=== PATIENT | male | born 1935 | race Hispanic/Latino ===

== ENCOUNTER 2017-10-16 13:02 | Emergency (ER) | payer OTHER ==
--- OUTSIDE RECORDS SUMMARY | 2017-10-16 13:05 | XMS REPORT | Clinical Summary ---
:1935 Author Organization [facility] Address [address] [place] [address] Phone Care Team Providers Name Role Phone Unavailable Primary Care Provider Unavailable Allergies Active Allergy Reactions Severity Noted Date Comments Enalapril Hives, Itching 01/16/2015 Current Medications Prescription Sig. Disp. Refills Start Date End Date Status aspirin 81 MG EC tablet Take 81 mg by Active mouth daily. atorvastatin (LIPITOR) 40 Take 40 mg by Active MG tablet mouth daily. tamsulosin (FLOMAX) 0.4 mg Take 0.4 mg by Active Cp24 24 hr capsule mouth daily. 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/07/2016 Aortic stenosis 01/19/2015 HTN (hypertension) 01/19/2015 Cancer of prostate (HCC) 01/19/2015 Asthma 01/19/2015 TIA (transient ischemic attack) 01/19/2015 HLD (hyperlipidemia) 01/19/2015 Patient is Pentecostalism 01/19/2015 Family History Medical History Relation Name Comments Asthma Father Stroke Father Seizures Mother Diabetes Sister Relation Name Status Comments Father Mother Sister Social History Tobacco Use Types Packs/Day Years Used Date Former Smoker Quit: 03/07/1972 Alcohol Use Drinks/Week oz/Week Comments Yes rarely Sex Assigned at Date Recorded Not on file Last Filed Vital Signs Not on file Plan of Treatment Health Maintenance Due Date Last Done Comments INFLUENZA VACCINE 12/05/2017 Implants Implanted Type Area Commercial Real Estate Lender Device Expiration Model / Identifier Date Serial / Lot Guzman Jayden Xt Transcatheter Heart Valve Valves N/A: GUZMAN 2015 [id number] / Implanted: Qty: 1 on 02/12/2015 by Dank Valladares MD [employer] [id number] / Results Not on fileafter 10/15/2016
[2017-10-16 13:52] LABS: Absolute Lymphocytes (CBC) 1.4 K/uL (0.7-4.9); Absolute Monocytes 0.7 K/uL (0.1-1.3); Absolute Neutrophil 5.8 K/uL (1.8-8.0); Basophils % 1.1 % (0-1.3); Eosinophils % 1.8 % (0-4.4); Hematocrit 45.4 % (39.6-49.0); Lymphocytes % 17.5 % (15.3-44.8); MCH 31.4 pg (27.0-35.0); MCV 90.5 fL (80-100); MPV 9.5 fL (7.6-11.3); Monocytes % 8.6 % (3.3-12.3); RBC Red Blood Cell Count 5.02 M/uL (4.33-5.43)
[2017-10-16 13:58] LABS: Protime INR 1.02
[2017-10-16 14:16] LABS: ALT/SGPT 17 U/L (12-78); AST/SGOT 16 U/L (15-37); Albumin 3.6 g/dL (3.4-5.0); Alkaline Phosphatase 81 U/L (45-117); BUN Blood Urea Nitrogen 15 mg/dL (7-18); Bicarbonate 28 mmol/L (21-32); Bilirubin Direct 0.2 mg/dL (0-0.2); Bilirubin Total 1.5 mg/dL (0.2-1.0); CKMB Creatine Kinase MB < 1.0 ng/mL (0.3-3.6); Creatine Phosphokinase 41 U/L (39-308); Glucose Level 119 mg/dL (74-106); Magnesium 2.1 mg/dL (1.8-2.4); NT PRO-BNP 820 pg/mL (<450); Potassium 3.9 mmol/L (3.5-5.1); Protein, Total 6.8 g/dL (6.4-8.2); Sodium Level 139 mmol/L (136-145)
--- NOTE | 2017-10-16 14:46 | RAD REPORT ---
EXAM DESCRIPTION: RAD - Chest Single View - 10/16/2017 2:20 pm CLINICAL HISTORY: Dizziness, diaphoretic, shortness of breath COMPARISON: October 10, 2016 TECHNIQUE: AP portable chest image was obtained 1409 hours . FINDINGS: No new failure, infiltrate or mass. Patient has dense calcified plaquing changes in the izaiah ng pedersen, left greater than right. Sternotomy wires are in place. Heart and vasculature are normal. No measurable pleural effusion and no pneumothorax. No gross bony abnormality seen. No acute aortic f indings suspected. IMPRESSION: Chronic pleural and parenchymal changes are present. No acute finding or significant change from October 2016.
--- NOTE | 2017-10-16 16:32 | EDPHYS ---
Physician Documentation [facility] Name: Rusty Yarbrough Age: 82 yrs Sex: Male : 1935 Arrival Date: 10/16/2017 Time: 13:05 Bed 7 Private MD: Shawn Perry E ED Physician Joe Guerrier HPI: 10/16 14:00 This 82 yrs old Male presents to ER via Ambulatory with complaints of Sweating.pm1 14:00 Patient presents to ER with complaints of sweating that started yesterday. Patient was pm1 seen by Dr. Perry Tuesday and his medications metoprolol, metformin, gabapentin, and atorvastatin were discontinued because he was told that he does not need to take them anymore. The patient's only medication is Tramadol PRN. Patient has continued to take some of his medications out of habit since Tuesday. Patient has not taken the metoprolol but has continued to take metformin, gabapentin, and atorvastatin. The family believes that his episodes of sweating might be due to hypoglycemia and have been resolved with eating. The patient ate a snack prior to coming to the ER and does not have any complaints. Patient denies any chest pain, shortness of breath, headache, or weakness. Historical: - Allergies: 13:15 Enalapril; aj1 - Home Meds: 13:15 atorvastatin 20 mg Oral tab [Active]; clopidogrel 75 mg Oral tab [Active]; aj1 cyclobenzaprine 10 mg Oral tab 1 tab 3 times per day [Active]; methocarbamol 500 mg Oral tab [Active]; metoprolol tartrate 25 mg Oral tab 1 tab 2 times per day [Active]; - PMHx: 13:15 "heart valve replacement"; Hyperlipidemia; Hypertension; Myocardial infarction; aj1 - PSHx: 13:51 Disc surgery; sv - Immunization history:: Flu vaccine status is unknown. - Social history:: Smoking status: Patient/guardian denies using tobacco. - Ebola Screening: : Patient denies travel to an Ebola-affected area in the 21 days before illness onset. ROS: 14:00 Constitutional: Negative for fever, chills, and weight loss, Eyes: Negative for injury, pm1 pain, redness, and discharge, ENT: Negative for injury, pain, and discharge, Neck: Negative for injury, pain, and swelling, Cardiovascular: Negative for chest pain, palpitations, and edema, Respiratory: Negative for shortness of breath, cough, wheezing, and pleuritic chest pain, Abdomen/GI: Negative for abdominal pain, nausea, vomiting, diarrhea, and constipation, Back: Negative for injury and pain, : Negative for injury, bleeding, discharge, and swelling, MS/Extremity: Negative for injury and deformity, Skin: Negative for injury, rash, and discoloration, Neuro: Negative for headache, weakness, numbness, tingling, and seizure. Exam: 14:00 Constitutional: This is a well developed, well nourished patient who is awake, alert, pm1 and in no acute distress. Head/Face: Normocephalic, atraumatic. Eyes: Pupils equal round and reactive to light, extra-ocular motions intact. Lids and lashes normal. Conjunctiva and sclera are non-icteric and not injected. Cornea within normal limits. Periorbital areas with no swelling, redness, or edema. ENT: Nares patent. No nasal discharge, no septal abnormalities noted. Tympanic membranes are normal and external auditory canals are clear. Oropharynx with no redness, swelling, or masses, exudates, or evidence of obstruction, uvula midline. Mucous membranes moist. Neck: Trachea midline, no thyromegaly or masses palpated, and no cervical lymphadenopathy. Supple, full range of motion without nuchal rigidity, or vertebral point tenderness. No Meningismus. Chest/axilla: Normal chest wall appearance and motion. Nontender with no deformity. No lesions are appreciated. Cardiovascular: Regular rate and rhythm with a normal S1 and S2. No gallops, murmurs, or rubs. No pulse deficits. Respiratory: Lungs have equal breath sounds bilaterally, clear to auscultation and percussion. No rales, rhonchi or wheezes noted. No increased work of breathing, no retractions or nasal flaring. Abdomen/GI: Soft, non-tender, with normal bowel sounds. No distension or tympany. No guarding or rebound. No evidence of tenderness throughout. Back: No spinal tenderness. No costovertebral tenderness. Full range of motion. Skin: Warm, dry with normal turgor. Normal color with no rashes, no lesions, and no evidence of cellulitis. MS/ Extremity: Pulses equal, no cyanosis. Neurovascular intact. Full, normal range of motion. 14:00 Neuro: Orientation: is normal, Mentation: is normal, Cerebellar function: normal finger to nose testing, Motor: is normal, Sensation: is normal, no obvious gross deficits. Vital Signs: 13:15 BP 145 / 90; Pulse 77; Resp 18; Temp 97.6; Pulse Ox 94% on R/A; Weight 87.09 kg (R); aj1 Pain 0/10; 14:07 BP 122 / 62; Pulse 72; Resp 18; Pulse Ox 97% ; sv 14:51 BP 137 / 83; Pulse 67; Resp 18; Pulse Ox 95% on R/A; dh3 15:44 BP 125 / 77; Pulse 73; Resp 19; Pulse Ox 96% ; sv 16:49 BP 128 / 76; Pulse 70; Resp 18; Pulse Ox 99% ; sv MDM: 13:26 Patient medically screened. pm1 16:28 Data reviewed: vital signs. Data interpreted: Pulse oximetry: on room air is 96 %. pm1 Interpretation: normal. Counseling: I had a detailed discussion with the patient and/or guardian regarding: the historical points, exam findings, and any diagnostic results supporting the discharge/admit diagnosis, lab results, radiology results, the need for outpatient follow up, to return to the emergency department if symptoms worsen or persist or if there are any questions or concerns that arise at home. 16:28 ED course: Patient without any symptoms of sweating during ER visit and the patient did pm1 not have any other complaints. Patient wants to go home and does not feel a need to stay in the hospital. I believe that the patient might have some mild hypoglycemia that was appropriately treated with food. Instructed the patient and family to take his medications as directed by Dr. ePrry. 10/16 13:32 Order name: Basic Metabolic Panel; Complete Time: 14:46 pm1 10/16 13:32 Order name: CBC with Diff; Complete Time: 14:46 pm1 10/16 13:32 Order name: Ckmb; Complete Time: 14:46 pm1 10/16 13:32 Order name: CPK; Complete Time: 14:46 pm1 10/16 13:32 Order name: LFT's; Complete Time: 14:46 pm1 10/16 13:32 Order name: Magnesium; Complete Time: 14:46 pm1 10/16 13:32 Order name: NT PRO-BNP; Complete Time: 14:46 pm1 10/16 13:32 Order name: PT-INR; Complete Time: 14:46 pm1 10/16 13:32 Order name: Ptt, Activated; Complete Time: 14:46 pm1 10/16 13:32 Order name: Troponin (emerg Dept Use Only); Complete Time: 14:46 pm1 10/16 13:32 Order name: XRAY Chest (1 view); Complete Time: 14:46 pm1 10/16 13:32 Order name: EKG; Complete Time: 13:33 pm1 10/16 13:46 Order name: Glucose, Ancillary Testing; Complete Time: 14:46 EDMS 10/16 15:52 Order name: Glucose, Ancillary Testing; Complete Time: 15:58 EDMS 10/16 13:31 Order name: Fingerstick Glucose; Complete Time: 13:49 pm1 10/16 13:32 Order name: Cardiac monitoring; Complete Time: 13:49 pm1 10/16 13:32 Order name: EKG - Nurse/Tech; Complete Time: 14:19 pm1 10/16 13:32 Order name: IV Saline Lock; Complete Time: 13:49 pm1 10/16 13:32 Order name: Labs collected and sent; Complete Time: 13:49 pm1 10/16 13:32 Order name: O2 Per Protocol; Complete Time: 13:49 pm1 10/16 13:32 Order name: O2 Sat Monitoring; Complete Time: 13:49 pm1 Administered Medications: No medications were administered Point of Care Testing: Blood Glucose: 13:46 Blood Glucose: 119 mg/dL; sv 15:52 Blood Glucose: 118 mg/dL; sv Ranges: Critical Glucose Levels:Adult <50 mg/dl or >400 mg/dl <40 mg/dl or >180 mg/dl Disposition: 17:53 Co-signature as Attending Physician, Joe Guerrier MD. rn Disposition: 10/16/17 16:32 Discharged to Home. Impression: Person with feared health complaint in whom no diagnosis is made - Sweating. - Condition is Stable. - Medication Reconciliation Form, Thank You Letter form. - Follow up: Emergency Department; When: As needed; Reason: Worsening of condition. Follow up: Shawn Perry MD; When: 2 - 3 days; Reason: Recheck today's complaints, Continuance of care, Re-evaluation by your physician. - Problem is new. - Symptoms have improved. Signatures: Dispatcher [employer] EDNova Curtis RN RN aj1 Caryl Chairez RN RN Joe Paulino MD MD rn Marinas, Patrick, FINANCE SPECIALIST FINANCE SPECIALIST pm1 Corrections: (The following items were deleted from the chart) 16:50 16:32 10/16/2017 16:32 Discharged to Home. Impression: Person with feared health sv complaint in whom no diagnosis is made - Sweating. Condition is Stable. Forms are Medication Reconciliation Form, Thank You Letter, Antibiotic Education, Prescription Opioid Use. Follow up: Emergency Department; When: As needed; Reason: Worsening of condition. Follow up: Shawn Perry; When: 2 - 3 days; Reason: Recheck today's complaints, Continuance of care, Re-evaluation by your physician. Problem is new. Symptoms have improved. pm1
--- NOTE | 2017-10-16 16:32 | ER ---
Nurse's Notes [facility] Name: Rusty Yarbrough Age: 82 yrs Sex: Male : 1935 Arrival Date: 10/16/2017 Time: 13:05 Bed 7 Private MD: Shawn Perry E Diagnosis: Person with feared health complaint in whom no diagnosis is made-Sweating Presentation: 10/16 13:12 Presenting complaint: Child states: He has been having episode where he is suddenly aj1 very sweaty since yesterday. Denies chest pain, denies shortness of breath, denies palpitations. States that each episode lasts 1-2 minutes and then resolves. Patient denies having any pain or shortness of breath during these episodes. Reports dizziness. Transition of care: patient was not received from another setting of care. Onset of symptoms was October 15, 2017. Risk Assessment: Do you want to hurt yourself or someone else? Patient reports no desire to harm self or others. Initial Sepsis Screen: Does the patient meet any 2 criteria? No. Patient's initial sepsis screen is negative. Does the patient have a suspected source of infection? No. Patient's initial sepsis screen is negative. Care prior to arrival: None. 13:12 Method Of Arrival: Ambulatory aj 13:12 Acuity: GAYLE 3 aj1 Triage Assessment: 13:15 General: Appears in no apparent distress. uncomfortable, Behavior is calm, cooperative, aj1 appropriate for age. Pain: Denies pain. Neuro: Level of Consciousness is awake, alert, obeys commands, Speech is normal, Facial symmetry appears normal, Reports dizziness. Cardiovascular: Reports diaphoresis, Denies chest pain, nausea, palpitations, shortness of breath, syncope, vomiting, Patient's skin is warm and dry. Respiratory: Airway is patent Respiratory effort is even, unlabored, Respiratory pattern is regular, symmetrical. Derm: Skin is pink, warm \\T\\ dry. normal. Historical: - Allergies: 13:15 Enalapril; aj1 - Home Meds: 13:15 atorvastatin 20 mg Oral tab [Active]; clopidogrel 75 mg Oral tab [Active]; aj1 cyclobenzaprine 10 mg Oral tab 1 tab 3 times per day [Active]; methocarbamol 500 mg Oral tab [Active]; metoprolol tartrate 25 mg Oral tab 1 tab 2 times per day [Active]; - PMHx: 13:15 "heart valve replacement"; Hyperlipidemia; Hypertension; Myocardial infarction; aj1 - PSHx: 13:51 Disc surgery; sv - Immunization history:: Flu vaccine status is unknown. - Social history:: Smoking status: Patient/guardian denies using tobacco. - Ebola Screening: : Patient denies travel to an Ebola-affected area in the 21 days before illness onset. Screenin:40 Abuse screen: Denies threats or abuse. Denies injuries from another. Abuse screen: sv Denies threats or abuse. Nutritional screening: No deficits noted. Tuberculosis screening: No symptoms or risk factors identified. Fall Risk None identified. Assessment: 13:40 General: Appears in no apparent distress. comfortable, well developed, Behavior is sv calm, cooperative, appropriate for age. General: Granddaughter reports she thinks that the pt's spouse gave him Metformin instead of Metoprolol yesterday and since yesterday has been having intermittent "sweating" episodes.. Pain: Denies pain. Neuro: Level of Consciousness is awake, alert, obeys commands, Oriented to person, place, time, situation, Moves all extremities. Full function Speech is normal. Cardiovascular: Patient's skin is warm and dry. Pulses are 3+ in right radial artery and left radial artery Rhythm is sinus rhythm with unifocal PVCs. Respiratory: Respiratory effort is even, unlabored, Respiratory pattern is regular, symmetrical. Derm: Skin is normal. Musculoskeletal: Range of motion: intact in all extremities. 14:08 Reassessment: Granddaughter stated that the pt's spouse gave him atorvastatin, sv gabapentin and tramadol. She states that he is not supposed to be taking atorvastatin or gabapentin. 15:52 Reassessment: Patient appears in no apparent distress at this time. No changes from sv previously documented assessment. Patient and/or family updated on plan of care and expected duration. Pain level reassessed. Patient is alert, oriented x 3, equal unlabored respirations, skin warm/dry/pink. 16:49 Reassessment: Patient appears in no apparent distress at this time. Patient and/or sv family updated on plan of care and expected duration. Pain level reassessed. Patient is alert, oriented x 3, equal unlabored respirations, skin warm/dry/pink. Vital Signs: 13:15 BP 145 / 90; Pulse 77; Resp 18; Temp 97.6; Pulse Ox 94% on R/A; Weight 87.09 kg (R); aj1 Pain 0/10; 14:07 BP 122 / 62; Pulse 72; Resp 18; Pulse Ox 97% ; sv 14:51 BP 137 / 83; Pulse 67; Resp 18; Pulse Ox 95% on R/A; dh3 15:44 BP 125 / 77; Pulse 73; Resp 19; Pulse Ox 96% ; sv 16:49 BP 128 / 76; Pulse 70; Resp 18; Pulse Ox 99% ; sv ED Course: 13:05 Patient arrived in ED. sb2 13:05 Shawn Perry MD is Private Physician. sb2 13:14 Triage completed. aj1 13:15 Arm band placed on Patient placed in an exam room. aj1 13:25 Gadiel Kellogg NP is PHCP. pm1 13:25 Joe Guerrier MD is Attending Physician. pm1 13:37 Caryl Chairez, HENRRY is Primary Nurse. sv 13:40 Patient has correct armband on for positive identification. Placed in gown. Bed in low sv position. Call light in reach. Side rails up X2. Adult w/ patient. telemetry monitor on. Pulse ox on. NIBP on. Door closed. Head of bed elevated. 13:45 Initial lab(s) drawn, by me, sent to lab. Inserted saline lock: 20 gauge in right sv antecubital area, using aseptic technique. Blood collected. Flushed right antecubital with 5 ml normal saline. 13:48 Awaiting lab results. sv 14:19 EKG done, by ED staff, reviewed by Joe Guerrier MD. hb 14:20 XRAY Chest (1 view) In Process Unspecified. EDMS 16:29 Shawn Perry MD is Referral Physician. pm1 16:50 No provider procedures requiring assistance completed. IV discontinued, intact, sv bleeding controlled, No redness/swelling at site. Pressure dressing applied. Administered Medications: No medications were administered Point of Care Testing: Blood Glucose: 13:46 Blood Glucose: 119 mg/dL; sv 15:52 Blood Glucose: 118 mg/dL; sv Ranges: Outcome: 16:32 Discharge ordered by . pm1 16:50 Discharged to home via wheelchair, with family. sv 16:50 Condition: stable 16:50 Discharge instructions given to patient, family, Instructed on discharge instructions, follow up and referral plans. Demonstrated understanding of instructions, follow-up care. 16:50 Patient left the ED. sv Signatures: Dispatcher [employer] EDNova Curtis RN RN aj1 Caryl Chairez RN RN sv Gadiel Kellogg, BLUEBERRY GROWER BLUEBERRY GROWER pm1 Yuki Aguilar RN RN Laya Lucas 3 Teresa Rosa 2 Corrections: (The following items were deleted from the chart) 14:10 14:07 Pulse 72bpm; Resp 18bpm; Pulse Ox 97%; sv sv
[2017-10-16 17:15] VITALS: TEMP 97.6
[2017-10-16 17:19] VITALS: BP 128/76; O2SAT 99
--- NOTE | 2017-10-17 05:43 | EKG ---
Test Date: 2017-10-16 Test Time: 14:13:10 Clinical Informatics Specialist: SWG MEASUREMENT RESULTS: Intervals: Rate: 68 NE: 200 QRSD: 94 QT: 362 QTc: 384 [place]: P: NE: 200 QRS: 7 T: 109 INTERPRETIVE STATEMENTS: Normal sinus rhythm with sinus arrhythmia Nonspecific T wave abnormality Abnormal ECG Compared to ECG 10/10/2016 09:44:27 Atrial premature complex(es) no longer present First degree AV block no longer present T-wave abnormality still present Electronically Signed On 10-17-17 05:42:31 CDT by Cedric Leonardo
== END 2017-10-16 16:50 | disposition home or self-care (01) ==
LOC: ER 13:02
DX: Z71.1 Person with feared health complaint in whom no diagnosis is made (principal); I10 Essential (primary) hypertension; I25.2 Old myocardial infarction; E78.5 Hyperlipidemia, unspecified; Z95.2 Presence of prosthetic heart valve; Z88.8 Allergy status to other drugs, medicaments and biological substances
CPT/HCPCS: 36415; 71045; 80048; 80076; 82550; 82553; 82962; 83735; 83880; 84484; 85025; 85610; 85730; 93005; 99284

== ENCOUNTER 2017-12-07 06:47 | Day surgery (SDC) | payer OTHER ==
--- NOTE | 2017-12-01 16:27 | RAD REPORT ---
EXAM DESCRIPTION: Gallo Arana And Vanessa (2 Views)12/01/2017 4:21 pm CLINICAL HISTORY: Preop for heart valve replacement COMPARISON: October 2017 FINDINGS: The lungs appear clear of acute infiltrate. The heart is mildly enlarged. Postsurgical changes involve the chest. Bilateral pleural calcifications are present IMPRESSION: No acute abnormalities displayed
[2017-12-01 16:55] LABS: Absolute Lymphocytes (CBC) 2.1 K/uL (0.7-4.9); Absolute Monocytes 0.5 K/uL (0.1-1.3); Absolute Neutrophil 4.2 K/uL (1.8-8.0); Basophils % 0.8 % (0-1.3); Eosinophils % 5.5 % (0-4.4); Hematocrit 46.4 % (39.6-49.0); Lymphocytes % 29.3 % (15.3-44.8); MCH 30.8 pg (27.0-35.0); MCV 92.4 fL (80-100); MPV 10.3 fL (7.6-11.3); Monocytes % 6.5 % (3.3-12.3); RBC Red Blood Cell Count 5.02 M/uL (4.33-5.43)
[2017-12-01 16:58] LABS: Protime INR 1.04
--- NOTE | 2017-12-01 22:27 | EKG ---
Test Date: 2017-12-01 Test Time: 16:08:08 Drill Grinder: GUERLINE MEASUREMENT RESULTS: Intervals: Rate: 55 IA: 256 QRSD: 100 QT: 416 QTc: 397 [place]: P: IA: 256 QRS: -10 T: 55 INTERPRETIVE STATEMENTS: Sinus bradycardia with sinus arrhythmia with 1st degree AV block Otherwise normal ECG Compared to ECG 10/16/2017 14:13:10 First degree AV block now present Sinus rhythm no longer present T-wave abnormality no longer present Electronically Signed On 12-01-17 22:26:33 CDT by Cedric Leonardo
--- OUTSIDE RECORDS SUMMARY | 2017-12-07 06:50 | XMS REPORT | Clinical Summary ---
:1935 Author Organization [facility] Address [address] [place] [address] Phone Care Team Providers Name Role Phone [...] attack) 01/19/2015 HLD (hyperlipidemia) 01/19/2015 Patient is Latter-day 01/19/2015 Family History Medical History Relation Name [...] INFLUENZA VACCINE 12/05/2017 Implants Implanted Type Area Certified Nurses Aide Device Expiration Model / Identifier Date Serial / Lot Guzman Jayden Xt Transcatheter Heart Valve Valves N/A: GUZMAN 2015 [id number] / Implanted: Qty: 1 on 02/12/2015 by Dank Valladares MD [employer] [id number] / Results Not on fileafter 12/06/2016
[2017-12-07] MEDS ORDERED: LIDOCAINE 1% MPF 30 ML VIAL ONE (07:15)
[2017-12-07] MEDS ORDERED: NA CHLORIDE 0.9% 500 ML ONE (07:15)
[2017-12-07] MEDS ORDERED: HEPA 1000U/500MLS 2,000 UNIT/1,000 ML BAG IV ONE (07:21)
[2017-12-07] MEDS ORDERED: NA CHLORIDE 0.9% 0 ML ONE (07:23)
[2017-12-07] MEDS ORDERED: ATROPINE SULF 1 MG/10 ML SYR IV ONE (07:23)
[2017-12-07] MEDS ORDERED: NA CHLORIDE 0.9% 100 ML IV ONE (07:23)
[2017-12-07] MEDS ORDERED: FENTANYL CITR 100 MCG/2 ML ONE (07:30)
[2017-12-07] MEDS ORDERED: MIDAZOLAM HCL 2 MG/2 ML INJ ONE (07:30)
[2017-12-07 10:41] VITALS: TEMP 97.7
[2017-12-07 12:45] VITALS: BP 104/65; O2SAT 92
--- NOTE | 2017-12-07 14:12 | OP ---
Surgeon: Cedric Leonardo MD Procedures: Left heart catheterization, right heart catheterization, coronary angiography. Indication: Severe aortic stenosis of a bioprosthetic aortic valve. Procedure Findings: The patient has normal coronary arteries. Left ventricular ejection fraction wa s not determined on echocardiography, it is more than 50%. His cardiac output was 3.5. The mean gra dient across the valve was 51 mmHg. The estimated aortic valve area 0.6 square cm. The right heart pressures were within normal limits to mildly elevated. PA pressure 35/16, wedge pressure 10. Right atrial pressure 10. The aortic pressure was 118/51, LV pressure 181/24. Left ventricular end-diast olic pressure mildly elevated. Procedure In Detail: The patient was brought to the cardiac lab manager in a fasting state, sedated wit h Versed and fentanyl. Prepared and draped in usual sterile fashion. Right femoral approach was use d for both artery and vein. We used lidocaine to anesthetize the skin. An 18-gauge needle to enter the right femoral artery, right femoral vein separately, each time modified Seldinger technique was u sed to place a 4-Arabic sheath in the right femoral artery and a 7-Arabic sheath in the right femoral vein. We used a [place]-Farnaz catheter. Thermodilution cardiac outputs, manometry pressure for right h eart measurements. We used a JL4 to angiogram the left ventricle. A JL4 to angiogram left coronary. JR4 to angiogram right coronary. We used a JR4 and femoral straight wire to cross the valve and me asure LV pressures. There was no LV-gram done. At the end of the procedure an angiogram was done of the right femoral artery. Adequate anatomy was seen. We did a closure using Angio-Seal. There were no complications from the procedure. KAYDEN/MACARIO Voice ID: [id number] Report ID: [id number]
== END 2017-12-07 12:30 | disposition home or self-care (01) ==
LOC: CCL 06:47
PROVIDERS: ATTEND Internal Medicine
DX: I35.0 Nonrheumatic aortic (valve) stenosis (principal); I10 Essential (primary) hypertension; E78.2 Mixed hyperlipidemia; Z95.2 Presence of prosthetic heart valve; Z87.891 Personal history of nicotine dependence
CPT/HCPCS: 36415; 71046; 80048; 85025; 85610; 85730; 93005; 93460; C1760; C1893; J2250; J3010; J0583

== ENCOUNTER 2017-12-13 13:28 | Emergency (ER) | payer OTHER ==
--- OUTSIDE RECORDS SUMMARY | 2017-12-13 13:30 | XMS REPORT | Clinical Summary ---
:1935 Author Organization [facility] Address [address] [place] [address] Phone Care Team Providers Name Role Phone [...] attack) 01/19/2015 HLD (hyperlipidemia) 01/19/2015 Patient is Alevism 01/19/2015 Family History Medical History Relation Name [...] INFLUENZA VACCINE 12/05/2017 Implants Implanted Type Area Umbrella Tipper Machine Device Expiration Model / Identifier Date Serial / Lot Guzman Jayden Xt Transcatheter Heart Valve Valves N/A: GUZMAN 2015 [id number] / Implanted: Qty: 1 on 02/12/2015 by Dank Valladares MD [employer] [id number] / Results Not on fileafter 12/12/2016
--- NOTE | 2017-12-13 14:59 | RAD REPORT ---
EXAM DESCRIPTION: Gallo Single View12/13/2017 2:38 pm CLINICAL HISTORY: Chest pain COMPARISON: November 2017 FINDINGS: The lungs appear clear of acute infiltrate. The heart is normal size. Postsurgical changes involve the chest. Calcified pleural plaques are noted. IMPRESSION: No acute abnormalities displayed
--- NOTE | 2017-12-13 15:04 | EKG ---
Test Date: 2017-12-13 Test Time: 13:39:09 Leather Goods Ii Assembler: NINA-Tien MEASUREMENT RESULTS: Intervals: Rate: 60 AR: 264 QRSD: 98 QT: 414 QTc: 414 [place]: P: 48 AR: 264 QRS: 0 T: 65 INTERPRETIVE STATEMENTS: Sinus rhythm with 1st degree AV block Otherwise normal ECG Compared to ECG 12/01/2017 16:08:08 Sinus bradycardia no longer present Sinus arrhythmia no longer present Electronically Signed On 12-13-17 15:04:13 CDT by Cedric Leonardo
[2017-12-13 15:51] LABS: ALT/SGPT 27 U/L (12-78); AST/SGOT 20 U/L (15-37); Albumin 3.3 g/dL (3.4-5.0); Alkaline Phosphatase 88 U/L (45-117); BUN Blood Urea Nitrogen 33 mg/dL (7-18); Bicarbonate 27 mmol/L (21-32); Bilirubin Direct 0.2 mg/dL (0-0.2); Bilirubin Total 0.6 mg/dL (0.2-1.0); Glucose Level 122 mg/dL (74-106); Magnesium 2.3 mg/dL (1.8-2.4); NT PRO-BNP 556 pg/mL (<450); Potassium 4.2 mmol/L (3.5-5.1); Protein, Total 6.6 g/dL (6.4-8.2); Sodium Level 143 mmol/L (136-145); Troponin (Emerg Dept Use Only) < 0.02 ng/mL (0.0-0.045)
[2017-12-13 15:52] LABS: Absolute Lymphocytes (CBC) 2.4 K/uL (0.7-4.9); Absolute Monocytes 0.6 K/uL (0.1-1.3); Absolute Neutrophil 5.1 K/uL (1.8-8.0); Basophils % 0.6 % (0-1.3); Eosinophils % 4.6 % (0-4.4); Lymphocytes % 28.2 % (15.3-44.8); MCH 31.2 pg (27.0-35.0); MCV 92.7 fL (80-100); MPV 9.8 fL (7.6-11.3); Monocytes % 7.2 % (3.3-12.3); RBC Red Blood Cell Count 4.85 M/uL (4.33-5.43)
[2017-12-13 16:38] LABS: Protime INR 1.05
--- NOTE | 2017-12-13 17:06 | ER ---
Nurse's Notes [facility] Name: Rusty Yarbrough Age: 82 yrs Sex: Male : 1935 Arrival Date: 12/13/2017 Time: 13:29 Bed 17 Private MD: Diagnosis: Chest pain, unspecified Presentation: 12/13 13:31 Presenting complaint: Patient states: episode of left-sided chest pain that lasted aa5 approximately 4 minutes yesterday. Pt denies any chest pain at this time. 13:31 Transition of care: patient was not received from another setting of care. Onset of aa5 symptoms was December 2017. Risk Assessment: Do you want to hurt yourself or someone else? Patient reports no desire to harm self or others. Initial Sepsis Screen: Does the patient meet any 2 criteria? No. Patient's initial sepsis screen is negative. Does the patient have a suspected source of infection? No. Patient's initial sepsis screen is negative. Care prior to arrival: None. 13:31 Method Of Arrival: Ambulatory aa5 13:31 Acuity: GAYLE 3 aa5 Historical: - Allergies: 13:32 Enalapril; aa5 - PMHx: 13:32 Hyperlipidemia; Hypertension; Myocardial infarction; aa5 - PSHx: 13:32 Disc surgery; Heart Valve replacement; Heart stents; aa5 - Immunization history:: Adult Immunizations unknown. - Social history:: Smoking status: Patient/guardian denies using tobacco. - Ebola Screening: : No symptoms or risks identified at this time. Screenin:07 Abuse screen: Denies threats or abuse. Denies injuries from another. Nutritional ch screening: No deficits noted. Tuberculosis screening: No symptoms or risk factors identified. Fall Risk None identified. Assessment: 15:07 General: Appears in no apparent distress. comfortable, Behavior is calm, cooperative, ch appropriate for age. Pain: Denies pain. Neuro: No deficits noted. Cardiovascular: Heart tones S1 S2 present Capillary refill < 3 seconds in bilateral fingers Clubbing of nail beds is present JVD is present bilaterally Patient's skin is warm and dry. Pulses are all present. Edema is absent. Rhythm is sinus bradycardia. Respiratory: Airway is patent Respiratory effort is even, unlabored, Breath sounds are clear bilaterally. GI: No signs and/or symptoms were reported involving the gastrointestinal system. 16:33 Reassessment: Patient appears in no apparent distress at this time. Patient and/or ch family updated on plan of care and expected duration. Pain level reassessed. Patient is alert, oriented x 3, equal unlabored respirations, skin warm/dry/pink. Patient denies pain at this time. Patient states feeling better. Patient states symptoms have improved. Vital Signs: 13:33 BP 122 / 68; Pulse 62; Resp 18 S; Temp 98.0(TE); Pulse Ox 98% on R/A; Weight 79.38 kg aa5 (R); Height 5 ft. 10 in. (177.80 cm) (R); Pain 0/10; 16:12 BP 135 / 90; Pulse 58; Resp 16; Pulse Ox 96% on R/A; mh5 16:33 BP 133 / 58; Pulse 64; Resp 18; Temp 98.3; Pulse Ox 99% on R/A; Pain 0/10; ch 13:33 Body Mass Index 25.11 (79.38 kg, 177.80 cm) aa5 ED Course: 13:29 Patient arrived in ED. as 13:31 Arm band placed on Patient placed in an exam room, on a stretcher. aa5 13:38 Wale Land MD is Attending Physician. gs 13:40 EKG completed in triage. Results shown to MD. aa5 13:41 Triage completed. aa5 13:55 EKG done, by maintenance mechanic technician. reviewed by Wale Land MD. dt2 14:35 X-ray completed. Portable x-ray completed in exam room. Patient tolerated procedure ml well. 14:35 No provider procedures requiring assistance completed. Missed attempt(s): 22 gauge in ch left in right wrist. Bleeding controlled, band aid applied, catheter tip intact. 14:35 Patient maintains SpO2 saturation greater than 95% on room air. ch 14:37 XRAY Chest (1 view) In Process Unspecified. EDMS 15:06 Erin Nieves, RN is Primary Nurse. ch 15:07 Patient has correct armband on for positive identification. Placed in gown. Bed in low ch position. Call light in reach. Side rails up X 1. phototypesetting equipment monitor on. Pulse ox on. NIBP on. Warm blanket given. 15:08 No apparent distress. Resting quietly. ch 15:10 Initial lab(s) drawn, by me, sent to lab. Inserted saline lock: 22 gauge in right aa5 forearm, using aseptic technique. Blood collected. 17:05 Cedric Leonardo MD is Referral Physician. 17:30 IV discontinued, intact, bleeding controlled, No redness/swelling at site. Pressure ch dressing applied. Administered Medications: No medications were administered Outcome: 17:06 Discharge ordered by MD. 17:30 Discharged to home ambulatory, with family. 17:30 Condition: stable 17:30 Discharge instructions given to patient, family, Instructed on discharge instructions, follow up and referral plans. medication usage, Demonstrated understanding of instructions, follow-up care, medications. 17:34 Patient left the ED. Signatures: Dispatcher [employer] EDMS Erin Nieves RN RN Mariaa Collier Melissa ml Calderon, Audri, RN RN [facility] Anshu, Yamila [facility] Wale Land MD MD gs Teague, Danielle dt2
--- NOTE | 2017-12-13 17:07 | EDPHYS ---
Physician Documentation [facility] Name: Rusty Yarbrough Age: 82 yrs Sex: Male : 1935 Arrival Date: 12/13/2017 Time: 13:29 Bed 17 Private MD: ED Physician Wale Land HPI: 12/13 16:56 This 82 yrs old Male presents to ER via Ambulatory with complaints of Chest gs Pain, Urinary Problem. 16:56 The patient or guardian reports chest pain that is located primarily in the substernal gs area. Onset: yesterday. The pain does not radiate. Associated signs and symptoms: Pertinent negatives: shortness of breath. The chest pain is described as a heaviness. Duration: The patient or guardian reports a single episode, that lasted 3 minute(s). Modifying factors: The symptoms are alleviated by nothing. the symptoms are aggravated by nothing. Severity of pain: At its worst the pain was moderate in the emergency department the pain has resolved yesterday. The patient has experienced similar episodes in the past, a few times. The patient has been recently seen by a physician: Dr. LEONARDO HAD STENT PLACED 2 WEEKS AGO. Historical: - Allergies: 13:32 Enalapril; aa5 - PMHx: 13:32 Hyperlipidemia; Hypertension; Myocardial infarction; aa5 - PSHx: 13:32 Disc surgery; Heart Valve replacement; Heart stents; aa5 - Immunization history:: Adult Immunizations unknown. - Social history:: Smoking status: Patient/guardian denies using tobacco. - Ebola Screening: : No symptoms or risks identified at this time. ROS: 16:56 : Positive for hematuria, FEWS DAYS AGO SINGULAR INCIDENT. gs 16:56 All other systems are negative. Exam: 16:56 Head/Face: Normocephalic, atraumatic. Eyes: Pupils equal round and reactive to light, gs extra-ocular motions intact. Lids and lashes normal. Conjunctiva and sclera are non-icteric and not injected. Cornea within normal limits. Periorbital areas with no swelling, redness, or edema. ENT: Nares patent. No nasal discharge, no septal abnormalities noted. Tympanic membranes are normal and external auditory canals are clear. Oropharynx with no redness, swelling, or masses, exudates, or evidence of obstruction, uvula midline. Mucous membranes moist. Neck: Trachea midline, no thyromegaly or masses palpated, and no cervical lymphadenopathy. Supple, full range of motion without nuchal rigidity, or vertebral point tenderness. No Meningismus. Chest/axilla: Normal chest wall appearance and motion. Nontender with no deformity. No lesions are appreciated. Respiratory: Lungs have equal breath sounds bilaterally, clear to auscultation and percussion. No rales, rhonchi or wheezes noted. No increased work of breathing, no retractions or nasal flaring. Abdomen/GI: Soft, non-tender, with normal bowel sounds. No distension or tympany. No guarding or rebound. No evidence of tenderness throughout. Back: No spinal tenderness. No costovertebral tenderness. Full range of motion. Skin: Warm, dry with normal turgor. Normal color with no rashes, no lesions, and no evidence of cellulitis. MS/ Extremity: Pulses equal, no cyanosis. Neurovascular intact. Full, normal range of motion. Neuro: Awake and alert, GCS 15, oriented to person, place, time, and situation. Cranial nerves II-XII grossly intact. Motor strength 5/5 in all extremities. Sensory grossly intact. Cerebellar exam normal. Normal gait. 16:56 Constitutional: The patient appears in no acute distress, alert, awake. 16:56 Cardiovascular: Rate: normal, Rhythm: regular, Pulses: no pulse deficits are appreciated, Heart sounds: murmur, systolic. 16:56 ECG was reviewed by the Attending Physician. Vital Signs: 13:33 BP 122 / 68; Pulse 62; Resp 18 S; Temp 98.0(TE); Pulse Ox 98% on R/A; Weight 79.38 kg aa5 (R); Height 5 ft. 10 in. (177.80 cm) (R); Pain 0/10; 16:12 BP 135 / 90; Pulse 58; Resp 16; Pulse Ox 96% on R/A; mh5 16:33 BP 133 / 58; Pulse 64; Resp 18; Temp 98.3; Pulse Ox 99% on R/A; Pain 0/10; ch 13:33 Body Mass Index 25.11 (79.38 kg, 177.80 cm) aa5 MDM: 14:32 Patient medically screened. 16:56 Differential diagnosis: acute myocardial infarction, coronary artery disease chest wall gs pain. Data reviewed: vital signs, nurses notes. Counseling: I had a detailed discussion with the patient and/or guardian regarding: the historical points, exam findings, and any diagnostic results supporting the discharge/admit diagnosis, lab results, radiology results, the need for outpatient follow up. Physician consultation: Cedric Leonardo MD regarding patient's condition, and will see patient in office. 12/13 13:59 Order name: Basic Metabolic Panel 12/13 13:59 Order name: CBC with Diff; Complete Time: 16:16 12/13 13:59 Order name: LFT's 12/13 13:59 Order name: Magnesium 12/13 13:59 Order name: NT PRO-BNP 12/13 13:59 Order name: PT-INR; Complete Time: 16:50 12/13 13:59 Order name: Troponin (emerg Dept Use Only); Complete Time: 16:16 12/13 13:59 Order name: XRAY Chest (1 view); Complete Time: 15:00 12/13 13:59 Order name: EKG; Complete Time: 14:00 12/13 14:00 Order name: Basic Metabolic Panel; Complete Time: 16:16 EDMS 12/13 14:00 Order name: Liver (Hepatic) Function; Complete Time: 16:16 EDMS 12/13 14:00 Order name: Magnesium; Complete Time: 16:16 EDMS 12/13 14:00 Order name: NT PRO-BNP; Complete Time: 16:16 EDMS 12/13 13:59 Order name: Cardiac monitoring; Complete Time: 15:17 12/13 13:59 Order name: EKG - Nurse/Tech; Complete Time: 15:17 12/13 13:59 Order name: IV Saline Lock; Complete Time: 15:17 12/13 13:59 Order name: Labs collected and sent; Complete Time: 15:17 12/13 13:59 Order name: O2 Per Protocol; Complete Time: 15:17 12/13 13:59 Order name: O2 Sat Monitoring; Complete Time: 15:17 gs EC:56 Rate is 60 beats/min. Rhythm is regular. ID interval is prolonged. QRS interval is gs normal. QT interval is normal. T waves are Normal. Clinical impression: Abnormal EKG without significant change. Interpreted by me. Administered Medications: No medications were administered Disposition: 12/13/17 17:06 Discharged to Home. Impression: Chest pain, unspecified. - Condition is Stable. - Discharge Instructions: Nonspecific Chest Pain. - Medication Reconciliation Form, Thank You Letter, Antibiotic Education, Prescription Opioid Use form. - Follow up: Cedric Leonardo MD; When: 2 - 3 days; Reason: Re-evaluation by your physician. Signatures: Dispatcher [employer] EDMS Erin Nieves RN RN Karyn Foley RN RN aa5 Wale Land MD MD gs Corrections: (The following items were deleted from the chart) 17:34 17:06 12/13/2017 17:06 Discharged to Home. Impression: Chest pain, unspecified. ch Condition is Stable. Forms are Medication Reconciliation Form, Thank You Letter, Antibiotic Education, Prescription Opioid Use. Follow up: Cedric Leonardo; When: 2 - 3 days; Reason: Re-evaluation by your physician. gs
[2017-12-13 18:01] VITALS: BP 133/58; TEMP 98.3; O2SAT 99
== END 2017-12-13 17:34 | disposition home or self-care (01) ==
LOC: ER 13:28
DX: R07.9 Chest pain, unspecified (principal); I10 Essential (primary) hypertension; I25.2 Old myocardial infarction; Z88.8 Allergy status to other drugs, medicaments and biological substances; Z95.2 Presence of prosthetic heart valve; Z95.818 Presence of other cardiac implants and grafts
CPT/HCPCS: 36415; 71045; 80048; 80076; 83735; 83880; 84484; 85025; 85610; 93005; 99285

== ENCOUNTER 2018-02-20 12:31 | Inpatient (IN) | payer OTHER ==
--- OUTSIDE RECORDS SUMMARY | 2018-02-20 12:32 | XMS REPORT | Clinical Summary ---
:1935 Author Organization [facility] Address [address] [place] [address] Care Team Providers Name Role Phone Provider, Unknown Primary Care Provider Unavailable Allergies No Known Allergies Medications Medication Sig Dispensed Refills Start Date End Date Status metoprolol tartrate Take 25 mg by 0 11/14/2017 Active (LOPRESSOR) 25 mg mouth 2 (two) tablet times a day. traMADol (ULTRAM) 50 Take 50 mg by 0 12/14/2017 Active mg tablet mouth every 6 (six) hours as needed. apixaban (ELIQUIS) 5 Take 1 tablet (5 180 tablet 1 12/28/2017 Active mg tablet mg total) by mouth 2 (two) times a day. Active Problems Problem Noted Date S/P aortic valve replacement with bioprosthetic valve 12/21/2017 Overview: Chronically elevated AV gradients ~ 3.3 m/s since at least 2014. Essential hypertension 12/21/2017 Encounters Date Type Specialty Care Team Description 01/04/2018 Orders Only Cardiology Therese, Nonrheumatic aortic valve stenosis (Primary Dx); KAYE Child S/P AVR 12/28/2017 Telephone Cardiology Jacey pharm phone number Luis Stephen MD 12/28/2017 Refill Cardiology Jacey Med Refill Luis Stephen MD 12/22/2017 Telephone Cardiology Jacey Pt to start eliquis Luis Stephen, 5mg bid and have MD cta in 3 months. 12/21/2017 Telephone Cardiology lissy Garcia on CTA [place] 12/20/2017 Multidisciplinary Visit Cardiology Camilo Mariheumatic aortic valve stenosis (Primary Dx); Luis H., S/P aortic valve replacement with bioprosthetic valve; Essential hypertension 12/20/2017 Office Visit Cardiovascular Elia Cortes MD 12/20/2017 Hospital Encounter Procedural Carlos, Nonrheumatic aortic Cardiology Elia valve stenosis MD Donta 12/20/2017 Hospital Encounter Procedural Carlos, Cardiology Elia Longo MD 12/08/2017 Orders Only Cardiovascular Rachael Bentley, Nonrheumatic aortic valve stenosis (Primary Dx); RN Preoperative respiratory examination after 02/19/2017 Family History Medical History Relation Name Comments Heart attack Father Relation Name Status Comments Father Mother Social History Tobacco Use Types Packs/Day Years Used Date Never Smoker Smokeless Tobacco: Never Used Alcohol Use Drinks/Week oz/Week Comments No Sex Assigned at Date Recorded Not on file Job Start Date Occupation Industry Not on file Not on file Not on file Travel History Travel Start Travel End No recent travel history available. Last Filed Vital Signs Vital Sign Reading Time Taken Blood Pressure 162/69 12/20/2017 2:05 PM CDT Pulse 40 12/20/2017 2:05 PM CDT Temperature 36.3 C (97.4 F) 12/20/2017 2:05 PM CDT Respiratory Rate 14 12/20/2017 2:05 PM CDT Oxygen Saturation - - Inhaled Oxygen Concentration - - Weight 79.4 kg (175 lb) 12/20/2017 2:05 PM CDT Height 175.3 cm (5' 9") 12/20/2017 2:05 PM CDT Body Mass Index 25.84 12/20/2017 2:05 PM CDT Plan of Treatment Date Type Specialty Care Team Description 03/21/2018 Multidisciplinary Visit Cardiology Luis Mari MD [address] [facility] [address] [place] [address] [phone] 06/20/2018 Multidisciplinary Visit Cardiology Luis Mari MD [address] [facility] [address] [place] [address] Health Maintenance Due Date Last Done Comments SHINGLES VACCINES (1 of 2) 1983 PNEUMOCOCCAL POLYSACCHARIDE VACCINE AGE 65 AND OVER 1998 PNEUMOCOCCAL-13 1998 INFLUENZA VACCINE 10/05/2017 Procedures Procedure Name Priority Date/Time Associated Diagnosis Comments ECG 12-LEAD Routine 12/20/2017 2:04 Nonrheumatic aortic Results for this PM CDT valve stenosis procedure are in the results section. CV CTA TAVR WORKUP Routine 12/20/2017 1:34 Nonrheumatic aortic Results for this (CTA CORONARY,CTA PM CDT valve stenosis procedure are in THORACIC AORTA,CTA the results ABDOMEN PELVIS) W section. CONTRAST POC CREATININE Routine 12/20/2017 12:39 Results for this PM CDT procedure are in the results section. ESTIMATED GFR Routine 12/20/2017 12:39 Results for this PM CDT procedure are in the results section. ECHOCARDIOGRAM 2D Routine 12/20/2017 11:52 Results for this COMPLETE W MMODE AM CDT procedure are in SPECTRAL COLOR DOPPLER the results (03964) section. after 02/19/2017 Results ECG 12 lead (12/20/2017 2:04 PM CDT) Ventricular rate 70 [facility] Atrial rate 70 [facility] IL interval 178 [facility] QRSD interval 100 [facility] QT interval 414 [facility] QTC interval 447 [facility] P axis 1 42 [facility] QRS axis 1 -7 [facility] T wave axis 14 [facility] EKG impression Normal sinus rhythm-Normal ECG-No previous [facility] M[facility] ECGs available- Performing Organization Address City/State/[facility] Phone Number [facility] [address] [place] [address] tavr workup (cta coronary,cta thoracic aorta,cta abdomen pelvis) w contrast (12/20/2017 1:34 PM CDT) Narrative Performed At [facility] Nuclear Cardiology and Cardiac CT [address] [place] [address] CTA TAVR Protocol Pat.Name:Pretty STONE.ID:[id number] .Date: 12/20/2017Refer.MD:ELIA CORTES MD Exam Time: 12:37:00 PM Study Type:CTA TAVR Protocol Height:69inWeight: 180lb BSA: 1.98 m2 DOBAge:1935,82Y Sex: MALEBP:152/70 HR:65 bpm Nuclear Tech:RT María(R)(CT) Pat. Stat.:Outpatient CPT - 4: TAVR w Coronaries [id number] Nuclear Event ID:[id number] Order ID:[id number] Reason for Study:TAVR workup Procedures:CT Prospective (phases), CT Flash mode Race:C SUMMARY: Technique: IV contrast was administered and sequential 0.[address] cuts were obtained through the chest using the Siemens Somatom Force CT scanner. Post-processing and 3D reconstruction were done using the [employer] workstation. Interactive image viewing and volumetric display and analysis were also performed. 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 Left anterior descending (LAD): A normal sized 3.8mm artery which wraps around the apex and gives off three diagonal branches. No significantatherosclerotic plaque present. The first diagonal is a 1.8 mm artery which has no significant atherosclerotic plaque present. The second diagonal is a 1.5 mm artery which has no significant atherosclerotic plaque present. The third diagonal is a 1.0 mm artery which has no significant atherosclerotic plaque present. 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 Left circumflex: A normal sized 3.5 mm nondominant artery which arises normally from the left main and gives off two major obtuse marginal arteries before terminating in the AV groove. No significant atherosclerotic plaque present. The first obtuse marginal is a 2.2 mm artery which has no significant atherosclerotic plaque present. The second obtuse marginal is a 2.2 mm bifurcating artery which has no significant atherosclerotic plaque present. Right coronary artery: A normal sized 3.7 mm dominant artery which arises normally from the right sinus of Valsalva and gives off several right ventricular branches, a posterolateral branch and the posterior descending artery. No significantatherosclerotic plaque present. The posterior descending is a 3.0 mm artery which has no significant atherosclerotic plaque present. The posterolateral is a 1.7 mm artery which has no significant atherosclerotic plaque present. Stents: None. Bypass Grafts: None. Pulmonary Arteries: Normal pulmonary artery sizes with no proximal thrombus identified. Left Atrial and Pulmonary Vein Dimensions: Left atrial size (A-P diameter) 4.5 cm. Normal PV anatomy. Left superior PV14 mm. Left inferior PV18 mm. Right superior PV15 mm. Right inferior PV14 mm. There is no evidence of the left atrial appendage clot. Left Ventricular Valve Morphology/Function: LV septal wall thickness 15 mm. Moderate LVH. LV end-diastolic volume 75 ml. LV end-systolic volume 46 ml. LVEF39 %. There is a bio-prosthetic aortic valve without evidence of dehiscence or central aortic regurgitation. The noncoronary cusp is restricted and does not open fully in systole. 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 There is a low attenuation mass along the noncoronary and left cusp (HU 70-90) suggestive of thrombus. Mitral valve is normal without evidence of stenosis or regurgitation. Right Ventricular Morphology/Function: RV end-diastolic volume 137 ml. RV end-systolic volume 74 ml. RVEF 46 % Pericardium: No pericardium effusion or pericardial thickening. Thoracic Aortic Dimensions: No aortic aneurysm or dissection is seen. Aortic root3.8 cm. Sinotubular junction 3.0 cm. Mid ascending thoracic aorta 3.7 cm. Distal ascending thoracic aorta 3.3 cm. Aortic arch 2.7 cm.There is normal takeoff of the great vessels and no significant stenosis in the proximal visualized segments. Aortic Isthmus 2.7 cm. Descending thoracic aorta 2.9 cm. Upper abdominal Aorta: 2.5 cm with mild calcified and non-calcified atherosclerotic plaque. Celiac trunk: 6 mm with no significant stenosis. Superior mesenteric artery: 8 mm with no significant stenosis. Right renal artery: 6 mm with no significant stenosis. Left renal artery: 6 mm with no significant stenosis. Inferior mesenteric artery: 4 mm with no significant stenosis. Infrarenal aorta: 1.7 cm with mild calcified and non-calcified atherosclerotic plaque. TAVR Report Calcified Aorta: Mild Characterization of Aortic Root: Major aortic annulus diameter (systole): 32 mm Perpendicular minor aortic annulus diameter (systole): 26 mm Aortic annulus perimeter (systole): 93 mm Sinus of Valsalva height left coronary (diastole): 11 mm Sinus of Valsalva height right coronary (diastole): 16 mm Sinus of Valsalva diameter left coronary (diastole): 38 mm Sinus of Valsalva diameter non-coronary (diastole): 36 mm Sinus of Valsalva diameter right (diastole): 37 mm Maximum ascending aorta diameter at 40mm above annulus (diastole): 37 mm Aortic Root Angulation (diastole): 43 degrees Abdominal Aortic Aneurysm: No Thoracic Aortic Aneurysm: No Characterization of access vessels: Right Common Iliac: Minimum lumen diameter: 11 mm Percent stenosis: None Tortuosity: No Calcification: Mild Right External Iliac: Minimum lumen diameter: 8 mm Percent stenosis: None Tortuosity: No Calcification: No Right Femoral: Minimum lumen diameter: 6.5 mm Percent stenosis: None Tortuosity: Mild Calcification: Mild Left Common Iliac:Minimum lumen diameter: 10 mm Percent stenosis: None Tortuosity: No Calcification: Mild Left External Iliac: Minimum lumen diameter: 8 mm Percent stenosis: None Tortuosity: No Calcification: No Left Femoral: Minimum lumen diameter: 8 mm Percent stenosis: None Tortuosity: No Calcification: Mild Aortic Bifurcation Left Lower Extremity Left internal iliac is a 7 mm artery which has mild calcified atherosclerotic plaque present but with no significant stenosis. Left superficial femoral is a 6 mm artery which has mild calcified and non-calcified atherosclerotic plaque present but with no significant stenosis. Right Lower Extremity Right internal iliac is a 8 mm artery which has mild calcified atherosclerotic plaque present but with no significant stenosis. Right superficial femoral is a 5 mm artery which has no significant atherosclerotic plaque present. Non-Cardiac Findings: Sternotomy wires noted. Diffuse pleural calcifications bilaterally consistent with previous asbestos exposure. Left lower lobe calcified granuloma. Mild bilateral renal atrophy. Left simple renal cyst (14 HU) Bosniak class 1. L1 compression fracture. Small hiatal hernia. CONCLUSION CT coronary angiography shows no significant coronary atherosclerosis or coronary artery stenosis. There is a bio-prosthetic aortic valve without evidence of dehiscence or central aortic regurgitation.The noncoronary cusp is restricted and does not open fully in systole. 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 There is a low attenuation mass along the noncoronary and left cusp (HU 70-90) suggestive of thrombus. 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 Vascular measurements as noted above. STUDY QUALITY The study quality is good. COMMENTS None. The above report was based on a dedicated Cardiovascular CTA Protocol and interpreted by a Sports Information Director.Should a more comprehensive assessment of non-cardiovascular findings be desired, please consult a radiologist.These images are available in the [facility] [employer] PACS system. Signed 12/21/2017 04:43 PM Reid Lees MD Procedure Note Interface, Radiology Results In - 12/21/2017 6:15 PM CDT Nuclear Cardiology and Cardiac CT [address] [place] [address] CTA TAVR Protocol Pat.Name: TREV STONE Pat.ID: [id number] .Date: 12/20/2017 Refer.MD: ELIA CORTES MD Exam Time: 12:37:00 PM Study Type:CTA TAVR Protocol Height: 69in Weight: 180lb BSA: 1.98 m2 Age: 10 1935,82Y Sex: MALE BP: 152/70 HR: 65 bpm Nuclear Tech:RT María(R)(CT) Pat. Stat.:Outpatient CPT - 4: TAVR w Coronaries [id number] Nuclear Event ID:[id number] Order ID: [id number] Reason for Study:TAVR workup Procedures:CT Prospective (phases), CT Flash mode Race: C SUMMARY: Technique: IV contrast was administered and sequential 0.[address] cuts were obtained through the chest using the Siemens Somatom Force CT scanner. Post-processing and 3D reconstruction were done using the [employer] workstation. Interactive image viewing and volumetric display and analysis were also performed. 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 Left anterior descending (LAD): A normal sized 3.8mm artery which wraps around the apex and gives off three diagonal branches. No significant atherosclerotic plaque present. The first diagonal is a 1.8 mm artery which has no significant atherosclerotic plaque present. The second diagonal is a 1.5 mm artery which has no significant atherosclerotic plaque present. The third diagonal is a 1.0 mm artery which has no significant atherosclerotic plaque present. 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 Left circumflex: A normal sized 3.5 mm nondominant artery which arises normally from the left main and gives off two major obtuse marginal arteries before terminating in the AV groove. No significant atherosclerotic plaque present. The first obtuse marginal is a 2.2 mm artery which has no significant atherosclerotic plaque present. The second obtuse marginal is a 2.2 mm bifurcating artery which has no significant atherosclerotic plaque present. Right coronary artery: A normal sized 3.7 mm dominant artery which arises normally from the right sinus of Valsalva and gives off several right ventricular branches, a posterolateral branch and the posterior descending artery. No significant atherosclerotic plaque present. The posterior descending is a 3.0 mm artery which has no significant atherosclerotic plaque present. The posterolateral is a 1.7 mm artery which has no significant atherosclerotic plaque present. Stents: None. Bypass Grafts: None. Pulmonary Arteries: Normal pulmonary artery sizes with no proximal thrombus identified. Left Atrial and Pulmonary Vein Dimensions: Left atrial size (A-P diameter) 4.5 cm. Normal PV anatomy. Left superior PV14 mm. Left inferior PV18 mm. Right superior PV15 mm. Right inferior PV14 mm. There is no evidence of the left atrial appendage clot. Left Ventricular Valve Morphology/Function: LV septal wall thickness 15 mm. Moderate LVH. LV end-diastolic volume 75 ml. LV end-systolic volume 46 ml. LVEF39 %. There is a bio-prosthetic aortic valve without evidence of dehiscence or central aortic regurgitation. The noncoronary cusp is restricted and does not open fully in systole. 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 There is a low attenuation mass along the noncoronary and left cusp (HU 70-90) suggestive of thrombus. Mitral valve is normal without evidence of stenosis or regurgitation. Right Ventricular Morphology/Function: RV end-diastolic volume 137 ml. RV end-systolic volume 74 ml. RVEF 46 % Pericardium: No pericardium effusion or pericardial thickening. Thoracic Aortic Dimensions: No aortic aneurysm or dissection is seen. Aortic root 3.8 cm. Sinotubular junction 3.0 cm. Mid ascending thoracic aorta 3.7 cm. Distal ascending thoracic aorta 3.3 cm. Aortic arch 2.7 cm. There is normal takeoff of the great vessels and no significant stenosis in the proximal visualized segments. Aortic Isthmus 2.7 cm. Descending thoracic aorta 2.9 cm. Upper abdominal Aorta: 2.5 cm with mild calcified and non-calcified atherosclerotic plaque. Celiac trunk: 6 mm with no significant stenosis. Superior mesenteric artery: 8 mm with no significant stenosis. Right renal artery: 6 mm with no significant stenosis. Left renal artery: 6 mm with no significant stenosis. Inferior mesenteric artery: 4 mm with no significant stenosis. Infrarenal aorta: 1.7 cm with mild calcified and non-calcified atherosclerotic plaque. TAVR Report Calcified Aorta: Mild Characterization of Aortic Root: Major aortic annulus diameter (systole): 32 mm Perpendicular minor aortic annulus diameter (systole): 26 mm Aortic annulus perimeter (systole): 93 mm Sinus of Valsalva height left coronary (diastole): 11 mm Sinus of Valsalva height right coronary (diastole): 16 mm Sinus of Valsalva diameter left coronary (diastole): 38 mm Sinus of Valsalva diameter non-coronary (diastole): 36 mm Sinus of Valsalva diameter right (diastole): 37 mm Maximum ascending aorta diameter at 40mm above annulus (diastole): 37 mm Aortic Root Angulation (diastole): 43 degrees Abdominal Aortic Aneurysm: No Thoracic Aortic Aneurysm: No Characterization of access vessels: Right Common Iliac: Minimum lumen diameter: 11 mm Percent stenosis: None Tortuosity: No Calcification: Mild Right External Iliac: Minimum lumen diameter: 8 mm Percent stenosis: None Tortuosity: No Calcification: No Right Femoral: Minimum lumen diameter: 6.5 mm Percent stenosis: None Tortuosity: Mild Calcification: Mild Left Common Iliac: Minimum lumen diameter: 10 mm Percent stenosis: None Tortuosity: No Calcification: Mild Left External Iliac: Minimum lumen diameter: 8 mm Percent stenosis: None Tortuosity: No Calcification: No Left Femoral: Minimum lumen diameter: 8 mm Percent stenosis: None Tortuosity: No Calcification: Mild Aortic Bifurcation Left Lower Extremity Left internal iliac is a 7 mm artery which has mild calcified atherosclerotic plaque present but with no significant stenosis. Left superficial femoral is a 6 mm artery which has mild calcified and non-calcified atherosclerotic plaque present but with no significant stenosis. Right Lower Extremity Right internal iliac is a 8 mm artery which has mild calcified atherosclerotic plaque present but with no significant stenosis. Right superficial femoral is a 5 mm artery which has no significant atherosclerotic plaque present. Non-Cardiac Findings: Sternotomy wires noted. Diffuse pleural calcifications bilaterally consistent with previous asbestos exposure. Left lower lobe calcified granuloma. Mild bilateral renal atrophy. Left simple renal cyst (14 HU) Bosniak class 1. L1 compression fracture. Small hiatal hernia. CONCLUSION CT coronary angiography shows no significant coronary atherosclerosis or coronary artery stenosis. There is a bio-prosthetic aortic valve without evidence of dehiscence or central aortic regurgitation.The noncoronary cusp is restricted and does not open fully in systole. 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 There is a low attenuation mass along the noncoronary and left cusp (HU 70-90) suggestive of thrombus. 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 Vascular measurements as noted above. STUDY QUALITY The study quality is good. COMMENTS None. The above report was based on a dedicated Cardiovascular CTA Protocol and interpreted by a Sports Information Director. Should a more comprehensive assessment of non-cardiovascular findings be desired, please consult a radiologist. These images are available in the [facility] [employer] PACS system. Signed 12/21/2017 04:43 PM Reid Lees MD Performing Organization Address [facility]/Zipcode Phone Number [facility] [address] [place] [address] Estimated GFR (12/20/2017 12:39 PM CDT) Estimated GFR 82 mL/min/1.73 m2 [facility] DEPARTMENT OF Comment: PATHOLOGY AND GENOMIC CatergoryUnitsInterpretation MEDICINE G1 >=90 Normal or high G2 60-89Mildly decreased N4d64-39Iatwwz to moderately decreased G3h02-89Efybbhaldw to severely decreased G4 15-29Severely decreased G5 <15Kidney failure The eGFR was calculated using the Chronic Kidney Disease Epidemiology Collaboration (CKD-EPI) equation. Interpretation is based on recommendations of the National Kidney Foundation-Kidney Disease Outcomes Quality Initiative (NKF-KDOQI) published in 2014. Specimen Blood Performing Organization Address [facility]/Zipcode Phone Number [facility] DEPARTMENT OF PATHOLOGY AND [address] [place] [address] GENOMIC MEDICINE POC creatinine (12/20/2017 12:39 PM CDT) POC creatinine 0.8 0.7 - 1.2 mg/dl [facility] DEPARTMENT OF PATHOLOGY Comment: AND GENOMIC MEDICINE Meter ID: [id number] Police Stenographer: Guille Flores Specimen Blood Performing Organization Address City/State/Zipcode Phone Number [facility] DEPARTMENT OF PATHOLOGY AND [address] [place] [id number] [facility] Echocardiogram complete w contrast and 3D if needed (12/20/2017 11:52 AM CDT) Narrative Performed At [facility]ocardiography Report [id number] [facility] [address], [place] [address] Pat.Name:Pretty STONE.ID:[id number] .Date: 12/20/2017Refer.MD:ELIA CORTES MD Exam Time: 10:34:00 AM Study Type:Routine Echo Height:68inWeight: 175lb BSA: 1.93 m2 DOBAge:1934,82Y Sex: MALEBP: 138/64 HR:55 bpmSonogrphr: Kmi Feldman RDCS Pat. Stat.:OutpatientStudy Status:Final Echo Event ID:[id number] Order ID:[id number] Reason for Study:AORTIC VALVE STENOSIS Procedures:2D Echo, Colorflow Doppler, Intravenous Optison Contrast Race: SUMMARY: LV EF is hyperdynamic. Diastolic dysfunction Grade I (Mild): Impaired relaxation with normal LV filling pressures. Stable appearing Bioprosthetic aortic valve. Surgical Prosthetic AV Doppler velocity index is 0.35 (normal>0.25). No significant change in Aortic valve peak velocities from 2015. Suspect PPM given indexed TAYO of < 0.65 FINDINGS: LV: LV size is normal. Concentric left ventricular remodeling. LVEF is normal. Overall wall motion is normal. Estimated EFis 65-69% RV: RV size is normal. Unable to assess RV systolic function. LA: LA volume is mildly enlarged. RA: RA volume is difficult to assess. AO: Aortic root diameter is normal. LUIS ENRIQUE: No pericardial effusion. AV: Bioprosthetic aortic valve. Surgical Prosthetic AV Doppler velocityindex is 0.35 (normal>0.25). MV: No structural MV abnormalities noted. PV: Pulmonic valve not well seen. TV: No structural TV abnormalities noted. Carcamo: Hepatic vein pressure is normal, RA pressure < 5mmHg. Diastolicdysfunction Grade I (Mild): Impaired relaxation withnormal LV filling pressures. Other:Insufficient TR jet to estimate PA systolic pressure. MEASUREMENTS: 2D Parasternal [place] LA Ds4.2 cmLV%fs 30.9 % Ao An2.2 cmIVSd 0.9 cm Ao Rtd 2.9 cmIndex 1.5 cm/m LVPWd0.9 cm LVOT 2.1 cm LV Acbz217.6 g(122-174) LVIDd5.1 cmIndex 2.7 cm/m LVM Index 82.2 g/m2 LVIDs3.5 cmRWT 0.4 LA Sng Plane LA Area 21.6 cm2(8.8-23.4) LA Vol68.3 ml Index35.4 ml/m LA LngAx 5.6 cm DOPPLER AV For Flow/TAYO AV pkVel 332.3 cm/s (100-170) AV AC/ET 0.3 AV mnVel 211.6 cm/Erica TVI 65.8 cm AV pkPG 44.2 mmHgAVpkAcRt 4936.1 cm/s2 AV Mean G 22 mmHgAV DeRt 1068.7 cm/s2 AV AC 97 msec (83-118) AV Area1.2 cm2(3-5) AV ET311 msec LVOT For Flow LVOT Area3.5 cm2 LVOT SV 81.5 ml LVOTpkVel 81.8 cm/sHR 52.8 bpm LVOTpkPG 2.7 mmHgLVOT CO 4.3 l/min LVOTmnPG 1.2 mmHgLVOT CI 2.2 l/m/m2 LVOT TVI23.5 cm Signed 12/21/2017 02:43 PM Cheyenne Sandoval MD Procedure Note Interface, Radiology Results In - 12/21/2017 2:47 PM CDT Echocardiography Report [address] [place] [address] Pat.Name: TREV STONE Pat.ID: [id number] St.Date: 12/20/2017 Refer.MD: ELIA CORTES MD Exam Time: 10:34:00 AM Study Type:Routine Echo Height: 68in Weight: 175lb BSA: 1.93 m2 Age: 10 1935,82Y Sex: MALE BP: 138/64 HR: 55 bpm Sonogrphr: Kim Feldman RDCS Pat. Stat.:Outpatient Study Status:Final Echo Event ID:[id number] Order ID: [id number] Reason for Study:AORTIC VALVE STENOSIS Procedures:2D Echo, Colorflow Doppler, Intravenous Optison Contrast Race: SUMMARY: LV EF is hyperdynamic. Diastolic dysfunction Grade I (Mild): Impaired relaxation with normal LV filling pressures. Stable appearing Bioprosthetic aortic valve. Surgical Prosthetic AV Doppler velocity index is 0.35 (normal>0.25). No significant change in Aortic valve peak velocities from 2015. Suspect PPM given indexed TAYO of < 0.65 FINDINGS: LV: LV size is normal. Concentric left ventricular remodeling. LV EF is normal. Overall wall motion is normal. Estimated EF is 65-69% RV: RV size is normal. Unable to assess RV systolic function. LA: LA volume is mildly enlarged. RA: RA volume is difficult to assess. AO: Aortic root diameter is normal. LUIS ENRIQUE: No pericardial effusion. AV: Bioprosthetic aortic valve. Surgical Prosthetic AV Doppler velocity index is 0.35 (normal>0.25). MV: No structural MV abnormalities noted. PV: Pulmonic valve not well seen. TV: No structural TV abnormalities noted. Carcamo: Hepatic vein pressure is normal, RA pressure < 5mmHg. Diastolic dysfunction Grade I (Mild): Impaired relaxation with normal LV filling pressures. Other: Insufficient TR jet to estimate PA systolic pressure. MEASUREMENTS: 2D Parasternal Long [place] LA Ds 4.2 cm LV%fs 30.9 % Ao An 2.2 cm IVSd 0.9 cm Ao Rtd 2.9 cm Index 1.5 cm/m LVPWd 0.9 cm LVOT 2.1 cm LV Mass 158.6 g (122-174) LVIDd 5.1 cm Index 2.7 cm/m LVM Index 82.2 g/m2 LVIDs 3.5 cm RWT 0.4 LA Sng Plane LA Area 21.6 cm2 (8.8-23.4) LA Vol 68.3 ml Index 35.4 ml/m LA LngAx 5.6 cm DOPPLER AV For Flow/TAYO AV pkVel 332.3 cm/s (100-170) AV AC/ET 0.3 AV mnVel 211.6 cm/s AV TVI 65.8 cm AV pkPG 44.2 mmHg AVpkAcRt 4936.1 cm/s2 AV Mean G 22 mmHg AV DeRt 1068.7 cm/s2 AV AC 97 msec (83-118) AV Area 1.2 cm2 (3-5) AV ET 311 msec LVOT For Flow LVOT Area 3.5 cm2 LVOT SV 81.5 ml LVOTpkVel 81.8 cm/s HR 52.8 bpm LVOTpkPG 2.7 mmHg LVOT CO 4.3 l/min LVOTmnPG 1.2 mmHg LVOT CI 2.2 l/m/m2 LVOT TVI 23.5 cm Signed 12/21/2017 02:43 PM Cheyenne Sandoval MD Performing Organization Address City/State/Zipcode Phone Number [facility] [address] [place] [address] after 02/19/2017 Insurance Payer Benefit Plan / Group Subscriber ID Type Phone Address [facility] xxxxxxxxx O Advance Directives Patient has advance care planning documents on file. For more information, please contact:Chet Marquez[address] [place] [address]
--- OUTSIDE RECORDS SUMMARY | 2018-02-20 12:33 | XMS REPORT | Clinical Summary ---
:1935 Author Organization [facility] Address [address] [place] [id number] Care Team Providers Name Role Phone Ike Hilario MD Primary Care Provider Unavailable Allergies Active Allergy Reactions Severity Noted Date Comments Enalapril Hives, Itching 01/16/2015 Medications Medication Sig Dispensed Refills Start Date End Date Status aspirin 81 MG EC tablet Take 81 mg by 0 Active mouth daily. atorvastatin (LIPITOR) Take 40 mg by 0 Active 40 MG tablet mouth daily. tamsulosin (FLOMAX) 0.4 Take 0.4 mg by 0 Active mg Cp24 24 hr capsule mouth daily. 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 Last Filed Vital Signs Not on file Plan of Treatment Health Maintenance Due Date Last Done Comments INFLUENZA VACCINE 12/05/2017 Implants Implanted Type Area [employer] Shift Lead Device Shelf Model / Identifier Expiration Serial / Date Lot [place] Jayden Xt Transcatheter Heart Valve Valves N/A: ESP[place]ÑA 2015 [id number] / Implanted: Qty: 1 on 02/12/2015 by Dank Valladares MD [facility] [employer] [id number] / Results Not on fileafter 02/19/2017 Insurance Payer Benefit Plan / Group Subscriber ID Type Phone Address [employer] - MEDICARE AARP/MEDICARE COMPLETE xxxxxxxxx MGD CARE Advance Directives Patient has advance care planning documents, and code status on file. For more information, please contact:[address] [phone] Code Status Date Activated Date Inactivated Comments Full Code 02/12/2015 5:34 AM 02/13/2015 6:46 PM This code status was determined by: Patient Full Code 02/07/2015 1:48 PM 02/07/2015 2:21 PM This code status was determined by: Patient
[2018-02-20 13:00] LABS: Absolute Monocytes 0.7 K/uL (0.1-1.3); Absolute Neutrophil 10.1 K/uL (1.8-8.0); Basophils % 0.6 % (0-1.3); Eosinophils % 0.3 % (0-4.4); Hematocrit 32.8 % (39.6-49.0); Lymphocytes % 15.4 % (15.3-44.8); MPV 10.6 fL (7.6-11.3); Monocytes % 5.4 % (3.3-12.3); RBC Red Blood Cell Count 3.58 M/uL (4.33-5.43)
[2018-02-20] MEDS ORDERED: NA CHLORIDE 0.9% 1,000 ML ONE ×2 (13:07→14:43)
[2018-02-20 13:18] LABS: Albumin 3.2 g/dL (3.4-5.0); Bilirubin Direct 0.1 mg/dL (0-0.2); Bilirubin Total 0.6 mg/dL (0.2-1.0); Potassium 4.3 mmol/L (3.5-5.1); Protein, Total 5.6 g/dL (6.4-8.2)
--- NOTE | 2018-02-20 13:55 | EDPHYS ---
Physician Documentation [facility] Name: Rusty Yarbrough Age: 83 yrs Sex: Male : 1935 Arrival Date: 02/20/2018 Time: 12:32 Bed 3 Private MD: ED Physician Wale Land HPI: 02/20 14:07 This 83 yrs old Male presents to ER via EMS with complaints of Diarrhea. gs 14:07 The patient presents to the emergency department with nausea, diarrhea. Onset: The gs symptoms/episode began/occurred 3 day(s) ago. Possible causes: unknown. The symptoms are aggravated by nothing. The symptoms are alleviated by nothing. Associated signs and symptoms: Pertinent positives: abdominal pain. Severity of symptoms: At their worst the symptoms were moderate in the emergency department the symptoms are unchanged. The patient has not experienced similar symptoms in the past. The patient has not recently seen a physician. Historical: - Allergies: 13:10 Enalapril; jl7 - Home Meds: 13:10 metoprolol tartrate 25 mg Oral tab 1 tab 2 times per day [Active]; jl7 - PMHx: 13:10 "heart valve replacement"; Hyperlipidemia; Hypertension; Myocardial infarction; jl7 - Immunization history:: Adult Immunizations unknown. - Social history:: The patient lives at home, Smoking status: unknown. - Ebola Screening: : No symptoms or risks identified at this time. ROS: 14:07 All other systems are negative. gs Exam: 14:07 Head/Face: Normocephalic, atraumatic. Eyes: Pupils equal round and reactive to light, gs extra-ocular motions intact. Lids and lashes normal. Conjunctiva and sclera are non-icteric and not injected. Cornea within normal limits. Periorbital areas with no swelling, redness, or edema. ENT: Nares patent. No nasal discharge, no septal abnormalities noted. Tympanic membranes are normal and external auditory canals are clear. Oropharynx with no redness, swelling, or masses, exudates, or evidence of obstruction, uvula midline. Mucous membranes moist. Neck: Trachea midline, no thyromegaly or masses palpated, and no cervical lymphadenopathy. Supple, full range of motion without nuchal rigidity, or vertebral point tenderness. No Meningismus. Chest/axilla: Normal chest wall appearance and motion. Nontender with no deformity. No lesions are appreciated. Respiratory: Lungs have equal breath sounds bilaterally, clear to auscultation and percussion. No rales, rhonchi or wheezes noted. No increased work of breathing, no retractions or nasal flaring. Back: No spinal tenderness. No costovertebral tenderness. Full range of motion. Skin: Warm, dry with normal turgor. Normal color with no rashes, no lesions, and no evidence of cellulitis. MS/ Extremity: Pulses equal, no cyanosis. Neurovascular intact. Full, normal range of motion. Neuro: Awake and alert, GCS 15, oriented to person, place, time, and situation. Cranial nerves II-XII grossly intact. Motor strength 5/5 in all extremities. Sensory grossly intact. Cerebellar exam normal. Normal gait. 14:07 Constitutional: The patient appears alert, awake. 14:07 Cardiovascular: Rate: tachycardic, Rhythm: regular, Pulses: no pulse deficits are appreciated. 14:07 ECG was reviewed by the Attending Physician. 14:07 Abdomen/GI: Palpation: mild abdominal tenderness, in all quadrants, rebound tenderness, is not appreciated, Rectal exam: Stool: guaiac positive, black, the exam is chaperoned by an associate technician. Vital Signs: 12:33 BP 135 / 64; Pulse 108; Resp 18 S; Temp 98.5(O); Pulse Ox 97% on R/A; Weight 78.47 kg jl7 (R); Height 5 ft. 11 in. (180.34 cm) (R); 13:30 BP 129 / 69; Pulse 52 MON; Resp 18; Pulse Ox 98% on R/A; sg 14:15 BP 92 / 55 Standing; Pulse 55 MON; Resp 17 S; Temp 98.5; Pulse Ox 98% on R/A; sg 15:15 BP 127 / 70 Supine; Pulse 102 MON; Resp 20; Pulse Ox 100% on R/A; sg 16:00 BP 138 / 78; Pulse 105; Resp 18; Pulse Ox 100% on R/A; sg 17:07 BP 134 / 64; Pulse 100 MON; Resp 19 S; Pulse Ox 100% on R/A; sg 19:00 BP 104 / 62; Pulse 100; Resp 18 S; Pulse Ox 98% on R/A; sg 19:55 Temp 99.3; bb 19:55 BP 101 / 69; Pulse 102; Resp 16 S; Pulse Ox 99% on R/A; bb 12:33 Body Mass Index 24.13 (78.47 kg, 180.34 cm) jl7 MDM: 12:39 Patient medically screened. gs 14:07 Differential diagnosis: gastritis, pancreatitis, viral gastroenteritis, gs gastroenteritis. Data reviewed: vital signs, nurses notes. Response to treatment: the patient's symptoms have markedly improved after treatment, and as a result, I will admit patient. Physician consultation: Yousif Narvaez MD and will see patient in inpatient room. 02/20 12:41 Order name: Basic Metabolic Panel; Complete Time: 13:25 gs 02/20 12:41 Order name: CBC with Diff; Complete Time: 13:25 02/20 12:41 Order name: Hepatic Function; Complete Time: 13:25 02/20 12:41 Order name: Lipase; Complete Time: 13:25 02/20 12:41 Order name: Urine Microscopic Only 02/20 13:25 Order name: PT-INR; Complete Time: 14:14 02/20 12:41 Order name: CT Abd/Pelvis - W/Contrast; Complete Time: 15:31 02/20 13:39 Order name: Type And Screen; Complete Time: 15:31 02/20 14:29 Order name: Chest Angio; Complete Time: 15:31 EDNC 02/20 16:38 Order name: CBC with Diff; Complete Time: 17:35 02/20 18:54 Order name: Glucose, Ancillary Testing EDNC 02/20 12:41 Order name: IV Saline Lock; Complete Time: 12:53 02/20 12:41 Order name: Labs collected and sent; Complete Time: 12:53 02/20 12:41 Order name: EKG; Complete Time: 12:41 02/20 12:41 Order name: EKG - Nurse/Tech; Complete Time: 12:53 02/20 14:20 Order name: EKG - Nurse/Tech; Complete Time: 14:23 02/20 15:37 Order name: EKG Electrocardiogram EDMS EC:07 Rate is 113 beats/min. Rhythm is regular, bigeminy. IN interval is normal. QRS interval gs is normal. T waves are Normal. No ST changes noted. Clinical impression: Abnormal EKG without significant change. Interpreted by me. Administered Medications: 13:02 Drug: NS 0.9% 1000 ml Route: IV; Rate: 1 bolus; Site: right antecubital; sg 14:10 Drug: Pepcid 20 mg Route: IVP; Site: left hand; ss 14:23 Follow up: Response: No adverse reaction sg 14:30 Drug: ProTONIX 8 mg/hr Route: IV; Rate: 25 ml/hr; Site: left hand; sg 20:01 Follow up: IV Status: Infusion continued upon admission bb 16:02 Drug: NS 0.9% 1000 ml Route: IV; Rate: 1 bolus; Site: left hand; sg 16:39 Drug: NS 0.9% 1000 ml Route: IV; Rate: 125 ml/hr; Site: right antecubital; sg 20:01 Follow up: IV Status: Infusion continued upon admission bb Point of Care Testing: Blood Glucose: 12:39 Blood Glucose: 159 mg/dL; lt1 Ranges: Critical Glucose Levels:Adult <50 mg/dl or >400 mg/dl <40 mg/dl or >180 mg/dl Disposition: 18 17:51 Hospitalization ordered by Mark Aldana for Inpatient Admission. Preliminary diagnosis is Gastrointestinal hemorrhage, unspecified. - Bed requested for Intensive Care Unit. - Status is Inpatient Admission. bb - Condition is Stable. - Problem is new. - Symptoms have improved. UTI on Admission? No Critical care time excluding procedures: 14:07 Critical care time: Bedside Care: 10 minutes, Consultation: 10 minutes, Family gs Intervention: 10 minutes. Total time: 30 minutes Signatures: Dispatcher [employer] [facility] Salazar Frazier RN RN sg Anderson, Corey, MD MD cha Ballard, Brenda RN RN Chasity Oropeza RN RN ss Leal, Jahala, RN RN jl7 Jackelyn Calle RN RN df Starr, Gregory, MD MD Corrections: (The following items were deleted from the chart) 14:29 14:15 Thorax W/ Con+CT.RAD.BRZ ordered. [facility] 16:33 13:54 Hospitalization Ordered by Mark Aldana DO for Inpatient Admission. Preliminary diagnosis is Gastrointestinal hemorrhage, unspecified. Bed requested for Intensive Care Unit. Status is Inpatient Admission. Condition is Stable. Problem is new. Symptoms have improved. UTI on Admission? No. gs 17:50 16:34 02/20/2018 16:34 Transfer ordered to [facility]. Diagnosis is gs Gastrointestinal hemorrhage, unspecified. Reason for transfer: Higher level of care. Accepting physician is kamran. Condition is Stable. Problem is new. Symptoms have improved. 18:18 17:51 Hospitalization Ordered by Mark Aldana DO for Inpatient Admission. Preliminary df diagnosis is Gastrointestinal hemorrhage, unspecified. Bed requested for Intensive Care Unit. Status is Inpatient Admission. Condition is Stable. Problem is new. Symptoms have improved. UTI on Admission? No. gs 20:30 18:18 02/20/2018 17:51 Hospitalization Ordered by Mark Aldana DO for Inpatient bb Admission. Preliminary diagnosis is Gastrointestinal hemorrhage, unspecified. Bed requested for Intensive Care Unit. Status is Inpatient Admission. Condition is Stable. Problem is new. Symptoms have improved. UTI on Admission? No. df
--- NOTE | 2018-02-20 13:55 | ER ---
Nurse's Notes [facility] Name: Rusty Yarbrough Age: 83 yrs Sex: Male : 1935 Arrival Date: 02/20/2018 Time: 12:32 Bed 3 Private MD: Diagnosis: Gastrointestinal hemorrhage, unspecified Presentation: 02/20 12:33 Presenting complaint: EMS states: Pt c/o just not feeling well and diarrhea x 3 days. jl7 Transition of care: patient was not received from another setting of care. Onset of symptoms was February 17, 2018. Risk Assessment: Do you want to hurt yourself or someone else? Patient reports no desire to harm self or others. Initial Sepsis Screen: Does the patient meet any 2 criteria? HR > 90 bpm. No. Patient's initial sepsis screen is negative. Does the patient have a suspected source of infection? No. Patient's initial sepsis screen is negative. Care prior to arrival: Medication(s) given: Normal saline infusion, 300 mL IV initiated. 22 GA, in the left hand. 12:33 Method Of Arrival: EMS: [facility] jl7 12:33 Acuity: GAYLE 3 jl7 Triage Assessment: 12:33 General: Appears in no apparent distress. uncomfortable, Behavior is calm, cooperative, jl7 appropriate for age. Pain: Complains of pain in right lower quadrant and left lower quadrant Pain does not radiate. Quality of pain is described as crampy, Pain began 2-3 days ago. Is continuous. EENT: No signs and/or symptoms were reported regarding the EENT system. Neuro: Level of Consciousness is awake, alert, obeys commands, Oriented to person, place, time, situation. Cardiovascular: Patient's skin is warm and dry. Respiratory: Airway is patent Respiratory effort is even, unlabored, Respiratory pattern is regular, symmetrical. GI: Abdomen is round non-distended, Abd is soft X 4 quads Abdomen is tender to palpation in right upper quadrant, right lower quadrant and left lower quadrant. : No signs and/or symptoms were reported regarding the genitourinary system. Derm: Skin is dry, Skin is jaundiced, Skin temperature is warm. Musculoskeletal: No signs and/or symptoms reported regarding the musculoskeletal system. Historical: - Allergies: 13:10 Enalapril; jl7 - Home Meds: 13:10 metoprolol tartrate 25 mg Oral tab 1 tab 2 times per day [Active]; jl7 - PMHx: 13:10 "heart valve replacement"; Hyperlipidemia; Hypertension; Myocardial infarction; jl7 - Immunization history:: Adult Immunizations unknown. - Social history:: The patient lives at home, Smoking status: unknown. - Ebola Screening: : No symptoms or risks identified at this time. Screenin:45 Abuse screen: Denies threats or abuse. Denies injuries from another. Nutritional sg screening: No deficits noted. Tuberculosis screening: No symptoms or risk factors identified. Never had TB. Fall Risk None identified. Assessment: 12:40 General: Appears in no apparent distress. comfortable, well groomed, well developed, sg well nourished, Behavior is calm, cooperative, appropriate for age. Pain: Complains of pain in right lower quadrant Quality of pain is described as crampy, sharp, stabbing. Neuro: No deficits noted. Cardiovascular: Heart tones S1 S2 present Capillary refill is sluggish in bilateral fingers Chest pain is denied. Respiratory: Airway is patent Respiratory effort is even, unlabored, Respiratory pattern is regular, symmetrical. GI: Abdomen is flat, non-distended, Bowel sounds present X 4 quads. Abd is soft X 4 quads Abdomen is tender to palpation in right lower quadrant Reports lower abdominal pain, diarrhea. : No signs and/or symptoms were reported regarding the genitourinary system. EENT: No signs and/or symptoms were reported regarding the EENT system. Derm: Skin is intact, is fragile, is thin, Skin is clammy, Skin is pale, Skin temperature is cool. Musculoskeletal: No signs and/or symptoms reported regarding the musculoskeletal system. 13:30 Reassessment: Patient appears in no apparent distress at this time. Patient and/or sg family updated on plan of care and expected duration. Pain level reassessed. 14:10 Reassessment: Patient appears in no apparent distress at this time. at sg bedside at this time evaluating pt. 15:10 Reassessment: Patient appears in no apparent distress at this time. Patient and/or sg family updated on plan of care and expected duration. Pain level reassessed. at bedside updating pt on POC and speaking with pt family and friends states that pt is [employer] so treatment options are limited here, attempting to get pt transferred at this time. 16:00 Reassessment: Patient appears in no apparent distress at this time. Patient and/or sg family updated on plan of care and expected duration. Pain level reassessed. Patient is alert, oriented x 3, equal unlabored respirations, skin warm/dry/pink. awaiting acceptance from receiving facility at this time Patient states feeling better. 16:55 Reassessment: Patient appears in no apparent distress at this time. Patient and/or sg family updated on plan of care and expected duration. Pain level reassessed. Patient is alert, oriented x 3, equal unlabored respirations, skin warm/dry/pink. awaiting a number for report at this time, pt family remains at bedside at this time, will continue to monitor. 17:37 Reassessment: Patient appears in no apparent distress at this time. Patient and/or sg family updated on plan of care and expected duration. Pain level reassessed. pt family requesting to speak with , notified at this time. 18:00 Reassessment: Patient appears in no apparent distress at this time. Patient and/or sg family updated on plan of care and expected duration. Pain level reassessed. Patient is alert, oriented x 3, equal unlabored respirations, skin warm/dry/pink. at bedside updating pt and pt family on POC and new lab results, pt to be admitted to the ICU here at this facility Patient states feeling better. 19:35 Reassessment: Patient appears in no apparent distress at this time. Patient is alert, ak1 oriented x 3, equal unlabored respirations, skin warm/dry/pink. Patient denies pain at this time. pt and family informed of wait for transport to ICU room. pt and family informed of admission process and ICU visit hours. . Vital Signs: 12:33 BP 135 / 64; Pulse 108; Resp 18 S; Temp 98.5(O); Pulse Ox 97% on R/A; Weight 78.47 kg jl7 (R); Height 5 ft. 11 in. (180.34 cm) (R); 13:30 BP 129 / 69; Pulse 52 MON; Resp 18; Pulse Ox 98% on R/A; sg 14:15 BP 92 / 55 Standing; Pulse 55 MON; Resp 17 S; Temp 98.5; Pulse Ox 98% on R/A; sg 15:15 BP 127 / 70 Supine; Pulse 102 MON; Resp 20; Pulse Ox 100% on R/A; sg 16:00 BP 138 / 78; Pulse 105; Resp 18; Pulse Ox 100% on R/A; sg 17:07 BP 134 / 64; Pulse 100 MON; Resp 19 S; Pulse Ox 100% on R/A; sg 19:00 BP 104 / 62; Pulse 100; Resp 18 S; Pulse Ox 98% on R/A; sg 19:55 Temp 99.3; bb 19:55 BP 101 / 69; Pulse 102; Resp 16 S; Pulse Ox 99% on R/A; bb 12:33 Body Mass Index 24.13 (78.47 kg, 180.34 cm) jl7 Vitals: 13:30 Cardiac Rhythm Assessment Other Bigeminy. sg 19:00 Cardiac Rhythm Assessment Other Vent Bigeminy. ED Course: 12:32 Patient arrived in ED. jl7 12:33 Arm band placed on right wrist. jl7 12:34 Wale Land MD is Attending Physician. gs 12:36 Triage completed. jl7 12:40 Patient has correct armband on for positive identification. Bed in low position. Call sg light in reach. Side rails up X2. monitoring and evaluation advisor on. Pulse ox on. NIBP on. Door closed. Warm blanket given. Verbal reassurance given. Head of bed elevated. 12:48 Radiology exam delayed due to lab results not completed at this time. (BUN/Creatinine). mw3 12:53 Salazar Frazier, RN is Primary Nurse. sg 13:01 EKG done, by railroad signal technician. reviewed by Wale Land MD. at1 13:05 Maintain EMS IV. Dressing intact. Site clean \\T\\ dry. Gauge \\T\\ site: 22 G L Hand. IV is sg patent, is intact, without good blood return, Flushed left hand saline lock with 5 ml normal saline. 13:15 Initial lab(s) drawn, by me, sent to lab. Inserted saline lock: 22 gauge in right sg antecubital area, using aseptic technique. Blood collected. 13:54 Mark Aldana DO is Hospitalizing Provider. gs 14:05 Assisted to bedside commode. BM x1 noted, small dark tarry BM noted, pt cleaned sg assisted back into bed. 14:28 REPEAT EKG WAS DONE. sm3 14:42 CT Abd/Pelvis - W/Contrast In Process Unspecified. EDMS 14:42 Chest Angio In Process Unspecified. EDMS 16:42 attempted transfer to [facility], pt was denied for lack of capacity, per mannie irizrary. 17:51 Mark Aldana DO is Hospitalizing Provider. gs 18:20 No provider procedures requiring assistance completed. sg 19:35 Shaina Mckinney, RN is Primary Nurse. ak1 20:00 Patient admitted, IV remains in place. bb Administered Medications: 13:02 Drug: NS 0.9% 1000 ml Route: IV; Rate: 1 bolus; Site: right antecubital; sg 14:10 Drug: Pepcid 20 mg Route: IVP; Site: left hand; ss 14:23 Follow up: Response: No adverse reaction sg 14:30 Drug: ProTONIX 8 mg/hr Route: IV; Rate: 25 ml/hr; Site: left hand; sg 20:01 Follow up: IV Status: Infusion continued upon admission bb 16:02 Drug: NS 0.9% 1000 ml Route: IV; Rate: 1 bolus; Site: left hand; sg 16:39 Drug: NS 0.9% 1000 ml Route: IV; Rate: 125 ml/hr; Site: right antecubital; sg 20:01 Follow up: IV Status: Infusion continued upon admission bb Point of Care Testing: Blood Glucose: 12:39 Blood Glucose: 159 mg/dL; lt1 Ranges: Output: 15:49 Urine: 150ml (Voided); Total: 150ml. lt1 18:44 Urine: 120ml (Voided); Total: 270ml. lt1 Outcome: 13:54 Decision to Hospitalize by Provider. gs 16:34 ER care complete, transfer ordered by MD. gs 17:51 Decision to Hospitalize by Provider. gs 19:59 Admitted to ICU accompanied by nurse, family with patient, via stretcher, room 7, on bb monitor, with chart, Report called to Elsie SALES 19:59 Condition: stable 19:59 Instructed on the need for admit. 20:30 Patient left the ED. bb Signatures: Dispatcher [employer] EDMS Regi Nix bd Salazar Frazier, HENRRY RN sg Lola Hayes RN RN bb Chasity Cazares RN RN ss Netta Santos, hospital security officer EKG Tat1 Shaina Mckinney RN RN ak1 Zunilda Molina RN RN jl7 Wale Land MD MD gs Montes, Sarah 3 Marli Gaytan 3 Jennifer Herrera lt1 Corrections: (The following items were deleted from the chart) 14:31 12:40 Reassessment: Patient appears in no apparent distress at this time. at sg bedside at this time evaluating pt sg
[2018-02-20 13:57] LABS: Protime INR 1.44
[2018-02-20] MEDS ORDERED: FAMOTIDINE 20 MG/2 ML VIAL IV ONE (14:17)
[2018-02-20] MEDS ORDERED: PANTOPRAZOLE INJ 80 MG in NA CHLORIDE 0.9% 250 ML IV ONE (14:30)
--- NOTE | 2018-02-20 15:03 | RAD REPORT ---
EXAM DESCRIPTION: CT - Chest Angio - 02/20/2018 2:42 pm CLINICAL HISTORY: Chest pain, diminished upper extremity pulses, poor capillary response, cold upper extremities, history of aortic valve surgery COMPARISON: CT chest June 2014, portable chest December 2017 TECHNIQUE: Dynamically enhanced axial 3 mm thick images of the chest were obtained during administra tion of 150 mL Isovue 370 IV contrast. Coronal and oblique reconstruction images were generated and r eviewed. Exam utilizes a protocol for optimal evaluation of pulmonary arterial tree. All CT scans are performed using dose optimization technique as appropriate and may include automated exposure control or mA/KV adjustment according to patient size. FINDINGS: Aortic valve surgical changes are noted. No dissection or acute aortic finding identifiabl e. Very minimal mural thrombus is present. Patient has aortoiliac atherosclerotic calcifications with out displacement. Ascending aorta is 3.7 cm AP x 3.6 cm TR. Aortic arch is 3.1 cm in diameter. Mid de scending thoracic aorta is 3.0 cm AP x 3.2 cm TR. At the diaphragm the aorta is 3.0 cm AP x 2.7 cm TR . At the level of the renal vasculature the aorta has taper to 2.0 cm AP x 2.0 cm TR. At the bifurcat ion the aorta is 1.8 cm AP x 1.8 cm TR. No iliac artery aneurysm. No stenosis of the aorto iliac or f emoral vasculature. Aortic arch is 3 vessel configuration. No origin stenosis. No vertebral artery or igins stenosis seen. The subclavian, axillary and proximal brachial arteries are normal diameter. No mesenteric or renal artery stenosis or acute finding. No pulmonary artery abnormality. No mass or infiltrate in the lung parenchyma. Prominent calcified pleural plaquing changes are presen t with no pleural based mass. No pleural effusion or pneumothorax. No abnormal mediastinal or hilar masses or lymphadenopathy seen. No chest wall mass or abnormal axill michelle lymphadenopathy. IMPRESSION: No aortic aneurysm, dissection or acute aortoiliac finding. Bilateral subclavian, axilla ry and proximal brachial arteries are unremarkable. Prominent calcified pleural plaquing with no pleural based mass. No acute lung parenchymal finding. N o mass or lymphadenopathy. Additional nonacute findings detailed in the body of the report.
--- NOTE | 2018-02-20 15:07 | RAD REPORT ---
EXAM DESCRIPTION: CT - Abdomen Pelvis W Contrast - 02/20/2018 2:42 pm CLINICAL HISTORY: Abdominal pain, melena, decreased pulses of the lower extremities, cold lower extr emities with poor capillary response COMPARISON: None. TECHNIQUE: Biphasic, helical CT imaging of the abdomen and pelvis was performed following 100 ml non -ionic IV contrast. No oral contrast administered. All CT scans are performed using dose optimization technique as appropriate and may include automated exposure control or mA/KV adjustment according to patient size. FINDINGS: Lung base findings are detailed as part of the separate CT chest angio report. No focal finding in the liver. Liver attenuation is borderline to mild fatty infiltrated. No capsular nodularity. Spleen and pancreas show no suspicious findings. Gallbladder and biliary tree are also w ithout suspicious finding. Symmetric renal function is seen with no hydronephrosis or suspicious renal mass. No pyelonephritis o r acute parenchymal process. Renal cysts are present. Contracted urinary bladder shows no suspicious finding. No adrenal abnormalities. No gastric dilatation or wall thickening. A minimal hiatal hernia is present. Patient has mild sigmoi d diverticulosis without diverticulitis, mass or any other finding to explain melena. No acute GI pro cess is seen. No free air, free fluid or inflammatory stranding. No mass or bulky lymphadenopathy. Patient has b ilateral fat filled inguinal hernias larger on the right. Disc and bony degenerative changes are present. No pathologic bone process. No evidence for bowel ischemia. Vascular findings are detailed as part of the CT chest report. IMPRESSION: Mild sigmoid diverticulosis without diverticulitis, mass or other acute GI finding. No a bnormality to explain melena history. No free air or surgically emergent finding. No acute findings are identifiable. Nonacute findings are detailed in the body of the report.
--- NOTE | 2018-02-20 15:17 | P.HP ---
Certification for Inpatient Patient admitted to: Inpatient With expected LOS: >2 Midnights Patient will require the following post-hospital care: None Practitioner: I am a practitioner with admitting privileges, knowledge of patient current condition, hospital course, and medical plan of care. Services: Services provided to patient in accordance with Admission requirements found in Title 42 Section 412.3 of the Code of Federal Regulations Patient History Date of Service: 02/20/18 Primary Care Provider: Dr. Perry; Cardiology-Dr. Leonardo; CV surgery-Dr. Mari Reason for admission: ER consultation for Melena, GI bleed History of Present Illness: 83-year-old male with history of severe aortic stenosis with prior bioprosthetic valve, history CVA, CAD with prior CABG, hypertension, and Jehovah 's Witness. For the last 2 days patient has noted abdominal bloating with mild pain to the lower quadrant. He also reports some melena. Increasing fatigue has been noted. He denies any significant chest pain or shortness of breath. Patient came to the ER for further evaluation. In the ER patient slightly tachycardic. Extremities were cold to touch. Poor capillary refill noted. Patient reports that he is only taking metoprolol and pain medication at this time. Previous medications included aspirin and Plavix. Patient last saw all cardiology in December. At that time he had a heart catheterization showing severe aortic stenosis. He was sent to CV surgery for possible replaced. CV surgery recommended to monitor closely likely related to his Sikhism. Patient given IV fluids, IV Protonix. Patient currently stable at this time. Family at bedside. Allergies enalapril [Enalapril] Allergy (Mild, Verified 12/01/17 15:54) Itching/Hives/Rash diphenhydramine HCl [From Benadryl] Allergy (Verified 12/01/17 15:54) Unknown Home medications list reviewed: Yes Home Medications: Atorvastatin Calcium [Lipitor*] 20 mg PO BEDTIME #30 tab 10/15/15 Clopidogrel Bisulfate [Plavix*] 75 mg PO DAILY #30 tablet 10/15/15 Metoprolol Tartrate [Lopressor*] 25 mg PO BID #60 tab 10/15/15 Acetaminophen with Codeine [Acetaminophen-Cod #3 Tablet] 1 each PO BIDP PRN Aspirin [Ecotrin 81 MG] 81 mg PO DAILY 07/31/16 - Past Medical/Surgical History Diabetic: No -: Hyperlipidemia -: CAD with prior CABG -: COPD -: PROSTATE CA -: History CVA, TIA -: Severe aortic stenosis with history of bioprosthetic valve -: Sikhism -: CABG -: C-Spine disc surgery -: Asthma -: Bioprosthetic valve replacement, aorta Psychosocial/ Personal History: Patient has children. - Family History Father -: Lung disease, Stroke Notes: passed in 89 from stroke - Social History Smoking Status: Former smoker Alcohol use: No CD- Drugs: No Caffeine use: No Place of Residence: Home Review of Systems General: Weakness, Malaise, As per HPI Eyes: Unremarkable ENT: Unremarkable Respiratory: Unremarkable Cardiovascular: Light Headedness, As per HPI Gastrointestinal: Abdominal Pain, Melena, As per HPI Genitourinary: Unremarkable Musculoskeletal: Unremarkable Integumentary: Unremarkable Neurological: Weakness, As per HPI Lymphatics: Unremarkable Physical Examination - Physical Exam General: Alert, In no apparent distress, Oriented x3, Cooperative, Other (Cool extremities noted throughout) HEENT: Atraumatic, Normocephalic Neck: Supple Respiratory: Clear to auscultation bilaterally, Normal air movement Cardiovascular: Other (Aortic murmur ), Abnormal pulses (Sinus tachycardia) Gastrointestinal: Hypoactive, Soft and benign, Non-distended, No masses, No rebound, No guarding, Other (Melena noted from feces), Tenderness (Mild tenderness to the lower quadrant) Musculoskeletal: No erythema, No tenderness, No warmth Integumentary: Other (Cool extremities to all 4s.) Neurological: Normal speech, Normal strength at 5/5 x4 extr, Normal tone, Normal affect - Studies Laboratory Data (last 24 hrs) 02/20/18 : PT 17.0 H, INR 1.44 02/20/18 12:40: WBC 12.9 H, Hgb 11.2 L, Hct 32.8 L, Plt Count 157 02/20/18 12:40: Sodium 146 H, Potassium 4.3, BUN 67 H, Creatinine 1.00, Glucose 149 H, Total Bilirubin 0.6, AST 8 L, ALT 12, Alkaline Phosphatase 42 L, Lipase 81 Assessment and Plan - Plan Impression: Melena, fatigue, anemia suspect upper GI bleed complicated with patient being Sikhism Tachycardia with cold extremities likely related to upper GI bleed and hypovolemia Severe aortic stenosis with prior bioprosthetic valve Hypertension CAD with prior CABG Hyperlipidemia COPD Plan: Melena, fatigue, anemia suspect upper GI bleed complicated with patient being Sikhism: Patient examined, CT scan reviewed. Patient given IV fluid and started on IV Protonix in the emergency room. Patient will require ICU management. Case discussed at length with patient, family and ER physician. Patient is Sikhism and desires no blood products. Options were provided. Patient would prefer transferred to [facility] where he has his specialty care physicians. They would be able to provide other options for Sikhism like blood expanders. This was addressed in detail with the patient. ER will transfer patient for high-level of care. Case also discussed with GI and cardiology who agree. Tachycardia with cold extremities likely related to upper GI bleed and hypovolemia: Patient be transferred for higher level of care including GI, possible CV surgery. Severe aortic stenosis with prior bioprosthetic valve: Patient will be sent to [facility] for his CV surgeon is present. Hypertension: Will hold blood pressure medication at this time. CAD with prior CABG: Continue as above Hyperlipidemia: Continue as above COPD: Continue as above Case discussed with ER physician. Transfer initiation started. Transfer to [facility] is preferred by patient. Discharge Plan: Transfer Plan to discharge in: Greater than 2 days - Advance Directives Does patient have a Living Will: No Does patient have a Durable POA for Healthcare: No - Code Status/Comfort Care Code Status Assessed: Yes (full code) Time Spent Managing Pts Care (In Minutes): 55
--- NOTE | 2018-02-20 15:31 | EKG ---
Test Date: 2018-02-20 Test Time: 12:53:44 Packaging Sales Consultant: ABI MEASUREMENT RESULTS: Intervals: Rate: 113 IL: 168 QRSD: 94 QT: 354 QTc: 485 [place]: P: 35 IL: 168 QRS: -5 T: 95 INTERPRETIVE STATEMENTS: Sinus tachycardia with frequent premature ventricular complexes in a pattern of bigeminy Nonspecific ST and T wave abnormality Abnormal ECG Compared to ECG 12/13/2017 13:39:09 Ventricular premature complex(es) now present ST (T wave) deviation now present Sinus rhythm no longer present First degree AV block no longer present Electronically Signed On 02-20-18 15:30:25 FOOD PRODUCTION MACHINE OPERATOR by Cedric Leonardo
[2018-02-20 17:27] LABS: Absolute Monocytes 0.5 K/uL (0.1-1.3); Absolute Neutrophil 8.1 K/uL (1.8-8.0); Basophils % 1.2 % (0-1.3); Eosinophils % 0.1 % (0-4.4); Hematocrit 30.7 % (39.6-49.0); Lymphocytes % 18.7 % (15.3-44.8); MPV 10.3 fL (7.6-11.3); Monocytes % 4.3 % (3.3-12.3); RBC Red Blood Cell Count 3.33 M/uL (4.33-5.43)
[2018-02-20] MEDS ORDERED: ONDANSETRON 4 MG/2 ML VIAL IV PRN (20:16)
[2018-02-20] MEDS: D5 0.45 NS 1,000 ML IV SCH (20:16)
[2018-02-20] MEDS: PANTOPRAZOLE INJ 80 MG in NA CHLORIDE 0.9% 250 ML IV SCH (20:16)
[2018-02-20] MEDS ORDERED: MORPHINE 2 MG/ML SYR IV PRN (20:16)
[2018-02-20] MEDS ORDERED: ACETAMINOPHEN 500 MG TAB PO PRN (20:16)
[2018-02-20] MEDS ORDERED: HYDRALAZINE HCL 20 MG/ML VIAL IV PRN (20:16)
[2018-02-20] MEDS ORDERED: D5 0.45 NS 1,000 ML IV ONE (21:09)
[2018-02-20 21:30] LABS: Hematocrit 28.3 % (39.6-49.0)
[2018-02-20] MEDS ORDERED: CEFTRIAXONE 1 GM/NS 50 ML 1 GM/50 ML BAG IV SCH (22:00)
[2018-02-20 22:08] LABS: CKMB Creatine Kinase MB < 1.0 ng/mL (0.3-3.6); Creatine Phosphokinase 15 U/L (39-308); Ferritin 77.9 ng/mL (26-388); Transferrin 201 mg/dL (200-360); Troponin I < 0.02 ng/mL (0.0-0.045)
[2018-02-20 22:09] VITALS: BMI 24.3
[2018-02-20] MEDS ORDERED: CEFTRIAXONE/SWI 1gm 1 GM/10 ML SYR ONE (23:08)
[2018-02-21] MEDS ORDERED: PANTOPRAZOLE 40 MG INJ ONE (00:48)
[2018-02-21] MEDS ORDERED: NA CHLORIDE 0.9% 250 ML ONE (00:48)
[2018-02-21 05:26] LABS: Absolute Lymphocytes (CBC) 1.9 K/uL (0.7-4.9); Absolute Monocytes 0.6 K/uL (0.1-1.3); Absolute Neutrophil 3.7 K/uL (1.8-8.0); Basophils % 1.2 % (0-1.3); Eosinophils % 2.2 % (0-4.4); Hematocrit 24.9 % (39.6-49.0); Lymphocytes % 29.7 % (15.3-44.8); MPV 10.5 fL (7.6-11.3); Monocytes % 8.7 % (3.3-12.3); RBC Red Blood Cell Count 2.73 M/uL (4.33-5.43)
[2018-02-21 05:44] LABS: BUN Blood Urea Nitrogen 38 mg/dL (7-18); Bicarbonate 25 mmol/L (21-32); Glucose Level 112 mg/dL (74-106); Magnesium 2.1 mg/dL (1.8-2.4); Potassium 3.6 mmol/L (3.5-5.1); Sodium Level 146 mmol/L (136-145)
[2018-02-21 05:45] LABS: CKMB Creatine Kinase MB < 1.0 ng/mL (0.3-3.6); Creatine Phosphokinase 24 U/L (39-308); Troponin I 0.02 ng/mL (0.0-0.045)
--- NOTE | 2018-02-21 06:02 | EKG ---
Test Date: 2018-02-20 Test Time: 14:22:23 Pottery Machine Operator: ALLEGRA MEASUREMENT RESULTS: Intervals: Rate: 103 MI: 170 QRSD: 92 QT: 358 QTc: 468 [place]: P: 40 MI: 170 QRS: 11 T: 99 INTERPRETIVE STATEMENTS: Sinus tachycardia with frequent premature ventricular complexes in a pattern of bigeminy ST & T wave abnormality, consider lateral ischemia Abnormal ECG Compared to ECG 02/20/2018 12:53:44 ST (T wave) deviation still present Electronically Signed On 02-21-18 06:01:44 DIRECTOR OF SUSTAINABILITY by Cedric Leonardo
[2018-02-21] MEDS: PANTOPRAZOLE INJ 80 MG in NA CHLORIDE 0.9% 250 ML IV SCH (06:16)
[2018-02-21] MEDS: D5 0.45 NS 1,000 ML IV SCH ×2 (08:17→09:03)
[2018-02-21] MEDS ORDERED: NA CHLORIDE 0.9% 1,000 ML ONE (08:51)
[2018-02-21] MEDS ORDERED: PROPOFOL 200 MG/20 ML VIAL IV ONE (08:55)
[2018-02-21] MEDS ORDERED: LIDOCAINE 1% MPF 5 ML VIAL ONE (08:55)
[2018-02-21] MEDS ORDERED: CEFTRIAXONE/SWI 1gm 1 GM/10 ML SYR IV SCH (09:00)
[2018-02-21] MEDS ORDERED: EPHEDRINE SULF 50 MG/ML VIAL ONE (09:10)
[2018-02-21] MEDS ORDERED: Phenylephrine HCl 10 MG/ML 1 ML VIAL ONE (09:11)
[2018-02-21] MEDS ORDERED: NS 0.9% VIAL 0 ML ONE (09:11)
[2018-02-21] MEDS ORDERED: PANTOPRAZOLE INJ 80 MG in NA CHLORIDE 0.9% 250 ML IV SCH (11:00)
[2018-02-21] MEDS: D5W 1,000 ML IV SCH (12:03)
--- NOTE | 2018-02-21 12:12 | ECHO ---
HEIGHT: 5 ft 10 in WEIGHT: 169 lb 8 oz DATE OF STUDY: 02/21/[address]: Mark Aldana DO 2-DIMENSIONAL: YES M.MODE: YES DOPPLER: YES COLOR FLOW: YES TDS: NO PORTABLE: NO DEFINITY: NO BUBBLE STUDY: NO DIAGNOSIS: AORTIC STENOSIS CARDIAC HISTORY: CATHERIZATION: YES SURGERY: STATUS POST AORTIC VALVE REPLACEMENT PROSTHETIC VALVE: YES PACEMAKER: NO MEASUREMENTS (cm) DIASTOLIC (NORMALS) SYSTOLIC (NORMALS) IVSd 1.2(0.6-1.2) LA Diam 4.0 (1.9-4.0) LVEF 72% LVIDd 4.9 (3.5-5.7) LVIDs 2.9 (2.0-3.5) %FS 41% LVPWd 1.1 (0.6-1.2) Ao Diam 3.0 (2.0-3.7) 2 DIMENSIONAL ASSESSMENT: RIGHT ATRIUM: NORMAL LEFT ATRIUM: NORMAL RIGHT VENTRICLE: NORMAL LEFT VENTRICLE: NORMAL TRICUSPID VALVE: NORMAL MITRAL VALVE: MITRAL ANNULAR CALCIFICATION PULMONIC VALVE: NORMAL AORTIC VALVE: STENOTIC PERICARDIAL EFFUSION: NONE AORTIC ROOT: NORMAL LEFT VENTRICULAR WALL MOTION: NORMAL. DOPPLER/COLOR FLOW: AORTIC STENOSIS- MODERATE. COMMENTS: MODERATE AORTIC STENOSIS 1.1 CM SQUARED- BIOPROSTHETIC. NORMAL LEFT VENTRICULAR SIZE AND FUNCTION. MITRAL ANNULAR CALCIFICATION. NO EFFUSION. TECHNOLOGIST: PAULA LIRA
[2018-02-21 12:22] LABS: Hematocrit 25.3 % (39.6-49.0)
[2018-02-21 12:24] LABS: CKMB Creatine Kinase MB < 1.0 ng/mL (0.3-3.6); Creatine Phosphokinase 33 U/L (39-308); Troponin I < 0.02 ng/mL (0.0-0.045)
--- NOTE | 2018-02-21 17:42 | P.PN ---
Subjective Date of Service: 02/21/18 Primary Care Provider: Dr. Perry; Cardiology-Dr. Leonardo; CV surgery-Dr. Mari Chief Complaint: ER consultation for Melena, GI bleed Patient seen and examined at bedside with RN. Chart reviewed. Case discussed with GI at this time. Patient is currently status post EGD. Case also discussed with cardiology at this time. Recommend holding Eliquis. Review of Systems 10-point ROS is otherwise unremarkable Physical Examination - Vital Signs Temperature: 98.2 F Blood Pressure: 101/48 Pulse: 86 Respirations: 18 Pulse Ox (%): 100 - Physical Exam General: Alert, In no apparent distress HEENT: Atraumatic, PERRLA, EOMI Neck: Supple, JVD not distended Respiratory: Clear to auscultation bilaterally, Normal air movement Cardiovascular: Regular rate/rhythm, Normal S1 S2 Gastrointestinal: Normal bowel sounds, No tenderness Musculoskeletal: No tenderness Integumentary: No rashes Neurological: Normal speech, Normal tone, Normal affect Lymphatics: No axilla or inguinal lymphadenopathy - Studies Medications List Reviewed: Yes Assessment And Plan - Current Problems (Diagnosis) (1) Upper GI bleeding Current Visit: Yes Status: Acute Plan: Upper GI bleeding most likely secondary to Eliquis -H&H is stable at this time. -GI has been consulted appreciated recommendations at this time -patient is currently status post EGD which revealed multiple large ulcers no cauterization required -per GI recommendation will switch over to IV PPI b.i.d. -clear liquid diet and will advance to oral tomorrow -will start patient on aspirin from tomorrow -patient will need to repeat EGD in couple of months after following up with Cardiology in getting clearance for the EGD. (2) Aortic stenosis Onset Date: 02/21/18 Current Visit: Yes Status: Chronic Plan: Chronic aortic stenosis status post aortic valve replacement x2. -echocardiogram consistent with right valve stenosis at 0.6. -cardiology consulted appreciated recommendations at this time -cardiology recommends the patient may need further surgical intervention for the re stenosis will follow up with patient outpatient -. Eliquis at this time and resume baby aspirin from tomorrow Qualifiers: Cardiac valve disease etiology: etiology unspecified Qualified Code(s): I35.0 - Nonrheumatic aortic (valve) stenosis (3) COPD (chronic obstructive pulmonary disease) Onset Date: 02/21/18 Current Visit: Yes Status: Chronic Qualifiers: COPD type: chronic bronchitis Chronic bronchitis type: mixed simple and mucopurulent Qualified Code(s): 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 Currently patient is status post EGD. Will switch to IV PPI b.i.d. and advanced to clear liquid diet. Will transfer out of ICU. Observe patient for next 24-48 hr for any further complication. H&H is stable at this time will continue to monitor closely here. Discharge Plan: Home Plan to discharge in: Greater than 2 days - Code Status/Comfort Care Code Status Assessed: Yes Critical Care: No
[2018-02-21 17:47] LABS: Hematocrit 26.3 % (39.6-49.0)
--- NOTE | 2018-02-21 20:13 | OP ---
Surgeon: Yousif Narvaez MD Procedure Performed: Esophagogastroduodenoscopy. Performing Physician: Yousif Narvaez M.D. Indication For Procedure: Upper GI bleed in a patient with significant cardiac comorbidities. Plan For Anesthesia: Monitored anesthesia care. Complexity: High. Due to the patient's severe aortic stenosis, this procedure is being done on an e mergent basis as he was not able to be transferred and also he is a Jehovah's witness. Technique: After obtaining informed consent from the patient and explaining risks and complications, which include, but are not limited to bleeding, infection, perforation, anesthesia complications, an d even cardiorespiratory arrest. The patient was placed in a left lateral position and sedation was given. From then on, the scope was advanced to the mouth and carefully guided up till the second por tion of the duodenum. There was no active bleeding seen, however, stigmata of recent acute upper GI bleeding was visualized. After diagnostic maneuver, the scope and equipment were withdrawn and proce dure terminated in a safe manner. Findings: Esophagus: No gross lesion seen in the upper and mid esophagus. In the distal esophagus, there was evidence of LA grade B esophagitis. The Z-line appeared irregular, and a small hiatal her tanisha was seen. In the stomach, multiple superficial ulcers were seen in the antrum and body. Antral and body biopsies were taken. In the antral region proximal to the pylorus, a large cratered around 1.5 to 2 cm ulcer was seen. This had a clean base. No high-risk stigmata. Biopsies were taken from the ulcer margin. This appeared as the likely source of the bleed. The duodenum, the bulb, and sec ond portion appeared normal. Complications: None. Tolerance To Anesthesia: Excellent. Postoperative Diagnoses: Hiatal hernia, esophagitis, multiple superficial gastric ulcers, and a larg e created gastric ulcer. Plan: 1.Await pathology results. 2.Continue IV PPI for now until tomorrow, then switch to oral twice a day. Clear liquid diet can be initiated today. Avoid NSAIDs. Cardiology followup. In regard to follow up of this gastric ulcer, he would require repeat endoscopy in 4 to 6 weeks, however, given his significant aortic stenosis, i t can be done at a tertiary care center or after his stenosis is addressed. US/MODL Voice ID: [id number] Report ID: [id number]
[2018-02-21] MEDS ORDERED: SODIUM CHLORIDE 0.9% 10ML INJ IV SCH (21:00)
[2018-02-21] MEDS ORDERED: PANTOPRAZOLE 40 MG INJ IVP SCH (21:00)
--- NOTE | 2018-02-21 22:31 | CON ---
Date of Consultation: 02/21/2018 Reason For Consultation: Aortic stenosis and upper GI bleed with Eliquis on board. History Of Present Illness: Mr. Yarbrough is 83. He has had 2 aortic valve replacement. The first 1 w as metallic [employer]. The second 1 by bioprosthetic catheterization in December 2017, showed severe aortic stenosis. Normal coronaries. No plans for aortic valve replacement as per patient request an d family as far as I know. He came in with an upper GI bleed. Hemoglobin is 8.7. Dr. Narvaez plan s to do an endoscopy. Another echocardiogram is pending. Mr. Yarbrough is a Gnosticism and ther e is no plan for blood transfusions. He does not have any cardiac symptoms. 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 Allergies: HE IS ALLERGIC TO BENADRYL AND ENALAPRIL. Review of Systems: Negative. Social History: Negative for tobacco, alcohol or drugs. Family History: Positive for heart disease and dyslipidemia. Medications: His medications at home include Eliquis, metoprolol and Ultram. Physical Examination: Vital Signs: Stable. He was afebrile and he was in a sinus rhythm. HEENT: Negative. Neck: Supple without any bruit, lymphadenopathy or JVD. He has transmitted sounds of his aortic yoav ve in the carotid. Chest: Clear to auscultation and percussion. Cardiac: Exam revealed a regular rhythm and rate with S4 gallops and aortic stenosis murmur. Abdomen: Benign. Extremities: Revealed no clubbing, cyanosis or edema. Skin: Intact and dry. Vascular: He had good pulses distally on vascular exam. Diagnostic Data: Hemoglobin is 8.7. EKG shows sinus tachycardia with PVCs. Chest x-ray was negativ e. CT of the abdomen showed diverticulosis. CT angiogram of the chest was negative. Impression And Plan: The patient with aortic stenosis. No cardiac symptoms. Normal coronary artery . Echocardiogram is pending. I think he is cleared to undergo endoscopy by Dr. Narvaez if the need arises. He probably will have to be on proton pump inhibitors. He refuses blood transfusion and hi s hemoglobin is actually stable and I certainly would not transfuse him any way. He has had a histor y of CVA and a TIA before. His blood pressure is stable. His dyslipidemia is stable. His COPD is s table. His aortic valve replacement will be checked with another echocardiogram today, but if he is asymptomatic and there is no plan for surgery again on him that would be a third surgery. I would de finitely stop his Eliquis from now on and continue him on a baby aspirin once it is okay with Dr. Tremaine reeves. NILS/MACARIO Voice ID: [id number] Report ID: [id number]
[2018-02-22 01:18] VITALS: O2SAT 96
[2018-02-22] MEDS: D5W 1,000 ML IV SCH ×2 (05:16→20:37)
[2018-02-22 06:26] LABS: Absolute Lymphocytes (CBC) 1.5 K/uL (0.7-4.9); Absolute Monocytes 0.4 K/uL (0.1-1.3); Absolute Neutrophil 2.9 K/uL (1.8-8.0); Basophils % 1.3 % (0-1.3); Eosinophils % 5.4 % (0-4.4); Hematocrit 23.3 % (39.6-49.0); Lymphocytes % 28.8 % (15.3-44.8); MPV 10.2 fL (7.6-11.3); Monocytes % 8.6 % (3.3-12.3); RBC Red Blood Cell Count 2.54 M/uL (4.33-5.43)
[2018-02-22 06:41] LABS: BUN Blood Urea Nitrogen 18 mg/dL (7-18); Bicarbonate 26 mmol/L (21-32); Glucose Level 87 mg/dL (74-106); Magnesium 1.9 mg/dL (1.8-2.4); Potassium 3.6 mmol/L (3.5-5.1); Sodium Level 146 mmol/L (136-145)
[2018-02-22] MEDS ORDERED: SODIUM CHLORIDE 0.9% 10ML INJ IV SCH (09:00)
[2018-02-22] MEDS: METOPROLOL TAR 25 MG TAB PO SCH ×2 (09:21→20:43)
[2018-02-22] MEDS: ASPIRIN EC 81 MG TAB PO SCH (09:22)
--- NOTE | 2018-02-22 10:57 | P.PN ---
Subjective Date of Service: 02/22/18 Primary Care Provider: Dr. Perry; Cardiology-Dr. Leonardo; CV surgery-Dr. Mari Chief Complaint: ER consultation for Melena, GI bleed Patient seen and examined at bedside with RN. Chart reviewed. Case discussed with GI at this time. Patient is currently status post EGD POD # 1. Case also discussed with cardiology at this time. No events Overnight. Denies having any Dizziness or syncope. Review of Systems 10-point ROS is otherwise unremarkable Physical Examination - Vital Signs Temperature: 97.5 F Blood Pressure: 113/59 Pulse: 84 Respirations: 20 Pulse Ox (%): 95 - Physical Exam General: Alert, In no apparent distress HEENT: Atraumatic, PERRLA, EOMI Neck: Supple, JVD not distended Respiratory: Clear to auscultation bilaterally, Normal air movement Cardiovascular: Regular rate/rhythm, Normal S1 S2 Gastrointestinal: Normal bowel sounds, No tenderness Musculoskeletal: No tenderness Integumentary: No rashes Neurological: Normal speech, Normal tone, Normal affect Lymphatics: No axilla or inguinal lymphadenopathy - Studies Medications List Reviewed: Yes Assessment And Plan - Current Problems (Diagnosis) (1) Upper GI bleeding Current Visit: Yes Status: Acute Plan: Upper GI bleeding most likely secondary to Eliquis -H&H is stable at this time. Will repeat today. -GI has been consulted appreciated recommendations at this time -patient is currently status post EGD which revealed multiple large ulcers no cauterization required -Switched to PO PPI now -GI soft today. -Started on ASA today -patient will need to repeat EGD in couple of months after following up with Cardiology in getting clearance for the EGD. (2) Aortic stenosis Onset Date: 02/21/18 Current Visit: Yes Status: Chronic Plan: Chronic aortic stenosis status post aortic valve replacement x2. -echocardiogram consistent with right valve stenosis at 0.6. -cardiology consulted appreciated recommendations at this time -cardiology recommends the patient may need further surgical intervention for the re stenosis will follow up with patient outpatient -Stop Eliquis at this time and resume baby aspirin from tomorrow Qualifiers: Cardiac valve disease etiology: etiology unspecified Qualified Code(s): I35.0 - Nonrheumatic aortic (valve) stenosis (3) COPD (chronic obstructive pulmonary disease) Onset Date: 02/21/18 Current Visit: Yes Status: Chronic Qualifiers: COPD type: chronic bronchitis Chronic bronchitis type: mixed simple and mucopurulent Qualified Code(s): 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 Currently patient is status post EGD. Will switch to PO PPI b.i.d. and advanced to GI soft diet. Restarted on ASA. Monitor H&H for next 24hrs. Anticipate Discharge in 24 to 48 hrs. PT consulted as well. Discharge Plan: Home Plan to discharge in: 48 Hours - Code Status/Comfort Care Code Status Assessed: Yes Critical Care: No
[2018-02-22 11:09] LABS: Hematocrit 24.4 % (39.6-49.0)
[2018-02-22 15:24] LABS: Hematocrit 25.4 % (39.6-49.0)
[2018-02-22] MEDS: PANTOPRAZOLE 40MG TABLET PO SCH (17:16)
[2018-02-22 19:56] LABS: Hematocrit 24.9 % (39.6-49.0)
[2018-02-22 23:08] LABS: Hematocrit 23.9 % (39.6-49.0)
[2018-02-23 06:19] LABS: Absolute Lymphocytes (CBC) 1.5 K/uL (0.7-4.9); Absolute Monocytes 0.4 K/uL (0.1-1.3); Absolute Neutrophil 2.2 K/uL (1.8-8.0); Basophils % 0.7 % (0-1.3); Eosinophils % 7.4 % (0-4.4); Hematocrit 24.8 % (39.6-49.0); Lymphocytes % 33.3 % (15.3-44.8); MPV 10.2 fL (7.6-11.3); Monocytes % 9.4 % (3.3-12.3); RBC Red Blood Cell Count 2.69 M/uL (4.33-5.43)
[2018-02-23 06:30] LABS: BUN Blood Urea Nitrogen 12 mg/dL (7-18); Bicarbonate 27 mmol/L (21-32); Glucose Level 89 mg/dL (74-106); Magnesium 2.2 mg/dL (1.8-2.4); Potassium 3.4 mmol/L (3.5-5.1); Sodium Level 144 mmol/L (136-145)
[2018-02-23] MEDS: PANTOPRAZOLE 40MG TABLET PO SCH (07:30)
[2018-02-23] MEDS: METOPROLOL TAR 25 MG TAB PO SCH (09:00)
[2018-02-23] MEDS: ASPIRIN EC 81 MG TAB PO SCH (09:00)
[2018-02-23 09:37] VITALS: BP 108/49; TEMP 97.8
--- NOTE | 2018-02-23 16:59 | P.DS ---
Admission Date: 02/20/18 Discharge Date: 02/23/18 Primary Care Provider: Dr. Perry; Cardiology-Dr. Leonardo; CV surgery-Dr. 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 For the last 2 days patient has noted abdominal bloating with mild pain to the lower quadrant. He also reports some melena. Increasing fatigue has been noted. He denies any significant chest pain or shortness of breath. Patient came to the ER for further evaluation. In the ER patient slightly tachycardic. Extremities were cold to touch. Poor capillary refill noted. Patient reports that he is only taking metoprolol and pain medication at this time. Previous medications included aspirin and Plavix. Patient last saw all cardiology in December. At that time he had a heart catheterization showing severe aortic stenosis. He was sent to CV surgery for possible replaced. CV surgery recommended to monitor closely likely related to his Anabaptism. Patient given IV fluids, IV Protonix. Patient currently stable at this time. Family at bedside. Hospital Course: Overall during the hospital stay patient remained stable Patient was initially admitted to the hospital for melanotic stool with possibility of upper GI bleed. Given the patient's oriental orthodox preference initially patient was advised to be transferred to higher level of care however patient then agreed to getting blood transfusion if needed and we were able to get GI on board and thus patient was admitted to the hospital for further workup. Patient was kept on Protonix and IV fluids and was initially admitted to the ICU. Eliquis was on hold. Cardiology and GI were consulted. Patient had EGD done with GI. EGD was consistent with multiple large nonbleeding ulcers. Patient tolerated the procedure well and was transferred back to the ICU. At that time patient was switched over to IV Protonix and his diet was advanced to a clear liquid diet. Patient's H&H remained stable while here in the hospital and patient did not require any blood transfusion. Post EGD patient's H&H also remained stable. Patient tolerated the diet well and thus was transferred to the regular floor. Cardiology was consulted given the history of aortic stenosis and AVR replacement x2. Cardiology recommended the patient be completely stopped from Eliquis given his history of AVR and just resume on baby aspirin. Patient was started on baby aspirin 1 daily post EGD. Patient had no further complications from resuming the aspirin and no further bleeding was noted. Patient then had a physical therapy consulted here in the hospital and did well overall. Patient then was discharged home under stable condition. Patient was asked to continue taking Protonix and aspirin when discharged home. Patient was also asked to follow up with GI for a followup a EGD and colonoscopy. However before doing the procedure patient was asked to follow up with cardiology for revisit of his AVR. Patient had an echocardiogram done here in the hospital which was consistent with the stenosis of the replacement about. Patient at this time declined any surgical intervention and said that they will follow up with cardiology outpatient. Patient then was discharged home under stable condition after he was able to tolerate a diet and was ambulating well. Vital Signs/Physical Exam: Temp Pulse Resp BP Pulse Ox 97.8 F 70 18 108/49 L 96 02/23/18 08:00 02/23/18 08:00 02/23/18 08:00 02/23/18 08:00 02/23/18 08:00 General: Alert, In no apparent distress HEENT: Atraumatic, PERRLA, EOMI Neck: Supple, JVD not distended Respiratory: Clear to auscultation bilaterally, Normal air movement Cardiovascular: Regular rate/rhythm, Normal S1 S2 Gastrointestinal: Normal bowel sounds, No tenderness Musculoskeletal: No tenderness Integumentary: No rashes Neurological: Normal speech, Normal tone, Normal affect Lymphatics: No axilla or inguinal lymphadenopathy Laboratory Data at Discharge: WBC 4.4 K/uL (4.3-10.9) D 02/23/18 05:47 Hgb 8.7 g/dL (13.6-17.9) L 02/23/18 05:47 Hct 24.8 % (39.6-49.0) L 02/23/18 05:47 Plt Count 127 K/uL (152-406) L D 02/23/18 05:47 PT 17.0 SECONDS (9.5-12.5) H 02/20/18 Unknown INR 1.44 02/20/18 Unknown Sodium 144 mmol/L (136-145) 02/23/18 05:47 Potassium 3.4 mmol/L (3.5-5.1) L 02/23/18 05:47 BUN 12 mg/dL (7-18) 02/23/18 05:47 Creatinine 0.80 mg/dL (0.55-1.3) 02/23/18 05:47 Glucose 89 mg/dL (74-106) 02/23/18 05:47 Magnesium 2.2 mg/dL (1.8-2.4) 02/23/18 05:47 Total Bilirubin 0.6 mg/dL (0.2-1.0) 02/20/18 12:40 AST 8 U/L (15-37) L 02/20/18 12:40 ALT 12 U/L (12-78) 02/20/18 12:40 Alkaline Phosphatase 42 U/L (45-117) L 02/20/18 12:40 Troponin I < 0.02 ng/mL (0.0-0.045) 02/21/18 11:45 Lipase 81 U/L (73-393) 02/20/18 12:40 Home Medications: Metoprolol Tartrate [Lopressor*] 25 mg PO BID #60 tab 10/15/15 Aspirin [Aspir-Low] 81 mg PO DAILY #30 tab 02/23/18 Pantoprazole [Protonix Tab*] 40 mg PO BIDAC #60 tab 02/23/18 Tramadol HCl [Ultram] 50 mg PO Q6H PRN #30 tablet 02/23/18 New Medications: Aspirin [Aspir-Low] 81 mg PO DAILY #30 tab Pantoprazole [Protonix Tab*] 40 mg PO BIDAC #60 tab Tramadol HCl [Ultram] 50 mg PO Q6H PRN #30 tablet PRN Reason: Pain Patient Discharge Instructions: New medication. ASA 81mg Daily. Protonix 40mg BID. Stop Taking. Eliquis Diet: Regular Activity: Ad gio Followup: Filiberto Sparks MD [ACTIVE - CAN ADMIT] - 1 Week Shawn Perry MD [ACTIVE - CAN ADMIT] - 1 Week Cedric Leonardo MD [ACTIVE - CAN ADMIT] - 1 Week Yousif Narvaez MD [ACTIVE - CAN ADMIT] - 1 Week
--- NOTE | 2018-02-24 04:00 | PN ---
Date of Progress Note: 02/22/2018 Subjective: Mr. Yarbrough was seen on 02/21/2018 because of severe aortic stenosis and GI bleed and Marilyn raya. The recommendation was for him to be off Eliquis. His aortic stenosis is severe, but he is no t having any cardiac symptoms, and there is certainly no plan for any surgical intervention. An endo scopy by Dr. Narvaez showed multiple gastric ulcers. He is now on proton pump inhibitors. He is kn own to have normal coronaries. His COPD is stable. I would continue present regimen off Eliquis on proton pump inhibitors and maybe start a baby aspirin when Dr. Narvaez is okay with that. [facility] can go home whenever it is okay with the admitting physician. NILS/MACARIO Voice ID: [id number] Report ID: [id number]
== END 2018-02-23 09:42 | disposition home health service (06) | DRG 378 ==
LOC: ER 12:31 → ERHOLD 17:53 → 3RD-ICU 20:01 → 2ND 02-21 15:58
PROVIDERS: ADMIT Family Medicine; ATTEND Family Medicine
PROC: 0DB78ZX Excision of Stomach, Pylorus, Via Natural or Artificial Opening Endoscopic, Diagnostic (ICD-10-PCS; 2018-02-21)
PROC: 0DB68ZX Excision of Stomach, Via Natural or Artificial Opening Endoscopic, Diagnostic (ICD-10-PCS; principal; 2018-02-21 10:00)
DX: K92.2 Gastrointestinal hemorrhage, unspecified (principal); D62 Acute posthemorrhagic anemia; I35.0 Nonrheumatic aortic (valve) stenosis; J44.9 Chronic obstructive pulmonary disease, unspecified; E78.00 Pure hypercholesterolemia, unspecified; I10 Essential (primary) hypertension; Z95.2 Presence of prosthetic heart valve; Z86.73 Personal history of transient ischemic attack (TIA), and cerebral infarction without residual deficits; I25.10 Atherosclerotic heart disease of native coronary artery without angina pectoris; Z95.1 Presence of aortocoronary bypass graft; K25.9 Gastric ulcer, unspecified as acute or chronic, without hemorrhage or perforation; Z85.46 Personal history of malignant neoplasm of prostate; Z87.891 Personal history of nicotine dependence; K92.1 Melena; E86.1 Hypovolemia; R00.0 Tachycardia, unspecified; K44.9 Diaphragmatic hernia without obstruction or gangrene; Z79.01 Long term (current) use of anticoagulants; Z79.02 Long term (current) use of antithrombotics/antiplatelets; Z88.8 Allergy status to other drugs, medicaments and biological substances
CPT/HCPCS: 36415; 71275; 74177; 80048; 80076; 82550; 82553; 82607; 82728; 82962; 83540; 83690; 83735; 84466; 84484; 85014; 85018; 85025; 85610; 86850; 86900; 86901; 88305; 88312; 93005; 93306; 96365; 96366; 96375; 97162; 97166; 99285; C9113; J0696; J2370; J2704; J7030; Q9967

== ENCOUNTER 2018-03-09 08:39 | Inpatient (IN) | payer OTHER ==
--- OUTSIDE RECORDS SUMMARY | 2018-03-09 08:41 | XMS REPORT | Clinical Summary ---
:1935 Author Organization [facility] Address [address] [place] [address] Care Team Providers Name Role Phone Provider, [...] Encounters Date Type Specialty Care Team Description 02/22/2018 Orders Only Cardiology Any Galindo, S/P AVR (Primary MA Dx) 02/20/2018 Intake Access N/A 01/04/2018 Orders Only Cardiology Therese, Nonrheumatic aortic [...] CTA HEN[place]Y [place] 12/20/2017 Multidisciplinary Visit Cardiology Jacey, Nonrheumatic aortic valve stenosis (Primary Dx); Luis Stephen, S/P aortic valve replacement with bioprosthetic valve; Essential hypertension 12/20/2017 Office Visit Cardiovascular Carlos, Severe aortic Elia stenosis (Primary MD Donta Dx) 12/20/2017 Hospital Encounter Procedural Carlos, Nonrheumatic aortic Cardiology Elia valve stenosis MD Donta 12/20/2017 Hospital Encounter Procedural Carlos, Cardiology Elia Longo MD 12/08/2017 Orders Only Cardiovascular Rachael Bentley, Nonrheumatic aortic valve stenosis (Primary Dx); RN Preoperative respiratory examination after 03/08/2017 Family History Medical History Relation Name Comments [...] Date Type Specialty Care Team Description 03/21/2018 Appointment Procedural Cardiology Luis Mari MD [address] [facility] [address] [place] [address] [phone] 03/21/2018 Multidisciplinary Visit Cardiology Luis Mari MD [address] [facility] [address] [place] [address] [phone] 06/20/2018 Appointment Procedural Cardiology Luis Mari MD [address] [facility] [address] [place], [place] [id number] 06/20/2018 Multidisciplinary Visit Cardiology Luis Mari MD [address] [facility] [address] [place], [place] [id number] Health Maintenance Due Date Last Done Comments [...] are in [employer] the results (72416) section. after 03/08/2017 Results ECG 12 lead (12/20/2017 2:04 PM CDT) Ventricular rate 70 [facility] Atrial rate 70 [facility] OK interval 178 [facility] QRSD interval 100 [facility] QT interval 414 [facility] QTC interval 447 [facility] P axis 1 42 [facility] QRS axis 1 -7 [facility] T wave axis 14 [facility] EKG impression Normal sinus rhythm-Normal ECG-No previous [facility] MUSE ECGs available- Performing Organization Address City/State/Zipcode Phone Number [facility] MUSE [address] [place] [address] tavr workup (cta coronary,cta thoracic aorta,cta abdomen pelvis) w contrast (12/20/2017 1:34 PM CDT) Narrative Performed At [facility] Nuclear Cardiology and Cardiac CT [address] [place] [address] CTA TAVR Protocol Pat.Name:Pretty STONE.ID:[id number] .Date: 12/20/2017Refer.MD:ELIA CORTES MD Exam Time: 12:37:00 PM Study Type:CTA TAVR Protocol Height:69inWeight: 180lb BSA: 1.98 m2 DOBAge:1935,82Y Sex: MALEBP:152/70 HR:65 bpm Nuclear Tech:RT María(R)(CT) Pat. Stat.:Outpatient CPT - 4: TAVR w Coronaries [id number] Nuclear Event ID:[id number] Order ID:[id number] Reason for Study:TAVR workup Procedures:CT Prospective (phases), CT Flash mode Race:C SUMMARY: Technique: IV contrast was administered and sequential 0.[address] cuts were obtained through the chest using the Siemens Somatom Force CT scanner. Post-processing and 3D reconstruction were done using the [employer] workstation. Interactive image viewing and volumetric display [...] Cardiovascular CTA Protocol and interpreted by a Police Radio Dispatcher.Should a more comprehensive assessment of non-cardiovascular findings be desired, please consult a radiologist.These images are available in the [facility] [employer] PACS system. Signed 12/21/2017 04:43 PM Reid Lees MD Procedure Note Interface, Radiology Results In - 12/21/2017 6:15 PM CDT Nuclear Cardiology and Cardiac CT [address] [place] [address] CTA TAVR Protocol Pat.Name: TREV STONE Pat.ID: [id number] .Date: 12/20/2017 Refer.MD: ELIA CORTES MD Exam Time: 12:37:00 PM Study Type:CTA TAVR Protocol Height: 69in Weight: 180lb BSA: 1.98 m2 Age: 10 1935,82Y Sex: MALE BP: 152/70 HR: 65 bpm Nuclear Tech:RT María(R)(CT) Pat. Stat.:Outpatient CPT - 4: TAVR w Coronaries [id number] Nuclear Event ID:[id number] Order ID: [id number] Reason for Study:TAVR workup Procedures:CT Prospective (phases), CT Flash mode Race: C SUMMARY: Technique: IV contrast was administered and sequential 0.[address] cuts were obtained through the chest using the Siemens Somatom Force CT scanner. Post-processing and 3D reconstruction were done using the [employer] workstation. Interactive image viewing and volumetric display [...] Cardiovascular CTA Protocol and interpreted by a Police Radio Dispatcher. Should a more comprehensive assessment of non-cardiovascular findings be desired, please consult a radiologist. These images are available in the [facility] [employer] PACS system. Signed 12/21/2017 04:43 PM Reid Lees MD Performing Organization Address City/State/Zipcode Phone Number [facility] [address] [place] [address] Estimated GFR (12/20/2017 12:39 PM CDT) Estimated GFR 82 mL/min/1.73 m2 [facility] DEPARTMENT OF Comment: PATHOLOGY AND GENOMIC CatergoryUnitsInterpretation MEDICINE G1 >=90 Normal or high G2 60-89Mildly decreased V9f23-42Hpwdzi to moderately decreased U5d48-19Kjbvfjtqws to severely decreased G4 15-29Severely decreased G5 <15Kidney failure The eGFR was calculated using the Chronic Kidney Disease Epidemiology Collaboration (CKD-EPI) equation. Interpretation is based on recommendations of the National Kidney Foundation-Kidney Disease Outcomes Quality Initiative (NKF-KDOQI) published in 2014. Specimen Blood Performing Organization Address City/[facility] Phone Number [facility] DEPARTMENT OF PATHOLOGY AND [address] [place] [address] [employer] MEDICINE POC creatinine (12/20/2017 12:39 PM CDT) POC creatinine 0.8 0.7 - 1.2 mg/dl [facility] DEPARTMENT OF PATHOLOGY Comment: AND [employer] MEDICINE Meter ID: [id number] Wildlife Refuge Specialist: Guille Sandra Specimen Blood Performing Organization Address [facility] Centercoms Phone Number [facility] DEPARTMENT OF PATHOLOGY AND [address] [place] [address] [employer] [facility] Echocardiogram complete w contrast and 3D if needed (12/20/2017 11:52 AM CDT) Narrative Performed At [facility] Echocardiography Report [address] [place] [address] Pat.Name:Pretty STONE.ID:[id number] .Date: 12/20/2017Refer.MD:ELIA CORTES MD Exam Time: 10:34:00 AM Study Type:Routine Echo Height:68inWeight: 175lb BSA: 1.93 m2 DOBAge:[age]Y Sex: MALEBP: 138/64 HR:55 bpmSonogrphr: Kim Feldman RDCS Pat. Stat.:OutpatientStudy Status:Final Echo Event ID:[id number] Order ID:[id number] Reason for Study:AORTIC VALVE STENOSIS Procedures:2D Echo, [...] PA systolic pressure. MEASUREMENTS: 2D Parasternal Long [place] Ds4.2 cmLV%fs 30.9 % Ao An2.2 cmIVSd 0.9 cm Ao Rtd 2.9 cmIndex 1.5 cm/m LVPWd0.9 cm LVOT 2.1 cm LV Ejqn951.6 g(122-174) LVIDd5.1 cmIndex 2.7 cm/m LVM Index [...] 12/21/2017 2:47 PM CDT Echocardiography Report [address] [place] [address] Pat.Name: TREV STONE Pat.ID: [id number] .Date: 12/20/2017 Refer.MD: ELIA CORTES MD Exam Time: 10:34:00 AM Study Type:Routine Echo Height: 68in Weight: 175lb BSA: 1.93 m2 Age: 10 1935,82Y Sex: MALE BP: 138/64 HR: 55 bpm Sonogrphr: Kim Feldman RDCS Pat. Stat.:Outpatient Study Status:Final Echo Event ID:[id number] Order ID: [id number] Reason for Study:AORTIC VALVE STENOSIS Procedures:2D Echo, [...] PA systolic pressure. MEASUREMENTS: 2D Parasternal Long [place] Ds 4.2 cm LV%fs 30.9 % [...] Performing Organization Address City/State/Zipcode Phone Number [facility] [address] [place] [address] after 03/08/2017 Insurance Payer Benefit Plan / Group Subscriber ID Type Phone Address OLAYINKA BHAGAT [facility] xxxxxxxxx O Advance Directives Patient has advance care planning documents on file. For more information, please contact:Chet Marquez[address] [place] [address]
--- OUTSIDE RECORDS SUMMARY | 2018-03-09 08:41 | XMS REPORT | Clinical Summary ---
:1935 Author Organization [facility] Address [address] [place] [address] Care Team Providers Name Role Phone Ike [...] attack) 01/19/2015 HLD (hyperlipidemia) 01/19/2015 Patient is Evangelical 01/19/2015 Family History Medical History Relation Name [...] INFLUENZA VACCINE 12/05/2017 Implants Implanted Type Area [employer] Support Worker Device Shelf Model / Identifier Expiration Serial / Date Lot [place] Jayden Xt Transcatheter Heart Valve Valves N/A: ESPAÑA 2015 [id number] / Implanted: Qty: 1 on 02/12/2015 by Dank Valladares MD [facility] [employer] [id number] / Results Not on fileafter 03/08/2017 Insurance Payer Benefit Plan / Group Subscriber ID Type Phone Address [employer] - MEDICARE AARP/MEDICARE COMPLETE xxxxxxxxx MGD CARE Advance Directives Patient has advance care planning documents, and code status on file. For more information, please contact:[address] [phone] Code Status Date Activated Date Inactivated Comments Full Code 02/12/2015 5:34 AM 02/13/2015 6:46 PM This code status was determined by: Patient Full Code 02/07/2015 1:48 PM 02/07/2015 2:21 PM This code status was determined by: Patient
[2018-03-09] MEDS ORDERED: ACETAMINOPHEN 160 MG/5 ML UCUP ONE (09:05)
[2018-03-09 09:12] LABS: Absolute Lymphocytes (CBC) 0.6 K/uL (0.7-4.9); Absolute Monocytes 0.2 K/uL (0.1-1.3); Absolute Neutrophil 5.7 K/uL (1.8-8.0); Basophils % 1.2 % (0-1.3); Eosinophils % 1.7 % (0-4.4); Hematocrit 30.6 % (39.6-49.0); Lymphocytes % 9.6 % (15.3-44.8); Monocytes % 2.5 % (3.3-12.3); RBC Red Blood Cell Count 3.33 M/uL (4.33-5.43)
[2018-03-09] MEDS ORDERED: NA CHLORIDE 0.9% 2,000 ML ONE (09:25)
[2018-03-09 09:35] LABS: Albumin 3.1 g/dL (3.4-5.0); Bilirubin Direct 0.2 mg/dL (0-0.2); Bilirubin Total 0.6 mg/dL (0.2-1.0); Potassium 3.5 mmol/L (3.5-5.1)
--- NOTE | 2018-03-09 09:39 | RAD REPORT ---
EXAM DESCRIPTION: RAD - Chest Single View - 03/09/2018 9:29 am CLINICAL HISTORY: Fever, chills, asbestosis history COMPARISON: December 13, 2017, December 01, 2017 TECHNIQUE: AP portable chest image was obtained 0915 hours . FINDINGS: Normal lung volumes noted. Right-sided calcified pleural plaquing changes are present with out an acute infiltrate or mass on the right side. Patient has extensive calcified pleural plaquing c hanges on the left. There is an increase in alveolar opacification in the lower left lung field suspi cious for a superimposed pneumonia. Sternotomy wires are again noted. Heart and vasculature are normal. No measurable pleural effusion an d no pneumothorax. No acute bony abnormality seen. No acute aortic findings suspected. IMPRESSION: Small or early left lower lung field pneumonia. Extensive bilateral calcified pleural plaquing.
--- NOTE | 2018-03-09 09:54 | ER ---
Nurse's Notes [facility] Name: Rusty Yarbrough Age: 83 yrs Sex: Male : 1935 Arrival Date: 03/09/2018 Time: 08:43 Bed 5 Private MD: Diagnosis: Pneumonia, unspecified organism Presentation: 03/09 08:54 Presenting complaint: Child states: Son states pt lives with him, had no symptoms last ch night and today woke up with a fever, shivering. denies cough cold congestion. states he was released 02/27/18 from here, and told he needs a valve replacement. was dx with bleeding ulcers. Transition of care: patient was not received from another setting of care. Onset of symptoms was March 09, 2018 at 07:00. Risk Assessment: Do you want to hurt yourself or someone else? Patient reports no desire to harm self or others. Initial Sepsis Screen: Does the patient meet any 2 criteria? RR > 20 per min. Temp <36.0*C (96.8*F)) or > 38.3*C (100.9*F). HR > 90 bpm. Yes Does the patient have a suspected source of infection? No. Patient's initial sepsis screen is negative. If YES to both, name of provider notified: Leah FERNANDEZ. Care prior to arrival: None. 08:54 Method Of Arrival: EMS: [facility] 08:54 Acuity: GAYLE 3 09:20 Note pt does meet sepsis qualifications. protocol initiated. Triage Assessment: 08:58 General: Appears in no apparent distress. comfortable, Behavior is cooperative, ch appropriate for age. Pain: Denies pain. Neuro: Level of Consciousness is awake, obeys commands, confused, Oriented to person, place, Weakness Speech is normal, Facial symmetry appears normal. Cardiovascular: Heart tones present Murmur present Capillary refill < 3 seconds in bilateral fingers toes Clubbing of nail beds is absent Pulses are all present. Edema is absent. Rhythm is sinus tachycardia Chest pain is denied. Respiratory: Airway is patent Respiratory effort is even, Breath sounds are coarse bilaterally. GI: No signs and/or symptoms were reported involving the gastrointestinal system. : No signs and/or symptoms were reported regarding the genitourinary system. Derm: Skin is intact, Skin is dry, Skin is normal, Skin temperature is hot. Musculoskeletal: Parent/caregiver report the patient having son reports generalized weakness, states he cannot even walk or sit up on his own now. Historical: - Allergies: 08:58 Enalapril; ch 09:20 Benadryl; ch - Home Meds: 09:20 tramadol 50 mg Oral tab 1 tab every 6 hours for Pain [Active]; pantoprazole 40 mg oral ch TbEC 1 tab 2 times per day [Active]; metoprolol tartrate 25 mg Oral tab 1 tab 2 times per day [Active]; aspirin 81 mg Oral chew 1 tab once daily [Active]; - PMHx: 08:58 "heart valve replacement"; Hyperlipidemia; Hypertension; Myocardial infarction; ch bleeding ulcers; 09:20 CAD; COPD; aortic stenosis; tachycardia; fatigue; melena; vertigo; ataxia; acute, ch resolved now; TIA; dyspnea; hypokalemia; syncope; - Immunization history:: Adult Immunizations up to date. - Social history:: Smoking status: Patient/guardian denies using tobacco. - Ebola Screening: : Patient negative for fever greater than or equal to 101.5 degrees Fahrenheit, and additional compatible Ebola Virus Disease symptoms Patient denies exposure to infectious person Patient denies travel to an Ebola-affected area in the 21 days before illness onset No symptoms or risks identified at this time. Screenin:02 Abuse screen: Denies threats or abuse. Denies injuries from another. Nutritional screening: No deficits noted. Tuberculosis screening: No symptoms or risk factors identified. Fall Risk None identified. Assessment: 09:02 Reassessment: Patient appears in no apparent distress at this time. No changes from previously documented assessment. Patient and/or family updated on plan of care and expected duration. Pain level reassessed. 09:53 Reassessment: recollect lactate sent to lab. pt is sitting upright in bed, states he ch feels a little better. no s/s of distress, family at bedside updated on plan of care. Vital Signs: 08:58 BP 120 / 67; Pulse 129; Resp 28; Temp 103.2; Pulse Ox 86% on R/A; Pain 0/10; ch 09:08 Weight 88.45 kg (R); sg 09:54 BP 92 / 52; Pulse 106; Resp 26; Temp 101.3; Pulse Ox 94% on NC; Pain 0/10; ch 10:30 BP 92 / 49; Pulse 83; Resp 17; Pulse Ox 97% on 3 lpm NC; sg 11:48 BP 96 / 58; Pulse 85; Resp 23 S; Temp 98.9(O); Pulse Ox 98% on 3 lpm NC; jl7 08:58 pt placed on NC at 2 L O2 increases to 93% ch 09:08 per pt son sg ED Course: 08:43 Patient arrived in ED. snw 08:43 Leah Griffin FNP-C [facility]. snw 08:43 Calixto Muleler MD is Attending Physician. snw 08:54 Erin Nieves, HENRRY is Primary Nurse. ch 08:56 Triage completed. ch 08:58 Arm band placed on left wrist. Patient placed in an exam room, on a stretcher, on ch oxygen, on laundry aide, on pulse oximetry. EKG completed in triage. Results shown to MD. 09:02 No apparent distress. Resting quietly. ch 09:02 Patient has correct armband on for positive identification. Placed in gown. Bed in low ch position. Call light in reach. Side rails up X2. Adult w/ patient. scrap preparer on. Pulse ox on. NIBP on. PO fluids given. 09:02 Maintain EMS IV. Dressing intact. Good blood return noted. Site clean \\T\\ dry. Gauge \\T\\ ch site: 20 R AC. 09:10 Assisted with urinal. Cleaned of incontinence. Linen changed. sg 09:17 First set of blood cultures drawn by me. Missed attempt(s): 22 gauge in left wrist. dh3 Bleeding controlled, band aid applied, catheter tip intact. 09:17 lactate drawn by me and sent to lab. dh3 09:27 X-ray completed. Portable x-ray completed in exam room. Patient tolerated procedure jb2 well. 09:30 Chest Single View XRAY In Process Unspecified. EDMS 09:35 Second set of blood cultures drawn by me. dh3 09:50 EKG done, by legal technician. reviewed by Leah FERNANDEZ. at1 09:54 Mónica Butler MD is Hospitalizing Provider. snw 10:09 Primary Nurse role handed off by Erin NievesHENRRY sg 10:09 Salazar Frazier, RN is Primary Nurse. 10:54 Hospitalizing Provider role handed off by Mónica Butler MD sn 10:54 Torey Huynh MD is Hospitalizing Provider. snw 11:02 Notified Nurse Practitioner and/or Physician Network Cabler of a critical lab result(s), sg Lactate 4.4. 13:26 No provider procedures requiring assistance completed. Patient admitted, IV remains in tw2 place. Administered Medications: 09:10 Drug: Tylenol Liquid 15 mg/kg Route: PO; sg 09:20 Drug: NS 0.9% (30 ml/kg) 30 ml/kg Route: IV; Rate: bolus; Site: right antecubital; sg 10:00 Drug: Cefepime 1 grams Route: IVPB; Rate: 200 ml/hr; Infused Over: 30 mins; Site: right sg antecubital; 10:30 Follow up: Response: No adverse reaction; IV Status: Completed infusion sg Point of Care Testing: Blood Glucose: 09:20 Blood Glucose: 149 mg/dL; sg Ranges: Outcome: :54 Decision to Hospitalize by Provider. snw 13:04 Admitted to ICU accompanied by nurse, accompanied by tech, family with patient, via sg stretcher, room 3, with oxygen, on monitor, with chart, Report called to HENRRY Desir 13:04 Condition: stable 13:04 Instructed on the need for admit, safety practices, Demonstrated understanding of instructions, follow-up care. 13:26 Patient left the ED. tw2 14:18 Patient left the ED. ag Signatures: Dispatcher [employer] EDMS Erin Nieves RN RN Salazar Frazier, HENRRY SALES Leah Griffin, FISHING FLOATS ASSEMBLER-C FISHING FLOATS ASSEMBLER-Csnw Brian Bañuelos jb2 Netta Santos, fretted instrument maker hand EKG Tat1 Rachael Ramos Tara RN RN tw2 Zunilda Molina RN RN 7 Laya Lucas [facility] Corrections: (The following items were deleted from the chart) 09:21 08:54 Initial Sepsis Screen: Does the patient meet any 2 criteria? No. Patient's initial sepsis screen is negative. Does the patient have a suspected source of infection? No. Patient's initial sepsis screen is negative. 09:54 09:02 Reassessment: Patient appears in no apparent distress at this time. Patient ch and/or family updated on plan of care and expected duration. Pain level reassessed. Patient is alert, oriented x 3, equal unlabored respirations, skin warm/dry/pink.
--- NOTE | 2018-03-09 09:54 | EDPHYS ---
Physician Documentation [facility] Name: Rusty Yarbrough Age: 83 yrs Sex: Male : 1935 Arrival Date: 03/09/2018 Time: 08:43 Bed 5 Private MD: ED Physician Calixto Mueller HPI: 03/09 08:50 This 83 yrs old Male presents to ER via Unassigned with complaints of fever. snw 08:50 The patient reports fever, that was measured at 102.5 degrees Fahrenheit. Onset: The snw symptoms/episode began/occurred acutely. Modifying factors: hospitalized recently for sepsis. Associated signs and symptoms: Pertinent positives: altered mental status,\\E\\ vomiting. Severity of symptoms: At their worst the symptoms were moderate. The patient has experienced a previous episode. It is unknown whether or not the patient has recently seen a physician. 08:51 Temp on arrival to ED 103.4. snw Historical: - Allergies: 08:58 Enalapril; ch 09:20 Benadryl; ch - Home Meds: 09:20 tramadol 50 mg Oral tab 1 tab every 6 hours for Pain [Active]; pantoprazole 40 mg oral ch TbEC 1 tab 2 times per day [Active]; metoprolol tartrate 25 mg Oral tab 1 tab 2 times per day [Active]; aspirin 81 mg Oral chew 1 tab once daily [Active]; - PMHx: 08:58 "heart valve replacement"; Hyperlipidemia; Hypertension; Myocardial infarction; ch bleeding ulcers; 09:20 CAD; COPD; aortic stenosis; tachycardia; fatigue; melena; vertigo; ataxia; acute, ch resolved now; TIA; dyspnea; hypokalemia; syncope; - Immunization history:: Adult Immunizations up to date. - Social history:: Smoking status: Patient/guardian denies using tobacco. - Ebola Screening: : Patient negative for fever greater than or equal to 101.5 degrees Fahrenheit, and additional compatible Ebola Virus Disease symptoms Patient denies exposure to infectious person Patient denies travel to an Ebola-affected area in the 21 days before illness onset No symptoms or risks identified at this time. ROS: 08:50 Eyes: Negative for injury, pain, redness, and discharge, ENT: Negative for injury, snw pain, and discharge, Neck: Negative for injury, pain, and swelling, Cardiovascular: Negative for chest pain, palpitations, and edema, Respiratory: Negative for shortness of breath, cough, wheezing, and pleuritic chest pain, Abdomen/GI: Negative for abdominal pain, nausea, vomiting, diarrhea, and constipation, Back: Negative for injury and pain, : Negative for injury, bleeding, discharge, and swelling, MS/Extremity: Negative for injury and deformity, Skin: Negative for injury, rash, and discoloration, Neuro: Negative for headache, weakness, numbness, tingling, and seizure, Psych: Negative for depression, anxiety, suicide ideation, homicidal ideation, and hallucinations. 08:50 Constitutional: Positive for fever. Exam: 08:47 Head/Face: Normocephalic, atraumatic. Eyes: Pupils equal round and reactive to light, snw extra-ocular motions intact. Lids and lashes normal. Conjunctiva and sclera are non-icteric and not injected. Cornea within normal limits. Periorbital areas with no swelling, redness, or edema. ENT: Nares patent. No nasal discharge, no septal abnormalities noted. Tympanic membranes are normal and external auditory canals are clear. Oropharynx with no redness, swelling, or masses, exudates, or evidence of obstruction, uvula midline. Mucous membranes moist. Neck: Trachea midline, no thyromegaly or masses palpated, and no cervical lymphadenopathy. Supple, full range of motion without nuchal rigidity, or vertebral point tenderness. No Meningismus. Chest/axilla: Normal chest wall appearance and motion. Nontender with no deformity. No lesions are appreciated. 08:47 Respiratory: Lungs have equal breath sounds bilaterally, clear to auscultation and percussion. No rales, rhonchi or wheezes noted. No increased work of breathing, no retractions or nasal flaring. Abdomen/GI: Soft, non-tender, with normal bowel sounds. No distension or tympany. No guarding or rebound. No evidence of tenderness throughout. Back: No spinal tenderness. No costovertebral tenderness. Full range of motion. Skin: Warm, dry with normal turgor. Normal color with no rashes, no lesions, and no evidence of cellulitis. MS/ Extremity: Pulses equal, no cyanosis. Neurovascular intact. Full, normal range of motion. 08:47 Constitutional: The patient appears awake, frail, uncomfortable, incontinent, febrile. Oriented to person and place 08:47 Cardiovascular: Rate: tachycardic, Rhythm: irregular, Pulses: no pulse deficits are appreciated, Heart sounds: murmur, Edema: is not appreciated. 08:47 Neuro: Orientation: to person, place, Mentation: able to follow commands, Babinski testing is normal, seizure activity, is not displayed by the patient. Vital Signs: 08:58 BP 120 / 67; Pulse 129; Resp 28; Temp 103.2; Pulse Ox 86% on R/A; Pain 0/10; ch 09:08 Weight 88.45 kg (R); sg 09:54 BP 92 / 52; Pulse 106; Resp 26; Temp 101.3; Pulse Ox 94% on NC; Pain 0/10; ch 10:30 BP 92 / 49; Pulse 83; Resp 17; Pulse Ox 97% on 3 lpm NC; sg 11:48 BP 96 / 58; Pulse 85; Resp 23 S; Temp 98.9(O); Pulse Ox 98% on 3 lpm NC; jl7 08:58 pt placed on NC at 2 L O2 increases to 93% ch 09:08 per pt son sg MDM: 08:43 Patient medically screened. snw 09:54 Data reviewed: vital signs, nurses notes. Data interpreted: Pulse oximetry: on room air snw is 86 %. Interpretation: hypoxia. Plan: O2 by NC applied. Counseling: I had a detailed discussion with the patient and/or guardian regarding: the historical points, exam findings, and any diagnostic results supporting the discharge/admit diagnosis, lab results, radiology results, the need for further work-up and treatment in the hospital. Physician consultation: regarding admission, to the telemetry unit. 10:54 Physician consultation: Torey Huynh MD was called at 10:54, was contacted at 10:54, snw regarding admission, to the telemetry unit. 03/09 08:57 Order name: Basic Metabolic Panel; Complete Time: 09:41 snw 03/09 08:57 Order name: Blood Culture Adult (2) snw 03/09 08:57 Order name: CBC with Diff; Complete Time: 09:19 snw 03/09 08:57 Order name: CPK; Complete Time: 09:41 snw 03/09 08:57 Order name: Lactate; Complete Time: 11:43 snw 03/09 08:57 Order name: LFT's; Complete Time: 09:41 snw 03/09 08:57 Order name: Procalcitonin; Complete Time: 10:04 snw 03/09 08:57 Order name: Urine Microscopic Only snw 03/09 08:57 Order name: Chest Single View XRAY; Complete Time: 09:41 snw 03/09 08:57 Order name: Flu; Complete Time: 10:03 snw 03/09 14:17 Order name: Urine Dipstick--Ancillary (enter results) ag 03/09 08:57 Order name: Accucheck; Complete Time: 11:21 snw 03/09 08:57 Order name: Cardiac monitoring; Complete Time: 09:05 snw 03/09 08:57 Order name: EKG - Nurse/Tech; Complete Time: 11:21 snw 03/09 08:57 Order name: IV Saline Lock - Large Bore; Complete Time: 09:05 snw 03/09 08:57 Order name: Labs collected and sent; Complete Time: 09:05 snw 03/09 08:57 Order name: O2 Per Protocol; Complete Time: 09:05 snw 03/09 08:57 Order name: O2 Sat Monitoring; Complete Time: 09:05 snw 03/09 08:57 Order name: Urine Dipstick-Ancillary (obtain specimen); Complete Time: 09:05 snw 03/09 09:06 Order name: Urine Dipstick-Ancillary (obtain specimen); Complete Time: 14:15 hb 03/09 09:49 Order name: EKG; Complete Time: 09:49 ag Administered Medications: 09:10 Drug: Tylenol Liquid 15 mg/kg Route: PO; sg 09:20 Drug: NS 0.9% (30 ml/kg) 30 ml/kg Route: IV; Rate: bolus; Site: right antecubital; sg 10:00 Drug: Cefepime 1 grams Route: IVPB; Rate: 200 ml/hr; Infused Over: 30 mins; Site: right sg antecubital; 10:30 Follow up: Response: No adverse reaction; IV Status: Completed infusion sg Point of Care Testing: Blood Glucose: 09:20 Blood Glucose: 149 mg/dL; sg Ranges: Critical Glucose Levels:Adult <50 mg/dl or >400 mg/dl <40 mg/dl or >180 mg/dl Disposition: 03/10 07:20 Co-signature as Attending Physician, Calixto Mueller MD I agree with the assessment and kdr plan of care. Disposition: 03/09/18 09:54 Hospitalization ordered by Torey Huynh for Inpatient Admission. Preliminary diagnosis is Pneumonia, unspecified organism. - Bed requested for Intensive Care Unit. - Status is Inpatient Admission. ag - Condition is Stable. - Problem is new. - Symptoms are unchanged. UTI on Admission? No Critical care time excluding procedures: 03/09 11:43 Critical care time: Bedside Care: 5 minutes, Consultation: 20 minutes, Family snw Intervention: 5 minutes. Total time: 30 minutes Signatures: Dispatcher [employer] Erin Gillis, RN RN Cortney Leonard RN Salazar Tobias RN Calixto Quintana MD MD [facility] Leah Griffin, SEISMIC OBSERVER-C SEISMIC OBSERVER-Csnw Rachael Ramos Heather, RN RN Suzanne Moreno RN RN tw2 Corrections: (The following items were deleted from the chart) 10:54 09:54 Hospitalization Ordered by Mónica Butler MD for Inpatient Admission. Preliminary snw diagnosis is Pneumonia, unspecified organism. Bed requested for Telemetry/MedSurg (Inpatient). Status is Inpatient Admission. Condition is Stable. Problem is new. Symptoms are unchanged. UTI on Admission? No. snw 11:43 10:54 03/09/2018 09:54 Hospitalization Ordered by Torey Huynh MD for Inpatient snw Admission. Preliminary diagnosis is Pneumonia, unspecified organism. Bed requested for Telemetry/MedSurg (Inpatient). Status is Inpatient Admission. Condition is Stable. Problem is new. Symptoms are unchanged. UTI on Admission? No. snw 12:32 11:43 03/09/2018 09:54 Hospitalization Ordered by Torey Huynh MD for Inpatient dw Admission. Preliminary diagnosis is Pneumonia, unspecified organism. Bed requested for Intensive Care Unit. Status is Inpatient Admission. Condition is Stable. Problem is new. Symptoms are unchanged. UTI on Admission? No. snw 13:26 12:32 03/09/2018 09:54 Hospitalization Ordered by Torey Huynh MD for Inpatient tw2 Admission. Preliminary diagnosis is Pneumonia, unspecified organism. Bed requested for Intensive Care Unit. Status is Inpatient Admission. Condition is Stable. Problem is new. Symptoms are unchanged. UTI on Admission? No. dw 14:18 13:26 03/09/2018 09:54 Hospitalization Ordered by Torey Huynh MD for Inpatient ag Admission. Preliminary diagnosis is Pneumonia, unspecified organism. Bed requested for Intensive Care Unit. Status is Inpatient Admission. Condition is Stable. Problem is new. Symptoms are unchanged. UTI on Admission? No. tw2
[2018-03-09] MEDS ORDERED: CEFEPIME 1 GM/100 ML BAG IV ONE (10:00)
[2018-03-09] MEDS ORDERED: ACETAMINOPHEN 500 MG TAB PO PRN (13:03)
[2018-03-09] MEDS ORDERED: ONDANSETRON 4 MG/2 ML VIAL IV PRN (13:03)
[2018-03-09] MEDS ORDERED: VANCOMYCIN/NS 1 gm 1 GM/250 ML BAG IVPB SCH (13:03)
[2018-03-09] MEDS: LEVALBUTEROL 0.63 MG/3 ML NEB NEB SCH ×2 (13:30→19:41)
[2018-03-09] MEDS: IPRATROPIUM BROM 0.5MG/2.5ML NEB SCH ×2 (13:30→19:41)
[2018-03-09] MEDS: NA CHLORIDE 0.9% 1,000 ML IV SCH (13:35)
[2018-03-09 13:54] VITALS: BMI 27.2
[2018-03-09] MEDS ORDERED: VANCOMYCIN 1.5 GM in NA CHLORIDE 0.9% 500 ML IVPB SCH (14:00)
[2018-03-09 14:25] LABS: Urine Bacteria <20 /HPF (NONE SEEN); Urine Culture Reflex Order NOT NEEDED; Urine RBC <5 /HPF (NONE SEEN)
[2018-03-09 14:37] LABS: Urine Blood NEGATIVE (NEG); Urine Glucose NEGATIVE (NEG); Urine Protein NEGATIVE (NEG)
[2018-03-09] MEDS: PIPER/TAZO/NS 3.375gm 3.375 GM/100 ML BAG IVPB SCH (16:54)
--- NOTE | 2018-03-09 17:58 | P.HP ---
Certification for Inpatient Patient admitted to: Inpatient With expected LOS: >2 Midnights Patient will require the following post-hospital care: None Practitioner: I am a practitioner with admitting privileges, knowledge of patient current condition, hospital course, and medical plan of care. Services: Services provided to patient in accordance with Admission requirements found in Title 42 Section 412.3 of the Code of Federal Regulations Patient History Date of Service: 03/09/18 Primary Care Provider: Dr Perry Reason for admission: PNA History of Present Illness: This is a 83-year-old male with significant past medical history of COPD, CAD, CVA, aortic stenosis with AVR, and recent GI bleeding who was recently admitted to the hospital about 2 weeks ago and was discharged home who comes in today complaining of having some generalized weakness for past couple of days which got progressively worse last night and thus he decided to come to the ER today. Patient's family at bedside states that last night he started having some fever and chills and thus he decided to come to the ER. Fever was as high as 103 at home. Patient states that he has not had any sick contacts with anybody. However since new year's he has been feeling weak and lethargic. Denies having any shortness of breath chest pain nausea vomiting or any other associated symptoms. In the ER patient was found to have severe sepsis and patient was thus admitted to the hospital for sepsis secondary to pneumonia. Allergies enalapril [Enalapril] Allergy (Mild, Verified 12/01/17 15:54) Itching/Hives/Rash diphenhydramine HCl [From Benadryl] Allergy (Verified 12/01/17 15:54) Unknown Home Medications: Aspirin [Aspir-Low] 81 mg PO DAILY #30 tab 02/23/18 Pantoprazole [Protonix Tab*] 40 mg PO BIDAC #60 tab 02/23/18 Tramadol HCl [Ultram] 50 mg PO Q6H PRN #30 tablet 02/23/18 - Past Medical/Surgical History Has patient received pneumonia vaccine in the past: Yes Diabetic: No -: Hyperlipidemia -: CAD with prior CABG -: COPD -: PROSTATE CA -: History CVA, TIA -: Severe aortic stenosis with history of bioprosthetic valve -: [employer] -: HTN -: [place] -: GI Ulcer with bleeding -: CABG -: C-Spine disc surgery -: Asthma -: Bioprosthetic valve replacement, aorta Psychosocial/ Personal History: Patient has children. - Family History Father -: Lung disease, Stroke Notes: passed in 89 from stroke - Social History Smoking Status: Never smoker Alcohol use: No CD- Drugs: No Caffeine use: Yes Place of Residence: Home Review of Systems 10-point ROS is otherwise unremarkable Physical Examination - Vital Signs Temperature: 98.9 F Blood Pressure: 109/56 Pulse: 90 Respirations: 24 Pulse Ox (%): 100 - Physical Exam General: Alert, Oriented x3, Mild distress HEENT: Atraumatic, PERRLA, Mucous membr. moist/pink, EOMI, Sclerae nonicteric Neck: Supple, 2+ carotid pulse no bruit, No LAD, Without JVD or thyroid abnormality Respiratory: Normal air movement, Expiratory wheezes, Inspiratory wheezes, Rhonchi/gurgles Cardiovascular: Regular rate/rhythm, Normal S1 S2, Systolic murmur Gastrointestinal: Normal bowel sounds, No tenderness Musculoskeletal: No tenderness Integumentary: No rashes Neurological: Normal gait, Normal speech, Normal strength at 5/5 x4 extr, Normal tone, Normal affect Lymphatics: No axilla or inguinal lymphadenopathy - Studies Laboratory Data (last 24 hrs) 03/09/18 09:00: WBC 6.7, Hgb 10.3 L, Hct 30.6 L, Plt Count 257 03/09/18 09:00: Sodium 143, Potassium 3.5, BUN 16, Creatinine 1.39 H, Glucose 150 H, Total Bilirubin 0.6, AST 31, ALT 20, Alkaline Phosphatase 78 Microbiology Data (last 24 hrs): 03/09/18 09:20 Nasopharnyx Influenza Type A Antigen Screen - Final 03/09/18 09:20 Nasopharnyx Influenza Type B Antigen Screen - Final Assessment and Plan - Problems (Diagnosis) (1) Sepsis Current Visit: Yes Status: Acute Plan: Severe Sepsis most likely 2.2 to PNA -Currently Hypotensive. IV fluids with Caution given the History of AVR and restenosis -Started on IV vanc and zosyn given recent Hospitalization and risk for HCAP -Will repeat lab work in AM -Blood, Sputum and urine culture pending. Qualifiers: Sepsis type: sepsis due to unspecified organism Qualified Code(s): A41.9 - Sepsis, unspecified organism (2) PNA (pneumonia) Current Visit: Yes Status: Acute Plan: PNA on the Xray, procal Elevated. Recent hospitalization Most likely HCAP -Sputum Culture pending along with Blood culture -IV vanc and zosyn for now -Pulmonology Consulted. Reccs Awaiting (3) Aortic stenosis, severe Current Visit: No Status: Chronic Plan: Aortic stenosis with AVR and now restenosis. -Requires Surgical Intervention however Pt refused and wants Medical Mgmt. -Will continue to monitor closely -No Anticoagulation 2.2 to GI bleed (4) CAD (coronary artery disease) Onset Date: 02/21/18 Current Visit: No Status: Chronic Plan: Currently Stable. Will restart Home medication Qualifiers: Coronary Disease-Associated Artery/Lesion type: [place] artery [place] vs. transplanted heart: [place] heart Associated angina: without angina Qualified Code(s): I25.10 - Atherosclerotic heart disease of [place] coronary artery without angina pectoris (5) COPD (chronic obstructive pulmonary disease) Onset Date: 02/21/18 Current Visit: No Status: Chronic Plan: Duonebs PRN for now Qualifiers: COPD type: chronic bronchitis (6) Hyperlipidemia Onset Date: 02/21/18 Current Visit: No Status: Chronic Plan: Restart Home medication Qualifiers: (7) Hypertension Onset Date: 02/21/18 Current Visit: No Status: Chronic Plan: Currently Hypotensive 2.2 to Sepsis -Will hold BP meds Qualifiers: Hypertension type: essential hypertension Qualified Code(s): I10 - Essential (primary) hypertension Discharge Plan: Other Plan to discharge in: Greater than 2 days - Advance Directives Does patient have a Living Will: No Does patient have a Durable POA for Healthcare: No - Code Status/Comfort Care Code Status Assessed: Yes Critical Care: Yes
[2018-03-10] MEDS: PIPER/TAZO/NS 3.375gm 3.375 GM/100 ML BAG IVPB SCH ×3 (01:14→17:35)
[2018-03-10] MEDS: IPRATROPIUM BROM 0.5MG/2.5ML NEB SCH ×2 (02:05→08:57)
[2018-03-10] MEDS: LEVALBUTEROL 0.63 MG/3 ML NEB NEB SCH ×2 (02:05→08:57)
[2018-03-10] MEDS: NA CHLORIDE 0.9% 1,000 ML IV SCH (02:25)
[2018-03-10 06:40] LABS: Absolute Lymphocytes (CBC) 1.3 K/uL (0.7-4.9); Absolute Monocytes 0.7 K/uL (0.1-1.3); Absolute Neutrophil 9.3 K/uL (1.8-8.0); Basophils % 0.3 % (0-1.3); Eosinophils % 0.8 % (0-4.4); Hematocrit 23.5 % (39.6-49.0); Lymphocytes % 11.5 % (15.3-44.8); MPV 9.5 fL (7.6-11.3); Monocytes % 5.7 % (3.3-12.3); RBC Red Blood Cell Count 2.53 M/uL (4.33-5.43)
[2018-03-10 06:42] LABS: Albumin 2.4 g/dL (3.4-5.0); Bilirubin Total 1.2 mg/dL (0.2-1.0); Phosphorus 2.6 mg/dL (2.5-4.9); Potassium 3.9 mmol/L (3.5-5.1); Protein, Total 4.9 g/dL (6.4-8.2)
--- NOTE | 2018-03-10 07:50 | EKG ---
Test Date: 2018-03-09 Test Time: 09:42:25 Customer Experience Analyst: [employer] MEASUREMENT RESULTS: Intervals: Rate: 114 RI: 188 QRSD: 92 QT: 336 QTc: 463 [place]: P: 20 RI: 188 QRS: -23 T: 72 INTERPRETIVE STATEMENTS: Sinus tachycardia Nonspecific ST and T wave abnormality Abnormal ECG Compared to ECG 02/20/2018 14:22:23 Ventricular premature complex(es) no longer present Possible ischemia no longer present ST (T wave) deviation still present Electronically Signed On 03-10-18 07:46:27 INFECTION PREVENTION SPECIALIST by Ramon Chaparro
[2018-03-10] MEDS ORDERED: SODIUM CHLORIDE 0.9% 10ML INJ IV PRN ×2 (08:05→08:09)
[2018-03-10] MEDS ORDERED: PANTOPRAZOLE 40 MG INJ IVP SCH (09:00)
[2018-03-10] MEDS: PANTOPRAZOLE 40 MG INJ IVP SCH ×2 (09:03→21:41)
[2018-03-10] MEDS: VANCOMYCIN 1.5 GM in NA CHLORIDE 0.9% 500 ML IVPB SCH (09:04)
--- NOTE | 2018-03-10 09:07 | RAD REPORT ---
EXAM DESCRIPTION: [place] Single View03/10/2018 6:32 am CLINICAL HISTORY: Chest pain COMPARISON: March 09, 2018 FINDINGS: Bilateral calcified pleural plaques are seen. The lungs appear clear of acute infiltrate. The heart is mildly enlarged. Postsurgical changes involve chest
[2018-03-10] MEDS ORDERED: IPRATROPIUM BROM 0.5MG/2.5ML NEB PRN (09:11)
[2018-03-10] MEDS ORDERED: LEVALBUTEROL 0.63 MG/3 ML NEB NEB PRN (09:11)
--- NOTE | 2018-03-10 09:12 | P.CNS ---
Date of Consult: 03/10/18 Primary Care Provider: Dr Perry Chief Complaint: PNA History of Present Illness: Patient is 83 years of age with Cameroonian speaking only admitted with fever is slightly low blood pressure transferred here to the ICU and was found to have a pneumonia currently feeling better also anemic denies any chest pain cough sputum hemoptysis denies any lower extremity edema a significant cardiac history recent history of GI bleeding Allergies enalapril [Enalapril] Allergy (Mild, Verified 12/01/17 15:54) Itching/Hives/Rash diphenhydramine HCl [From Benadryl] Allergy (Verified 12/01/17 15:54) Unknown Home Medications: Aspirin [Aspir-Low] 81 mg PO DAILY #30 tab 02/23/18 Pantoprazole [Protonix Tab*] 40 mg PO BIDAC #60 tab 02/23/18 Tramadol HCl [Ultram] 50 mg PO Q6H PRN #30 tablet 02/23/18 - Past Medical/Surgical History Diabetic: No -: Hyperlipidemia -: CAD with prior CABG -: COPD -: PROSTATE CA -: History CVA, TIA -: Severe aortic stenosis with history of bioprosthetic valve -: [employer] -: HTN -: [place] -: GI Ulcer with bleeding -: CABG -: C-Spine disc surgery -: Asthma -: Bioprosthetic valve replacement, aorta Psychosocial/ Personal History: Patient has children. - Family History Father Medical History: Lung disease, Stroke Notes: passed in 89 from stroke - Social History Smoking Status: Unknown if ever smoked Alcohol use: No CD- Drugs: No Caffeine use: Yes Place of Residence: Home Review of Systems 10-point ROS is otherwise unremarkable General: Weakness Respiratory: Cough, Shortness of Breath Physical Examination Temp Pulse Resp BP Pulse Ox 98 F 69 22 H 113/55 L 97 03/10/18 04:00 03/10/18 07:00 03/10/18 07:00 03/10/18 07:00 03/10/18 07:00 General: Alert, In no apparent distress, Oriented x3 HEENT: Atraumatic Neck: Supple Respiratory: Crackles/rales (Crackles at the left side) Cardiovascular: No edema, Normal S1 S2 Gastrointestinal: Normal bowel sounds, Soft and benign Laboratory Data (last 24 hrs) 03/09/18 09:00: WBC 6.7, Hgb 10.3 L, Hct 30.6 L, Plt Count 257 03/09/18 09:00: Sodium 143, Potassium 3.5, BUN 16, Creatinine 1.39 H, Glucose 150 H, Total Bilirubin 0.6, AST 31, ALT 20, Alkaline Phosphatase 78 - Problems (1) PNA (pneumonia) Current Visit: Yes Status: Acute Plan: Patient is 83 years of age with significant cardiac history admitted with sudden onset of high fever blood pressure was a little low is currently doing better he has a left lung pneumonia lactic acid elevated renal function is now normal cultures are pending continue with Zosyn vancomycin Qualifiers: Pneumonia type: due to unspecified organism
--- NOTE | 2018-03-10 10:43 | P.PN ---
Subjective Date of Service: 03/10/18 Primary Care Provider: Dr Perry Chief Complaint: PNA Patient seen and examined at bedside with RN. Chart reviewed. Case discussed with pulmonology at this time. Patient has no complaints to offer overnight. This morning he has been doing well, feeling well. Denies having any shortness of breath nausea vomiting or any other complaints at this time. Review of Systems 10-point ROS is otherwise unremarkable Physical Examination - Vital Signs Temperature: 98 F Blood Pressure: 98/53 Pulse: 83 Respirations: 22 Pulse Ox (%): 99 - Physical Exam General: Alert, In no apparent distress HEENT: Atraumatic, PERRLA, EOMI Neck: Supple, JVD not distended Respiratory: Normal air movement, Crackles/rales Cardiovascular: Regular rate/rhythm, Normal S1 S2 Gastrointestinal: Normal bowel sounds, No tenderness Musculoskeletal: No tenderness Integumentary: No rashes Neurological: Normal speech, Normal tone, Normal affect Lymphatics: No axilla or inguinal lymphadenopathy - Studies Microbiology Data (last 24 hrs): 03/09/18 09:20 Nasopharnyx Influenza Type A Antigen Screen - Final 03/09/18 09:20 Nasopharnyx Influenza Type B Antigen Screen - Final Medications List Reviewed: Yes Assessment And Plan - Current Problems (Diagnosis) (1) Sepsis Current Visit: Yes Status: Acute Plan: Severe Sepsis most likely 2.2 to PNA. Improved now -white count elevated this morning to 11.4. No left shift noted however. No fever noted overnight. -on IV vanc and zosyn given recent Hospitalization and risk for HCAP -Blood, Sputum and urine culture pending. -full continue antibiotics at this time. Qualifiers: Sepsis type: sepsis due to unspecified organism Qualified Code(s): A41.9 - Sepsis, unspecified organism (2) PNA (pneumonia) Current Visit: Yes Status: Acute Plan: PNA on the Xray, procal Elevated. Recent hospitalization Most likely HCAP -Sputum Culture pending along with Blood culture -IV vanc and zosyn for now -Pulmonology Consulted. Reccs appreciated at this time Qualifiers: Pneumonia type: due to unspecified organism (3) Aortic stenosis, severe Current Visit: No Status: Chronic Plan: Aortic stenosis with AVR and now restenosis. Stable right now -was recently seen by a concentrator operator in [place] who recommends no surgical intervention given the high mortality risk. -Patient to follow up with him in about 1-2 weeks post discharge -Will continue to monitor closely -No Anticoagulation 2.2 to GI bleed (4) CAD (coronary artery disease) Onset Date: 02/21/18 Current Visit: No Status: Chronic Plan: Currently Stable. Will restart Home medication Qualifiers: Coronary Disease-Associated Artery/Lesion type: [place] artery [place] vs. transplanted heart: [place] heart Associated angina: without angina Qualified Code(s): I25.10 - Atherosclerotic heart disease of [place] coronary artery without angina pectoris (5) COPD (chronic obstructive pulmonary disease) Onset Date: 02/21/18 Current Visit: No Status: Chronic Plan: Duonebs PRN for now Qualifiers: COPD type: chronic bronchitis (6) Hyperlipidemia Onset Date: 02/21/18 Current Visit: No Status: Chronic Plan: Restart Home medication Qualifiers: (7) Hypertension Onset Date: 02/21/18 Current Visit: No Status: Chronic Plan: Currently Hypotensive 2.2 to Sepsis -Will hold BP meds Qualifiers: Hypertension type: essential hypertension Qualified Code(s): I10 - Essential (primary) hypertension - Plan Patient is currently pending improvement at this time. Elevated white blood count today. Most likely secondary to reactive leukocytosis. Will continue IV antibiotics at this time. Patient also has elevated T bilirubin. Will get abdominal ultrasound at this time as well. No other complaints to offer overnight. Will monitor closely here in the ICU. Discharge Plan: Home Plan to discharge in: Greater than 2 days - Code Status/Comfort Care Code Status Assessed: Yes Critical Care: No
[2018-03-10 12:16] LABS: Hematocrit 24.8 % (39.6-49.0)
--- NOTE | 2018-03-10 17:04 | RAD REPORT ---
EXAM DESCRIPTION: US - Abdomen Exam Complete - 03/10/2018 4:54 pm CLINICAL HISTORY: Abdominal pain. Elevatedf Tbili and RUQ pain COMPARISON: Abdomen Pelvis W Contrast dated 02/20/2018 FINDINGS: The liver is mildly prominent in size measuring 18 cm in anterior-posterior dimension. No focal liver lesions or intrahepatic biliary dilatation is seen. The gallbladder demonstrates no gallstones, pericholecystic fluid or gallbladder wall thickening. Co mmon bile duct is normal in caliber measuring 3 mm. Both kidneys are normal in size, shape and echotexture. No hydronephrosis, focal lesion of concern or perinephric fluid. 2.9 x 2.9 cm left renal cyst is noted containing a mildly thickened septum. The spleen is normal in size measuring 10 cm. The pancreas and aorta are obscured by bowel gas. The visualized aspects of the IVC are grossly normal. IMPRESSION: Mild hepatomegaly. Mildly complex left renal cyst.
[2018-03-11] MEDS: PIPER/TAZO/NS 3.375gm 3.375 GM/100 ML BAG IVPB SCH ×3 (00:32→19:45)
[2018-03-11 06:04] LABS: Albumin 2.5 g/dL (3.4-5.0); Bilirubin Total 0.8 mg/dL (0.2-1.0); Magnesium 2.1 mg/dL (1.8-2.4); Phosphorus 2.4 mg/dL (2.5-4.9); Potassium 3.8 mmol/L (3.5-5.1); Protein, Total 5.2 g/dL (6.4-8.2)
[2018-03-11 06:05] LABS: Absolute Monocytes 0.5 K/uL (0.1-1.3); Absolute Neutrophil 8.4 K/uL (1.8-8.0); Basophils % 0.2 % (0-1.3); Eosinophils % 4.1 % (0-4.4); Hematocrit 24.8 % (39.6-49.0); MPV 9.5 fL (7.6-11.3); Monocytes % 4.9 % (3.3-12.3)
[2018-03-11] MEDS ORDERED: POTASSIUM PHOS IN 0.9 % NACL 15 MMOL/250 ML BAG IV ONE (08:00)
--- NOTE | 2018-03-11 09:50 | P.PN ---
Subjective Date of Service: 03/11/18 Primary Care Provider: Dr Perry Chief Complaint: PNA Subjective: Improving (Patient is doing much better no new complaints hemoglobin is steadily increasing) Review of Systems Unremarkable General: Weakness Physical Examination - Vital Signs Temperature: 97.9 F Blood Pressure: 126/64 Pulse: 79 Respirations: 26 Pulse Ox (%): 97 - Physical Exam General: Alert, Oriented x3, Cooperative Respiratory: Clear to auscultation bilaterally Cardiovascular: No edema, Regular rate/rhythm - Studies Medications List Reviewed: Yes Assessment & Plan - Problems (Diagnosis) (1) PNA (pneumonia) Current Visit: Yes Status: Acute Plan: Patient is 83 years of age admitted with presumed pneumonia white count is normal cultures are all negative last echocardiogram shows moderate aortic stenosis normal left ventricular function is hypernatremic sputum cultures are pending pro calcitonin mildly elevated patient had a fever on admission continue with present antibiotic until final culture results are available chest x-ray PA and lateral transfer to the floor Qualifiers: Pneumonia type: due to unspecified organism
[2018-03-11] MEDS: PANTOPRAZOLE 40 MG INJ IVP SCH ×2 (10:01→22:56)
[2018-03-11] MEDS: VANCOMYCIN 1.5 GM in NA CHLORIDE 0.9% 500 ML IVPB SCH (10:01)
--- NOTE | 2018-03-11 11:06 | RAD REPORT ---
EXAM DESCRIPTION: Jacquelint Pa And Lat (2 Views)03/11/2018 10:47 am CLINICAL HISTORY: Cough COMPARISON: November 2017 and March 10, 2018 FINDINGS: Bilateral calcified pleural plaques are seen. Left lung opacities have mildly progressed since November 2017 Heart is normal size. Postsurgical changes involve the chest IMPRESSION: Left lung opacities have mildly progressed since November 2017. A mild left pneumonia i s suspected superimposed over pleural plaques
[2018-03-11] MEDS ORDERED: POTASSIUM CL SA 10 MEQ TAB PO ONE (12:00)
[2018-03-11] MEDS: POTASS/SODIUM PHOSPHATE 1 PKT POWD.PACK PO SCH ×3 (12:35→14:56)
--- NOTE | 2018-03-11 19:19 | P.PN ---
Subjective Date of Service: 03/11/18 Primary Care Provider: Dr Perry Chief Complaint: PNA Patient seen and examined at bedside with RN. Chart reviewed. Case discussed with pulmonology at this time. Patient has no complaints to offer overnight. This morning he has been doing well, feeling well. Denies having any shortness of breath nausea vomiting or any other complaints at this time. Review of Systems 10-point ROS is otherwise unremarkable Physical Examination - Vital Signs Temperature: 97.7 F Blood Pressure: 99/59 Pulse: 80 Respirations: 29 Pulse Ox (%): 98 - Physical Exam General: Alert, In no apparent distress HEENT: Atraumatic, PERRLA, EOMI Neck: Supple, JVD not distended Respiratory: Clear to auscultation bilaterally, Normal air movement Cardiovascular: Regular rate/rhythm, Normal S1 S2 Gastrointestinal: Normal bowel sounds, No tenderness Musculoskeletal: No tenderness Integumentary: No rashes Neurological: Normal speech, Normal tone, Normal affect Lymphatics: No axilla or inguinal lymphadenopathy - Studies Medications List Reviewed: Yes Assessment And Plan - Current Problems (Diagnosis) (1) Sepsis Current Visit: Yes Status: Acute Plan: Severe Sepsis most likely 2.2 to PNA. Improved now -No fever noted overnight. -on IV vanc and zosyn given recent Hospitalization and risk for HCAP -Blood, Sputum and urine culture pending. -If culture negative will Deescalate the ABX. Qualifiers: Sepsis type: sepsis due to unspecified organism Qualified Code(s): A41.9 - Sepsis, unspecified organism (2) PNA (pneumonia) Current Visit: Yes Status: Acute Plan: PNA on the Xray, procal Elevated. Recent hospitalization Most likely HCAP -Sputum Culture pending along with Blood culture -IV vanc and zosyn for now -Pulmonology Consulted. Reccs appreciated at this time Qualifiers: Pneumonia type: due to unspecified organism Laterality: unspecified laterality Lung location: unspecified part of lung Qualified Code(s): J18.9 - Pneumonia, unspecified organism (3) Aortic stenosis, severe Current Visit: No Status: Chronic Plan: Aortic stenosis with AVR and now restenosis. Stable right now -was recently seen by a fire alarm dispatcher in [place] who recommends no surgical intervention given the high mortality risk. -Patient to follow up with him in about 1-2 weeks post discharge -Will continue to monitor closely -No Anticoagulation 2.2 to GI bleed (4) CAD (coronary artery disease) Onset Date: 02/21/18 Current Visit: No Status: Chronic Plan: Currently Stable. Will restart Home medication Qualifiers: Coronary Disease-Associated Artery/Lesion type: [place] artery [place] vs. transplanted heart: [place] heart Associated angina: without angina Qualified Code(s): I25.10 - Atherosclerotic heart disease of [place] coronary artery without angina pectoris (5) COPD (chronic obstructive pulmonary disease) Onset Date: 02/21/18 Current Visit: No Status: Chronic Plan: Duonebs PRN for now Qualifiers: COPD type: chronic bronchitis (6) Hyperlipidemia Onset Date: 02/21/18 Current Visit: No Status: Chronic Plan: Restart Home medication Qualifiers: (7) Hypertension Onset Date: 02/21/18 Current Visit: No Status: Chronic Plan: Currently Hypotensive 2.2 to Sepsis -Will hold BP meds Qualifiers: Hypertension type: essential hypertension Qualified Code(s): I10 - Essential (primary) hypertension - Plan Patient is currently pending improvement at this time. Elevated white blood count today. Most likely secondary to reactive leukocytosis. Will continue IV antibiotics at this time. Patient also has elevated T bilirubin. Will get abdominal ultrasound at this time as well. No other complaints to offer overnight. Will monitor closely here in the ICU.
[2018-03-12] MEDS: PIPER/TAZO/NS 3.375gm 3.375 GM/100 ML BAG IVPB SCH ×2 (01:49→09:49)
[2018-03-12 06:20] LABS: Absolute Lymphocytes (CBC) 1.1 K/uL (0.7-4.9); Absolute Monocytes 0.3 K/uL (0.1-1.3); Absolute Neutrophil 3.4 K/uL (1.8-8.0); Basophils % 0.4 % (0-1.3); Eosinophils % 10.6 % (0-4.4); Hematocrit 25.6 % (39.6-49.0); Lymphocytes % 20.1 % (15.3-44.8); MPV 9.7 fL (7.6-11.3); RBC Red Blood Cell Count 2.78 M/uL (4.33-5.43)
[2018-03-12 06:42] LABS: ALT/SGPT 12 U/L (12-78); AST/SGOT 10 U/L (15-37); Albumin 2.4 g/dL (3.4-5.0); Alkaline Phosphatase 47 U/L (45-117); BUN Blood Urea Nitrogen 10 mg/dL (7-18); Bicarbonate 29 mmol/L (21-32); Bilirubin Total 0.7 mg/dL (0.2-1.0); Glucose Level 81 mg/dL (74-106); Magnesium 2.2 mg/dL (1.8-2.4); Phosphorus 3.3 mg/dL (2.5-4.9); Potassium 3.8 mmol/L (3.5-5.1); Protein, Total 5.3 g/dL (6.4-8.2); Sodium Level 146 mmol/L (136-145)
[2018-03-12 07:51] VITALS: O2SAT 98
[2018-03-12] MEDS: VANCOMYCIN 1.5 GM in NA CHLORIDE 0.9% 500 ML IVPB SCH (08:00)
[2018-03-12] MEDS ORDERED: POTASSIUM 25 MEQ EFFERV TAB PO ONE (09:00)
[2018-03-12] MEDS: PANTOPRAZOLE 40 MG INJ IVP SCH (09:49)
[2018-03-12] MEDS ORDERED: VANCOMYCIN 1.5 GM in NA CHLORIDE 0.9% 500 ML IVPB SCH (10:00)
[2018-03-12 13:31] VITALS: BP 138/65; TEMP 98.2
--- NOTE | 2018-03-12 14:26 | P.DS ---
Admission Date: 03/09/18 Discharge Date: 03/12/18 Primary Care Provider: Dr Perry Disposition: ROUTINE DISCHARGE Discharge Condition: GOOD Reason for Admission: PNA - Problems (1) Sepsis Current Visit: Yes Status: Acute Qualifiers: Sepsis type: sepsis due to unspecified organism Qualified Code(s): A41.9 - Sepsis, unspecified organism (2) PNA (pneumonia) Current Visit: Yes Status: Acute Qualifiers: Pneumonia type: due to unspecified organism Laterality: unspecified laterality Lung location: unspecified part of lung Qualified Code(s): J18.9 - Pneumonia, unspecified organism (3) Aortic stenosis, severe Current Visit: No Status: Chronic (4) CAD (coronary artery disease) Onset Date: 02/21/18 Current Visit: No Status: Chronic Qualifiers: Coronary Disease-Associated Artery/Lesion type: [place] artery [place] vs. transplanted heart: [place] heart Associated angina: without angina Qualified Code(s): I25.10 - Atherosclerotic heart disease of [place] coronary artery without angina pectoris (5) COPD (chronic obstructive pulmonary disease) Onset Date: 02/21/18 Current Visit: No Status: Chronic Qualifiers: COPD type: chronic bronchitis (6) Hyperlipidemia Onset Date: 02/21/18 Current Visit: No Status: Chronic Qualifiers: (7) Hypertension Onset Date: 02/21/18 Current Visit: No Status: Chronic Qualifiers: Hypertension type: essential hypertension Qualified Code(s): I10 - Essential (primary) hypertension Brief History of Present Illness: This is a 83-year-old male with significant past medical history of COPD, CAD, CVA, aortic stenosis with AVR, and recent GI bleeding who was recently admitted to the hospital about 2 weeks ago and was discharged home who comes in today complaining of having some generalized weakness for past couple of days which got progressively worse last night and thus he decided to come to the ER today. Patient's family at bedside states that last night he started having some fever and chills and thus he decided to come to the ER. Fever was as high as 103 at home. Patient states that he has not had any sick contacts with anybody. However since new year's he has been feeling weak and lethargic. Denies having any shortness of breath chest pain nausea vomiting or any other associated symptoms. In the ER patient was found to have severe sepsis and patient was thus admitted to the hospital for sepsis secondary to pneumonia. Hospital Course: Overall during the hospital stay patient remained stable Patient was initially admitted to the hospital for hospital-acquired pneumonia. Was kept on IV vancomycin and Zosyn while here in the hospital and was placed on BiPAP initially and was weaned off to oxygen. Patient had marked improvement after starting at the antibiotics. Pulmonology was consulted who agreed with the plan. Patient was successfully weaned off of BiPAP to nasal cannula and was thus transferred to the regular floor. On the regular floor patient did well overall was ambulating fine. Patient then was discharged home under stable condition was given prescription for Ceftin and azithromycin to be taken for total of 14 days. Patient was asked to follow up with primary care provider about 1-2 days post discharge. All other chronic conditions remained stable while here in the hospital no other complications were noted. Vital Signs/Physical Exam: Temp Pulse Resp BP Pulse Ox 98.2 F 82 18 138/65 96 03/12/18 12:00 03/12/18 12:00 03/12/18 12:00 03/12/18 12:00 03/12/18 12:00 General: Alert, In no apparent distress HEENT: Atraumatic, PERRLA, EOMI Neck: Supple, JVD not distended Respiratory: Clear to auscultation bilaterally, Normal air movement Cardiovascular: Regular rate/rhythm, Normal S1 S2 Gastrointestinal: Normal bowel sounds, No tenderness Musculoskeletal: No tenderness Integumentary: No rashes Neurological: Normal speech, Normal tone, Normal affect Lymphatics: No axilla or inguinal lymphadenopathy Laboratory Data at Discharge: WBC 5.4 K/uL (4.3-10.9) D 03/12/18 05:24 Hgb 8.4 g/dL (13.6-17.9) L 03/12/18 05:24 Hct 25.6 % (39.6-49.0) L 03/12/18 05:24 Plt Count 164 K/uL (152-406) 03/12/18 05:24 Sodium 146 mmol/L (136-145) H 03/12/18 05:24 Potassium 3.8 mmol/L (3.5-5.1) 03/12/18 05:24 BUN 10 mg/dL (7-18) 03/12/18 05:24 Creatinine 0.80 mg/dL (0.55-1.3) 03/12/18 05:24 Glucose 81 mg/dL (74-106) 03/12/18 05:24 Phosphorus 3.3 mg/dL (2.5-4.9) 03/12/18 05:24 Magnesium 2.2 mg/dL (1.8-2.4) 03/12/18 05:24 Total Bilirubin 0.7 mg/dL (0.2-1.0) 03/12/18 05:24 AST 10 U/L (15-37) L 03/12/18 05:24 ALT 12 U/L (12-78) 03/12/18 05:24 Alkaline Phosphatase 47 U/L (45-117) 03/12/18 05:24 Home Medications: Aspirin [Aspir-Low] 81 mg PO DAILY #30 tab 02/23/18 Pantoprazole [Protonix Tab*] 40 mg PO BIDAC #60 tab 02/23/18 Tramadol HCl [Ultram] 50 mg PO Q6H PRN #30 tablet 02/23/18 Azithromycin 500 mg PO BID #28 tablet 03/12/18 Cefuroxime [Ceftin] 250 mg PO BID #28 tab 03/12/18 New Medications: Azithromycin 500 mg PO BID #28 tablet Cefuroxime [Ceftin] 250 mg PO BID #28 tab Diet: Regular Activity: Ad gio Followup: Gregorio Luna MD [ACTIVE - CAN ADMIT] - 1 Week
--- NOTE | 2018-03-12 15:02 | RAD REPORT ---
EXAM DESCRIPTION: RAD - Chest Single View - 03/12/2018 2:46 pm CLINICAL HISTORY: PNA Chest pain. COMPARISON: Chest Pa And Lat (2 Views) dated 03/11/2018; Chest Single View dated 03/10/2018; Chest Singl e View dated 03/09/2018; Chest Single View dated 12/13/2017 FINDINGS: Portable technique limits examination quality. Prominent calcified pleural plaquing is again noted bilaterally. Increased left midlung pulmonary mar kings appear mildly progressive since the comparative study, suggesting pneumonia. The heart is mikie l in size. No displaced fractures.Sternotomy wires present. IMPRESSION: Mild progression in left mid lung pulmonary opacities since comparative study.
[2018-03-13] MEDS ORDERED: VANCOMYCIN 1.5 GM in NA CHLORIDE 0.9% 500 ML IVPB SCH (02:00)
== END 2018-03-12 16:38 | disposition home health service (06) | DRG 871 ==
LOC: ER 08:39 → ERHOLD 11:05 → 3RD-ICU 13:04 → 4TH 03-11 20:30
PROVIDERS: ADMIT Family Medicine; ATTEND Family Medicine
DX: A41.9 Sepsis, unspecified organism (principal); J18.9 Pneumonia, unspecified organism; J44.9 Chronic obstructive pulmonary disease, unspecified; I25.10 Atherosclerotic heart disease of native coronary artery without angina pectoris; E78.5 Hyperlipidemia, unspecified; I35.0 Nonrheumatic aortic (valve) stenosis; Z86.73 Personal history of transient ischemic attack (TIA), and cerebral infarction without residual deficits
CPT/HCPCS: 36415; 71045; 71046; 76700; 80048; 80053; 80076; 80202; 81003; 81015; 82274; 82550; 82962; 83605; 83735; 84100; 84145; 85014; 85018; 85025; 87040; 87804; 93005; 94640; 94760; 96365; 96375; 99285; C9113; J0692; J2543; J7030

== ENCOUNTER 2018-08-08 10:39 | Emergency (ER) | payer OTHER ==
--- OUTSIDE RECORDS SUMMARY | 2018-08-08 10:57 | XMS REPORT | Clinical Summary ---
:1935 Author Organization [facility] Address [address] [place] [address] Care Team Providers Name Role Phone Provider, Unknown Primary Care Provider Unavailable Allergies No Known Allergies Medications Medication Sig Dispensed Refills Start Date End Date Status metoprolol tartrate Take 25 mg by 0 11/14/2017 Active (LOPRESSOR) 25 mg mouth 2 (two) tablet times a day. traMADol (ULTRAM) 50 mg Take 50 mg by 0 12/14/2017 Active tablet mouth every 6 (six) hours as needed. apixaban (ELIQUIS) 5 mg Take 1 tablet (5 180 tablet 1 12/28/2017 Active tablet mg total) by mouth 2 (two) times a day. azithromycin 0 03/12/2018 Active (ZITHROMAX) 500 MG tablet cefuroxime (CEFTIN) 250 0 03/12/2018 Active MG tablet acetaminophen-codeine 0 03/14/2018 Active (TYLENOL WITH CODEINE #3) 300-30 mg per tablet pantoprazole (PROTONIX) Take 40 mg by 0 Active 40 MG EC tablet mouth daily. Active Problems Problem Noted Date Anemia 03/21/2018 S/P aortic valve replacement with bioprosthetic valve 12/21/2017 Overview: Chronically elevated AV gradients ~ 3.3 m/s since at least 2014. Essential hypertension 12/21/2017 Encounters Date Type Specialty Care Team Description 03/21/2018 Multidisciplinary Visit Cardiology Little, Nonrheumatic aortic valve stenosis (Primary Dx); Luis Stephen, S/P aortic valve replacement with bioprosthetic valve; Essential hypertension; Anemia, unspecified type 03/21/2018 Hospital Encounter Procedural Jacey, Nonrheumatic aortic valve stenosis; Cardiology Luis Stephen S/P AVR 02/22/2018 Orders Only Cardiology Any Galindo, S/P AVR (Primary MA Dx) 02/20/2018 Intake Access N/A 01/04/2018 Orders Only Cardiology Therese, Nonrheumatic aortic valve stenosis (Primary Dx); KAYE Child S/P AVR 12/28/2017 Telephone Cardiology Jacey pharm phone number Luis Stephen MD 12/28/2017 Refill Cardiology Jacey, Med Refill Luis Stephen MD 12/22/2017 Telephone Cardiology Jacey Pt to start eliquis Luis H., 5mg bid and have MD cta in 3 months. 12/21/2017 Telephone Cardiology lissy Garcia on CTA [place] 12/20/2017 Multidisciplinary Visit Cardiology Jacey, Nonrheumatic aortic valve stenosis (Primary Dx); Luis Stephen S/P aortic valve replacement with bioprosthetic valve; Essential hypertension 12/20/2017 Office Visit Cardiovascular Carlos, Severe aortic Elia stenosis (Primary MD Donta Dx) 12/20/2017 Hospital Encounter Procedural Carlos, Nonrheumatic aortic Cardiology Elia valve stenosis MD Donta 12/20/2017 Hospital Encounter Procedural Carlos, Cardiology Elia Longo MD 12/08/2017 Orders Only Cardiovascular Rachael Bentley, Nonrheumatic aortic valve stenosis (Primary Dx); RN Preoperative respiratory examination after 08/07/2017 Family History Medical History Relation Name Comments [...] Vital Sign Reading Time Taken Blood Pressure 140/65 03/21/2018 1:05 PM [facility] Pulse 72 03/21/2018 1:05 PM [facility] Temperature 36.3 C (97.4 F) 03/21/2018 1:05 PM [facility] Respiratory Rate 14 03/21/2018 1:05 PM [facility] Oxygen Saturation - - Inhaled Oxygen Concentration - - Weight 81.6 kg (180 lb) 03/21/2018 1:05 PM [facility] Height 175.3 cm (5' 9") 03/21/2018 1:05 PM [facility] Body Mass Index 26.58 03/21/2018 1:05 PM [facility] Plan of Treatment Date Type Specialty Care Team Description 03/20/2019 Multidisciplinary Visit Cardiology Luis Miller MD [address] [facility] [address] [place] [id number] Health Maintenance Due Date Last Done Comments SHINGLES VACCINES (#1) 1983 65+ PNEUMOCOCCAL VACCINE (1 of 2 - PCV13) 1998 PNEUMOCOCCAL POLYSACCHARIDE VACCINE AGE 65 AND OVER 1998 INFLUENZA VACCINE 10/05/2018 Procedures Procedure Name Priority Date/Time Associated Diagnosis Comments ECG 12-LEAD Routine 03/21/2018 12:58 Nonrheumatic aortic Results for this PM [facility] valve stenosis procedure are in the results section. CV CTA TAVR WORKUP Routine 03/21/2018 11:55 Nonrheumatic aortic Results for this (CTA CORONARY,CTA AM [facility] valve stenosis procedure are in THORACIC AORTA,CTA S/P AVR the results ABDOMEN PELVIS) W section. CONTRAST ESTIMATED GFR Routine 03/21/2018 10:38 Results for this AM [facility] procedure are in the results section. POC CREATININE Routine 03/21/2018 10:38 Results for this AM [facility] procedure are in the results section. ECG 12-LEAD Routine 12/20/2017 2:04 Nonrheumatic aortic [...] are in SPECTRAL COLOR DOPPLER the results (72124) section. after 08/07/2017 Results ECG 12 lead (03/21/2018 12:58 PM [facility])Only the most recent of2 resultswithin the time period is included. Ventricular rate 78 [facility] Atrial rate 78 [facility] DC interval 188 [facility] QRSD interval 96 [facility] QT interval 390 [facility] QTC interval 444 [facility] P axis 1 50 [facility] QRS axis 1 7 [facility] T wave axis -6 [facility] EKG impression Sinus rhythm with frequent premature ventricular complexes- Poor R Wave Progression-T wave abnormality, consider inferior ischemia-Abnormal ECG-In automated comparison with ECG of 20-DEC-2017 14:04,-premature ventricular complexes are now [facility] MUSE present- :04 PM Specimen Narrative Performed At Performing Organization Address City/State/Zipcode Phone Number [facility] MUSE [phone] tavr workup (cta coronary,cta thoracic aorta,cta abdomen pelvis) w contrast (03/21/2018 11:55 AM SEAM[facility])Only the most recent of2 resultswithin the time period is included. Specimen Narrative Performed At [facility] and Cardiac CT [address] [place] [address] CT Chest with Contrast Report Pat.Name:Pretty MATHUR.ID:[id number] .Date: 03/21/2018 Refer.MD:LUIS MILLER MD Exam Time: 10:42:00 AM Study Type:CT Chest W Contrast Height:69inWeight: 175lb BSA: 1.95 m2 DOBAge:[age]Y Sex: MALEBP: 141/63 HR:68 bpm Nuclear Tech:Farhad Garcia, RT(NM)(CT), [facility] Pat. Stat.:Outpatient CPT - 4: CCTA w Thoracic Aorta (NonCongenital) [id number], TAVR w Coronaries [id number] Nuclear Event ID:[id number] Order ID:[id number] Reason for Study:S/P AVR revaeluation for AVR thrombus and valve function, TAVR workup Procedures:CT Retrospective, CT Prospective (phases), CT Flash mode Race:C SUMMARY: Technique: IV contrast was administered and sequential 0.[address] cuts were obtained through the chest using the Siemens Somatom Force CT scanner. Post-processing and 3D reconstruction were done using the VCNC workstation. Interactive image viewing and volumetric display and analysis were also performed. 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 Left anterior descending (LAD): A normal sized 3.8mm artery which wraps around the apex and gives off one diagonal branch. No significantatherosclerotic plaque present. The first diagonal [...] 4.5 cm. Normal PV anatomy. Left superior PV13 mm. Left inferior PV17 mm. Right superior PV16 mm. Right inferior PV16 mm. There is no evidence of the left atrial appendage clot. Left Ventricular Valve Morphology/Function: LV septal wall thickness 15 mm. Moderate LVH. There is a bio-prosthetic aortic valve without evidence of dehiscence or central aortic regurgitation. No evidence of thrombus on the valve. Pericardium: No pericardium effusion or pericardial thickening. Thoracic Aortic Dimensions: No aortic aneurysm or dissection is seen. Aortic root3.8 cm. Sinotubular junction 3.0 cm. Mid ascending thoracic aorta 3.7 cm. Descending thoracic aorta 2.9 cm. Non-Cardiac Findings: Sternotomy wires noted. Diffuse pleural calcifications bilaterally consistent with previous asbestos exposure. Left lower lobe calcified granuloma. Small hiatal hernia. CONCLUSION CT coronary angiography shows no significant coronary artery atherosclerosis or coronary artery stenosis. There is a bio-prosthetic aortic valve without evidence of dehiscence or central aortic regurgitation. No evidence of thrombus on the valve. The previously observed valve thrombus is no longer present. 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 Vascular measurements as noted above. STUDY QUALITY The study quality is good. COMMENTS None. The above report was based on a dedicated Cardiovascular CTA Protocol and interpreted by a Senior Service Technician.Should a more comprehensive assessment of non-cardiovascular findings be desired, please consult a radiologist.These images are available in the [facility] DXY PACS system. Signed 03/21/2018 04:09 PM Reid Lees MD Procedure Note Interface, Radiology Results In - 03/21/2018 5:19 PM [facility] Nuclear Cardiology and Cardiac CT [address] [place] [address] CT Chest with Contrast Report Pat.Name: TREV MATHUR Pat.ID: [id number] .Date: 03/21/2018 Refer.MD: LUIS MILLER MD Exam Time: 10:42:00 AM Study Type:CT Chest W Contrast Height: 69in Weight: 175lb BSA: 1.95 m2 Age: 10 1935,83Y Sex: MALE BP: 141/63 HR: 68 bpm Nuclear Tech:RT Nabeel([place])(CT), [facility] Pat. Stat.:Outpatient CPT - 4: CCTA w Thoracic Aorta (NonCongenital) [id number];[id number], TAVR w Coronaries [id number] Nuclear Event ID:[id number] Order ID: [id number] Reason for Study:S/P AVR revaeluation for AVR thrombus and valve function, TAVR workup Procedures:CT Retrospective, CT Prospective (phases), CT Flash mode Race: C SUMMARY: Technique: IV contrast was administered and sequential 0.[address] cuts were obtained through the chest using the Siemens Quat-Eom DerbyJackpot CT scanner. Post-processing and 3D reconstruction were done using the VCNC workstation. Interactive image viewing and volumetric display and analysis were also performed. 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 Left anterior descending (LAD): A normal sized 3.8mm artery which wraps around the apex and gives off one diagonal branch. No significant atherosclerotic plaque present. The first [...] 4.5 cm. Normal PV anatomy. Left superior PV13 mm. Left inferior PV17 mm. Right superior PV16 mm. Right inferior PV16 mm. There is no evidence of the left atrial appendage clot. Left Ventricular Valve Morphology/Function: LV septal wall thickness 15 mm. Moderate LVH. There is a bio-prosthetic aortic valve without evidence of dehiscence or central aortic regurgitation. No evidence of thrombus on the valve. Pericardium: No pericardium effusion or pericardial thickening. Thoracic Aortic Dimensions: No aortic aneurysm or dissection is seen. Aortic root 3.8 cm. Sinotubular junction 3.0 cm. Mid ascending thoracic aorta 3.7 cm. Descending thoracic aorta 2.9 cm. Non-Cardiac Findings: Sternotomy wires noted. Diffuse pleural calcifications bilaterally consistent with previous asbestos exposure. Left lower lobe calcified granuloma. Small hiatal hernia. CONCLUSION CT coronary angiography shows no significant coronary artery atherosclerosis or coronary artery stenosis. There is a bio-prosthetic aortic valve without evidence of dehiscence or central aortic regurgitation. No evidence of thrombus on the valve. The previously observed valve thrombus is no longer present. 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 Vascular measurements as noted above. STUDY QUALITY The study quality is good. COMMENTS None. The above report was based on a dedicated Cardiovascular CTA Protocol and interpreted by a Senior Service Technician. Should a more comprehensive assessment of non-cardiovascular findings be desired, please consult a radiologist. These images are available in the [facility] DXY PACS system. Signed 03/21/2018 04:09 PM Reid Lees MD Performing Organization Address City/[facility] Cent[facility]ode Phone Number [facility] [address] [place] [address] Estimated GFR (03/21/2018 10:38 AM [facility])Only the most recent of2 resultswithin the time period is included. Estimated GFR 78 mL/min/1.73 [facility] Comment: HOSPITAL CatergoryUnitsInterpretation G1 >=90 Normal or high G2 60-89Mildly decreased [id number] to moderately decreased G2p07-13Epxxofzkxd to severely decreased G4 15-29Severely decreased G5 <15Kidney failure The eGFR was calculated using the Chronic Kidney Disease Epidemiology Collaboration (CKD-EPI) equation. Interpretation is based on recommendations of the National Kidney Foundation-Kidney Disease Outcomes Quality Initiative (NKF-KDOQI) published in 2014. Specimen Blood Performing Organization Address City/[facility]/Zipcode Phone Number [facility] DEPARTMENT OF PATHOLOGY AND [address] [place] [address] POC creatinine (03/21/2018 10:38 AM [facility])Only the most recent of2 resultswithin the time period is included. POC creatinine 0.9 0.7 - 1.2 mg/dl [facility] Comment: HOSPITAL Meter ID: [id number] Information Operator: Jose Llamas Specimen Blood Performing Organization Address City/State/Zipcode Phone Number [facility] DEPARTMENT OF PATHOLOGY AND [address] [place] [address] Echocardiogram complete w contrast and 3D if needed (12/20/2017 11:52 AM CDT) Specimen Narrative Performed At [facility] Echocardiography Report [address] [place] [address] Pat.Name:Pretty MATHUR.ID:[id number] .Date: 12/20/2017Refer.MD:ELIA CORTES MD Exam Time: 10:34:00 AM Study Type:Routine Echo Height:68inWeight: 175lb BSA: 1.93 m2 DOBAge:3,82Y Sex: MALEBP: 138/64 HR:55 bpmSonogrphr: Kim Feldman RDCS Pat. Stat.:OutpatientStudy Status:Final Echo Event ID:[id number] Order ID:[id number] Reason for Study:AORTIC VALVE STENOSIS Procedures:2D Echo, Colorflow Doppler, Intravenous Optison Contrast Race: SUMMARY: LV EF is hyperdynamic. Diastolic dysfunction Grade I (Mild): Impaired relaxation with normal LV filling pressures. Stable appearing Bioprosthetic aortic valve. Surgical Prosthetic AV Doppler velocity index is 0.35 (normal>0.25). No significant change in Aortic valve peak velocities from 2014. Suspect PPM given indexed TAYO of < [...] PA systolic pressure. MEASUREMENTS: 2D Parasternal [place] Ds4.2 cmLV%fs 30.9 % Ao An2.2 cmIVSd 0.9 cm Ao Rtd 2.9 cmIndex 1.5 cm/m LVPWd0.9 cm LVOT 2.1 cm LV Oltx881.6 g(122-174) LVIDd5.1 cmIndex 2.7 cm/m LVM Index [...] 12/21/2017 2:47 PM CDT Echocardiography Report [address] [place] [address] Pat.Name: TREV MATHUR Pat.ID: [id number] .Date: 12/20/2017 Refer.MD: ELIA CORTES MD Exam Time: 10:34:00 AM Study Type:Routine Echo Height: 68in Weight: 175lb BSA: 1.93 m2 Age: 12 1935,82Y Sex: MALE BP: 138/64 HR: 55 bpm Sonogrphr: Kim Feldman RDCS Pat. Stat.:Outpatient Study Status:Final Echo Event ID:[id number] Order ID: [id number] Reason for Study:AORTIC VALVE STENOSIS Procedures:2D Echo, Colorflow Doppler, Intravenous Optison Contrast Race: SUMMARY: LV EF is hyperdynamic. Diastolic dysfunction Grade I (Mild): Impaired relaxation with normal LV filling pressures. Stable appearing Bioprosthetic aortic valve. Surgical Prosthetic AV Doppler velocity index is 0.35 (normal>0.25). No significant change in Aortic valve peak velocities from 2014. Suspect PPM given indexed TAYO of < [...] PA systolic pressure. MEASUREMENTS: 2D Parasternal [place] Ds 4.2 cm LV%fs 30.9 % [...] PM Cheyenne Sandoval MD Performing Organization Address City/State/[facility] Centercode Phone Number [facility] [address] [place] [address] after 08/07/2017 Advance Directives Patient has advance care planning documents on file. For more information, please contact:Chet Marquez[address] [place] [address]
--- OUTSIDE RECORDS SUMMARY | 2018-08-08 10:57 | XMS REPORT | Clinical Summary ---
:[address] 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 For more information, please contact:[address] [phone] Code Status Date Activated Date Inactivated Comments Full Code 02/12/2015 5:34 AM 02/13/2015 6:46 PM This code status was determined by: Patient Full Code 02/07/2015 1:48 PM 02/07/2015 2:21 PM This code status was determined by: Patient
[2018-08-08] MEDS ORDERED: NA CHLORIDE 0.9% 1,000 ML ONE (11:19)
--- NOTE | 2018-08-08 11:32 | RAD REPORT ---
EXAM DESCRIPTION: RAD - Chest Single View - 08/08/2018 11:21 am CLINICAL HISTORY: COUGH Chest pain. COMPARISON: Chest Single View dated 03/12/2018; Chest Pa And Lat (2 Views) dated 03/11/2018; Chest Singl e View dated 03/10/2018; Chest Single View dated 03/09/2018 FINDINGS: Portable technique limits examination quality. The lungs are grossly clear. The heart is normal in size. Calcified pleural plaquing is present wali tible with prior asbestos exposure.Sternotomy wires noted. IMPRESSION: No acute intrathoracic process suspected.
[2018-08-08 12:13] LABS: ALT/SGPT 19 U/L (12-78); AST/SGOT 30 U/L (15-37); Albumin 3.7 g/dL (3.4-5.0); Alkaline Phosphatase 72 U/L (45-117); BUN Blood Urea Nitrogen 34 mg/dL (7-18); Bicarbonate 29 mmol/L (21-32); Bilirubin Direct 0.1 mg/dL (0-0.2); Bilirubin Total 0.7 mg/dL (0.2-1.0); Glucose Level 104 mg/dL (74-106); Magnesium 2.5 mg/dL (1.8-2.4); NT PRO-BNP 429 pg/mL (<450); Potassium 5.3 mmol/L (3.5-5.1); Protein, Total 6.8 g/dL (6.4-8.2); Sodium Level 140 mmol/L (136-145); Troponin (Emerg Dept Use Only) < 0.02 ng/mL (0.0-0.045)
[2018-08-08 12:18] LABS: Urine Blood NEGATIVE (NEG); Urine Glucose NEGATIVE (NEG); Urine Protein 1+ (NEG); Urine Specific Gravity 1.015 (1.005-1.030)
--- NOTE | 2018-08-08 13:12 | RAD REPORT ---
EXAM DESCRIPTION: CT - Head Brain Wo Cont - 08/08/2018 1:02 pm CLINICAL HISTORY: Dizziness COMPARISON: 2017 TECHNIQUE: Computed axial tomography of the head was obtained. IV contrast was not requested. All CT scans are performed using dose optimization technique as appropriate and may include automated exposure control or mA/KV adjustment according to patient size. FINDINGS: An intracranial bleed is not seen . The ventricles are normal in caliber. No extra-axial fluid collection is noted. Mild low-density areas within periventricular, and subcorti ezekiel white matter likely ischemic changes secondary to small vessel disease Chronic opacification right mastoid IMPRESSION: No acute intracranial abnormality is seen. If patient's symptoms persist MRI of the bra in would be recommended.
--- NOTE | 2018-08-08 13:26 | RAD REPORT ---
EXAM DESCRIPTION: MRI - Brain Wo Cont - 08/08/2018 1:04 pm CLINICAL HISTORY: Dizziness COMPARISON: 2016 TECHNIQUE: Axial, sagittal, and coronal magnetic images of the brain were obtained. Contrast was not requested FINDINGS: Mild to moderate signal within periventricular, deep and subcortical white matter probably ischemic changes secondary to small vessel disease. Mild patchy signal within the brain stem also un changed. Diffusion-weighted/ADC mapping does not reveal evidence of acute infarction. The ventricles are normal caliber. An extra-axial fluid collection is not present Chronic signal right mastoids. IMPRESSION: Mild to moderate signal within periventricular, deep and subcortical white matter probab ly ischemic changes secondary to small vessel disease
[2018-08-08 13:42] LABS: Protime INR 0.97
--- NOTE | 2018-08-08 13:45 | RAD REPORT ---
EXAM DESCRIPTION: USCarotid Artery Bilateral08/08/2018 1:35 pm CLINICAL HISTORY: Syncope COMPARISON: None FINDINGS: The velocity of the right internal carotid artery equals 80 cm/sec. The right ICA/CCA rati o 1.2 The velocity of the left internal carotid artery equals 56 cm/sec. The left ICA/CCA ratio 1.1 Mild plaque is present within the carotid arteries. The vertebral arteries demonstrate antegrade flow IMPRESSION: Mild plaque within the carotid arteries without evidence of a hemodynamically significan t stenosis NASCET criteria used. Mild 0-49% stenosis Moderate 50-69% stenosis Severe 70-99% stenosis
[2018-08-08 13:48] LABS: Absolute Lymphocytes (CBC) 1.7 K/uL (0.7-4.9); Absolute Monocytes 0.4 K/uL (0.1-1.3); Absolute Neutrophil 3.2 K/uL (1.8-8.0); Basophils % 0.9 % (0-1.3); Eosinophils % 4.1 % (0-4.4); Hematocrit 37.5 % (39.6-49.0); Lymphocytes % 30.1 % (15.3-44.8); MPV 9.4 fL (7.6-11.3); Monocytes % 7.8 % (3.3-12.3); RBC Red Blood Cell Count 4.65 M/uL (4.33-5.43)
[2018-08-08] MEDS ORDERED: FAMOTIDINE 20 MG/2 ML VIAL IV ONE (13:52)
--- NOTE | 2018-08-08 14:56 | EDPHYS ---
Physician Documentation [facility] Name: Rusty Yarbrough Age: 83 yrs Sex: Male : 1935 Arrival Date: 08/08/2018 Time: 10:42 Bed 13 Private MD: Shawn Perry E ED Physician Sathish Mckeon HPI: 08/08 12:05 This 83 yrs old Male presents to ER via Ambulatory with complaints of mukesh Dizziness. 12:05 The patient presents with dizziness, feeling faint, generalized weakness. Onset: The mukesh symptoms/episode began/occurred 2 day(s) ago. Context: occurred at home, occurred while the patient was walking. Modifying factors: The symptoms are alleviated by nothing, the symptoms are aggravated by movement of head, standing up. Associated signs and symptoms: The patient has no apparent associated signs or symptoms. Severity of symptoms: At their worst the symptoms were mild in the emergency department the symptoms are unchanged. Patient's baseline: Neuro: alert and fully oriented. The patient has not experienced similar symptoms in the past. Historical: - Allergies: 10:51 Benadryl; tw2 10:51 Enalapril; tw2 - Home Meds: 10:51 tramadol 50 mg Oral tab 1 tab every 6 hours for Pain [Active]; pantoprazole 40 mg Oral tw2 TbEC 1 tab 2 times per day [Active]; metoprolol tartrate 25 mg Oral tab 1 tab 2 times per day [Active]; aspirin 81 mg Oral chew 1 tab once daily [Active]; - PMHx: 10:51 "heart valve replacement"; Aortic Stenosis; Ataxia; acute, resolved now; bleeding tw2 ulcers; CAD; COPD; dyspnea; fatigue; Hyperlipidemia; Hypertension; Hypokalemia; melena; Myocardial infarction; syncope; Tachycardia; TIA; Vertigo; - Immunization history:: Adult Immunizations. - Social history:: Smoking status: . - Ebola Screening: : Patient denies travel to an Ebola-affected area in the 21 days before illness onset. - Family history:: not pertinent. ROS: 12:05 Constitutional: Negative for fever, chills, and weight loss, Eyes: Negative for injury, mukesh pain, redness, and discharge, ENT: Negative for injury, pain, and discharge, Neck: Negative for injury, pain, and swelling, Cardiovascular: Negative for chest pain, palpitations, and edema, Respiratory: Negative for shortness of breath, cough, wheezing, and pleuritic chest pain, Abdomen/GI: Negative for abdominal pain, nausea, vomiting, diarrhea, and constipation, Back: Negative for injury and pain, : Negative for injury, bleeding, discharge, and swelling, MS/Extremity: Negative for injury and deformity, Skin: Negative for injury, rash, and discoloration, Psych: Negative for depression, anxiety, suicide ideation, homicidal ideation, and hallucinations, Allergy/Immunology: Negative for hives, rash, and allergies, Endocrine: Negative for neck swelling, polydipsia, polyuria, polyphagia, and marked weight changes, Hematologic/Lymphatic: Negative for swollen nodes, abnormal bleeding, and unusual bruising. 12:05 Neuro: Positive for dizziness, weakness. Exam: 12:05 Constitutional: This is a well developed, well nourished patient who is awake, alert, mukesh and in no acute distress. Head/Face: Normocephalic, atraumatic. Eyes: Pupils equal round and reactive to light, extra-ocular motions intact. Lids and lashes normal. Conjunctiva and sclera are non-icteric and not injected. Cornea within normal limits. Periorbital areas with no swelling, redness, or edema. ENT: Nares patent. No nasal discharge, no septal abnormalities noted. Tympanic membranes are normal and external auditory canals are clear. Oropharynx with no redness, swelling, or masses, exudates, or evidence of obstruction, uvula midline. Mucous membranes moist. Neck: Trachea midline, no thyromegaly or masses palpated, and no cervical lymphadenopathy. Supple, full range of motion without nuchal rigidity, or vertebral point tenderness. No Meningismus. Chest/axilla: Normal chest wall appearance and motion. Nontender with no deformity. No lesions are appreciated. Cardiovascular: Regular rate and rhythm with a normal S1 and S2. No gallops, murmurs, or rubs. Normal PMI, no JVD. No pulse deficits. Respiratory: Lungs have equal breath sounds bilaterally, clear to auscultation and percussion. No rales, rhonchi or wheezes noted. No increased work of breathing, no retractions or nasal flaring. Abdomen/GI: Soft, non-tender, with normal bowel sounds. No distension or tympany. No guarding or rebound. No evidence of tenderness throughout. Back: No spinal tenderness. No costovertebral tenderness. Full range of motion. Male : Normal genitalia with no discharge or lesions. Skin: Warm, dry with normal turgor. Normal color with no rashes, no lesions, and no evidence of cellulitis. MS/ Extremity: Pulses equal, no cyanosis. Neurovascular intact. Full, normal range of motion. Neuro: Awake and alert, GCS 15, oriented to person, place, time, and situation. Cranial nerves II-XII grossly intact. Motor strength 5/5 in all extremities. Sensory grossly intact. Cerebellar exam normal. Normal gait. Psych: Awake, alert, with orientation to person, place and time. Behavior, mood, and affect are within normal limits. 14:34 Abdomen/GI: Rectal exam: Prostate: normal, rectal tone normal, Stool: brown, guaiac mukesh positive, hemorrhoid(s), are not appreciated, mass, is not appreciated, swelling, is not appreciated, tenderness, is not appreciated. Vital Signs: 10:50 BP 147 / 71; Pulse 59; Resp 18; Temp 98.1(O); Pulse Ox 97% on R/A; Weight 80.29 kg (R); tw2 Height 5 ft. 10 in. (177.80 cm); Pain 0/10; 11:40 BP 136 / 73; Pulse 60; Resp 17; Pulse Ox 97% on R/A; ae4 13:49 BP 160 / 76; Pulse 53; Resp 15; Pulse Ox 97% on R/A; ae4 15:36 BP 154 / 79; Pulse 75; Resp 19; Pulse Ox 98% on R/A; ae4 10:50 Body Mass Index 25.40 (80.29 kg, 177.80 cm) tw2 NIH Stroke Scale Scores: 12:05 NIHSS Score: 0 mukesh MDM: 10:52 Patient medically screened. [facility] 12:07 Data reviewed: vital signs, nurses notes, lab test result(s), EKG, radiologic studies, [facility] CT scan, MRI, plain films, ultrasound. 15:47 Physician consultation: Shawn Olmos MD discharges patient from the emergency rp3 department. ED course: Pt was referred to the hospitalist team for admission. Pts was seen and examined at bedside by me. Lab work and Imaging was reviewed. S/S was Discussed. PE was WNL. Dr Olmos and Dr Perry were contacted by me from the ER. Pt with Chronic anemia and S/S consistent with dizziness related to vertigo 2/2 Dehydration. GI and PCP both in agreement of DC pt home for outpt f.u and workup for chronic anemia. and vertigo. Will DC pt on Meclizine. and F.u appt. from ER. Case DW with ER physician as well. . 08/08 10:56 Order name: Basic Metabolic Panel; Complete Time: 14:20 [facility] 08/08 10:56 Order name: CBC with Diff; Complete Time: 14:20 [facility] 08/08 10:56 Order name: LFT's; Complete Time: 14:20 [facility] 08/08 10:56 Order name: Magnesium; Complete Time: 14:20 [facility] 08/08 10:56 Order name: NT PRO-BNP; Complete Time: 14:20 [facility] 08/08 10:56 Order name: PT-INR; Complete Time: 14:20 [facility] 08/08 10:56 Order name: Troponin (emerg Dept Use Only); Complete Time: 14:20 [facility] 08/08 10:56 Order name: XRAY Chest (1 view); Complete Time: 12:07 mukesh 08/08 10:56 Order name: Urine Culture [facility] 08/08 10:56 Order name: Lipase; Complete Time: 12:07 [facility] 08/08 11:47 Order name: Urine Dipstick--Ancillary (enter results); Complete Time: 14:20 08/08 12:05 Order name: CT Head Brain wo Cont; Complete Time: 14:20 [facility] 08/08 12:05 Order name: Echo w/ Doppler [facility] 08/08 14:37 Order name: Occult Blood--Ancillary 08/08 10:56 Order name: EKG; Complete Time: 10:59 mukesh 08/08 10:56 Order name: Cardiac monitoring; Complete Time: 11:34 mukesh 08/08 10:56 Order name: EKG - Nurse/Tech; Complete Time: 12:29 mukesh 08/08 10:56 Order name: IV Saline Lock; Complete Time: 11:35 08/08 10:56 Order name: Labs collected and sent; Complete Time: 11:35 08/08 10:56 Order name: O2 Per Protocol; Complete Time: 11:35 mukesh 08/08 10:56 Order name: O2 Sat Monitoring; Complete Time: 11:35 mukesh 08/08 10:56 Order name: Urine Dipstick-Ancillary (obtain specimen); Complete Time: 12:30 mukesh 08/08 11:41 Order name: Labs - recollect needed; Complete Time: 12:27 bd 08/08 12:05 Order name: US Carotid Artery Bilateral; Complete Time: 14:20 mukesh 08/08 12:43 Order name: Brain Wo Cont; Complete Time: 14:20 EDMS 08/08 11:56 Order name: Labs - recollect needed; Complete Time: 12:05 bd 08/08 12:26 Order name: Labs - recollect needed: PT, CBC; Complete Time: 12:27 iw 08/08 14:21 Order name: PO challenge; Complete Time: 14:54 [facility] Administered Medications: 11:34 Drug: NS 0.9% 1000 ml Route: IV; Rate: 125 ml/hr; Site: left antecubital; ae4 13:35 Drug: Pepcid 20 mg Route: IVP; Site: left antecubital; ae4 15:54 Follow up: Response: No adverse reaction ae4 14:45 Drug: Kayexalate 15 grams Route: PO; hj 14:45 Drug: ProTONIX 40 mg Route: IVP; Site: left antecubital; hj Disposition: 08/08/18 15:46 Discharged to Home. Impression: Vertigo of central origin, unspecified ear, Anemia in chronic diseases classified elsewhere. - Condition is Stable. - Discharge Instructions: Dizziness, Vertigo, Dwau-vf-Pimm. - Prescriptions for Meclizine 25 mg Oral Tablet - take 1 tablet by ORAL route every 8 hours As needed; 30 tablet. - Medication Reconciliation Form, Thank You Letter, Antibiotic Education, Prescription Opioid Use form. - Follow up: Shawn Perry; When: 2 - 3 days; Reason: Recheck today's complaints, Continuance of care, Re-evaluation by your physician. Follow up: Shawn Olmos; When: 2 - 3 days; Reason: Recheck today's complaints, Continuance of care, Re-evaluation by your physician. - Problem is new. - Symptoms have improved. NIH Stroke Scale - NIH Stroke Score Date: 08/08/2018 Time: 12:05 Total Score = 0 1a. Level of Consciousness (LOC) - 0(Alert) 1b. Level of Consciousness (LOC) (Year \\T\\ Age) - 0(Both) 1c. LOC Commands (Open \\T\\ Closes Eyes/Manager Orange) - 0(Both) 2. Best Gaze (Lateral Gaze Paresis) - 0(Normal) 3. Visual Field Loss - 0(No visual loss) 4. Facial Palsy - 0(Normal) 5a. Left Arm: Motor (10-second hold) - 0(No drift) 5b. Right Arm: Motor (10-second hold) - 0(No drift) 6a. Left Leg: Motor (5-second hold - always test supine) - 0(No drift) 6b. Right Leg: Motor (5-second hold - always test supine) - 0(No drift) 7. Limb Ataxia (finger/nose \\T\\ heel/benoit - test with eyes open) - 0(Absent) 8. Sensory Loss (pinprick arms/legs/face) - 0(Normal) 9. Best Language: Aphasia (description/naming/reading) - 0(No aphasia) 10. Dysarthria (speech clarity - read or repeat words) - 0(Normal) 11. Extinction and Inattention (visual/tactile/auditory/spatial/personal) - 0(No abnormality) Initials: mukesh Signatures: Dispatcher [employer] EDMS Regi Nix Deana, RN RN dm5 Sathish Mckeon MD MD cha Williams, Irene, RN HENRRY iw Wesley Edouard RN RN hj Suzanne Moreno RN RN tw2 Mónica Butler MD MD rp3 Peter Cedeño RN RN ae4 Corrections: (The following items were deleted from the chart) 12:43 12:09 MR STROKE PROTOCOL+MRI.RAD.BRZ ordered. EDAR EDMS 14:34 14:33 Abdomen/GI: Rectal exam: is unremarkable, Prostate: normal, rectal tone mukesh normal, Stool: normal, guaiac negative, hemorrhoid(s), are not appreciated, mass, is not appreciated, swelling, is not appreciated, tenderness, is not appreciated, fecal impaction, is not appreciated, mukesh 15:45 14:55 Hospitalization Ordered by Mónica Butler MD for Inpatient Admission. rp3 Preliminary diagnosis is Gastrointestinal hemorrhage, unspecified; Anemia, unspecified; Dizziness and giddiness; Nausea; Weakness. Bed requested for Telemetry/MedSurg (Inpatient). Status is Inpatient Admission. Condition is Fair. Problem is new. Symptoms have improved. UTI on Admission? No. mukesh 16:18 15:46 08/08/2018 15:46 Discharged to Home. Impression: Vertigo of central dm5 origin, unspecified ear; Anemia in chronic diseases classified elsewhere. Condition is Stable. Prescriptions for Meclizine 25 mg Oral Tablet - take 1 tablet by ORAL route every 8 hours As needed; 30 tablet, Protonix 40 mg Oral Tablet - take 1 tablet by ORAL route once daily; 30 tablet. and Forms are Medication Reconciliation Form, Thank You Letter, Antibiotic Education, Prescription Opioid Use. Follow up: Shawn Perry; When: 2 - 3 days; Reason: Recheck today's complaints, Continuance of care, Re-evaluation by your physician. Follow up: Shawn Olmos; When: 2 - 3 days; Reason: Recheck today's complaints, Continuance of care, Re-evaluation by your physician. Problem is new. Symptoms have improved. rp3
--- NOTE | 2018-08-08 14:56 | ER ---
Nurse's Notes [facility] Name: Rusty Yarbrough Age: 83 yrs Sex: Male : 1935 Arrival Date: 08/08/2018 Time: 10:42 Bed 13 Private MD: Shawn Perry E Diagnosis: Vertigo of central origin, unspecified ear;Anemia in chronic diseases classified elsewhere Presentation: 08/08 10:48 Presenting complaint: Child states: since yesterday evening he started having some tw2 dizziness and nauseous, this morning just dizziness, the room is spinning. Transition of care: patient was not received from another setting of care. Onset of symptoms was August 08, 2018. Risk Assessment: Do you want to hurt yourself or someone else? Patient reports no desire to harm self or others. Initial Sepsis Screen: Does the patient meet any 2 criteria? No. Patient's initial sepsis screen is negative. Does the patient have a suspected source of infection? No. Patient's initial sepsis screen is negative. Care prior to arrival: None. 10:48 Method Of Arrival: Ambulatory tw2 10:51 Acuity: GAYLE 2 tw2 Triage Assessment: 10:50 General: Appears in no apparent distress. well groomed, Behavior is calm, cooperative, tw2 appropriate for age. Pain: Denies pain. 10:50 Neuro: Reports dizziness. tw2 Historical: - Allergies: 10:51 Benadryl; tw2 10:51 Enalapril; tw2 - Home Meds: 10:51 tramadol 50 mg Oral tab 1 tab every 6 hours for Pain [Active]; pantoprazole 40 mg Oral tw2 TbEC 1 tab 2 times per day [Active]; metoprolol tartrate 25 mg Oral tab 1 tab 2 times per day [Active]; aspirin 81 mg Oral chew 1 tab once daily [Active]; - PMHx: 10:51 "heart valve replacement"; Aortic Stenosis; Ataxia; acute, resolved now; bleeding tw2 ulcers; CAD; COPD; dyspnea; fatigue; Hyperlipidemia; Hypertension; Hypokalemia; melena; Myocardial infarction; syncope; Tachycardia; TIA; Vertigo; - Immunization history:: Adult Immunizations. - Social history:: Smoking status: . - Ebola Screening: : Patient denies travel to an Ebola-affected area in the 21 days before illness onset. - Family history:: not pertinent. Screenin:50 Abuse screen: Denies threats or abuse. Nutritional screening: No deficits noted. ae4 Tuberculosis screening: No symptoms or risk factors identified. Fall Risk None identified. Assessment: 11:35 Reassessment: Urinal provided,patient encouraged to provide sample,patient is ae4 attempting to provide sample. 13:35 Reassessment: 3rd sample of blood sent to lab. ae4 Vital Signs: 10:50 BP 147 / 71; Pulse 59; Resp 18; Temp 98.1(O); Pulse Ox 97% on R/A; Weight 80.29 kg (R); tw2 Height 5 ft. 10 in. (177.80 cm); Pain 0/10; 11:40 BP 136 / 73; Pulse 60; Resp 17; Pulse Ox 97% on R/A; ae4 13:49 BP 160 / 76; Pulse 53; Resp 15; Pulse Ox 97% on R/A; ae4 15:36 BP 154 / 79; Pulse 75; Resp 19; Pulse Ox 98% on R/A; ae4 10:50 Body Mass Index 25.40 (80.29 kg, 177.80 cm) tw2 NIH Stroke Scale Scores: 12:05 NIHSS Score: 0 mukesh ED Course: 10:42 Patient arrived in ED. mr 10:43 Shawn Perry MD is Private Physician. mr 10:50 Triage completed. tw2 10:50 Arm band placed on. tw2 10:52 Sathish Mckeon MD is Attending Physician. mukesh 10:53 Peter Cedeño, HENRRY is Primary Nurse. ae4 11:20 X-ray completed. Portable x-ray completed in exam room. Patient tolerated procedure jb2 well. 11:23 XRAY Chest (1 view) In Process Unspecified. EDMS 11:30 Placed in gown. Bed in low position. Call light in reach. Side rails up X2. Adult w/ ae4 patient. paper folder on. Pulse ox on. NIBP on. Warm blanket given. 12:40 Patient moved to MRI via stretcher. em2 12:47 Brain Wo Cont In Process Unspecified. EDMS 13:03 CT Head Brain wo Cont In Process Unspecified. EDMS 13:32 Ultrasound completed. Patient tolerated well. hr 13:37 US Carotid Artery Bilateral In Process Unspecified. EDMS 14:30 Inserted saline lock: 20 gauge in left antecubital area, using aseptic technique. Blood ae4 collected. 14:53 Mónica Butler MD is Hospitalizing Provider. mukesh 15:00 Echocardiogram with doppler done by electrical test technician. tc 15:45 Shawn ePrry MD is Referral Physician. rp3 15:45 Shawn Olmos MD is Referral Physician. rp3 15:47 Mónica Butler MD porcelain buildup assistant. rp3 16:20 No provider procedures requiring assistance completed. ae4 Administered Medications: 11:34 Drug: NS 0.9% 1000 ml Route: IV; Rate: 125 ml/hr; Site: left antecubital; ae4 13:35 Drug: Pepcid 20 mg Route: IVP; Site: left antecubital; ae4 15:54 Follow up: Response: No adverse reaction ae4 14:45 Drug: Kayexalate 15 grams Route: PO; hj 14:45 Drug: ProTONIX 40 mg Route: IVP; Site: left antecubital; hj Outcome: 14:55 Decision to Hospitalize by Provider. mukesh 15:46 Discharge ordered by . rp3 16:18 Patient left the ED. dm5 NIH Stroke Scale - NIH Stroke Score Date: 08/08/2018 Time: 12:05 Total Score = 0 1a. Level of Consciousness (LOC) - 0(Alert) 1b. Level of Consciousness (LOC) (Year \\T\\ Age) - 0(Both) 1c. LOC Commands (Open \\T\\ Closes Eyes/Caustic Preparer) - 0(Both) 2. Best Gaze (Lateral Gaze Paresis) - 0(Normal) 3. Visual Field Loss - 0(No visual loss) 4. Facial Palsy - 0(Normal) 5a. Left Arm: Motor (10-second hold) - 0(No drift) 5b. Right Arm: Motor (10-second hold) - 0(No drift) 6a. Left Leg: Motor (5-second hold - always test supine) - 0(No drift) 6b. Right Leg: Motor (5-second hold - always test supine) - 0(No drift) 7. Limb Ataxia (finger/nose \\T\\ heel/benoit - test with eyes open) - 0(Absent) 8. Sensory Loss (pinprick arms/legs/face) - 0(Normal) 9. Best Language: Aphasia (description/naming/reading) - 0(No aphasia) 10. Dysarthria (speech clarity - read or repeat words) - 0(Normal) 11. Extinction and Inattention (visual/tactile/auditory/spatial/personal) - 0(No abnormality) Initials: mukesh Signatures: Dispatcher [employer] Darlene Dooley, RN RN dm5 Sathish Mckeon MD MD cha Kanu, Yakelin Bañuelos, Brian jb2 Judah, Deisy Antunez, Hood em2 Shaina Mayfield, supply manager EKG Ttc Wesley Edouard RN RN hj Suzanne Moreno RN RN tw2 Mónica Butler MD MD rp3 Peter Cedeño RN RN ae4 Corrections: (The following items were deleted from the chart) 10:51 10:48 Acuity: GAYLE 3 tw2 tw2 15:38 15:36 Pulse 75bpm; Resp 19bpm; Pulse Ox 98% RA; ae4 ae4 15:57 15:36 Pulse 75bpm; Resp 19bpm; Pulse Ox 98% RA; ae4 ae4
[2018-08-08] MEDS ORDERED: SOD POLYSTYREN SUL 15 GM/60 ML UCUP ONE (15:05)
[2018-08-08] MEDS ORDERED: PANTOPRAZOLE 40 MG INJ ONE (15:05)
--- NOTE | 2018-08-08 15:15 | EKG ---
Test Date: 2018-08-08 Test Time: 11:44:47 Cell Tender: NINA MEASUREMENT RESULTS: Intervals: Rate: 56 HI: 188 QRSD: 92 QT: 430 QTc: 414 [place]: P: 17 HI: 188 QRS: -2 T: 65 INTERPRETIVE STATEMENTS: Sinus bradycardia Otherwise normal ECG Compared to ECG 03/09/2018 09:42:25 Sinus tachycardia no longer present ST (T wave) deviation no longer present Electronically Signed On 08-08-18 15:14:46 CDT by Ramon Chaparro
--- NOTE | 2018-08-08 15:33 | ECHO ---
HEIGHT: 5 ft 10 in WEIGHT: 177 lb oz DATE OF STUDY: 08/08/[address]: Sathish Mckeon MD 2-DIMENSIONAL: YES M.MODE: YES DOPPLER: YES COLOR FLOW: YES TDS: NO PORTABLE: YES DEFINITY: NO BUBBLE STUDY: NO DIAGNOSIS: DIZZINESS CARDIAC HISTORY: CATHERIZATION: YES SURGERY: YES PROSTHETIC VALVE: YES PACEMAKER: NO MEASUREMENTS (cm) DIASTOLIC (NORMALS) SYSTOLIC (NORMALS) IVSd 1.0 (0.6-1.2) LA Diam 4.1 (1.9-4.0) LVEF 67% LVIDd 4.3 (3.5-5.7) LVIDs 2.7 (2.0-3.5) %FS 37% LVPWd 1.2 (0.6-1.2) Ao Diam 2.9 (2.0-3.7) 2 DIMENSIONAL ASSESSMENT: RIGHT ATRIUM: NORMAL LEFT ATRIUM: DILATED RIGHT VENTRICLE: NORMAL LEFT VENTRICLE: NORMAL TRICUSPID VALVE: NORMAL MITRAL VALVE: MITRAL ANNULAR CALCIFICATION PULMONIC VALVE: NORMAL AORTIC VALVE: STATUS POST AORTIC VALVE REPLACEMEMT PERICARDIAL EFFUSION: NONE AORTIC ROOT: NORMAL LEFT VENTRICULAR WALL MOTION: NORMAL DOPPLER/COLOR FLOW: MILD AORTIC STENOSIS COMMENTS: STATUS POST BIOPROSTHETIC AORTIC VALVE REPLACEMEMT. MILD AORTIC STENOSIS. NORMAL LEFT VENTRICULAR SIZE AND FUNCTION. NO WALL MOTION ABNORMALITY. NO EFFUSION. TECHNOLOGIST: Phillip LOPEZ
[2018-08-08 16:33] VITALS: TEMP 98.1
[2018-08-08 16:37] VITALS: BP 154/79; O2SAT 98
== END 2018-08-08 16:18 | disposition home or self-care (01) ==
LOC: ER 10:39
DX: H81.49 Vertigo of central origin, unspecified ear (principal); D64.9 Anemia, unspecified; I10 Essential (primary) hypertension; E78.5 Hyperlipidemia, unspecified; E87.6 Hypokalemia; J44.9 Chronic obstructive pulmonary disease, unspecified; I25.10 Atherosclerotic heart disease of native coronary artery without angina pectoris; I25.2 Old myocardial infarction; Z79.82 Long term (current) use of aspirin; Z88.8 Allergy status to other drugs, medicaments and biological substances; Z95.4 Presence of other heart-valve replacement
CPT/HCPCS: 93005; 93306; 87088; 85025; 87086; 80048; 36415; 83735; 85610; 80076; 82272; 81003; 84484; 83690; 83880; 70450; 71045; 93880; 70551; C9113; J7030; 96374; 96375; 99285

== ENCOUNTER 2019-05-04 19:18 | Emergency (ER) | payer OTHER ==
[2019-05-04 22:06] LABS: Urine Bacteria 20-50 /HPF (NONE SEEN); Urine Mucus 1+ /HPF (NONE SEEN); Urine RBC >50 /HPF (NONE SEEN)
--- NOTE | 2019-05-04 22:13 | ER ---
Nurse's Notes [facility] Name: Rusty Yarbrough Age: 84 yrs Sex: Male : 1935 Arrival Date: 05/04/2019 Time: 19:20 Bed 27 Private MD: Diagnosis: Urinary tract infection, site not specified Presentation: 05/04 19:41 Chief complaint: adult child: "earlier today he went to the urinologist today and he jd3 was told he has a blockage. so they put a catheter in. this evening he is reporting pain and I have noticed some leaking of urine.". Coronavirus screen: The patient has NOT traveled to [place] in the past 14 days. The patient has NOT had contact with known and/or suspected case of Coronavirus. Proceed with normal triage procedures. Ebola Screen: Patient negative for fever greater than or equal to 101.5 degrees Fahrenheit, and additional compatible Ebola Virus Disease symptoms. Initial Sepsis Screen: Does the patient meet any 2 criteria? No. Patient's initial sepsis screen is negative. Does the patient have a suspected source of infection? No. Patient's initial sepsis screen is negative. Risk Assessment: Do you want to hurt yourself or someone else? Patient reports no desire to harm self or others. 19:41 Method Of Arrival: Ambulatory j 19:41 Acuity: GAYLE 3 jd3 20:00 Onset of symptoms was May 04, 2019. vc Triage Assessment: 20:00 Pain: Complains of pain in pain with urination. vc 20:00 General: Appears in no apparent distress. uncomfortable, Behavior is calm, cooperative, vc appropriate for age. Historical: - Allergies: 19:45 Benadryl; jd3 19:45 Enalapril; jd3 - Home Meds: 19:45 aspirin 81 mg Oral chew 1 tab once daily [Active]; metoprolol tartrate 25 mg Oral tab 1 jd3 tab 2 times per day [Active]; pantoprazole 40 mg Oral TbEC 1 tab 2 times per day [Active]; tramadol 50 mg Oral tab 1 tab every 6 hours for Pain [Active]; - PMHx: 19:45 Ataxia; acute, resolved now; "heart valve replacement"; bleeding ulcers; CAD; Aortic jd3 Stenosis; COPD; dyspnea; fatigue; Hyperlipidemia; Hypertension; Hypokalemia; melena; Myocardial infarction; syncope; Tachycardia; TIA; Vertigo; - Immunization history:: Adult Immunizations up to date. - Social history:: Smoking status: Patient denies any tobacco usage or history of. Screenin:00 Abuse screen: Denies threats or abuse. Nutritional screening: No deficits noted. vc Tuberculosis screening: No symptoms or risk factors identified. Fall Risk None identified. Assessment: 20:00 General: Appears in no apparent distress. uncomfortable, Behavior is calm, cooperative, vc appropriate for age. Pain: Complains of pain in pain with urination. Neuro: Level of Consciousness is awake, alert, obeys commands, Oriented to person, place, time, situation. Cardiovascular: Capillary refill < 3 seconds Patient's skin is warm and dry. Respiratory: Airway is patent Respiratory effort is even, unlabored, Respiratory pattern is regular, symmetrical. GI: No signs and/or symptoms were reported involving the gastrointestinal system. : Reports pain with urination. EENT: No signs and/or symptoms were reported regarding the EENT system. Derm: No signs and/or symptoms reported regarding the dermatologic system. Musculoskeletal: Circulation, motion, and sensation intact. Range of motion: intact in all extremities. 21:00 Reassessment: Patient and/or family updated on plan of care and expected duration. Pain vc level reassessed. Patient is alert, oriented x 3, equal unlabored respirations, skin warm/dry/pink. 22:00 Reassessment: Patient and/or family updated on plan of care and expected duration. Pain vc level reassessed. Patient is alert, oriented x 3, equal unlabored respirations, skin warm/dry/pink. Patient states symptoms have improved. 22:25 Reassessment: Patient to wait 10 minutes after rocephin vaccination before discharge!!. vc Vital Signs: 19:45 BP 152 / 84; Pulse 50; Resp 17 S; Temp 97.4(TE); Pulse Ox 95% on R/A; Weight 79.38 kg jd3 (R); Height 5 ft. 9 in. (175.26 cm) (R); Pain 10/10; 22:20 BP 152 / 76; Pulse 61; Resp 16; Temp 98.1; Pulse Ox 97% ; lt1 19:45 Body Mass Index 25.84 (79.38 kg, 175.26 cm) jd3 ED Course: 19:20 Patient arrived in ED. cl3 19:43 Triage completed. jd3 19:46 Arm band placed on. jd3 19:47 Sathish Zhang PA is PHCP. cp 19:47 Rahul Hyatt MD is Attending Physician. cp 20:00 Patient has correct armband on for positive identification. Call light in reach. vc 21:11 Sara Tobias, RN is Primary Nurse. vc 21:42 Urine Microscopic Only Sent. vc 22:29 No provider procedures requiring assistance completed. Patient did not have IV access vc during this emergency room visit. Administered Medications: 20:25 Drug: Ditropan 5 mg Route: PO; vc 22:34 Follow up: Response: No adverse reaction vc 20:25 Drug: Rocephin (cefTRIAXone) 1 grams Route: IM; Site: right ventrogluteal; vc 22:34 Follow up: Response: No adverse reaction vc Outcome: 22:12 Discharge ordered by MD. cp 22:29 Discharged to home ambulatory, with family. vc 22:29 Condition: good 22:29 Discharge instructions given to patient, family, Instructed on discharge instructions, follow up and referral plans. medication usage, Demonstrated understanding of instructions, follow-up care, medications, Prescriptions given X 2. 22:36 Patient left the ED. vc Signatures: Sathish Zhang PA PA cp Davies, Jonathon, RN RN Jennifer Anguiano lt1 Da Perez cl3 Sara Tobias, HENRRY RN vc
--- NOTE | 2019-05-04 22:13 | EDPHYS ---
Physician Documentation [facility] Name: Rusty Yarbrough Age: 84 yrs Sex: Male : 1935 Arrival Date: 05/04/2019 Time: 19:20 Bed 27 Private MD: ED Physician Rahul Hyatt HPI: 05/04 20:05 This 84 yrs old Male presents to ER via Ambulatory with complaints of Problem cp With Urinary Catheter. 20:05 The patient presents with a Ulrich catheter problem, is leaking urine, pain. cp 20:05 Onset: The symptoms/episode began/occurred today. Associated signs and symptoms: cp Pertinent negatives: abdominal pain, constipation, diarrhea, fever, nausea, vomiting. Severity of symptoms: in the emergency department the symptoms are unchanged, despite home interventions. Daughter reports patient had ulrich catheter placed today by urologist in [place] for urinary retention. Noticed leakage around catheter and increased pain tonight. Historical: - Allergies: 19:45 Benadryl; jd3 19:45 Enalapril; jd3 - Home Meds: 19:45 aspirin 81 mg Oral chew 1 tab once daily [Active]; metoprolol tartrate 25 mg Oral tab 1 jd3 tab 2 times per day [Active]; pantoprazole 40 mg Oral TbEC 1 tab 2 times per day [Active]; tramadol 50 mg Oral tab 1 tab every 6 hours for Pain [Active]; - PMHx: 19:45 Ataxia; acute, resolved now; "heart valve replacement"; bleeding ulcers; CAD; Aortic jd3 Stenosis; COPD; dyspnea; fatigue; Hyperlipidemia; Hypertension; Hypokalemia; melena; Myocardial infarction; syncope; Tachycardia; TIA; Vertigo; - Immunization history:: Adult Immunizations up to date. - Social history:: Smoking status: Patient denies any tobacco usage or history of. ROS: 20:10 Constitutional: Negative for body aches, chills, fever, poor PO intake. cp 20:10 Eyes: Negative for injury, pain, redness, and discharge. cp 20:10 ENT: Negative for drainage from ear(s), ear pain, sore throat, difficulty swallowing, difficulty handling secretions. 20:10 Cardiovascular: Negative for chest pain. 20:10 Respiratory: Negative for cough, shortness of breath. 20:10 Abdomen/GI: Negative for abdominal pain, nausea, vomiting, and diarrhea, constipation. 20:10 Back: Negative for pain at rest, pain with movement. 20:10 : Positive for difficulty urinating, dysuria, leakage around ulrich catheter. 20:10 Skin: Negative for rash. 20:10 Neuro: Negative for altered mental status, headache, weakness. 20:10 All other systems are negative. Exam: 20:20 Constitutional: The patient appears in no acute distress, alert, awake, non-toxic, well cp developed, well nourished. 20:20 Head/Face: Normocephalic, atraumatic. cp 20:20 Eyes: Periorbital structures: appear normal, Conjunctiva: normal, no exudate, no injection, Sclera: no appreciated abnormality, Lids and lashes: appear normal, bilaterally. 20:20 ENT: External ear(s): are unremarkable, Nose: is normal, Mouth: Lips: moist, Oral mucosa: moist, Posterior pharynx: is normal, airway is patent. 20:20 Chest/axilla: Inspection: normal. 20:20 Cardiovascular: Rate: bradycardic. 20:20 Respiratory: the patient does not display signs of respiratory distress, Respirations: normal, no use of accessory muscles, labored breathing, is not present. 20:20 Abdomen/GI: Inspection: abdomen appears normal, Bowel sounds: active, all quadrants, Palpation: abdomen is soft and non-tender, in all quadrants, voluntary guarding, is not appreciated, involuntary guarding, is not appreciated. 20:20 Back: pain, is absent, ROM is normal. Vital Signs: 19:45 BP 152 / 84; Pulse 50; Resp 17 S; Temp 97.4(TE); Pulse Ox 95% on R/A; Weight 79.38 kg jd3 (R); Height 5 ft. 9 in. (175.26 cm) (R); Pain 10/10; 22:20 BP 152 / 76; Pulse 61; Resp 16; Temp 98.1; Pulse Ox 97% ; lt1 19:45 Body Mass Index 25.84 (79.38 kg, 175.26 cm) jd3 MDM: 19:59 Patient medically screened. cp 22:00 Differential diagnosis: UTI, urinary retention, Ulrich catheter problem, prostatitis, cp urethritis. 22:12 Data reviewed: vital signs, nurses notes, lab test result(s), and as a result, I will cp discharge patient. 05/04 21:03 Order name: Urine Microscopic Only; Complete Time: 22:10 cp 05/04 22:11 Interpretation: Normal except: URBC >50; UBACT 20-50; SQEPI 5-10. cp 05/04 22:09 Order name: Urine Culture EDKS 05/04 19:59 Order name: Bladder Scanner; Complete Time: 21:11 05/04 22:16 Order name: Urine Dipstick--Ancillary (enter results) ar5 05/04 21:03 Order name: Urine Dipstick-Ancillary (obtain specimen); Complete Time: 21:42 cp Administered Medications: 20:25 Drug: Ditropan 5 mg Route: PO; vc 22:34 Follow up: Response: No adverse reaction vc 20:25 Drug: Rocephin (cefTRIAXone) 1 grams Route: IM; Site: right ventrogluteal; vc 22:34 Follow up: Response: No adverse reaction vc Disposition: 05/04/19 22:12 Discharged to Home. Impression: Urinary tract infection, site not specified. - Condition is Stable. - Discharge Instructions: Urinary Tract Infection, Adult. - Prescriptions for Ditropan XL 5 mg Oral tablet extended release 24hr - take 1 tablet by ORAL route once daily; 20 tablet. Keflex 500 mg Oral Capsule - take 1 capsule by ORAL route every 8 hours for 10 days; 30 capsule. - Medication Reconciliation Form, Thank You Letter, Antibiotic Education, Prescription Opioid Use form. - Follow up: Private Physician; When: 2 - 3 days; Reason: Recheck today's complaints. - Problem is new. - Symptoms have improved. Addendum: 05/06/2019 02:16 Co-signature as Attending Physician, Rahul Hyatt MD I agree with the assessment and t w4 plan of care. Signatures: Dispatcher [employer] EDKS Sathish Zhang PA PA cp Davies, Jonathon, RN RN Rahul Mccullough MD MD tw4 Sara Tobias RN RN vc Corrections: (The following items were deleted from the chart) 05/04 22:36 22:12 05/04/2019 22:12 Discharged to Home. Impression: Urinary tract infection, site vc not specified. Condition is Stable. Prescriptions for Ditropan XL 5 mg Oral tablet extended release 24hr - take 1 tablet by ORAL route once daily; 20 tablet. and Forms are Medication Reconciliation Form, Thank You Letter, Antibiotic Education, Prescription Opioid Use. Follow up: Private Physician; When: 2 - 3 days; Reason: Recheck today's complaints. Problem is new. Symptoms have improved. cp
[2019-05-04] MEDS ORDERED: OXYBUTYNIN CHLORIDE 5 MG TAB ONE (22:14)
[2019-05-04] MEDS ORDERED: LIDOCAINE 1% MPF 5 ML VIAL ONE (22:22)
[2019-05-04] MEDS ORDERED: CEFTRIAXONE 1000 MG/VIAL ONE (22:23)
[2019-05-04 22:26] LABS: Urine Blood 3+ (NEG); Urine Glucose NEGATIVE (NEG); Urine Protein 3+ (NEG); Urine Specific Gravity >1.030 (1.005-1.030); Urine pH 6.5 (5.0-7.0)
[2019-05-04 22:51] VITALS: BP 152/76; TEMP 98.1; O2SAT 97
== END 2019-05-04 22:36 | disposition home or self-care (01) ==
LOC: ER 19:18
DX: N39.0 Urinary tract infection, site not specified (principal); I10 Essential (primary) hypertension; E78.5 Hyperlipidemia, unspecified; J44.9 Chronic obstructive pulmonary disease, unspecified; I25.2 Old myocardial infarction; Z95.4 Presence of other heart-valve replacement
CPT/HCPCS: 81003; 81015; 87086; 87088; 96372; 99283

== ENCOUNTER 2019-12-28 16:58 | Emergency (ER) | payer OTHER ==
--- OUTSIDE RECORDS SUMMARY | 2019-12-28 17:00 | XMS REPORT | Clinical Summary ---
:1935 Author Organization [facility] Address [address] [place] [address] Care Team Providers Name Role Phone Provider, Unknown Primary Care Provider Unavailable Allergies No Known Active Allergies Medications Medication Sig Dispensed Refills Start Date End Date Status traMADol (ULTRAM) Take 50 mg by 0 12/14/2017 Active 50 mg tablet mouth every 6 (six) hours as needed. tamsulosin (FLOMAX) Take 0.4 mg 0 Active 0.4 mg capsule by mouth daily. metoprolol tartrate Take 25 mg by 0 11/14/201704/24 Discontinued (LOPRESSOR) 25 mg mouth 2 (two) tablet times a day. apixaban (ELIQUIS) Take 1 tablet 180 tablet 1 12/28/201704/24 Discontinued 5 mg tablet (5 mg total) by mouth 2 (two) times a day. azithromycin 0 03/12/2018 04/24/2019 Disco ntinued (ZITHROMAX) 500 MG tablet cefuroxime (CEFTIN) 0 03/12/2018 0 Discontinued 250 MG tablet acetaminophen-codei 0 03/14/2018 0 Discontinued ne (TYLENOL WITH CODEINE #3) 300-30 mg per tablet pantoprazole Take 40 mg by 0 04/24/2019 Di scontinued (PROTONIX) 40 MG EC mouth daily. tablet Active Problems Problem Noted Date Anemia 03/21/2018 S/P aortic valve replacement with bioprosthetic valve 12/21/2017 Overview: Chronically elevated AV gradients ~ 3.3 m/s since at least 2014. Essential hypertension 12/21/2017 Encounters Date Type Specialty Care Team Description 04/24/2019 Multidisciplinary Visit Cardiology Jacey, S/P aortic valve Luis Stephen MD replacement w ith bioprosthetic v alve (Primary Dx) 04/24/2019 Hospital Encounter Procedural Camilo Mariheuma tic aortic valve stenosis; Cardiology Luis Stephen MD S/P AVR 04/02/2019 Orders Only Cardiology Camilo Salehheumatic ao rtic valve stenosis (Primary Dx); KAYE Child S/P AVR after 12/27/2018 Surgical History Surgery Date Site/Laterality Comments ORTHOPEDIC SURGERY disc on the n sarath CHEST SURGERY open chest Medical History Medical History Date Comments Hypertension Family History Medical History Relation Name Comments Heart attack Father Relation Name Status Comments Father Mother Social History Tobacco Use Types Packs/Day Years Used Date Never Smoker Smokeless Tobacco: Never Used Alcohol Use Drinks/Week oz/Week Comments No Sex Assigned at Date Recorded Not on file Last Filed Vital Signs Vital Sign Reading Time Taken Comments Blood Pressure 154/47 04/24/2019 3:18 PM [facility] Pulse 67 04/24/2019 3:18 PM [facility] Temperature - - Respiratory Rate 16 04/24/2019 3:18 PM [facility] Oxygen Saturation - - Inhaled Oxygen Concentration - - Weight 79.4 kg (175 lb) 04/24/2019 3:18 PM [facility] Height 177.8 cm (5' 10") 04/24/2019 3:18 PM [facility] Body Mass Index 25.11 04/24/2019 3:18 PM [facility] Plan of Treatment Health Maintenance Due Date Last Done Comments SHINGLES VACCINES (#1) 1983 65+ PNEUMOCOCCAL VACCINE (1 of 1 - PPSV23) 1998 INFLUENZA VACCINE 10/06/2019 Procedures Procedure Name Priority Date/Time Associated Diagnosis Comme nts ECG 12-LEAD Routine 04/24/2019 3:11 S/P aortic valve Results for this PM [facility] replacement with procedure a re in bioprosthetic valve the resu lts section. TTE COMPLETE, WO Routine 04/24/2019 2:02 Nonrheumatic aortic Results for this CONTRAST, W PM [facility] valve stenosis procedure are in DOPPLER (74802) S/P AVR the results section. after 12/27/2018 Results ECG 12 lead (04/24/2019 3:11 PM [facility]) Pathologist Sig nature Ventricular rate 55 [facility] Atrial rate 55 [facility] SD interval 208 [facility] QRSD interval 100 [facility] QT interval 454 [facility] QTC interval 434 [facility] QRS axis 1 4 [facility] T wave axis 3 [facility] EKG impression Sinus [facility] bradycardia-Cannot rule out Anterior infarct (cited on or before 24-APR-2019)-Abnormal ECG- Specimen Narrative Performed At This result has an attachment that is no t available. Performing Organization Address City/State/ZIP Code Phon e Number [facility] MUSE [address] [place] [address] Echocardiogram complete w contrast and 3D if needed (04/24/2019 2:02 PM [facility]) Specimen Narrative Performed At This result has an attachment that is no t available. [facility] [address] [place] [address] Pat.Name: TREV STONE Pat.ID: [id number] .Date: 04/24/2019 Refer.MD: LUIS MARI MD Exam Time: 1:12:00 PM Study Type:Routine Echo Height: 68in Weight: 172lb BSA: 1.92 m2 Age: 10 1935,84Y Sex: MALE BP: 144/65 HR: 57 bpm Sonogrphr: Lou Barcenas, BS, RDCS Pat. Stat.:Outpatient Room: [address] Study Status:Final Echo Event ID:[id number] Order ID: [id number] Reason for Study:, s/p AVR History / Clinical:Valvular Heart Disease; Aortic Sten osis Procedures: 2D Echo, Colorflow Doppler, Intravenous Op tison Contrast Race: C SUMMARY: LV EF is normal. Estimated EF is 60-64%. RV systolic function is normal. Normal prosthetic valve velocity and gradient. Diastolic dysfunction Grade I (Mild): Impaired relaxat ion with normal LV filling pressures. FINDINGS: LV: LV size is normal. LV EF is normal. Overa ll wall motion is normal. Estimated EF is 60-64%. RV: RV size is normal. RV systolic function i s normal. LA: LA size is normal. RA: RA size is normal. AO: Aortic root diameter is normal. LUIS ENRIQUE: No pericardial effusion. AV: Bioprosthetic aortic valve. Normal prosth etic valve velocity and gradient. Surgical Prosthetic AV Doppler velocity index is 0.49 (normal>0.25). MV: No structural MV abnormalities noted. PV: No structural PV abnormalities noted. TV: No structural TV abnormalities noted. Mil d tricuspid regurgitation Carcamo: Diastolic dysfunction Grade I (Mild): Impa ired relaxation with normal LV filling pressures. Other: Estimated PA systolic pressure is 21 mmHg, assuming a mean RAP of 5 mmHg. MEASUREMENTS: 2D Parasternal Long Tower Ao An 2 cm LVPWd 1.2 cm Ao Rtd 3.2 cm Index 1.7 cm/m2 LA Ds 4.9 cm IVSd 1.1 cm RWT 0.45 LVIDd 5.3 cm Index 2.7 cm/m2 LV Mass 233 g (122-174) LVIDs 3.7 cm LVM In dex 121 g/m LV%fs 30 % LVOT 2 cm LA Sng Plane LA Area 20 cm (8.8-23.4) LA Vol 57 ml Index 30 ml/m2 LA LngAx 5.9 cm RA Sng Plane RA Vol 62 ml Index 32 ml/m2 RA LngAx 5.5 cm RA Area 20 cm (8.3-19.5) LVOT LVOT Area 3.1 cm DOPPLE R AV For Flow/TAYO AV pkVel 280 cm/s (100-170) AV AC/ET 0.33 AV mnVel 190 cm/s AV TVI 70 cm AV pkPG 31 mmHg AVpkAcRt 5845 cm/s AV Mean G 18 mmHg AV DeRt 756 cm/s AV ET 370 msec AV AC 122 msec (83-118) Aortic Valve AV DI 0.49 AV Area 1.5 cm (3-5) LVOT For Flow LVOT TVI 35 cm LVOTmnP G 3.2 mmHg LVOTpkVel 130 cm/s HR 51 bpm LVOTpkPG 6.7 mmHg LVOT LVOT SV 106 ml LVOT CO 5.4 l/min SVi 55 ml/m LVOT CI 2.8 l/m/m Signed 04/26/2019 11:41 AM Shawn Garrett M.D. Procedure Note Interface, Radiology Results In - 2019 11:41 AM [facility] Echocardiography Report [address] [place] [address] Pat.Name: TREV STONE Pat.I D: [id number] .Date: 04/24/2019 Refer .MD: LUIS MARI MD Exam Time: 1:12:00 PM Study Type:Routine Echo Height: 68in Weigh t: 172lb BSA: 1.92 m2 Age: 10 1935,84Y Sex: MALE BP: 144/65 HR: 57 bpm Sonog rphr: Lou Barcenas BS, RDCS Pat. Stat.:Outpatient Room: [address] Study Status:Final Echo Event ID:[id number] Order ID: [id number] Reason for Study:, s/p AVR History / Clinical:Valvular Heart Diseas e; Aortic Stenosis Procedures: 2D Echo, Colorflow Doppler, Intravenous Optison Contrast Race: C SUMMARY: LV EF is normal. Estimated EF is 60-64%. RV systolic function is normal. Normal prosthetic valve velocity and gra dient. Diastolic dysfunction Grade I (Mild): Im paired relaxation with normal LV filling pressures. FINDINGS: LV: LV size is normal. LV EF is no rmal. Overall wall motion is normal. Estimated EF is 60-64 %. RV: RV size is normal. RV systolic function is normal. LA: LA size is normal. RA: RA size is normal. AO: Aortic root diameter is normal . LUIS ENRIQUE: No pericardial effusion. AV: Bioprosthetic aortic valve. No rmal prosthetic valve velocity and gradient. Surgical [facility] AV Doppler velocity index is 0.49 (normal>0.25). MV: No structural MV abnormalities noted. PV: No structural PV abnormalities noted. TV: No structural TV abnormalities noted. Mild tricuspid regurgitation Carcamo: Diastolic dysfunction Grade I (Mild): Impaired relaxation with normal LV filling pressu res. Other: Estimated PA systolic pressure is 21 mmHg, assuming a mean RAP of 5 mmHg. MEASUREMENTS: 2D Parasternal Long Tower Ao An 2 cm LVPW d 1.2 cm Ao Rtd 3.2 cm Inde x 1.7 cm/m2 LA Ds 4.9 cm IVSd 1.1 cm RWT 0.45 LVIDd 5.3 cm Inde x 2.7 cm/m2 LV Mass 233 g (122-174) LVIDs 3.7 cm LVM Index 121 g/m LV%fs 30 % LVOT 2 cm LA Sng Plane LA Area 20 cm (8.8-23.4) L A Vol 57 ml Index 30 ml/m2 LA LngAx 5.9 cm RA Sng Plane RA Vol 62 ml Inde x 32 ml/m2 RA LngAx 5.5 cm RA Area 20 cm (8.3-19.5) LVOT LVOT Area 3.1 cm DOPPLER AV For Flow/TAYO AV pkVel 280 cm/s (100-170) AV AC/ET 0.33 AV mnVel 190 cm/s AV T 70 cm AV pkPG 31 mmHg AVpk AcRt 5845 cm/s AV Mean G 18 mmHg AV D eRt 756 cm/s AV ET 370 msec AV A C 122 msec (83-118) Aortic Valve AV DI 0.49 AV A rob 1.5 cm (3-5) LVOT For Flow LVOT TVI 35 cm LVOT mnPG 3.2 mmHg LVOTpkVel 130 cm/s HR 51 bpm LVOTpkPG 6.7 mmHg LVOT LVOT SV 106 ml LVOT CO 5.4 l/min SVi 55 ml/m LVO T CI 2.8 l/m/m Signed 04/26/2019 11:41 AM Shawn Garrett M.D. 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
--- OUTSIDE RECORDS SUMMARY | 2019-12-28 17:01 | XMS REPORT | Clinical Summary ---
:1935 Author Organization [facility] Address [address] [place] [id number] Care Team Providers Name Role Phone Elly Hilario MD Primary Care Provider Unavailable Allergies [...] Date S/p TAVR (transcatheter aortic valve replacement), bio prosthetic 01/07/2016 Aortic stenosis 01/19/2015 HTN (hypertension) 01/19/2015 Cancer of prostate 01/19/2015 Asthma 01/19/2015 TIA (transient ischemic attack) 01/19/2015 HLD (hyperlipidemia) 01/19/2015 Patient is Roman Catholic 01/19/2015 Family History Medical History Relation Name Comments Asthma Father Stroke Father Seizures Mother Diabetes Sister Relation Name Status Comments Father Mother Sister Social History Tobacco Use Types Packs/Day Years Used Date Former Smoker Quit: 03/07/18 71 Alcohol Use Drinks/Week oz/Week Comments Yes rarely Sex Assigned at Date Recorded Not on file Last Filed Vital Signs Not on file Plan of Treatment Not on file Implants Implanted Type Area Greenhouse Staff Device Shelf Model / Identifier Expiration Serial / Date Lot [place] Jayden Xt Transcatheter Heart Valve Valves N/A: NICKY Cee 09/17/2015 [id number] / Implanted: Qty: 1 on 02/12/2015 by Dank Cherry MD at [facility] Aorta LIF[employer]CIENCES 4 [id number] / Description:[place] Aortic Valve Stent Results Not on fileafter 12/27/2018 Insurance Payer Benefit Plan / Subscriber ID Effective Dates Phone Addre ss Type Group [facility]/MEDICARE [id number] 2015-Present MEDICARE MGD CARE COMPLETE Advance Directives For more information, please contact: [phone] Type Date Recorded 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
--- OUTSIDE RECORDS SUMMARY | 2019-12-28 17:02 | XMS REPORT | Summary of Care ---
:1935 Author Organization [facility] - [facility] Address [address] [place] [address] Care Team Providers Name Role Phone Igor Perry Insurance Hmo Igor Perry Primary Care Provider Reason for Visit Reason Comments NURSE VISIT ureteral stricture Encounter Details Date Type Department Care Team Description 11/20/2019 Nurse Visit [facility] Urology- Kristen Car MD [address] [place] [address]. [place] [address] Stricture of male [place] Nurse, [facility] Surgery Gu urethra, unspecified [address] [facility] [address] stricture type [address] (Primary Dx) [place] [address] Allergies No Known Allergiesdocumented as of this encounter (statuses as of 11/20/2019) Medications Medication Sig Dispensed Refills Start Date End Date Status HYDROcodone-acetaminoph TAKE 1 TABLET BY 0 9 Active en 5-325 mg tablet MOUTH TWICE DAILY FOR 28 DAYS predniSONE 10 mg tablet TAKE 1 TABLET BY 0 9 Active MOUTH TWICE DAILY FOR 5 DAYS tamsulosin 0.4 mg 24 hr Take by mouth 0 Active capsule daily. om Take by mouth. 0 Acti ve 3/E/linol/ala/oleic/gla /lip (OMEGA 3-6-9 ORAL) atorvastatin 20 mg Take 20 mg by 0 04/26/2019 Active tablet mouth daily. metoprolol tartrate 25 Take 25 mg by 0 04/26/2019 Active mg tablet mouth 2 (two) times daily. diclofenac 75 mg EC Take 1 tablet by 60 tablet 1 06/18/2019 Active tablet mouth 2 (two) times daily with meals. diclofenac 75 mg EC Take 1 tablet by 60 tablet 1 08/31/2019 Active tablet mouth 2 (two) times daily with meals. amoxicillin 500 mg Take 1 capsule 30 capsule 0 09/02/2019 Active capsuleIndications: by mouth 3 Urinary retention, (three) times Complicated UTI daily. (urinary tract infection) diclofenac 75 mg EC Take 1 tablet by 60 tablet 1 09/18/2019 Active tabletIndications: mouth 2 (two) Primary osteoarthritis times daily with of left knee meals. 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 documented as of this encounter Last Filed Vital Signs Not on filedocumented in this encounter Progress Notes Amy Norman RN - 11/20/2019 1:00 PM CDTAdan Tomy Yarbrough is a 84 year old male comes to clinic independent in ambulation for follow up. Pt comes alone . Pt in NAD w/ pain reported 0/10. Pt preferred language is Maltese. Pt. denies fall in last 12 months. Allergies and medications reviewed and updated. Patient was placed 16fr coude position [id number] balloon was deflated catheter was d/c. Patient tolerated procedure well. Patient was placed supin, prepped using betadine and draped using sterile technique. 16fr coude catheter was inserted into urethra and 10cc balloon was inflated. Urine bag was connected to catheter andpatient tolerated procedure well. Nurse time spent:30min documented in this encounter Plan of Treatment Date Type Specialty Care Team Description 12/20/2019 Office Visit Urology Robbie Car MD [address] [place], [place] [address]. [place], [place] [address] Health Maintenance Due Date Last Done Comments DTaP,Tdap,and Td Vaccines (1 - Tdap) 02/10/1952 Zoster Recombinant Vaccine (SHINGRIX) (1 of 2) 1983 Medicare Wellness Visit 1998 PNEUMOCOCCAL VACCINES 65+ (1 of 1 - PPSV23) 1998 INFLUENZA VACCINE (#1) 2019 Depression Screening 07/08/2020 07/09/2019 documented as of this encounter Results Not on filedocumented in this encounter Visit Diagnoses Diagnosis Stricture of male urethra, unspecified s tricture type - Primary documented in this encounter Insurance Payer Benefit Plan Subscriber ID Effective Dates Phone Address Type / Group HUMANA - HUMANA [place]O [id number] 2019-Presen dicare Adv MANAGED PLS O t [facility] [place] MEDICARE documented as of this encounter
--- OUTSIDE RECORDS SUMMARY | 2019-12-28 17:02 | XMS REPORT | Summary of Care ---
:1935 Author Organization [facility] - [facility] Address [address] [place] [address] Care Team Providers Name Role Phone Igor Perry Insurance Hmo Igor Perry Primary Care Provider Reason for Visit Reason Comments NURSE VISIT Catheter Care change Encounter Details Date Type Department Care Team Description 11/07/2019 Nurse Visit [facility] Urology- Kristen Car MD [address] [place] [address]. [place] [address] Stricture of male urethra, unspecified s tricture type (Primary Dx); [place] Nurse, [facility] Surgery Gu Retention of urine, unspecified [address] 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 documented as of this encounter Last Filed Vital Signs Vital Sign Reading Time Taken Comments Blood Pressure 150/74 11/07/2019 2:40 PM CDT Pulse 76 11/07/2019 2:40 PM CDT Temperature 36.4 C (97.6 F) 11/07/2019 2:40 PM CDT Respiratory Rate 18 11/07/2019 2:40 PM CDT Oxygen Saturation - - Inhaled Oxygen Concentration - - Weight 81.6 kg (180 lb) 11/07/2019 2:40 PM CDT Height - - Body Mass Index 25.83 09/02/2019 6:05 AM CDT documented in this encounter Progress Notes Shaina Hi - 11/07/2019 2:15 PM CDTPatient was placed supine position [id number] balloon was deflated catheter was d/c. Patient tolerated procedure well. Shaina Hi 11/07/2019 3:21 PM Shaina Starks - 11/07/2019 2:15 PM Anayeli Huitron Linnea is a 84 year old male comes to clinic independent in ambulation for cathter change. Ptcomes accompanied by granddaughter . Pt in NAD w/ pain reported 0/10. Pt preferred language is Turkmen. Pt. denies fall in last 12 months. Allergies and medications reviewed and updated. Shaina Hi 11/07/2019 2:41 PM documented in this encounter Plan of Treatment Health Maintenance Due Date [...] urethra, unspecified s tricture type - Primary Retention of urine, unspecified documented in this encounter
--- OUTSIDE RECORDS SUMMARY | 2019-12-28 17:02 | XMS REPORT | Continuity of Care Document ---
:1935 Author Organization [facility] t Address [address] [place] [address] Care Team Providers Name Role Phone Provider Primary Care Physician Unavailable Josep GAGE Attending Clinician Nurse, Surgery Gu Attending Clinician Unavailable Juanita GAGE, L Attending Clinician Paul GAGE, H. Attending Clinician Therese RESTREPO Attending Clinician Unavailable Payers Payer Name Policy Type Policy Effective Expiration Source Number Date Date TEXANPLUSTEXANPLUS [id number] 2016 Unrulyoriana solorzano [id number] 2016-Pr 00:00:00 M ethodist esentHMO Problems Condition Condition Condition Status Onset Resolution Last Treating Co mments Source Name Details Category Date Date Treatment Clinician Date Anemia Anemia Disease Active [facility] 1-15 [facility] st 00 S/P aortic S/P aortic Disease Active 2017-03 Overview : [facility] valve valve 0-17 Chronical [facility] replacemen replacemen 00:00: ly st t with t with 00 elevated bioprosthe bioprosthe AV tic valve tic valve gradients ~ 3.3 m/s since at least 2014. Essential Essential Disease Active 2017-03 Suyapa tobias hypertensi hypertensi 0-17 Me thodi on on 00:00: st 00 S/p TAVR S/p TAVR Disease [facility] 2015[facility]03 [facility]trans[facility]ath 1-02 Lisandra kes - eter eter 00:00: Medical aortic aortic 00 Center valve valve replacemen replacemen t), t), bioprosthe bioprosthe tic tic Aortic Aortic Disease Active 2014-[address] stenosis stenosis 1-15 [facility] HTN HTN Disease Active 2014-[address] (hypertens (hypertens 1-15 Lisandra kes - ion) ion) 00:00: Medical 00 [facility] Cancer of Cancer of Disease Active 2014-[address] [facility] prostate prostate 1-15 [facility] - 00:[facility]: [facility] 00 [facility] Asthma Asthma Disease Active 2014-[address] [facility] 1-15 [facility] - 00:[facility]: [facility] TIA TIA Disease Active 2014-[address] [facility] (transient (transient 1-15 Lisandra kes - ischemic ischemic 00:00: Medica l attack) attack) 00 [facility] HLD HLD Disease Active 2014-[address] (hyperlipi (hyperlipi 1-15 Lisandra kes - demia) demia) 00:00: Medical 00 [facility] Patient is Patient is Disease Active 2014-[address] Jehovah's Jehovah's 1-15 [facility] - Witness Witness 00:00: Medical 00 [facility] Allergies, Adverse Reactions, Alerts Allergy Allergy Status Severity Reaction(s) Onset Inactive Treating Comm ents Source Name Type Date Date Clinician Enalapri Drug Active Hives, 2014-[address] [facility] Allergy Itching 1-12 [facility] - 00:[facility]: [facility] 00 [facility] Family History Family Member Diagnosis Comments Start Date Stop Date Source Natural father Heart attack [facility] Natural father Asthma [facility] Natural father Stroke [facility] Natural mother Seizures [facility] Natural sister Diabetes [facility] Social History Social Habit Start Date Stop Date Quantity Comments Source Sex Assigned At [facility] Tobacco use and 2019-04-24 2019-04-24 Never used Chet Hameed ethodist exposure 00:00:00 00:00:00 Alcohol intake 2015-02-13 2015-02-13 Current drinker JESUS Macdonald - 00:00:00 00:00:00 of alcohol [facility] (finding) Alcohol Comment 2015-01-19 2015-01-19 rarely JESUS Dugan - 00:00:00 00:00:00 Medical Center History of 1972-03-07 Current smoker [facility] es - tobacco use 00:00:00 [facility] r Smoking Status Start Date Stop Date Source Never smoker Chet Boswellis esperanza Former smoker 2015-02-13 00:00:00 2015-02-13 00:00:00 [facility] Medications Ordered Filled Start Stop Current Ordering Indication Dosage Frequency Signature Comments Components Source Medication Medication Date Date Medication? Clinician (SIG) Name Name pantoprazol 2020- No 40mg QD Take 40 mg [facility] e 04-24 by mouth [facility] (PROTONIX) 15:16: 00:[address] 40 MG EC 42 :00 tablet tamsulosin Yes .4mg QD Take 0.4 Suyapa ston (FLOMAX) 2-18 mg by [facility] 0.4 mg 15:14: mouth st capsule 49 daily. acetaminoph 2019- No [place] on en-codeine 03-14 [facility] (TYLENOL 00:00: 00:00 st WITH 00 :00 CODEINE #3) 300-30 mg per tablet azithromyci 2019- No [place] n 03-12 [facility] (ZITHROMAX) 00:00: 00:00 st 500 MG 00 :00 tablet cefuroxime 2019- No [place] (CEFTIN) 03-12 [facility] 250 MG 00:00: 00:00 st tablet 00 :00 apixaban 2017-03- No 5mg Q.5D Take 1 [place] (ELIQUIS) 5 04-24 tablet (5 Me thodi mg tablet 00:00: 00:00 mg total) st 00 :00 by mouth 2 (two) times a day. traMADol 2017-03 Yes 50mg Q6H Take 50 mg Suyapa ston (ULTRAM) 50 0-10 by mouth Meth zoran mg tablet 00:00: every 6 st 00 (six) hours as needed. metoprolol No 25mg Q.5D Take 25 mg [facility] tartrate 11-14 by mouth 2 Meth zoran (LOPRESSOR) 00:00: 00:00 (two) st 25 mg 00 :00 times a tablet day. aspirin 81 2015-03 Yes 81mg QD Take [address] MG EC 03-08 by mouth [facility] - tablet 21:36: daily. Medical 37 Center atorvastati 2015-03 Yes 40mg QD Take [address] n (LIPITOR) 03-08 by mouth [facility] s - 40 MG 21:36: daily. Medical tablet 37 Center tamsulosin 2015-03 Yes .4mg QD Take 0.[address] [facility] (FLOMAX) 1-02 mg by [facility] - 0.4 mg Cp24 21:36: mouth Medic al 24 hr 37 daily. Center capsule Vital Signs Vital Name Observation Time Observation Value Comments Source Systolic blood 2019-04-24 15:18:00 154 mm[Hg] Bj n Moravian pressure Diastolic blood 2019-04-24 15:18:00 47 mm[Hg] Davin on Moravian pressure Heart rate 2019-04-24 15:18:00 67 /min Chet Marquez Respiratory rate 2019-04-24 15:18:00 16 /min Unruly Marquez Body height 2019-04-24 15:18:00 177.8 cm Chet Marquez Body weight 2019-04-24 15:18:00 79.379 kg Chet Marquez BMI 2019-04-24 15:18:00 25.11 kg/m2 Chet Marquez Procedures Procedure Date / Time Performed Performing Clinician [facility] e ECG 12-LEAD 2019-04-24 15:11:57 Luis Miller ethodist TTE COMPLETE, WO 2019-04-24 14:02:57 Luis Miller W DOPPLER ([id number]) Plan of Care Planned Activity Planned Date Details Comments Source Future Scheduled 2019-10-06 INFLUENZA VACCINE Bj Marquez Test 00:00:00 [code = INFLUENZA VACCINE] Future Scheduled 1998 65+ PNEUMOCOCCAL Chet Marquez Test 00:00:00 VACCINE (1 of 1 - PPSV23) [code = 65+ PNEUMOCOCCAL VACCINE (1 of 1 - PPSV23)] Future Scheduled 1983 SHINGLES VACCINES (#1) H oumicheline Moravian Test 00:00:00 [code = SHINGLES VACCINES (#1)] Encounters Start End Encounter Admission Attending Care Care Encounter Source Date/Time Date/Time Type Type Clinicians Facility Department ID 2019-12-21 2019-12-21 Telephone Josep [facility] [id number] 00:00:00 00:00:00 Robbie Kendrick [id number] [place] [id number] Professio [phone] [address] 2019-12-07 2019-12-07 Nurse Nurse, [facility] [id number] 10:38:50 11:10:03 Visit Surgery Roberto Kendrick [id number] [place] [id number] Professio [phone] [address] 2019-11-20 2019-11-20 Nurse Nurse, [facility] [id number] 13:06:00 13:52:14 Visit Surgery Roberto Kendrick [id number] [place] [id number] Professio [phone] [address] 2019-11-07 2019-11-07 Nurse Nurse, [facility] [id number] 14:34:31 14:49:31 Visit Surgery Roberto Kendrick [id number] [place] [id number] Professio [phone] [address] 2019-09-24 2019-09-24 [facility] [id number] 15:17:44 17:03:35 Visit Robbie Kendrick [id number] [place] [id number] Professio [phone] [address] 2019-09-17 2019-09-17 Refill Juanita [facility] [id number] 00:00:00 00:00:00 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 Stat.:Outpatient Room: [address] Study Status:Final Echo Event ID:[id number] Order ID: [id number] Reason for Study:, s/p AVR History / Clinical:Valvular Heart Disease; Aortic StenosisProcedures: 2D Echo, Colorflow Doppler, Intravenous Optison ContrastRace: C SUM DONNELL: -LV EF is normal.Estimated EF is 60-64%.RV systolic function is normal.Normal prosthetic valve velocity and gradient.Diastolic dysfunction Grade I (Mild): Impaired relaxation with normalLV filling pressures. ------FINDINGS:----- LV: LV size is normal. LV EF is normal. Overall wall motion is normal. Estimated EF is 60-64%.RV: RV size is normal. RV systolic function is normal.LA: LA size is normal.RA: RA size is normal.AO: Aortic root diameter is normal.LUIS ENRIQUE: No pericardial effusion.AV: Bioprosthetic aortic valve. Normal prosthetic valve velocity and gradient. Surgical Prosthetic AV Doppler velocity index is 0.49 (normal>0.25).MV: No structural MV abnormalities noted.PV: No structural PV abnormalities noted.TV: No structural TV abnormalities noted. Mild tricuspid regurgitation Carcamo: Diastolic dysfunction Grade I (Mild): Impaired relaxation with normal LV filling pressures.Other: Estimated PA systolic pressure is 21 mmHg, assuming a mean RAP of 5 mmHg. -MEASUREMENTS:------ 2DParasternal Long [place] Ao An 2 cm LVPWd 1.2 cm Ao Rtd 3.2 cm Index 1.7 cm/m2 LA Ds 4.9 cm IVSd 1.1 cm RWT 0.45 LVIDd 5.3 cm Index 2.7 cm/m2 LV Mass 233 g (122-174) LVIDs 3.7 cm LVM Index 121 g/m2 LV%fs 30 % LVOT 2 cm LA Sng Plane LA Area 20 cm2 (8.8-23.4) LA Vol 57 ml Index 30 ml/m2 LA LngAx 5.9 cm RA Sng Plane RA Vol 62 ml Index 32 ml/m2 RA LngAx 5.5 cm RA Area 20 cm2 (8.3-19.5)LVOT LVOT Area 3.1 cm2 DOPPLERAV For Flow/TAYO AV pkVel 280 cm/s (100-170) AV AC/ET 0.33 AV mnVel 190 cm/s AV TVI 70 cm AV pkPG 31 mmHg AVpkAcRt 5845 cm/s2 AV Mean G 18 mmHg AV DeRt 756 cm/s2 AV ET 370 msec AV AC 122 msec (83-118)Aortic Valve AV DI 0.49 AV Area 1.5 cm2 (3-5)LVOT For Flow LVOT TVI 35 cm LVOTmnPG 3.2 mmHg LVOTpkVel 130 cm/s HR 51 bpm LVOTpkPG 6.7 mmHg LVOT LVOT SV 106 ml LVOT CO 5.4 l/min SVi 55 ml/m2 LVOT CI 2.8 l/m/m2 Signed 04/26/2019 11:41 Lary Garrett M.D. ECG 12 lead 2019-04-25 17:40:32 Test Item Value Reference Range Interpretation Comme nts Ventricular rate (test code = 253) 55 Atrial rate (test code = 255) 55 NJ interval (test code = 266) 208 QRSD interval (test code = 260) 100 QT interval (test code = 264) 454 QTC interval (test code = 265) 434 QRS axis 1 (test code = 268) 4 T wave axis (test code = 270) 3 EKG impression (test code = 273) Sinus bradycardia-Cannot rule out Anterior infarct (cited on or before 24-APR-2019)-Abnormal ECG- Chet Marquez
--- OUTSIDE RECORDS SUMMARY | 2019-12-28 17:02 | XMS REPORT | Summary of Care ---
:1935 Author Organization [facility] - Health Address [address] [place] [address] Care Team Providers Name Role Phone Perry, Igor Insurance Hmo Perry E Primary Care Provider Reason for Visit Reason Comments Notification Encounter Details Date Type Department Care Team Description 09/17/2019 Refill [facility] Orthopaedic Eduardo Grant MD Notification Surgery- [place] [address] [facility], [address] [place] [address] [place] [address] [place] [address] [phone] Allergies No Known Allergiesdocumented as of this encounter (statuses as of 10/08/2019) Medications Medication Sig Dispensed Refills Start Date End Date Status HYDROcodone-acetami TAKE 1 0 09/11/2018 Active nophen 5-325 mg TABLET BY tablet MOUTH TWICE DAILY FOR 28 DAYS predniSONE 10 mg TAKE 1 0 09/22/2018 Ac tive tablet TABLET BY MOUTH TWICE DAILY FOR 5 DAYS tamsulosin 0.4 mg Take by 0 Ac tive 24 hr capsule mouth daily. om Take by 0 Active 3/E/linol/ala/oleic mouth. /gla/lip (OMEGA 3-6-9 ORAL) atorvastatin 20 mg Take 20 mg 0 04/26/2019 Active tablet by mouth daily. metoprolol tartrate Take 25 mg 0 04/26/2019 Active 25 mg tablet by mouth 2 (two) times daily. diclofenac 75 mg EC Take 1 60 tablet 1 06/18/2019 Active tablet tablet by mouth 2 (two) times daily with meals. diclofenac 75 mg EC Take 1 60 tablet 1 08/31/2019 Active tablet tablet by mouth 2 (two) times daily with meals. amoxicillin 500 mg Take 1 30 capsule 0 09/02/2019 Active capsuleIndications: capsule by Urinary retention, mouth 3 Complicated UTI (three) (urinary tract times daily. infection) diclofenac 75 mg EC Take 1 60 tablet 1 09/18/2019 Active tabletIndications: tablet by Primary mouth 2 osteoarthritis of (two) times left knee daily with meals. diclofenac 75 mg EC Take 1 60 tablet 1 05/22/2019 Discontinued tablet tablet by 0 (Reorder) mouth 2 (two) times daily with meals. 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 documented as of this encounter Last Filed Vital Signs Not on filedocumented in this encounter Plan of Treatment Health [...] filedocumented in this encounter Visit Diagnoses Diagnosis Primary osteoarthritis of left knee - Pr imary Primary localized osteoarthrosis, lower leg documented in this encounter Insurance Payer Benefit Plan / Subscriber ID Effective Dates Phone Addre ss Type Group JANET HOOD [id number] 2018-Rochelle Medicare Adv PLUS PLUS t HMO CLASSIC/VALUE documented as of this encounter
--- OUTSIDE RECORDS SUMMARY | 2019-12-28 17:03 | XMS REPORT | Summary of Care ---
:1935 Author Organization [facility] - [facility] Address [address] [place] [id number] Care Team Providers Name Role Phone Alta Perry Insurance Hmo Alta Perry Primary Care Provider Reason for Visit Reason Comments Assessment Encounter Details Date Type Department Care Team Description 12/21/2019 Telephone [facility] Urology- Kristen Car MD Assessment 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 HLD (hyperlipidemia) 04/09/2005 Overview: ICD10 Diagnosis 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 Utility documented as of this encounter (statuses as of 12/21/2019) Social History Tobacco Use Types Packs/Day Years Used Date Never Assessed Sex Assigned at Date Recorded Not on file documented as of this encounter Last Filed Vital Signs Not on filedocumented in this encounter Miscellaneous Notes Telephone Encounter - Amy Norman RN - 12/21/2019 2:41 PM CDTLm informing family that they may come to clinic to curing pickling packer statlock elephone Encounter - Demi Jean - 12/21/2019 1:31 PM CDTPatients Granddaughter called and stated that patient messed up his catheter and she would like to see if she can come curing pickling packer an extra tape clip, that straps catheter to leg. She stated the nurse gave her an extra one at the last visit. documented in this encounter Plan of Treatment Health Maintenance Due Date Last Done Comments DTaP,Tdap,and Td Vaccines (1 - Tdap) 02/10/1952 Zoster Recombinant Vaccine (SHINGRIX) (1 of 2) 1983 Medicare Wellness Visit 1998 PNEUMOCOCCAL VACCINES 65+ (1 of 1 - PPSV23) 1998 INFLUENZA VACCINE (#1) 2019 Depression Screening 07/08/2020 07/09/2019 documented as of this encounter Results Not on filedocumented in this encounter Insurance Payer Benefit Plan Subscriber ID Effective Dates Phone Address Type / Group HUMANA - HUMANA [place] [id number] 2019-Rochelle zendejas Adv MANA[place] [facility] [place] documented as of this encounter
--- OUTSIDE RECORDS SUMMARY | 2019-12-28 17:03 | XMS REPORT | Summary of Care ---
:1935 Author Organization [facility] - [facility] Address [address] [place] [id number] Care Team Providers Name Role Phone Igor Perry Insurance Hmo Igor Perry Primary Care Provider Reason for Visit Reason Comments Follow-up cath change Encounter Details Date Type Department Care Team Description 12/07/2019 Nurse Visit [facility] Urology- Kristen Car MD [address] [place] [address]. 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 Patient tolerated p rocedure well. Patient was placed supine, prepped using Chloroprep and draped using sterile technique. 16fr coude catheter was inserted into urethra and 10cc balloon was inflated. Urine bag was connected to catheter and patient tolerated procedure well. Nurse time spent:30min documented in this encounter Plan of Treatment Date Type Specialty Care Team Description 12/20/2019 Office Visit Urology Robbie Car MD [address] [place] [address] [phone] Health Maintenance Due Date Last Done Comments [...]
--- NOTE | 2019-12-28 17:42 | EDPHYS ---
Physician Documentation [facility] Name: Rusty Yarbrough Age: 84 yrs Sex: Male : 1935 Arrival Date: 12/28/2019 Time: 17:01 Bed 2 Private MD: ED Physician Calixto Mueller HPI: 12/27 17:30 This 84 yrs old Male presents to ER via Ambulatory with complaints of Foreign kdr Body In Throat. 17:30 The patient or guardian reports the patient has a suspected foreign body, of the kdr throat. The reported likely foreign body is piece of meat. Onset: The symptoms/episode began/occurred suddenly, just prior to arrival, .5 hour(s) ago. Current symptoms: coughing, Spitting up siliva. Historical: - Allergies: 17:14 Benadryl; ss 17:14 Enalapril; ss - PMHx: 17:14 "heart valve replacement"; Aortic Stenosis; Ataxia; acute, resolved now; bleeding ss ulcers; CAD; COPD; dyspnea; fatigue; Hyperlipidemia; Hypertension; Hypokalemia; melena; Myocardial infarction; syncope; Tachycardia; TIA; Vertigo; - Immunization history:: Adult Immunizations up to date. - Social history:: Smoking status: Patient denies any tobacco usage or history of. Patient/guardian denies using alcohol. ROS: 17:37 Constitutional: Negative for fever, chills, and weight loss, Eyes: Negative for injury, kdr pain, redness, and discharge, ENT: Negative for injury, pain, and discharge, Neck: Negative for injury, pain, and swelling, Cardiovascular: Negative for chest pain, palpitations, and edema, Respiratory: Negative for shortness of breath, cough, wheezing, and pleuritic chest pain, Back: Negative for injury and pain, : Negative for injury, bleeding, discharge, and swelling, MS/Extremity: Negative for injury and deformity, Skin: Negative for injury, rash, and discoloration, Neuro: Negative for headache, weakness, numbness, tingling, and seizure activity. Psych: Negative for depression, anxiety, suicide ideation, homicidal ideation, and hallucinations, Allergy/Immunology: Negative for hives, rash, and allergies, Endocrine: Negative for neck swelling, polydipsia, polyuria, polyphagia, and marked weight changes, Hematologic/Lymphatic: Negative for swollen nodes, abnormal bleeding, and unusual bruising. 17:37 Abdomen/GI: Positive for Spitting saliva. Exam: 17:37 Constitutional: This is a well developed, well nourished patient who is awake, alert, kdr and in no acute distress. Head/Face: Normocephalic, atraumatic. Eyes: Pupils equal round and reactive to light, extra-ocular motions intact. Lids and lashes normal. Conjunctiva and sclera are non-icteric and not injected. Cornea within normal limits. Periorbital areas with no swelling, redness, or edema. Neck: Trachea midline, no thyromegaly or masses palpated, and no cervical lymphadenopathy. Supple, full range of motion without nuchal rigidity, or vertebral point tenderness. No Meningismus. Chest/axilla: Normal chest wall appearance and motion. Nontender with no deformity. No lesions are appreciated. Cardiovascular: Regular rate and rhythm with a normal S1 and S2. No gallops, murmurs, or rubs. Normal PMI, no JVD. No pulse deficits. Respiratory: Lungs have equal breath sounds bilaterally, clear to auscultation and percussion. No rales, rhonchi or wheezes noted. No increased work of breathing, no retractions or nasal flaring. 17:37 ENT: Spitting saliva. Vital Signs: 17:11 BP 179 / 90; Pulse 79; Resp 18; Temp 98.2(TE); Pulse Ox 97% on R/A; Weight 77.11 kg; ss Pain 0/10; MDM: 17:41 Patient medically screened. kdr 17:42 Data reviewed: vital signs, nurses notes. Counseling: I had a detailed discussion with kdr the patient and/or guardian regarding: the historical points, exam findings, and any diagnostic results supporting the discharge/admit diagnosis, the need to transfer to another facility. Administered Medications: 18:06 Drug: Glucagon 1 mg Route: IVP; Site: left antecubital; sv 18:34 Follow up: Response: No adverse reaction; No change in condition em Disposition: 12/28/19 17:41 Transfer ordered to [facility]. Diagnosis is Esophageal obstruction. - Reason for transfer: Higher level of care. - Accepting physician is Capnargis - GI/ED MD. - Condition is Fair. - Problem is new. - Symptoms are unchanged. Signatures: Caryl Chairez RN RN sv Calixto Mueller MD MD kdr Chasity Cazares RN RN Maranda Francois RN RN lp1 Ramiro Carbajal RN em Corrections: (The following items were deleted from the chart) 19:15 17:41 12/28/2019 17:41 Transfer ordered to [facility]. lp1 Diagnosis is Esophageal obstruction. Reason for transfer: Higher level of care. Accepting physician is Capisch - GI/ED MD. Condition is Fair. Problem is new. Symptoms are unchanged. kdr
--- NOTE | 2019-12-28 17:42 | ER ---
Nurse's Notes [facility] Name: Rusty Yarbrough Age: 84 yrs Sex: Male : 1935 Arrival Date: 12/28/2019 Time: 17:01 Bed 2 Private MD: Diagnosis: Esophageal obstruction Presentation: 12/27 17:11 Chief complaint: Patient's son or daughter states: "He was eating ribs about 40 minutes ss ago and the meat is stuck in his throat. I got a few pieces out by grabbing it, and we tried coke, but it's not helping this time.". Coronavirus screen: Client denies travel out of the [place] in the last 14 days. Ebola Screen: Patient denies exposure to infectious person. Patient denies travel to an Ebola-affected area in the 21 days before illness onset. Initial Sepsis Screen: Does the patient meet any 2 criteria? No. Patient's initial sepsis screen is negative. Does the patient have a suspected source of infection? No. Patient's initial sepsis screen is negative. Risk Assessment: Do you want to hurt yourself or someone else? Patient reports no desire to harm self or others. Onset of symptoms was December 28, 2019. 17:11 Method Of Arrival: Ambulatory ss 17:11 Acuity: GAYLE 3 ss Historical: - Allergies: 17:14 Benadryl; ss 17:14 Enalapril; ss - PMHx: 17:14 "heart valve replacement"; Aortic Stenosis; Ataxia; acute, resolved now; bleeding ss ulcers; CAD; COPD; dyspnea; fatigue; Hyperlipidemia; Hypertension; Hypokalemia; melena; Myocardial infarction; syncope; Tachycardia; TIA; Vertigo; - Immunization history:: Adult Immunizations up to date. - Social history:: Smoking status: Patient denies any tobacco usage or history of. Patient/guardian denies using alcohol. Screenin:14 Abuse screen: Denies threats or abuse. Nutritional screening: No deficits noted. em Tuberculosis screening: No symptoms or risk factors identified. Fall Risk None identified. Assessment: 17:15 General: Appears in no apparent distress. uncomfortable, Behavior is calm, cooperative, em appropriate for age. Pain: Denies pain. Neuro: Level of Consciousness is awake, alert, obeys commands, Oriented to person, place, time, situation, Appropriate for age. Cardiovascular: Capillary refill < 3 seconds Patient's skin is warm and dry. Respiratory: Airway obstructed, food bolus stuck in throat Respiratory effort is even, unlabored, Respiratory pattern is regular, symmetrical. GI: Reports nausea, vomiting. Derm: Skin is intact, is fragile, is thin, Skin is pink, warm \\T\\ dry. Musculoskeletal: Capillary refill < 3 seconds, Range of motion: intact in all extremities. 18:02 Reassessment: report called to HENRRY Mcclendon at [facility], pending EMS transportation. em Vital Signs: 17:11 BP 179 / 90; Pulse 79; Resp 18; Temp 98.2(TE); Pulse Ox 97% on R/A; Weight 77.11 kg; ss Pain 0/10; ED Course: 17:01 Patient arrived in ED. ds1 17:05 Calixto Mueller MD is Attending Physician. kdr 17:07 Ramiro Carbajal RN is Primary Nurse. em 17:13 Triage completed. ss 17:14 Arm band placed on right wrist. ss 17:14 Patient has correct armband on for positive identification. Placed in gown. Bed in low em position. Adult w/ patient. Pulse ox on. NIBP on. 17:21 initiated a transfer with Misa Tom from the [facility] transfer center. eb 17:31 connected the GI production designer for [facility] with Dr. Mueller for patient transfer eb consultation. 17:[address] Roach the emergency room doctor production designer for [facility] with Dr. luis carlos Mueller for patient transfer consultation. 17:37 administrative approval given by MARCUS Tom/ patient has been accepted to [facility] eb ER/ Dr. Isabella Roach has accepted the patient in transfer/ report to be called to [phone]. 18:06 Inserted saline lock: 20 gauge in left antecubital area, using aseptic technique. sv Flushed left antecubital with 5 ml normal saline. 19:14 Primary Nurse role handed off by Ramiro Carbajal, HENRRY sg Administered Medications: 18:06 Drug: Glucagon 1 mg Route: IVP; Site: left antecubital; sv 18:34 Follow up: Response: No adverse reaction; No change in condition em Outcome: 17:41 ER care complete, transfer ordered by . kdr 19:15 Patient left the ED. lp1 Signatures: aCryl Chairez, RN Salazar Lyon RN Calixto Quintana MD MD kdr Munoz, Edgar, RN RN em San[place], Demi dsChasity Sarkar RN RN ss Maranda Francois RN RN [facility] Francy Suero
[2019-12-28] MEDS ORDERED: GLUCAGON 1 MG/VIAL ONE (17:49)
[2019-12-28] MEDS ORDERED: WATER FOR INJ,STERILE 10 ML ONE (17:49)
[2019-12-28 19:38] VITALS: BP 179/90; TEMP 98.2; O2SAT 97
== END 2019-12-28 19:15 | disposition short-term general hospital (02) ==
LOC: ER 16:58
DX: K22.2 Esophageal obstruction (principal); I10 Essential (primary) hypertension; I25.2 Old myocardial infarction; Z88.8 Allergy status to other drugs, medicaments and biological substances; Z95.4 Presence of other heart-valve replacement
CPT/HCPCS: 96374; 99283; J1610

== ENCOUNTER 2020-07-20 09:33 | Inpatient (IN) | payer OTHER ==
--- OUTSIDE RECORDS SUMMARY | 2020-07-20 09:38 | XMS REPORT | Continuity of Care Document ---
:1935 Author Organization [facility] t Address [address] [place] [address] Care Team Providers Name Role Phone Provider Primary Care Physician Unavailable Juanita GAGE, Phoebe Attending Clinician Jaye Crabtree Attending Clinician Doctor Unassigned, Name Attending Clinician Unavailable Adriana Roach MD Attending Clinician Miguelina GAGE Attending Clinician José Miguel Samuel MD Attending Clinician Marie Elkins MD Attending Clinician Lauren GAGE Attending Clinician Shashank Freitas MD Attending Clinician Mary GAGE, [facility] Attending Clinician ADRIANA ROACH Attending Clinician Unavailable Junie GAGE Attending Clinician Josep GAGE Attending Clinician Nurse, Surgery Gu Attending Clinician Unavailable PAUL Attending Clinician Unavailable LAUREN Admitting Clinician Unavailable Payers Payer Name Policy Type Policy Effective Date Expiration Date Sour ce Number [facility] [id number] [facility] - MEDICARE MGD 00:00:00 - Medical CAREAARP/MEDICARE Center [id number] 2015-Present [employer] - MEDICARE [id number] [address] [facility] MGD CAREHUMANA 00:00:00 - Medical MEDICARE Center [id number] 020-PresentMaps Contracted Problems Condition Condition Condition Status Onset Resolution Last Treating Co mments Source Name Details Category Date Date Treatment Clinician Date Neuropathy Neuropathy Problem Active [facility] due to Due to -12 Family diabetes Diabetes 00:00: Practi c mellitus Mellitus 00 e Overactive Overactive Problem Active [facility] bladder Bladder -12 Family 00:00: Practic 00 e Hyperlipid Hyperlipid Problem Active [facility] emia emia -04 Family 00:00: Practic 00 e Hypertensi Hypertensi Problem Active [facility] ve ve 1-04 Family disorder Disorder 00:00: Practi c 00 e 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 00:00: Practic block Block 00 e Cardiac Cardiac Problem Active [facility] arrhythmia Arrhythmia 1-04 [facility] 00:00: Practic 00 e Cerebrovas Cerebrovas Problem Active [facility] cular cular 1-04 Family accident Accident 00:00: Practi c 00 e Asthma Asthma Problem Active [facility] 1-04 Family 00:00: Practic 00 e Chronic Chronic Problem Active [facility]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 1-04 [facility] e lung e Lung 00:00: Practic disease Disease 00 e Benign Benign Problem Active [facility] prostatic Prostatic 1-04 Fami ly hyperplasi Hyperplasi 00:00: Pr actic a a 00 e History of History of Problem Active [facility] cerebrovas Cerebrovas 1-04 Timmy kelly 00:00: Practic accident Accident 00 e Long-term Long-term Problem Active Hnanah zoe current Current 1-04 Family use of Use of 00:00: Practic anticoagul Anticoagul 00 e ant ant Long-term Long-term Problem Active Hannah zoe current Current 1-04 Family use of Use of 00:00: Practic opiate Opiate 00 e analgesic Analgesic drug Drug Obstructio Obstructio Disease Active 2019-[address] [facility] of n of 0-24 [facility] - esophagus esophagus 00:00: Medi ezekiel due to due to 00 Center food food impaction impaction Food Food Disease Active 2019-[address] [facility] impaction impaction 0-24 [facility] - of of 00:00: Medical esophagus esophagus 00 Cent er S/P S/P Disease Active 2019-[address] [facility] [address] endoscopy endoscopy 0-23 [facility] - 00:00: Medical 00 [facility] Anemia Anemia Disease Active [facility] 1-15 [facility]i 00:00: st 00 S/P aortic S/P aortic Disease Active 2017-03 Overview : [facility] valve valve 0-17 Formatt[facility] Methodi replacemen replacemen 00:00: g of this st t with t with 00 note bioprosthe bioprosthe might be tic valve tic valve different from the original. Chronical ly elevated AV gradients ~ 3.3 m/s since at least 2014. 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 [facility] (transcath (transcath 1-02 Jasen kes - eter eter 00:00: Medical aortic aortic 00 Center valve valve replacemen replacemen t), t), bioprosthe bioprosthe tic tic Aortic Aortic Disease Active 2014-[address] [facility] [address] stenosis stenosis 1-15 [facility] - 00:00: Medical 00 [facility] HTN HTN Disease Active 2014-[address] [facility] (hypertens (hypertens 1-15 Jasen kes - ion) ion) 00:00: Medical 00 Center Cancer of Cancer of Disease Active 2014-[address] [facility] prostate prostate 1-15 [facility] - 00:00: Medical 00 Center Asthma Asthma Disease Active 2014-[address] [facility] 1-15 [facility] - 00:00: Medical 00 Center TIA TIA Disease Active 2014-[address] [facility] (transient (transient 1-15 Jasen kes - ischemic ischemic 00:00: Medica l attack) attack) 00 Center HLD HLD Disease Active 2014-[address] [facility] (hyperlipi (hyperlipi 1-15 Jasen kes - demia) demia) 00:00: Medical 00 Center Patient is Patient is Disease Active 2014-[address] Jehovah's Jehovah's 1-15 [facility] - Witness Witness 00:00: Medical 00 Center Allergies, Adverse Reactions, Alerts Allergy Allergy Status Severity Reaction(s) Onset Inactive Treating Comm ents Source Name Type Date Date Clinician Diphenhy Propensi Active 2019-[address] [facility] [address] dramine ty to 0-23 [facility] - Hcl adverse 00:00: Medical reaction 00 [facility] s Enalapri Drug Active Hives, 2014-[address] [facility] l Allergy Itching 1-12 [facility] - 00:00: Medical 00 [facility] Family History Family Member Diagnosis Comments Start Date Stop Date Source Natural father Heart attack Chet Marquez Natural father Asthma [facility] Natural father Stroke [facility] Natural mother Seizures [facility] Natural sister Diabetes [facility] Social History Social Habit Start Date Stop Date Quantity Comments Source Sex Assigned At [facility] Tobacco use and 2020-01-01 2020-01-01 Never [address] [facility] - exposure 00:00:00 00:00:00 [facility] Alcohol intake 2020-01-01 2020-01-01 Current drinker [facility] - 00:00:00 00:00:00 of alcohol [facility] (finding) Alcohol Comment 2015-01-19 2015-01-[address] [facility] - 00:00:00 00:00:00 [facility] History of 1972-03-07 Current smoker [facility] Status Start Date Stop Date Source Former smoker 2020-01-01 00:00:00 2020-01-01 00:00:00 [facility] Never smoker [place] [facility] Medications Ordered Filled Start Stop Current Ordering Indication Dosage Frequency Signature Comments Components Source Medication Medication Date Date Medication? Clinician (SIG) Name Name clindamycin 2019-03- No 300mg [id number] Take [address] [facility] [address] (CLEOCIN) 0-30 11- [id number] capsule [facility] - 300 MG 00:00: 23:59 3D (300 mg Medical capsule 00 :00 total) by Center mouth 3 (three) times daily for 2 days. clindamycin 2019-03- No 300mg [id number] Take [address] [facility] (CLEOCIN) 0-30 10- [id number] capsule [facility] - 300 MG 00:00: 00:00 3D (300 mg Medical capsule 00 :00 total) by Center mouth 3 (three) times daily for 2 days. aspirin 81 2019-03 Yes 81mg QD Take [address] MG EC 0-29 by mouth [facility] - tablet 16:01: daily. Medical 12 Center atorvastati 2019-03 Yes 40mg QD Take [address] [facility] n (LIPITOR) 0-29 by mouth Luke s - 40 MG 16:01: daily. Medical tablet 12 Center tamsulosin 2019-03 Yes .4mg QD Take 0.[address] [facility] [facility] (FLOMAX) 0-29 mg by [facility] - 0.4 mg Cp24 16:01: mouth Medic al 24 hr 12 daily. Center capsule HYDROcodone 2019-03 Yes 1{tbl} Take [address] -acetaminop 0-29 tablet by Gilberto messer (NORCO 16:01: mouth Medica l 5-325) 12 every 8 Center 5-325 mg (eight) per tablet hours as needed for Pain. HYDROcodone 2019-03 2020- No 1{tbl} Take [address] -acetaminop 0-29 10-29 tablet by Jasen messer (NORCO 11:03: 00:00 mouth Medic al 5-325) 42 :00 every 8 Center 5-325 mg (eight) per tablet hours as needed for Pain. pantoprazol 2019-03 2020- No 40mg Q.5D Take [address] e 0-29 11-28 tablet (40 [facility] - (PROTONIX) 00:00: 23:59 mg total) M edical 40 MG 00 :00 by mouth 2 Center tablet (two) times daily for 30 days. warfarin 2019-03 2020- No 2.5mg QD Take 1 [facility] (COUMADIN, 0-29 11-08 tablet [facility] - JANTOVEN) 00:00: 23:59 (2.5 mg Medi ezekiel 2.5 MG 00 :00 total) by Center tablet mouth every evening for 10 days. pantoprazol 2019-03 2020- No 40mg QD Take [address] [facility] e 0-28 10-29 tablet (40 [facility] - (PROTONIX) 00:00: 00:00 mg total) M edical 40 MG 00 :00 by mouth Center tablet daily for 30 days. tamsulosin Yes .4mg QD Take 0.4 [facility] [address] (FLOMAX) 2-18 mg by Methodi 0.4 mg 15:14: mouth st capsule 49 daily. traMADol 2017-03 Yes 50mg Q6H Take 50 mg [facility] ston (ULTRAM) 50 0-10 by mouth Meth zoran mg tablet 00:00: every 6 st 00 (six) hours as needed. atorvastati atorvastati No atorvastat [place] n 20 mg n 20 mg in 20 mg Famil y tablet TAKE tablet TAKE tablet Practic 1 TABLET BY 1 TABLET BY TAKE 1 e MOUTH ONCE MOUTH ONCE TABLET BY DAILY DAILY MOUTH ONCE DAILY diclofenac diclofenac No diclofenac [facility] sodium 75 sodium 75 sodium 75 Family mg mg mg Practic tablet,aisha tablet,aisha tablet,del e yed release yed release ayed TAKE 1 TAKE 1 release TABLET BY TABLET BY TAKE 1 MOUTH TWICE MOUTH TWICE TABLET BY DAILY WITH DAILY WITH MOUTH MEALS MEALS TWICE DAILY WITH MEALS gabapentin gabapentin No 1capsul BID gabapentin [facility] 400 mg 400 mg e(s) 400 mg Family capsule capsule capsule Practi c Take 1 Take 1 Take 1 e capsule capsule capsule twice a day twice a day twice a by oral by oral day by route. route. oral route. hydrocodone [facility] 10 Family mg-acetamin mg-acetamin mg-acetami Practic ophen 325 ophen 325 nophen 325 e mg tablet mg tablet mg tablet Take 1 Take 1 Take 1 tablet tablet tablet every 4 every 4 every 4 hours by hours by hours by oral route. oral route. oral route. hydrocodone hydrocodone No [facility] 5 5 e 5 Family mg-acetamin mg-acetamin mg-acetami Practic ophen 325 ophen 325 nophen 325 e mg tablet mg tablet mg tablet TAKE 1 TAKE 1 TAKE 1 TABLET BY TABLET BY TABLET BY MOUTH THREE MOUTH THREE MOUTH TIMES DAILY TIMES DAILY THREE TIMES DAILY metoprolol metoprolol No metoprolol [facility] tartrate 25 tartrate 25 tartrate Family mg tablet mg tablet 25 mg Prac tic TAKE 1 TAKE 1 tablet e TABLET BY TABLET BY TAKE 1 MOUTH TWICE MOUTH TWICE TABLET BY DAILY DAILY MOUTH TWICE DAILY Myrbetriq Myrbetriq No Myrbetriq [facility] 25 mg 25 mg 25 mg Family tablet,exte tablet,exte tablet,ext Practic nded nded ended e release release release TAKE 1 TAKE 1 TAKE 1 TABLET BY TABLET BY TABLET BY MOUTH ONCE MOUTH ONCE MOUTH ONCE DAILY FOR DAILY FOR DAILY FOR 30 DAYS 30 DAYS 30 DAYS Narcan 4 Narcan 4 No Narcan 4 Hannah zoe mg/actuatio mg/actuatio mg/actuati Family n nasal n nasal on nasal Pract ic spray spray spray e ADMINISTER ADMINISTER ADMINISTER A SINGLE A SINGLE A SINGLE SPRAY SPRAY SPRAY INTRANASALL INTRANASALL INTRANASAL Y INTO ONE Y INTO ONE LY INTO NOSTRIL. NOSTRIL. ONE CALL 911. CALL 911. NOSTRIL. JULY REPEAT JULY REPEAT CALL 911. X 1. X 1. JULY REPEAT X 1. pantoprazol pantoprazol No 1 Q1D pantoprazo [place] e 40 mg e 40 mg le 40 mg Famil y tablet,aisha tablet,aisha tablet,del Practic yed release yed release ayed e Take 1 Take 1 release tablet tablet Take 1 every day every day tablet by oral by oral every day route. route. by oral route. Pneumovax-2 Pneumovax-2 No Pneumovax- Village 3 25 3 25 23 25 Family mcg/0.5 mL mcg/0.5 mL mcg/0.5 mL Practic injection injection injection e syringe syringe syringe PHARMACIST PHARMACIST PHARMACIST ADMINISTERE ADMINISTERE ADMINISTER D D ED IMMUNIZATIO IMMUNIZATIO IMMUNIZATI N N ON ADMINISTERE ADMINISTERE ADMINISTER D AT TIME D AT TIME ED AT TIME OF OF OF DISPENSING DISPENSING DISPENSING prednisone prednisone No prednisone [facility] 5 mg tablet 5 mg tablet 5 mg F amily TAKE 1 TAKE 1 tablet Practic TABLET BY TABLET BY TAKE 1 e MOUTH TWICE MOUTH TWICE TABLET BY DAILY FOR 5 DAILY FOR 5 MOUTH DAYS DAYS TWICE DAILY FOR 5 DAYS Shingrix Shingrix No Shingrix Hannah zoe (PF) 50 (PF) 50 (PF) 50 Family mcg/0.5 mL mcg/0.5 mL mcg/0.5 mL Practic intramuscul intramuscul intramuscu e ar ar lar suspension, suspension, suspension kit kit , kit PHARMACIST PHARMACIST PHARMACIST ADMINISTERE ADMINISTERE ADMINISTER D D ED IMMUNIZATIO IMMUNIZATIO IMMUNIZATI N N ON ADMINISTERE ADMINISTERE ADMINISTER D AT TIME D AT TIME ED AT TIME OF OF OF DISPENSING DISPENSING DISPENSING tamsulosin tamsulosin No tamsulosin [facility] 0.4 mg 0.4 mg 0.4 mg Family capsule capsule capsule Practi c TAKE 1 TAKE 1 TAKE 1 e CAPSULE BY CAPSULE BY CAPSULE BY MOUTH ONCE MOUTH ONCE MOUTH ONCE DAILY FOR DAILY FOR DAILY FOR 30 DAYS 30 DAYS 30 DAYS warfarin 1 warfarin 1 No warfarin 1 Village mg tablet mg tablet mg tablet Family TAKE 1 2 TAKE 1 2 TAKE 1 2 Pra ctic (ONE HALF) (ONE HALF) (ONE HALF) e TABLET BY TABLET BY TABLET BY MOUTH ONCE MOUTH ONCE MOUTH ONCE DAILY DAILY DAILY warfarin warfarin No warfarin Hannah zoe 2.5 mg 2.5 mg 2.5 mg Family tablet TAKE tablet TAKE tablet Practic 1 TABLET BY 1 TABLET BY TAKE 1 e MOUTH ONCE MOUTH ONCE TABLET BY DAILY IN DAILY IN MOUTH ONCE THE EVENING THE EVENING DAILY IN FOR 10 DAYS FOR 10 DAYS THE EVENING FOR 10 DAYS warfarin 4 warfarin 4 No warfarin 4 Village mg tablet mg tablet mg tablet Family TAKE 1 TAKE 1 TAKE 1 Practic TABLET BY TABLET BY TABLET BY e MOUTH ONCE MOUTH ONCE MOUTH ONCE DAILY DAILY DAILY Immunizations Ordered Immunization Filled Immunization Date Status Commen ts Source Name Name pneumococcal pneumococcal 2019-03-31 [facility] polysaccharide PPV23 polysaccharide PPV23 00:00:00 Practice Tdap Tdap 2019-03-07 [facility] 00:00:00 Practice Vital Signs Vital Name Observation Time Observation Value Comments Source BP Diastolic 2020-03-10 00:00:00 68 mm[Hg] [facility] Height 2020-03-10 00:00:00 68 [in_i] [facility] BMI (Body Mass Index) 2020-03-10 00:00:00 27.4 kg/m2 [facility] BP Systolic 2020-03-10 00:00:00 126 mm[Hg] [facility] Body Weight 2020-03-10 00:00:00 180 [lb_av] [facility] Heart rate 2020-01-03 15:36:00 75 /min [facility] Respiratory rate 2020-01-03 15:36:00 19 /min [facility] Oxygen saturation in 2020-01-03 15:36:00 94 /min [facility] Arterial blood by Medical Ce nter Pulse oximetry Systolic blood 2020-01-03 15:00:00 136 mm[Hg] [facility] Diastolic blood 2020-01-03 15:00:00 67 mm[Hg] [facility] Body temperature 2020-01-03 15:00:00 36.61 Natalie [facility] Body weight 2020-01-03 04:20:00 81.194 kg [facility] BMI 2020-01-03 04:20:00 27.22 kg/m2 [facility] Body height 2019-12-28 20:15:00 172.7 cm [facility] Procedures Procedure Date / Time Performing Clinician Source Performed CBC W/PLT COUNT & AUTO 2020-01-03 06:20:00 Nirmal [facility] COMPREHENSIVE METABOLIC 2020-01-03 06:20:00 Nirmal, [facility] MAGNESIUM 2020-01-03 06:20:00 Nirmal, [facility] PHOSPHORUS 2020-01-03 06:20:00 Nirmal, [facility] PROTHROMBIN TIME/INR 2020-01-03 06:20:00 Harika Elkins [facility] PROTHROMBIN TIME/INR 2020-01-02 17:46:00 Harika Elkins [facility] CTA CHEST 2020-01-02 13:56:00 Dank Valladares [facility] CBC W/PLT COUNT & AUTO 2020-01-02 05:24:00 Nirmal, [facility] COMPREHENSIVE METABOLIC 2020-01-02 05:24:00 Nirmal, [facility] MAGNESIUM 2020-01-02 05:24:00 Nirmal, [facility] PHOSPHORUS 2020-01-02 05:24:[address] [facility] XR ESOPH SWALLOW FUNCTION 2020-01-01 10:18:00 NirmalIngrid hartley [facility] W/CINE VIDEO [facility] CBC W/PLT COUNT & AUTO 2020-01-01 05:15:00 Nirmal, [facility] COMPREHENSIVE METABOLIC 2020-01-01 05:15:00 Nirmal, [facility] MAGNESIUM 2020-01-01 05:15:00 Nirmal, [facility] PHOSPHORUS 2020-01-01 05:15:00 Nirmal, [facility] POCT-GLUCOSE METER 2019-12-31 18:35:00 Jimmie [facility] POCT-GLUCOSE METER 2019-12-31 14:37:00 [facility] CBC W/PLT COUNT & AUTO 2019-12-31 05:02:00 Nirmal, [facility] COMPREHENSIVE METABOLIC 2019-12-31 05:02:00 Nirmal, [facility] MAGNESIUM 2019-12-31 05:02:00 Nirmal, [facility] PHOSPHORUS 2019-12-31 05:02:00 Nirmal, [facility] US RENAL COMPLETE 2019-12-31 04:51:00 Nirmal, [facility] XR CHEST 1 VIEW 2019-12-31 01:13:00 Eren Younger [facility] PORTABLE/BEDSIDE Medical Center CBC W/PLT COUNT & AUTO 2019-12-30 18:30:00 José Miguel Selby [facility] 2D ECHO W/ DOPPLER 2019-12-30 13:56:[address] [facility] - (CW/PW/COLOR) [facility] MRSA SCREEN 2019-12-30 08:59:00 José Miguel Selby [facility] - [facility] VANCOMYCIN LEVEL, TROUGH 2019-12-30 08:58:00 Misael Puga [facility] CBC W/PLT COUNT & AUTO 2019-12-30 04:01:00 Nirmal, [facility] COMPREHENSIVE METABOLIC 2019-12-30 04:01:00 Nirmal, [facility] MAGNESIUM 2019-12-30 04:01:00 Nirmal, [facility] PHOSPHORUS 2019-12-30 04:01:00 Nirmal, [facility] BLOOD GAS, ARTERIAL 2019-12-30 04:00:00 Eren Younger [facility] XR CHEST 1 VIEW 2019-12-30 02:24:00 Eren Younger [facility]/BEDSIDE [facility] CORTISOL,60 MIN 2019-12-30 01:40:00 Jimmie [facility] CORTISOL,30 MIN 2019-12-30 01:06:00 Jimmie [facility] ACTH STIMULATION 2019-12-30 00:33:00 Jimmie [facility] CORTISOL,BASELINE 2019-12-30 00:33:00 Jimmei [facility] SODIUM, RANDOM URINE 2019-12-29 19:10:00 Nirmal, [facility] CREATININE, RANDOM URINE 2019-12-29 19:10:00 Nirmal, [facility] POCT-GLUCOSE METER 2019-12-29 17:55:00 Jimmie [facility] BLOOD GAS, ARTERIAL 2019-12-29 15:54:00 Nirmal, [facility] BASIC METABOLIC PANEL (7) 2019-12-29 15:54:00 Nirmal, [facility] MAGNESIUM 2019-12-29 15:54:00 Nirmal, [facility] XR ABDOMEN / KUB 1 VIEW 2019-12-29 12:03:00 Nirmal, [facility] MRSA SCREEN 2019-12-29 10:40:00 Misael Puga [facility] LACTIC ACID, ARTERIAL 2019-12-29 10:40:00 José Miguel Selby [facility] B-TYPE NATRIURETIC FACTOR 2019-12-29 10:40:00 Cassandra Selby [facility] (BNP) [facility] BLOOD CULTURE 2019-12-29 07:05:00 Kristen Quinones [facility] BLOOD CULTURE 2019-12-29 07:03:00 Kristen Quinones [facility] SPUTUM CULTURE + GRAM 2019-12-29 06:53:00 Nathaniel Earl [facility] LACTIC ACID, VENOUS 2019-12-29 06:26:00 Kristen Quinones [facility] PROTHROMBIN TIME/INR 2019-12-29 06:26:00 Kristen Quinones [facility] APTT 2019-12-29 06:26:00 Kristen Quinones [facility] TROPONIN I 2019-12-29 05:45:00 Kristen Quinones [facility] URINE CULTURE 2019-12-29 05:44:00 Kristen Quinones [facility] TROPONIN I 2019-12-29 05:44:00 Kristen Quinones [facility] TSH/FREE T4 IF INDICATED 2019-12-29 05:44:00 Nathaniel Earl [facility] URINALYSIS W/ REFLEX 2019-12-29 05:44:00 Nathaniel Earl [facility] URINE CULTURE [facility] XR CHEST 1 VIEW 2019-12-29 05:40:00 Nathaniel Earl [facility]/BEDSIDE [facility] ECG 12-LEAD 2019-12-29 04:01:18 Kristen Quinones [facility] POCT-BLOOD GASES, 2019-12-29 04:01:00 [facility] POCT-SODIUM 2019-12-29 04:01:00 [facility]-POT[facility]SIUM 2019-12-29 04:01:00 Doc [facility] POCT-HEMOGLOBIN 2019-12-29 04:01:00 [facility] PO[facility]-HEMATOCRIT 2019-12-29 04:01:00 Doc [facility] POCT-CALCIUM IONIZED 2019-12-29 04:01:00 Doc [facility] POCT-GLUCOSE 2019-12-29 04:01:00 Doc [facility] XR CHEST 1 VIEW 2019-12-29 03:58:00 [facility] CBC W/PLT COUNT & AUTO 2019-12-29 03:58:00 Nirmal [facility] COMPREHENSIVE METABOLIC 2019-12-29 03:58:00 Nirmal [facility] MAGNESIUM 2019-12-29 03:58:[address] [facility] PHOSPHORUS 2019-12-29 03:58:[address] [facility] TROPONIN I 2019-12-29 03:58:00 [facility]AD 2019-12-29 03:51:33 Unknown, Hl7 [facility] ECG 12-LEAD 2019-12-29 03:39:19 Unknown, 7 [facility] ECG 12-LEAD 2019-12-29 03:36:12 Unknown, 7 [facility] REPORT OF PROCEDURE - 2019-12-29 02:18:50 Malachi Zaman [facility] ENDOSCOPY [facility] SARS-COV2/RT-PCR ([facility] & 2019-12-28 23:04:00 Nirmal, [facility] REF LABS) [facility] CBC W/PLT COUNT & AUTO 2019-12-28 22:38:00 [facility] BASIC METABOLIC PANEL (7) 2019-12-28 22:38:00 Isabella Roach [facility] ECG 12-LEAD 2019-12-28 22:15:04 Roach, Isabella [facility] XR CHEST 1 VIEW 2019-12-28 21:56:00 Isabella Roach [facility] - PORTABLE/BEDSIDE [facility] UPPER ENDOSCOPY 2019-12-28 18:00:00 Malachi Zaman [facility] REPORT OF PROCEDURE - 2019-12-28 00:00:00 Provider, Default [facility] - ENDOSCOPY SCAN Scanning [facility] Plan of Care Planned Activity Planned Date Details Comments Source Future Scheduled Test 2020-11-[address] [facility] - 00:00:00 (Season Ended) [code Medical Center = INFLUENZA VACCINE (Season Ended)] Future Scheduled Test 2020-10-05 INFLUENZA VACCINE [facility] 00:00:00 [code = INFLUENZA VACCINE] Future Scheduled Test 2020-03-07 DEPRESSION SCREENING [facility] - 00:00:00 (12+) [code = Medical Center DEPRESSION SCREENING (12+)] Future Scheduled Test 2016-11-06 MEDICARE ANNUAL [facility] - 00:00:00 WELLNESS (YEAR 2 or Medical Center FIRST YEAR if no IPPE) [code = MEDICARE ANNUAL WELLNESS (YEAR 2 or FIRST YEAR if no IPPE)] Future Scheduled Test 1998 65+ PNEUMOCOCCAL [facility] 00:00:00 VACCINE (1 of 1 - PPSV23) [code = 65+ PNEUMOCOCCAL VACCINE (1 of 1 - PPSV23)] Future Scheduled Test 1998 PNEUMOCOCCAL 65+ YRS [facility] - 00:00:00 (1 of 1 - Medical Center [id number]) [code = PNEUMOCOCCAL 65+ YRS (1 of 1 - [id number])] Future Scheduled Test 1983 SHINGLES VACCINES [facility] 00:00:00 (#1) [code = SHINGLES VACCINES (#1)] Future Scheduled Test 1983 SHINGLES VACCINES (1 [facility] - [facility] 2) [code = [facility] [facility] SHINGLES VACCINES (1 of 2)] Future Scheduled Test 1954-02-10 DTAP/TDAP/TD VACCINES [facility] - 00:00:00 (1 - Tdap) [code = Medical C enter DTAP/TDAP/TD VACCINES (1 - Tdap)] Future Scheduled Test 1951 COVID-19 VACCINE (1) [facility] 00:00:00 [code = COVID-19 VACCINE (1)] Instructions [facility] Encounters Start End Encounter Admission Attending Care Care Encounter Source Date/Time Date/Time Type Type Clinicians Facility Department ID 2020-07-07 2020-07-07 Telephone SUJEY Grant [id number] 00:00:00 00:00:00 Local Funeral [id number] Surgical 4.2.7.2.686 Specialti [phone] es [address] [place] 2020-05-26 2020-05-26 Telephone SUJEY Grant 1.2.840.114 [id number] 00:00:00 00:00:00 Local Funeral [id number] Surgical 4.2.7.2.686 Specialti [id number] es [address] [place] 2020-03-20 2020-03-20 Telephone SUJEY Horn [id number] 00:00:00 00:00:00 Social & Loyal 350.1.13.10 Surgical 4.2.7.2.686 Specialti [phone] es [address] [place] 2020-03-10 2020-03-10 [facility] [id number] V illage 00:00:00 00:00:00 Leo Sanchez y STEAM DRIER TENDER: [id number] Medical - Pract ic Nithya Arteaga, [email or web address] [address] [id number] , Ph. 2020-02-18 2020-02-18 Orders Doctor NIRAV [id number] 00:00:00 00:00:00 Only Unassigned, KENNETH 350.1.13.10 Eleva [facility] 4.2.7.2.686 [id number] 009 2020-01-28 2020-01-28 Telephone SUJEY Horn [id number] 00:00:00 00:00:00 Social & Loyal 350.1.13.10 Surgical 4.2.7.2.686 Specialti [id number] es [address] [place] 2019-12-21 2019-12-21 Telephone Josep [facility] 1.2.840.114 [id number] 00:00:00 00:00:00 Robbieval Kendrick 350.1.13.10 [place] 4.2.7.2.686 Professio [phone] [address] 2019-12-07 2019-12-07 Nurse Nurse, [facility] 1.2.840.114 [id number] 10:38:50 11:10:03 Visit Surgery Gu Mireille 350.1.13.10 [place] 4.2.7.2.686 Professio [phone] [address] 2019-11-20 2019-11-20 Nurse Nurse, [facility] 1.2.840.114 [id number] 13:06:00 13:52:14 Visit Surgery Roberto Kendrick 350.1.13.10 [place] 4.2.7.2.686 Professio [phone] [address] 2019-11-07 2019-11-07 Nurse Nurse, [facility] 1.2.840.114 [id number] 14:34:31 14:49:31 Visit Surgery Roberto Kendrick 350.1.13.10 [place] 4.2.7.2.686 Professio [phone] [address] 2019-09-24 2019-09-24 Office Josep [facility] 1.2.840.114 [id number] 15:17:44 17:03:35 Visit Robbie Kendrick 350.1.13.10 [place] 4.2.7.2.686 Professio [phone] [address] 2019-09-17 2019-09-17 Refill Juanita [facility] [id number] 00:00:00 00:00:00 [facility] 350.1.13.10 Surgical 4.2.7.2.686 Specialti [id number] es 198 [place] 2019-04-24 2019-04-24 [facility] [id number] [address] [place] 00:00:00 00:00:00 JULIET Martinez Method i st Results Test Description Test Time Test Results Result Source Comments Comments ECG 12 lead 2019-12-08 Interface, External Ris [facility] 0 In - 01/04/2020 7:12 AM [facility] - 07:12:02 CDTVentricular Rate 113 M edical BPMAtrial Rate 113 BPMQRS Center Duration 118 msQ-T Interval 380 msQTC Calculation(Lety) 521 msP [place] 98 degreesR [place] 5 degreesT [place] 165 degreesSinus tachycardiaIncomplete left bundle branch blockST & T wave abnormality, consider inferolateral ischemiaProlonged QTAbnormal ECGWhen compared with ECG of 28-DEC-2019 22:15,TN interval has decreasedIncomplete left bundle branch block is now PresentCriteria for Anterior infarct are no longer PresentConfirmed by MD SAIMA, DONTA Hyde ([id number]) on 01/04/2020 7:11:58 AM Blood Culture - Routine (Left Venipuncture) 2020-01-03 10:00 :00 Test Item Value Reference Range Interpretation Comme nts Result (test code = 6463-4) No growth in 5 days [facility] [id number] 10:00:00 Test Item Value Reference Range Interpretation Comments CULTURE (BEAKER) (test No growth in 5 days code = 1095) BLOOD [id number] 10:00:00 Test Item Value Reference Range Interpretation Comments CULTURE (BEAKER) (test No growth in 5 days code = 1095) CT, CTA, [id number] 09:40:00Unlisted Reason for Exam - Click Yes and Enter Reason Below->YesUnlisted Reason for Exam->s/p TAVR and SAVR with gradientE[facility] : 1935 Sex: MAddendum BeginsREPORT STATUS:A I agree with the nonvascular findi ngs detailed by Dr. East. Additional nonvascular findings include: Diffuse bronchial wall thickening with trace mucus in the trachea, suggestive of bronchitis. Patchy groundglass opacities in both lungs, suggestive of pneumonia. Signed: Gualberto Levy MDReport Verified Date/Time: 01/03/2020 09:40:[address] angiography the TAVR, 02-Jan-20 INDICATION: This is a 84 year old male with diagnosis of increasing gradient, post TAVR and SAVR. TECHNIQUE: Spiral acquisition before and during intravenous contrast administration using a Tejas multidetector CT scanner. CT scanner. Images were obtained before and during the dynamic passage of intravenous contrast material. Multi-planar 3-D volume-rendering reconstruction was performed using an independent workstation interactively by the interpreting physician as well as the 3-D specialist for optimal visualisation of the thoracic aorta and its proximal branches. Please refer to the contrast sheet scanned in the [employer] system for the amount and route of contrast given. This exam was performed according to our departmental dose-optimisation programme, which includes automated exposure control, adjustment of the mA and/or kV according to patient size and/or use of iterative reconstruction technique. Dose modulation, iterative reconstruction, and/or weight based adjustment of the mA/kV was utilized to reducethe radiation dose to as low as reasonably achievable. Multiphasic reconstruction was performed. FINDINGS: VASCULAR: No pericardial effusion is identified. The central pulmonary artery is normal in calibre. There is no evidence of central pulmonary artery embolism identified. The cardiac chambers demonstrate normal atrioventricular and ventriculoarterial concordance, and systemic and pulmonary venous return. The left ventricle is normal in size. Left atrial enlargement is identified. No mitral annular calcification is seen. Coronary artery origins are normal. Conclusion is identified in the left main coronary artery. Remainder of the LAD, LCx, and the RCA appears to be patent though some motion artefact is identified. Patient is post TAVR, [place] variant. It appears to be well positioned. It isrelatively well seen and 60% reconstruction. In the cine imaging, the TAVR appears has reasonable opening, however, hypodensity is seen, in the right coronary cusps and noncoronary cusp level, suggesting the presence of nonocclusive thrombus. Please see snapshot for details. The thoracic aorta is normal in course, contour, and calibre. Scattered calcific and noncalcific atherosclerosis is seen predominantly in the descending thoracic aorta, overall mild in nature. There is no evidence of acute aortic pathology, specifically, there is no dissection, intramural hematoma, or contained rupture. The arch vessel branching pattern is normal and the visualised portion of the arch vessels are widely patent. Quantitaive dimensions of the aorta are as follows: 3.5 cm at the sinuses of Valsalva (the sino-tubular junction is preserved); 2.9 cm at the proximal ascending thoracic aorta; 3.5 cm at the mid ascending aorta; 3.3 cm at the distal ascending aorta; 2.8 cm at the mid transverse arch; 2.9 cm at the proximal descending aorta; 3.1 cm at the mid descending aorta; 2..6 cm at the diaphragmatic hiatus. NON-VASCULAR:- The thyroid gland is unremarkable. The chest wall mediastinum has no acute abnormalities identified. A number of small lymph nodes are seen, consider nonspecific in nature. Pleural calcification is identified, for example in the anterior aspect of the left upper lobe, adjacent to the base of the left and right lower, also along the left and right diaphragmatic surfaces. Mild bibasal pleural effusions identified, left greater than right. Associated atelectatic changes/consolidation is present. Mild nonspecific patchy groundglass opacities are seen especially in the left upper lobe, for example image 58 of uncertain significance. Scattered groundglass opacities also identified in the lower lung pedersen. An addendum will be dictated regarding the pulmonary findings, if needed. Limited images of the upper abdomen reveals no gross abnormality. No acute bony pathology is seen. Some degenerative changes is noted. Surgical hardware is identified in the anterior aspect of the upper vertebral bodies. CONCLUSIONS: 1. Unremarkable thoracic aorta only mild atherosclerosis is seen. 2. Focal coronary artery indication is seen in the left main coronary artery, otherwise, the LAD, LCx and the RCA are seen to be widely patent. 3. Patient is post TAVR, [place] variant, appears to be well positioned. Most importantly, at the level of the right coronary cusp and noncoronary cusps, hypodensity is identified likely represent thrombus. This is quite well seen by multiplanar reformation, snapshot,at series A 25 at PACS. 4. Pulmonary findings as described above. Mild bibasal pleural effusions i dentified, left greater than right. Pleural calcification identified suggesting prior asbestos exposure. An addendum dictated thereafter, regarding the pulmonary findings, if needed. 5. Other findings as described above. 6. An addendum will be dictated regarding the non-vascular findings by the Tube Former Operator Radiologist. Major vascular findings were discussed with Dr. Valladares at the time of dictation. Signed: Edwardo East Verified Date/Time: 01/02/2020 16:43:17 Reading Location: [facility] [id number] CT Reading Room Comprehensive metabolic [id number] 07:24:00 Test Item Value Reference Range Interpretation Comments Protein, Total (test 5.7 See_Comment L [Autom ated code = 2885-2) message] The system which generated this result transmit dena reference range : 6.0 - 8.3 gm/dL . The reference range was not u sed to interpret th is result as normal/abnormal . Albumin (test code = 3.3 g/dL 3.5-5 L 64626-9) Alkaline Phosphatase 49 U/L 40-150 (test code = 6768-6) Total Bilirubin (test 1.1 mg/dL 0.2-1.2 code = 1975-2) Sodium (test code = 139 meq/L 652-749 8120-2) Potassium (test code 3.5 meq/L 3.5-5.1 = 2823-3) Chloride (test code = 107 meq/L 98-107 2075-0) CO2 (test code = 26 meq/L -29 2027-9) BUN (test code = 15 mg/dL 7-21 3094-0) Creatinine (test code 0.79 mg/dL 0.57-1.25 = 2160-0) Glucose (test code = 89 mg/dL 70-105 2345-7) Calcium (test code = 8.4 mg/dL 8.4-10.2 38605-7) AST (test code = 17 U/L 5-34 1920-8) ALT (test code = 9 U/L 6-55 1742-6) EGFR (test code = 93 mL/min/1.73 [place] [address]-5) NOT ACCURATE CREATININE CLEARANCE IN PREDICTING GLOMERULAR FILTRATION RATE . ESTIMATED GFR I S NOT APPLICABLE FOR DIALYSIS PATIEN ISAMAR. JETT (test code = JETT) Assistant Attorney General ID - QUINCY [place] [facility] Interpretation Abnormal (test code = 56919-8) [facility] 07:24:00 Test Item Value Reference Range Interpretation Comments Magnesium (test code = 1.8 mg/dL 1.6-2.6 76072-9) JETT (test code = JETT) Assistant Attorney General ID - QUINCY [place] [facility] Interpretation (test Normal code = 25088-7) [facility] 07:24:00 Test Item Value Reference Range Interpretation Comments Phosphorus (test code = 2.7 mg/dL 2.3-4.7 2777-1) JETT (test code = JETT) Assistant Attorney General ID - QUINCY [place] [facility] Interpretation (test Normal code = 84208-2) [facility]COMPRE[facility] METABOLIC [id number] 07:24:00 Test Item Value Reference Range Interpretation Comments TOTAL PROTEIN 5.7 gm/dL 6.0-8.3 L (BEAKER) (test code = 770) ALBUMIN (BEAKER) 3.3 g/dL 3.5-5.0 L (test code = 1145) ALKALINE PHOSPHATASE 49 U/L 40-150 (BEAKER) (test code = 346) BILIRUBIN TOTAL 1.1 mg/dL 0.2-1.2 (BEAKER) (test code = 377) SODIUM (BEAKER) (test 139 meq/L 136-145 code = 381) POTASSIUM (BEAKER) 3.5 meq/L 3.5-5.1 (test code = 379) CHLORIDE (BEAKER) 107 meq/L 98-107 (test code = 382) CO2 (BEAKER) (test 26 meq/L 22-29 code = 355) BLOOD UREA NITROGEN 15 mg/dL 7-21 (BEAKER) (test code = 354) CREATININE (BEAKER) 0.79 mg/dL 0.57-1.25 (test code = 358) GLUCOSE RANDOM 89 mg/dL 70-105 (BEAKER) (test code = 652) CALCIUM (BEAKER) 8.4 mg/dL 8.4-10.2 (test code = 697) AST (SGOT) (BEAKER) 17 U/L 5-34 (test code = 353) ALT (SGPT) (BEAKER) 9 U/L 6-55 (test code = 347) EGFR (BEAKER) (test 93 mL/min/1.73 ESTIMA DENA GFR IS code = 1092) sq m NOT ACCURATE CREATININE CLEARANCE IN PREDICTING GLOMERULAR FILTRATION RATE . ESTIMATED GFR I S NOT APPLICABLE FOR DIALYSIS PATIEN TS. Assistant Attorney General ID - QUINCY [id number] 07:24:00 Test Item Value Reference Range Interpretation Comments MAGNESIUM (BEAKER) (test code = 1.8 mg/dL 1.6-2.6 627) Assistant Attorney General ID - QUINCY [id number] 07:24:00 Test Item Value Reference Range Interpretation Comments PHOSPHORUS (BEAKER) (test code = 2.7 mg/dL 2.3-4.7 604) Assistant Attorney General ID - QUINCY FDaily Prothrombin time/INR while on [id number] 07:00:00 Test Item Value Reference Interpretation Comments Range Protime (test code = 14.0 See_Comment [Autom ated 1962-2) message] The system which generated this result transmitted reference range : 11.9 - 14.2 seconds. The reference range was not used to interpret this result as normal/abnormal . INR (test code = 1.11 See_Comment [Automated 3591-6) message] The system which generated this result transmitted reference range : <=5.90. The reference range was not used to interpret this result as normal/abnormal . JETT (test code = Effective 08/02/2018: JETT) PT Reference Range ChangeNew: 11.9-14.2 Previous: 11.7-14.7 RECOMMENDED COUMADIN/WARFARIN INR THERAPY RANGESSTANDARD DOSE: 2.0-3.0 Includes: PROPHYLAXIS for venous thrombosis, systemic embolization; TREATMENT for venous thrombosis and/or pulmonary embolus.HIGH RISK: Target INR is 2.5-3.5 for patients wiht mechanical heart valves. While on warfarin. Lab Interpretation Normal (test code = 89007-3) [facility]OM[id number] 07:00:00 Test Item Value Reference Range Interpretation Comments PROTIME (BEAKER) (test code = 14.0 seconds 11.9-14.2 759) INR (DAVE) (test code = 370) 1.11 <=5.90 Effective 08/02/2018: PT Reference Range ChangeNew: 11.9-14.2 Previous: 11.7- 14.7RECOMMENDED COUMADIN/WARFARIN INR THERAPY RANGESSTANDARD DOSE: 2.0-3.0 Includes: PROPHYLAXIS for venous thrombosis, systemic embolization; TREATMENT for venous thrombosis and/or pulmonary embolus.HIGH RISK: Target INR is2.5-3.5 for patients wiht mechanical heart valves.While on warfarin.CBC with platelet count + automated [id number] 06:56:00 Test Item Value Reference Range Interpretation Comments WBC (test code = 6690-2) 7.5 See_Comment [A utomated message] The system HCDC generated this result transmitted ref erence range: 3.5 - 10 .5 K/L. The refe rence range was not u sed to interpret this result as normal/abnor mal. RBC (test code = 789-8) 4.08 See_Comment L [Au tomated message] The system HCDC generated this result transmitted ref erence range: 4.63 - 6 .08 M/L. The refe rence range was not u sed to interpret this result as normal/abnor mal. MCHC (test code = 786-4) 32.7 See_Comment L [A utomated message] The system HCDC generated this result transmitted ref erence range: 32.3 - 3 6.5 GM/DL. The refe rence range was not u sed to interpret this result as normal/abnor mal. Hematocrit (test code = 37.9 % 40.1-51 L 4544-3) MCV (test code = 787-2) 92.9 fL 79-92.2 H MCH (test code = 785-6) 30.4 pg 25.7-32.2 RDW (test code = 788-0) 12.2 % 11.6-14.4 Platelets (test code = 146 See_Comment L [Aut omated message] 7-3) The system HCDC generated this result transmitted ref erence range: 150 - 45 0 K/CU MM. The referen ce range was not u sed to interpret this result as normal/abnor mal. MPV (test code = 11.5 fL 9.4-12.4 71749-5) nRBC (test code = 413) 0 See_Comment [Aut omated message] The system HCDC generated this result transmitted ref erence range: 0 - 0 /1 00 WBC. The refere nce range was not u sed to interpret this result as normal/abnor mal. % Neutros (test code = 54 % 429) % Lymphs (test code = 28 % 430) % Monos (test code = 10 % 431) % Eos (test code = 432) 7 % % Baso (test code = 437) 1 % # Neutros (test code = 4.02 See_Comment [Aut omated message] 670) The system HCDC generated this result transmitted ref erence range: 1.78 - 5 .38 K/L. The refe rence range was not u sed to interpret this result as normal/abnor mal. # Lymphs (test code = 2.07 See_Comment [Auto mated message] 414) The system HCDC generated this result transmitted ref erence range: 1.32 - 3 .57 K/L. The refe rence range was not u sed to interpret this result as normal/abnor mal. # Monos (test code = 0.78 See_Comment [Autom ated message] 415) The system HCDC generated this result transmitted ref erence range: 0.30 - 0 .82 K/L. The refe rence range was not u sed to interpret this result as normal/abnor mal. # Eos (test code = 416) 0.55 See_Comment H [Au tomated message] The system HCDC generated this result transmitted ref erence range: 0.04 - 0 .54 K/L. The refe rence range was not u sed to interpret this result as normal/abnor mal. # Baso (test code = 417) 0.05 See_Comment [A utomated message] The system HCDC generated this result transmitted ref erence range: 0.01 - 0 .08 K/L. The refe rence range was not u sed to interpret this result as normal/abnor mal. Immature 1 % 0-1 Granulocytes-Relative (test code = 2801) Lab Interpretation (test Abnormal code = 74016-5) [facility] W/PLT COUNT & AUTO [id number] 06:56:00 Test Item Value Reference Range Interpretation Comments WHITE BLOOD CELL COUNT (BEAKER) 7.5 K/ L 3.5-10.5 (test code = 775) RED BLOOD CELL COUNT (BEAKER) 4.08 M/ L 4.63-6.08 L (test code = 761) HEMOGLOBIN (BEAKER) (test code = 12.4 GM/DL 13.7-17.5 L 410) HEMATOCRIT (BEAKER) (test code = 37.9 % 40.1-51.0 L 411) MEAN CORPUSCULAR VOLUME (BEAKER) 92.9 fL 79.0-92.2 H (test code = 753) MEAN CORPUSCULAR HEMOGLOBIN 30.4 pg 25.7-32.2 (BEAKER) (test code = 751) MEAN CORPUSCULAR HEMOGLOBIN CONC 32.7 GM/DL 32.3-36.5 (BEAKER) (test code = 752) RED CELL DISTRIBUTION WIDTH 12.2 % 11.6-14.4 (BEAKER) (test code = 412) PLATELET COUNT (BEAKER) (test 146 K/CU MM 150-450 L code = 756) MEAN PLATELET VOLUME (BEAKER) 11.5 fL 9.4-12.4 (test code = 754) NUCLEATED RED BLOOD CELLS 0 /100 WBC 0-0 (BEAKER) (test code = 413) NEUTROPHILS RELATIVE PERCENT 54 % (BEAKER) (test code = 429) LYMPHOCYTES RELATIVE PERCENT 28 % (BEAKER) (test code = 430) MONOCYTES RELATIVE PERCENT 10 % (BEAKER) (test code = 431) EOSINOPHILS RELATIVE PERCENT 7 % (BEAKER) (test code = 432) BASOPHILS RELATIVE PERCENT 1 % (BEAKER) (test code = 437) NEUTROPHILS ABSOLUTE COUNT 4.02 K/ L 1.78-5.38 (BEAKER) (test code = 670) LYMPHOCYTES ABSOLUTE COUNT 2.07 K/ L 1.32-3.57 (BEAKER) (test code = 414) MONOCYTES ABSOLUTE COUNT (BEAKER) 0.78 K/ L 0.30-0.82 (test code = 415) EOSINOPHILS ABSOLUTE COUNT 0.55 K/ L 0.04-0.54 H (BEAKER) (test code = 416) BASOPHILS ABSOLUTE COUNT (BEAKER) 0.05 K/ L 0.01-0.08 (test code = 417) IMMATURE GRANULOCYTES-RELATIVE 1 % 0-1 PERCENT (BEAKER) (test code = 2801) PROTHROMBIN [id number] 18:01:00 Test Item Value Reference Range Interpretation Comments PROTIME (BEAKER) (test code = 14.3 seconds 11.9-14.2 H 759) INR (BEAKER) (test code = 370) 1.14 <=5.90 Effective 08/02/2018: PT Reference Range ChangeNew: 11.9-14.2 Previous: 11.7- 14.7RECOMMENDED COUMADIN/WARFARIN INR THERAPY RANGESSTANDARD DOSE: 2.0-3.0 Includes: PROPHYLAXIS for venous thrombosis, systemic embolization; TREATMENT for venous thrombosis and/or pulmonary embolus.HIGH RISK: Target INR is2.5-3.5 for patients wiht mechanical heart valves.CTA [id number] 16:43:00Interface, External Ris In - 01/03/2020 9:42 AM CDTAddendum BeginsREPORT STATUS:A I agree with the nonvascular findings detailed by Dr. East. Additional nonvascular findings include: Diffuse bronchial wall thickening with trace mucus in the trachea, suggestive of bronchitis. Patchy groundglass opacities in both lungs, suggestive of pneumonia. Signed: Gualberto Levy MDReportVerified Date/Time: 01/03/2020 09:40:[address] angiography the TAVR, 02-Jan-20 INDICATION: This is a 84 year old male with diagnosis of increasing gradient, post TAVR and SAVR. TECHNIQUE: Spiral acquisition before and during intravenous contrast administra tion using a Tejas multidetector CT scanner. CT scanner. Images were obtained before and during the dynamic passage of intravenous contrast material. Multi- planar 3-D volume-rendering reconstructionwas performed using an independent workstation interactively by the interpreting physician as well as the 3-D specialist for optimal visualisation of the thoracic aorta and its proximal branches. Please refer to the contrast sheet scanned in the [employer] system for the amount and route of contrast given. This exam was performed according to our departmental dose-optimisation programme, which includes automated exposure control, adjustment of the mA and/or kV according to patient size and/or use of iterative reconstruction technique. Dose modulation, iterative reconstruction, and/or weight based adjustment of the mA/kV was utilized to reduce the radiation dose to as low as reasonably achievable. Multiphasic reconstruction was performed. FINDINGS: VASCULAR: No pericardial effusion is identified. The ce ntral pulmonary artery is normal in calibre. There is no evidence of central pulmonary artery embolism identified. The cardiac chambers demonstrate normal atrioventricular and ventriculoarterial concordance, and systemic and pulmonary venous return. The left ventricle is normal in size. Left atrial enlargement is identified. No mitral annular calcification is seen. Coronary artery origins are normal.Conclusion is identified in the left main coronary artery. Remainder of the LAD, LCx, and the RCA appears to be patent though some motion artefact is identified. Patient is post TAVR, [place] variant. It appears to be well positioned. It is relatively well seen and 60% reconstruction. In the cine imagi ng, the TAVR appears has reasonable opening, however, hypodensity is seen, in the right coronary cusps and noncoronary cusp level, suggesting the presence of nonocclusive thrombus. Please see snapshot for details. The thoracic aorta is normal in course, contour, and calibre. Scattered calcific and noncalcific atherosclerosis is seen predominantly in the descending thoracic aorta, overall mild in nature. There is no evidence of acute aortic pathology, specifically, there is no dissection, intramural hematoma, or contained rupture. The arch vessel branching pattern is normal and the visualised portion of the arch vessels are widely patent. Quantitaive dimensions of the aorta are as follows: 3.5 cmat the sinuses of Valsalva (the sino-tubular junction is preserved); 2.9 cm at the proximal ascending thoracic aorta; 3.5 cm at the mid ascending aorta; 3.3 cm at the distal ascending aorta; 2.8 cm at the mid transverse arch; 2.9 cm at the proximal descending aorta; 3.1 cm at the mid descending aorta; 2..6 cm at the diaphragmatic hiatus. NON-VASCULAR:- The thyroid gland is unremarkable. The chest wall mediastinum has no acute abnormalities identified. A number of small lymph nodes are seen, consider nonspecific in nature. Pleural calcification is identified, for example in the anterior aspect of the left upper lobe, adjacent to the base of the left and right lower, also along the left and right d iaphragmatic surfaces. Mild bibasal pleural effusions identified, left greater than right. Associated atelectatic changes/consolidation is present. Mild nonspecific patchy groundglass opacities are seen especially in the left upper lobe, for example image 58 of uncertain significance. Scattered groundglass opacities also identified in the lower lung pedersen. An addendum will be dictated regarding the pulmonary findings, if needed. Limited images of the upper abdomen reveals no gross abnormality. No acute bony pathology is seen. Some degenerative changes is noted. Surgical hardware is identified in the anterior aspect of the upper vertebral bodies. CONCLUSIONS: 1. Unremarkable thoracic aorta only mild atherosclerosis is seen. 2. Focal coronary artery indication is seen in the left main coronary artery, otherwise, the LAD, LCx and the RCA are seen to be widely patent. 3. Patient is post TAVR, [place] variant, appears to be well positioned. Most importantly, at the level of the right coronary cusp and noncoronary cusps, hypodensity is identified likely represent thrombus. This is quite well seen by multiplanar reformation, snapshot, at series A 25 at PACS. 4. Pulmonary findings as describedabove. Mild bibasal pleural effusions identified, left greater than right. Pleural calcification identified suggesting prior asbestos exposure. An addendum dictated thereafter, regarding the pulmonary findings, if needed. 5. Other findings as described above. 6. An addendum will be dictated regardingthe non-vascular findings by the Tube Former Operator Radiologist. Major vascular findings were discussed withDr. Valladares at the time of dictation. Signed: Edwardo [place] MDReport Verified Date/Time: 2019 16:43:17 Reading Location: [place] [address] [address] [facility] 06:38:00 Test Item Value Reference Range Interpretation Comments MAGNESIUM (BEAKER) (test code = 1.8 mg/dL 1.6-2.6 627) Assistant Attorney General ID - EDASICOMPREHENSIVE METABOLIC [id number] 06:38:00 Test Item Value Reference Range Interpretation Comments TOTAL PROTEIN 5.7 gm/dL 6.0-8.3 L (BEAKER) (test code = 770) ALBUMIN (BEAKER) 3.2 g/dL 3.5-5.0 L (test code = 1145) ALKALINE PHOSPHATASE 55 U/L 40-150 (BEAKER) (test code = 346) BILIRUBIN TOTAL 1.2 mg/dL 0.2-1.2 (BEAKER) (test code = 377) SODIUM (BEAKER) (test 142 meq/L 136-145 code = 381) POTASSIUM (BEAKER) 3.7 meq/L 3.5-5.1 (test code = 379) CHLORIDE (BEAKER) 109 meq/L 98-107 H (test code = 382) CO2 (BEAKER) (test 25 meq/L 22-29 code = 355) BLOOD UREA NITROGEN 16 mg/dL 7-21 (BEAKER) (test code = 354) CREATININE (BEAKER) 0.79 mg/dL 0.57-1.25 (test code = 358) GLUCOSE RANDOM 87 mg/dL 70-105 (BEAKER) (test code = 652) CALCIUM (BEAKER) 8.5 mg/dL 8.4-10.2 (test code = 697) AST (SGOT) (BEAKER) 18 U/L 5-34 (test code = 353) ALT (SGPT) (BEAKER) 12 U/L 6-55 (test code = 347) EGFR (BEAKER) (test 93 mL/min/1.73 ESTIMA DNEA GFR IS code = 1092) sq m NOT ACCURATE CREATININE CLEARANCE IN PREDICTING GLOMERULAR FILTRATION RATE . ESTIMATED GFR I S NOT APPLICABLE FOR DIALYSIS PATIEN TS. Assistant Attorney General ID - [id number] 06:38:00 Test Item Value Reference Range Interpretation Comments PHOSPHORUS (BEAKER) (test code = 2.7 mg/dL 2.3-4.7 604) Assistant Attorney General ID - EDASICBC W/PLT COUNT & AUTO [id number] 06:03:00 Test Item Value Reference Range Interpretation Comments WHITE BLOOD CELL COUNT (BEAKER) 7.9 K/ L 3.5-10.5 (test code = 775) RED BLOOD CELL COUNT (BEAKER) 4.23 M/ L 4.63-6.08 L (test code = 761) HEMOGLOBIN (BEAKER) (test code = 12.5 GM/DL 13.7-17.5 L 410) HEMATOCRIT (BEAKER) (test code = 39.6 % 40.1-51.0 L 411) MEAN CORPUSCULAR VOLUME (BEAKER) 93.6 fL 79.0-92.2 H (test code = 753) MEAN CORPUSCULAR HEMOGLOBIN 29.6 pg 25.7-32.2 (BEAKER) (test code = 751) MEAN CORPUSCULAR HEMOGLOBIN CONC 31.6 GM/DL 32.3-36.5 L (BEAKER) (test code = 752) RED CELL DISTRIBUTION WIDTH 12.3 % 11.6-14.4 (BEAKER) (test code = 412) PLATELET COUNT (BEAKER) (test 154 K/CU MM 150-450 code = 756) MEAN PLATELET VOLUME (BEAKER) 11.1 fL 9.4-12.4 (test code = 754) NUCLEATED RED BLOOD CELLS 0 /100 WBC 0-0 (BEAKER) (test code = 413) NEUTROPHILS RELATIVE PERCENT 54 % (BEAKER) (test code = 429) LYMPHOCYTES RELATIVE PERCENT 28 % (BEAKER) (test code = 430) MONOCYTES RELATIVE PERCENT 9 % (BEAKER) (test code = 431) EOSINOPHILS RELATIVE PERCENT 8 % (BEAKER) (test code = 432) BASOPHILS RELATIVE PERCENT 1 % (BEAKER) (test code = 437) NEUTROPHILS ABSOLUTE COUNT 4.31 K/ L 1.78-5.38 (BEAKER) (test code = 670) LYMPHOCYTES ABSOLUTE COUNT 2.19 K/ L 1.32-3.57 (BEAKER) (test code = 414) MONOCYTES ABSOLUTE COUNT (BEAKER) 0.72 K/ L 0.30-0.82 (test code = 415) EOSINOPHILS ABSOLUTE COUNT 0.62 K/ L 0.04-0.54 H (BEAKER) (test code = 416) BASOPHILS ABSOLUTE COUNT (BEAKER) 0.04 K/ L 0.01-0.08 (test code = 417) IMMATURE GRANULOCYTES-RELATIVE 1 % 0-1 PERCENT (BEAKER) (test code = 2801) MRSA [id number] 15:50:00 Test Item Value Reference Range Interpretation Comments Result (test code = 6463-4) No MRSA isolated [facility] [id number] 15:50:00 Test Item Value Reference Range Interpretation Comments CULTURE (BEAKER) (test code No MRSA isolated = 1095) FL, ESOPH, SWALLOW FUNCTION, WITH CINE OR [id number] 15:38:00D/c NGT prior to the study and then attemptReason for exam:->dysphagea [facility] 1935 Sex: MFINAL REPORT Modified barium swallow exam with speech pathology service CLINICAL HISTORY: dysphagia IMPRESSION: Please see the speech pathology service report for details. Barium contrast of multiple consistencies is given to the patient to swallow. Fluoroscopic observation is performed during swallowing. Fluoro time: 120 minutes Number of images: 1 Signed: Scott Wilkinson Verified Date/Time: 01/01/2020 15:38:45 Reading Location: [address] Consult Reading Room [place] esoph swallow funct with cine [id number] 15:38:00 Interface, External Ris In - 01/01/2020 3:40 PM CDTFINAL REPORT Modified barium swallow exam with speech pathology service CLINICAL HISTORY: dysphagia IMPRESSION: Please see the speech pathology service report for details. Barium contrast of multiple consistencies is given to the patient to swallow. Fluoroscopic observation is performed during swallowing. Fluoro time: 120 minutes Number of images: 1 Signed: Scott Wilkinson Verified Date/Time: 01/01/2020 15:38:45 Reading Location: [address] Ortho Consult Reading Room Electronically signed by: SCOTT WILKINSON M.D. 01/01/2020 03:38 [facility]00 Test Item Value Reference Range Interpretation Comments MAGNESIUM (BEAKER) (test code = 1.9 mg/dL 1.6-2.6 627) Assistant Attorney General ID - edasiCOMPREHENSIVE METABOLIC [id number] 06:21:00 Test Item Value Reference Range Interpretation Comments TOTAL PROTEIN 5.7 gm/dL 6.0-8.3 L (BEAKER) (test code = 770) ALBUMIN (BEAKER) 3.1 g/dL 3.5-5.0 L (test code = 1145) ALKALINE PHOSPHATASE 86 U/L 40-150 (BEAKER) (test code = 346) BILIRUBIN TOTAL 1.2 mg/dL 0.2-1.2 (BEAKER) (test code = 377) SODIUM (BEAKER) (test 142 meq/L 136-145 code = 381) POTASSIUM (BEAKER) 3.4 meq/L 3.5-5.1 L (test code = 379) CHLORIDE (BEAKER) 109 meq/L 98-107 H (test code = 382) CO2 (BEAKER) (test 27 meq/L 22-29 code = 355) BLOOD UREA NITROGEN 21 mg/dL 7-21 (BEAKER) (test code = 354) CREATININE (BEAKER) 0.81 mg/dL 0.57-1.25 (test code = 358) GLUCOSE RANDOM 100 mg/dL 70-105 (BEAKER) (test code = 652) CALCIUM (BEAKER) 8.5 mg/dL 8.4-10.2 (test code = 697) AST (SGOT) (BEAKER) 15 U/L 5-34 (test code = 353) ALT (SGPT) (BEAKER) 11 U/L 6-55 (test code = 347) EGFR (BEAKER) (test 90 mL/min/1.73 ESTIMA DENA GFR IS code = 1092) sq m NOT ACCURATE CREATININE CLEARANCE IN PREDICTING GLOMERULAR FILTRATION RATE . ESTIMATED GFR I S NOT APPLICABLE FOR DIALYSIS PATIEN TS. Assistant Attorney General ID - [id number] 06:21:00 Test Item Value Reference Range Interpretation Comments PHOSPHORUS (BEAKER) (test code = 1.8 mg/dL 2.3-4.7 L 604) Assistant Attorney General ID - edasiCBC W/PLT COUNT & AUTO [id number] 05:52:00 Test Item Value Reference Range Interpretation Comments WHITE BLOOD CELL COUNT (BEAKER) 10.7 K/ L 3.5-10.5 H (test code = 775) RED BLOOD CELL COUNT (BEAKER) 3.94 M/ L 4.63-6.08 L (test code = 761) HEMOGLOBIN (BEAKER) (test code = 11.7 GM/DL 13.7-17.5 L 410) HEMATOCRIT (BEAKER) (test code = 36.9 % 40.1-51.0 L 411) MEAN CORPUSCULAR VOLUME (BEAKER) 93.7 fL 79.0-92.2 H (test code = 753) MEAN CORPUSCULAR HEMOGLOBIN 29.7 pg 25.7-32.2 (BEAKER) (test code = 751) MEAN CORPUSCULAR HEMOGLOBIN CONC 31.7 GM/DL 32.3-36.5 L (BEAKER) (test code = 752) RED CELL DISTRIBUTION WIDTH 12.4 % 11.6-14.4 (BEAKER) (test code = 412) PLATELET COUNT (BEAKER) (test 132 K/CU MM 150-450 L code = 756) MEAN PLATELET VOLUME (BEAKER) 10.9 fL 9.4-12.4 (test code = 754) NUCLEATED RED BLOOD CELLS 0 /100 WBC 0-0 (BEAKER) (test code = 413) NEUTROPHILS RELATIVE PERCENT 69 % (BEAKER) (test code = 429) LYMPHOCYTES RELATIVE PERCENT 17 % (BEAKER) (test code = 430) MONOCYTES RELATIVE PERCENT 7 % (BEAKER) (test code = 431) EOSINOPHILS RELATIVE PERCENT 6 % (BEAKER) (test code = 432) BASOPHILS RELATIVE PERCENT 0 % (BEAKER) (test code = 437) NEUTROPHILS ABSOLUTE COUNT 7.42 K/ L 1.78-5.38 H (BEAKER) (test code = 670) LYMPHOCYTES ABSOLUTE COUNT 1.80 K/ L 1.32-3.57 (BEAKER) (test code = 414) MONOCYTES ABSOLUTE COUNT (BEAKER) 0.77 K/ L 0.30-0.82 (test code = 415) EOSINOPHILS ABSOLUTE COUNT 0.61 K/ L 0.04-0.54 H (BEAKER) (test code = 416) BASOPHILS ABSOLUTE COUNT ([facility]) 0.03 K/ L 0.01-0.08 (test code = 417) IMMATURE GRANULOCYTES-RELATIVE 1 % 0-1 PERCENT (AKER) (test code = 2801) POC-Glucose [id number] 19:08:00 Test Item Value Reference Range Interpretation Comments POC-Glucose Meter (test 73 mg/dL 70-110 : TE STED AT [facility] code = 1538) [address] [facility], 770 30: Assistant Attorney General/Techni cory ID = [id number] for JEFF MCCORMICK HOFF Lab Interpretation (test Normal code = 66139-9) [facility] [id number] 19:08:00 Test Item Value Reference Range Interpretation Comments POC-GLUCOSE METER 73 mg/dL 70-110 : [facility]) (test code = [facility] Skye [facility], 1538) [address]: Assistant Attorney General/Techni cory ID = [id number] for ALEXANDRO EPSTEIN POCT-GLUCOSE [id number] 14:49:00 Test Item Value Reference Range Interpretation Comments POC-GLUCOSE METER 74 mg/dL 70-110 : [facility] ([facility]) (test code = [facility], 1538) [address]: Assistant Attorney General/Techni cory ID = [id number] for BRETT-STAFFOR D GENGISSELLE Urine [id number] 12:59:00 Test Item Value Reference Range Interpretation Comments Result (test code = See comment 6463-4) JETT (test code = 40-49,000 col/mL skin JETT) regina>100,000 col/mL enteric organisms of >2 types. No further workup performed. Multiple organisms suggestive of colonization or contamination. Repeat collection recommended. [facility] + Gram [id number] 12:26:00 Test Item Value Reference Range Interpretation Comments Result (test code = 1+ Normal respiratory 6463-4) regina present Gram Stain Result <1+ gram positive cocci (test code = 1123) in pairs and clusters [facility]MR[facility] [id number] 12:26:00 Test Item Value Reference Range Interpretation Comments CULTURE (BEAKER) (test code No MRSA isolated = 1095) SPUTUM CULTURE + GRAM [id number] 12:26:00 Test Item Value Reference Range Interpretation Comments CULTURE (BEAKER) 1+ Normal respiratory (test code = 1095) regina present GRAM STAIN RESULT 4+ WBCs (BEAKER) (test code = 1123) GRAM STAIN RESULT 0-5 epithelial cells (BEAKER) (test code = 04203) GRAM STAIN RESULT <1+ gram positive cocci (BEAKER) (test code = in pairs and clusters 15489) 2D Echo W/Doppler(CW/PW/Color)2019-12-31 10:25:23Ejection FractionSLEH ECHO HEARTLAB MKCKESSON CPACSInterface, External Ris In - 12/31/2019 10:25 AM C DTTransthoracic Echocardiography Report (TTE) Demographics Patient Name TREV STONE Date of Study 12/30/2019 PRITI Gender Male Visit Number [id number] Race Other Room Number 7211 Number Date of 1935 Referring Physician Kurt Samuel Age 84 year(s) Environmental Field Services Technician Nathaniel Coleman RDCS Qualitative Executive Researcher Carmel Noguera RDCS Interpreting Donta Schneider Physician Procedure Type of Study TTE procedure:2DECHO W DOPPLER(CW/PW/COLOR) (Routine) Indications:Hypotension or hemodynamic instability.Clinical HistoryCancerMurmurHyperlipidemiaHypertensionShortness of BreathTIAValvular heart vmjaryz89/9/15 TAVIHGB 11.7HCT 36.4 %Contrast Medium: Definity. Amount - 2 mlHeight: 68 inches Weight: 83.46 kg (184 lbs) BSA: 1.97 m^2 BMI: 27.98 kg/m^2HR: 81bpm BP: 116/44 mmHg Summary The left ventricle is chamber size (by vol index) is normal (male - LVEDvol - 34-74ml/m2). Septal motion is abnormal, likely related to prior cardiac surgery . The other segments contract normally. LVEF by Hill's method of disk assessment is normal (>60%) . Grade 1 d iastolic dysfunction (impaired relaxation and low-normal LA pressure). A percutaneous (TAVR) biologic AoV prosthesis is visualized (valve in valve). AoV dimensionless obstructive index (DOI)) is 0.19 .Peak Grad; 60 mmHg ,Mean Grad; 34 mmHg . Unable to estimate peak systolic PA pressure; inadequate TR velocity signal. Previous Study In comparison with the prior exam 01/07/2016 the following changes are noted: TAVR velocities have increased . Signature Findings Technical Quality: Technically adequate exam. Left Ventricle LV endocardium is adequately visualized withIV ultrasound enhancing agent. The left ventricle is chamber size (by vol index) is normal (male - LVED vol - 34-74ml/m2). No evidence of LV hypertrophy. Septal motion is abnormal, likely related to prior cardiac surgery . The other segments contract normally. Global LV systolic function normal . LVEF by Hill's method of disk assessment is normal (>60%) . Grade 1 diastolic dysfunction (impaired relaxation and low-normal LA pressure). Left Atrium LA size is mildly enlarged (35-41 ml/m2) . Right Ventricle RV chamber size is mildly enlarged . Global RV systolic function is normal . Right Atrium RA size is normal. Aortic ValveA percutaneous (TAVR) biologic AoV prosthesis is visualized (valve in valve). AoV dimensionless obstructive index (DOI)) is 0.19 .Peak Grad; 60 mmHg ,Mean Grad; 34 mmHg . Mitral Valve Mild MV leaflet thickening. No evidence of mitral regurgitation. Tricuspid Valve TV structure is normal. Unable to estimate peak systolic PA pressure; inadequate TR velocity signal. Pulmonic Valve Normal PV structure and function by limited views and Doppler. Aorta Aortic root size (SInus of Valsalva diameter) is normal . Pericardium No pericardial effusion is visualized. IVC/SVC/PA/PV/Pleural The estimated RA pressure by IVC dynamics 5-10mmHg . Chambers /Structures Left Atrium LA Volume: 79.42 ml LA Area: 24.91 cm^2 LA Vol. Index: 40 ml/m^2 Left Ventricle LVIDd: 5.17 cm LV Septum Diastolic: 1.12 cm LV PW Diastolic: 0.65 cm LVEDVSimpson's:114.14 ml LVESV Hill's:42.2 ml LVEF Hill's: 63 % LVEDVI: 58 ml/m^2 LVESVI: 21 ml/m^2 LVOT Diameter: 1.9 cm Aorta Ao Root S of Abby.: 3.85 cm Doppler/Quantitative Measurements Mitral Valve MV Peak E-Wave: 0.7 m/s MV Peak A-Wave: 0.86 m/s E/A Ratio: 0.81 Peak Gradient: 1.94 mmHg Deceleration Time: 228.7 msec MV Raman. Peak: Tissue Doppler E' Lateral Velocity: 0.08 m/s E/E': 8.71 Aortic Valve Peak Velocity: 3.88 m/s Mean Velocity: 2.73 m/s Peak Gradient: 60.15 mmHg Mean Gradient: 34.24 mmHg AV Area (continuity): 0.55 cm^2 AV VTI: 81.24 cm AV DVI: 0.19 LVOT Peak Velocity: 0.76 m/s Peak Gradient: 2.34 mmHg Mean Velocity: 0.52 m/s Mean Gradient: 1.28 mmHg LVOT Diameter: 1.9 cm LVOT VTI: 15.76 cm LVOT Area: 2.84 cm^2 LVOT SV:44.66 ml LVOT CO: 3.62 l/min LVOT CI: 1.84 l/min/m^2 RVOT RVOT VTI (PW): 15.55 [facility] [id number] 06:48:00 Test Item Value Reference Range Interpretation Comments TOTAL PROTEIN 5.4 gm/dL 6.0-8.3 L (BEAKER) (test code = 770) ALBUMIN (BEAKER) 2.9 g/dL 3.5-5.0 L (test code = 1145) ALKALINE PHOSPHATASE 54 U/L 40-150 (BEAKER) (test code = 346) BILIRUBIN TOTAL 1.2 mg/dL 0.2-1.2 (BEAKER) (test code = 377) SODIUM (BEAKER) (test 141 meq/L 136-145 code = 381) POTASSIUM (BEAKER) 3.8 meq/L 3.5-5.1 (test code = 379) CHLORIDE (BEAKER) 112 meq/L 98-107 H (test code = 382) CO2 (BEAKER) (test 20 meq/L 22-29 L code = 355) BLOOD UREA NITROGEN 19 mg/dL 7-21 (BEAKER) (test code = 354) CREATININE (BEAKER) 0.83 mg/dL 0.57-1.25 (test code = 358) GLUCOSE RANDOM 70 mg/dL 70-105 (BEAKER) (test code = 652) CALCIUM (BEAKER) 8.1 mg/dL 8.4-10.2 L (test code = 697) AST (SGOT) (BEAKER) 19 U/L 5-34 (test code = 353) ALT (SGPT) (BEAKER) 13 U/L 6-55 (test code = 347) EGFR (BEAKER) (test 88 mL/min/1.73 ESTIMA DEAN GFR IS code = 1092) sq m NOT ACCURATE CREATININE CLEARANCE IN PREDICTING GLOMERULAR FILTRATION RATE . ESTIMATED GFR I S NOT APPLICABLE FOR DIALYSIS PATIEN TS. Assistant Attorney General ID - MERON [id number] 06:48:00 Test Item Value Reference Range Interpretation Comments MAGNESIUM (BEAKER) (test code = 2.0 mg/dL 1.6-2.6 627) Assistant Attorney General ID - MERON [id number] 06:48:00 Test Item Value Reference Range Interpretation Comments PHOSPHORUS (BEAKER) (test code = 2.0 mg/dL 2.3-4.7 L 604) Assistant Attorney General ID - MERON JASEN/S, RENAL, [id number] 06:39:00Reason for exam:- >worsening kidney function/ metabolic acidosis [facility] 1935 Sex: MFINAL REPORT Renal ultrasound dated 12/31/2019 CLINICAL HISTORY: Worsening renal function COMPARISON: None Comment: Real-time transabdominal renal ultrasound was performed. Right kidney measures 11.8 x 5.0 x 6.8 cm. Left kidney measures 11.7 x 5.1 x 4.3 cm. Right renal cortex measures 1.1 cm. Left renal cortex measures 1.3 cm. Renal parenchymal echogenicity:Normal No hydronephrosis, nephrolithiasis or solid mass is seen. 3.2 x 2.7 x 2.6 cm exophytic cyst arising from the midpole the left kidney with a thin internal septation. Doppler ultrasound demonstrates a patent main renal artery and vein bilaterally. The bladder is decompressed. Impression: Left renal cysts. Otherwise unremarkable ultrasound appearance of the kidneys. Signed: Gerry Sinha MDReport Verified Date/Time: 12/31/2019 06:39:51 US renal complete 2019-12-31 06:39:00Interface, External Ris In - 12/31/2019 6:42 AM CDTFINAL REPORT Renal ultrasound dated 12/31/2019 CLINICAL HISTORY: Worsening renal function COMPARISON: None Comment: Real-time transabdominal renal ultrasound was performed. Right kidney measures 11.8 x 5.0 x 6.8 cm. Left kidney measures 11.7 x 5.1 x 4.3 cm. Right renal cortex measures 1.1 cm. Left renal cortex measures 1.3 cm. Renal parenchymal echogenicity: Normal No hydronephrosis, nephrolithiasis or solid mass is seen. 3.2 x 2.7 x 2.6 cm exophytic cyst arising from the midpole the left kidney with a thin internal septation. Doppler ultrasound demonstrates a patent main renal artery and vein bilaterally. The bladder is decompressed. Impression: Left renal cysts. Otherwise unremarkable ultrasound appearance of the kidneys. Signed: Gerry Sinha MDReport Verified Date/Time: 12/31/2019 06:39:51 [facility] W/PLT COUNT & AUTO [id number] 06:11:00 Test Item Value Reference Range Interpretation Comments WHITE BLOOD CELL COUNT (BEAKER) 14.7 K/ L 3.5-10.5 H (test code = 775) RED BLOOD CELL COUNT (BEAKER) 3.75 M/ L 4.63-6.08 L (test code = 761) HEMOGLOBIN (BEAKER) (test code = 11.1 GM/DL 13.7-17.5 L 410) HEMATOCRIT (BEAKER) (test code = 35.6 % 40.1-51.0 L 411) MEAN CORPUSCULAR VOLUME (BEAKER) 94.9 fL 79.0-92.2 H (test code = 753) MEAN CORPUSCULAR HEMOGLOBIN 29.6 pg 25.7-32.2 (BEAKER) (test code = 751) MEAN CORPUSCULAR HEMOGLOBIN CONC 31.2 GM/DL 32.3-36.5 L (BEAKER) (test code = 752) RED CELL DISTRIBUTION WIDTH 12.9 % 11.6-14.4 (BEAKER) (test code = 412) PLATELET COUNT (BEAKER) (test 111 K/CU MM 150-450 L code = 756) MEAN PLATELET VOLUME (BEAKER) 11.3 fL 9.4-12.4 (test code = 754) NUCLEATED RED BLOOD CELLS 0 /100 WBC 0-0 (BEAKER) (test code = 413) NEUTROPHILS RELATIVE PERCENT 79 % (BEAKER) (test code = 429) LYMPHOCYTES RELATIVE PERCENT 13 % (BEAKER) (test code = 430) MONOCYTES RELATIVE PERCENT 5 % (BEAKER) (test code = 431) EOSINOPHILS RELATIVE PERCENT 2 % (BEAKER) (test code = 432) BASOPHILS RELATIVE PERCENT 0 % (BEAKER) (test code = 437) NEUTROPHILS ABSOLUTE COUNT 11.58 K/ L 1.78-5.38 H (BEAKER) (test code = 670) LYMPHOCYTES ABSOLUTE COUNT 1.86 K/ L 1.32-3.57 (BEAKER) (test code = 414) MONOCYTES ABSOLUTE COUNT (BEAKER) 0.76 K/ L 0.30-0.82 (test code = 415) EOSINOPHILS ABSOLUTE COUNT 0.34 K/ L 0.04-0.54 (BEAKER) (test code = 416) BASOPHILS ABSOLUTE COUNT (BEAKER) 0.04 K/ L 0.01-0.08 (test code = 417) IMMATURE GRANULOCYTES-RELATIVE 1 % 0-1 PERCENT (BEAKER) (test code = 2801) RAD, CHEST, 1 VIEW, NON [id number] 01:43:00Reason for exam:->respiratory failureShould this be performed at the bedside?->Yes [facility] 1935 Sex: MFINAL REPORT CLINICAL INDICATION: Support lines. Comparison: The patient is rotated to the right. The cardiomediastinal contours are stable. The lung volumes are stable after extubation. Central pulmonary vascular prominence of and bilateral parenchymal and pleural opacities are unchanged. There is no pneumothorax. An enteric tube remains in place. Signed: Gerry Sinha MDReport Verified Date/Time: 12/31/2019 01:43:07 XR chest 1 view portable / [id number] 01:43:00Interface, External Ris In - 12/31/2019 1:45 AM CDTFINAL REPORT CLINICAL INDICATION: Support lines. Comparison: 12/30/2019 The patient is rotated to the right. The cardiomediast inal contours are stable. The lung volumes are stable after extubation. Central pulmonary vascular prominence of and bilateral parenchymal and pleural opacities are unchanged. There is no pneumothorax.An enteric tube remains in place. Signed: Gerry Sinha MDReport Verified Date/Time: 12/31/2019 01:43:07 [facility] W/PLT COUNT & AUTO [id number] 18:42:00 Test Item Value Reference Range Interpretation Comments WHITE BLOOD CELL COUNT (BEAKER) 16.6 K/ L 3.5-10.5 H (test code = 775) RED BLOOD CELL COUNT (BEAKER) 3.82 M/ L 4.63-6.08 L (test code = 761) HEMOGLOBIN (BEAKER) (test code = 11.8 GM/DL 13.7-17.5 L 410) HEMATOCRIT (BEAKER) (test code = 36.4 % 40.1-51.0 L 411) MEAN CORPUSCULAR VOLUME (BEAKER) 95.3 fL 79.0-92.2 H (test code = 753) MEAN CORPUSCULAR HEMOGLOBIN 30.9 pg 25.7-32.2 (BEAKER) (test code = 751) MEAN CORPUSCULAR HEMOGLOBIN CONC 32.4 GM/DL 32.3-36.5 (BEAKER) (test code = 752) RED CELL DISTRIBUTION WIDTH 13.0 % 11.6-14.4 (BEAKER) (test code = 412) PLATELET COUNT (BEAKER) (test 116 K/CU MM 150-450 L code = 756) MEAN PLATELET VOLUME (BEAKER) 10.7 fL 9.4-12.4 (test code = 754) NUCLEATED RED BLOOD CELLS 0 /100 WBC 0-0 (BEAKER) (test code = 413) NEUTROPHILS RELATIVE PERCENT 80 % (BEAKER) (test code = 429) LYMPHOCYTES RELATIVE PERCENT 13 % (BEAKER) (test code = 430) MONOCYTES RELATIVE PERCENT 5 % (BEAKER) (test code = 431) EOSINOPHILS RELATIVE PERCENT 2 % (BEAKER) (test code = 432) BASOPHILS RELATIVE PERCENT 0 % (BEAKER) (test code = 437) NEUTROPHILS ABSOLUTE COUNT 13.24 K/ L 1.78-5.38 H (BEAKER) (test code = 670) LYMPHOCYTES ABSOLUTE COUNT 2.09 K/ L 1.32-3.57 (BEAKER) (test code = 414) MONOCYTES ABSOLUTE COUNT (BEAKER) 0.89 K/ L 0.30-0.82 H (test code = 415) EOSINOPHILS ABSOLUTE COUNT 0.25 K/ L 0.04-0.54 (BEAKER) (test code = 416) BASOPHILS ABSOLUTE COUNT (BEAKER) 0.06 K/ L 0.01-0.08 (test code = 417) IMMATURE GRANULOCYTES-RELATIVE 1 % 0-1 PERCENT (BEAKER) (test code = 2801) Vancomycin level, [id number] 09:49:00 Test Item Value Reference Range Interpretation Comments Vancomycin Tr (test code = 9.6 ug/mL 10-20 L 4092-3) JETT (test code = JETT) Assistant Attorney General ID - [id number] C Lab Interpretation (test Abnormal code = 45219-1) [facility] [id number] 09:49:00 Test Item Value Reference Range Interpretation Comments VANCOMYCIN TROUGH (BEAKER) (test 9.6 ug/mL 10.0-20.0 L code = 522) Assistant Attorney General ID - SUHA CCOMPREHENSIVE METABOLIC [id number] 05:31:00 Test Item Value Reference Range Interpretation Comments TOTAL PROTEIN 5.0 gm/dL 6.0-8.3 L (BEAKER) (test code = 770) ALBUMIN (BEAKER) 2.8 g/dL 3.5-5.0 L (test code = 1145) ALKALINE PHOSPHATASE 53 U/L 40-150 (BEAKER) (test code = 346) BILIRUBIN TOTAL 2.0 mg/dL 0.2-1.2 H (BEAKER) (test code = 377) SODIUM (BEAKER) (test 139 meq/L 136-145 code = 381) POTASSIUM (BEAKER) 4.2 meq/L 3.5-5.1 (test code = 379) CHLORIDE (BEAKER) 110 meq/L 98-107 H (test code = 382) CO2 (BEAKER) (test 23 meq/L 22-29 code = 355) BLOOD UREA NITROGEN 24 mg/dL 7-21 H (BEAKER) (test code = 354) CREATININE (BEAKER) 1.12 mg/dL 0.57-1.25 (test code = 358) GLUCOSE RANDOM 125 mg/dL 70-105 H (BEAKER) (test code = 652) CALCIUM (BEAKER) 7.9 mg/dL 8.4-10.2 L (test code = 697) AST (SGOT) (BEAKER) 19 U/L 5-34 (test code = 353) ALT (SGPT) (BEAKER) 15 U/L 6-55 (test code = 347) EGFR (BEAKER) (test 62 mL/min/1.73 ESTIMA DENA GFR IS code = 1092) sq m NOT ACCURATE CREATININE CLEARANCE IN PREDICTING GLOMERULAR FILTRATION RATE . ESTIMATED GFR I S NOT APPLICABLE FOR DIALYSIS PATIEN TS. Assistant Attorney General ID - MERON [id number] 05:13:00 Test Item Value Reference Range Interpretation Comments MAGNESIUM (BEAKER) (test code = 1.6 mg/dL 1.6-2.6 627) Assistant Attorney General ID - BRANDONENRIKE [id number] 05:13:00 Test Item Value Reference Range Interpretation Comments PHOSPHORUS (BEAKER) (test code = 2.6 mg/dL 2.3-4.7 604) Assistant Attorney General ID - MERON LCBC W/PLT COUNT & AUTO [id number] 04:43:00 Test Item Value Reference Range Interpretation Comments WHITE BLOOD CELL COUNT 19.3 K/ L 3.5-10.5 H (BEAKER) (test code = 775) RED BLOOD CELL COUNT 3.87 M/ L 4.63-6.08 L (BEAKER) (test code = 761) HEMOGLOBIN (BEAKER) 11.7 GM/DL 13.7-17.5 L Discorda nt HGB (test code = 410) results co mpared to previous result s; clinical correl ation required.[id number] HEMATOCRIT (BEAKER) 36.4 % 40.1-51.0 L (test code = 411) MEAN CORPUSCULAR 94.1 fL 79.0-92.2 H VOLUME (BEAKER) (test code = 753) MEAN CORPUSCULAR 30.2 pg 25.7-32.2 HEMOGLOBIN (BEAKER) (test code = 751) MEAN CORPUSCULAR 32.1 GM/DL 32.3-36.5 L HEMOGLOBIN CONC (BEAKER) (test code = 752) RED CELL DISTRIBUTION 13.0 % 11.6-14.4 WIDTH (BEAKER) (test code = 412) PLATELET COUNT 120 K/CU MM 150-450 L (BEAKER) (test code = 756) MEAN PLATELET VOLUME 10.9 fL 9.4-12.4 (BEAKER) (test code = 754) NUCLEATED RED BLOOD 0 /100 WBC 0-0 CELLS (BEAKER) (test code = 413) NEUTROPHILS RELATIVE 83 % PERCENT (BEAKER) (test code = 429) LYMPHOCYTES RELATIVE 10 % PERCENT (BEAKER) (test code = 430) MONOCYTES RELATIVE 6 % PERCENT (BEAKER) (test code = 431) EOSINOPHILS RELATIVE 1 % PERCENT (BEAKER) (test code = 432) BASOPHILS RELATIVE 0 % PERCENT (BEAKER) (test code = 437) NEUTROPHILS ABSOLUTE 15.98 K/ L 1.78-5.38 H COUNT (BEAKER) (test code = 670) LYMPHOCYTES ABSOLUTE 1.88 K/ L 1.32-3.57 COUNT (BEAKER) (test code = 414) MONOCYTES ABSOLUTE 1.08 K/ L 0.30-0.82 H COUNT (BEAKER) (test code = 415) EOSINOPHILS ABSOLUTE 0.09 K/ L 0.04-0.54 COUNT (BEAKER) (test code = 416) BASOPHILS ABSOLUTE 0.05 K/ L 0.01-0.08 COUNT (BEAKER) (test code = 417) IMMATURE 1 % 0-1 GRANULOCYTES-RELATIVE PERCENT (BEAKER) (test code = 2801) Blood gas, [id number] 04:36:00 Test Item Value Reference Range Interpretation Comments pH, Arterial (test code 7.40 7.35-7.45 = 2744-1) pCO2, Arterial (test 38 See_Comment [Autom ated code = 2019-8) message] The system which generated this result transmitted reference range : 35 - 45 mm Hg. The reference range was not used to interpret this result as normal/abnormal . pO2, Arterial (test 173 See_Comment H [Automa dena code = 2703-7) message] The system which generated this result transmitted reference range : 80 - 90 mm Hg. The reference range was not used to interpret this result as normal/abnormal . O2 Sat, Arterial (test 99.2 % 96-97 H code = 2708-6) HCO3, Arterial (test 23 mmol/L 21-29 code = 1960-4) Base Excess, Arterial -1.1 mmol/L -2-3 (test code = 1925-7) Patient Temperature 38.0 (test code = 8310-5) FIO2 (test code = 1819) 50 Lab Interpretation Abnormal (test code = 94053-4) [facility] [id number] 04:36:00 Test Item Value Reference Range Interpretation Comments PH ARTERIAL (BEAKER) (test code = 7.40 7.35-7.45 383) PCO2 ARTERIAL (BEAKER) (test code 38 mm Hg 35-45 = 384) PO2 ARTERIAL (BEAKER) (test code 173 mm Hg 80-90 H = 385) O2 SATURATION ARTERIAL (BEAKER) 99.2 % 96.0-97.0 H (test code = 386) HCO3 ARTERIAL (BEAKER) (test code 23 mmol/L 21-29 = 388) BASE EXCESS ARTERIAL (BEAKER) -1.1 mmol/L -2.0-3.0 (test code = 387) PATIENT TEMPERATURE (BEAKER) 38.0 (test code = 1818) FIO2 (BEAKER) (test code = 1819) 50.0 CORTISOL,60 [id number] 03:53:00 Test Item Value Reference Range Interpretation Comments Cortisol, Baseline 14.1 mcg/dL (test code = 09699-9) Cortisol 30 minute 16.0 mcg/dL (test code = 06712-5) Cortisol, 60 16.5 ug/dL Minute (test code = 57901-9) JETT (test code = ACTH STIMULATION TEST JETT) INTERPRETATION GUIDELINES(Synonyms: Cortrosyn Test, Cosyntropin or Corticotropin Stimulation Test) Adenocorticotropic hormone (ACTH)is a tropic hormone, made in the pituitary gland, which travels trhough the bloodstream and stimulates the cortex of the adrenal glands to release cortisol. Cortisol is a primary hormone, which aids the body's metabolism of fats, carbohydrates, and protein as well as sodium and potassium regulation. ACTH Stimulation Test: Exogenous administration of biologically active ACTH stimulates the secretion of cortisol from the adrenal gland. This test is used to evaluate adrenal function by measuring cortisol levels at baseline and at 30 and 60 minutes after the administration of 250 micrograms of cosyntropin (Cortrosyn). Patients who have received exogenous corticosteroids immediately prior to performing the ACTH Stimulation Test will often have elevated baseline cortisol levels, which may lead to erroneous interpretation of test results. The notable exception is with dexamethasone. Normal Response: An increase in cortisol after stimulation by ACTH is normal. Post-stimulation cortisol concentration should be greater than 20 mcg/dL or the rate of rise from baseline cortisol should be greater than or equal to 9 mcg/dL. Patients with sepsis or septic shock: According to a study by Julia et al (ATUL 2000,283(8):1038-45), the ACTH Stimulation Test provides important prognostic information. This study defined 3 groups of patients with sepsis or septic shock: 1. Good Survival: Low basal cortisol (<or=34 mcg/dL) and high ACTH response (>9mcg/dL) 2. Intermediate Survival: Low basal cortisol (<34 mcg/dL) and low response to ACTH (<or=9 mcg/dL) OR High basal cortisol (>34 mcg/dL) or high ACTH response (>9 mcg/dL) 3. Poor Survival: High basal cortisol (>34 mcg/dL) and low ACTH response (<or=9 mcg/dL). Treatment of patients with relative adrenal dysfunction may be indicated based on test results and the clinical condition of the patient. Additional information, including treatment recommendations, is available in critically ill patients, approved by the Pharmacy, Nutrition, and Therapeutics Committee on 02/14/2004 and available through the Pharmacy Policy and Procedure Section on The Source. Assistant Attorney General ID - PIAYA L [facility]60 [id number] 03:53:00 Test Item Value Reference Range Interpretation Comments CORTISOL BASELINE NETWORKED 14.1 mcg/dL (BEAKER) (test code = 2307) CORTISOL 30 MINUTE NETWORKED 16.0 mcg/dL (BEAKER) (test code = 2308) CORTISOL, 60 MINUTE (BEAKER) 16.5 ug/dL (test code = 1805) ACTH STIMULATION TEST INTERPRETATION GUIDELINES(Synonyms: Cortrosyn Test, Cosyntropin or Corticotropin Stimulation Test)Adenocorticotropic hormone (ACTH)is a tropic hormone, made in the pituitary gland, which travels trhough the bloodstream and stimulates the cortex of the adrenal glands to release cortisol. Cortisol is a primary hormone, which aids the body's metabolism of fats, carbohydrates, and protein as well as sodium and potassium regulation.ACTH Stimulation Test: Exogenous administrationof biologically active ACTH stimulates the secretion of cortisol from the adrenal gland. This test is used to evaluate adrenal function by measuring cortisol levels at baseline and at 30 and 60 minutesafter the administration of 250 micrograms of cosyntropin (Cortrosyn). Patients who have received exogenous corticosteroids immediately prior to performing the ACTH Stimulation Test will often have elevated baseline cortisol levels, which may lead to erroneous interpretation of test results. The notable exception is with dexamethasone.Normal Response: An increase in cortisol after stimulation by ACTHis normal. Post-stimulation cortisol concentration should be greater than 20 mcg/dL or the rate of rise from baseline cortisol should be greater than or equal to 9 mcg/dL.Patients with sepsis or septicshock: According to a study by Julia et al (ATUL 2000,283(8):1038-45), the ACTH Stimulation Test provides important prognostic information. This study defined 3 groups of patients with sepsis or septic shock: 1. Good Survival: Low basal cortisol (<or=34 mcg/dL) and high ACTH response (>9mcg/dL) 2. Intermediate Survival: Low basal cortisol (<34 mcg/dL) and low response to ACTH (&l t;or=9 mcg/dL) OR High basal cortisol (>34 mcg/dL) or high ACTH response (>9 mcg/dL) 3.Poor Survival: High basal cortisol (>34 mcg/dL) and low ACTH response (<or=9 mcg/dL).Treatment of patients with relative adrenal dysfunction may be indicated based on test results and the clinical condition of the patient. Additional information, including treatment recommendations, is available in critically ill patients, approved by the Pharmacy, Nutrition, and Therapeutics Committee on 02/14/2004 and available through the Pharmacy Policy and Procedure Section on The Source.Assistant Attorney General ID - PIAYA LCORTISOL,30 MIN 2019-12-30 03:52:00 Test Item Value Reference Range Interpretation Comments Cortisol, Baseline 14.1 mcg/dL (test code = 72106-1) Cortisol, 30 16.0 ug/dL Minute (test code = 73024-5) JETT (test code = ACTH STIMULATION TEST JETT) INTERPRETATION GUIDELINES(Synonyms: Cortrosyn Test, Cosyntropin or Corticotropin Stimulation Test) Adenocorticotropic hormone (ACTH)is a tropic hormone, made in the pituitary gland, which travels trhough the bloodstream and stimulates the cortex of the adrenal glands to release cortisol. Cortisol is a primary hormone, which aids the body's metabolism of fats, carbohydrates, and protein as well as sodium and potassium regulation. ACTH Stimulation Test: Exogenous administration of biologically active ACTH stimulates the secretion of cortisol from the adrenal gland. This test is used to evaluate adrenal function by measuring cortisol levels at baseline and at 30 and 60 minutes after the administration of 250 micrograms of cosyntropin (Cortrosyn). Patients who have received exogenous corticosteroids immediately prior to performing the ACTH Stimulation Test will often have elevated baseline cortisol levels, which may lead to erroneous interpretation of test results. The notable exception is with dexamethasone. Normal Response: An increase in cortisol after stimulation by ACTH is normal. Post-stimulation cortisol concentration should be greater than 20 mcg/dL or the rate of rise from baseline cortisol should be greater than or equal to 9 mcg/dL. Patients with sepsis or septic shock: According to a study by Julia et al (ATUL 2000,283(8):1038-45), the ACTH Stimulation Test provides important prognostic information. This study defined 3 groups of patients with sepsis or septic shock: 1. Good Survival: Low basal cortisol (<or=34 mcg/dL) and high ACTH response (>9mcg/dL) 2. Intermediate Survival: Low basal cortisol (<34 mcg/dL) and low response to ACTH (<or=9 mcg/dL) OR High basal cortisol (>34 mcg/dL) or high ACTH response (>9 mcg/dL) 3. Poor Survival: High basal cortisol (>34 mcg/dL) and low ACTH response (<or=9 mcg/dL). Treatment of patients with relative adrenal dysfunction may be indicated based on test results and the clinical condition of the patient. Additional information, including treatment recommendations, is available in critically ill patients, approved by the Pharmacy, Nutrition, and Therapeutics Committee on 02/14/2004 and available through the Pharmacy Policy and Procedure Section on The Source. Assistant Attorney General ID - PIAYA L [facility] [id number] 03:52:00 Test Item Value Reference Range Interpretation Comments CORTISOL BASELINE NETWORKED 14.1 mcg/dL (BEAKER) (test code = 2307) CORTISOL, 30 MINUTE (BEAKER) 16.0 ug/dL (test code = 1804) ACTH STIMULATION TEST INTERPRETATION GUIDELINES(Synonyms: Cortrosyn Test, Cosyntropin or Corticotropin Stimulation Test)Adenocorticotropic hormone (ACTH)is a tropic hormone, made in the pituitary gland, which travels trhough the bloodstream and stimulates the cortex of the adrenal glands to release cortisol. Cortisol is a primary hormone, which aids the body's metabolism of fats, carbohydrates, and protein as well as sodium and potassium regulation.ACTH Stimulation Test: Exogenous administrationof biologically active ACTH stimulates the secretion of cortisol from the adrenal gland. This test is used to evaluate adrenal function by measuring cortisol levels at baseline and at 30 and 60 minutesafter the administration of 250 micrograms of cosyntropin (Cortrosyn). Patients who have received exogenous corticosteroids immediately prior to performing the ACTH Stimulation Test will often have elevated baseline cortisol levels, which may lead to erroneous interpretation of test results. The notable exception is with dexamethasone.Normal Response: An increase in cortisol after stimulation by ACTHis normal. Post-stimulation cortisol concentration should be greater than 20 mcg/dL or the rate of rise from baseline cortisol should be greater than or equal to 9 mcg/dL.Patients with sepsis or septicshock: According to a study by Julia et al (ATUL 2000,283(8):1038-45), the ACTH Stimulation Test provides important prognostic information. This study defined 3 groups of patients with sepsis or septic shock: 1. Good Survival: Low basal cortisol (<or=34 mcg/dL) and high ACTH response (>9mcg/dL) 2. Intermediate Survival: Low basal cortisol (<34 mcg/dL) and low response to ACTH (&l t;or=9 mcg/dL) OR High basal cortisol (>34 mcg/dL) or high ACTH response (>9 mcg/dL) 3.Poor Survival: High basal cortisol (>34 mcg/dL) and low ACTH response (<or=9 mcg/dL).Treatment of patients with relative adrenal dysfunction may be indicated based on test results and the clinical condition of the patient. Additional information, including treatment recommendations, is available in critically ill patients, approved by the Pharmacy, Nutrition, and Therapeutics Committee on 02/14/2004 and available through the Pharmacy Policy and Procedure Section on The Source.Assistant Attorney General ID - PIAYA LRAD, CHEST, 1 VIEW, NON [id number] 03:30:00Reason for exam:->respiratory failureShould this be performed at the bedside?->Yes [facility] 1935 Sex: MFINAL REPORT RAD, CHEST, 1 VIEW, NON DEPT INDICATION: respiratory failure COMPARISON: Prior day's exam FINDINGS: Portable frontal view of the chest. IMPRESSION: Support Lines: Interval placement of an enteric tube which seen coursing below the diaphragm, tip overlying the gastric body, proximal sidehole at the GE junction, recommend advancing. Lungs and pleura: Improved aeration of the bilateral lungs with persistent patchy heterogeneous airspace opacities and calcified pleural plaques. Possible small left pleural effusion. No pneumothorax.Heart and mediastinum: Stable contours. Stable surgical changes.Additional findings: None. Signed: Anastasiia Aponte MDRepmary kay Verified Date/Time: 12/30/2019 03:30:42 CORTISOL,[id number] 01:31:00 Test Item Value Reference Range Interpretation Comments Cortisol, Baseline 14.1 ug/dL (test code = 1803) JETT (test code = ACTH STIMULATION TEST JETT) INTERPRETATION GUIDELINES(Synonyms: Cortrosyn Test, Cosyntropin or Corticotropin Stimulation Test) Adenocorticotropic hormone (ACTH)is a tropic hormone, made in the pituitary gland, which travels trhough the bloodstream and stimulates the cortex of the adrenal glands to release cortisol. Cortisol is a primary hormone, which aids the body's metabolism of fats, carbohydrates, and protein as well as sodium and potassium regulation. ACTH Stimulation Test: Exogenous administration of biologically active ACTH stimulates the secretion of cortisol from the adrenal gland. This test is used to evaluate adrenal function by measuring cortisol levels at baseline and at 30 and 60 minutes after the administration of 250 micrograms of cosyntropin (Cortrosyn). Patients who have received exogenous corticosteroids immediately prior to performing the ACTH Stimulation Test will often have elevated baseline cortisol levels, which may lead to erroneous interpretation of test results. The notable exception is with dexamethasone. Normal Response: An increase in cortisol after stimulation by ACTH is normal. Post-stimulation cortisol concentration should be greater than 20 mcg/dL or the rate of rise from baseline cortisol should be greater than or equal to 9 mcg/dL. Patients with sepsis or septic shock: According to a study by Julia et al (ATUL 2000,283(8):6024-45), the ACTH Stimulation Test provides important prognostic information. This study defined 3 groups of patients with sepsis or septic shock: 1. Good Survival: Low basal cortisol (<or=34 mcg/dL) and high ACTH response (>9mcg/dL) 2. Intermediate Survival: Low basal cortisol (<34 mcg/dL) and low response to ACTH (<or=9 mcg/dL) OR High basal cortisol (>34 mcg/dL) or high ACTH response (>9 mcg/dL) 3. Poor Survival: High basal cortisol (>34 mcg/dL) and low ACTH response (<or=9 mcg/dL). Treatment of patients with relative adrenal dysfunction may be indicated based on test results and the clinical condition of the patient. Additional information, including treatment recommendations, is available in critically ill patients, approved by the Pharmacy, Nutrition, and Therapeutics Committee on 02/14/2004 and available through the Pharmacy Policy and Procedure Section on The Source. Assistant Attorney General ID - PIAYA L [facility]CORT[facility],[id number] 01:31:00 Test Item Value Reference Range Interpretation Comments CORTISOL, BASELINE (BEAKER) (test 14.1 ug/dL code = 1803) ACTH STIMULATION TEST INTERPRETATION GUIDELINES(Synonyms: Cortrosyn Test, Cosyntropin or Corticotropin Stimulation Test)Adenocorticotropic hormone (ACTH)is a tropic hormone, made in the pituitary gland, which travels trhough the bloodstream and stimulates the cortex of the adrenal glands to release cortisol. Cortisol is a primary hormone, which aids the body's metabolism of fats, carbohydrates, and protein as well as sodium and potassium regulation.ACTH Stimulation Test: Exogenous administrationof biologically active ACTH stimulates the secretion of cortisol from the adrenal gland. This test is used to evaluate adrenal function by measuring cortisol levels at baseline and at 30 and 60 minutesafter the administration of 250 micrograms of cosyntropin (Cortrosyn). Patients who have received exogenous corticosteroids immediately prior to performing the ACTH Stimulation Test will often have elevated baseline cortisol levels, which may lead to erroneous interpretation of test results. The notable exception is with dexamethasone.Normal Response: An increase in cortisol after stimulation by ACTHis normal. Post-stimulation cortisol concentration should be greater than 20 mcg/dL or the rate of rise from baseline cortisol should be greater than or equal to 9 mcg/dL.Patients with sepsis or septicshock: According to a study by Julia et al (ATUL 2000,283(8):1038-45), the ACTH Stimulation Test provides important prognostic information. This study defined 3 groups of patients with sepsis or septic shock: 1. Good Survival: Low basal cortisol (<or=34 mcg/dL) and high ACTH response (>9mcg/dL) 2. Intermediate Survival: Low basal cortisol (<34 mcg/dL) and low response to ACTH (&l t;or=9 mcg/dL) OR High basal cortisol (>34 mcg/dL) or high ACTH response (>9 mcg/dL) 3.Poor Survival: High basal cortisol (>34 mcg/dL) and low ACTH response (<or=9 mcg/dL).Treatment of patients with relative adrenal dysfunction may be indicated based on test results and the clinical condition of the patient. Additional information, including treatment recommendations, is available in critically ill patients, approved by the Pharmacy, Nutrition, and Therapeutics Committee on 02/14/2004 and available through the Pharmacy Policy and Procedure Section on The Source.Assistant Attorney General ID - PIAYA LCreatinine, random [id number] 19:52:00 Test Item Value Reference Range Interpretation Comments Creatinine, Ur 310.8 mg/dL (test code = 2161-8) JETT (test code = Reference Range: No JETT) NormalsOperator ID - DB [facility] random [id number] 19:52:00 Test Item Value Reference Range Interpretation Comments Sodium Urine (test <20 meq/L code = 2955-3) JETT (test code = Reference Range: No JETT) NormalsOperator ID - DB [facility]CREAT[facility], RANDOM [id number] 19:52:00 Test Item Value Reference Range Interpretation Comments CREATININE URINE (BEAKER) (test 310.8 mg/dL code = 375) Reference Range: No NormalsOperator ID - DBSODIUM, RANDOM [id number] 19:52:00 Test Item Value Reference Range Interpretation Comments SODIUM URINE (BEAKER) (test code = < meq/L 243) Reference Range: No NormalsOperator ID - DBPOCT-GLUCOSE [id number] 18:14:00 Test Item Value Reference Range Interpretation Comments POC-GLUCOSE METER 105 mg/dL 70-110 : TESTED A T BSC 6720 (BEAKER) (test code = [place], 1538) [address]: Assistant Attorney General/Techni cory ID = [id number] for Laura Bauman Basic Metabolic [id number] 16:24:00 Test Item Value Reference Range Interpretation Comments Sodium (test code = 139 meq/L 236-719 9855-2) Potassium (test code = 4.9 meq/L 3.5-5.1 2823-3) Chloride (test code = 110 meq/L 98-107 H 2075-0) CO2 (test code = 22 meq/L 22-29 2028-9) BUN (test code = 23 mg/dL 7-21 H 3094-0) Creatinine (test code 1.15 mg/dL 0.57-1.25 = 2160-0) Glucose (test code = 105 mg/dL 70-105 2345-7) Calcium (test code = 7.9 mg/dL 8.4-10.2 L 04157-7) EGFR (test code = 60 mL/min/1.73 [place] [address]-5) NOT ACCURATE CREATININE CLEARANCE IN PREDICTING GLOMERULAR FILTRATION RATE . ESTIMATED GFR I S NOT APPLICABLE FOR DIALYSIS PATIENTS. JETT (test code = JETT) Assistant Attorney General ID - DB Lab Interpretation Abnormal (test code = 78930-2) [facility] [id number] 16:24:00 Test Item Value Reference Range Interpretation Comments SODIUM (BEAKER) 139 meq/L 136-145 (test code = 381) POTASSIUM (BEAKER) 4.9 meq/L 3.5-5.1 (test code = 379) CHLORIDE (BEAKER) 110 meq/L 98-107 H (test code = 382) CO2 (BEAKER) (test 22 meq/L 22-29 code = 355) BLOOD UREA NITROGEN 23 mg/dL 7-21 H (BEAKER) (test code = 354) CREATININE (BEAKER) 1.15 mg/dL 0.57-1.25 (test code = 358) GLUCOSE RANDOM 105 mg/dL 70-105 (BEAKER) (test code = 652) CALCIUM (BEAKER) 7.9 mg/dL 8.4-10.2 L (test code = 697) EGFR (BEAKER) (test 60 mL/min/1.73 ESTIMA DENA GFR IS code = 1092) sq m NOT ACCURATE CREATININE CLEARANCE IN PREDICTING GLOMERULAR FILTRATION RATE . ESTIMATED GFR I S NOT APPLICABLE FOR DIALYSIS PATIEN TS. Assistant Attorney General ID - [id number] 16:23:00 Test Item Value Reference Range Interpretation Comments MAGNESIUM (BEAKER) (test code = 1.6 mg/dL 1.6-2.6 627) Assistant Attorney General ID - DBBLOOD GAS, [id number] 16:09:00 Test Item Value Reference Range Interpretation Comments PH ARTERIAL (BEAKER) (test code = 7.37 7.35-7.45 383) PCO2 ARTERIAL (BEAKER) (test code 27 mm Hg 35-45 L = 384) PO2 ARTERIAL (BEAKER) (test code 107 mm Hg 80-90 H = 385) O2 SATURATION ARTERIAL (BEAKER) 97.5 % 96.0-97.0 H (test code = 386) HCO3 ARTERIAL (BEAKER) (test code 15 mmol/L 21-29 L = 388) BASE EXCESS ARTERIAL (BEAKER) -8.7 mmol/L -2.0-3.0 L (test code = 387) PATIENT TEMPERATURE (BEAKER) 38.5 (test code = 1818) FIO2 (BEAKER) (test code = 1819) 50.0 RAD, ABDOMEN/KUB, 1 VIEW [id number] 12:40:00Reason for exam:->[facility] 1935 Sex: MFINAL REPORT TECHNIQUE: Frontal view of the abdomen. INDICATION: 84-year-old man after nasogastric tube placement. COMPARISON: None. IMPRESSION:Nasogastric tube terminates over the expected region of the proximal gastric body. Mildly distended small bowel loops scattered in the abdomen. Ileus or small bowel obstruction cannot be excluded in the correct clinical setting. Degenerative changes of the visualized spine. Calcifications along the diaphragm. Signed: Gualberto Levy MDReport Verified Date/Time: 12/29/2019 12:40:58 Reading Location: [facility] C0[facility] CT Body Reading Room XR abdomen / KUB 1 [id number] 12:40:00Interface, External Ris In - 12/29/2019 12:43 PM CDTFINAL REPORT TECHNIQUE: Frontal view of the abdomen. INDICATION: 84-year-old man after nasogastric tube placement. COMPARISON:None. IMPRESSION:Nasogastric tube terminates over the expected region of the proximal gastric body. Mildly distended small bowel loops scattered in the abdomen. Ileus or small bowel obstruction cannot be excluded in the correct clinical setting. Degenerative changes of the visualized spine. Calcifications along the diaphragm. Signed: Gualberto Levy MDReport Verified Date/Time: 12/29/2019 12:40:58 Reading Location: [facility] C013 CT Body [facility]2019-12-29 11:35:00 Test Item Value Reference Range Interpretation Comments BNP (test code = 27307-8) 193 pg/mL 0-100 H JETT (test code = JETT) Assistant Attorney General ID - SUHA C Lab Interpretation (test Abnormal code = 55631-8) [facility] (BNP)2019-12-29 11:35:00 Test Item Value Reference Range Interpretation Comments B-TYPE NATRIURETIC PEPTIDE (BEAKER) 193 pg/mL 0-100 H (test code = 700) Assistant Attorney General ID - SUHA CLactic Acid, [id number] 11:25:00 Test Item Value Reference Range Interpretation Comments Lactate, Art (test code = 3.3 mmol/L 0.5-2.2 H 2874) JETT (test code = JETT) Assistant Attorney General ID - SUHA C Lab Interpretation (test Abnormal code = 38203-8) [facility], [id number] 11:25:00 Test Item Value Reference Range Interpretation Comments LACTATE BLOOD ARTERIAL (2) 3.3 mmol/L 0.5-2.2 H (BEAKER) (test code = 2874) Assistant Attorney General ID - SUHA CLactic acid, venous [id number] 07:06:00 Test Item Value Reference Range Interpretation Comments Lactate, Venous (test 3.49 mmol/L 0.5-2.2 H Specim en code = 2872) slightly hemolyzed JETT (test code = JETT) Assistant Attorney General ID - EDASI Lab Interpretation Abnormal (test code = 03400-3) [facility], [id number] 07:06:00 Test Item Value Reference Range Interpretation Comments LACTATE BLOOD VENOUS 3.49 mmol/L 0.50-2.20 H Specime n slightly (2) (BEAKER) (test hemolyzed code = 2872) Assistant Attorney General ID - EDASIUrinalysis w/Microscopic + Reflex to [id number] 06:56:00 Test Item Value Reference Range Interpretation Comments Color, UA (test code Light Yellow = 5778-6) Clarity, UA (test Cloudy code = 5767-9) Specific [place], UA 1.012 1.001-1.035 (test code = 5811-5) pH, UA (test code = 7.5 5.0-8.0 5803-2) Protein, UA (test 20 mg/dL Negative A code = 72399-8) Glucose, UA (test Negative Negative code = 365) Ketones, UA (test Negative Negative code = 2514-8) Bilirubin, UA (test Negative Negative code = 49113-9) Blood, UA (test code Moderate Negative A = 73094-0) Nitrite, UA (test Negative Negative code = 5802-4) Leukocytes, UA (test Large Negative A code = 5799-2) Urobilinogen, UA 0.2 mg/dL 0.2-1 (test code = 35827-2) RBC, UA (test code = 11 See_Comment [Autom ated 70180-6) message] The system which generated this result transmit dena reference range : /HPF. The reference range was not used to interpret this result as normal/abnormal . WBC, UA (test code = 293 See_Comment [Autom ated 5821-4) message] The system which generated this result transmit dena reference range : /HPF. The reference range was not used to interpret this result as normal/abnormal . Amorphous Crystals Moderate (test code = 58016-3) Yeast (test code = Many 56293-9) Specimen Source (test code = 2795) JETT (test code = JETT) Assistant Attorney General ID - [auto]Assistant Attorney General ID - tech Lab Interpretation Abnormal (test code = 92357-3) [facility]/ REFLEX URINE [id number] 06:56:00 Test Item Value Reference Range Interpretation Comments COLOR (BEAKER) (test code = 470) Light Yellow CLARITY (BEAKER) (test code = Cloudy 469) SPECIFIC GRAVITY UA (BEAKER) 1.012 1.001-1.035 (test code = 468) PH UA (BEAKER) (test code = 467) 7.5 5.0-8.0 PROTEIN UA (BEAKER) (test code = 20 mg/dL Negative A 464) GLUCOSE UA (BEAKER) (test code = Negative Negative 365) KETONES UA (BEAKER) (test code = Negative Negative 371) BILIRUBIN UA (BEAKER) (test code Negative Negative = 462) BLOOD UA (BEAKER) (test code = Moderate Negative A 461) NITRITE UA (BEAKER) (test code = Negative Negative 465) LEUKOCYTE ESTERASE UA (BEAKER) Large Negative A (test code = 466) UROBILINOGEN UA (BEAKER) (test 0.2 mg/dL 0.2-1.0 code = 463) RBC UA (BEAKER) (test code = 11 /HPF 519) WBC UA (BEAKER) (test code = 293 /HPF 520) AMORPHOUS CRYSTALS (BEAKER) Moderate (test code = 1584) YEAST (BEAKER) (test code = Many 1585) SOURCE(BEAKER) (test code = 2795) Assistant Attorney General ID - [auto]Assistant Attorney General ID - [id number] 06:54:00 Test Item Value Reference Range Interpretation Comments PTT (test code = 78342-5) 30.3 See_Comment [ Automated message] The system HCDC generated this result transmitted ref erence range: 22.5 - 3 6.0 seconds. The re ference range was not u sed to interpret this result as normal/abnor mal. Lab Interpretation (test Normal code = 47492-4) [facility] HospitalPROTHROMBIN TIME/[id number] 06:54:00 Test Item Value Reference Range Interpretation Comments PROTIME (BEAKER) (test code = 13.8 seconds 11.9-14.2 759) INR (BEAKER) (test code = 370) 1.09 <=5.90 Effective 08/02/2018: PT Reference Range ChangeNew: 11.9-14.2 Previous: 11.7- 14.7RECOMMENDED COUMADIN/WARFARIN INR THERAPY RANGESSTANDARD DOSE: 2.0-3.0 Includes: PROPHYLAXIS for venous thrombosis, systemic embolization; TREATMENT for venous thrombosis and/or pulmonary embolus.HIGH RISK: Target INR is2.5-3.5 for patients wiht mechanical heart valves.[id number] 06:54:00 Test Item Value Reference Range Interpretation Comments PARTIAL THROMBOPLASTIN TIME 30.3 seconds 22.5-36.0 (BEAKER) (test code = 760) RAD, CHEST, 1 VIEW, NON [id number] 06:51:00Reason for exam:->ETT placementShould this be performed at the bedside?->Yes [facility] 1935 Sex: MFINAL REPORT CLINICAL INDICATION: Endotracheal tube positioning Comparison: 12/29/2019 The tip of an endotracheal tube is above the kira at the level of the inferior clavicular heads. The cardiomediastinal contours are stable. Central pulmonary vascular congestion and bilateral parenchymal and pleural opacities are unchanged. There is no pneumothorax. Signed: Gerry Sinah Verified Date/Time: 12/29/2019 06:51:17 TSH/Free T4 If Indicated 2019-12-29 06:47:00 Test Item Value Reference Range Interpretation Comments TSH (test code = 1.830 See_Comment [Automated 06101-0) message] The system which generated this result transmit dena reference range : 0.350 - 4.940 uIU/mL. The reference range was not used to interpret this result as normal/abnormal . JETT (test code = JETT) Assistant Attorney General ID - EDASI Lab Interpretation Normal (test code = 57886-2) [facility]TSH[facility]FREE T4 IF [id number] 06:47:00 Test Item Value Reference Range Interpretation Comments THYROID STIMULATING HORMONE 1.830 uIU/mL 0.350-4.940 (BEAKER) (test code = 772) Assistant Attorney General ID - EDASITroponin [id number] 06:40:00 Test Item Value Reference Range Interpretation Comments Troponin I (test code = 0.13 ng/mL 0-0.03 H 89609-0) JETT (test code = JETT) Troponin I (TnI) levels must be interpreted in the context of the presenting symptoms and the clinical findings. Elevated TnI levels indicate myocardial damage, but are not specific for ischemic heart disease. Elevated TnI levels are seen in patients with other cardiac conditions (including myocarditis and congestive heart failure), and slight TnI elevations occur in patients with other conditions, including sepsis, renal failure, acidosis, acute neurological disease, and persistent tachyarrhythmia.Opera tor ID - EDASI Lab Interpretation (test Abnormal code = 67643-8) [facility] HospitalTROPONIN [id number] 06:40:00 Test Item Value Reference Range Interpretation Comments TROPONIN I (BEAKER) (test code = 0.13 ng/mL 0.00-0.03 H 397) Troponin I (TnI) levels must be interpreted in the context of the presenting symptoms and the clinical findings. Elevated TnI levels indicate myocardial damage, but are not specific for ischemic heart disease. Elevated TnI levels are seen in patients with other cardiac conditions (including myocarditis and congestive heart failure), and slight TnI elevations occur in patients with other conditions, including sepsis, renal failure, acidosis, acute neurological disease, and persistent tachyarrhythmia.Assistant Attorney General ID - EDASITROPOJORGE LN [id number] 06:36:00 Test Item Value Reference Range Interpretation Comments TROPONIN I (BEAKER) (test code = 0.12 ng/mL 0.00-0.03 H 397) Troponin I (TnI) levels must be interpreted in the context of the presenting symptoms and the clinical findings. Elevated TnI levels indicate myocardial damage, but are not specific for ischemic heart disease. Elevated TnI levels are seen in patients with other cardiac conditions (including myocarditis and congestive heart failure), and slight TnI elevations occur in patients with other conditions, including sepsis, renal failure, acidosis, acute neurological disease, and persistent tachyarrhythmia.Assistant Attorney General ID - EDASICBC W/PLT COUNT & AUTO [id number] 04:56:00 Test Item Value Reference Range Interpretation Comments WHITE BLOOD CELL COUNT (BEAKER) 15.3 K/ L 3.5-10.5 H (test code = 775) RED BLOOD CELL COUNT (BEAKER) 5.14 M/ L 4.63-6.08 (test code = 761) HEMOGLOBIN (BEAKER) (test code = 15.3 GM/DL 13.7-17.5 410) HEMATOCRIT (BEAKER) (test code = 48.5 % 40.1-51.0 411) MEAN CORPUSCULAR VOLUME (BEAKER) 94.4 fL 79.0-92.2 H (test code = 753) MEAN CORPUSCULAR HEMOGLOBIN 29.8 pg 25.7-32.2 (BEAKER) (test code = 751) MEAN CORPUSCULAR HEMOGLOBIN CONC 31.5 GM/DL 32.3-36.5 L (BEAKER) (test code = 752) RED CELL DISTRIBUTION WIDTH 12.4 % 11.6-14.4 (BEAKER) (test code = 412) PLATELET COUNT (BEAKER) (test 155 K/CU MM 150-450 code = 756) MEAN PLATELET VOLUME (BEAKER) 10.9 fL 9.4-12.4 (test code = 754) NUCLEATED RED BLOOD CELLS 0 /100 WBC 0-0 (BEAKER) (test code = 413) NEUTROPHILS RELATIVE PERCENT 79 % (BEAKER) (test code = 429) LYMPHOCYTES RELATIVE PERCENT 18 % (BEAKER) (test code = 430) MONOCYTES RELATIVE PERCENT 1 % (BEAKER) (test code = 431) EOSINOPHILS RELATIVE PERCENT 1 % (BEAKER) (test code = 432) BASOPHILS RELATIVE PERCENT 0 % (BEAKER) (test code = 437) NEUTROPHILS ABSOLUTE COUNT 12.11 K/ L 1.78-5.38 H (BEAKER) (test code = 670) LYMPHOCYTES ABSOLUTE COUNT 2.76 K/ L 1.32-3.57 (BEAKER) (test code = 414) MONOCYTES ABSOLUTE COUNT (BEAKER) 0.18 K/ L 0.30-0.82 L (test code = 415) EOSINOPHILS ABSOLUTE COUNT 0.17 K/ L 0.04-0.54 (BEAKER) (test code = 416) BASOPHILS ABSOLUTE COUNT (BEAKER) 0.04 K/ L 0.01-0.08 (test code = 417) IMMATURE GRANULOCYTES-RELATIVE 0 % 0-1 PERCENT (BEAKER) (test code = 2801) TROPONIN [id number] 04:43:00 Test Item Value Reference Range Interpretation Comments TROPONIN I (BEAKER) (test code = 0.01 ng/mL 0.00-0.03 397) Troponin I (TnI) levels must be interpreted in the context of the presenting symptoms and the clinical findings. Elevated TnI levels indicate myocardial damage, but are not specific for ischemic heart disease. Elevated TnI levels are seen in patients with other cardiac conditions (including myocarditis and congestive heart failure), and slight TnI elevations occur in patients with other conditions, including sepsis, renal failure, acidosis, acute neurological disease, and persistent tachyarrhythmia.Assistant Attorney General ID - EDASICOMPREHENSIVE METABOLIC [id number] 04:37:00 Test Item Value Reference Range Interpretation Comments TOTAL PROTEIN 6.7 gm/dL 6.0-8.3 (BEAKER) (test code = 770) ALBUMIN (BEAKER) 3.9 g/dL 3.5-5.0 (test code = 1145) ALKALINE PHOSPHATASE 76 U/L 40-150 (BEAKER) (test code = 346) BILIRUBIN TOTAL 1.3 mg/dL 0.2-1.2 H (BEAKER) (test code = 377) SODIUM (BEAKER) (test 140 meq/L 136-145 code = 381) POTASSIUM (BEAKER) 3.7 meq/L 3.5-5.1 (test code = 379) CHLORIDE (BEAKER) 108 meq/L 98-107 H (test code = 382) CO2 (BEAKER) (test 22 meq/L 22-29 code = 355) BLOOD UREA NITROGEN 17 mg/dL 7-21 (BEAKER) (test code = 354) CREATININE (BEAKER) 0.81 mg/dL 0.57-1.25 (test code = 358) GLUCOSE RANDOM 146 mg/dL 70-105 H (BEAKER) (test code = 652) CALCIUM (BEAKER) 8.3 mg/dL 8.4-10.2 L (test code = 697) AST (SGOT) (BEAKER) 30 U/L 5-34 (test code = 353) ALT (SGPT) (BEAKER) 27 U/L 6-55 (test code = 347) EGFR (BEAKER) (test 90 mL/min/1.73 ESTIMA DENA GFR IS code = 1092) sq m NOT ACCURATE CREATININE CLEARANCE IN PREDICTING GLOMERULAR FILTRATION RATE . ESTIMATED GFR I S NOT APPLICABLE FOR DIALYSIS PATIEN TS. Assistant Attorney General ID - [id number] 04:37:00 Test Item Value Reference Range Interpretation Comments MAGNESIUM (BEAKER) (test code = 1.7 mg/dL 1.6-2.6 627) Assistant Attorney General ID - [id number] 04:37:00 Test Item Value Reference Range Interpretation Comments PHOSPHORUS (BEAKER) (test code = 3.7 mg/dL 2.3-4.7 604) Assistant Attorney General ID - EDASIRAD, CHEST, 1 VIEW, NON [id number] 04:27:00Reason for exam:->ETT positionShould this be performed at the bedside?->Yes [facility] 1935 Sex: MFINAL REPORT CLINICAL INDICATION: Support lines. Comparison: The tip of an endotracheal tube is in good position above the kira at the level of the midclavicular heads. The cardiomediastinal contours are stable. Bilateral parenchymal and pleural opacities are unchanged. There is no pneumothorax. Signed: Gerry Sinha MDReport Verified Date/Time: 12/29/2019 04:27:00 SARS-CoV2/RT-PCR (Asymptomatic ONLY)2019-12-29 04:15:00 Test Item Value Reference Range Interpretation Comments SARS-COV2/RT-PCR Negative Not Detected, (test code = Negative, See 71988-0) external report for linked test SARS-COV-2 [facility] PERFORMING LAB (test code = 72290-2) JETT (test code = Negative result for this JETT) test determines that SARS-CoV-2 RNA was not present in the specimen above the Limit of Detection (LOD). However, Negative results do not preclude SARS-CoV-2 infection and should not be used as the sole basis for treatment or patient management decisions. Negative results must be combined with clinical observations, patient history, and epidemiological information. A false negative result may occur if a specimen is improperly collected, transported or handled. A false negative result should be considered if patient's recent exposures or clinical presentation indicate that COVID-19 (SARS-CoV-2) is likely and diagnostic tests for other causes of illness are negative. Re-testing should be considered in cases of suspected false negatives. The limit of detection for this assay is 800 copies/mL. This SARS CoV-2 test is a real-time RT-PCR test intended for the qualitative detection of nucleic acid from SARS-CoV-2 in a nasopharyngeal swab specimen collected from individuals suspected of COVID-19 by their healthcare provider. This test has not been Food and Drug Administration (FDA) cleared or approved. This is a modified version of an approved Emergency Use Authorization (EUA) and is in the process of review by the FDA. Once authorized by the FDA, the issued EUA will be effective until the declaration that circumstances exist justifying the authorization of the emergency use of in vitro diagnostic tests for detection and/or diagnosis of COVID-19 is terminated under Section 564(b)(2) of the Act or the EUA is revoked under Section 564(g) of the Act. Fact Sheet for Healthcare Providers:https://www.[employer]/sites/default/f jessica/product/documents/F act_Sheet_HC_Providers_L onl_DILM-IrA-1.pdf Fact Sheet for Healthcare Patients:https://www.[employer]/sites/default/fi les/product/documents/Fa ct_Sheet_Patients_Lyra_S ARS-CoV-2.pdf Performing Laboratory:[facility] [place] [address] [facility])2019-12-29 04:15:00 Test Item Value Reference Range Interpretation Comments SARS-COV2/RT-PCR (test Negative Not Detected, Negative, code = 3759593) See external report for linked test SARS-COV-2 PERFORMING LAB [facility] (test code = 7759217) Negative result for this test determines that SARS-CoV-2 RNA was not present in the specimen above the Limit of Detection (LOD). However, Negative results do not preclude SARS-CoV-2 infection and should not be used as the sole basis for treatment or patient management decisions. Negative results mustbe combined with clinical observations, patient history, and epidemiological information. A false negative result may occur if a specimen is improperly collected, transported or handled. A false negative result should be considered if patient's recent exposures or clinical presentation indicate that COVID-19 (SARS-CoV-2) is likely and diagnostic tests for other causes of illness are negative. Re-testing should be considered in cases of suspected false negatives.The limit of detection for this assay is 800 copies/mL.This SARS CoV-2 test is a real-time RT-PCR test intended for the qualitative detection of nucleic acid from SARS-CoV-2 in a nasopharyngeal swab specimen collected from individuals susp ected of COVID-19 by their healthcare provider.This test has not been Food and Drug Administration (FDA) cleared or approved. This is a modified version of an approved Emergency Use Authorization (EUA) and is in the process of review by the FDA. Once authorized by the FDA, the issued EUA will be effective until the declaration that circumstances exist justifying the authorization of the emergency use of in vitro diagnostic tests for detection and/or diagnosis of COVID-19 is terminated under Section 564(b)(2) of the Act or the EUA is revoked under Section 564(g) of the Act.Fact Sheet for Healthcare Providers:https://www.[employer]/sites/default/files/product/documents/Fact_Shee t_HR_Xldnaxvlv_Odjm_YWPI-VjQ-5.pdfFact Sheet for Healthcare Patients:https://www.W-loc[employer]idel.com/sites/default/files/product/ documents/Qtrq_Swidb_Mxonfyhp_Jrlp_IBWB-WbS-4.pdfPerforming Laboratory:[facility], [place] [address]SGW-Btvlt gases, [id number] 04:14:00 Test Item Value Reference Range Interpretation Comments Temp. Celsius-POC (test 98.5 code = 1834) FIO2-POC (test code = 60 1835) pH, Arterial-POC (test 7.285 7.350-7.450 L code = 1836) PCO2, Arterial-POC 53.5 See_Comment H [Automat ed message] (test code = 1837) The syste m which generated this result transmit dena reference range : 35.0 - 45.0 mm Hg. The reference r nela was not used to interpret this result as normal/abnormal . PO2, Arterial-POC (test 66.0 See_Comment L [Au tomated message] code = 1838) The system whic h generated this result transmit dena reference range : 80.0 - 90.0 mm Hg. The reference r nela was not used to interpret this result as normal/abnormal . SO2, Arterial-POC (test 90.0 % 96-97 L code = 1839) HCO3, Arterilal-POC 25.5 meq/L 21-29 (test code = 1840) BE, Arterial-POC (test -1.0 meq/L -2-3 : DORA DENA AT [facility] code = 1841) [address] [place] [address], [address]: Assistant Attorney General/Techni cory ID = [id number] for DONNELL GERMAIN Lab Interpretation Abnormal (test code = 43596-9) [facility]-Calcium [id number] 04:14:00 Test Item Value Reference Range Interpretation Comments POC-Calcium Ionized 1.18 mmol/L 1.12-1.27 : TESTED AT [facility] (test code = 1536) [address] [place] [address], [address]: Assistant Attorney General/Techni prosper n ID = [id number] or DONNELL GERMAIN Lab Interpretation (test Normal code = 30599-8) [facility]-[id number] 04:14:00 Test Item Value Reference Range Interpretation Comments POC-Potassium (test code 3.6 meq/L 3.6-5.5 : T VAIBHAVD AT [facility] = 1540) [address] [place] [address], [address]: Assistant Attorney General/Techni cory ID = [id number] for DONNELL GERMAIN Lab Interpretation (test Normal code = 38033-0) [facility]-[id number] 04:14:00 Test Item Value Reference Range Interpretation Comments POC-Sodium (test code = 141 meq/L 135-148 : TE STED AT [facility] 1542) [address] [facility], [address] 30: Assistant Attorney General/Techni cory ID = [id number] for DONNELL GERMAIN Lab Interpretation (test Normal code = 93778-8) [facility]-[id number] 04:14:00 Test Item Value Reference Range Interpretation Comments POC-Glucose (test code = 145 mg/dL 70-110 H : T ESTED AT [facility] 1855) [address] [place] [address], [address]: Assistant Attorney General/Techni cory ID = [id number] for DONNELL GERMAIN Lab Interpretation (test Abnormal code = 21244-5) [facility]-[id number] 04:14:00 Test Item Value Reference Range Interpretation Comments POC-Hemoglobin (test code 16.3 g/dL 13-16.8 : TESTED AT [facility] = 1856) [address] [place] [address], [address]: Assistant Attorney General/Techni cory ID = [id number] for DONNELL GERMAIN Lab Interpretation (test Normal code = 44972-8) [facility]-[id number] 04:14:00 Test Item Value Reference Range Interpretation Comments POC-Hematocrit (test code = 48 % 40-50 : 1857) Assistant Attorney General/Techni cory ID = [id number] for DONNELL GERMAIN Lab Interpretation (test Normal code = 99097-6) [facility]-BLOOD GASES, [id number] 04:14:00 Test Item Value Reference Range Interpretation Comments TEMP, CELSIUS-POC 98.5 (BEAKER) (test code = 1834) FIO2-POC (BEAKER) 60 (test code = 1835) PH, ARTERIAL-POC 7.285 7.350-7.450 L (BEAKER) (test code = 1836) PCO2, ARTERIAL-POC 53.5 mm Hg 35.0-45.0 H (BEAKER) (test code = 1837) PO2, ARTERIAL-POC 66.0 mm Hg 80.0-90.0 L (BEAKER) (test code = 1838) SO2, ARTERIAL-POC 90.0 % 96.0-97.0 L (AKER) (test code = 1839) HCO3, ARTERIAL-POC 25.5 meq/L 21.0-29.0 ([facility]) (test code = 1840) BASE EXCESS, -1.0 meq/L -2.0-3.0 : TESTED AT [facility] [address] ARTERIAL-POC [facility], ([facility]) (test code 22462: = 1841) Assistant Attorney General/Techni cory ID = [id number] for CR DONNELL HERRERA WSOT-[id number] 04:14:00 Test Item Value Reference Range Interpretation Comments POC-SODIUM ([facility]) 141 meq/L 135-148 : TESTED AT [facility] 6720 (test code = 1542) [place], [address]: Assistant Attorney General/Techni cory ID = [id number] for DONNELL GERMAIN [id number] 04:14:00 Test Item Value Reference Range Interpretation Comments POC-POTASSIUM 3.6 meq/L 3.6-5.5 : TESTED AT [facility] 67 ([facility]) (test code [facility], = 1540) [address]: Assistant Attorney General/Techni cory ID = [id number] for DONNELL GERMAIN [id number] 04:14:00 Test Item Value Reference Range Interpretation Comments POC-HEMOGLOBIN 16.3 g/dL 13.0-16.8 : TESTED AT [facility] 67 ([facility]) (test code [facility], = 1856) [address]: Assistant Attorney General/Techni cory ID = [id number] for DONNELL GERMAIN [id number] 04:14:00 Test Item Value Reference Range Interpretation Comments POC-HEMATOCRIT 48 % 40-50 : Assistant Attorney General/Te chnician ID = ([facility]) (test code = 822495 for DONNELL GERMAIN 1857) POCT-CALCIUM [id number] 04:14:00 Test Item Value Reference Range Interpretation Comments POC-CALCIUM IONIZED 1.18 mmol/L 1.12-1.27 : TESTED AT [facility] ([facility]) (test code = [address] [facility] [address] [place], [address]: Assistant Attorney General/Techni cory ID = [id number] for DONNELL GERMAIN [id number] 04:14:00 Test Item Value Reference Range Interpretation Comments POC-GLUCOSE (BEAKER) 145 mg/dL 70-110 H : TESTE D AT [facility] 6720 (test code = 1855) [place], [address]: Assistant Attorney General/Techni cory ID = [id number] for DONNELL GERMAIN CBC W/PLT COUNT & AUTO [id number] 23:29:00 Test Item Value Reference Range Interpretation Comments WHITE BLOOD CELL COUNT (BEAKER) 13.1 K/ L 3.5-10.5 H (test code = 775) RED BLOOD CELL COUNT (BEAKER) 4.75 M/ L 4.63-6.08 (test code = 761) HEMOGLOBIN (BEAKER) (test code = 14.2 GM/DL 13.7-17.5 410) HEMATOCRIT (BEAKER) (test code = 44.2 % 40.1-51.0 411) MEAN CORPUSCULAR VOLUME (BEAKER) 93.1 fL 79.0-92.2 H (test code = 753) MEAN CORPUSCULAR HEMOGLOBIN 29.9 pg 25.7-32.2 (BEAKER) (test code = 751) MEAN CORPUSCULAR HEMOGLOBIN CONC 32.1 GM/DL 32.3-36.5 L (BEAKER) (test code = 752) RED CELL DISTRIBUTION WIDTH 12.2 % 11.6-14.4 (BEAKER) (test code = 412) PLATELET COUNT (BEAKER) (test 164 K/CU MM 150-450 code = 756) MEAN PLATELET VOLUME (BEAKER) 10.6 fL 9.4-12.4 (test code = 754) NUCLEATED RED BLOOD CELLS 0 /100 WBC 0-0 (BEAKER) (test code = 413) NEUTROPHILS RELATIVE PERCENT 73 % (BEAKER) (test code = 429) LYMPHOCYTES RELATIVE PERCENT 19 % (BEAKER) (test code = 430) MONOCYTES RELATIVE PERCENT 6 % (BEAKER) (test code = 431) EOSINOPHILS RELATIVE PERCENT 2 % (BEAKER) (test code = 432) BASOPHILS RELATIVE PERCENT 0 % (BEAKER) (test code = 437) NEUTROPHILS ABSOLUTE COUNT 9.54 K/ L 1.78-5.38 H (BEAKER) (test code = 670) LYMPHOCYTES ABSOLUTE COUNT 2.46 K/ L 1.32-3.57 (BEAKER) (test code = 414) MONOCYTES ABSOLUTE COUNT (BEAKER) 0.74 K/ L 0.30-0.82 (test code = 415) EOSINOPHILS ABSOLUTE COUNT 0.25 K/ L 0.04-0.54 (BEAKER) (test code = 416) BASOPHILS ABSOLUTE COUNT (BEAKER) 0.05 K/ L 0.01-0.08 (test code = 417) IMMATURE GRANULOCYTES-RELATIVE 1 % 0-1 PERCENT (BEAKER) (test code = 2801) BASIC METABOLIC [id number] 23:07:00 Test Item Value Reference Range Interpretation Comments SODIUM (BEAKER) 141 meq/L 136-145 (test code = 381) POTASSIUM (BEAKER) 4.1 meq/L 3.5-5.1 (test code = 379) CHLORIDE (BEAKER) 108 meq/L 98-107 H (test code = 382) CO2 (BEAKER) (test 23 meq/L 22-29 code = 355) BLOOD UREA NITROGEN 20 mg/dL 7-21 (BEAKER) (test code = 354) CREATININE (BEAKER) 0.91 mg/dL 0.57-1.25 (test code = 358) GLUCOSE RANDOM 116 mg/dL 70-105 H (BEAKER) (test code = 652) CALCIUM (BEAKER) 8.8 mg/dL 8.4-10.2 (test code = 697) EGFR (BEAKER) (test 79 mL/min/1.73 ESTIMA DENA GFR IS code = 1092) sq m NOT ACCURATE CREATININE CLEARANCE IN PREDICTING GLOMERULAR FILTRATION RATE . ESTIMATED GFR I S NOT APPLICABLE FOR DIALYSIS PATIEN TS. Assistant Attorney General ID - DBRAD, CHEST, 1 VIEW, NON [id number] 22:49:00Reason for exam:->pre-anesthesiaShould this be performed at the bedside?->Yes [facility] 1935 Sex: MFINAL REPORT TECHNIQUE: Frontal and lateral views of the chest. I NDICATION: pre-anesthesia. COMPARISON: CTA from 02/03/2015. FINDINGS: LINES/TUBES: None. LUNGS: Thepatchy opacity of the left chest are indeterminate but most likely pleural plaque. PLEURA: Bilateralpleural plaques HEART AND MEDIASTINUM: The cardiac silhouette is normal in size. Prior transarterialaortic valve replacement. SOFT TISSUES AND BONES: Prior anterior cervical disc fusion. Prior median sternotomy. IMPRESSION: The bilateral patchy opacities over both hemithoraces are indeterminate but could be pleural plaque en face. Infection is considered less likely. The bilateral calcified pleuralplaque could be due to prior asbestos exposure. Signed: Theresa Cotter MDReport Verified Date/Time: 12/06 22:49:33 Reading Location: [address] Transitional Reading Room EKG-SCANNED 2019-12-28 00:00:00Ordered by an unspecified provider.[facility]
[2020-07-20 11:00] LABS: Absolute Lymphocytes (CBC) 2.2 K/uL (0.7-4.9); Basophils % 1.3 % (0-1.3); Hematocrit 40.6 % (39.6-49.0); Lymphocytes % 27.9 % (15.3-44.8); MPV 8.9 fL (7.6-11.3); RBC Red Blood Cell Count 4.63 M/uL (4.33-5.43)
--- NOTE | 2020-07-20 11:03 | RAD REPORT ---
EXAM DESCRIPTION: RAD - Chest Single View - 07/20/2020 10:52 am CLINICAL HISTORY: CHEST PAIN COMPARISON: Portable chest August 2018, lung base images from CT abdomen May 2018 TECHNIQUE: AP portable chest image was obtained 07/20/2020 10:52 am . FINDINGS: Patient has prominent left greater than right calcified pleural plaquing. Lung volumes are slightly reduced from the comparison. Overall interstitial pattern is fractionally increased. Focall y more prominent left midlung field opacification may be the affects of the low lung volume and dense pleural plaquing. Mid left lung field pneumonia is not entirely excluded. Heart size is prominent bearing increased even when adjusting for slightly shallow inspiratory effor t. Central vasculature is increased in prominence. No measurable pleural effusion and no pneumothorax . No acute bony abnormality seen. No acute aortic findings suspected. IMPRESSION: Heart, vasculature and lung markings suggest a mild failure or volume overload. Correlat ion is needed with clinical presentation. Increased opacification in the mid left lung field may be the affects of more shallow inspiratory eff ort and dense overlying calcified pleural plaques. Mid left lung field pneumonia cannot be entirely e xcluded.
[2020-07-20 11:14] LABS: Albumin 3.4 g/dL (3.4-5.0); Bilirubin Total 0.4 mg/dL (0.2-1.0); Protein, Total 6.7 g/dL (6.4-8.2)
[2020-07-20 11:16] LABS: Bilirubin Direct < 0.1 mg/dL (0-0.2); Magnesium 2.3 mg/dL (1.8-2.4); NT PRO-BNP 556 pg/mL (<450); Troponin (Emerg Dept Use Only) < 0.02 ng/mL (0.0-0.045)
[2020-07-20 11:48] LABS: Protime INR 18.2
--- NOTE | 2020-07-20 12:20 | EDPHYS ---
Physician Documentation [facility] Name: Rusty Yarbrough Age: 85 yrs Sex: Male : 1935 Arrival Date: 07/20/2020 Time: 09:35 Bed 5 Private MD: Shawn Perry E ED Physician Ike Emery HPI: 07/20 12:11 This 85 yrs old Male presents to ER via Ambulatory with complaints of Nose ma2 Bleed. 12:11 The patient presents with a nose bleed. Onset: The symptoms/episode began/occurred ma2 gradually, 1 day(s) ago. Associated signs and symptoms: Pertinent negatives: blurred vision, cough, fever, nausea. Severity of symptoms: At their worst the symptoms were very mild in the emergency department the symptoms have resolved. The patient has not experienced similar symptoms in the past. 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 bleeding stopped at this time. . Historical: - Allergies: 10:07 Benadryl; ca1 10:07 Enalapril; ca1 - Home Meds: 19:57 diclofenac sodium 75 mg oral TbEC 1 tab 2 times per day [Active]; [place] 5-325 mg Oral lp1 tab every 8 hours [Active]; warfarin 6 mg Oral tab 1 tab once daily [Active]; - PMHx: 10:07 "heart valve replacement"; Aortic Stenosis; Ataxia; acute, resolved now; bleeding ca1 ulcers; CAD; COPD; dyspnea; fatigue; Hyperlipidemia; Hypertension; Hypokalemia; melena; Myocardial infarction; syncope; Tachycardia; TIA; Vertigo; - Immunization history:: Client reports receiving the 2nd dose of the Covid vaccine, Client reports receiving the 1st dose of the Covid vaccine, Pneumococcal vaccine is up to date. - Social history:: Smoking status: Patient denies any tobacco usage or history of. Patient/guardian denies using alcohol, street drugs, The patient lives with family. - Family history:: not pertinent. ROS: 12:11 Constitutional: Negative for fever, chills, and weight loss. ma2 12:11 All other systems are negative. Exam: 12:11 Constitutional: This is a well developed, well nourished patient who is awake, alert, ma2 and in no acute distress. Head/Face: Normocephalic, atraumatic. Eyes: Pupils equal round and reactive to light, extra-ocular motions intact. Lids and lashes normal. Conjunctiva and sclera are non-icteric and not injected. Cornea within normal limits. Periorbital areas with no swelling, redness, or edema. ENT: Nares patent. No nasal discharge, no septal abnormalities noted. Tympanic membranes are normal and external auditory canals are clear. Oropharynx with no redness, swelling, or masses, exudates, or evidence of obstruction, uvula midline. Mucous membranes moist. Neck: Trachea midline, no thyromegaly or masses palpated, and no cervical lymphadenopathy. Supple, full range of motion without nuchal rigidity, or vertebral point tenderness. No Meningismus. Chest/axilla: Normal chest wall appearance and motion. Nontender with no deformity. No lesions are appreciated. Cardiovascular: Regular rate and rhythm with a normal S1 and S2. No gallops, murmurs, or rubs. Normal PMI, no JVD. No pulse deficits. Respiratory: Lungs have equal breath sounds bilaterally, clear to auscultation and percussion. No rales, rhonchi or wheezes noted. No increased work of breathing, no retractions or nasal flaring. Abdomen/GI: Soft, non-tender, with normal bowel sounds. No distension or tympany. No guarding or rebound. No evidence of tenderness throughout. Vital Signs: 10:04 BP 141 / 72; Pulse 68; Resp 16 S; Temp 97.1(TE); Pulse Ox 96% on R/A; Weight 79.38 kg ca1 (R); Height 5 ft. 9 in. (175.26 cm) (R); Pain 0/10; 11:16 BP 149 / 78; Pulse 55; Resp 17; Pulse Ox 95% ; bp 12:00 BP 173 / 86; Pulse 56; Resp 16; Pulse Ox 95% ; bp 13:00 BP 167 / 73; Pulse 53; Resp 16; Pulse Ox 96% ; bp 14:00 BP 163 / 81; Pulse 54; Resp 19; Pulse Ox 95% ; bp 15:00 BP 171 / 79; Pulse 54; Resp 18; Pulse Ox 096% ; bp 16:00 BP 170 / 74; Pulse 56; Resp 18; Pulse Ox 98% ; bp 17:00 Pulse 56; Resp 17; Pulse Ox 96% ; bp 19:45 BP 164 / 81; Pulse 67; Resp 18; Temp 98(O); Pulse Ox 97% on R/A; lp1 10:04 Body Mass Index 25.84 (79.38 kg, 175.26 cm) ca1 MDM: 10:20 Patient medically screened. nd2 12:11 Differential diagnosis: sinusitis, spontaneous epistaxis. Data reviewed: vital signs, ma2 nurses notes. Counseling: I had a detailed discussion with the patient and/or guardian regarding: the historical points, exam findings, and any diagnostic results supporting the discharge/admit diagnosis, the presence of at least one elevated blood pressure reading (>120/80) during this emergency department visit, the need for further work-up and treatment in the hospital. ED course: INR is 18, no active bleeding at this time. discussed with rag production worker dr. Gavin. He advise to hold off warfarin and admit patient to obs for INR trending. Dr. gavin advised against vit k or any other reversal as risk of cva or dangerous thrombus exceeds benefits. discussed with hospitalist Prosper . 14:52 ED course: after evaluating patient, dr. gavin recommends 1 mg IV vit K. nd07/20 10:21 Order name: PT-INR [facility] 07/20 10:21 Order name: Ptt, Activated [facility] 07/20 10:21 Order name: CMP; Complete Time: 11:24 [facility] 07/20 10:21 Order name: CBC with Diff; Complete Time: 11:24 [facility] 07/20 10:22 Order name: Protime (+INR); Complete Time: 11:50 EDMS 07/20 10:22 Order name: PTT, Activated Partial Thromb; Complete Time: 11:50 EDMS 07/20 10:36 Order name: Magnesium; Complete Time: 11:24 [facility] 07/20 10:36 Order name: NT PRO-BNP; Complete Time: 11:24 [facility] 07/20 10:36 Order name: Troponin (emerg Dept Use Only); Complete Time: 11:24 [facility] 07/20 10:55 Order name: Bilirubin Direct; Complete Time: 11:24 EDMS 07/20 13:10 Order name: COVID-19 : Document "Date of Symptom Onset" if Symptomatic. aa5 07/20 15:15 Order name: SARS-COV-2 RT PCR [facility] 07/20 10:36 Order name: XRAY Chest (1 view); Complete Time: 11:08 [facility] 07/20 10:36 Order name: EKG; Complete Time: 10:37 [facility] 07/20 10:36 Order name: Cardiac monitoring; Complete Time: 10:44 [facility] 07/20 10:36 Order name: EKG - Nurse/Tech; Complete Time: 20:15 [facility] 07/20 10:36 Order name: IV Saline Lock; Complete Time: 10:44 [facility] 07/20 10:36 Order name: Labs collected and sent; Complete Time: 10:42 [facility] 07/20 10:36 Order name: O2 Per Protocol; Complete Time: 10:42 [facility] 07/20 10:36 Order name: O2 Sat Monitoring; Complete Time: 10:41 [facility] 07/20 17:58 Order name: Creatine Phosphokinase [facility] 07/20 17:58 Order name: Troponin I [facility] 07/20 17:58 Order name: Lipid Profile [facility] 07/20 18:43 Order name: Hemoglobin A1c EDMD Administered Medications: 11:58 Not Given (n/a): Vitamin K1 (phytonadione) 10 mg IM once [facility] 15:00 Drug: Vitamin K1 (phytonadione) 1 mg Route: IM; Site: affected area; bp 16:45 Follow up: Response: No adverse reaction bp Disposition: 07/20/20 12:19 Hospitalization ordered by Mark Aldana for Observation. Preliminary diagnosis is Other specified abnormal findings of blood chemistry - ELEVATED INR . - Bed requested for Telemetry/MedSurg (observation). - Status is Observation. lp1 - Condition is Stable. - Problem is new. - Symptoms are unchanged. Signatures: Dispatcher [employer] EDMS Karyn Foley RN RN aa5 Maranda Francois RN RN lp1 Jonelle Damico RN RN cg Nathaniel Patricio RN RN bp Ike Emery MD MD ma2 Carmen Garay RN RN ca1 Corrections: (The following items were deleted from the chart) 10:55 10:36 BASIC METABOLIC PANEL+C.LAB.BRZ ordered. EDMS EDMS 10:55 10:36 HEPATIC FUNCTION+C.LAB.BRZ ordered. EDMS EDMS 15:17 12:19 Hospitalization Ordered by Mark Aldana DO for Observation. Preliminary aa5 diagnosis is Other specified abnormal findings of blood chemistry - ELEVATED INR . Bed requested for Telemetry/MedSurg (observation). Status is Observation. Condition is Stable. Problem is new. Symptoms are unchanged. ma2 19:36 15:17 07/20/2020 12:19 Hospitalization Ordered by Mark Katya DO for Observation. cg Preliminary diagnosis is Other specified abnormal findings of blood chemistry - ELEVATED INR . Bed requested for [facility] ER HOLD. Status is Observation. Condition is Stable. Problem is new. Symptoms are unchanged. aa5 20:15 19:36 07/20/2020 12:19 Hospitalization Ordered by Mark Katya OLVERA for Observation. lp1 Preliminary diagnosis is Other specified abnormal findings of blood chemistry - ELEVATED INR . Bed requested for Telemetry/MedSurg (observation). Status is Observation. Condition is Stable. Problem is new. Symptoms are unchanged. cg
--- NOTE | 2020-07-20 12:20 | ER ---
Nurse's Notes [facility] Name: Rusty Yarbrough Age: 85 yrs Sex: Male : 1935 Arrival Date: 07/20/2020 Time: 09:35 Bed 5 Private MD: Shawn Perry E Diagnosis: Other specified abnormal findings of blood chemistry-ELEVATED INR Presentation: 07/20 10:04 Chief complaint: Patient's son or daughter states: Daughter: he has been having ca1 nosebleed since midnight. He is on Warfarin since December 2019. Coronavirus screen: Client denies travel out of the [place] in the last 14 days. At this time, the client does not indicate any symptoms associated with coronavirus-19. Ebola Screen: Patient negative for fever greater than or equal to 101.5 degrees Fahrenheit, and additional compatible Ebola Virus Disease symptoms Patient denies exposure to infectious person. Patient denies travel to an Ebola-affected area in the 21 days before illness onset. No symptoms or risks identified at this time. Initial Sepsis Screen: Does the patient meet any 2 criteria? No. Patient's initial sepsis screen is negative. Does the patient have a suspected source of infection? No. Patient's initial sepsis screen is negative. Risk Assessment: Do you want to hurt yourself or someone else? Patient reports no desire to harm self or others. Onset of symptoms was July 20, 2020. 10:04 Method Of Arrival: Ambulatory ca1 10:04 Acuity: GAYLE 3 ca1 Triage Assessment: 10:10 General: Appears in no apparent distress. uncomfortable, Behavior is cooperative, bp appropriate for age, anxious. Pain: Denies pain. EENT: Nares with bleeding noted. Neuro: No deficits noted. Cardiovascular: No deficits noted. Respiratory: No deficits noted. GI: No signs and/or symptoms were reported involving the gastrointestinal system. : No signs and/or symptoms were reported regarding the genitourinary system. Derm: No deficits noted. Musculoskeletal: No deficits noted. Historical: - Allergies: 10:07 Benadryl; ca1 10:07 Enalapril; ca1 - Home Meds: 19:57 diclofenac sodium 75 mg oral TbEC 1 tab 2 times per day [Active]; [employer] 5-325 mg Oral lp1 tab every 8 hours [Active]; warfarin 6 mg Oral tab 1 tab once daily [Active]; - PMHx: 10:07 "heart valve replacement"; Aortic Stenosis; Ataxia; acute, resolved now; bleeding ca1 ulcers; CAD; COPD; dyspnea; fatigue; Hyperlipidemia; Hypertension; Hypokalemia; melena; Myocardial infarction; syncope; Tachycardia; TIA; Vertigo; - Immunization history:: Client reports receiving the 2nd dose of the Covid vaccine, Client reports receiving the 1st dose of the Covid vaccine, Pneumococcal vaccine is up to date. - Social history:: Smoking status: Patient denies any tobacco usage or history of. Patient/guardian denies using alcohol, street drugs, The patient lives with family. - Family history:: not pertinent. Screenin:10 Abuse screen: Denies threats or abuse. Denies injuries from another. Nutritional bp screening: No deficits noted. Tuberculosis screening: No symptoms or risk factors identified. Fall Risk None identified. Assessment: 10:10 General: SEE TRIAGE NOTE. bp 11:19 Reassessment: Patient appears in no apparent distress at this time. Patient and/or bp family updated on plan of care and expected duration. Pain level reassessed. Patient is alert, oriented x 3, equal unlabored respirations, skin warm/dry/pink. NO EPISTAXIS NOTED CURRENTLY. 13:00 Reassessment: Patient appears in no apparent distress at this time. Patient and/or bp family updated on plan of care and expected duration. Pain level reassessed. Patient is alert, oriented x 3, equal unlabored respirations, skin warm/dry/pink. ADMIT INITIATED. 15:00 Reassessment: Patient appears in no apparent distress at this time. No changes from bp previously documented assessment. Patient and/or family updated on plan of care and expected duration. Pain level reassessed. 17:00 Reassessment: Patient appears in no apparent distress at this time. No changes from bp previously documented assessment. Patient and/or family updated on plan of care and expected duration. Pain level reassessed. Patient is alert, oriented x 3, equal unlabored respirations, skin warm/dry/pink. ADMIT IN PROCESS. 19:46 Reassessment: Patient appears in no apparent distress at this time. Patient lying in lp1 bed, no active nose bleeding; family at bedside, aware of pending admission. Vital Signs: 10:04 BP 141 / 72; Pulse 68; Resp 16 S; Temp 97.1(TE); Pulse Ox 96% on R/A; Weight 79.38 kg ca1 (R); Height 5 ft. 9 in. (175.26 cm) (R); Pain 0/10; 11:16 BP 149 / 78; Pulse 55; Resp 17; Pulse Ox 95% ; bp 12:00 BP 173 / 86; Pulse 56; Resp 16; Pulse Ox 95% ; bp 13:00 BP 167 / 73; Pulse 53; Resp 16; Pulse Ox 96% ; bp 14:00 BP 163 / 81; Pulse 54; Resp 19; Pulse Ox 95% ; bp 15:00 BP 171 / 79; Pulse 54; Resp 18; Pulse Ox 096% ; bp 16:00 BP 170 / 74; Pulse 56; Resp 18; Pulse Ox 98% ; bp 17:00 Pulse 56; Resp 17; Pulse Ox 96% ; bp 19:45 BP 164 / 81; Pulse 67; Resp 18; Temp 98(O); Pulse Ox 97% on R/A; lp1 10:04 Body Mass Index 25.84 (79.38 kg, 175.26 cm) ca1 ED Course: 09:35 Patient arrived in ED. am2 09:35 Shawn Perry MD is Private Physician. am2 10:06 Triage completed. ca1 10:07 Arm band placed on right wrist. ca1 10:10 Patient has correct armband on for positive identification. Bed in low position. Call bp light in reach. Side rails up X2. Adult w/ patient. 10:20 Ike Emery MD is Attending Physician. ma2 10:22 Nathaniel Patricio, RN is Primary Nurse. bp 10:44 Inserted saline lock: 22 gauge in right forearm, using aseptic technique. Blood bp collected. 10:51 XRAY Chest (1 view) In Process Unspecified. EDMS 12:19 Mark Aldana DO is Hospitalizing Provider. ma2 16:41 No provider procedures requiring assistance completed. Patient admitted, IV remains in bp place. 19:18 Primary Nurse role handed off by Nathaniel Patricio, RN mw2 20:15 Maranda Francois, HENRRY is Primary Nurse. lp1 Administered Medications: 11:58 Not Given (n/a): Vitamin K1 (phytonadione) 10 mg IM once ma2 15:00 Drug: Vitamin K1 (phytonadione) 1 mg Route: IM; Site: affected area; bp 16:45 Follow up: Response: No adverse reaction bp Outcome: 12:19 Decision to Hospitalize by Provider. ma2 19:46 Condition: stable lp1 19:46 Instructed on the need for admit. 19:57 Admitted to Med/surg via wheelchair, room 215, with chart, Report called to HENRRY Hernandez lp1 20:15 Patient left the ED. lp1 Signatures: Dispatcher [employer] EDMS Maranda Francois, RN RN lp1 Netta Mcclelland Brian RN RN Ike Robledo MD MD ma2 Reese Gamboa 2 Carmen Garay RN RN ca1
[2020-07-20] MEDS ORDERED: HYDRALAZINE HCL 20 MG/ML VIAL IV PRN (14:07)
--- NOTE | 2020-07-20 14:19 | P.HP ---
Certification for Inpatient Patient admitted to: Observation With expected LOS: <2 Midnights Patient will require the following post-hospital care: None Practitioner: I am a practitioner with admitting privileges, knowledge of patient current condition, hospital course, and medical plan of care. Services: Services provided to patient in accordance with Admission requirements found in Title 42 Section 412.3 of the Code of Federal Regulations Patient History Date of Service: 07/20/20 Reason for admission: Epistasis History of Present Illness: Patient is an 85-year-old male with a past medical history significant for Aortic Stenosis; CAD; COPD; Hyperlipidemia; Hypertension; OK, TIA and Vertigo who presents with complaint of right nare bleeding which started yesterday night. Family reported that patient had his Coumadin dose increased from 5 mg to 7.5 mg 2 days ago by his technical programs manager. Patient takes his medications based on coloring of the medication and appeared to have been taking two 5 mg tablets of warfarin for the past 2 days. Patient denies any other signs and symptoms. Symptoms are aggravated or relieved by nothing. Family decided to bring patient to the hospital due to worsening symptom. Off note, family reported that patient is non-compliant with his medications. Allergies enalapril [Enalapril] Allergy (Mild, Verified 12/01/17 15:54) Itching/Hives/Rash diphenhydramine HCl [From Benadryl] Allergy (Verified 12/01/17 15:54) Unknown Home Medications: Aspirin [Aspir-Low] 81 mg PO DAILY #30 tab 02/23/18 Pantoprazole [Protonix Tab*] 40 mg PO BIDAC #60 tab 02/23/18 Tramadol HCl [Ultram] 50 mg PO Q6H PRN #30 tablet 02/23/18 Azithromycin 500 mg PO BID #28 tablet 03/12/18 Cefuroxime [Ceftin] 250 mg PO BID #28 tab 03/12/18 - Past Medical/Surgical History Diabetic: No -: Hyperlipidemia -: CAD with prior CABG -: COPD -: PROSTATE CA -: History CVA, TIA -: Severe aortic stenosis with history of bioprosthetic valve -: Hinduism -: HTN -: OK -: GI Ulcer with bleeding -: CABG -: C-Spine disc surgery -: Asthma -: Bioprosthetic valve replacement, aorta Psychosocial/ Personal History: Patient has children. - Family History Father -: Lung disease, Stroke Notes: passed in 89 from stroke - Social History Smoking Status: Never smoker Alcohol use: No CD- Drugs: No Caffeine use: Yes Review of Systems General: Unremarkable Eyes: Unremarkable ENT: Other (Nasal bleeding ) Respiratory: Unremarkable Cardiovascular: Unremarkable Gastrointestinal: Unremarkable Genitourinary: Unremarkable Musculoskeletal: Unremarkable Integumentary: Unremarkable Neurological: Unremarkable Lymphatics: Unremarkable Physical Examination - Physical Exam General: Alert, In no apparent distress, Oriented x3 HEENT: Atraumatic, PERRLA, Mucous membr. moist/pink, EOMI, Sclerae nonicteric Neck: Supple, 2+ carotid pulse no bruit, No LAD, Without JVD or thyroid abnormality Respiratory: Clear to auscultation bilaterally, Normal air movement Cardiovascular: Regular rate/rhythm, Normal S1 S2 Capillary refill: <2 Seconds Gastrointestinal: Normal bowel sounds, No tenderness Musculoskeletal: No clubbing, No tenderness Integumentary: No rashes Neurological: Normal gait, Normal speech, Normal strength at 5/5 x4 extr, Normal tone, Normal affect Lymphatics: No axilla or inguinal lymphadenopathy External genitalia: Deferred Rectal: Deferred - Studies Laboratory Data (last 24 hrs) 07/20/20 10:45: WBC 7.90, Hgb 13.3 L, Hct 40.6, Plt Count 184 07/20/20 10:45: Sodium 143, Potassium 4.0, BUN 24 H, Creatinine 0.86, Glucose 115 H, Total Bilirubin 0.4, AST 19, ALT 27, Alkaline Phosphatase 66 07/20/20 10:45: PT 215.5 H, INR 18.20 H*, APTT 91.1 H 07/20/20 10:36: Sodium Cancelled, Potassium Cancelled, BUN Cancelled, Creatinine Cancelled, Glucose Cancelled, Magnesium 2.3, Total Bilirubin Cancelled, AST Cancelled, ALT Cancelled, Alkaline Phosphatase Cancelled Assessment and Plan - Plan --Supratherapeutic INR. Press Feeder Broomcorn consulted. Recommends holding warfarin and no Vitamin K. Will reassess INR in the a.m.. Further management per Press Feeder Broomcorn. . --Epistasis. Controlled. Will hold warfarin. Continue supportive care -- History of Ventricular thrombus. INR currently elevated. Will resume anticoagulation when INR is within normal limits.Telemetry. Further management per technical programs manager. --Hypertension. Stable. Will manage BP with hydralazine p.r.n. --HLD. Continue statin --COPD. Stable. Continue neb TX with albuterol prn --GERD. Continue Protonix --Hx of CAD, OK and TIA. Continue statin. --DVT prophylaxis with scds. Discharge Plan: Home Plan to discharge in: 48 Hours - Advance Directives Does patient have a Living Will: No Does patient have a Durable POA for Healthcare: No - Code Status/Comfort Care Code Status Assessed: Yes Critical Care: No
[2020-07-20] MEDS ORDERED: VITAMIN K (ADULT) 10 MG/ML ONE (15:20)
[2020-07-20] MEDS ORDERED: ONDANSETRON 4 MG/2 ML VIAL IV PRN (17:12)
[2020-07-20] MEDS ORDERED: ACETAMINOPHEN 500 MG TAB PO PRN (17:12)
[2020-07-20] MEDS ORDERED: TRAMADOL HCL 50 MG TAB PO PRN (17:12)
[2020-07-20 17:58] LABS: Creatine Phosphokinase 33 U/L (39-308); HDL Cholesterol 29 mg/dL (40-60); LDL Cholesterol, Calculated 119 (<130); Troponin I < 0.02 ng/mL (0.0-0.045)
[2020-07-20] MEDS ORDERED: ALBUTEROL 2.5 MG/3 ML NEB SOL NEB PRN (19:06)
--- NOTE | 2020-07-20 19:12 | CON ---
Date of Consultation: 07/20/2020 Reason For Consultation: Elevated INR in the setting of being on Coumadin. History Of Present Illness: This is an 85-year-old male with history of aortic valve replacement, CO PD, coronary artery disease, dyslipidemia, hypertension, history of LA, and TIA. He was placed on Co umadin for possible thrombosis of the aortic valve; however, it is not clear. The patient comes [facility] with nosebleed, and his hemoglobin was 13.3 and INR was 18.2. He had a nasal packing, apparently controlled his bleed and doing well. He has no complaints. Past Medical History: As outlined above in the HPI. Medications: Refer to reconciliation sheet for detailed list. Allergies: ENALAPRIL, DIPHENHYDRAMINE. Family History: No premature coronary artery disease or cancer. Social History: Does not smoke or drink. Does not use any drugs. Review of Systems: All systems reviewed and they were negative except for what is mentioned in HPI. Physical Examination: Vital Signs: Reviewed and are stable. Head and Neck: Pupils are equal, reactive to light. Intact eye movements. No JVD. No cervical lym phadenopathy. Neck: Supple. Thyroid is not enlarged. Lungs: Clear to auscultation bilaterally. No rhonchi, rales, or crackles. No accessory muscle use. Heart: Regular rate and rhythm with aortic systolic murmur. Abdomen: Soft, nontender. Bowel sounds positive. No organomegaly. No masses or hernia. No rigidi ty or rebound. Extremities: No edema, clubbing, or cyanosis. Intact pulses. Skin: No rash noted. Neurologic: Alert, awake, oriented x3. No acute focal deficits appreciated. Investigations: Hemoglobin 13.3. INR is 18.2. Creatinine is 0.86. Assessment And Recommendation: Supratherapeutic INR with nosebleed. No other signs of bleeding. Bl eeding has been controlled with nasal packing at this point. It is not clear the exact reason of samm ng on Coumadin. As per family, there was a thrombus on the aortic valve. However, at this point, IN R is very high. I recommend to give a very low dose of vitamin K 1 or 2 mg IV and re-evaluate INR to roger and carefully monitor for any bleeding. Recommend to observe the patient overnight and reasse ss labs in the morning after vitamin K dose is given. We will obtain records from the office to furt her know more about the history. If the patient did not have an echo, recommend to obtain 1 to furth er assess the heart structure and valve. Thank you for the consult. MARCELA Voice ID: [id number] Report ID: [id number]
[2020-07-20 20:56] VITALS: BMI 24.8
[2020-07-20 23:36] LABS: Urine Appearance CLOUDY (Clear); Urine Bilirubin NEGATIVE (Negative); Urine Blood 2+ (Negative); Urine Color YELLOW (Yellow); Urine Glucose NEGATIVE (Negative); Urine Protein NEGATIVE (Negative); Urine Specific Gravity <=1.005 (1.005-1.030); Urine Urobilinogen 0.2 mg/dL (0.2-1.0); Urine pH 7.5 (5.0-7.0)
[2020-07-20 23:40] LABS: Urine Microscopic Reflex ORDER UMIC
[2020-07-21 01:36] LABS: Urine Bacteria <20 /HPF (NONE SEEN); Urine RBC 20-50 /HPF (NONE SEEN)
[2020-07-21 05:50] LABS: Absolute Lymphocytes (CBC) 2.1 K/uL (0.7-4.9); Basophils % 1.2 % (0-1.3); Hematocrit 39.2 % (39.6-49.0); Lymphocytes % 31.8 % (15.3-44.8); MPV 8.8 fL (7.6-11.3); RBC Red Blood Cell Count 4.52 M/uL (4.33-5.43)
[2020-07-21 06:13] LABS: BUN Blood Urea Nitrogen 20 mg/dL (7-18); Bicarbonate 27 mmol/L (21-32); Glucose Level 84 mg/dL (74-106); Sodium Level 142 mmol/L (136-145)
[2020-07-21 06:18] LABS: Protime INR 4.42
[2020-07-21] MEDS ORDERED: CEFTRIAXONE 1 GM/NS 50 ML 1 GM/50 ML BAG IV SCH (09:00)
[2020-07-21] MEDS: CEFTRIAXONE/SWI 1gm 1 GM/10 ML SYR IVP SCH (09:58)
--- NOTE | 2020-07-21 16:39 | P.PN ---
Subjective Date of Service: 07/21/20 Chief Complaint: Epistasis Subjective: No new changes (feeling ok, reports some slight nose bleed overnight but stopped again. no other bleeding. otherwise feeling well. Does endorse some recent burning pain of "bladder/where ulrich is", with cloudy foul smelling urine yesterday/today) Review of Systems 10-point ROS is otherwise unremarkable Physical Examination - Vital Signs Temperature: 97.4 F Blood Pressure: 148/73 Pulse: 72 Respirations: 17 Pulse Ox (%): 95 Assessment & Plan Physician Review Additional Text: Physical exam General: In the ED HEENT: Normal conjunctiva, sclerae anicteric [id number]; dried blood in bilateral nares CV: Regular rate/rhythm, no murmur Pulm: Clear auscultation bilaterally, nonlabored respirations on room air Abdomen: Soft, nontender, nondistended Skin: no rash Problem List Supratherapeutic INR Epistaxis 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 Start Rocephin for empiric treatment for UTI -the patient has chronic indwelling Ulrich catheter, states this is exchanged every 2 weeks -Urine culture pending -continue home medications VTE: Supratherapeutic INR Code: full Dispo: anticipate dc home in 24-48hrs, check INR tomorrow Time Spent Managing Pts Care (In Minutes): 35
[2020-07-22 05:57] LABS: Absolute Lymphocytes (CBC) 2.3 K/uL (0.7-4.9); Hematocrit 39.9 % (39.6-49.0); Lymphocytes % 36.1 % (15.3-44.8); RBC Red Blood Cell Count 4.59 M/uL (4.33-5.43)
[2020-07-22 06:15] LABS: C-Reactive Protein 4.97 mg/L (<3.00); Potassium 3.9 mmol/L (3.5-5.1); Protime INR 3.55
[2020-07-22] MEDS ORDERED: POTASSIUM CL SA 10 MEQ TAB PO ONE (09:00)
[2020-07-22] MEDS: CEFTRIAXONE/SWI 1gm 1 GM/10 ML SYR IVP SCH (09:00)
[2020-07-22 11:22] VITALS: O2SAT 91
[2020-07-22 12:19] VITALS: BP 122/73; TEMP 98.2
--- NOTE | 2020-07-22 13:02 | P.DS ---
Admission Date: 07/20/20 Discharge Date: 07/22/20 Disposition: ROUTINE DISCHARGE Discharge Condition: FAIR Reason for Admission: Epistasis Consultations: Cardiology - Problems (1) Epistaxis Current Visit: Yes Status: Acute (2) H/O heart valve replacement with bioprosthetic valve Current Visit: Yes Status: Acute (3) Left ventricular thrombosis Current Visit: Yes Status: Acute (4) CAD (coronary artery disease) Onset Date: 02/21/18 Current Visit: No Status: Chronic Qualifiers: Coronary Disease-Associated Artery/Lesion type: [place] artery [place] vs. transplanted heart: [place] heart Associated angina: without angina Qualified Code(s): I25.10 - Atherosclerotic heart disease of [place] coronary artery without angina pectoris (5) Supratherapeutic INR Current Visit: Yes Status: Acute Brief History of Present Illness: 85-year-old gentleman with a history of aortic stenosis status post bioprosthetic valve replacement, history of CAD, COPD, hypertension, HI, TIA and vertigo was brought to the emergency department due to epistaxis. Patient has been taking Coumadin for ventricular trembles. 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 There is a report patient had been noncompliant with his medications. Family suspected patient might have been taking double dose of his Coumadin. His INR was 18 in the emergency department. Patient was hospitalized for further management. Hospital Course: Patient admitted to the medical floor. His Coumadin was held, cardiology consulted, patient was seen by Dr. Gavin I was given low dose vitamin K. his INR improved to 3.5. The epistaxis resolved. Patient currently has no complain. No hematuria, no hemoptysis or hematemesis. Patient deemed stable for discharge. Case discussed with Dr. Gavin. Patient is discharged with Coumadin 5 mg daily. He will follow at Dr. Chaparro's office within the next 2 days for INR check. He will follow with cardiology within 1 week. Vital Signs/Physical Exam: Temp Pulse Resp BP Pulse Ox 98.2 F 70 16 122/73 94 07/22/20 12:00 07/22/20 12:00 07/22/20 12:00 07/22/20 12:00 07/22/20 12:00 General: Alert, In no apparent distress, Oriented x3 Neck: JVD not distended Respiratory: Clear to auscultation bilaterally, Normal air movement Cardiovascular: No edema, Regular rate/rhythm, Normal S1 S2 Gastrointestinal: Normal bowel sounds, Soft and benign, Non-distended Musculoskeletal: No swelling Integumentary: No rashes Neurological: Normal strength at 5/5 x4 extr Laboratory Data at Discharge: WBC 6.50 K/uL (4.3-10.9) 07/22/20 05:02 Hgb 13.5 g/dL (13.6-17.9) L 07/22/20 05:02 Hct 39.9 % (39.6-49.0) 07/22/20 05:02 Plt Count 176 K/uL (152-406) 07/22/20 05:02 PT 41.3 SECONDS (9.5-12.5) H 07/22/20 05:02 INR 3.55 07/22/20 05:02 APTT 58.6 SECONDS (24.3-36.9) H 07/21/20 05:20 Sodium 143 mmol/L (136-145) 07/22/20 05:02 Potassium 3.9 mmol/L (3.5-5.1) 07/22/20 05:02 BUN 22 mg/dL (7-18) H 07/22/20 05:02 Creatinine 0.88 mg/dL (0.55-1.3) 07/22/20 05:02 Glucose 86 mg/dL (74-106) 07/22/20 05:02 Magnesium 2.3 mg/dL (1.8-2.4) 07/20/20 10:36 Total Bilirubin 0.4 mg/dL (0.2-1.0) 07/20/20 10:45 AST 19 U/L (15-37) 07/20/20 10:45 ALT 27 U/L (12-78) 07/20/20 10:45 Alkaline Phosphatase 66 U/L (45-117) 07/20/20 10:45 Troponin I < 0.02 ng/mL (0.0-0.045) 07/20/20 17:25 Triglycerides 276 mg/dL (<150) H 07/20/20 17:25 Cholesterol 203 mg/dL (<200) H 07/20/20 17:25 HDL Cholesterol 29 mg/dL (40-60) L 07/20/20 17:25 Cholesterol/HDL Ratio 7.00 07/20/20 17:25 Home Medications: Hydrocodone/Acetaminophen [Hydrocodone-Acetamin 5-325 mg] 1 each PO TID 07/20/20 Warfarin Sodium 5 mg PO DAILY #30 tablet 07/22/20 New Medications: Warfarin Sodium 5 mg PO DAILY #30 tablet Physician Discharge Instructions: Follow up for INR check at Dr. Chaparro's office on 07/24/2020. Followup: Shawn Perry MD [Primary Care Provider] - 1-2 Weeks Ramon Chaparro MD [ACTIVE - CAN ADMIT] - (within 1 week.) Time spent managing pt's care (in minutes): 40
== END 2020-07-22 14:10 | disposition home or self-care (01) | DRG 918 ==
LOC: ER 09:33 → ERHOLD 13:59 → OBSVTOIN 14:57 → 2ND 19:57
PROVIDERS: ADMIT Hospitalist; ATTEND Internal Medicine
DX: T45.511A Poisoning by anticoagulants, accidental (unintentional), initial encounter (principal); T83.518A Infection and inflammatory reaction due to other urinary catheter, initial encounter; D68.32 Hemorrhagic disorder due to extrinsic circulating anticoagulants; N39.0 Urinary tract infection, site not specified; R04.0 Epistaxis; I10 Essential (primary) hypertension; E78.5 Hyperlipidemia, unspecified; I25.10 Atherosclerotic heart disease of native coronary artery without angina pectoris; K21.9 Gastro-esophageal reflux disease without esophagitis; J44.9 Chronic obstructive pulmonary disease, unspecified; I25.2 Old myocardial infarction; Z88.8 Allergy status to other drugs, medicaments and biological substances; Z79.01 Long term (current) use of anticoagulants; Z79.899 Other long term (current) drug therapy; Z91.14 Patient's other noncompliance with medication regimen; Z95.2 Presence of prosthetic heart valve; Z86.73 Personal history of transient ischemic attack (TIA), and cerebral infarction without residual deficits; Z79.82 Long term (current) use of aspirin; Z95.1 Presence of aortocoronary bypass graft; Z85.46 Personal history of malignant neoplasm of prostate; Z20.822 Contact with and (suspected) exposure to COVID-19
CPT/HCPCS: 36415; 71045; 80048; 80053; 80061; 81003; 81015; 82248; 82550; 83036; 83735; 83880; 84145; 84484; 85025; 85610; 85730; 86140; 87040; 87077; 87086; 87088; 87186; 93005; 96372; 99285; G0378; J0360; J0696; J3430; U0003

== ENCOUNTER 2021-03-06 13:19 | Emergency (ER) | payer OTHER ==
--- OUTSIDE RECORDS SUMMARY | 2021-03-06 13:28 | XMS REPORT | Continuity of Care Document ---
:1935 Author Organization [facility] t Address [address] [place] [address] Care Team Providers Name Role Phone Vicky E Primary Care Physician RUBEN Attending Clinician Unavailable ADRIANA MOLINA Attending Clinician Unavailable Juanita GAGE L Attending Clinician Kory MACIEL S Attending Clinician Robertibade_O_AH Attending Clinician Unavailable Doctor Unassigned, Name Attending Clinician Unavailable Joyce GAGE Attending Clinician JOYCE Attending Clinician Unavailable Nurse, Surgery Gu Attending Clinician Unavailable Singer OLVERA Attending Clinician Manny MOTION PICTURE DIRECTOR, A Attending Clinician Rm, Surg Spec Procedure Attending Clinician Unavailable Ige-[place]_J_AH Attending Clinician Unavailable LITTLE Attending Clinician Unavailable RUBEN Admitting Clinician Unavailable ADRIANA MOLINA Admitting Clinician Unavailable Ajibade_O_AH Admitting Clinician Unavailable [facility] Admitting Clinician Unavailable Ige[place]_J_AH Admitting Clinician Unavailable Payers Payer Name Policy Type Policy Number Effective Date Expiration Date S musa HOOD [id number] 2018 PLUS CLASSIC/VALUE 00:00:00 AARP/MEDICARE [id number] 2015 COMPLETE 00:00:00 [employer] MEDICARE [id number] 2019 ADV 00:00:00 [employer] [facility] [place] - [id number] 2019 SANAPLUS 00:00:00 (MEDICARE REPLACEMENT/ADVANT AGE - HMO) Problems Condition Condition Condition Status Onset Resolution Last Treating Co mments Source Name Details Category Date Date Treatment Clinician Date Neuropathy Neuropathy Problem Active [facility] due to Due to -12 Family diabetes Diabetes 00:00: Practi c mellitus Mellitus 00 e Overactive Overactive Problem Active [facility] bladder Bladder -12 Family 00:00: Practic 00 e Hyperlipid Hyperlipid Problem Active [facility] emia emia 1-04 Family 00:00: Practic 00 e Hypertensi Hypertensi Problem Active [facility] ve ve 1-04 Family disorder Disorder 00:00: Practi c 00 e 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 arrhythmia Arrhythmia 1-04 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 e lung e Lung 00:00: Practic disease Disease 00 e Benign Benign Problem Active [facility] prostatic Prostatic 1-04 Fami ly hyperplasi Hyperplasi 00:00: Pr actic a a 00 e History of History of Problem Active [facility] cerebrovas Cerebrovas 1-04 [facility] robin cular 00:00: Practic accident Accident 00 e Long-term Long-term Problem Active Hannah zoe current Current 04 Family use of Use of 00:00: Practic anticoagul Anticoagul 00 e ant ant Long-term Long-term Problem Active Hannah zoe current Current -04 Family use of Use of 00:00: Practic opiate Opiate 00 e analgesic Analgesic drug Drug Chest pain Chest pain Disease Active Overview : [facility] 2-03 [facility] ity of 00:00: g of this note Medical might be Branch different from the original. 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 Allergies, Adverse Reactions, Alerts Allergy Allergy Status Severity Reaction(s) Onset Inactive Treating Comm ents Source Name Type Date Date Clinician DIPHENHY Allergy Active 2019-03 [facility] DRAMINE 0-23 HCL 00:00: 00 ENALAPRI Allergy Active Hives 2014-03 [facility] L 03-18 00:00: 00 NO KNOWN Drug Active Univers ALLERGIE Class ity of S [facility] [place] [facility] Social History Social Habit Start Date Stop Date Quantity Comments Source Exposure to Not sure [facility] SARS-CoV-2 (event) Medica l Branch Sex Assigned At [birth year] [facility] 00:00:00 00:00:00 Medical Branch Smoking Status Start Date Stop Date Source Unknown if ever smoked [facility] Medications Ordered Filled Start Stop Current Ordering Indication Dosage Frequency Signature Comments Components Source Medication Medication Date Date Medication? Clinician (SIG) Name Name diclofenac 2020-03 Yes [id number] 75mg Take 1 [facility] 75 mg EC 03-07 9109 tablet by ity of tablet 00:00: mouth 2 (two) Medical times Branch daily with meals. diclofenac 2020-03 Yes [id number] 75mg Take 1 [facility] 75 mg EC 1-01 9109 tablet by ity of tablet 00:00: mouth (two) Medical times Branch daily with meals. diclofenac 2020-0 1- No [id number] 75mg Take 1 [facility] 75 mg EC 8-10 09-10 9109 tablet by ity o f tablet 00:00: 04:59 mouth 2 [place] 00 :00 (two) Medical times Branch daily with meals for 30 days. diclofenac 2020-0 Yes [id number] 75mg Take 1 [facility] 75 mg EC 7-08 9109 tablet by ity of tablet 00:00: mouth (two) Medical times Branch daily with meals. diclofenac 2020-0 Yes [id number] 75mg Take 1 [facility] 75 mg EC 7-08 9109 tablet by ity of tablet 00:00: mouth (two) Medical times Branch daily with meals. diclofenac 2020-0 Yes [id number] 75mg Take 1 [facility] 75 mg EC 7-08 9109 tablet by ity of tablet 00:00: mouth (two) Medical times Branch daily with meals. diclofenac 2020-0 1- No [id number] 75mg Take 1 [facility] 75 mg EC 7-08 11- 9109 tablet by ity o f tablet 00:00: 00:00 mouth [place] 00 :00 (two) Medical times Branch daily with meals. diclofenac 2020-0 Yes [id number] 75mg Take 1 [facility] 75 mg EC 6-10 9109 tablet by ity of tablet 00:00: mouth [place] (two) Medical times Branch daily with meals. diclofenac 2020-0 Yes [id number] 75mg Take 1 [facility] 75 mg EC 6-10 9109 tablet by ity of tablet 00:00: mouth (two) Medical times Branch daily with meals. diclofenac 2020-0 Yes [id number] 75mg Take 1 [facility] 75 mg EC 6-10 9109 tablet by ity of tablet 00:00: mouth [place] (two) Medical times Branch daily with meals. diclofenac 2020-0 Yes [id number] 75mg Take 1 [facility] 75 mg EC 6-10 9109 tablet by ity of tablet 00:00: mouth [place] (two) Medical times Branch daily with meals. diclofenac 2020-0 Yes [id number] 75mg Take 1 [facility] 75 mg EC 6-10 9109 tablet by ity of tablet 00:00: mouth (two) Medical times Branch daily with meals. diclofenac 2021-0 Yes [id number] 75mg Take 1 [facility] 75 mg EC 6-10 9109 tablet by ity of tablet 00:00: mouth (two) Medical times Branch daily with meals. diclofenac 2021-0 Yes 75mg Take 1 Unive rs 75 mg EC 5-05 tablet by ity of tablet 00:00: mouth (two) Medical times Branch daily with meals. diclofenac 2021-0 Yes 75mg Take 1 Unive rs 75 mg EC 5-05 tablet by ity of tablet 00:00: mouth (two) Medical times Branch daily with meals. diclofenac 2021-0 Yes 75mg Take 1 Unive rs 75 mg EC 5-05 tablet by ity of tablet 00:00: mouth (two) Medical times Branch daily with meals. diclofenac 2021-0 Yes 75mg Take 1 Unive rs 75 mg EC 5-05 tablet by ity of tablet 00:00: mouth (two) Medical times Branch daily with meals. diclofenac 2021-0 Yes 75mg Take 1 Unive rs 75 mg EC 5-05 tablet by ity of tablet 00:00: mouth (two) Medical times Branch daily with meals. diclofenac 2021-0 Yes 75mg Take 1 Unive rs 75 mg EC 5-05 tablet by ity of tablet 00:00: mouth (two) Medical times Branch daily with meals. diclofenac 2021-0 Yes 75mg Take 1 Unive rs 75 mg EC 5-05 tablet by ity of tablet 00:00: mouth (two) Medical times Branch daily with meals. diclofenac 2021-0 2021- No [id number] 75mg Take 1 Univers 75 mg EC 3-22 04-22 9109 tablet by ity o f tablet 00:00: 04:59 mouth 00 :00 (two) Medical times Branch daily with meals for 30 days. diclofenac 2021-0 Yes 75mg Take 1 Unive rs 75 mg EC 1-14 tablet by ity of tablet 00:00: mouth (two) Medical times Branch daily with meals. diclofenac 2021-0 Yes 75mg Take 1 Unive rs 75 mg EC 1-14 tablet by ity of tablet 00:00: mouth (two) Medical times Branch daily with meals. diclofenac 2021-0 Yes 75mg Take 1 Unive rs 75 mg EC 1-14 tablet by ity of tablet 00:00: mouth 2 (two) Medical times Branch daily with meals. diclofenac 2021-0 Yes 75mg Take 1 Unive rs 75 mg EC 1-14 tablet by ity of tablet 00:00: mouth (two) Medical times Branch daily with meals. diclofenac 2021-0 Yes 75mg Take 1 Unive rs 75 mg EC 1-14 tablet by ity of tablet 00:00: mouth (two) Medical times Branch daily with meals. diclofenac 2021-0 Yes 75mg Take 1 Unive rs 75 mg EC 1-14 tablet by ity of tablet 00:00: mouth (two) Medical times Branch daily with meals. diclofenac 2021-0 Yes 75mg Take 1 Unive rs 75 mg EC 1-14 tablet by ity of tablet 00:00: mouth (two) Medical times Branch daily with meals. diclofenac 1-0 Yes 75mg Take 1 Unive rs 75 mg EC 1-14 tablet by ity of tablet 00:00: mouth (two) Medical times Branch daily with meals. diclofenac 1-0 Yes 75mg Take 1 Unive rs 75 mg EC 1-14 tablet by ity of tablet 00:00: mouth (two) Medical times Branch daily with meals. diclofenac 2019-03 2020- No [id number] 75mg Take 1 [facility] 75 mg EC 1-23 12-24 9109 tablet by ity o f tablet 00:00: 05:59 mouth 2 [place] 00 :00 (two) Medical times Branch daily with meals for 30 days. diclofenac 2020-0 Yes [id number] 75mg Take 1 Univers 75 mg EC 7-14 9109 tablet by ity of tablet 00:00: mouth 2 (two) Medical times Branch daily with meals. diclofenac 2020-0 Yes [id number] 75mg Take 1 [facility] 75 mg EC 7-14 9109 tablet by ity of tablet 00:00: mouth 2 (two) Medical times Branch daily with meals. diclofenac 2020-0 Yes [id number] 75mg Take 1 [facility] 75 mg EC 7-14 9109 tablet by ity of tablet 00:00: mouth (two) Medical times Branch daily with meals. diclofenac 2020-0 Yes [id number] 75mg Take 1 [facility] 75 mg EC 7-14 9109 tablet by ity of tablet 00:00: mouth [place] (two) Medical times Branch daily with meals. diclofenac 2020-0 Yes [id number] 75mg Take 1 [facility] 75 mg EC 7-14 9109 tablet by ity of tablet 00:00: mouth [place] (two) Medical times Branch daily with meals. diclofenac 2020-0 Yes [id number] 75mg Take 1 [facility] 75 mg EC 7-14 9109 tablet by ity of tablet 00:00: mouth [place] (two) Medical times Branch daily with meals. diclofenac 2020-0 Yes [id number] 75mg Take 1 [facility] 75 mg EC 7-14 9109 tablet by ity of tablet 00:00: mouth [place] (two) Medical times Branch daily with meals. diclofenac 2020-0 Yes [id number] 75mg Take 1 [facility] 75 mg EC 7-14 9109 tablet by ity of tablet 00:00: mouth [place] (two) Medical times Branch daily with meals. diclofenac 2020-0 Yes [id number] 75mg Take 1 [facility] 75 mg EC 7-14 9109 tablet by ity of tablet 00:00: mouth [place] (two) Medical times Branch daily with meals. diclofenac 2020-0 Yes [id number] 75mg Take 1 [facility] 75 mg EC 7-14 9109 tablet by ity of tablet 00:00: mouth [place] (two) Medical times Branch daily with meals. diclofenac 2020-0 Yes [id number] 75mg Take 1 [facility] 75 mg EC 7-14 9109 tablet by ity of tablet 00:00: mouth [place] (two) Medical times Branch daily with meals. diclofenac 2020-0 Yes [id number] 75mg Take 1 [facility] 75 mg EC 7-14 9109 tablet by ity of tablet 00:00: mouth [place] (two) Medical times Branch daily with meals. diclofenac 2020-0 Yes [id number] 75mg Take 1 [facility] 75 mg EC 7-14 9109 tablet by ity of tablet 00:00: mouth [place] (two) Medical times Branch daily with meals. diclofenac 2020-0 Yes [id number] 75mg Take 1 [facility] 75 mg EC 7-14 9109 tablet by ity of tablet 00:00: mouth 2 (two) Medical times Branch daily with meals. diclofenac 2020-0 Yes [id number] 75mg Take 1 [facility] 75 mg EC 7-14 9109 tablet by ity of tablet 00:00: mouth 2 (two) Medical times Branch daily with meals. diclofenac 2020-0 Yes [id number] 75mg Take 1 [facility] 75 mg EC 7-14 9109 tablet by ity of tablet 00:00: mouth 2 (two) Medical times Branch daily with meals. diclofenac 2020-0 Yes [id number] 75mg Take 1 Univers 75 mg EC 7-14 9109 tablet by ity of tablet 00:00: mouth 2 (two) Medical times Branch daily with meals. diclofenac 2020-0 Yes [id number] 75mg Take 1 Univers 75 mg EC 7-14 9109 tablet by ity of tablet 00:00: mouth 2 (two) Medical times Branch daily with meals. diclofenac 2020-0 Yes [id number] 75mg Take 1 [facility] 75 mg EC 7-14 9109 tablet by ity of tablet 00:00: mouth (two) Medical times Branch daily with meals. diclofenac 2020-0 Yes [id number] 75mg Take 1 [facility] 75 mg EC 7-14 9109 tablet by ity of tablet 00:00: mouth 2 (two) Medical times Branch daily with meals. diclofenac 2020-0 Yes [id number] 75mg Take 1 [facility] 75 mg EC 7-14 9109 tablet by ity of tablet 00:00: mouth (two) Medical times Branch daily with meals. amoxicillin 2020-0 Yes [id number] 500mg Take 1 Univers 500 mg 6-28 capsule by ity of capsule 00:00: mouth (three) Medical times Branch daily. amoxicillin 2020-0 Yes [id number] 500mg Take 1 [facility] 500 mg 6-28 capsule by ity of capsule 00:00: mouth 3 (three) Medical times Branch daily. amoxicillin 2020-0 Yes [id number] 500mg Take 1 [facility] 500 mg 6-28 capsule by ity of capsule 00:00: mouth 3 (three) Medical times Branch daily. amoxicillin 2020-0 Yes [id number] 500mg Take 1 [facility] 500 mg 6-28 capsule by ity of capsule 00:00: mouth (three) Medical times Branch daily. amoxicillin 2020-0 Yes [id number] 500mg Take 1 Univers 500 mg 6-28 capsule by ity of capsule 00:00: mouth (three) Medical times Branch daily. amoxicillin 2020-0 Yes [id number] 500mg Take 1 [facility] 500 mg 6-28 capsule by ity of capsule 00:00: mouth (three) Medical times Branch daily. amoxicillin 2020-0 Yes [id number] 500mg Take 1 Univers 500 mg 6-28 capsule by ity of capsule 00:00: mouth (three) Medical times Branch daily. amoxicillin 2020-0 Yes [id number] 500mg Take 1 Univers 500 mg 6-28 capsule by ity of capsule 00:00: mouth (three) Medical times Branch daily. amoxicillin 2020-0 Yes [id number] 500mg Take 1 [facility] 500 mg 6-28 capsule by ity of capsule 00:00: mouth () Medical times Branch daily. amoxicillin 2020-0 Yes [id number] 500mg Take 1 Univers 500 mg 6-28 capsule by ity of capsule 00:00: mouth () Medical times Branch daily. amoxicillin 2020-0 Yes [id number] 500mg Take 1 [facility] 500 mg 6-28 capsule by ity of capsule 00:00: mouth () Medical times Branch daily. amoxicillin 2020-0 Yes [id number] 500mg Take 1 [facility] 500 mg 6-28 capsule by ity of capsule 00:00: mouth () Medical times Branch daily. amoxicillin 2020-0 Yes [id number] 500mg Take 1 Univers 500 mg 6-28 capsule by ity of capsule 00:00: mouth (three) Medical times Branch daily. amoxicillin 2020-0 Yes [id number] 500mg Take 1 Univers 500 mg 6-28 capsule by ity of capsule 00:00: mouth (three) Medical times Branch daily. amoxicillin 2020-0 Yes [id number] 500mg Take 1 [facility] 500 mg 6-28 capsule by ity of capsule 00:00: mouth 3 [place] (three) Medical times Branch daily. amoxicillin 2020-0 Yes [id number] 500mg Take 1 Univers 500 mg 6-28 capsule by ity of capsule 00:00: mouth (three) Medical times Branch daily. amoxicillin 2020-0 Yes [id number] 500mg Take 1 [facility] 500 mg 6-28 capsule by ity of capsule 00:00: mouth (three) Medical times Branch daily. amoxicillin 2020-0 Yes [id number] 500mg Take 1 [facility] 500 mg 6-28 capsule by ity of capsule 00:00: mouth (three) Medical times Branch daily. amoxicillin 2020-0 Yes [id number] 500mg Take 1 Univers 500 mg 6-28 capsule by ity of capsule 00:00: mouth (three) Medical times Branch daily. amoxicillin 2020-0 Yes [id number] 500mg Take 1 [facility] 500 mg 6-28 capsule by ity of capsule 00:00: mouth (three) Medical times Branch daily. amoxicillin 2020-0 Yes [id number] 500mg Take 1 [facility] 500 mg 6-28 capsule by ity of capsule 00:00: mouth (three) Medical times Branch daily. amoxicillin 2020-0 Yes [id number] 500mg Take 1 Univers 500 mg 6-28 capsule by ity of capsule 00:00: mouth (three) Medical times Branch daily. diclofenac 2020-0 Yes 75mg Take 1 Unive rs 75 mg EC 6-26 tablet by ity of tablet 00:00: mouth (two) Medical times Branch daily with meals. diclofenac 2020-0 Yes 75mg Take 1 Unive rs 75 mg EC 6-26 tablet by ity of tablet 00:00: mouth (two) Medical times Branch daily with meals. diclofenac 2020-0 Yes 75mg Take 1 Unive rs 75 mg EC 6-26 tablet by ity of tablet 00:00: mouth (two) Medical times Branch daily with meals. diclofenac 2020-0 Yes 75mg Take 1 Unive rs 75 mg EC 6-26 tablet by ity of tablet 00:00: mouth (two) Medical times Branch daily with meals. diclofenac 2020-0 Yes 75mg Take 1 Unive rs 75 mg EC 6-26 tablet by ity of tablet 00:00: mouth (two) Medical times Branch daily with meals. diclofenac 2020-0 Yes 75mg Take 1 Unive rs 75 mg EC 6-26 tablet by ity of tablet 00:00: mouth (two) Medical times Branch daily with meals. diclofenac 2020-0 Yes 75mg Take 1 Unive rs 75 mg EC 6-26 tablet by ity of tablet 00:00: mouth (two) Medical times Branch daily with meals. diclofenac 2020-0 Yes 75mg Take 1 Unive rs 75 mg EC 6-26 tablet by ity of tablet 00:00: mouth (two) Medical times Branch daily with meals. diclofenac 2020-0 Yes 75mg Take 1 Unive rs 75 mg EC 6-26 tablet by ity of tablet 00:00: mouth (two) Medical times Branch daily with meals. diclofenac 2020-0 Yes 75mg Take 1 Unive rs 75 mg EC 6-26 tablet by ity of tablet 00:00: mouth (two) Medical times Branch daily with meals. diclofenac 2020-0 Yes 75mg Take 1 Unive rs 75 mg EC 6-26 tablet by ity of tablet 00:00: mouth (two) Medical times Branch daily with meals. diclofenac 2020-0 Yes 75mg Take 1 Unive rs 75 mg EC 6-26 tablet by ity of tablet 00:00: mouth (two) Medical times Branch daily with meals. diclofenac 2020-0 Yes 75mg Take 1 Unive rs 75 mg EC 6-26 tablet by ity of tablet 00:00: mouth (two) Medical times Branch daily with meals. diclofenac 2020-0 Yes 75mg Take 1 Unive rs 75 mg EC 6-26 tablet by ity of tablet 00:00: mouth (two) Medical times Branch daily with meals. diclofenac 2020-0 Yes 75mg Take 1 Unive rs 75 mg EC 6-26 tablet by ity of tablet 00:00: mouth (two) Medical times Branch daily with meals. diclofenac 2020-0 Yes 75mg Take 1 Unive rs 75 mg EC 6-26 tablet by ity of tablet 00:00: mouth (two) Medical times Branch daily with meals. diclofenac 2020-0 Yes 75mg Take 1 Unive rs 75 mg EC 6-26 tablet by ity of tablet 00:00: mouth (two) Medical times Branch daily with meals. diclofenac 2020-0 Yes 75mg Take 1 Unive rs 75 mg EC 6-26 tablet by ity of tablet 00:00: mouth (two) Medical times Branch daily with meals. diclofenac 2020-0 Yes 75mg Take 1 Unive rs 75 mg EC 6-26 tablet by ity of tablet 00:00: mouth 2 (two) Medical times Branch daily with meals. diclofenac 2020-0 Yes 75mg Take 1 Unive rs 75 mg EC 6-26 tablet by ity of tablet 00:00: mouth 2 (two) Medical times Branch daily with meals. diclofenac 2020-0 Yes 75mg Take 1 Unive rs 75 mg EC 6-26 tablet by ity of tablet 00:00: mouth (two) Medical times Branch daily with meals. diclofenac 2020-0 Yes 75mg Take 1 Unive rs 75 mg EC 6-26 tablet by ity of tablet 00:00: mouth (two) Medical times Branch daily with meals. diclofenac 2020-0 Yes 75mg Take 1 Unive rs 75 mg EC 6-26 tablet by ity of tablet 00:00: mouth (two) Medical times Branch daily with meals. diclofenac 2020-0 Yes 75mg Take 1 Unive rs 75 mg EC 6-26 tablet by ity of tablet 00:00: mouth (two) Medical times Branch daily with meals. mirabegron 2020-0 2020- No [id number] 25mg Take 1 Univers 25 mg 6-05 07-06 tablet by ity of tablet 00:00: 04:59 mouth [place] 00 :00 daily for Medical 30 days. Branch mirabegron 2020-0 2020- No [id number] 25mg Take 1 Univers 25 mg 6-05 07-06 tablet by ity of tablet 00:00: 04:59 mouth [place] 00 :00 daily for Medical 30 days. Branch mirabegron 2020-0 2020- No [id number] 25mg Take 1 Univers 25 mg 6-05 07-06 tablet by ity of tablet 00:00: 04:59 mouth [place] 00 :00 daily for Medical 30 days. Branch mirabegron 2020-0 2020- No [id number] 25mg Take 1 Univers 25 mg 6-05 07-06 tablet by ity of tablet 00:00: 04:59 mouth [place] 00 :00 daily for Medical 30 days. Branch mirabegron 2020-0 2020- No [id number] 25mg Take 1 Univers 25 mg 6-05 07-06 tablet by ity of tablet 00:00: 04:59 mouth [place] 00 :00 daily for Medical 30 days. Branch mirabegron 2020-0 2020- No [id number] 25mg Take 1 Univers 25 mg 6- 07-06 tablet by ity of tablet 00:00: 04:59 mouth [place] 00 :00 daily for Medical 30 days. Branch diclofenac 2020-0 Yes 75mg Take 1 Unive rs 75 mg EC 4-13 tablet by ity of tablet 00:00: mouth (two) Medical times Branch daily with meals. diclofenac 2020-0 Yes 75mg Take 1 Unive rs 75 mg EC 4-13 tablet by ity of tablet 00:00: mouth (two) Medical times Branch daily with meals. diclofenac 2020-0 Yes 75mg Take 1 Unive rs 75 mg EC 4-13 tablet by ity of tablet 00:00: mouth (two) Medical times Branch daily with meals. diclofenac 2020-0 Yes 75mg Take 1 Unive rs 75 mg EC 4-13 tablet by ity of tablet 00:00: mouth (two) Medical times Branch daily with meals. diclofenac 2020-0 Yes 75mg Take 1 Unive rs 75 mg EC 4-13 tablet by ity of tablet 00:00: mouth (two) Medical times Branch daily with meals. diclofenac 2020-0 Yes 75mg Take 1 Unive rs 75 mg EC 4-13 tablet by ity of tablet 00:00: mouth (two) Medical times Branch daily with meals. diclofenac 2020-0 Yes 75mg Take 1 Unive rs 75 mg EC 4-13 tablet by ity of tablet 00:00: mouth (two) Medical times Branch daily with meals. diclofenac 2020-0 Yes 75mg Take 1 Unive rs 75 mg EC 4-13 tablet by ity of tablet 00:00: mouth (two) Medical times Branch daily with meals. diclofenac 2020-0 Yes 75mg Take 1 Unive rs 75 mg EC 4-13 tablet by ity of tablet 00:00: mouth (two) Medical times Branch daily with meals. diclofenac 2020-0 Yes 75mg Take 1 Unive rs 75 mg EC 4-13 tablet by ity of tablet 00:00: mouth (two) Medical times Branch daily with meals. diclofenac 2020-0 Yes 75mg Take 1 Unive rs 75 mg EC 4-13 tablet by ity of tablet 00:00: mouth (two) Medical times Branch daily with meals. diclofenac 2020-0 Yes 75mg Take 1 Unive rs 75 mg EC 4-13 tablet by ity of tablet 00:00: mouth (two) Medical times Branch daily with meals. diclofenac 2020-0 Yes 75mg Take 1 Unive rs 75 mg EC 4-13 tablet by ity of tablet 00:00: mouth (two) Medical times Branch daily with meals. diclofenac 2020-0 Yes 75mg Take 1 Unive rs 75 mg EC 4-13 tablet by ity of tablet 00:00: mouth (two) Medical times Branch daily with meals. diclofenac 2020-0 Yes 75mg Take 1 Unive rs 75 mg EC 4-13 tablet by ity of tablet 00:00: mouth (two) Medical times Branch daily with meals. diclofenac 2020-0 Yes 75mg Take 1 Unive rs 75 mg EC 4-13 tablet by ity of tablet 00:00: mouth (two) Medical times Branch daily with meals. diclofenac 2020-0 Yes 75mg Take 1 Unive rs 75 mg EC 4-13 tablet by ity of tablet 00:00: mouth (two) Medical times Branch daily with meals. diclofenac 2020-0 Yes 75mg Take 1 Unive rs 75 mg EC 4-13 tablet by ity of tablet 00:00: mouth (two) Medical times Branch daily with meals. diclofenac 2020-0 Yes 75mg Take 1 Unive rs 75 mg EC 4-13 tablet by ity of tablet 00:00: mouth (two) Medical times Branch daily with meals. diclofenac 2020-0 Yes 75mg Take 1 Unive rs 75 mg EC 4-13 tablet by ity of tablet 00:00: mouth (two) Medical times Branch daily with meals. diclofenac 2020-0 Yes 75mg Take 1 Unive rs 75 mg EC 4-13 tablet by ity of tablet 00:00: mouth (two) Medical times Branch daily with meals. diclofenac 2020-0 Yes 75mg Take 1 Unive rs 75 mg EC 4-13 tablet by ity of tablet 00:00: mouth (two) Medical times Branch daily with meals. diclofenac 2020-0 Yes 75mg Take 1 Unive rs 75 mg EC 4-13 tablet by ity of tablet 00:00: mouth (two) Medical times Branch daily with meals. diclofenac 2020-0 Yes 75mg Take 1 Unive rs 75 mg EC 4-13 tablet by ity of tablet 00:00: mouth (two) Medical times Branch daily with meals. diclofenac 2020-0 Yes 75mg Take 1 Unive rs 75 mg EC 4-13 tablet by ity of tablet 00:00: mouth (two) Medical times Branch daily with meals. diclofenac 2020-0 Yes 75mg Take 1 Unive rs 75 mg EC 4-13 tablet by ity of tablet 00:00: mouth (two) Medical times Branch daily with meals. diclofenac 2020-0 2021- No 75mg Take 1 Univ ers 75 mg EC 4-13 -08 tablet by ity o f tablet 00:00: 00:00 mouth 00 :00 (two) Medical times Branch daily with meals. diclofenac 2020-0 Yes 75mg Take 1 [facility] rs 75 mg EC 3-17 tablet by ity of tablet 00:00: mouth (two) Medical times Branch daily with meals. diclofenac 2020-0 Yes 75mg Take 1 [facility] rs 75 mg EC 3-17 tablet by ity of tablet 00:00: mouth (two) Medical times Branch daily with meals. diclofenac 2020-0 Yes 75mg Take 1 [facility] rs 75 mg EC 3-17 tablet by ity of tablet 00:00: mouth (two) Medical times Branch daily with meals. diclofenac 2020-0 Yes 75mg Take 1 [facility] rs 75 mg EC 3-17 tablet by ity of tablet 00:00: mouth (two) Medical times Branch daily with meals. diclofenac 2020-0 Yes 75mg Take 1 [facility] rs 75 mg EC 3-17 tablet by ity of tablet 00:00: mouth (two) Medical times Branch daily with meals. diclofenac 2020-0 Yes 75mg Take 1 [facility] rs 75 mg EC 3-17 tablet by ity of tablet 00:00: mouth (two) Medical times Branch daily with meals. diclofenac 2020-0 Yes 75mg Take 1 [facility] rs 75 mg EC 3-17 tablet by ity of tablet 00:00: mouth (two) Medical times Branch daily with meals. diclofenac 2020-0 Yes 75mg Take 1 [facility] rs 75 mg EC 3-17 tablet by ity of tablet 00:00: mouth (two) Medical times Branch daily with meals. diclofenac 2020-0 Yes 75mg Take 1 [facility] rs 75 mg EC 3-17 tablet by ity of tablet 00:00: mouth (two) Medical times Branch daily with meals. diclofenac 2020-0 Yes 75mg Take 1 [facility] rs 75 mg EC 3-17 tablet by ity of tablet 00:00: mouth (two) Medical times Branch daily with meals. diclofenac 2020-0 Yes 75mg Take 1 [facility] rs 75 mg EC 3-17 tablet by ity of tablet 00:00: mouth (two) Medical times Branch daily with meals. diclofenac 2020-0 Yes 75mg Take 1 [facility] rs 75 mg EC 3-17 tablet by ity of tablet 00:00: mouth (two) Medical times Branch daily with meals. diclofenac 2020-0 Yes 75mg Take 1 [facility] rs 75 mg EC 3-17 tablet by ity of tablet 00:00: mouth (two) Medical times Branch daily with meals. diclofenac 2020-0 Yes 75mg Take 1 [facility] rs 75 mg EC 3-17 tablet by ity of tablet 00:00: mouth (two) Medical times Branch daily with meals. diclofenac 2020-0 Yes 75mg Take 1 [facility] rs 75 mg EC 3-17 tablet by ity of tablet 00:00: mouth (two) Medical times Branch daily with meals. diclofenac 2020-0 Yes 75mg Take 1 [facility] rs 75 mg EC 3-17 tablet by ity of tablet 00:00: mouth (two) Medical times Branch daily with meals. diclofenac 2020-0 Yes 75mg Take 1 [facility] rs 75 mg EC 3-17 tablet by ity of tablet 00:00: mouth (two) Medical times Branch daily with meals. diclofenac 2020-0 2020- No 75mg Take 1 [facility] ers 75 mg EC 3-17 07-14 tablet by ity o f tablet 00:00: 00:00 mouth 00 :00 (two) Medical times Branch daily with meals. gentamicin 2020-0 2020- No 80mg Un[facility] s injection 05-04 ity of 80 mg 19:00: 17:48 [place] 00 :00 Medical Branch gentamicin 2019-0 2020- No 80mg 80 mg, IV U nivers injection 05-04 Piggyback, ity of 80 mg 19:00: 17:48 ONCE, 1 [place] 00 :00 dose, Tue Medical 05/04/19 at Branch 1300, WINDY
Re ason for Anti-Infec tive: Surgical Prophylaxi s
Surgi ezekiel Prophylaxi s: Genitourin michelle
Dur ation of therapy: within 24 hours of surgery gentamicin 2019-0 2020- No 80mg Univer s injection 05-04 ity of 80 mg 19:00: 17:48 [place] 00 :00 [facility] Branch gentamicin 2019-0 2020- No 80mg 80 mg, IV U nivers injection 05-04 Piggyback, ity of 80 mg 19:00: 17:48 ONCE, 1 [place] 00 :00 dose, Tue [facility] 05/04/19 at [place] 1300, WINDY
Re ason for Anti-Infec tive: Surgical Prophylaxi s
Surgi ezekiel Prophylaxi s: Genitourin michelle
Dur ation of therapy: within 24 hours of surgery cephALEXin 2020-0 2020- No [id number] 500mg Take 2 [facility] 250 mg 05-04-03 capsules ity of capsule 00:00: 05:59 by mouth [place] 00 :00 every 12 Medical (twelve) Branch hours for 3 days. cephALEXin 2020-0 2020- No [id number] 500mg Take 2 [facility] 250 mg 05-04-03 capsules ity of capsule 00:00: 05:59 by mouth [place] 00 :00 every 12 Medical (twelve) Branch hours for 3 days. atorvastati 2020-0 Yes 20mg Take 20 mg [facility] n 20 mg 2-20 by mouth ity of tablet 00:00: daily. [address] metoprolol 2020-0 Yes 25mg Take 25 mg U nivers tartrate 25 2-20 by mouth 2 it y of mg tablet 00:00: (two) [place] 00 times Medical daily. Branch atorvastati 2020-0 Yes 20mg Take 20 mg [facility] n 20 mg 2-20 by mouth ity of tablet 00:00: daily. [place] 00 Medical Branch metoprolol 2020-0 Yes 25mg Take 25 mg U nivers tartrate 25 2-20 by mouth 2 it y of mg tablet 00:00: (two) [place] 00 times Medical daily. Branch atorvastati 2020-0 Yes 20mg Take 20 mg [facility] n 20 mg 2-20 by mouth ity of tablet 00:00: daily. Medical Branch metoprolol 2020-0 Yes 25mg Take 25 mg U nivers tartrate 25 2-20 by mouth 2 it y of mg tablet 00:00: (two) [place] 00 times Medical daily. Branch atorvastati 2020-0 Yes 20mg Take 20 mg [facility] n 20 mg 2-20 by mouth ity of tablet 00:00: daily. [place] [facility] Branch metoprolol 2020-0 Yes 25mg Take 25 mg U nivers tartrate 25 2-20 by mouth 2 it y of mg tablet 00:00: (two) [place] times Medical daily. Branch atorvastati 2020-0 Yes 20mg Take 20 mg [facility] n 20 mg 2-20 by mouth ity of tablet 00:00: daily. [place] [facility] metoprolol 2020-0 Yes 25mg Take 25 mg U nivers tartrate 25 2-20 by mouth 2 it y of mg tablet 00:00: (two) [place] times Medical daily. Branch atorvastati 2020-0 Yes 20mg Take 20 mg [facility] n 20 mg 2-20 by mouth ity of tablet 00:00: daily. [place] [facility] metoprolol 2020-0 Yes 25mg Take 25 mg U nivers tartrate 25 2-20 by mouth 2 it y of mg tablet 00:00: (two) [place] times Medical daily. Branch atorvastati 2020-0 Yes 20mg Take 20 mg [facility] n 20 mg 2-20 by mouth ity of tablet 00:00: daily. [place] [facility] metoprolol 2020-0 Yes 25mg Take 25 mg U nivers tartrate 25 2-20 by mouth 2 it y of mg tablet 00:00: (two) [place] 00 times Medical daily. Branch atorvastati 2020-0 Yes 20mg Take 20 mg [facility] n 20 mg 2-20 by mouth ity of tablet 00:00: daily. [place] [facility] Branch metoprolol 2020-0 Yes 25mg Take 25 mg U nivers tartrate 25 2-20 by mouth 2 it y of mg tablet 00:00: (two) [place] 00 times Medical daily. Branch atorvastati 2020-0 Yes 20mg Take 20 mg [facility] n 20 mg 2-20 by mouth ity of tablet 00:00: daily. Medical Branch metoprolol 2020-0 Yes 25mg Take 25 mg U nivers tartrate 25 2-20 by mouth 2 it y of mg tablet 00:00: (two) [place] 00 times Medical daily. Branch atorvastati 2020-0 Yes 20mg Take 20 mg [facility] n 20 mg 2-20 by mouth ity of tablet 00:00: daily. Medical Branch metoprolol 2020-0 Yes 25mg Take 25 mg U nivers tartrate 25 2-20 by mouth 2 it y of mg tablet 00:00: (two) [place] times Medical daily. Branch atorvastati 2020-0 Yes 20mg Take 20 mg [facility] n 20 mg 2-20 by mouth ity of tablet 00:00: daily. Medical Branch metoprolol 2020-0 Yes 25mg Take 25 mg U nivers tartrate 25 2-20 by mouth 2 it y of mg tablet 00:00: (two) [place] times Medical daily. Branch atorvastati 2020-0 Yes 20mg Take 20 mg [facility] n 20 mg 2-20 by mouth ity of tablet 00:00: daily. Medical Branch metoprolol 2020-0 Yes 25mg Take 25 mg U nivers tartrate 25 2-20 by mouth 2 it y of mg tablet 00:00: (two) [place] 00 times Medical daily. Branch atorvastati 2020-0 Yes 20mg Take 20 mg [facility] n 20 mg 2-20 by mouth ity of tablet 00:00: daily. Medical Branch metoprolol 2020-0 Yes 25mg Take 25 mg U nivers tartrate 25 2-20 by mouth 2 it y of mg tablet 00:00: (two) [place] 00 times Medical daily. Branch atorvastati 2020-0 Yes 20mg Take 20 mg Univers n 20 mg 2-20 by mouth ity of tablet 00:00: daily. Medical Branch metoprolol 2020-0 Yes 25mg Take 25 mg U nivers tartrate 25 2-20 by mouth 2 it y of mg tablet 00:00: (two) [place] times Medical daily. Branch atorvastati 2020-0 Yes 20mg Take 20 mg [facility] n 20 mg 2-20 by mouth ity of tablet 00:00: daily. Medical Branch metoprolol 2020-0 Yes 25mg Take 25 mg U nivers tartrate 25 2-20 by mouth 2 it y of mg tablet 00:00: (two) [place] 00 times Medical daily. Branch atorvastati 2020-0 Yes 20mg Take 20 mg [facility] n 20 mg 2-20 by mouth ity of tablet 00:00: daily. Medical Branch metoprolol 2020-0 Yes 25mg Take 25 mg U nivers tartrate 25 2-20 by mouth 2 it y of mg tablet 00:00: (two) [place] 00 times Medical daily. Branch atorvastati 2020-0 Yes 20mg Take 20 mg [facility] n 20 mg 2-20 by mouth ity of tablet 00:00: daily. Medical Branch metoprolol 2020-0 Yes 25mg Take 25 mg U nivers tartrate 25 2-20 by mouth 2 it y of mg tablet 00:00: (two) [place] times Medical daily. Branch atorvastati 2020-0 Yes 20mg Take 20 mg [facility] n 20 mg 2-20 by mouth ity of tablet 00:00: daily. Medical Branch metoprolol 2020-0 Yes 25mg Take 25 mg U nivers tartrate 25 2-20 by mouth 2 it y of mg tablet 00:00: (two) [place] 00 times Medical daily. Branch atorvastati 2020-0 Yes 20mg Take 20 mg [facility] n 20 mg 2-20 by mouth ity of tablet 00:00: daily. Medical Branch metoprolol 2020-0 Yes 25mg Take 25 mg U nivers tartrate 25 2-20 by mouth 2 it y of mg tablet 00:00: (two) [place] 00 times Medical daily. Branch atorvastati 2020-0 Yes 20mg Take 20 mg [facility] n 20 mg 2-20 by mouth ity of tablet 00:00: daily. Medical Branch metoprolol 2020-0 Yes 25mg Take 25 mg U nivers tartrate 25 2-20 by mouth 2 it y of mg tablet 00:00: (two) [place] 00 times Medical daily. Branch atorvastati 2020-0 Yes 20mg Take 20 mg [facility] n 20 mg 2-20 by mouth ity of tablet 00:00: daily. Medical Branch metoprolol 2020-0 Yes 25mg Take 25 mg U nivers tartrate 25 2-20 by mouth 2 it y of mg tablet 00:00: (two) [place] 00 times Medical daily. Branch atorvastati 2020-0 Yes 20mg Take 20 mg [facility] n 20 mg 2-20 by mouth ity of tablet 00:00: daily. [place] [facility] Branch metoprolol 2020-0 Yes 25mg Take 25 mg U nivers tartrate 25 2-20 by mouth 2 it y of mg tablet 00:00: (two) [place] 00 times Medical daily. Branch atorvastati 2020-0 Yes 20mg Take 20 mg [facility] n 20 mg 2-20 by mouth ity of tablet 00:00: daily. [place] [facility] Branch metoprolol 2020-0 Yes 25mg Take 25 mg U nivers tartrate 25 2-20 by mouth 2 it y of mg tablet 00:00: (two) [place] times Medical daily. Branch atorvastati 2020-0 Yes 20mg Take 20 mg [facility] n 20 mg 2-20 by mouth ity of tablet 00:00: daily. [place] [facility] Branch metoprolol 2020-0 Yes 25mg Take 25 mg U nivers tartrate 25 2-20 by mouth 2 it y of mg tablet 00:00: (two) [place] Medical daily. Branch atorvastati 2020-0 Yes 20mg Take 20 mg [facility] n 20 mg 2-20 by mouth ity of tablet 00:00: daily. [place] [facility] Branch metoprolol 2020-0 Yes 25mg Take 25 mg U nivers tartrate 25 2-20 by mouth 2 it y of mg tablet 00:00: (two) [place] times Medical daily. Branch atorvastati 2020-0 Yes 20mg Take 20 mg [facility] n 20 mg 2-20 by mouth ity of tablet 00:00: daily. [place] [facility] Branch metoprolol 2020-0 Yes 25mg Take 25 mg U nivers tartrate 25 2-20 by mouth 2 it y of mg tablet 00:00: (two) [place] 00 times Medical daily. Branch atorvastati 2020-0 Yes 20mg Take 20 mg Univers n 20 mg 2-20 by mouth ity of tablet 00:00: daily. [place] [facility] Branch metoprolol 2020-0 Yes 25mg Take 25 mg U nivers tartrate 25 2-20 by mouth 2 it y of mg tablet 00:00: (two) [place] 00 times Medical daily. Branch atorvastati 2020-0 Yes 20mg Take 20 mg Univers n 20 mg 2-20 by mouth ity of tablet 00:00: daily. Medical Branch metoprolol 2020-0 Yes 25mg Take 25 mg U nivers tartrate 25 2-20 by mouth 2 it y of mg tablet 00:00: (two) [place] 00 times Medical daily. Branch atorvastati 2020-0 Yes 20mg Take 20 mg Univers n 20 mg 2-20 by mouth ity of tablet 00:00: daily. Medical Branch metoprolol 2020-0 Yes 25mg Take 25 mg U nivers tartrate 25 2-20 by mouth 2 it y of mg tablet 00:00: (two) [place] times Medical daily. Branch atorvastati 2020-0 Yes 20mg Take 20 mg Univers n 20 mg 2-20 by mouth ity of tablet 00:00: daily. [place] [facility] Branch metoprolol 2020-0 Yes 25mg Take 25 mg U nivers tartrate 25 2-20 by mouth 2 it y of mg tablet 00:00: (two) [place] times Medical daily. Branch atorvastati 2020-0 Yes 20mg Take 20 mg Univers n 20 mg 2-20 by mouth ity of tablet 00:00: daily. Medical Branch metoprolol 2020-0 Yes 25mg Take 25 mg U nivers tartrate 25 2-20 by mouth 2 it y of mg tablet 00:00: (two) [place] 00 times Medical daily. Branch atorvastati 2020-0 Yes 20mg Take 20 mg [facility] n 20 mg 2-20 by mouth ity of tablet 00:00: daily. Medical Branch metoprolol 2020-0 Yes 25mg Take 25 mg U nivers tartrate 25 2-20 by mouth 2 it y of mg tablet 00:00: (two) [place] 00 times Medical daily. Branch atorvastati 2020-0 Yes 20mg Take 20 mg Univers n 20 mg 2-20 by mouth ity of tablet 00:00: daily. [place] [facility] metoprolol 2020-0 Yes 25mg Take 25 mg U nivers tartrate 25 2-20 by mouth 2 it y of mg tablet 00:00: (two) [place] times Medical daily. Branch atorvastati 2020-0 Yes 20mg Take 20 mg Univers n 20 mg 2-20 by mouth ity of tablet 00:00: daily. Medical Branch metoprolol 2020-0 Yes 25mg Take 25 mg U nivers tartrate 25 2-20 by mouth 2 it y of mg tablet 00:00: (two) [place] 00 times Medical daily. Branch atorvastati 2020-0 Yes 20mg Take 20 mg Univers n 20 mg 2-20 by mouth ity of tablet 00:00: daily. Medical Branch metoprolol 2020-0 Yes 25mg Take 25 mg U nivers tartrate 25 2-20 by mouth 2 it y of mg tablet 00:00: (two) [place] 00 times Medical daily. Branch atorvastati 2020-0 Yes 20mg Take 20 mg Univers n 20 mg 2-20 by mouth ity of tablet 00:00: daily. [place] [facility] Branch metoprolol 2020-0 Yes 25mg Take 25 mg U nivers tartrate 25 2-20 by mouth 2 it y of mg tablet 00:00: (two) [place] Medical daily. Branch atorvastati 2020-0 Yes 20mg Take 20 mg Univers n 20 mg 2-20 by mouth ity of tablet 00:00: daily. [place] [facility] Branch metoprolol 2020-0 Yes 25mg Take 25 mg U nivers tartrate 25 2-20 by mouth 2 it y of mg tablet 00:00: (two) [place] times Medical daily. Branch atorvastati 2020-0 Yes 20mg Take 20 mg Univers n 20 mg 2-20 by mouth ity of tablet 00:00: daily. [place] [facility] Branch metoprolol 2020-0 Yes 25mg Take 25 mg U nivers tartrate 25 2-20 by mouth 2 it y of mg tablet 00:00: (two) [place] 00 times Medical daily. Branch atorvastati 2020-0 Yes 20mg Take 20 mg Univers n 20 mg 2-20 by mouth ity of tablet 00:00: daily. [place] [facility] metoprolol 2020-0 Yes 25mg Take 25 mg U nivers tartrate 25 2-20 by mouth 2 it y of mg tablet 00:00: (two) [place] 00 times Medical daily. Branch atorvastati 2020-0 Yes 20mg Take 20 mg Univers n 20 mg 2-20 by mouth ity of tablet 00:00: daily. [place] [facility] Branch metoprolol 2020-0 Yes 25mg Take 25 mg U nivers tartrate 25 2-20 by mouth 2 it y of mg tablet 00:00: (two) [place] times Medical daily. Branch atorvastati 2020-0 Yes 20mg Take 20 mg Univers n 20 mg 2-20 by mouth ity of tablet 00:00: daily. [place] [facility] Branch metoprolol 2020-0 Yes 25mg Take 25 mg U nivers tartrate 25 2-20 by mouth 2 it y of mg tablet 00:00: (two) [place] times Medical daily. Branch tamsulosin 2020-0 Yes Take by Uni vers 0.4 mg 24 2-14 mouth ity of hr capsule 17:20: daily. [place] [address] Medical Branch om 2020-0 Yes Take by Univers 3/E/linol/a 2-14 mouth. ity of la/oleic/gl 17:20: [place] a/lip 21 Medical (OMEGA Branch 3-6-9 ORAL) tamsulosin 2020-0 Yes Take by Uni vers 0.4 mg 24 2-14 mouth ity of hr capsule 17:20: daily. [place] [address] Medical Branch om 2020-0 Yes Take by Univers 3/E/linol/a 2-14 mouth. ity of la/oleic/gl 17:20: [place] a/lip 21 Medical (OMEGA Branch 3-6-9 ORAL) tamsulosin 2020-0 Yes Take by Uni vers 0.4 mg 24 2-14 mouth ity of hr capsule 17:20: daily. [place] [address] Medical Branch om 2020-0 Yes Take by Univers 3/E/linol/a 2-14 mouth. ity of la/oleic/gl 17:20: [place] a/lip 21 Medical (OMEGA Branch 3-6-9 ORAL) tamsulosin 2020-0 Yes Take by Uni vers 0.4 mg 24 2-14 mouth ity of hr capsule 17:20: daily. [place] [address] Medical Branch om 2020-0 Yes Take by Univers 3/E/linol/a 2-14 mouth. ity of la/oleic/gl 17:20: [place] a/lip 21 Medical (OMEGA Branch 3-6-9 ORAL) tamsulosin 2020-0 Yes Take by Uni vers 0.4 mg 24 2-14 mouth ity of hr capsule 17:20: daily. [place] [address] Medical Branch om 2020-0 Yes Take by Univers 3/E/linol/a 2-14 mouth. ity of la/oleic/gl 17:20: [place] a/lip 21 Medical (OMEGA Branch 3-6-9 ORAL) tamsulosin 2020-0 Yes Take by Uni vers 0.4 mg 24 2-14 mouth ity of hr capsule 17:20: daily. [place] [address] Medical Branch om 2020-0 Yes Take by Univers 3/E/linol/a 2-14 mouth. ity of la/oleic/gl 17:20: [place] a/lip 21 Medical (OMEGA Branch 3-6-9 ORAL) tamsulosin 2020-0 Yes Take by Uni vers 0.4 mg 24 2-14 mouth ity of hr capsule 17:20: daily. [place] [address] Medical Branch om 2020-0 Yes Take by Univers 3/E/linol/a 2-14 mouth. ity of la/oleic/gl 17:20: [place] a/lip 21 Medical (OMEGA Branch 3-6-9 ORAL) tamsulosin 2020-0 Yes Take by Uni vers 0.4 mg 24 2-14 mouth ity of hr capsule 17:20: daily. [place] [address] Medical Branch om 2020-0 Yes Take by Univers 3/E/linol/a 2-14 mouth. ity of la/oleic/gl 17:20: [place] a/lip 21 Medical (OMEGA Branch 3-6-9 ORAL) tamsulosin 2020-0 Yes Take by Uni vers 0.4 mg 24 2-14 mouth ity of hr capsule 17:20: daily. [address] om 2020-0 Yes Take by Univers 3/E/linol/a 2-14 mouth. ity of la/oleic/gl 17:20: [place] a/lip 21 Medical (OMEGA Branch 3-6-9 ORAL) tamsulosin 2020-0 Yes Take by Uni vers 0.4 mg 24 2-14 mouth ity of hr capsule 17:20: daily. [place] [address] Medical Branch om 2020-0 Yes Take by Univers 3/E/linol/a 2-14 mouth. ity of la/oleic/gl 17:20: [place] a/lip 21 Medical (OMEGA Branch 3-6-9 ORAL) tamsulosin 2020-0 Yes Take by Uni vers 0.4 mg 24 2-14 mouth ity of hr capsule 17:20: daily. [place] [address] Medical Branch om 2020-0 Yes Take by Univers 3/E/linol/a 2-14 mouth. ity of la/oleic/gl 17:20: [place] a/lip 21 Medical (OMEGA Branch 3-6-9 ORAL) tamsulosin 2020-0 Yes Take by Uni vers 0.4 mg 24 2-14 mouth ity of hr capsule 17:20: daily. [place] [address] Medical Branch om 2020-0 Yes Take by Univers 3/E/linol/a 2-14 mouth. ity of la/oleic/gl 17:20: [place] a/lip 21 Medical (OMEGA Branch 3-6-9 ORAL) tamsulosin 2020-0 Yes Take by Uni vers 0.4 mg 24 2-14 mouth ity of hr capsule 17:20: daily. [place] [address] Medical Branch om 2020-0 Yes Take by Univers 3/E/linol/a 2-14 mouth. ity of la/oleic/gl 17:20: [place] a/lip 21 Medical (OMEGA Branch 3-6-9 ORAL) tamsulosin 2020-0 Yes Take by Uni vers 0.4 mg 24 2-14 mouth ity of hr capsule 17:20: daily. [address] Branch om 2020-0 Yes Take by Univers 3/E/linol/a 2-14 mouth. ity of la/oleic/gl 17:20: [place] a/lip 21 Medical (OMEGA Branch 3-6-9 ORAL) tamsulosin 2020-0 Yes Take by Uni vers 0.4 mg 24 2-14 mouth ity of hr capsule 17:20: daily. [address] om 2020-0 Yes Take by Univers 3/E/linol/a 2-14 mouth. ity of la/oleic/gl 17:20: [place] a/lip 21 Medical (OMEGA Branch 3-6-9 ORAL) tamsulosin 2020-0 Yes Take by Uni vers 0.4 mg 24 2-14 mouth ity of hr capsule 17:20: daily. [place] [address] Medical Branch om 2020-0 Yes Take by Univers 3/E/linol/a 2-14 mouth. ity of la/oleic/gl 17:20: [place] a/lip 21 Medical (OMEGA Branch 3-6-9 ORAL) tamsulosin 2020-0 Yes Take by Uni vers 0.4 mg 24 2-14 mouth ity of hr capsule 17:20: daily. [place] 21 Medical Branch om 2020-0 Yes Take by Univers 3/E/linol/a 2-14 mouth. ity of la/oleic/gl 17:20: [place] a/lip 21 Medical (OMEGA Branch 3-6-9 ORAL) tamsulosin 2020-0 Yes Take by Uni vers 0.4 mg 24 2-14 mouth ity of hr capsule 17:20: daily. [place] [address] Medical Branch om 2020-0 Yes Take by Univers 3/E/linol/a 2-14 mouth. ity of la/oleic/gl 17:20: [place] a/lip 21 Medical (OMEGA Branch 3-6-9 ORAL) tamsulosin 2020-0 Yes Take by Uni vers 0.4 mg 24 2-14 mouth ity of hr capsule 17:20: daily. [place] [address] Medical Branch om 2020-0 Yes Take by Univers 3/E/linol/a 2-14 mouth. ity of la/oleic/gl 17:20: [place] a/lip 21 Medical (OMEGA Branch 3-6-9 ORAL) tamsulosin 2020-0 Yes Take by Uni vers 0.4 mg 24 2-14 mouth ity of hr capsule 17:20: daily. [place] [address] Medical Branch om 2020-0 Yes Take by Univers 3/E/linol/a 2-14 mouth. ity of la/oleic/gl 17:20: [place] a/lip 21 Medical (OMEGA Branch 3-6-9 ORAL) tamsulosin 2020-0 Yes Take by Uni vers 0.4 mg 24 2-14 mouth ity of hr capsule 17:20: daily. [place] [address] Medical Branch om 2020-0 Yes Take by Univers 3/E/linol/a 2-14 mouth. ity of la/oleic/gl 17:20: [place] a/lip 21 Medical (OMEGA Branch 3-6-9 ORAL) tamsulosin 2020-0 Yes Take by Uni vers 0.4 mg 24 2-14 mouth ity of hr capsule 17:20: daily. [place] [address] Medical Branch om 2020-0 Yes Take by Univers 3/E/linol/a 2-14 mouth. ity of la/oleic/gl 17:20: [place] a/lip 21 Medical (OMEGA Branch 3-6-9 ORAL) tamsulosin 2020-0 Yes Take by Uni vers 0.4 mg 24 2-14 mouth ity of hr capsule 17:20: daily. [place] [address] Medical Branch om 2020-0 Yes Take by [facility] 3/E/linol/a 2-14 mouth. ity of la/oleic/gl 17:20: [place] a/lip 21 Medical (OMEGA Branch 3-6-9 ORAL) tamsulosin 2020-0 Yes Take by Uni vers 0.4 mg 24 2-14 mouth ity of hr capsule 17:20: daily. [place] [address] Medical Branch om 2020-0 Yes Take by Univers 3/E/linol/a 2-14 mouth. ity of la/oleic/gl 17:20: [place] a/lip 21 Medical (OMEGA Branch 3-6-9 ORAL) tamsulosin 2020-0 Yes Take by Uni vers 0.4 mg 24 2-14 mouth ity of hr capsule 17:20: daily. [place] [address] Medical Branch om 2020-0 Yes Take by [facility] 3/E/linol/a 2-14 mouth. ity of la/oleic/gl 17:20: [place] a/lip 21 Medical (OMEGA Branch 3-6-9 ORAL) tamsulosin 2020-0 Yes Take by Uni vers 0.4 mg 24 2-14 mouth ity of hr capsule 17:20: daily. [place] [address] Medical Branch om 2020-0 Yes Take by [facility] 3/E/linol/a 2-14 mouth. ity of la/oleic/gl 17:20: [place] a/lip 21 Medical (OMEGA Branch 3-6-9 ORAL) tamsulosin 2020-0 Yes Take by Uni vers 0.4 mg 24 2-14 mouth ity of hr capsule 17:20: daily. [place] [address] Medical Branch om 2020-0 Yes Take by Univers 3/E/linol/a 2-14 mouth. ity of la/oleic/gl 17:20: [place] a/lip 21 Medical (OMEGA Branch 3-6-9 ORAL) tamsulosin 2020-0 Yes Take by Uni vers 0.4 mg 24 2-14 mouth ity of hr capsule 17:20: daily. [place] [address] Medical Branch om 2020-0 Yes Take by Univers 3/E/linol/a 2-14 mouth. ity of la/oleic/gl 17:20: [place] a/lip 21 Medical (OMEGA Branch 3-6-9 ORAL) tamsulosin 2020-0 Yes Take by Uni vers 0.4 mg 24 2-14 mouth ity of hr capsule 17:20: daily. [place] [address] Medical Branch om 2020-0 Yes Take by [facility] 3/E/linol/a 2-14 mouth. ity of la/oleic/gl 17:20: [place] a/lip 21 Medical (OMEGA Branch 3-6-9 ORAL) tamsulosin 2020-0 Yes Take by Uni vers 0.4 mg 24 2-14 mouth ity of hr capsule 17:20: daily. [place] [address] Medical Branch tamsulosin 2020-0 Yes Take by [facility] vers 0.4 mg 24 2-14 mouth ity of hr capsule 17:20: daily. [place] [address] Medical Branch om 2020-0 Yes Take by Univers 3/E/linol/a 2-14 mouth. ity of la/oleic/gl 17:20: [place] a/lip 21 Medical (OMEGA Branch 3-6-9 ORAL) om 2020-0 Yes Take by Univers 3/E/linol/a 2-14 mouth. ity of la/oleic/gl 17:20: [place] a/lip 21 Medical (OMEGA Branch 3-6-9 ORAL) tamsulosin 2020-0 Yes Take by Uni vers 0.4 mg 24 2-14 mouth ity of hr capsule 17:20: daily. [place] [address] Medical Branch om 2020-0 Yes Take by Univers 3/E/linol/a 2-14 mouth. ity of la/oleic/gl 17:20: [place] a/lip 21 Medical (OMEGA Branch 3-6-9 ORAL) tamsulosin 2020-0 Yes Take by [facility] vers 0.4 mg 24 2-14 mouth ity of hr capsule 17:20: daily. [place] [address] Medical Branch om 2020-0 Yes Take by [facility] 3/E/linol/a 2-14 mouth. ity of la/oleic/gl 17:20: [place] a/lip 21 Medical (OMEGA Branch 3-6-9 ORAL) tamsulosin 2020-0 Yes Take by [facility] vers 0.4 mg 24 2-14 mouth ity of hr capsule 17:20: daily. [place] [address] Medical Branch om 2020-0 Yes Take by [facility] 3/E/linol/a 2-14 mouth. ity of la/oleic/gl 17:20: [place] a/lip 21 Medical (OMEGA Branch 3-6-9 ORAL) tamsulosin 2020-0 Yes Take by [facility] vers 0.4 mg 24 2-14 mouth ity of hr capsule 17:20: daily. [place] [address] Medical Branch om 2020-0 Yes Take by [facility] 3/E/linol/a 2-14 mouth. ity of la/oleic/gl 17:20: [place] a/lip 21 Medical (OMEGA Branch 3-6-9 ORAL) tamsulosin 2020-0 Yes Take by Uni vers 0.4 mg 24 2-14 mouth ity of hr capsule 17:20: daily. [place] [address] Medical Branch om 2020-0 Yes Take by [facility] 3/E/linol/a 2-14 mouth. ity of la/oleic/gl 17:20: [place] a/lip 21 Medical (OMEGA Branch 3-6-9 ORAL) tamsulosin 2020-0 Yes Take by [facility] vers 0.4 mg 24 2-14 mouth ity of hr capsule 17:20: daily. [place] [address] Medical Branch om 2020-0 Yes Take by [facility] 3/E/linol/a 2-14 mouth. ity of la/oleic/gl 17:20: [place] a/lip 21 Medical (OMEGA Branch 3-6-9 ORAL) tamsulosin 2020-0 Yes Take by Uni vers 0.4 mg 24 2-14 mouth ity of hr capsule 17:20: daily. [place] [address] [facility] om 2020-0 Yes Take by [facility] 3/E/linol/a 2-14 mouth. ity of la/oleic/gl 17:20: [place] a/lip 21 Medical ([facility] 3-6-9 ORAL) tamsulosin 2020-0 Yes Take by Uni vers 0.4 mg 24 2-14 mouth ity of hr capsule 17:20: daily. [place] [address] [facility] om 2020-0 Yes Take by [facility] 3/E/linol/a 2-14 mouth. ity of la/oleic/gl 17:20: [place] a/lip 21 Medical ([facility] 3-6-9 ORAL) tamsulosin 2020-0 Yes Take by Uni vers 0.4 mg 24 2-14 mouth ity of hr capsule 17:20: daily. [place] [address] [facility] om 2020-0 Yes Take by [facility] 3/E/linol/a 2-14 mouth. ity of la/oleic/gl 17:20: [place] a/lip 21 Medical ([facility] 3-6-9 ORAL) tamsulosin 2020-0 Yes Take by Uni vers 0.4 mg 24 2-14 mouth ity of hr capsule 17:20: daily. [place] [address] [facility] om 2020-0 Yes Take by [facility] 3/E/linol/a 2-14 mouth. ity of la/oleic/gl 17:20: [place] a/lip 21 Medical ([facility] 3-6-9 ORAL) tamsulosin 2020-0 Yes Take by Uni vers 0.4 mg 24 2-14 mouth ity of hr capsule 17:20: daily. [place] [address] [facility] om 2020-0 Yes Take by [facility] 3/E/linol/a 2-14 mouth. ity of la/oleic/gl 17:20: [place] a/lip 21 Medical ([facility] 3-6-9 ORAL) tamsulosin 2020-0 Yes Take by Uni vers 0.4 mg 24 2-14 mouth ity of hr capsule 11:20: daily. [address] om 2020-0 Yes Take by [facility] 3/E/linol/a 2-14 mouth. ity of la/oleic/gl 11:20: [place] alip 21 Medical ([facility] 3-6-9 ORAL) tamsulosin 2020-0 Yes Take by Uni vers 0.4 mg 24 2-14 mouth ity of hr capsule 11:20: daily. [address] om 2020-0 Yes Take by [facility] 3/E/linol/a 2-14 mouth. ity of la/oleic/gl 11:20: [place] alip 21 Medical ([facility] 3-6-9 ORAL) diclofenac 2018-03 2020- No [id number] 75mg Take 1 [facility] 75 mg EC 05-03 9109 tablet by ity o f tablet 00:00: 05:59 mouth 2 [place] 00 :00 (two) Medical times [place] daily with meals for 60 days. diclofenac 2018-03 2020- No [id number] 75mg Take 1 [facility] 75 mg EC 05-03 9109 tablet by ity o f tablet 00:00: 05:59 mouth 2 [place] 00 :00 (two) Medical times Branch daily with meals for 60 days. diclofenac 2018-03 2020- No [id number] 75mg Take 1 [facility] 75 mg EC 205-02 9109 tablet by ity o f tablet 00:00: 05:59 mouth 2 [place] 00 :00 (two) Medical times Branch daily with meals for 60 days. diclofenac 2018-03 2020- No [id number] 75mg Take 1 [facility] 75 mg EC 205-02 9109 tablet by ity o f tablet 00:00: 05:59 mouth 2 [place] 00 :00 (two) Medical times Branch daily with meals for 60 days. diclofenac 2018- Yes [id number] 75mg Take 1 [facility] 75 mg EC 8- 9109 tablet by ity of tablet 00:00: mouth [address] [place] [address] 00 (two) Medical times Branch daily with meals. diclofenac 2018- Yes [id number] 75mg Take 1 [facility] 75 mg EC 8- 9109 tablet by ity of tablet 00:00: mouth 2 [place] 00 (two) Medical times Branch daily with meals. diclofenac Yes [id number] 75mg Take 1 [facility] 75 mg EC 8- 9109 tablet by ity of tablet 00:00: mouth [address] [place] [address] (two) Medical times Branch daily with meals. diclofenac 2019- No [id number] 75mg Take 1 [facility] 75 mg EC 8-11-01 9109 tablet by ity o f tablet 00:00: 00:00 mouth 2 [place] 00 :00 (two) Medical times Branch daily with meals. predniSONE 2018- Yes TAKE 1 Unive rs 10 mg 7-19 TABLET BY ity of tablet 00:00: MOUTH [place] 00 TWICE Medical DAILY FOR Branch 5 DAYS predniSONE Yes TAKE 1 Unive rs 10 mg 7-19 TABLET BY ity of tablet 00:00: MOUTH [place] 00 TWICE Medical DAILY FOR Branch 5 DAYS amoxicillin Yes TAKE 1 Univ ers -clavulanat 7-19 TABLET BY ity of e 875-125 00:00: MOUTH [place] mg per 00 EVERY 12 Medical tablet HOURS FOR Branch 7 DAYS predniSONE Yes TAKE 1 Unive rs 10 mg 7-19 TABLET BY ity of tablet 00:00: MOUTH [place] 00 TWICE Medical DAILY FOR Branch 5 DAYS predniSONE 2019- Yes TAKE 1 Unive rs 10 mg 7-19 TABLET BY ity of tablet 00:00: MOUTH [place] 00 TWICE Medical DAILY FOR Branch 5 DAYS predniSONE 2019- Yes TAKE 1 Unive rs 10 mg 7-19 TABLET BY ity of tablet 00:00: MOUTH [place] 00 TWICE Medical DAILY FOR Branch 5 DAYS predniSONE 2019- Yes TAKE 1 Unive rs 10 mg 7-19 TABLET BY ity of tablet 00:00: MOUTH [place] 00 TWICE Medical DAILY FOR Branch 5 DAYS predniSONE 2019- Yes TAKE 1 Unive rs 10 mg 7-19 TABLET BY ity of tablet 00:00: MOUTH [place] 00 TWICE Medical DAILY FOR Branch 5 DAYS predniSONE 2019 Yes TAKE 1 Unive rs 10 mg 7-19 TABLET BY ity of tablet 00:00: MOUTH [place] 00 TWICE Medical DAILY FOR Branch 5 DAYS predniSONE Yes TAKE 1 Unive rs 10 mg 7-19 TABLET BY ity of tablet 00:00: MOUTH [place] 00 TWICE Medical DAILY FOR Branch 5 DAYS predniSONE 2019 Yes TAKE 1 Unive rs 10 mg 7-19 TABLET BY ity of tablet 00:00: MOUTH [place] 00 TWICE Medical DAILY FOR Branch 5 DAYS predniSONE 2019 Yes TAKE 1 Unive rs 10 mg 7-19 TABLET BY ity of tablet 00:00: MOUTH [place] 00 TWICE Medical DAILY FOR Branch 5 DAYS predniSONE Yes TAKE 1 Unive rs 10 mg 7-19 TABLET BY ity of tablet 00:00: MOUTH 00 TWICE Medical DAILY FOR Branch 5 DAYS amoxicillin Yes TAKE 1 Univ ers -clavulanat 7-19 TABLET BY ity of e 875-125 00:00: MOUTH [place] mg per 00 EVERY 12 Medical tablet HOURS FOR Branch 7 DAYS predniSONE Yes TAKE 1 Unive rs 10 mg 7-19 TABLET BY ity of tablet 00:00: MOUTH 00 TWICE Medical DAILY FOR Branch 5 DAYS predniSONE 2019 Yes TAKE 1 Unive rs 10 mg 7-19 TABLET BY ity of tablet 00:00: MOUTH 00 TWICE Medical DAILY FOR Branch 5 DAYS predniSONE 2019 Yes TAKE 1 Unive rs 10 mg 7-19 TABLET BY ity of tablet 00:00: MOUTH [place] 00 TWICE Medical DAILY FOR Branch 5 DAYS predniSONE Yes TAKE 1 Unive rs 10 mg 7-19 TABLET BY ity of tablet 00:00: MOUTH 00 TWICE Medical DAILY FOR Branch 5 DAYS predniSONE 2019 Yes TAKE 1 Unive rs 10 mg 7-19 TABLET BY ity of tablet 00:00: MOUTH [place] 00 TWICE Medical DAILY FOR Branch 5 DAYS predniSONE 2019 Yes TAKE 1 Unive rs 10 mg 7-19 TABLET BY ity of tablet 00:00: MOUTH 00 TWICE Medical DAILY FOR Branch 5 DAYS predniSONE 2019- Yes TAKE 1 Unive rs 10 mg 7-19 TABLET BY ity of tablet 00:00: MOUTH [place] 00 TWICE Medical DAILY FOR Branch 5 DAYS predniSONE 2019- Yes TAKE 1 Unive rs 10 mg 7-19 TABLET BY ity of tablet 00:00: MOUTH [place] 00 TWICE Medical DAILY FOR Branch 5 DAYS predniSONE 2019 Yes TAKE 1 Unive rs 10 mg 7-19 TABLET BY ity of tablet 00:00: MOUTH [place] 00 TWICE Medical DAILY FOR Branch 5 DAYS amoxicillin Yes TAKE 1 Univ ers -clavulanat 7-19 TABLET BY ity of e 875-125 00:00: MOUTH [place] mg per 00 EVERY 12 Medical tablet HOURS FOR Branch 7 DAYS predniSONE Yes TAKE 1 Unive rs 10 mg 7-19 TABLET BY ity of tablet 00:00: MOUTH [place] 00 TWICE Medical DAILY FOR Branch 5 DAYS predniSONE 2019 Yes TAKE 1 Unive rs 10 mg 7-19 TABLET BY ity of tablet 00:00: MOUTH [place] 00 TWICE Medical DAILY FOR Branch 5 DAYS predniSONE Yes TAKE 1 Unive rs 10 mg 7-19 TABLET BY ity of tablet 00:00: MOUTH [place] 00 TWICE Medical DAILY FOR Branch 5 DAYS predniSONE Yes TAKE 1 Unive rs 10 mg 7-19 TABLET BY ity of tablet 00:00: MOUTH [place] 00 TWICE Medical DAILY FOR Branch 5 DAYS predniSONE Yes TAKE 1 Unive rs 10 mg 7-19 TABLET BY ity of tablet 00:00: MOUTH [place] 00 TWICE Medical DAILY FOR Branch 5 DAYS amoxicillin Yes TAKE 1 Univ ers -clavulanat 7-19 TABLET BY ity of e 875-125 00:00: MOUTH [place] mg per 00 EVERY 12 Medical tablet HOURS FOR Branch 7 DAYS predniSONE 2019 Yes TAKE 1 Unive rs 10 mg 7-19 TABLET BY ity of tablet 00:00: MOUTH [place] 00 TWICE Medical DAILY FOR Branch 5 DAYS predniSONE 2019 Yes TAKE 1 Unive rs 10 mg 7-19 TABLET BY ity of tablet 00:00: MOUTH [place] 00 TWICE Medical DAILY FOR Branch 5 DAYS predniSONE 2019- Yes TAKE 1 Unive rs 10 mg 7-19 TABLET BY ity of tablet 00:00: MOUTH [place] 00 TWICE Medical DAILY FOR Branch 5 DAYS predniSONE Yes TAKE 1 Unive rs 10 mg 7-19 TABLET BY ity of tablet 00:00: MOUTH [place] 00 TWICE Medical DAILY FOR Branch 5 DAYS predniSONE 2019- Yes TAKE 1 Unive rs 10 mg 7-19 TABLET BY ity of tablet 00:00: MOUTH [place] 00 TWICE Medical DAILY FOR Branch 5 DAYS predniSONE 2019- Yes TAKE 1 Unive rs 10 mg 7-19 TABLET BY ity of tablet 00:00: MOUTH [place] 00 TWICE Medical DAILY FOR Branch 5 DAYS amoxicillin Yes TAKE 1 Univ ers -clavulanat 7-19 TABLET BY ity of e 875-125 00:00: MOUTH [place] mg per 00 EVERY 12 Medical tablet HOURS FOR Branch 7 DAYS predniSONE 2019 Yes TAKE 1 Unive rs 10 mg 7-19 TABLET BY ity of tablet 00:00: MOUTH [place] 00 TWICE Medical DAILY FOR Branch 5 DAYS predniSONE 2019 Yes TAKE 1 Unive rs 10 mg 7-19 TABLET BY ity of tablet 00:00: MOUTH [place] 00 TWICE Medical DAILY FOR Branch 5 DAYS predniSONE 2019 Yes TAKE 1 Unive rs 10 mg 7-19 TABLET BY ity of tablet 00:00: MOUTH [place] 00 TWICE Medical DAILY FOR Branch 5 DAYS predniSONE 2019- Yes TAKE 1 Unive rs 10 mg 7-19 TABLET BY ity of tablet 00:00: MOUTH [place] 00 TWICE Medical DAILY FOR Branch 5 DAYS predniSONE 2019 Yes TAKE 1 Unive rs 10 mg 7-19 TABLET BY ity of tablet 00:00: MOUTH [place] 00 TWICE Medical DAILY FOR Branch 5 DAYS predniSONE 2019- Yes TAKE 1 Unive rs 10 mg 7-19 TABLET BY ity of tablet 00:00: MOUTH [place] 00 TWICE Medical DAILY FOR Branch 5 DAYS predniSONE 2019- Yes TAKE 1 Unive rs 10 mg 7-19 TABLET BY ity of tablet 00:00: MOUTH [place] 00 TWICE Medical DAILY FOR Branch 5 DAYS predniSONE 2019- Yes TAKE 1 Unive rs 10 mg 7-19 TABLET BY ity of tablet 00:00: MOUTH [place] 00 TWICE Medical DAILY FOR Branch 5 DAYS predniSONE 2019- Yes TAKE 1 Unive rs 10 mg 7-19 TABLET BY ity of tablet 00:00: MOUTH [place] 00 TWICE Medical DAILY FOR Branch 5 DAYS predniSONE 2019- Yes TAKE 1 Unive rs 10 mg 7-19 TABLET BY ity of tablet 00:00: MOUTH [place] 00 TWICE Medical DAILY FOR Branch 5 DAYS predniSONE 2019 Yes TAKE 1 Unive rs 10 mg 7-19 TABLET BY ity of tablet 00:00: MOUTH [place] 00 TWICE Medical DAILY FOR Branch 5 DAYS predniSONE 2019- Yes TAKE 1 Unive rs 10 mg 7-19 TABLET BY ity of tablet 00:00: MOUTH [place] 00 TWICE Medical DAILY FOR Branch 5 DAYS amoxicillin Yes TAKE 1 Univ ers -clavulanat 7-19 TABLET BY ity of e 875-125 00:00: MOUTH [place] mg per 00 EVERY 12 Medical tablet HOURS FOR Branch 7 DAYS predniSONE Yes TAKE 1 Unive rs 10 mg 7-19 TABLET BY ity of tablet 00:00: MOUTH [place] 00 TWICE Medical DAILY FOR Branch 5 DAYS predniSONE Yes TAKE 1 Unive rs 10 mg 7-19 TABLET BY ity of tablet 00:00: MOUTH [place] 00 TWICE Medical DAILY FOR Branch 5 DAYS predniSONE Yes TAKE 1 Unive rs 10 mg 7-19 TABLET BY ity of tablet 00:00: MOUTH [place] 00 TWICE Medical DAILY FOR Branch 5 DAYS amoxicillin Yes TAKE 1 Univ ers -clavulanat 7-19 TABLET BY ity of e 875-125 00:00: MOUTH [place] mg per 00 EVERY 12 Medical tablet HOURS FOR Branch 7 DAYS predniSONE Yes TAKE 1 Unive rs 10 mg 7-19 TABLET BY ity of tablet 00:00: MOUTH [place] 00 TWICE Medical DAILY FOR Branch 5 DAYS amoxicillin 2020- No TAKE 1 Uni vers -clavulanat 7-19 02-28 TABLET BY it y of e 875-125 00:00: 00:00 MOUTH [place] mg per 00 :00 EVERY 12 Medical tablet HOURS FOR Branch 7 DAYS amoxicillin 2020- No TAKE 1 Uni vers -clavulanat 7-19 02-28 TABLET BY it y of e 875-125 00:00: 00:00 MOUTH [place] mg per 00 :00 EVERY 12 Medical tablet HOURS FOR Branch 7 DAYS HYDROcodone Yes TAKE 1 Univ ers -acetaminop 7-08 TABLET BY ity of hen 5-325 00:00: MOUTH [place] mg tablet 00 TWICE Medical DAILY FOR Branch 28 DAYS HYDROcodone Yes TAKE 1 Univ ers -acetaminop 7-08 TABLET BY ity of hen 5-325 00:00: MOUTH [place] mg tablet 00 TWICE Medical DAILY FOR Branch 28 DAYS HYDROcodone Yes TAKE 1 Univ ers -acetaminop 7-08 TABLET BY ity of hen 5-325 00:00: MOUTH [place] mg tablet 00 TWICE Medical DAILY FOR Branch 28 DAYS HYDROcodone Yes TAKE 1 Univ ers -acetaminop 7-08 TABLET BY ity of hen 5-325 00:00: MOUTH [place] mg tablet 00 TWICE Medical DAILY FOR Branch 28 DAYS HYDROcodone Yes TAKE 1 Univ ers -acetaminop 7-08 TABLET BY ity of hen 5-325 00:00: MOUTH [place] mg tablet 00 TWICE Medical DAILY FOR Branch 28 DAYS HYDROcodone Yes TAKE 1 Univ ers -acetaminop 7-08 TABLET BY ity of hen 5-325 00:00: MOUTH [place] mg tablet 00 TWICE Medical DAILY FOR Branch 28 DAYS HYDROcodone Yes TAKE 1 Univ ers -acetaminop 7-08 TABLET BY ity of hen 5-325 00:00: MOUTH [place] mg tablet 00 TWICE Medical DAILY FOR Branch 28 DAYS HYDROcodone Yes TAKE 1 Univ ers -acetaminop 7-08 TABLET BY ity of hen 5-325 00:00: MOUTH [place] mg tablet 00 TWICE Medical DAILY FOR Branch 28 DAYS HYDROcodone Yes TAKE 1 Univ ers -acetaminop 7-08 TABLET BY ity of hen 5-325 00:00: MOUTH [place] mg tablet 00 TWICE Medical DAILY FOR Branch 28 DAYS HYDROcodone Yes TAKE 1 Univ ers -acetaminop 7-08 TABLET BY ity of hen 5-325 00:00: MOUTH [place] mg tablet 00 TWICE Medical DAILY FOR Branch 28 DAYS HYDROcodone Yes TAKE 1 Univ ers -acetaminop 7-08 TABLET BY ity of hen 5-325 00:00: MOUTH [place] mg tablet 00 TWICE Medical DAILY FOR Branch 28 DAYS HYDROcodone Yes TAKE 1 Univ ers -acetaminop 7-08 TABLET BY ity of hen 5-325 00:00: MOUTH [place] mg tablet 00 TWICE Medical DAILY FOR Branch 28 DAYS HYDROcodone Yes TAKE 1 Univ ers -acetaminop 7-08 TABLET BY ity of hen 5-325 00:00: MOUTH [place] mg tablet 00 TWICE Medical DAILY FOR Branch 28 DAYS HYDROcodone 2019 Yes TAKE 1 Univ ers -acetaminop 7-08 TABLET BY ity of hen 5-325 00:00: MOUTH [place] mg tablet 00 TWICE Medical DAILY FOR Branch 28 DAYS HYDROcodone 0 Yes TAKE 1 Univ ers -acetaminop 7-08 TABLET BY ity of hen 5-325 00:00: MOUTH [place] mg tablet 00 TWICE Medical DAILY FOR Branch 28 DAYS HYDROcodone Yes TAKE 1 Univ ers -acetaminop 7-08 TABLET BY ity of hen 5-325 00:00: MOUTH [place] mg tablet 00 TWICE Medical DAILY FOR Branch 28 DAYS HYDROcodone Yes TAKE 1 Univ ers -acetaminop 7-08 TABLET BY ity of hen 5-325 00:00: MOUTH [place] mg tablet 00 TWICE Medical DAILY FOR Branch 28 DAYS HYDROcodone Yes TAKE 1 Univ ers -acetaminop 7-08 TABLET BY ity of hen 5-325 00:00: MOUTH [place] mg tablet 00 TWICE Medical DAILY FOR Branch 28 DAYS HYDROcodone Yes TAKE 1 Univ ers -acetaminop 7-08 TABLET BY ity of hen 5-325 00:00: MOUTH [place] mg tablet 00 TWICE Medical DAILY FOR Branch 28 DAYS HYDROcodone Yes TAKE 1 Univ ers -acetaminop 7-08 TABLET BY ity of hen 5-325 00:00: MOUTH [place] mg tablet 00 TWICE Medical DAILY FOR Branch 28 DAYS HYDROcodone Yes TAKE 1 Univ ers -acetaminop 7-08 TABLET BY ity of hen 5-325 00:00: MOUTH [place] mg tablet 00 TWICE Medical DAILY FOR Branch 28 DAYS HYDROcodone Yes TAKE 1 Univ ers -acetaminop 7-08 TABLET BY ity of hen 5-325 00:00: MOUTH [place] mg tablet 00 TWICE Medical DAILY FOR Branch 28 DAYS HYDROcodone Yes TAKE 1 Univ ers -acetaminop 7-08 TABLET BY ity of hen 5-325 00:00: MOUTH [place] mg tablet 00 TWICE Medical DAILY FOR Branch 28 DAYS HYDROcodone Yes TAKE 1 Univ ers -acetaminop 7-08 TABLET BY ity of hen 5-325 00:00: MOUTH [place] mg tablet 00 TWICE Medical DAILY FOR Branch 28 DAYS HYDROcodone Yes TAKE 1 Univ ers -acetaminop 7-08 TABLET BY ity of hen 5-325 00:00: MOUTH [place] mg tablet 00 TWICE Medical DAILY FOR Branch 28 DAYS HYDROcodone Yes TAKE 1 Univ ers -acetaminop 7-08 TABLET BY ity of hen 5-325 00:00: MOUTH [place] mg tablet 00 TWICE Medical DAILY FOR Branch 28 DAYS HYDROcodone Yes TAKE 1 Univ ers -acetaminop 7-08 TABLET BY ity of hen 5-325 00:00: MOUTH [place] mg tablet 00 TWICE Medical DAILY FOR Branch 28 DAYS HYDROcodone Yes TAKE 1 Univ ers -acetaminop 7-08 TABLET BY ity of hen 5-325 00:00: MOUTH [place] mg tablet 00 TWICE Medical DAILY FOR Branch 28 DAYS HYDROcodone Yes TAKE 1 Univ ers -acetaminop 7-08 TABLET BY ity of hen 5-325 00:00: MOUTH [place] mg tablet 00 TWICE Medical DAILY FOR Branch 28 DAYS HYDROcodone Yes TAKE 1 Univ ers -acetaminop 7-08 TABLET BY ity of hen 5-325 00:00: MOUTH [place] mg tablet 00 TWICE Medical DAILY FOR Branch 28 DAYS HYDROcodone Yes TAKE 1 Univ ers -acetaminop 7-08 TABLET BY ity of hen 5-325 00:00: MOUTH [place] mg tablet 00 TWICE Medical DAILY FOR Branch 28 DAYS HYDROcodone Yes TAKE 1 Univ ers -acetaminop 7-08 TABLET BY ity of hen 5-325 00:00: MOUTH [place] mg tablet 00 TWICE Medical DAILY FOR Branch 28 DAYS HYDROcodone Yes TAKE 1 Univ ers -acetaminop 7-08 TABLET BY ity of hen 5-325 00:00: MOUTH [place] mg tablet 00 TWICE Medical DAILY FOR Branch 28 DAYS HYDROcodone Yes TAKE 1 Univ ers -acetaminop 7-08 TABLET BY ity of hen 5-325 00:00: MOUTH [place] mg tablet 00 TWICE Medical DAILY FOR Branch 28 DAYS HYDROcodone Yes TAKE 1 Univ ers -acetaminop 7-08 TABLET BY ity of hen 5-325 00:00: MOUTH [place] mg tablet 00 TWICE Medical DAILY FOR Branch 28 DAYS HYDROcodone Yes TAKE 1 Univ ers -acetaminop 7-08 TABLET BY ity of hen 5-325 00:00: MOUTH [place] mg tablet 00 TWICE Medical DAILY FOR Branch 28 DAYS HYDROcodone Yes TAKE 1 Univ ers -acetaminop 7-08 TABLET BY ity of hen 5-325 00:00: MOUTH [place] mg tablet 00 TWICE Medical DAILY FOR Branch 28 DAYS HYDROcodone Yes TAKE 1 Univ ers -acetaminop 7-08 TABLET BY ity of hen 5-325 00:00: MOUTH [place] mg tablet 00 TWICE Medical DAILY FOR Branch 28 DAYS HYDROcodone Yes TAKE 1 Univ ers -acetaminop 7-08 TABLET BY ity of hen 5-325 00:00: MOUTH [place] mg tablet 00 TWICE Medical DAILY FOR Branch 28 DAYS HYDROcodone Yes TAKE 1 Univ ers -acetaminop 7-08 TABLET BY ity of hen 5-325 00:00: MOUTH [place] mg tablet 00 TWICE Medical DAILY FOR Branch 28 DAYS HYDROcodone Yes TAKE 1 Univ ers -acetaminop 7-08 TABLET BY ity of hen 5-325 00:00: MOUTH [place] mg tablet 00 TWICE Medical DAILY FOR Branch 28 DAYS HYDROcodone Yes TAKE 1 Univ ers -acetaminop 7-08 TABLET BY ity of hen 5-325 00:00: MOUTH [place] mg tablet 00 TWICE Medical DAILY FOR Branch 28 DAYS HYDROcodone Yes TAKE 1 Univ ers -acetaminop 7-08 TABLET BY ity of hen 5-325 00:00: MOUTH [place] mg tablet 00 TWICE Medical DAILY FOR Branch 28 DAYS HYDROcodone Yes TAKE 1 Univ ers -acetaminop 7-08 TABLET BY ity of hen 5-325 00:00: MOUTH [place] mg tablet 00 TWICE Medical DAILY FOR Branch 28 DAYS HYDROcodone Yes TAKE 1 Univ ers -acetaminop 7-08 TABLET BY ity of hen 5-325 00:00: MOUTH [place] mg tablet 00 TWICE Medical DAILY FOR Branch 28 DAYS HYDROcodone Yes TAKE 1 Univ ers -acetaminop 7-08 TABLET BY ity of hen 5-325 00:00: MOUTH [place] mg tablet 00 TWICE Medical DAILY FOR Branch 28 DAYS HYDROcodone Yes TAKE 1 Univ ers -acetaminop 7-08 TABLET BY ity of hen 5-325 00:00: MOUTH [place] mg tablet 00 TWICE Medical DAILY FOR Branch 28 DAYS HYDROcodone Yes TAKE 1 Univ ers -acetaminop 7-08 TABLET BY ity of hen 5-325 00:00: MOUTH [place] mg tablet 00 TWICE Medical DAILY FOR Branch 28 DAYS atorvastati atorvastati No atorvastat [facility] n 20 mg n 20 mg in 20 mg Famil y tablet TAKE tablet TAKE tablet Practic 1 TABLET BY 1 TABLET BY TAKE 1 e MOUTH ONCE MOUTH ONCE TABLET BY DAILY DAILY MOUTH ONCE DAILY diclofenac diclofenac No diclofenac [place] sodium 75 sodium 75 sodium 75 Family [...] oral route. hydro[facility]one [facility] mg-acetamin mg-acetamin mg-acetami Practic ophen 325 ophen 325 nophen 325 e mg tablet mg tablet mg tablet Take 1 Take 1 Take 1 tablet tablet tablet every 4 every 4 every 4 hours by hours by hours by oral route. oral route. oral route. [facility] 5 Family mg-acetamin mg-acetamin mg-acetami Practic ophen 325 ophen 325 nophen 325 e mg tablet mg tablet mg tablet TAKE 1 TAKE 1 TAKE 1 TABLET BY TABLET BY TABLET BY MOUTH THREE MOUTH THREE MOUTH TIMES DAILY TIMES DAILY THREE TIMES DAILY metoprolol metoprolol No metoprolol [facility] tartrate 25 tartrate 25 tartrate Family mg tablet mg tablet 25 mg Prac tic TAKE 1 TAKE 1 tablet e TABLET BY TABLET BY TAKE 1 MOUTH TWICE MOUTH TWICE TABLET BY DAILY DAILY MOUTH TWICE DAILY Myrbetriq Myrbetriq No Myrbetriq [facility] 25 mg 25 mg 25 mg [...] by oral route. Pneumovax-2 Pneumovax-2 No Pneumovax- [facility] 3 25 3 25 23 25 Family mcg/0.5 mL mcg/0.5 mL mcg/0.5 mL Practic injection injection injection e syringe syringe syringe PHARMACIST PHARMACIST PHARMACIST ADMINISTERE ADMINISTERE ADMINISTER D D ED IMMUNIZATIO IMMUNIZATIO IMMUNIZATI N N ON ADMINISTERE ADMINISTERE ADMINISTER D AT TIME D AT TIME ED AT TIME OF OF OF DISPENSING DISPENSING DISPENSING prednisone prednisone No prednisone [facility] 5 mg tablet 5 mg tablet [...] DISPENSING DISPENSING DISPENSING tamsulosin tamsulosin No tamsulosin [facility] 0.4 mg 0.4 mg 0.4 mg Family [...] MOUTH ONCE MOUTH ONCE DAILY DAILY DAILY No known No [facility] medications [facility] No known No [facility] medications [facility] Immunizations Ordered Immunization Filled Immunization Date Status Commen ts Source Name Name pneumococcal pneumococcal 2019-03-[address] [facility] Timmy salazar polysaccharide PPV23 polysaccharide PPV23 00:00:00 Practice Tdap Tdap 2019-03-[address] [facility] Family 00:00:00 Practice Vital Signs Vital Name Observation Time Observation Value Comments Source BP Diastolic 2020-03-10 00:00:00 68 mm[Hg] [facility] Height 2020-03-10 00:00:00 68 [in_i] [facility] BMI (Body Mass 2020-03-10 00:00:00 27.4 kg/m2 [facility] BP Systolic 2020-03-10 00:00:00 126 mm[Hg] [facility] Body Weight 2020-03-10 00:00:00 180 [lb_av] [facility] WEIGHT 2020-01-03 04:20:00 81.194 kg WEIGHT 2020-01-01 05:00:00 80.06 kg WEIGHT 2019-12-31 05:00:00 82.6 kg WEIGHT 2019-12-30 06:00:00 83.6 kg WEIGHT 2019-12-29 05:23:00 82.5 kg HEIGHT 2019-12-28 20:15:00 172.7 cm WEIGHT 2019-12-28 20:15:00 81.647 kg WEIGHT 2020-01-03 04:20:00 81.194 kg WEIGHT 2020-01-01 05:00:00 80.06 kg WEIGHT 2019-12-31 05:00:00 82.6 kg WEIGHT 2019-12-30 06:00:00 83.6 kg WEIGHT 2019-12-29 05:23:00 82.5 kg HEIGHT 2019-12-28 20:15:00 172.7 cm WEIGHT 2019-12-28 20:15:00 81.647 kg Systolic blood 2019-11-07 19:40:00 150 mm[Hg] Univer sity of pressure [facility] [place] [facility] Diastolic blood 2019-11-07 19:40:00 74 mm[Hg] Unive rsity of pressure [facility] [place] [facility] Heart rate 2019-11-07 19:40:00 76 /min [facility] [place] Body temperature 2019-11-07 19:40:[address] Respiratory rate 2019-11-07 19:40:00 18 /min [facility] Body weight 2019-11-07 19:40:00 81.647 kg [facility] [place] [facility] BMI 2019-11-07 19:40:00 25.83 kg/m2 [facility] [place] [facility] Systolic blood 2019-11-07 19:40:00 150 mm[Hg] Univer sity of pressure [place] [facility] Diastolic blood 2019-11-07 19:40:00 74 mm[Hg] Unive rsity of pressure [place] [facility] Heart rate 2019-11-07 19:40:00 76 /min [facility] [place] [facility] Body temperature 2019-11-07 19:40:00 36.44 Natalie [facility] [place] [facility] Respiratory rate 2019-11-07 19:40:00 18 /min [facility] [place] [facility] Body weight 2019-11-07 19:40:00 81.647 kg [facility] [place] [facility] BMI 2019-11-07 19:40:00 25.83 kg/m2 [facility] [place] [facility] Respiratory rate 2019-09-24 20:24:00 18 /min [facility] [place] [facility] Body weight 2019-09-24 20:24:00 82.373 kg [facility] [place] [facility] BMI 2019-09-24 20:24:00 26.06 kg/m2 [facility] [place] [facility] Systolic blood 2019-09-24 20:24:00 155 mm[Hg] Univer sity of pressure [place] [facility] Diastolic blood 2019-09-24 20:24:00 76 mm[Hg] Unive rsity of pressure [place] [facility] Heart rate 2019-09-24 20:24:00 63 /min [facility] [place] [facility] Body temperature 2019-09-24 20:24:00 36.11 Natalie [facility] [place] [facility] Respiratory rate 2019-09-24 20:24:00 18 /min [facility] [place] [facility] Body weight 2019-09-24 20:24:00 82.373 kg [facility] [place] [facility] BMI 2019-09-24 20:24:00 26.06 kg/m2 [facility] [place] [facility] Systolic blood 2019-09-24 20:24:00 155 mm[Hg] Univer sity of pressure [place] [facility] Diastolic blood 2019-09-24 20:24:00 76 mm[Hg] Unive rsity of pressure [place] [facility] Heart rate 2019-09-24 20:24:00 63 /min Universi ty of [facility] [place] [facility] Body temperature 2019-09-24 20:24:00 36.11 Natalie Univ ersity of [facility] [place] [facility] Systolic blood 2019-09-21 20:41:00 149 mm[Hg] Univer sity of pressure [facility] Diastolic blood 2019-09-21 20:41:00 79 mm[Hg] Unive rsity of pressure [facility] Heart rate 2019-09-21 20:41:00 64 /min [facility] Body temperature 2019-09-21 20:41:00 35.78 Natalie Univ ersity of [facility] Respiratory rate 2019-09-21 20:41:00 18 /min Univ ersity of [facility] Body weight 2019-09-21 20:41:00 81.829 kg [facility] BMI 2019-09-21 20:41:00 25.88 kg/m2 [facility] Systolic blood 2019-09-02 11:05:00 188 mm[Hg] Univer sity of pressure [facility] Diastolic blood 2019-09-02 11:05:00 85 mm[Hg] Unive rsity of pressure [facility] Heart rate 2019-09-02 11:05:00 84 /min Universi ty of [facility] Body temperature 2019-09-02 11:05:00 36.89 Natalie Univ [facility] Respiratory rate 2019-09-02 11:05:00 16 /min Univ ersity of [facility] Body height 2019-09-02 11:05:00 177.8 cm [facility]i ty of [facility] Body weight 2019-09-02 11:05:00 79.379 kg [facility] BMI 2019-09-02 11:05:00 25.11 kg/m2 [facility] Oxygen saturation in 2019-09-02 11:05:00 99 /min University Arterial blood by [facility] Pulse oximetry Branch Body temperature 2019-08-10 20:51:00 36.61 Natalie Univ ersity of [facility] Respiratory rate 2019-08-10 20:51:00 22 /min Univ ersity of [facility] Body weight 2019-08-10 20:51:00 80.797 kg [facility] BMI 2019-08-10 20:51:00 27.08 kg/m2 [facility] Oxygen saturation in 2019-08-10 20:51:00 96 /min University of Arterial blood by [facility] Pulse oximetry Branch Systolic blood 2019-07-09 15:45:00 131 mm[Hg] Univer sity of [facility] Diastolic blood 2019-07-09 15:45:00 69 mm[Hg] Unive rsity of [facility] Heart rate 2019-07-09 15:45:00 49 /min [facility] Body temperature 2019-07-09 15:45:00 37 Natalie [facility] Respiratory rate 2019-07-09 15:45:00 20 /min [facility] Body height 2019-07-09 15:45:00 172.7 cm [facility] Body weight 2019-07-09 15:45:00 82.101 kg [facility] BMI 2019-07-09 15:45:00 27.52 kg/m2 [facility] Oxygen saturation in 2019-07-09 15:45:00 98 /min University of Arterial blood by [facility] Pulse oximetry Branch Systolic blood 2019-05-24 18:10:00 132 mm[Hg] Univer sity of [facility] Diastolic blood 2019-05-24 18:10:00 61 mm[Hg] Unive rsity of [facility] Heart rate 2019-05-24 18:10:00 50 /min [facility] Body temperature 2019-05-24 18:10:00 36.56 Natalie [facility] Respiratory rate 2019-05-24 18:10:00 18 /min [facility] Body weight 2019-05-24 18:10:00 82.101 kg [facility] BMI 2019-05-24 18:10:00 27.52 kg/m2 [facility] Body temperature 2019-05-04 17:26:00 36.83 Natalie [facility] Respiratory rate 2019-05-04 17:26:00 20 /min [facility] Body height 2019-05-04 17:26:00 172.7 cm [facility] Body weight 2019-05-04 17:26:00 79.379 kg [facility] BMI 2019-05-04 17:26:00 26.61 kg/m2 [facility] Oxygen saturation in 2019-05-04 17:26:00 98 /min University of Arterial blood by [facility] Pulse oximetry Branch Systolic blood 2019-05-04 17:26:00 139 mm[Hg] Univer sity of [facility] Diastolic blood 2019-05-04 17:26:00 67 mm[Hg] Unive rsity of [facility] Heart rate 2019-05-04 17:26:00 80 /min [facility] Systolic blood 2019-04-20 17:14:00 135 mm[Hg] Univer [facility]ity [facility] Diastolic blood 2019-04-20 17:14:00 80 mm[Hg] Unive rsity of [facility] Heart rate 2019-04-20 17:14:00 80 /min [facility] Body temperature 2019-04-20 17:14:00 36.67 Natalie [facility] Respiratory rate 2019-04-20 17:11:00 20 /min [facility] Body height 2019-04-20 17:11:00 172.7 cm [facility] Body weight 2019-04-20 17:11:00 77.565 kg [facility] BMI 2019-04-20 17:11:00 26.00 kg/m2 [facility] Oxygen saturation in 2019-04-20 17:11:00 98 /min University of Arterial blood by [facility] Pulse oximetry Branch Systolic blood 2018-10-06 13:34:00 127 mm[Hg] Univer [facility]ity [facility] Diastolic blood 2018-10-06 13:34:00 72 mm[Hg] Unive rsity of [facility] Body height 2018-10-06 13:34:00 175.3 cm [facility] Body weight 2018-10-06 13:34:00 81.647 kg [facility] BMI 2018-10-06 13:34:00 26.58 kg/m2 [facility] Procedures Procedure Date / Time Performing Clinician Source Performed AUTHORIZATION FOR 2020-02-18 06:01:00 Doctor Unassigned, No Univ [facility] RELEASE OF PHI [facility] COMP. METABOLIC PANEL 2019-09-02 11:21:00 [place] Mccall [facility] ([id number]) [facility] [place] CBC WITH DIFFERENTIAL 2019-09-02 11:21:[address] [facility] URINALYSIS 2019-09-02 11:21:00 Singer [facility] o f [facility] NOTICE OF PRIVACY 2019-09-02 10:54:46 Doctor Unassigned, No Univ [facility] PRACTICES Name [facility] [place] CONSENT/REFUSAL FOR 2019-09-02 10:54:27 [facility], [facility] PHYSICIAN ORDERS 2019-05-24 05:01:00 Doctor Unassigned, No [facility] URINALYSIS AUTO 2019-05-04 17:32:00 [facility]bie [facility] DISCLOSURE AND CONSENT, 2019-05-04 06:01:00 Doctor Unassigned, N o [facility] MEDICAL AND SURGICAL [facility] Medical [facility] PROCEDURES POCT URINALYSIS AUTO 2019-04-20 17:08:00 oRbbie [facility] ASSIGNMENT OF BENEFITS 2019-04-20 16:53:27 Doctor Unassigned, No [facility] REFERRAL- 2018-10-04 05:01:00 Doctor Unassigned, No [facility] REQUEST/RESPONSE [facility] REFUSAL OF NON-MEDICAL 2018-04-20 06:01:00 Doctor Unassigned, No [facility] Plan of Care Planned Activity Planned Date Details Comments Source Instructions [facility] Practice Encounters Start End Encounter Admission Attending Care Care Encounter Source Date/Time Date/Time Type Type Clinicians Facility Department ID 2021-01-02 Emergency [facility] [id number] Univers 14:31:[address] [facility] 2021-01-02 Emergency [facility] [id number] Univers 03:17:[address] [facility] 2020-12-[address] [facility] Surgery [id number] SLE 12:16:46 ZOYA 2020-12-10 Inpatient ER COLT MOLINA G[facility] [id number] [facility] 12[facility] 2021-01-07 2021-01-07 Telephone [facility] [id number] Univers 00:00:00 00:00:00 Eduardo Sandhu HEALTH 350.1.13.10 it y of [place] 4.2.7.2.686 Bran as ARISTEO?BLEA [phone] Ms delia THOMAS [address] [place] [address] OFFICE [facility] 2021-01-05 2021-01-05 Telephone [facility] 1.2.840.114 [id number] Univers 00:00:00 00:00:00 Eduardo Sandhu HEALTH 350.1.13.10 it y of [place] 4.2.7.2.686 Bran as ARISTEO?BLEA [phone] Ms delia THOMAS [address] [place] [address] 2020-10-14 2020-10-14 Telephone [facility] 1.2.840.114 [id number] Univers 00:00:00 00:00:00 dEuardo Sandhu Health 350.1.13.10 it y of Surgical 4.2.7.2.686 Bran as Specialti [phone] Ms pemaal es 198 [facility] 2020-10-09 2020-10-09 Alton [facility]ending [facility] to [facility] 1.2.840.114 [id number] Univers 00:00:00 00:00:00 Eduardo Sandhu Health 350.1.13.10 it y of Surgical 4.2.7.2.686 Bran as Specialti [id number] Ms dical es 198 [facility] 2020-09-11 2020-09-11 [facility] 1.2.840.114 [id number] Univers 00:00:00 00:00:00 [facility] 350.1.13.10 it y of Surgical 4.2.7.2.686 Bran as Specialti [id number] Ms dical es 198 [facility] 2020-08-14 2020-08-14 [facility] 1.2.840.114 [id number] Univers 00:00:00 00:00:00 [facility] 350.1.13.10 it y of Surgical 4.2.7.2.686 Bran as Specialti [phone] Me dical es [address] [place] 2020-07-07 2020-07-07 [facility] 1.2.840.114 [id number] [facility] 00:00:00 00:00:00 [facility] 350.1.13.10 it y of Surgical 4.2.7.2.686 Bran as Specialti [id number] Me dical es [address] [place] 2020-07-07 2020-07-07 [facility] 1.2.840.114 [id number] 00:00:00 00:00:00 [facility] 350.1.13.10 Surgical 4.2.7.2.686 Specialti [phone] es 198 [place] 2020-06-12 2020-06-12 Outpatient Ajibade_O_A VFP VFP [id number] [facility] 10:56:00 10:56:00 H [id number] [facility] 2020-05-26 2020-05-26 Telephone [facility] 1.2.840.114 [id number] [facility] 00:00:00 00:00:00 [facility] 350.1.13.10 it y of Surgical 4.2.7.2.686 Bran as Specialti [phone] Ms dical es [address] [place] 2020-05-26 2020-05-26 Telephone [facility] 1.2.840.114 [id number] 00:00:00 00:00:00 [facility] 350.1.13.10 Surgical 4.2.7.2.686 Specialti [id number] es 198 [place] 2020-03-20 2020-03-20 Outpatient Ajibade_O_A VFP VFP [phone] [place] 05:22:00 05:22:00 H [id number] Family Practic e 2020-03-20 2020-03-20 Outpatient Ajibade_O_A VFP VFP [id number] [place] 05:22:00 05:22:00 H [id number] Family [facility] e 2020-03-20 2020-03-20 Outpatient Ajibade_O_A VFP VFP [phone] [facility] 05:22:00 05:22:00 H [id number] Family Practic e 2020-03-20 2020-03-20 Telephone Kory [facility] 1.2.674.003 [id number] [facility] 00:00:00 00:00:00 [facility] 350.1.13.10 it y of Surgical 4.2.7.2.686 Bran as Specialti [id number] Ms dical es 198 [facility] 2020-03-20 2020-03-20 [facility] 1.2.863.702 [id number] 00:00:00 00:00:00 [facility] 350.1.13.10 Surgical 4.2.7.2.686 Specialti [id number] es 198 [place] 2020-03-10 2020-03-10 Outpatient Ajibade[place] [id number] 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 2020-02-18 2020-02-18 Orders Doctor NIRAV 1.2.840.114 [id number] [facility] 00:00:00 00:00:00 Only Unassigned, KENNETH 350.1.13.10 ity of [place] [facility] 4.2.7.2.686 Bran as [id number] [address] 2020-02-18 2020-02-18 Orders Doctor NIRAV 1.2.840.114 [id number] 00:00:00 00:00:00 Only Unassigned, KENNETH 350.1.13.10 [facility] 4.2.7.2.686 [id number] [facility] 2020-01-28 2020-01-28 [facility]phone [facility] 1.2.394.682 [id number] [facility] 00:00:00 00:00:00 [facility] 350.1.13.10 it y of Surgical 4.2.7.2.686 Bran as Specialti [phone] Me dical es 198 [facility] 2020-01-28 2020-01-28 [facility] 1.2.738.509 [id number] 00:00:00 00:00:00 [facility] 350.1.13.10 Surgical 4.2.7.2.686 Specialti [phone] es [address] [place] [address] 2019-12-28 2019-12-28 Emergency ER [facility] Emergency [id number] [facility] 20:07:00 20:07:00 2019-12-21 2019-12-21 Telephone [facility] 1.2.840.114 [id number] Univers 00:00:00 00:00:00 [facility] 350.1.13.10 [place] [phone] Me dical nal [address] [place] [address] 2019-12-21 2019-12-21 Telephone [facility] 1.2.840.114 [id number] 00:00:00 00:00:00 [facility] 350.1.13.10 [place] 4.2.7.2.686 Professio [phone] [address] 2019-12-20 2019-12-20 [facility] [id number]-20 Univers 09:30:00 09:30:00 [facility] [id number] [facility] 2019-12-20 2019-12-20 [facility] [id number] Univers 09:30:00 09:30:00 [facility] 2019-12-10 2019-12-10 [facility] [id number] Q-20 Univers 15:15:00 15:15:00 [facility] 2019-12-10 2019-12-10 [facility] [id number] Univers 15:15:00 15:15:00 [facility] 2019-12-07 2019-12-07 Outpatient R [facility] [id number] Univers 13:00:00 13:00:00 ity [facility] 2019-12-07 2019-12-07 Outpatient R JOYCE [facility] [id number] Univers 13:00:00 13:00:00 ROBBIE ity [facility] 2019-12-07 2019-12-07 Nurse Nurse, [facility] Surgery [facility] 1.2. 840.114 [id number] Univers 10:38:50 11:10:03 Visit Robbie Carton 350.1.13.10 [place] [phone] [address] 2019-12-07 2019-12-07 Nurse Nurse, [facility] 1.2.840.114 [id number] 10:38:50 11:10:03 Visit Surgery [place] 350.1.13.10 [place] 4.2.7.2.686 Professio [phone] [address] 2019-11-20 2019-11-20 Nurse Nurse, [facility] Surgery [facility] 1.2. 840.114 [id number] Univers 13:06:00 13:52:14 Visit Robbie Carton 350.1.13.10 ity [place].2.[place] [phone] [address] 2019-11-20 2019-11-20 Nurse Nurse, [facility] 1.2.840.114 [id number] 13:06:00 13:52:14 Visit Surgery Gu [place] 350.1.13.10 [place] 4.2.7.2.686 Professio [phone] [address] 2019-11-20 2019-11-20 Outpatient R [facility] [id number] Univers 13:00:00 13:00:00 [id number] ity [facility] 2019-11-20 2019-11-20 Outpatient R JOYCE [facility] [id number] Univers 13:00:00 13:00:00 ROBBIE ity [facility] 2019-11-07 2019-11-07 Nurse Nurse, [facility] Surgery [facility] 1.2. 840.114 [id number] Univers 14:34:31 14:49:31 Visit Robbie Car 350.1.13.10 ity of [place].2.[place] [phone] [address] 2019-11-07 2019-11-07 Nurse Nurse, [facility] 1.2.840.114 [id number] 14:34:31 14:49:31 Visit [facility] [place] 350.1.13.10 [place] 4.2.7.2.686 Professio [phone] [address] 2019-11-07 2019-11-07 Outpatient R [facility] [id number] Univers 14:15:00 14:15:00 ity of [facility] 2019-11-07 2019-11-07 Outpatient [facility] [id number] Univers 11:00:00 11:00:00 ity of [facility] 2019-11-07 2019-11-07 Outpatient R [facility] [id number] Univers 11:00:00 11:00:00 [facility] 2019-11-01 2019-11-01 Outpatient Ajibade_O_A VFP VFP [id number] [facility] 04:47:00 04:47:00 H [id number] Family Practic e 2019-09-24 2019-09-24 Office [facility] 1.2.840.114 [id number] Univers 15:17:44 17:03:35 Visit Robbie [place] 350.1.13.10 i ty [place].2.[place] [phone] [address] 2019-09-24 2019-09-24 Office [facility] 1.2.840.114 [id number] 15:17:44 17:03:35 Visit Robbie Kendrick 350.1.13.10 [place] 4.2.7.2.686 Professio [phone] [address] 2019-09-24 2019-09-24 Outpatient R [facility] [id number] Q-20 Univers 16:00:00 16:00:00 [facility] 2019-09-24 2019-09-24 Outpatient R JOYCE [facility] [id number] Univers 16:00:00 16:00:00 ROBBIE ity of [facility] 2019-09-21 2019-09-21 Office Joyce [facility] 1.2.840.114 [id number] Univers 15:33:57 16:14:10 Visit [facility] 350.1.13.10 i ty [place].2.[place] [phone] Ms dical nal [address] [place] [address] 2019-09-21 2019-09-21 Outpatient R JOYCE [facility] [id number] Univers 16:00:00 16:00:00 ROBBIE ity of [facility] 2019-09-21 2019-09-21 Outpatient R JOYCE [facility] [id number] Q-20 Univers 11:00:00 11:00:00 ROBBIE [id number] ity of [facility] 2019-09-19 2019-09-19 Nurse Nurse, Adc Surgery [facility] 1.2. 840.114 [id number] Univers 10:50:18 11:21:35 Visit Robbie Car [place] 350.1.13.10 [place].2.[place] [phone] Ms dical [address] 2019-09-19 2019-09-19 Outpatient R [facility] [id number] Univers 10:45:00 10:45:00 [id number] ity of [facility] 2019-09-19 2019-09-19 Outpatient R [facility] [id number] Univers 10:45:00 10:45:00 ity of [facility] 2019-09-17 2019-09-17 [facility] 1.2.775.584 [id number] Univers 00:00:00 00:00:00 [facility] 350.1.13.10 it y of Surgical 4.2.7.2.686 [place] as Specialti [phone] Ms dical es 198 [facility] 2019-09-17 2019-09-17 [facility] 1.2.346.631 [id number] 00:00:00 00:00:00 Eduardo Sandhu [place] 350.1.13.10 Surgical 4.2.7.2.686 Specialti [id number] es [address] [place] 2019-09-02 2019-09-02 Emergency [facility] 1.2.499.806 [id number] Univers 05:59:14 07:38:00 Chico Kendrick 350.1.13.10 i [place] [phone] [facility] 084 [place] 2019-09-02 2019-09-02 Orders Doctor NIRAV 1.2.840.114 [id number] Univers 00:00:00 00:00:00 Only Unassigned, KENNETH 350.1.13.10 ity of [place] [facility] 4.2.7.2.686 Bran as [phone] [facility] 009 [place] 2019-08-30 2019-08-30 Telephone [facility] 1.2.840.114 [id number] Univers 00:00:00 00:00:00 Eduardo Elliott 350.1.13.10 it y of Surgical 4.2.7.2.686 [place] as Specialti [phone] Me dical es 198 [facility] 2019-08-24 2019-08-24 [facility] [id number] Q-20 Univers 14:00:00 14:00:00 ROBBIE [id number] ity [facility] 2019-08-24 2019-08-24 [facility] [id number] Univers 14:00:00 14:00:00 ROBBIE ity [facility] 2019-08-10 2019-08-10 Office [facility] 1.2.840.114 [id number] Univers 15:15:27 16:21:06 Visit Robbie Kendrick 350.1.13.10 [place].2.[place] [facility] [phone] Me dical nal [address] [facility] 2019-08-10 2019-08-10 [facility] [id number] Q-20 Univers 16:00:00 16:00:00 ROBBIE ity [facility] 2019-08-10 2019-08-10 Outpatient R JOYCE [facility] [id number] Univers 16:00:00 16:00:00 ROBBIE ity of [facility] 2019-07-23 2019-07-23 Outpatient R JOYCE [facility] [id number] Univers 10:00:00 10:00:00 [facility] [id number] ity [facility] 2019-07-23 2019-07-23 Outpatient R JOYCE [facility] [id number] Univers 10:00:00 10:00:00 [facility] 2019-07-09 2019-07-09 [facility] 1.2.840.114 [id number] Univers 10:27:37 11:55:[address] [facility] 350.1.13.10 i ty [facility] 4.2.7.2.686 [place] Profess[place] [phone] Ms dical [address] 2019-07-09 2019-07-09 Outpatient R JOYCE [facility] [id number] Q-[id number] Univers 11:00:00 11:00:00 [facility] [id number] ity of [facility] 2019-07-09 2019-07-09 Outpatient R JOYCE [facility] [id number] Univers 11:00:00 11:00:00 [facility] 2019-07-04 2019-07-04 Outpatient R [facility] [id number] Univers 09:00:00 09:00:00 [id number] ity of [facility] 2019-07-04 2019-07-04 Outpatient R [facility] [id number] Univers 09:00:00 09:00:00 ity of [facility] 2019-07-03 2019-07-03 Outpatient R [facility] [id number] Univers 10:00:00 10:00:00 [id number] ity of [facility] 2019-07-03 2019-07-03 Outpatient R [facility] [id number] Univers 10:00:00 10:00:00 ity [facility] 2019-07-03 2019-07-03 Nurse Nurse, Adc Surgery [facility] 1.2. 840.114 [id number] Univers 09:29:30 09:53:59 Visit Robbie Car [place] 350.1.13.10 [place] [phone] Ms dical nal 204 [facility] 2019-06-18 2019-06-18 Telephone Juanita [facility] 1.2.840.114 [id number] Univers 00:00:00 00:00:00 [facility] 350.1.13.10 it y of Surgical 4.2.7.2.686 Bran as Specialti [id number] Ms dical es 198 [facility] 2019-06-06 2019-06-06 Nurse Nurse, [facility] Surgery [facility] 1.2. 840.114 [id number] Univers 09:58:45 10:28:51 Visit Robbie Car 350.1.13.10 [place] of [place].2.[place] [phone] Ms dical nal 204 [facility] 2019-06-06 2019-06-06 Outpatient R [facility] [id number] Univers 09:45:00 09:45:00 [id number] ity [facility] 2019-06-06 2019-06-06 [facility] [id number] Univers 09:45:00 09:45:00 ROBBIE ity [facility] 2019-06-06 2019-06-06 [facility] 1.2.056.385 [id number] Univers 00:00:00 00:00:00 Gloria Fernandez [place] 350.1.13.10 [place] [phone] Ms dical nal 377 [facility] 2019-05-24 2019-05-24 [facility] [id number] Q-20 Univers 16:15:00 16:15:00 ROBBIE [id number] ity [facility] 2019-05-24 2019-05-24 Outpatient [facility] [id number] Univers 16:15:00 16:15:00 ROBBIE ity [facility] 2019-05-24 2019-05-24 Office [facility] 1.2.840.114 [id number] Univers 12:43:32 14:03:24 Visit Robbie [place] 350.1.13.10 i ty [place]2.7.2.[place] [phone] Ms dical [facility] 204 [facility] 2019-05-24 2019-05-24 Outpatient R [facility] [id number] Univers 13:00:00 13:00:00 ROBBIE ity [facility] 2019-05-24 2019-05-24 Orders Doctor NIRAV 1.2.840.114 [id number] Univers 00:00:00 00:00:00 Only Unassigned, KENNETH 350.1.13.10 ity of [facility] 4.2.7.2.686 Bran as [phone] [address] 2019-05-21 2019-05-21 Telephone [facility] 1.2.840.114 [id number] Univers 00:00:00 00:00:00 [facility] 350.1.13.10 it y of Surgical 4.2.7.2.686 Bran as Specialti [phone] Ms dical 198 [facility] 2019-05-04 2019-05-04 Office Joyce [facility] 1.2.840.114 [id number] Univers 11:01:36 12:30:18 Visit Rm, Adc Surg Spec Procedure [place] 3 50.1.13.10 [place] [phone] Ms dicst. [facility] 204 [facility] 2019-05-04 2019-05-04 Outpatient R [facility] [id number] Univers 11:00:00 11:00:00 ROBBIE ity [facility] 2019-05-04 2019-05-04 Orders Doctor GASTELUM 1.2.840.114 [id number] Univers 00:00:00 00:00:00 Only Unassigned, KENNETH 350.1.13.10 ity of [facility] 4.2.7.2.686 Bran as [phone] [address] 2019-04-25 2019-04-25 [facility] [phone] [facility] 07:22:00 07:22:00 _J_ 28847 Family Practic e 2019-04-24 2019-04-24 Outpatient PAUL, [facility] [id number] [address] [place] [address] 00:00:00 00:00:00 JULIET Martinez [facility] 2019-04-23 2019-04-23 Telephone Joyce [facility] 1.2.840.114 [id number] Univers 00:00:00 00:00:00 [facility] 350.1.13.10 i [place] [phone] Ms dical nal 204 [facility] 2019-04-20 2019-04-20 Outpatient R JOYCE [facility] [id number] Univers 11:00:00 12:03:25 ROBBIE ity [facility] 2019-04-20 2019-04-20 [facility] 1.2.840.114 [id number] Univers 10:57:47 12:03:25 Visit Robbie [place] 350.1.13.10 i [place] [phone] Ms dical nal 204 [facility] 2019-04-20 2019-04-20 Orders Doctor NIRAV 1.2.840.114 [id number] Univers 00:00:00 00:00:00 Only Unassigned, KENNETH 350.1.13.10 ity of [facility] 4.2.7.2.686 Bran as [phone] [address] 2018-10-31 2018-10-31 [facility] 1.2.980.950 [id number] Univers 00:00:00 00:00:00 zuuka! 350.1.13.10 it y of Surgical 4.2.7.2.686 Bran as Specialti [phone] Ms dical es 198 [facility] 2018-10-06 2018-10-06 [facility] 1.2.807.172 [id number] Univers 08:24:12 09:20:41 Visit Eduardo Whittl 350.1.13.10 it y of Surgical 4.2.7.2.686 Bran as Specialti [phone] Ms dical es 198 [place] 2018-10-04 2018-10-04 Orders Doctor NIRAV 1.2.840.114 [id number] Univers 00:00:00 00:00:00 Only Unassigned, KENNETH 350.1.13.10 ity of [facility] 4.2.7.2.686 Bran as [phone] [facility] 009 [place] 2018-04-20 2018-04-20 Orders Doctor NIRAV 1.2.840.114 [id number] Univers 00:00:00 00:00:00 Only Unassigned, KENNETH 350.1.13.10 ity of [facility] 4.2.7.2.686 Bran as [phone] [address] Results Test Description Test Time Test Comments Results Result Comments Source BLOOD CULTURE 2020-01-03 10:00:00 Test Item Value Reference Range Interpretation Comme nts CULTURE (BEAKER) (test code = 1095) No growth in 5 days BLOOD [id number] 10:00:00 Test Item Value Reference Range Interpretation Comments CULTURE (BEAKER) (test No growth in 5 days code = 1095) CT, CTA, [id number] 09:40:00Unlisted Reason for Exam - Click Yes and Enter Reason Below->YesUnlisted Reason for Exam->s/p TAVR and SAVR with gradientL[facility]: [facility] : 1935 Sex: MAddendum BeginsREPORT STATUS:A I agree with the nonvascular findi ngs detailed by Dr. Cruzito. Additional nonvascular findings include: Diffuse bronchial wall [...] descending aorta; 2..6 cm at the diaphragmatic hiatus.NON-VASCULAR:- The thyroid gland is unremarkable. The chest [...] as described above. Mild bibasal pleural effusions identified, left greater than right. Pleural calcification identified suggesting prior asbestos exposure. An addendum dictated thereafter, regarding the pulmonary findings, if needed. 5. Other findings as described above. 6. An addendum will be dictated regarding the non-vascular findings by the Platform Builder Radiologist. Major vascular findings were discussed with Dr. Valladares at the time of dictation. Signed: Cruzito Edwardo Berg Verified Date/Time: 01/02/2020 16:43:17 Reading Location: [place] [address] [address] Reading Room COMPREHENSIVE METABOLIC [id number] 07:24:00 Test Item Value Reference Range Interpretation [...] 347) EGFR (BEAKER) (test 93 mL/min/1.73 ESTIMA CAITLIN GFR IS code = 1092) sq m NOT ACCURATE CREATININE CLEARANCE IN PREDICTING GLOMERULAR FILTRATION RATE . ESTIMATED GFR I S NOT APPLICABLE FOR DIALYSIS PATIEN TS. Mineral Technologist ID - QUINCY [id number] 07:24:00 Test Item Value Reference Range Interpretation Comments MAGNESIUM (BEAKER) (test code = 1.8 mg/dL 1.6-2.6 627) Mineral Technologist ID - QUINCY [id number] 07:24:00 Test Item Value Reference Range Interpretation Comments PHOSPHORUS (BEAKER) (test code = 2.7 mg/dL 2.3-4.7 604) Mineral Technologist ID - QUINCY FPROTHROMBIN TIME/[id number] 07:00:00 Test Item Value Reference Range Interpretation Comments PROTIME (BEAKER) (test code = 14.0 seconds 11.9-14.2 759) INR (BEAKER) (test code = 370) 1.11 <=5.90 Effective 08/02/2018: PT Reference Range ChangeNew: 11.9-14.2 Previous: 11.7- 14.7RECOMMENDED COUMADIN/WARFARIN INR THERAPY RANGESSTANDARD DOSE: 2.0-3.0 Includes: PROPHYLAXIS for venous thrombosis, systemic embolization; TREATMENT for venous thrombosis and/or pulmonary embolus.HIGH RISK: Target INR is2.5-3.5 for patients wiht mechanical heart valves.While on warfarin.CBC W/PLT COUNT & AUTO [id number] 06:56:00 Test Item Value Reference Range Interpretation [...] PERCENT (BEAKER) (test code = 2801) PROTHROMBIN [id number] 18:01:00 Test Item Value Reference Range Interpretation [...] INR is2.5-3.5 for patients wiht mechanical heart valves.[id number] 06:38:00 Test Item Value Reference Range Interpretation Comments MAGNESIUM (BEAKER) (test code = 1.8 mg/dL 1.6-2.6 627) Mineral Technologist ID - EDASICOMPREHENSIVE METABOLIC [id number] 06:38:00 Test Item Value Reference Range Interpretation [...] 347) EGFR (BEAKER) (test 93 mL/min/1.73 ESTIMA CAITLIN GFR IS code = 1092) sq m NOT ACCURATE CREATININE CLEARANCE IN PREDICTING GLOMERULAR FILTRATION RATE . ESTIMATED GFR I S NOT APPLICABLE FOR DIALYSIS PATIEN TS. Mineral Technologist ID - [id number] 06:38:00 Test Item Value Reference Range Interpretation Comments PHOSPHORUS (BEAKER) (test code = 2.7 mg/dL 2.3-4.7 604) Mineral Technologist ID - EDASICBC W/PLT COUNT & AUTO [id number] 06:03:00 Test Item Value Reference Range Interpretation [...] PERCENT (BEAKER) (test code = 2801) MRSA [id number] 15:50:00 Test Item Value Reference Range Interpretation Comments CULTURE (BEAKER) (test code No MRSA isolated = 1095) FL, ESOPH, SWALLOW FUNCTION, WITH CINE OR [id number] 15:38:00D/c NGT prior to the study and then attemptReason for exam:->dysphagea [facility] 1935 Sex: MFINAL [...] Wilkinson Verified Date/Time: 01/01/2020 15:38:45 Reading Location: [address] Reading Room [id number] 06:21:00 Test Item Value Reference Range Interpretation Comments MAGNESIUM (BEAKER) (test code = 1.9 mg/dL 1.6-2.6 627) Mineral Technologist ID - edasiCOMPREHENSIVE METABOLIC [id number] 06:21:00 Test Item Value Reference Range Interpretation [...] 347) EGFR (BEAKER) (test 90 mL/min/1.73 ESTIMA CAITLIN GFR IS code = 1092) sq m NOT ACCURATE CREATININE CLEARANCE IN PREDICTING GLOMERULAR FILTRATION RATE . ESTIMATED GFR I S NOT APPLICABLE FOR DIALYSIS PATIEN TS. Mineral Technologist ID - [id number] 06:21:00 Test Item Value Reference Range Interpretation Comments PHOSPHORUS (BEAKER) (test code = 1.8 mg/dL 2.3-4.7 L 604) Mineral Technologist ID - edasiCBC W/PLT COUNT & AUTO [id number] 05:52:00 Test Item Value Reference Range Interpretation [...] code = 416) BASOPHILS ABSOLUTE COUNT (BEAKER) 0.03 K/ L 0.01-0.08 (test code = 417) IMMATURE GRANULOCYTES-RELATIVE 1 % 0-1 PERCENT (BEAKER) (test code = 2801) POCT-GLUCOSE [id number] 19:08:00 Test Item Value Reference Range Interpretation Comments POC-GLUCOSE METER 73 mg/dL 70-110 : TESTED Rebecca T [facility] 6720 (BEAKER) (test code = [place], 1538) [address]: Mineral Technologist/Techni cory ID = [id number] for ALEXANDRO EPSTEIN POCT-GLUCOSE [id number] 14:49:00 Test Item Value Reference Range Interpretation Comments POC-GLUCOSE METER 74 mg/dL 70-110 : TESTED A T [facility] 6720 (BEAKER) (test code = [place], 1538) [address]: Mineral Technologist/Techni cory ID = [id number] for BRETT-STAFFOR TRELL Chauhan MRSA [id number] 12:26:00 Test Item Value Reference Range Interpretation Comments CULTURE (BEAKER) (test code No MRSA isolated = 1095) SPUTUM CULTURE + GRAM [id number] 12:26:00 Test Item Value Reference Range Interpretation Comments CULTURE (BEAKER) 1+ Normal respiratory (test code = 1095) regina present GRAM STAIN RESULT 4+ WBCs (BEAKER) (test code = 1123) GRAM STAIN RESULT 0-5 epithelial cells (BEAKER) (test code = 80490) GRAM STAIN RESULT <1+ gram positive cocci (BEAKER) (test code = in pairs and clusters 36663) COMPREHENSIVE METABOLIC [id number] 06:48:00 Test Item Value Reference Range Interpretation [...] 347) EGFR (BEAKER) (test 88 mL/min/1.73 ESTIMA CAITLIN GFR IS code = 1092) sq m NOT ACCURATE CREATININE CLEARANCE IN PREDICTING GLOMERULAR FILTRATION RATE . ESTIMATED GFR I S NOT APPLICABLE FOR DIALYSIS PATIEN TS. Mineral Technologist ID - MERON [id number] 06:48:00 Test Item Value Reference Range Interpretation Comments MAGNESIUM (BEAKER) (test code = 2.0 mg/dL 1.6-2.6 627) Mineral Technologist ID - PIENRIKE [id number] 06:48:00 Test Item Value Reference Range Interpretation Comments PHOSPHORUS (BEAKER) (test code = 2.0 mg/dL 2.3-4.7 L 604) Mineral Technologist ID - MERON JASEN/S, RENAL, [id number] 06:39:00Reason for exam:- >worsening kidney function/ metabolic acidosis [facility] : 1935 Sex: [...] Gerry Sinha MDReport Verified Date/Time: 12/31/2019 06:39:51 CBC W/PLT COUNT & AUTO [id number] 06:11:00 Test Item Value Reference Range Interpretation [...] = 2801) RAD, CHEST, 1 VIEW, NON [id number] 01:43:00Reason for exam:->respiratory failureShould this be performed at the bedside?->Yes [facility] : 1935 Sex: [...] Gerry Sinha MDReport Verified Date/Time: 12/31/2019 01:43:07 CBC W/PLT COUNT & AUTO [id number] 18:42:00 Test Item Value Reference Range Interpretation [...] 0-1 PERCENT (BEAKER) (test code = 2801) VANCOMYCIN LEVEL, [id number] 09:49:00 Test Item Value Reference Range Interpretation Comments VANCOMYCIN TROUGH (BEAKER) (test 9.6 ug/mL 10.0-20.0 L code = 522) Mineral Technologist ID - SUHA CCOMPREHENSIVE METABOLIC [id number] 05:31:00 Test Item Value Reference Range Interpretation [...] 347) EGFR (BEAKER) (test 62 mL/min/1.73 ESTIMA CAITLIN GFR IS code = 1092) sq m NOT ACCURATE CREATININE CLEARANCE IN PREDICTING GLOMERULAR FILTRATION RATE . ESTIMATED GFR I S NOT APPLICABLE FOR DIALYSIS PATIEN TS. Mineral Technologist ID - BRANDONENRIKE [id number] 05:13:00 Test Item Value Reference Range Interpretation Comments MAGNESIUM (BEAKER) (test code = 1.6 mg/dL 1.6-2.6 627) Mineral Technologist ID - MERON [id number] 05:13:00 Test Item Value Reference Range Interpretation Comments PHOSPHORUS (BEAKER) (test code = 2.6 mg/dL 2.3-4.7 604) Mineral Technologist ID - MERON LCBC W/PLT COUNT & AUTO [id number] 04:43:00 Test Item Value Reference Range Interpretation Comments WHITE BLOOD CELL COUNT 19.3 K/ L 3.5-10.5 H (BEAKER) (test code = 775) RED BLOOD CELL COUNT 3.87 M/ L 4.63-6.08 L (BEAKER) (test code = 761) HEMOGLOBIN (BEAKER) 11.7 GM/DL 13.7-17.5 L Discorda nt HGB (test code = 410) results co mpared to previous result s; clinical correl ation required.812170 HEMATOCRIT (BEAKER) 36.4 % 40.1-51.0 L (test [...] GRANULOCYTES-RELATIVE PERCENT (BEAKER) (test code = 2801) BLOOD GAS, [id number] 04:36:00 Test Item Value Reference Range Interpretation [...] (BEAKER) (test code = 1819) 50.0 CORTISOL,60 [id number] 03:53:00 Test Item Value Reference Range Interpretation [...] indicated based on test results and the cli nical condition of the patient. Additional information, including treatment recommendations, is available in critically ill patients, approved by the Pharmacy, Nutrition, and Therapeutics Committee on 02/14/2004 and available through the Pharmacy Policy and Procedure Section on The Source.Mineral Technologist ID - PIAYA LCORTISOL,30 [id number] 03:52:00 Test Item Value Reference Range Interpretation [...] indicated based on test results and the cli nical condition of the patient. Additional information, including treatment recommendations, is available in critically ill patients, approved by the Pharmacy, Nutrition, and Therapeutics Committee on 02/14/2004 and available through the Pharmacy Policy and Procedure Section on The Source.Mineral Technologist ID - PIAYA LRAD, CHEST, 1 VIEW, NON [id number] 03:30:00Reason for exam:- >respiratory failureShould this be performed at the bedside?->Yes [facility] : 1935 Sex: [...] surgical changes.Additional findings: None. Signed: Anastasiia Aponte MDReport Verified Date/Time: 12/30/2019 03:30:42 CORTISOL,[id number] 01:31:00 Test Item Value Reference Range Interpretation [...] indicated based on test results and the cli nical condition of the patient. Additional information, including treatment recommendations, is available in critically ill patients, approved by the Pharmacy, Nutrition, and Therapeutics Committee on 02/14/2004 and available through the Pharmacy Policy and Procedure Section on The Source.Mineral Technologist ID - PIAYA LCREATININE, RANDOM [id number] 19:52:00 Test Item Value Reference Range Interpretation Comments CREATININE URINE (BEAKER) (test 310.8 mg/dL code = 375) Reference Range: No NormalsOperator ID - DBSODIUM, RANDOM [id number] 19:52:00 Test Item Value Reference Range Interpretation Comments SODIUM URINE (BEAKER) (test code = < meq/L 243) Reference Range: No NormalsOperator ID - DBPOCT-GLUCOSE [id number] 18:14:00 Test Item Value Reference Range Interpretation Comments POC-GLUCOSE METER 105 mg/dL 70-110 : TESTED A T [facility] 6720 (BEAKER) (test code = [place], 1538) [address]: Mineral Technologist/Techni cory ID = [id number] for Laura Bauman BASIC METABOLIC [id number] 16:24:00 Test Item Value Reference Range Interpretation [...] 697) EGFR (BEAKER) (test 60 mL/min/1.73 ESTIMA CAITLIN GFR IS code = 1092) sq m NOT ACCURATE CREATININE CLEARANCE IN PREDICTING GLOMERULAR FILTRATION RATE . ESTIMATED GFR I S NOT APPLICABLE FOR DIALYSIS PATIEN TS. Mineral Technologist ID - [id number] 16:23:00 Test Item Value Reference Range Interpretation Comments MAGNESIUM (BEAKER) (test code = 1.6 mg/dL 1.6-2.6 627) Mineral Technologist ID - DBBLOOD GAS, [id number] 16:09:00 Test Item Value Reference Range Interpretation [...] = 1819) 50.0 RAD, ABDOMEN/KUB, 1 VIEW [id number] 12:40:00Reason for exam:->NGT placement [facility] : 1935 Sex: MFINAL [...] Calcifications along the diaphragm. Signed: Gualberto Levy Verified Date/Time: 12/29/2019 12:40:58 Reading Location: [address] Body Reading Room B-TYPE NATRIURETIC FACTOR (BNP)2019-12-29 11:35:00 Test Item Value Reference Range Interpretation Comments B-TYPE NATRIURETIC PEPTIDE (BEAKER) 193 pg/mL 0-100 H (test code = 700) Mineral Technologist ID - MAR CLACTIC ACID, [id number] 11:25:00 Test Item Value Reference Range Interpretation Comments LACTATE BLOOD ARTERIAL (2) 3.3 mmol/L 0.5-2.2 H (BEAKER) (test code = 2874) Mineral Technologist ID - MAR CLACTIC ACID, [id number] 07:06:00 Test Item Value Reference Range Interpretation Comments LACTATE BLOOD VENOUS 3.49 mmol/L 0.50-2.20 H Specime n slightly (2) (BEAKER) (test hemolyzed code = 2872) Mineral Technologist ID - EDASIURINALYSIS W/ REFLEX URINE [id number] 06:56:00 Test Item Value Reference Range Interpretation [...] Many 1585) SOURCE(BEAKER) (test code = 2795) Mineral Technologist ID - [auto]Mineral Technologist ID - techPROTHROMBIN TIME/[id number] 06:54:00 Test Item Value Reference Range Interpretation [...] INR is2.5-3.5 for patients wiht mechanical heart valves.[id number] 06:54:00 Test Item Value Reference Range Interpretation Comments PARTIAL THROMBOPLASTIN TIME 30.3 seconds 22.5-36.0 (DAVE) (test code = 760) RAD, CHEST, 1 VIEW, NON [id number] 06:51:00Reason for exam:->ETT placementShould this be performed at the bedside?->Yes [facility] : 1935 Sex: MFINAL REPORT CLINICAL INDICATION: Endotracheal tube positioning Comparison: 12/29/2019 The tip of an endotracheal tube is above the kira at the level of the inferior clavicular heads. The cardiomediastinal contours are stable. Central pulmonary vascular congestion and bilateral parenchymal and pleural opacities are unchanged. There is no pneumothorax. Signed: Gerry Sinha MDReport Verified Date/Time: 12/29/2019 06:51:17 TSH/FREE T4 IF INDICATED 2019-12-29 06:47:00 Test Item Value Reference Range Interpretation Comments THYROID STIMULATING HORMONE 1.830 uIU/mL 0.350-4.940 (DAVE) (test code = 772) Mineral Technologist ID - ETHANZHANG [id number] 06:40:00 Test Item Value Reference Range Interpretation Comments TROPONIN I (DAVE) (test code = 0.13 ng/mL 0.00-0.03 H [...] failure, acidosis, acute neurological disease, and persistent tachyarrhythmia.Mineral Technologist ID - LOU [id number] 06:36:00 Test Item Value Reference Range Interpretation [...] failure, acidosis, acute neurological disease, and persistent tachyarrhythmia.Mineral Technologist ID - EDASICBC W/PLT COUNT & AUTO [id number] 04:56:00 Test Item Value Reference Range Interpretation [...] PERCENT (BEAKER) (test code = 2801) TROPONIN [id number] 04:43:00 Test Item Value Reference Range Interpretation [...] failure, acidosis, acute neurological disease, and persistent tachyarrhythmia.Mineral Technologist ID - EDASICOMPREHENSIVE METABOLIC [id number] 04:37:00 Test Item Value Reference Range Interpretation [...] 347) EGFR (BEAKER) (test 90 mL/min/1.73 ESTIMA CAITLIN GFR IS code = 1092) sq m NOT ACCURATE CREATININE CLEARANCE IN PREDICTING GLOMERULAR FILTRATION RATE . ESTIMATED GFR I S NOT APPLICABLE FOR DIALYSIS PATIEN TS. Mineral Technologist ID - [id number] 04:37:00 Test Item Value Reference Range Interpretation Comments MAGNESIUM (BEAKER) (test code = 1.7 mg/dL 1.6-2.6 627) Mineral Technologist ID - [id number] 04:37:00 Test Item Value Reference Range Interpretation Comments PHOSPHORUS (BEAKER) (test code = 3.7 mg/dL 2.3-4.7 604) Mineral Technologist ID - EDASIRAD, CHEST, 1 VIEW, NON [id number] 04:27:00Reason for exam:->ETT positionShould this be performed at the bedside?->Yes [facility] : 1935 Sex: MFINAL REPORT CLINICAL INDICATION: Support lines. Comparison: The tip of an endotracheal tube is in good position above the kira at the level of the midclavicular heads. The cardiomediastinal contours are stable. Bilateral parenchymal and pleural opacities are unchanged. There is no pneumothorax. Signed: Gerry Sinha MDReport Verified Date/Time: 12/29/2019 04:27:00 SARS-COV2/RT-PCR ([facility])2019-12-29 04:15:00 Test Item Value Reference Range Interpretation Comments SARS-COV2/RT-PCR (test Negative Not Detected, Negative, code = 1093783) See external report for linked test SARS-COV-2 PERFORMING LAB [facility] ERROL (test code = 7144630) Negative result for this test determines that [...] individuals suspected of COVID-19 by their healthcare provider.This test [...] 564(g) of the Act.Fact Sheet for Healthcare Providers:https://www.[employer]or[employer]/sites/default/files/product/documents/Fact_Shee i_BL_Xhgmtwjdz_Evex_DVCP-LmA-1.pdfFact Sheet for Healthcare Patients:https://www.[employer]/sites/default/files/product/ documents/Mhhe_Anwhf_Uhtvuplg_Ynkh_NVOI-WdH-1.pdfPerforming Laboratory:[address], [place] [address]XBDY-IMKOI GASES, [id number] 04:14:00 Test Item Value Reference Range Interpretation Comments TEMP, CELSIUS-POC 98.5 (BEAKER) (test code = 1834) FIO2-POC (BEAKER) 60 (test code = 1835) PH, ARTERIAL-POC 7.285 7.350-7.450 L (BEAKER) (test code = 1836) PCO2, ARTERIAL-POC 53.5 mm Hg 35.0-45.0 H (BEAKER) (test code = 1837) PO2, ARTERIAL-POC 66.0 mm Hg 80.0-90.0 L (BEAKER) (test code = 1838) SO2, ARTERIAL-POC 90.0 % 96.0-97.0 L (BEAKER) (test code = 1839) HCO3, ARTERIAL-POC 25.5 meq/L 21.0-29.0 (BEAKER) (test code = 1840) BASE EXCESS, -1.0 meq/L -2.0-3.0 : TESTED AT [facility] [address] ARTERIAL-POC [facility], (BEAKER) (test code [address]: = 1841) Mineral Technologist/Techni cory ID = [id number] for DONNELL AVILES [id number] 04:14:00 Test Item Value Reference Range Interpretation Comments POC-SODIUM ([facility]) 141 meq/L 135-148 : TESTED AT [place] [address] (test code = 1542) [place], [address]: Mineral Technologist/Techni cory ID = [id number] for DONNELL GERMAIN [id number] 04:14:00 Test Item Value Reference Range Interpretation Comments POC-POTASSIUM 3.6 meq/L 3.6-5.5 : TESTED AT [place] [address] ([facility]) (test code [facility], = 1540) [address]: Mineral Technologist/Techni cory ID = [id number] for DONNELL GERMAIN [id number] 04:14:00 Test Item Value Reference Range Interpretation Comments POC-HEMOGLOBIN 16.3 g/dL 13.0-16.8 : TESTED AT [place] [address] ([facility]) (test code [facility], = 1856) [address]: Mineral Technologist/Techni cory ID = [id number] for DONNELL GERMAIN [id number] 04:14:00 Test Item Value Reference Range Interpretation Comments POC-HEMATOCRIT 48 % 40-50 : Mineral Technologist/Te chnician ID = ([facility]) (test code = 328676 for DONNELL GERMAIN 1857) POCT-CALCIUM [id number] 04:14:00 Test Item Value Reference Range Interpretation Comments POC-CALCIUM IONIZED 1.18 mmol/L 1.12-1.27 : TESTED AT [facility] ([facility]) (test code = [facility] [address] [facility] 1536) [place], [address]: Mineral Technologist/Techni cory ID = [id number] for DONNELL GERMAIN [id number] 04:14:00 Test Item Value Reference Range Interpretation Comments POC-GLUCOSE ([facility]) 145 mg/dL 70-110 H : TESTE D AT [place] [address] (test code = 1855) [facility] [place], [address]: Mineral Technologist/Techni cory ID = [id number] for DONNELL GERMAIN CBC W/PLT COUNT & AUTO [id number] 23:29:00 Test Item Value Reference Range Interpretation Comments WHITE BLOOD CELL COUNT ([facility]) 13.1 K/ L 3.5-10.5 H (test code [...] (BEAKER) (test code = 2801) BASIC METABOLIC [id number] 23:07:00 Test Item Value Reference Range Interpretation [...] 697) EGFR (BEAKER) (test 79 mL/min/1.73 ESTIMA CAITLIN GFR IS code = 1092) sq m NOT ACCURATE CREATININE CLEARANCE IN PREDICTING GLOMERULAR FILTRATION RATE . ESTIMATED GFR I S NOT APPLICABLE FOR DIALYSIS PATIEN TS. Mineral Technologist ID - DBRAD, CHEST, 1 VIEW, NON [id number] 22:49:00Reason for exam:->pre-anesthesiaShould this be performed at the bedside?->Yes [facility] : 1935 Sex: MFINAL [...] MDReport Verified Date/Time: 12/06 22:49:33 Reading Location: [facility] [id number] Transitional Reading Room [facility]. METABOLIC PANEL ([id number])2019-09-02 11:55:00 Test Item Value Reference Range Interpretation Comments NA (test code = 139 mmol/L 135-145 8599410890) K (test code = 4.1 mmol/L 3.5-5 3132846320) CL (test code = 104 mmol/L 98-108 2237186268) CO2 TOTAL (test code = 29 mmol/L 23-31 4691367425) AGAP (test code = 2-16 0805695584) BUN (test code = 21 mg/dL 7-23 0285685812) GLUCOSE (test code = 99 mg/dL 70-110 9731161482) CREATININE (test code 0.86 mg/dL 0.6-1.25 = 2526938497) TOTAL BILI (test code 0.7 mg/dL 0.1-1.1 = 7457449641) CALCIUM (test code = 9.3 mg/dL 8.6-10.6 1858257911) T PROTEIN (test code = 7.2 g/dL 6.3-8.2 8663277163) ALBUMIN (test code = 4.2 g/dL 3.5-5 2543105362) ALK PHOS (test code = 75 U/L 34-122 3649151029) ALTv (test code = 28 U/L 5-50 1742-6) AST(SGOT) (test code = 33 U/L 13-40 9831517878) eGFR Calculation mL/min/1.73m2 (Non-) (test code = 3819091743) eGFR Calculation mL/min/1.73m2 () (test code = 6603631370) JETT (test code = JETT) Association of Glomerular Filtration Rate (GFR) and Staging of Kidney Disease* + -+ + ---+| GFR (mL/min/1.73 m2) ?| With Kidney Damage ?| ?Without Kidney Damage+ -------+ ------+ ---------+| ?>90 ?| ?Stage one ?| ? Normal ?+ --+ -+ ----+| ?60-89 ?| ?Stage two ?| ? Decreased GFR ? + -+ + ---+| ?30-59 ?| ?Stage three ?| ? Stage three ? + -+ + ---+| ?15-29 ?| ?Stage four ? | ? Stage four ?+ --+ -+ ----+| ?<15 (or dialysis) ? ?| ?Stage five ? | ? Stage five ?+ --+ -+ ----+ *Each stage assumes the associated GFR level has been in effect for at least three months. ?Stages 1 to 5, with or without kidney disease, indicate chronic kidney disease. Notes: Determination of stages one and two (with eGFR >59mL/min/1.73 m2) requires estimation of kidney damage for at least three months as defined by structural or functional abnormalities of the kidney, manifested by either:Pathological abnormalities or Markers of kidney damage (including abnormalities in the composition of the blood or urine or abnormalities in imaging tests). [facility] Test Item Value Reference Range Interpretation Comments APPEARANCE (test code = Clear Clear 3158316345) COLOR (test code = Yellow Yellow 8801444753) PH (test code = 4.8-8.0 8487382590) SP GRAVITY (test code = 1.003-1.030 6980900195) GLU U QUAL (test code = Normal Normal 8024384417) BLOOD (test code = 1+ Negative A 4592208567) KETONES (test code = Negative Negative 7744106583) PROTEIN (test code = Negative Negative 2887-8) UROBILIN (test code = Normal Normal 9517198467) BILIRUBIN (test code = Negative Negative 0525333808) NITRITE (test code = Negative Negative 8633145302) LEUK ROLAN (test code = 75/uL Negative A 7208603742) RBC/HPF (test code = See_Comment H [Autom ated message] 1828530449) The system [employer] generated this result transmitted ref erence range: 0 - 3 HP F. The reference range was not used to int erpret this result as normal/abnormal . WBC/HPF (test code = See_Comment H [Autom ated message] 5237018358) The system [employer] generated this result transmitted ref erence range: 0 - 5 HP F. The reference range was not used to int erpret this result as normal/abnormal . BACTERIA (test code = Few Negative A 6712002250) MUCOUS (test code = Slight Negative LPF A 1472462632) SQ EPITH (test code = <1 HPF 4118535393) TRANS EPI (test code = <1 See_Comment [Aut omated message] 6133275001) The system [employer] generated this result transmitted ref erence range: <=1 HPF. The reference range was not used to int erpret this result as normal/abnormal . NOE EPITH (test code = <1 See_Comment [Aut omated message] 8723953137) The system [employer] generated this result transmitted ref erence range: <=1 HPF. The reference range was not used to int erpret this result as normal/abnormal . Lab Interpretation (test Abnormal code = 79706-7) [facility] WITH [id number] 11:52:00 Test Item Value Reference Range Interpretation Comments WBC (test code = See_Comment [Automated message] 6690-2) The system [employer] generated this result transmitted ref erence range: 4.20 - 1 0.70 10*3/?L. The re ference range was not u sed to interpret this result as normal/abnor mal. RBC (test code = See_Comment [Automated message] 789-8) The system [employer] generated this result transmitted ref erence range: 4.26 - 5 .52 10*6/?L. The re ference range was not u sed to interpret this result as normal/abnor mal. HGB (test code = 15.2 g/dL 12.2-16.4 718-7) HCT (test code = 45.4 % 38.4-49.3 4544-3) MCV (test code = 92.3 fL 81.7-95.6 787-2) MCH (test code = 30.9 pg 26.1-32.7 785-6) MCHC (test code = 33.5 g/dL 31.2-35 786-4) RDW-SD (test code 41.1 fL 38.5-51.6 = 98074-2) RDW-CV (test code 12.1 % 12.1-15.4 = 788-0) PLT (test code = See_Comment [Automated message] 777-3) The system [employer] generated this result transmitted ref erence range: 150 - 32 8 10*3/?L. The re ference range was not u sed to interpret this result as normal/abnor mal. MPV (test code = 10.8 fL 9.8-13 79192-9) NRBC/100 WBC (test See_Comment [Automat ed message] code = 3988281129) The syste m which generated this result transmitted ref erence range: 0.0 - 10 .0 /100 WBCs. The refer ence range was not u sed to interpret this result as normal/abnor mal. NRBC x10^3 (test <0.01 See_Comment [Automated message] code = 7412077170) The syste m which generated this result transmitted ref erence range: 10*3/?L. The reference range was not used to interpr et this result as normal/abnormal . GRAN MAT (NEUT) % 44.8 % (test code = 770-8) IMM GRAN % (test 0.40 % code = 5589271191) LYMPH % (test code 42.0 % = 736-9) MONO % (test code 6.9 % = 5905-5) EOS % (test code = 5.0 % 713-8) BASO % (test code 0.9 % = 706-2) GRAN MAT 3.14 10*3/uL 1.99-6.95 x10^3(ANC) (test code = 7812703313) IMM GRAN x10^3 0.03 10*3/uL 0-0.06 (test code = 1320780105) LYMPH x10^3 (test 2.94 10*3/uL 1.09-3.23 code = 731-0) MONO x10^3 (test 0.48 10*3/uL 0.36-1.02 code = 742-7) EOS x10^3 (test 0.35 10*3/uL 0.06-0.53 code = 711-2) BASO x10^3 (test 0.06 10*3/uL 0.01-0.09 code = 704-7) [facility] [id number] 17:34:00 Test Item Value Reference Range Interpretation Comments POCT U SP GRAV (test code = 1.025 mg/dl 1.005-1.025 3255) POCT PH U (test code = 3254) 5.0 mg/dl 5-8 POCT U LEUK EST (test code = Negative Negative - Negative 3263) POCT U NIT (test code = 3262) Negative Negative - Negative POCT U PROT (test code = Negative Negative - Negative 3259) POCT U GLU (test code = 3256) Negative Negative - Negative POCT U KETONE (test code = Negative Negative - Negative 3258) POCT U UROBILI (test code = 0.2 mg/dl 0.2-1 0) POCT U BILI (test code = Negative Negative - Negative 3261) POCT U BLD (test code = 3257) Negative Negative - Negative POCT U COLOR (test code = yellow 3266) POCT U APPEAR (test code = clear 3267) Lab Interpretation (test code Normal = 69723-5) [facility] [id number] 17:34:00 Test Item Value Reference Range Interpretation Comments POCT U SP GRAV (test code = 1.025 mg/dl 1.005-1.025 3255) POCT PH U (test code = 3254) 5.0 mg/dl 5-8 POCT U LEUK EST (test code = Negative Negative - Negative 3263) POCT U NIT (test code = 3262) Negative Negative - Negative POCT U PROT (test code = Negative Negative - Negative 3259) POCT U GLU (test code = 3256) Negative Negative - Negative POCT U KETONE (test code = Negative Negative - Negative 3258) POCT U UROBILI (test code = 0.2 mg/dl 0.2-1 3260) POCT U BILI (test code = Negative Negative - Negative 3261) POCT U BLD (test code = 3257) Negative Negative - Negative POCT U COLOR (test code = yellow 3266) POCT U APPEAR (test code = clear 3267) Lab Interpretation (test code Normal = 65732-7) [facility] URINALYSIS, [id number] 17:09:00 Test Item Value Reference Range Interpretation Comments POCT U SP GRAV (test code = 1.025 mg/dl 1.005-1.025 3255) POCT PH U (test code = 3254) 5.5 mg/dl 5-8 POCT U LEUK EST (test code = negative Negative - Negative 3263) POCT U NIT (test code = 3262) negative Negative - Negative POCT U PROT (test code = negative Negative - Negative 325) POCT U GLU (test code = 3256) negative Negative - Negative POCT U KETONE (test code = negative Negative - Negative 3258) POCT U UROBILI (test code = 0.2 mg/dl 0.2-1 3260) POCT U BILI (test code = negative Negative - Negative 3261) POCT U BLD (test code = 3257) negative Negative - Negative POCT U COLOR (test code = yellow 3266) POCT U APPEAR (test code = clear 3267) [facility] URINALYSIS, [id number] 17:09:00 Test Item Value Reference Range Interpretation Comments POCT U SP GRAV (test code = 1.025 mg/dl 1.005-1.025 3255) POCT PH U (test code = 3254) 5.5 mg/dl 5-8 POCT U LEUK EST (test code = negative Negative - Negative 3263) POCT U NIT (test code = 3262) negative Negative - Negative POCT U PROT (test code = negative Negative - Negative 3259) POCT U GLU (test code = 3256) negative Negative - Negative POCT U KETONE (test code = negative Negative - Negative 3258) POCT U UROBILI (test code = 0.2 mg/dl 0.2-1 0) POCT U BILI (test code = negative Negative - Negative 1) POCT U BLD (test code = 3257) negative Negative - Negative POCT U COLOR (test code = yellow 3266) POCT U APPEAR (test code = clear 3267) [facility]"
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
[2021-03-07 00:30] VITALS: BP 145/68; TEMP 98.1; O2SAT 98
== END 2021-03-06 23:06 | disposition left against medical advice (07) ==
LOC: ER 13:19
DX: T83.9XXA Unspecified complication of genitourinary prosthetic device, implant and graft, initial encounter (principal); Z53.21 Procedure and treatment not carried out due to patient leaving prior to being seen by health care provider
CPT/HCPCS: 99281

== ENCOUNTER 2021-03-08 12:18 | Emergency (ER) | payer OTHER ==
[2011-09-05 09:32] VITALS: BP 116/69
--- OUTSIDE RECORDS SUMMARY | 2021-03-08 12:30 | XMS REPORT | Continuity of Care Document ---
:1935 Author Organization [facility] t Address [address] [place] [place] [address] Care Team Providers Name Role Phone Perry, E Primary Care Physician RUBEN Attending Clinician Unavailable ADRIANA MOLINA Attending Clinician Unavailable Juanita GAGE L Attending Clinician Kory MACIEL S Attending Clinician Ajibade_O_AH Attending Clinician Unavailable Doctor Unassigned, Name Attending Clinician Unavailable Joyce GAGE Attending Clinician JOYCE Attending Clinician Unavailable Nurse, Surgery Gu Attending Clinician Unavailable Singer OLVERA Attending Clinician Manny FLANGE TURNER, A Attending Clinician Rm, Surg Spec Procedure Attending Clinician Unavailable Ige-Od[place]_J_AH Attending Clinician Unavailable LITTLE Attending Clinician Unavailable RUBEN Admitting Clinician Unavailable ADRIANA MOLINA Admitting Clinician Unavailable Ajibade_O_AH Admitting Clinician Unavailable 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 arrhythmia Arrhythmia 1-04 [facility] 00:00: Practic 00 e Cerebrovas Cerebrovas Problem Active [facility] cular 1-04 Family accident Accident 00:00: Practi c 00 e Asthma Asthma Problem Active [place] 1-04 Family 00:00: Practic 00 e Chronic Chronic Problem Active [facility]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 1-04 [facility] e lung e Lung 00:00: Practic disease Disease 00 e Benign Benign Problem Active [facility] prostatic Prostatic 1-04 Fami ly hyperplasi Hyperplasi 00:00: Pr actic a a 00 e History of History of Problem Active [facility] cerebrovas Cerebrovas 1-04 [facility] robin cular 00:00: Practic accident Accident [...] different from the original. 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 Allergies, Adverse Reactions, Alerts Allergy Allergy Status Severity Reaction(s) Onset Inactive Treating Comm ents Source Name Type Date Date Clinician DIPHENHY Allergy Active 2019-03 [facility] DRAMINE 0-23 HCL 00:00: 00 ENALAPRI Allergy Active Hives 2014-03 [facility] L 03-18 00:00: 00 NO KNOWN Drug Active Univers ALLERGIE Class ity of [facility] Social History Social Habit Start Date Stop Date Quantity Comments Source Exposure to Not sure [facility] SARS-CoV-2 (event) Medica l Branch Sex Assigned At [birth year] [facility] 00:00:00 00:00:00 Medical Branch Smoking Status Start Date Stop Date Source Unknown if ever smoked [facility] Medications Ordered Filled Start Stop Current Ordering Indication Dosage Frequency Signature Comments Components Source Medication Medication Date Date Medication? Clinician (SIG) Name Name diclofenac 2020-03 Yes [id number] 75mg Take 1 [facility] 75 mg EC 03-07 9109 tablet by ity of tablet 00:00: mouth 2 (two) Medical times Branch daily with meals. diclofenac 2020-03 Yes [id number] 75mg Take 1 [facility] 75 mg EC 1-01 9109 tablet by ity of tablet 00:00: mouth (two) Medical times Branch daily with meals. diclofenac 2020-0 2021- No [id number] 75mg Take 1 [facility] 75 mg EC 8-10 09-10 9109 tablet by ity o f tablet 00:00: 04:59 mouth 2 00 :00 (two) Medical times Branch daily with meals for 30 days. diclofenac 2020-0 Yes [id number] 75mg Take 1 [facility] 75 mg EC 7-08 9109 tablet by ity of tablet 00:00: mouth (two) Medical times Branch daily with meals. diclofenac 2020-0 Yes [id number] 75mg Take 1 [facility] 75 mg EC 7-08 9109 tablet by ity of tablet 00:00: mouth (two) Medical times Branch daily with meals. diclofenac 2020-0 Yes [id number] 75mg Take 1 [facility] 75 mg EC 7-08 9109 tablet by ity of tablet 00:00: mouth (two) Medical times Branch daily with meals. diclofenac 2020-0 2021- No [id number] 75mg Take 1 [facility] 75 mg EC 7-08 11-01 9109 tablet by ity o f tablet 00:00: 00:00 mouth 00 :00 (two) Medical times Branch daily with meals. diclofenac 2020-0 Yes [id number] 75mg Take 1 [facility] 75 mg EC 6-10 9109 tablet by ity of tablet 00:00: mouth (two) Medical times Branch daily with meals. diclofenac 2020-0 Yes [id number] 75mg Take 1 [facility] 75 mg EC 6-10 9109 tablet by ity of tablet 00:00: mouth (two) Medical times Branch daily with meals. diclofenac 2020-0 Yes [id number] 75mg Take 1 [facility] 75 mg EC 6-10 9109 tablet by ity of tablet 00:00: mouth (two) Medical times Branch daily with meals. diclofenac 2020-0 Yes [id number] 75mg Take 1 [facility] 75 mg EC 6-10 9109 tablet by ity of tablet 00:00: mouth (two) Medical times Branch daily with meals. diclofenac 2020-0 Yes [id number] 75mg Take 1 [facility] 75 mg EC 6-10 9109 tablet by ity of tablet 00:00: mouth (two) Medical times Branch daily with meals. diclofenac 2021-0 Yes [id number] 75mg Take 1 [facility] 75 mg EC [...] daily with meals. diclofenac 2021-0 2021- No [id number] 75mg Take 1 [facility] 75 mg EC [...] times Branch daily with meals. diclofenac 2019- 2020- No [id number] 75mg Take 1 [facility] 75 mg EC 1-23 12-24 9109 tablet by ity o f tablet 00:00: 05:59 mouth 2 [place] 00 :00 (two) Medical times Branch daily with meals for 30 days. diclofenac 2020-0 Yes [id number] 75mg Take 1 [facility] 75 mg EC 7-14 9109 tablet by ity of tablet 00:00: mouth 2 (two) Medical times Branch daily with meals. diclofenac 2020-0 Yes [id number] 75mg Take 1 [facility] 75 mg EC 7-14 9109 tablet by ity of tablet 00:00: mouth 2 (two) Medical times Branch daily with meals. diclofenac 2020-0 Yes [id number] 75mg Take 1 [facility] 75 mg EC 7-14 9109 tablet by ity of tablet 00:00: mouth (two) Medical times Branch daily with meals. diclofenac 2020-0 Yes [id number] 75mg Take 1 [facility] 75 mg EC 7-14 9109 tablet by ity of tablet 00:00: mouth (two) Medical times Branch daily with meals. diclofenac 2020-0 Yes [id number] 75mg Take 1 [facility] 75 mg EC 7-14 9109 tablet by ity of tablet 00:00: mouth (two) Medical times Branch daily with meals. diclofenac 2020-0 Yes [id number] 75mg Take 1 [facility] 75 mg EC 7-14 9109 tablet by ity of tablet 00:00: mouth (two) Medical times Branch daily with meals. diclofenac 2020-0 Yes [id number] 75mg Take 1 [facility] 75 mg EC 7-14 9109 tablet by ity of tablet 00:00: mouth (two) Medical times Branch daily with meals. diclofenac 2020-0 Yes [id number] 75mg Take 1 [facility] 75 mg EC 7-14 9109 tablet by ity of tablet 00:00: mouth (two) Medical times Branch daily with meals. diclofenac 2020-0 Yes [id number] 75mg Take 1 [facility] 75 mg EC 7-14 9109 tablet by ity of tablet 00:00: mouth [place] (two) Medical times Branch daily with meals. diclofenac 2020-0 Yes [id number] 75mg Take 1 [facility] 75 mg EC 7-14 9109 tablet by ity of tablet 00:00: mouth [place] (two) Medical times Branch daily with meals. diclofenac 2020-0 Yes [id number] 75mg Take 1 [facility] 75 mg EC 7-14 9109 tablet by ity of tablet 00:00: mouth (two) Medical times Branch daily with meals. diclofenac 2020-0 Yes [id number] 75mg Take 1 [facility] 75 mg EC 7-14 9109 tablet by ity of tablet 00:00: mouth [place] (two) Medical times Branch daily with meals. diclofenac 2020-0 Yes [id number] 75mg Take 1 [facility] 75 mg EC 7-14 9109 tablet by ity of tablet 00:00: mouth [place] (two) Medical times Branch daily with meals. diclofenac 2020-0 Yes [id number] 75mg Take 1 [facility] 75 mg EC 7-14 9109 tablet by ity of tablet 00:00: mouth 2 (two) Medical times Branch daily with meals. diclofenac 2020-0 Yes [id number] 75mg Take 1 [facility] 75 mg EC 7-14 9109 tablet by ity of tablet 00:00: mouth 2 (two) Medical times Branch daily with meals. diclofenac 2020-0 Yes [id number] 75mg Take 1 [facility] 75 mg EC 7-14 9109 tablet by ity of tablet 00:00: mouth 2 (two) Medical times Branch daily with meals. diclofenac 2020-0 Yes [id number] 75mg Take 1 [facility] 75 mg EC 7-14 9109 tablet by ity of tablet 00:00: mouth 2 (two) Medical times Branch daily with meals. diclofenac 2020-0 Yes [id number] 75mg Take 1 [facility] 75 mg EC 7-14 9109 tablet by ity of tablet 00:00: mouth 2 (two) Medical times Branch daily with meals. diclofenac 2020-0 Yes [id number] 75mg Take 1 [facility] 75 mg EC 7-14 9109 tablet by ity of tablet 00:00: mouth (two) Medical times Branch daily with meals. diclofenac 2020-0 Yes [id number] 75mg Take 1 [facility] 75 mg EC 7-14 9109 tablet by ity of tablet 00:00: mouth (two) Medical times Branch daily with meals. diclofenac 2020-0 Yes [id number] 75mg Take 1 [facility] 75 mg EC 7-14 9109 tablet by ity of tablet 00:00: mouth (two) Medical times Branch daily with meals. amoxicillin 2020-0 Yes [id number] 500mg Take 1 [facility] 500 mg 6-28 capsule by ity of capsule 00:00: mouth (three) Medical times Branch daily. amoxicillin 2020-0 Yes [id number] 500mg Take 1 [facility] 500 mg 6-28 capsule by ity of capsule 00:00: mouth 3 (three) Medical times Branch daily. amoxicillin 2020-0 Yes [id number] 500mg Take 1 [facility] 500 mg 6-28 capsule by ity of capsule 00:00: mouth 3 (three) Medical times Branch daily. amoxicillin 2020-0 Yes [id number] 500mg Take 1 [facility] 500 mg 6-28 capsule by ity of capsule 00:00: mouth (three) Medical times Branch daily. amoxicillin 2020-0 Yes [id number] 500mg Take 1 [facility] 500 mg 6-28 capsule by ity of capsule 00:00: mouth (three) Medical times Branch daily. amoxicillin 2020-0 Yes [id number] 500mg Take 1 [facility] 500 mg 6-28 capsule by ity of capsule 00:00: mouth (three) Medical times Branch daily. amoxicillin 2020-0 Yes [id number] 500mg Take 1 [facility] 500 mg 6-28 capsule by ity of capsule 00:00: mouth (three) Medical times Branch daily. amoxicillin 2020-0 Yes [id number] 500mg Take 1 [facility] 500 mg 6-28 capsule by ity of capsule 00:00: mouth (three) Medical times Branch daily. amoxicillin 2020-0 Yes [id number] 500mg Take 1 [facility] 500 mg 6-28 capsule by ity of capsule 00:00: mouth (three) Medical times Branch daily. amoxicillin 2020-0 Yes [id number] 500mg Take 1 [facility] 500 mg 6-28 capsule by ity of capsule 00:00: mouth () Medical times Branch daily. amoxicillin 2020-0 Yes [id number] 500mg Take 1 [facility] 500 mg 6-28 capsule by ity of capsule 00:00: mouth (three) Medical times Branch daily. amoxicillin 2020-0 Yes [id number] 500mg Take 1 [facility] 500 mg 6-28 capsule by ity of capsule 00:00: mouth (three) Medical times Branch daily. amoxicillin 2020-0 Yes [id number] 500mg Take 1 [facility] 500 mg 6-28 capsule by ity of capsule 00:00: mouth (three) Medical times Branch daily. amoxicillin 2020-0 Yes [id number] 500mg Take 1 [facility] 500 mg 6-28 capsule by ity of capsule 00:00: mouth (three) Medical times Branch daily. amoxicillin 2020-0 Yes [id number] 500mg Take 1 [facility] 500 mg 6-28 capsule by ity of capsule 00:00: mouth 3 (three) Medical times Branch daily. amoxicillin 2020-0 Yes [id number] 500mg Take 1 [facility] 500 mg 6-28 capsule by ity of capsule 00:00: mouth 3 (three) Medical times Branch daily. amoxicillin 2020-0 Yes [id number] 500mg Take 1 [facility] 500 mg 6-28 capsule by ity of capsule 00:00: mouth (three) Medical times Branch daily. amoxicillin 2020-0 Yes [id number] 500mg Take 1 [facility] 500 mg 6-28 capsule by ity of capsule 00:00: mouth (three) Medical times Branch daily. amoxicillin 2020-0 Yes [id number] 500mg Take 1 [facility] 500 mg 6-28 capsule by ity of capsule 00:00: mouth (three) Medical times Branch daily. amoxicillin 2020-0 Yes [id number] 500mg Take 1 [facility] 500 mg 6-28 capsule by ity of capsule 00:00: mouth (three) Medical times Branch daily. amoxicillin 2020-0 Yes [id number] 500mg Take 1 [facility] 500 mg 6-28 capsule by ity of capsule 00:00: mouth (three) Medical times Branch daily. amoxicillin 2020-0 Yes [id number] 500mg Take 1 [facility] 500 mg 6-28 [...] daily with meals. mirabegron 2020-0 2020- No [id number] 25mg Take 1 Univers 25 mg 6-05 07-06 tablet by ity of tablet 00:00: 04:59 mouth [place] 00 :00 daily for Medical 30 days. Branch mirabegron 2020-0 2020- No [id number] 25mg Take 1 Univers 25 mg 6-05 07-06 tablet by ity of tablet 00:00: 04:59 mouth [place] 00 :00 daily for Medical 30 days. Branch mirabegron 2020-0 2020- No [id number] 25mg Take 1 Univers 25 mg 6-05 07-06 tablet by ity of tablet 00:00: 04:59 mouth [place] 00 :00 daily for Medical 30 days. Branch mirabegron 2020-0 2020- No [id number] 25mg Take 1 Univers 25 mg 6-05 07-06 tablet by ity of tablet 00:00: 04:59 mouth [place] 00 :00 daily for Medical 30 days. Branch mirabegron 2020-0 2020- No [id number] 25mg Take 1 Univers 25 mg 6-05 07-06 tablet by ity of tablet 00:00: 04:59 mouth [place] 00 :00 daily for Medical 30 days. Branch mirabegron 2020-0 2020- No [id number] 25mg Take 1 Univers 25 mg 6-05 07-06 tablet by ity of tablet 00:00: 04:59 mouth [place] 00 :00 daily for Medical 30 days. Branch diclofenac 2020-0 Yes 75mg Take 1 Unive rs 75 mg EC 4-13 tablet by ity of tablet 00:00: mouth [place] (two) Medical times Branch daily with meals. [...] 1 Univ ers 75 mg EC 4-13 07-08 tablet by ity o f tablet 00:00: [...] 1 Univ ers 75 mg EC 3-17 -14 tablet by ity o f tablet 00:00: 00:00 mouth 00 :00 (two) Medical times Branch daily with meals. gentamicin 2020-0 2020- No 80mg Univer s injection 05-04 ity of 80 mg 19:00: 17:48 [place] 00 :00 Medical Branch gentamicin 2019-0 2020- No 80mg 80 mg, IV U nivers injection 05-04 Piggyback, ity of 80 mg 19:00: 17:48 ONCE, 1 [place] 00 :00 dose, Fri Medical 05/04/19 at Branch 1300, WINDY
Re ason for Anti-Infec tive: Surgical Prophylaxi s
Surgi ezekiel Prophylaxi s: Genitourin michelle
Dur ation of therapy: within 24 hours of surgery gentamicin 2019-0 2020- No 80mg Univer s injection 05-04 ity of 80 mg 19:00: 17:48 [place] 00 :00 [facility] Branch gentamicin 2019-0 2020- No 80mg 80 mg, IV U nivers injection 05-04 Piggyback, ity of 80 mg 19:00: 17:48 ONCE, 1 [place] 00 :00 dose, Fri [facility] 05/04/19 at [place] 1300, WINDY
Re ason for Anti-Infec tive: Surgical Prophylaxi s
Surgi ezekiel Prophylaxi s: Genitourin michelle
Dur ation of therapy: within 24 hours of surgery cephALEXin 2020-0 2020- No [id number] 500mg Take 2 Univers 250 mg 05-04- capsules ity of capsule 00:00: 05:59 by mouth [place] 00 :00 every 12 Medical (twelve) Branch hours for 3 days. cephALEXin 2020-0 2020- No [id number] 500mg Take 2 Univers 250 mg 05-04-03 capsules ity of capsule 00:00: 05:59 by mouth [place] 00 :00 every 12 Medical (twelve) Branch hours for 3 days. atorvastati 2020-0 Yes 20mg Take 20 mg Univers n 20 mg 2-20 by mouth ity of tablet 00:00: daily. [address] metoprolol 2020-0 Yes 25mg Take 25 [...] it y of mg tablet 00:00: (two) [place] 00 times Medical daily. Branch atorvastati 2020-0 Yes 20mg Take 20 mg Univers n 20 mg 2-20 by mouth ity of tablet 00:00: daily. Medical Branch metoprolol 2020-0 Yes 25mg Take 25 mg U nivers tartrate 25 2-20 by mouth 2 it y of mg tablet 00:00: (two) [place] 00 times Medical daily. Branch atorvastati 2020-0 Yes 20mg Take 20 mg Univers n 20 mg 2-20 by mouth ity of tablet 00:00: daily. Medical Branch metoprolol 2020-0 Yes 25mg Take 25 mg U nivers tartrate 25 2-20 by mouth 2 it y of mg tablet 00:00: (two) [place] 00 times Medical daily. Branch atorvastati 2020-0 Yes 20mg Take 20 mg Univers n 20 mg 2-20 by mouth ity of tablet 00:00: daily. [place] Medical Branch metoprolol 2020-0 Yes 25mg Take 25 mg U nivers tartrate 25 2-20 by mouth 2 it y of mg tablet 00:00: (two) [place] 00 times Medical daily. Branch atorvastati 2020-0 Yes 20mg Take 20 mg Univers n 20 mg 2-20 by mouth ity of tablet 00:00: daily. Medical Branch metoprolol 2020-0 Yes 25mg Take 25 mg U nivers tartrate 25 2-20 by mouth 2 it y of mg tablet 00:00: (two) [place] times Medical daily. Branch atorvastati 2020-0 Yes 20mg Take 20 mg Univers n 20 mg 2-20 by mouth ity of tablet 00:00: daily. Medical Branch metoprolol 2020-0 Yes 25mg Take 25 mg U nivers tartrate 25 2-20 by mouth 2 it y of mg tablet 00:00: (two) [place] 00 times Medical daily. Branch atorvastati 2020-0 Yes 20mg Take 20 mg Univers n 20 mg 2-20 by mouth ity of tablet 00:00: daily. [place] Medical Branch metoprolol 2020-0 Yes 25mg Take 25 mg U nivers tartrate 25 2-20 by mouth 2 it y of mg tablet 00:00: (two) [place] 00 times Medical daily. Branch atorvastati 2020-0 Yes 20mg Take 20 mg Univers n 20 mg 2-20 by mouth ity of tablet 00:00: daily. Medical Branch metoprolol 2020-0 Yes 25mg Take 25 mg U nivers tartrate 25 2-20 by mouth 2 it y of mg tablet 00:00: (two) [place] 00 times Medical daily. Branch atorvastati 2020-0 Yes 20mg Take 20 mg Univers n 20 mg 2-20 by mouth ity of tablet 00:00: daily. Medical Branch metoprolol 2020-0 Yes 25mg Take 25 mg U nivers tartrate 25 2-20 by mouth 2 it y of mg tablet 00:00: (two) [place] times Medical daily. Branch atorvastati 2020-0 Yes 20mg Take 20 mg Univers n 20 mg 2-20 by mouth ity of tablet 00:00: daily. Medical Branch metoprolol 2020-0 Yes 25mg Take 25 mg U nivers tartrate 25 2-20 by mouth 2 it y of mg tablet 00:00: (two) [place] times Medical daily. Branch atorvastati 2020-0 Yes 20mg Take 20 mg Univers n 20 mg 2-20 by mouth ity of tablet 00:00: daily. Medical Branch metoprolol 2020-0 Yes 25mg Take 25 mg U nivers tartrate 25 2-20 by mouth 2 it y of mg tablet 00:00: (two) [place] 00 times Medical daily. Branch atorvastati 2020-0 Yes 20mg Take 20 mg Univers n 20 mg 2-20 by mouth ity of tablet 00:00: daily. Medical Branch metoprolol 2020-0 Yes 25mg Take 25 mg U nivers tartrate 25 2-20 by mouth 2 it y of mg tablet 00:00: (two) [place] 00 times Medical daily. Branch atorvastati 2020-0 Yes 20mg Take 20 mg Univers n 20 mg 2-20 by mouth ity of tablet 00:00: daily. Medical Branch metoprolol 2020-0 Yes 25mg Take 25 mg U nivers tartrate 25 2-20 by mouth 2 it y of mg tablet 00:00: (two) [place] times Medical daily. Branch atorvastati 2020-0 Yes 20mg Take 20 mg Univers n 20 mg 2-20 by mouth ity of tablet 00:00: daily. Medical Branch metoprolol 2020-0 Yes 25mg Take 25 mg U nivers tartrate 25 2-20 by mouth 2 it y of mg tablet 00:00: (two) [place] 00 times Medical daily. Branch atorvastati 2020-0 Yes 20mg Take 20 mg Univers n 20 mg 2-20 by mouth ity of tablet 00:00: daily. Medical Branch metoprolol 2020-0 Yes 25mg Take 25 mg U nivers tartrate 25 2-20 by mouth 2 it y of mg tablet 00:00: (two) [place] 00 times Medical daily. Branch atorvastati 2020-0 Yes 20mg Take 20 mg Univers n 20 mg 2-20 by mouth ity of tablet 00:00: daily. Medical Branch metoprolol 2020-0 Yes 25mg Take 25 mg U nivers tartrate 25 2-20 by mouth 2 it y of mg tablet 00:00: (two) [place] times Medical daily. Branch atorvastati 2020-0 Yes 20mg Take 20 mg Univers n 20 mg 2-20 by mouth ity of tablet 00:00: daily. Medical Branch metoprolol 2020-0 Yes 25mg Take 25 mg U nivers tartrate 25 2-20 by mouth 2 it y of mg tablet 00:00: (two) [place] 00 times Medical daily. Branch atorvastati 2020-0 Yes 20mg Take 20 mg Univers n 20 mg 2-20 by mouth ity of tablet 00:00: daily. [place] Medical Branch metoprolol 2020-0 Yes 25mg Take 25 mg U nivers tartrate 25 2-20 by mouth 2 it y of mg tablet 00:00: (two) [place] 00 times Medical daily. Branch atorvastati 2020-0 Yes 20mg Take 20 mg Univers n 20 mg 2-20 by mouth ity of tablet 00:00: daily. Medical Branch metoprolol 2020-0 Yes 25mg Take 25 mg U nivers tartrate 25 2-20 by mouth 2 it y of mg tablet 00:00: (two) [place] 00 times Medical daily. Branch atorvastati 2020-0 Yes 20mg Take 20 mg Univers n 20 mg 2-20 by mouth ity of tablet 00:00: daily. Medical Branch metoprolol 2020-0 Yes 25mg Take 25 mg U nivers tartrate 25 2-20 by mouth 2 it y of mg tablet 00:00: (two) [place] 00 times Medical daily. Branch atorvastati 2020-0 Yes 20mg Take 20 mg Univers n 20 mg 2-20 by mouth ity of tablet 00:00: daily. Medical Branch metoprolol 2020-0 Yes 25mg Take 25 mg U nivers tartrate 25 2-20 by mouth 2 it y of mg tablet 00:00: (two) [place] 00 times Medical daily. Branch atorvastati 2020-0 Yes 20mg Take 20 mg Univers n 20 mg 2-20 by mouth ity of tablet 00:00: daily. Medical Branch metoprolol 2020-0 Yes 25mg Take 25 mg U nivers tartrate 25 2-20 by mouth 2 it y of mg tablet 00:00: (two) [place] 00 times Medical daily. Branch atorvastati 2020-0 Yes 20mg Take 20 mg Univers n 20 mg 2-20 by mouth ity of tablet 00:00: daily. [place] Medical Branch metoprolol 2020-0 Yes 25mg Take 25 mg U nivers tartrate 25 2-20 by mouth 2 it y of mg tablet 00:00: (two) [place] 00 times Medical daily. Branch atorvastati 2020-0 Yes 20mg Take 20 mg Univers n 20 mg 2-20 by mouth ity of tablet 00:00: daily. [place] Medical Branch metoprolol 2020-0 Yes 25mg Take 25 mg U nivers tartrate 25 2-20 by mouth 2 it y of mg tablet 00:00: (two) [place] times Medical daily. Branch atorvastati 2020-0 Yes 20mg Take 20 mg Univers n 20 mg 2-20 by mouth ity of tablet 00:00: daily. Medical Branch metoprolol 2020-0 Yes 25mg Take 25 mg U nivers tartrate 25 2-20 by mouth 2 it y of mg tablet 00:00: (two) [place] 00 times Medical daily. Branch atorvastati 2020-0 Yes 20mg Take 20 mg Univers n 20 mg 2-20 by mouth ity of tablet 00:00: daily. [place] Medical Branch metoprolol 2020-0 Yes 25mg Take 25 mg U nivers tartrate 25 2-20 by mouth 2 it y of mg tablet 00:00: (two) [place] 00 times Medical daily. Branch atorvastati 2020-0 Yes 20mg Take 20 mg Univers n 20 mg 2-20 by mouth ity of tablet 00:00: daily. Medical Branch metoprolol 2020-0 Yes 25mg Take 25 mg U nivers tartrate 25 2-20 by mouth 2 it y of mg tablet 00:00: (two) [place] 00 times Medical daily. Branch atorvastati 2020-0 Yes 20mg Take 20 mg Univers n 20 mg 2-20 by mouth ity of tablet 00:00: daily. Medical Branch metoprolol 2020-0 Yes 25mg Take 25 mg U nivers tartrate 25 2-20 by mouth 2 it y of mg tablet 00:00: (two) [place] 00 times Medical daily. Branch atorvastati 2020-0 Yes 20mg Take 20 mg Univers n 20 mg 2-20 by mouth ity of tablet 00:00: daily. Medical Branch metoprolol 2020-0 Yes 25mg Take 25 mg U nivers tartrate 25 2-20 by mouth 2 it y of mg tablet 00:00: (two) [place] times Medical daily. Branch atorvastati 2020-0 Yes 20mg Take 20 mg Univers n 20 mg 2-20 by mouth ity of tablet 00:00: daily. Medical Branch metoprolol 2020-0 Yes 25mg Take 25 mg U nivers tartrate 25 2-20 by mouth 2 it y of mg tablet 00:00: (two) [place] 00 times Medical daily. Branch atorvastati 2020-0 Yes 20mg Take 20 mg Univers n 20 mg 2-20 by mouth ity of tablet 00:00: daily. Medical Branch metoprolol 2020-0 Yes 25mg Take 25 mg U nivers tartrate 25 2-20 by mouth 2 it y of mg tablet 00:00: (two) [place] 00 times Medical daily. Branch atorvastati 2020-0 Yes 20mg Take 20 mg Univers n 20 mg 2-20 by mouth ity of tablet 00:00: daily. Medical Branch metoprolol 2020-0 Yes 25mg Take 25 mg U nivers tartrate 25 2-20 by mouth 2 it y of mg tablet 00:00: (two) [place] 00 times Medical daily. Branch atorvastati 2020-0 Yes 20mg Take 20 mg Univers n 20 mg 2-20 by mouth ity of tablet 00:00: daily. Medical Branch metoprolol 2020-0 Yes 25mg Take 25 mg U nivers tartrate 25 2-20 by mouth 2 it y of mg tablet 00:00: (two) [place] 00 times Medical daily. Branch atorvastati 2020-0 Yes 20mg Take 20 mg Univers n 20 mg 2-20 by mouth ity of tablet 00:00: daily. Medical Branch metoprolol 2020-0 Yes 25mg Take 25 mg U nivers tartrate 25 2-20 by mouth 2 it y of mg tablet 00:00: (two) [place] 00 times Medical daily. Branch atorvastati 2020-0 Yes 20mg Take 20 mg Univers n 20 mg 2-20 by mouth ity of tablet 00:00: daily. Medical Branch metoprolol 2020-0 Yes 25mg Take 25 mg U nivers tartrate 25 2-20 by mouth 2 it y of mg tablet 00:00: (two) [place] times Medical daily. Branch atorvastati 2020-0 Yes 20mg Take 20 mg Univers n 20 mg 2-20 by mouth ity of tablet 00:00: daily. Medical Branch metoprolol 2020-0 Yes 25mg Take 25 mg U nivers tartrate 25 2-20 by mouth 2 it y of mg tablet 00:00: (two) [place] 00 times Medical daily. Branch atorvastati 2020-0 Yes 20mg Take 20 mg Univers n 20 mg 2-20 by mouth ity of tablet 00:00: daily. Medical Branch metoprolol 2020-0 Yes 25mg Take 25 mg U nivers tartrate 25 2-20 by mouth 2 it y of mg tablet 00:00: (two) [place] 00 times Medical daily. Branch atorvastati 2020-0 Yes 20mg Take 20 mg Univers n 20 mg 2-20 by mouth ity of tablet 00:00: daily. Medical Branch metoprolol 2020-0 Yes 25mg Take 25 mg U nivers tartrate 25 2-20 by mouth 2 it y of mg tablet 00:00: (two) [place] 00 times Medical daily. Branch atorvastati 2020-0 Yes 20mg Take 20 mg Univers n 20 mg 2-20 by mouth ity of tablet 00:00: daily. Medical Branch metoprolol 2020-0 Yes 25mg Take 25 mg U nivers tartrate 25 2-20 by mouth 2 it y of mg tablet 00:00: (two) [place] times Medical daily. Branch atorvastati 2020-0 Yes 20mg Take 20 mg Univers n 20 mg 2-20 by mouth ity of tablet 00:00: daily. [place] [facility] metoprolol 2020-0 Yes 25mg Take 25 mg U nivers tartrate 25 2-20 by mouth 2 it y of mg tablet 00:00: (two) [place] times Medical daily. Branch tamsulosin 2020-0 Yes Take by Uni vers 0.4 mg 24 2-14 mouth ity of hr capsule 17:20: daily. [place] [address] Medical Branch om 2020-0 Yes Take by Univers 3/E/linol/a 2-14 mouth. ity of la/oleic/gl 17:20: [place] a/lip 21 Medical (OMEGA Branch 3-6-9 ORAL) tamsulosin 2020-0 Yes Take by Uni vers 0.4 mg 24 2-14 mouth ity of hr capsule 17:20: daily. [place] [address] Medical Branch om 2020-0 Yes Take by Univers 3/E/linol/a 2-14 mouth. ity of la/oleic/gl 17:20: [place] a/lip 21 Medical (OMEGA Branch 3-6-9 ORAL) tamsulosin 2020-0 Yes Take by Uni vers 0.4 mg 24 2-14 mouth ity of hr capsule 17:20: daily. [place] [address] Medical Branch om 2020-0 Yes Take by Univers 3/E/linol/a 2-14 mouth. ity of la/oleic/gl 17:20: [place] a/lip 21 Medical (OMEGA Branch 3-6-9 ORAL) tamsulosin 2020-0 Yes Take by Uni vers 0.4 mg 24 2-14 mouth ity of hr capsule 17:20: daily. [place] [address] Medical Branch om 2020-0 Yes Take by Univers 3/E/linol/a 2-14 mouth. ity of la/oleic/gl 17:20: [place] a/lip 21 Medical (OMEGA Branch 3-6-9 ORAL) tamsulosin 2020-0 Yes Take by Uni vers 0.4 mg 24 2-14 mouth ity of hr capsule 17:20: daily. [place] [address] Medical Branch om 2020-0 Yes Take by Univers 3/E/linol/a 2-14 mouth. ity of la/oleic/gl 17:20: [place] a/lip 21 Medical (OMEGA Branch 3-6-9 ORAL) tamsulosin 2020-0 Yes Take by Uni vers 0.4 mg 24 2-14 mouth ity of hr capsule 17:20: daily. [place] [address] Medical Branch om 2020-0 Yes Take by Univers 3/E/linol/a 2-14 mouth. ity of la/oleic/gl 17:20: [place] a/lip 21 Medical (OMEGA Branch 3-6-9 ORAL) tamsulosin 2020-0 Yes Take by Uni vers 0.4 mg 24 2-14 mouth ity of hr capsule 17:20: daily. [place] [address] Medical Branch om 2020-0 Yes Take by Univers 3/E/linol/a 2-14 mouth. ity of la/oleic/gl 17:20: [place] a/lip 21 Medical (OMEGA Branch 3-6-9 ORAL) tamsulosin 2020-0 Yes Take by Uni vers 0.4 mg 24 2-14 mouth ity of hr capsule 17:20: daily. [place] [address] Medical Branch om 2020-0 Yes Take by Univers 3/E/linol/a 2-14 mouth. ity of la/oleic/gl 17:20: [place] a/lip 21 Medical (OMEGA Branch 3-6-9 ORAL) tamsulosin 2020-0 Yes Take by Uni vers 0.4 mg 24 2-14 mouth ity of hr capsule 17:20: daily. [place] [address] Medical Branch om 2020-0 Yes Take by Univers 3/E/linol/a 2-14 mouth. ity of la/oleic/gl 17:20: [place] a/lip 21 Medical (OMEGA Branch 3-6-9 ORAL) tamsulosin 2020-0 Yes Take by Uni vers 0.4 mg 24 2-14 mouth ity of hr capsule 17:20: daily. [place] [address] Medical Branch om 2020-0 Yes Take by Univers 3/E/linol/a 2-14 mouth. ity of la/oleic/gl 17:20: [place] a/lip 21 Medical (OMEGA Branch 3-6-9 ORAL) tamsulosin 2020-0 Yes Take by Uni vers 0.4 mg 24 2-14 mouth ity of hr capsule 17:20: daily. [place] [address] Medical Branch om 2020-0 Yes Take by Univers 3/E/linol/a 2-14 mouth. ity of la/oleic/gl 17:20: [place] a/lip 21 Medical (OMEGA Branch 3-6-9 ORAL) tamsulosin 2020-0 Yes Take by Uni vers 0.4 mg 24 2-14 mouth ity of hr capsule 17:20: daily. [address] om 2020-0 Yes Take by Univers 3/E/linol/a 2-14 mouth. ity of la/oleic/gl 17:20: [place] a/lip 21 Medical (OMEGA Branch 3-6-9 ORAL) tamsulosin 2020-0 Yes Take by Uni vers 0.4 mg 24 2-14 mouth ity of hr capsule 17:20: daily. [address] om 2020-0 Yes Take by Univers 3/E/linol/a 2-14 mouth. ity of la/oleic/gl 17:20: [place] a/lip 21 Medical (OMEGA Branch 3-6-9 ORAL) tamsulosin 2020-0 Yes Take by Uni vers 0.4 mg 24 2-14 mouth ity of hr capsule 17:20: daily. [address] om 2020-0 Yes Take by Univers 3/E/linol/a 2-14 mouth. ity of la/oleic/gl 17:20: [place] a/lip 21 Medical (OMEGA Branch 3-6-9 ORAL) tamsulosin 2020-0 Yes Take by Uni vers 0.4 mg 24 2-14 mouth ity of hr capsule 17:20: daily. [address] om 2020-0 Yes Take by Univers 3/E/linol/a 2-14 mouth. ity of la/oleic/gl 17:20: [place] a/lip 21 Medical (OMEGA Branch 3-6-9 ORAL) tamsulosin 2020-0 Yes Take by Uni vers 0.4 mg 24 2-14 mouth ity of hr capsule 17:20: daily. [address] om 2020-0 Yes Take by Univers 3/E/linol/a 2-14 mouth. ity of la/oleic/gl 17:20: [place] a/lip 21 Medical (OMEGA Branch 3-6-9 ORAL) [...] mouth ity of hr capsule 17:20: daily. [place] [address] Medical Branch om 2020-0 Yes Take by Univers 3/E/linol/a 2-14 mouth. ity of la/oleic/gl 17:20: [place] a/lip 21 Medical (OMEGA Branch 3-6-9 ORAL) tamsulosin 2020-0 Yes Take by Uni vers 0.4 mg 24 2-14 mouth ity of hr capsule 17:20: daily. [place] [address] Medical Branch om 2020-0 Yes Take by Univers 3/E/linol/a 2-14 mouth. ity of la/oleic/gl 17:20: [place] a/lip 21 Medical (OMEGA Branch 3-6-9 ORAL) tamsulosin 2020-0 Yes Take by Uni vers 0.4 mg 24 2-14 mouth ity of hr capsule 17:20: daily. [place] [address] Medical Branch om 2020-0 Yes Take by Univers 3/E/linol/a 2-14 mouth. ity of la/oleic/gl 17:20: [place] a/lip 21 Medical (OMEGA Branch 3-6-9 ORAL) tamsulosin 2020-0 Yes Take by Uni vers 0.4 mg 24 2-14 mouth ity of hr capsule 17:20: daily. [place] [address] Medical Branch om 2020-0 Yes Take by Univers 3/E/linol/a 2-14 mouth. ity of la/oleic/gl 17:20: [place] a/lip 21 Medical (OMEGA Branch 3-6-9 ORAL) tamsulosin 2020-0 Yes Take by Uni vers 0.4 mg 24 2-14 mouth ity of hr capsule 17:20: daily. [place] [address] Medical Branch om 2020-0 Yes Take by Univers 3/E/linol/a 2-14 mouth. ity of la/oleic/gl 17:20: [place] a/lip 21 Medical (OMEGA Branch 3-6-9 ORAL) tamsulosin 2020-0 Yes Take by Uni vers 0.4 mg 24 2-14 mouth ity of hr capsule 17:20: daily. [place] [address] Medical Branch om 2020-0 Yes Take by Univers 3/E/linol/a 2-14 mouth. ity of la/oleic/gl 17:20: [place] a/lip 21 Medical (OMEGA Branch 3-6-9 ORAL) tamsulosin 2020-0 Yes Take by Uni vers 0.4 mg 24 2-14 mouth ity of hr capsule 17:20: daily. [place] [address] Medical Branch om 2020-0 Yes Take by Univers 3/E/linol/a 2-14 mouth. ity of la/oleic/gl 17:20: [place] a/lip 21 Medical (OMEGA Branch 3-6-9 ORAL) tamsulosin 2020-0 Yes Take by Uni vers 0.4 mg 24 2-14 mouth ity of hr capsule 17:20: daily. [place] [address] Medical Branch om 2020-0 Yes Take by Univers 3/E/linol/a 2-14 mouth. ity of la/oleic/gl 17:20: [place] a/lip 21 Medical (OMEGA Branch 3-6-9 ORAL) tamsulosin 2020-0 Yes Take by Uni vers 0.4 mg 24 2-14 mouth ity of hr capsule 17:20: daily. [place] [address] Medical Branch om 2020-0 Yes Take by Univers 3/E/linol/a 2-14 mouth. ity of la/oleic/gl 17:20: [place] a/lip 21 Medical (OMEGA Branch 3-6-9 ORAL) tamsulosin 2020-0 Yes Take by Uni vers 0.4 mg 24 2-14 mouth ity of hr capsule 17:20: daily. [place] [address] Medical Branch om 2020-0 Yes Take by Univers 3/E/linol/a 2-14 mouth. ity of la/oleic/gl 17:20: [place] a/lip 21 Medical (OMEGA Branch 3-6-9 ORAL) tamsulosin 2020-0 Yes Take by Uni vers 0.4 mg 24 2-14 mouth ity of hr capsule 17:20: daily. [place] [address] Medical Branch om 2020-0 Yes Take by Univers 3/E/linol/a 2-14 mouth. ity of la/oleic/gl 17:20: [place] a/lip 21 Medical (OMEGA Branch 3-6-9 ORAL) tamsulosin 2020-0 Yes Take by Uni vers 0.4 mg 24 2-14 mouth ity of hr capsule 17:20: daily. [place] [address] Medical Branch om 2020-0 Yes Take by Univers 3/E/linol/a 2-14 mouth. ity of la/oleic/gl 17:20: [place] a/lip 21 Medical (OMEGA Branch 3-6-9 ORAL) tamsulosin 2020-0 Yes Take by Uni vers 0.4 mg 24 2-14 mouth ity of hr capsule 17:20: daily. [place] [address] Medical Branch tamsulosin 2020-0 Yes Take by Uni vers 0.4 mg 24 2-14 mouth ity of hr capsule 17:20: daily. [place] [address] Medical Branch om 2020-0 Yes Take by Univers 3/E/linol/a 2-14 mouth. ity of la/oleic/gl 17:20: [place] a/lip 21 Medical (OMEGA Branch 3-6-9 ORAL) om 2020-0 Yes Take by Univers 3/E/linol/a 2-14 mouth. ity of la/oleic/gl 17:20: [place] a/lip 21 Medical (OMEGA Branch 3-6-9 ORAL) tamsulosin 2020-0 Yes Take by Uni vers 0.4 mg 24 2-14 mouth ity of hr capsule 17:20: daily. [place] [address] Medical Branch om 2020-0 Yes Take by Univers 3/E/linol/a 2-14 mouth. ity of la/oleic/gl 17:20: [place] a/lip 21 Medical (OMEGA Branch 3-6-9 ORAL) tamsulosin 2020-0 Yes Take by Uni vers 0.4 mg 24 2-14 mouth ity of hr capsule 17:20: daily. [place] [address] Medical Branch om 2020-0 Yes Take by Univers 3/E/linol/a 2-14 mouth. ity of la/oleic/gl 17:20: [place] a/lip 21 Medical (OMEGA Branch 3-6-9 ORAL) tamsulosin 2020-0 Yes Take by Uni vers 0.4 mg 24 2-14 mouth ity of hr capsule 17:20: daily. [place] [address] Medical Branch om 2020-0 Yes Take by Univers 3/E/linol/a 2-14 mouth. ity of la/oleic/gl 17:20: [place] a/lip 21 Medical (OMEGA Branch 3-6-9 ORAL) tamsulosin 2020-0 Yes Take by Uni vers 0.4 mg 24 2-14 mouth ity of hr capsule 17:20: daily. [place] [address] Medical Branch om 2020-0 Yes Take by Univers 3/E/linol/a 2-14 mouth. ity of la/oleic/gl 17:20: [place] a/lip 21 Medical (OMEGA Branch 3-6-9 ORAL) tamsulosin 2020-0 Yes Take by Uni vers 0.4 mg 24 2-14 mouth ity of hr capsule 17:20: daily. [place] [address] Medical Branch om 2020-0 Yes Take by Univers 3/E/linol/a 2-14 mouth. ity of la/oleic/gl 17:20: [place] a/lip 21 Medical (OMEGA Branch 3-6-9 ORAL) tamsulosin 2020-0 Yes Take by Uni vers 0.4 mg 24 2-14 mouth ity of hr capsule 17:20: daily. [place] [address] Medical Branch om 2020-0 Yes Take by Univers 3/E/linol/a 2-14 mouth. ity of la/oleic/gl 17:20: [place] a/lip 21 Medical (OMEGA Branch 3-6-9 ORAL) tamsulosin 2020-0 Yes Take by Uni vers 0.4 mg 24 2-14 mouth ity of hr capsule 17:20: daily. [place] [address] Medical Branch om 2020-0 Yes Take by Univers 3/E/linol/a 2-14 mouth. ity of la/oleic/gl 17:20: [place] a/lip 21 Medical (OMEGA Branch 3-6-9 ORAL) tamsulosin 2020-0 Yes Take by Uni vers 0.4 mg 24 2-14 mouth ity of hr capsule 17:20: daily. [place] [address] Medical Branch om 2020-0 Yes Take by Univers 3/E/linol/a 2-14 mouth. ity of la/oleic/gl 17:20: [place] a/lip 21 Medical (OMEGA Branch 3-6-9 ORAL) tamsulosin 2020-0 Yes Take by Uni vers 0.4 mg 24 2-14 mouth ity of hr capsule 17:20: daily. [place] [address] Medical Branch om 2020-0 Yes Take by Univers 3/E/linol/a 2-14 mouth. ity of la/oleic/gl 17:20: [place] a/lip 21 Medical (OMEGA Branch 3-6-9 ORAL) tamsulosin 2020-0 Yes Take by Uni vers 0.4 mg 24 2-14 mouth ity of hr capsule 17:20: daily. [place] [address] Medical Branch om 2020-0 Yes Take by Univers 3/E/linol/a 2-14 mouth. ity of la/oleic/gl 17:20: [place] a/lip 21 Medical (OMEGA Branch 3-6-9 ORAL) tamsulosin 2020-0 Yes Take by Uni vers 0.4 mg 24 2-14 mouth ity of hr capsule 17:20: daily. [place] [address] Medical Branch om 2020-0 Yes Take by Univers 3/E/linol/a 2-14 mouth. ity of la/oleic/gl 17:20: [place] a/lip 21 Medical (OMEGA Branch 3-6-9 ORAL) tamsulosin 2020-0 Yes Take by Uni vers 0.4 mg 24 2-14 mouth ity of hr capsule 11:20: daily. [place] [address] Medical Branch om 2020-0 Yes Take by Univers 3/E/linol/a 2-14 mouth. ity of la/oleic/gl 11:20: [place] alip 21 Medical (OMEGA Branch 3-6-9 ORAL) tamsulosin 2020-0 Yes Take by Uni vers 0.4 mg 24 2-14 mouth ity of hr capsule 11:20: daily. [address] Branch om 2020-0 Yes Take by Univers 3/E/linol/a 2-14 mouth. ity of la/oleic/gl 11:20: [place] a/lip 21 Medical (OMEGA Branch 3-6-9 ORAL) diclofenac 2018-03 2020- No [id number] 75mg Take 1 Univers 75 mg EC 05-03 9109 tablet by ity o f tablet 00:00: 05:59 mouth 2 [place] 00 :00 (two) Medical times [place] daily with meals for 60 days. diclofenac 2018-03 2020- No [id number] 75mg Take 1 Univers 75 mg EC 05-03- 9109 tablet by ity o f tablet 00:00: 05:59 mouth 2 [place] 00 :00 (two) Medical times Branch daily with meals for 60 days. diclofenac 2018-03 2020- No [id number] 75mg Take 1 Univers 75 mg EC 05-03 9109 tablet by ity o f tablet 00:00: 05:59 mouth 2 [place] 00 :00 (two) Medical times Branch daily with meals for 60 days. diclofenac 2018-03 2020- No [id number] 75mg Take 1 Univers 75 mg EC 205-02 9109 tablet by ity o f tablet 00:00: 05:59 mouth 2 [place] 00 :00 (two) Medical times Branch daily with meals for 60 days. diclofenac Yes [id number] 75mg Take 1 Univers 75 mg EC 8-28 9109 tablet by ity of tablet 00:00: mouth 2 [place] 00 (two) Medical times Branch daily with meals. diclofenac Yes [id number] 75mg Take 1 Univers 75 mg EC 8- 9109 tablet by ity of tablet 00:00: mouth 2 [place] 00 (two) Medical times Branch daily with meals. diclofenac Yes [id number] 75mg Take 1 Univers 75 mg EC 8- 9109 tablet by ity of tablet 00:00: mouth 2 [place] 00 (two) Medical times Branch daily with meals. diclofenac 2019- No [id number] 75mg Take 1 Univers 75 mg EC 8-11-01 9109 tablet by ity o f tablet 00:00: 00:00 mouth 2 [place] 00 :00 (two) Medical times Branch daily with meals. predniSONE Yes TAKE 1 Unive rs 10 mg 7-19 TABLET BY ity of tablet 00:00: MOUTH [place] 00 TWICE Medical DAILY FOR Branch 5 DAYS predniSONE Yes TAKE 1 Unive rs 10 mg 7-19 TABLET BY ity of tablet 00:00: MOUTH [place] 00 TWICE Medical DAILY FOR Branch 5 DAYS amoxicillin Yes TAKE 1 Univ ers -clavulanat 7-19 TABLET BY ity of e 875-125 00:00: MOUTH [place] mg per 00 EVERY 12 Medical tablet HOURS FOR Branch 7 DAYS predniSONE Yes TAKE 1 Unive rs 10 mg 7-19 TABLET BY ity of tablet 00:00: MOUTH [place] 00 TWICE Medical DAILY FOR Branch 5 DAYS predniSONE 2019- Yes TAKE 1 Unive rs 10 mg 7-19 TABLET BY ity of tablet 00:00: MOUTH [place] 00 TWICE Medical DAILY FOR Branch 5 DAYS predniSONE 2019- Yes TAKE 1 Unive rs 10 mg 7-19 TABLET BY ity of tablet 00:00: MOUTH [place] 00 TWICE Medical DAILY FOR Branch 5 [...] Medical DAILY FOR Branch 5 DAYS amoxicillin 2018- Yes TAKE 1 Univ ers -clavulanat 7-19 [...] Medical DAILY FOR Branch 5 DAYS amoxicillin 2018- Yes TAKE 1 Univ ers -clavulanat 7-19 TABLET BY ity of e 875-125 00:00: MOUTH [place] mg per 00 EVERY 12 Medical tablet HOURS FOR Branch 7 DAYS predniSONE 2019- Yes TAKE 1 Unive [...] 28 DAYS atorvastati atorvastati No atorvastat [facility] n 20 mg n 20 mg [...] oral route. hydrocodone hydrocodone No [address] [facility] 10 10 e 10 Family mg-acetamin mg-acetamin mg-acetami Practic ophen 325 ophen 325 nophen 325 e mg tablet mg tablet mg tablet Take 1 Take 1 Take 1 tablet tablet tablet every 4 every 4 every 4 hours by hours by hours by oral route. oral route. oral route. [facility] mg-acetamin mg-acetamin mg-acetami Practic ophen 325 ophen 325 nophen 325 e mg tablet mg tablet mg tablet TAKE 1 TAKE 1 TAKE 1 TABLET BY TABLET BY TABLET BY MOUTH THREE MOUTH THREE MOUTH TIMES DAILY TIMES DAILY THREE TIMES DAILY metoprolol metoprolol No metoprolol [facility] tartrate 25 tartrate 25 tartrate Family mg tablet mg tablet 25 mg Prac tic TAKE 1 TAKE 1 tablet e TABLET BY TABLET BY TAKE 1 MOUTH TWICE MOUTH TWICE TABLET BY DAILY DAILY MOUTH TWICE DAILY Myrbetriq Myrbetriq No Myrbetriq [facility] 25 mg 25 mg 25 mg [...] oral route. Pneumovax-2 Pneumovax-2 No Pneumovax- [facility] 3 25 3 25 23 25 Family mcg/0.5 mL mcg/0.5 mL mcg/0.5 mL Practic injection injection injection e syringe syringe syringe PHARMACIST PHARMACIST PHARMACIST ADMINISTERE ADMINISTERE ADMINISTER D D ED IMMUNIZATIO IMMUNIZATIO IMMUNIZATI N N ON ADMINISTERE ADMINISTERE ADMINISTER D AT TIME D AT TIME ED AT TIME OF OF OF DISPENSING DISPENSING DISPENSING prednisone prednisone No prednisone [facility] 5 mg tablet 5 mg tablet [...] DISPENSING DISPENSING tamsulosin tamsulosin No tamsulosin [facility] 0.4 mg 0.4 mg 0.4 mg [...] DAILY DAILY DAILY warfarin warfarin No warfarin Hnanah zoe 2.5 mg 2.5 mg 2.5 mg [...] DAILY DAILY No known No Univers medications [facility] No known No Univers medications [facility] Immunizations Ordered Immunization Filled Immunization Date Status Commen ts Source Name Name pneumococcal pneumococcal 2019-03-31 [facility] PPV[facility] polysaccharide PPV23 00:00:00 Practice Tdap Tdap 2019-03-[address] [facility] Family 00:00:00 Practice Vital Signs Vital Name Observation Time Observation Value Comments Source BP Diastolic 2020-03-10 00:00:00 68 mm[Hg] [facility] Height 2020-03-10 00:00:00 68 [in_i] [facility] BMI (Body Mass 2020-03-10 00:00:00 27.4 kg/m2 [facility]) Practice BP Systolic 2020-03-10 00:00:00 126 mm[Hg] [facility] Body Weight 2020-03-10 00:00:00 180 [lb_av] [facility] WEIGHT 2020-01-03 04:20:00 81.194 kg WEIGHT [...] 19:40:00 150 mm[Hg] Univer sity of pressure [facility] Diastolic blood 2019-11-07 19:40:00 74 mm[Hg] Unive rsity of pressure [facility] Heart rate 2019-11-07 19:40:00 76 /min Universi [facility] Body temperature 2019-11-07 19:40:00 [facility].44 [facility] 2019-11-07 19:40:00 18 /[facility] weight 2019-11-07 19:40:00 81.647 kg [facility] [place] [facility] BMI 2019-11-07 19:40:00 25.83 kg/m2 [facility] [place] [facility] Systolic blood 2019-11-07 19:40:00 150 mm[Hg] Univer sity of pressure [place] [facility] Diastolic blood 2019-11-07 19:40:00 74 mm[Hg] Unive rsity of pressure [place] [facility] Heart rate 2019-11-07 19:40:00 76 /min [facility]i [facility] [place] [facility] Body temperature 2019-11-07 19:40:00 36.44 Natalie Univ ersity of [place] [facility] Respiratory rate 2019-11-07 19:40:00 18 /min Univ ersity [facility] [place] [facility] Body weight 2019-11-07 19:40:00 81.647 kg [facility] [place] [facility] BMI 2019-11-07 19:40:00 25.83 kg/m2 [facility] [place] [facility] Respiratory rate 2019-09-24 20:24:00 18 /min Univ ersity of [place] [facility] Body weight 2019-09-24 20:24:00 82.373 kg [facility]i [facility] [place] [facility] BMI 2019-09-24 20:24:00 26.06 kg/m2 [facility] [place] [facility] Systolic blood 2019-09-24 20:24:00 155 mm[Hg] Univer sity of pressure [place] [facility] Diastolic blood 2019-09-24 20:24:00 76 mm[Hg] Unive rsity of pressure [place] [facility] Heart rate 2019-09-24 20:24:00 63 /min [facility]i [facility] [place] [facility] Body temperature 2019-09-24 20:24:00 36.11 Natalie Univ ersity of [place] [facility] Respiratory rate 2019-09-24 20:24:00 18 /min Univ ersity of [place] [facility] Body weight 2019-09-24 20:24:00 82.373 kg [facility] [place] [facility] BMI 2019-09-24 20:24:00 26.06 kg/m2 [facility] [place] [facility] Systolic blood 2019-09-24 20:24:00 155 mm[Hg] Univer sity of pressure [place] [facility] Diastolic blood 2019-09-24 20:24:00 76 mm[Hg] Unive rsity of pressure [place] [facility] Heart rate 2019-09-24 20:24:00 63 /min Universi ty of [facility] Body temperature 2019-09-24 20:24:00 36.11 Natalie Univ ersity of [facility] Systolic blood 2019-09-21 20:41:00 149 mm[Hg] Univer sity of pressure [facility] Diastolic blood 2019-09-21 20:41:00 79 mm[Hg] Unive rsity of pressure [facility] Heart rate 2019-09-21 20:41:00 64 /min Universi ty of [facility] Body temperature 2019-09-21 20:41:00 35.78 Natalie Univ ersity of [facility] Branch Respiratory rate 2019-09-21 20:41:00 18 /min Univ ersity of [facility] Body weight 2019-09-21 20:41:00 81.829 kg Universi ty of [facility] BMI 2019-09-21 20:41:00 25.88 kg/m2 Universi ty of [facility] Systolic blood 2019-09-02 11:05:00 188 mm[Hg] Univer sity of pressure [facility] Diastolic blood 2019-09-02 11:05:00 85 mm[Hg] Unive rsity of pressure [facility] Heart rate 2019-09-02 11:05:00 84 /min Universi ty of [facility] Body temperature 2019-09-02 11:05:00 36.89 Natalie Univ ersity of [facility] Respiratory rate 2019-09-02 11:05:00 16 /min Univ ersity of [facility] Body height 2019-09-02 11:05:00 177.8 cm Universi ty of [facility] Body weight 2019-09-02 11:05:00 79.379 kg Universi ty of [facility] BMI 2019-09-02 11:05:00 25.11 kg/m2 Universi ty of [facility] Oxygen saturation in 2019-09-02 11:05:00 99 /min University of Arterial blood by [facility] Pulse oximetry Branch Body temperature 2019-08-10 20:51:00 36.61 Natalie Univ ersity of [facility] Respiratory rate 2019-08-10 20:51:00 22 /min Univ ersity of [facility] Body weight 2019-08-10 20:51:00 80.797 kg Universi ty of [facility] BMI 2019-08-10 20:51:00 27.08 kg/m2 [facility] [place] [facility] Oxygen saturation in 2019-08-10 20:51:00 96 /min University of Arterial blood by [facility] Pulse oximetry Branch Systolic blood 2019-07-09 15:45:00 131 mm[Hg] Univer sity of pressure [place] [facility] Diastolic blood 2019-07-09 15:45:00 69 mm[Hg] Unive rsity of pressure [place] [facility] Heart rate 2019-07-09 15:45:00 49 /min [facility] [place] [facility] Body temperature 2019-07-09 15:45:00 37 Natalie [facility] ers[facility] [place] [facility] Respiratory rate 2019-07-09 15:45:00 20 /min Univ ers[facility] [place] [facility] Body height 2019-07-09 15:45:00 172.7 cm [facility] [place] [facility] Body weight 2019-07-09 15:45:00 82.101 kg [facility] [place] [facility] BMI 2019-07-09 15:45:00 27.52 kg/m2 [facility] [place] [facility] Oxygen saturation in 2019-07-09 15:45:00 98 /min University of Arterial blood by [facility] Pulse oximetry Branch Systolic blood 2019-05-24 18:10:00 132 mm[Hg] Univer sity of pressure [place] [facility] Diastolic blood 2019-05-24 18:10:00 61 mm[Hg] Unive rsity of pressure [place] [facility] Heart rate 2019-05-24 18:10:00 50 /min [facility] [place] [facility] Body temperature 2019-05-24 18:10:00 36.56 Natalie [facility] ers[facility] [place] [facility] Respiratory rate 2019-05-24 18:10:00 18 /min Univ ersity [facility] [place] [facility] Body weight 2019-05-24 18:10:00 82.101 kg [facility] [place] [facility] BMI 2019-05-24 18:10:00 27.52 kg/m2 [facility] [place] [facility] Body temperature 2019-05-04 17:26:00 36.83 Natalie [facility] ers[facility] [place] [facility] Respiratory rate 2019-05-04 17:26:00 20 /min [facility] ersity of [place] [facility] Branch Body height 2019-05-04 17:26:00 172.7 cm [facility] Body weight 2019-05-04 17:26:00 79.379 kg [facility] BMI 2019-05-04 17:26:00 26.61 kg/m2 [facility] Oxygen saturation in 2019-05-04 17:26:00 98 /min [facility] of Arterial blood by [facility] Pulse oximetry Branch Systolic blood 2019-05-04 17:26:00 139 mm[Hg] [facility] Diastolic blood 2019-05-04 17:26:00 67 mm[Hg] [facility] Heart rate 2019-05-04 17:26:00 80 /min [facility] Systolic blood 2019-04-20 17:14:00 135 mm[Hg] [facility] Diastolic blood 2019-04-20 17:14:00 80 mm[Hg] [facility] Heart rate 2019-04-20 17:14:00 80 /min [facility] Body temperature 2019-04-20 17:14:00 36.67 Natalie [facility] Branch Respiratory rate 2019-04-20 17:11:00 20 /min [facility] Body height 2019-04-20 17:11:00 172.7 cm [facility] Body weight 2019-04-20 17:11:00 77.565 kg [facility] BMI 2019-04-20 17:11:00 26.00 kg/m2 [facility] Oxygen saturation in 2019-04-20 17:11:00 98 /min [facility] of Arterial blood by [facility] Pulse oximetry Branch Systolic blood 2018-10-06 13:34:00 127 mm[Hg] [facility] Diastolic blood 2018-10-06 13:34:00 72 mm[Hg] [facility] Body height 2018-10-06 13:34:00 175.3 cm [facility] Body weight 2018-10-06 13:34:00 81.647 kg [facility] BMI 2018-10-06 13:34:00 26.58 kg/m2 [facility] Procedures Procedure Date / Time Performing Clinician Source Performed AUTHORIZATION FOR 2020-02-18 06:01:00 Doctor Unassigned, No [facility] [place] RELEASE OF PHI [facility] COMP. METABOLIC PANEL 2019-09-02 11:21:00 [place] Mccall [facility] ([id number]) [facility] CBC WITH DIFFERENTIAL 2019-09-02 11:21:00 [place] Mccall [facility] URINALYSIS 2019-09-02 11:21:00 Singer [place] o f [facility] NOTICE OF PRIVACY 2019-09-02 10:54:46 Doctor Unassigned, No [facility] PRACTICES Name [facility] CONSENT/REFUSAL FOR 2019-09-02 10:54:27 [facility], [facility] PHYSICIAN ORDERS 2019-05-24 05:01:00 Doctor Unassigned, No [facility] POCT URINALYSIS AUTO 2019-05-04 17:32:00 Robbie Car [facility] DISCLOSURE AND CONSENT, 2019-05-04 06:01:00 Doctor Unassigned, N o [facility] MEDICAL AND SURGICAL [facility] PROCEDURES POCT URINALYSIS AUTO 2019-04-20 17:08:00 Robbie Car [facility] ASSIGNMENT OF BENEFITS 2019-04-20 16:53:27 Doctor Unassigned, No [facility] REFERRAL- 2018-10-04 05:01:00 Doctor Unassigned, No [facility] REQUEST/RESPONSE [facility] REFUSAL OF NON-MEDICAL 2018-04-20 06:01:00 Doctor Unassigned, No [facility] SERVICES [facility] Plan of Care Planned Activity Planned Date Details Comments Source Instructions [facility] Practice Encounters Start End Encounter Admission Attending Care Care Encounter Source Date/Time Date/Time Type Type Clinicians Facility Department ID 2021-01-02 Emergency [facility] [id number] Univers 14:31:41 [facility] 2021-01-02 Emergency [facility] [id number] Univers 03:17:11 [facility] 2020-12-10 Inpatient ER NIA MIRANDA Surgery [id number] SLE 12:16:46 ZOYA 2020-12-10 Inpatient ER COLT MOLINA Gastro [id number] [facility] 12[facility]16:10 [facility] 2021-01-07 2021-01-07 [facility]phone [facility] 1.2.840.114 [id number] Univers 00:00:00 00:00:00 Eduardo Sandhu HEALTH 350.1.13.10 it y of [place] 4.2.7.2.686 Bran as ARISTEO?BLEA [phone] Id delia THOMAS [address] [place] [address] 2021-01-05 2021-01-05 [facility] 1.2.840.114 [id number] Univers 00:00:00 00:00:00 Eduardo Sandhu HEALTH 350.1.13.10 it y of [place] 4.2.7.2.686 Bran as ARISTEO?BLEA [phone] Id delia THOMAS [address] [place] [address] 2020-10-14 2020-10-14 [place] [facility] 1.2.840.114 [id number] Univers 00:00:00 00:00:00 Eduardo Sandhu Health 350.1.13.10 it y of Surgical 4.2.7.2.686 Bran as Specialti [id number] Id delia bowen 198 [facility] 2020-10-09 2020-10-09 [place] [facility] 1.2.840.114 [id number] Univers 00:00:00 00:00:00 Eduardo Sandhu Health 350.1.13.10 it y of Surgical 4.2.7.2.686 Bran as Specialti [id number] Id pemaal es 198 [facility] 2020-09-11 2020-09-11 [facility] 1.2.840.114 [id number] Univers 00:00:00 00:00:00 Marquis [facility] 350.1.13.10 it y of Surgical 4.2.7.2.686 Bran as Specialti [id number] Id dical es 198 [facility] 2020-08-14 2020-08-14 Michael [facility] 1.2.840.114 [id number] Univers 00:00:00 00:00:00 [facility] 350.1.13.10 it y of Surgical 4.2.7.2.686 Bran as Specialti [phone] Me dical es 198 [place] 2020-07-07 2020-07-07 Telephone [facility] 1.2.840.114 [id number] [facility] 00:00:00 00:00:00 Eduardo Sandhu [facility] 350.1.13.10 it y of Surgical 4.2.7.2.686 Bran as Specialti [id number] Id dical es 198 [place] 2020-07-07 2020-07-07 Telephone [facility] 1.2.840.114 [id number] 00:00:00 00:00:00 Eduardo [facility] 350.1.13.10 Surgical 4.2.7.2.686 Specialti [id number] es 198 [place] 2020-06-12 2020-06-12 Outpatient Ajibade_O_A VFP VFP 796 [id number] [facility] 10:56:00 10:56:00 H [id number] [facility] 2020-05-26 2020-05-26 Telephone [facility] 1.2.840.114 [id number] Univers 00:00:00 00:00:00 Eduardo [facility] 350.1.13.10 it y of Surgical 4.2.7.2.686 Bran as Specialti [id number] Id dical es 198 [place] 2020-05-26 2020-05-26 Telephone [facility] 1.2.840.114 [id number] 00:00:00 00:00:00 Eduardo [facility] 350.1.13.10 Surgical 4.2.7.2.686 Specialti [id number] es 198 [place] 2020-03-20 2020-03-20 Outpatient Ajibade_O_A VFP VFP [id number] Village 05:22:00 05:22:00 H [id number] Family Practic e 2020-03-20 2020-03-20 Outpatient Ajibade_O_A VFP VFP 796 [id number] Village 05:22:00 05:22:00 H [id number] Family Practic e 2020-03-20 2020-03-20 Outpatient Ajibade_O_A VFP VFP [id number] [facility] 05:22:00 05:22:00 H 57378 Family Practic e 2020-03-20 2020-03-20 Telephone Kory LAPAMELLA 1.2.436.470 [id number] [facility] 00:00:00 00:00:00 [facility] 350.1.13.10 it y of Surgical 4.2.7.2.686 Bran as Specialti [id number] Id dical es 198 [facility] 2020-03-20 2020-03-20 Telephone [facility] 1.2.772.749 [id number] 00:00:00 00:00:00 [facility] 350.1.13.10 Surgical 4.2.7.2.686 Specialti [phone] es 198 [place] 2020-03-10 2020-03-10 Outpatient Ajibade_O_A VFP [facility] 7[address] [facility] 11:19:00 11:19:00 H [id number] Family Practic e 2020-03-10 2020-03-10 [facility] [place] - [id number] V illage 00:00:00 00:00:00 Leo Sanchez Famil y INTELLIGENCE CONSULTANT: [id number] Medical - Pract ic Nithya Arteaga, [email or web address] [facility], [facility] [address] , Ph. 2020-02-18 2020-02-18 Orders Doctor NIRAV 1.2.840.114 [id number] [facility] 00:00:00 00:00:00 Only Unassigned, KENNETH 350.1.13.10 ity of [place] [facility] 4.2.7.2.686 Bran as [phone] [address] 2020-02-18 2020-02-18 Orders Doctor NIRAV 1.2.840.114 [id number] 00:00:00 00:00:00 Only Unassigned, KENNETH 350.1.13.10 [place] [facility] 4.2.7.2.686 [id number] [facility] 2020-01-28 2020-01-28 Telephone Kory [facility] 1.2.353.503 [id number] [facility] 00:00:00 00:00:00 Marqusi S Health 350.1.13.10 it y of Surgical 4.2.7.2.686 Bran as Specialti [phone] Me dical es 198 [facility] 2020-01-28 2020-01-28 Telephone [facility] 1.2.449.092 [id number] 00:00:00 00:00:00 [facility] 350.1.13.10 Surgical 4.2.7.2.686 Specialti [phone] es 198 [place] 2019-12-28 2019-12-28 Emergency ER [facility] Emergency [id number] [facility] 20:07:00 20:07:00 2019-12-21 2019-12-21 [facility] 1.2.840.114 [id number] Univers 00:00:00 00:00:00 [facility] 350.1.13.10 [place] [phone] Me dical nal [address] [place] [address] 2019-12-21 2019-12-21 Telephone [facility] 1.2.840.114 [id number] 00:00:00 00:00:00 [facility] 350.1.13.10 [place] 4.2.7.2.686 Professio [phone] [address] 2019-12-20 2019-12-20 [facility] [id number]-20 Univers 09:30:00 09:30:00 [facility] [id number] [facility] 2019-12-20 2019-12-20 [facility] [id number] Univers 09:30:00 09:30:00 ROBBIE [facility] 2019-12-10 2019-12-10 [facility] [id number] Q-20 Univers 15:15:00 15:15:00 [facility] 2019-12-10 2019-12-10 [facility] [id number] Univers 15:15:00 15:15:00 [facility]ly [facility] 2019-12-07 2019-12-07 Outpatient R [facility] [id number] -[id number] Univers 13:00:00 13:00:00 ity [facility] 2019-12-07 2019-12-07 Outpatient R JOYCE [facility] [id number] Univers 13:00:00 13:00:00 ROBBIE ity [facility] 2019-12-07 2019-12-07 Nurse Nurse, [facility] Surgery [facility] 1.2. 840.114 [id number] [facility] 10:38:50 11:10:03 Visit Robbie Car 350.1.13.10 [place] [phone] [address] 2019-12-07 2019-12-07 Nurse Nurse, [facility] 1.2.840.114 [id number] 10:38:50 11:10:03 Visit Surgery Gu [place] 350.1.13.10 [place] 4.2.7.2.686 Professio [phone] [address] 2019-11-20 2019-11-20 Nurse Nurse, [facility] Surgery [facility] 1.2. 840.114 [id number] [facility] 13:06:00 13:52:14 Visit Robbie Car 350.1.13.10 [place]2.[place] [phone] [address] 2019-11-20 2019-11-20 Nurse Nurse, [facility] 1.2.840.114 [id number] 13:06:00 13:52:14 Visit Surgery Gu [place] 350.1.13.10 [place] 4.2.7.2.686 Professio [id number] [address] 2019-11-20 2019-11-20 Outpatient R [facility] [id number] -[id number] Univers 13:00:00 13:00:00 [id number] ity [facility] 2019-11-20 2019-11-20 Outpatient R JOYCE [facility] [id number] Univers 13:00:00 13:00:00 [facility] ity [facility] 2019-11-07 2019-11-07 Nurse Nurse, [facility] Surgery [facility] 1.2. 840.114 [id number] Univers 14:34:31 14:49:31 Visit Robbie Car 350.1.13.10 [place] [phone] [address] 2019-11-07 2019-11-07 Nurse Nurse, [facility] 1.2.840.114 [id number] 14:34:31 14:49:31 Visit Shree Kendrick 350.1.13.10 [place] 4.2.7.2.686 Professio [phone] [address] 2019-11-07 2019-11-07 Outpatient R [facility] [id number] Univers 14:15:00 14:15:00 ity [facility] 2019-11-07 2019-11-07 Outpatient [facility] [id number] Univers 11:00:00 11:00:00 ity [facility] 2019-11-07 2019-11-07 Outpatient R [facility] [id number] Univers 11:00:00 11:00:00 [facility]ly [facility] 2019-11-01 2019-11-01 Outpatient Ajibade_O_A VFP VFP [id number] [facility] 04:47:00 04:47:00 H [id number] Family Practic e 2019-09-24 2019-09-24 Office [facility] 1.2.840.114 [id number] Univers 15:17:44 17:03:35 Visit Robbie [place] 350.1.13.10 [place]2.[place] [phone] [address] 2019-09-24 2019-09-24 Office [facility] 1.2.840.114 [id number] 15:17:44 17:03:35 Visit Robbie Kendrick 350.1.13.10 [place] 4.2.7.2.[address] Professio [phone] [address] 2019-09-24 2019-09-24 [facility] [id number] Q-20 Univers 16:00:00 16:00:00 [facility] ity [facility] 2019-09-24 2019-09-24 Outpatient R JOYCE [facility] [id number] Univers 16:00:00 16:00:00 ROBBIE ity [facility] 2019-09-21 2019-09-21 Office Joyce [facility] 1.2.840.114 [id number] Univers 15:33:57 16:14:10 Visit Robbie [place] 350.1.13.10 [place] [phone] Id dical nal [address] [place] [address] 2019-09-21 2019-09-21 Outpatient R JOYCE [facility] [id number] Univers 16:00:00 16:00:00 ROBBIE ity of [facility] 2019-09-21 2019-09-21 Outpatient R JOYCE [facility] [id number] Q-20 Univers 11:00:00 11:00:00 [facility] [id number] ity of [facility] 2019-09-19 2019-09-19 Nurse Nurse, Adc Surgery [facility] 1.2. 840.114 [id number] Univers 10:50:18 11:21:35 Visit Robbie Car [place] 350.1.13.10 [place]2.[place] [id number] Id dical nal [address] [place] [address] 2019-09-19 2019-09-19 Outpatient R [facility] [id number] -[id number] Univers 10:45:00 10:45:00 [id number] ity of [facility] 2019-09-19 2019-09-19 Outpatient R [facility] [id number] Univers 10:45:00 10:45:00 ity of [facility] 2019-09-17 2019-09-17 [facility] 1.2.996.346 [id number] Univers 00:00:00 00:00:00 Eduardo Sandhu [facility] 350.1.13.10 it y of Surgical 4.2.7.2.686 Bran as Specialti [phone] Id dical es 198 [facility] 2019-09-17 2019-09-17 Refradha [facility] 1.2.465.901 [id number] 00:00:00 00:00:00 Eduardo Sandhu [employer] 350.1.13.10 Surgical 4.2.7.2.686 Specialti [phone] es [address] [place] 2019-09-02 2019-09-02 Emergency Singer [facility] 1.2.474.976 [id number] Univers 05:59:14 07:38:00 [place] Kendrick 350.1.13.10 [place]2.[place] [phone] [facility] [address] [place] 2019-09-02 2019-09-02 Orders Doctor NIRAV 1.2.840.114 [id number] Univers 00:00:00 00:00:00 Only Unassigned, KENNETH 350.1.13.10 ity of [place] [facility] 4.2.7.2.686 Bran as [id number] [facility] [address] [place] 2019-08-30 2019-08-30 Telephone [facility] 1.2.840.114 [id number] Univers 00:00:00 00:00:00 Eduardo Elliott 350.1.13.10 it y of Surgical 4.2.7.2.686 Bran as Specialti [id number] Id dical es 198 [facility] 2019-08-24 2019-08-24 [facility] [id number]-20 Univers 14:00:00 14:00:00 ROBBIE [id number] ity [facility] 2019-08-24 2019-08-24 [facility] [id number] Univers 14:00:00 14:00:00 ROBBIE [facility]ly [facility] 2019-08-10 2019-08-10 Office [facility] 1.2.840.114 [id number] Univers 15:15:27 16:21:06 Visit Robbie Kendrick 350.1.13.10 [place]2.686 [place] [facility] [phone] Me dical nal 204 [facility] 2019-08-10 2019-08-10 [facility] [id number] Q-20 Univers 16:00:00 16:00:00 ROBBIE ity [facility] 2019-08-10 2019-08-10 Outpatient R JOYCE [facility] [id number] Univers 16:00:00 16:00:00 ROBBIE ity of [facility] 2019-07-23 2019-07-23 Outpatient R JOYCE [facility] [id number] Q-20 Univers 10:00:00 10:00:00 ROBBIE [id number] ity [facility] 2019-07-23 2019-07-23 Outpatient R JOYCE [facility] [id number] Univers 10:00:00 10:00:00 ROBBIE [facility] 2019-07-09 2019-07-09 Office [facility] 1.2.840.114 [id number] Univers 10:27:37 11:55:27 Visit [facility] 350.1.13.10 i ty [facility] 4.2.7.2.686 [place] Professio [phone] Id dical [address] 2019-07-09 2019-07-09 Outpatient R JOYCE [facility] [id number] Q-20 Univers 11:00:00 11:00:00 [facility] [id number] ity [facility] 2019-07-09 2019-07-09 Outpatient R JOYCE [facility] [id number] Univers 11:00:00 11:00:00 [facility] 2019-07-04 2019-07-04 Outpatient R [facility] [id number] Univers 09:00:00 09:00:00 [id number] ity [facility] 2019-07-04 2019-07-04 Outpatient R [facility] [id number] Univers 09:00:00 09:00:00 ity of [facility] 2019-07-03 2019-07-03 Outpatient R [facility] [id number] Univers 10:00:00 10:00:00 [id number] ity of [facility] 2019-07-03 2019-07-03 Outpatient R [facility] [id number] Univers 10:00:00 10:00:00 ity [facility] 2019-07-03 2019-07-03 Nurse Nurse, [facility] Surgery [facility] 1.2. 840.114 [id number] Univers 09:29:30 09:53:59 Visit Robbie Car 350.1.13.10 [place] [phone] Id dical nal 204 [facility] 2019-06-18 2019-06-18 Telephone Juanita [facility] 1.2.840.114 [id number] Univers 00:00:00 00:00:00 [facility] 350.1.13.10 it y of Surgical 4.2.7.2.686 Bran as Specialti [phone] Id dical es 198 [facility] 2019-06-06 2019-06-06 Nurse Nurse, [facility] Surgery [facility] 1.2. 840.114 [id number] Univers 09:58:45 10:28:51 Visit Robbie Car 350.1.13.10 [place]2.[place] [id number] Id dical nal 204 [facility] 2019-06-06 2019-06-06 Outpatient R [facility] [id number] Univers 09:45:00 09:45:00 [id number] ity of [facility] 2019-06-06 2019-06-06 [facility] [id number] Univers 09:45:00 09:45:00 ROBBIE ity [facility] 2019-06-06 2019-06-06 Telephone [facility] 1.2.539.695 [id number] Univers 00:00:00 00:00:00 Gloria Fernandez Mireille 350.1.13.10 [place] [phone] Id dical nal 377 [facility] 2019-05-24 2019-05-24 [facility] [id number] Q-20 Univers 16:15:00 16:15:00 ROBBIE [id number] ity [facility] 2019-05-24 2019-05-24 [facility] [id number] Univers 16:15:00 16:15:00 ROBBIE ity [facility] 2019-05-24 2019-05-24 Office [facility] 1.2.840.114 [id number] Univers 12:43:32 14:03:24 Visit Robbie [place] 350.1.13.10 [place].2.[place] [phone] Id dical [facility] 204 [facility] 2019-05-24 2019-05-24 Outpatient R [facility] [id number] Univers 13:00:00 13:00:00 ROBBIE ity [facility] 2019-05-24 2019-05-24 Orders Doctor NIRAV 1.2.840.114 [id number] Univers 00:00:00 00:00:00 Only Unassigned, KENNETH 350.1.13.10 ity of [place] [facility] 4.2.7.2.686 Bran as [id number] [address] 2019-05-21 2019-05-21 Telephone [facility] 1.2.840.114 [id number] Univers 00:00:00 00:00:00 [facility] 350.1.13.10 it y of Surgical 4.2.7.2.686 Bran as Specialti [phone] Id dical es 198 [facility] 2019-05-04 2019-05-04 Office Joyce [facility] 1.2.840.114 [id number] Univers 11:01:36 12:30:18 Visit Rm, Adc Surg Spec Procedure [place] 3 50.1.13.10 [place] [phone] Id dic[address] 2019-05-04 2019-05-04 Outpatient R [facility] [id number] Univers 11:00:00 11:00:00 ROBBIE ity [facility] 2019-05-04 2019-05-04 Orders Doctor GASTELUM 1.2.840.114 [id number] Univers 00:00:00 00:00:00 Only Unassigned, KENNETH 350.1.13.10 ity of [place] [facility] 4.2.7.2.686 Bran as [id number] [address] 2019-04-25 2019-04-25 Outpatient [facility] [id number] [id number] [facility] 07:22:00 07:22:00 _J_ [id number] Family Practic e 2019-04-24 2019-04-24 Outpatient PAUL, [facility] [id number] 286 [place] 00:00:00 00:00:00 JULIET Martinez [facility] 2019-04-23 2019-04-23 Telephone Joyce [facility] 1.2.840.114 [id number] Univers 00:00:00 00:00:00 [facility] 350.1.13.10 [place]2.[place] [id number] Id dical nal 204 [facility] 2019-04-20 2019-04-20 Outpatient R JOYCE [facility] [id number] Univers 11:00:00 12:03:25 ROBBIE ity [facility] 2019-04-20 2019-04-20 Office [facility] 1.2.840.114 [id number] Univers 10:57:47 12:03:25 Visit [facility] 350.1.13.10 [place]2.[place] [id number] Id dical nal 204 [facility] 2019-04-20 2019-04-20 Orders Doctor NIRAV 1.2.840.114 [id number] Univers 00:00:00 00:00:00 Only Unassigned, KENNETH 350.1.13.10 ity of [place] [facility] 4.2.7.2.686 Bran as [phone] [address] 2018-10-31 2018-10-31 Refill [facility] 1.2.275.047 [id number] Univers 00:00:00 00:00:00 EduardoFormotus 350.1.13.10 it y of Surgical 4.2.7.2.686 Bran as Specialti [id number] Id dical es 198 [facility] 2018-10-06 2018-10-06 Office Juanita [facility] 1.2.570.161 [id number] Univers 08:24:12 09:20:41 Visit Eduardo L [employer] 350.1.13.10 it y of Surgical 4.2.7.2.686 Bran as Specialti [id number] Id dical es [address] [place] 2018-10-04 2018-10-04 Orders Doctor NIRAV Costa.[id number] [employer] 00:00:00 00:00:00 Only Unassigned, KENNETH 350.1.13.10 ity of [facility] 4.2.7.2.686 Bran as [phone] [facility] [address] [place] 2018-04-20 2018-04-20 Orders Doctor NIRAV [id number] [employer] 00:00:00 00:00:00 Only Unassigned, KENNETH 350.1.13.10 ity of [facility] 4.2.7.2.686 Bran as [phone] [address] Results Test Description Test Time Test Comments Results Result Comments Source BLOOD CULTURE 2020-01-03 10:00:00 Test Item Value Reference Range Interpretation Comme nts CULTURE (BEAKER) (test code = 1095) No growth in 5 days BLOOD [id number] 10:00:00 Test Item Value Reference Range Interpretation Comments CULTURE (BEAKER) (test No growth in 5 days code = 1095) CT, CTA, [id number] 09:40:00Unlisted Reason for Exam - Click Yes and Enter Reason Below->YesUnlisted Reason for Exam->s/p TAVR and SAVR with [facility] : 1935 Sex: MAddendum [...] dictated regarding the non-vascular findings by the Grocery Clerk Radiologist. Major vascular findings were discussed with Dr. Valladares at the time of dictation. Signed: Edwardo East Verified Date/Time: 01/02/2020 16:43:17 Reading Location: [place] [address] [address] Reading [facility] [id number] 07:24:00 Test Item Value Reference Range Interpretation [...] S NOT APPLICABLE FOR DIALYSIS PATIEN TS. Credit Administration Officer ID - QUINCY [id number] 07:24:00 Test Item Value Reference Range Interpretation Comments MAGNESIUM (BEAKER) (test code = 1.8 mg/dL 1.6-2.6 627) Credit Administration Officer ID - QUINCY [id number] 07:24:00 Test Item Value Reference Range Interpretation Comments PHOSPHORUS (BEAKER) (test code = 2.7 mg/dL 2.3-4.7 604) Credit Administration Officer ID - QUINCY FPROTHROMBIN TIME/[id number] 07:00:00 Test Item Value Reference Range Interpretation [...] valves.While on warfarin.CBC W/PLT COUNT & AUTO [id number] 06:56:00 Test Item Value Reference Range Interpretation [...] PERCENT (BEAKER) (test code = 2801) PROTHROMBIN TIME/[id number] 18:01:00 Test Item Value Reference Range Interpretation [...] INR is2.5-3.5 for patients wiht mechanical heart valves.[id number] 06:38:00 Test Item Value Reference Range Interpretation Comments MAGNESIUM (BEAKER) (test code = 1.8 mg/dL 1.6-2.6 627) Credit Administration Officer ID - EDASICOMPREHENSIVE METABOLIC [id number] 06:38:00 Test Item Value Reference Range Interpretation [...] S NOT APPLICABLE FOR DIALYSIS PATIEN TS. Credit Administration Officer ID - [id number] 06:38:00 Test Item Value Reference Range Interpretation Comments PHOSPHORUS (BEAKER) (test code = 2.7 mg/dL 2.3-4.7 604) Credit Administration Officer ID - EDASICBC W/PLT COUNT & AUTO [id number] 06:03:00 Test Item Value Reference Range Interpretation [...] PERCENT (BEAKER) (test code = 2801) MRSA [id number] 15:50:00 Test Item Value Reference Range Interpretation Comments CULTURE (BEAKER) (test code No MRSA isolated = 1095) FL, ESOPH, SWALLOW FUNCTION, WITH CINE OR [id number] 15:38:00D/c NGT prior to the study and then attemptReason for exam:->dysphagea [facility] : 1935 Sex: MFINAL REPORT Modified barium swallow exam with speech pathology service CLINICAL HISTORY: dysphagia IMPRESSION: Please see the speech pathology service report for details. Barium contrast of multiple consistencies is given to the patient to swallow. Fluoroscopic observation is performed during swallowing. Fluoro time: 120 minutes Number of images: 1 Signed: Scott Wilkinson Verified Date/Time: 01/01/2020 15:38:45 Reading Location: [address] Reading Room [id number] 06:21:00 Test Item Value Reference Range Interpretation Comments MAGNESIUM (BEAKER) (test code = 1.9 mg/dL 1.6-2.6 627) Credit Administration Officer ID - edasiCOMPREHENSIVE METABOLIC [id number] 06:21:00 Test Item Value Reference Range Interpretation [...] S NOT APPLICABLE FOR DIALYSIS PATIEN TS. Credit Administration Officer ID - [id number] 06:21:00 Test Item Value Reference Range Interpretation Comments PHOSPHORUS (BEAKER) (test code = 1.8 mg/dL 2.3-4.7 L 604) Credit Administration Officer ID - edasiCBC W/PLT COUNT & AUTO [id number] 05:52:00 Test Item Value Reference Range Interpretation [...] PERCENT (BEAKER) (test code = 2801) POCT-GLUCOSE [id number] 19:08:00 Test Item Value Reference Range Interpretation Comments POC-GLUCOSE METER 73 mg/dL 70-110 : TESTED Rebecca Jason [facility] 6720 (BEAKER) (test code = [place], 1538) [address]: Credit Administration Officer/Techni cory ID = [id number] for ALEXANDRO EPSTEIN POCT-GLUCOSE [id number] 14:49:00 Test Item Value Reference Range Interpretation Comments POC-GLUCOSE METER 74 mg/dL 70-110 : TESTED A T [facility] 67[address] (BEAKER) (test code = CHAKA Cheung [facility], 1538) [address]: Credit Administration Officer/Techni cory ID = [id number] for BRETT-STAFFOR TienGENGISSELLE MRSA [id number] 12:26:00 Test Item Value Reference Range Interpretation Comments CULTURE (BEAKER) (test code No MRSA isolated = 1095) SPUTUM CULTURE + GRAM [id number] 12:26:00 Test Item Value Reference Range Interpretation Comments CULTURE (BEAKER) 1+ Normal respiratory (test code = 1095) regina present GRAM STAIN RESULT 4+ WBCs (BEAKER) (test code = 1123) GRAM STAIN RESULT 0-5 epithelial cells (BEAKER) (test code = 91274) GRAM STAIN RESULT <1+ gram positive cocci (BEAKER) (test code = in pairs and clusters 23225) COMPREHENSIVE METABOLIC [id number] 06:48:00 Test Item Value Reference Range Interpretation [...] S NOT APPLICABLE FOR DIALYSIS PATIEN TS. Credit Administration Officer ID - MERON [id number] 06:48:00 Test Item Value Reference Range Interpretation Comments MAGNESIUM (BEAKER) (test code = 2.0 mg/dL 1.6-2.6 627) Credit Administration Officer ID - PIENRIKE [id number] 06:48:00 Test Item Value Reference Range Interpretation Comments PHOSPHORUS (BEAKER) (test code = 2.0 mg/dL 2.3-4.7 L 604) Credit Administration Officer ID - MERON JASEN/S, RENAL, [id number] 06:39:00Reason for exam:- >worsening kidney function/ metabolic acidosis [facility] 1935 Sex: MFINAL [...] 12/31/2019 06:39:51 CBC W/PLT COUNT & AUTO [id number] 06:11:00 Test Item Value Reference Range Interpretation [...] = 2801) RAD, CHEST, 1 VIEW, NON [id number] 01:43:00Reason for exam:->respiratory failureShould this be performed at the bedside?->Yes [facility] : 1935 Sex: MFINAL [...] 12/31/2019 01:43:07 CBC W/PLT COUNT & AUTO [id number] 18:42:00 Test Item Value Reference Range Interpretation [...] (BEAKER) (test code = 2801) VANCOMYCIN LEVEL, [id number] 09:49:00 Test Item Value Reference Range Interpretation Comments VANCOMYCIN TROUGH (BEAKER) (test 9.6 ug/mL 10.0-20.0 L code = 522) Credit Administration Officer ID Justine BORDEN CCOMPREHENSIVE METABOLIC [id number] 05:31:00 Test Item Value Reference Range Interpretation [...] S NOT APPLICABLE FOR DIALYSIS PATIEN TS. Credit Administration Officer ID - BRANDONENRIKE [id number] 05:13:00 Test Item Value Reference Range Interpretation Comments MAGNESIUM (BEAKER) (test code = 1.6 mg/dL 1.6-2.6 627) Credit Administration Officer ID - MERON [id number] 05:13:00 Test Item Value Reference Range Interpretation Comments PHOSPHORUS (BEAKER) (test code = 2.6 mg/dL 2.3-4.7 604) Credit Administration Officer ID - MERON LCBC W/PLT COUNT & AUTO [id number] 04:43:00 Test Item Value Reference Range Interpretation Comments WHITE BLOOD CELL COUNT 19.3 K/ L 3.5-10.5 H (BEAKER) (test code = 775) RED BLOOD CELL COUNT 3.87 M/ L 4.63-6.08 L (BEAKER) (test code = 761) HEMOGLOBIN (BEAKER) 11.7 GM/DL 13.7-17.5 L Discorda nt HGB (test code = 410) results co mpared to previous result s; clinical correl ation required.[id number] HEMATOCRIT (BEAKER) 36.4 % 40.1-51.0 L (test [...] (BEAKER) (test code = 2801) BLOOD GAS, [id number] 04:36:00 Test Item Value Reference Range Interpretation [...] (BEAKER) (test code = 1819) 50.0 CORTISOL,60 [id number] 03:53:00 Test Item Value Reference Range Interpretation [...] to a study by Julia et al (AUTL 2000,283(8):1038-45), the ACTH Stimulation Test provides important [...] Pharmacy Policy and Procedure Section on The Source.Credit Administration Officer ID - PIAYA LCORTISOL,30 [id number] 03:52:00 Test Item Value Reference Range Interpretation [...] Pharmacy Policy and Procedure Section on The Source.Credit Administration Officer ID - PIAYA LRAD, CHEST, 1 VIEW, NON [id number] 03:30:00Reason for exam:- >respiratory failureShould this be performed at the bedside?->Yes [facility] : 1935 Sex: MFINAL [...] Anastasiia Aponte MDReport Verified Date/Time: 12/30/2019 03:30:42 CORTISOL,[id number] 01:31:00 Test Item Value Reference Range Interpretation [...] Pharmacy Policy and Procedure Section on The Source.Credit Administration Officer ID - PIAYA LCREATININE, RANDOM [id number] 19:52:00 Test Item Value Reference Range Interpretation Comments CREATININE URINE (Leonar3DoAKER) (test 310.8 mg/dL code = 375) Reference Range: No NormalsOperator ID - DBSODIUM, RANDOM [id number] 19:52:00 Test Item Value Reference Range Interpretation Comments SODIUM URINE (BEAKER) (test code = < meq/L 243) Reference Range: No NormalsOperator ID - DBPOCT-GLUCOSE [id number] 18:14:00 Test Item Value Reference Range Interpretation Comments POC-GLUCOSE METER 105 mg/dL 70-110 : TESTED A T [facility] 67[address] ([employer]) (test code = [place], 1538) [address]: Credit Administration Officer/Techni cory ID = [id number] for Laura Bauman BASIC METABOLIC [id number] 16:24:00 Test Item Value Reference Range Interpretation [...] S NOT APPLICABLE FOR DIALYSIS PATIEN TS. Credit Administration Officer ID - [id number] 16:23:00 Test Item Value Reference Range Interpretation Comments MAGNESIUM (BEAKER) (test code = 1.6 mg/dL 1.6-2.6 627) Credit Administration Officer ID - DBBLOOD GAS, [id number] 16:09:00 Test Item Value Reference Range Interpretation [...] = 1819) 50.0 RAD, ABDOMEN/KUB, 1 VIEW [id number] 12:40:00Reason for exam:->NGT placement [facility] : 1935 Sex: [...] MDReport Verified Date/Time: 12/29/2019 12:40:58 Reading Location: [address] Body Reading Room B-TYPE NATRIURETIC FACTOR (BNP)2019-12-29 11:35:00 Test Item Value Reference Range Interpretation Comments B-TYPE NATRIURETIC PEPTIDE (BEAKER) 193 pg/mL 0-100 H (test code = 700) Credit Administration Officer ID - MAR CLACTIC ACID, [id number] 11:25:00 Test Item Value Reference Range Interpretation Comments LACTATE BLOOD ARTERIAL (2) 3.3 mmol/L 0.5-2.2 H (BEAKER) (test code = 2874) Credit Administration Officer ID - MAR CLACTIC ACID, [id number] 07:06:00 Test Item Value Reference Range Interpretation Comments LACTATE BLOOD VENOUS 3.49 mmol/L 0.50-2.20 H Specime n slightly (2) (BEAKER) (test hemolyzed code = 2872) Credit Administration Officer ID - EDASIURINALYSIS W/ REFLEX URINE [id number] 06:56:00 Test Item Value Reference Range Interpretation [...] Many 1585) SOURCE(BEAKER) (test code = 2795) Credit Administration Officer ID - [auto]Credit Administration Officer ID - techPROTHROMBIN TIME/[id number] 06:54:00 Test Item Value Reference Range Interpretation [...] INR is2.5-3.5 for patients wiht mechanical heart valves.[id number] 06:54:00 Test Item Value Reference Range Interpretation Comments PARTIAL THROMBOPLASTIN TIME 30.3 seconds 22.5-36.0 (DAVE) (test code = 760) RAD, CHEST, 1 VIEW, NON [id number] 06:51:00Reason for exam:->ETT placementShould this be performed at the bedside?->Yes [facility] : 1935 Sex: [...] uIU/mL 0.350-4.940 (DAVE) (test code = 772) Credit Administration Officer ID - WENDIERANI [id number] 06:40:00 Test Item Value Reference Range Interpretation [...] failure, acidosis, acute neurological disease, and persistent tachyarrhythmia.Credit Administration Officer ID - EDARMEN [id number] 06:36:00 Test Item Value Reference Range Interpretation [...] failure, acidosis, acute neurological disease, and persistent tachyarrhythmia.Credit Administration Officer ID - EDASICBC W/PLT COUNT & AUTO [id number] 04:56:00 Test Item Value Reference Range Interpretation [...] PERCENT (BEAKER) (test code = 2801) TROPONIN [id number] 04:43:00 Test Item Value Reference Range Interpretation [...] failure, acidosis, acute neurological disease, and persistent tachyarrhythmia.Credit Administration Officer ID - EDASICOMPREHENSIVE METABOLIC [id number] 04:37:00 Test Item Value Reference Range Interpretation [...] S NOT APPLICABLE FOR DIALYSIS PATIEN TS. Credit Administration Officer ID - [id number] 04:37:00 Test Item Value Reference Range Interpretation Comments MAGNESIUM (BEAKER) (test code = 1.7 mg/dL 1.6-2.6 627) Credit Administration Officer ID - [id number] 04:37:00 Test Item Value Reference Range Interpretation Comments PHOSPHORUS (BEAKER) (test code = 3.7 mg/dL 2.3-4.7 604) Credit Administration Officer ID - EDASIRAD, CHEST, 1 VIEW, NON [id number] 04:27:00Reason for exam:->ETT positionShould this be performed at the bedside?->Yes [facility] 1935 Sex: MFINAL REPORT CLINICAL INDICATION: Support lines. Comparison: The tip of an endotracheal tube is in good position above the kira at the level of the midclavicular heads. The cardiomediastinal contours are stable. Bilateral parenchymal and pleural opacities are unchanged. There is no pneumothorax. Signed: Gerry Sinha MDReport Verified Date/Time: 12/29/2019 04:27:00 SARS-COV2/RT-PCR ([facility])2019-12-29 04:15:00 Test Item Value Reference Range Interpretation Comments SARS-COV2/RT-PCR (test Negative Not Detected, Negative, code = 6251454) See external report for linked test SARS-COV-2 PERFORMING LAB [facility] (test code = 8109165) Negative result for this test determines that [...] 564(g) of the Act.Fact Sheet for Healthcare Providers:https://www.iXpert/sites/default/files/product/documents/Fact_Shee t_CQ_Anejbjbrz_Novj_XFJJ-KxO-7.pdfFact Sheet for Healthcare Patients:https://www.iXpert/sites/default/files/product/ documents/Vqor_Zunba_Vttcinij_Gcqp_MROT-UiD-6.pdfPerforming Laboratory:[address], [place] [address]DWSA-EZBUB GASES, [id number] 04:14:00 Test Item Value Reference Range Interpretation [...] EXCESS, -1.0 meq/L -2.0-3.0 : TESTED AT [place] [address] ARTERIAL-POC [facility], (BEAKER) (test code [address]: = 1841) Credit Administration Officer/Techni cory ID = [id number] for SHAHZAD HERRERA MALAIKA [id number] 04:14:00 Test Item Value Reference Range Interpretation Comments POC-SODIUM ([facility]) 141 meq/L 135-148 : TESTED AT [place] [address] (test code = 1542) [place], [address]: Credit Administration Officer/Techni cory ID = [id number] for DONNELL GERMAIN [id number] 04:14:00 Test Item Value Reference Range Interpretation Comments POC-POTASSIUM 3.6 meq/L 3.6-5.5 : TESTED AT [place] [address] ([facility]) (test code [facility], = 1540) [address]: Credit Administration Officer/Techni cory ID = [id number] for DONNELL GERMAIN [id number] 04:14:00 Test Item Value Reference Range Interpretation Comments POC-HEMOGLOBIN 16.3 g/dL 13.0-16.8 : TESTED AT [place] [address] ([facility]) (test code [facility], = 1856) [address]: Credit Administration Officer/Techni cory ID = [id number] for DONNELL GERMAIN [id number]-[id number] 04:14:00 Test Item Value Reference Range Interpretation Comments POC-HEMATOCRIT 48 % 40-50 : Credit Administration Officer/Te chnician ID = ([facility]) (test code = 794277 for DONNELL GERMAIN 1857) POCT-CALCIUM [id number] 04:14:00 Test Item Value Reference Range Interpretation Comments POC-CALCIUM IONIZED 1.18 mmol/L 1.12-1.27 : TESTED AT [facility] ([facility]) (test code = [facility] 1536) [place], [address]: Credit Administration Officer/Techni cory ID = [id number] for DONNELL GERMAIN CLAR-[id number] 04:14:00 Test Item Value Reference Range Interpretation Comments POC-GLUCOSE ([facility]) 145 mg/dL 70-110 H : TESTE D AT [place] [address] (test code = 1855) [place], [address]: Credit Administration Officer/Techni cory ID = [id number] for DONNELL GERMAIN CBC W/PLT COUNT & AUTO [id number] 23:29:00 Test Item Value Reference Range Interpretation Comments WHITE BLOOD CELL COUNT ([facility]) 13.1 K/ L 3.5-10.5 H (test code [...] (BEAKER) (test code = 2801) BASIC METABOLIC [id number] 23:07:00 Test Item Value Reference Range Interpretation [...] S NOT APPLICABLE FOR DIALYSIS PATIEN TS. Credit Administration Officer ID - DBRAD, CHEST, 1 VIEW, NON [id number] 22:49:00Reason for exam:->pre-anesthesiaShould this be performed at the bedside?->Yes [facility] : 1935 Sex: [...] MDReport Verified Date/Time: 12/06 22:49:33 Reading Location: [facility] C013T Transitional Reading Room [facility]OMP. METABOLIC PANEL ([address])2019-09-02 11:55:00 Test Item Value Reference Range Interpretation Comments NA (test code = 139 mmol/L 135-145 9896265755) K (test code = 4.1 mmol/L 3.5-5 6535308210) CL (test code = 104 mmol/L 98-108 0477301483) CO2 TOTAL (test code = 29 mmol/L 23-31 2921186469) AGAP (test code = 2-16 4426494445) BUN (test code = 21 mg/dL 7-23 8178697008) GLUCOSE (test code = 99 mg/dL 70-110 3187519453) CREATININE (test code 0.86 mg/dL 0.6-1.25 = 3955892991) TOTAL BILI (test code 0.7 mg/dL 0.1-1.1 = 1011337069) CALCIUM (test code = 9.3 mg/dL 8.6-10.6 9146299252) T PROTEIN (test code = 7.2 g/dL 6.3-8.2 3773343965) ALBUMIN (test code = 4.2 g/dL 3.5-5 8782545996) ALK PHOS (test code = 75 U/L 34-122 9967435381) ALTv (test code = 28 U/L 5-50 1742-6) AST(SGOT) (test code = 33 U/L 13-40 0596928702) eGFR Calculation mL/min/1.73m2 (Non-) (test code = 3990450971) eGFR Calculation mL/min/1.73m2 () (test code = 8934746055) JETT (test code = JETT) Association of [...] or urine or abnormalities in imaging tests). [facility] [id number] 11:53:00 Test Item Value Reference Range Interpretation Comments APPEARANCE (test code = Clear Clear 6108915845) COLOR (test code = Yellow Yellow 3408679734) PH (test code = 4.8-8.0 4310374876) SP GRAVITY (test code = 1.003-1.030 6151445457) GLU U QUAL (test code = Normal Normal 7918996753) BLOOD (test code = 1+ Negative A 0888044307) KETONES (test code = Negative Negative 0805746154) PROTEIN (test code = Negative Negative 2887-8) UROBILIN (test code = Normal Normal 2084250867) BILIRUBIN (test code = Negative Negative 0980585016) NITRITE (test code = Negative Negative 8292439834) LEUK ROLAN (test code = 75/uL Negative A 2896559860) RBC/HPF (test code = See_Comment H [Autom ated message] 5874996127) The system DGIT generated this result transmitted ref erence range: 0 - 3 HP F. The reference range was not used to int erpret this result as normal/abnormal . WBC/HPF (test code = See_Comment H [Autom ated message] 2616860662) The system DGIT generated this result transmitted ref erence range: 0 - 5 HP F. The reference range was not used to int erpret this result as normal/abnormal . BACTERIA (test code = Few Negative A 6090158137) MUCOUS (test code = Slight Negative LPF A 9436322230) SQ EPITH (test code = <1 HPF 0208580160) TRANS EPI (test code = <1 See_Comment [Aut omated message] 2151222833) The system DGIT generated this result transmitted ref erence range: <=1 HPF. The reference range was not used to int erpret this result as normal/abnormal . NOE EPITH (test code = <1 See_Comment [Aut omated message] 4628824074) The system DGIT generated this result transmitted ref erence range: <=1 HPF. The reference range was not used to int erpret this result as normal/abnormal . Lab Interpretation (test Abnormal code = 75720-6) [facility] WITH [id number] 11:52:00 Test Item Value Reference Range Interpretation Comments WBC (test code = See_Comment [Automated message] 6690-2) The system DGIT generated this result transmitted ref erence range: 4.20 - 1 0.70 10*3/?L. The re ference range was not u sed to interpret this result as normal/abnor mal. RBC (test code = See_Comment [Automated message] 789-8) The system DGIT generated this result transmitted ref erence range: [...] RDW-SD (test code 41.1 fL 38.5-51.6 = 89884-8) RDW-CV (test code 12.1 % 12.1-15.4 = 788-0) PLT (test code = See_Comment [Automated message] 777-3) The system whic h generated this result transmitted ref erence range: 150 - 32 8 10*3/?L. The re ference range was not u sed to interpret this result as normal/abnor mal. MPV (test code = 10.8 fL 9.8-13 85944-2) NRBC/100 WBC (test See_Comment [Automat ed message] code = 8063561617) The syste m which generated this result transmitted ref erence range: 0.0 - 10 .0 /100 WBCs. The refer ence range was not u sed to interpret this result as normal/abnor mal. NRBC x10^3 (test <0.01 See_Comment [Automated message] code = 3235143637) The syste m which generated this result transmitted ref erence range: 10*3/?L. The reference range was not used to interpr et this result as normal/abnormal . GRAN MAT (NEUT) % 44.8 % (test code = 770-8) IMM GRAN % (test 0.40 % code = 2109182543) LYMPH % (test code 42.0 % = 736-9) MONO % (test code 6.9 % = 5905-5) EOS % (test code = 5.0 % 713-8) BASO % (test code 0.9 % = 706-2) GRAN MAT 3.14 10*3/uL 1.99-6.95 x10^3(ANC) (test code = 6853675062) IMM GRAN x10^3 0.03 10*3/uL 0-0.06 (test code = 7773013505) LYMPH x10^3 (test 2.94 10*3/uL 1.09-3.23 code = 731-0) MONO x10^3 (test 0.48 10*3/uL 0.36-1.02 code = 742-7) EOS x10^3 (test 0.35 10*3/uL 0.06-0.53 code = 711-2) BASO x10^3 (test 0.06 10*3/uL 0.01-0.09 code = 704-7) [facility] [id number] 17:34:00 Test Item Value Reference Range Interpretation [...] 3267) Lab Interpretation (test code Normal = 10807-8) [facility] [id number] 17:34:00 Test Item Value Reference Range Interpretation [...] 3267) Lab Interpretation (test code Normal = 57227-6) [facility] URINALYSIS, [id number] 17:09:00 Test Item Value Reference Range Interpretation [...] negative Negative - Negative 3258) POCT U GLU (test code = 3256) [...] U APPEAR (test code = clear 3267) [facility] URINALYSIS, [id number] 17:09:00 Test Item Value Reference Range Interpretation [...] U APPEAR (test code = clear 3267) [facility]"
[2021-03-08] MEDS ORDERED: LIDOCAINE VISCOUS 2% SOLN 15 ML UDC ONE (14:17)
--- NOTE | 2021-03-08 14:43 | EDPHYS ---
Physician Documentation [facility] Name: Rusty Yarbrough Age: 86 yrs Sex: Male : 1935 Arrival Date: 03/08/2021 Time: 12:22 Bed 10 Private MD: ED Physician Calixto Mueller HPI: 03/08 14:45 This 86 yrs old Male presents to ER via Ambulatory with complaints of Problem kdr With Urinary Catheter. 14:45 The patient presents with a Ulrich catheter problem, was pulled out accidentally. Onset: kdr The symptoms/episode began/occurred last night. Modifying factors: The symptoms are alleviated by nothing, the symptoms are aggravated by nothing. Associated signs and symptoms: The patient has no apparent associated signs or symptoms. Severity of symptoms: At their worst the symptoms were mild, in the emergency department the symptoms are unchanged. The patient has not experienced similar symptoms in the past. The patient has not recently seen a physician. Home health came by to change out the Ulrich catheter and unexpectedly, it somehow came out. Patient is unable to relate exactly how the Ulrich was no longer in place. He denies any specific trauma or any bleeding from his urethra. To the best we can tell, this had not happened before. Patient had no other complaints or concerns. Historical: - Allergies: 13:02 Benadryl; iw 13:02 Enalapril; iw - PMHx: 13:02 "heart valve replacement"; Aortic Stenosis; Ataxia; acute, resolved now; bleeding iw ulcers; CAD; COPD; dyspnea; fatigue; Hyperlipidemia; Hypertension; Hypokalemia; melena; Myocardial infarction; syncope; Tachycardia; TIA; Vertigo; ROS: 14:46 Constitutional: Negative for fever, chills, and weight loss, Eyes: Negative for injury, kdr pain, redness, and discharge, Neck: Negative for injury, pain, and swelling, Cardiovascular: Negative for chest pain, palpitations, and edema. 14:46 : Positive for Ulrich catheter dislodged. Exam: 14:46 Constitutional: This is a well developed, well nourished patient who is awake, alert, kdr and in no acute distress. Head/Face: Normocephalic, atraumatic. Eyes: Pupils equal round and reactive to light, extra-ocular motions intact. Lids and lashes normal. Conjunctiva and sclera are non-icteric and not injected. Cornea within normal limits. Periorbital areas with no swelling, redness, or edema. Neck: Trachea midline, no thyromegaly or masses palpated, and no cervical lymphadenopathy. Supple, full range of motion without nuchal rigidity, or vertebral point tenderness. No Meningismus. Chest/axilla: Normal chest wall appearance and motion. Nontender with no deformity. No lesions are appreciated. Cardiovascular: Regular rate and rhythm with a normal S1 and S2. No gallops, murmurs, or rubs. Normal PMI, no JVD. No pulse deficits. Respiratory: Lungs have equal breath sounds bilaterally, clear to auscultation and percussion. No rales, rhonchi or wheezes noted. No increased work of breathing, no retractions or nasal flaring. Abdomen/GI: Soft, non-tender, with normal bowel sounds. No distension or tympany. No guarding or rebound. No evidence of tenderness throughout. 14:46 : CVA tenderness, is absent, Male external genitalia: normal, Bladder: is normal, a ulrich is noted, There was a Ulrich catheter and leg bag attached but the Ulrich was no longer inserted into the bladder. It appears that the patient had a 16 Jordanian Ulrich indwelling prior to its being dislodged. When he presented here we attempted to pass a 16 Jordanian and 16 Jordanian coud without success. We then attempted with a 12 Jordanian coud which was successfully passed. Patient had clear urine return and otherwise tolerated the procedure well and had no complaints. Patient was dressed and ready to exit the department immediately after this procedure was completed.. MDM: 14:43 Patient medically screened. kdr 14:46 Differential diagnosis: nonspecific abdominal pain, Ulrich catheter problem. Data kdr reviewed: vital signs, nurses notes. Counseling: I had a detailed discussion with the patient and/or guardian regarding: the historical points, exam findings, and any diagnostic results supporting the discharge/admit diagnosis, the need for outpatient follow up. Administered Medications: No medications were administered Disposition Summary: 03/08/21 14:43 Discharge Ordered Location: Home kdr Problem: new kdr Symptoms: have improved kdr Condition: Stable kdr Diagnosis - Mechanical complication of urinary (indwelling) catheter kdr Followup: kdr - With: Private Physician - When: 2 - 3 days - Reason: If symptoms return, Further diagnostic work-up, Recheck today's complaints, Continuance of care, Re-evaluation by your physician Discharge Instructions: - Discharge Summary Sheet kdr - Indwelling Urinary Catheter Care, Adult, [id number] kdr Forms: - Medication Reconciliation Form kdr - Thank You Letter kdr Prescriptions: - Bactrim DS 800-160 mg Oral Tablet - take 1 tablet by ORAL route every 12 hours for 3 days; 6 tablet; Refills: 0, kdr Product Selection Permitted Signatures: Calixto Mueller MD MD kdr Paula Govea RN RN iw
--- NOTE | 2021-03-08 14:43 | ER ---
Nurse's Notes [facility] Name: Rusty Yarbrough Age: 86 yrs Sex: Male : 1935 Arrival Date: 03/08/2021 Time: 12:22 Bed 10 Private MD: Diagnosis: Mechanical complication of urinary (indwelling) catheter Presentation: 03/08 13:01 Chief complaint: Patient states: catheter came out last night , needs to be replaced. iw Risk Assessment: Do you want to hurt yourself or someone else? Patient reports no desire to harm self or others. Onset of symptoms was March 08, 2021. 13:01 Method Of Arrival: Ambulatory iw 13:01 Acuity: GAYLE 4 iw Historical: - Allergies: 13:02 Benadryl; iw 13:02 Enalapril; iw - PMHx: 13:02 "heart valve replacement"; Aortic Stenosis; Ataxia; acute, resolved now; bleeding iw ulcers; CAD; COPD; dyspnea; fatigue; Hyperlipidemia; Hypertension; Hypokalemia; melena; Myocardial infarction; syncope; Tachycardia; TIA; Vertigo; ED Course: 12:22 Patient arrived in ED. mr 12:43 Calixto Mueller MD is Attending Physician. kdr 12:59 Paula Govea, RN is Primary Nurse. iw 13:02 Triage completed. iw 14:20 Coud inserted, using sterile technique, 12 Fr. Returned clear yellow urine. To gravity dh3 drainage. Administered Medications: No medications were administered Outcome: 14:43 Discharge ordered by . kdr 14:53 Patient left the ED. iw Signatures: Calixto Mueller MD MD [facility] Paula Govea, RN RN [facility]
== END 2021-03-08 14:53 | disposition home or self-care (01) ==
LOC: ER 12:18
DX: T83.028A Displacement of other urinary catheter, initial encounter (principal)
CPT/HCPCS: 99283

== ENCOUNTER → 2021-03-29 | Emergency (ER) | payer OTHER ==
[2011-09-05 09:32] VITALS: BP 116/69
--- OUTSIDE RECORDS SUMMARY | 2021-03-29 04:53 | XMS REPORT | Continuity of Care Document ---
:1935 Author Organization [facility] t Address [address] [place] [place] [address] Care Team Providers Name Role Phone Perry, E Primary Care Physician RUBEN Attending Clinician Unavailable ADRIANA MOLINA Attending Clinician Unavailable Juanita GAGE L Attending Clinician Kory MACIEL, S Attending Clinician Ajibade_O_AH Attending Clinician Unavailable Doctor Unassigned, Name Attending Clinician Unavailable Joyce GAGE Attending Clinician JOYCE Attending Clinician Unavailable Nurse, Surgery Gu Attending Clinician Unavailable Singer OLVERA Attending Clinician Manny ASSISTANT SERVICE MANAGER, A Attending Clinician Rm, Surg Spec Procedure Attending Clinician Unavailable Ige-[place]_J_AH Attending Clinician Unavailable LITTLE Attending Clinician Unavailable RUBEN Admitting Clinician Unavailable ADRIANA MOLINA Admitting Clinician Unavailable Ajibade_O_AH Admitting Clinician Unavailable [facility] Admitting Clinician Unavailable Ige[place]_J_AH Admitting Clinician Unavailable Payers Payer Name Policy Type Policy Number Effective Date Expiration Date S musa HOOD [id number] 2018 PLUS CLASSIC/VALUE 00:00:00 AARP/MEDICARE [id number] 2015 COMPLETE 00:00:00 [employer] MEDICARE [id number] 2019 ADV 00:00:00 [place] [place] - [id number] 2019 SANAPLUS 00:00:00 (MEDICARE REPLACEMENT/ADVANT AGE - [...] c 00 e 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 arrhythmia Arrhythmia 1-04 [facility] 00:00: Practic 00 e Cerebrovas Cerebrovas Problem Active [facility] c[facility] cular 1-04 Family accident Accident 00:00: Practi c 00 e Asthma Asthma Problem Active [place] 1-04 Family 00:00: Practic 00 e Chronic Chronic Problem Active [facility]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 1-04 [facility] e lung e Lung 00:00: Practic disease Disease 00 e Benign Benign Problem Active [facility] prostatic Prostatic 1-04 Fami ly hyperplasi Hyperplasi 00:00: Pr actic a a 00 e History of History of Problem Active [facility] cerebrovas Cerebrovas 1-04 [facility] robin cular 00:00: Practic accident Accident 00 [...] different from the original. 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 ICD10 Diagnosis Term Referral Agent Utility HLD HLD Disease Active Overview: Univer s (hyperlipi (hyperlipi 04-09 [place]att[place] ity of demia) demia) 00:00: g of this note Medical might be Branch different from the original. ICD10 Diagnosis Term Referral Agent Utility Allergies, Adverse Reactions, Alerts Allergy Allergy Status Severity Reaction(s) Onset Inactive Treating Comm ents Source Name Type Date Date Clinician DIPHENHY Allergy Active 2019-03 [facility] DRAMINE 0-23 HCL 00:00: 00 ENALAPRI Allergy Active Hives 2014-03 [facility] L 03-18 00:00: 00 NO KNOWN Drug Active Univers ALLERGIE Class ity of S [facility] Social History Social Habit Start Date Stop Date Quantity Comments Source Exposure to Not sure [facility] SARS-CoV-2 (event) Medica l Branch Sex Assigned At [birth year] [facility] 00:00:00 00:00:00 Medical Branch Smoking Status Start Date Stop Date Source Unknown if ever smoked [facility] Medications Ordered Filled Start Stop Current Ordering Indication Dosage Frequency Signature Comments Components Source Medication Medication Date Date Medication? Clinician (SIG) Name Name diclofenac 2020-03 Yes [id number] 75mg Take 1 [facility] 75 mg EC 03-07 9109 tablet by ity of tablet 00:00: mouth 2 (two) Medical times Branch daily with meals. diclofenac 2020-03 Yes [id number] 75mg Take 1 [facility] 75 mg EC 1-01 9109 tablet by ity of tablet 00:00: mouth (two) Medical times Branch daily with meals. diclofenac 2020-0 2021- No [id number] 75mg Take 1 [facility] 75 mg EC 8-10 09-10 9109 tablet by ity o f tablet 00:00: 04:59 mouth 2 00 :00 (two) Medical times Branch daily with meals for 30 days. diclofenac 2020-0 Yes [id number] 75mg Take 1 [facility] 75 mg EC 7-08 9109 tablet by ity of tablet 00:00: mouth (two) Medical times Branch daily with meals. diclofenac 2020-0 Yes [id number] 75mg Take 1 [facility] 75 mg EC 7-08 9109 tablet by ity of tablet 00:00: mouth (two) Medical times Branch daily with meals. diclofenac 2020-0 Yes [id number] 75mg Take 1 [facility] 75 mg EC 7-08 9109 tablet by ity of tablet 00:00: mouth (two) Medical times Branch daily with meals. diclofenac 2020-0 2021- No [id number] 75mg Take 1 [facility] 75 mg EC 7-08 11-01 9109 tablet by ity o f tablet 00:00: 00:00 mouth 00 :00 (two) Medical times Branch daily with meals. diclofenac 2020-0 Yes [id number] 75mg Take 1 [facility] 75 mg EC 6-10 9109 tablet by ity of tablet 00:00: mouth (two) Medical times Branch daily with meals. diclofenac 2020-0 Yes [id number] 75mg Take 1 [facility] 75 mg EC 6-10 9109 tablet by ity of tablet 00:00: mouth (two) Medical times Branch daily with meals. diclofenac 2020-0 Yes [id number] 75mg Take 1 [facility] 75 mg EC 6-10 9109 tablet by ity of tablet 00:00: mouth (two) Medical times Branch daily with meals. diclofenac 2020-0 Yes [id number] 75mg Take 1 [facility] 75 mg EC 6-10 9109 tablet by ity of tablet 00:00: mouth (two) Medical times Branch daily with meals. diclofenac 2020-0 Yes [id number] 75mg Take 1 [facility] 75 mg EC 6-10 9109 tablet by ity of tablet 00:00: mouth (two) Medical times Branch daily with meals. diclofenac 2021-0 Yes [id number] 75mg Take 1 [facility] 75 mg EC [...] daily with meals. diclofenac 2021-0 2021- No [id number] 75mg Take 1 [facility] 75 mg EC [...] daily with meals. diclofenac 2019- 2020- No [id number] 75mg Take 1 [facility] 75 mg EC 1-23 12-24 9109 tablet by ity o f tablet 00:00: 05:59 mouth 2 [place] 00 :00 (two) Medical times Branch daily with meals for 30 days. diclofenac 2020-0 Yes [id number] 75mg Take 1 [facility] 75 mg EC 7-14 9109 tablet by ity of tablet 00:00: mouth 2 (two) Medical times Branch daily with meals. diclofenac 2020-0 Yes [id number] 75mg Take 1 [facility] 75 mg EC 7-14 9109 tablet by ity of tablet 00:00: mouth 2 (two) Medical times Branch daily with meals. diclofenac 2020-0 Yes [id number] 75mg Take 1 [facility] 75 mg EC 7-14 9109 tablet by ity of tablet 00:00: mouth (two) Medical times Branch daily with meals. diclofenac 2020-0 Yes [id number] 75mg Take 1 [facility] 75 mg EC 7-14 9109 tablet by ity of tablet 00:00: mouth (two) Medical times Branch daily with meals. diclofenac 2020-0 Yes [id number] 75mg Take 1 [facility] 75 mg EC 7-14 9109 tablet by ity of tablet 00:00: mouth (two) Medical times Branch daily with meals. diclofenac 2020-0 Yes [id number] 75mg Take 1 [facility] 75 mg EC 7-14 9109 tablet by ity of tablet 00:00: mouth (two) Medical times Branch daily with meals. diclofenac 2020-0 Yes [id number] 75mg Take 1 [facility] 75 mg EC 7-14 9109 tablet by ity of tablet 00:00: mouth (two) Medical times Branch daily with meals. diclofenac 2020-0 Yes [id number] 75mg Take 1 [facility] 75 mg EC 7-14 9109 tablet by ity of tablet 00:00: mouth (two) Medical times Branch daily with meals. diclofenac 2020-0 Yes [id number] 75mg Take 1 [facility] 75 mg EC 7-14 9109 tablet by ity of tablet 00:00: mouth [place] (two) Medical times Branch daily with meals. diclofenac 2020-0 Yes [id number] 75mg Take 1 [facility] 75 mg EC 7-14 9109 tablet by ity of tablet 00:00: mouth [place] (two) Medical times Branch daily with meals. diclofenac 2020-0 Yes [id number] 75mg Take 1 [facility] 75 mg EC 7-14 9109 tablet by ity of tablet 00:00: mouth (two) Medical times Branch daily with meals. diclofenac 2020-0 Yes [id number] 75mg Take 1 [facility] 75 mg EC 7-14 9109 tablet by ity of tablet 00:00: mouth [place] (two) Medical times Branch daily with meals. diclofenac 2020-0 Yes [id number] 75mg Take 1 [facility] 75 mg EC 7-14 9109 tablet by ity of tablet 00:00: mouth [place] (two) Medical times Branch daily with meals. diclofenac 2020-0 Yes [id number] 75mg Take 1 [facility] 75 mg EC 7-14 9109 tablet by ity of tablet 00:00: mouth 2 (two) Medical times Branch daily with meals. diclofenac 2020-0 Yes [id number] 75mg Take 1 [facility] 75 mg EC 7-14 9109 tablet by ity of tablet 00:00: mouth 2 (two) Medical times Branch daily with meals. diclofenac 2020-0 Yes [id number] 75mg Take 1 [facility] 75 mg EC 7-14 9109 tablet by ity of tablet 00:00: mouth 2 (two) Medical times Branch daily with meals. diclofenac 2020-0 Yes [id number] 75mg Take 1 [facility] 75 mg EC 7-14 9109 tablet by ity of tablet 00:00: mouth 2 (two) Medical times Branch daily with meals. diclofenac 2020-0 Yes [id number] 75mg Take 1 [facility] 75 mg EC 7-14 9109 tablet by ity of tablet 00:00: mouth 2 (two) Medical times Branch daily with meals. diclofenac 2020-0 Yes [id number] 75mg Take 1 [facility] 75 mg EC 7-14 9109 tablet by ity of tablet 00:00: mouth (two) Medical times Branch daily with meals. diclofenac 2020-0 Yes [id number] 75mg Take 1 [facility] 75 mg EC 7-14 9109 tablet by ity of tablet 00:00: mouth (two) Medical times Branch daily with meals. diclofenac 2020-0 Yes [id number] 75mg Take 1 [facility] 75 mg EC 7-14 9109 tablet by ity of tablet 00:00: mouth (two) Medical times Branch daily with meals. amoxicillin 2020-0 Yes [id number] 500mg Take 1 [facility] 500 mg 6-28 capsule by ity of capsule 00:00: mouth (three) Medical times Branch daily. amoxicillin 2020-0 Yes [id number] 500mg Take 1 [facility] 500 mg 6-28 capsule by ity of capsule 00:00: mouth 3 (three) Medical times Branch daily. amoxicillin 2020-0 Yes [id number] 500mg Take 1 [facility] 500 mg 6-28 capsule by ity of capsule 00:00: mouth 3 (three) Medical times Branch daily. amoxicillin 2020-0 Yes [id number] 500mg Take 1 [facility] 500 mg 6-28 capsule by ity of capsule 00:00: mouth (three) Medical times Branch daily. amoxicillin 2020-0 Yes [id number] 500mg Take 1 [facility] 500 mg 6-28 capsule by ity of capsule 00:00: mouth (three) Medical times Branch daily. amoxicillin 2020-0 Yes [id number] 500mg Take 1 [facility] 500 mg 6-28 capsule by ity of capsule 00:00: mouth (three) Medical times Branch daily. amoxicillin 2020-0 Yes [id number] 500mg Take 1 [facility] 500 mg 6-28 capsule by ity of capsule 00:00: mouth (three) Medical times Branch daily. amoxicillin 2020-0 Yes [id number] 500mg Take 1 [facility] 500 mg 6-28 capsule by ity of capsule 00:00: mouth (three) Medical times Branch daily. amoxicillin 2020-0 Yes [id number] 500mg Take 1 [facility] 500 mg 6-28 capsule by ity of capsule 00:00: mouth (three) Medical times Branch daily. amoxicillin 2020-0 Yes [id number] 500mg Take 1 [facility] 500 mg 6-28 capsule by ity of capsule 00:00: mouth () Medical times Branch daily. amoxicillin 2020-0 Yes [id number] 500mg Take 1 [facility] 500 mg 6-28 capsule by ity of capsule 00:00: mouth (three) Medical times Branch daily. amoxicillin 2020-0 Yes [id number] 500mg Take 1 [facility] 500 mg 6-28 capsule by ity of capsule 00:00: mouth (three) Medical times Branch daily. amoxicillin 2020-0 Yes [id number] 500mg Take 1 [facility] 500 mg 6-28 capsule by ity of capsule 00:00: mouth (three) Medical times Branch daily. amoxicillin 2020-0 Yes [id number] 500mg Take 1 [facility] 500 mg 6-28 capsule by ity of capsule 00:00: mouth (three) Medical times Branch daily. amoxicillin 2020-0 Yes [id number] 500mg Take 1 [facility] 500 mg 6-28 capsule by ity of capsule 00:00: mouth 3 (three) Medical times Branch daily. amoxicillin 2020-0 Yes [id number] 500mg Take 1 [facility] 500 mg 6-28 capsule by ity of capsule 00:00: mouth 3 (three) Medical times Branch daily. amoxicillin 2020-0 Yes [id number] 500mg Take 1 [facility] 500 mg 6-28 capsule by ity of capsule 00:00: mouth (three) Medical times Branch daily. amoxicillin 2020-0 Yes [id number] 500mg Take 1 [facility] 500 mg 6-28 capsule by ity of capsule 00:00: mouth (three) Medical times Branch daily. amoxicillin 2020-0 Yes [id number] 500mg Take 1 [facility] 500 mg 6-28 capsule by ity of capsule 00:00: mouth (three) Medical times Branch daily. amoxicillin 2020-0 Yes [id number] 500mg Take 1 [facility] 500 mg 6-28 capsule by ity of capsule 00:00: mouth (three) Medical times Branch daily. amoxicillin 2020-0 Yes [id number] 500mg Take 1 [facility] 500 mg 6-28 capsule by ity of capsule 00:00: mouth (three) Medical times Branch daily. amoxicillin 2020-0 Yes [id number] 500mg Take 1 [facility] 500 mg 6-28 [...] daily with meals. mirabegron 2020-0 2020- No [id number] 25mg Take 1 Univers 25 mg 6-05 07-06 tablet by ity of tablet 00:00: 04:59 mouth [place] 00 :00 daily for Medical 30 days. Branch mirabegron 2020-0 2020- No [id number] 25mg Take 1 Univers 25 mg 6-05 07-06 tablet by ity of tablet 00:00: 04:59 mouth [place] 00 :00 daily for Medical 30 days. Branch mirabegron 2020-0 2020- No [id number] 25mg Take 1 Univers 25 mg 6-05 07-06 tablet by ity of tablet 00:00: 04:59 mouth [place] 00 :00 daily for Medical 30 days. Branch mirabegron 2020-0 2020- No [id number] 25mg Take 1 Univers 25 mg 6-05 07-06 tablet by ity of tablet 00:00: 04:59 mouth [place] 00 :00 daily for Medical 30 days. Branch mirabegron 2020-0 2020- No [id number] 25mg Take 1 Univers 25 mg 6-05 07-06 tablet by ity of tablet 00:00: 04:59 mouth [place] 00 :00 daily for Medical 30 days. Branch mirabegron 2020-0 2020- No [id number] 25mg Take 1 Univers 25 mg 6-05 07-06 tablet by ity of tablet 00:00: 04:59 mouth [place] 00 :00 daily for Medical 30 days. Branch diclofenac 2020-0 Yes 75mg Take 1 Unive rs 75 mg EC 4-13 tablet by ity of tablet 00:00: mouth [place] (two) Medical times Branch daily with meals. [...] 80 mg 19:00: 17:48 [place] 00 :00 [facility] Branch gentamicin 2019-0 2020- No 80mg 80 mg, IV U nivers injection 05-04 Piggyback, ity of 80 mg 19:00: 17:48 ONCE, 1 [place] 00 :00 dose, Fri [facility] 05/04/19 at [place] 1300, WINDY
Re ason for Anti-Infec tive: Surgical Prophylaxi s
Surgi ezekiel Prophylaxi s: Genitourin michelle
Dur ation of therapy: within 24 hours of surgery cephALEXin 2020-0 2020- No [id number] 500mg Take 2 Univers 250 mg 05-04- capsules ity of capsule 00:00: 05:59 by mouth [place] 00 :00 every 12 Medical (twelve) Branch hours for 3 days. cephALEXin 2020-0 2020- No [id number] 500mg Take 2 Univers 250 mg 05-04-03 capsules ity of capsule 00:00: 05:59 by mouth [place] 00 :00 every 12 Medical (twelve) Branch hours for 3 days. atorvastati 2020-0 Yes 20mg Take 20 mg Univers n 20 mg 2-20 by mouth ity of tablet 00:00: daily. [address] metoprolol 2020-0 Yes 25mg Take 25 [...] it y of mg tablet 00:00: (two) [place] 00 times Medical daily. Branch atorvastati 2020-0 Yes 20mg Take 20 mg Univers n 20 mg 2-20 by mouth ity of tablet 00:00: daily. Medical Branch metoprolol 2020-0 Yes 25mg Take 25 mg U nivers tartrate 25 2-20 by mouth 2 it y of mg tablet 00:00: (two) [place] 00 times Medical daily. Branch atorvastati 2020-0 Yes 20mg Take 20 mg Univers n 20 mg 2-20 by mouth ity of tablet 00:00: daily. Medical Branch metoprolol 2020-0 Yes 25mg Take 25 mg U nivers tartrate 25 2-20 by mouth 2 it y of mg tablet 00:00: (two) [place] 00 times Medical daily. Branch atorvastati 2020-0 Yes 20mg Take 20 mg Univers n 20 mg 2-20 by mouth ity of tablet 00:00: daily. [place] Medical Branch metoprolol 2020-0 Yes 25mg Take 25 mg U nivers tartrate 25 2-20 by mouth 2 it y of mg tablet 00:00: (two) [place] 00 times Medical daily. Branch atorvastati 2020-0 Yes 20mg Take 20 mg Univers n 20 mg 2-20 by mouth ity of tablet 00:00: daily. Medical Branch metoprolol 2020-0 Yes 25mg Take 25 mg U nivers tartrate 25 2-20 by mouth 2 it y of mg tablet 00:00: (two) [place] times Medical daily. Branch atorvastati 2020-0 Yes 20mg Take 20 mg Univers n 20 mg 2-20 by mouth ity of tablet 00:00: daily. Medical Branch metoprolol 2020-0 Yes 25mg Take 25 mg U nivers tartrate 25 2-20 by mouth 2 it y of mg tablet 00:00: (two) [place] 00 times Medical daily. Branch atorvastati 2020-0 Yes 20mg Take 20 mg Univers n 20 mg 2-20 by mouth ity of tablet 00:00: daily. [place] Medical Branch metoprolol 2020-0 Yes 25mg Take 25 mg U nivers tartrate 25 2-20 by mouth 2 it y of mg tablet 00:00: (two) [place] 00 times Medical daily. Branch atorvastati 2020-0 Yes 20mg Take 20 mg Univers n 20 mg 2-20 by mouth ity of tablet 00:00: daily. Medical Branch metoprolol 2020-0 Yes 25mg Take 25 mg U nivers tartrate 25 2-20 by mouth 2 it y of mg tablet 00:00: (two) [place] 00 times Medical daily. Branch atorvastati 2020-0 Yes 20mg Take 20 mg Univers n 20 mg 2-20 by mouth ity of tablet 00:00: daily. Medical Branch metoprolol 2020-0 Yes 25mg Take 25 mg U nivers tartrate 25 2-20 by mouth 2 it y of mg tablet 00:00: (two) [place] times Medical daily. Branch atorvastati 2020-0 Yes 20mg Take 20 mg Univers n 20 mg 2-20 by mouth ity of tablet 00:00: daily. Medical Branch metoprolol 2020-0 Yes 25mg Take 25 mg U nivers tartrate 25 2-20 by mouth 2 it y of mg tablet 00:00: (two) [place] times Medical daily. Branch atorvastati 2020-0 Yes 20mg Take 20 mg Univers n 20 mg 2-20 by mouth ity of tablet 00:00: daily. Medical Branch metoprolol 2020-0 Yes 25mg Take 25 mg U nivers tartrate 25 2-20 by mouth 2 it y of mg tablet 00:00: (two) [place] 00 times Medical daily. Branch atorvastati 2020-0 Yes 20mg Take 20 mg Univers n 20 mg 2-20 by mouth ity of tablet 00:00: daily. Medical Branch metoprolol 2020-0 Yes 25mg Take 25 mg U nivers tartrate 25 2-20 by mouth 2 it y of mg tablet 00:00: (two) [place] 00 times Medical daily. Branch atorvastati 2020-0 Yes 20mg Take 20 mg Univers n 20 mg 2-20 by mouth ity of tablet 00:00: daily. Medical Branch metoprolol 2020-0 Yes 25mg Take 25 mg U nivers tartrate 25 2-20 by mouth 2 it y of mg tablet 00:00: (two) [place] times Medical daily. Branch atorvastati 2020-0 Yes 20mg Take 20 mg Univers n 20 mg 2-20 by mouth ity of tablet 00:00: daily. Medical Branch metoprolol 2020-0 Yes 25mg Take 25 mg U nivers tartrate 25 2-20 by mouth 2 it y of mg tablet 00:00: (two) [place] 00 times Medical daily. Branch atorvastati 2020-0 Yes 20mg Take 20 mg Univers n 20 mg 2-20 by mouth ity of tablet 00:00: daily. Medical Branch metoprolol 2020-0 Yes 25mg Take 25 mg U nivers tartrate 25 2-20 by mouth 2 it y of mg tablet 00:00: (two) [place] 00 times Medical daily. Branch atorvastati 2020-0 Yes 20mg Take 20 mg Univers n 20 mg 2-20 by mouth ity of tablet 00:00: daily. Medical Branch metoprolol 2020-0 Yes 25mg Take 25 mg U nivers tartrate 25 2-20 by mouth 2 it y of mg tablet 00:00: (two) [place] times Medical daily. Branch atorvastati 2020-0 Yes 20mg Take 20 mg Univers n 20 mg 2-20 by mouth ity of tablet 00:00: daily. Medical Branch metoprolol 2020-0 Yes 25mg Take 25 mg U nivers tartrate 25 2-20 by mouth 2 it y of mg tablet 00:00: (two) [place] 00 times Medical daily. Branch atorvastati 2020-0 Yes 20mg Take 20 mg Univers n 20 mg 2-20 by mouth ity of tablet 00:00: daily. [place] Medical Branch metoprolol 2020-0 Yes 25mg Take 25 mg U nivers tartrate 25 2-20 by mouth 2 it y of mg tablet 00:00: (two) [place] 00 times Medical daily. Branch atorvastati 2020-0 Yes 20mg Take 20 mg Univers n 20 mg 2-20 by mouth ity of tablet 00:00: daily. Medical Branch metoprolol 2020-0 Yes 25mg Take 25 mg U nivers tartrate 25 2-20 by mouth 2 it y of mg tablet 00:00: (two) [place] 00 times Medical daily. Branch atorvastati 2020-0 Yes 20mg Take 20 mg Univers n 20 mg 2-20 by mouth ity of tablet 00:00: daily. Medical Branch metoprolol 2020-0 Yes 25mg Take 25 mg U nivers tartrate 25 2-20 by mouth 2 it y of mg tablet 00:00: (two) [place] 00 times Medical daily. Branch atorvastati 2020-0 Yes 20mg Take 20 mg Univers n 20 mg 2-20 by mouth ity of tablet 00:00: daily. Medical Branch metoprolol 2020-0 Yes 25mg Take 25 mg U nivers tartrate 25 2-20 by mouth 2 it y of mg tablet 00:00: (two) [place] 00 times Medical daily. Branch atorvastati 2020-0 Yes 20mg Take 20 mg Univers n 20 mg 2-20 by mouth ity of tablet 00:00: daily. Medical Branch metoprolol 2020-0 Yes 25mg Take 25 mg U nivers tartrate 25 2-20 by mouth 2 it y of mg tablet 00:00: (two) [place] 00 times Medical daily. Branch atorvastati 2020-0 Yes 20mg Take 20 mg Univers n 20 mg 2-20 by mouth ity of tablet 00:00: daily. [place] Medical Branch metoprolol 2020-0 Yes 25mg Take 25 mg U nivers tartrate 25 2-20 by mouth 2 it y of mg tablet 00:00: (two) [place] 00 times Medical daily. Branch atorvastati 2020-0 Yes 20mg Take 20 mg Univers n 20 mg 2-20 by mouth ity of tablet 00:00: daily. [place] Medical Branch metoprolol 2020-0 Yes 25mg Take 25 mg U nivers tartrate 25 2-20 by mouth 2 it y of mg tablet 00:00: (two) [place] times Medical daily. Branch atorvastati 2020-0 Yes 20mg Take 20 mg Univers n 20 mg 2-20 by mouth ity of tablet 00:00: daily. Medical Branch metoprolol 2020-0 Yes 25mg Take 25 mg U nivers tartrate 25 2-20 by mouth 2 it y of mg tablet 00:00: (two) [place] 00 times Medical daily. Branch atorvastati 2020-0 Yes 20mg Take 20 mg Univers n 20 mg 2-20 by mouth ity of tablet 00:00: daily. [place] Medical Branch metoprolol 2020-0 Yes 25mg Take 25 mg U nivers tartrate 25 2-20 by mouth 2 it y of mg tablet 00:00: (two) [place] 00 times Medical daily. Branch atorvastati 2020-0 Yes 20mg Take 20 mg Univers n 20 mg 2-20 by mouth ity of tablet 00:00: daily. Medical Branch metoprolol 2020-0 Yes 25mg Take 25 mg U nivers tartrate 25 2-20 by mouth 2 it y of mg tablet 00:00: (two) [place] 00 times Medical daily. Branch atorvastati 2020-0 Yes 20mg Take 20 mg Univers n 20 mg 2-20 by mouth ity of tablet 00:00: daily. Medical Branch metoprolol 2020-0 Yes 25mg Take 25 mg U nivers tartrate 25 2-20 by mouth 2 it y of mg tablet 00:00: (two) [place] 00 times Medical daily. Branch atorvastati 2020-0 Yes 20mg Take 20 mg Univers n 20 mg 2-20 by mouth ity of tablet 00:00: daily. Medical Branch metoprolol 2020-0 Yes 25mg Take 25 mg U nivers tartrate 25 2-20 by mouth 2 it y of mg tablet 00:00: (two) [place] times Medical daily. Branch atorvastati 2020-0 Yes 20mg Take 20 mg Univers n 20 mg 2-20 by mouth ity of tablet 00:00: daily. Medical Branch metoprolol 2020-0 Yes 25mg Take 25 mg U nivers tartrate 25 2-20 by mouth 2 it y of mg tablet 00:00: (two) [place] 00 times Medical daily. Branch atorvastati 2020-0 Yes 20mg Take 20 mg Univers n 20 mg 2-20 by mouth ity of tablet 00:00: daily. Medical Branch metoprolol 2020-0 Yes 25mg Take 25 mg U nivers tartrate 25 2-20 by mouth 2 it y of mg tablet 00:00: (two) [place] 00 times Medical daily. Branch atorvastati 2020-0 Yes 20mg Take 20 mg Univers n 20 mg 2-20 by mouth ity of tablet 00:00: daily. Medical Branch metoprolol 2020-0 Yes 25mg Take 25 mg U nivers tartrate 25 2-20 by mouth 2 it y of mg tablet 00:00: (two) [place] 00 times Medical daily. Branch atorvastati 2020-0 Yes 20mg Take 20 mg Univers n 20 mg 2-20 by mouth ity of tablet 00:00: daily. Medical Branch metoprolol 2020-0 Yes 25mg Take 25 mg U nivers tartrate 25 2-20 by mouth 2 it y of mg tablet 00:00: (two) [place] 00 times Medical daily. Branch atorvastati 2020-0 Yes 20mg Take 20 mg Univers n 20 mg 2-20 by mouth ity of tablet 00:00: daily. Medical Branch metoprolol 2020-0 Yes 25mg Take 25 mg U nivers tartrate 25 2-20 by mouth 2 it y of mg tablet 00:00: (two) [place] 00 times Medical daily. Branch atorvastati 2020-0 Yes 20mg Take 20 mg Univers n 20 mg 2-20 by mouth ity of tablet 00:00: daily. Medical Branch metoprolol 2020-0 Yes 25mg Take 25 mg U nivers tartrate 25 2-20 by mouth 2 it y of mg tablet 00:00: (two) [place] times Medical daily. Branch atorvastati 2020-0 Yes 20mg Take 20 mg Univers n 20 mg 2-20 by mouth ity of tablet 00:00: daily. Medical Branch metoprolol 2020-0 Yes 25mg Take 25 mg U nivers tartrate 25 2-20 by mouth 2 it y of mg tablet 00:00: (two) [place] 00 times Medical daily. Branch atorvastati 2020-0 Yes 20mg Take 20 mg Univers n 20 mg 2-20 by mouth ity of tablet 00:00: daily. Medical Branch metoprolol 2020-0 Yes 25mg Take 25 mg U nivers tartrate 25 2-20 by mouth 2 it y of mg tablet 00:00: (two) [place] 00 times Medical daily. Branch atorvastati 2020-0 Yes 20mg Take 20 mg Univers n 20 mg 2-20 by mouth ity of tablet 00:00: daily. Medical Branch metoprolol 2020-0 Yes 25mg Take 25 mg U nivers tartrate 25 2-20 by mouth 2 it y of mg tablet 00:00: (two) [place] 00 times Medical daily. Branch atorvastati 2020-0 Yes 20mg Take 20 mg Univers n 20 mg 2-20 by mouth ity of tablet 00:00: daily. Medical Branch metoprolol 2020-0 Yes 25mg Take 25 mg U nivers tartrate 25 2-20 by mouth 2 it y of mg tablet 00:00: (two) [place] times Medical daily. Branch atorvastati 2020-0 Yes 20mg Take 20 mg Univers n 20 mg 2-20 by mouth ity of tablet 00:00: daily. [place] [facility] metoprolol 2020-0 Yes 25mg Take 25 mg U nivers tartrate 25 2-20 by mouth 2 it y of mg tablet 00:00: (two) [place] times Medical daily. Branch tamsulosin 2020-0 Yes Take by Uni vers 0.4 mg 24 2-14 mouth ity of hr capsule 17:20: daily. [place] [address] Medical Branch om 2020-0 Yes Take by Univers 3/E/linol/a 2-14 mouth. ity of la/oleic/gl 17:20: [place] a/lip 21 Medical (OMEGA Branch 3-6-9 ORAL) tamsulosin 2020-0 Yes Take by Uni vers 0.4 mg 24 2-14 mouth ity of hr capsule 17:20: daily. [place] [address] Medical Branch om 2020-0 Yes Take by Univers 3/E/linol/a 2-14 mouth. ity of la/oleic/gl 17:20: [place] a/lip 21 Medical (OMEGA Branch 3-6-9 ORAL) tamsulosin 2020-0 Yes Take by Uni vers 0.4 mg 24 2-14 mouth ity of hr capsule 17:20: daily. [place] [address] Medical Branch om 2020-0 Yes Take by Univers 3/E/linol/a 2-14 mouth. ity of la/oleic/gl 17:20: [place] a/lip 21 Medical (OMEGA Branch 3-6-9 ORAL) tamsulosin 2020-0 Yes Take by Uni vers 0.4 mg 24 2-14 mouth ity of hr capsule 17:20: daily. [place] [address] Medical Branch om 2020-0 Yes Take by Univers 3/E/linol/a 2-14 mouth. ity of la/oleic/gl 17:20: [place] a/lip 21 Medical (OMEGA Branch 3-6-9 ORAL) tamsulosin 2020-0 Yes Take by Uni vers 0.4 mg 24 2-14 mouth ity of hr capsule 17:20: daily. [place] [address] Medical Branch om 2020-0 Yes Take by Univers 3/E/linol/a 2-14 mouth. ity of la/oleic/gl 17:20: [place] a/lip 21 Medical (OMEGA Branch 3-6-9 ORAL) tamsulosin 2020-0 Yes Take by Uni vers 0.4 mg 24 2-14 mouth ity of hr capsule 17:20: daily. [place] [address] Medical Branch om 2020-0 Yes Take by Univers 3/E/linol/a 2-14 mouth. ity of la/oleic/gl 17:20: [place] a/lip 21 Medical (OMEGA Branch 3-6-9 ORAL) tamsulosin 2020-0 Yes Take by Uni vers 0.4 mg 24 2-14 mouth ity of hr capsule 17:20: daily. [place] [address] Medical Branch om 2020-0 Yes Take by Univers 3/E/linol/a 2-14 mouth. ity of la/oleic/gl 17:20: [place] a/lip 21 Medical (OMEGA Branch 3-6-9 ORAL) tamsulosin 2020-0 Yes Take by Uni vers 0.4 mg 24 2-14 mouth ity of hr capsule 17:20: daily. [place] [address] Medical Branch om 2020-0 Yes Take by Univers 3/E/linol/a 2-14 mouth. ity of la/oleic/gl 17:20: [place] a/lip 21 Medical (OMEGA Branch 3-6-9 ORAL) tamsulosin 2020-0 Yes Take by Uni vers 0.4 mg 24 2-14 mouth ity of hr capsule 17:20: daily. [place] [address] Medical Branch om 2020-0 Yes Take by Univers 3/E/linol/a 2-14 mouth. ity of la/oleic/gl 17:20: [place] a/lip 21 Medical (OMEGA Branch 3-6-9 ORAL) tamsulosin 2020-0 Yes Take by Uni vers 0.4 mg 24 2-14 mouth ity of hr capsule 17:20: daily. [place] [address] Medical Branch om 2020-0 Yes Take by Univers 3/E/linol/a 2-14 mouth. ity of la/oleic/gl 17:20: [place] a/lip 21 Medical (OMEGA Branch 3-6-9 ORAL) tamsulosin 2020-0 Yes Take by Uni vers 0.4 mg 24 2-14 mouth ity of hr capsule 17:20: daily. [place] [address] Medical Branch om 2020-0 Yes Take by Univers 3/E/linol/a 2-14 mouth. ity of la/oleic/gl 17:20: [place] a/lip 21 Medical (OMEGA Branch 3-6-9 ORAL) tamsulosin 2020-0 Yes Take by Uni vers 0.4 mg 24 2-14 mouth ity of hr capsule 17:20: daily. [address] om 2020-0 Yes Take by Univers 3/E/linol/a 2-14 mouth. ity of la/oleic/gl 17:20: [place] a/lip 21 Medical (OMEGA Branch 3-6-9 ORAL) tamsulosin 2020-0 Yes Take by Uni vers 0.4 mg 24 2-14 mouth ity of hr capsule 17:20: daily. [address] om 2020-0 Yes Take by Univers 3/E/linol/a 2-14 mouth. ity of la/oleic/gl 17:20: [place] a/lip 21 Medical (OMEGA Branch 3-6-9 ORAL) tamsulosin 2020-0 Yes Take by Uni vers 0.4 mg 24 2-14 mouth ity of hr capsule 17:20: daily. [address] om 2020-0 Yes Take by Univers 3/E/linol/a 2-14 mouth. ity of la/oleic/gl 17:20: [place] a/lip 21 Medical (OMEGA Branch 3-6-9 ORAL) tamsulosin 2020-0 Yes Take by Uni vers 0.4 mg 24 2-14 mouth ity of hr capsule 17:20: daily. [address] om 2020-0 Yes Take by Univers 3/E/linol/a 2-14 mouth. ity of la/oleic/gl 17:20: [place] a/lip 21 Medical (OMEGA Branch 3-6-9 ORAL) tamsulosin 2020-0 Yes Take by Uni vers 0.4 mg 24 2-14 mouth ity of hr capsule 17:20: daily. [address] om 2020-0 Yes Take by Univers 3/E/linol/a 2-14 mouth. ity of la/oleic/gl 17:20: [place] a/lip 21 Medical (OMEGA Branch 3-6-9 ORAL) [...] mouth ity of hr capsule 17:20: daily. [place] [address] Medical Branch om 2020-0 Yes Take by Univers 3/E/linol/a 2-14 mouth. ity of la/oleic/gl 17:20: [place] a/lip 21 Medical (OMEGA Branch 3-6-9 ORAL) tamsulosin 2020-0 Yes Take by Uni vers 0.4 mg 24 2-14 mouth ity of hr capsule 17:20: daily. [place] [address] Medical Branch om 2020-0 Yes Take by Univers 3/E/linol/a 2-14 mouth. ity of la/oleic/gl 17:20: [place] a/lip 21 Medical (OMEGA Branch 3-6-9 ORAL) tamsulosin 2020-0 Yes Take by Uni vers 0.4 mg 24 2-14 mouth ity of hr capsule 17:20: daily. [place] [address] Medical Branch om 2020-0 Yes Take by Univers 3/E/linol/a 2-14 mouth. ity of la/oleic/gl 17:20: [place] a/lip 21 Medical (OMEGA Branch 3-6-9 ORAL) tamsulosin 2020-0 Yes Take by Uni vers 0.4 mg 24 2-14 mouth ity of hr capsule 17:20: daily. [place] [address] Medical Branch om 2020-0 Yes Take by Univers 3/E/linol/a 2-14 mouth. ity of la/oleic/gl 17:20: [place] a/lip 21 Medical (OMEGA Branch 3-6-9 ORAL) tamsulosin 2020-0 Yes Take by Uni vers 0.4 mg 24 2-14 mouth ity of hr capsule 17:20: daily. [place] [address] Medical Branch om 2020-0 Yes Take by Univers 3/E/linol/a 2-14 mouth. ity of la/oleic/gl 17:20: [place] a/lip 21 Medical (OMEGA Branch 3-6-9 ORAL) tamsulosin 2020-0 Yes Take by Uni vers 0.4 mg 24 2-14 mouth ity of hr capsule 17:20: daily. [place] [address] Medical Branch om 2020-0 Yes Take by Univers 3/E/linol/a 2-14 mouth. ity of la/oleic/gl 17:20: [place] a/lip 21 Medical (OMEGA Branch 3-6-9 ORAL) tamsulosin 2020-0 Yes Take by Uni vers 0.4 mg 24 2-14 mouth ity of hr capsule 17:20: daily. [place] [address] Medical Branch om 2020-0 Yes Take by Univers 3/E/linol/a 2-14 mouth. ity of la/oleic/gl 17:20: [place] a/lip 21 Medical (OMEGA Branch 3-6-9 ORAL) tamsulosin 2020-0 Yes Take by Uni vers 0.4 mg 24 2-14 mouth ity of hr capsule 17:20: daily. [place] [address] Medical Branch om 2020-0 Yes Take by Univers 3/E/linol/a 2-14 mouth. ity of la/oleic/gl 17:20: [place] a/lip 21 Medical (OMEGA Branch 3-6-9 ORAL) tamsulosin 2020-0 Yes Take by Uni vers 0.4 mg 24 2-14 mouth ity of hr capsule 17:20: daily. [place] [address] Medical Branch om 2020-0 Yes Take by Univers 3/E/linol/a 2-14 mouth. ity of la/oleic/gl 17:20: [place] a/lip 21 Medical (OMEGA Branch 3-6-9 ORAL) tamsulosin 2020-0 Yes Take by Uni vers 0.4 mg 24 2-14 mouth ity of hr capsule 17:20: daily. [place] [address] Medical Branch om 2020-0 Yes Take by Univers 3/E/linol/a 2-14 mouth. ity of la/oleic/gl 17:20: [place] a/lip 21 Medical (OMEGA Branch 3-6-9 ORAL) tamsulosin 2020-0 Yes Take by Uni vers 0.4 mg 24 2-14 mouth ity of hr capsule 17:20: daily. [place] [address] Medical Branch om 2020-0 Yes Take by Univers 3/E/linol/a 2-14 mouth. ity of la/oleic/gl 17:20: [place] a/lip 21 Medical (OMEGA Branch 3-6-9 ORAL) tamsulosin 2020-0 Yes Take by Uni vers 0.4 mg 24 2-14 mouth ity of hr capsule 17:20: daily. [place] [address] Medical Branch om 2020-0 Yes Take by Univers 3/E/linol/a 2-14 mouth. ity of la/oleic/gl 17:20: [place] a/lip 21 Medical (OMEGA Branch 3-6-9 ORAL) tamsulosin 2020-0 Yes Take by Uni vers 0.4 mg 24 2-14 mouth ity of hr capsule 17:20: daily. [place] [address] Medical Branch tamsulosin 2020-0 Yes Take by Uni vers 0.4 mg 24 2-14 mouth ity of hr capsule 17:20: daily. [place] [address] Medical Branch om 2020-0 Yes Take by Univers 3/E/linol/a 2-14 mouth. ity of la/oleic/gl 17:20: [place] a/lip 21 Medical (OMEGA Branch 3-6-9 ORAL) om 2020-0 Yes Take by Univers 3/E/linol/a 2-14 mouth. ity of la/oleic/gl 17:20: [place] a/lip 21 Medical (OMEGA Branch 3-6-9 ORAL) tamsulosin 2020-0 Yes Take by Uni vers 0.4 mg 24 2-14 mouth ity of hr capsule 17:20: daily. [place] [address] Medical Branch om 2020-0 Yes Take by Univers 3/E/linol/a 2-14 mouth. ity of la/oleic/gl 17:20: [place] a/lip 21 Medical (OMEGA Branch 3-6-9 ORAL) tamsulosin 2020-0 Yes Take by Uni vers 0.4 mg 24 2-14 mouth ity of hr capsule 17:20: daily. [place] [address] Medical Branch om 2020-0 Yes Take by Univers 3/E/linol/a 2-14 mouth. ity of la/oleic/gl 17:20: [place] a/lip 21 Medical (OMEGA Branch 3-6-9 ORAL) tamsulosin 2020-0 Yes Take by Uni vers 0.4 mg 24 2-14 mouth ity of hr capsule 17:20: daily. [place] [address] Medical Branch om 2020-0 Yes Take by Univers 3/E/linol/a 2-14 mouth. ity of la/oleic/gl 17:20: [place] a/lip 21 Medical (OMEGA Branch 3-6-9 ORAL) tamsulosin 2020-0 Yes Take by Uni vers 0.4 mg 24 2-14 mouth ity of hr capsule 17:20: daily. [place] [address] Medical Branch om 2020-0 Yes Take by Univers 3/E/linol/a 2-14 mouth. ity of la/oleic/gl 17:20: [place] a/lip 21 Medical (OMEGA Branch 3-6-9 ORAL) tamsulosin 2020-0 Yes Take by Uni vers 0.4 mg 24 2-14 mouth ity of hr capsule 17:20: daily. [place] [address] Medical Branch om 2020-0 Yes Take by Univers 3/E/linol/a 2-14 mouth. ity of la/oleic/gl 17:20: [place] a/lip 21 Medical (OMEGA Branch 3-6-9 ORAL) tamsulosin 2020-0 Yes Take by Uni vers 0.4 mg 24 2-14 mouth ity of hr capsule 17:20: daily. [place] [address] Medical Branch om 2020-0 Yes Take by Univers 3/E/linol/a 2-14 mouth. ity of la/oleic/gl 17:20: [place] a/lip 21 Medical (OMEGA Branch 3-6-9 ORAL) tamsulosin 2020-0 Yes Take by Uni vers 0.4 mg 24 2-14 mouth ity of hr capsule 17:20: daily. [place] [address] Medical Branch om 2020-0 Yes Take by Univers 3/E/linol/a 2-14 mouth. ity of la/oleic/gl 17:20: [place] a/lip 21 Medical (OMEGA Branch 3-6-9 ORAL) tamsulosin 2020-0 Yes Take by Uni vers 0.4 mg 24 2-14 mouth ity of hr capsule 17:20: daily. [place] [address] Medical Branch om 2020-0 Yes Take by Univers 3/E/linol/a 2-14 mouth. ity of la/oleic/gl 17:20: [place] a/lip 21 Medical (OMEGA Branch 3-6-9 ORAL) tamsulosin 2020-0 Yes Take by Uni vers 0.4 mg 24 2-14 mouth ity of hr capsule 17:20: daily. [place] [address] Medical Branch om 2020-0 Yes Take by Univers 3/E/linol/a 2-14 mouth. ity of la/oleic/gl 17:20: [place] a/lip 21 Medical (OMEGA Branch 3-6-9 ORAL) tamsulosin 2020-0 Yes Take by Uni vers 0.4 mg 24 2-14 mouth ity of hr capsule 17:20: daily. [place] [address] Medical Branch om 2020-0 Yes Take by Univers 3/E/linol/a 2-14 mouth. ity of la/oleic/gl 17:20: [place] a/lip 21 Medical (OMEGA Branch 3-6-9 ORAL) tamsulosin 2020-0 Yes Take by Uni vers 0.4 mg 24 2-14 mouth ity of hr capsule 17:20: daily. [place] [address] Medical Branch om 2020-0 Yes Take by Univers 3/E/linol/a 2-14 mouth. ity of la/oleic/gl 17:20: [place] a/lip 21 Medical (OMEGA Branch 3-6-9 ORAL) tamsulosin 2020-0 Yes Take by Uni vers 0.4 mg 24 2-14 mouth ity of hr capsule 11:20: daily. [place] [address] Medical Branch om 2020-0 Yes Take by Univers 3/E/linol/a 2-14 mouth. ity of la/oleic/gl 11:20: [place] alip 21 Medical (OMEGA Branch 3-6-9 ORAL) tamsulosin 2020-0 Yes Take by Uni vers 0.4 mg 24 2-14 mouth ity of hr capsule 11:20: daily. [address] Branch om 2020-0 Yes Take by Univers 3/E/linol/a 2-14 mouth. ity of la/oleic/gl 11:20: [place] a/lip 21 Medical (OMEGA Branch 3-6-9 ORAL) diclofenac 2018-03 2020- No [id number] 75mg Take 1 Univers 75 mg EC 05-03 9109 tablet by ity o f tablet 00:00: 05:59 mouth 2 [place] 00 :00 (two) Medical times [place] daily with meals for 60 days. diclofenac 2018-03 2020- No [id number] 75mg Take 1 Univers 75 mg EC 05-03- 9109 tablet by ity o f tablet 00:00: 05:59 mouth 2 [place] 00 :00 (two) Medical times Branch daily with meals for 60 days. diclofenac 2018-03 2020- No [id number] 75mg Take 1 Univers 75 mg EC 05-03 9109 tablet by ity o f tablet 00:00: 05:59 mouth 2 [place] 00 :00 (two) Medical times Branch daily with meals for 60 days. diclofenac 2018-03 2020- No [id number] 75mg Take 1 Univers 75 mg EC 205-02 9109 tablet by ity o f tablet 00:00: 05:59 mouth 2 [place] 00 :00 (two) Medical times Branch daily with meals for 60 days. diclofenac Yes [id number] 75mg Take 1 Univers 75 mg EC 8-28 9109 tablet by ity of tablet 00:00: mouth 2 [place] 00 (two) Medical times Branch daily with meals. diclofenac Yes [id number] 75mg Take 1 Univers 75 mg EC 8- 9109 tablet by ity of tablet 00:00: mouth 2 [place] 00 (two) Medical times Branch daily with meals. diclofenac Yes [id number] 75mg Take 1 Univers 75 mg EC 8- 9109 tablet by ity of tablet 00:00: mouth 2 [place] 00 (two) Medical times Branch daily with meals. diclofenac 2019- No [id number] 75mg Take 1 Univers 75 mg EC 8-11-01 9109 tablet by ity o f tablet 00:00: 00:00 mouth 2 [place] 00 :00 (two) Medical times Branch daily with meals. predniSONE Yes TAKE 1 Unive rs 10 mg 7-19 TABLET BY ity of tablet 00:00: MOUTH [place] 00 TWICE Medical DAILY FOR Branch 5 DAYS predniSONE Yes TAKE 1 Unive rs 10 mg 7-19 TABLET BY ity of tablet 00:00: MOUTH [place] 00 TWICE Medical DAILY FOR Branch 5 DAYS amoxicillin Yes TAKE 1 Univ ers -clavulanat 7-19 TABLET BY ity of e 875-125 00:00: MOUTH [place] mg per 00 EVERY 12 Medical tablet HOURS FOR Branch 7 DAYS predniSONE Yes TAKE 1 Unive rs 10 mg 7-19 TABLET BY ity of tablet 00:00: MOUTH [place] 00 TWICE Medical DAILY FOR Branch 5 DAYS predniSONE 2019- Yes TAKE 1 Unive rs 10 mg 7-19 TABLET BY ity of tablet 00:00: MOUTH [place] 00 TWICE Medical DAILY FOR Branch 5 DAYS predniSONE 2019- Yes TAKE 1 Unive rs 10 mg 7-19 TABLET BY ity of tablet 00:00: MOUTH [place] 00 TWICE Medical DAILY FOR Branch 5 [...] Branch 28 DAYS atorvastati atorvastati No atorvastat [facility] n 20 mg n 20 mg [...] route. hydrocodone hydrocodone No 1 Q4H hydrocmiguel [facility] 10 10 e 10 Family mg-acetamin mg-acetamin mg-acetami Practic ophen 325 ophen 325 nophen 325 e mg tablet mg tablet mg tablet Take 1 Take 1 Take 1 tablet tablet tablet every 4 every 4 every 4 hours by hours by hours by oral route. oral route. oral route. [facility] mg-acetamin mg-acetamin mg-acetami Practic ophen 325 ophen 325 nophen 325 e mg tablet mg tablet mg tablet TAKE 1 TAKE 1 TAKE 1 TABLET BY TABLET BY TABLET BY MOUTH THREE MOUTH THREE MOUTH TIMES DAILY TIMES DAILY THREE TIMES DAILY metoprolol metoprolol No metoprolol [facility] tartrate 25 tartrate 25 tartrate Family mg tablet mg tablet 25 mg Prac tic TAKE 1 TAKE 1 tablet e TABLET BY TABLET BY TAKE 1 MOUTH TWICE MOUTH TWICE TABLET BY DAILY DAILY MOUTH TWICE DAILY Myrbetriq Myrbetriq No Myrbetriq [facility] 25 mg 25 mg 25 mg [...] by oral route. Pneumovax-2 Pneumovax-2 No Pneumovax- [facility] 3 25 3 25 23 25 Family mcg/0.5 mL mcg/0.5 mL mcg/0.5 mL Practic injection injection injection e syringe syringe syringe PHARMACIST PHARMACIST PHARMACIST ADMINISTERE ADMINISTERE ADMINISTER D D ED IMMUNIZATIO IMMUNIZATIO IMMUNIZATI N N ON ADMINISTERE ADMINISTERE ADMINISTER D AT TIME D AT TIME ED AT TIME OF OF OF DISPENSING DISPENSING DISPENSING prednisone prednisone No prednisone [facility] 5 mg tablet 5 mg tablet [...] DISPENSING DISPENSING DISPENSING tamsulosin tamsulosin No tamsulosin [facility] 0.4 mg 0.4 mg 0.4 mg [...] DAILY DAILY No known No Univers medications [facility] No known No Univers medications [facility] Immunizations Ordered Immunization Filled Immunization Date Status Commen ts Source Name Name pneumococcal [facility] 2019-03-31 [facility] polys[facility] PPV23 00:00:00 Practice Tdap Tdap 2019-03-07 Completed [facility] Family 00:00:00 Practice Vital Signs Vital Name Observation Time Observation Value Comments Source BP Diastolic 2020-03-10 00:00:00 68 mm[Hg] [facility] Height 2020-03-10 00:00:00 68 [in_i] [facility] BMI (Body Mass 2020-03-10 00:00:00 27.4 kg/m2 [facility] BP Systolic 2020-03-10 00:00:00 126 mm[Hg] [facility] Body Weight 2020-03-10 00:00:00 180 [lb_av] [facility] WEIGHT 2020-01-03 04:20:00 81.194 kg [...] 19:40:00 150 mm[Hg] Univer sity of pressure [facility] Diastolic blood 2019-11-07 19:40:00 74 mm[Hg] Unive rsity of pressure [facility] Heart rate 2019-11-07 19:40:00 76 /min Universi [place] [facility] Body temperature 2019-11-07 19:40:00 36.44 [facility] 2019-11-07 19:40:00 18 /[facility] weight 2019-11-07 19:40:00 81.647 kg Universi ty of [place] [facility] BMI 2019-11-07 19:40:00 25.83 kg/m2 [facility]i ty [facility] [place] [facility] Systolic blood 2019-11-07 19:40:00 150 mm[Hg] Univer sity of pressure [place] [facility] Diastolic blood 2019-11-07 19:40:00 74 mm[Hg] Unive rsity of pressure [place] [facility] Heart rate 2019-11-07 19:40:00 76 /min Universi ty of [place] [facility] Body temperature 2019-11-07 19:40:00 36.44 Natalie Univ ersity of [place] [facility] Respiratory rate 2019-11-07 19:40:00 18 /min Univ ersity of [place] [facility] Body weight 2019-11-07 19:40:00 81.647 kg Universi ty [facility] [place] [facility] BMI 2019-11-07 19:40:00 25.83 kg/m2 [facility]i ty [facility] [place] [facility] Respiratory rate 2019-09-24 20:24:00 18 /min Univ ersity of [place] [facility] Body weight 2019-09-24 20:24:00 82.373 kg Universi ty of [place] [facility] BMI 2019-09-24 20:24:00 26.06 kg/m2 [facility]i ty [facility] [place] [facility] Systolic blood 2019-09-24 20:24:00 155 mm[Hg] Univer sity of pressure [place] [facility] Diastolic blood 2019-09-24 20:24:00 76 mm[Hg] Unive rsity of pressure [place] [facility] Heart rate 2019-09-24 20:24:00 63 /min Universi ty of [place] [facility] Body temperature 2019-09-24 20:24:00 36.11 Natalie Univ ersity of [place] [facility] Respiratory rate 2019-09-24 20:24:00 18 /min Univ ersity of [place] [facility] Body weight 2019-09-24 20:24:00 82.373 kg Universi ty [facility] [place] [facility] BMI 2019-09-24 20:24:00 26.06 kg/m2 [facility]i ty [facility] [place] [facility] Systolic blood 2019-09-24 20:24:00 155 mm[Hg] Univer sity of pressure [place] [facility] Diastolic blood 2019-09-24 20:24:00 76 mm[Hg] Unive rsity of pressure [place] [facility] Heart rate 2019-09-24 20:24:00 63 /min Universi ty of [facility] Body temperature 2019-09-24 20:24:00 36.11 Natalie Univ ersity of [facility] Systolic blood 2019-09-21 20:41:00 149 mm[Hg] Univer sity of pressure [facility] Diastolic blood 2019-09-21 20:41:00 79 mm[Hg] Unive rsity of pressure [facility] Heart rate 2019-09-21 20:41:00 64 /min Universi ty of [facility] Body temperature 2019-09-21 20:41:00 35.78 Natalie Univ ersity of [facility] Branch Respiratory rate 2019-09-21 20:41:00 18 /min Univ ersity of [facility] Body weight 2019-09-21 20:41:00 81.829 kg Universi ty of [facility] BMI 2019-09-21 20:41:00 25.88 kg/m2 Universi ty of [facility] Systolic blood 2019-09-02 11:05:00 188 mm[Hg] Univer sity of pressure [facility] Diastolic blood 2019-09-02 11:05:00 85 mm[Hg] Unive rsity of pressure [facility] Heart rate 2019-09-02 11:05:00 84 /min Universi ty of [facility] Body temperature 2019-09-02 11:05:00 36.89 Natalie Univ ersity of [facility] Respiratory rate 2019-09-02 11:05:00 16 /min Univ ersity of [facility] Body height 2019-09-02 11:05:00 177.8 cm Universi ty of [facility] Body weight 2019-09-02 11:05:00 79.379 kg Universi ty of [facility] BMI 2019-09-02 11:05:00 25.11 kg/m2 Universi ty of [facility] Oxygen saturation in 2019-09-02 11:05:00 99 /min University of Arterial blood by [facility] Pulse oximetry Branch Body temperature 2019-08-10 20:51:00 36.61 Natalie Univ ersity of [facility] Respiratory rate 2019-08-10 20:51:00 22 /min Univ ersity of [facility] Body weight 2019-08-10 20:51:00 80.797 kg Universi ty of [facility] BMI 2019-08-10 20:51:00 27.08 kg/m2 Universi ty of [place] [facility] Oxygen saturation in 2019-08-10 20:51:00 96 /min University of Arterial blood by [facility] Pulse oximetry Branch Systolic blood 2019-07-09 15:45:00 131 mm[Hg] Univer sity of pressure [place] [facility] Diastolic blood 2019-07-09 15:45:00 69 mm[Hg] Unive rsity of pressure [place] [facility] Heart rate 2019-07-09 15:45:00 49 /min Universi ty of [place] [facility] Body temperature 2019-07-09 15:45:00 37 Natalie Univ ersity of [place] [facility] Respiratory rate 2019-07-09 15:45:00 20 /min Univ ersity of [place] [facility] Body height 2019-07-09 15:45:00 172.7 cm Universi ty [facility] [place] [facility] Body weight 2019-07-09 15:45:00 82.101 kg Universi ty [facility] [place] [facility] BMI 2019-07-09 15:45:00 27.52 kg/m2 [facility] ty [facility] [place] [facility] Oxygen saturation in 2019-07-09 15:45:00 98 /min University of Arterial blood by [facility] Pulse oximetry Branch Systolic blood 2019-05-24 18:10:00 132 mm[Hg] Univer sity of pressure [place] [facility] Diastolic blood 2019-05-24 18:10:00 61 mm[Hg] Unive rsity of pressure [place] [facility] Heart rate 2019-05-24 18:10:00 50 /min Universi ty of [place] [facility] Body temperature 2019-05-24 18:10:00 36.56 Natalie Univ ersity of [place] [facility] Respiratory rate 2019-05-24 18:10:00 18 /min Univ ersity of [place] [facility] Body weight 2019-05-24 18:10:00 82.101 kg Universi ty [facility] [place] [facility] BMI 2019-05-24 18:10:00 27.52 kg/m2 [facility] [place] [facility] Body temperature 2019-05-04 17:26:00 36.83 Natalie Univ ersity of [place] [facility] Respiratory rate 2019-05-04 17:26:00 20 /min Univ ersity of [place] [facility] Body height 2019-05-04 17:26:00 172.7 cm [facility]i ty [facility] [place] [facility] Body weight 2019-05-04 17:26:00 79.379 kg [facility]i ty [facility] [place] [facility] BMI 2019-05-04 17:26:00 26.61 kg/m2 [facility] ty [facility] [place] [facility] Oxygen saturation in 2019-05-04 17:26:00 98 /min University of Arterial blood by [facility] Pulse oximetry Branch Systolic blood 2019-05-04 17:26:00 139 mm[Hg] Univer sity of pressure [place] [facility] Diastolic blood 2019-05-04 17:26:00 67 mm[Hg] Unive rsity of pressure [place] [facility] Heart rate 2019-05-04 17:26:00 80 /min Universi ty of [place] [facility] Systolic blood 2019-04-20 17:14:00 135 mm[Hg] Univer sity of pressure [place] [facility] Diastolic blood 2019-04-20 17:14:00 80 mm[Hg] Unive rsity of pressure [place] [facility] Heart rate 2019-04-20 17:14:00 80 /min Universi ty of [place] [facility] Body temperature 2019-04-20 17:14:00 36.67 Natalie Univ ersity of [facility] Respiratory rate 2019-04-20 17:11:00 20 /min Univ ersity of [place] [facility] Body height 2019-04-20 17:11:00 172.7 cm [facility]i ty [facility] [place] [facility] Body weight 2019-04-20 17:11:00 77.565 kg [facility]i ty of [place] [facility] BMI 2019-04-20 17:11:00 26.00 kg/m2 [facility] ty [facility] [place] [facility] Oxygen saturation in 2019-04-20 17:11:00 98 /min University of Arterial blood by [facility] Pulse oximetry Branch Systolic blood 2018-10-06 13:34:00 127 mm[Hg] Univer sity of pressure [place] [facility] Diastolic blood 2018-10-06 13:34:00 72 mm[Hg] Unive rsity of pressure [place] [facility] Body height 2018-10-06 13:34:00 175.3 cm Universi ty of [place] [facility] Body weight 2018-10-06 13:34:00 81.647 kg [facility]i ty [facility] [place] [facility] BMI 2018-10-06 13:34:00 26.58 kg/m2 [facility] [place] [facility] Procedures Procedure Date / Time Performing Clinician Source Performed AUTHORIZATION FOR 2020-02-18 06:01:00 Doctor Unassigned, No [facility] [place] RELEASE OF PHI [facility] COMP. METABOLIC PANEL 2019-09-02 11:21:00 [place] Mccall [facility] ([id number]) [facility] CBC WITH DIFFERENTIAL 2019-09-02 11:21:00 [place] Mccall [facility] URINALYSIS 2019-09-02 11:21:00 Singer [place] o f [facility] NOTICE OF PRIVACY 2019-09-02 10:54:46 Doctor Unassigned, No [facility] PRACTICES Name [facility] CONSENT/REFUSAL FOR 2019-09-02 10:54:27 [facility]igned, [facility] PHYSICIAN ORDERS 2019-05-24 05:01:00 Doctor Unassigned, No [facility] POCT URINALYSIS AUTO 2019-05-04 17:32:00 Robbie Car [facility] DISCLOSURE AND CONSENT, 2019-05-04 06:01:00 Doctor Unassigned, N o [facility] MEDICAL AND SURGICAL [facility] Medical [facility] nch PROCEDURES POCT URINALYSIS AUTO 2019-04-20 17:08:00 Robbie Car [facility] ASSIGNMENT OF BENEFITS 2019-04-20 16:53:27 Doctor Unassigned, No [facility] REFERRAL- 2018-10-04 05:01:00 Doctor Unassigned, No [facility] REQUEST/RESPONSE [facility] REFUSAL OF NON-MEDICAL 2018-04-20 06:01:00 Doctor Unassigned, No [facility] SERVICES [facility] Plan of Care Planned Activity Planned Date Details Comments Source Instructions [facility] Practice Encounters Start End Encounter Admission Attending Care Care Encounter Source Date/Time Date/Time Type Type Clinicians Facility Department ID 2021-01-02 Emergency [facility] [id number] [facility] 2021-01-02 Emergency [facility] [id number] Univers 03:17:11 [facility] 2020-12-10 Inpatient ER NIA MIRANDA Surgery [id number] SLE 12:16:46 ZOYA 2020-12-10 Inpatient ER COLT MOLINA Gastro [id number] [facility] 12:16:10 [facility] 2021-01-07 2021-01-07 [facility]phone [facility] 1.2.840.114 [id number] Univers 00:00:00 00:00:00 Eduardo Sandhu HEALTH 350.1.13.10 it y of [place] 4.2.7.2.686 Bran as ARISTEO?BLEA [phone] [place] delia THOMAS [address] [place] [address] 2021-01-05 2021-01-05 [facility] 1.2.840.114 [id number] Univers 00:00:00 00:00:00 Eduardo Sandhu HEALTH 350.1.13.10 it y of [place] 4.2.7.2.686 Bran as ARISTEO?BLEA [phone] [place] delia THMOAS [address] [place] [address] 2020-10-14 2020-10-14 [place] [facility] 1.2.840.114 [id number] Univers 00:00:00 00:00:00 Eduardo Sandhu Health 350.1.13.10 it y of Surgical 4.2.7.2.686 Bran as Specialti [phone] Ky delia bowen 198 [facility] 2020-10-09 2020-10-09 [place] [facility] 1.2.840.114 [id number] Univers 00:00:00 00:00:00 Eduardo Sandhu Health 350.1.13.10 it y of Surgical 4.2.7.2.686 Bran as Specialti [phone] Ky pemaal es 198 [facility] 2020-09-11 2020-09-11 Michael [facility] 1.2.840.114 [id number] Univers 00:00:00 00:00:00 [facility] 350.1.13.10 it y of Surgical 4.2.7.2.686 Bran as Specialti [phone] Ky dical es 198 [facility] 2020-08-14 2020-08-14 Michael [facility] 1.2.840.114 [id number] Univers 00:00:00 00:00:00 [facility] 350.1.13.10 it y of Surgical 4.2.7.2.686 Bran as Specialti [phone] Me dical es [address] [place] 2020-07-07 2020-07-07 Telephone [facility] 1.2.840.114 [id number] [facility] 00:00:00 00:00:00 Eduardo Sandhu [facility] 350.1.13.10 it y of Surgical 4.2.7.2.686 Bran as Specialti [phone] Ky dical es [address] [place] 2020-07-07 2020-07-07 Telephone [facility] 1.2.840.114 [id number] 00:00:00 00:00:00 Eduardo [facility] 350.1.13.10 Surgical 4.2.7.2.686 Specialti [id number] es 198 [place] 2020-06-12 2020-06-12 Outpatient Ajibade_O_A VFP VFP 796 [id number] [facility] 10:56:00 10:56:00 H 35375 [facility] 2020-05-26 2020-05-26 Telephone [facility] 1.2.840.114 [id number] Univers 00:00:00 00:00:00 Eduardo [facility] 350.1.13.10 it y of Surgical 4.2.7.2.686 Bran as Specialti [phone] Ky dical es [address] [place] 2020-05-26 2020-05-26 Telephone [facility] 1.2.840.114 [id number] 00:00:00 00:00:00 Eduardo [facility] 350.1.13.10 Surgical 4.2.7.2.686 Specialti [phone] es 198 [place] 2020-03-20 2020-03-20 Outpatient Ajibade_O_A VFP VFP 796 [id number] Village 05:22:00 05:22:00 H 54438 Family Practic e 2020-03-20 2020-03-20 Outpatient Ajibade_O_A VFP VFP 796 [id number] Village 05:22:00 05:22:00 H 28890 Family Practic e 2020-03-20 2020-03-20 Outpatient Ajibade_O_A VFP VFP 796 294-202 [facility] 05:22:00 05:22:00 H 45127 Family Practic e 2020-03-20 2020-03-20 Telephone Kory TXPAMELLA 1.2.837.482 [id number] [facility] 00:00:00 00:00:00 [facility] 350.1.13.10 it y of Surgical 4.2.7.2.686 Bran as Specialti [phone] Ky dical es 198 [facility] 2020-03-20 2020-03-20 Telephone [facility] 1.2.403.316 [id number] 00:00:00 00:00:00 [facility] 350.1.13.10 Surgical 4.2.7.2.686 Specialti [phone] es 198 [place] 2020-03-10 2020-03-10 Outpatient Ajibade_O_A VFP [facility] 796 [facility] 11:19:00 11:19:00 H 95996 Family Practic e 2020-03-10 2020-03-10 [facility] [place] - [id number] V illage 00:00:00 00:00:00 Leo Sanhcez Famil y DATA PROCESSING MANAGER: 9235 Medical - Pract ic Nithya Arteaga, [email or web address] [facility], [facility] [address] , Ph. 2020-02-18 2020-02-18 Orders Doctor NIRAV 1.2.840.114 [id number] [facility] 00:00:00 00:00:00 Only Unassigned, KENNETH 350.1.13.10 ity of [place] [facility] 4.2.7.2.686 Bran as [phone] [address] 2020-02-18 2020-02-18 Orders Doctor NIRAV 1.2.840.114 [id number] 00:00:00 00:00:00 Only Unassigned, KENNETH 350.1.13.10 [place] [facility] 4.2.7.2.686 [id number] [facility] 2020-01-28 2020-01-28 Telephone Kory [facility] 1.2.909.056 [id number] 4050 [facility] 00:00:00 00:00:00 [facility] 350.1.13.10 it y of Surgical 4.2.7.2.686 Bran as Specialti [phone] Me dical es 198 [facility] 2020-01-28 2020-01-28 Telephone [facility] 1.2.943.925 [id number] 00:00:00 00:00:00 [facility] 350.1.13.10 Surgical 4.2.7.2.686 Specialti [phone] es 198 [place] 2019-12-28 2019-12-28 Emergency ER [facility]H Emergency [id number] [facility] 20:07:00 20:07:00 2019-12-21 2019-12-21 [facility] 1.2.840.114 [id number] Univers 00:00:00 00:00:00 [facility] 350.1.13.10 i ty [place] [phone] Me dical nal [address] [place] [address] 2019-12-21 2019-12-21 Telephone [facility] 1.2.840.114 [id number] 00:00:00 00:00:00 Formerly [facility] 350.1.13.10 [place] 4.2.7.2.686 Professio [phone] [address] 2019-12-20 2019-12-20 [facility] [id number] Q-20 Univers 09:30:00 09:30:00 [facility] [id number] [facility] 2019-12-20 2019-12-20 [facility] [id number] Univers 09:30:00 09:30:00 [facility] 2019-12-10 2019-12-10 [facility] [id number] Q-20 Univers 15:15:00 15:15:00 [facility] 2019-12-10 2019-12-10 [facility] [id number] Univers 15:15:00 15:15:00 [facility] 2019-12-07 2019-12-07 Outpatient R [facility] [id number] -[id number] Univers 13:00:00 13:00:[address] [facility] 2019-12-07 2019-12-07 Outpatient R JOYCE [facility] [id number] Univers 13:00:00 13:00:[address] [facility] 2019-12-07 2019-12-07 Nurse Nurse, [facility] Surgery [facility] 1.2. 840.114 [id number] [facility] 10:38:50 11:10:03 Visit Robbie Car 350.1.13.10 [place] [phone] [address] 2019-12-07 2019-12-07 Nurse Nurse, [facility] 1.2.840.114 [id number] 10:38:50 11:10:03 Visit Surgery [place] 350.1.13.10 [place] 4.2.7.2.686 Professio [phone] [address] 2019-11-20 2019-11-20 Nurse Nurse, [facility] Surgery [facility] 1.2. 840.114 [id number] [facility] 13:06:00 13:52:14 Visit Robbie Car 350.1.13.10 it[place] of [place].2.[place] [phone] [address] 2019-11-20 2019-11-20 Nurse Nurse, [facility] 1.2.840.114 [id number] 13:06:00 13:52:14 Visit Surgery Gu [place] 350.1.13.10 [place] 4.2.7.2.686 Professio [phone] [address] 2019-11-20 2019-11-20 Outpatient R [facility] [id number] -[id number] Univers 13:00:00 13:00:[id number] [facility] 2019-11-20 2019-11-20 Outpatient R JOYCE [facility] [id number] Univers 13:00:00 13:00:[address] [facility] it[facility] 2019-11-07 2019-11-07 Nurse Nurse, [facility] Surgery [facility] 1.2. 840.114 [id number] Univers 14:34:31 14:49:31 Visit Robbie Car 350.1.13.10 [place]2.7.2.[place] [phone] [address] 2019-11-07 2019-11-07 Nurse Nurse, [facility] 1.2.840.114 [id number] 14:34:31 14:49:31 Visit Shree Kendrick 350.1.13.10 [place] 4.2.7.2.686 Professio [phone] [address] 2019-11-07 2019-11-07 Outpatient R [facility] [id number] Univers 14:15:00 14:15:[address] [facility] 2019-11-07 2019-11-07 Outpatient [facility] [id number] -[id number] Univers 11:00:00 11:00:[address] [facility] 2019-11-07 2019-11-07 Outpatient R [facility] [id number] Univers 11:00:00 11:00:00 [facility] 2019-11-01 2019-11-01 Outpatient Ajibade_O_A VFP VFP [id number] [facility] 04:47:00 04:47:00 H [id number] Family Practic e 2019-09-24 2019-09-24 Office [facility] 1.2.840.114 [id number] Univers 15:17:44 17:03:35 Visit Robbie [place] 350.1.13.10 i ty of [place]2.7.2.[place] [phone] [address] 2019-09-24 2019-09-24 Office [facility] 1.2.840.114 [id number] 15:17:44 17:03:35 Visit Robbie Kendrick 350.1.13.10 [place] 4.2.7.2.686 Professio [phone] [address] 2019-09-24 2019-09-24 [facility] [id number] Q-20 Univers 16:00:00 16:00:[address] [facility] it[facility] 2019-09-24 2019-09-24 Outpatient R JOYCE [facility] [id number] Univers 16:00:00 16:00:[address] [facility] 2019-09-21 2019-09-21 Office Joyce [facility] 1.2.840.114 [id number] Univers 15:33:57 16:14:10 Visit Robbie [place] 350.1.13.10 i ty [place]2.7.2.[place] [phone] [place] dical nal [address] [place] [address] 2019-09-21 2019-09-21 Outpatient R JOYCE [facility] [id number] Univers 16:00:00 16:00:00 ROBBIE ity of [facility] 2019-09-21 2019-09-21 Outpatient R JOYCE [facility] [id number] Q-20 Univers 11:00:00 11:00:00 [facility] [id number] ity of [facility] 2019-09-19 2019-09-19 Nurse Nurse, Adc Surgery [facility] 1.2. 840.114 [id number] Univers 10:50:18 11:21:35 Visit Robbie Car [place] 350.1.13.10 [place]2.7.2.[place] [phone] [place] dical nal [address] [place] [address] 2019-09-19 2019-09-19 Outpatient R [facility] [id number] Univers 10:45:00 10:45:00 [id number] ity of [facility] 2019-09-19 2019-09-19 Outpatient R [facility] [id number] Univers 10:45:00 10:45:00 ity of [facility] 2019-09-17 2019-09-17 Refradha [facility] 1.2.966.282 [id number] Univers 00:00:00 00:00:00 Eduardo Sandhu [facility] 350.1.13.10 it y of Surgical 4.2.7.2.686 Bran as Specialti [phone] Ky dical es 198 [facility] 2019-09-17 2019-09-17 Refradha [facility] 1.2.217.563 [id number] 00:00:00 00:00:00 Eduardo Sandhu [employer] 350.1.13.10 Surgical 4.2.7.2.686 Specialti [id number] es 198 [place] 2019-09-02 2019-09-02 Emergency Singer [facility] 1.2.588.476 [id number] Univers 05:59:14 07:38:00 [place] Kendrick 350.1.13.10 i ty of [place].2.7.2.686 [place] [phone] [facility] [address] [place] 2019-09-02 2019-09-02 Orders Doctor NIRAV 1.2.840.114 [id number] Univers 00:00:00 00:00:00 Only Unassigned, KENNETH 350.1.13.10 ity of [place] [facility] 4.2.7.2.686 Bran as [phone] [facility] [address] [place] 2019-08-30 2019-08-30 Telephone [facility] 1.2.840.114 [id number] Univers 00:00:00 00:00:00 Eduardo Elliott 350.1.13.10 it y of Surgical 4.2.7.2.686 Bran as Specialti [phone] Ky dical es 198 [facility] 2019-08-24 2019-08-24 [facility] [id number] Q-20 Univers 14:00:00 14:00:[id number] [facility] 2019-08-24 2019-08-24 [facility] [id number] Univers 14:00:00 14:00:00 [facility] 2019-08-10 2019-08-10 Office [facility] 1.2.840.114 [id number] Univers 15:15:27 16:21:06 Visit Robbie Kendrick 350.1.13.10 i ty of [place]2.7.2.686 [place] [facility] [phone] Me dical nal 204 [facility] 2019-08-10 2019-08-10 [facility] [id number] Q-20 Univers 16:00:00 16:00:[address] [facility] 2019-08-10 2019-08-10 Outpatient R JOYCE [facility] [id number] Univers 16:00:00 16:00:00 ROBBIE ity of [facility] 2019-07-23 2019-07-23 Outpatient R JOYCE [facility] [id number] Q-20 Univers 10:00:00 10:00:[id number] [facility] 2019-07-23 2019-07-23 Outpatient R JOYCE [facility] [id number] Univers 10:00:00 10:00:00 [facility] 2019-07-09 2019-07-09 Office [facility] 1.2.840.114 [id number] Univers 10:27:37 11:55:27 Visit [facility] 350.1.13.10 i ty [facility] 4.2.7.2.686 [place] centeno Professio [phone] Ky dical [address] 2019-07-09 2019-07-09 Outpatient R JOYCE [facility] [id number] Q-20 Univers 11:00:00 11:00:00 [facility] [id number] ity [facility] 2019-07-09 2019-07-09 Outpatient R JOYCE [facility] [id number] Univers 11:00:00 11:00:00 [facility] 2019-07-04 2019-07-04 Outpatient R [facility] [id number] Univers 09:00:00 09:00:[id number] [facility] 2019-07-04 2019-07-04 Outpatient R [facility] [id number] Univers 09:00:00 09:00:00 ity of [facility] 2019-07-03 2019-07-03 Outpatient R [facility] [id number] Univers 10:00:00 10:00:00 [id number] ity of [facility] 2019-07-03 2019-07-03 Outpatient R [facility] [id number] Univers 10:00:00 10:00:[address] [facility] 2019-07-03 2019-07-03 Nurse Nurse, [facility] Surgery [facility] 1.2. 840.114 [id number] Univers 09:29:30 09:53:59 Visit Robbie Car 350.1.13.10 it[place].2.[place] [phone] Ky dical nal 204 [facility] 2019-06-18 2019-06-18 Telephone Juanita [facility] 1.2.840.114 [id number] Univers 00:00:00 00:00:00 [facility] 350.1.13.10 it y of Surgical 4.2.7.2.686 Bran as Specialti [phone] Ky dical es 198 [facility] 2019-06-06 2019-06-06 Nurse Nurse, [facility] Surgery [facility] 1.2. 840.114 [id number] Univers 09:58:45 10:28:51 Visit Robbie Car 350.1.13.10 ity of [place] 4[place]2.7.2.[place] [phone] Ky dical nal 204 [facility] 2019-06-06 2019-06-06 Outpatient R [facility] [id number] Univers 09:45:00 09:45:00 [id number] ity of [facility] 2019-06-06 2019-06-06 [facility] [id number] Univers 09:45:00 09:45:[address] [facility] 2019-06-06 2019-06-06 Telephone [facility] 1.2.888.890 [id number] Univers 00:00:00 00:00:00 Gloria Fernandez Mireille 350.1.13.10 ity of [place] 4.2.7.2.[place] [phone] Ky dical nal 377 [facility] 2019-05-24 2019-05-24 [facility] [id number] Q-20 Univers 16:15:00 16:15:[id number] [facility] 2019-05-24 2019-05-24 [facility] [id number] Univers 16:15:00 16:15:[address] [facility] 2019-05-24 2019-05-24 Office [facility] 1.2.840.114 [id number] Univers 12:43:32 14:03:24 Visit Robbie [place] 350.1.13.10 i ty of [place] 4.2.7.2.[place] Profess[place] [phone] Ky dical [facility] 204 [facility] 2019-05-24 2019-05-24 Outpatient R [facility] [id number] Univers 13:00:00 13:00:[address] [facility] 2019-05-24 2019-05-24 Orders Doctor NIRAV 1.2.840.114 [id number] Univers 00:00:00 00:00:00 Only Unassigned, KENNETH 350.1.13.10 ity of [place] [facility] 4.2.7.2.686 Bran as [id number] [address] 2019-05-21 2019-05-21 Telephone [facility] 1.2.840.114 [id number] Univers 00:00:00 00:00:00 [facility] 350.1.13.10 it y of Surgical 4.2.7.2.686 Bran as Specialti [phone] Ky dical es 198 [facility] 2019-05-04 2019-05-04 Office Joyce [facility] 1.2.840.114 [id number] Univers 11:01:36 12:30:18 Visit Rm, Adc Surg Spec Procedure [place] 3 50.1.13.10 ity of [place] 4.2.7.2.[place] [phone] Ky dic[address] 2019-05-04 2019-05-04 Outpatient R [facility] [id number] Univers 11:00:00 11:00:[address] [facility] 2019-05-04 2019-05-04 Orders Doctor GASTELUM 1.2.840.114 [id number] Univers 00:00:00 00:00:00 Only Unassigned, KENNETH 350.1.13.10 ity of [place] [facility] 4.2.7.2.686 Bran as [phone] [address] 2019-04-25 2019-04-25 Outpatient [facility] [id number] [facility] 07:22:00 07:22:00 _J_ [id number] Family Practic e 2019-04-24 2019-04-24 Outpatient PAUL, [facility] [id number] 286 [place] 00:00:00 00:00:00 JULIET Martinez [facility] 2019-04-23 2019-04-23 Telephone Joyce [facility] 1.2.840.114 [id number] Univers 00:00:00 00:00:00 [facility]ly [facility] 350.1.13.10 i ty of [place] 4.2.7.2.[place] [phone] Ky dical nal 204 [facility] 2019-04-20 2019-04-20 Outpatient R JOYCE [facility] [id number] Univers 11:00:00 12:03:[address] [facility] 2019-04-20 2019-04-20 Office [facility] 1.2.840.114 [id number] Univers 10:57:47 12:03:25 Visit [facility] 350.1.13.10 i ty of [place] 4.2.7.2.[place] [phone] Ky dical nal 204 [facility] 2019-04-20 2019-04-20 Orders Doctor NIRAV 1.2.840.114 [id number] Univers 00:00:00 00:00:00 Only Unassigned, KENNETH 350.1.13.10 ity of [place] [facility] 4.2.7.2.686 Bran as [phone] [address] 2018-10-31 2018-10-31 Refill [facility] 1.2.502.816 [id number] Univers 00:00:00 00:00:00 EduardoBooodl 350.1.13.10 it y of Surgical 4.2.7.2.686 Bran as Specialti [phone] Ky dical es 198 [facility] 2018-10-06 2018-10-06 Office Juanita [facility] 1.2.602.178 [id number] Univers 08:24:12 09:20:41 Visit Eduardo L [employer] 350.1.13.10 it y of Surgical 4.2.7.2.686 Bran as Specialti [phone] Ky dical es [address] [place] 2018-10-04 2018-10-04 Orders Doctor NIRAV Costa.2.840.114 [id number] Univers 00:00:00 00:00:00 Only Unassigned, KENNETH 350.1.13.10 ity of [place] [facility] 4.2.7.2.686 Bran as [phone] [facility] [address] [place] 2018-04-20 2018-04-20 Orders Doctor NIRAV 1.2.840.114 [id number] Univers 00:00:00 00:00:00 Only Unassigned, KENNETH 350.1.13.10 ity of [place] [facility] 4.2.7.2.686 Bran as [id number] [address] Results Test Description Test Time Test Comments Results Result Comments Source BLOOD CULTURE 2020-01-03 10:00:00 Test Item Value Reference Range Interpretation Comme nts CULTURE (BEAKER) (test code = 1095) No growth in 5 days BLOOD [id number] 10:00:00 Test Item Value Reference Range Interpretation Comments CULTURE (BEAKER) (test No growth in 5 days code = 1095) CT, CTA, [id number] 09:40:00Unlisted Reason for Exam - Click Yes and Enter Reason Below->YesUnlisted Reason for Exam->s/p TAVR and SAVR with gradientJOHN C. FREMONT [facility]OSPITALName: TREV STONE : 1935 Sex: MAddendum [...] dictated regarding the non-vascular findings by the Fractionation Plant Supervisor Radiologist. Major vascular findings were discussed with Dr. Valladares at the time of dictation. Signed: Edwardo East Verified Date/Time: 01/02/2020 16:43:17 Reading Location: [place] [address] [place] Reading Room [facility] [id number] 07:24:00 Test Item Value Reference Range Interpretation [...] S NOT APPLICABLE FOR DIALYSIS PATIEN TS. [employer] Architect ID - QUINCY [id number] 07:24:00 Test Item Value Reference Range Interpretation Comments MAGNESIUM (BEAKER) (test code = 1.8 mg/dL 1.6-2.6 627) [employer] Architect ID - QUINCY [id number] 07:24:00 Test Item Value Reference Range Interpretation Comments PHOSPHORUS (BEAKER) (test code = 2.7 mg/dL 2.3-4.7 604) [employer] Architect ID - QUINCY FPROTHROMBIN [id number] 07:00:00 Test Item Value Reference Range Interpretation [...] valves.While on warfarin.CBC W/PLT COUNT & AUTO [id number] 06:56:00 Test Item Value Reference Range Interpretation [...] PERCENT (BEAKER) (test code = 2801) PROTHROMBIN [id number] 18:01:00 Test Item Value Reference Range Interpretation [...] INR is2.5-3.5 for patients wiht mechanical heart valves.[id number] 06:38:00 Test Item Value Reference Range Interpretation Comments MAGNESIUM (BEAKER) (test code = 1.8 mg/dL 1.6-2.6 627) Teradata Architect ID - EDASICOMPREHENSIVE METABOLIC [id number] 06:38:00 Test Item Value Reference Range Interpretation [...] S NOT APPLICABLE FOR DIALYSIS PATIEN TS. Teradata Architect ID - [id number] 06:38:00 Test Item Value Reference Range Interpretation Comments PHOSPHORUS (BEAKER) (test code = 2.7 mg/dL 2.3-4.7 604) Teradata Architect ID - EDASICBC W/PLT COUNT & AUTO [id number] 06:03:00 Test Item Value Reference Range Interpretation [...] PERCENT (BEAKER) (test code = 2801) MRSA [id number] 15:50:00 Test Item Value Reference Range Interpretation Comments CULTURE (BEAKER) (test code No MRSA isolated = 1095) FL, ESOPH, SWALLOW FUNCTION, WITH CINE OR [id number] 15:38:00D/c NGT prior to the study and then attemptReason for exam:->dysphagea [facility] 1935 Sex: MFINAL [...] Wilkinson Verified Date/Time: 01/01/2020 15:38:45 Reading Location: [address] Reading Room [id number] 06:21:00 Test Item Value Reference Range Interpretation Comments MAGNESIUM (BEAKER) (test code = 1.9 mg/dL 1.6-2.6 627) Teradata Architect ID - edasiCOMPREHENSIVE METABOLIC [id number] 06:21:00 Test Item Value Reference Range Interpretation [...] S NOT APPLICABLE FOR DIALYSIS PATIEN TS. Teradata Architect ID - [id number] 06:21:00 Test Item Value Reference Range Interpretation Comments PHOSPHORUS (BEAKER) (test code = 1.8 mg/dL 2.3-4.7 L 604) Teradata Architect ID - edasiCBC W/PLT COUNT & AUTO [id number] 05:52:00 Test Item Value Reference Range Interpretation [...] PERCENT (BEAKER) (test code = 2801) POCT-GLUCOSE [id number] 19:08:00 Test Item Value Reference Range Interpretation Comments POC-GLUCOSE METER 73 mg/dL 70-110 : TESTED Rebecca Jason [facility] 67[address] (BEAKER) (test code = [place], 1538) [address]: Teradata Architect/Techni cory ID = [id number] for ALEXANDRO EPSTEIN POCT-GLUCOSE [id number] 14:49:00 Test Item Value Reference Range Interpretation Comments POC-GLUCOSE METER 74 mg/dL 70-110 : TESTED A T [facility] 67[address] (BEAKER) (test code = CHAKA Cheung [facility], 1538) [address]: Teradata Architect/Techni cory ID = [id number] for BRETT-STAFFOR TienGENGISSELLE MRSA [id number] 12:26:00 Test Item Value Reference Range Interpretation Comments CULTURE (BEAKER) (test code No MRSA isolated = 1095) SPUTUM CULTURE + GRAM [id number] 12:26:00 Test Item Value Reference Range Interpretation Comments CULTURE (BEAKER) 1+ Normal respiratory (test code = 1095) regina present GRAM STAIN RESULT 4+ WBCs (BEAKER) (test code = 1123) GRAM STAIN RESULT 0-5 epithelial cells (BEAKER) (test code = 57893) GRAM STAIN RESULT <1+ gram positive cocci (BEAKER) (test code = in pairs and clusters 73664) COMPREHENSIVE METABOLIC [id number] 06:48:00 Test Item Value Reference Range Interpretation [...] S NOT APPLICABLE FOR DIALYSIS PATIEN TS. Teradata Architect ID - MERON [id number] 06:48:00 Test Item Value Reference Range Interpretation Comments MAGNESIUM (BEAKER) (test code = 2.0 mg/dL 1.6-2.6 627) Teradata Architect ID - PIENRIKE [id number] 06:48:00 Test Item Value Reference Range Interpretation Comments PHOSPHORUS (BEAKER) (test code = 2.0 mg/dL 2.3-4.7 L 604) Teradata Architect ID - MERON JASEN/S, RENAL, [id number] 06:39:00Reason for exam:- >worsening kidney function/ metabolic acidosis [facility] : 1935 Sex: [...] 12/31/2019 06:39:51 CBC W/PLT COUNT & AUTO [id number] 06:11:00 Test Item Value Reference Range Interpretation [...] = 2801) RAD, CHEST, 1 VIEW, NON [id number] 01:43:00Reason for exam:->respiratory failureShould this be performed at the bedside?->Yes [facility] : 1935 Sex: [...] 12/31/2019 01:43:07 CBC W/PLT COUNT & AUTO [id number] 18:42:00 Test Item Value Reference Range Interpretation [...] (BEAKER) (test code = 2801) VANCOMYCIN LEVEL, [id number] 09:49:00 Test Item Value Reference Range Interpretation Comments VANCOMYCIN TROUGH (BEAKER) (test 9.6 ug/mL 10.0-20.0 L code = 522) Teradata Architect ID Justine BORDEN CCOMPREHENSIVE METABOLIC [id number] 05:31:00 Test Item Value Reference Range Interpretation [...] S NOT APPLICABLE FOR DIALYSIS PATIEN TS. Teradata Architect ID - BRANDONENRIKE [id number] 05:13:00 Test Item Value Reference Range Interpretation Comments MAGNESIUM (BEAKER) (test code = 1.6 mg/dL 1.6-2.6 627) Teradata Architect ID - MERON [id number] 05:13:00 Test Item Value Reference Range Interpretation Comments PHOSPHORUS (BEAKER) (test code = 2.6 mg/dL 2.3-4.7 604) Teradata Architect ID - MERON LCBC W/PLT COUNT & AUTO [id number] 04:43:00 Test Item Value Reference Range Interpretation Comments WHITE BLOOD CELL COUNT 19.3 K/ L 3.5-10.5 H (BEAKER) (test code = 775) RED BLOOD CELL COUNT 3.87 M/ L 4.63-6.08 L (BEAKER) (test code = 761) HEMOGLOBIN (BEAKER) 11.7 GM/DL 13.7-17.5 L Discorda nt HGB (test code = 410) results co mpared to previous result s; clinical correl ation required.554213 HEMATOCRIT (BEAKER) 36.4 % 40.1-51.0 L (test [...] (BEAKER) (test code = 2801) BLOOD GAS, [id number] 04:36:00 Test Item Value Reference Range Interpretation [...] (BEAKER) (test code = 1819) 50.0 CORTISOL,60 [id number] 03:53:00 Test Item Value Reference Range Interpretation [...] Pharmacy Policy and Procedure Section on The Source.Teradata Architect ID - PIAYA LCORTISOL,30 [id number] 03:52:00 Test Item Value Reference Range Interpretation [...] Pharmacy Policy and Procedure Section on The Source.Teradata Architect ID - PIAYA LRAD, CHEST, 1 VIEW, NON [id number] 03:30:00Reason for exam:- >respiratory failureShould this be performed at the bedside?->Yes [facility] : 1935 Sex: [...] Anastasiia Aponte MDReport Verified Date/Time: 12/30/2019 03:30:42 CORTISOL,[id number] 01:31:00 Test Item Value Reference Range Interpretation [...] Pharmacy Policy and Procedure Section on The Source.Teradata Architect ID - PIAYA LCREATININE, RANDOM [id number] 19:52:00 Test Item Value Reference Range Interpretation Comments CREATININE URINE (Yaupon TherapeuticsAKER) (test 310.8 mg/dL code = 375) Reference Range: No NormalsOperator ID - DBSODIUM, RANDOM [id number] 19:52:00 Test Item Value Reference Range Interpretation Comments SODIUM URINE (BEAKER) (test code = < meq/L 243) Reference Range: No NormalsOperator ID - DBPOCT-GLUCOSE [id number] 18:14:00 Test Item Value Reference Range Interpretation Comments POC-GLUCOSE METER 105 mg/dL 70-110 : TESTED A T [facility] 67[address] (eTelemetry) (test code = [place], 1538) [address]: Teradata Architect/Techni cory ID = [id number] for Laura Bauman BASIC METABOLIC [id number] 16:24:00 Test Item Value Reference Range Interpretation [...] S NOT APPLICABLE FOR DIALYSIS PATIEN TS. Teradata Architect ID - [id number] 16:23:00 Test Item Value Reference Range Interpretation Comments MAGNESIUM (BEAKER) (test code = 1.6 mg/dL 1.6-2.6 627) Teradata Architect ID - DBBLOOD GAS, [id number] 16:09:00 Test Item Value Reference Range Interpretation [...] = 1819) 50.0 RAD, ABDOMEN/KUB, 1 VIEW [id number] 12:40:00Reason for exam:->NGT placement [facility] : 1935 Sex: MFINAL [...] MDReport Verified Date/Time: 12/29/2019 12:40:58 Reading Location: [address] Body Reading Room B-TYPE NATRIURETIC FACTOR (BNP)2019-12-29 11:35:00 Test Item Value Reference Range Interpretation Comments B-TYPE NATRIURETIC PEPTIDE (BEAKER) 193 pg/mL 0-100 H (test code = 700) Teradata Architect ID - MAR CLACTIC ACID, [id number] 11:25:00 Test Item Value Reference Range Interpretation Comments LACTATE BLOOD ARTERIAL (2) 3.3 mmol/L 0.5-2.2 H (BEAKER) (test code = 2874) Teradata Architect ID - MAR CLACTIC ACID, [id number] 07:06:00 Test Item Value Reference Range Interpretation Comments LACTATE BLOOD VENOUS 3.49 mmol/L 0.50-2.20 H Specime n slightly (2) (BEAKER) (test hemolyzed code = 2872) Teradata Architect ID - EDASIURINALYSIS W/ REFLEX URINE [id number] 06:56:00 Test Item Value Reference Range Interpretation [...] Many 1585) SOURCE(BEAKER) (test code = 2795) Teradata Architect ID - [auto]Teradata Architect ID - techPROTHROMBIN TIME/[id number] 06:54:00 Test Item Value Reference Range Interpretation [...] INR is2.5-3.5 for patients wiht mechanical heart valves.[id number] 06:54:00 Test Item Value Reference Range Interpretation Comments PARTIAL THROMBOPLASTIN TIME 30.3 seconds 22.5-36.0 (DAVE) (test code = 760) RAD, CHEST, 1 VIEW, NON [id number] 06:51:00Reason for exam:->ETT placementShould this be performed at the bedside?->Yes [facility] : 1935 Sex: MFINAL [...] uIU/mL 0.350-4.940 (DAVE) (test code = 772) Teradata Architect ID - WENDIERANI [id number] 06:40:00 Test Item Value Reference Range Interpretation [...] failure, acidosis, acute neurological disease, and persistent tachyarrhythmia.Teradata Architect ID - EDARMEN [id number] 06:36:00 Test Item Value Reference Range Interpretation [...] failure, acidosis, acute neurological disease, and persistent tachyarrhythmia.Teradata Architect ID - EDASICBC W/PLT COUNT & AUTO [id number] 04:56:00 Test Item Value Reference Range Interpretation [...] PERCENT (BEAKER) (test code = 2801) TROPONIN [id number] 04:43:00 Test Item Value Reference Range Interpretation [...] failure, acidosis, acute neurological disease, and persistent tachyarrhythmia.Teradata Architect ID - EDASICOMPREHENSIVE METABOLIC [id number] 04:37:00 Test Item Value Reference Range Interpretation [...] S NOT APPLICABLE FOR DIALYSIS PATIEN TS. Teradata Architect ID - [id number] 04:37:00 Test Item Value Reference Range Interpretation Comments MAGNESIUM (BEAKER) (test code = 1.7 mg/dL 1.6-2.6 627) Teradata Architect ID - [id number] 04:37:00 Test Item Value Reference Range Interpretation Comments PHOSPHORUS (BEAKER) (test code = 3.7 mg/dL 2.3-4.7 604) Teradata Architect ID - EDASIRAD, CHEST, 1 VIEW, NON [id number] 04:27:00Reason for exam:->ETT positionShould this be performed at the bedside?->Yes [facility] 1935 Sex: MFINAL REPORT CLINICAL INDICATION: Support lines. Comparison: The tip of an endotracheal tube is in good position above the kira at the level of the midclavicular heads. The cardiomediastinal contours are stable. Bilateral parenchymal and pleural opacities are unchanged. There is no pneumothorax. Signed: Gerry Sinha MDReport Verified Date/Time: 12/29/2019 04:27:00 SARS-COV2/RT-PCR ([facility])2019-12-29 04:15:00 Test Item Value Reference Range Interpretation Comments SARS-COV2/RT-PCR (test Negative Not Detected, Negative, code = 5587124) See external report for linked test SARS-COV-2 PERFORMING LAB [facility] (test code = 6950520) Negative result for this test determines that [...] 564(g) of the Act.Fact Sheet for Healthcare Providers:https://www.[employer]/sites/default/files/product/documents/Fact_Shee b_VF_Gwuasuosz_Jvdl_JFWG-CnG-5.pdfFact Sheet for Healthcare Patients:https://www.[employer]/sites/default/files/product/ documents/Neon_Tffgw_Jadbfble_Nmas_GHSV-LgN-9.pdfPerforming Laboratory:[address], [place] [address]YHSU-TJFFC GASES, [id number] 04:14:00 Test Item Value Reference Range Interpretation [...] EXCESS, -1.0 meq/L -2.0-3.0 : TESTED AT [place] [id number] ARTERIAL-POC [facility], (BEAKER) (test code 88672: = 1841) Teradata Architect/Techni cory ID = [id number] for SHAHZAD HERRERA MALAIKA [id number] 04:14:00 Test Item Value Reference Range Interpretation Comments POC-SODIUM ([facility]) 141 meq/L 135-148 : TESTED AT [place] [address] (test code = 1542) [facility] [place], [address]: Teradata Architect/Techni cory ID = [id number] for DONNELL GERMAIN [id number] 04:14:00 Test Item Value Reference Range Interpretation Comments POC-POTASSIUM 3.6 meq/L 3.6-5.5 : TESTED AT [place] [address] ([facility]) (test code [facility], = 1540) [address]: Teradata Architect/Techni cory ID = [id number] for DONNELL GERMAIN [id number] 04:14:00 Test Item Value Reference Range Interpretation Comments POC-HEMOGLOBIN 16.3 g/dL 13.0-16.8 : TESTED AT [place] [address] ([facility]) (test code [facility], = 1856) [address]: Teradata Architect/Techni cory ID = [id number] for DONNELL GERMAIN [id number] 04:14:00 Test Item Value Reference Range Interpretation Comments POC-HEMATOCRIT 48 % 40-50 : Teradata Architect/Te chnician ID = ([facility]) (test code = 229541 for DONNELL GERMAIN 1857) POCT-CALCIUM [id number] 04:14:00 Test Item Value Reference Range Interpretation Comments POC-CALCIUM IONIZED 1.18 mmol/L 1.12-1.27 : TESTED AT [facility] ([facility]) (test code = [facility] 1536) [place], [address]: Teradata Architect/Techni cory ID = [id number] for DONNELL GERMAIN [id number] 04:14:00 Test Item Value Reference Range Interpretation Comments POC-GLUCOSE ([facility]) 145 mg/dL 70-110 H : TESTE D AT [place] [address] (test code = 1855) [facility] [place], [address]: Teradata Architect/Techni cory ID = [id number] for DONNELL GERMAIN CBC W/PLT COUNT & AUTO [id number] 23:29:00 Test Item Value Reference Range Interpretation Comments WHITE BLOOD CELL COUNT ([facility]) 13.1 K/ L 3.5-10.5 H (test code [...] (BEAKER) (test code = 2801) BASIC METABOLIC [id number] 23:07:00 Test Item Value Reference Range Interpretation [...] S NOT APPLICABLE FOR DIALYSIS PATIEN TS. Teradata Architect ID - DBRAD, CHEST, 1 VIEW, NON [id number] 22:49:00Reason for exam:->pre-anesthesiaShould this be performed at the bedside?->Yes [facility] 1935 Sex: MFINAL [...] MDReport Verified Date/Time: 12/06 22:49:33 Reading Location: [facility] C013T Transitional Reading Room . [facility] ([address])2019-09-02 11:55:00 Test Item Value Reference Range Interpretation Comments NA (test code = 139 mmol/L 135-145 0971025643) K (test code = 4.1 mmol/L 3.5-5 8276881427) CL (test code = 104 mmol/L 98-108 4313557696) CO2 TOTAL (test code = 29 mmol/L 23-31 9232120130) AGAP (test code = 2-16 2976113569) BUN (test code = 21 mg/dL 7-23 2340933223) GLUCOSE (test code = 99 mg/dL 70-110 0115716186) CREATININE (test code 0.86 mg/dL 0.6-1.25 = 9163356682) TOTAL BILI (test code 0.7 mg/dL 0.1-1.1 = 8802469732) CALCIUM (test code = 9.3 mg/dL 8.6-10.6 0888265069) T PROTEIN (test code = 7.2 g/dL 6.3-8.2 8849272922) ALBUMIN (test code = 4.2 g/dL 3.5-5 6251787562) ALK PHOS (test code = 75 U/L 34-122 9362664207) ALTv (test code = 28 U/L 5-50 1742-6) AST(SGOT) (test code = 33 U/L 13-40 8663144095) eGFR Calculation mL/min/1.73m2 (Non-) (test code = 7636299150) eGFR Calculation mL/min/1.73m2 () (test code = 0502208826) JETT (test code = JETT) Association of [...] or urine or abnormalities in imaging tests). [facility] [id number] 11:53:00 Test Item Value Reference Range Interpretation Comments APPEARANCE (test code = Clear Clear 6138145766) COLOR (test code = Yellow Yellow 1262914012) PH (test code = 4.8-8.0 1032652181) SP GRAVITY (test code = 1.003-1.030 0900034689) GLU U QUAL (test code = Normal Normal 2402360373) BLOOD (test code = 1+ Negative A 4276273597) KETONES (test code = Negative Negative 3656878182) PROTEIN (test code = Negative Negative 2887-8) UROBILIN (test code = Normal Normal 8183247659) BILIRUBIN (test code = Negative Negative 1819208402) NITRITE (test code = Negative Negative 5647445057) LEUK ROLAN (test code = 75/uL Negative A 8232693307) RBC/HPF (test code = See_Comment H [Autom ated message] 0666379492) The system [employer] generated this result transmitted ref erence range: 0 - 3 HP F. The reference range was not used to int erpret this result as normal/abnormal . WBC/HPF (test code = See_Comment H [Autom ated message] 7275896693) The system [employer] generated this result transmitted ref erence range: 0 - 5 HP F. The reference range was not used to int erpret this result as normal/abnormal . BACTERIA (test code = Few Negative A 9915851900) MUCOUS (test code = Slight Negative LPF A 8905750972) SQ EPITH (test code = <1 HPF 3897427672) TRANS EPI (test code = <1 See_Comment [Aut omated message] 0060290744) The system [employer] generated this result transmitted ref erence range: <=1 HPF. The reference range was not used to int erpret this result as normal/abnormal . NOE EPITH (test code = <1 See_Comment [Aut omated message] 6657005970) The system [employer] generated this result transmitted ref erence range: <=1 HPF. The reference range was not used to int erpret this result as normal/abnormal . Lab Interpretation (test Abnormal code = 44579-2) [facility] WITH [id number] 11:52:00 Test Item Value Reference Range Interpretation Comments WBC (test code = See_Comment [Automated message] 6690-2) The system [employer] generated this result transmitted ref erence range: 4.20 - 1 0.70 10*3/?L. The re ference range was not u sed to interpret this result as normal/abnor mal. RBC (test code = See_Comment [Automated message] 789-8) The system [employer] generated this result transmitted ref erence range: [...] RDW-SD (test code 41.1 fL 38.5-51.6 = 82245-2) RDW-CV (test code 12.1 % 12.1-15.4 = 788-0) PLT (test code = See_Comment [Automated message] 777-3) The system whic h generated this result transmitted ref erence range: 150 - 32 8 10*3/?L. The re ference range was not u sed to interpret this result as normal/abnor mal. MPV (test code = 10.8 fL 9.8-13 66271-0) NRBC/100 WBC (test See_Comment [Automat ed message] code = 2119182979) The syste m which generated this result transmitted ref erence range: 0.0 - 10 .0 /100 WBCs. The refer ence range was not u sed to interpret this result as normal/abnor mal. NRBC x10^3 (test <0.01 See_Comment [Automated message] code = 5367299677) The syste m which generated this result transmitted ref erence range: 10*3/?L. The reference range was not used to interpr et this result as normal/abnormal . GRAN MAT (NEUT) % 44.8 % (test code = 770-8) IMM GRAN % (test 0.40 % code = 7860604525) LYMPH % (test code 42.0 % = 736-9) MONO % (test code 6.9 % = 5905-5) EOS % (test code = 5.0 % 713-8) BASO % (test code 0.9 % = 706-2) GRAN MAT 3.14 10*3/uL 1.99-6.95 x10^3(ANC) (test code = 9893065200) IMM GRAN x10^3 0.03 10*3/uL 0-0.06 (test code = 8603875275) LYMPH x10^3 (test 2.94 10*3/uL 1.09-3.23 code = 731-0) MONO x10^3 (test 0.48 10*3/uL 0.36-1.02 code = 742-7) EOS x10^3 (test 0.35 10*3/uL 0.06-0.53 code = 711-2) BASO x10^3 (test 0.06 10*3/uL 0.01-0.09 code = 704-7) [facility] [id number] 17:34:00 Test Item Value Reference Range Interpretation [...] 3267) Lab Interpretation (test code Normal = 01465-3) [facility] [id number] 17:34:00 Test Item Value Reference Range Interpretation [...] 3267) Lab Interpretation (test code Normal = 19490-6) [facility] URINALYSIS, [id number] 17:09:00 Test Item Value Reference Range Interpretation [...] U APPEAR (test code = clear 3267) [facility] URINALYSIS, [id number] 17:09:00 Test Item Value Reference Range Interpretation [...] U APPEAR (test code = clear 3267) [facility]"
== END ==
LOC: ER 04:43
DX: Z02.9 Encounter for administrative examinations, unspecified (principal)

== ENCOUNTER 2021-04-01 19:12 | Emergency (ER) | payer OTHER ==
--- OUTSIDE RECORDS SUMMARY | 2021-04-01 19:20 | XMS REPORT | Continuity of Care Document ---
:1935 Author Organization [facility] t Address [address] 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, A Attending Clinician Rm, Surg Spec Procedure Attending Clinician Unavailable Ige-[place]_J_AH Attending Clinician Unavailable LITTLE Attending Clinician Unavailable RUBEN Admitting Clinician Unavailable ADRIANA MOLINA Admitting Clinician Unavailable Ajibade_O_AH Admitting Clinician Unavailable [facility] Admitting Clinician Unavailable Ige-[place]_J_AH Admitting Clinician Unavailable Payers Payer Name Policy Type Policy Number Effective Date Expiration Date S musa HOOD [id number] 2018 PLUS CLASSIC/VALUE 00:00:00 AARP/MEDICARE [id number] 2015 COMPLETE 00:00:00 [employer] MEDICARE [id number] 2019 ADV 00:00:00 [employer] OF [place] - [id number] 2019 SANAPLUS 00:00:00 (MEDICARE REPLACEMENT/ADVANT AGE - [...] c 00 e 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 00:00: Practic block Block 00 e Cardiac Cardiac Problem Active [facility] arrhythmia Arrhythmia 1-04 [facility] 00:00: Practic 00 e Cerebrovas Cerebrovas Problem Active [facility] 1-[facility] Family accident Accident 00:00: Practi c 00 e Asthma Asthma Problem Active [place] 1-[facility] Family 00:00: Practic 00 e 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 Allergies, Adverse Reactions, Alerts Allergy Allergy Status Severity Reaction(s) Onset Inactive Treating Comm ents Source Name Type Date Date Clinician DIPHENHY Allergy Active 2019-03 [facility] DRAMINE 0-23 HCL 00:00: 00 ENALAPRI Allergy Active Hives 2014-03 [facility] L 03-18 00:00: 00 NO KNOWN Drug Active Univers ALLERGIE Class ity of [facility] Social History Social Habit Start Date Stop Date Quantity Comments Source Exposure to Not sure [facility] SARS-CoV-2 (event) Medica l Branch Sex Assigned At [birth year] [facility] 00:00:00 00:00:00 Medical Branch Smoking Status Start Date Stop Date Source Unknown if ever smoked [facility] Medications Ordered Filled Start Stop Current Ordering Indication Dosage Frequency Signature Comments Components Source Medication Medication Date Date Medication? Clinician (SIG) Name Name diclofenac 2020-03 Yes [id number] 75mg Take 1 [facility] 75 mg EC 03-07 9109 tablet by ity of tablet 00:00: mouth 2 (two) Medical times Branch daily with meals. diclofenac 2020-03 Yes [id number] 75mg Take 1 [facility] 75 mg EC 1-01 9109 tablet by ity of tablet 00:00: mouth (two) Medical times Branch daily with meals. diclofenac 2020-0 2021- No [id number] 75mg Take 1 [facility] 75 mg EC 8-10 09-10 9109 tablet by ity o f tablet 00:00: 04:59 mouth 2 00 :00 (two) Medical times Branch daily with meals for 30 days. diclofenac 2020-0 Yes [id number] 75mg Take 1 Univers 75 mg EC 7-08 9109 tablet by ity of tablet 00:00: mouth (two) Medical times Branch daily with meals. diclofenac 2020-0 Yes [id number] 75mg Take 1 [facility] 75 mg EC 7-08 9109 tablet by ity of tablet 00:00: mouth (two) Medical times Branch daily with meals. diclofenac 2020-0 Yes [id number] 75mg Take 1 [facility] 75 mg EC 7-08 9109 tablet by ity of tablet 00:00: mouth (two) Medical times Branch daily with meals. diclofenac 2020-0 2021- No [id number] 75mg Take 1 [facility] 75 mg EC 7-08 11-01 9109 tablet by ity o f tablet 00:00: 00:00 mouth 00 :00 (two) Medical times Branch daily with meals. diclofenac 2020-0 Yes [id number] 75mg Take 1 Univers 75 mg EC 6-10 9109 tablet by ity of tablet 00:00: mouth (two) Medical times Branch daily with meals. diclofenac 2020-0 Yes [id number] 75mg Take 1 [facility] 75 mg EC 6-10 9109 tablet by ity of tablet 00:00: mouth (two) Medical times Branch daily with meals. diclofenac 2020-0 Yes [id number] 75mg Take 1 [facility] 75 mg EC 6-10 9109 tablet by ity of tablet 00:00: mouth (two) Medical times Branch daily with meals. diclofenac 2020-0 Yes [id number] 75mg Take 1 [facility] 75 mg EC 6-10 9109 tablet by ity of tablet 00:00: mouth (two) Medical times Branch daily with meals. diclofenac 2020-0 Yes [id number] 75mg Take 1 [facility] 75 mg EC 6-10 9109 tablet by ity of tablet 00:00: mouth (two) Medical times Branch daily with meals. diclofenac 2021-0 Yes [id number] 75mg Take 1 Univers 75 mg EC [...] daily with meals. diclofenac 2021-0 2021- No [id number] 75mg Take 1 [facility] 75 mg EC [...] daily with meals. diclofenac 2019- 2020- No [id number] 75mg Take 1 [facility] 75 mg EC 1-23 12-24 9109 tablet by ity o f tablet 00:00: 05:59 mouth 2 [place] 00 :00 (two) Medical times Branch daily with meals for 30 days. diclofenac 2020-0 Yes [id number] 75mg Take 1 [facility] 75 mg EC 7-14 9109 tablet by ity of tablet 00:00: mouth 2 (two) Medical times Branch daily with meals. diclofenac 2020-0 Yes [id number] 75mg Take 1 [facility] 75 mg EC 7-14 9109 tablet by ity of tablet 00:00: mouth 2 (two) Medical times Branch daily with meals. diclofenac 2020-0 Yes [id number] 75mg Take 1 [facility] 75 mg EC 7-14 9109 tablet by ity of tablet 00:00: mouth (two) Medical times Branch daily with meals. diclofenac 2020-0 Yes [id number] 75mg Take 1 [facility] 75 mg EC 7-14 9109 tablet by ity of tablet 00:00: mouth (two) Medical times Branch daily with meals. diclofenac 2020-0 Yes [id number] 75mg Take 1 [facility] 75 mg EC 7-14 9109 tablet by ity of tablet 00:00: mouth (two) Medical times Branch daily with meals. diclofenac 2020-0 Yes [id number] 75mg Take 1 [facility] 75 mg EC 7-14 9109 tablet by ity of tablet 00:00: mouth (two) Medical times Branch daily with meals. diclofenac 2020-0 Yes [id number] 75mg Take 1 [facility] 75 mg EC 7-14 9109 tablet by ity of tablet 00:00: mouth (two) Medical times Branch daily with meals. diclofenac 2020-0 Yes [id number] 75mg Take 1 [facility] 75 mg EC 7-14 9109 tablet by ity of tablet 00:00: mouth (two) Medical times Branch daily with meals. diclofenac 2020-0 Yes [id number] 75mg Take 1 [facility] 75 mg EC 7-14 9109 tablet by ity of tablet 00:00: mouth [place] (two) Medical times Branch daily with meals. diclofenac 2020-0 Yes [id number] 75mg Take 1 [facility] 75 mg EC 7-14 9109 tablet by ity of tablet 00:00: mouth [place] (two) Medical times Branch daily with meals. diclofenac 2020-0 Yes [id number] 75mg Take 1 [facility] 75 mg EC 7-14 9109 tablet by ity of tablet 00:00: mouth (two) Medical times Branch daily with meals. diclofenac 2020-0 Yes [id number] 75mg Take 1 [facility] 75 mg EC 7-14 9109 tablet by ity of tablet 00:00: mouth [place] (two) Medical times Branch daily with meals. diclofenac 2020-0 Yes [id number] 75mg Take 1 [facility] 75 mg EC 7-14 9109 tablet by ity of tablet 00:00: mouth [place] (two) Medical times Branch daily with meals. diclofenac 2020-0 Yes [id number] 75mg Take 1 [facility] 75 mg EC 7-14 9109 tablet by ity of tablet 00:00: mouth 2 (two) Medical times Branch daily with meals. diclofenac 2020-0 Yes [id number] 75mg Take 1 [facility] 75 mg EC 7-14 9109 tablet by ity of tablet 00:00: mouth 2 (two) Medical times Branch daily with meals. diclofenac 2020-0 Yes [id number] 75mg Take 1 [facility] 75 mg EC 7-14 9109 tablet by ity of tablet 00:00: mouth 2 (two) Medical times Branch daily with meals. diclofenac 2020-0 Yes [id number] 75mg Take 1 [facility] 75 mg EC 7-14 9109 tablet by ity of tablet 00:00: mouth 2 (two) Medical times Branch daily with meals. diclofenac 2020-0 Yes [id number] 75mg Take 1 [facility] 75 mg EC 7-14 9109 tablet by ity of tablet 00:00: mouth 2 (two) Medical times Branch daily with meals. diclofenac 2020-0 Yes [id number] 75mg Take 1 [facility] 75 mg EC 7-14 9109 tablet by ity of tablet 00:00: mouth (two) Medical times Branch daily with meals. diclofenac 2020-0 Yes [id number] 75mg Take 1 [facility] 75 mg EC 7-14 9109 tablet by ity of tablet 00:00: mouth (two) Medical times Branch daily with meals. diclofenac 2020-0 Yes [id number] 75mg Take 1 [facility] 75 mg EC 7-14 9109 tablet by ity of tablet 00:00: mouth (two) Medical times Branch daily with meals. amoxicillin 2020-0 Yes [id number] 500mg Take 1 [facility] 500 mg 6-28 capsule by ity of capsule 00:00: mouth (three) Medical times Branch daily. amoxicillin 2020-0 Yes [id number] 500mg Take 1 [facility] 500 mg 6-28 capsule by ity of capsule 00:00: mouth 3 (three) Medical times Branch daily. amoxicillin 2020-0 Yes [id number] 500mg Take 1 [facility] 500 mg 6-28 capsule by ity of capsule 00:00: mouth 3 (three) Medical times Branch daily. amoxicillin 2020-0 Yes [id number] 500mg Take 1 [facility] 500 mg 6-28 capsule by ity of capsule 00:00: mouth (three) Medical times Branch daily. amoxicillin 2020-0 Yes [id number] 500mg Take 1 [facility] 500 mg 6-28 capsule by ity of capsule 00:00: mouth (three) Medical times Branch daily. amoxicillin 2020-0 Yes [id number] 500mg Take 1 [facility] 500 mg 6-28 capsule by ity of capsule 00:00: mouth (three) Medical times Branch daily. amoxicillin 2020-0 Yes [id number] 500mg Take 1 [facility] 500 mg 6-28 capsule by ity of capsule 00:00: mouth (three) Medical times Branch daily. amoxicillin 2020-0 Yes [id number] 500mg Take 1 [facility] 500 mg 6-28 capsule by ity of capsule 00:00: mouth (three) Medical times Branch daily. amoxicillin 2020-0 Yes [id number] 500mg Take 1 [facility] 500 mg 6-28 capsule by ity of capsule 00:00: mouth (three) Medical times Branch daily. amoxicillin 2020-0 Yes [id number] 500mg Take 1 [facility] 500 mg 6-28 capsule by ity of capsule 00:00: mouth () Medical times Branch daily. amoxicillin 2020-0 Yes [id number] 500mg Take 1 [facility] 500 mg 6-28 capsule by ity of capsule 00:00: mouth (three) Medical times Branch daily. amoxicillin 2020-0 Yes [id number] 500mg Take 1 [facility] 500 mg 6-28 capsule by ity of capsule 00:00: mouth (three) Medical times Branch daily. amoxicillin 2020-0 Yes [id number] 500mg Take 1 [facility] 500 mg 6-28 capsule by ity of capsule 00:00: mouth (three) Medical times Branch daily. amoxicillin 2020-0 Yes [id number] 500mg Take 1 [facility] 500 mg 6-28 capsule by ity of capsule 00:00: mouth (three) Medical times Branch daily. amoxicillin 2020-0 Yes [id number] 500mg Take 1 [facility] 500 mg 6-28 capsule by ity of capsule 00:00: mouth 3 (three) Medical times Branch daily. amoxicillin 2020-0 Yes [id number] 500mg Take 1 [facility] 500 mg 6-28 capsule by ity of capsule 00:00: mouth 3 (three) Medical times Branch daily. amoxicillin 2020-0 Yes [id number] 500mg Take 1 [facility] 500 mg 6-28 capsule by ity of capsule 00:00: mouth (three) Medical times Branch daily. amoxicillin 2020-0 Yes [id number] 500mg Take 1 [facility] 500 mg 6-28 capsule by ity of capsule 00:00: mouth (three) Medical times Branch daily. amoxicillin 2020-0 Yes [id number] 500mg Take 1 [facility] 500 mg 6-28 capsule by ity of capsule 00:00: mouth (three) Medical times Branch daily. amoxicillin 2020-0 Yes [id number] 500mg Take 1 [facility] 500 mg 6-28 capsule by ity of capsule 00:00: mouth (three) Medical times Branch daily. amoxicillin 2020-0 Yes [id number] 500mg Take 1 [facility] 500 mg 6-28 capsule by ity of capsule 00:00: mouth (three) Medical times Branch daily. amoxicillin 2020-0 Yes [id number] 500mg Take 1 Univers 500 mg 6-28 [...] daily with meals. mirabegron 2020-0 2020- No [id number] 25mg Take 1 Univers 25 mg 6-05 07-06 tablet by ity of tablet 00:00: 04:59 mouth [place] 00 :00 daily for Medical 30 days. Branch mirabegron 2020-0 2020- No [id number] 25mg Take 1 Univers 25 mg 6-05 07-06 tablet by ity of tablet 00:00: 04:59 mouth [place] 00 :00 daily for Medical 30 days. Branch mirabegron 2020-0 2020- No [id number] 25mg Take 1 Univers 25 mg 6-05 07-06 tablet by ity of tablet 00:00: 04:59 mouth [place] 00 :00 daily for Medical 30 days. Branch mirabegron 2020-0 2020- No [id number] 25mg Take 1 Univers 25 mg 6-05 07-06 tablet by ity of tablet 00:00: 04:59 mouth [place] 00 :00 daily for Medical 30 days. Branch mirabegron 2020-0 2020- No [id number] 25mg Take 1 Univers 25 mg 6-05 07-06 tablet by ity of tablet 00:00: 04:59 mouth [place] 00 :00 daily for Medical 30 days. Branch mirabegron 2020-0 2020- No [id number] 25mg Take 1 Univers 25 mg 6-05 [...] 80 mg 19:00: 17:48 [place] 00 :00 [facility] Branch gentamicin 2019-0 2020- No 80mg 80 mg, IV U nivers injection 05-04 Piggyback, ity of 80 mg 19:00: 17:48 ONCE, 1 [place] 00 :00 dose, Fri [facility] 05/04/19 at [place] [address], W[place]Y
Re ason for Anti-Infec tive: Surgical Prophylaxi s
Surgi ezekiel Prophylaxi s: Genitourin michelle
Dur ation of therapy: within 24 hours of surgery cephALEXin 2020-0 2020- No [id number] 500mg Take 2 Univers 250 mg 05-04- capsules ity of capsule 00:00: 05:59 by mouth [place] 00 :00 every 12 Medical (twelve) Branch hours for 3 days. cephALEXin 2020-0 2020- No [id number] 500mg Take 2 Univers 250 mg 05-04-03 capsules ity of capsule 00:00: 05:59 by mouth [place] 00 :00 every 12 Medical (twelve) Branch hours for 3 days. atorvastati 2020-0 Yes 20mg Take 20 mg Univers n 20 mg 2-20 by mouth ity of tablet 00:00: daily. [address] metoprolol 2020-0 Yes 25mg Take 25 [...] mouth ity of hr capsule 17:20: daily. [place] [address] Medical Branch om 2020-0 Yes Take by Univers 3/E/linol/a 2-14 mouth. ity of la/oleic/gl 17:20: [place] a/lip 21 Medical (OMEGA Branch 3-6-9 ORAL) tamsulosin 2020-0 Yes Take by Uni vers 0.4 mg 24 2-14 mouth ity of hr capsule 17:20: daily. [place] [address] Medical Branch om 2020-0 Yes Take by Univers 3/E/linol/a 2-14 mouth. ity of la/oleic/gl 17:20: [place] a/lip 21 Medical (OMEGA Branch 3-6-9 ORAL) tamsulosin 2020-0 Yes Take by Uni vers 0.4 mg 24 2-14 mouth ity of hr capsule 17:20: daily. [place] [address] Medical Branch om 2020-0 Yes Take by Univers 3/E/linol/a 2-14 mouth. ity of la/oleic/gl 17:20: [place] a/lip 21 Medical (OMEGA Branch 3-6-9 ORAL) tamsulosin 2020-0 Yes Take by Uni vers 0.4 mg 24 2-14 mouth ity of hr capsule 17:20: daily. [place] [address] Medical Branch om 2020-0 Yes Take by Univers 3/E/linol/a 2-14 mouth. ity of la/oleic/gl 17:20: [place] a/lip 21 Medical (OMEGA Branch 3-6-9 ORAL) tamsulosin 2020-0 Yes Take by Uni vers 0.4 mg 24 2-14 mouth ity of hr capsule 17:20: daily. [place] [address] Medical Branch om 2020-0 Yes Take by Univers 3/E/linol/a 2-14 mouth. ity of la/oleic/gl 17:20: [place] a/lip 21 Medical (OMEGA Branch 3-6-9 ORAL) tamsulosin 2020-0 Yes Take by Uni vers 0.4 mg 24 2-14 mouth ity of hr capsule 17:20: daily. [place] [address] Medical Branch om 2020-0 Yes Take by Univers 3/E/linol/a 2-14 mouth. ity of la/oleic/gl 17:20: [place] a/lip 21 Medical (OMEGA Branch 3-6-9 ORAL) tamsulosin 2020-0 Yes Take by Uni vers 0.4 mg 24 2-14 mouth ity of hr capsule 17:20: daily. [place] [address] Medical Branch om 2020-0 Yes Take by Univers 3/E/linol/a 2-14 mouth. ity of la/oleic/gl 17:20: [place] a/lip 21 Medical (OMEGA Branch 3-6-9 ORAL) tamsulosin 2020-0 Yes Take by Uni vers 0.4 mg 24 2-14 mouth ity of hr capsule 17:20: daily. [place] [address] Medical Branch om 2020-0 Yes Take by Univers 3/E/linol/a 2-14 mouth. ity of la/oleic/gl 17:20: [place] a/lip 21 Medical (OMEGA Branch 3-6-9 ORAL) tamsulosin 2020-0 Yes Take by Uni vers 0.4 mg 24 2-14 mouth ity of hr capsule 17:20: daily. [place] [address] Medical Branch om 2020-0 Yes Take by Univers 3/E/linol/a 2-14 mouth. ity of la/oleic/gl 17:20: [place] a/lip 21 Medical (OMEGA Branch 3-6-9 ORAL) tamsulosin 2020-0 Yes Take by Uni vers 0.4 mg 24 2-14 mouth ity of hr capsule 17:20: daily. [place] [address] Medical Branch om 2020-0 Yes Take by Univers 3/E/linol/a 2-14 mouth. ity of la/oleic/gl 17:20: [place] a/lip 21 Medical (OMEGA Branch 3-6-9 ORAL) tamsulosin 2020-0 Yes Take by Uni vers 0.4 mg 24 2-14 mouth ity of hr capsule 17:20: daily. [place] [address] Medical Branch om 2020-0 Yes Take by Univers 3/E/linol/a 2-14 mouth. ity of la/oleic/gl 17:20: [place] a/lip 21 Medical (OMEGA Branch 3-6-9 ORAL) tamsulosin 2020-0 Yes Take by Uni vers 0.4 mg 24 2-14 mouth ity of hr capsule 17:20: daily. [address] om 2020-0 Yes Take by Univers 3/E/linol/a 2-14 mouth. ity of la/oleic/gl 17:20: [place] a/lip 21 Medical (OMEGA Branch 3-6-9 ORAL) tamsulosin 2020-0 Yes Take by Uni vers 0.4 mg 24 2-14 mouth ity of hr capsule 17:20: daily. [address] om 2020-0 Yes Take by Univers 3/E/linol/a 2-14 mouth. ity of la/oleic/gl 17:20: [place] a/lip 21 Medical (OMEGA Branch 3-6-9 ORAL) tamsulosin 2020-0 Yes Take by Uni vers 0.4 mg 24 2-14 mouth ity of hr capsule 17:20: daily. [address] om 2020-0 Yes Take by Univers 3/E/linol/a 2-14 mouth. ity of la/oleic/gl 17:20: [place] a/lip 21 Medical (OMEGA Branch 3-6-9 ORAL) tamsulosin 2020-0 Yes Take by Uni vers 0.4 mg 24 2-14 mouth ity of hr capsule 17:20: daily. [address] om 2020-0 Yes Take by Univers 3/E/linol/a 2-14 mouth. ity of la/oleic/gl 17:20: [place] a/lip 21 Medical (OMEGA Branch 3-6-9 ORAL) tamsulosin 2020-0 Yes Take by Uni vers 0.4 mg 24 2-14 mouth ity of hr capsule 17:20: daily. [address] om 2020-0 Yes Take by Univers [...] mouth ity of hr capsule 17:20: daily. [place] [address] Medical Branch om 2020-0 Yes Take by Univers 3/E/linol/a 2-14 mouth. ity of la/oleic/gl 17:20: [place] a/lip 21 Medical (OMEGA Branch 3-6-9 ORAL) tamsulosin 2020-0 Yes Take by Uni vers 0.4 mg 24 2-14 mouth ity of hr capsule 17:20: daily. [place] [address] Medical Branch om 2020-0 Yes Take by Univers 3/E/linol/a 2-14 mouth. ity of la/oleic/gl 17:20: [place] a/lip 21 Medical (OMEGA Branch 3-6-9 ORAL) tamsulosin 2020-0 Yes Take by Uni vers 0.4 mg 24 2-14 mouth ity of hr capsule 17:20: daily. [place] [address] Medical Branch om 2020-0 Yes Take by Univers 3/E/linol/a 2-14 mouth. ity of la/oleic/gl 17:20: [place] a/lip 21 Medical (OMEGA Branch 3-6-9 ORAL) tamsulosin 2020-0 Yes Take by Uni vers 0.4 mg 24 2-14 mouth ity of hr capsule 17:20: daily. [place] [address] Medical Branch om 2020-0 Yes Take by Univers 3/E/linol/a 2-14 mouth. ity of la/oleic/gl 17:20: [place] a/lip 21 Medical (OMEGA Branch 3-6-9 ORAL) tamsulosin 2020-0 Yes Take by Uni vers 0.4 mg 24 2-14 mouth ity of hr capsule 17:20: daily. [place] [address] Medical Branch om 2020-0 Yes Take by Univers 3/E/linol/a 2-14 mouth. ity of la/oleic/gl 17:20: [place] a/lip 21 Medical (OMEGA Branch 3-6-9 ORAL) tamsulosin 2020-0 Yes Take by Uni vers 0.4 mg 24 2-14 mouth ity of hr capsule 17:20: daily. [place] [address] Medical Branch om 2020-0 Yes Take by Univers 3/E/linol/a 2-14 mouth. ity of la/oleic/gl 17:20: [place] a/lip 21 Medical (OMEGA Branch 3-6-9 ORAL) tamsulosin 2020-0 Yes Take by Uni vers 0.4 mg 24 2-14 mouth ity of hr capsule 17:20: daily. [place] [address] Medical Branch om 2020-0 Yes Take by Univers 3/E/linol/a 2-14 mouth. ity of la/oleic/gl 17:20: [place] a/lip 21 Medical (OMEGA Branch 3-6-9 ORAL) tamsulosin 2020-0 Yes Take by Uni vers 0.4 mg 24 2-14 mouth ity of hr capsule 17:20: daily. [place] [address] Medical Branch om 2020-0 Yes Take by Univers 3/E/linol/a 2-14 mouth. ity of la/oleic/gl 17:20: [place] a/lip 21 Medical (OMEGA Branch 3-6-9 ORAL) tamsulosin 2020-0 Yes Take by Uni vers 0.4 mg 24 2-14 mouth ity of hr capsule 17:20: daily. [place] [address] Medical Branch om 2020-0 Yes Take by Univers 3/E/linol/a 2-14 mouth. ity of la/oleic/gl 17:20: [place] a/lip 21 Medical (OMEGA Branch 3-6-9 ORAL) tamsulosin 2020-0 Yes Take by Uni vers 0.4 mg 24 2-14 mouth ity of hr capsule 17:20: daily. [place] [address] Medical Branch om 2020-0 Yes Take by Univers 3/E/linol/a 2-14 mouth. ity of la/oleic/gl 17:20: [place] a/lip 21 Medical (OMEGA Branch 3-6-9 ORAL) tamsulosin 2020-0 Yes Take by Uni vers 0.4 mg 24 2-14 mouth ity of hr capsule 17:20: daily. [place] [address] Medical Branch om 2020-0 Yes Take by Univers 3/E/linol/a 2-14 mouth. ity of la/oleic/gl 17:20: [place] a/lip 21 Medical (OMEGA Branch 3-6-9 ORAL) tamsulosin 2020-0 Yes Take by Uni vers 0.4 mg 24 2-14 mouth ity of hr capsule 17:20: daily. [place] [address] Medical Branch om 2020-0 Yes Take by Univers 3/E/linol/a 2-14 mouth. ity of la/oleic/gl 17:20: [place] a/lip 21 Medical (OMEGA Branch 3-6-9 ORAL) tamsulosin 2020-0 Yes Take by Uni vers 0.4 mg 24 2-14 mouth ity of hr capsule 17:20: daily. [place] [address] Medical Branch tamsulosin 2020-0 Yes Take by Uni vers 0.4 mg 24 2-14 mouth ity of hr capsule 17:20: daily. [place] [address] Medical Branch om 2020-0 Yes Take by Univers 3/E/linol/a 2-14 mouth. ity of la/oleic/gl 17:20: [place] a/lip 21 Medical (OMEGA Branch 3-6-9 ORAL) om 2020-0 Yes Take by Univers 3/E/linol/a 2-14 mouth. ity of la/oleic/gl 17:20: [place] a/lip 21 Medical (OMEGA Branch 3-6-9 ORAL) tamsulosin 2020-0 Yes Take by Uni vers 0.4 mg 24 2-14 mouth ity of hr capsule 17:20: daily. [place] [address] Medical Branch om 2020-0 Yes Take by Univers 3/E/linol/a 2-14 mouth. ity of la/oleic/gl 17:20: [place] a/lip 21 Medical (OMEGA Branch 3-6-9 ORAL) tamsulosin 2020-0 Yes Take by Uni vers 0.4 mg 24 2-14 mouth ity of hr capsule 17:20: daily. [place] [address] Medical Branch om 2020-0 Yes Take by Univers 3/E/linol/a 2-14 mouth. ity of la/oleic/gl 17:20: [place] a/lip 21 Medical (OMEGA Branch 3-6-9 ORAL) tamsulosin 2020-0 Yes Take by Uni vers 0.4 mg 24 2-14 mouth ity of hr capsule 17:20: daily. [place] [address] Medical Branch om 2020-0 Yes Take by Univers 3/E/linol/a 2-14 mouth. ity of la/oleic/gl 17:20: [place] a/lip 21 Medical (OMEGA Branch 3-6-9 ORAL) tamsulosin 2020-0 Yes Take by Uni vers 0.4 mg 24 2-14 mouth ity of hr capsule 17:20: daily. [place] [address] Medical Branch om 2020-0 Yes Take by Univers 3/E/linol/a 2-14 mouth. ity of la/oleic/gl 17:20: [place] a/lip 21 Medical (OMEGA Branch 3-6-9 ORAL) tamsulosin 2020-0 Yes Take by Uni vers 0.4 mg 24 2-14 mouth ity of hr capsule 17:20: daily. [place] [address] Medical Branch om 2020-0 Yes Take by Univers 3/E/linol/a 2-14 mouth. ity of la/oleic/gl 17:20: [place] a/lip 21 Medical (OMEGA Branch 3-6-9 ORAL) tamsulosin 2020-0 Yes Take by Uni vers 0.4 mg 24 2-14 mouth ity of hr capsule 17:20: daily. [place] [address] Medical Branch om 2020-0 Yes Take by Univers 3/E/linol/a 2-14 mouth. ity of la/oleic/gl 17:20: [place] a/lip 21 Medical (OMEGA Branch 3-6-9 ORAL) tamsulosin 2020-0 Yes Take by Uni vers 0.4 mg 24 2-14 mouth ity of hr capsule 17:20: daily. [place] [address] Medical Branch om 2020-0 Yes Take by Univers 3/E/linol/a 2-14 mouth. ity of la/oleic/gl 17:20: [place] a/lip 21 Medical (OMEGA Branch 3-6-9 ORAL) tamsulosin 2020-0 Yes Take by Uni vers 0.4 mg 24 2-14 mouth ity of hr capsule 17:20: daily. [place] [address] Medical Branch om 2020-0 Yes Take by Univers 3/E/linol/a 2-14 mouth. ity of la/oleic/gl 17:20: [place] a/lip 21 Medical (OMEGA Branch 3-6-9 ORAL) tamsulosin 2020-0 Yes Take by Uni vers 0.4 mg 24 2-14 mouth ity of hr capsule 17:20: daily. [place] [address] [facility] Branch om 2020-0 Yes Take by Univers 3/E/linol/a 2-14 mouth. ity of la/oleic/gl 17:20: [place] a/lip 21 Medical (OMEGA Branch 3-6-9 ORAL) tamsulosin 2020-0 Yes Take by Uni vers 0.4 mg 24 2-14 mouth ity of hr capsule 17:20: daily. [place] [address] [facility] Branch om 2020-0 Yes Take by Univers 3/E/linol/a 2-14 mouth. ity of la/oleic/gl 17:20: [place] a[place] 21 Medical (OMEGA Branch 3-6-9 ORAL) tamsulosin 2020-0 Yes Take by Uni vers 0.4 mg 24 2-14 mouth ity of hr capsule 17:20: daily. [place] [address] [facility] Branch om 2020-0 Yes Take by Univers 3/E/linol/a 2-14 mouth. ity of la/oleic/gl 17:20: [place] a[place] 21 Medical (OMEGA Branch 3-6-9 ORAL) tamsulosin 2020-0 Yes Take by Uni vers 0.4 mg 24 2-14 mouth ity of hr capsule 11:20: daily. [place] [address] [facility] Branch om 2020-0 Yes Take by Univers 3/E/linol/a 2-14 mouth. ity of la/oleic/gl 11:20: [place] alip 21 Medical (OMEGA Branch 3-6-9 ORAL) tamsulosin 2020-0 Yes Take by Uni vers 0.4 mg 24 2-14 mouth ity of hr capsule 11:20: daily. [address] Branch om 2020-0 Yes Take by Univers 3/E/linol/a 2-14 mouth. ity of la/oleic/gl 11:20: [place] a[place] 21 Medical (OMEGA Branch 3-6-9 ORAL) diclofenac 2018-03 2020- No [id number] 75mg Take 1 Univers 75 mg EC 05-03 9109 tablet by ity o f tablet 00:00: 05:59 mouth 2 [place] 00 :00 (two) Medical times [place] daily with meals for 60 days. diclofenac 2018-03 2020- No [id number] 75mg Take 1 Univers 75 mg EC 05-03- 9109 tablet by ity o f tablet 00:00: 05:59 mouth 2 [place] 00 :00 (two) Medical times Branch daily with meals for 60 days. diclofenac 2018-03 2020- No [id number] 75mg Take 1 Univers 75 mg EC 05-03 9109 tablet by ity o f tablet 00:00: 05:59 mouth 2 [place] 00 :00 (two) Medical times Branch daily with meals for 60 days. diclofenac 2018-03 2020- No [id number] 75mg Take 1 Univers 75 mg EC 205-02 9109 tablet by ity o f tablet 00:00: 05:59 mouth 2 [place] 00 :00 (two) Medical times Branch daily with meals for 60 days. diclofenac Yes [id number] 75mg Take 1 Univers 75 mg EC 8-28 9109 tablet by ity of tablet 00:00: mouth 2 [place] 00 (two) Medical times Branch daily with meals. diclofenac Yes [id number] 75mg Take 1 Univers 75 mg EC 8- 9109 tablet by ity of tablet 00:00: mouth 2 [place] 00 (two) Medical times Branch daily with meals. diclofenac Yes [id number] 75mg Take 1 Univers 75 mg EC 8- 9109 tablet by ity of tablet 00:00: mouth 2 [place] 00 (two) Medical times Branch daily with meals. diclofenac 2019- No [id number] 75mg Take 1 Univers 75 mg EC [...] Branch 28 DAYS atorvastati atorvastati No atorvastat [facility] n 20 mg n 20 mg in [...] route. hydrocodone hydrocodone No 1 Q4H hydrocmiguel [facility] 10 10 e 10 Family mg-acetamin mg-acetamin mg-acetami Practic ophen 325 ophen 325 nophen 325 e mg tablet mg tablet mg tablet Take 1 Take 1 Take 1 tablet tablet tablet every 4 every 4 every 4 hours by hours by hours by oral route. oral route. oral route. hydrocodone [facility]codone [facility] 5 5 e 5 Family mg-acetamin mg-acetamin mg-acetami Practic ophen 325 ophen 325 nophen 325 e mg tablet mg tablet mg tablet TAKE 1 TAKE 1 TAKE 1 TABLET BY TABLET BY TABLET BY MOUTH THREE MOUTH THREE MOUTH TIMES DAILY TIMES DAILY THREE TIMES DAILY metoprolol metoprolol No metoprolol [facility] tartrate 25 tartrate 25 tartrate Family mg tablet mg tablet 25 mg Prac tic TAKE 1 TAKE 1 tablet e TABLET BY TABLET BY TAKE 1 MOUTH TWICE MOUTH TWICE TABLET BY DAILY DAILY MOUTH TWICE DAILY Myrbetriq Myrbetriq No Myrbetriq [facility] 25 mg 25 mg 25 mg Family [...] by oral route. Pneumovax-2 Pneumovax-2 No Pneumovax- [facility] 3 25 3 25 23 25 Family mcg/0.5 mL mcg/0.5 mL mcg/0.5 mL Practic injection injection injection e syringe syringe syringe PHARMACIST PHARMACIST PHARMACIST ADMINISTERE ADMINISTERE ADMINISTER D D ED IMMUNIZATIO IMMUNIZATIO IMMUNIZATI N N ON ADMINISTERE ADMINISTERE ADMINISTER D AT TIME D AT TIME ED AT TIME OF OF OF DISPENSING DISPENSING DISPENSING prednisone prednisone No prednisone [facility] 5 mg tablet 5 mg tablet 5 [...] DISPENSING DISPENSING DISPENSING tamsulosin tamsulosin No tamsulosin [facility] 0.4 mg 0.4 mg 0.4 mg Family [...] DAILY DAILY No known No Univers medications [facility] No known No Univers medications [facility] Immunizations Ordered Immunization Filled Immunization Date Status Commen ts Source Name Name pneumococcal pneumococcal 2019-03-31 Completed [facility] polysaccharide PPV23 polysaccharide PPV23 00:00:00 Practice Tdap Tdap 2019-03-07 Completed [facility] Family 00:00:00 Practice Vital Signs Vital Name Observation Time Observation Value Comments Source BP Diastolic 2020-03-10 00:00:00 68 mm[Hg] [facility] Height 2020-03-10 00:00:00 68 [in_i] [facility] BMI (Body Mass 2020-03-10 00:00:00 27.4 kg/m2 Vill e Family Index) Practice BP Systolic 2020-03-10 00:00:00 126 mm[Hg] [facility] Body Weight 2020-03-10 00:00:00 180 [lb_av] [facility] WEIGHT 2020-01-03 04:20:00 81.194 kg WEIGHT [...] 19:40:00 150 mm[Hg] Univer sity of [facility] Diastolic blood 2019-11-07 19:40:00 74 mm[Hg] Unive rsity of pressure [facility] Heart rate 2019-11-07 19:40:00 76 /min Universi [facility] Body temperature 2019-11-07 19:40:00 36.44 Natalie Univ ersFormerly [facility] Respiratory rate 2019-11-07 19:40:00 18 /min Univ ersFormerly [facility] Body weight 2019-11-07 19:40:00 81.647 kg [...] 2019-09-24 20:24:00 63 /min Universi ty of [facility] Body temperature 2019-09-24 20:24:00 36.11 Natalie Univ ersity of [facility] Systolic blood 2019-09-21 20:41:00 149 mm[Hg] Univer sity of pressure [facility] Diastolic blood 2019-09-21 20:41:00 79 mm[Hg] Unive rsity of pressure [facility] Heart rate 2019-09-21 20:41:00 64 /min Universi ty of [facility] Body temperature 2019-09-21 20:41:00 35.78 Natalie Univ ersity of [facility] Respiratory rate 2019-09-21 20:41:00 18 /min Univ ersity of [facility] Body weight 2019-09-21 20:41:00 81.829 kg Universi ty of [facility] BMI 2019-09-21 20:41:00 25.88 kg/m2 Universi ty of [facility] Systolic blood 2019-09-02 11:05:00 188 mm[Hg] Univer sity of pressure [facility] Diastolic blood 2019-09-02 11:05:00 85 mm[Hg] Unive rsity of pressure [facility] Heart rate 2019-09-02 11:05:00 84 /min Universi ty of [facility] Body temperature 2019-09-02 11:05:00 36.89 Natalie Univ ersity of [facility] Respiratory rate 2019-09-02 11:05:00 16 /min Univ ersity of [facility] Body height 2019-09-02 11:05:00 177.8 cm Universi ty of [facility] Body weight 2019-09-02 11:05:00 79.379 kg Universi ty of [facility] BMI 2019-09-02 11:05:00 25.11 kg/m2 Universi ty of [facility] Oxygen saturation in 2019-09-02 11:05:00 99 /min University of Arterial blood by [facility] Pulse oximetry Branch Body temperature 2019-08-10 20:51:00 36.61 Natalie Univ ersity of [facility] Respiratory rate 2019-08-10 20:51:00 22 /min Univ ersity of [facility] Body weight 2019-08-10 20:51:00 80.797 kg Universi ty of [facility] BMI 2019-08-10 20:51:00 27.08 kg/m2 Universi ty of [place] [facility] Oxygen saturation in 2019-08-10 20:51:00 96 /min University of Arterial blood by [facility] Pulse oximetry Branch Systolic blood [...] 98 /min University of Arterial blood by [facility] Pulse oximetry Branch Systolic blood [...] 98 /min University of Arterial blood by [facility] Pulse oximetry Branch Systolic blood [...] 2019-04-20 17:14:00 36.67 Natalie Univ ersity of [facility] Branch Respiratory rate 2019-04-20 17:11:00 20 /min Univ ersity of [place] [facility] Body height 2019-04-20 17:11:00 172.7 cm Universi ty of [place] [facility] Body weight 2019-04-20 17:11:00 77.565 kg Universi ty [facility] [place] [facility] BMI 2019-04-20 17:11:00 26.00 kg/m2 Universi ty of [place] [facility] Oxygen saturation in 2019-04-20 17:11:00 98 /min University of Arterial blood by [facility] Pulse oximetry Branch Systolic blood [...] Univ ersity of [place] RELEASE OF PHI [facility] COMP. METABOLIC PANEL 2019-09-02 11:21:00 [place] Mccall [facility] ([id number]) [facility] CBC WITH DIFFERENTIAL 2019-09-02 11:21:00 [place] Mccall [facility] URINALYSIS 2019-09-02 11:21:00 Singer [place] [facility] NOTICE OF PRIVACY 2019-09-02 10:54:46 Doctor Unassigned, No [facility] PRACTICES Name [facility] CONSENT/REFUSAL FOR 2019-09-02 10:54:27 Doctor Unassigned, No [facility] PHYSICIAN ORDERS 2019-05-24 05:01:00 Doctor Unassigned, No [facility] POCT URINALYSIS AUTO 2019-05-04 17:32:00 Robbie Car [facility] DISCLOSURE AND CONSENT, 2019-05-04 06:01:00 Doctor Unassigned, N o [facility] MEDICAL AND SURGICAL [facility] Medical [facility] nch PROCEDURES POCT URINALYSIS AUTO 2019-04-20 17:08:00 Robbie Car [facility] ASSIGNMENT OF BENEFITS 2019-04-20 16:53:27 Doctor Unassigned, No [facility] REFERRAL- 2018-10-04 05:01:00 Doctor Unassigned, No [facility] REQUEST/RESPONSE [facility] REFUSAL OF NON-MEDICAL 2018-04-20 06:01:00 Doctor Unassigned, No [facility] SERVICES [facility] Plan of Care Planned Activity Planned Date Details Comments Source Instructions [facility] Encounters Start End Encounter Admission Attending Care Care Encounter Source Date/Time Date/Time Type Type Clinicians Facility Department ID 2021-01-02 Emergency [facility] [id number] Univers [facility] 2021-01-02 Emergency [facility] [id number] Univers 03:17:11 [facility] 2020-12-10 Inpatient ER NIA MIRANDA Surgery [id number] SLE 12:16:46 ZOYA 2020-12-10 Inpatient ER COLT MOLINA Gastro [id number] [facility] 12:16:10 [facility] 2021-01-07 2021-01-07 [facility] 1.2.840.114 [id number] Univers 00:00:00 00:00:00 Eduardo Sandhu HEALTH 350.1.13.10 it y of [place] 4.2.7.2.686 Bran as ARISTEO?BLEA [id number] Vt delia THOMAS [address] [place] [address] 2021-01-05 2021-01-05 Telephone GrantReplaced by [facility] 1.2.840.114 [id number] Univers 00:00:00 00:00:00 Eduardo Sandhu HEALTH 350.1.13.10 it y of [place] 4.2.7.2.686 Bran as ARISTEO?BLEA [phone] Vt delia THOMAS [address] [place] [address] 2020-10-14 2020-10-14 [place] GrantReplaced by [facility] 1.2.840.114 [id number] Univers 00:00:00 00:00:00 Eduardo Sandhu Health 350.1.13.10 it y of Surgical 4.2.7.2.686 Bran as Specialti [phone] Vt delia bowen [address] [facility] 2020-10-09 2020-10-09 [place] GrantReplaced by [facility] 1.2.840.114 [id number] Univers 00:00:00 00:00:00 Eduardo Sandhu Health 350.1.13.10 it y of Surgical 4.2.7.2.686 [place] as Specialti [id number] Vt pemaal es [address] [facility] 2020-09-11 2020-09-11 [facility] 1.2.840.114 [id number] Univers 00:00:00 00:00:00 [facility] 350.1.13.10 it y of Surgical 4.2.7.2.686 [place] as Specialti [id number] Vt dical es [address] [facility] 2020-08-14 2020-08-14 Michael [facility] 1.2.840.114 [id number] Univers 00:00:00 00:00:00 [facility] 350.1.13.10 it y of Surgical 4.2.7.2.686 [place] as Specialti [id number] Me dical es [address] [place] 2020-07-07 2020-07-07 Telephone [facility] 1.2.840.114 [id number] [facility] 00:00:00 00:00:00 Eduardo Sanhdu [facility] 350.1.13.10 it y of Surgical 4.2.7.2.686 Bran as Specialti [id number] Vt dical es [address] [place] 2020-07-07 2020-07-07 Telephone [facility] 1.2.840.114 [id number] 00:00:00 00:00:00 Eduardo [facility] 350.1.13.10 Surgical 4.2.7.2.686 Specialti [id number] es [address] [place] 2020-06-12 2020-06-12 Outpatient Ajibade_O_A VFP VFP [id number] [facility] 10:56:00 10:56:00 H [address]47 [facility] 2020-05-26 2020-05-26 Telephone [facility] 1.2.840.114 [id number] Univers 00:00:00 00:00:00 Eduardo [facility] 350.1.13.10 it y of Surgical 4.2.7.2.686 Bran as Specialti [id number] Vt dical es 198 [address] [place] 2020-05-26 2020-05-26 Telephone [facility] 1.2.840.114 [id number] 00:00:00 00:00:00 Eduardo [facility] 350.1.13.10 Surgical 4.2.7.2.686 Specialti [id number] es [address] [place] 2020-03-20 2020-03-20 Outpatient Ajibade_O_A VFP VFP [id number] Village 05:22:00 05:22:00 H 50504 Family Practic e 2020-03-20 2020-03-20 Outpatient Ajibade_O_A VFP VFP [id number] [place] 05:22:00 05:22:00 H 76479 Family Practic e 2020-03-20 2020-03-20 Outpatient Ajibade_O_A VFP VFP [phone] [facility] 05:22:00 05:22:00 H 16740 Family Practic e 2020-03-20 2020-03-20 Telephone Kory OKPAMELLA [id number] [facility] 00:00:00 00:00:00 [facility] 350.1.13.10 it y of Surgical 4.2.7.2.686 Bran as Specialti [id number] Vt dical es [address] [facility] 2020-03-20 2020-03-20 Telephone [facility] 1.2.547.595 [id number] 00:00:00 00:00:00 [facility] 350.1.13.10 Surgical 4.2.7.2.686 Specialti [id number] es [address] [place] 2020-03-10 2020-03-10 Outpatient Ajibade_O_A VFP [facility] 796 [facility]202 [facility] 11:19:00 11:19:00 H 91754 Family Practic e 2020-03-10 2020-03-10 [facility] [place] - [id number] V illage 00:00:00 00:00:00 Leo Sanchez Famil y SENIOR PHYSICAL THERAPIST: 9235 Medical - Pract ic Nithya Arteaga, [email or web address] [facility] [id number] , Ph. 2020-02-18 2020-02-18 Orders Doctor NIRAV 1.2.840.114 [id number] [facility] 00:00:00 00:00:00 Only Unassigned, KENNETH 350.1.13.10 ity of [place] [facility] 4.2.7.2.686 Bran as [id number] [address] 2020-02-18 2020-02-18 Orders Doctor NIRAV 1.2.840.114 [id number] 00:00:00 00:00:00 Only Unassigned, KENNETH 350.1.13.10 [facility] 4.2.7.2.686 [id number] [facility] 2020-01-28 2020-01-28 Telephone Kory [facility] 1.2.443.427 [id number] [facility] 00:00:00 00:00:00 [facility] 350.1.13.10 it y of Surgical 4.2.7.2.686 Bran as Specialti [id number] Me dical es [address] [facility] 2020-01-28 2020-01-28 Telephone [facility] 1.2.344.103 [id number] 00:00:00 00:00:00 [facility] 350.1.13.10 Surgical 4.2.7.2.686 Specialti [id number] es [address] [place] 2019-12-28 2019-12-28 Emergency ER [facility] Emergency [id number] [facility] 20:07:00 20:07:00 2019-12-21 2019-12-21 [facility] 1.2.840.114 [id number] Univers 00:00:00 00:00:00 [facility] 350.1.13.10 i ty [place] [phone] Me dical nal [address] [place] [address] 2019-12-21 2019-12-21 Telephone [facility] 1.2.840.114 [id number] 00:00:00 00:00:00 [facility] 350.1.13.10 [place] 4.2.7.2.[address] Professio [phone] 2019-12-20 2019-12-20 [facility] [id number] Q-20 Univers 09:30:00 09:30:00 [facility] [id number] [facility] 2019-12-20 2019-12-20 [facility] [id number] Univers 09:30:00 09:30:00 [facility] 2019-12-10 2019-12-10 [facility] [id number] Q-20 Univers 15:15:00 15:15:00 [facility] 2019-12-10 2019-12-10 [facility] [id number] Univers 15:15:00 15:15:00 [facility] 2019-12-07 2019-12-07 Outpatient R [facility] [id number] Univers 13:00:00 13:00:00 ity [facility] 2019-12-07 2019-12-07 Outpatient R JOYCE [facility] [id number] Univers 13:00:00 13:00:00 ROBBIE ity [facility] 2019-12-07 2019-12-07 Nurse Nurse, [facility] Surgery [facility] 1.2. 840.114 [id number] [facility] 10:38:50 11:10:03 Visit Robbie Car 350.1.13.10 ity [place] [id number] [address] 2019-12-07 2019-12-07 Nurse Nurse, [facility] 1.2.840.114 [id number] 10:38:50 11:10:03 Visit Surgery Gu [place] 350.1.13.10 [place] 4.2.7.2.686 Professio [id number] 2019-11-20 2019-11-20 Nurse Nurse, [facility] Surgery [facility] 1.2. 840.114 [id number] [facility] 13:06:00 13:52:14 Visit Robbie Car 350.1.13.10 ity [place] [id number] [address] 2019-11-20 2019-11-20 Nurse Nurse, [facility] 1.2.840.114 [id number] 13:06:00 13:52:14 Visit Surgery Gu [place] 350.1.13.10 [place] 4.2.7.2.686 Professio [id number] [address] 2019-11-20 2019-11-20 Outpatient R [facility] [id number] Univers 13:00:00 13:00:00 [id number] ity [facility] 2019-11-20 2019-11-20 Outpatient R JOYCE [facility] [id number] Univers 13:00:00 13:00:00 [facility] ity [facility] 2019-11-07 2019-11-07 Nurse Nurse, [facility] Surgery [facility] 1.2. 840.114 [id number] Univers 14:34:31 14:49:31 Visit Robbie Car 350.1.13.10 ity [place]2.[place] [id number] [address] 2019-11-07 2019-11-07 Nurse Nurse, [facility] 1.2.840.114 [id number] 14:34:31 14:49:31 Visit Shree Kendrick 350.1.13.10 [place] 4.2.7.2.686 Professio [phone] [address] 2019-11-07 2019-11-07 Outpatient R [facility] [id number] Univers 14:15:00 14:15:00 ity [facility] 2019-11-07 2019-11-07 Outpatient [facility] [id number] Univers 11:00:00 11:00:00 ity [facility] 2019-11-07 2019-11-07 Outpatient R [facility] [id number] Univers 11:00:00 11:00:00 [facility] 2019-11-01 2019-11-01 Outpatient Ajibade_O_A VFP VFP [id number] [facility] 04:47:00 04:47:00 H 26525 Family Practic e 2019-09-24 2019-09-24 Office [facility] 1.2.840.114 [id number] Univers 15:17:44 17:03:35 Visit Robbie [place] 350.1.13.10 i ty [place] [phone] [address] 2019-09-24 2019-09-24 Office [facility] 1.2.840.114 [id number] 15:17:44 17:03:35 Visit Robbie Kendrick 350.1.13.10 [place] 4.2.7.2.[address] Professio [phone] 2019-09-24 2019-09-24 [facility] [id number] Q-20 Univers 16:00:00 16:00:00 [facility] ity [facility] 2019-09-24 2019-09-24 Outpatient R JOYCE [facility] [id number] Univers 16:00:00 16:00:00 ROBBIE ity [facility] 2019-09-21 2019-09-21 Office Joyce [facility] 1.2.840.114 [id number] Univers 15:33:57 16:14:10 Visit Robbie [place] 350.1.13.10 i ty [place] [phone] Vt dical nal [address] [place] [address] 2019-09-21 2019-09-21 Outpatient R JOYCE [facility] [id number] Univers 16:00:00 16:00:00 ROBBIE ity of [facility] 2019-09-21 2019-09-21 Outpatient R JOYCE [facility] [id number] Q-20 Univers 11:00:00 11:00:00 [facility] [id number] ity of [facility] 2019-09-19 2019-09-19 Nurse Nurse, [facility] 1.2. 840.114 [id number] Univers 10:50:18 11:21:35 Visit Robbie Car [place] 350.1.13.10 ity [place].2.[place] [id number] Vt dical nal [address] [place] [address] 2019-09-19 2019-09-19 Outpatient R [facility] [id number] Univers 10:45:00 10:45:00 [id number] ity of [facility] 2019-09-19 2019-09-19 Outpatient R [facility] [id number] Univers 10:45:00 10:45:00 ity of [facility] 2019-09-17 2019-09-17 [facility] 1.2.586.221 [id number] Univers 00:00:00 00:00:00 Eduardo Sandhu [facility] 350.1.13.10 it y of Surgical 4.2.7.2.686 Bran as Specialti [phone] Vt dical es [address] [facility] 2019-09-17 2019-09-17 Refradha [facility] 1.2.864.115 [id number] 00:00:00 00:00:00 Eduardo Sandhu [employer] 350.1.13.10 Surgical 4.2.7.2.686 Specialti [id number] es [address] [place] 2019-09-02 2019-09-02 Emergency Singer [facility] [id number] Univers 05:59:14 07:38:00 [place] Kendrick 350.1.13.10 i ty [place] [phone] [facility] [address] [place] 2019-09-02 2019-09-02 Orders Doctor NIRAV 1.2.840.114 [id number] Univers 00:00:00 00:00:00 Only Unassigned, KENNETH 350.1.13.10 ity of [place] [facility] 4.2.7.2.686 Bran as [phone] [facility] 00[address] [place] 2019-08-30 2019-08-30 Telephone [facility] 1.2.840.114 [id number] Univers 00:00:00 00:00:00 Eduardo Elliott 350.1.13.10 it y of Surgical 4.2.7.2.686 Bran as Specialti [id number] Vt dical es [address] [facility] 2019-08-24 2019-08-24 [facility] [id number] Q-20 Univers 14:00:00 14:00:00 ROBBIE [id number] ity [facility] 2019-08-24 2019-08-24 [facility] [id number] Univers 14:00:00 14:00:00 [facility] 2019-08-10 2019-08-10 Office [facility] 1.2.840.114 [id number] Univers 15:15:27 16:21:06 Visit Robbie Kendrick 350.1.13.10 i ty [place]2.[place] [facility] [phone] Me dical nal [address] [facility] 2019-08-10 2019-08-10 [facility] [id number] Q-[id number] Univers 16:00:00 16:00:00 ROBBIE ity [facility] 2019-08-10 2019-08-10 Outpatient R JOYCE [facility] [id number] Univers 16:00:00 16:00:00 ROBBIE ity of [facility] 2019-07-23 2019-07-23 Outpatient R JOYCE [facility] [id number] Q-20 Univers 10:00:00 10:00:00 ROBBIE [id number] ity [facility] 2019-07-23 2019-07-23 Outpatient R JOYCE [facility] [id number] Univers 10:00:00 10:00:00 [facility] 2019-07-09 2019-07-09 Office [facility] 1.2.840.114 [id number] Univers 10:27:37 11:55:27 Visit [facility] 350.1.13.10 i ty [facility] 4.2.7.2.686 [place] Professio [id number] Vt dical [address] 2019-07-09 2019-07-09 Outpatient R JOYCE [facility] [id number] Q-[id number] Univers 11:00:00 11:00:00 [facility] [facility] [id number] [facility] 2019-07-09 2019-07-09 Outpatient R JOYCE [facility] [id number] Univers 11:00:00 11:00:00 [facility] 2019-07-04 Outpatient R [facility] [id number] -[id number] Univers 09:00:00 09:00:00 [id number] ity [facility] 2019-07-04 2019-07-04 Outpatient R [facility] [id number] Univers 09:00:00 09:00:00 ity of [facility] 2019-07-03 2019-07-03 Outpatient R [facility] [id number] -[id number] Univers 10:00:00 10:00:00 [id number] ity of [facility] 2019-07-03 2019-07-03 Outpatient R [facility] [id number] Univers 10:00:00 10:00:00 ity [facility] 2019-07-03 2019-07-03 Nurse Nurse, [facility] Surgery [facility] 1.2. 840.114 [id number] Univers 09:29:30 09:53:59 Visit Robbie Cra 350.1.13.10 [place] [phone] Vt dical nal [address] [facility] 2019-06-18 2019-06-18 Telephone Juanita [facility] 1.2.840.114 [id number] Univers 00:00:00 00:00:00 [facility] 350.1.13.10 it y of Surgical 4.2.7.2.686 [place] as Specialti [phone] Vt dical es 198 [facility] 2019-06-06 2019-06-06 Nurse Nurse, [facility] Surgery [facility] 1.2. 840.114 [id number] Univers 09:58:45 10:28:51 Visit Robbie Car 350.1.13.10 [place] [phone] Vt dical nal 204 [facility] 2019-06-06 2019-06-06 Outpatient R [facility] [id number] -[id number] Univers 09:45:00 09:45:00 [id number] ity of [facility] 2019-06-06 2019-06-06 [facility] [id number] Univers 09:45:00 09:45:00 ROBBIE ity [facility] 2019-06-06 2019-06-06 [facility] 1.2.974.131 [id number] Univers 00:00:00 00:00:00 Gloria Fernandez Mireille 350.1.13.10 [place] [phone] Vt dical nal [address] [facility] 2019-05-24 2019-05-24 [facility] [id number]-20 Univers 16:15:00 16:15:00 ROBBIE [id number] ity [facility] 2019-05-24 2019-05-24 [facility] [id number] Univers 16:15:00 16:15:00 ROBBIE ity [facility] 2019-05-24 2019-05-24 Office [facility] 1.2.840.114 [id number] Univers 12:43:32 14:03:24 Visit Robbie Olalla 350.1.13.10 i [place] [phone] Vt dical [facility] [address] [facility] 2019-05-24 2019-05-24 Outpatient R [facility] [id number] Univers 13:00:00 13:00:00 ROBBIE ity [facility] 2019-05-24 2019-05-24 Orders Doctor NIRAV 1.2.840.114 [id number] Univers 00:00:00 00:00:00 Only Unassigned, KENNETH 350.1.13.10 ity of [facility] 4.2.7.2.686 [place] as [phone] [address] 2019-05-21 2019-05-21 Telephone [facility] 1.2.840.114 [id number] Univers 00:00:00 00:00:00 [facility] 350.1.13.10 it y of Surgical 4.2.7.2.686 [place] Specialti [phone] Vt dical es 198 [facility] 2019-05-04 2019-05-04 Office Joyce [facility] 1.2.840.114 [id number] Univers 11:01:36 12:30:18 Visit Rm, Adc Surg Spec Procedure [place] 3 50.1.13.10 [place] [phone] Vt dic[address] 2019-05-04 2019-05-04 Outpatient R [facility] [id number] Univers 11:00:00 11:00:00 ROBBIE ity [facility] 2019-05-04 2019-05-04 Orders Doctor GASTELUM 1.2.840.114 [id number] Univers 00:00:00 00:00:00 Only Unassigned, KENNETH 350.1.13.10 ity of [facility] 4.2.7.2.686 Bran as [phone] [address] 2019-04-25 2019-04-25 Outpatient [facility] [id number] [facility] 07:22:00 07:22:00 _J_ [id number] Family Practic e 2019-04-24 2019-04-24 Outpatient PAUL, [facility] [id number] [place] 00:00:00 00:00:00 JULIET [facility] 2019-04-23 2019-04-23 Telephone Joyce [facility] 1.2.840.114 [id number] Univers 00:00:00 00:00:00 [facility] 350.1.13.10 [place] [phone] Vt dical nal [address] [facility] 2019-04-20 2019-04-20 Outpatient R JOYCE [facility] [id number] Univers 11:00:00 12:03:25 ROBBIE ity [facility] 2019-04-20 2019-04-20 [facility] 1.2.840.114 [id number] Univers 10:57:47 12:03:25 Visit [facility] 350.1.13.10 i [place] [phone] Vt dical nal 204 [facility] 2019-04-20 2019-04-20 Orders Doctor NIRAV 1.2.840.114 [id number] Univers 00:00:00 00:00:00 Only Unassigned, KENNETH 350.1.13.10 ity of [facility] 4.2.7.2.686 Bran as [phone] [address] 2018-10-31 2018-10-31 [facility] 1.2.288.192 [id number] Univers 00:00:00 00:00:00 EduardoNeoChord 350.1.13.10 it y of Surgical 4.2.7.2.686 [place] as Specialti [phone] Vt dical es 198 [facility] 2018-10-06 2018-10-06 Office Juanita [facility] 1.2.623.935 [id number] Univers 08:24:12 09:20:41 Visit Eduardo L [employer] 350.1.13.10 it y of Surgical 4.2.7.2.686 [place] as Specialti [phone] Vt dical es [address] [place] 2018-10-04 2018-10-04 Orders Doctor NIRAV Costa.2.840.114 [id number] Univers 00:00:00 00:00:00 Only Unassigned, KENNETH 350.1.13.10 ity of [facility] 4.2.7.2.686 Bran as [phone] [facility] 00[address] [place] 2018-04-20 2018-04-20 Orders Doctor NIRAV 1.2.840.114 [id number] Univers 00:00:00 00:00:00 Only Unassigned, KENNETH 350.1.13.10 ity of [facility] 4.2.7.2.686 Bran as [phone] [address] Results Test Description Test Time Test Comments Results Result Comments Source BLOOD CULTURE 2020-01-03 10:00:00 Test Item Value Reference Range Interpretation Comme nts CULTURE (BEAKER) (test code = 1095) No growth in 5 days BLOOD [id number] 10:00:00 Test Item Value Reference Range Interpretation Comments CULTURE (BEAKER) (test No growth in 5 days code = 1095) CT, CTA, [id number] 09:40:00Unlisted Reason for Exam - Click Yes and Enter Reason Below->YesUnlisted Reason for Exam->s/p TAVR and SAVR with gradientDOCTORS [facility]OSPITAL OF MANTECAName: TREV STONE : 1935 Sex: MAddendum BeginsREPORT [...] dictated regarding the non-vascular findings by the Die Maintenance Radiologist. Major vascular findings were discussed with Dr. Vallaadres at the time of dictation. Signed: Edwardo East Verified Date/Time: 01/02/2020 16:43:17 Reading Location: [place] [address] [place] Reading Room [facility] METABOLIC [id number] 07:24:00 Test Item Value Reference Range Interpretation [...] S NOT APPLICABLE FOR DIALYSIS PATIEN TS. Director Of Clinical Education ID - QUINCY [id number] 07:24:00 Test Item Value Reference Range Interpretation Comments MAGNESIUM (BEAKER) (test code = 1.8 mg/dL 1.6-2.6 627) Director Of Clinical Education ID - QUINCY [id number] 07:24:00 Test Item Value Reference Range Interpretation Comments PHOSPHORUS (BEAKER) (test code = 2.7 mg/dL 2.3-4.7 604) Director Of Clinical Education ID - QUINCY FPROTHROMBIN TIME/[id number] 07:00:00 Test Item Value Reference Range Interpretation [...] valves.While on warfarin.CBC W/PLT COUNT & AUTO [id number] 06:56:00 Test Item Value Reference Range Interpretation [...] PERCENT (BEAKER) (test code = 2801) PROTHROMBIN [id number] 18:01:00 Test Item Value Reference Range Interpretation [...] INR is2.5-3.5 for patients wiht mechanical heart valves.[id number] 06:38:00 Test Item Value Reference Range Interpretation Comments MAGNESIUM (BEAKER) (test code = 1.8 mg/dL 1.6-2.6 627) Director Of Clinical Education ID - EDASICOMPREHENSIVE METABOLIC [id number] 06:38:00 Test Item Value Reference Range Interpretation [...] S NOT APPLICABLE FOR DIALYSIS PATIEN TS. Director Of Clinical Education ID - [id number] 06:38:00 Test Item Value Reference Range Interpretation Comments PHOSPHORUS (BEAKER) (test code = 2.7 mg/dL 2.3-4.7 604) Director Of Clinical Education ID - EDASICBC W/PLT COUNT & AUTO [id number] 06:03:00 Test Item Value Reference Range Interpretation [...] PERCENT (BEAKER) (test code = 2801) MRSA [id number] 15:50:00 Test Item Value Reference Range Interpretation Comments CULTURE (BEAKER) (test code No MRSA isolated = 1095) FL, ESOPH, SWALLOW FUNCTION, WITH CINE OR [id number] 15:38:00D/c NGT prior to the study and then attemptReason for exam:->dysphagea [facility] 1935 Sex: MFINAL [...] Wilkinson Verified Date/Time: 01/01/2020 15:38:45 Reading Location: [address] Reading Room [id number] 06:21:00 Test Item Value Reference Range Interpretation Comments MAGNESIUM (BEAKER) (test code = 1.9 mg/dL 1.6-2.6 627) Director Of Clinical Education ID - edasiCOMPREHENSIVE METABOLIC [id number] 06:21:00 Test Item Value Reference Range Interpretation [...] S NOT APPLICABLE FOR DIALYSIS PATIEN TS. Director Of Clinical Education ID - [id number] 06:21:00 Test Item Value Reference Range Interpretation Comments PHOSPHORUS (BEAKER) (test code = 1.8 mg/dL 2.3-4.7 L 604) Director Of Clinical Education ID - edasiCBC W/PLT COUNT & AUTO [id number] 05:52:00 Test Item Value Reference Range Interpretation [...] PERCENT (BEAKER) (test code = 2801) POCT-GLUCOSE [id number] 19:08:00 Test Item Value Reference Range Interpretation Comments POC-GLUCOSE METER 73 mg/dL 70-110 : TESTED Rebecca Jason [facility] 6720 (BEAKER) (test code = [place], 1538) 718[address]: Director Of Clinical Education/Techni cory ID = [id number] for ALEXANDRO EPSTEIN POCT-GLUCOSE [id number] 14:49:00 Test Item Value Reference Range Interpretation Comments POC-GLUCOSE METER 74 mg/dL 70-110 : TESTED A T [facility] 6720 (BEAKER) (test code = CHAKA Cheung [facility], 1538) [address]296: Director Of Clinical Education/Techni cory ID = [id number] for BRETT-STAFFOR TienGENGISSELLE MRSA [id number] 12:26:00 Test Item Value Reference Range Interpretation Comments CULTURE (BEAKER) (test code No MRSA isolated = 1095) SPUTUM CULTURE + GRAM [id number] 12:26:00 Test Item Value Reference Range Interpretation Comments CULTURE (BEAKER) 1+ Normal respiratory (test code = 1095) regina present GRAM STAIN RESULT 4+ WBCs (BEAKER) (test code = 1123) GRAM STAIN RESULT 0-5 epithelial cells (BEAKER) (test code = 24687) GRAM STAIN RESULT <1+ gram positive cocci (BEAKER) (test code = in pairs and clusters 73084) COMPREHENSIVE METABOLIC [id number] 06:48:00 Test Item Value Reference Range Interpretation [...] S NOT APPLICABLE FOR DIALYSIS PATIEN TS. Director Of Clinical Education ID - MERON [id number] 06:48:00 Test Item Value Reference Range Interpretation Comments MAGNESIUM (BEAKER) (test code = 2.0 mg/dL 1.6-2.6 627) Director Of Clinical Education ID - PIENRIKE [id number] 06:48:00 Test Item Value Reference Range Interpretation Comments PHOSPHORUS (BEAKER) (test code = 2.0 mg/dL 2.3-4.7 L 604) Director Of Clinical Education ID - MERON JASEN/S, RENAL, [id number] 06:39:00Reason for exam:- >worsening kidney function/ metabolic acidosis [facility] CENTERName: TREV STONE : 1935 [...] 12/31/2019 06:39:51 CBC W/PLT COUNT & AUTO [id number] 06:11:00 Test Item Value Reference Range Interpretation [...] = 2801) RAD, CHEST, 1 VIEW, NON [id number] 01:43:00Reason for exam:->respiratory failureShould this be performed at the bedside?->Yes [facility]ENTERName: TREV STONE : 1935 [...] 12/31/2019 01:43:07 CBC W/PLT COUNT & AUTO [id number] 18:42:00 Test Item Value Reference Range Interpretation [...] (BEAKER) (test code = 2801) VANCOMYCIN LEVEL, [id number] 09:49:00 Test Item Value Reference Range Interpretation Comments VANCOMYCIN TROUGH (BEAKER) (test 9.6 ug/mL 10.0-20.0 L code = 522) Director Of Clinical Education ID Justine BORDEN CCOMPREHENSIVE METABOLIC [id number] 05:31:00 Test Item Value Reference Range Interpretation [...] S NOT APPLICABLE FOR DIALYSIS PATIEN TS. Director Of Clinical Education ID - BRANDONENRIKE [id number] 05:13:00 Test Item Value Reference Range Interpretation Comments MAGNESIUM (BEAKER) (test code = 1.6 mg/dL 1.6-2.6 627) Director Of Clinical Education ID - MERON [id number] 05:13:00 Test Item Value Reference Range Interpretation Comments PHOSPHORUS (BEAKER) (test code = 2.6 mg/dL 2.3-4.7 604) Director Of Clinical Education ID - MERON LCBC W/PLT COUNT & AUTO [id number] 04:43:00 Test Item Value Reference Range Interpretation Comments WHITE BLOOD CELL COUNT 19.3 K/ L 3.5-10.5 H (BEAKER) (test code = 775) RED BLOOD CELL COUNT 3.87 M/ L 4.63-6.08 L (BEAKER) (test code = 761) HEMOGLOBIN (BEAKER) 11.7 GM/DL 13.7-17.5 L Discorda nt HGB (test code = 410) results co mpared to previous result s; clinical correl ation required.[id number] HEMATOCRIT (BEAKER) 36.4 % 40.1-51.0 L (test [...] (BEAKER) (test code = 2801) BLOOD GAS, [id number] 04:36:00 Test Item Value Reference Range Interpretation [...] (BEAKER) (test code = 1819) 50.0 CORTISOL,60 [id number] 03:53:00 Test Item Value Reference Range Interpretation [...] Pharmacy Policy and Procedure Section on The Source.Director Of Clinical Education ID - PIAYA LCORTISOL,30 [id number] 03:52:00 Test Item Value Reference Range Interpretation [...] Pharmacy Policy and Procedure Section on The Source.Director Of Clinical Education ID - PIAYA LRAD, CHEST, 1 VIEW, NON [id number] 03:30:00Reason for exam:- >respiratory failureShould this be performed at the bedside?->Yes [facility] CENTERName: TREV STONE : 1935 [...] Anastasiia Aponte MDReport Verified Date/Time: 12/30/2019 03:30:42 CORTISOL,[id number] 01:31:00 Test Item Value Reference Range Interpretation [...] Pharmacy Policy and Procedure Section on The Source.Director Of Clinical Education ID - PIAYA LCREATININE, RANDOM [id number] 19:52:00 Test Item Value Reference Range Interpretation Comments CREATININE URINE (NapatechAKER) (test 310.8 mg/dL code = 375) Reference Range: No NormalsOperator ID - DBSODIUM, RANDOM [id number] 19:52:00 Test Item Value Reference Range Interpretation Comments SODIUM URINE (BEAKER) (test code = < meq/L 243) Reference Range: No NormalsOperator ID - DBPOCT-GLUCOSE [id number] 18:14:00 Test Item Value Reference Range Interpretation Comments POC-GLUCOSE METER 105 mg/dL 70-110 : TESTED A T [facility] 6720 ([employer]) (test code = [place], 1538) 35[address]: Director Of Clinical Education/Techni cory ID = [id number] for Laura Bauman BASIC METABOLIC [id number] 16:24:00 Test Item Value Reference Range Interpretation [...] S NOT APPLICABLE FOR DIALYSIS PATIEN TS. Director Of Clinical Education ID - [id number] 16:23:00 Test Item Value Reference Range Interpretation Comments MAGNESIUM (BEAKER) (test code = 1.6 mg/dL 1.6-2.6 627) Director Of Clinical Education ID - DBBLOOD GAS, [id number] 16:09:00 Test Item Value Reference Range Interpretation [...] = 1819) 50.0 RAD, ABDOMEN/KUB, 1 VIEW [id number] 12:40:00Reason for exam:->NGT placement [facility] : 1935 Sex: [...] MDReport Verified Date/Time: 12/29/2019 12:40:58 Reading Location: [address] Body Reading Room B-TYPE NATRIURETIC FACTOR (BNP)2019-12-29 11:35:00 Test Item Value Reference Range Interpretation Comments B-TYPE NATRIURETIC PEPTIDE (BEAKER) 193 pg/mL 0-100 H (test code = 700) Director Of Clinical Education ID - MAR CLACTIC ACID, [id number] 11:25:00 Test Item Value Reference Range Interpretation Comments LACTATE BLOOD ARTERIAL (2) 3.3 mmol/L 0.5-2.2 H (BEAKER) (test code = 2874) Director Of Clinical Education ID - MAR CLACTIC ACID, [id number] 07:06:00 Test Item Value Reference Range Interpretation Comments LACTATE BLOOD VENOUS 3.49 mmol/L 0.50-2.20 H Specime n slightly (2) (BEAKER) (test hemolyzed code = 2872) Director Of Clinical Education ID - EDASIURINALYSIS W/ REFLEX URINE [id number] 06:56:00 Test Item Value Reference Range Interpretation [...] Many 1585) SOURCE(BEAKER) (test code = 2795) Director Of Clinical Education ID - [auto]Director Of Clinical Education ID - techPROTHROMBIN TIME/[id number] 06:54:00 Test Item Value Reference Range Interpretation [...] INR is2.5-3.5 for patients wiht mechanical heart valves.[id number] 06:54:00 Test Item Value Reference Range Interpretation Comments PARTIAL THROMBOPLASTIN TIME 30.3 seconds 22.5-36.0 (DAVE) (test code = 760) RAD, CHEST, 1 VIEW, NON [id number] 06:51:00Reason for exam:->ETT placementShould this be performed at the bedside?->Yes [facility] : 1935 Sex: [...] uIU/mL 0.350-4.940 (DAVE) (test code = 772) Director Of Clinical Education ID - WENDIERANI [id number] 06:40:00 Test Item Value Reference Range Interpretation [...] failure, acidosis, acute neurological disease, and persistent tachyarrhythmia.Director Of Clinical Education ID - EDARMEN [id number] 06:36:00 Test Item Value Reference Range Interpretation [...] failure, acidosis, acute neurological disease, and persistent tachyarrhythmia.Director Of Clinical Education ID - EDASICBC W/PLT COUNT & AUTO [id number] 04:56:00 Test Item Value Reference Range Interpretation [...] PERCENT (BEAKER) (test code = 2801) TROPONIN [id number] 04:43:00 Test Item Value Reference Range Interpretation [...] failure, acidosis, acute neurological disease, and persistent tachyarrhythmia.Director Of Clinical Education ID - EDASICOMPREHENSIVE METABOLIC [id number] 04:37:00 Test Item Value Reference Range Interpretation [...] S NOT APPLICABLE FOR DIALYSIS PATIEN TS. Director Of Clinical Education ID - [id number] 04:37:00 Test Item Value Reference Range Interpretation Comments MAGNESIUM (BEAKER) (test code = 1.7 mg/dL 1.6-2.6 627) Director Of Clinical Education ID - [id number] 04:37:00 Test Item Value Reference Range Interpretation Comments PHOSPHORUS (BEAKER) (test code = 3.7 mg/dL 2.3-4.7 604) Director Of Clinical Education ID - EDASIRAD, CHEST, 1 VIEW, NON [id number] 04:27:00Reason for exam:->ETT positionShould this be performed at the bedside?->Yes [facility]: 1935 Sex: MFINAL REPORT CLINICAL INDICATION: Support lines. Comparison: The tip of an endotracheal tube is in good position above the kira at the level of the midclavicular heads. The cardiomediastinal contours are stable. Bilateral parenchymal and pleural opacities are unchanged. There is no pneumothorax. Signed: Gerry Sinha MDReport Verified Date/Time: 12/29/2019 04:27:00 SARS-COV2/RT-PCR ([facility])2019-12-29 04:15:00 Test Item Value Reference Range Interpretation Comments SARS-COV2/RT-PCR (test Negative Not Detected, Negative, code = 6866285) See external report for linked test SARS-COV-2 PERFORMING LAB [facility] (test code = 5787066) Negative result for this test determines that [...] 564(g) of the Act.Fact Sheet for Healthcare Providers:https://www.[employer]/sites/default/files/product/documents/Fact_Shee x_WY_Tezdlwjxq_Tavp_WKTF-MmZ-8.pdfFact Sheet for Healthcare Patients:https://www.[employer]/sites/default/files/product/ documents/Gpvo_Nrslr_Ndrvdfkx_Xjpm_YMCF-OfM-2.pdfPerforming Laboratory:[address], [place] [address]YCYH-SPSJJ GASES, [id number] 04:14:00 Test Item Value Reference Range Interpretation [...] EXCESS, -1.0 meq/L -2.0-3.0 : TESTED AT [place] [id number] ARTERIAL-POC [facility], (BEAKER) (test code 74851: = 1841) Director Of Clinical Education/Techni cory ID = [id number] for SHAHZAD HERRERA MALAIKA [id number] 04:14:00 Test Item Value Reference Range Interpretation Comments POC-SODIUM ([facility]) 141 meq/L 135-148 : TESTED AT [place] [address] (test code = 1542) [facility] [place], [address]: Director Of Clinical Education/Techni cory ID = [id number] for DONNELL GERMAIN [id number] 04:14:00 Test Item Value Reference Range Interpretation Comments POC-POTASSIUM 3.6 meq/L 3.6-5.5 : TESTED AT [place] [address] ([facility]) (test code [facility], = 1540) [address]: Director Of Clinical Education/Techni cory ID = [id number] for DONNELL GERMAIN [id number] 04:14:00 Test Item Value Reference Range Interpretation Comments POC-HEMOGLOBIN 16.3 g/dL 13.0-16.8 : TESTED AT [place] [address] ([facility]) (test code [facility], = 1856) [address]: Director Of Clinical Education/Techni cory ID = [id number] for DONNELL GERMAIN [id number] 04:14:00 Test Item Value Reference Range Interpretation Comments POC-HEMATOCRIT 48 % 40-50 : Director Of Clinical Education/Te chnician ID = ([facility]) (test code = 483964 for DONNELL GERMAIN 1857) POCT-CALCIUM [id number] 04:14:00 Test Item Value Reference Range Interpretation Comments POC-CALCIUM IONIZED 1.18 mmol/L 1.12-1.27 : TESTED AT [facility] ([facility]) (test code = [facility] B [facility] 1536) [place], [address]: Director Of Clinical Education/Techni cory ID = [id number] for DONNELL GERMAIN [id number] 04:14:00 Test Item Value Reference Range Interpretation Comments POC-GLUCOSE ([facility]) 145 mg/dL 70-110 H : TESTE D AT [place] [address] (test code = 1855) [facility], [address]: Director Of Clinical Education/Techni cory ID = [id number] for DONNELL GERMAIN CBC W/PLT COUNT & AUTO [id number] 23:29:00 Test Item Value Reference Range Interpretation Comments WHITE BLOOD CELL COUNT ([facility]) 13.1 K/ L 3.5-10.5 H (test [...] (BEAKER) (test code = 2801) BASIC METABOLIC [id number] 23:07:00 Test Item Value Reference Range Interpretation [...] S NOT APPLICABLE FOR DIALYSIS PATIEN TS. Director Of Clinical Education ID - DBRAD, CHEST, 1 VIEW, NON [id number] 22:49:00Reason for exam:->pre-anesthesiaShould this be performed at the bedside?->Yes [facility] : 1935 Sex: MFINAL REPORT [...] MDReport Verified Date/Time: 12/06 22:49:33 Reading Location: [facility] C013T Transitional Reading Room [facility] H[facility]ITALOMP. METABOLIC PANEL ([address])2019-09-02 11:55:00 Test Item Value Reference Range Interpretation Comments NA (test code = 139 mmol/L 135-145 3443258320) K (test code = 4.1 mmol/L 3.5-5 7282995544) CL (test code = 104 mmol/L 98-108 6466962811) CO2 TOTAL (test code = 29 mmol/L 23-31 0021248141) AGAP (test code = 2-16 4391514579) BUN (test code = 21 mg/dL 7-23 0795970541) GLUCOSE (test code = 99 mg/dL 70-110 4652706989) CREATININE (test code 0.86 mg/dL 0.6-1.25 = 6872624031) TOTAL BILI (test code 0.7 mg/dL 0.1-1.1 = 1751616182) CALCIUM (test code = 9.3 mg/dL 8.6-10.6 4170708288) T PROTEIN (test code = 7.2 g/dL 6.3-8.2 9821325997) ALBUMIN (test code = 4.2 g/dL 3.5-5 6939997654) ALK PHOS (test code = 75 U/L 34-122 1805843844) ALTv (test code = 28 U/L 5-50 1742-6) AST(SGOT) (test code = 33 U/L 13-40 9169506097) eGFR Calculation mL/min/1.73m2 (Non-) (test code = 4079637308) eGFR Calculation mL/min/1.73m2 () (test code = 2417160846) JETT (test code = JETT) Association of [...] or urine or abnormalities in imaging tests). [id number] 11:53:00 Test Item Value Reference Range Interpretation Comments APPEARANCE (test code = Clear Clear [id number]) COLOR (test code = Yellow Yellow [id number]) PH (test code = 4.8-8.0 [id number]) SP GRAVITY (test code = 1.003-1.030 5062577913) GLU U QUAL (test code = Normal Normal 1088501186) BLOOD (test code = 1+ Negative A 4573469758) KETONES (test code = Negative Negative 1973477686) PROTEIN (test code = Negative Negative 2887-8) UROBILIN (test code = Normal Normal 6113683520) BILIRUBIN (test code = Negative Negative 7892539618) NITRITE (test code = Negative Negative 7796620567) LEUK ROLAN (test code = 75/uL Negative A 9303249633) RBC/HPF (test code = See_Comment H [Autom ated message] 6098514974) The system [employer] generated this result transmitted ref erence range: 0 - 3 HP F. The reference range was not used to int erpret this result as normal/abnormal . WBC/HPF (test code = See_Comment H [Autom ated message] 8235545640) The system [employer] generated this result transmitted ref erence range: 0 - 5 HP F. The reference range was not used to int erpret this result as normal/abnormal . BACTERIA (test code = Few Negative A 5287164219) MUCOUS (test code = Slight Negative LPF A 4634577821) SQ EPITH (test code = <1 HPF 0604681821) TRANS EPI (test code = <1 See_Comment [Aut omated message] 6169890543) The system [employer] generated this result transmitted ref erence range: <=1 HPF. The reference range was not used to int erpret this result as normal/abnormal . NOE EPITH (test code = <1 See_Comment [Aut omated message] 0047282418) The system [employer] generated this result transmitted ref erence range: <=1 HPF. The reference range was not used to int erpret this result as normal/abnormal . Lab Interpretation (test Abnormal code = 63583-0) [facility] WITH [id number] 11:52:00 Test Item Value Reference Range Interpretation Comments WBC (test code = See_Comment [Automated message] 6690-2) The system [employer] generated this result transmitted ref erence range: 4.20 - 1 0.70 10*3/?L. The re ference range was not u sed to interpret this result as normal/abnor mal. RBC (test code = See_Comment [Automated message] 789-8) The system [employer] generated this result transmitted ref erence range: [...] RDW-SD (test code 41.1 fL 38.5-51.6 = 21224-3) RDW-CV (test code 12.1 % 12.1-15.4 = 788-0) PLT (test code = See_Comment [Automated message] 777-3) The system whic h generated this result transmitted ref erence range: 150 - 32 8 10*3/?L. The re ference range was not u sed to interpret this result as normal/abnor mal. MPV (test code = 10.8 fL 9.8-13 39817-7) NRBC/100 WBC (test See_Comment [Automat ed message] code = 4825875022) The syste m which generated this result transmitted ref erence range: 0.0 - 10 .0 /100 WBCs. The refer ence range was not u sed to interpret this result as normal/abnor mal. NRBC x10^3 (test <0.01 See_Comment [Automated message] code = 9882050089) The syste m which generated this result transmitted ref erence range: 10*3/?L. The reference range was not used to interpr et this result as normal/abnormal . GRAN MAT (NEUT) % 44.8 % (test code = 770-8) IMM GRAN % (test 0.40 % code = 6521888809) LYMPH % (test code 42.0 % = 736-9) MONO % (test code 6.9 % = 5905-5) EOS % (test code = 5.0 % 713-8) BASO % (test code 0.9 % = 706-2) GRAN MAT 3.14 10*3/uL 1.99-6.95 x10^3(ANC) (test code = 5160020670) IMM GRAN x10^3 0.03 10*3/uL 0-0.06 (test code = 2231582769) LYMPH x10^3 (test 2.94 10*3/uL 1.09-3.23 code = 731-0) MONO x10^3 (test 0.48 10*3/uL 0.36-1.02 code = 742-7) EOS x10^3 (test 0.35 10*3/uL 0.06-0.53 code = 711-2) BASO x10^3 (test 0.06 10*3/uL 0.01-0.09 code = 704-7) [facility] [id number] 17:34:00 Test Item Value Reference Range Interpretation [...] 3267) Lab Interpretation (test code Normal = 21839-0) [facility] [id number] 17:34:00 Test Item Value Reference Range Interpretation [...] 3267) Lab Interpretation (test code Normal = 44577-4) [facility] URINALYSIS, [id number] 17:09:00 Test Item Value Reference Range Interpretation [...] U APPEAR (test code = clear 3267) [facility] URINALYSIS, [id number] 17:09:00 Test Item Value Reference Range Interpretation [...] U APPEAR (test code = clear 3267) [facility]"
[2021-04-01 20:30] LABS: Absolute Lymphocytes (CBC) 2.7 K/uL (0.7-4.9); Hematocrit 41.4 % (39.6-49.0); Lymphocytes % 41.7 % (15.3-44.8); MPV 9.3 fL (7.6-11.3); RBC Red Blood Cell Count 4.53 M/uL (4.33-5.43)
[2021-04-01 20:42] LABS: Protime INR 3.7
[2021-04-01 20:44] LABS: Potassium 3.4 mmol/L (3.5-5.1)
--- NOTE | 2021-04-02 01:11 | ER ---
Nurse's Notes [facility] Name: Rusty Yarbrough Age: 86 yrs Sex: Male : 1935 Arrival Date: 04/01/2021 Time: 19:14 Bed 8 Private MD: Diagnosis: Gross hematuria;Supratherapeutic INR Presentation: 04/01 19:14 Chief complaint: EMS states: pt has hx of prostate ca and ulrich catheter, home health [facility] nurse went to change his catheter and could not get it to advance and noticed blood clots. pt bleeding through pants currently, no ulrich in. Coronavirus screen: Vaccine status: Patient reports receiving the 2nd dose of the covid vaccine. Ebola Screen: No symptoms or risks identified at this time. Initial Sepsis Screen: Does the patient meet any 2 criteria? No. Patient's initial sepsis screen is negative. Does the patient have a suspected source of infection? No. Patient's initial sepsis screen is negative. Risk Assessment: Do you want to hurt yourself or someone else? Patient reports no desire to harm self or others. Onset of symptoms was April 01, 2021. 19:14 Method Of Arrival: EMS [facility] 19:14 Acuity: GAYLE 4 5 Triage Assessment: 19:17 General: Appears in no apparent distress. Behavior is calm, cooperative. Pain: Denies [facility] pain. : blood/hematuria. Historical: - Allergies: 19:16 Benadryl; sm5 19:16 Enalapril; 5 - Home Meds: 19:16 warfarin 6 mg Oral tab 1 tab once daily [Active]; diclofenac sodium 75 mg Oral TbEC 1 sm5 tab 2 times per day [Active]; [place] 5-325 mg Oral tab every 8 hours [Active]; - PMHx: 19:16 "heart valve replacement"; Aortic Stenosis; Ataxia; acute, resolved now; bleeding sm5 ulcers; CAD; COPD; dyspnea; fatigue; Hyperlipidemia; Hypertension; Hypokalemia; melena; Myocardial infarction; syncope; Tachycardia; TIA; Vertigo; - Immunization history:: Client reports receiving the 2nd dose of the Covid vaccine. - Social history:: Smoking status: Patient denies any tobacco usage or history of. Patient/guardian denies using alcohol. - Family history:: not pertinent. - Hospitalizations: : No recent hospitalization is reported. Screenin:18 Abuse screen: Denies threats or abuse. Denies injuries from another. Nutritional sm5 screening: No deficits noted. Tuberculosis screening: No symptoms or risk factors identified. Fall Risk None identified. Assessment: 19:30 General: Appears in no apparent distress. comfortable, Behavior is calm, cooperative, vc1 appropriate for age. Pain: Denies pain. Neuro: Level of Consciousness is awake, alert, obeys commands, Oriented to person, place, time. Cardiovascular: No deficits noted. Respiratory: No deficits noted. : Blood noted coming from penis Reports incontinence, blood coming from penis. 20:25 Reassessment: attempted to insert a 3-way 20 fr. ulrich catheter, which was sm5 unsuccessful. unable to pass through blood clots to get into bladder. 20:45 Reassessment: attempted to insert an 18 fr. coude ulrich catheter which was unsuccessful.sm5 21:00 Reassessment: No changes from previously documented assessment. Patient and/or family vc1 updated on plan of care and expected duration. Pain level reassessed. 22:00 Reassessment: No changes from previously documented assessment. Patient denies pain at vc1 this time. 23:15 Reassessment: placed a 14 bel[place] ulrich, unable to irriagate, notified provider will vc1 attempt to place a larger size ulrich. 04/02 00:00 Reassessment: No changes from previously documented assessment. Patient and/or family vc1 updated on plan of care and expected duration. Pain level reassessed. 01:33 Reassessment: Patient appears in no apparent distress at this time. Patient and/or vc1 family updated on plan of care and expected duration. Pain level reassessed. 04:00 Reassessment: Patient appears in no apparent distress at this time. Patient and/or vc1 family updated on plan of care and expected duration. Pain level reassessed. Patient denies pain at this time. Vital Signs: 04/01 19:14 BP 177 / 82; Pulse 60; Resp 18; Pulse Ox 100% on R/A; Weight 79.83 kg; Height 5 ft. 11 sm5 in. (180.34 cm); Pain 0/10; 20:00 BP 180 / 102; Pulse 90; Resp 19; Pulse Ox 94% on R/A; vc1 21:00 BP 180 / 96; Pulse 97; Resp 19; Pulse Ox 100% on R/A; vc1 21:30 BP 148 / 88; Pulse 109; Resp 22; Pulse Ox 100% on R/A; vc1 22:30 BP 148 / 88; Pulse 130; Resp 23; Pulse Ox 93% on R/A; vc1 23:00 BP 127 / 71; Pulse 139; Resp 23; Pulse Ox 91% on R/A; vc1 04/02 00:00 BP 136 / 84; Pulse 104; Resp 23; Pulse Ox 91% on R/A; vc1 03:27 BP 104 / 58; Pulse 89; Resp 21; Pulse Ox 94% on R/A; [facility] 04/01 19:14 Body Mass Index 24.55 (79.83 kg, 180.34 cm) 5 ED Course: 04/01 19:14 Patient arrived in ED. 5 19:16 Joe Guerrier MD is Attending Physician. rn 19:16 Triage completed. 5 19:18 Arm band placed on right wrist. 5 19:18 Patient has correct armband on for positive identification. Placed in gown. Bed in low sm5 position. Call light in reach. Side rails up X2. awake overnight monitor on. Pulse ox on. NIBP on. 19:30 Inserted saline lock: 20 gauge in left forearm, using aseptic technique. Blood 5 collected. 20:16 Sana Castillo, RN is Primary Nurse. 5 20:17 Protime (+inr) Sent. 5 20:17 Ptt, Activated Sent. sm5 20:17 CBC with Diff Sent. 5 21:00 Ulrich cath inserted, using sterile technique, 12 Fr., by mo, balloon inflated, to [facility] gravity drainage. 04/02 00:43 initiated a transfer with Marleen from [facility]. mw2 00:[address] Guerrier with the Urologist from [facility]. mw2 00:54 SARS-COV-2 RT PCR (Document "Date of Onset" if Symptomatic) Sent. 5 02:11 CBC with Diff Sent. sm5 02:11 PT-INR Sent. 5 03:31 administrative approval given by Marleen Kumar/ patient has been accepted to [address] bed 1663/ Dr. Fox accepted the patient in transfer/ report to be called to [phone]. 04:14 No provider procedures requiring assistance completed. Patient transferred, IV remains vc1 in place. 04:17 Urine Culture Sent. vc1 Administered Medications: 04/01 20:17 Drug: Vitamin K1 (phytonadione) 10 mg Route: IM; Site: left deltoid; 5 04/02 04:17 Follow up: Response: No adverse reaction vc1 04/01 22:02 Drug: Zofran (Ondansetron) 4 mg Route: IVP; Site: left forearm; 5 04/02 04:16 Follow up: Response: No adverse reaction vc1 04/01 22:03 Drug: morphine 2 mg Route: IVP; Site: left forearm; [facility] 04/02 04:17 Follow up: Response: No adverse reaction; Pain is decreased vc1 02:05 Drug: NS 0.9% 500 ml Route: IV; Rate: bolus; Site: left forearm; 5 02:35 Follow up: Response: No adverse reaction; IV Status: Completed infusion; IV Intake: vc1 500ml 03:32 Drug: Rocephin (cefTRIAXone) 1 grams Route: IV; Rate: calculated rate; Site: left sm5 forearm; 04:15 Follow up: Response: No adverse reaction; IV Status: Completed infusion; IV Intake: [id number] Intake: 02:35 IV: 500ml; Total: 500ml. vc1 04:15 IV: 50ml; Total: 550ml. vc1 Outcome: 01:10 ER care complete, transfer ordered by rn 04:14 Transferred by [facility] to [facility], Transfer form completed. vc1 04:14 Condition: good 04:14 Instructed on the need for transfer. 04:28 Patient left the ED. 5 Signatures: Joe Guerrier MD MD rn [place], MyKena mw2 Sana Castillo RN RN 5 Sara Tobias RN RN vc1 Corrections: (The following items were deleted from the chart) 04/01 19:18 19:14 Pulse 60bpm; Resp 18bpm; Pulse Ox 100% RA; 79.83 kg; Height 5 ft. 11 in.; BMI: sm5 24.5; Pain 0/10; sm5
--- NOTE | 2021-04-02 01:11 | EDPHYS ---
Physician Documentation [facility] Name: Rusty Yarbrough Age: 86 yrs Sex: Male : 1935 Arrival Date: 04/01/2021 Time: 19:14 Bed 8 Private MD: ED Physician Joe Guerrier HPI: 04/01 19:29 This 86 yrs old Male presents to ER via EMS with complaints of Hematuria. rn 19:29 The patient presents with urinary symptoms, Hematuria. Onset: The symptoms/episode rn began/occurred yesterday. Modifying factors: The symptoms are alleviated by nothing, the symptoms are aggravated by nothing. Associated signs and symptoms: Pertinent positives: dysuria, Pertinent negatives: abdominal pain, fever. Severity of symptoms: At their worst the symptoms were moderate, in the emergency department the symptoms are unchanged. The patient has experienced similar episodes in the past. The patient has not recently seen a physician. Patient reports hematuria that began yesterday, got worse today, home health nurse pulled out his existing Tee catheter and could not insert another one, sent here for further evaluation. Patient cannot tell me if he is on blood thinners but previous visit shows that he used to take Coumadin. Denies any trauma. Denies retention. Reports Tee catheter was initially placed due to leakage and not retention.. Historical: - Allergies: 19:16 Benadryl; sm5 19:16 Enalapril; sm5 - Home Meds: 19:16 warfarin 6 mg Oral tab 1 tab once daily [Active]; diclofenac sodium 75 mg Oral TbEC 1 sm5 tab 2 times per day [Active]; [place] 5-325 mg Oral tab every 8 hours [Active]; - PMHx: 19:16 "heart valve replacement"; Aortic Stenosis; Ataxia; acute, resolved now; bleeding sm5 ulcers; CAD; COPD; dyspnea; fatigue; Hyperlipidemia; Hypertension; Hypokalemia; melena; Myocardial infarction; syncope; Tachycardia; TIA; Vertigo; - Immunization history:: Client reports receiving the 2nd dose of the Covid vaccine. - Social history:: Smoking status: Patient denies any tobacco usage or history of. Patient/guardian denies using alcohol. - Family history:: not pertinent. - Hospitalizations: : No recent hospitalization is reported. ROS: 19:29 Constitutional: Negative for fever, chills, and weight loss, Eyes: Negative for injury, rn pain, redness, and discharge, Neck: Negative for injury, pain, and swelling, Cardiovascular: Negative for chest pain, palpitations, and edema, Respiratory: Negative for shortness of breath, cough, wheezing, and pleuritic chest pain, Abdomen/GI: Negative for abdominal pain, nausea, vomiting, diarrhea, and constipation, Back: Negative for injury and pain, : Positive for hematuria MS/Extremity: Negative for injury and deformity, Skin: Negative for injury, rash, and discoloration, Neuro: Negative for headache, weakness, numbness, tingling, and seizure. Exam: 19:29 Constitutional: This is a well developed, well nourished patient who is awake, alert, rn and in no acute distress. Head/Face: Normocephalic, atraumatic. Eyes: Periorbital areas with no swelling, redness, or edema. Cardiovascular: Regular rate and rhythm. No pulse deficits. Respiratory: No increased work of breathing, no retractions or nasal flaring. Abdomen/GI: Soft, non-tender Skin: Warm, dry MS/ Extremity: Pulses equal, no cyanosis. Neuro: Awake and alert, GCS 15, oriented to person, place, time, and situation. Cranial nerves II-XII grossly intact. Motor strength 5/5 in all extremities. Sensory grossly intact. Vital Signs: 19:14 BP 177 / 82; Pulse 60; Resp 18; Pulse Ox 100% on R/A; Weight 79.83 kg; Height 5 ft. 11 sm5 in. (180.34 cm); Pain 0/10; 20:00 BP 180 / 102; Pulse 90; Resp 19; Pulse Ox 94% on R/A; vc1 21:00 BP 180 / 96; Pulse 97; Resp 19; Pulse Ox 100% on R/A; vc1 21:30 BP 148 / 88; Pulse 109; Resp 22; Pulse Ox 100% on R/A; vc1 22:30 BP 148 / 88; Pulse 130; Resp 23; Pulse Ox 93% on R/A; vc1 23:00 BP 127 / 71; Pulse 139; Resp 23; Pulse Ox 91% on R/A; vc1 04/02 00:00 BP 136 / 84; Pulse 104; Resp 23; Pulse Ox 91% on R/A; vc1 03:27 BP 104 / 58; Pulse 89; Resp 21; Pulse Ox 94% on R/A; mw2 04/01 19:14 Body Mass Index 24.55 (79.83 kg, 180.34 cm) sm5 MDM: 04/01 19:16 Patient medically screened. rn 19:47 ED course: Last visit patient with INR 18, still taking coumadin, nita blood just rn leaking from penis, will order vitamin K for now and wait on INR for further guidance.. 20:42 ED course: Nursing unable to pass three-way catheter, attempted 18F and unable to pass rn as well, tried to irrigate some with catheter half-in and some clots came out but still unable to pass. Will try smaller catheter to atleast get some irrigation. No signs of retention at this time.. 21:54 ED course: Nursing able to pass 12F catheter and using that to attempt to irrigate. . rn 23:36 ED course: 12F clotted and unable to irrigate. 14F placed and clotted as well. Will rn attempt 16F. 04/02 01:07 Differential diagnosis: UTI, urethritis, Supratherapeutic INR. Data reviewed: vital rn signs, nurses notes, lab test result(s), and as a result, I will admit patient. Counseling: I had a detailed discussion with the patient and/or guardian regarding: the historical points, exam findings, and any diagnostic results supporting the discharge/admit diagnosis, lab results, the need to transfer to another facility. Response to treatment: the patient's symptoms have mildly improved after treatment, and as a result, I will admit patient. Admission orders: after a detailed discussion of the patient's condition and case, the admit orders are written by me. ED course: Unable to adequately irrigate patient. Bleeding has slowed down and has stable vital signs. Family member states sees Dr. Smalls service so transfer initiated to [facility] and accepted for transfer.. 01:50 ED course: Shell, granddaughter, . rn 04/01 19:21 Order name: CBC with Diff; Complete Time: 20:41 rn 04/01 19:21 Order name: Basic Metabolic Panel; Complete Time: 20:47 rn 04/01 19:21 Order name: Protime (+inr); Complete Time: 20:47 rn 04/01 19:21 Order name: Ptt, Activated; Complete Time: 20:47 rn 04/02 00:46 Order name: SARS-COV-2 RT PCR (Document "Date of Onset" if Symptomatic); Complete Time: rn 02:48 04/02 01:37 Order name: CBC with Diff; Complete Time: 04:04 rn 04/02 01:38 Order name: PT-INR; Complete Time: 02:48 rn 04/02 02:37 Order name: Manual Differential; Complete Time: 04:04 EDMS 04/01 19:21 Order name: IV Start; Complete Time: 20:17 rn Administered Medications: 04/01 20:17 Drug: Vitamin K1 (phytonadione) 10 mg Route: IM; Site: left deltoid; [facility] 04/02 04:17 Follow up: Response: No adverse reaction [facility] 04/01 22:02 Drug: Zofran (Ondansetron) 4 mg Route: IVP; Site: left forearm; [facility] 04/02 04:16 Follow up: Response: No adverse reaction [facility] 04/01 22:03 Drug: morphine 2 mg Route: IVP; Site: left forearm; [facility] 04/02 04:17 Follow up: Response: No adverse reaction; Pain is decreased 1 02:05 Drug: NS 0.9% 500 ml Route: IV; Rate: bolus; Site: left forearm; [facility] 02:35 Follow up: Response: No adverse reaction; IV Status: Completed infusion; IV Intake: vc1 500ml 03:32 Drug: Rocephin (cefTRIAXone) 1 grams Route: IV; Rate: calculated rate; Site: left 5 forearm; 04:15 Follow up: Response: No adverse reaction; IV Status: Completed infusion; IV Intake: [id number] Disposition Summary: 04/02/21 01:10 Transfer Ordered Transfer Location: [facility] rn Reason: Higher level of care rn Condition: Stable rn Problem: new rn Symptoms: have improved rn Accepting Physician: (04/02/21 04:28) [facility] Diagnosis - Gross hematuria rn - Supratherapeutic INR rn Forms: - Medication Reconciliation Form rn - SBAR form rn Signatures: Dispatcher [employer] EDMS Joe Guerrier MD MD rn Mazur, Sarah, RN RN [facility] Delfin Tobiasessa RN vc1 Corrections: (The following items were deleted from the chart) 04:04/01 19:21 Bladder Irrigation anthony. lubna vc1 04/02 04:28 01:10 Dr. lubna carl5
[2021-04-02 02:30] LABS: Protime INR 3.05
[2021-04-02 02:32] LABS: Absolute Lymphocytes (CBC) 0.6 K/uL (0.7-4.9); Hematocrit 41.9 % (39.6-49.0); Lymphocytes % 3.2 % (15.3-44.8); MPV 9.3 fL (7.6-11.3); RBC Red Blood Cell Count 4.61 M/uL (4.33-5.43)
[2021-04-02 03:31] LABS: Blood Morphology Comment NOT SEEN (NOT SEEN); Platelet Estimate ADEQ
[2021-04-02 04:43] VITALS: BP 104/58; O2SAT 94
== END 2021-04-02 04:28 | disposition short-term general hospital (02) ==
LOC: ER 19:12
DX: R31.0 Gross hematuria (principal); R79.1 Abnormal coagulation profile; I10 Essential (primary) hypertension; I25.2 Old myocardial infarction; Z20.822 Contact with and (suspected) exposure to COVID-19; Z88.8 Allergy status to other drugs, medicaments and biological substances; Z79.01 Long term (current) use of anticoagulants; Z95.4 Presence of other heart-valve replacement
CPT/HCPCS: 96365; 85025 ×2; 80048; 36415; 85610 ×2; 85730; 51702; 96375; 96372; 99285; U0003

== ENCOUNTER 2021-09-18 13:17 | Emergency (ER) | payer MEDICARE ==
[2021-09-18] MEDS ORDERED: LIDOCAINE VISCOUS 2% SOLN 15 ML UDC ONE (17:15)
--- NOTE | 2021-09-18 18:06 | EDPHYS ---
Physician Documentation [facility] Name: Rusty Yarbrough Age: 86 yrs Sex: Male : 1935 Arrival Date: 09/18/2021 Time: 13:20 Bed 5 Private MD: Toya Ortega ED Physician Sathish Mckeon HPI: 09/18 17:13 This 86 yrs old Male presents to ER via Wheelchair with complaints of Urinary mukesh Problem. 17:13 The patient presents with urinary symptoms, dribbling of urine. Onset: The mukesh symptoms/episode began/occurred 2 day(s) ago. Modifying factors: The symptoms are alleviated by nothing, the symptoms are aggravated by movement, pressure. Associated signs and symptoms: The patient has no apparent associated signs or symptoms. Severity of symptoms: At their worst the symptoms were mild, in the emergency department the symptoms are unchanged. The patient has not experienced similar symptoms in the past. Historical: - Allergies: 14:03 Benadryl; iw 14:03 Enalapril; iw - Home Meds: 14:03 atorvastatin 20 mg Oral tab 1 tab once daily [Active]; diclofenac sodium 75 mg Oral iw TbEC 1 tab 2 times per day [Active]; [place] 5-325 mg Oral tab every 8 hours [Active]; prednisone 10 mg Oral tab once daily [Active]; warfarin 6 mg Oral tab 1 tab once daily [Active]; warfarin 5 mg Oral tab 1 tab once daily [Active]; - PMHx: 14:03 "heart valve replacement"; Cerebrovascular accident; bleeding ulcers; Aortic Stenosis; iw Ataxia; acute, resolved now; CAD; COPD; dyspnea; fatigue; Hyperlipidemia; Hypertension; Hypertensive disorder; Hypokalemia; melena; Myocardial infarction; syncope; Tachycardia; TIA; Vertigo; - Immunization history:: Adult Immunizations unknown. - Social history:: Smoking status: unknown. ROS: 17:14 Constitutional: Negative for fever, chills, and weight loss, Eyes: Negative for injury, mukesh pain, redness, and discharge, ENT: Negative for injury, pain, and discharge, Neck: Negative for injury, pain, and swelling, Cardiovascular: Negative for chest pain, palpitations, and edema, Respiratory: Negative for shortness of breath, cough, wheezing, and pleuritic chest pain, Abdomen/GI: Negative for abdominal pain, nausea, vomiting, diarrhea, and constipation, Back: Negative for injury and pain, MS/Extremity: Negative for injury and deformity, Skin: Negative for injury, rash, and discoloration, Neuro: Negative for headache, weakness, numbness, tingling, and seizure, Psych: Negative for depression, anxiety, suicide ideation, homicidal ideation, and hallucinations, Allergy/Immunology: Negative for hives, rash, and allergies, Endocrine: Negative for neck swelling, polydipsia, polyuria, polyphagia, and marked weight changes, Hematologic/Lymphatic: Negative for swollen nodes, abnormal bleeding, and unusual bruising. 17:14 : Positive for urinary symptoms, small amounts, bladder incontinence Exam: 17:14 Constitutional: This is a well developed, well nourished patient who is awake, alert, mukesh and in no acute distress. Head/Face: Normocephalic, atraumatic. Eyes: Pupils equal round and reactive to light, extra-ocular motions intact. Lids and lashes normal. Conjunctiva and sclera are non-icteric and not injected. Cornea within normal limits. Periorbital areas with no swelling, redness, or edema. ENT: Nares patent. No nasal discharge, no septal abnormalities noted. Tympanic membranes are normal and external auditory canals are clear. Oropharynx with no redness, swelling, or masses, exudates, or evidence of obstruction, uvula midline. Mucous membranes moist. Neck: Trachea midline, no thyromegaly or masses palpated, and no cervical lymphadenopathy. Supple, full range of motion without nuchal rigidity, or vertebral point tenderness. No Meningismus. Chest/axilla: Normal chest wall appearance and motion. Nontender with no deformity. No lesions are appreciated. Cardiovascular: Regular rate and rhythm with a normal S1 and S2. No gallops, murmurs, or rubs. Normal PMI, no JVD. No pulse deficits. Respiratory: Lungs have equal breath sounds bilaterally, clear to auscultation and percussion. No rales, rhonchi or wheezes noted. No increased work of breathing, no retractions or nasal flaring. Abdomen/GI: Soft, non-tender, with normal bowel sounds. No distension or tympany. No guarding or rebound. No evidence of tenderness throughout. Back: No spinal tenderness. No costovertebral tenderness. Full range of motion. Skin: Warm, dry with normal turgor. Normal color with no rashes, no lesions, and no evidence of cellulitis. MS/ Extremity: Pulses equal, no cyanosis. Neurovascular intact. Full, normal range of motion. Neuro: Awake and alert, GCS 15, oriented to person, place, time, and situation. Cranial nerves II-XII grossly intact. Motor strength 5/5 in all extremities. Sensory grossly intact. Cerebellar exam normal. Normal gait. Psych: Awake, alert, with orientation to person, place and time. Behavior, mood, and affect are within normal limits. Vital Signs: 14:01 BP 137 / 62; Pulse 58; Resp 16; Temp 97.2; Pulse Ox 97% on R/A; iw 17:30 BP 164 / 100; Pulse 57; Resp 17 S; Pulse Ox 98% on R/A; jg9 18:00 BP 156 / 86; Pulse 66; Resp 18 S; Pulse Ox 99% ; jg9 [place] Coma Score: 17:14 Eye Response: spontaneous(4). Verbal Response: oriented(5). Motor Response: obeys mukesh commands(6). Total: 15. Procedures: 18:01 NO SEGUNDO ABLE TO BE PASSED COUDE OR STRAIGHT. mukesh MDM: 16:49 Patient medically screened. mukesh 17:18 Differential diagnosis: UTI, urinary retention, Segundo catheter problem, prostatitis, mukesh urethritis. Data reviewed: vital signs, nurses notes. Data interpreted: Pulse oximetry: on room air is 97 %. Counseling: I had a detailed discussion with the patient and/or guardian regarding: the historical points, exam findings, and any diagnostic results supporting the discharge/admit diagnosis, lab results, radiology results, the need for outpatient follow up, for definitive care, a family practitioner, a urologist. 09/18 17:09 Order name: Segundo; Complete Time: 18:34 mukesh 09/18 18:00 Order name: Bladder Scanner: note PVR; Complete Time: 18:34 mukesh Administered Medications: 18:35 Not Given (Patient Refused): Augmentin (Amoxicillin-Clavulanate) 875 mg PO once jg9 18:35 Not Given (Patient Refused): Flomax (tamsulosin) 0.4 mg PO once jg9 Disposition Summary: 09/18/21 18:05 Discharge Ordered Location: Home mukesh Problem: new mukesh Symptoms: have improved [facility] Condition: Stable [facility] Diagnosis - Unspecified urinary incontinence [facility] Followup: mukesh - With: - When: 2 - 3 days - Reason: Recheck today's complaints, Continuance of care, Re-evaluation by your physician Followup: mukesh - With: - When: 2 - 3 days - Reason: Recheck today's complaints, Continuance of care, Re-evaluation by your physician Discharge Instructions: - Discharge Summary Sheet mukesh - Indwelling Urinary Catheter Care, Adult mukesh - Urinary Incontinence mukesh - Indwelling Urinary Catheter Care, Adult, [id number] [facility] Forms: - Medication Reconciliation Form [facility] - Thank You Letter [facility] - Antibiotic Education [facility] - Prescription Opioid Use [facility] Prescriptions: - Flomax 0.4 mg Oral capsule - take 1 capsule by ORAL route once daily 1/2 hour following the same meal each [facility] day; 2 capsule; Refills: 0, Product Selection Permitted - Augmentin 875-125 mg Oral Tablet - take 1 tablet by ORAL route every 12 hours for 10 days; 20 tablet; Refills: 0, [facility] Product Selection Permitted Signatures: Dispatcher [employer] Sathish Reyes MD MD cha Williams, Irene RN Layla Landaverde RN RN jg9 Corrections: (The following items were deleted from the chart) 18:02 17:18 Segundo cath inserted by myself - 18 Fr. Patient tolerated well. mukesh mayorga 18:35 17:09 Urine Dipstick-Ancillary ordered. mukesh diag9 18:35 17:09 Leg Bag ordered. mukesh jg9
--- NOTE | 2021-09-18 18:06 | ER ---
Nurse's Notes [facility] Name: Rusty Yarbrough Age: 86 yrs Sex: Male : 1935 Arrival Date: 09/18/2021 Time: 13:20 Bed 5 Private MD: Toya Ortega Diagnosis: Unspecified urinary incontinence Presentation: 09/18 14:00 Chief complaint: Spouse and/or significant other states: took his catheter out this iw week and was told he needed to get it put back in because they didn't have they right size catheter, he has hx of prostate cancer and had a ulrich in place for years. Coronavirus screen: At this time, the client does not indicate any symptoms associated with coronavirus-19. Ebola Screen: Patient negative for fever greater than or equal to 101.5 degrees Fahrenheit, and additional compatible Ebola Virus Disease symptoms Patient denies exposure to infectious person. Patient denies travel to an Ebola-affected area in the 21 days before illness onset. No symptoms or risks identified at this time. 14:00 Method Of Arrival: Wheelchair iw 14:00 Acuity: GAYLE 3 iw 14:01 Initial Sepsis Screen: Does the patient meet any 2 criteria? No. Patient's initial iw sepsis screen is negative. Does the patient have a suspected source of infection? No. Patient's initial sepsis screen is negative. Risk Assessment: Do you want to hurt yourself or someone else? Patient reports no desire to harm self or others. Onset of symptoms was September 18, 2021. Triage Assessment: 17:30 General: Appears in no apparent distress. Behavior is calm, cooperative. jg9 Historical: - Allergies: 14:03 Benadryl; iw 14:03 Enalapril; iw - Home Meds: 14:03 atorvastatin 20 mg Oral tab 1 tab once daily [Active]; diclofenac sodium 75 mg Oral iw TbEC 1 tab 2 times per day [Active]; [place] 5-325 mg Oral tab every 8 hours [Active]; prednisone 10 mg Oral tab once daily [Active]; warfarin 6 mg Oral tab 1 tab once daily [Active]; warfarin 5 mg Oral tab 1 tab once daily [Active]; - PMHx: 14:03 "heart valve replacement"; Cerebrovascular accident; bleeding ulcers; Aortic Stenosis; iw Ataxia; acute, resolved now; CAD; COPD; dyspnea; fatigue; Hyperlipidemia; Hypertension; Hypertensive disorder; Hypokalemia; melena; Myocardial infarction; syncope; Tachycardia; TIA; Vertigo; - Immunization history:: Adult Immunizations unknown. - Social history:: Smoking status: unknown. Screenin:45 Abuse screen: Denies threats or abuse. Denies injuries from another. Nutritional jg9 screening: No deficits noted. Tuberculosis screening: No symptoms or risk factors identified. Fall Risk None identified. Assessment: 17:00 Reassessment: No changes from previously documented assessment. Patient and/or family jg9 updated on plan of care and expected duration. Pain level reassessed. Patient is alert, oriented x 3, equal unlabored respirations, skin warm/dry/pink. Pain: Complains of pain in groin. Vital Signs: 14:01 BP 137 / 62; Pulse 58; Resp 16; Temp 97.2; Pulse Ox 97% on R/A; iw 17:30 BP 164 / 100; Pulse 57; Resp 17 S; Pulse Ox 98% on R/A; jg9 18:00 BP 156 / 86; Pulse 66; Resp 18 S; Pulse Ox 99% ; jg9 [place] Coma Score: 17:14 Eye Response: spontaneous(4). Verbal Response: oriented(5). Motor Response: obeys mukesh commands(6). Total: 15. ED Course: 13:20 Patient arrived in ED. mr 13:20 Toya Ortega is Private Physician. mr 14:01 Triage completed. iw 14:03 Arm band placed on. iw 16:49 Sathish Mckeon MD is Attending Physician. mukesh 16:54 Layla Rosado RN is Primary Nurse. jg9 17:00 Patient has correct armband on for positive identification. Bed in low position. Call jg9 light in reach. Side rails up X 1. 17:00 attempted insertion of a catheter without success-post residual void 22 mL patient jg9 urinated 300 mL in urinal. 17:45 ulrich insertion. jg9 18:05 Toya Ortega is Referral Physician. mukesh 18:05 Bon Alexander MD is Referral Physician. mukesh 18:40 Patient did not have IV access during this emergency room visit. jg9 Administered Medications: 18:35 Not Given (Patient Refused): Augmentin (Amoxicillin-Clavulanate) 875 mg PO once jg9 18:35 Not Given (Patient Refused): Flomax (tamsulosin) 0.4 mg PO once jg9 Medication: 18:40 VIS not applicable for this client. jg9 Outcome: 18:05 Discharge ordered by . mukesh 18:35 Patient left the ED. iw 18:40 Discharged to home ambulatory. jg9 18:40 Condition: stable 18:40 Discharge instructions given to patient, Instructed on discharge instructions, follow up and referral plans. Demonstrated understanding of instructions, follow-up care, Prescriptions given X 2. Signatures: Sathish Mckeon MD MD cha Rivera, Mary mr Williams, Irene, RN RN iw Layla Rosado RN RN jg9 Corrections: (The following items were deleted from the chart) 14:03 14:00 Chief complaint: Spouse and/or significant other states: home health nurse tried iw to catheterize him and was unable to iw
[2021-09-18 19:05] VITALS: BP 137/62; TEMP 97.2; O2SAT 97
== END 2021-09-18 18:35 | disposition home or self-care (01) ==
LOC: ER 13:17
DX: R32 Unspecified urinary incontinence (principal); Z85.46 Personal history of malignant neoplasm of prostate; I10 Essential (primary) hypertension; I25.2 Old myocardial infarction; Z95.4 Presence of other heart-valve replacement; Z86.73 Personal history of transient ischemic attack (TIA), and cerebral infarction without residual deficits; Z88.8 Allergy status to other drugs, medicaments and biological substances
CPT/HCPCS: 99282

== ENCOUNTER 2021-10-07 13:31 | Emergency (ER) | payer MEDICARE ==
--- OUTSIDE RECORDS SUMMARY | 2021-10-07 13:42 | XMS REPORT | Continuity of Care Document ---
:1935 Author Organization [facility] t Address [address] [place] [address] Care Team Providers Name Role Phone ARMOND LEONE Igor Primary Care Physician Unavailable ZOYA MIRANDA Attending Clinician Unavailable CECILIO MOLINA Attending Clinician Unavailable Carley GREEN Attending Clinician Unavailable Carley Correia Attending Clinician Doctor Unassigned, [place] Attending Clinician Unavailable JOCELYNN HILL Attending Clinician Unavailable MIKAELA HAMMOND Attending Clinician Unavailable Eduardo Grant MD L Attending Clinician Marquis Crabtree Attending Clinician Ajibade_O_AH Attending Clinician Unavailable Robbie Car MD Attending Clinician ROBBIE CAR Attending Clinician Unavailable Nurse, Adc Surgery Gu Attending Clinician Unavailable Mccall DO, [place] Attending Clinician Gramm COMIC BOOK ARTISTGloria A Attending Clinician , [facility] Surg Spec Procedure Attending Clinician Unavailable Ige-[place]_J_AH Attending Clinician Unavailable JULIET MILLER Attending Clinician Unavailable LASHON VALLADARES Attending Clinician Unavailable ZOYA MIRANDA Admitting Clinician Unavailable CECILIO MOLINA Admitting Clinician Unavailable Carley GREEN Admitting Clinician Unavailable XIOMARA SETHI Admitting Clinician Unavailable Ajibade_O_AH Admitting Clinician Unavailable FIDELINA FAROOQ Admitting Clinician Unavailable Ige-[place]_J_AH Admitting Clinician Unavailable Payers Payer Name Policy Type Policy Number Effective Date Expiration Date S musa HOOD PLUS [id number] 2018 CLASSIC/VALUE 00:00:00 AARP/MEDICARE [id number] 2015 COMPLETE 00:00:00 [employer] MEDICARE ADV [id number] 2019 00:00:00 DEVOTED HEALTH [id number] 2021 (MEDICARE 00:00:00 REPLACEMENT HMO) DEVOTED HEALTH [id number] 2021 MEDICARE ADVANTAGE 00:00:00 [place]AN [place] - [id number] 2019 [place]OS[place]US (MEDICARE 00:00:00 REPLACEMENT/ADVANTA GE - HMO) GOLD PLUS [id number] 2020 MEDICARE/HMO 00:00:00 AARP MCR ADVANTAGE [id number] 2015 [facility] 00:00:00 MEDICARE PART A \\T\\ [id number] 2015 B - MEDICARE 00:00:00 Problems Condition Condition Condition Status Onset Resolution Last Treating Co mments Source Name Details Category Date Date Treatment Clinician Date Neuropathy Neuropathy Problem Active [facility] due to Due to 12 Family diabetes Diabetes 00:00: Practi c mellitus Mellitus 00 e Overactive Overactive Problem Active [facility] bladder Bladder 03-18 Family 00:00: Practic 00 e Hyperlipid Hyperlipid Problem Active [facility] emia emia -04 Family 00:00: Practic 00 e Hypertensi Hypertensi Problem Active [facility] ve ve 1-04 Family disorder Disorder 00:00: Practi c 00 e 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 00:00: Practic block Block 00 e Cardiac Cardiac Problem Active [facility] arrhythmia Arrhythmia 1-04 [facility] 00:00: Practic 00 e Cerebrovas Cerebrovas Problem Active [facility] cular cular 1-04 Family accident Accident 00:00: Practi c 00 e Asthma Asthma Problem Active [place] 1-04 Family 00:00: Practic 00 e 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 ICD10 Diagnosis Term Integrity Manager Utility Other Other Disease Active [facility] secondary secondary 203 ity of hypertensi hypertensi 00:00: [place] on, benign on, benign 00 Me dical Branch Obstructiv Obstructiv Disease Active Overview : Univers e sleep e sleep 2-03 Formattin ity o f apnea apnea 00:00: g of this note Medical might be Branch different from the original. ICD10 Diagnosis Term Integrity Manager Utility HLD HLD Disease Active Overview: Univer s (hyperlipi (hyperlipi 2-03 Formattin ity of demia) demia) 00:00: g of this [place] note Medical might be Branch different from the original. ICD10 Diagnosis Term Integrity Manager Utility Allergies, Adverse Reactions, Alerts Allergy Allergy Status Severity Reaction(s) Onset Inactive Treating Comm ents Source Name Type Date Date Clinician DIPHENHY Allergy Active 2019-03 [facility] DRAMINE 0-23 HCL 00:00: 00 ENALAPRI Allergy Active Hives 2014-03 [facility] L 1- 00:00: 00 NO KNOWN Drug Active Univers ALLERGIE Class ity of S [facility] Social History Social Habit Start Date Stop Date Quantity Comments Source Exposure to 2021-08-22 2021-09-01 Not sure [facility] SARS-CoV-2 (event) 00:00:00 17:20:00 Medica Branch Sex Assigned At [birth year] [facility] 00:00:00 00:00:00 [facility] Smoking Status Start Date Stop Date Source Unknown if ever smoked [facility] Medications Ordered Filled Start Stop Current Ordering Indication Dosage Frequency Signature Comments Components Source Medication Medication Date Date Medication? Clinician (SIG) Name Name cephALEXin 2021- No 500mg 500 mg, Un henry (KEFLEX) 09-02 Oral, ity of capsule 500 03:30: 02:32 ONCE, 1 [place] mg 00 :00 dose, On Medical [facility] Branch 09/01/21 at 2230, WINDY
Re ason for Anti-Infec tive: Documented Infection< br>Documen dena Infection Site: Urine
D uration of Therapy: 10 days enoxaparin 2021- No 1mg/kg 80 mg Uni vers (LOVENOX) 09-02 (rounded ity o f injection 01:45: 01:58 [place] 81.6 [place] 80 mg 00 :00 mg = 1 Medical mg/kg Branch ?81.6 kg), Subcutaneo us, ONCE, 1 dose, On Tue09/01/21 at 2045, WINDY NaCl 0.9% 2021- No 500mL at 999 Univ ers (NS) bolus 09-02 mL/hr, 500 it y of infusion 00:45: 01:47 mL, IV [place] 500 mL 00 :00 Infusion, Medical ONCE, 1 Branch dose, On Tue09/01/21 at 1945, STAT magnesium 2021- No 2g 2 g, IV Univ ers sulfate in 09-02 Piggyback, it y of water 2 00:15: 00:53 Administer Bran as gram/50 mL 00 :00 over 60 Medica l (4 %) Minutes, Branch infusion 2 ONCE, 1 g dose, On Tue09/01/21 at 1915, Routine cephALEXin 2021- Yes [id number] 500mg Take 1 Univers (KEFLEX) 09-01 capsule by ity of 500 mg 00:00: 04:59 mouth 3 [place] capsule 00 :00 (three) Medical times Branch daily for 10 days. diclofenac 2020-03 Yes [id number] 75mg Take 1 [facility] 75 mg EC 1- 9109 tablet by ity of tablet 00:00: mouth 2 (two) Medical times Branch daily with meals. diclofenac 2020-03 Yes [id number] 75mg Take 1 [facility] 75 mg EC 1- 9109 tablet by ity of tablet 00:00: mouth (two) Medical times Branch daily with meals. diclofenac 2020-03 Yes [id number] 75mg Take 1 [facility] 75 mg EC 1- 9109 tablet by ity of tablet 00:00: mouth 2 (two) Medical times Branch daily with meals. diclofenac 2020-03 Yes [id number] 75mg Take 1 [facility] 75 mg EC 1- 9109 tablet by ity of tablet 00:00: mouth 2 00 (two) Medical times Branch daily with meals. diclofenac 2020- No [id number] 75mg Take 1 Univers 75 mg EC 8-10 - 9109 tablet by ity o f tablet 00:00: 04:59 mouth 2 [place] 00 :00 (two) Medical times Branch daily with meals for 30 days. diclofenac Yes [id number] 75mg Take 1 Univers 75 mg EC 7-08 9109 tablet by ity of tablet 00:00: mouth 2 (two) Medical times Branch daily with meals. diclofenac Yes [id number] 75mg Take 1 [facility] 75 mg EC 7-08 9109 tablet by ity of tablet 00:00: mouth 2 00 (two) Medical times Branch daily with meals. diclofenac Yes [id number] 75mg Take 1 [facility] 75 mg EC 7-08 9109 tablet by ity of tablet 00:00: mouth (two) Medical times Branch daily with meals. diclofenac 2020-0 2021- No [id number] 75mg Take 1 Univers 75 mg EC 7-08 - 9109 tablet by ity o f tablet 00:00: 00:00 mouth 00 :00 (two) Medical times Branch daily with meals. diclofenac 2020-0 Yes [id number] 75mg Take 1 Univers 75 mg EC 6-10 9109 tablet by ity of tablet 00:00: mouth (two) Medical times Branch daily with meals. diclofenac 2020-0 Yes [id number] 75mg Take 1 Univers 75 mg EC 6-10 9109 tablet by ity of tablet 00:00: mouth (two) Medical times Branch daily with meals. diclofenac 2020-0 Yes [id number] 75mg Take 1 Univers 75 mg EC 6-10 9109 tablet by ity of tablet 00:00: mouth (two) Medical times Branch daily with meals. diclofenac 2020-0 Yes [id number] 75mg Take 1 Univers 75 mg EC 6-10 9109 tablet by ity of tablet 00:00: mouth (two) Medical times Branch daily with meals. diclofenac 2020-0 Yes [id number] 75mg Take 1 Univers 75 mg EC 6-10 9109 tablet by ity of tablet 00:00: mouth (two) Medical times Branch daily with meals. diclofenac 2020-0 Yes [id number] 75mg Take 1 Univers 75 mg EC 6-10 9109 tablet by ity of tablet 00:00: mouth (two) Medical times Branch daily with meals. diclofenac 2020-0 Yes [id number] 75mg Take 1 Univers 75 mg EC 6-10 9109 tablet by ity of tablet 00:00: mouth (two) Medical times Branch daily with meals. diclofenac 1-0 Yes [id number] 75mg Take 1 Univers 75 mg EC [...] daily with meals. diclofenac 2021-0 2021- No [id number] 75mg Take 1 Univers 75 mg EC [...] tablet by ity of tablet 00:00: mouth [place] (two) Medical times Branch daily with meals. [...] tablet by ity of tablet 00:00: mouth [place] (two) Medical times Branch daily with meals. diclofenac 2021-0 Yes 75mg Take 1 Unive rs 75 mg EC 1-14 tablet by ity of tablet 00:00: mouth (two) Medical times Branch daily with meals. diclofenac 2021-0 Yes 75mg Take 1 Unive rs 75 mg EC 1-14 tablet by ity of tablet 00:00: mouth (two) Medical times Branch daily with meals. diclofenac 2019- 2020- No [id number] 75mg Take 1 Univers 75 mg EC 1-23 12-24 9109 tablet by ity o f tablet 00:00: 05:59 mouth 2 [place] 00 :00 (two) Medical times Branch daily with meals for 30 days. diclofenac 2020-0 Yes [id number] 75mg Take 1 Univers 75 mg EC 7-14 9109 tablet by ity of tablet 00:00: mouth 2 [place] 00 (two) Medical times Branch daily with meals. diclofenac 2020-0 Yes [id number] 75mg Take 1 Univers 75 mg EC 7-14 9109 tablet by ity of tablet 00:00: mouth [place] (two) Medical times Branch daily with meals. diclofenac 2020-0 Yes [id number] 75mg Take 1 Univers 75 mg EC 7-14 9109 tablet by ity of tablet 00:00: mouth (two) Medical times Branch daily with meals. diclofenac 2020-0 Yes [id number] 75mg Take 1 Univers 75 mg EC 7-14 9109 tablet by ity of tablet 00:00: mouth (two) Medical times Branch daily with meals. diclofenac 2020-0 Yes [id number] 75mg Take 1 Univers 75 mg EC 7-14 9109 tablet by ity of tablet 00:00: mouth (two) Medical times Branch daily with meals. diclofenac 2020-0 Yes [id number] 75mg Take 1 Univers 75 mg EC 7-14 9109 tablet by ity of tablet 00:00: mouth [place] (two) Medical times Branch daily with meals. diclofenac 2020-0 Yes [id number] 75mg Take 1 Univers 75 mg EC 7-14 9109 tablet by ity of tablet 00:00: mouth [place] (two) Medical times Branch daily with meals. diclofenac 2020-0 Yes [id number] 75mg Take 1 Univers 75 mg EC 7-14 9109 tablet by ity of tablet 00:00: mouth [place] (two) Medical times Branch daily with meals. diclofenac 2020-0 Yes [id number] 75mg Take 1 Univers 75 mg EC 7-14 9109 tablet by ity of tablet 00:00: mouth [place] (two) Medical times Branch daily with meals. diclofenac 2020-0 Yes [id number] 75mg Take 1 Univers 75 mg EC 7-14 9109 tablet by ity of tablet 00:00: mouth [place] (two) Medical times Branch daily with meals. diclofenac 2020-0 Yes [id number] 75mg Take 1 Univers 75 mg EC 7-14 9109 tablet by ity of tablet 00:00: mouth [place] (two) Medical times Branch daily with meals. diclofenac 2020-0 Yes [id number] 75mg Take 1 Univers 75 mg EC 7-14 9109 tablet by ity of tablet 00:00: mouth [place] (two) Medical times Branch daily with meals. diclofenac 2020-0 Yes [id number] 75mg Take 1 Univers 75 mg EC 7-14 9109 tablet by ity of tablet 00:00: mouth (two) Medical times Branch daily with meals. diclofenac 2020-0 Yes [id number] 75mg Take 1 Univers 75 mg EC 7-14 9109 tablet by ity of tablet 00:00: mouth (two) Medical times Branch daily with meals. diclofenac 2020-0 Yes [id number] 75mg Take 1 [facility] 75 mg EC 7-14 9109 tablet by ity of tablet 00:00: mouth (two) Medical times Branch daily with meals. diclofenac 2020-0 Yes [id number] 75mg Take 1 Univers 75 mg EC 7-14 9109 tablet by ity of tablet 00:00: mouth (two) Medical times Branch daily with meals. diclofenac 2020-0 Yes [id number] 75mg Take 1 Univers 75 mg EC 7-14 9109 tablet by ity of tablet 00:00: mouth (two) Medical times Branch daily with meals. diclofenac 2020-0 Yes [id number] 75mg Take 1 Univers 75 mg EC 7-14 9109 tablet by ity of tablet 00:00: mouth (two) Medical times Branch daily with meals. diclofenac 2020-0 Yes [id number] 75mg Take 1 [facility] 75 mg EC 7-14 9109 tablet by ity of tablet 00:00: mouth (two) Medical times Branch daily with meals. diclofenac 2020-0 Yes [id number] 75mg Take 1 Univers 75 mg EC 7-14 9109 tablet by ity of tablet 00:00: mouth (two) Medical times Branch daily with meals. diclofenac 2020-0 Yes [id number] 75mg Take 1 Univers 75 mg EC 7-14 9109 tablet by ity of tablet 00:00: mouth (two) Medical times Branch daily with meals. diclofenac 2020-0 Yes [id number] 75mg Take 1 Univers 75 mg EC 7-14 9109 tablet by ity of tablet 00:00: mouth (two) Medical times Branch daily with meals. diclofenac 2020-0 Yes [id number] 75mg Take 1 Univers 75 mg EC 7-14 9109 tablet by ity of tablet 00:00: mouth (two) Medical times Branch daily with meals. amoxicillin 2020-0 Yes [id number] 500mg Take 1 Univers 500 mg 6-28 capsule by ity of capsule 00:00: mouth 3 (three) Medical times Branch daily. amoxicillin 2020-0 Yes [id number] 500mg Take 1 Univers 500 mg 6-28 capsule by ity of capsule 00:00: mouth 3 (three) Medical times Branch daily. amoxicillin 2020-0 Yes [id number] 500mg Take 1 Univers 500 mg 6-28 capsule by ity of capsule 00:00: mouth 3 (three) Medical times Branch daily. amoxicillin 2020-0 Yes [id number] 500mg Take 1 Univers 500 mg 6-28 capsule by ity of capsule 00:00: mouth 3 (three) Medical times Branch daily. amoxicillin 2020-0 Yes [id number] 500mg Take 1 Univers 500 mg 6-28 capsule by ity of capsule 00:00: mouth (three) Medical times Branch daily. amoxicillin 2020-0 Yes [id number] 500mg Take 1 Univers 500 mg 6-28 capsule by ity of capsule 00:00: mouth (three) Medical times Branch daily. amoxicillin 2020-0 Yes [id number] 500mg Take 1 Univers 500 mg 6-28 capsule by ity of capsule 00:00: mouth (three) Medical times Branch daily. amoxicillin 2020-0 Yes [id number] 500mg Take 1 Univers 500 mg 6-28 capsule by ity of capsule 00:00: mouth (three) Medical times Branch daily. amoxicillin 2020-0 Yes [id number] 500mg Take 1 Univers 500 mg 6-28 capsule by ity of capsule 00:00: mouth (three) Medical times Branch daily. amoxicillin 2020-0 Yes [id number] 500mg Take 1 Univers 500 mg 6-28 capsule by ity of capsule 00:00: mouth 3 (three) Medical times Branch daily. amoxicillin 2020-0 Yes [id number] 500mg Take 1 Univers 500 mg 6-28 capsule by ity of capsule 00:00: mouth 3 (three) Medical times Branch daily. amoxicillin 2020-0 Yes [id number] 500mg Take 1 Univers 500 mg 6-28 capsule by ity of capsule 00:00: mouth 3 (three) Medical times Branch daily. amoxicillin 2020-0 Yes [id number] 500mg Take 1 Univers 500 mg 6-28 capsule by ity of capsule 00:00: mouth [place] (three) Medical times Branch daily. amoxicillin 2020-0 Yes [id number] 500mg Take 1 Univers 500 mg 6-28 capsule by ity of capsule 00:00: mouth 3 [place] (three) Medical times Branch daily. amoxicillin 2020-0 Yes [id number] 500mg Take 1 Univers 500 mg 6-28 capsule by ity of capsule 00:00: mouth [place] (three) Medical times Branch daily. amoxicillin 2020-0 Yes [id number] 500mg Take 1 Univers 500 mg 6-28 capsule by ity of capsule 00:00: mouth [place] (three) Medical times Branch daily. amoxicillin 2020-0 Yes [id number] 500mg Take 1 Univers 500 mg 6-28 capsule by ity of capsule 00:00: mouth [address] [place] [address] [facility] Medical times Branch daily. amoxicillin 2020-0 Yes [id number] 500mg Take 1 Univers 500 mg 6-28 capsule by ity of capsule 00:00: mouth [address] [place] [address] ([facility]) Medical times Branch daily. amoxicillin 2020-0 Yes [id number] 500mg Take 1 Univers 500 mg 6-28 capsule by ity of capsule 00:00: mouth [place] ([facility]) Medical times Branch daily. amoxicillin 2020-0 Yes [id number] 500mg Take 1 Univers 500 mg 6-28 capsule by ity of capsule 00:00: mouth [place] ([facility]) Medical times Branch daily. amoxicillin 2020-0 Yes [id number] 500mg Take 1 Univers 500 mg 6-28 capsule by ity of capsule 00:00: mouth [address] [place] [address] (three) Medical times Branch daily. amoxicillin 2020-0 Yes [id number] 500mg Take 1 Univers 500 mg 6-28 capsule by ity of capsule 00:00: mouth [address] [place] [address] (three) Medical times Branch daily. amoxicillin 2020-0 Yes [id number] 500mg Take 1 Univers 500 mg 6-28 capsule by ity of capsule 00:00: mouth 3 [place] (three) Medical times Branch daily. amoxicillin 2020-0 Yes [id number] 500mg Take 1 Univers 500 mg 6-28 capsule by ity of capsule 00:00: mouth [address] [place] [address] (three) Medical times Branch daily. diclofenac 2020-0 [...] by ity of tablet 00:00: mouth 2 [place] 00 (two) Medical times Branch daily with meals. diclofenac 2020-0 Yes 75mg Take 1 Unive rs 75 mg EC 6-26 tablet by ity of tablet 00:00: mouth 2 [place] 00 (two) Medical times Branch daily with meals. mirabegron 2020-0 2020- No [id number] 25mg Take 1 Univers 25 mg 6-05 07-06 tablet by ity of tablet 00:00: 04:59 mouth [place] 00 :00 daily for Medical 30 days. Branch mirabegron 2020-0 2020- No [id number] 25mg Take 1 Univers 25 mg 6-05 07-06 tablet by ity of tablet 00:00: 04:59 mouth [place] 00 :00 daily for Medical 30 days. Branch mirabegron 2020-0 2020- No [id number] 25mg Take 1 Univers 25 mg 6-05 07-06 tablet by ity of tablet 00:00: 04:59 mouth [place] 00 :00 daily for Medical 30 days. Branch mirabegron 2020-0 2020- No [id number] 25mg Take 1 Univers 25 mg 6-05 07-06 tablet by ity of tablet 00:00: 04:59 mouth [place] 00 :00 daily for Medical 30 days. Branch mirabegron 2020-0 2020- No [id number] 25mg Take 1 Univers 25 mg 6-05 07-06 tablet by ity of tablet 00:00: 04:59 mouth [place] 00 :00 daily for Medical 30 days. Branch mirabegron 2020-0 2020- No [id number] 25mg Take 1 Univers 25 mg 6-05 07-06 tablet by ity of tablet 00:00: 04:59 mouth [place] 00 :00 daily for Medical 30 days. Branch diclofenac 2020-0 Yes 75mg Take 1 Unive rs 75 mg EC 4-13 tablet by ity of tablet 00:00: mouth 2 [place] 00 (two) Medical times Branch daily with meals. diclofenac 2020-0 Yes 75mg Take 1 Unive rs 75 mg EC 4-13 tablet by ity of tablet 00:00: mouth 2 [place] 00 (two) Medical times Branch daily with [...] o f tablet 00:00: 00:00 mouth 2 00 :00 (two) Medical times [...] by ity of tablet 00:00: mouth 2 [place] (two) Medical times Branch daily with meals. diclofenac 2020-0 Yes 75mg Take 1 Unive rs 75 mg EC 3-17 tablet by ity of tablet 00:00: mouth 2 [place] 00 (two) Medical times Branch daily with meals. diclofenac 2020-0 Yes 75mg Take 1 Unive rs 75 mg EC 3-17 tablet by ity of tablet 00:00: mouth 2 [place] 00 (two) Medical times Branch daily with meals. diclofenac 2020-0 Yes 75mg Take 1 Unive rs 75 mg EC 3-17 tablet by ity of tablet 00:00: mouth 2 [place] (two) Medical times Branch daily with meals. diclofenac 2020-0 Yes 75mg Take 1 Unive rs 75 mg EC 3-17 tablet by ity of tablet 00:00: mouth 2 [place] (two) Medical times Branch daily with meals. diclofenac 2020-0 Yes 75mg Take 1 Unive rs 75 mg EC 3-17 tablet by ity of tablet 00:00: mouth 2 [place] (two) Medical times Branch daily with meals. diclofenac 2020-0 2020- No 75mg Take 1 Univ ers 75 mg EC 3-17 07-14 tablet by ity o f tablet 00:00: 00:00 mouth 2 [place] 00 :00 (two) Medical times Branch daily with meals. gentamicin 2020-0 2020- No 80mg Univer s injection 05-04 ity of 80 mg 19:00: 17:48 [place] 00 :00 Medical Branch gentamicin 2020-0 2020- No 80mg 80 mg, IV U nivers injection 05-04 Piggyback, ity of 80 mg 19:00: 17:48 ONCE, 1 [place] 00 :00 dose, Fri Medical 05/04/19 at Branch 1300, WINDY
Re ason for Anti-Infec tive: Surgical Prophylaxi s
Surgi ezekiel Prophylaxi s: Genitourin michelle
Dur ation of therapy: within 24 hours of surgery gentamicin 2020-0 2020- No 80mg Univer s injection 05-04 ity of 80 mg 19:00: 17:48 [place] 00 :00 Medical Branch gentamicin 2020-0 2020- No 80mg 80 mg, IV U nivers injection 05-04 Piggyback, ity of 80 mg 19:00: 17:48 ONCE, 1 [place] 00 :00 dose, Fri Medical 05/04/19 at Branch 1300, WINDY
Re ason for Anti-Infec tive: Surgical Prophylaxi s
Surgi ezekiel Prophylaxi s: Genitourin michelle
Dur ation of therapy: within 24 hours of surgery cephALEXin 2020-0 2020- No [id number] 500mg Take 2 Univers 250 mg 05-04- capsules ity of capsule 00:00: 05:59 by mouth [place] 00 :00 every 12 Medical (twelve) Branch hours for 3 days. cephALEXin 2020-0 2020- No [id number] 500mg Take 2 Univers 250 mg 05-04- capsules ity of capsule 00:00: 05:59 by mouth [place] 00 :00 every 12 Medical (twelve) Branch hours for 3 days. atorvastati 2020-0 Yes 20mg Take 20 mg Univers n 20 mg 2-20 by mouth ity of tablet 00:00: daily. [address] Branch metoprolol 2020-0 Yes 25mg Take 25 mg U nivers tartrate 25 2-20 by mouth 2 it y of mg tablet 00:00: (two) [place] 00 times Medical daily. Branch atorvastati 2020-0 Yes 20mg Take 20 mg Univers n 20 mg 2-20 by mouth ity of tablet 00:00: daily. [address] Branch metoprolol 2020-0 Yes 25mg Take 25 mg U nivers tartrate 25 2-20 by mouth 2 it y of mg tablet 00:00: (two) [place] 00 times Medical daily. Branch atorvastati 2020-0 Yes 20mg Take 20 mg Univers n 20 mg 2-20 by mouth ity of tablet 00:00: daily. [place] [address] Medical Branch metoprolol 2020-0 Yes 25mg Take 25 mg U nivers tartrate 25 2-20 by mouth 2 it y of mg tablet 00:00: (two) [place] 00 times Medical daily. Branch atorvastati 2020-0 Yes 20mg Take 20 mg Univers n 20 mg 2-20 by mouth ity of tablet 00:00: daily. [address] Branch metoprolol 2020-0 Yes 25mg Take 25 mg U nivers tartrate 25 2-20 by mouth 2 it y of mg tablet 00:00: (two) [place] 00 times Medical daily. Branch atorvastati 2020-0 [...] it y of mg tablet 00:00: (two) [place] 00 times Medical daily. Branch atorvastati 2020-0 Yes 20mg Take 20 mg Univers n 20 mg 2-20 by mouth ity of tablet 00:00: daily. [place] Medical Branch metoprolol 2020-0 Yes 25mg Take 25 mg U nivers tartrate 25 2-20 by mouth 2 it y of mg tablet 00:00: (two) [place] 00 times Medical daily. Branch atorvastati 2020-0 Yes 20mg Take 20 mg Univers n 20 mg 2-20 by mouth ity of tablet 00:00: daily. Medical Branch metoprolol 2020-0 Yes 25mg Take 25 mg U nivers tartrate 25 2-20 by mouth 2 it y of mg tablet 00:00: (two) [place] 00 times Medical daily. Branch atorvastati 2020-0 Yes 20mg Take 20 mg Univers n 20 mg 2-20 by mouth ity of tablet 00:00: daily. Medical Branch metoprolol 2020-0 Yes 25mg Take 25 mg U nivers tartrate 25 2-20 by mouth 2 it y of mg tablet 00:00: (two) [place] 00 times Medical daily. Branch atorvastati 2020-0 Yes 20mg Take 20 mg Univers n 20 mg 2-20 by mouth ity of tablet 00:00: daily. [place] Medical Branch metoprolol 2020-0 Yes 25mg Take 25 mg U nivers tartrate 25 2-20 by mouth 2 it y of mg tablet 00:00: (two) [place] 00 times Medical daily. Branch atorvastati 2020-0 Yes 20mg Take 20 mg Univers n 20 mg 2-20 by mouth ity of tablet 00:00: daily. Medical Branch metoprolol 2020-0 Yes 25mg Take 25 mg U nivers tartrate 25 2-20 by mouth 2 it y of mg tablet 00:00: (two) [place] 00 times Medical daily. Branch atorvastati 2020-0 Yes 20mg Take 20 mg Univers n 20 mg 2-20 by mouth ity of tablet 00:00: daily. Medical Branch metoprolol 2020-0 Yes 25mg Take 25 mg U nivers tartrate 25 2-20 by mouth 2 it y of mg tablet 00:00: (two) [place] 00 times Medical daily. Branch atorvastati 2020-0 Yes 20mg Take 20 mg Univers n 20 mg 2-20 by mouth ity of tablet 00:00: daily. Medical Branch metoprolol 2020-0 Yes 25mg Take 25 mg U nivers tartrate 25 2-20 by mouth 2 it y of mg tablet 00:00: (two) [place] times Medical daily. Branch atorvastati 2020-0 Yes 20mg Take 20 mg Univers n 20 mg 2-20 by mouth ity of tablet 00:00: daily. Medical Branch metoprolol 2020-0 Yes 25mg Take 25 mg U nivers tartrate 25 2-20 by mouth 2 it y of mg tablet 00:00: (two) [place] 00 times Medical daily. Branch atorvastati 2020-0 Yes 20mg Take 20 mg [facility] 20 mg 2-20 by mouth ity of tablet 00:00: daily. [facility] Branch metoprolol 2020-0 Yes 25mg Take 25 mg U nivers tartrate 25 2-20 by mouth 2 it y of mg tablet 00:00: (two) [place] 00 times Medical daily. Branch atorvastati 2020-0 Yes 20mg Take 20 mg [facility] n 20 mg 2-20 by mouth ity of tablet 00:00: daily. [facility] metoprolol 2020-0 Yes 25mg Take 25 mg [facility] nivers tartrate 25 2-20 by mouth 2 it y of mg tablet 00:00: (two) [place] 00 times Medical daily. Branch atorvastati 2020-0 Yes 20mg Take 20 mg [facility] n 20 mg 2-20 by mouth ity of tablet 00:00: daily. [facility] metoprolol 2020-0 Yes 25mg Take 25 mg [facility] n[facility] tartrate 25 2-20 by mouth 2 it y of mg tablet 00:00: (two) [place] 00 times Medical daily. Branch atorvastati 2020-0 Yes 20mg Take 20 mg [facility] n 20 mg 2-20 by mouth ity of tablet 00:00: daily. [facility] metoprolol 2020-0 Yes 25mg Take 25 mg [facility] nivers tartrate 25 2-20 by mouth 2 it y of mg tablet 00:00: (two) times Medical daily. Branch atorvastati 2020-0 Yes 20mg Take 20 mg [facility] n 20 mg 2-20 by mouth ity of tablet 00:00: daily. [facility] metoprolol 2020-0 Yes 25mg Take 25 mg [facility] nivers tartrate 25 2-20 by mouth 2 it y of mg tablet 00:00: (two) [place] [facility] daily. Branch atorvastati 2020-0 Yes 20mg Take 20 mg [facility] n 20 mg 2-20 by mouth ity of tablet 00:00: daily. [facility] metoprolol 2020-0 Yes 25mg Take 25 mg [facility] nivers tartrate 25 2-20 by mouth 2 it y of mg tablet 00:00: (two) [place] [facility] daily. Branch atorvastati 2020-0 Yes 20mg Take 20 mg [facility] n 20 mg 2-20 by mouth ity of tablet 00:00: daily. [facility] metoprolol 2020-0 Yes 25mg Take 25 mg [facility] nivers tartrate 25 2-20 by mouth 2 it y of mg tablet 00:00: (two) [place] [facility] daily. Branch atorvastati 2020-0 Yes 20mg Take 20 mg [facility] n 20 mg 2-20 by mouth ity of tablet 00:00: daily. [facility] metoprolol 2020-0 Yes 25mg Take 25 mg [facility] nivers tartrate 25 2-20 by mouth 2 it y of mg tablet 00:00: (two) [place] times Medical daily. Branch atorvastati 2020-0 Yes 20mg Take 20 mg [facility] n 20 mg 2-20 by mouth ity of tablet 00:00: daily. [facility] metoprolol 2020-0 Yes 25mg Take 25 mg [facility] nivers tartrate 25 2-20 by mouth 2 it y of mg tablet 00:00: (two) [place] 00 times Medical daily. Branch atorvastati 2020-0 [...] it y of mg tablet 00:00: (two) [place] 00 times Medical daily. Branch atorvastati 2020-0 Yes 20mg Take 20 mg [facility] n 20 mg 2-20 by mouth ity of tablet 00:00: daily. [facility] metoprolol 2020-0 Yes 25mg Take 25 mg [facility] nivers tartrate 25 2-20 by mouth 2 it y of mg tablet 00:00: (two) [place] 00 times Medical daily. Branch atorvastati 2020-0 Yes 20mg Take 20 mg [facility] n 20 mg 2-20 by mouth ity of tablet 00:00: daily. [facility] metoprolol 2020-0 Yes 25mg Take 25 mg [facility] nivers tartrate 25 2-20 by mouth 2 it y of mg tablet 00:00: (two) [place] 00 times Medical daily. Branch atorvastati 2020-0 Yes 20mg Take 20 mg [facility] n 20 mg 2-20 by mouth ity of tablet 00:00: daily. [facility] metoprolol 2020-0 Yes 25mg Take 25 mg [facility] nivers tartrate 25 2-20 by mouth 2 it y of mg tablet 00:00: (two) [place] 00 times Medical daily. Branch atorvastati 2020-0 Yes 20mg Take 20 mg [facility] n 20 mg 2-20 by mouth ity of tablet 00:00: daily. [facility] metoprolol 2020-0 Yes 25mg Take 25 mg [facility] nivers tartrate 25 2-20 by mouth 2 it y of mg tablet 00:00: (two) [place] 00 times Medical daily. Branch atorvastati 2020-0 Yes 20mg Take 20 mg [facility] n 20 mg 2-20 by mouth ity of tablet 00:00: daily. [place] [facility] metoprolol 2020-0 Yes 25mg Take 25 mg [facility] nivers tartrate 25 2-20 by mouth 2 it y of mg tablet 00:00: (two) [place] 00 times Medical daily. Branch atorvastati 2020-0 Yes 20mg Take 20 mg [facility] n 20 mg 2-20 by mouth ity of tablet 00:00: daily. [place] [facility] metoprolol 2020-0 Yes 25mg Take 25 mg [facility] nivers tartrate 25 2-20 by mouth 2 it y of mg tablet 00:00: (two) [place] 00 times Medical daily. Branch atorvastati 2020-0 Yes 20mg Take 20 mg [facility] n 20 mg 2-20 by mouth ity of tablet 00:00: daily. [place] [facility] metoprolol 2020-0 Yes 25mg Take 25 mg [facility] nivers tartrate 25 2-20 by mouth 2 it y of mg tablet 00:00: (two) [place] 00 times Medical daily. Branch atorvastati 2020-0 Yes 20mg Take 20 mg [facility] n 20 mg 2-20 by mouth ity of tablet 00:00: daily. [place] [facility] metoprolol 2020-0 Yes 25mg Take 25 mg [facility] nivers tartrate 25 2-20 by mouth 2 it y of mg tablet 00:00: (two) [place] 00 times Medical daily. Branch atorvastati 2020-0 Yes 20mg Take 20 mg [facility] n 20 mg 2-20 by mouth ity of tablet 00:00: daily. [place] [facility] metoprolol 2020-0 Yes 25mg Take 25 mg [facility] nivers tartrate 25 2-20 by mouth 2 it y of mg tablet 00:00: (two) [place] 00 times Medical daily. Branch atorvastati 2020-0 Yes 20mg Take 20 mg [facility] n 20 mg 2-20 by mouth ity of tablet 00:00: daily. [place] [facility] metoprolol 2020-0 Yes 25mg Take 25 mg [facility] nivers tartrate 25 2-20 by mouth 2 it y of mg tablet 00:00: (two) [place] 00 times Medical daily. Branch atorvastati 2020-0 Yes 20mg Take 20 mg [facility] n 20 mg 2-20 by mouth ity of tablet 00:00: daily. Medical [facility] metoprolol 2020-0 Yes 25mg Take 25 mg [facility] nivers tartrate 25 2-20 by mouth 2 it y of mg tablet 00:00: (two) [place] [facility] daily. Branch atorvastati 2020-0 Yes 20mg Take 20 mg [facility] n 20 mg 2-20 by mouth ity of tablet 00:00: daily. Medical Branch metoprolol 2020-0 Yes 25mg Take 25 mg [facility] nivers tartrate 25 2-20 by mouth 2 it y of mg tablet 00:00: (two) [place] times Medical daily. Branch atorvastati 2020-0 Yes 20mg Take 20 mg [facility] n 20 mg 2-20 by mouth ity of tablet 00:00: daily. Medical [facility] metoprolol 2020-0 Yes 25mg Take 25 mg [facility] nivers tartrate 25 2-20 by mouth 2 it y of mg tablet 00:00: (two) [place] [facility] daily. Branch atorvastati 2020-0 Yes 20mg Take 20 mg [facility] n 20 mg 2-20 by mouth ity of tablet 00:00: daily. [facility] metoprolol 2020-0 Yes 25mg Take 25 mg [facility] nivers tartrate 25 2-20 by mouth 2 it y of mg tablet 00:00: (two) [place] [facility] daily. Branch atorvastati 2020-0 Yes 20mg Take 20 mg [facility] n 20 mg 2-20 by mouth ity of tablet 00:00: daily. [place] [facility] metoprolol 2020-0 Yes 25mg Take 25 mg [facility] nivers tartrate 25 2-20 by mouth 2 it y of mg tablet 00:00: (two) [place] [facility] daily. Branch atorvastati 2020-0 Yes 20mg Take 20 mg [facility] n 20 mg 2-20 by mouth ity of tablet 00:00: daily. Medical Branch metoprolol 2020-0 Yes 25mg Take 25 mg [facility] nivers tartrate 25 2-20 by mouth 2 it y of mg tablet 00:00: (two) [place] times Medical daily. Branch atorvastati 2020-0 Yes 20mg Take 20 mg [facility] n 20 mg 2-20 by mouth ity of tablet 00:00: daily. Medical Branch metoprolol 2020-0 Yes 25mg Take 25 mg [facility] nivers tartrate 25 2-20 by mouth 2 it y of mg tablet 00:00: (two) [place] 00 times Medical daily. Branch atorvastati 2020-0 Yes 20mg Take 20 mg [facility] n 20 mg 2-20 by mouth ity of tablet 00:00: daily. [place] [address] Medical Branch metoprolol 2020-0 Yes 25mg Take 25 mg U nivers tartrate 25 2-20 by mouth 2 it y of mg tablet 00:00: (two) [place] times Medical daily. Branch om 2020-0 Yes Take by Univers 3/E/linol/a 2-14 mouth. ity of la/oleic/gl 17:20: [place] a/lip 21 Medical (OMEGA Branch 3-6-9 ORAL) tamsulosin 2020-0 Yes Take by Univ ers 0.4 mg 24 2-14 mouth ity of hr capsule 17:20: daily. [place] [address] Medical Branch om 2020-0 Yes Take by Univers 3/E/linol/a 2-14 mouth. ity of la/oleic/gl 17:20: [place] a/lip 21 Medical (OMEGA Branch 3-6-9 ORAL) tamsulosin 2020-0 Yes Take by Univ ers 0.4 mg 24 2-14 mouth ity of hr capsule 17:20: daily. [place] [address] Medical Branch om 2020-0 Yes Take by Univers 3/E/linol/a 2-14 mouth. ity of la/oleic/gl 17:20: [place] a/lip 21 Medical (OMEGA Branch 3-6-9 ORAL) tamsulosin 2020-0 Yes Take by [facility] ers 0.4 mg 24 2-14 mouth ity of hr capsule 17:20: daily. [place] [address] Medical Branch om 2020-0 Yes Take by [facility] 3/E/linol/a 2-14 mouth. ity of la/oleic/gl 17:20: [place] a/lip 21 Medical (OMEGA Branch 3-6-9 ORAL) tamsulosin 2020-0 Yes Take by [facility] ers 0.4 mg 24 2-14 mouth ity of hr capsule 17:20: daily. [place] [address] Medical Branch om 2020-0 Yes Take by [facility] 3/E/linol/a 2-14 mouth. ity of la/oleic/gl 17:20: [place] a/lip 21 Medical (OMEGA Branch 3-6-9 ORAL) tamsulosin 2020-0 Yes Take by [facility] ers 0.4 mg 24 2-14 mouth ity of hr capsule 17:20: daily. [place] [address] Medical Branch om 2020-0 Yes Take by [facility] 3/E/linol/a 2-14 mouth. ity of la/oleic/gl 17:20: [place] a/lip 21 Medical (OMEGA Branch 3-6-9 ORAL) tamsulosin 2020-0 Yes Take by [facility] ers 0.4 mg 24 2-14 mouth ity of hr capsule 17:20: daily. [place] [address] Medical Branch om 2020-0 Yes Take by [facility] 3/E/linol/a 2-14 mouth. ity of la/oleic/gl 17:20: [place] a/lip 21 Medical (OMEGA Branch 3-6-9 ORAL) tamsulosin 2020-0 Yes Take by [facility] ers 0.4 mg 24 2-14 mouth ity of hr capsule 17:20: daily. [place] [address] Medical Branch om 2020-0 Yes Take by [facility] 3/E/linol/a 2-14 mouth. ity of la/oleic/gl 17:20: [place] a/lip 21 Medical (OMEGA Branch 3-6-9 ORAL) tamsulosin 2020-0 Yes Take by [facility] ers 0.4 mg 24 2-14 mouth ity of hr capsule 17:20: daily. [place] [address] Medical Branch om 2020-0 Yes Take by [facility] 3/E/linol/a 2-14 mouth. ity of la/oleic/gl 17:20: [place] a/lip 21 Medical (OMEGA Branch 3-6-9 ORAL) tamsulosin 2020-0 Yes Take by [facility] ers 0.4 mg 24 2-14 mouth ity of hr capsule 17:20: daily. [place] [address] Medical Branch om 2020-0 Yes Take by [facility] 3/E/linol/a 2-14 mouth. ity of la/oleic/gl 17:20: [place] a/lip 21 Medical (OMEGA Branch 3-6-9 ORAL) tamsulosin 2020-0 Yes Take by [facility] ers 0.4 mg 24 2-14 mouth ity of hr capsule 17:20: daily. [place] [address] Medical Branch om 2020-0 Yes Take by [facility] 3/E/linol/a 2-14 mouth. ity of la/oleic/gl 17:20: [place] a/lip 21 Medical (OMEGA Branch 3-6-9 ORAL) tamsulosin 2020-0 Yes Take by [facility] ers 0.4 mg 24 2-14 mouth ity of hr capsule 17:20: daily. [place] [address] Medical Branch om 2020-0 Yes Take by [facility] 3/E/linol/a 2-14 mouth. ity of la/oleic/gl 17:20: [place] a/lip 21 Medical (OMEGA Branch 3-6-9 ORAL) tamsulosin 2020-0 Yes Take by [facility] ers 0.4 mg 24 2-14 mouth ity of hr capsule 17:20: daily. [place] [address] Medical Branch om 2020-0 Yes Take by [facility] 3/E/linol/a 2-14 mouth. ity of la/oleic/gl 17:20: [place] a/lip 21 Medical (OMEGA Branch 3-6-9 ORAL) tamsulosin 2020-0 Yes Take by [facility] ers 0.4 mg 24 2-14 mouth ity of hr capsule 17:20: daily. [place] [address] Medical Branch om 2020-0 Yes Take by [facility] 3/E/linol/a 2-14 mouth. ity of la/oleic/gl 17:20: [place] a/lip 21 Medical (OMEGA Branch 3-6-9 ORAL) tamsulosin 2020-0 Yes Take by [facility] ers 0.4 mg 24 2-14 mouth ity of hr capsule 17:20: daily. [place] [address] Medical Branch om 2020-0 Yes Take by [facility] 3/E/linol/a 2-14 mouth. ity of la/oleic/gl 17:20: [place] a/lip 21 Medical (OMEGA Branch 3-6-9 ORAL) tamsulosin 2020-0 Yes Take by [facility] ers 0.4 mg 24 2-14 mouth ity of hr capsule 17:20: daily. [place] [address] Medical Branch om 2020-0 Yes Take by [facility] 3/E/linol/a 2-14 mouth. ity of la/oleic/gl 17:20: [place] a/lip 21 Medical (OMEGA Branch 3-6-9 ORAL) tamsulosin 2020-0 Yes Take by [facility] ers 0.4 mg 24 2-14 mouth ity of hr capsule 17:20: daily. [place] [address] Medical Branch om 2020-0 Yes Take by [facility] 3/E/linol/a 2-14 mouth. ity of la/oleic/gl 17:20: [place] a/lip 21 Medical (OMEGA Branch 3-6-9 ORAL) tamsulosin 2020-0 Yes Take by [facility] ers 0.4 mg 24 2-14 mouth ity of hr capsule 17:20: daily. [place] [address] Medical Branch om 2020-0 Yes Take by [facility] 3/E/linol/a 2-14 mouth. ity of la/oleic/gl 17:20: [place] a/lip 21 Medical (OMEGA Branch 3-6-9 ORAL) tamsulosin 2020-0 Yes Take by [facility] ers 0.4 mg 24 2-14 mouth ity of hr capsule 17:20: daily. [place] [address] Medical Branch om 2020-0 Yes Take by [facility] 3/E/linol/a 2-14 mouth. ity of la/oleic/gl 17:20: [place] a/lip 21 Medical (OMEGA Branch 3-6-9 ORAL) tamsulosin 2020-0 Yes Take by [facility] ers 0.4 mg 24 2-14 mouth ity of hr capsule 17:20: daily. [place] [address] Medical Branch om 2020-0 Yes Take by [facility] 3/E/linol/a 2-14 mouth. ity of la/oleic/gl 17:20: [place] a/lip 21 Medical (OMEGA Branch 3-6-9 ORAL) tamsulosin 2020-0 Yes Take by [facility] ers 0.4 mg 24 2-14 mouth ity of hr capsule 17:20: daily. [place] [address] Medical Branch om 2020-0 Yes Take by [facility] 3/E/linol/a 2-14 mouth. ity of la/oleic/gl 17:20: [place] a/lip 21 Medical (OMEGA Branch 3-6-9 ORAL) tamsulosin 2020-0 Yes Take by [facility] ers 0.4 mg 24 2-14 mouth ity of hr capsule 17:20: daily. [place] [address] Medical Branch om 2020-0 Yes Take by [facility] 3/E/linol/a 2-14 mouth. ity of la/oleic/gl 17:20: [place] a/lip 21 Medical (OMEGA Branch 3-6-9 ORAL) tamsulosin 2020-0 Yes Take by [facility] ers 0.4 mg 24 2-14 mouth ity of hr capsule 17:20: daily. [place] [address] Medical Branch om 2020-0 Yes Take by [facility] 3/E/linol/a 2-14 mouth. ity of la/oleic/gl 17:20: [place] a/lip 21 Medical (OMEGA Branch 3-6-9 ORAL) tamsulosin 2020-0 Yes Take by [facility] ers 0.4 mg 24 2-14 mouth ity of hr capsule 17:20: daily. [place] [address] Medical Branch om 2020-0 Yes Take by [facility] 3/E/linol/a 2-14 mouth. ity of la/oleic/gl 17:20: [place] a/lip 21 Medical (OMEGA Branch 3-6-9 ORAL) tamsulosin 2020-0 Yes Take by [facility] ers 0.4 mg 24 2-14 mouth ity of hr capsule 17:20: daily. [place] [address] Medical Branch om 2020-0 Yes Take by [facility] 3/E/linol/a 2-14 mouth. ity of la/oleic/gl 17:20: [place] a/lip 21 Medical (OMEGA Branch 3-6-9 ORAL) tamsulosin 2020-0 Yes Take by [facility] ers 0.4 mg 24 2-14 mouth ity of hr capsule 17:20: daily. [place] [address] Medical Branch om 2020-0 Yes Take by [facility] 3/E/linol/a 2-14 mouth. ity of la/oleic/gl 17:20: [place] a/lip 21 Medical (OMEGA Branch 3-6-9 ORAL) tamsulosin 2020-0 Yes Take by [facility] ers 0.4 mg 24 2-14 mouth ity of hr capsule 17:20: daily. [place] [address] Medical Branch om 2020-0 Yes Take by [facility] 3/E/linol/a 2-14 mouth. ity of la/oleic/gl 17:20: [place] a/lip 21 Medical (OMEGA Branch 3-6-9 ORAL) tamsulosin 2020-0 Yes Take by [facility] ers 0.4 mg 24 2-14 mouth ity of hr capsule 17:20: daily. [place] [address] Medical Branch om 2020-0 Yes Take by [facility] 3/E/linol/a 2-14 mouth. ity of la/oleic/gl 17:20: [place] a/lip 21 Medical (OMEGA Branch 3-6-9 ORAL) tamsulosin 2020-0 Yes Take by [facility] ers 0.4 mg 24 2-14 mouth ity of hr capsule 17:20: daily. [place] [address] Medical Branch om 2020-0 Yes Take by [facility] 3/E/linol/a 2-14 mouth. ity of la/oleic/gl 17:20: [place] a/lip 21 Medical (OMEGA Branch 3-6-9 ORAL) tamsulosin 2020-0 Yes Take by [facility] ers 0.4 mg 24 2-14 mouth ity of hr capsule 17:20: daily. [place] [address] Medical Branch om 2020-0 Yes Take by [facility] 3/E/linol/a 2-14 mouth. ity of la/oleic/gl 17:20: [place] a/lip 21 Medical (OMEGA Branch 3-6-9 ORAL) tamsulosin 2020-0 Yes Take by [facility] ers 0.4 mg 24 2-14 mouth ity of hr capsule 17:20: daily. [place] [address] Medical Branch om 2020-0 Yes Take by [facility] 3/E/linol/a 2-14 mouth. ity of la/oleic/gl 17:20: [place] a/lip 21 Medical (OMEGA Branch 3-6-9 ORAL) tamsulosin 2020-0 Yes Take by [facility] ers 0.4 mg 24 2-14 mouth ity of hr capsule 17:20: daily. [place] [address] Medical Branch om 2020-0 Yes Take by [facility] 3/E/linol/a 2-14 mouth. ity of la/oleic/gl 17:20: [place] a/lip 21 Medical (OMEGA Branch 3-6-9 ORAL) tamsulosin 2020-0 Yes Take by [facility] ers 0.4 mg 24 2-14 mouth ity of hr capsule 17:20: daily. [place] [address] Medical Branch om 2020-0 Yes Take by [facility] 3/E/linol/a 2-14 mouth. ity of la/oleic/gl 17:20: [place] a/lip 21 Medical (OMEGA Branch 3-6-9 ORAL) tamsulosin 2020-0 Yes Take by [facility] ers 0.4 mg 24 2-14 mouth ity of hr capsule 17:20: daily. [place] [address] [facility] Branch om 2020-0 Yes Take by [facility] 3/E/linol/a 2-14 mouth. ity of la/oleic/gl 17:20: [place] a/lip 21 Medical (OMEGA Branch 3-6-9 ORAL) tamsulosin 2020-0 Yes Take by [facility] ers 0.4 mg 24 2-14 mouth ity of hr capsule 17:20: daily. [place] [address] [facility] Branch om 2020-0 Yes Take by [facility] 3/E/linol/a 2-14 mouth. ity of la/oleic/gl 17:20: [place] a/lip 21 Medical (OMEGA Branch 3-6-9 ORAL) tamsulosin 2020-0 Yes Take by [facility] ers 0.4 mg 24 2-14 mouth ity of hr capsule 17:20: daily. [place] [address] [facility] Branch om 2020-0 Yes Take by [facility] 3/E/linol/a 2-14 mouth. ity of la/oleic/gl 17:20: [place] a/lip 21 Medical (OMEGA Branch 3-6-9 ORAL) tamsulosin 2020-0 Yes Take by [facility] ers 0.4 mg 24 2-14 mouth ity of hr capsule 17:20: daily. [place] [address] [facility] Branch tamsulosin 2020-0 Yes Take by [facility] ers 0.4 mg 24 2-14 mouth ity of hr capsule 17:20: daily. [place] [address] [facility] Branch om 2020-0 Yes Take by [facility] 3/E/linol/a 2-14 mouth. ity of la/oleic/gl 17:20: [place] a/lip 21 Medical (OMEGA Branch 3-6-9 ORAL) om 2020-0 Yes Take by [facility] 3/E/linol/a 2-14 mouth. ity of la/oleic/gl 17:20: [place] a/lip 21 Medical (OMEGA Branch 3-6-9 ORAL) tamsulosin 2020-0 Yes Take by [facility] ers 0.4 mg 24 2-14 mouth ity of hr capsule 17:20: daily. [place] [address] [facility] Branch om 2020-0 Yes Take by [facility] 3/E/linol/a 2-14 mouth. ity of la/oleic/gl 17:20: [place] a/lip 21 Medical (OMEGA Branch 3-6-9 ORAL) tamsulosin 2020-0 Yes Take by [facility] ers 0.4 mg 24 2-14 mouth ity of hr capsule 17:20: daily. [place] [address] [facility] Branch om 2020-0 Yes Take by [facility] 3/E/linol/a 2-14 mouth. ity of la/oleic/gl 17:20: [place] a/lip 21 Medical (OMEGA Branch 3-6-9 ORAL) tamsulosin 2020-0 Yes Take by [facility] ers 0.4 mg 24 2-14 mouth ity of hr capsule 17:20: daily. [place] [address] [facility] Branch om 2020-0 Yes Take by [facility] 3/E/linol/a 2-14 mouth. ity of la/oleic/gl 17:20: [place] a/lip 21 Medical (OMEGA Branch 3-6-9 ORAL) tamsulosin 2020-0 Yes Take by [facility] ers 0.4 mg 24 2-14 mouth ity of hr capsule 17:20: daily. [place] [address] [facility] Branch om 2020-0 Yes Take by [facility] 3/E/linol/a 2-14 mouth. ity of la/oleic/gl 17:20: [place] a/lip 21 Medical (OMEGA Branch 3-6-9 ORAL) tamsulosin 2020-0 Yes Take by [facility] ers 0.4 mg 24 2-14 mouth ity of hr capsule 17:20: daily. [place] [address] [facility] Branch tamsulosin 2020-0 Yes Take by [facility] ers 0.4 mg 24 2-14 mouth ity of hr capsule 11:20: daily. [place] [address] [facility] Branch om 2020-0 Yes Take by [facility] 3/E/linol/a 2-14 mouth. ity of la/oleic/gl 11:20: [place] a/lip 21 Medical (OMEGA Branch 3-6-9 ORAL) tamsulosin 2019-0 Yes Take by [facility] ers 0.4 mg 24 2-14 mouth ity of hr capsule 11:20: daily. [place] [address] Medical Branch om 2019-0 Yes Take by [facility] 3/E/linol/a 2-14 mouth. ity of la/oleic/gl 11:20: [place] a/lip 21 Medical (OMEGA Branch 3-6-9 ORAL) tamsulosin 2019-0 Yes Take by [facility] ers 0.4 mg 24 2-14 mouth ity of hr capsule 11:20: daily. [place] [address] Medical Branch om 2020-0 Yes Take by [facility] 3/E/linol/a 2-14 mouth. ity of la/oleic/gl 11:20: [place] a/lip 21 Medical (OMEGA Branch 3-6-9 ORAL) tamsulosin 2019-0 Yes Take by [facility] ers 0.4 mg 24 2-14 mouth ity of hr capsule 11:20: daily. [place] [address] Medical Branch om 2020-0 Yes Take by [facility] 3/E/linol/a 2-14 mouth. ity of la/oleic/gl 11:20: [place] a/lip 21 Medical (OMEGA Branch 3-6-9 ORAL) diclofenac 2019- 2020- No [id number] 75mg Take 1 [facility] 75 mg EC 05-03 9109 tablet by ity o f tablet 00:00: 05:59 mouth 2 [place] 00 :00 (two) Medical times Branch daily with meals for 60 days. diclofenac 2018-03 2020- No [id number] 75mg Take 1 [facility] 75 mg EC 205-02 9109 tablet by ity o f tablet 00:00: 05:59 mouth 2 [place] 00 :00 (two) Medical times Branch daily with meals for 60 days. diclofenac 2018-03- No [id number] 75mg Take 1 [facility] 75 mg EC 05-03 9109 tablet by ity o f tablet 00:00: 05:59 mouth 2 [place] 00 :00 (two) Medical times Branch daily with meals for 60 days. diclofenac 2018-03- No [id number] 75mg Take 1 [facility] 75 mg EC 205-02 9109 tablet by ity o f tablet 00:00: 05:59 mouth 2 [place] 00 :00 (two) Medical times Branch daily with meals for 60 days. diclofenac Yes [id number] 75mg Take 1 [facility] 75 mg EC 8- 9109 tablet by ity of tablet 00:00: mouth 2 [place] 00 (two) Medical times Branch daily with meals. diclofenac Yes [id number] 75mg Take 1 [facility] 75 mg EC 8-02 9109 tablet by ity of tablet 00:00: mouth 2 [place] 00 (two) Medical times Branch daily with meals. diclofenac Yes [id number] 75mg Take 1 [facility] 75 mg EC 8-02 9109 tablet by ity of tablet 00:00: mouth 2 [place] 00 (two) Medical times Branch daily with meals. diclofenac 2019- No [id number] 75mg Take 1 [facility] 75 mg EC 8-11-01 9109 tablet by ity o f tablet 00:00: 00:00 mouth 2 [place] 00 :00 (two) Medical times Branch daily with meals. predniSONE 2019- Yes TAKE 1 [facility] 10 mg 7-19 TABLET BY ity of tablet 00:00: MOUTH [place] 00 TWICE Medical DAILY FOR Branch 5 DAYS predniSONE 2018-0 Yes TAKE 1 [facility] rs 10 mg 7-19 TABLET BY ity of tablet 00:00: MOUTH [place] 00 TWICE Medical DAILY FOR Branch 5 DAYS amoxicillin 2018- Yes TAKE 1 [facility] ers -clavulanat 7-19 TABLET BY ity of e 875-125 00:00: MOUTH [place] mg per 00 EVERY 12 Medical tablet HOURS FOR Branch 7 DAYS predniSONE 2019-0 Yes TAKE 1 Un[facility] rs 10 mg [...] Medical DAILY FOR Branch 5 DAYS predniSONE 2019-0 Yes TAKE 1 [facility] rs 10 mg 7-19 TABLET BY ity of tablet 00:00: MOUTH [place] 00 TWICE Medical DAILY FOR Branch 5 DAYS predniSONE 2019-0 Yes TAKE 1 [facility] rs 10 mg 7-19 TABLET BY ity of tablet 00:00: MOUTH [place] 00 TWICE Medical DAILY FOR Branch 5 DAYS predniSONE 2019-0 Yes TAKE 1 [facility] rs 10 mg 7-19 TABLET BY ity of tablet 00:00: MOUTH [place] 00 TWICE Medical DAILY FOR Branch 5 DAYS predniSONE 2019 Yes TAKE 1 [facility] rs 10 mg 7-19 TABLET BY ity of tablet 00:00: MOUTH [place] 00 TWICE Medical DAILY FOR Branch 5 DAYS amoxicillin 2019- Yes TAKE 1 Univ ers -clavulanat 7-19 TABLET BY ity of e 875-125 00:00: MOUTH [place] mg per 00 EVERY 12 Medical tablet HOURS FOR Branch 7 DAYS predniSONE 2019 Yes TAKE 1 [facility] rs 10 mg 7-19 TABLET BY ity of tablet 00:00: MOUTH [place] 00 TWICE Medical DAILY FOR Branch 5 DAYS predniSONE 2019-0 Yes TAKE 1 [facility] rs 10 mg 7-19 TABLET BY ity of tablet 00:00: MOUTH [place] 00 TWICE Medical DAILY FOR Branch 5 DAYS predniSONE 2019-0 Yes TAKE 1 [facility] rs 10 mg 7-19 TABLET BY ity of tablet 00:00: MOUTH [place] 00 TWICE Medical DAILY FOR Branch 5 DAYS amoxicillin 2019-0 Yes TAKE 1 Univ ers -clavulanat 7-19 [...] Medical DAILY FOR Branch 5 DAYS amoxicillin 2019-0 2020- No TAKE 1 Uni vers -clavulanat 7-19 - TABLET BY it y of e 875-125 00:00: 00:00 MOUTH [place] mg per 00 :00 EVERY 12 Medical tablet HOURS FOR Branch 7 DAYS amoxicillin 2019-0 2020- No TAKE 1 Uni vers -clavulanat 7-19 05-04 TABLET BY it y of e 875-125 00:00: 00:00 MOUTH [place] mg per 00 :00 EVERY 12 Medical tablet HOURS FOR Branch 7 DAYS HYDROcodone 2019 Yes TAKE 1 Univ [...] 00 TWICE Medical DAILY FOR Branch 28 No known No [facility] medications [facility] [place] No known No [facility] medications [facility] [place] atorvastati atorvastati No atorvastat [place] [facility] 20 mg n 20 mg in 20 mg Famil y tablet TAKE tablet TAKE tablet Practic 1 TABLET BY 1 TABLET BY TAKE 1 e MOUTH ONCE MOUTH ONCE TABLET BY DAILY DAILY MOUTH ONCE DAILY diclofenac diclofenac No diclofenac [facility] sodium 75 sodium 75 sodium 75 Family mg mg mg Practic tablet,aisha tablet,aisha tablet,del e yed release yed release ayed TAKE 1 TAKE 1 release TABLET BY TABLET BY TAKE 1 MOUTH TWICE MOUTH TWICE TABLET BY DAILY WITH DAILY WITH MOUTH MEALS MEALS TWICE DAILY WITH MEALS gabapentin gabapentin No 1capsul BID gabapentin [facility] 400 mg 400 mg e(s) 400 mg Family capsule capsule capsule Practi c Take 1 Take 1 Take 1 e capsule capsule capsule twice a day twice a day twice a by oral by oral day by route. route. oral route. hydrocodone hydrocodone No 1 Q4H [facility] 10 10 e 10 Family mg-acetamin mg-acetamin mg-acetami Practic ophen 325 ophen 325 nophen 325 e mg tablet mg tablet mg tablet Take 1 Take 1 Take 1 tablet tablet tablet every 4 every 4 every 4 hours by hours by hours by oral route. oral route. oral route. hydrocodone hydrocodone No [facility] 5 5 e 5 Family mg-acetamin mg-acetamin mg-acetami Practic ophen 325 ophen 325 nophen 325 e mg tablet mg tablet mg tablet TAKE 1 TAKE 1 TAKE 1 TABLET BY TABLET BY TABLET BY MOUTH THREE MOUTH THREE MOUTH TIMES DAILY TIMES DAILY THREE TIMES DAILY metoprolol metoprolol No metoprolol [facility] tartrate 25 tartrate 25 tartrate Family mg tablet mg tablet 25 mg Prac tic TAKE 1 TAKE 1 tablet e TABLET BY TABLET BY TAKE 1 MOUTH TWICE MOUTH TWICE TABLET BY DAILY DAILY MOUTH TWICE DAILY Myrbetriq Myrbetriq No Myrbetriq [facility] 25 mg 25 mg 25 mg Family [...] DISPENSING DISPENSING DISPENSING prednisone prednisone No prednisone [facility] 5 mg tablet 5 mg tablet 5 [...] Source Name Name pneumococcal pneumococcal 2019-03-31 Completed [facility] Timmy salazar polysaccharide PPV23 polysaccharide PPV23 00:00:00 Practice Tdap Tdap 2019-03-07 Completed [facility] 00:[facility] Vital Signs Vital Name Observation Time Observation Value Comments Source Systolic blood 2021-09-02 02:00:00 165 mm[Hg] Univer sity of [facility] Diastolic blood 2021-09-02 02:00:00 74 mm[Hg] Unive [facility] Heart rate 2021-09-02 02:00:00 61 /min [facility] Respiratory rate 2021-09-02 02:00:00 20 /min [facility] Oxygen saturation in 2021-09-02 02:00:00 98 /min [facility] blood by [facility] Pulse oximetry Branch Body temperature 2021-09-01 22:19:00 36.28 Natalie [facility] Body weight 2021-09-01 22:19:00 81.647 kg Universi ty [facility] BMI 2021-09-01 22:19:00 25.83 kg/m2 [facility] HEIGHT 2021-04-06 12:08:00 180.3 cm WEIGHT 2021-04-06 12:08:00 79.379 kg HEIGHT 2021-04-06 12:08:00 180.3 cm WEIGHT 2021-04-06 12:08:00 79.379 kg BMI (Body Mass 2020-03-10 00:00:00 27.4 kg/m2 [facility] BP Systolic 2020-03-10 00:00:00 126 mm[Hg] [facility] Body Weight 2020-03-10 00:00:00 180 [lb_av] [facility] BP Diastolic 2020-03-10 00:00:00 68 mm[Hg] [facility] Height 2020-03-10 00:00:00 68 [in_i] [facility] WEIGHT 2020-01-03 04:20:00 81.194 kg WEIGHT [...] 19:40:00 150 mm[Hg] Univer sity of pressure [facility] Diastolic blood 2019-11-07 19:40:00 74 mm[Hg] Unive rsity of pressure [facility] Heart rate 2019-11-07 19:40:00 76 /min [facility] Body temperature 2019-11-07 19:40:00 36.44 Natalie [facility] Respiratory rate 2019-11-07 19:40:00 18 /min [facility] Body weight 2019-11-07 19:40:00 81.647 kg [facility] BMI 2019-11-07 19:40:00 25.83 kg/m2 [facility] Systolic blood 2019-11-07 19:40:00 150 mm[Hg] Univer sity of [facility] Diastolic blood 2019-11-07 19:40:00 74 mm[Hg] Unive rsity of pressure [facility] Heart rate 2019-11-07 19:40:00 76 /min [facility] Body temperature 2019-11-07 19:40:00 36.44 Natalie [facility] Respiratory rate 2019-11-07 19:40:00 18 /min [facility] Body weight 2019-11-07 19:40:00 81.647 kg [facility] BMI 2019-11-07 19:40:00 25.83 kg/m2 [facility] Systolic blood 2019-09-24 20:24:00 155 mm[Hg] Univer sity of [facility] Diastolic blood 2019-09-24 20:24:00 76 mm[Hg] Unive rsity of [facility] Heart rate 2019-09-24 20:24:00 63 /min [facility] Body temperature 2019-09-24 20:24:00 36.11 Natalie [facility] Respiratory rate 2019-09-24 20:24:00 18 /min Univ [facility] Body weight 2019-09-24 20:24:00 82.373 kg [facility] BMI 2019-09-24 20:24:00 26.06 kg/m2 [facility] Systolic blood 2019-09-24 20:24:00 155 mm[Hg] Univer sity of [facility] Diastolic blood 2019-09-24 20:24:00 76 mm[Hg] Unive rsity of [facility] Heart rate 2019-09-24 20:24:00 63 /min [facility] [place] Body temperature 2019-09-24 20:24:00 36.11 Natalie Univ ersity of [facility] Respiratory rate 2019-09-24 20:24:00 18 /min Univ ersity of [facility] Body weight 2019-09-24 20:24:00 82.373 kg Universi ty of [facility] BMI 2019-09-24 20:24:00 26.06 kg/m2 Universi ty of [facility] Systolic blood 2019-09-21 20:41:00 149 mm[Hg] Univer sity of pressure [facility] Diastolic blood 2019-09-21 20:41:00 79 mm[Hg] Unive rsity of pressure [facility] Heart rate 2019-09-21 20:41:00 64 /min Universi ty of [facility] Body temperature 2019-09-21 20:41:00 35.78 Natalie Univ ersity of [facility] Respiratory rate 2019-09-21 20:41:00 18 /min Univ ersity of [facility] Body weight 2019-09-21 20:41:00 81.829 kg [facility] BMI 2019-09-21 20:41:00 25.88 kg/m2 Universi ty of [facility] Systolic blood 2019-09-02 11:05:00 188 mm[Hg] Univer sity of pressure [facility] Diastolic blood 2019-09-02 11:05:00 85 mm[Hg] Unive rsity of pressure [facility] Heart rate 2019-09-02 11:05:00 84 /min Universi ty of [facility] Body temperature 2019-09-02 11:05:00 36.89 Natalie Univ ersity of [facility] Respiratory rate 2019-09-02 11:05:00 16 /min Univ ersity of [facility] Body height 2019-09-02 11:05:00 177.8 cm Universi ty of [facility] Body weight 2019-09-02 11:05:00 79.379 kg Universi ty of [facility] BMI 2019-09-02 11:05:00 25.11 kg/m2 Universi ty of [facility] Oxygen saturation in 2019-09-02 11:05:00 99 /min University Arterial blood by [facility] Pulse oximetry Branch Body temperature 2019-08-10 20:51:00 36.61 Natalie [facility] Respiratory rate 2019-08-10 20:51:00 22 /min [facility] Body weight 2019-08-10 20:51:00 80.797 kg [facility] BMI 2019-08-10 20:51:00 27.08 kg/m2 [facility] Oxygen saturation in 2019-08-10 20:51:00 96 /min University of Arterial blood by [facility] ezekiel Pulse oximetry Branch Systolic blood 2019-07-09 15:45:00 131 mm[Hg] Univer sity of [facility] Diastolic blood 2019-07-09 15:45:00 69 mm[Hg] Unive rsity of [facility] Heart rate 2019-07-09 15:45:00 49 /min [facility] Body temperature 2019-07-09 15:45:00 37 Natalie [facility] Respiratory rate 2019-07-09 15:45:00 20 /min [facility] Body height 2019-07-09 15:45:00 172.7 cm [facility] Body weight 2019-07-09 15:45:00 82.101 kg [facility] BMI 2019-07-09 15:45:00 27.52 kg/m2 [facility] Oxygen saturation in 2019-07-09 15:45:00 98 /min University of Arterial blood by [facility] Pulse oximetry Branch Systolic blood 2019-05-24 18:10:00 132 mm[Hg] Univer sity of [facility] Diastolic blood 2019-05-24 18:10:00 61 mm[Hg] Unive rsity of [facility] Heart rate 2019-05-24 18:10:00 50 /min [facility] Body temperature 2019-05-24 18:10:00 36.56 Natalie [facility] Respiratory rate 2019-05-24 18:10:00 18 /min [facility] Body weight 2019-05-24 18:10:00 82.101 kg [facility] BMI 2019-05-24 18:10:00 27.52 kg/m2 [facility] Body temperature 2019-05-04 17:26:00 36.83 Natalie [facility] Respiratory rate 2019-05-04 17:26:00 20 /min [facility] Body height 2019-05-04 17:26:00 172.7 cm [facility] Body weight 2019-05-04 17:26:00 79.379 kg [facility] BMI 2019-05-04 17:26:00 26.61 kg/m2 [facility] Oxygen saturation in 2019-05-04 17:26:00 98 /min University of Arterial blood by [facility] Pulse oximetry Branch Systolic blood 2019-05-04 17:26:00 139 mm[Hg] Univer sity of [facility] Diastolic blood 2019-05-04 17:26:00 67 mm[Hg] Unive rsity of pressure [facility] Heart rate 2019-05-04 17:26:00 80 /min [facility] Systolic blood 2019-04-20 17:14:00 135 mm[Hg] Univer sity of [facility] Diastolic blood 2019-04-20 17:14:00 80 mm[Hg] Unive rsity of [facility] Heart rate 2019-04-20 17:14:00 80 /min [facility] Body temperature 2019-04-20 17:14:00 36.67 Natalie [facility] Respiratory rate 2019-04-20 17:11:00 20 /min Univ [facility] Body height 2019-04-20 17:11:00 172.7 cm [facility] Body weight 2019-04-20 17:11:00 77.565 kg [facility] BMI 2019-04-20 17:11:00 26.00 kg/m2 [facility] Oxygen saturation in 2019-04-20 17:11:00 98 /min University of Arterial blood by [facility] Pulse oximetry Branch Systolic blood 2018-10-06 13:34:00 127 mm[Hg] Univer sity of pressure [facility] Diastolic blood 2018-10-06 13:34:00 72 mm[Hg] Unive rsity of pressure [facility] Body height 2018-10-06 13:34:00 175.3 cm [facility] Body weight 2018-10-06 13:34:00 81.647 kg [facility] BMI 2018-10-06 13:34:00 26.58 kg/m2 [facility] Procedures Procedure Date / Time Performing Clinician Source Performed EKG-12 LEAD 2021-09-02 02:42:27 Carley Green [facility] MAGNESIUM 2021-09-01 23:35:00 Carley Green [facility] TROPONIN I 2021-09-01 23:35:00 Carley Green [facility] COMP. METABOLIC PANEL 2021-09-01 23:35:[address] [facility] ([id number]) [facility] CBC WITH DIFF 2021-09-01 23:35:00 Carley Green [facility] PROTHROMBIN TIME / INR 2021-09-01 23:35:[address] [facility] ACTIVATED PARTIAL 2021-09-01 23:35:00 Carley Green Analy [facility] THRMPLAS [facility] URINALYSIS 2021-09-01 23:35:00 Carley Green [facility] N-TERMINAL PRO-BNP 2021-09-01 23:35:00 Carley Green [facility] XR CHEST 1 VW 2021-09-01 23:27:00 Carley Green [facility] NOTICE OF PRIVACY 2021-09-01 22:21:51 Doctor Unassigned, No [facility] PRACTICES Name [facility] CONSENT/REFUSAL FOR 2021-09-01 22:14:42 [facility], [facility] AUTHORIZATION FOR 2020-02-18 06:01:00 Doctor Unassigned, No [facility] RELEASE OF PHI [facility] COMP. METABOLIC PANEL 2019-09-02 11:21:[address] [facility] ([id number]) [facility] [place] CBC WITH DIFFERENTIAL 2019-09-02 11:21:00 Chico Mccall [facility] URINALYSIS 2019-09-02 11:21:00 Chico Mccall o f [facility] NOTICE OF PRIVACY 2019-09-02 10:54:46 Doctor Unassigned, No [facility] Name [facility] CONSENT/REFUSAL FOR 2019-09-02 10:54:27 Doctor Unassigned, No [facility] DIAGNOS[facility] TREATMENT [facility] PHYSICIAN ORDERS 2019-05-24 05:01:00 Doctor Unassigned, [facility]IN[facility] AUTO 2019-05-04 17:32:00 Robbie Car [facility] DISCLOSURE AND CONSENT, 2019-05-04 06:01:00 Doctor Unassigned, N o [facility] MEDICAL AND SURGICAL Name [facility] PROCEDURES POCT URINALYSIS AUTO 2019-04-20 17:08:00 Robbie Car [facility] ASSIGNMENT OF BENEFITS 2019-04-20 16:53:27 Doctor Unassigned, No [facility] REFERRAL- 2018-10-04 05:01:00 Doctor Unassigned, No [facility] REQUEST/RESPONSE [facility] REFUSAL OF NON-MEDICAL 2018-04-20 06:01:00 Doctor Unassigned, No [facility] SERVICES [facility] Plan of Care Planned Activity Planned Date Details Comments Source Instructions [facility] Encounters Start End Encounter Admission Attending Care Care Encounter Source Date/Time Date/Time Type Type Clinicians Facility Department ID 2021-01-02 Emergency [facility] [id number] Univers 14:31:41 [facility] 2021-01-02 Emergency [facility] [id number] Univers 03:17:11 [facility] 2020-12-10 Inpatient ER RUBEN, SLE Surgery [id number] [facility] 12:16:46 ZOYA 2020-12-10 Inpatient ER [facility] [id number] [facility] 12:16:10 [facility] 2021-09-18 2021-09-18 Outpatient DMG DMG [id number] [facility] 03:02:00 03:02:00 [id number] Medica l Group 2021-09-01 2021-09-02 Emergency X Carley GREEN [facility] ERT [id number] Univers 17:21:00 01:51:00 ity of [facility] 2021-09-01 2021-09-02 Emergency Ade, Carley [facility] [id number] Univers 17:21:00 01:51:00 Analy ROBERT [id number] i ty of [facility] 4.2.7.2.[place] [id number] [facility] 084 Branch 2021-09-01 2021-09-01 Orders Doctor NIRAV [id number] [place] [address] 00:00:00 00:00:00 Only Unassigned, KENNETH [id number] ity of [facility] 4.2.7.2.686 Bran as [id number] [facility] 009 Branch 2021-06-03 2021-06-03 Outpatient DMG DM [id number]- [facility] 04:03:00 04:03:00 Medica l Group 2021-05-22 2021-05-22 Outpatient DMG DM [id number]- [facility] 12:01:00 12:01:00 [id number] Medica l Group 2021-05-13 2021-05-13 Outpatient DMG DM [id number]- [facility] 12:00:00 12:00:00 Medica l Group 2021-04-02 2021-04-08 [facility] [id number] [facility] 05:31:00 12:45:00 JOCELYNN 2021-04-06 2021-04-06 Outpatient [facility] [id number] [facility] 00:00:00 23:59:00 Shawna holm of Medicin e 2021-01-07 2021-01-07 Telephone Juanita [facility] 1.2.840.114 [id number] Univers 00:00:00 00:00:00 [employer] 350.1.13.10 it y of ROBERT 4.2.7.2.686 Bran as ARISTEO?BLEA [id number] [address] MEDICAL OFFICE BUILDING 2021-01-05 2021-01-05 Telephone Juanita MIPAMELLA 1.2.840.114 [id number] Univers 00:00:00 00:00:00 Eduardo L HEALTH [id number] it y of [place] 4.2.7.2.686 Bran as ARISTEO?BLEA [id number] De dical KNEY [address] [place] MEDICAL OFFICE BUILDING 2020-10-14 2020-10-14 [facility]phone [facility] 1.2.840.114 [id number] Univers 00:00:00 00:00:00 Eduardo Sandhu Health [id number] it y of Surgical 4.2.7.2.686 Bran as Specialti [id number] De dical es 198 [facility] 2020-10-09 2020-10-09 [place] [facility] [id number] Univers 00:00:00 00:00:00 Eduardo Sandhu Health [id number] it y of Surgical 4.2.7.2.686 Bran as Specialti [id number] De dical es 198 [facility] 2020-09-11 2020-09-11 [facility] [place] 1.2.840.114 [id number] Univers 00:00:00 00:00:00 Marquis Cee Health [id number] it y of Surgical 4.2.7.2.686 Bran as Specialti [id number] De dical es 198 [facility] 2020-08-14 2020-08-14 [facility] 1.2.840.114 [id number] Univers 00:00:00 00:00:00 Marquis S Health [id number] it y of Surgical 4.2.7.2.686 Bran as Specialti [id number] De dical es 198 [facility] 2020-07-07 2020-07-07 [facility] 1.2.840.114 [id number] 00:00:00 00:00:00 Eduardo Sandhu Health [id number] Surgical 4.2.7.2.686 Specialti [id number] es 198 [place] 2020-07-07 2020-07-[address] [facility] 1.2.840.114 [id number] Univers 00:00:00 00:00:00 Eduardo Sandhu Health 350.1.13.10 it y of Surgical 4.2.7.2.686 Bran as Specialti [phone] Me dical es 198 Branch [place] 2020-06-12 2020-06-12 Outpatient Ajibade_O_A VFP VFP [id number] [facility] 10:56:00 10:56:00 H [id number] Family Practic e 2020-05-26 2020-05-26 Telephone Juanita [facility] 1.2.840.114 [id number] 00:00:00 00:00:00 [facility] Health [id number] Surgical 4.2.7.2.686 Specialti [id number] es 198 [place] 2020-05-26 2020-05-26 Telephone Juanita [facility] 1.2.840.[id number] [facility] 00:00:00 00:00:00 Eduardo Health 350.1.13.10 it y of Surgical 4.2.7.2.686 Bran as Specialti [id number] De dical es 198 Branch [place] 2020-03-20 2020-03-20 Outpatient Ajibade_O_A VFP VFP [id number] [facility] 05:22:00 05:22:00 H [id number] Family Practic e 2020-03-20 2020-03-20 Outpatient Ajibade_O_A VFP VFP [id number] [facility] 05:22:00 05:22:00 H [id number] Family Practic e 2020-03-20 2020-03-20 Outpatient Ajibade_O_A VFP VFP [id number] [facility] 05:22:00 05:22:00 H 43398 Family Practic e 2020-03-20 2020-03-20 Telephone Kory [facility] [id number] 00:00:00 00:00:00 Marquis S Health 350.1.13.10 Surgical 4.2.7.2.686 Specialti [id number] es 198 [place] 2020-03-20 2020-03-20 Telephone Kory MIPAEMLLA 1.2.099.[id number] [facility] 00:00:00 00:00:00 [facility] Health 350.1.13.10 it y of Surgical 4.2.7.2.686 Bran as Specialti [id number] Me dical es 198 [facility] 2020-03-10 2020-03-10 Outpatient Ajibade_O_A VFP VFP [id number] [facility] 11:19:00 11:19:00 H [id number] Family Practic e 2020-03-10 2020-03-10 [facility] [place] [facility] [id number] 00:00:00 00:00:00 HollykevinLeo Famil y SUSTAINABLE AGRICULTURE FACULTY: 9235 Medical - Pract norm Arte[place], [email or web address] [address], [facility], [place] [address] , Ph. 2020-02-18 2020-02-18 Orders Doctor NIRAV 1.2.840.114 [id number] 00:00:00 00:00:00 Only Unassigned, KENNETH 350.1.13.10 [facility] 4.2.7.2.686 [id number] 2020-02-18 2020-02-18 Orders Doctor NIRAV 1.2.840.[id number] [facility] 00:00:00 00:00:00 Only Unassigned, KENNETH 350.1.13.10 ity of [facility] 4.2.7.2.686 Bran as [phone] [address] 2020-01-28 2020-01-28 [facility] [id number] 00:00:00 00:00:00 [facility] 350.1.13.10 Surgical 4.2.7.2.686 Specialti [id number] es 198 [place] 2020-01-28 2020-01-28 Telephone [facility] 1.2.857.[id number] [facility] 00:00:00 00:00:00 [facility] 350.1.13.10 it y of Surgical 4.2.7.2.686 Bran as Specialti [id number] Me dical es 198 [facility] 2019-12-28 2019-12-28 Emergency ER [facility] Emergency [id number] [facility] 20:07:00 20:07:00 2019-12-21 2019-12-21 Telephone Joyce [facility] 1.2.840.114 [id number] 00:00:00 00:00:00 Robbie [place] 350.1.13.10 [place] 4.2.7.2.686 Professio [phone] [address] 2019-12-21 2019-12-21 Telephone Joyce [facility] 1.2.840.114 [id number] Univers 00:00:00 00:00:00 Robbie [place] 350.1.13.10 i ty of [place]2.[place].2.[place] [phone] De dical [address] 2019-12-20 2019-12-20 Outpatient [facility] [id number]-20 Univers 09:30:00 09:30:00 [facility]BIE [id number] [facility] 2019-12-20 2019-12-20 Outpatient [facility] [id number] Univers 09:30:00 09:30:00 [facility] 2019-12-10 2019-12-10 Outpatient R [facility] [id number] Q-20 Univers 15:15:00 15:15:00 ROBBIE [facility] 2019-12-10 2019-12-10 Outpatient R [facility] [id number] Univers 15:15:00 15:15:00 [facility] 2019-12-07 2019-12-07 Outpatient R [facility] [id number] Univers 13:00:00 13:00:00 [facility] 2019-12-07 2019-12-07 Outpatient [facility] [id number] Univers 13:00:00 13:00:00 [facility] 2019-12-07 2019-12-07 Nurse Nurse, [facility] 1.2.840.114 [id number] 10:38:50 11:10:03 Visit Surgery [facility] 350.1.13.10 [place] 4.2.7.2.686 Professio [id number] [address] 2019-12-07 2019-12-07 Nurse Nurse, [facility] Surgery [facility] 1.2. [address]40[id number] [facility] 10:38:50 11:10:03 Visit Robbie Car 350.1.13.10 ity of [place]2.7.2.[place] [phone] [address] 2019-11-20 2019-11-20 Nurse Nurse, [facility] 1.2.840.114 [id number] 13:06:00 13:52:14 Visit Surgery Gu [place] 350.1.13.10 [place] 4.2.7.2.686 Professio [phone] [address] 2019-11-20 2019-11-20 Nurse Nurse, [facility] Surgery [facility] 1.2. [id number] [facility] 13:06:00 13:52:14 Visit Robbie Car 350.1.13.10 ity of [place] 4.2.7.2.[place] [phone] [address] 2019-11-20 2019-11-20 Outpatient R [facility] [id number] Univers 13:00:00 13:00:00 [id number] ity [facility] 2019-11-20 2019-11-20 Outpatient R [facility] [id number] Univers 13:00:00 13:00:00 [facility] ity [facility] 2019-11-07 2019-11-07 Nurse Nurse, [facility] 1.2.840.114 [id number] 14:34:31 14:49:31 Visit Surgery Gu [place] 350.1.13.10 [place] 4.2.7.2.686 Professio [phone] [address] 2019-11-07 2019-11-07 Nurse Nurse, [facility] Surgery [facility] 1.2. 840.114 [id number] Univers 14:34:31 14:49:31 Visit Robbie Car 350.1.13.10 ity of [place] 4.2.7.2.[place] [phone] [address] 2019-11-07 2019-11-07 Outpatient R [facility] [id number] Univers 14:15:00 14:15:00 ity of [facility] 2019-11-07 2019-11-07 Outpatient [facility] [id number] Univers 11:00:00 11:00:00 ity of [facility] 2019-11-07 2019-11-07 Outpatient R [facility] [id number] Univers 11:00:00 11:00:00 [facility] 2019-11-01 2019-11-01 Outpatient Ajibade_O_A VFP VFP [address] [facility]202 [facility] 04:47:00 04:47:00 H 16757 Family Practic e 2019-09-24 2019-09-24 Office [facility] 1.2.840.114 [id number] 15:17:44 17:03:35 Visit [facility] [place] 350.1.13.10 [place] 4.2.7.2.686 Professio [phone] [address] 2019-09-24 2019-09-24 [facility] 1.2.840.114 [id number] Univers 15:17:44 17:03:35 Visit [facility] [place] 350.1.13.10 i ty of [place] 4.2.7.2.[place] Profess[place] [phone] De dic[address] 2019-09-24 2019-09-24 Outpatient R [facility] [id number] Q-20 Univers 16:00:00 16:00:00 [facility] 2019-09-24 2019-09-24 Outpatient R THEODOREHermiloSELECT [facility] [id number] Univers 16:00:00 16:00:00 [facility] 2019-09-21 2019-09-[address] [facility] 1.2.840.114 [id number] Univers 15:33:57 16:14:10 Visit [facility] [place] 350.1.13.10 i ty of [place] 4.2.7.2.[place] Profess[place] [phone] De dic[address] 2019-09-21 2019-09-21 Outpatient R THEODOREHermiloSELECT [facility] INC [id number] Univers 16:00:00 16:00:00 ity of [facility] 2019-09-21 2019-09-21 Outpatient R JOYCE [facility] [id number] Q-20 Univers 11:00:00 11:00:00 ROBBIE [id number] ity of [facility] 2019-09-19 2019-09-19 Nurse Nurse, Adc Surgery [facility] 1.2. 840.114 [id number] Univers 10:50:18 11:21:35 Visit Joyce Robbie Robert 350.1.13.10 [place] [facility] [phone] Me dical nal [address] [facility] 2019-09-19 2019-09-19 Outpatient R [facility] [id number] -[id number] Univers 10:45:00 10:45:00 [id number] ity of [facility] 2019-09-19 2019-09-19 Outpatient R [facility] [id number] Univers 10:45:00 10:45:00 ity [facility] 2019-09-17 2019-09-17 [facility] 1.2.290.134 [id number] 00:00:00 00:00:00 [facility] 350.1.13.10 Surgical 4.2.7.2.686 Specialti [phone] es 198 [place] 2019-09-17 2019-09-17 [facility] 1.2.832.174 [id number] Univers 00:00:00 00:00:00 [facility] 350.1.13.10 it y of Surgical 4.2.7.2.686 [place] as Specialti [phone] Me dical es 198 [facility] 2019-09-02 2019-09-02 Emergency [facility] 1.2.331.327 [id number] Univers 05:59:14 07:38:00 [place] Kendrick 350.1.13.10 [place] [phone] [facility] 084 [place] 2019-09-02 2019-09-02 Orders Doctor NIRAV 1.2.840.114 [id number] Univers 00:00:00 00:00:00 Only Unassigned, KENNETH 350.1.13.10 ity of [place] [facility] 4.2.7.2.686 Bran as [phone] [address] 2019-08-30 2019-08-30 [facility]phone [facility] 1.2.840.114 [id number] Univers 00:00:00 00:00:00 [facility] 350.1.13.10 it y of Surgical 4.2.7.2.686 [place] Specialti [phone] De dical es 198 [facility] 2019-08-24 2019-08-24 [facility] [id number] Q-20 Univers 14:00:00 14:00:00 [facility] [id number] ity [facility] 2019-08-24 2019-08-24 [facility] [id number] Univers 14:00:00 14:00:00 [facility] 2019-08-10 2019-08-10 Office [facility] 1.2.840.114 [id number] Univers 15:15:27 16:21:06 Visit [facility] 350.1.13.10 [place] [phone] De dical nal [address] [facility] 2019-08-10 2019-08-10 [facility] [id number] Q-20 Univers 16:00:00 16:00:00 ROBBIE ity [facility] 2019-08-10 2019-08-10 [facility] [id number] Univers 16:00:00 16:00:00 [facility] 2019-07-23 2019-07-23 Out[facility] [id number] Q-20 Univers 10:00:00 10:00:00 ROBBIE [id number] ity [facility] 2019-07-23 2019-07-23 Out[facility] [id number] Univers 10:00:00 10:00:00 [facility] 2019-07-09 2019-07-09 [facility] 1.2.840.114 [id number] Univers 10:27:37 11:55:27 Visit Robbie [place] 350.1.13.10 i [place] [phone] De dical nal [address] [facility] 2019-07-09 2019-07-09 Outpatient [facility] [id number] Q-20 Univers 11:00:00 11:00:00 ROBBIE ity of [facility] 2019-07-09 2019-07-09 Outpatient [facility] [id number] Univers 11:00:00 11:00:00 ROBBIE ity of [facility] 2019-07-04 2019-07-04 Outpatient R [facility] [id number] -[id number] Univers 09:00:00 09:00:00 [id number] ity of [facility] 2019-07-04 2019-07-04 Outpatient R [facility] [id number] Univers 09:00:00 09:00:00 ity of [facility] 2019-07-03 2019-07-03 Outpatient R [facility] [id number] -[id number] Univers 10:00:00 10:00:00 [id number] ity of [facility] 2019-07-03 2019-07-03 Outpatient R [facility] [id number] Univers 10:00:00 10:00:00 ity of [facility] 2019-07-03 2019-07-03 Nurse Nurse, [facility] 1.2. 840.114 [id number] Univers 09:29:30 09:53:59 Visit Robbie Car 350.1.13.10 [place] of [place] [phone] De dical nal [address] [facility] 2019-06-18 2019-06-18 Telephone [facility] 1.2.840.114 [id number] Univers 00:00:00 00:00:00 [facility] 350.1.13.10 it y of Surgical 4.2.7.2.686 [place] as Specialti [phone] De dical es 198 [facility] 2019-06-06 2019-06-06 Nurse Nurse, Adc Surgery [facility] 1.2. 840.114 [id number] Univers 09:58:45 10:28:51 Visit Robbie Car 350.1.13.10 ity of [place] [phone] De dical [facility] [address] [facility] 2019-06-06 2019-06-06 Outpatient R [facility] [id number] -[id number] Univers 09:45:00 09:45:00 [id number] ity [facility] 2019-06-06 2019-06-06 Outpatient [facility] [id number] Univers 09:45:00 09:45:00 [facility] 2019-06-06 2019-06-06 Telephone Gramm, [facility] 1.2.987.602 [id number] Univers 00:00:00 00:00:00 Gloria Kendrick 350.1.13.10 it[place] of [place] [phone] [facility] [address] [facility] 2019-05-24 2019-05-24 Outpatient [facility] [id number] Q-20 Univers 16:15:00 16:15:00 [facility] [id number] [facility] 2019-05-24 2019-05-24 Outpatient R JOYCE [facility] [id number] Univers 16:15:00 16:15:00 [facility] 2019-05-24 2019-05-24 [facility] 1.2.840.114 [id number] Univers 12:43:32 14:03:24 Visit Robbie Kendrick 350.1.13.10 i ty [place] [phone] De dical [facility] [address] [facility] 2019-05-24 2019-05-24 Outpatient [facility] [id number] Univers 13:00:00 13:00:00 [facility] 2019-05-24 2019-05-24 Orders Doctor GASTELUM 1.2.840.114 [id number] Univers 00:00:00 00:00:00 Only Unassigned, KENNETH 350.1.13.10 ity of [place] [facility] 4.2.7.2.686 Bran as [phone] [address] 2019-05-21 2019-05-21 [facility] 1.2.840.114 [id number] Univers 00:00:00 00:00:00 [facility] 350.1.13.10 it y of Surgical 4.2.7.2.686 [place] as Specialti [phone] De dical es 198 [facility] 2019-05-04 2019-05-04 Office [facility] 1.2.840.114 [id number] Univers 11:01:36 12:30:18 Visit Rm, Adc Surg Spec Procedure [place] 3 50.1.13.10 ity of [place] [phone] De dical nal [address] [facility] 2019-05-04 2019-05-04 Outpatient [facility] [id number] Univers 11:00:00 11:00:00 ROBBIE ity of [facility] 2019-05-04 2019-05-04 Orders Doctor NIRAV 1.2.840.114 [id number] Univers 00:00:00 00:00:00 Only Unassigned, KENNETH 350.1.13.10 ity of [place] [facility] 4.2.7.2.686 Bran as [phone] [address] 2019-04-25 2019-04-25 Outpatient [facility] [id number] [facility] 07:22:00 07:22:00 _J_ [id number] Family Practic e 2019-04-24 2019-04-24 Outpatient [facility] [id number] [place] 00:00:00 00:00:00 JULIET [facility] 2019-04-23 2019-04-23 Telephone [facility] 1.2.840.114 [id number] Univers 00:00:00 00:00:00 [facility] 350.1.13.10 i [place] [phone] De dical nal [address] [facility] 2019-04-20 2019-04-20 Outpatient [facility] [id number] Univers 11:00:00 12:03:25 ROBBIE ity of [facility] 2019-04-20 2019-04-20 [facility] 1.2.840.114 [id number] Univers 10:57:47 12:03:25 Visit Robbie [place] 350.1.13.10 i ty [place].2.[place] [phone] De dical nal [address] [facility] 2019-04-20 2019-04-20 Orders Doctor NIRAV 1.2.840.114 [id number] Univers 00:00:00 00:00:00 Only Unassigned, KENNETH 350.1.13.10 ity of [place] [facility] 4.2.7.2.686 Bran as [phone] [address] 2018-10-31 2018-10-31 [facility] 1.2.630.242 [id number] Univers 00:00:00 00:00:00 [facility] 350.1.13.10 it y of Surgical 4.2.7.2.686 [place] as Specialti [phone] De dical es 198 [facility] 2018-10-06 2018-10-06 Office [facility] 1.2.216.999 [id number] Univers 08:24:12 09:20:41 Visit [facility] [place] 350.1.13.10 it y of Surgical 4.2.7.2.686 Bran as Specialti [phone] [facility] 198 [facility] 2018-10-04 2018-10-04 Orders Doctor NIRAV 1.2.840.114 [id number] Univers 00:00:00 00:00:00 Only Unassigned, KENNETH 350.1.13.10 ity of [place] [facility] 4.2.7.2.686 Bran as [phone] [address] 2018-04-20 2018-04-20 Orders Doctor NIRAV 1.2.840.114 [id number] Univers 00:00:00 00:00:00 Only Unassigned, KENNETH 350.1.13.10 ity of [place] [facility] 4.2.7.2.686 Bran as [phone] [place] [address] [place] 2015-02-10 2015-02-10 Outpatient WOLFGANG VALLADARES [facility] [id number] [facility] 16:05:13 17:30:32 LASHON holm of Medicin e Results Test Description Test Time Test Comments Results Result Comments Source CBC WITH DIFF 2021-09-02 00:35:32 Test Item Value Reference Range Interpretation Comme nts WBC (test code = 6690-2) See_Comment [A utomated message] The system which ge nerated this result transmit dena reference range: 4.20 - 1 0.70 10*3/?L. The reference r nela was not used to interpr et this result as normal/abnor mal. RBC (test code = 789-8) See_Comment [Au tomated message] The system which ge nerated this result transmit dena reference range: 4.26 - 5 .52 10*6/?L. The reference r nela was not used to interpr et this result as normal/abnor mal. HGB (test code = 718-7) 13.5 g/dL 12.2-16.4 HCT (test code = 4544-3) 41.9 % 38.4-49.3 MCV (test code = 787-2) 92.3 fL 81.7-95.6 MCH (test code = 785-6) 29.7 pg 26.1-32.7 MCHC (test code = 786-4) 32.2 g/dL 31.2-35.0 RDW-SD (test code = 77946-8) 43.8 fL 38.5-51.6 RDW-CV (test code = 788-0) 12.9 % 12.1-15.4 PLT (test code = 777-3) See_Comment [Au tomated message] The system which ge nerated this result transmit dena reference range: 150 - 32 8 10*3/?L. The reference range was not used to interpret th is result as normal/abnormal . MPV (test code = 36931-5) 11.2 fL 9.8-13.0 NRBC/100 WBC (test code = See_Comment [ Automated message] The 3881374972) system which [place] nerated this result transmit dena reference range: 0.0 - 10 .0 /100 WBCs. The reference r nela was not used to interpr et this result as normal/abnor mal. NRBC x10^3 (test code = <0.01 See_Comment [Au tomated message] The 9833418390) system which [place] nerated this result transmit dena reference range: 10*3/?L. The reference range was not u sed to interpret this result as normal/abnormal . SEG % (test code = 02991-2) 36 % 33-76 BAND % (test code = 60738-1) 2 % 0-1 H LYMPH % (test code = 50 % 14-54 63595-7) MONO % (test code = 52784-4) 7 % 0-4 H EOS % (test code = 96359-0) 5 % 0-3 H ANC (test code = 753-4) 3.25 10*3/uL 1.99-6.95 Lab Interpretation (test Abnormal code = 96908-5) [facility] [id number] 00:12:52 Test Item Value Reference Interpretation Comments Range TROPONIN I (test 0.004 ng/mL See_Comment [Automated code = 2011633174) message] The system which generated this result transmitted reference range : <=0.034. The reference range was not used to interpret this result as normal/abnormal . JETT (test code = Reference (Normal) JETT) Range (defined by the 99th percentile reference limit): <= 0.034 ng/mL Note: Cardiac troponin begins to rise 3-4 hours after the onset of ischemia. Repeat in 4-6 hours if the sample was drawn within 3-4 hours of the onset of the symptom and found normal. Diagnosis of myocardial injury is made with acute changes in cTn concentrations with at least one serial sample above the 99th percentile upper reference limit (URL), taken together with the patient's clinical presentation. Biotin has been reported to cause a negative bias, interpret results relative to patient's use of biotin. Lab Interpretation Normal (test code = 32063-6) [facility] CampusN-TERMINAL [id number] 00:09:50 Test Item Value Reference Range Interpretation Comments NT-proBNP (test code 774 pg/mL See_Comment H [Autom ated = 1254855363) message] The system which generated this result transmitted reference range : <=450. The reference range was not used to interpret this result as normal/abnormal . JETT (test code = JETT) Biotin has been reported to cause a negative bias, interpret results relative to patient's use of biotin. Lab Interpretation Abnormal (test code = 73323-3) [facility] CampusACTIVATED PARTIAL THRMPLAS [id number] 00:03:30 Test Item Value Reference Range Interpretation Comments APTT Patient (test See_Comment [Automat ed code = 3173-2) message] The system which generated this result transmitted reference range : 23 - 38 Seconds . The reference range was not used to interpr et this result as normal/abnormal . JETT (test code = JETT) The [facility] patient population mean normal value for aPTT is 30 seconds. Lab Interpretation Normal (test code = 82307-8) [facility] CampusMAGNESIUM2022-06-29 00:02:09 Test Item Value Reference Range Interpretation Comments MAGNESIUM (test code = 0120903283) 2.1 mg/dL 1.7-2.4 Lab Interpretation (test code = Normal 34029-9) [facility] CampusCOMP. METABOLIC PANEL (75366)2021-09-02 00:01:48 Test Item Value Reference Range Interpretation Comments NA (test code = 142 mmol/L 135-145 5265108877) K (test code = 4.1 mmol/L 3.5-5.0 3238208137) CL (test code = 107 mmol/L 98-108 2015890503) CO2 TOTAL (test code = 27 mmol/L 23-31 1510035015) AGAP (test code = 2-16 5414566974) BUN (test code = 21 mg/dL 7-23 6985375985) GLUCOSE (test code = 135 mg/dL 70-110 H 1004587989) CREATININE (test code = 1.08 mg/dL 0.60-1.25 7560212777) TOTAL BILI (test code = 0.5 mg/dL 0.1-1.1 9159556419) CALCIUM (test code = 8.7 mg/dL 8.6-10.6 2855348552) T PROTEIN (test code = 6.3 g/dL 6.3-8.2 6003487477) ALBUMIN (test code = 3.8 g/dL 3.5-5.0 3629832456) ALK PHOS (test code = 77 U/L 34-122 3360428427) ALTv (test code = 23 U/L 5-50 1742-6) AST(SGOT) (test code = 29 U/L 13-40 3329288885) eGFR (test code = mL/min/1.73m2 9502550250) JETT (test code = JETT) Association of Glomerular Filtration Rate (GFR) and Staging of Kidney Disease* + --+ --+ ------+| GFR (mL/min/1.73 m2) ?| With Kidney Damage ?| ?Without Kidney Damage+ --------+ --------+ +| ?>90 ?| ?Stage one ?| ? Normal ?+ ---+ ---+ -------+| ?60-89 ?| ?Stage two ?| ? Decreased GFR ? + --+ --+ ------+| ?30-59 ?| ?Stage three ?| ? Stage three ? + --+ --+ ------+| ?15-29 ?| ?Stage four ? | ? Stage four ?+ ---+ ---+ -------+| ?<15 (or dialysis) ? ?| ?Stage five ? | ? Stage five ?+ ---+ ---+ -------+ *Each stage assumes the associated GFR level [...] or urine or abnormalities in imaging tests). Lab Interpretation Abnormal (test code = 29767-5) [facility] CampusProthrombin Time / [id number] 00:01:28 Test Item Value Reference Range Interpretation Comments PROTIME PATIENT (test See_Comment H [Auto mated message] code = 5964-2) The system [employer] generated this result transmitted ref erence range: 12.0 - 1 4.7 Seconds. The reference range was not used to int erpret this result as normal/abnormal . INR (test code = 6301-6) Nor mal INR <1.1; Warfarin Therap eutic range 2.0 to 3. 0 or 2.5 to 3.5, dep ending upon the indica tions. Lab Interpretation (test Abnormal code = 38053-0) [facility] CampusAPTT2022-02-02 09:31:43 Test Item Value Reference Range Interpretation Comments PARTIAL THROMBOPLASTIN TIME 87.5 seconds 22.5-36.0 H (BEAKER) (test code = 760) [id number] 07:07:31 Test Item Value Reference Range Interpretation Comments MAGNESIUM (BEAKER) (test code = 2.0 mg/dL 1.6-2.6 627) Mold Shaker ID - PIAYA [id number] 07:07:31 Test Item Value Reference Range Interpretation Comments PHOSPHORUS (BEAKER) (test code = 3.9 mg/dL 2.3-4.7 604) Mold Shaker ID - PIAYA LCOMPREHENSIVE METABOLIC [id number] 07:07:30 Test Item Value Reference Range Interpretation Comments TOTAL PROTEIN 6.0 gm/dL 6.0-8.3 (BEAKER) (test code = 770) ALBUMIN (BEAKER) 3.4 g/dL 3.5-5.0 L (test code = 1145) ALKALINE PHOSPHATASE 53 U/L 40-150 (BEAKER) (test code = 346) BILIRUBIN TOTAL 0.7 mg/dL 0.2-1.2 (BEAKER) (test code = 377) SODIUM (BEAKER) (test 141 meq/L 136-145 code = 381) POTASSIUM (BEAKER) 3.9 meq/L 3.5-5.1 (test code = 379) CHLORIDE (BEAKER) 111 meq/L 98-107 H (test code = 382) CO2 (BEAKER) (test 25 meq/L 22-29 code = 355) BLOOD UREA NITROGEN 15 mg/dL 7-21 (BEAKER) (test code = 354) CREATININE (BEAKER) 0.83 mg/dL 0.57-1.25 (test code = 358) GLUCOSE RANDOM 97 mg/dL 70-105 (BEAKER) (test code = 652) CALCIUM (BEAKER) 8.8 mg/dL 8.4-10.2 (test code = 697) AST (SGOT) (BEAKER) 18 U/L 5-34 (test code = 353) ALT (SGPT) (BEAKER) 16 U/L 6-55 (test code = 347) EGFR (BEAKER) (test 87 mL/min/1.73 ESTIMA DENA GFR IS code = 1092) sq m NOT ACCURATE CREATININE CLEARANCE IN PREDICTING GLOMERULAR FILTRATION RATE . ESTIMATED GFR I S NOT APPLICABLE FOR DIALYSIS PATIEN TS. Mold Shaker ID - PIAYA [id number] 06:38:29 Test Item Value Reference Range Interpretation Comments PARTIAL THROMBOPLASTIN TIME 115.6 seconds 22.5-36.0 H (BEAKER) (test code = 760) CBC W/PLT COUNT & AUTO [id number] 06:16:50 Test Item Value Reference Range Interpretation Comments WHITE BLOOD CELL COUNT (BEAKER) 8.1 K/ L 3.5-10.5 (test code = 775) RED BLOOD CELL COUNT (BEAKER) 4.07 M/ L 4.63-6.08 L (test code = 761) HEMOGLOBIN (BEAKER) (test code = 12.4 GM/DL 13.7-17.5 L 410) HEMATOCRIT (BEAKER) (test code = 38.5 % 40.1-51.0 L 411) MEAN CORPUSCULAR VOLUME (BEAKER) 94.6 fL 79.0-92.2 H (test code = 753) MEAN CORPUSCULAR HEMOGLOBIN 30.5 pg 25.7-32.2 (BEAKER) (test code = 751) MEAN CORPUSCULAR HEMOGLOBIN CONC 32.2 GM/DL 32.3-36.5 L (BEAKER) (test code = 752) RED CELL DISTRIBUTION WIDTH 13.2 % 11.6-14.4 (BEAKER) (test code = 412) PLATELET COUNT (BEAKER) (test 180 K/CU MM 150-450 code = 756) MEAN PLATELET VOLUME (BEAKER) 11.2 fL 9.4-12.4 (test code = 754) NUCLEATED RED BLOOD CELLS 0 /100 WBC 0-0 (BEAKER) (test code = 413) NEUTROPHILS RELATIVE PERCENT 51 % (BEAKER) (test code = 429) LYMPHOCYTES RELATIVE PERCENT 35 % (BEAKER) (test code = 430) MONOCYTES RELATIVE PERCENT 8 % (BEAKER) (test code = 431) EOSINOPHILS RELATIVE PERCENT 5 % (BEAKER) (test code = 432) BASOPHILS RELATIVE PERCENT 1 % (BEAKER) (test code = 437) NEUTROPHILS ABSOLUTE COUNT 4.09 K/ L 1.78-5.38 (BEAKER) (test code = 670) LYMPHOCYTES ABSOLUTE COUNT 2.81 K/ L 1.32-3.57 (BEAKER) (test code = 414) MONOCYTES ABSOLUTE COUNT (BEAKER) 0.65 K/ L 0.30-0.82 (test code = 415) EOSINOPHILS ABSOLUTE COUNT 0.40 K/ L 0.04-0.54 (BEAKER) (test code = 416) BASOPHILS ABSOLUTE COUNT (BEAKER) 0.09 K/ L 0.01-0.08 H (test code = 417) IMMATURE GRANULOCYTES-RELATIVE 1 % 0-1 PERCENT (BEAKER) (test code = 2801) PROTHROMBIN TIME/[id number] 06:13:51 Test Item Value Reference Range Interpretation Comments PROTIME (BEAKER) 20.5 seconds 11.9-14.2 H (test code = 759) INR (BEAKER) (test 1.78 See_Comment [Automat ed message] code = 370) The system [employer] generated this result transmitted ref erence range: <=5.90. The reference range was not used to int erpret this result as normal/abnormal . RECOMMENDED COUMADIN/WARFARIN INR THERAPY RANGESSTANDARD DOSE: 2.0 - 3.0 Includes: PROPHYLAXIS for venous thrombosis, systemic embolization; TREATMENT for venous thrombosis and/or pulmonary embolus.HIGH RISK: Target INR is 2.5-3.5 for patients with mechanical heart valves.[id number] 01:58:38 Test Item Value Reference Range Interpretation Comments PARTIAL THROMBOPLASTIN TIME 88.8 seconds 22.5-36.0 H (BEAKER) (test code = 760) POCT-GLUCOSE [id number] 23:44:39 Test Item Value Reference Range Interpretation Comments POC-GLUCOSE METER 103 mg/dL 70-110 : TESTED A [facility] (BEAKER) (test code = [place], 1538) [address]: Mold Shaker/Techni cory ID = [id number] for Ashley Garcia [id number] 18:49:14 Test Item Value Reference Range Interpretation Comments PARTIAL THROMBOPLASTIN TIME 62.6 seconds 22.5-36.0 H (BEAKER) (test code = 760) POCT-GLUCOSE [id number] 11:52:36 Test Item Value Reference Range Interpretation Comments POC-GLUCOSE METER 88 mg/dL 70-110 : TESTED A T [facility] (BEAKER) (test code = CHAK[place], 1538) [address]: Mold Shaker/Techni cory ID = [id number] for MARISELA KELLOGG [id number] 10:29:13 Test Item Value Reference Range Interpretation Comments PARTIAL THROMBOPLASTIN TIME 95.0 seconds 22.5-36.0 H (BEAKER) (test code = 760) [id number] 09:21:32 Test Item Value Reference Range Interpretation Comments PHOSPHORUS (BEAKER) (test code = 3.9 mg/dL 2.3-4.7 604) Mold Shaker ID - PIAYA LCOMPREHENSIVE METABOLIC [id number] 09:21:31 Test Item Value Reference Range Interpretation Comments TOTAL PROTEIN 6.2 gm/dL 6.0-8.3 (BEAKER) (test code = 770) ALBUMIN (BEAKER) 3.7 g/dL 3.5-5.0 (test code = 1145) ALKALINE PHOSPHATASE 57 U/L 40-150 (BEAKER) (test code = 346) BILIRUBIN TOTAL 0.9 mg/dL 0.2-1.2 (BEAKER) (test code = 377) SODIUM (BEAKER) (test 138 meq/L 136-145 code = 381) POTASSIUM (BEAKER) 3.7 meq/L 3.5-5.1 (test code = 379) CHLORIDE (BEAKER) 108 meq/L 98-107 H (test code = 382) CO2 (BEAKER) (test 24 meq/L 22-29 code = 355) BLOOD UREA NITROGEN 15 mg/dL 7-21 (BEAKER) (test code = 354) CREATININE (BEAKER) 0.94 mg/dL 0.57-1.25 (test code = 358) GLUCOSE RANDOM 94 mg/dL 70-105 (BEAKER) (test code = 652) CALCIUM (BEAKER) 8.7 mg/dL 8.4-10.2 (test code = 697) AST (SGOT) (BEAKER) 17 U/L 5-34 (test code = 353) ALT (SGPT) (BEAKER) 14 U/L 6-55 (test code = 347) EGFR (BEAKER) (test 76 mL/min/1.73 ESTIMA DENA GFR IS code = 1092) sq m NOT ACCURATE CREATININE CLEARANCE IN PREDICTING GLOMERULAR FILTRATION RATE . ESTIMATED GFR I S NOT APPLICABLE FOR DIALYSIS PATIEN TS. Mold Shaker ID - PIENRIKE [id number] 09:21:31 Test Item Value Reference Range Interpretation Comments MAGNESIUM (BEAKER) (test code = 2.0 mg/dL 1.6-2.6 627) Mold Shaker ID - MERON LPROTHROMBIN [id number] 06:28:22 Test Item Value Reference Range Interpretation Comments PROTIME (BEAKER) 16.4 seconds 11.9-14.2 H (test code = 759) INR (BEAKER) (test 1.35 See_Comment [Automat ed message] code = 370) The system [employer] generated this result transmitted ref erence range: <=5.90. The reference range was not used to int erpret this result as normal/abnormal . RECOMMENDED COUMADIN/WARFARIN INR THERAPY RANGESSTANDARD DOSE: 2.0 - 3.0 Includes: PROPHYLAXIS for venous thrombosis, systemic embolization; TREATMENT for venous thrombosis and/or pulmonary embolus.HIGH RISK: Target INR is 2.5-3.5 for patients with mechanical heart valves.CBC W/PLT COUNT & AUTO [id number] 06:24:34 Test Item Value Reference Range Interpretation Comments WHITE BLOOD CELL COUNT (BEAKER) 7.5 K/ L 3.5-10.5 (test code = 775) RED BLOOD CELL COUNT (BEAKER) 4.13 M/ L 4.63-6.08 L (test code = 761) HEMOGLOBIN (BEAKER) (test code = 12.3 GM/DL 13.7-17.5 L 410) HEMATOCRIT (BEAKER) (test code = 38.3 % 40.1-51.0 L 411) MEAN CORPUSCULAR VOLUME (BEAKER) 92.7 fL 79.0-92.2 H (test code = 753) MEAN CORPUSCULAR HEMOGLOBIN 29.8 pg 25.7-32.2 (BEAKER) (test code = 751) MEAN CORPUSCULAR HEMOGLOBIN CONC 32.1 GM/DL 32.3-36.5 L (BEAKER) (test code = 752) RED CELL DISTRIBUTION WIDTH 12.8 % 11.6-14.4 (BEAKER) (test code = 412) PLATELET COUNT (BEAKER) (test 161 K/CU MM 150-450 code = 756) MEAN PLATELET VOLUME (BEAKER) 11.6 fL 9.4-12.4 (test code = 754) NUCLEATED RED BLOOD CELLS 0 /100 WBC 0-0 (BEAKER) (test code = 413) NEUTROPHILS RELATIVE PERCENT 45 % (BEAKER) (test code = 429) LYMPHOCYTES RELATIVE PERCENT 40 % (BEAKER) (test code = 430) MONOCYTES RELATIVE PERCENT 8 % (BEAKER) (test code = 431) EOSINOPHILS RELATIVE PERCENT 6 % (BEAKER) (test code = 432) BASOPHILS RELATIVE PERCENT 1 % (BEAKER) (test code = 437) NEUTROPHILS ABSOLUTE COUNT 3.43 K/ L 1.78-5.38 (BEAKER) (test code = 670) LYMPHOCYTES ABSOLUTE COUNT 3.00 K/ L 1.32-3.57 (BEAKER) (test code = 414) MONOCYTES ABSOLUTE COUNT (BEAKER) 0.57 K/ L 0.30-0.82 (test code = 415) EOSINOPHILS ABSOLUTE COUNT 0.46 K/ L 0.04-0.54 (BEAKER) (test code = 416) BASOPHILS ABSOLUTE COUNT (BEAKER) 0.06 K/ L 0.01-0.08 (test code = 417) IMMATURE GRANULOCYTES-RELATIVE 0 % 0-1 PERCENT (BEAKER) (test code = 2801) POCT-GLUCOSE [id number] 06:13:53 Test Item Value Reference Range Interpretation Comments POC-GLUCOSE METER 100 mg/dL 70-110 : TESTED Rebecca Jason [facility] (BEAKER) (test code = [place], 1538) [id number]: Mold Shaker/Techni cory ID = [id number] for Ashley Garcia POCT-GLUCOSE [id number] 00:08:35 Test Item Value Reference Range Interpretation Comments POC-GLUCOSE METER 100 mg/dL 70-110 : TESTED A T [facility] (DAVE) (test code = [place], 1538) [address]: Mold Shaker/Techni cory ID = [id number] for Ashley Gracia [id number] 23:35:31 Test Item Value Reference Range Interpretation Comments PARTIAL THROMBOPLASTIN TIME 109.7 seconds 22.5-36.0 H (BEAKER) (test code = 760) [id number] 09:46:56 Test Item Value Reference Range Interpretation Comments PARTIAL THROMBOPLASTIN TIME 33.2 seconds 22.5-36.0 (BEAKER) (test code = 760) CT, CHEST, WITH [id number] 08:40:00Unlisted Reason for Exam - Click Yes and Enter Reason Below->Yespost TAVRUnlisted Reason for Exam->evalauate for leaflet thrombosis [facility] : 1935 Sex: MFINAL REPORT CT Chest with contrast History:Assess for leaflet thrombosis Comparison:01/02/2020 Technique: serial axial imaging was performed following up to 100cc of non ionic iodinated intravenous contrast as per departmental protocol. Multiplanar images are reconstructed and reviewed when indicated. This CT examination is performed using one or more of the following dose reduction techniques: Automated exposure control, adjustment of the mA and /or kV according to patient size, and/or use of iterative reconstruction technique. Findings:No mediastinal or hilar lymphadenopathy.Normal size heart. No pericardial effusion. Postoperative changes of previous aortic valve replacement. No intracardiac thrombus is identified. No thoracic aortic aneurysm or dissection. No central pulmonary arterial filling defect. Patent central airways. No pleural effusion or pneumothorax. Bilateral calcified pleural plaques, suggesting previous suspected exposure. There are scattered calcified granulomata within the lungs, consistent with previous granulomatous disease. The lungs are otherwise clear. No significant findings in the partially imaged abdomen. No aggressive osseous lesion. Moderatechronic appearing L1 compression deformity, without fragment retropulsion. Impression: 1. No acute findings in the chest.2. No intracardiac thrombus is identified.3. Previous aortic valve replacement.4. 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 Signed: Hudson PolancoMDReport Verified Date/Time: 04/06/2021 08:40:10 REHENSIVE METABOLIC [id number] 06:21:48 Test Item Value Reference Range Interpretation Comments TOTAL PROTEIN 5.9 gm/dL 6.0-8.3 L (BEAKER) (test code = 770) ALBUMIN (BEAKER) 3.4 g/dL 3.5-5.0 L (test code = 1145) ALKALINE PHOSPHATASE 55 U/L 40-150 (BEAKER) (test code = 346) BILIRUBIN TOTAL 1.0 mg/dL 0.2-1.2 (BEAKER) (test code = 377) SODIUM (BEAKER) (test 141 meq/L 136-145 code = 381) POTASSIUM (BEAKER) 3.7 meq/L 3.5-5.1 (test code = 379) CHLORIDE (BEAKER) 109 meq/L 98-107 H (test code = 382) CO2 (BEAKER) (test 25 meq/L 22-29 code = 355) BLOOD UREA NITROGEN 13 mg/dL 7-21 (BEAKER) (test code = 354) CREATININE (BEAKER) 0.82 mg/dL 0.57-1.25 (test code = 358) GLUCOSE RANDOM 91 mg/dL 70-105 (BEAKER) (test code = 652) CALCIUM (BEAKER) 9.1 mg/dL 8.4-10.2 (test code = 697) AST (SGOT) (BEAKER) 14 U/L 5-34 (test code = 353) ALT (SGPT) (BEAKER) 10 U/L 6-55 (test code = 347) EGFR (BEAKER) (test 89 mL/min/1.73 ESTIMA DENA GFR IS code = 1092) sq m NOT ACCURATE CREATININE CLEARANCE IN PREDICTING GLOMERULAR FILTRATION RATE . ESTIMATED GFR I S NOT APPLICABLE FOR DIALYSIS PATIEN TS. Mold Shaker ID - MERON Manriqueztor ID - [id number] 05:55:52 Test Item Value Reference Range Interpretation Comments PHOSPHORUS (BEAKER) (test code = 4.2 mg/dL 2.3-4.7 604) Mold Shaker ID - MERON [id number] 05:55:51 Test Item Value Reference Range Interpretation Comments MAGNESIUM (BEAKER) (test code = 2.0 mg/dL 1.6-2.6 627) Mold Shaker ID - MERON LPROTHROMBIN [id number] 05:31:15 Test Item Value Reference Range Interpretation Comments PROTIME (BEAKER) 14.4 seconds 11.9-14.2 H (test code = 759) INR (BEAKER) (test 1.14 See_Comment [Automat ed message] code = 370) The system [employer] generated this result transmitted ref erence range: <=5.90. The reference range was not used to int erpret this result as normal/abnormal . RECOMMENDED COUMADIN/WARFARIN INR THERAPY RANGESSTANDARD DOSE: 2.0 - 3.0 Includes: PROPHYLAXIS for venous thrombosis, systemic embolization; TREATMENT for venous thrombosis and/or pulmonary embolus.HIGH RISK: Target INR is 2.5-3.5 for patients with mechanical heart valves.CBC W/PLT COUNT & AUTO [id number] 05:15:40 Test Item Value Reference Range Interpretation Comments WHITE BLOOD CELL COUNT (BEAKER) 7.1 K/ L 3.5-10.5 (test code = 775) RED BLOOD CELL COUNT (BEAKER) 4.06 M/ L 4.63-6.08 L (test code = 761) HEMOGLOBIN (BEAKER) (test code = 12.1 GM/DL 13.7-17.5 L 410) HEMATOCRIT (BEAKER) (test code = 38.3 % 40.1-51.0 L 411) MEAN CORPUSCULAR VOLUME (BEAKER) 94.3 fL 79.0-92.2 H (test code = 753) MEAN CORPUSCULAR HEMOGLOBIN 29.8 pg 25.7-32.2 (BEAKER) (test code = 751) MEAN CORPUSCULAR HEMOGLOBIN CONC 31.6 GM/DL 32.3-36.5 L (BEAKER) (test code = 752) RED CELL DISTRIBUTION WIDTH 12.8 % 11.6-14.4 (BEAKER) (test code = 412) PLATELET COUNT (BEAKER) (test 169 K/CU MM 150-450 code = 756) MEAN PLATELET VOLUME (BEAKER) 11.2 fL 9.4-12.4 (test code = 754) NUCLEATED RED BLOOD CELLS 0 /100 WBC 0-0 (BEAKER) (test code = 413) NEUTROPHILS RELATIVE PERCENT 43 % (BEAKER) (test code = 429) LYMPHOCYTES RELATIVE PERCENT 42 % (BEAKER) (test code = 430) MONOCYTES RELATIVE PERCENT 8 % (BEAKER) (test code = 431) EOSINOPHILS RELATIVE PERCENT 6 % (BEAKER) (test code = 432) BASOPHILS RELATIVE PERCENT 1 % (BEAKER) (test code = 437) NEUTROPHILS ABSOLUTE COUNT 3.05 K/ L 1.78-5.38 (BEAKER) (test code = 670) LYMPHOCYTES ABSOLUTE COUNT 2.99 K/ L 1.32-3.57 (BEAKER) (test code = 414) MONOCYTES ABSOLUTE COUNT (BEAKER) 0.53 K/ L 0.30-0.82 (test code = 415) EOSINOPHILS ABSOLUTE COUNT 0.45 K/ L 0.04-0.54 (BEAKER) (test code = 416) BASOPHILS ABSOLUTE COUNT (BEAKER) 0.06 K/ L 0.01-0.08 (test code = 417) IMMATURE GRANULOCYTES-RELATIVE 0 % 0-1 PERCENT (BEAKER) (test code = 2801) [id number] 02:49:42 Test Item Value Reference Range Interpretation Comments PARTIAL THROMBOPLASTIN TIME 43.7 seconds 22.5-36.0 H (BEAKER) (test code = 760) POCT-GLUCOSE [id number] 22:40:25 Test Item Value Reference Range Interpretation Comments POC-GLUCOSE METER 95 mg/dL 70-110 : TESTED A T [facility] (BEAKER) (test code = [place], 1538) [id number]: Mold Shaker/Techni cory ID = [id number] for Rojelio celso (Alba Servin [id number] 18:10:18 Test Item Value Reference Range Interpretation Comments PARTIAL THROMBOPLASTIN TIME 109.1 seconds 22.5-36.0 H (BEAKER) (test code = 760) [id number] 12:21:05 Test Item Value Reference Range Interpretation Comments PARTIAL THROMBOPLASTIN TIME 70.1 seconds 22.5-36.0 H (BEAKER) (test code = 760) POCT-GLUCOSE [id number] 06:54:14 Test Item Value Reference Range Interpretation Comments POC-GLUCOSE METER 93 mg/dL 70-110 : TESTED A T [facility] (BEAKER) (test code = [place], 1538) [id number]: Mold Shaker/Techni cory ID = [id number] for Ela Hilario [id number] 05:14:19 Test Item Value Reference Range Interpretation Comments PARTIAL THROMBOPLASTIN TIME 85.7 seconds 22.5-36.0 H (BEAKER) (test code = 760) PROTHROMBIN [id number] 05:12:27 Test Item Value Reference Range Interpretation Comments PROTIME (BEAKER) 14.5 seconds 11.9-14.2 H (test code = 759) INR (BEAKER) (test 1.15 See_Comment [Automat ed message] code = 370) The system [employer] generated this result transmitted ref erence range: <=5.90. The reference range was not used to int erpret this result as normal/abnormal . RECOMMENDED COUMADIN/WARFARIN INR THERAPY RANGESSTANDARD DOSE: 2.0 - 3.0 Includes: PROPHYLAXIS for venous thrombosis, systemic embolization; TREATMENT for venous thrombosis and/or pulmonary embolus.HIGH RISK: Target INR is 2.5-3.5 for patients with mechanical heart valves.COMPREHENSIVE METABOLIC PANEL 2021-04-05 05:05:36 Test Item Value Reference Range Interpretation Comments TOTAL PROTEIN 6.0 gm/dL 6.0-8.3 (BEAKER) (test code = 770) ALBUMIN (BEAKER) 3.5 g/dL 3.5-5.0 (test code = 1145) ALKALINE PHOSPHATASE 51 U/L 40-150 (BEAKER) (test code = 346) [...] (BEAKER) (test code = 354) CREATININE (BEAKER) 0.85 mg/dL 0.57-1.25 (test code = 358) GLUCOSE RANDOM 98 mg/dL 70-105 (BEAKER) (test code = 652) CALCIUM (BEAKER) 8.8 mg/dL 8.4-10.2 (test code = 697) AST (SGOT) (BEAKER) 15 U/L 5-34 (test code = 353) ALT (SGPT) (BEAKER) 11 U/L 6-55 (test code = 347) EGFR (BEAKER) (test 85 mL/min/1.73 ESTIMA DENA GFR IS code = 1092) sq m NOT ACCURATE CREATININE CLEARANCE IN PREDICTING GLOMERULAR FILTRATION RATE . ESTIMATED GFR I S NOT APPLICABLE FOR DIALYSIS PATIEN TS. Mold Shaker ID - [id number] 05:05:36 Test Item Value Reference Range Interpretation Comments MAGNESIUM (BEAKER) (test code = 2.0 mg/dL 1.6-2.6 627) Mold Shaker ID - [id number] 05:05:36 Test Item Value Reference Range Interpretation Comments PHOSPHORUS (BEAKER) (test code = 3.8 mg/dL 2.3-4.7 604) Mold Shaker ID - DBCBC W/PLT COUNT & AUTO [id number] 04:29:42 Test Item Value Reference Range Interpretation Comments WHITE BLOOD CELL COUNT (BEAKER) 7.0 K/ L 3.5-10.5 (test code = 775) RED BLOOD CELL COUNT (BEAKER) 3.93 M/ L 4.63-6.08 L (test code = 761) HEMOGLOBIN (BEAKER) (test code = 12.0 GM/DL 13.7-17.5 L 410) HEMATOCRIT (BEAKER) (test code = 34.9 % 40.1-51.0 L 411) MEAN CORPUSCULAR VOLUME (BEAKER) 88.8 fL 79.0-92.2 (test code = 753) MEAN CORPUSCULAR HEMOGLOBIN 30.5 pg 25.7-32.2 (BEAKER) (test code = 751) MEAN CORPUSCULAR HEMOGLOBIN CONC 34.4 GM/DL 32.3-36.5 (BEAKER) (test code = 752) RED CELL DISTRIBUTION WIDTH 12.8 % 11.6-14.4 (BEAKER) (test code = 412) PLATELET COUNT (BEAKER) (test 136 K/CU MM 150-450 L code = 756) MEAN PLATELET VOLUME (BEAKER) 10.9 fL 9.4-12.4 (test code = 754) NUCLEATED RED BLOOD CELLS 0 /100 WBC 0-0 (BEAKER) (test code = 413) NEUTROPHILS RELATIVE PERCENT 47 % (BEAKER) (test code = 429) LYMPHOCYTES RELATIVE PERCENT 38 % (BEAKER) (test code = 430) MONOCYTES RELATIVE PERCENT 8 % (BEAKER) (test code = 431) EOSINOPHILS RELATIVE PERCENT 7 % (BEAKER) (test code = 432) BASOPHILS RELATIVE PERCENT 1 % (BEAKER) (test code = 437) NEUTROPHILS ABSOLUTE COUNT 3.26 K/ L 1.78-5.38 (BEAKER) (test code = 670) LYMPHOCYTES ABSOLUTE COUNT 2.62 K/ L 1.32-3.57 (BEAKER) (test code = 414) MONOCYTES ABSOLUTE COUNT (BEAKER) 0.55 K/ L 0.30-0.82 (test code = 415) EOSINOPHILS ABSOLUTE COUNT 0.47 K/ L 0.04-0.54 (BEAKER) (test code = 416) BASOPHILS ABSOLUTE COUNT (BEAKER) 0.06 K/ L 0.01-0.08 (test code = 417) IMMATURE GRANULOCYTES-RELATIVE 0 % 0-1 PERCENT (BEAKER) (test code = 2801) POCT-GLUCOSE [id number] 00:54:16 Test Item Value Reference Range Interpretation Comments POC-GLUCOSE METER 94 mg/dL 70-110 : TESTED A T [facility] (BEAKER) (test code = [place], 1538) [address]: Mold Shaker/Techni cory ID = [id number] for Amira charles Kjumesh PROTHROMBIN [id number] 09:53:09 Test Item Value Reference Range Interpretation Comments PROTIME (BEAKER) 15.4 seconds 11.9-14.2 H (test code = 759) INR (BEAKER) (test 1.24 See_Comment [Automat ed message] code = 370) The system [employer] generated this result transmitted ref erence range: <=5.90. The reference range was not used to int erpret this result as normal/abnormal . RECOMMENDED COUMADIN/WARFARIN INR THERAPY RANGESSTANDARD DOSE: 2.0 - 3.0 Includes: PROPHYLAXIS for venous thrombosis, systemic embolization; TREATMENT for venous thrombosis and/or pulmonary embolus.HIGH RISK: Target INR is 2.5-3.5 for patients with mechanical heart valves.[id number] 07:06:20 Test Item Value Reference Range Interpretation Comments PHOSPHORUS (BEAKER) (test code = 3.0 mg/dL 2.3-4.7 604) Mold Shaker ID - TRISTIAN WCOMPREHENSIVE METABOLIC [id number] 07:06:19 Test Item Value Reference Range Interpretation Comments TOTAL PROTEIN 5.8 gm/dL 6.0-8.3 L (BEAKER) (test code = 770) ALBUMIN (BEAKER) 3.3 g/dL 3.5-5.0 L (test code = 1145) ALKALINE PHOSPHATASE 50 U/L 40-150 (BEAKER) (test code = 346) BILIRUBIN TOTAL 1.0 mg/dL 0.2-1.2 (BEAKER) (test code = 377) [...] 0.57-1.25 (test code = 358) GLUCOSE RANDOM 91 mg/dL 70-105 (BEAKER) (test code = 652) CALCIUM (BEAKER) 8.6 mg/dL 8.4-10.2 (test code = 697) AST (SGOT) (BEAKER) 17 U/L 5-34 (test code = 353) ALT (SGPT) (BEAKER) 11 U/L 6-55 (test code = 347) EGFR (BEAKER) (test 87 mL/min/1.73 ESTIMA DENA GFR IS code = 1092) sq m NOT ACCURATE CREATININE CLEARANCE IN PREDICTING GLOMERULAR FILTRATION RATE . ESTIMATED GFR I S NOT APPLICABLE FOR DIALYSIS PATIEN TS. Mold Shaker ID - TRISTIAN [id number] 07:06:19 Test Item Value Reference Range Interpretation Comments MAGNESIUM (BEAKER) (test code = 2.0 mg/dL 1.6-2.6 627) Mold Shaker ID - TRISTIAN [id number] 06:30:10 Test Item Value Reference Range Interpretation Comments PARTIAL THROMBOPLASTIN TIME 76.4 seconds 22.5-36.0 H (BEAKER) (test code = 760) CBC W/PLT COUNT & AUTO [id number] 06:21:06 Test Item Value Reference Range Interpretation Comments WHITE BLOOD CELL COUNT (BEAKER) 8.5 K/ L 3.5-10.5 (test code = 775) RED BLOOD CELL COUNT (BEAKER) 3.78 M/ L 4.63-6.08 L (test code = 761) HEMOGLOBIN (BEAKER) (test code = 11.4 GM/DL 13.7-17.5 L 410) HEMATOCRIT (BEAKER) (test code = 34.1 % 40.1-51.0 L 411) MEAN CORPUSCULAR VOLUME (BEAKER) 90.2 fL 79.0-92.2 (test code = 753) MEAN CORPUSCULAR HEMOGLOBIN 30.2 pg 25.7-32.2 (BEAKER) (test code = 751) MEAN CORPUSCULAR HEMOGLOBIN CONC 33.4 GM/DL 32.3-36.5 (BEAKER) (test code = 752) RED CELL DISTRIBUTION WIDTH 13.0 % 11.6-14.4 (BEAKER) (test code = 412) PLATELET COUNT (BEAKER) (test 115 K/CU MM 150-450 L code = 756) MEAN PLATELET VOLUME (BEAKER) 11.4 fL 9.4-12.4 (test code = 754) NUCLEATED RED BLOOD CELLS 0 /100 WBC 0-0 (BEAKER) (test code = 413) NEUTROPHILS RELATIVE PERCENT 55 % (BEAKER) (test code = 429) LYMPHOCYTES RELATIVE PERCENT 31 % (BEAKER) (test code = 430) MONOCYTES RELATIVE PERCENT 8 % (BEAKER) (test code = 431) EOSINOPHILS RELATIVE PERCENT 5 % (BEAKER) (test code = 432) BASOPHILS RELATIVE PERCENT 1 % (BEAKER) (test code = 437) NEUTROPHILS ABSOLUTE COUNT 4.63 K/ L 1.78-5.38 (BEAKER) (test code = 670) LYMPHOCYTES ABSOLUTE COUNT 2.58 K/ L 1.32-3.57 (BEAKER) (test code = 414) MONOCYTES ABSOLUTE COUNT (BEAKER) 0.70 K/ L 0.30-0.82 (test code = 415) EOSINOPHILS ABSOLUTE COUNT 0.44 K/ L 0.04-0.54 (BEAKER) (test code = 416) BASOPHILS ABSOLUTE COUNT (BEAKER) 0.07 K/ L 0.01-0.08 (test code = 417) IMMATURE GRANULOCYTES-RELATIVE 0 % 0-1 PERCENT (BEAKER) (test code = 2801) [id number] 23:26:41 Test Item Value Reference Range Interpretation Comments PARTIAL THROMBOPLASTIN TIME 81.1 seconds 22.5-36.0 H (BEAKER) (test code = 760) HEMOGLOBIN AND [id number] 23:26:00 Test Item Value Reference Range Interpretation Comments HEMOGLOBIN (BEAKER) (test code = 11.6 GM/DL 13.7-17.5 L 410) HEMATOCRIT (BEAKER) (test code = 35.4 % 40.1-51.0 L 411) Mold Shaker ID - [id number] ID - [id number] 12:04:57 Test Item Value Reference Range Interpretation Comments PARTIAL THROMBOPLASTIN TIME 32.2 seconds 22.5-36.0 (BEAKER) (test code = 760) PLATELET [id number] 12:03:08 Test Item Value Reference Range Interpretation Comments PLATELET COUNT (BEAKER) (test 110 K/CU MM 150-450 L code = 756) Mold Shaker ID - [id number] ID - [id number] 05:25:05 Test Item Value Reference Range Interpretation Comments PHOSPHORUS (BEAKER) (test code = 2.2 mg/dL 2.3-4.7 L 604) Mold Shaker ID - MERON LCOMPREHENSIVE METABOLIC [id number] 05:25:04 Test Item Value Reference Range Interpretation Comments TOTAL PROTEIN 5.6 gm/dL 6.0-8.3 L (BEAKER) (test code = 770) ALBUMIN (BEAKER) 3.2 g/dL 3.5-5.0 L (test code = 1145) ALKALINE PHOSPHATASE 46 U/L 40-150 (BEAKER) (test code = 346) BILIRUBIN TOTAL 1.4 mg/dL 0.2-1.2 H (BEAKER) (test code = 377) SODIUM (BEAKER) (test 138 meq/L 136-145 code = 381) POTASSIUM (BEAKER) 3.6 meq/L 3.5-5.1 (test code = 379) CHLORIDE (BEAKER) 107 meq/L 98-107 (test code = 382) CO2 (BEAKER) (test 26 meq/L 22-29 code = 355) BLOOD UREA NITROGEN 20 mg/dL 7-21 (BEAKER) (test code = 354) CREATININE (BEAKER) 1.00 mg/dL 0.57-1.25 (test code = 358) GLUCOSE RANDOM 108 mg/dL 70-105 H (BEAKER) (test code = 652) CALCIUM (BEAKER) 8.5 mg/dL 8.4-10.2 (test code = 697) AST (SGOT) (BEAKER) 14 U/L 5-34 (test code = 353) ALT (SGPT) (BEAKER) 8 U/L 6-55 (test code = 347) EGFR (BEAKER) (test 71 mL/min/1.73 ESTIMA DENA GFR IS code = 1092) sq m NOT ACCURATE CREATININE CLEARANCE IN PREDICTING GLOMERULAR FILTRATION RATE . ESTIMATED GFR I S NOT APPLICABLE FOR DIALYSIS PATIEN TS. Mold Shaker ID - PIAYA [id number] 05:25:04 Test Item Value Reference Range Interpretation Comments MAGNESIUM (BEAKER) (test code = 2.0 mg/dL 1.6-2.6 627) Mold Shaker ID - MERON LCBC W/PLT COUNT & AUTO [id number] 05:07:55 Test Item Value Reference Range Interpretation Comments WHITE BLOOD CELL COUNT (BEAKER) 12.1 K/ L 3.5-10.5 H (test code = 775) RED BLOOD CELL COUNT (BEAKER) 3.72 M/ L 4.63-6.08 L (test code = 761) HEMOGLOBIN (BEAKER) (test code = 11.4 GM/DL 13.7-17.5 L 410) HEMATOCRIT (BEAKER) (test code = 34.3 % 40.1-51.0 L 411) MEAN CORPUSCULAR VOLUME (BEAKER) 92.2 fL 79.0-92.2 (test code = 753) MEAN CORPUSCULAR HEMOGLOBIN 30.6 pg 25.7-32.2 (BEAKER) (test code = 751) MEAN CORPUSCULAR HEMOGLOBIN CONC 33.2 GM/DL 32.3-36.5 (BEAKER) (test code = 752) RED CELL DISTRIBUTION WIDTH 13.1 % 11.6-14.4 (BEAKER) (test code = 412) PLATELET COUNT (BEAKER) (test 108 K/CU MM 150-450 L code = 756) MEAN PLATELET VOLUME (BEAKER) 11.2 fL 9.4-12.4 (test code = 754) NUCLEATED RED BLOOD CELLS 0 /100 WBC 0-0 (BEAKER) (test code = 413) NEUTROPHILS RELATIVE PERCENT 73 % (BEAKER) (test code = 429) LYMPHOCYTES RELATIVE PERCENT 17 % (BEAKER) (test code = 430) MONOCYTES RELATIVE PERCENT 8 % (BEAKER) (test code = 431) EOSINOPHILS RELATIVE PERCENT 1 % (BEAKER) (test code = 432) BASOPHILS RELATIVE PERCENT 0 % (BEAKER) (test code = 437) NEUTROPHILS ABSOLUTE COUNT 8.83 K/ L 1.78-5.38 H (BEAKER) (test code = 670) LYMPHOCYTES ABSOLUTE COUNT 2.04 K/ L 1.32-3.57 (BEAKER) (test code = 414) MONOCYTES ABSOLUTE COUNT (BEAKER) 0.95 K/ L 0.30-0.82 H (test code = 415) EOSINOPHILS ABSOLUTE COUNT 0.11 K/ L 0.04-0.54 (BEAKER) (test code = 416) BASOPHILS ABSOLUTE COUNT (BEAKER) 0.05 K/ L 0.01-0.08 (test code = 417) IMMATURE GRANULOCYTES-RELATIVE 1 % 0-1 PERCENT (BEAKER) (test code = 2801) PROTHROMBIN [id number] 05:04:30 Test Item Value Reference Range Interpretation Comments PROTIME (BEAKER) 16.7 seconds 11.9-14.2 H (test code = 759) INR (BEAKER) (test 1.37 See_Comment [Automat ed message] code = 370) The system [employer] generated this result transmitted ref erence range: <=5.90. The reference range was not used to int erpret this result as normal/abnormal . RECOMMENDED COUMADIN/WARFARIN INR THERAPY RANGESSTANDARD DOSE: 2.0 - 3.0 Includes: PROPHYLAXIS for venous thrombosis, systemic embolization; TREATMENT for venous thrombosis and/or pulmonary embolus.HIGH RISK: Target INR is 2.5-3.5 for patients with mechanical heart valves.URINALYSIS [id number] 17:49:35 Test Item Value Reference Range Interpretation Comments RBC UA (BEAKER) (test code = 519) 149 /HPF WBC UA (BEAKER) (test code = 520) 72 /HPF BACTERIA (BEAKER) (test code = Occasional 517) MUCUS (BEAKER) (test code = 1574) Few CRYSTALS, URINE (BEAKER) (test None Seen code = 1521) Mold Shaker ID - techURINALYSIS WITH MICROSCOPIC IF [id number] 17:22:23 Test Item Value Reference Range Interpretation Comments COLOR (BEAKER) (test code = 470) Yellow CLARITY (BEAKER) (test code = 469) Hazy SPECIFIC GRAVITY UA (BEAKER) (test 1.014 1.001-1.035 code = 468) PH UA (BEAKER) (test code = 467) 6.0 5.0-8.0 PROTEIN UA (BEAKER) (test code = 200 mg/dL Negative A 464) GLUCOSE UA (BEAKER) (test code = Negative Negative 365) KETONES UA (BEAKER) (test code = Negative Negative 371) BILIRUBIN UA (BEAKER) (test code = Negative Negative 462) BLOOD UA (BEAKER) (test code = 461) Large Negative A NITRITE UA (BEAKER) (test code = Negative Negative 465) LEUKOCYTE ESTERASE UA (BEAKER) Moderate Negative A (test code = 466) UROBILINOGEN UA (BEAKER) (test code 0.2 mg/dL 0.2-1.0 = 463) SOURCE(BEAKER) (test code = 9811) Mold Shaker ID - [auto]HEPATIC FUNCTION [id number] 09:19:11 Test Item Value Reference Range Interpretation Comments TOTAL PROTEIN (BEAKER) (test code = 6.5 gm/dL 6.0-8.3 770) ALBUMIN (BEAKER) (test code = 1145) 3.8 g/dL 3.5-5.0 BILIRUBIN TOTAL (BEAKER) (test code 1.5 mg/dL 0.2-1.2 H = 377) BILIRUBIN DIRECT (BEAKER) (test 0.5 mg/dL 0.1-0.5 code = 706) ALKALINE PHOSPHATASE (BEAKER) (test 60 U/L 40-150 code = 346) AST (SGOT) (BEAKER) (test code = 17 U/L 5-34 353) ALT (SGPT) (BEAKER) (test code = 12 U/L 6-55 347) Mold Shaker ID - PIAYA LBASIC METABOLIC [id number] 09:19:10 Test Item Value Reference Range Interpretation Comments SODIUM (BEAKER) 140 meq/L 136-145 (test code = 381) POTASSIUM (BEAKER) 3.9 meq/L 3.5-5.1 (test code = 379) CHLORIDE (BEAKER) 105 meq/L 98-107 (test code = 382) CO2 (BEAKER) (test 28 meq/L 22-29 code = 355) BLOOD UREA NITROGEN 18 mg/dL 7-21 (BEAKER) (test code = 354) CREATININE (BEAKER) 1.12 mg/dL 0.57-1.25 (test code = 358) GLUCOSE RANDOM 142 mg/dL 70-105 H (BEAKER) (test code = 652) CALCIUM (BEAKER) 8.9 mg/dL 8.4-10.2 (test code = 697) EGFR (BEAKER) (test 62 mL/min/1.73 ESTIMA DENA GFR IS code = 1092) sq m NOT ACCURATE CREATININE CLEARANCE IN PREDICTING GLOMERULAR FILTRATION RATE . ESTIMATED GFR I S NOT APPLICABLE FOR DIALYSIS PATIEN TS. Mold Shaker ID - PIAYA LPROTHROMBIN [id number] 09:10:27 Test Item Value Reference Range Interpretation Comments PROTIME (BEAKER) 22.4 seconds 11.9-14.2 H (test code = 759) INR (BEAKER) (test 1.99 See_Comment [Automat ed message] code = 370) The system [employer] generated this result transmitted ref erence range: <=5.90. The reference range was not used to int erpret this result as normal/abnormal . RECOMMENDED COUMADIN/WARFARIN INR THERAPY RANGESSTANDARD DOSE: 2.0 - 3.0 Includes: PROPHYLAXIS for venous thrombosis, systemic embolization; TREATMENT for venous thrombosis and/or pulmonary embolus.HIGH RISK: Target INR is 2.5-3.5 for patients with mechanical heart valves.CBC W/PLT COUNT & AUTO [id number] 08:59:10 Test Item Value Reference Range Interpretation Comments WHITE BLOOD CELL COUNT (BEAKER) 21.8 K/ L 3.5-10.5 H (test code = 775) RED BLOOD CELL COUNT (BEAKER) 4.50 M/ L 4.63-6.08 L (test code = 761) HEMOGLOBIN (BEAKER) (test code = 13.8 GM/DL 13.7-17.5 410) HEMATOCRIT (BEAKER) (test code = 41.6 % 40.1-51.0 411) MEAN CORPUSCULAR VOLUME (BEAKER) 92.4 fL 79.0-92.2 H (test code = 753) MEAN CORPUSCULAR HEMOGLOBIN 30.7 pg 25.7-32.2 (BEAKER) (test code = 751) MEAN CORPUSCULAR HEMOGLOBIN CONC 33.2 GM/DL 32.3-36.5 (BEAKER) (test code = 752) RED CELL DISTRIBUTION WIDTH 13.0 % 11.6-14.4 (BEAKER) (test code = 412) PLATELET COUNT (BEAKER) (test 142 K/CU MM 150-450 L code = 756) MEAN PLATELET VOLUME (BEAKER) 10.6 fL 9.4-12.4 (test code = 754) NUCLEATED RED BLOOD CELLS 0 /100 WBC 0-0 (BEAKER) (test code = 413) NEUTROPHILS RELATIVE PERCENT 91 % (BEAKER) (test code = 429) LYMPHOCYTES RELATIVE PERCENT 4 % (BEAKER) (test code = 430) MONOCYTES RELATIVE PERCENT 5 % (BEAKER) (test code = 431) EOSINOPHILS RELATIVE PERCENT 0 % (BEAKER) (test code = 432) BASOPHILS RELATIVE PERCENT 0 % (BEAKER) (test code = 437) NEUTROPHILS ABSOLUTE COUNT 19.77 K/ L 1.78-5.38 H (BEAKER) (test code = 670) LYMPHOCYTES ABSOLUTE COUNT 0.86 K/ L 1.32-3.57 L (BEAKER) (test code = 414) MONOCYTES ABSOLUTE COUNT (BEAKER) 1.00 K/ L 0.30-0.82 H (test code = 415) EOSINOPHILS ABSOLUTE COUNT 0.00 K/ L 0.04-0.54 L (BEAKER) (test code = 416) BASOPHILS ABSOLUTE COUNT (BEAKER) 0.04 K/ L 0.01-0.08 (test code = 417) IMMATURE GRANULOCYTES-RELATIVE 1 % 0-1 PERCENT (BEAKER) (test code = 2801) BLOOD [id number] 10:00:00 Test Item Value Reference Range Interpretation Comments CULTURE (BEAKER) (test No growth in 5 days code = 1095) BLOOD [id number] 10:00:00 Test Item Value Reference Range Interpretation Comments CULTURE (BEAKER) (test No growth in 5 days code = 1095) CT, CTA, [id number] 09:40:00Unlisted Reason for Exam - Click Yes and Enter Reason Below->YesUnlisted 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 East. Additional nonvascular findings include: Diffuse bronchial wall thickening with trace mucus in the trachea, suggestive of bronchitis. Patchy groundglass opacities in both lungs, suggestiveof pneumonia. Signed: Gualberto Levy MDReport Verified Date/Time: [...] 3-D specialist for optimal visualisation of the thorac ic aorta and its proximal branches. Please refer to the contrast sheet scanned in the AutoAlert system for the amount and route of [...] be well positioned. It is relatively well seenand 60% reconstruction. In the cine imaging, the [...] at the mid ascending aorta; 3.3 cm atthe distal ascending aorta; 2.8 cm at the mid transverse arch; 2.9 cm at the proximal descending aorta; 3.1 cm at the mid descending aorta; 2..6 cm at the diaphragmatic hiatus. NON-VASCULAR:- The thyroi d gland is unremarkable. The chest wall mediastinum [...] right. Associated atelectatic changes/consolidation is present. Mild nonspecificpatchy groundglass opacities are seen especially in the left upper lobe, for example image 58 of uncertain significance. Scattered groundglass opacities also identified in the lower lung pedersen. An addendum will be dictated regarding the pulmonary findings, if needed. Limited images of the upper abdomen reveals no gross abnormality. No acute bony pathology is seen. Some degenerative changes is noted.Surgical hardware is identified in the anterior aspect [...] bibasal pleural effusions identified, left greater than ri ght. Pleural calcification identified suggesting prior asbestos exposure. An addendum dictated thereafter, regarding the pulmonary findings, if needed. 5. Other findings as described above. 6. An addendum will be dictated regarding the non-vascular findings by the Financial Analyst Accountant Radiologist. Major vascular findings were discussed with Dr. Valladares at the time of dictation. Signed: Edwardo East Verified Date/Time: 01/02/2020 16:43:17 Reading Location: [facility] P027 CT Reading Room COMPREHENSIVE METABOLIC [id number] 07:24:00 Test Item Value Reference Range Interpretation [...] S NOT APPLICABLE FOR DIALYSIS PATIEN TS. Mold Shaker ID - QUINCY [id number] 07:24:00 Test Item Value Reference Range Interpretation Comments MAGNESIUM (BEAKER) (test code = 1.8 mg/dL 1.6-2.6 627) Mold Shaker ID - QUINCY [id number] 07:24:00 Test Item Value Reference Range Interpretation Comments PHOSPHORUS (BEAKER) (test code = 2.7 mg/dL 2.3-4.7 604) Mold Shaker ID - QUINCY FPROTHROMBIN TIME/[id number] 07:00:00 Test Item Value Reference Range Interpretation [...] is 2.5-3.5 for patients wiht mechanical heart valves.While on warfarin.CBC W/PLT COUNT & AUTO [id number] 06:56:00 Test Item Value Reference Range Interpretation [...] PERCENT (BEAKER) (test code = 2801) PROTHROMBIN [id number] 18:01:00 Test Item Value Reference Range Interpretation [...] is 2.5-3.5 for patients wiht mechanical heart valves.[id number] 06:38:00 Test Item Value Reference Range Interpretation Comments MAGNESIUM (BEAKER) (test code = 1.8 mg/dL 1.6-2.6 627) Mold Shaker ID - EDASICOMPREHENSIVE METABOLIC [id number] 06:38:00 Test Item Value Reference Range Interpretation [...] S NOT APPLICABLE FOR DIALYSIS PATIEN TS. Mold Shaker ID - [id number] 06:38:00 Test Item Value Reference Range Interpretation Comments PHOSPHORUS (BEAKER) (test code = 2.7 mg/dL 2.3-4.7 604) Mold Shaker ID - EDASICBC W/PLT COUNT & AUTO [id number] 06:03:00 Test Item Value Reference Range Interpretation [...] PERCENT (BEAKER) (test code = 2801) MRSA [id number] 15:50:00 Test Item Value Reference Range Interpretation Comments CULTURE (BEAKER) (test code No MRSA isolated = 1095) FL, ESOPH, SWALLOW FUNCTION, WITH CINE OR [id number] 15:38:00D/c NGT prior to the study and then attemptReason for exam:->dysphagea [facility] : 1935 Sex: MFINAL REPORT Modified barium swallow exam with speech pathology service CLINICALHISTORY: dysphagia IMPRESSION: Please see the speech pathology service report for details. Barium contrast of multiple consistencies is given to the patient to swallow. Fluoroscopic observation is performed during swallowing. Fluoro time: 120 minutes Number of images: 1 Signed: Scott Wilkinson Verified Date/Time: 01/01/2020 15:38:45 Reading Location: [address] Consult Reading Room [id number] 06:21:00 Test Item Value Reference Range Interpretation Comments MAGNESIUM (BEAKER) (test code = 1.9 mg/dL 1.6-2.6 627) Mold Shaker ID - edasiCOMPREHENSIVE METABOLIC [id number] 06:21:00 Test Item Value Reference Range Interpretation [...] S NOT APPLICABLE FOR DIALYSIS PATIEN TS. Mold Shaker ID - [id number] 06:21:00 Test Item Value Reference Range Interpretation Comments PHOSPHORUS (BEAKER) (test code = 1.8 mg/dL 2.3-4.7 L 604) Mold Shaker ID - edasiCBC W/PLT COUNT & AUTO [id number] 05:52:00 Test Item Value Reference Range Interpretation [...] PERCENT (BEAKER) (test code = 2801) POCT-GLUCOSE [id number] 19:08:00 Test Item Value Reference Range Interpretation Comments POC-GLUCOSE METER 73 mg/dL 70-110 : TESTED A T [facility] 6720 (BEAKER) (test code = [facility] [place], 1538) [address]: Mold Shaker/Techni cory ID = [id number] for ALEXANDRO EPSTEIN POCT-GLUCOSE [id number] 14:49:00 Test Item Value Reference Range Interpretation Comments POC-GLUCOSE METER 74 mg/dL 70-110 : TESTED A T [facility] 6720 (BEAKER) (test code = [place], 1538) [address]: Mold Shaker/Techni cory ID = [id number] for [facility] TienGENGISSELLE MRSA [id number] 12:26:00 Test Item Value Reference Range Interpretation Comments CULTURE (BEAKER) (test code No MRSA isolated = 1095) SPUTUM CULTURE + GRAM [id number] 12:26:00 Test Item Value Reference Range Interpretation Comments CULTURE (BEAKER) 1+ Normal respiratory (test code = 1095) regina present GRAM STAIN RESULT 4+ WBCs (BEAKER) (test code = 1123) GRAM STAIN RESULT 0-5 epithelial cells (BEAKER) (test code = 73539) GRAM STAIN RESULT <1+ gram positive cocci (BEAKER) (test code = in pairs and clusters 46662) COMPREHENSIVE METABOLIC [id number] 06:48:00 Test Item Value Reference Range Interpretation [...] 347) EGFR (BEAKER) (test 88 mL/min/1.73 ESTIMA DENA GFR IS code = 1092) sq m NOT ACCURATE CREATININE CLEARANCE IN PREDICTING GLOMERULAR FILTRATION RATE . ESTIMATED GFR I S NOT APPLICABLE FOR DIALYSIS PATIEN TS. Mold Shaker ID - MERON [id number] 06:48:00 Test Item Value Reference Range Interpretation Comments MAGNESIUM (BEAKER) (test code = 2.0 mg/dL 1.6-2.6 627) Mold Shaker ID - MERON [id number] 06:48:00 Test Item Value Reference Range Interpretation Comments PHOSPHORUS (BEAKER) (test code = 2.0 mg/dL 2.3-4.7 L 604) Mold Shaker ID - MERON JASEN/S, RENAL, [id number] 06:39:00Reason for exam:- >worsening kidney function/ metabolic acidosis [facility] : 1935 Sex: MFINAL REPORT Renal ultrasound dated 12/31/2019 CLINICAL HISTORY: Worsening renalfunction COMPARISON: None Comment: Real-time transabdominal renal ultrasound was performed. Right kidney measures 11.8 x 5.0 x 6.8 cm. Left kidney measures 11.7 x 5.1 x 4.3 cm. Right renal cortex measures 1.1 cm. Left renal cortex measures 1.3 cm. Renal parenchymal echogenicity: Normal No hydronephrosi s, nephrolithiasis or solid mass is seen. 3.2 x 2.7 x 2.6 cm exophytic cyst arising from the midpolethe left kidney with a thin internal septation. Doppler ultrasound demonstrates a patent main renal artery and vein bilaterally. The bladder is decompressed. Impression: Left renal cysts. Otherwise unremarkable ultrasound appearance of the kidneys. Signed: Gerry Sinha MDReport Verified Date/Time: 12/31/2019 06:39:51 CBC W/PLT COUNT & AUTO [id number] 06:11:00 Test Item Value Reference Range Interpretation [...] = 2801) RAD, CHEST, 1 VIEW, NON [id number] 01:43:00Reason for exam:->respiratory failureShould this be performed at the bedside?->Yes [facility] : 1935 Sex: MFINAL REPORT CLINICAL INDICATION: Support lines. Comparison: 12/30/2019 The patient is rotated to the right. The cardiomediastinal contours are stable. The lung volumes are stable after extubation. Central pulmonary vascular prominence of and bilateral parenchymal and pleural opacities are unchanged. There is no pneumothorax. An enteric tube remains in place. Signed: Santiago Sinha Verified Date/Time: 12/31/2019 01:43:07 CBC W/PLT COUNT & AUTO [id number] 18:42:00 Test Item Value Reference Range Interpretation [...] % 0-1 PERCENT (BEAKER) (test code = 2809) VANCOMYCIN LEVEL, [id number] 09:49:00 Test Item Value Reference Range Interpretation Comments VANCOMYCIN TROUGH (BEAKER) (test 9.6 ug/mL 10.0-20.0 L code = 522) Mold Shaker ID - SUHA CCOMPREHENSIVE METABOLIC [id number] 05:31:00 Test Item Value Reference Range Interpretation [...] S NOT APPLICABLE FOR DIALYSIS PATIEN TS. Mold Shaker ID - BRANDONENRIKE [id number] 05:13:00 Test Item Value Reference Range Interpretation Comments MAGNESIUM (BEAKER) (test code = 1.6 mg/dL 1.6-2.6 627) Mold Shaker ID - MERON [id number] 05:13:00 Test Item Value Reference Range Interpretation Comments PHOSPHORUS (BEAKER) (test code = 2.6 mg/dL 2.3-4.7 604) Mold Shaker ID - PIAYA LCBC W/PLT COUNT & AUTO [id number] 04:43:00 Test Item Value Reference Range Interpretation Comments WHITE BLOOD CELL COUNT 19.3 K/ L 3.5-10.5 H (BEAKER) (test code = 775) RED BLOOD CELL COUNT 3.87 M/ L 4.63-6.08 L (BEAKER) (test code = 761) HEMOGLOBIN (BEAKER) 11.7 GM/DL 13.7-17.5 L Discorda nt HGB (test code = 410) results co mpared to previous result s; clinical correl ation required.[id number] HEMATOCRIT (BEAKER) 36.4 % 40.1-51.0 L (test [...] (BEAKER) (test code = 2801) BLOOD GAS, [id number] 04:36:00 Test Item Value Reference Range Interpretation [...] (BEAKER) (test code = 1819) 50.0 CORTISOL,60 [id number] 03:53:00 Test Item Value Reference Range Interpretation [...] cortex of the adrenal glands to release co rtisol. Cortisol is a primary hormone, which aids the body's metabolism of fats, carbohydrates, and protein as well as sodium and potassium regulation.ACTH Stimulation Test: Exogenous administration ofbiologically active ACTH stimulates the secretion of cortisol [...] increase in cortisol after stimulation by ACTH isnormal. Post-stimulation cortisol concentration should be greater than 20 mcg/dL or the rate of risefrom baseline cortisol should be greater than or equal to 9 mcg/dL.Patients with sepsis or septic shock: According to a study by Julia et al (ATUL 2000,283(8):1038-45), the ACTH Stimulation Test provides important prognostic information. This study defined 3 groups of patients with sepsis or septic shock: 1. Good Survival: Low basal cortisol (<or=34 mcg/dL) and high ACTH response (>9mcg/dL) 2.Intermediate Survival: Low basal cortisol (<34 mcg/dL) and low response to ACTH (<or=9 mcg/dL)OR High basal cortisol (>34 mcg/dL) or high [...] Pharmacy Policy and Procedure Section on The Source.Mold Shaker ID - PIAYA LCORTISOL,30 MIN 2019-12-30 03:52:00 [...] cortex of the adrenal glands to release co rtisol. Cortisol is a primary hormone, which aids the body's metabolism of fats, carbohydrates, and protein as well as sodium and potassium regulation.ACTH Stimulation Test: Exogenous administration ofbiologically active ACTH stimulates the secretion of cortisol [...] increase in cortisol after stimulation by ACTH isnormal. Post-stimulation cortisol concentration should be greater than 20 mcg/dL or the rate of risefrom baseline cortisol should be greater than or equal to 9 mcg/dL.Patients with sepsis or septic shock: According to a study by Julia et al (ATUL 2000,283(8):1038-45), the ACTH Stimulation Test provides important prognostic information. This study defined 3 groups of patients with sepsis or septic shock: 1. Good Survival: Low basal cortisol (<or=34 mcg/dL) and high ACTH response (>9mcg/dL) 2.Intermediate Survival: Low basal cortisol (<34 mcg/dL) and low response to ACTH (<or=9 mcg/dL)OR High basal cortisol (>34 mcg/dL) or high [...] Pharmacy Policy and Procedure Section on The Source.Mold Shaker ID - PIAYA LRAD, CHEST, 1 VIEW, NON [id number] 03:30:00Reason for exam:->respiratory failureShould this be performed at the bedside?->Yes [facility] : 1935 Sex: [...] pleural effusion. No pneumothorax.Heart and mediastinum: Stable contours.Stable surgical changes.Additional findings: None. Signed: Anastasiia Aponte MDReport Verified Date/Time: 12/30/2019 03:30:42 CORTISOL,[id number] 01:31:00 Test Item Value Reference Range Interpretation Comments CORTISOL, BASELINE (BEAKER) (test 14.1 ug/dL code = 1803) ACTH STIMULATION TEST INTERPRETATION GUIDELINES(Synonyms: Cortrosyn Test, Cosyntropin or Corticotropin Stimulation Test)Adenocorticotropic hormone (ACTH)is a tropic hormone, made in the pituitary gland, which travels trhough the bloodstream and stimulates the cortex of the adrenal glands to release co rtisol. Cortisol is a primary hormone, which aids the body's metabolism of fats, carbohydrates, and protein as well as sodium and potassium regulation.ACTH Stimulation Test: Exogenous administration ofbiologically active ACTH stimulates the secretion of cortisol [...] increase in cortisol after stimulation by ACTH isnormal. Post-stimulation cortisol concentration should be greater than 20 mcg/dL or the rate of risefrom baseline cortisol should be greater than or equal to 9 mcg/dL.Patients with sepsis or septic shock: According to a study by Julia et al (ATUL 2000,283(8):1038-45), the ACTH Stimulation Test provides important prognostic information. This study defined 3 groups of patients with sepsis or septic shock: 1. Good Survival: Low basal cortisol (<or=34 mcg/dL) and high ACTH response (>9mcg/dL) 2.Intermediate Survival: Low basal cortisol (<34 mcg/dL) and low response to ACTH (<or=9 mcg/dL)OR High basal cortisol (>34 mcg/dL) or high [...] Pharmacy Policy and Procedure Section on The Source.Mold Shaker ID - PIAYA LCREATININE, RANDOM [id number] 19:52:00 Test Item Value Reference Range Interpretation Comments CREATININE URINE (BEAKER) (test 310.8 mg/dL code = 375) Reference Range: No NormalsOperator ID - DBSODIUM, RANDOM [id number] 19:52:00 Test Item Value Reference Range Interpretation Comments SODIUM URINE (BEAKER) (test code = < meq/L 243) Reference Range: No NormalsOperator ID - DBPOCT-GLUCOSE [id number] 18:14:00 Test Item Value Reference Range Interpretation Comments POC-GLUCOSE METER 105 mg/dL 70-110 : TESTED A T [facility] (BEAKER) (test code = [place], 1538) [address]: Mold Shaker/Techni cory ID = [id number] for Laura Bauman BASIC METABOLIC [id number] 16:24:00 Test Item Value Reference Range Interpretation [...] S NOT APPLICABLE FOR DIALYSIS PATIEN TS. Mold Shaker ID - [id number] 16:23:00 Test Item Value Reference Range Interpretation Comments MAGNESIUM (BEAKER) (test code = 1.6 mg/dL 1.6-2.6 627) Mold Shaker ID - DBBLOOD GAS, [id number] 16:09:00 Test Item Value Reference Range Interpretation [...] = 1819) 50.0 RAD, ABDOMEN/KUB, 1 VIEW [id number] 12:40:00Reason for exam:->NGT placement [facility]: T[facility]V ST[facility] : 1935 Sex: MFINAL REPORT TECHNIQUE: Frontal view of the abdomen. INDICATION: 84-year-old manafter nasogastric tube placement. COMPARISON: None. IMPRESSION:Nasogastric tube terminates over the expected region of the proximal gastric body. Mildly distended small bowel loops scattered in the abdomen. Ileus or small bowel obstruction cannot be excluded in the correct clinical setting. Degenerative changes of the visualized spine. Calcifications along the diaphragm. Signed: Gualberto Levy MDReport Verified Date/Time: 12/29/2019 12:40:58 Reading Location: [address] Body Reading Room B-TYPE NATRIURETIC FACTOR (BNP)2019-12-29 11:35:00 Test Item Value Reference Range Interpretation Comments B-TYPE NATRIURETIC PEPTIDE (BEAKER) 193 pg/mL 0-100 H (test code = 700) Mold Shaker ID - SUHA CLACTIC ACID, [id number] 11:25:00 Test Item Value Reference Range Interpretation Comments LACTATE BLOOD ARTERIAL (2) 3.3 mmol/L 0.5-2.2 H (BEAKER) (test code = 2874) Mold Shaker ID - SUHA CLACTIC ACID, [id number] 07:06:00 Test Item Value Reference Range Interpretation Comments LACTATE BLOOD VENOUS 3.49 mmol/L 0.50-2.20 H Specime n slightly (2) (BEAKER) (test hemolyzed code = 2872) Mold Shaker ID - EDASIURINALYSIS W/ REFLEX URINE [id number] 06:56:00 Test Item Value Reference Range Interpretation [...] = Many 1585) SOURCE(BEAKER) (test code = 0395) Mold Shaker ID - [auto]Mold Shaker ID - techPROTHROMBIN [id number] 06:54:00 Test Item Value Reference Range Interpretation [...] is 2.5-3.5 for patients wiht mechanical heart valves.[id number] 06:54:00 Test Item Value Reference Range Interpretation Comments PARTIAL THROMBOPLASTIN TIME 30.3 seconds 22.5-36.0 (DAVE) (test code = 760) RAD, CHEST, 1 VIEW, NON [id number] 06:51:00Reason for exam:->ETT placementShould this be performed at the bedside?->Yes [facility] : 1935 Sex: MFINAL REPORT CLINICAL INDICATION: Endotracheal tube positioning Comparison: 12/29/2019 The tip of an endotracheal tube is above the kira at the level of the inferior clavicular heads. The cardiomediastinal contours are stable. Central pulmonary vascular congestion and bilateral parenchymal and pleural opacities are unchanged. There is no pneumothorax. Signed: Gerry Sinha Verified Date/Time: 12/29/2019 06:51:17 TSH/FREE T4 IF [id number] 06:47:00 Test Item Value Reference Range Interpretation Comments THYROID STIMULATING HORMONE 1.830 uIU/mL 0.350-4.940 (DAVE) (test code = 772) Mold Shaker ID - XIMENAASIZHANG [id number] 06:40:00 Test Item Value Reference Range Interpretation [...] failure, acidosis, acute neurological disease, and persistent tachyarrhythmia.Mold Shaker ID - SENGMario [id number] 06:36:00 Test Item Value Reference Range Interpretation [...] failure, acidosis, acute neurological disease, and persistent tachyarrhythmia.Mold Shaker ID - EDASICBC W/PLT COUNT & AUTO [id number] 04:56:00 Test Item Value Reference Range Interpretation [...] PERCENT (BEAKER) (test code = 2801) TROPONIN [id number] 04:43:00 Test Item Value Reference Range Interpretation [...] failure, acidosis, acute neurological disease, and persistent tachyarrhythmia.Mold Shaker ID - EDASICOMPREHENSIVE METABOLIC [id number] 04:37:00 Test Item Value Reference Range Interpretation [...] S NOT APPLICABLE FOR DIALYSIS PATIEN TS. Mold Shaker ID - [id number] 04:37:00 Test Item Value Reference Range Interpretation Comments MAGNESIUM (BEAKER) (test code = 1.7 mg/dL 1.6-2.6 627) Mold Shaker ID - [id number] 04:37:00 Test Item Value Reference Range Interpretation Comments PHOSPHORUS (BEAKER) (test code = 3.7 mg/dL 2.3-4.7 604) Mold Shaker ID - EDASIRAD, CHEST, 1 VIEW, NON [id number] 04:27:00Reason for exam:->ETT positionShould this be performed at the bedside?->Yes [facility] : 1935 Sex: MFINAL REPORT CLINICAL INDICATION: Support lines. Comparison: 12/28/2019 The tip of an endotracheal tube is in good position above the kira at the level of the midclavicular heads.The cardiomediastinal contours are stable. Bilateral parenchymal and pleural opacities are unchanged. There is no pneumothorax. Signed: Gerry Sinha MDReport Verified Date/Time: 12/29/2019 04:27:00 -COV2/RT-PCR ([facility])2019-12-29 04:15:00 Test Item Value Reference Range Interpretation Comments SARS-COV2/RT-PCR (test Negative Not Detected, Negative, code = 9198891) See external report for linked test SARS-COV-2 PERFORMING LAB [facility] (test code = 5113896) Negative result for this test determines that [...] justifying the authorization of the emergency use ofin vitro diagnostic tests for detection and/or diagnosis of COVID-19 is terminated under Section 564(b)(2) of the Act or the EUA is revoked under Section 564(g) of the Act.Fact Sheet for Healthcare Prov iders:https://www.Solairedirect/sites/default/files/product/documents/Fact_Sheet_HC _Xcbqzxvup_Imyx_MWRV-CsH-7.pdfFact Sheet for Healthcare Patients:https://www.[employer]ola[employer]irect/sites/default/files/product/docume nts/Ihre_Msrve_Vzajkndv_Drzq_PFXN-OoM-7.pdfPerforming Laboratory:[address], [place] [address]IQMN-OVRVI GASES, [id number] 04:14:00 Test Item Value Reference Range Interpretation [...] EXCESS, -1.0 meq/L -2.0-3.0 : TESTED AT [place] [id number] ARTERIAL-POC [facility], (BEAKER) (test code 88593: = 1841) Mold Shaker/Techni cory ID = [id number] for SHAHZAD HERRERADONNELL [id number] 04:14:00 Test Item Value Reference Range Interpretation Comments POC-SODIUM ([facility]) 141 meq/L 135-148 : TESTED AT [place] [address] (test code = 1542) [place] [facility] [place] [place], [address]: Mold Shaker/Techni cory ID = [id number] for DONNELL GERMAIN [id number] 04:14:00 Test Item Value Reference Range Interpretation Comments POC-POTASSIUM 3.6 meq/L 3.6-5.5 : TESTED AT [place] [address] ([facility]) (test code [facility], = 1540) [address]: Mold Shaker/Techni cory ID = [id number] for DONNELL GERMAIN [id number] 04:14:00 Test Item Value Reference Range Interpretation Comments POC-HEMOGLOBIN 16.3 g/dL 13.0-16.8 : TESTED AT [place] [address] ([facility]) (test code [facility], = 1856) [address]: Mold Shaker/Techni cory ID = [id number] for DONNELL GERMAIN [id number] 04:14:00 Test Item Value Reference Range Interpretation Comments POC-HEMATOCRIT 48 % 40-50 : Mold Shaker/Te chnician ID = ([facility]) (test code = 060958 for DONNELL GERMAIN 1857) POCT-CALCIUM [id number] 04:14:00 Test Item Value Reference Range Interpretation Comments POC-CALCIUM IONIZED 1.18 mmol/L 1.12-1.27 : TESTED AT [facility] ([facility]) (test code = [facility] 1536) [place], [address]: Mold Shaker/Techni cory ID = [id number] for DONNELL GERMAIN [id number] 04:14:00 Test Item Value Reference Range Interpretation Comments POC-GLUCOSE ([facility]) 145 mg/dL 70-110 H : TESTE D AT [place] [address] (test code = 1855) [facility], [address]: Mold Shaker/Techni cory ID = [id number] for DONNELL GERMAIN CBC W/PLT COUNT & AUTO [id number] 23:29:00 Test Item Value Reference Range Interpretation Comments WHITE BLOOD CELL COUNT ([facility]) 13.1 K/ L 3.5-10.5 H [...] (BEAKER) (test code = 2801) BASIC METABOLIC [id number] 23:07:00 Test Item Value Reference Range Interpretation [...] S NOT APPLICABLE FOR DIALYSIS PATIEN TS. Mold Shaker ID - DBRAD, CHEST, 1 VIEW, NON [id number] 22:49:00Reason for exam:->pre-anesthesiaShould this be performed at the bedside?->Yes [facility] 1935 Sex: MFINAL REPORT TECHNIQUE: Frontal and lateral views of the chest. INDICATION: pre-anesthesia. COMPARISON: CTA from 02/03/2015. FINDINGS: LINES/TUBES: None. LUNGS: The patchy opacity of the left chest are indeterminate but most likely pleural plaque. PLEURA: Bilateral pleural plaques HEART AND MEDIASTINUM: The cardiac silhouette is normal in size. Prior transarterial aortic valve replacement. SOFT TISSUES AND BONES: Prior anterior cervical disc fusion. Prior median sternotomy. IMPRESSION: The bilateral patchy opacities over both hemithoraces are indeterminate but could be pleural plaque en face. Infection is considered less likely. The bilateral calcified pleural plaque could be due to prior asbestos exposure. Signed: Theresa Cotter MDReport Verified Date/Time: 12/28/2019 22:49:33 Reading Location: [address] Transitional Reading Room COMP. METABOLIC PANEL (23933)2019-09-02 11:55:00 Test Item Value Reference Range Interpretation Comments NA (test code = 139 mmol/L 135-145 1313002731) K (test code = 4.1 mmol/L 3.5-5 4323811599) CL (test code = 104 mmol/L 98-108 2616102855) CO2 TOTAL (test code = 29 mmol/L 23-31 3680484813) AGAP (test code = 2-16 2512678580) BUN (test code = 21 mg/dL 7-23 7230191493) GLUCOSE (test code = 99 mg/dL 70-110 3150569767) CREATININE (test code 0.86 mg/dL 0.6-1.25 = 4918785380) TOTAL BILI (test code 0.7 mg/dL 0.1-1.1 = 2071938253) CALCIUM (test code = 9.3 mg/dL 8.6-10.6 1829445288) T PROTEIN (test code = 7.2 g/dL 6.3-8.2 1561754485) ALBUMIN (test code = 4.2 g/dL 3.5-5 3400994461) ALK PHOS (test code = 75 U/L 34-122 0195917574) ALTv (test code = 28 U/L 5-50 1742-6) AST(SGOT) (test code = 33 U/L 13-40 5849572997) eGFR Calculation mL/min/1.73m2 (Non-) (test code = 5205611013) eGFR Calculation mL/min/1.73m2 () (test code = 3586568369) JETT (test code = JETT) Association of [...] or urine or abnormalities in imaging tests). [facility] 11:53:00 Test Item Value Reference Range Interpretation Comments APPEARANCE (test code = Clear Clear 9449941968) COLOR (test code = Yellow Yellow 3191357903) PH (test code = 4.8-8.0 0815236310) SP GRAVITY (test code = 1.003-1.030 7760476674) GLU U QUAL (test code = Normal Normal 5256743657) BLOOD (test code = 1+ Negative A 4629748858) KETONES (test code = Negative Negative 8494562087) PROTEIN (test code = Negative Negative 2887-8) UROBILIN (test code = Normal Normal 1888915517) BILIRUBIN (test code = Negative Negative 4549983345) NITRITE (test code = Negative Negative 3050885835) LEUK ROLAN (test code = 75/uL Negative A 4769954667) RBC/HPF (test code = See_Comment H [Autom ated message] 4108721750) The system [employer] generated this result transmitted ref erence range: 0 - 3 HP F. The reference range was not used to int erpret this result as normal/abnormal . WBC/HPF (test code = See_Comment H [Autom ated message] 3323011050) The system [employer] generated this result transmitted ref erence range: 0 - 5 HP F. The reference range was not used to int erpret this result as normal/abnormal . BACTERIA (test code = Few Negative A 0302699746) MUCOUS (test code = Slight Negative LPF A 2746795249) SQ EPITH (test code = <1 HPF 0290705084) TRANS EPI (test code = <1 See_Comment [Aut omated message] 6816070553) The system [employer] generated this result transmitted ref erence range: <=1 HPF. The reference range was not used to int erpret this result as normal/abnormal . NOE EPITH (test code = <1 See_Comment [Aut omated message] 1817469060) The system [employer] generated this result transmitted ref erence range: <=1 HPF. The reference range was not used to int erpret this result as normal/abnormal . Lab Interpretation (test Abnormal code = 10403-9) [facility] WITH [id number] 11:52:00 Test Item Value Reference Range Interpretation Comments WBC (test code = See_Comment [Automated message] 6690-2) The system [employer] generated this result transmitted ref erence range: 4.20 - 1 0.70 10*3/?L. The re ference range was not u sed to interpret this result as normal/abnor mal. RBC (test code = See_Comment [Automated message] 789-8) The system [employer] generated this result transmitted ref erence range: [...] RDW-SD (test code 41.1 fL 38.5-51.6 = 84451-4) RDW-CV (test code 12.1 % 12.1-15.4 = 788-0) PLT (test code = See_Comment [Automated message] 777-3) The system [employer] h generated this result transmitted ref erence range: 150 - 32 8 10*3/?L. The re ference range was not u sed to interpret this result as normal/abnor mal. MPV (test code = 10.8 fL 9.8-13 23685-1) NRBC/100 WBC (test See_Comment [Automat ed message] code = 4843353648) The syste m which generated this result transmitted ref erence range: 0.0 - 10 .0 /100 WBCs. The refer ence range was not u sed to interpret this result as normal/abnor mal. NRBC x10^3 (test <0.01 See_Comment [Automated message] code = 6659546549) The syste m which generated this result transmitted ref erence range: 10*3/?L. The reference range was not used to interpr et this result as normal/abnormal . GRAN MAT (NEUT) % 44.8 % (test code = 770-8) IMM GRAN % (test 0.40 % code = 9898764486) LYMPH % (test code 42.0 % = 736-9) MONO % (test code 6.9 % = 5905-5) EOS % (test code = 5.0 % 713-8) BASO % (test code 0.9 % = 706-2) GRAN MAT 3.14 10*3/uL 1.99-6.95 x10^3(ANC) (test code = 1957863922) IMM GRAN x10^3 0.03 10*3/uL 0-0.06 (test code = 4546509109) LYMPH x10^3 (test 2.94 10*3/uL 1.09-3.23 code = 731-0) MONO x10^3 (test 0.48 10*3/uL 0.36-1.02 code = 742-7) EOS x10^3 (test 0.35 10*3/uL 0.06-0.53 code = 711-2) BASO x10^3 (test 0.06 10*3/uL 0.01-0.09 code = 704-7) [facility] [id number] 17:34:00 Test Item Value Reference Range Interpretation [...] 3267) Lab Interpretation (test code Normal = 10663-4) General acute hospital URINALYSIS, [id number] 17:34:00 Test Item Value Reference Range Interpretation [...] 3267) Lab Interpretation (test code Normal = 23563-3) General acute hospital URINALYSIS, [id number] 17:09:00 Test Item Value Reference Range Interpretation [...] U APPEAR (test code = clear 3267) General acute hospital URINALYSIS, [id number] 17:09:00 Test Item Value Reference Range Interpretation [...] U APPEAR (test code = clear 3267) [facility]"
--- NOTE | 2021-10-07 14:31 | RAD REPORT ---
EXAM DESCRIPTION: RAD - Hip Right 2 View - 10/07/2021 2:13 pm CLINICAL HISTORY: PAIN COMPARISON: Hip Right 2 View dated 03/17/2015 FINDINGS: AP and frog-leg views of the right hip were obtained. There is no fracture or dislocation. No AVN or focal head abnormality. Minimal acetabular degenerativ e changes are present. Degenerative change along the SI joint also seen as stable. No acute finding o f the right hemipelvis identifiable. IMPRESSION: Negative right hip examination for acute or significant findings.
--- NOTE | 2021-10-07 14:46 | EDPHYS ---
Physician Documentation [facility] Name: Rusty Yarbrough Age: 86 yrs Sex: Male : 1935 Arrival Date: 10/07/2021 Time: 13:35 Bed 9 Private MD: ED Physician Sathish Mckeon HPI: 10/07 14:26 This 86 yrs old Male presents to ER via Ambulatory with complaints of Fall kb Injury. 14:26 Details of fall: The patient fell from an upright position, while standing. Onset: The kb symptoms/episode began/occurred today. Associated injuries: The patient sustained right hip, ecchymosis. Severity of symptoms: At their worst the symptoms were mild, in the emergency department the symptoms are unchanged. The patient has not experienced similar symptoms in the past. The patient has not recently seen a physician. Patient states he fell when trying to get out of bed this morning. Reports bruising to right hip area. Denies any pain. Denies hitting head. Denies LOC. Daughter states patient had his blood drawn by home health on Tuesday revealing a high INR. They were told to stop the Coumadin and home health with repeat the INR on Tuesday. Home health recommended patient be evaluated in the ER after fall due to high INR.. Historical: - Allergies: 13:45 Benadryl; aa5 13:45 Enalapril; aa5 - PMHx: 13:45 "heart valve replacement"; Aortic Stenosis; Ataxia; acute, resolved now; bleeding aa5 ulcers; CAD; Cerebrovascular accident; COPD; dyspnea; fatigue; Hyperlipidemia; Hypertension; Hypertensive disorder; Hypokalemia; melena; Myocardial infarction; syncope; Tachycardia; TIA; Vertigo; - Immunization history:: Adult Immunizations unknown. - Social history:: Smoking status: Patient denies any tobacco usage or history of. ROS: 14:25 Constitutional: Negative for fever, chills, and weight loss. kb 14:25 Skin: Positive for ecchymosis, of the right hip. 14:25 All other systems are negative. Exam: 14:28 Constitutional: This is a well developed, well nourished patient who is awake, alert, kb and in no acute distress. Head/Face: Normocephalic, atraumatic. ENT: Moist Mucous membranes Cardiovascular: Regular rate and rhythm with a normal S1 and S2. No gallops, murmurs, or rubs. No pulse deficits. Respiratory: Respirations even and unlabored. No increased work of breathing. Talking in full sentences Abdomen/GI: Soft, non-tender. No distention MS/ Extremity: Pulses equal, no cyanosis. Neurovascular intact. Full, normal range of motion. Neuro: Awake and alert, GCS 15, oriented to person, place, time, and situation. Moves all extremities. Normal gait. Psych: Awake, alert, with orientation to person, place and time. Behavior, mood, and affect are within normal limits. 14:44 Skin: hematoma to right hip and right knee. kb Vital Signs: 13:44 BP 153 / 71; Pulse 62; Resp 18 S; Temp 97.9(TE); Pulse Ox 97% on R/A; Weight 79.38 kg aa5 (R); Height 5 ft. 11 in. (180.34 cm) (R); 13:44 Body Mass Index 24.41 (79.38 kg, 180.34 cm) aa5 MDM: 13:40 Patient medically screened. kb 14:25 Data reviewed: vital signs, nurses notes. Data interpreted: Pulse oximetry: on room air kb is 97 %. Interpretation: normal. 14:28 ED course: Pt ambulates with steady gait. . kb 14:44 Counseling: I had a detailed discussion with the patient and/or guardian regarding: the kb historical points, exam findings, and any diagnostic results supporting the discharge/admit diagnosis, radiology results, the need for outpatient follow up, a family practitioner, to return to the emergency department if symptoms worsen or persist or if there are any questions or concerns that arise at home. ED course: Return precautions given. Pt states he is ready to go home. . 10/07 13:48 Order name: Hip Right 2 View XRAY; Complete Time: 14:33 kb Administered Medications: No medications were administered Disposition Summary: 10/07/21 14:45 Discharge Ordered Location: Home kb Condition: Stable kb Diagnosis - Fall on same level from slipping, tripping and stumbling without subsequent kb striking against object - Contusion of right hip kb - Contusion of right knee kb Followup: kb - With: Emergency Department - When: As needed - Reason: Worsening of condition Followup: kb - With: Private Physician - When: 2 - 3 days - Reason: Recheck today's complaints, Continuance of care, Re-evaluation by your physician Discharge Instructions: - Discharge Summary Sheet kb - Hematoma, Wjdn-hy-[id number] kb - Contusion, [id number]-pk-[id number] kb Forms: - Medication Reconciliation Form kb - Thank You Letter kb - Antibiotic Education kb - Prescription Opioid Use kb Signatures: Dispatcher [employer] EDClementine London, Karyn Bruner, RN RN aa5
--- NOTE | 2021-10-07 14:46 | ER ---
Nurse's Notes [facility] Name: Rusty Yarbrough Age: 86 yrs Sex: Male : 1935 Arrival Date: 10/07/2021 Time: 13:35 Bed 9 Private MD: Diagnosis: Fall on same level from slipping, tripping and stumbling without subsequent striking against object;Contusion of right hip;Contusion of right knee Presentation: 10/07 13:44 Chief complaint: Pt's daughter states "he fell getting out of bed this morning and hit aa5 his right hip". Pt's daughter also reports home health reported elevated INR. Pt states he did not hit his head, negative LOC. Care prior to arrival: None. Mechanism of Injury: Fall out of bed. Trauma event details: Injury occurred in the [facility], Injury occurred: at home. 13:44 Acuity: GAYLE 3 aa5 13:44 Method Of Arrival: Ambulatory aa5 13:44 Coronavirus screen: At this time, the client does not indicate any symptoms associated aa5 with coronavirus-19. 13:44 Ebola Screen: No symptoms or risks identified at this time. Initial Sepsis Screen: Does aa5 the patient meet any 2 criteria? No. Patient's initial sepsis screen is negative. Does the patient have a suspected source of infection? No. Patient's initial sepsis screen is negative. Risk Assessment: Do you want to hurt yourself or someone else? Patient reports no desire to harm self or others. Onset of symptoms was October 07, 2021. Trauma Activation: Not Applicable Physician: ED Physician; Name: ; Notified At: ; Arrived At: Physician: General Surgeon; Name: ; Notified At: ; Arrived At: Physician: Radiology; Name: ; Notified At: ; Arrived At: Physician: Respiratory; Name: ; Notified At: ; Arrived At: Physician: Lab; Name: ; Notified At: ; Arrived At: Historical: - Allergies: 13:45 Benadryl; aa5 13:45 Enalapril; aa5 - PMHx: 13:45 "heart valve replacement"; Aortic Stenosis; Ataxia; acute, resolved now; bleeding aa5 ulcers; CAD; Cerebrovascular accident; COPD; dyspnea; fatigue; Hyperlipidemia; Hypertension; Hypertensive disorder; Hypokalemia; melena; Myocardial infarction; syncope; Tachycardia; TIA; Vertigo; - Immunization history:: Adult Immunizations unknown. - Social history:: Smoking status: Patient denies any tobacco usage or history of. Screenin:48 Abuse screen: Denies threats or abuse. Nutritional screening: No deficits noted. aa5 Tuberculosis screening: No symptoms or risk factors identified. Fall Risk Fall in past 12 months (25 points). Secondary diagnosis (15 points) CVA, No IV (0 pts). Ambulatory Aid- None/Bed Rest/Nurse Assist (0 pts). Gait- Weak (10 pts.). Mental Status- Oriented to own ability (0 pts). Total Jaramillo Fall Scale indicates High Risk Score (45 or more points). Fall prevention measures have been instituted. Side Rails Up X 2 Placed Close to Nursing Station Family Present and informed to notify staff if the need to leave the bedside. Assessment: 13:48 General: Appears comfortable, Behavior is calm, cooperative. Pain: Complains of pain in aa5 right hip only upon palpation Pain currently is 0 out of 10 on a pain scale. Neuro: Level of Consciousness is awake, alert, obeys commands, Oriented to person, place, time, situation, Moves all extremities. Gait is steady, Speech is normal, Facial symmetry appears normal, Denies headache. Cardiovascular: Heart tones S1 S2 present Rhythm is regular. Respiratory: Airway is patent Respiratory effort is even, unlabored, Respiratory pattern is regular, symmetrical. GI: Abdomen is round non-distended, Bowel sounds present X 4 quads. : No signs and/or symptoms were reported regarding the genitourinary system. EENT: No signs and/or symptoms were reported regarding the EENT system. Derm: Skin is pink, warm \\T\\ dry. Bruising that is dark purple, on right hip and right knee. Musculoskeletal: Reports pain in right hip. 15:20 Reassessment: Patient is alert, oriented x 3, equal unlabored respirations, skin aa5 warm/dry/pink. Vital Signs: 13:44 BP 153 / 71; Pulse 62; Resp 18 S; Temp 97.9(TE); Pulse Ox 97% on R/A; Weight 79.38 kg aa5 (R); Height 5 ft. 11 in. (180.34 cm) (R); 13:44 Body Mass Index 24.41 (79.38 kg, 180.34 cm) aa5 ED Course: 13:35 Patient arrived in ED. mr 13:40 Clementine Ruggiero FNP-C [facility]. kb 13:40 Sathish Mckeon MD is Attending Physician. kb 13:44 Arm band placed on. aa5 13:45 Triage completed. aa5 13:48 Patient has correct armband on for positive identification. Placed in gown. Bed in low aa5 position. Call light in reach. Side rails up X2. Adult w/ patient. 14:15 Hip Right 2 View XRAY In Process Unspecified. EDMS 14:57 Karyn Foley, RN is Primary Nurse. aa5 15:20 No provider procedures requiring assistance completed. Patient did not have IV access aa5 during this emergency room visit. Administered Medications: No medications were administered Medication: 15:20 VIS not applicable for this client. aa5 Outcome: 14:45 Discharge ordered by . kb 15:20 Discharged to home ambulatory, with family. aa5 15:20 Condition: stable 15:20 Discharge instructions given to patient, family, Instructed on discharge instructions, follow up and referral plans. Demonstrated understanding of instructions, follow-up care. 15:23 Patient left the ED. aa5 Signatures: Dispatcher [employer] EDME Clementine Ruggiero FNP-C [employer]-Fredi Bobby Yakelin mr Karyn Foley, RN RN aa5 Corrections: (The following items were deleted from the chart) 13:49 13:44 Chief complaint: Pt's daughter states "he fell getting out of bed this morning aa5 and hit his right hip". Pt's daughter also reports home health reported elevated INR. aa5
[2021-10-07 16:08] VITALS: BP 153/71; TEMP 97.9; O2SAT 97
== END 2021-10-07 15:23 | disposition home or self-care (01) ==
LOC: ER 13:31
DX: S70.01XA Contusion of right hip, initial encounter (principal); S80.01XA Contusion of right knee, initial encounter; W01.0XXA Fall on same level from slipping, tripping and stumbling without subsequent striking against object, initial encounter; I10 Essential (primary) hypertension; I25.2 Old myocardial infarction; Z86.73 Personal history of transient ischemic attack (TIA), and cerebral infarction without residual deficits; Z88.8 Allergy status to other drugs, medicaments and biological substances; Z79.01 Long term (current) use of anticoagulants; Z95.2 Presence of prosthetic heart valve

== ENCOUNTER 2021-12-02 10:25 | Day surgery (SDC) | payer MEDICARE ==
[2021-12-01 11:50] LABS: SARS-CoV-2 Antigen Rapid Res Negative (Negative)
[2021-12-02] MEDS ORDERED: Ringers Lactate 1,000 ML IV ONE (10:53)
[2021-12-02] MEDS ORDERED: propofoL 200 MG/20 ML VIAL IV ONE (11:48)
[2021-12-02] MEDS ORDERED: LIDOCAINE 2% MPF 5 ML VIAL ONE (11:49)
[2021-12-02] MEDS ORDERED: TRIAMCINOLONE ACETON 40 MG/ML VIAL ONE ×2 (12:02→12:03)
[2021-12-02] MEDS ORDERED: LIDOCAINE 1% MPF 30 ML VIAL ONE (12:04)
--- NOTE | 2021-12-02 13:07 | RAD REPORT ---
EXAM DESCRIPTION: RAD - Fluoro Guide Spinal Inj - 12/02/2021 12:59 pm CLINICAL HISTORY: Epidural steroid injection FINDINGS: Three intraoperative fluoroscopic spot images. Fluoroscopy time 0.2 minutes. Procedure performed by Dr. Ritter Needle has been placed into the right aspect of L5-S1. Contrast administered
[2021-12-02 13:27] VITALS: BP 140/76; TEMP 97.7; O2SAT 98
== END 2021-12-02 13:10 | disposition home or self-care (01) ==
LOC: OR 10:25
PROVIDERS: ATTEND Pain Medicine Interventional Pain Medicine
PROC: B01BZZZ Fluoroscopy of Spinal Cord (ICD-10-PCS; 2021-12-02)
PROC: 3E0S33Z Introduction of Anti-inflammatory into Epidural Space, Percutaneous Approach (ICD-10-PCS; principal; 2021-12-02 12:15)
DX: M54.16 Radiculopathy, lumbar region (principal); Z20.822 Contact with and (suspected) exposure to COVID-19
CPT/HCPCS: 36415; 77003; 87811; 62323; J2704; J3301; J2001; J7120

== ENCOUNTER 2022-03-01 14:25 | Emergency (ER) | payer MEDICARE ==
--- OUTSIDE RECORDS SUMMARY | 2022-03-01 14:36 | XMS REPORT | Continuity of Care Document ---
:1935 Author Organization [facility] t Address [address] [place] [place] [address] Care Team Providers Name Role Phone SHAWN PERRY Primary Care Physician Unavailable Shawn Perry Attending Clinician Unavailable ZOYA MIRANDA Attending Clinician Unavailable CECILIO MOLINA Attending Clinician Unavailable Carley BOOKER Attending Clinician Unavailable Carley Correia Attending Clinician Doctor Unassigned, [place] Attending Clinician Unavailable Ruddy GAGE, Queenie Clifton Attending Clinician [phone] Kwadwo GAGE, Yusra Attending Clinician Miguelina GAGE, Oscar Attending Clinician David Hill MD Attending Clinician DAVID HILL Attending Clinician Unavailable QUEENIE HAMMOND Attending Clinician Unavailable Juanita GAGE, Eduardo Sandhu Attending Clinician Marquis Crabtree Attending Clinician Ajibade_O_AH Attending Clinician Unavailable Robbie Cook MD Attending Clinician ROBBIE COOK Attending Clinician Unavailable Nurse, Adc Surgery Gu Attending Clinician Unavailable [place] Mccall DO Attending Clinician Gloria Bridges Attending Clinician , [facility] Surg Spec Procedure Attending Clinician Unavailable Ige-Odunuga_J_AH Attending Clinician Unavailable JULIET MILLER Attending Clinician Unavailable LASHON VALLADARES Attending Clinician Unavailable ZOYA MIRANDA Admitting Clinician Unavailable CECILIO MOLINA Admitting Clinician Unavailable Carley BOOKER Admitting Clinician Unavailable YUSRA BURKETT Admitting Clinician Unavailable Ajibakevin_O_AH Admitting Clinician Unavailable FIDELINA FAROOQ Admitting Clinician Unavailable Ige-Odunuga_J_AH Admitting Clinician Unavailable Payers Payer Name Policy Type Policy Number Effective Date Expiration Date S musa [facility] [place] [facility] [id number] 2018 CLASSIC/VALUE 00:00:00 AARP/MEDICARE [id number] 2015 COMPLETE 00:00:00 [employer] MEDICARE ADV [id number] 2019 00:00:00 [facility] [id number] 2021 (MEDICARE 00:00:00 REPLACEMENT HMO) [facility] [id number] 2021 MEDICARE ADVANTAGE 00:00:00 [facility] [id number] 2019 [place] (MEDICARE 00:00:00 REPLACEMENT/ADVANTA GE - HMO) [place] [id number] MEDICARE/HMO 00:00:00 AARP NADIA ADVANTAGE [id number] 2015 [facility] 00:00:00 MEDICARE PART A \\T\\ [id number] 2015 B - MEDICARE 00:00:00 Problems Condition Condition Condition Status Onset Resolution Last Treating Co mments Source Name Details Category Date Date Treatment Clinician Date 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[facility] hematuria hematuria 04-02 [facility] 00:[facility]: Medical 00 Center Neuropathy Neuropathy Problem Active [facility] due to Due to 03-18 Family diabetes Diabetes 00:00: Practi c mellitus Mellitus e Overactive Overactive Problem Active [facility] bladder Bladder 03-18 Family 00:00: Practic 00 e Hyperlipid Hyperlipid Problem Active [facility] emia emia -04 Family 00:00: Practic 00 e Hypertensi Hypertensi Problem Active [facility] ve ve -04 Family disorder Disorder 00:00: Practi c 00 e 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 00:00: Practic block Block 00 e Cardiac Cardiac Problem Active [facility] arrhythmia Arrhythmia 1-04 [facility] 00:00: Practic 00 e Cerebrovas Cerebrovas Problem Active [facility] cular cular 1-04 Family accident Accident 00:00: Practi c 00 e Asthma Asthma Problem Active [facility] 1-04 Family 00:00: Practic 00 e 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 1-04 [facility] e lung e Lung 00:00: Practic disease Disease 00 e Benign Benign Problem Active [facility] prostatic Prostatic 1-04 Fami ly hyperplasi Hyperplasi 00:00: Pr actic a a 00 e History of History of Problem Active [facility] cerebrovas Cerebrovas 1-04 [facility] cular cular 00:00: Practic accident Accident 00 e Long-term Long-term Problem Active Hannah zoe current Current 1-04 Family use of Use of 00:00: Practic anticoagul Anticoagul 00 e ant ant Long-term Long-term Problem Active Hannah enriquez current Current 1-04 Family use of Use of 00:00: Practic opiate Opiate 00 e analgesic Analgesic drug Drug Obstructio Obstructio Disease Active 2019-[address] [facility] of n of 0-24 [facility] esophagus esophagus 00:00: Medi ezekiel due to due to 00 Center food food impaction impaction Food Food Disease Active 2019-[address] [facility] impaction impaction 0-24 [facility] of of 00:00: Medical esophagus esophagus 00 Cent er S/P S/P Disease Active 2019-[address] [facility] endoscopy endoscopy 0-23 [facility] 00:00: Medical 00 Center Anemia Anemia Disease Active [facility] st 00[facility]00: Hospita 00 l S/P aortic S/P aortic Disease Active 2017-03 Overview : Methodi valve valve 0-[address] replacemen replacemen 00:00: g of this Hospita t with t with 00 note l bioprosthe bioprosthe might be tic valve tic valve different from the original. Chronical ly elevated AV gradients ~ 3.3 m/s since at least 2014. Essential Essential Disease Active 2017-03 Met hodi hypertensi hypertensi 0-17 st on on 00:00: Hospita 00 l S/p TAVR S/p TAVR Disease Active 2015-03 [facility] (transcath (transcath 1-02 Jasen kes eter eter 00:00: Medical aortic aortic 00 Center valve valve replacemen replacemen t), t), bioprosthe bioprosthe tic tic Aortic Aortic Disease Active 2014-[address] [facility] stenosis stenosis 1-15 [facility] 00:[facility]: Medical 00 Center HTN HTN Disease Active 2014-[address] [facility] (hypertens (hypertens 1-15 Jasen kes ion) ion) 00:00: Medical 00 Center Cancer of Cancer of Disease Active 2014-[address] [facility] prostate prostate 1-15 [facility] 00:00: Medical 00 Center Asthma Asthma Disease Active 2014-[address] [facility] 1-15 [facility] 00:[facility]: Medical 00 Center TIA TIA Disease Active 2014-[address] [facility] (transient (transient 1-15 Jasen kes ischemic ischemic 00:00: Medica l attack) attack) 00 Center HLD HLD Disease Active 2014-[address] (hyperlipi (hyperlipi 1-15 Jasen kes demia) demia) 00:00: Medical 00 Center Patient is Patient is Disease Active 2014-[address] Jearavindvaisabel's Jehovah's 1-15 Luke s Witness Witness 00:00: Medical 00 Center Chest pain Chest pain Disease Active Overview : Univers 2-03 Form[facility]in ity of 00:00: g of this note Medical might be Branch different from the original. ICD10 Diagnosis Term Signal Worker Utility Other Other Disease Active Univers secondary secondary 04-09 ity of hypertensi [place]ens[place], benign on, benign 00 Me dical Branch Obstructiv Obstructiv Disease Active Overview : Univers e sleep e sleep 04-09 Formattin ity o f apnea apnea 00:00: g of this [place] note Medical might be Branch different from the original. ICD10 Diagnosis Term Signal Worker Utility HLD HLD Disease Active Overview: Univer s (hyperlipi (hyperlipi 04-09 Formattin ity of demia) demia) 00:00: g of this [place] note Medical might be Branch different from the original. 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 in [facility] type Hematuria Hematuria Problem Com mon [facility] [id number] Urinary Problem Commo n incontinen Spirit ce, - [id number] Bladder Problem Commo n spasms [facility] [id number] Urinary Problem Commo n retention Spirit [facility] [id number] S/P Problem Common radiation [facility] therapy [facility] [id number] 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[facility] bypass Medical graft of Center [place] heart without angina pectoris Prostate Prostate Problem Commo n cancer cancer [facility] Allergies, Adverse Reactions, Alerts Allergy Allergy Status Severity Reaction(s) Onset Inactive Treating Comm ents Source Name Type Date Date Clinician Diphenhy Propensi Active 2019-[address] [facility] dramine ty to 0-23 [facility] Hcl adverse 00:00: Medical reaction 00 Center s DIPHENHY Allergy Active 2019-03 [facility] DRAMINE 0-23 HCL 00:00: 00 Enalapri Drug Active Hives, 2014-[address] [facility] l Allergy Itching 03-18 [facility] 00:00: Medical Center ENALAPRI Allergy Active Hives 2014-03 [facility] L 03-18 00:00: 00 NO KNOWN Drug Active Univers ALLERGIE Class ity of S [facility] Family History Family Member Diagnosis Comments Start Date Stop Date Source Natural [facility] father Ast[facility] Natural father Stroke [facility] Natural mother Seizures [facility] Natural sister Diabetes [facility] Social History Social Habit Start Date Stop Date Quantity Comments Source History SDOH [facility] Alcohol Frequency Medical Center History SDOH [facility] Alcohol Std Medical Cente r Drinks History SDOH [facility] Alcohol Binge Medical [address] [facility] History of [facility] - Tobacco Use [facility] Exposure to 2021-08-22 2021-09-01 Not sure University SARS-CoV-2 00:00:00 17:20:00 [facility] (event) Branch Alcohol intake 2020-01-01 2020-01-01 [facility] 00:[facility] 00:00:00 of alcohol [facility] (finding) History SDOH 2015-01-19 2015-01-[address] [facility] Alcohol Comment 00:00:00 00:00:00 Medical C enter Tobacco use and 2015-01-19 2015-01-[address] Jasen kes exposure 00:00:00 00:00:00 Medical Center Sex Assigned At [birth year] [facility] 00:00:00 00:00:00 Medical Center Smoking Status Start Date Stop Date Source Never Smoker [facility] Ce nter Unknown if ever smoked Universit y [facility] Former smoker 2015-01-19 00:00:00 2015-01-19 00:00:00 [facility] Medications Ordered Filled Start Stop Current Ordering Indication Dosage Frequency Signature Comments Components Source Medication Medication Date Date Medication? Clinician (SIG) Name Name cephALEXin No 500mg 500 mg, Un henry (KEFLEX) 09-02 06- Oral, ity of capsule 500 03:30: 02:32 [place] :[place] dose, On Medical Tue Branch 09/01/21 at 2230, WINDY
Re ason [...] On Tue09/01/21 at 1915, Routine cephALEXin 2021- No [id number] 500mg Take 1 Univers (KEFLEX) 09-01 capsule by ity of 500 mg 00:00: 04:59 mouth 3 [place] capsule 00 :00 (three) Medical times Branch daily for 10 days. aspirin 81 Yes 81mg QD Take [address] MG EC 2-02 by mouth [facility] tablet 12:45: daily. Medical 42 [place] atorvastati Yes 40mg QD Take [address] n (LIPITOR) 2-02 by mouth Luke s 40 MG 12:45: daily. Medical tablet 42 Center tamsulosin Yes .4mg QD Take 0.[address] (FLOMAX) 2-02 mg by [facility] 0.4 mg Cp24 12:45: mouth Medic al 24 hr 42 daily. Center capsule HYDROcodone Yes 1{tbl} Take [address] -acetaminop 04-08 tablet by Gilberto es hen (NORCO 12:45: mouth Medica l 5-325) 42 every 8 Center 5-325 mg (eight) per tablet hours as needed for Pain. warfarin 2021- No 6mg QD Take [address] [address] (COUMADIN, 04-08 by mouth Luke s JANTOVEN) 6 11:00: 00:00 daily. Med ical MG tablet 48 :00 Center warfarin 2021- No 5mg QD Take [address] [facility] (COUMADIN, 04-08 03-04 tablet (5 Gilberto es JANTOVEN) 5 00:00: 23:59 mg total) Medical MG tablet 00 :00 by mouth Center daily for 30 days. enoxaparin 2021- No 80mg Inject 0.[address] (LOVENOX) 04-07 mLs (80 mg Gilberto es 80 mg/0.8 00:00: 00:00 total) Medic al mL Syrg 00 :00 subcutaneo Center usly every 12 (twelve) hours for 5 days. diclofenac 2021- No 75mg Q.5D Take [address] (VOLTAREN) 04-04 by mouth 2 Jasen kes 75 MG EC 04:49: 00:00 (two) Medical tablet 47 :00 times Center daily. diclofenac 2020-03 Yes [id number] 75mg Take 1 Univers 75 mg EC 1 9109 tablet by ity of tablet 00:00: mouth (two) Medical times Branch daily with meals. diclofenac 2020-03 Yes [id number] 75mg Take 1 Univers 75 mg EC 03-07 9109 tablet by ity of tablet 00:00: mouth (two) Medical times Branch daily with meals. diclofenac 2020-03 Yes [id number] 75mg Take 1 Univers 75 mg EC 1- 9109 tablet by ity of tablet 00:00: mouth (two) Medical times Branch daily with meals. diclofenac 2020-03 Yes [id number] 75mg Take 1 Univers 75 mg EC 1 9109 tablet by ity of tablet 00:00: mouth 2 (two) Medical times Branch daily with meals. diclofenac 0 2020- No [id number] 75mg Take 1 Univers 75 mg EC 8-10 09-10 9109 tablet by ity o f tablet 00:00: 04:59 mouth 2 00 :00 (two) Medical times Branch daily with meals for 30 days. diclofenac 2020-0 Yes [id number] 75mg Take 1 Univers 75 mg EC 7-08 9109 tablet by ity of tablet 00:00: mouth [place] (two) Medical times Branch daily with meals. diclofenac 2020-0 Yes [id number] 75mg Take 1 Univers 75 mg EC 7-08 9109 tablet by ity of tablet 00:00: mouth (two) Medical times Branch daily with meals. diclofenac 2020-0 Yes [id number] 75mg Take 1 Univers 75 mg EC 7-08 9109 tablet by ity of tablet 00:00: mouth [place] (two) Medical times Branch daily with meals. diclofenac 2020-0 2020- No [id number] 75mg Take 1 Univers 75 mg EC 7-08 11- 9109 tablet by ity o f tablet 00:00: 00:00 mouth 00 : (two) Medical times Branch daily with meals. diclofenac 2020-0 Yes [id number] 75mg Take 1 Univers 75 mg EC 6-10 9109 tablet by ity of tablet 00:00: mouth [place] (two) Medical times Branch daily with meals. diclofenac 2020-0 Yes [id number] 75mg Take 1 Univers 75 mg EC 6-10 9109 tablet by ity of tablet 00:00: mouth [place] (two) Medical times Branch daily with meals. diclofenac 2020-0 Yes [id number] 75mg Take 1 Univers 75 mg EC 6-10 9109 tablet by ity of tablet 00:00: mouth [place] (two) Medical times Branch daily with meals. diclofenac 2020-0 Yes [id number] 75mg Take 1 Univers 75 mg EC 6-10 9109 tablet by ity of tablet 00:00: mouth [place] (two) Medical times Branch daily with meals. diclofenac 2020-0 Yes [id number] 75mg Take 1 Univers 75 mg EC 6-10 9109 tablet by ity of tablet 00:00: mouth [place] (two) Medical times Branch daily with meals. diclofenac 2021-0 Yes [id number] 75mg Take 1 Univers 75 mg EC 6-10 9109 tablet by ity of tablet 00:00: mouth (two) Medical times Branch daily with meals. diclofenac 2021-0 Yes [id number] 75mg Take 1 Univers 75 mg EC 6-10 9109 tablet by ity of tablet 00:00: mouth (two) Medical times Branch daily with meals. diclofenac 2021-0 Yes [id number] 75mg Take 1 Univers 75 mg EC [...] daily with meals. diclofenac 2021-0 2021- No [id number] 75mg Take 1 Univers 75 mg EC 05-26 9109 tablet by ity o f tablet [...] tablet by ity of tablet 00:00: mouth [place] (two) Medical times Branch daily with meals. diclofenac 2020-0 Yes 75mg Take 1 Unive rs 75 mg EC 1-14 tablet by ity of tablet 00:00: mouth [place] (two) Medical times Branch daily with meals. diclofenac 2019- 2020- No [id number] 75mg Take 1 Univers 75 mg EC 1-23 12-24 9109 tablet by ity o f tablet 00:00: 05:59 mouth 2 [place] 00 :00 (two) Medical times Branch daily with meals for 30 days. diclofenac 2020-0 Yes [id number] 75mg Take 1 Univers 75 mg EC 7-14 9109 tablet by ity of tablet 00:00: mouth [place] (two) Medical times Branch daily with meals. diclofenac 2020-0 Yes [id number] 75mg Take 1 Univers 75 mg EC 7-14 9109 tablet by ity of tablet 00:00: mouth [place] (two) Medical times Branch daily with meals. diclofenac 2020-0 Yes [id number] 75mg Take 1 Univers 75 mg EC 7-14 9109 tablet by ity of tablet 00:00: mouth [place] (two) Medical times Branch daily with meals. diclofenac 2020-0 Yes [id number] 75mg Take 1 Univers 75 mg EC 7-14 9109 tablet by ity of tablet 00:00: mouth [place] (two) Medical times Branch daily with meals. diclofenac 2020-0 Yes [id number] 75mg Take 1 Univers 75 mg EC 7-14 9109 tablet by ity of tablet 00:00: mouth [place] (two) Medical times Branch daily with meals. diclofenac 2020-0 Yes [id number] 75mg Take 1 Univers 75 mg EC 7-14 9109 tablet by ity of tablet 00:00: mouth [place] (two) Medical times Branch daily with meals. diclofenac 2020-0 Yes [id number] 75mg Take 1 Univers 75 mg EC 7-14 9109 tablet by ity of tablet 00:00: mouth [place] (two) Medical times Branch daily with meals. diclofenac 2020-0 Yes [id number] 75mg Take 1 Univers 75 mg EC 7-14 9109 tablet by ity of tablet 00:00: mouth [address] [place] [address] (two) Medical times Branch daily with meals. diclofenac 2020-0 Yes [id number] 75mg Take 1 Univers 75 mg EC 7-14 9109 tablet by ity of tablet 00:00: mouth (two) Medical times Branch daily with meals. diclofenac 2020-0 Yes [id number] 75mg Take 1 Univers 75 mg EC 7-14 9109 tablet by ity of tablet 00:00: mouth (two) Medical times Branch daily with meals. diclofenac 2020-0 Yes [id number] 75mg Take 1 Univers 75 mg EC 7-14 9109 tablet by ity of tablet 00:00: mouth (two) Medical times Branch daily with meals. diclofenac 2020-0 Yes [id number] 75mg Take 1 Univers 75 mg EC 7-14 9109 tablet by ity of tablet 00:00: mouth (two) Medical times Branch daily with meals. diclofenac 2020-0 Yes [id number] 75mg Take 1 Univers 75 mg EC 7-14 9109 tablet by ity of tablet 00:00: mouth (two) Medical times Branch daily with meals. diclofenac 2020-0 Yes [id number] 75mg Take 1 Univers 75 mg EC 7-14 9109 tablet by ity of tablet 00:00: mouth (two) Medical times Branch daily with meals. diclofenac 2020-0 Yes [id number] 75mg Take 1 Univers 75 mg EC 7-14 9109 tablet by ity of tablet 00:00: mouth (two) Medical times Branch daily with meals. diclofenac 2020-0 Yes [id number] 75mg Take 1 Univers 75 mg EC 7-14 9109 tablet by ity of tablet 00:00: mouth (two) Medical times Branch daily with meals. diclofenac 2020-0 Yes [id number] 75mg Take 1 Univers 75 mg EC 7-14 9109 tablet by ity of tablet 00:00: mouth (two) Medical times Branch daily with meals. diclofenac 2020-0 Yes [id number] 75mg Take 1 Univers 75 mg EC 7-14 9109 tablet by ity of tablet 00:00: mouth (two) Medical times Branch daily with meals. diclofenac 2020-0 Yes [id number] 75mg Take 1 Univers 75 mg EC 7-14 9109 tablet by ity of tablet 00:00: mouth (two) Medical times Branch daily with meals. diclofenac 2020-0 Yes [id number] 75mg Take 1 Univers 75 mg EC 7-14 9109 tablet by ity of tablet 00:00: mouth 2 (two) Medical times Branch daily with meals. diclofenac 2020-0 Yes [id number] 75mg Take 1 Univers 75 mg EC 7-14 9109 tablet by ity of tablet 00:00: mouth 2 (two) Medical times Branch daily with meals. diclofenac 2020-0 Yes [id number] 75mg Take 1 Univers 75 mg EC 7-14 9109 tablet by ity of tablet 00:00: mouth 2 (two) Medical times Branch daily with meals. diclofenac 2020-0 Yes [id number] 75mg Take 1 Univers 75 mg EC 7-14 9109 tablet by ity of tablet 00:00: mouth 2 (two) Medical times Branch daily with meals. amoxicillin 2020-0 Yes [id number] 500mg Take 1 Univers 500 mg 6-28 capsule by ity of capsule 00:00: mouth (three) Medical times Branch daily. amoxicillin 2020-0 Yes [id number] 500mg Take 1 Univers 500 mg 6-28 capsule by ity of capsule 00:00: mouth (three) Medical times Branch daily. amoxicillin 2020-0 Yes [id number] 500mg Take 1 Univers 500 mg 6-28 capsule by ity of capsule 00:00: mouth (three) Medical times Branch daily. amoxicillin 2020-0 Yes [id number] 500mg Take 1 Univers 500 mg 6-28 capsule by ity of capsule 00:00: mouth (three) Medical times Branch daily. amoxicillin 2020-0 Yes [id number] 500mg Take 1 Univers 500 mg 6-28 capsule by ity of capsule 00:00: mouth (three) Medical times Branch daily. amoxicillin 2020-0 Yes [id number] 500mg Take 1 Univers 500 mg 6-28 capsule by ity of capsule 00:00: mouth 3 (three) Medical times Branch daily. amoxicillin 2020-0 Yes [id number] 500mg Take 1 Univers 500 mg 6-28 capsule by ity of capsule 00:00: mouth 3 (three) Medical times Branch daily. amoxicillin 2020-0 Yes [id number] 500mg Take 1 Univers 500 mg 6-28 capsule by ity of capsule 00:00: mouth 3 (three) Medical times Branch daily. amoxicillin 2020-0 Yes [id number] 500mg Take 1 Univers 500 mg 6-28 capsule by ity of capsule 00:00: mouth [place] (three) Medical times Branch daily. amoxicillin 2020-0 Yes [id number] 500mg Take 1 Univers 500 mg 6-28 capsule by ity of capsule 00:00: mouth [place] (three) Medical times Branch daily. amoxicillin 2020-0 Yes [id number] 500mg Take 1 Univers 500 mg 6-28 capsule by ity of capsule 00:00: mouth [place] (three) Medical times Branch daily. amoxicillin 2020-0 Yes [id number] 500mg Take 1 Univers 500 mg 6-28 capsule by ity of capsule 00:00: mouth [place] (three) Medical times Branch daily. amoxicillin 2020-0 Yes [id number] 500mg Take 1 Univers 500 mg 6-28 capsule by ity of capsule 00:00: mouth [address] [place] [address] ([facility]) Medical times Branch daily. amoxicillin 2020-0 Yes [id number] 500mg Take 1 Univers 500 mg 6-28 capsule by ity of capsule 00:00: mouth [address] [place] [address] ([facility]) Medical times Branch daily. amoxicillin 2020-0 Yes [id number] 500mg Take 1 Univers 500 mg 6-28 capsule by ity of capsule 00:00: mouth [address] [place] [address] ([facility]) Medical times Branch daily. amoxicillin 2020-0 Yes [id number] 500mg Take 1 Univers 500 mg 6-28 capsule by ity of capsule 00:00: mouth [address] [place] [address] ([facility]) Medical times Branch daily. amoxicillin 2020-0 Yes [id number] 500mg Take 1 Univers 500 mg 6-28 capsule by ity of capsule 00:00: mouth [address] [place] [address] ([facility]) Medical times Branch daily. amoxicillin 2020-0 Yes [id number] 500mg Take 1 Univers 500 mg 6-28 capsule by ity of capsule 00:00: mouth [address] [place] [address] (three) Medical times Branch daily. amoxicillin 2020-0 Yes [id number] 500mg Take 1 Univers 500 mg 6-28 capsule by ity of capsule 00:00: mouth [address] [place] [address] (three) Medical times Branch daily. amoxicillin 2020-0 Yes [id number] 500mg Take 1 Univers 500 mg 6-28 capsule by ity of capsule 00:00: mouth [address] [place] [address] ([facility]) Medical times Branch daily. amoxicillin 2020-0 Yes [id number] 500mg Take 1 Univers 500 mg 6-28 capsule by ity of capsule 00:00: mouth (three) Medical times Branch daily. amoxicillin 2020-0 Yes [id number] 500mg Take 1 Univers 500 mg 6-28 capsule by ity of capsule 00:00: mouth 3 (three) Medical times Branch daily. amoxicillin 2020-0 Yes [id number] 500mg Take 1 Univers 500 mg 6-28 capsule by ity of capsule 00:00: mouth (three) Medical times Branch daily. amoxicillin 2020-0 Yes [id number] 500mg Take 1 Univers 500 mg 6-28 [...] tablet by ity of tablet 00:00: mouth [place] (two) Medical times Branch daily with meals. [...] by ity of tablet 00:00: mouth 2 [place] 00 (two) Medical times Branch daily with meals. diclofenac 2020-0 Yes 75mg Take 1 Unive rs 75 mg EC 6-26 tablet by ity of tablet 00:00: mouth 2 [place] 00 (two) Medical times Branch daily with meals. diclofenac 2020-0 Yes 75mg Take 1 Unive rs 75 mg EC 6-26 tablet by ity of tablet 00:00: mouth 2 [place] 00 (two) Medical times Branch daily with meals. diclofenac 2020-0 Yes 75mg Take 1 Unive rs 75 mg EC 6-26 tablet by ity of tablet 00:00: mouth 2 [place] 00 (two) Medical times Branch daily with meals. diclofenac 2020-0 Yes 75mg Take 1 Unive rs 75 mg EC 6-26 tablet by ity of tablet 00:00: mouth 2 [place] 00 (two) Medical times Branch daily with meals. diclofenac 2020-0 Yes 75mg Take 1 Unive rs 75 mg EC 6-26 tablet by ity of tablet 00:00: mouth 2 [place] 00 (two) Medical times Branch daily with meals. mirabegron 2020-0 2020- No [id number] 25mg Take 1 Univers 25 mg 6-05 07-06 tablet by ity of tablet 00:00: 04:59 mouth [place] 00 :00 daily for Medical 30 days. Branch mirabegron 2020-0 2020- No [id number] 25mg Take 1 Univers 25 mg 6-05 07-06 tablet by ity of tablet 00:00: 04:59 mouth [place] 00 :00 daily for Medical 30 days. Branch mirabegron 2020-0 2020- No [id number] 25mg Take 1 Univers 25 mg 6-05 07-06 tablet by ity of tablet 00:00: 04:59 mouth [place] 00 :00 daily for Medical 30 days. Branch mirabegron 2020-0 2020- No [id number] 25mg Take 1 Univers 25 mg 6-05 07-06 tablet by ity of tablet 00:00: 04:59 mouth [place] 00 :00 daily for Medical 30 days. Branch mirabegron 2020-0 2020- No [id number] 25mg Take 1 [facility] 25 mg 6-05 07-06 tablet by ity of tablet 00:00: 04:59 mouth [place] 00 :00 daily for Medical 30 days. Branch mirabegron 2020-0 2020- No [id number] 25mg Take 1 [facility] 25 mg 6-05 [...] by ity of tablet 00:00: mouth 2 [place] (two) Medical times Branch daily with meals. [...] times Branch daily with meals. diclofenac 2020-0 202- No 75mg Take 1 [facility] ers 75 [...] by ity of tablet 00:00: mouth 2 [place] (two) Medical times Branch daily with meals. diclofenac 2020-0 2020- No 75mg Take 1 [facility] ers 75 mg EC 3-17 07-14 tablet by ity o f tablet 00:00: 00:00 mouth 2 [place] 00 :00 (two) Medical times Branch daily with meals. gentamicin 2020-0 2020- No 80mg [facility] s injection 05-04 ity of 80 mg 19:00: 17:48 [place] 00 :00 Medical Branch gentamicin 2020-0 2020- No 80mg 80 mg, IV U nivers injection 05-04 Piggyback, ity of 80 mg 19:00: 17:48 ONCE, 1 [place] 00 :00 dose, [facility] 05/04/19 at Branch 1300, WINDY
Re ason for Anti-Infec tive: Surgical Prophylaxi s
Surgi ezekiel Prophylaxi s: Genitourin michelle
Dur ation of therapy: within 24 hours of surgery gentamicin 2020-0 2020- No 80mg [facility] s injection 05-04 ity of 80 mg 19:00: 17:48 [place] 00 :00 Medical Branch gentamicin 2020-0 2020- No 80mg 80 mg, IV U nivers injection 05-04 Piggyback, ity of 80 mg 19:00: 17:48 ONCE, 1 [place] 00 :00 dose, [facility] 05/04/19 at Branch 1300, W[place]Y
Re ason for Anti-Infec tive: Surgical Prophylaxi s
Surgi ezekiel Prophylaxi s: Genitourin michelle
Dur ation of therapy: within 24 hours of surgery cephALEXin 2020-0 2020- No [id number] 500mg Take 2 [facility] 250 mg 05-04- capsules ity of capsule 00:00: 05:59 by mouth [place] 00 :00 every 12 Medical (twelve) Branch hours for 3 days. cephALEXin 2020-0 2020- No [id number] 500mg Take 2 [facility] 250 mg 05-04-03 capsules ity of capsule 00:00: 05:59 by mouth [place] 00 :00 every 12 Medical (twelve) Branch hours for 3 days. atorvastati 2020-0 Yes 20mg Take 20 mg [facility] n 20 mg 2-20 by mouth ity of tablet 00:00: daily. [address] Branch metoprolol 2020-0 Yes 25mg Take 25 mg U nivers tartrate 25 2-20 by mouth 2 it y of mg tablet 00:00: (two) [place] 00 times Medical daily. Branch atorvastati 2020-0 Yes 20mg Take 20 mg [facility] n 20 mg 2-20 by mouth ity of tablet 00:00: daily. [address] Branch metoprolol 2020-0 Yes 25mg Take 25 mg U nivers tartrate 25 2-20 by mouth 2 it y of mg tablet 00:00: (two) 00 times Medical daily. Branch atorvastati 2020-0 Yes 20mg Take 20 mg [facility] n 20 mg 2-20 by mouth ity of tablet 00:00: daily. Medical Branch metoprolol 2020-0 Yes 25mg Take 25 mg U nivers tartrate 25 2-20 by mouth 2 it y of mg tablet 00:00: (two) [place] times Medical daily. Branch atorvastati 2020-0 Yes 20mg Take 20 mg [facility] n 20 mg 2-20 by mouth ity of tablet 00:00: daily. Medical Branch metoprolol 2020-0 Yes 25mg Take 25 mg U nivers tartrate 25 2-20 by mouth 2 it y of mg tablet 00:00: (two) [place] times Medical daily. Branch atorvastati 2020-0 Yes 20mg Take 20 mg [facility] n 20 mg 2-20 by mouth ity of tablet 00:00: daily. Medical Branch metoprolol 2020-0 Yes 25mg Take 25 mg U nivers tartrate 25 2-20 by mouth 2 it y of mg tablet 00:00: (two) [place] 00 times Medical daily. Branch atorvastati 2020-0 Yes 20mg Take 20 mg [facility] n 20 mg 2-20 by mouth ity of tablet 00:00: daily. Medical Branch metoprolol 2020-0 Yes 25mg Take 25 mg U nivers tartrate 25 2-20 by mouth 2 it y of mg tablet 00:00: (two) [place] Medical daily. Branch atorvastati 2020-0 Yes 20mg Take 20 mg [facility] n 20 mg 2-20 by mouth ity of tablet 00:00: daily. Medical Branch metoprolol 2020-0 Yes 25mg Take 25 mg U nivers tartrate 25 2-20 by mouth 2 it y of mg tablet 00:00: (two) [place] times Medical daily. Branch atorvastati 2020-0 Yes [...] it y of mg tablet 00:00: (two) [place] 00 times Medical daily. Branch atorvastati 2020-0 Yes 20mg Take 20 mg [facility] n 20 mg 2-20 by mouth ity of tablet 00:00: daily. Medical Branch metoprolol 2020-0 Yes 25mg Take 25 mg U nivers tartrate 25 2-20 by mouth 2 it y of mg tablet 00:00: (two) [place] times Medical daily. Branch atorvastati 2020-0 Yes 20mg Take 20 mg [facility] n 20 mg 2-20 by mouth ity of tablet 00:00: daily. Medical Branch metoprolol 2020-0 Yes 25mg Take 25 mg U nivers tartrate 25 2-20 by mouth 2 it y of mg tablet 00:00: (two) [place] 00 times Medical daily. Branch atorvastati 2020-0 Yes 20mg Take 20 mg [facility] n 20 mg 2-20 by mouth ity of tablet 00:00: daily. Medical Branch metoprolol 2020-0 Yes 25mg Take 25 mg U nivers tartrate 25 2-20 by mouth 2 it y of mg tablet 00:00: (two) [place] 00 times Medical daily. Branch atorvastati 2020-0 Yes 20mg Take 20 mg [facility] n 20 mg 2-20 by mouth ity of tablet 00:00: daily. Medical Branch metoprolol 2020-0 Yes 25mg Take 25 mg U nivers tartrate 25 2-20 by mouth 2 it y of mg tablet 00:00: (two) [place] 00 times Medical daily. Branch atorvastati 2020-0 Yes 20mg Take 20 mg [facility] n 20 mg 2-20 by mouth ity of tablet 00:00: daily. Medical Branch metoprolol 2020-0 Yes 25mg Take 25 mg U nivers tartrate 25 2-20 by mouth 2 it y of mg tablet 00:00: (two) [place] 00 times Medical daily. Branch atorvastati 2020-0 Yes 20mg Take 20 mg [facility] n 20 mg 2-20 by mouth ity of tablet 00:00: daily. Medical Branch metoprolol 2020-0 Yes 25mg Take 25 mg U nivers tartrate 25 2-20 by mouth 2 it y of mg tablet 00:00: (two) [place] 00 times Medical daily. Branch atorvastati 2020-0 Yes 20mg Take 20 mg [facility] n 20 mg 2-20 by mouth ity of tablet 00:00: daily. Medical Branch metoprolol 2020-0 Yes 25mg Take 25 mg U nivers tartrate 25 2-20 by mouth 2 it y of mg tablet 00:00: (two) [place] 00 times Medical daily. Branch atorvastati 2020-0 Yes 20mg Take 20 mg [facility] n 20 mg 2-20 by mouth ity of tablet 00:00: daily. Medical Branch metoprolol 2020-0 Yes 25mg Take 25 mg U nivers tartrate 25 2-20 by mouth 2 it y of mg tablet 00:00: (two) [place] 00 times Medical daily. Branch atorvastati 2020-0 Yes 20mg Take 20 mg [facility] n 20 mg 2-20 by mouth ity of tablet 00:00: daily. Medical Branch metoprolol 2020-0 Yes 25mg Take 25 mg U nivers tartrate 25 2-20 by mouth 2 it y of mg tablet 00:00: (two) [place] 00 times Medical daily. Branch atorvastati 2020-0 Yes 20mg Take 20 mg [facility] n 20 mg 2-20 by mouth ity of tablet 00:00: daily. [place] Medical Branch metoprolol 2020-0 Yes 25mg Take 25 mg U nivers tartrate 25 2-20 by mouth 2 it y of mg tablet 00:00: (two) [place] 00 times Medical daily. Branch atorvastati 2020-0 Yes 20mg Take 20 mg [facility] n 20 mg 2-20 by mouth ity of tablet 00:00: daily. Medical Branch metoprolol 2020-0 Yes 25mg Take 25 mg U nivers tartrate 25 2-20 by mouth 2 it y of mg tablet 00:00: (two) [place] 00 times Medical daily. Branch atorvastati 2020-0 Yes 20mg Take 20 mg [facility] n 20 mg 2-20 by mouth ity of tablet 00:00: daily. Medical Branch metoprolol 2020-0 Yes 25mg Take 25 mg U nivers tartrate 25 2-20 by mouth 2 it y of mg tablet 00:00: (two) [place] 00 times Medical daily. Branch atorvastati 2020-0 Yes 20mg Take 20 mg [facility] n 20 mg 2-20 by mouth ity of tablet 00:00: daily. Medical Branch metoprolol 2020-0 Yes 25mg Take 25 mg U nivers tartrate 25 2-20 by mouth 2 it y of mg tablet 00:00: (two) [place] 00 times Medical daily. Branch atorvastati 2020-0 Yes 20mg Take 20 mg [facility] n 20 mg 2-20 by mouth ity of tablet 00:00: daily. Medical Branch metoprolol 2020-0 Yes 25mg Take 25 mg U nivers tartrate 25 2-20 by mouth 2 it y of mg tablet 00:00: (two) [place] 00 times Medical daily. Branch atorvastati 2020-0 Yes 20mg Take 20 mg [facility] n 20 mg 2-20 by mouth ity of tablet 00:00: daily. Medical Branch metoprolol 2020-0 Yes 25mg Take 25 mg U nivers tartrate 25 2-20 by mouth 2 it y of mg tablet 00:00: (two) [place] 00 times Medical daily. Branch atorvastati 2020-0 Yes 20mg Take 20 mg [facility] n 20 mg 2-20 by mouth ity of tablet 00:00: daily. Medical Branch metoprolol 2020-0 Yes 25mg Take 25 mg U nivers tartrate 25 2-20 by mouth 2 it y of mg tablet 00:00: (two) [place] times Medical daily. Branch atorvastati 2020-0 Yes 20mg Take 20 mg [facility] n 20 mg 2-20 by mouth ity of tablet 00:00: daily. Medical Branch metoprolol 2020-0 Yes 25mg Take 25 mg U nivers tartrate 25 2-20 by mouth 2 it y of mg tablet 00:00: (two) [place] 00 times Medical daily. Branch atorvastati 2020-0 Yes 20mg Take 20 mg [facility] n 20 mg 2-20 by mouth ity of tablet 00:00: daily. Medical Branch metoprolol 2020-0 Yes 25mg Take 25 mg U nivers tartrate 25 2-20 by mouth 2 it y of mg tablet 00:00: (two) [place] 00 times Medical daily. Branch atorvastati 2020-0 Yes 20mg Take 20 mg [facility] n 20 mg 2-20 by mouth ity of tablet 00:00: daily. Medical Branch metoprolol 2020-0 Yes 25mg Take 25 mg U nivers tartrate 25 2-20 by mouth 2 it y of mg tablet 00:00: (two) [place] 00 times Medical daily. Branch atorvastati 2020-0 Yes 20mg Take 20 mg [facility] n 20 mg 2-20 by mouth ity of tablet 00:00: daily. Medical Branch metoprolol 2020-0 Yes 25mg Take 25 mg U nivers tartrate 25 2-20 by mouth 2 it y of mg tablet 00:00: (two) [place] times Medical daily. Branch atorvastati 2020-0 Yes 20mg Take 20 mg [facility] n 20 mg 2-20 by mouth ity of tablet 00:00: daily. Medical Branch metoprolol 2020-0 Yes 25mg Take 25 mg U nivers tartrate 25 2-20 by mouth 2 it y of mg tablet 00:00: (two) [place] times Medical daily. Branch atorvastati 2020-0 Yes 20mg Take 20 mg [facility] n 20 mg 2-20 by mouth ity of tablet 00:00: daily. Medical Branch metoprolol 2020-0 Yes 25mg Take 25 mg U nivers tartrate 25 2-20 by mouth 2 it y of mg tablet 00:00: (two) [place] 00 times Medical daily. Branch atorvastati 2020-0 Yes 20mg Take 20 mg [facility] n 20 mg 2-20 by mouth ity of tablet 00:00: daily. Medical Branch metoprolol 2020-0 Yes 25mg Take 25 mg U nivers tartrate 25 2-20 by mouth 2 it y of mg tablet 00:00: (two) [place] 00 times Medical daily. Branch atorvastati 2020-0 Yes 20mg Take 20 mg [facility] n 20 mg 2-20 by mouth ity of tablet 00:00: daily. Medical Branch metoprolol 2020-0 Yes 25mg Take 25 mg U nivers tartrate 25 2-20 by mouth 2 it y of mg tablet 00:00: (two) [place] times Medical daily. Branch atorvastati 2020-0 Yes [...] it y of mg tablet 00:00: (two) [place] 00 times Medical daily. Branch atorvastati 2020-0 Yes 20mg Take 20 mg [facility] n 20 mg 2-20 by mouth ity of tablet 00:00: daily. Medical Branch metoprolol 2020-0 Yes 25mg Take 25 mg U nivers tartrate 25 2-20 by mouth 2 it y of mg tablet 00:00: (two) [place] 00 times Medical daily. Branch atorvastati 2020-0 Yes 20mg Take 20 mg [facility] n 20 mg 2-20 by mouth ity of tablet 00:00: daily. [place] Medical Branch metoprolol 2020-0 Yes 25mg Take 25 mg U nivers tartrate 25 2-20 by mouth 2 it y of mg tablet 00:00: (two) [place] 00 times Medical daily. Branch atorvastati 2020-0 Yes 20mg Take 20 mg [facility] n 20 mg 2-20 by mouth ity of tablet 00:00: daily. [place] Medical Branch metoprolol 2020-0 Yes 25mg Take 25 mg U nivers tartrate 25 2-20 by mouth 2 it y of mg tablet 00:00: (two) [place] 00 times Medical daily. Branch atorvastati 2020-0 Yes 20mg Take 20 mg [facility] n 20 mg 2-20 by mouth ity of tablet 00:00: daily. Medical Branch metoprolol 2020-0 Yes 25mg Take 25 mg U nivers tartrate 25 2-20 by mouth 2 it y of mg tablet 00:00: (two) [place] 00 times Medical daily. Branch atorvastati 2020-0 Yes 20mg Take 20 mg [facility] n 20 mg 2-20 by mouth ity of tablet 00:00: daily. Medical Branch metoprolol 2020-0 Yes 25mg Take 25 mg U nivers tartrate 25 2-20 by mouth 2 it y of mg tablet 00:00: (two) [place] 00 times Medical daily. Branch atorvastati 2020-0 Yes 20mg Take 20 mg [facility] n 20 mg 2-20 by mouth ity of tablet 00:00: daily. Medical Branch metoprolol 2020-0 Yes 25mg Take 25 mg U nivers tartrate 25 2-20 by mouth 2 it y of mg tablet 00:00: (two) [place] 00 times Medical daily. Branch atorvastati 2020-0 Yes 20mg Take 20 mg [facility] n 20 mg 2-20 by mouth ity of tablet 00:00: daily. Medical Branch metoprolol 2020-0 Yes 25mg Take 25 mg U nivers tartrate 25 2-20 by mouth 2 it y of mg tablet 00:00: (two) [place] times Medical daily. Branch atorvastati 2020-0 Yes 20mg Take 20 mg [facility] n 20 mg 2-20 by mouth ity of tablet 00:00: daily. Medical Branch metoprolol 2020-0 Yes 25mg Take 25 mg U nivers tartrate 25 2-20 by mouth 2 it y of mg tablet 00:00: (two) [place] times Medical daily. Branch tamsulosin 2020-0 Yes .4mg QD Take 0.4 [facility] ([facility]OM[facility]) 2-[address] 0.4 mg 15:14: mouth [facility] capsule [facility] daily. l tamsulosin 2020-0 Yes Take by Univ ers 0.4 mg 24 2-14 mouth ity of hr capsule 17:20: daily. [place] Medical Branch om 2020-0 Yes Take by Univers 3/E/linol/a 2-14 mouth. ity of la/oleic/gl 17:20: [place] a/lip 21 Medical (OMEGA Branch 3-6-9 ORAL) tamsulosin 2020-0 Yes Take by Univ ers 0.4 mg 24 2-14 mouth ity of hr capsule 17:20: daily. [place] Medical Branch om 2020-0 Yes Take by Univers 3/E/linol/a 2-14 mouth. ity of la/oleic/gl 17:20: [place] a/lip 21 Medical (OMEGA Branch 3-6-9 ORAL) tamsulosin 2020-0 Yes Take by Univ ers 0.4 mg 24 2-14 mouth ity of hr capsule 17:20: daily. [place] [address] Medical Branch om 2020-0 Yes Take by Univers 3/E/linol/a 2-14 mouth. ity of la/oleic/gl 17:20: [place] a/lip 21 Medical (OMEGA Branch 3-6-9 ORAL) tamsulosin 2020-0 Yes Take by Univ ers 0.4 mg 24 2-14 mouth ity of hr capsule 17:20: daily. [place] [address] Medical Branch om 2020-0 Yes Take by Univers 3/E/linol/a 2-14 mouth. ity of la/oleic/gl 17:20: [place] a/lip 21 Medical (OMEGA Branch 3-6-9 ORAL) tamsulosin 2020-0 Yes Take by Univ ers 0.4 mg 24 2-14 mouth ity of hr capsule 17:20: daily. [place] [address] Medical Branch om 2020-0 Yes Take by Univers 3/E/linol/a 2-14 mouth. ity of la/oleic/gl 17:20: [place] a/lip 21 Medical (OMEGA Branch 3-6-9 ORAL) tamsulosin 2020-0 Yes Take by Univ ers 0.4 mg 24 2-14 mouth ity of hr capsule 17:20: daily. [place] [address] Medical Branch om 2020-0 Yes Take by Univers 3/E/linol/a 2-14 mouth. ity of la/oleic/gl 17:20: [place] a/lip 21 Medical (OMEGA Branch 3-6-9 ORAL) tamsulosin 2020-0 Yes Take by Univ ers 0.4 mg 24 2-14 mouth ity of hr capsule 17:20: daily. [place] [address] Medical Branch om 2020-0 Yes Take by Univers 3/E/linol/a 2-14 mouth. ity of la/oleic/gl 17:20: [place] a/lip 21 Medical (OMEGA Branch 3-6-9 ORAL) tamsulosin 2020-0 Yes Take by Univ ers 0.4 mg 24 2-14 mouth ity of hr capsule 17:20: daily. [place] [address] Medical Branch om 2020-0 Yes Take by Univers 3/E/linol/a 2-14 mouth. ity of la/oleic/gl 17:20: [place] a/lip 21 Medical (OMEGA Branch 3-6-9 ORAL) tamsulosin 2020-0 Yes Take by Univ ers 0.4 mg 24 2-14 mouth ity of hr capsule 17:20: daily. [place] [address] Medical Branch om 2020-0 Yes Take by Univers 3/E/linol/a 2-14 mouth. ity of la/oleic/gl 17:20: [place] a/lip 21 Medical (OMEGA Branch 3-6-9 ORAL) tamsulosin 2020-0 Yes Take by Univ ers 0.4 mg 24 2-14 mouth ity of hr capsule 17:20: daily. [place] [address] Medical Branch om 2020-0 Yes Take by Univers 3/E/linol/a 2-14 mouth. ity of la/oleic/gl 17:20: [place] a/lip 21 Medical (OMEGA Branch 3-6-9 ORAL) tamsulosin 2020-0 Yes Take by Univ ers 0.4 mg 24 2-14 mouth ity of hr capsule 17:20: daily. [place] [address] Medical Branch om 2020-0 Yes Take by Univers 3/E/linol/a 2-14 mouth. ity of la/oleic/gl 17:20: [place] a/lip 21 Medical (OMEGA Branch 3-6-9 ORAL) tamsulosin 2020-0 Yes Take by Univ ers 0.4 mg 24 2-14 mouth ity of hr capsule 17:20: daily. [place] [address] Medical Branch om 2020-0 Yes Take by Univers 3/E/linol/a 2-14 mouth. ity of la/oleic/gl 17:20: [place] a/lip 21 Medical (OMEGA Branch 3-6-9 ORAL) tamsulosin 2020-0 Yes Take by Univ ers 0.4 mg 24 2-14 mouth ity of hr capsule 17:20: daily. [place] [address] Medical Branch om 2020-0 Yes Take by Univers 3/E/linol/a 2-14 mouth. ity of la/oleic/gl 17:20: [place] a/lip 21 Medical (OMEGA Branch 3-6-9 ORAL) tamsulosin 2020-0 Yes Take by Univ ers 0.4 mg 24 2-14 mouth ity of hr capsule 17:20: daily. [place] [address] Medical Branch om 2020-0 Yes Take by Univers 3/E/linol/a 2-14 mouth. ity of la/oleic/gl 17:20: [place] a/lip 21 Medical (OMEGA Branch 3-6-9 ORAL) tamsulosin 2020-0 Yes Take by Univ ers 0.4 mg 24 2-14 mouth ity of hr capsule 17:20: daily. [place] [address] Medical Branch om 2020-0 Yes Take by Univers 3/E/linol/a 2-14 mouth. ity of la/oleic/gl 17:20: [place] a/lip 21 Medical (OMEGA Branch 3-6-9 ORAL) tamsulosin 2020-0 Yes Take by Univ ers 0.4 mg 24 2-14 mouth ity of hr capsule 17:20: daily. [place] [address] Medical Branch om 2020-0 Yes Take by Univers 3/E/linol/a 2-14 mouth. ity of la/oleic/gl 17:20: [place] a/lip 21 Medical (OMEGA Branch 3-6-9 ORAL) tamsulosin 2020-0 Yes Take by Univ ers 0.4 mg 24 2-14 mouth ity of hr capsule 17:20: daily. [place] [address] Medical Branch om 2020-0 Yes Take by Univers 3/E/linol/a 2-14 mouth. ity of la/oleic/gl 17:20: [place] a/lip 21 Medical (OMEGA Branch 3-6-9 ORAL) tamsulosin 2020-0 Yes Take by Univ ers 0.4 mg 24 2-14 mouth ity of hr capsule 17:20: daily. [place] [address] Medical Branch om 2020-0 Yes Take by Univers 3/E/linol/a 2-14 mouth. ity of la/oleic/gl 17:20: [place] a/lip 21 Medical (OMEGA Branch 3-6-9 ORAL) tamsulosin 2020-0 Yes Take by Univ ers 0.4 mg 24 2-14 mouth ity of hr capsule 17:20: daily. [place] [address] Medical Branch om 2020-0 Yes Take by Univers 3/E/linol/a 2-14 mouth. ity of la/oleic/gl 17:20: [place] a/lip 21 Medical (OMEGA Branch 3-6-9 ORAL) tamsulosin 2020-0 Yes Take by Univ ers 0.4 mg 24 2-14 mouth ity of hr capsule 17:20: daily. [place] [address] Medical Branch om 2020-0 Yes Take by Univers 3/E/linol/a 2-14 mouth. ity of la/oleic/gl 17:20: [place] a/lip 21 Medical (OMEGA Branch 3-6-9 ORAL) tamsulosin 2020-0 Yes Take by Univ ers 0.4 mg 24 2-14 mouth ity of hr capsule 17:20: daily. [place] [address] Medical Branch om 2020-0 Yes Take by Univers 3/E/linol/a 2-14 mouth. ity of la/oleic/gl 17:20: [place] a/lip 21 Medical (OMEGA Branch 3-6-9 ORAL) tamsulosin 2020-0 Yes Take by Univ ers 0.4 mg 24 2-14 mouth ity of hr capsule 17:20: daily. [place] [address] Medical Branch om 2020-0 Yes Take by Univers 3/E/linol/a 2-14 mouth. ity of la/oleic/gl 17:20: [place] a/lip 21 Medical (OMEGA Branch 3-6-9 ORAL) tamsulosin 2020-0 Yes Take by Univ ers 0.4 mg 24 2-14 mouth ity of hr capsule 17:20: daily. [place] [address] Medical Branch om 2020-0 Yes Take by Univers 3/E/linol/a 2-14 mouth. ity of la/oleic/gl 17:20: [place] a/lip 21 Medical (OMEGA Branch 3-6-9 ORAL) tamsulosin 2020-0 Yes Take by Univ ers 0.4 mg 24 2-14 mouth ity of hr capsule 17:20: daily. [place] [address] Medical Branch om 2020-0 Yes Take by Univers 3/E/linol/a 2-14 mouth. ity of la/oleic/gl 17:20: [place] a/lip 21 Medical (OMEGA Branch 3-6-9 ORAL) tamsulosin 2020-0 Yes Take by Univ ers 0.4 mg 24 2-14 mouth ity of hr capsule 17:20: daily. [place] [address] Medical Branch om 2020-0 Yes Take by Univers 3/E/linol/a 2-14 mouth. ity of la/oleic/gl 17:20: [place] a/lip 21 Medical (OMEGA Branch 3-6-9 ORAL) tamsulosin 2020-0 Yes Take by Univ ers 0.4 mg 24 2-14 mouth ity of hr capsule 17:20: daily. [place] [address] Medical Branch om 2020-0 Yes Take by Univers 3/E/linol/a 2-14 mouth. ity of la/oleic/gl 17:20: [place] a/lip 21 Medical (OMEGA Branch 3-6-9 ORAL) tamsulosin 2020-0 Yes Take by Univ ers 0.4 mg 24 2-14 mouth ity of hr capsule 17:20: daily. [place] 21 Medical Branch om 2020-0 Yes Take by Univers 3/E/linol/a 2-14 mouth. ity of la/oleic/gl 17:20: [place] a/lip 21 Medical (OMEGA Branch 3-6-9 ORAL) tamsulosin 2020-0 Yes Take by Univ ers 0.4 mg 24 2-14 mouth ity of hr capsule 17:20: daily. [place] 21 Medical Branch om 2020-0 Yes Take by [facility] 3/E/linol/a 2-14 mouth. ity of la/oleic/gl 17:20: [place] a/lip 21 Medical (OMEGA Branch 3-6-9 ORAL) tamsulosin 2020-0 Yes Take by Univ ers 0.4 mg 24 2-14 mouth ity of hr capsule 17:20: daily. [place] [address] Medical Branch om 2020-0 Yes Take by Univers 3/E/linol/a 2-14 mouth. ity of la/oleic/gl 17:20: [place] a/lip 21 Medical (OMEGA Branch 3-6-9 ORAL) tamsulosin 2020-0 Yes Take by Univ ers 0.4 mg 24 2-14 mouth ity of hr capsule 17:20: daily. [place] [address] Medical Branch tamsulosin 2020-0 Yes Take by Univ ers 0.4 mg 24 2-14 mouth ity of hr capsule 17:20: daily. [place] [address] Medical Branch om 2020-0 Yes Take by Univers 3/E/linol/a 2-14 mouth. ity of la/oleic/gl 17:20: [place] a/lip 21 Medical (OMEGA Branch 3-6-9 ORAL) om 2020-0 Yes Take by Univers 3/E/linol/a 2-14 mouth. ity of la/oleic/gl 17:20: [place] a/lip 21 Medical (OMEGA Branch 3-6-9 ORAL) tamsulosin 2020-0 Yes Take by Univ ers 0.4 mg 24 2-14 mouth ity of hr capsule 17:20: daily. [place] [address] Medical Branch om 2020-0 Yes Take by Univers 3/E/linol/a 2-14 mouth. ity of la/oleic/gl 17:20: [place] a/lip 21 Medical (OMEGA Branch 3-6-9 ORAL) tamsulosin 2020-0 Yes Take by Univ ers 0.4 mg 24 2-14 mouth ity of hr capsule 17:20: daily. [place] [address] Medical Branch om 2020-0 Yes Take by Univers 3/E/linol/a 2-14 mouth. ity of la/oleic/gl 17:20: [place] a/lip 21 Medical (OMEGA Branch 3-6-9 ORAL) tamsulosin 2020-0 Yes Take by Univ ers 0.4 mg 24 2-14 mouth ity of hr capsule 17:20: daily. [place] [address] Medical Branch om 2020-0 Yes Take by Univers 3/E/linol/a 2-14 mouth. ity of la/oleic/gl 17:20: [place] a/lip 21 Medical (OMEGA Branch 3-6-9 ORAL) tamsulosin 2020-0 Yes Take by Univ ers 0.4 mg 24 2-14 mouth ity of hr capsule 17:20: daily. [place] [address] Medical Branch om 2020-0 Yes Take by Univers 3/E/linol/a 2-14 mouth. ity of la/oleic/gl 17:20: [place] a/lip 21 Medical (OMEGA Branch 3-6-9 ORAL) tamsulosin 2020-0 Yes Take by Univ ers 0.4 mg 24 2-14 mouth ity of hr capsule 17:20: daily. [place] [address] Medical Branch om 2020-0 Yes Take by Univers 3/E/linol/a 2-14 mouth. ity of la/oleic/gl 17:20: [place] a/lip 21 Medical (OMEGA Branch 3-6-9 ORAL) tamsulosin 2020-0 Yes Take by Univ ers 0.4 mg 24 2-14 mouth ity of hr capsule 17:20: daily. [place] [address] Medical Branch om 2020-0 Yes Take by Univers 3/E/linol/a 2-14 mouth. ity of la/oleic/gl 17:20: [place] a/lip 21 Medical (OMEGA Branch 3-6-9 ORAL) tamsulosin 2020-0 Yes Take by Univ ers 0.4 mg 24 2-14 mouth ity of hr capsule 17:20: daily. [place] [address] Medical Branch om 2020-0 Yes Take by Univers 3/E/linol/a 2-14 mouth. ity of la/oleic/gl 17:20: [place] a/lip 21 Medical (OMEGA Branch 3-6-9 ORAL) tamsulosin 2020-0 Yes Take by Univ ers 0.4 mg 24 2-14 mouth ity of hr capsule 17:20: daily. [place] [address] Medical Branch om 2020-0 Yes Take by Univers 3/E/linol/a 2-14 mouth. ity of la/oleic/gl 17:20: [place] a/lip 21 Medical (OMEGA Branch 3-6-9 ORAL) tamsulosin 2020-0 Yes Take by Univ ers 0.4 mg 24 2-14 mouth ity of hr capsule 17:20: daily. [place] [address] Medical Branch om 2020-0 Yes Take by Univers 3/E/linol/a 2-14 mouth. ity of la/oleic/gl 17:20: [place] a/lip 21 Medical (OMEGA Branch 3-6-9 ORAL) tamsulosin 2020-0 Yes Take by Univ ers 0.4 mg 24 2-14 mouth ity of hr capsule 17:20: daily. [place] [address] Medical Branch om 2020-0 Yes Take by Univers 3/E/linol/a 2-14 mouth. ity of la/oleic/gl 17:20: [place] a/lip 21 Medical (OMEGA Branch 3-6-9 ORAL) tamsulosin 2020-0 Yes Take by Univ ers 0.4 mg 24 2-14 mouth ity of hr capsule 17:20: daily. [place] [address] Medical Branch om 2020-0 Yes Take by Univers 3/E/linol/a 2-14 mouth. ity of la/oleic/gl 17:20: [place] a/lip 21 Medical (OMEGA Branch 3-6-9 ORAL) tamsulosin 2020-0 Yes Take by Univ ers 0.4 mg 24 2-14 mouth ity of hr capsule 11:20: daily. [place] [address] Medical Branch om 2020-0 Yes Take by Univers 3/E/linol/a 2-14 mouth. ity of la/oleic/gl 11:20: [place] a/lip 21 Medical (OMEGA Branch 3-6-9 ORAL) tamsulosin 2020-0 Yes Take by Univ ers 0.4 mg 24 2-14 mouth ity of hr capsule 11:20: daily. [place] [address] Medical Branch om 2020-0 Yes Take by Univers 3/E/linol/a 2-14 mouth. ity of la/oleic/gl 11:20: [place] a/lip 21 Medical (OMEGA Branch 3-6-9 ORAL) tamsulosin 2019- Yes Take by Univ ers 0.4 mg 24 2-14 mouth ity of hr capsule 11:20: daily. [place] [address] Medical Branch om 2019-0 Yes Take by Univers 3/E/linol/a 2-14 mouth. ity of la/oleic/gl 11:20: [place] a/[facility] 21 Medical (OMEGA Branch 3-6-9 ORAL) tamsulosin 2019-0 Yes Take by [facility] ers 0.4 mg 24 2-14 mouth ity of hr capsule 11:20: daily. [place] [id number] Medical Branch om 2019-0 Yes Take by Univers 3/E/linol/a 2-14 mouth. ity of la/oleic/gl 11:20: [place] [facility] 3-6-9 ORAL) diclofenac 2018-03- No [id number] 75mg Take 1 Univers 75 mg EC 2-27 - 9109 tablet by ity o f tablet 00:00: 05:59 mouth 2 [place] 00 :00 ([facility]) Medical times Branch daily with meals for 60 days. diclofenac 2018-03- No [id number] 75mg Take 1 Univers 75 mg EC 2-27 - 9109 tablet by ity o f tablet 00:00: 05:59 mouth 2 [place] 00 :00 (two) Medical times Branch daily with meals for 60 days. diclofenac 2018-03- No [id number] 75mg Take 1 Univers 75 mg EC 2-27 - 9109 tablet by ity o f tablet 00:00: 05:59 mouth 2 [place] 00 :00 ([facility]) Medical times Branch daily with meals for 60 days. diclofenac 2018-03- No [id number] 75mg Take 1 Univers 75 mg EC 2-27 - 9109 tablet by ity o f tablet 00:00: 05:59 mouth 2 [place] 00 :00 (two) Medical times Branch daily with meals for 60 days. diclofenac Yes [id number] 75mg Take 1 Univers 75 mg EC 8-28 9109 tablet by ity of tablet 00:00: mouth 2 [place] 00 (two) Medical times Branch daily with meals. diclofenac Yes [id number] 75mg Take 1 Univers 75 mg EC 8- 9109 tablet by ity of tablet 00:00: mouth 2 [place] 00 (two) Medical times Branch daily with meals. diclofenac 2018- Yes [id number] 75mg Take 1 Univers 75 mg EC 10-06 9109 tablet by ity of tablet 00:00: mouth 2 [place] 00 (two) Medical times Branch daily with meals. diclofenac 2019- No [id number] 75mg Take 1 Univers 75 mg EC [...] TABLET BY ity of tablet 00:00: MOUTH [place] 00 TWICE Medical DAILY FOR Branch 5 [...] tablet HOURS FOR Branch 7 DAYS predniSONE 2018- Yes TAKE 1 Unive rs [...] No TAKE 1 Uni vers -clavulanat 7-19 -28 TABLET BY it y of e 875-125 00:00: 00:00 MOUTH [place] mg per 00 :00 EVERY 12 Medical tablet HOURS FOR Branch 7 DAYS amoxicillin 2020- No TAKE 1 Uni vers -clavulanat 7-19 -28 TABLET BY it y of e 875-125 [...] Medical DAILY FOR Branch 28 DAYS HYDROcodone 20190 Yes TAKE 1 Univ ers -acetaminop 7-08 [...] TWICE Medical DAILY FOR Branch 28 DAYS traMADol 2017-03 Yes 50mg Q6H Take 50 mg Met hodi (ULTRAM) 50 0-[address] mg tablet 00:00: every 6 Hospi ta 00 (six) l hours as needed. No known No Univers medications ity of [facility] No known No Univers medications ity [facility] atorvastati atorvastati No atorvastat [place] n 20 mg n 20 mg in 20 mg Famil y tablet TAKE tablet TAKE tablet Practic 1 TABLET BY 1 TABLET BY TAKE 1 e MOUTH ONCE MOUTH ONCE TABLET BY DAILY DAILY MOUTH ONCE DAILY diclofenac diclofenac No diclofenac [facility] sodium 75 sodium 75 sodium 75 Family mg mg mg Practic tablet,aisha tablet,aisha tablet,del e yed release yed release ayed TAKE 1 TAKE 1 release TABLET BY TABLET BY TAKE 1 MOUTH TWICE MOUTH TWICE TABLET BY DAILY WITH DAILY WITH MOUTH MEALS MEALS TWICE DAILY WITH MEALS gabapentin gabapentin No 1capsul BID gabapentin [facility] 400 mg 400 mg e(s) 400 mg Family capsule capsule capsule Practi c Take 1 Take 1 Take 1 e capsule capsule capsule twice a day twice a day twice a by oral by oral day by route. route. oral route. hydrocodone [facility] 10 Family mg-acetamin mg-acetamin mg-acetami Practic ophen 325 ophen 325 nophen 325 e mg tablet mg tablet mg tablet Take 1 Take 1 Take 1 tablet tablet tablet every 4 every 4 every 4 hours by hours by hours by oral route. oral route. oral route. hydrocodone [facility] 5 5 e 5 Family mg-acetamin mg-acetamin mg-acetami Practic ophen 325 ophen 325 nophen 325 e mg tablet mg tablet mg tablet TAKE 1 TAKE 1 TAKE 1 TABLET BY TABLET BY TABLET BY MOUTH THREE MOUTH THREE MOUTH TIMES DAILY TIMES DAILY THREE TIMES DAILY metoprolol metoprolol No metoprolol [facility] tartrate 25 tartrate 25 tartrate Family mg tablet mg tablet 25 mg Prac tic TAKE 1 TAKE 1 tablet e TABLET BY TABLET BY TAKE 1 MOUTH TWICE MOUTH TWICE TABLET BY DAILY DAILY MOUTH TWICE DAILY Myrbetriq Myrbetriq No Myrbetriq [facility] 25 mg 25 mg 25 [...] DISPENSING DISPENSING DISPENSING prednisone prednisone No prednisone [place] 5 mg tablet 5 mg tablet 5 [...] DISPENSING DISPENSING DISPENSING tamsulosin tamsulosin No tamsulosin [facility] 0.4 mg 0.4 mg 0.4 mg Family [...] MOUTH ONCE MOUTH ONCE DAILY DAILY DAILY Warfarin Warfarin No 1{table QD Warfarin Sodium 5 MG Sodium 5 MG t} Sodium 5 MG Lipitor 20 Lipitor 20 No 1{table QD Lipitor 20 MG MG t} MG amLODIPine amLODIPine No 1{table QD amLODIPine Besylate 5 Besylate 5 t} Besylate 5 MG MG MG Ditropan XL Ditropan XL Ditropan 5 MG 5 MG 06-15 XL 5 MG 00:00 :00 Immunizations Ordered Immunization Filled Immunization Date Status Commen ts Source Name Name pneumococcal pneumococcal 2019-03-31 Completed [facility] Fa marie polysaccharide PPV23 polysaccharide PPV23 00:00:00 Practice Tdap Tdap 2019-03-07 Completed [facility] Family 00:00:00 Practice Td Td 2018-02-03 Completed [facility] 10:21:00 [facility] Vital Signs Vital Name Observation Time Observation Value Comments Source height 2021-12-17 09:00:00 67.75 [in_i] [facility] weight 2021-12-17 09:00:00 167 [lb_av] [facility] temperature 2021-12-17 09:00:00 97.6 [degF] [facility] bmi 2021-12-17 09:00:00 25.58 kg/m2 [facility] oximetry 2021-12-17 09:00:00 96 % [facility] respiratory rate 2021-12-17 09:00:00 16 /min Comm on [facility] blood pressure 2021-12-17 09:00:00 185 mm[Hg] [facility] - systolic [facility] blood pressure 2021-12-17 09:00:00 75 mm[Hg] [facility] - diastolic [facility] Systolic blood 2021-09-02 02:00:00 165 mm[Hg] Univer sity of pressure [facility] Diastolic blood 2021-09-02 02:00:00 74 mm[Hg] Unive rsity of pressure [facility] Heart rate 2021-09-02 02:00:00 61 /min [facility] Respiratory rate 2021-09-02 02:00:00 20 /min [facility] Oxygen saturation in 2021-09-02 02:00:00 98 /min [facility] Arterial blood by [facility] Pulse oximetry Branch Body temperature 2021-09-01 22:19:00 36.28 Natalie [facility] Body weight 2021-09-01 22:19:00 81.647 kg Universi [facility] BMI 2021-09-01 22:19:00 25.83 kg/m2 [facility] HEIGHT 2021-04-06 12:08:00 180.3 cm WEIGHT 2021-04-06 12:08:00 79.379 kg HEIGHT 2021-04-06 12:08:00 180.3 cm WEIGHT 2021-04-06 12:08:00 79.379 kg HEIGHT 2021-04-06 12:08:00 180.3 cm WEIGHT 2021-04-06 12:08:00 79.379 kg BP Diastolic 2020-03-10 00:00:00 68 mm[Hg] [facility] Height 2020-03-10 00:00:00 68 [in_i] [facility] BMI (Body Mass 2020-03-10 00:00:00 27.4 kg/m2 [facility] e Family Index) Practice BP Systolic 2020-03-10 00:00:00 126 mm[Hg] [facility] Body Weight 2020-03-10 00:00:00 180 [lb_av] [facility] WEIGHT 2020-01-03 04:20:00 [...] 150 mm[Hg] Univer sity of pressure [place] [facility] Diastolic blood 2019-11-07 19:40:00 74 mm[Hg] Unive rsity of pressure [place] [facility] Heart rate 2019-11-07 19:40:00 76 /min Universi ty of [place] [facility] Body temperature 2019-11-07 19:40:00 36.44 Natalie Univ ersity of [place] [facility] Respiratory rate 2019-11-07 19:40:00 18 /min Univ ersity of [place] [facility] Body weight 2019-11-07 19:40:00 81.647 kg Universi ty of [place] [facility] BMI 2019-11-07 19:40:00 25.83 kg/m2 Universi ty of [place] [facility] Systolic blood 2019-11-07 19:40:00 150 mm[Hg] Univer sity of pressure [place] [facility] Diastolic blood 2019-11-07 19:40:00 74 mm[Hg] Unive rsity of pressure [place] [facility] Heart rate 2019-11-07 19:40:00 76 /min Universi ty of [place] [facility] Body temperature 2019-11-07 19:40:00 36.44 Natalie Univ ersity of [place] [facility] Respiratory rate 2019-11-07 19:40:00 18 /min Univ ersity of [place] [facility] Body weight 2019-11-07 19:40:00 81.647 kg Universi ty of [place] [facility] BMI 2019-11-07 19:40:00 25.83 kg/m2 Universi ty of [place] [facility] Systolic blood 2019-09-24 20:24:00 155 mm[Hg] Univer sity of pressure [place] [facility] Diastolic blood 2019-09-24 20:24:00 76 mm[Hg] Unive rsity of pressure [place] [facility] Heart rate 2019-09-24 20:24:00 63 /min Universi ty of [place] [facility] Body temperature 2019-09-24 20:24:00 36.11 Natalie Univ ersity of [place] [facility] Respiratory rate 2019-09-24 20:24:00 18 /min Univ ersity of [place] [facility] Body weight 2019-09-24 20:24:00 82.373 kg Universi ty of [place] [facility] BMI 2019-09-24 20:24:00 26.06 kg/m2 Universi ty of [place] [facility] Systolic blood 2019-09-24 20:24:00 155 mm[Hg] Univer sity of pressure [place] [facility] Diastolic blood 2019-09-24 20:24:00 76 mm[Hg] Unive rsity of pressure [place] [facility] Heart rate 2019-09-24 20:24:00 63 /min Universi ty of [place] [facility] Body temperature 2019-09-24 20:24:00 36.11 Natalie Univ ersity of [place] [facility] Respiratory rate 2019-09-24 20:24:00 18 /min Univ ersity of [place] [facility] Body weight 2019-09-24 20:24:00 82.373 kg Universi ty of [place] [facility] BMI 2019-09-24 20:24:00 26.06 kg/m2 Universi ty of [place] [facility] Systolic blood 2019-09-21 20:41:00 149 mm[Hg] Univer sity of pressure [place] [facility] Diastolic blood 2019-09-21 20:41:00 79 mm[Hg] Unive rsity of pressure [place] [facility] Heart rate 2019-09-21 20:41:00 64 /min Universi ty of [place] [facility] Body temperature 2019-09-21 20:41:00 35.78 Natalie Univ ersity of [place] [facility] Respiratory rate 2019-09-21 20:41:00 18 /min Univ ersity of [place] [facility] Body weight 2019-09-21 20:41:00 81.829 kg Universi ty of [place] [facility] BMI 2019-09-21 20:41:00 25.88 kg/m2 Universi ty of [place] [facility] Systolic blood 2019-09-02 11:05:00 188 mm[Hg] Univer sity of pressure [place] [facility] Diastolic blood 2019-09-02 11:05:00 85 mm[Hg] Unive rsity of pressure [place] [facility] Heart rate 2019-09-02 11:05:00 84 /min Universi ty of [place] [facility] Body temperature 2019-09-02 11:05:00 36.89 Natalie Univ ersity of [place] [facility] Respiratory rate 2019-09-02 11:05:00 16 /min Univ ersity of [place] [facility] Body height 2019-09-02 11:05:00 177.8 cm Universi ty of [place] [facility] Body weight 2019-09-02 11:05:00 79.379 kg Universi ty of [place] [facility] BMI 2019-09-02 11:05:00 25.11 kg/m2 Universi ty of [place] [facility] Oxygen saturation in 2019-09-02 11:05:00 99 /min University of Arterial blood by [facility] ezekiel Pulse oximetry Branch Body temperature 2019-08-10 20:51:00 36.61 Natalie Univ ersity of [place] [facility] Respiratory rate 2019-08-10 20:51:00 22 /min Univ ersity of [place] [facility] Body weight 2019-08-10 20:51:00 80.797 kg Universi ty of [place] [facility] BMI 2019-08-10 20:51:00 27.08 kg/m2 Universi ty of [place] [facility] Oxygen saturation in 2019-08-10 20:51:00 96 /min University of Arterial blood by [facility] ezekiel Pulse oximetry Branch Systolic blood 2019-07-09 15:45:00 131 mm[Hg] Univer sity of pressure [place] [facility] Diastolic blood 2019-07-09 15:45:00 69 mm[Hg] Unive rsity of pressure [place] [facility] Heart rate 2019-07-09 15:45:00 49 /min Universi ty of [place] [facility] Body temperature 2019-07-09 15:45:00 37 Natalie Univ ersity of [place] [facility] Respiratory rate 2019-07-09 15:45:00 20 /min Univ ersity of [place] [facility] Body height 2019-07-09 15:45:00 172.7 cm Universi ty of [place] [facility] Body weight 2019-07-09 15:45:00 82.101 kg Universi ty of [place] [facility] BMI 2019-07-09 15:45:00 27.52 kg/m2 Universi ty of [place] [facility] Oxygen saturation in 2019-07-09 15:45:00 98 /min University of Arterial blood by [facility] ezekiel Pulse oximetry Branch Systolic blood 2019-05-24 18:10:00 132 mm[Hg] Univer sity of pressure [place] [facility] Diastolic blood 2019-05-24 18:10:00 61 mm[Hg] Unive rsity of pressure [place] [facility] Heart rate 2019-05-24 18:10:00 50 /min Universi ty of [place] [facility] Body temperature 2019-05-24 18:10:00 36.56 Natalie Univ ersity of [place] [facility] Respiratory rate 2019-05-24 18:10:00 18 /min Univ ersity of [place] [facility] Body weight 2019-05-24 18:10:00 82.101 kg Universi ty of [place] [facility] BMI 2019-05-24 18:10:00 27.52 kg/m2 Universi ty of [place] [facility] Body temperature 2019-05-04 17:26:00 36.83 Natalie Univ ersity of [facility] Respiratory rate 2019-05-04 17:26:00 20 /min Univ ersity of [facility] Body height 2019-05-04 17:26:00 172.7 cm Universi ty of [place] [facility] [place] Body weight 2019-05-04 17:26:00 79.379 kg Universi ty of [facility] BMI 2019-05-04 17:26:00 26.61 kg/m2 Universi ty of [facility] Oxygen saturation in 2019-05-04 17:26:00 98 /min University of Arterial blood by [facility] Pulse oximetry Branch Systolic blood 2019-05-04 17:26:00 139 mm[Hg] Univer sity of pressure [facility] Diastolic blood 2019-05-04 17:26:00 67 mm[Hg] Unive rsity of pressure [facility] Heart rate 2019-05-04 17:26:00 80 /min Universi ty of [place] [facility] Systolic blood 2019-04-20 17:14:00 135 mm[Hg] Univer sity of pressure [place] [facility] Diastolic blood 2019-04-20 17:14:00 80 mm[Hg] Unive rsity of pressure [place] [facility] Heart rate 2019-04-20 17:14:00 80 /min Universi ty of [facility] Body temperature 2019-04-20 17:14:00 36.67 Natalie Univ ersity of [place] [facility] Respiratory rate 2019-04-20 17:11:00 20 /min Univ ersity of [facility] Body height 2019-04-20 17:11:00 172.7 cm Universi ty of [place] [facility] [place] Body weight 2019-04-20 17:11:00 77.565 [facility] BMI 2019-04-20 17:11:00 26.00 kg/m2 [facility] Oxygen saturation in 2019-04-20 17:11:00 98 /min [facility] Arterial blood by [facility] Pulse oximetry Branch Systolic blood 2018-10-06 13:34:00 127 mm[Hg] Univer sity of [facility] Diastolic blood 2018-10-06 13:34:00 72 mm[Hg] Unive rsity of [facility] Body height 2018-10-06 13:34:00 175.3 cm [facility] Body weight 2018-10-06 13:34:00 81.647 kg [facility] BMI 2018-10-06 13:34:00 26.58 kg/m2 [facility] Heart rate 2021-04-08 11:20:00 64 /min [facility] Respiratory rate 2021-04-08 11:20:00 18 /min [facility] Oxygen saturation in 2021-04-08 11:20:00 97 /min [facility] Arterial blood by Medical nter Pulse oximetry Systolic blood 2021-04-08 07:00:00 142 mm[Hg] [facility] Diastolic blood 2021-04-08 07:00:00 67 mm[Hg] [facility] Body temperature 2021-04-08 07:00:00 36.56 Natalie [facility] Body height 2021-04-06 12:08:00 180.3 cm [facility] Body weight 2021-04-06 12:08:00 79.379 kg [facility] BMI 2021-04-06 12:08:00 24.41 kg/m2 [facility] Procedures Procedure Date / Time Performing Clinician Source Performed EKG-12 LEAD 2021-09-02 02:42:27 Carley Booker [facility] MAGNESIUM 2021-09-01 23:35:00 Carley Booker [facility] TROPONIN I 2021-09-01 23:35:00 Carley Booker [facility] COMP. METABOLIC PANEL 2021-09-01 23:35:00 Carley Booker [facility] ([id number]) Medical Branch CBC WITH DIFF 2021-09-01 23:35:00 Carley Booker [place] [facility] [place] PROTHROMBIN TIME / INR 2021-09-01 23:35:00 Carley Booker [facility] ACTIVATED PARTIAL 2021-09-01 23:35:00 Carley Booker [facility] THRMPLAS [facility] URINALYSIS 2021-09-01 23:35:00 Carley Booker [place] [facility] [place] N-TERMINAL PRO-BNP 2021-09-01 23:35:00 Carley Booker [facility] XR CHEST 1 VW 2021-09-01 23:27:00 Carley Booker [place] [facility] [place] NOTICE OF PRIVACY 2021-09-01 22:21:51 Doctor Unassigned, No Univ [facility] PRACTICES Name Medical Branch CONSENT/REFUSAL FOR 2021-09-01 22:14:42 Doctor Unassigned, No [facility] Name [facility] APTT 2021-04-08 09:10:00 Oscar Mcintyre [facility] CBC W/PLT COUNT & AUTO 2021-04-08 05:18:00 Kwadwo [facility] DIFFERENTIAL [place] CBC W/PLT COUNT & AUTO 2021-04-08 05:18:00 Kwadwo [facility] DIFFERENTIAL [place] COMPREHENSIVE METABOLIC 2021-04-08 05:18:00 Kwadwo [facility] PANEL Center PHOSPHORUS 2021-04-08 05:18:00 Kwadwo [facility] MAGNESIUM 2021-04-08 05:18:00 Kwadwo [facility] PROTHROMBIN TIME/INR 2021-04-08 05:18:00 Alie Hernandez [facility] APTT 2021-04-08 05:18:00 Miguelina [facility] APTT 2021-04-08 01:09:00 [facility] POCT-GLUCOSE METER 2021-04-07 23:21:00 [facility] 2021-04-07 18:08:00 [facility] POCT-GLUCOSE METER 2021-04-07 11:30:00 [facility] 2021-04-07 10:09:00 [facility] POCT-GLUCOSE METER 2021-04-07 06:01:00 [facility] W/PLT COUNT & AUTO 2021-04-07 05:28:00 [facility] CBC W/PLT COUNT & AUTO 2021-04-07 05:28:00 [facility] COMPREHENSIVE METABOLIC 2021-04-07 05:28:00 [facility] PHOSPHORUS 2021-04-07 05:28:00 [facility] MAGNESIUM 2021-04-07 05:28:00 [facility] PROTHROMBIN TIME/INR 2021-04-07 05:28:00 [facility] PO[facility]SE METER 2021-04-06 23:57:00 [facility] 2021-04-06 22:30:00 [facility] 2D ECHO W/ DOPPLER 2021-04-06 12:01:00 Jacquelyn Lashon [facility] (CW/PW/COLOR) [facility] APTT 2021-04-06 09:22:00 Miguelina [facility] CBC W/PLT COUNT & AUTO 2021-04-06 04:38:00 [facility] W/PLT COUNT & AUTO 2021-04-06 04:38:00 [facility] COMPREHENSIVE METABOLIC 2021-04-06 04:38:00 Kwadwo [facility] PANEL Center PHOSPHORUS 2021-04-06 04:38:00 Kwadwo [facility] MAGNESIUM 2021-04-06 04:38[facility]INR 2021-04-06 04:38:00 [facility] APTT 2021-04-06 00:56:00 Miguelina [facility] CT CHEST WITH IV 2021-04-06 00:26:00 Jacquelyn [facility] POCT-GLUCOSE METER 2021-04-05 22:28:00 Miguelina [facility] APTT 2021-04-05 17:54:00 [facility] APTT 2021-04-05 12:01:00 Miguelina [facility] POCT-GLUCOSE METER 2021-04-05 06:43:00 [facility] W/PLT COUNT & AUTO 2021-04-05 04:17:00 Kwadwo, [facility] [place] [facility] CBC W/PLT COUNT & AUTO 2021-04-05 04:17:00 [facility] DIFFERENTIAL [place] COMPREHENSIVE METABOLIC 2021-04-05 04:17:00 Kwadwo [facility] PHOSPHORUS 2021-04-05 04:17:00 [facility]UM 2021-04-05 04:17:00 [facility] PROTHROMBIN TIME/INR 2021-04-05 04:17:00 [facility] APTT 2021-04-05 04:17:00 Miguelina [facility] POCT-GLUCOSE METER 2021-04-05 00:38:00 [facility] 2021-04-04 23:12:36 Unknown, Hl7 [facility] ECG 12-LEAD 2021-04-04 23:12:36 Unknown, [address] ECG 12-LEAD 2021-04-04 23:12:17 Unknown, [address] ECG 12-LEAD 2021-04-04 23:12:17 Unknown, [address] ECG 12-LEAD 2021-04-04 23:12:00 Unknown, 7 [facility] ECG 12-LEAD 2021-04-04 23:12:00 Unknown, [address] CBC W/PLT COUNT & AUTO 2021-04-04 06:03:00 [facility] W/[facility]T COUNT & AUTO 2021-04-04 06:03:00 [facility] COMPREHENSIVE METABOLIC 2021-04-04 06:03:00 Kwadwo [facility] PHOSPHORUS 2021-04-04 06:03:00 [facility] MAGNESIUM 2021-04-04 06:03:00 [facility]TT 2021-04-04 06:03:00 [facility]INR 2021-04-04 06:03:00 Alie Hernandez [facility] HEMOGLOBIN AND 2021-04-03 22:59:00 Miguelina [facility] APTT 2021-04-03 22:59:00 Miguelina [facility] ECG 12-LEAD 2021-04-03 22:17:25 Favian Joyner [facility] ECG 12-LEAD 2021-04-03 22:17:25 Unknown, [address] PLATELET COUNT 2021-04-03 11:50:00 Miguelina [facility] APTT 2021-04-03 11:50:00 Miguelina [facility] CBC W/PLT COUNT & AUTO 2021-04-03 04:26:00 [facility] CBC W/PLT COUNT & AUTO 2021-04-03 04:26:00 [facility] COMPREHENSIVE METABOLIC 2021-04-03 04:26:00 [facility] PHOSPHORUS 2021-04-03 04:26:00 [facility]INR 2021-04-03 04:26:00 [facility] 2021-04-03 04:26:00 [facility] URINALYSIS WITH 2021-04-02 16:55:00 [facility] MICROSCOPIC IF INDICATED Center URINALYSIS MICROSCOPIC 2021-04-02 16:55:00 [facility] CBC W/PLT COUNT & AUTO 2021-04-02 08:46:00 [place], [facility] [place] [facility] BASIC METABOLIC PANEL 2021-04-02 08:46:00 [facility] [place] HEPATIC FUNCTION PANEL 2021-04-02 08:46:00 [facility] [place] PROT[facility]OMBIN TIME/INR 2021-04-02 08:46:00 [facility] [place] [place] CBC W/PLT COUNT & AUTO 2021-04-02 08:46:00 [facility] [place] DIFFERENTIAL [place] EKG-SCANNED 2021-04-02 00:00:00 Betty [facility] AUTHORIZATION FOR 2020-02-18 06:01:00 Doctor Unassigned, No [facility] RELEASE OF PHI Name Medical Branch COMP. METABOLIC PANEL 2019-09-02 11:21:00 [place] Mccall [facility] ([id number]) Medical Branch CBC WITH DIFFERENTIAL 2019-09-02 11:21:00 [place] Mccall [facility] [place] URINALYSIS 2019-09-02 11:21:00 [place] Mccall o f [facility] NOTICE OF PRIVACY 2019-09-02 10:54:46 Doctor Unassigned, No [facility] Name [facility] [place] CONSENT/REFUSAL FOR 2019-09-02 10:54:27 Doctor Unassigned, No [facility] PHYSICIAN ORDERS 2019-05-24 05:01:00 Doctor Unassigned, [facility] AUTO 2019-05-04 17:32:00 Robbie Cook [facility] DISCLOSURE AND CONSENT, 2019-05-04 06:01:00 Doctor Unassigned, N o [facility] MEDICAL AND SURGICAL Name Medical [facility] nch PROCEDURES POCT URINALYSIS AUTO 2019-04-20 17:08:00 Robbie Cook [facility] ASSIGNMENT OF BENEFITS 2019-04-20 16:53:27 Doctor Unassigned, No [facility] REFERRAL- 2018-10-04 05:01:00 Doctor Unassigned, No [facility] REQUEST/RESPONSE [facility] REFUSAL OF NON-MEDICAL 2018-04-20 06:01:00 Doctor Unassigned, No [facility] SERVICES [facility] Plan of Care Planned Activity Planned Date Details Comments Source Future Scheduled Test 2029-03-07 DTAP/TDAP/TD VACCINES [facility] 00:00:00 (2 - Td or Tdap) Medical [facility] [code = DTAP/TDAP/TD VACCINES (2 - Td or Tdap)] Future Scheduled Test 2022-02-17 COVID-19 VACCINE (#1) [facility] 02:52:34 [code = COVID-19 VACCINE (#1)] Future Scheduled Test 2022-02-17 SHINGLES VACCINES (1 [facility] 02:52:34 of 2) [code = SHINGLES VACCINES (1 of 2)] Future Scheduled Test 2022-02-17 65+ PNEUMOCOCCAL Me [facility] 02:52:34 VACCINE (1 - PCV) [code = 65+ PNEUMOCOCCAL VACCINE (1 - PCV)] Future Scheduled Test 2022-02-17 INFLUENZA VACCINE [facility] 02:52:34 [code = INFLUENZA VACCINE] Future Scheduled Test 2021-11-[address] [facility] 00:00:00 (#1) [code = Medical Center INFLUENZA VACCINE (#1)] Future Scheduled Test 2021-03-[address] [facility] 00:00:00 (12+) [code = Medical Center DEPRESSION SCREENING (12+)] Future Scheduled Test 2021-03-07 FALLS RISK SCREENING [facility] 00:00:00 [code = FALLS RISK Medical C enter SCREENING] Future Scheduled Test 2020-03-31 PNEUMOCOCCAL 65+ YRS [facility] 00:00:00 (2 - PCV) [code = Medical Ce nter PNEUMOCOCCAL 65+ YRS (2 - PCV)] Future Scheduled Test 2016-11-[address] [facility] 00:00:00 WELLNESS (YEAR 2 or Medical Center FIRST YEAR if no IPPE) [code = MEDICARE ANNUAL WELLNESS (YEAR 2 or FIRST YEAR if no IPPE)] Future Scheduled Test 1983 SHINGLES VACCINES ([address] [facility] 00:00:00 of 2) [code = Medical Center SHINGLES VACCINES (1 of 2)] Future Scheduled Test [address] [facility] 00:00:00 Counseling and Medical Cente r Screening (12+) [code = Tobacco Cessation Counseling and Screening (12+)] Future Scheduled Test 1933 COVID-19 VACCINE (#1) [facility] 00:00:00 [code = COVID-[address] VACCINE (#1)] Instructions [facility] Encounters Start End Encounter Admission Attending Care Care Encounter Source Date/Time Date/Time Type Type Clinicians Facility Department ID 2021-12-17 Outpatient Perry, [facility] [id number] Common 08:32:02 Shawn [id number] [facility] 2021-01-02 Emergency [facility] [id number] Univers [facility]-02 Emergency [facility] [id number] Univers 03:[facility] 2020-12-10 Inpatient ER RUBEN, [facility] Surgery [id number] SLE 12:16:46 ZOYA 2020-12-[address] [facility] Gastro [id number] [facility] 12[facility]16[facility]10 [facility] 2021-12-17 2021-12-17 OFFICE [facility] [id number] Co mmon 00:00:00 00:00:00 VISIT Spirit ESTAB PT - CHI LEVEL 2 [facility] 2021-09-18 2021-09-18 Outpatient DMG DM [id number]- [facility]oted 03:02:00 03:02:00 [id number] Medica l Group 2021-09-01 2021-09-02 Emergency X ADE, K [facility] ERT [id number] Univers 17:21:00 01:51:00 ity of [facility] 2021-09-01 2021-09-02 Emergency Ade, Carley [facility] 1.2.840.114 [id number] Univers 17:21:00 01:51:00 Analy JONES 350.1.13.10 i ty of [place] 4.2.7.2.686 [facility] [id number] [facility] 084 Branch 2021-09-01 2021-09-01 Orders Doctor NIRAV 1.2.840.114 [id number] Univers 00:00:00 00:00:00 Only Unassigned, KENNETH 350.1.13.10 ity of [place] [facility] 4.2.7.2.686 Bran [id number] [facility] 009 Branch 2021-06-03 2021-06-03 Outpatient DMG DMG [id number]- [facility] 04:03:00 04:03:00 Medica l Group 2021-05-22 2021-05-22 Outpatient DMG DMG [id number] [facility] 12:01:00 12:01:00 [id number] Medica l Group 2021-05-13 2021-05-13 Outpatient DMG DMG [id number]- [facility] 12:00:00 12:00:00 Medica l Group 2021-04-02 2021-04-08 [facility] Queenie Hammond [facility] [id number] [facility] 05:31:00 12:45:00 [facility] 2021-04-02 2021-04-08 [facility] Urology [id number] [facility] 05:31:00 12:45:00 DAVID 2021-04-06 2021-04-06 Outpatient [facility] [id number] [facility] 00:00:00 23:59:00 Miranda Medicaurelio holm 2021-04-03 2021-04-[address] [facility] [id number] [facility] 00:00:00 00:00:00 [facility] 2021-01-07 2021-01-07 Telephone [facility] 1.2.840.114 [id number] Univers 00:00:00 00:00:00 Eduardo L HEALTH 350.1.13.10 it y of [place] 4.2.7.2.686 Bran as ARISTEO?BLEA [id number] Ar delia THOMAS [address] [place] [address] OFFICE [facility] 2021-01-05 2021-01-05 Telephone [facility] 1.2.840.114 [id number] Univers 00:00:00 00:00:00 Eduardo Sandhu HEALTH 350.1.13.10 it y of [place] 4.2.7.2.686 Bran as ARISTEO?BLEA [phone] Ar delia THOMAS 198 [facility] 2020-10-14 2020-10-14 [facility]phone [facility] 1.2.840.114 [id number] Univers 00:00:00 00:00:00 Eduardo Sandhu Health 350.1.13.10 it y of Surgical 4.2.7.2.686 Bran as Specialti [phone] Ar dical es 198 [facility] 2020-10-09 2020-10-09 Telephone [facility] 1.2.840.114 [id number] Univers 00:00:00 00:00:00 Eduardo L Health 350.1.13.10 it y of Surgical 4.2.7.2.686 Bran as Specialti [id number] Ar dical es 198 [facility] 2020-09-11 2020-09-11 Refradha Horn [facility] 1.2.840.114 [id number] Univers 00:00:00 00:00:00 Marquis S Health 350.1.13.10 it y of Surgical 4.2.7.2.686 Bran as Specialti [id number] Me dical es 198 Branch [employer] 2020-08-14 2020-08-14 Refradha Horn [facility] 1.2.840.114 [id number] Univers 00:00:00 00:00:00 [facility] 350.1.13.10 it y of Surgical 4.2.7.2.686 Bran as Specialti [id number] Me dical es 198 [address] [employer] 2020-07-07 2020-07-07 Telephone [facility] 1.2.840.114 [id number] 00:00:00 00:00:00 [facility] Health 350.1.13.10 Surgical 4.2.7.2.686 Specialti [id number] es 198 [employer] 2020-07-07 2020-07-07 Telephone [facility] 1.2.840.114 [id number] [facility] 00:00:00 00:00:00 [facility] Health 350.1.13.10 it y of Surgical 4.2.7.2.686 Bran as Specialti [id number] Ar dical es 198 [address] [employer] 2020-06-12 2020-06-12 Outpatient Ajibade_O_A VFP VFP [id number] [facility] 10:56:00 10:56:00 H 80151 [facility] 2020-05-26 2020-05-26 Telephone [facility] 1.2.840.114 [id number] 00:00:00 00:00:00 [facility] Health 350.1.13.10 Surgical 4.2.7.2.686 Specialti [id number] es 198 [employer] 2020-05-26 2020-05-26 Telephone [facility] 1.2.840.114 [id number] [facility] 00:00:00 00:00:00 [facility] Health 350.1.13.10 it y of Surgical 4.2.7.2.686 Bran as Specialti [id number] Me dical es 198 [address] [employer] 2020-03-20 2020-03-20 Outpatient Ajibade_O_A VFP VFP [id number] [facility] 05:22:00 05:22:00 H 14396 Family Practic e 2020-03-20 2020-03-20 Outpatient Ajibade_O_A VFP VFP 796 [id number] [facility] 05:22:00 05:22:00 H 49664 Family Practic e 2020-03-20 2020-03-20 Outpatient Ajibade_O_A VFP VFP 796 294-202 [facility] 05:22:00 05:22:00 H 73179 Family Practic e 2020-03-20 2020-03-20 Telephone [facility] 1.2.337.873 [id number] 00:00:00 00:00:00 [facility] 350.1.13.10 Surgical 4.2.7.2.686 Specialti [phone] es 198 [employer] 2020-03-20 2020-03-20 Telephone [facility] 1.2.737.403 [id number] [facility] 00:00:00 00:00:00 [facility] 350.1.13.10 it y of Surgical 4.2.7.2.686 Bran as Specialti [phone] Ar dical es 198 [address] [employer] 2020-03-10 2020-03-10 Outpatient Ajibade_O_A VFP VFP 796 [id number] [facility] 11:19:00 11:19:00 H 23024 Family Practic e 2020-03-10 2020-03-10 [facility] [place] [facility] [id number] V illage 00:00:00 00:00:00 Leo Sanchez Famil y FLUME TENDER: 9235 Medical - Pract norm Arteaga, [email or web address]_ e [address] [phone] , Ph. 2020-02-18 2020-02-18 Orders Doctor NIRAV 1.2.840.114 [id number] 00:00:00 00:00:00 Only UnassignedKENNETH 350.1.13.10 [place] [facility] 4.2.7.2.686 [id number] 2020-02-18 2020-02-18 Orders Doctor GASTELUM 1.2.840.114 [id number] [facility] 00:00:00 00:00:00 Only UnassignedKENNETH 350.1.13.10 [facility] 4.2.7.2.686 Bran as [phone] [address] 2020-01-28 2020-01-28 Telephone Kory [facility] 1.2.831.833 [id number] 00:00:00 00:00:00 [facility] 350.1.13.10 Surgical 4.2.7.2.686 Specialti [phone] [address] 2020-01-28 2020-01-28 [place] Kory [facility] 1.2.850.125 [id number] Univers 00:00:00 00:00:00 [facility] 350.1.13.10 it y of Surgical 4.2.7.2.686 Bran as Specialti [phone] Ar pemaal [address] 2019-12-28 2019-12-28 Emergency ER [facility] Emergency [id number] [facility] 20:07:00 20:07:00 2019-12-21 2019-12-21 [place] Joyce [facility] 1.2.840.114 [id number] 00:00:00 00:00:00 [facility] 350.1.13.10 [place] 4.2.7.2.686 Professio [phone] [address] 2019-12-21 2019-12-21 [place] Joyce [facility] 1.2.840.114 [id number] Univers 00:00:00 00:00:00 [facility] 350.1.13.10 i ty of [place] [phone] Ar dical [address] 2019-12-20 2019-12-20 Outpatient R JOYCE [facility] [id number] Univers 09:30:00 09:30:00 ROBBIE ity [facility] 2019-12-10 2019-12-10 Outpatient R JOYCE [facility] [id number] Univers 15:15:00 15:15:00 ROBBIE ity [facility] 2019-12-07 2019-12-07 Outpatient R JOYCE [facility] [id number] Univers 13:00:00 13:00:00 ROBBIE ity [facility] 2019-12-07 2019-12-07 Nurse Nurse, [facility] 1.2.840.114 [id number] 10:38:50 11:10:03 Visit Surgery Gu [employer] 350.1.13.10 [place] 4.2.7.2.686 Professio [phone] [address] 2019-12-07 2019-12-07 Nurse Nurse, [facility] Surgery [facility] 1.2. 840.114 [id number] [facility] 10:38:50 11:10:03 Visit Robbie Cook 350.1.13.10 ity of [place].2.[place] [phone] [address] 2019-11-20 2019-11-20 Nurse Nurse, [facility] 1.2.840.114 [id number] 13:06:00 13:52:14 Visit Surgery Gu [employer] 350.1.13.10 [place] 4.2.7.2.686 Professio [phone] [address] 2019-11-20 2019-11-20 Nurse Nurse, [facility] Surgery [facility] 1.2. 840.114 [id number] [facility] 13:06:00 13:52:14 Visit Robbie Cook 350.1.13.10 ity of [place].7.2.[place] [phone] [address] 2019-11-20 2019-11-20 Outpatient R JOYCE [facility] [id number] [facility] 13:00:00 13:00:00 ROBBIE ity [facility] 2019-11-07 2019-11-07 Nurse Nurse, [facility] 1.2.840.114 [id number] 14:34:31 14:49:31 Visit Surgery Gu [employer] 350.1.13.10 [place] 4.2.7.2.686 Professio [phone] [address] 2019-11-07 2019-11-07 Nurse Nurse, [facility] Surgery [facility] 1.2. 840.114 [id number] Univers 14:34:31 14:49:31 Visit Alzweri, Robbie [employer] 350.1.13.10 ity of [place] 4.2.7.2.[place] [phone] Ar dic[address] 2019-11-07 2019-11-07 Outpatient R [facility] [id number] Univers 14:15:00 14:15:00 ity [facility] 2019-11-07 2019-11-07 Outpatient R [facility] [id number] Univers 11:00:00 11:00:00 ity [facility] 2019-11-01 2019-11-01 Outpatient Ajibade_O_A VFP VFP 796 [facility]202 [facility] 04:47:00 04:47:00 H 51872 Family Practic e 2019-09-24 2019-09-24 Office [facility] 1.2.840.114 [id number] 15:17:44 17:03:35 Visit [facility] [employer] 350.1.13.10 [place] 4.2.7.2.686 Professio [phone] [address] 2019-09-24 2019-09-24 Office [facility] 1.2.840.114 [id number] Univers 15:17:44 17:03:35 Visit Robbie [employer] 350.1.13.10 i ty of [place] 4.2.7.2.[place] [phone] [address] 2019-09-24 2019-09-24 [facility]patient [facility] [id number] Univers 16:00:00 16:00:00 ROBBIE ity [facility] 2019-09-21 2019-09-21 Office [facility] 1.2.840.114 [id number] Univers 15:33:57 16:14:10 Visit Robbie [employer] 350.1.13.10 i ty of [place] 4.2.7.2.[place] [phone] [address] 2019-09-21 2019-09-21 Outpatient R [facility] [id number] Univers 16:00:00 16:00:00 ROBBIE ity [facility] 2019-09-19 2019-09-19 Nurse Nurse, Adc Surgery [facility] 1.2. 840.114 [id number] Univers 10:50:18 11:21:35 Visit TheodoreRobbie talley 350.1.13.10 ity of [place] 4.2.7.2.686 [place] [facility] [phone] Me dical nal 204 [facility] 2019-09-19 2019-09-19 Outpatient R [facility] [id number] Univers 10:45:00 10:45:00 ity of [facility] 2019-09-17 2019-09-17 Refill [facility] 1.2.455.183 [id number] 00:00:00 00:00:00 [facility] [employer] 350.1.13.10 Surgical 4.2.7.2.686 Specialti [phone] es 198 [employer] 2019-09-17 2019-09-17 [facility]ill [facility] 1.2.326.333 [id number] Univers 00:00:00 00:00:00 Eduardo [employer] 350.1.13.10 it y of Surgical 4.2.7.2.686 Bran as Specialti [phone] Ar dical es 198 [facility] 2019-09-02 2019-09-02 Emergency [facility] 1.2.808.240 [id number] Univers 05:59:14 07:38:00 Ch[place] Jones 350.1.13.10 i ty of [place] 4.2.7.2.686 [place] [phone] [facility] 084 [place] 2019-09-02 2019-09-02 Orders Doctor NIRAV 1.2.840.114 [id number] Univers 00:00:00 00:00:00 Only Unassigned, KENNETH 350.1.13.10 ity of [place] [facility] 4.2.7.2.686 Bran as [phone] [facility] 009 [place] 2019-08-30 2019-08-30 Telephone [facility] 1.2.840.114 [id number] Univers 00:00:00 00:00:00 Eduardo Sandhu [employer] 350.1.13.10 it y of Surgical 4.2.7.2.686 Bran as Specialti [phone] Ar dical es 198 [facility] 2019-08-24 2019-08-24 [facility] [id number] Univers 14:00:00 14:00:00 ROBBIE ity [facility] 2019-08-10 2019-08-10 Office [facility] 1.2.840.114 [id number] Univers 15:15:27 16:21:06 Visit [facility] 350.1.13.10 i ty of [place] 4.2.7.2.[place] [phone] Ar dical nal 204 [facility] 2019-08-10 2019-08-10 [facility] [id number] Univers 16:00:00 16:00:00 ROBBIE ity [facility] 2019-07-23 2019-07-23 [facility] [id number] Univers 10:00:00 10:00:00 ROBBIE ity [facility] 2019-07-09 2019-07-09 Office [facility] 1.2.840.114 [id number] Univers 10:27:37 11:55:27 Visit [facility] 350.1.13.10 i ty of [place] 4.2.7.2.[place] [phone] [address] 2019-07-09 2019-07-09 [facility] [id number] Univers 11:00:00 11:00:00 ROBBIE ity [facility] 2019-07-04 2019-07-04 Outpatient R [facility] [id number] Univers 09:00:00 09:00:00 ity of [facility] 2019-07-03 2019-07-03 Outpatient R [facility] [id number] Univers 10:00:00 10:00:00 ity [facility] 2019-07-03 2019-07-03 Nurse Nurse, Adc Surgery [facility] 1.2. 840.114 [id number] Univers 09:29:30 09:53:59 Visit Robbie Cook [employer] 350.1.13.10 ity of [place] 4.2.7.2.[place] [phone] Ar dical nal 204 [facility] 2019-06-18 2019-06-18 Telephone Juanita [facility] 1.2.840.114 [id number] Univers 00:00:00 00:00:00 Eduardo Sandhu [facility] 350.1.13.10 it y of Surgical 4.2.7.2.686 Bran as Specialti [phone] Ar dical es 198 [facility] 2019-06-06 2019-06-06 Nurse Nurse, Adc Surgery [facility] 1.2. 840.114 [id number] Univers 09:58:45 10:28:51 Visit Robbie Cook 350.1.13.10 ity of [place] 4.2.7.2.[place] [phone] Ar dical nal 204 [facility] 2019-06-06 2019-06-06 [facility] [id number] Univers 09:45:00 09:45:00 ROBBIE ity [facility] 2019-06-06 2019-06-06 Telephone [facility] 1.2.046.726 [id number] Univers 00:00:00 00:00:00 Gloria Fernandez Mireille 350.1.13.10 ity of [place] 4.2.7.2.[place] [phone] Ar dical nal 377 [facility] 2019-05-24 2019-05-24 Outpatient [facility] [id number] Univers 16:15:00 16:15:00 ROBBIE ity [facility] 2019-05-24 2019-05-24 Office [facility] 1.2.840.114 [id number] Univers 12:43:32 14:03:24 Visit Robbie Jones 350.1.13.10 i ty of [place] 4.2.7.2.[place] [phone] Ar dical [facility] 204 [facility] 2019-05-24 2019-05-24 Outpatient [facility] [id number] Univers 13:00:00 13:00:00 ROBBIE ity [facility] 2019-05-24 2019-05-24 Orders Doctor NIRAV 1.2.840.114 [id number] Univers 00:00:00 00:00:00 Only Unassigned, KENNETH 350.1.13.10 ity [place] HOSPITAL 4.2.7.2.686 Bran as [id number] [address] 2019-05-21 2019-05-21 Telephone [facility] 1.2.840.114 [id number] Univers 00:00:00 00:00:00 [facility] 350.1.13.10 it y of Surgical 4.2.7.2.686 [place] as Specialti [phone] Ar dical es 198 [facility] 2019-05-04 2019-05-04 Office Joyce [facility] 1.2.840.114 [id number] Univers 11:01:36 12:30:18 Visit Rm, Adc Surg Spec Procedure [employer] 3 50.1.13.10 ity of [place] 4.2.7.2.[place] [phone] Ar dical nal 204 [facility] 2019-05-04 2019-05-04 Outpatient [facility] [id number] Univers 11:00:00 11:00:00 ROBBIE ity [facility] 2019-05-04 2019-05-04 Orders Doctor NIRAV 1.2.840.114 [id number] Univers 00:00:00 00:00:00 Only Unassigned, KENNETH 350.1.13.10 it[place] HOSPITAL 4.2.7.2.686 Bran as [phone] [address] 2019-04-25 2019-04-25 Outpatient [facility] [id number] [facility] 07:22:00 07:22:00 _J_ 47772 Family Practic e 2019-04-24 2019-04-24 Outpatient PAUL, [facility] [id number] [place] 00:00:00 00:00:00 JULIET Martinez [facility] 2019-04-23 2019-04-23 Telephone [facility] 1.2.840.114 [id number] Univers 00:00:00 00:00:00 [facility] 350.1.13.10 i ty of [place] 4[place].2.[place] [phone] Ar dicmd nal [address] [place] [address] 2019-04-20 2019-04-20 Outpatient R JOYCE [facility] [id number] Univers 11:00:00 12:03:25 ROBBIE ity of [facility] 2019-04-20 2019-04-20 [facility] 1.2.840.114 [id number] Univers 10:57:47 12:03:25 Visit [facility] 350.1.13.10 i ty of [place] 4.2.7.2.[place] [phone] Ar dicmd nal [address] [place] [address] 2019-04-20 2019-04-20 Orders Doctor GASTELUM 1.2.840.114 [id number] Univers 00:00:00 00:00:00 Only Unassigned, KENNETH 350.1.13.10 it[place] HOSPITAL 4.2.7.2.686 Bran as [phone] [address] 2018-10-31 2018-10-31 [facility] 1.2.179.020 [id number] Univers 00:00:00 00:00:00 Ku 350.1.13.10 it y of Surgical 4.2.7.2.686 Bran as Specialti [phone] Ar dical es 198 [facility] 2018-10-06 2018-10-06 Office [facility] 1.2.836.467 [id number] Univers 08:24:12 09:20:41 Visit EduardoPact 350.1.13.10 it y of Surgical 4.2.7.2.686 Bran as Specialti [phone] Ar dical es 198 [facility] 2018-10-04 2018-10-04 Orders Doctor NIRAV 1.2.840.114 [id number] Univers 00:00:00 00:00:00 Only Unassigned, KENNETH 350.1.13.10 ity [place] HOSPITAL 4.2.7.2.686 Bran as [phone] [address] 2018-04-20 2018-04-20 Orders Doctor GASTELUM 1.2.840.114 [id number] Univers 00:00:00 00:00:00 Only Unassigned, KENNETH 350.1.13.10 [facility] [place] [facility] 4.2.7.2.686 Bran as [phone] [place] [id number] [address] 2015-02-10 2015-02-10 Outpatient [facility] [id number] [facility] 16:05:13 17:30:32 LASHON holm of [...] 32.2 g/dL 31.2-35.0 RDW-SD (test code = 78483-4) 43.8 fL 38.5-51.6 RDW-CV (test code = 788-0) 12.9 % 12.1-15.4 PLT (test code = 777-3) See_Comment [Au tomated message] The system which ge nerated this result transmit dena reference range: 150 - 32 8 10*3/?L. The reference range was not used to interpret th is result as normal/abnormal . MPV (test code = 47218-7) 11.2 fL 9.8-13.0 NRBC/100 WBC (test code = See_Comment [ Automated message] The [id number]) system which [employer] nerated this result transmit dena reference range: 0.0 - 10 .0 /100 WBCs. The reference r nela was not used to interpr et this result as normal/abnor mal. NRBC x10^3 (test code = <0.01 See_Comment [Au tomated message] The 8403178384) system which [employer] nerated this result transmit dena reference range: 10*3/?L. The reference range was not u sed to interpret this result as normal/abnormal . SEG % (test code = 85723-5) 36 % 33-76 BAND % (test code = 62485-8) 2 % 0-1 H LYMPH % (test code = 50 % 14-54 93642-9) MONO % (test code = 28729-4) 7 % 0-4 H EOS % (test code = 44481-0) 5 % 0-3 H ANC (test code = 753-4) 3.25 10*3/uL 1.99-6.95 Lab Interpretation (test Abnormal code = 00054-4) [facility] [id number] 00:12:52 Test Item Value Reference Interpretation Comments Range TROPONIN I (test 0.004 ng/mL See_Comment [Automated code = 8146377636) message] The system which generated this result [...] biotin. Lab Interpretation Normal (test code = 39406-8) [facility] [id number] 00:09:50 Test Item Value Reference Range Interpretation Comments NT-proBNP (test code 774 pg/mL See_Comment H [Autom ated = 7014520003) message] The system which generated this result transmitted reference range : <=450. The reference range was not used to interpret this result as normal/abnormal . JETT (test code = JETT) Biotin has been reported to cause a negative bias, interpret results relative to patient's use of biotin. Lab Interpretation Abnormal (test code = 59329-0) [facility]ACTIV[facility] PARTIAL THRMPLAS [id number] 00:03:30 Test Item Value Reference Range Interpretation Comments APTT Patient (test See_Comment [Automat ed code = 3173-2) message] The system which generated this result transmitted reference range : 23 - 38 Seconds . The reference range was not used to interpr et this result as normal/abnormal . JETT (test code = JETT) The [facility] patient population mean normal value for aPTT is 30 seconds. Lab Interpretation Normal (test code = 90002-8) [facility]2022-06-29 00:02:09 Test Item Value Reference Range Interpretation Comments MAGNESIUM (test code = 3209313268) 2.1 mg/dL 1.7-2.4 Lab Interpretation (test code = Normal 21116-3[facility]-02 00:01:48 Test Item Value Reference Range Interpretation Comments NA (test code = 142 mmol/L 135-145 4896777915) K (test code = 4.1 mmol/L 3.5-5.0 7415071609) CL (test code = 107 mmol/L 98-108 6875541273) CO2 TOTAL (test code = 27 mmol/L 23-31 9968605427) AGAP (test code = 2-16 6018142496) BUN (test code = 21 mg/dL 7-23 4043831442) GLUCOSE (test code = 135 mg/dL 70-110 H 0902098927) CREATININE (test code = 1.08 mg/dL 0.60-1.25 5236376602) TOTAL BILI (test code = 0.5 mg/dL 0.1-1.3 9902693266) CALCIUM (test code = 8.7 mg/dL 8.6-10.6 1906685810) T PROTEIN (test code = 6.3 g/dL 6.3-8.2 1959671817) ALBUMIN (test code = 3.8 g/dL 3.5-5.0 0784949039) ALK PHOS (test code = 77 U/L 34-122 1373372294) ALTv (test code = 23 U/L 5-50 1742-6) AST(SGOT) (test code = 29 U/L 13-40 6799578007) eGFR (test code = mL/min/1.73m2 8069029056) JETT (test code = JETT) Association of [...] tests). Lab Interpretation Abnormal (test code = 14725-5) [facility] CampusProthrombin Time / [id number] 00:01:28 Test Item Value Reference Range Interpretation Comments PROTIME PATIENT (test See_Comment H [Auto mated message] code = 5964-2) The system [employer] ich generated this result transmitted ref erence range: 12.0 - 1 4.7 Seconds. The reference range was not used to int erpret this result as normal/abnormal . INR (test code = 6301-6) Nor mal INR <1.1; Warfarin Therap eutic range 2.0 to 3. 0 or 2.5 to 3.5, dep ending upon the indica tions. Lab Interpretation (test Abnormal code = 63657-7) [facility]PTT20[facility] 09:31:43 Test Item Value Reference Range Interpretation Comments PTT (test code = 87.5 See_Comment H [Automated message] 01358-2) The system [employer] h generated this result transmitted ref erence range: 22.5 - 3 6.0 seconds. The reference range was not used to int erpret this result as normal/abnormal . Lab Interpretation (test Abnormal code = 61603-6) [facility] 09:31:43 Test Item Value Reference Range Interpretation Comments PARTIAL THROMBOPLASTIN TIME 87.5 seconds 22.5-36.0 H (BEAKER) (test code = 760) Njzaqdrli9586-48-67 07:07:31 Test Item Value Reference Range Interpretation Comments Magnesium (test code = 2.0 mg/dL 1.6-2.6 54243-9) JETT (test code = JETT) Admissions Rn ID - MERON Sandhu Lab Interpretation (test Normal code = 41316-2) [facility] 07:07:31 Test Item Value Reference Range Interpretation Comments Phosphorus (test code = 3.9 mg/dL 2.3-4.7 2777-1) JETT (test code = JETT) Admissions Rn ID - MERON L Lab Interpretation (test Normal code = 34287-6) [facility]20[facility] 07:07:31 Test Item Value Reference Range Interpretation Comments MAGNESIUM (BEAKER) (test code = 2.0 mg/dL 1.6-2.6 627) Admissions Rn ID - MERON HARTMANQVDOFZGODKH7901-44-44 07:07:31 Test Item Value Reference Range Interpretation Comments PHOSPHORUS (BEAKER) (test code = 3.9 mg/dL 2.3-4.7 604) Admissions Rn ID - PIENRIKE LComprehensive metabolic ohnww1250-88-00 07:07:30 Test Item Value Reference Range Interpretation Comments Protein, Total (test 6.0 See_Comment [Autom ated code = 2885-2) message] The system which generated this result transmit dena reference range : 6.0 - 8.3 gm/dL . The reference range was not u sed to interpret th is result as normal/abnormal . Albumin (test code = 3.4 g/dL 3.5-5.0 L 04135-7) Alkaline Phosphatase 53 U/L 40-150 (test code = 6768-6) Total Bilirubin (test 0.7 mg/dL 0.2-1.2 code = 1975-2) Sodium (test code = 141 meq/L 220-637 0468-2) Potassium (test code 3.9 meq/L 3.5-5.1 = 2823-3) Chloride (test code = 111 meq/L 98-107 H 2075-0) CO2 (test code = 25 meq/L 22-29 2028-9) BUN (test code = 15 mg/dL 7-21 3094-0) Creatinine (test code 0.83 mg/dL 0.57-1.25 = 2160-0) Glucose (test code = 97 mg/dL 70-105 2345-7) Calcium (test code = 8.8 mg/dL 8.4-10.2 06555-4) AST (test code = 18 U/L 5-34 1920-8) ALT (test code = 16 U/L 6-55 1742-6) EGFR (test code = 87 mL/min/1.73 [place] [address]-1) NOT ACCURATE CREATININE CLEARANCE IN PREDICTING GLOMERULAR FILTRATION RATE . ESTIMATED GFR I S NOT APPLICABLE FOR DIALYSIS PATIEN TS. JETT (test code = JETT) Admissions Rn ID - PIAYA L Lab Interpretation Abnormal (test code = 54009-8) [facility] HospitalCOMPREHENSIVE METABOL[facility] [id number] 07:07:30 Test Item Value Reference Range Interpretation [...] S NOT APPLICABLE FOR DIALYSIS PATIEN TS. Admissions Rn ID - PIAYA [id number] 06:38:29 Test Item Value Reference Range Interpretation Comments PARTIAL THROMBOPLASTIN TIME 115.6 seconds 22.5-36.0 H (BEAKER) (test code = 760) CBC with platelet count + automated [id number] 06:16:50 Test Item Value Reference Range Interpretation Comments WBC (test code = 6690-2) 8.1 See_Comment [A utomated message] The system [employer] generated this result transmitted ref erence range: 3.5 - 10 .5 K/L. The refe rence range was not u sed to interpret this result as normal/abnor mal. RBC (test code = 789-8) 4.07 See_Comment L [Au tomated message] The system [employer] generated this result transmitted ref erence range: 4.63 - 6 .08 M/L. The refe rence range was not u sed to interpret this result as normal/abnor mal. MCHC (test code = 786-4) 32.2 See_Comment L [A utomated message] The system [employer] generated this result transmitted ref erence range: 32.3 - 3 6.5 GM/DL. The refe rence range was not u sed to interpret this result as normal/abnor mal. Hematocrit (test code = 38.5 % 40.1-51.0 L 4544-3) MCV (test code = 787-2) 94.6 fL 79.0-92.2 H MCH (test code = 785-6) 30.5 pg 25.7-32.2 RDW (test code = 788-0) 13.2 % 11.6-14.4 Platelets (test code = 180 See_Comment [Aut omated message] 777-3) The system [employer] generated this result transmitted ref erence range: 150 - 45 0 K/CU MM. The referen ce range was not u sed to interpret this result as normal/abnor mal. MPV (test code = 11.2 fL 9.4-12.4 31580-6) nRBC (test code = 413) 0 See_Comment [Aut omated message] The system [employer] generated this result transmitted ref erence range: 0 - 0 /1 00 WBC. The refere nce range was not u sed to interpret this result as normal/abnor mal. % Neutros (test code = 51 % 429) % Lymphs (test code = 35 % 430) % Monos (test code = 8 % 431) % Eos (test code = 432) 5 % % Baso (test code = 437) 1 % # Neutros (test code = 4.09 See_Comment [Aut omated message] 670) The system [employer] generated this result transmitted ref erence range: 1.78 - 5 .38 K/L. The refe rence range was not u sed to interpret this result as normal/abnor mal. # Lymphs (test code = 2.81 See_Comment [Auto mated message] 414) The system [employer] generated this result transmitted ref erence range: 1.32 - 3 .57 K/L. The refe rence range was not u sed to interpret this result as normal/abnor mal. # Monos (test code = 0.65 See_Comment [Autom ated message] 415) The system [employer] generated this result transmitted ref erence range: 0.30 - 0 .82 K/L. The refe rence range was not u sed to interpret this result as normal/abnor mal. # Eos (test code = 416) 0.40 See_Comment [Au tomated message] The system [employer] generated this result transmitted ref erence range: 0.04 - 0 .54 K/L. The refe rence range was not u sed to interpret this result as normal/abnor mal. # Baso (test code = 417) 0.09 See_Comment H [A utomated message] The system [employer] generated this result transmitted ref erence range: 0.01 - 0 .08 K/L. The refe rence range was not u sed to interpret this result as normal/abnor mal. Immature 1 % 0-1 Granulocytes-Relative (test code = 2801) Lab Interpretation (test Abnormal code = 70039-3) [facility] W/PLT COUNT & AUTO [id number] 06:16:50 Test Item Value Reference Range Interpretation [...] 0-1 PERCENT (BEAKER) (test code = 2801) Daily Prothrombin time/INR while on mwllpilq7234-72-20 06:13:51 Test Item Value Reference Interpretation Comments Range Protime (test code = 20.5 See_Comment H [Autom ated 1492-2) message] The system which generated this result transmitted reference range : 11.9 - 14.2 seconds. The reference range was not used to interpret this result as normal/abnormal . INR (test code = 1.78 See_Comment [Automated 4051-6) message] The system which generated this result transmitted reference range : <=5.90. The reference range was not used to interpret this result as normal/abnormal . JETT (test code = RECOMMENDED JETT) COUMADIN/WARFARIN INR THERAPY RANGESSTANDARD DOSE: 2.0 - 3.0 Includes: PROPHYLAXIS for venous thrombosis, systemic embolization; TREATMENT for venous thrombosis and/or pulmonary embolus.HIGH RISK: Target INR is 2.5-3.5 for patients with mechanical heart valves. Lab Interpretation Abnormal (test code = 78540-6) [facility] HospitalPROTHROMBIN TIME/[id number] 06:13:51 Test Item Value Reference Range Interpretation Comments PROTIME (BEAKER) 20.5 seconds 11.9-14.2 H (test code = 759) INR (BEAKER) (test 1.78 See_Comment [Automat ed message] code = 370) The system [employer] generated this result transmitted ref erence range: <=5.90. The reference range was not used to int erpret this result as normal/abnormal . RECOMMENDED COUMADIN/WARFARIN INR THERAPY RANGESSTANDARD DOSE: 2.0 - 3.0 Includes: PROPHYLAXIS for venous thrombosis, systemic embolization; TREATMENT for venous thrombosis and/or pulmonary embolus.HIGH RISK: Target INR is 2.5-3.5 for patients with mechanical heart valves.[id number] 01:58:38 Test Item Value Reference Range Interpretation Comments PARTIAL THROMBOPLASTIN TIME 88.8 seconds 22.5-36.0 H (BEAKER) (test code = 760) POC-Glucose [id number] 23:44:39 Test Item Value Reference Range Interpretation Comments POC-Glucose Meter (test 103 mg/dL 70-110 : TE STED AT [facility] code = 1538) [address] [facility], [address]: Admissions Rn/Techni cory ID = [id number] for Ashley Waller Lab Interpretation (test Normal code = 15820-0) [facility] HospitalPOCT-GLUCOSE [id number] 23:44:39 Test Item Value Reference Range Interpretation Comments POC-GLUCOSE METER 103 mg/dL 70-110 : TESTED A T [facility] [address] (BEAKER) (test code = [facility], 1538) [address]: Admissions Rn/Techni cory ID = [id number] for Ashley Garcia [id number] 18:49:14 Test Item Value Reference Range Interpretation Comments PARTIAL THROMBOPLASTIN TIME 62.6 seconds 22.5-36.0 H (BEAKER) (test code = 760) POCT-GLUCOSE [id number] 11:52:36 Test Item Value Reference Range Interpretation Comments POC-GLUCOSE METER 88 mg/dL 70-110 : TESTED A T [facility] [address] (BEAKER) (test code = [place], 1538) [address]: Admissions Rn/Techni cory ID = [id number] for MARISELA KELLOGG [id number] 10:29:13 Test Item Value Reference Range Interpretation Comments PARTIAL THROMBOPLASTIN TIME 95.0 seconds 22.5-36.0 H (BEAKER) (test code = 760) [id number] 09:21:32 Test Item Value Reference Range Interpretation Comments PHOSPHORUS (BEAKER) (test code = 3.9 mg/dL 2.3-4.7 604) Admissions Rn ID - PIAYA LCOMPREHENSIVE METABOLIC [id number] 09:21:31 Test Item Value Reference Range Interpretation [...] S NOT APPLICABLE FOR DIALYSIS PATIEN TS. Admissions Rn ID - MERON [id number] 09:21:31 Test Item Value Reference Range Interpretation Comments MAGNESIUM (BEAKER) (test code = 2.0 mg/dL 1.6-2.6 627) Admissions Rn ID - MERON LPROTHROMBIN TIME/[id number] 06:28:22 Test Item Value Reference Range Interpretation Comments PROTIME (BEAKER) 16.4 seconds 11.9-14.2 H (test code = 759) INR (BEAKER) (test 1.35 See_Comment [Automat ed message] code = 370) The system [employer] generated this result transmitted ref erence range: <=5.90. The reference range was not used to int erpret this result as normal/abnormal . RECOMMENDED COUMADIN/WARFARIN INR THERAPY RANGESSTANDARD DOSE: 2.0 - 3.0 Includes: PROPHYLAXIS for venous thrombosis, systemic embolization; TREATMENT for venous thrombosis and/or pulmonary embolus.HIGH RISK: Target INR is 2.5-3.5 for patients with mechanical heart valves.CBC W/PLT COUNT & AUTO [id number] 06:24:34 Test Item Value Reference Range Interpretation [...] PERCENT (BEAKER) (test code = 2801) POCT-GLUCOSE [id number] 06:13:53 Test Item Value Reference Range Interpretation Comments POC-GLUCOSE METER 100 mg/dL 70-110 : TESTED A T [facility] [address] ([facility]) (test code = [facility], 1538) [address]: Admissions Rn/Techni cory ID = [id number] for Ashley Garcia POCT-GLUCOSE [id number] 00:08:35 Test Item Value Reference Range Interpretation Comments POC-GLUCOSE METER 100 mg/dL 70-110 : TESTED A T [facility] [address] ([facility]) (test code = [facility], 1538) [address]: Admissions Rn/Techni cory ID = [id number] for Ashley Garcia [id number] 23:35:31 Test Item Value Reference Range Interpretation Comments PARTIAL THROMBOPLASTIN TIME 109.7 seconds 22.5-36.0 H (BEAKER) (test code = 760) 2D Echo W/Doppler(CW/PW/Color)2021-04-06 17:15:30Ejection FractionSLEH ECHO HEARTLAB MKCKESSON CPACSCHI [facility] 09:46:56 Test Item Value Reference Range Interpretation Comments PARTIAL THROMBOPLASTIN TIME 33.2 seconds 22.5-36.0 (DAVE) (test code = 760) CT, CHEST, WITH [id number] 08:40:00Unlisted Reason for Exam - Click Yes and Enter Reason Below->Yespost TAVRUnlisted Reason for Exam->evalauate for leaflet thrombosis [facility] : 1935 Sex: MFINAL REPORT CT Chest [...] iterative reconstruction technique. Findings:No mediastinal or hilar lymphadenopathy. Normal size heart. No pericardial effusion. Postoperative changes [...] partially imaged abdomen. No aggressive osseous lesion. Moderate chronic appearing L1 compression deformity, without fragment retropulsion. Impression: 1. No acute findings in the chest.2. No intracardiac thrombus is identified.3. Previous aortic valve replacement.4. 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 Signed: Hudson Polanco MDReport Verified Date/Time: 04/06/2021 08:40:10 REHENSIVE METABOLIC [id number] 06:21:48 Test Item Value Reference Range Interpretation [...] S NOT APPLICABLE FOR DIALYSIS PATIEN TS. Admissions Rn ID - MERON Quiroz ID - [id number] 05:55:52 Test Item Value Reference Range Interpretation Comments PHOSPHORUS (BEAKER) (test code = 4.2 mg/dL 2.3-4.7 604) Admissions Rn ID - MERON [id number] 05:55:51 Test Item Value Reference Range Interpretation Comments MAGNESIUM (BEAKER) (test code = 2.0 mg/dL 1.6-2.6 627) Admissions Rn ID - MERON LPROTHROMBIN TIME/[id number] 05:31:15 Test Item Value Reference Range Interpretation Comments PROTIME (BEAKER) 14.4 seconds 11.9-14.2 H (test code = 759) INR (BEAKER) (test 1.14 See_Comment [Automat ed message] code = 370) The system [employer] generated this result transmitted ref erence range: <=5.90. The reference range was not used to int erpret this result as normal/abnormal . RECOMMENDED COUMADIN/WARFARIN INR THERAPY RANGESSTANDARD DOSE: 2.0 - 3.0 Includes: PROPHYLAXIS for venous thrombosis, systemic embolization; TREATMENT for venous thrombosis and/or pulmonary embolus.HIGH RISK: Target INR is 2.5-3.5 for patients with mechanical heart valves.CBC W/PLT COUNT & AUTO [id number] 05:15:40 Test Item Value Reference Range Interpretation [...] 0-1 PERCENT (BEAKER) (test code = 2801) [id number] 02:49:42 Test Item Value Reference Range Interpretation Comments PARTIAL THROMBOPLASTIN TIME 43.7 seconds 22.5-36.0 H (BEAKER) (test code = 760) POCT-GLUCOSE [id number] 22:40:25 Test Item Value Reference Range Interpretation Comments POC-GLUCOSE METER 95 mg/dL 70-110 : TESTED A T [facility] [address] (BEAKER) (test code = [place], 1538) [address]: Admissions Rn/Techni cory ID = [id number] for Alba Matias [id number] 18:10:18 Test Item Value Reference Range Interpretation Comments PARTIAL THROMBOPLASTIN TIME 109.1 seconds 22.5-36.0 H (BEAKER) (test code = 760) [id number] 12:21:05 Test Item Value Reference Range Interpretation Comments PARTIAL THROMBOPLASTIN TIME 70.1 seconds 22.5-36.0 H (BEAKER) (test code = 760) POCT-GLUCOSE [id number] 06:54:14 Test Item Value Reference Range Interpretation Comments POC-GLUCOSE METER 93 mg/dL 70-110 : [facility] ([facility] (test code = [place], 1538) [address]: Admissions Rn/Techni cory ID = [id number] for Ela Hilario [id number] 05:14:19 Test Item Value Reference Range Interpretation Comments PARTIAL THROMBOPLASTIN TIME 85.7 seconds 22.5-36.0 H (BEAKER) (test code = 760) PROTHROMBIN TIME/[id number] 05:12:27 Test Item Value Reference Range Interpretation Comments PROTIME (BEAKER) 14.5 seconds 11.9-14.2 H (test code = 759) INR (BEAKER) (test 1.15 See_Comment [Automat ed message] code = 370) The system [employer] generated this result transmitted ref erence range: [...] S NOT APPLICABLE FOR DIALYSIS PATIEN TS. Admissions Rn ID - ECGHGQAUGTA2144-32-56 05:05:36 Test Item Value Reference Range Interpretation Comments MAGNESIUM (BEAKER) (test code = 2.0 mg/dL 1.6-2.6 627) Admissions Rn ID - FGSEYJONCBRY7053-84-59 05:05:36 Test Item Value Reference Range Interpretation Comments PHOSPHORUS (BEAKER) (test code = 3.8 mg/dL 2.3-4.7 604) Admissions Rn ID - DBCBC W/PLT COUNT & AUTO ETFIWJVKWPDF3979-09-56 04:29:42 Test Item Value Reference Range Interpretation [...] PERCENT (BEAKER) (test code = 2801) POCT-GLUCOSE [id number] 00:54:16 Test Item Value Reference Range Interpretation Comments POC-GLUCOSE METER 94 mg/dL 70-110 : TESTED A T [facility] [address] (BEAKER) (test code = [place], 1538) [address]: Admissions Rn/Techni cory ID = [id number] for Ela Hilario PROTHROMBIN TIME/[id number] 09:53:09 Test Item Value Reference Range Interpretation Comments PROTIME (BEAKER) 15.4 seconds 11.9-14.2 H (test code = 759) INR (BEAKER) (test 1.24 See_Comment [Automat ed message] code = 370) The system [employer] generated this result transmitted ref erence range: <=5.90. The reference range was not used to int erpret this result as normal/abnormal . RECOMMENDED COUMADIN/WARFARIN INR THERAPY RANGESSTANDARD DOSE: 2.0 - 3.0 Includes: PROPHYLAXIS for venous thrombosis, systemic embolization; TREATMENT for venous thrombosis and/or pulmonary embolus.HIGH RISK: Target INR is 2.5-3.5 for patients with mechanical heart valves.[id number] 07:06:20 Test Item Value Reference Range Interpretation Comments PHOSPHORUS (BEAKER) (test code = 3.0 mg/dL 2.3-4.7 604) Admissions Rn ID - TRISTIAN WCOMPREHENSIVE METABOLIC [id number] 07:06:19 Test Item Value Reference Range Interpretation [...] S NOT APPLICABLE FOR DIALYSIS PATIEN TS. Admissions Rn ID - TRISTIAN RQEFWUBKTF5818-94-32 07:06:19 Test Item Value Reference Range Interpretation Comments MAGNESIUM (BEAKER) (test code = 2.0 mg/dL 1.6-2.6 627) Admissions Rn ID - TRISTIAN NIXEQ7230-01-22 06:30:10 Test Item Value Reference Range Interpretation Comments PARTIAL THROMBOPLASTIN TIME 76.4 seconds 22.5-36.0 H (BEAKER) (test code = 760) CBC W/PLT COUNT & AUTO [id number] 06:21:06 Test Item Value Reference Range Interpretation [...] 0-1 PERCENT (BEAKER) (test code = 2801) [id number] 23:26:41 Test Item Value Reference Range Interpretation Comments PARTIAL THROMBOPLASTIN TIME 81.1 seconds 22.5-36.0 H (BEAKER) (test code = 760) Hemoglobin and xcxyczdoat7580-40-78 23:26:00 Test Item Value Reference Range Interpretation Comments Hemoglobin (test code 11.6 See_Comment L [Auto mated = 786-4) message] The system which generated this result transmit dena reference range : 13.7 - 17.5 GM/ DL. The reference range was not u sed to interpret th is result as normal/abnormal . Hematocrit (test code 35.4 % 40.1-51.0 L = 4544-3) JETT (test code = JETT) Admissions Rn ID - 6000Operator ID - [id number] Lab Interpretation Abnormal (test code = 13873-6) [facility] HospitalHEMOGLOBIN AND [id number] 23:26:00 Test Item Value Reference Range Interpretation Comments HEMOGLOBIN (BEAKER) (test code = 11.6 GM/DL 13.7-17.5 L 410) HEMATOCRIT (BEAKER) (test code = 35.4 % 40.1-51.0 L 411) Admissions Rn ID - 6000Operator ID - [id number] 12:04:57 Test Item Value Reference Range Interpretation Comments PARTIAL THROMBOPLASTIN TIME 32.2 seconds 22.5-36.0 (BEAKER) (test code = 760) Platelet [id number] 12:03:08 Test Item Value Reference Range Interpretation Comments Platelets (test code 110 See_Comment L [Autom ated = 777-3) message] The system which generated this result transmit dena reference range : 150 - 450 K/CU MM. The reference range was not u sed to interpret th is result as normal/abnormal . JETT (test code = JETT) Admissions Rn ID - 6000Operator ID - [id number] Lab Interpretation Abnormal (test code = 77437-7) [facility] HospitalPLATELET [id number] 12:03:08 Test Item Value Reference Range Interpretation Comments PLATELET COUNT (BEAKER) (test 110 K/CU MM 150-450 L code = 756) Admissions Rn ID - 6000Operator ID - [id number] 05:25:05 Test Item Value Reference Range Interpretation Comments PHOSPHORUS (BEAKER) (test code = 2.2 mg/dL 2.3-4.7 L 604) Admissions Rn ID - PIAYA LCOMPREHENSIVE METABOLIC [id number] 05:25:04 Test Item Value Reference Range Interpretation [...] S NOT APPLICABLE FOR DIALYSIS PATIEN TS. Admissions Rn ID - MERON LJSDDJYHOP0572-80-29 05:25:04 Test Item Value Reference Range Interpretation Comments MAGNESIUM (BEAKER) (test code = 2.0 mg/dL 1.6-2.6 627) Admissions Rn ID - MERON LCBC W/PLT COUNT & AUTO [id number] 05:07:55 Test Item Value Reference Range Interpretation [...] PERCENT (BEAKER) (test code = 2801) PROTHROMBIN TIME/[id number] 05:04:30 Test Item Value Reference Range Interpretation Comments PROTIME (BEAKER) 16.7 seconds 11.9-14.2 H (test code = 759) INR (BEAKER) (test 1.37 See_Comment [Automat ed message] code = 370) The system [facility] generated this result transmitted ref erence range: <=5.90. The reference range was not used to int erpret this result as normal/abnormal . RECOMMENDED COUMADIN/WARFARIN INR THERAPY RANGESSTANDARD DOSE: 2.0 - 3.0 Includes: PROPHYLAXIS for venous thrombosis, systemic embolization; TREATMENT for venous thrombosis and/or pulmonary embolus.HIGH RISK: Target INR is 2.5-3.5 for patients with mechanical heart valves.Urinalysis Microscopic [id number] 17:49:35 Test Item Value Reference Range Interpretation Comments RBC, UA (test 149 See_Comment [Automated me ssage] code = 09848-9) The system w [facility] generated this result transmit dena reference range : /HPF. The refer ence range was not u sed to interpret th is result as normal/abnormal . WBC, UA (test 72 See_Comment [Automated me ssage] code = 5821-4) The system [facility] generated this result transmit dena reference range : /HPF. The refer ence range was not u sed to interpret th is result as normal/abnormal . Bacteria, UA Occasional (test code = 73273-3) Mucus (test Few code = 8247-9) Crystals, Urine None Seen (test code = 17053-0) JETT (test code Admissions Rn ID - tech = JETT) [facility] [id number] 17:49:35 Test Item Value Reference Range Interpretation Comments RBC UA (BEAKER) (test code = 519) 149 /HPF WBC UA (BEAKER) (test code = 520) 72 /HPF BACTERIA (BEAKER) (test code = Occasional 517) MUCUS (BEAKER) (test code = 1574) Few CRYSTALS, URINE (BEAKER) (test None Seen code = 1521) Admissions Rn ID - techUrinalysis with Microscopic If [id number] 17:22:23 Test Item Value Reference Range Interpretation Comments Color, UA (test code = Yellow 5778-6) Clarity, UA (test code = Hazy 5767-9) Specific [place], UA (test 1.014 1.001-1.035 code = 5811-5) pH, UA (test code = 6.0 5.0-8.0 5803-2) Protein, UA (test code = 200 mg/dL Negative A 08693-9) Glucose, UA (test code = Negative Negative 365) Ketones, UA (test code = Negative Negative 2514-8) Bilirubin, UA (test code = Negative Negative 26053-7) Blood, UA (test code = Large Negative A 94455-5) Nitrite, UA (test code = Negative Negative 5802-4) Leukocytes, UA (test code Moderate Negative A = 5799-2) Urobilinogen, UA (test 0.2 mg/dL 0.2-1.0 code = 01347-7) Specimen Source (test code = 2795) JTET (test code = JETT) Admissions Rn ID - [auto] Lab Interpretation (test Abnormal code = 17483-1) [facility] WITH MICROSCOPIC IF [id number] 17:22:23 Test Item Value Reference Range Interpretation [...] 0.2-1.0 = 463) SOURCE(BEAKER) (test code = 2795) Admissions Rn ID - [auto]Hepatic function [id number] 09:19:11 Test Item Value Reference Range Interpretation Comments Protein, Total (test 6.5 See_Comment [Autom ated code = 2885-2) message] The system which generated this result transmit dena reference range : 6.0 - 8.3 gm/dL . The reference range was not u sed to interpret th is result as normal/abnormal . Albumin (test code = 3.8 g/dL 3.5-5.0 34297-6) Total Bilirubin (test 1.5 mg/dL 0.2-1.2 H code = 1975-2) Bilirubin, Direct 0.5 mg/dL 0.1-0.5 (test code = 1968-7) Alkaline Phosphatase 60 U/L 40-150 (test code = 6768-6) AST (test code = 17 U/L 5-34 1920-8) ALT (test code = 12 U/L 6-55 1742-6) JETT (test code = JETT) Admissions Rn ID - PIAYA L Lab Interpretation Abnormal (test code = 49766-0) [facility]CTION [id number] 09:19:11 Test Item Value Reference Range Interpretation [...] (test code = 12 U/L 6-55 347) Admissions Rn ID - PIAYA LBasic metabolic [id number] 09:19:10 Test Item Value Reference Range Interpretation Comments Sodium (test code = 140 meq/L 093-610 5351-2) Potassium (test code = 3.9 meq/L 3.5-5.1 2823-3) Chloride (test code = 105 meq/L 98-107 2075-0) CO2 (test code = 28 meq/L 22-29 2028-9) BUN (test code = 18 mg/dL 7-21 3094-0) Creatinine (test code 1.12 mg/dL 0.57-1.25 = 2160-0) Glucose (test code = 142 mg/dL 70-105 H 2345-7) Calcium (test code = 8.9 mg/dL 8.4-10.2 36122-3) EGFR (test code = 62 mL/min/1.73 [place] [address]-0) NOT ACCURATE CREATININE CLEARANCE IN PREDICTING GLOMERULAR FILTRATION RATE . ESTIMATED GFR I S NOT APPLICABLE FOR DIALYSIS PATIENTS. JETT (test code = JETT) Admissions Rn ID - PIAYA L Lab Interpretation Abnormal (test code = 25510-9) [facility] METABOLIC [id number] 09:19:10 Test Item Value Reference Range Interpretation [...] S NOT APPLICABLE FOR DIALYSIS PATIEN TS. Admissions Rn ID - PIAYA LPROTHROMBIN TIME/[id number] 09:10:27 Test Item Value Reference Range Interpretation Comments PROTIME (BEAKER) 22.4 seconds 11.9-14.2 H (test code = 759) INR (BEAKER) (test 1.99 See_Comment [Automat ed message] code = 370) The system [employer] generated this result transmitted ref erence range: <=5.90. The reference range was not used to int erpret this result as normal/abnormal . RECOMMENDED COUMADIN/WARFARIN INR THERAPY RANGESSTANDARD DOSE: 2.0 - 3.0 Includes: PROPHYLAXIS for venous thrombosis, systemic embolization; TREATMENT for venous thrombosis and/or pulmonary embolus.HIGH RISK: Target INR is 2.5-3.5 for patients with mechanical heart valves.CBC W/PLT COUNT & AUTO [id number] 08:59:10 Test Item Value Reference Range Interpretation [...] PERCENT (BEAKER) (test code = 2801) BLOOD [id number] 10:00:00 Test Item Value Reference Range Interpretation Comments CULTURE (BEAKER) (test No growth in 5 days code = 1095) BLOOD [id number] 10:00:00 Test Item Value Reference Range Interpretation Comments CULTURE (BEAKER) (test No growth in 5 days code = 1095) CT, CTA, [id number] 09:40:00Unlisted Reason for Exam - Click Yes and Enter Reason Below->YesUnlisted Reason for Exam->s/p TAVR and SAVR with gradient [facility] : 1935 Sex: MAddendum BeginsREPORT STATUS:A I agree with the nonvascular findings detailed byDr. East. Additional nonvascular findings include: Diffuse bronchial wall thickening with trace mucus in the trachea, suggestive of bronchitis. Patchy groundglass opacities in both lungs, suggestive of pneumonia. Signed: Gualberto Levy MDReport Verified Date/Time: 01/03/2020 09:40:[address] angiography the TAVR, 02-Jan-20 INDICATION: This is a 84 year oldmale with diagnosis of increasing gradient, post TAVR and SAVR. TECHNIQUE: Spiral acquisition beforeand during intravenous contrast administration using a Tejas multidetector CT scanner. CT scanner.Images were obtained before and during the dynamic passage of intravenous contrast material. Multi-planar 3-D volume-rendering reconstruction was performed using an independent workstation interactively by the interpreting physician as well as the 3-D specialist for optimal visualisation of the thoraci c aorta and its proximal branches. Please refer to the contrast sheet scanned in the EPIC system forthe amount and route of contrast given. This [...] be patent though some motion artefact is identified.Patient is post TAVR, [place] variant. It appears to be well positioned. It is relatively well seen and 60% reconstruction. In the cine imaging, the TAVR appears has reasonable opening, however, hypodensity is seen, in the right coronary cusps and noncoronary cusp level, suggesting the presence of nonocclusive thrombus. Please see snapshot for details. The thoracic aorta is normal in course, contour,and calibre. Scattered calcific and noncalcific atherosclerosis is [...] aspect of the upper vertebral bodies. CONCLUSIONS: 1.Unremarkable thoracic aorta only mild atherosclerosis is seen. 2. Focal coronary artery indication is seen in the left main coronary artery, otherwise, the LAD, LCx and the RCA are seen to be widely patent. 3. Patient is post TAVR, [place] variant, appears to be well positioned. Most importantly, at the level of the right coronary cusp and noncoronary cusps, hypodensity is identified likely representthrombus. This is quite well seen by multiplanar [...] dictated regarding the non-vascular findings by the Before And After School Daycare Worker Radiologist. Major vascularfindings were discussed with Dr. Valladares at the time of dictation. Signed: Edwardo East Verified Date/Time: 01/02/2020 16:43:17 Reading Location: [place] [address] CT Reading Room COMPREHENSIVE METABOLIC [id number] 07:24:00 Test Item Value Reference Range Interpretation [...] S NOT APPLICABLE FOR DIALYSIS PATIEN TS. Admissions Rn ID - QUINCY [id number] 07:24:00 Test Item Value Reference Range Interpretation Comments MAGNESIUM (BEAKER) (test code = 1.8 mg/dL 1.6-2.6 627) Admissions Rn ID - QUINCY [id number] 07:24:00 Test Item Value Reference Range Interpretation Comments PHOSPHORUS (BEAKER) (test code = 2.7 mg/dL 2.3-4.7 604) Admissions Rn ID Justnie QUINCY FPROTHROMBIN TIME/[id number] 07:00:00 Test Item Value Reference Range Interpretation [...] valves.While on warfarin.CBC W/PLT COUNT & AUTO [id number] 06:56:00 Test Item Value Reference Range Interpretation [...] PERCENT (BEAKER) (test code = 2801) PROTHROMBIN TIME/[id number] 18:01:00 Test Item Value Reference Range Interpretation [...] is 2.5-3.5 for patients wiht mechanical heart valves.[id number] 06:38:00 Test Item Value Reference Range Interpretation Comments MAGNESIUM (BEAKER) (test code = 1.8 mg/dL 1.6-2.6 627) Admissions Rn ID - EDASICOMPREHENSIVE METABOLIC [id number] 06:38:00 Test Item Value Reference Range Interpretation [...] S NOT APPLICABLE FOR DIALYSIS PATIEN TS. Admissions Rn ID - [id number] 06:38:00 Test Item Value Reference Range Interpretation Comments PHOSPHORUS (BEAKER) (test code = 2.7 mg/dL 2.3-4.7 604) Admissions Rn ID - EDASICBC W/PLT COUNT & AUTO [id number] 06:03:00 Test Item Value Reference Range Interpretation [...] PERCENT (BEAKER) (test code = 2801) MRSA [id number] 15:50:00 Test Item Value Reference Range Interpretation Comments CULTURE (BEAKER) (test code No MRSA isolated = 1095) FL, ESOPH, SWALLOW FUNCTION, WITH CINE OR [id number] 15:38:00D/c NGT prior to the study and then attemptReason for exam:->dysphagea [facility] : 1935 Sex: MFINAL REPORT Modified barium swallow exam with speech pathology service CLINICALHISTORY: dysphagia IMPRESSION: Please see the speech pathology service report for details. Barium contrast of multiple consistencies is given to the patient to swallow. Fluoroscopic observation is performed during swallowing. Fluoro time: 120 minutes Number of images: 1 Signed: Scott Wilkinson Verified Date/Time: 01/01/2020 15:38:45 Reading Location: [facility] C013X [facility] Consult Reading Room [id number] 06:21:00 Test Item Value Reference Range Interpretation Comments MAGNESIUM (BEAKER) (test code = 1.9 mg/dL 1.6-2.6 627) Admissions Rn ID - edasiCOMPREHENSIVE METABOLIC [id number] 06:21:00 Test Item Value Reference Range Interpretation [...] S NOT APPLICABLE FOR DIALYSIS PATIEN TS. Admissions Rn ID - [id number] 06:21:00 Test Item Value Reference Range Interpretation Comments PHOSPHORUS (BEAKER) (test code = 1.8 mg/dL 2.3-4.7 L 604) Admissions Rn ID - edasiCBC W/PLT COUNT & AUTO [id number] 05:52:00 Test Item Value Reference Range Interpretation [...] PERCENT (BEAKER) (test code = 2801) POCT-GLUCOSE [id number] 19:08:00 Test Item Value Reference Range Interpretation Comments POC-GLUCOSE METER 73 mg/dL 70-110 : TESTED A T [facility] 6720 (BEAKER) (test code = CHAKA Cheung [facility], 1538) [address]: Admissions Rn/Techni cory ID = [id number] for ALEXANDRO EPSTEIN POCT-GLUCOSE [id number] 14:49:00 Test Item Value Reference Range Interpretation Comments POC-GLUCOSE METER 74 mg/dL 70-110 : TESTED A T [facility] 6720 (BEAKER) (test code = [facility] Skye [facility], 1538) [address]: Admissions Rn/Techni cory ID = [id number] for BRETT-STAFFOR TRELL Chauhan MRSA [id number] 12:26:00 Test Item Value Reference Range Interpretation Comments CULTURE (BEAKER) (test code No MRSA isolated = 1095) SPUTUM CULTURE + GRAM [id number] 12:26:00 Test Item Value Reference Range Interpretation Comments CULTURE (BEAKER) 1+ Normal respiratory (test code = 1095) regina present GRAM STAIN RESULT 4+ WBCs (BEAKER) (test code = 1123) GRAM STAIN RESULT 0-5 epithelial cells (BEAKER) (test code = 82547) GRAM STAIN RESULT <1+ gram positive cocci (BEAKER) (test code = in pairs and clusters 79678) COMPREHENSIVE METABOLIC [id number] 06:48:00 Test Item Value Reference Range Interpretation [...] S NOT APPLICABLE FOR DIALYSIS PATIEN TS. Admissions Rn ID - MERON [id number] 06:48:00 Test Item Value Reference Range Interpretation Comments MAGNESIUM (BEAKER) (test code = 2.0 mg/dL 1.6-2.6 627) Admissions Rn ID - MERON [id number] 06:48:00 Test Item Value Reference Range Interpretation Comments PHOSPHORUS (BEAKER) (test code = 2.0 mg/dL 2.3-4.7 L 604) Admissions Rn ID - MERON JASEN/S, RENAL, [id number] 06:39:00Reason for exam:- >worsening kidney function/ metabolic acidosis [facility] : 1935 Sex: MFINAL REPORT Renal ultrasound [...] septation. Doppler ultrasound demonstrates a patent main renalartery and vein bilaterally. The bladder is decompressed. Impression: Left renal cysts. Otherwise unremarkable ultrasound appearance of the kidneys. Signed: Gerry Sinha MDReport Verified Date/Time: 12/31/2019 06:39:51 CBC W/PLT COUNT & AUTO [id number] 06:11:00 Test Item Value Reference Range Interpretation [...] = 2801) RAD, CHEST, 1 VIEW, NON [id number] 01:43:00Reason for exam:->respiratory failureShould this be performed at the bedside?->Yes [facility] : 1935 Sex: MFINAL REPORT CLINICAL INDICATION: [...] 12/31/2019 01:43:07 CBC W/PLT COUNT & AUTO [id number] 18:42:00 Test Item Value Reference Range Interpretation [...] (BEAKER) (test code = 2801) VANCOMYCIN LEVEL, [id number] 09:49:00 Test Item Value Reference Range Interpretation Comments VANCOMYCIN TROUGH (BEAKER) (test 9.6 ug/mL 10.0-20.0 L code = 522) Admissions Rn ID - SUHA CCOMPREHENSIVE METABOLIC [id number] 05:31:00 Test Item Value Reference Range Interpretation [...] S NOT APPLICABLE FOR DIALYSIS PATIEN TS. Admissions Rn ID - MERON [id number] 05:13:00 Test Item Value Reference Range Interpretation Comments MAGNESIUM (BEAKER) (test code = 1.6 mg/dL 1.6-2.6 627) Admissions Rn ID - MERON [id number] 05:13:00 Test Item Value Reference Range Interpretation Comments PHOSPHORUS (BEAKER) (test code = 2.6 mg/dL 2.3-4.7 604) Admissions Rn ID - MERON LCBC W/PLT COUNT & AUTO [id number] 04:43:00 Test Item Value Reference Range Interpretation Comments WHITE BLOOD CELL COUNT 19.3 K/ L 3.5-10.5 H (BEAKER) (test code = 775) RED BLOOD CELL COUNT 3.87 M/ L 4.63-6.08 L (BEAKER) (test code = 761) HEMOGLOBIN (BEAKER) 11.7 GM/DL 13.7-17.5 L Discorda nt HGB (test code = 410) results co mpared to previous result s; clinical correl ation required.508938 HEMATOCRIT (BEAKER) 36.4 % 40.1-51.0 L (test [...] (BEAKER) (test code = 2801) BLOOD GAS, [id number] 04:36:00 Test Item Value Reference Range Interpretation [...] (BEAKER) (test code = 1819) 50.0 CORTISOL,60 [id number] 03:53:00 Test Item Value Reference Range Interpretation Comments CORTISOL BASELINE NETWORKED 14.1 mcg/dL (BEAKER) (test code = 858) CORTISOL 30 MINUTE NETWORKED 16.0 mcg/dL (BEAKER) (test code = 8848) CORTISOL, 60 MINUTE (BEAKER) 16.5 ug/dL (test [...] Pharmacy Policy and Procedure Section on The Source.Admissions Rn ID - PIAYA LCORTISOL,30 MIN 2019-12-30 03:52:00 [...] Pharmacy Policy and Procedure Section on The Source.Admissions Rn ID - PIAYA LRAD, CHEST, 1 VIEW, NON [id number] 03:30:00Reason for exam:->respiratory failureShould this be performed at the bedside?->Yes [facility] : 1935 Sex: MFINAL REPORT RAD, CHEST, [...] Anastasiia Aponte MDReport Verified Date/Time: 12/30/2019 03:30:42 CORTISOL,[id number] 01:31:00 Test Item Value Reference Range Interpretation [...] Pharmacy Policy and Procedure Section on The Source.Admissions Rn ID - PIAYA LCREATININE, RANDOM [id number] 19:52:00 Test Item Value Reference Range Interpretation Comments CREATININE URINE (BEAKER) (test 310.8 mg/dL code = 375) Reference Range: No NormalsOperator ID - DBSODIUM, RANDOM [id number] 19:52:00 Test Item Value Reference Range Interpretation Comments SODIUM URINE (BEAKER) (test code = < meq/L 243) Reference Range: No NormalsOperator ID - DBPOCT-GLUCOSE [id number] 18:14:00 Test Item Value Reference Range Interpretation Comments POC-GLUCOSE METER 105 mg/dL 70-110 : TESTED A T [facility] 6720 (BEAKER) (test code = [place], 1538) [address]: Admissions Rn/Techni cory ID = [id number] for Laura Bauman BASIC METABOLIC [id number] 16:24:00 Test Item Value Reference Range Interpretation [...] S NOT APPLICABLE FOR DIALYSIS PATIEN TS. Admissions Rn ID - [id number] 16:23:00 Test Item Value Reference Range Interpretation Comments MAGNESIUM (BEAKER) (test code = 1.6 mg/dL 1.6-2.6 627) Admissions Rn ID - DBBLOOD GAS, [id number] 16:09:00 Test Item Value Reference Range Interpretation [...] = 1819) 50.0 RAD, ABDOMEN/KUB, 1 VIEW [id number] 12:40:00Reason for exam:->NGT placement [facility] : 1935 Sex: MFINAL REPORT TECHNIQUE: Frontal [...] Levy Verified Date/Time: 12/29/2019 12:40:58 Reading Location: [facility] C013Y CT Body Reading Room B-TYPE NATRIURETIC FACTOR (BNP)2019-12-29 11:35:00 Test Item Value Reference Range Interpretation Comments B-TYPE NATRIURETIC PEPTIDE (BEAKER) 193 pg/mL 0-100 H (test code = 700) Admissions Rn ID - SUHA CLACTIC ACID, [id number] 11:25:00 Test Item Value Reference Range Interpretation Comments LACTATE BLOOD ARTERIAL (2) 3.3 mmol/L 0.5-2.2 H (BEAKER) (test code = 2874) Admissions Rn ID - SUHA CLACTIC ACID, [id number] 07:06:00 Test Item Value Reference Range Interpretation Comments LACTATE BLOOD VENOUS 3.49 mmol/L 0.50-2.20 H Specime n slightly (2) (BEAKER) (test hemolyzed code = 2872) Admissions Rn ID - EDASIURINALYSIS W/ REFLEX URINE [id number] 06:56:00 Test Item Value Reference Range Interpretation [...] = Many 1585) SOURCE(BEAKER) (test code = 8567) Admissions Rn ID - [auto]Admissions Rn ID - techPROTHROMBIN TIME/[id number] 06:54:00 Test Item Value Reference Range Interpretation Comments PROTIME (BEAKER) (test code = 13.8 seconds 11.9-14.2 759) INR (DAVE) (test code = 370) 1.09 <=5.90 Effective 08/02/2018: PT Reference Range ChangeNew: 11.9-14.2 Previous: 11.7- 14.7RECOMMENDED COUMADIN/WARFARIN INR THERAPY RANGESSTANDARD DOSE: 2.0-3.0 Includes: PROPHYLAXIS for venous thrombosis, systemic embolization; TREATMENT for venous thrombosis and/or pulmonary embolus.HIGH RISK: Target INR is 2.5-3.5 for patients wiht mechanical heart valves.[id number] 06:54:00 Test Item Value Reference Range Interpretation Comments PARTIAL THROMBOPLASTIN TIME 30.3 seconds 22.5-36.0 (DAVE) (test code = 760) RAD, CHEST, 1 VIEW, NON [id number] 06:51:00Reason for exam:->ETT placementShould this be performed at the bedside?->Yes [facility] : 1935 Sex: MFINAL REPORT CLINICAL INDICATION: Endotracheal tube positioning Comparison: 12/29/2019 The tip of an endotracheal tube is above the kira at the level of the inferior clavicular heads. The cardiomediastinal contours are stable. Central pulmonary vascular congestion and bilateral parenchymal and pleural opacities are unchanged. There is no pneumothorax. Signed: Gerry Sinha Verified Date/Time: 12/29/2019 06:51:17 TSH/FREE T4 IF [id number] 06:47:00 Test Item Value Reference Range Interpretation Comments THYROID STIMULATING HORMONE 1.830 uIU/mL 0.350-4.940 (BEAKER) (test code = 772) Admissions Rn ID - LOU [id number] 06:40:00 Test Item Value Reference Range Interpretation [...] failure, acidosis, acute neurological disease, and persistent tachyarrhythmia.Admissions Rn ID - LOU [id number] 06:36:00 Test Item Value Reference Range Interpretation [...] failure, acidosis, acute neurological disease, and persistent tachyarrhythmia.Admissions Rn ID - EDASICBC W/PLT COUNT & AUTO [id number] 04:56:00 Test Item Value Reference Range Interpretation [...] PERCENT (BEAKER) (test code = 2801) TROPONIN [id number] 04:43:00 Test Item Value Reference Range Interpretation [...] failure, acidosis, acute neurological disease, and persistent tachyarrhythmia.Admissions Rn ID - EDASICOMPREHENSIVE METABOLIC [id number] 04:37:00 Test Item Value Reference Range Interpretation [...] S NOT APPLICABLE FOR DIALYSIS PATIEN TS. Admissions Rn ID - [id number] 04:37:00 Test Item Value Reference Range Interpretation Comments MAGNESIUM (BEAKER) (test code = 1.7 mg/dL 1.6-2.6 627) Admissions Rn ID - [id number] 04:37:00 Test Item Value Reference Range Interpretation Comments PHOSPHORUS (BEAKER) (test code = 3.7 mg/dL 2.3-4.7 604) Admissions Rn ID - SHAYNA, CHEST, 1 VIEW, NON [id number] 04:27:00Reason for exam:->ETT positionShould this be performed at the bedside?->Yes [facility] 1935 Sex: MFINAL REPORT CLINICAL INDICATION: Support lines. Comparison: 12/28/2019 The tip of an endotracheal tube is in good position above the kira at the level of the midclavicular heads.The cardiomediastinal contours are stable. Bilateral parenchymal and pleural opacities are unchanged. There is no pneumothorax. Signed: Gerry Sinha [facility] Verified Date/Time: 12/29/2019 04:27:00 -COV2/RT-PCR ([facility])2019-12-29 04:15:00 Test Item Value Reference Range Interpretation Comments SARS-COV2/RT-PCR (test Negative Not Detected, Negative, code = 2729462) See external report for linked test SARS-COV-2 PERFORMING LAB [facility] ERROL (test code = 0022796) Negative result for this test determines that [...] of the Act.Fact Sheet for Healthcare Prov iders:https://www.[employer]/sites/default/files/product/documents/Fact_Sheet_HC _Ioaesaaim_Iwjn_IRNI-QyZ-2.pdfFact Sheet for Healthcare Patients:https://www.[employer]/sites/default/files/product/docume nts/Odju_Vnibh_Hwjzbxbg_Dbkr_STBI-IvQ-0.pdfPerforming Laboratory:[place] [address], [place] [address]JMPZ-JHAMD GASES, [id number] 04:14:00 Test Item Value Reference Range Interpretation Comments TEMP, CELSIUS-POC 98.5 (BEAKER) (test code = 1834) FIO2-POC (BEAKER) 60 (test code = 1835) PH, ARTERIAL-POC 7.285 7.350-7.450 L (BEAKER) (test code = 1836) PCO2, ARTERIAL-POC 53.5 mm Hg 35.0-45.0 H (BEAKER) (test code = 1837) PO2, ARTERIAL-POC 66.0 mm Hg 80.0-90.0 L (BEAKER) (test code = 1838) SO2, ARTERIAL-POC 90.0 % 96.0-97.0 L ([facility]) (test code = 1839) HCO3, ARTERIAL-POC 25.5 meq/L 21.0-29.0 ([facility]) (test code = 1840) BASE EXCESS, -1.0 meq/L -2.0-3.0 : TESTED AT [facility] [address] ARTERIAL-POC [facility], ([facility]) (test code [address]: = 1841) Admissions Rn/Techni cory ID = [id number] for CR DONNELL HERRERA [id number] 04:14:00 Test Item Value Reference Range Interpretation Comments POC-SODIUM ([facility]) 141 meq/L 135-148 : TESTED AT [facility] 6720 (test code = 1542) [place], [address]: Admissions Rn/Techni cory ID = [id number] for DONNELL GERMAIN ARJI-[id number] 04:14:00 Test Item Value Reference Range Interpretation Comments POC-POTASSIUM 3.6 meq/L 3.6-5.5 : TESTED AT [facility] [address] ([facility]) (test code [facility], = 1540) [address]: Admissions Rn/Techni cory ID = [id number] for DONNELL GERMAIN UNTF-[id number] 04:14:00 Test Item Value Reference Range Interpretation Comments POC-HEMOGLOBIN 16.3 g/dL 13.0-16.8 : TESTED AT [facility] [place] [address] ([facility]) (test code [facility], = 1856) [address]: Admissions Rn/Techni cory ID = [id number] for DONNELL GERMAIN [id number] 04:14:00 Test Item Value Reference Range Interpretation Comments POC-HEMATOCRIT 48 % 40-50 : Admissions Rn/Te chnician ID = ([facility]) (test code = 182641 for DONNELL GERMAIN 1857) POCT-CALCIUM [id number] 04:14:00 Test Item Value Reference Range Interpretation Comments POC-CALCIUM IONIZED 1.18 mmol/L 1.12-1.27 : TESTED AT [facility] ([facility]) (test code = [address] [facility] 1536) [place], [address]: Admissions Rn/Techni cory ID = [id number] for DONNELL GERMAIN [id number] 04:14:00 Test Item Value Reference Range Interpretation Comments POC-GLUCOSE (BEAKER) 145 mg/dL 70-110 H : TESTE D AT [facility] 67[address] (test code = 1855) [place], [address]: Admissions Rn/Techni cory ID = [id number] for DONNELL GERMAIN CBC W/PLT COUNT & AUTO [id number] 23:29:00 Test Item Value Reference Range Interpretation [...] (BEAKER) (test code = 2801) BASIC METABOLIC [id number] 23:07:00 Test Item Value Reference Range Interpretation [...] S NOT APPLICABLE FOR DIALYSIS PATIEN TS. Admissions Rn ID - DBRAD, CHEST, 1 VIEW, NON [id number] 22:49:00Reason for exam:->pre-anesthesiaShould this be performed at the bedside?->Yes [facility] 1935 Sex: MFINAL REPORT TECHNIQUE: Frontal [...] due to prior asbestos exposure. Signed: Theresa Schmitt MDReport Verified Date/Time: 12/28/2019 22:49:33 Reading Location: [address] Transitional Reading Room [facility]. METABOLIC PANEL ([id number])2019-09-02 11:55:00 Test Item Value Reference Range Interpretation Comments NA (test code = 139 mmol/L 135-145 5391511469) K (test code = 4.1 mmol/L 3.5-5 1487516811) CL (test code = 104 mmol/L 98-108 1268470051) CO2 TOTAL (test code = 29 mmol/L 23-31 8463022497) AGAP (test code = 2-16 7434409204) BUN (test code = 21 mg/dL 7-23 1622987876) GLUCOSE (test code = 99 mg/dL 70-110 9635997359) CREATININE (test code 0.86 mg/dL 0.6-1.25 = 3167948989) TOTAL BILI (test code 0.7 mg/dL 0.1-1.1 = 5705665016) CALCIUM (test code = 9.3 mg/dL 8.6-10.6 0127188920) T PROTEIN (test code = 7.2 g/dL 6.3-8.2 2635207935) ALBUMIN (test code = 4.2 g/dL 3.5-5 5851600024) ALK PHOS (test code = 75 U/L 34-122 7152766762) ALTv (test code = 28 U/L 5-50 1742-6) AST(SGOT) (test code = 33 U/L 13-40 9489979767) eGFR Calculation mL/min/1.73m2 (Non-) (test code = 0401921908) eGFR Calculation mL/min/1.73m2 () (test code = 7791135635) JETT (test code = JETT) Association of [...] or urine or abnormalities in imaging tests). [facility] [id number] 11:53:00 Test Item Value Reference Range Interpretation Comments APPEARANCE (test code = Clear Clear 2130919910) COLOR (test code = Yellow Yellow 7135989098) PH (test code = 4.8-8.0 2759006327) SP GRAVITY (test code = 1.003-1.030 8612524455) GLU U QUAL (test code = Normal Normal 1822207422) BLOOD (test code = 1+ Negative A 5017426297) KETONES (test code = Negative Negative 7834805341) PROTEIN (test code = Negative Negative 2887-8) UROBILIN (test code = Normal Normal 2163891803) BILIRUBIN (test code = Negative Negative 7309288759) NITRITE (test code = Negative Negative 3535330542) LEUK ROLAN (test code = 75/uL Negative A 5007196704) RBC/HPF (test code = See_Comment H [Autom ated message] 9677110163) The system [employer] generated this result transmitted ref erence range: 0 - 3 HP F. The reference range was not used to int erpret this result as normal/abnormal . WBC/HPF (test code = See_Comment H [Autom ated message] 4017334031) The system [employer] generated this result transmitted ref erence range: 0 - 5 HP F. The reference range was not used to int erpret this result as normal/abnormal . BACTERIA (test code = Few Negative A 1338025427) MUCOUS (test code = Slight Negative LPF A 4273573255) SQ EPITH (test code = <1 HPF 9783008820) TRANS EPI (test code = <1 See_Comment [Aut omated message] 9530655988) The system [employer] generated this result transmitted ref erence range: <=1 HPF. The reference range was not used to int erpret this result as normal/abnormal . NOE EPITH (test code = <1 See_Comment [Aut omated message] 9676538677) The system [employer] generated this result transmitted ref erence range: <=1 HPF. The reference range was not used to int erpret this result as normal/abnormal . Lab Interpretation (test Abnormal code = 40654-1) [facility] WITH [id number] 11:52:00 Test Item Value Reference Range Interpretation Comments WBC (test code = See_Comment [Automated message] 6690-2) The system [employer] generated this result transmitted ref erence range: 4.20 - 1 0.70 10*3/?L. The re ference range was not u sed to interpret this result as normal/abnor mal. RBC (test code = See_Comment [Automated message] 789-8) The system [employer] generated this result transmitted ref erence range: [...] RDW-SD (test code 41.1 fL 38.5-51.6 = 67942-4) RDW-CV (test code 12.1 % 12.1-15.4 = 788-0) PLT (test code = See_Comment [Automated message] 777-3) The system [employer] generated this result transmitted ref erence range: 150 - 32 8 10*3/?L. The re ference range was not u sed to interpret this result as normal/abnor mal. MPV (test code = 10.8 fL 9.8-13 12166-0) NRBC/100 WBC (test See_Comment [Automat ed message] code = 9092021633) The syste m which generated this result transmitted ref erence range: 0.0 - 10 .0 /100 WBCs. The refer ence range was not u sed to interpret this result as normal/abnor mal. NRBC x10^3 (test <0.01 See_Comment [Automated message] code = 6070413832) The syste m which generated this result transmitted ref erence range: 10*3/?L. The reference range was not used to interpr et this result as normal/abnormal . GRAN MAT (NEUT) % 44.8 % (test code = 770-8) IMM GRAN % (test 0.40 % code = 5748377407) LYMPH % (test code 42.0 % = 736-9) MONO % (test code 6.9 % = 5905-5) EOS % (test code = 5.0 % 713-8) BASO % (test code 0.9 % = 706-2) GRAN MAT 3.14 10*3/uL 1.99-6.95 x10^3(ANC) (test code = 8358499392) IMM GRAN x10^3 0.03 10*3/uL 0-0.06 (test code = 0156299688) LYMPH x10^3 (test 2.94 10*3/uL 1.09-3.23 code = 731-0) MONO x10^3 (test 0.48 10*3/uL 0.36-1.02 code = 742-7) EOS x10^3 (test 0.35 10*3/uL 0.06-0.53 code = 711-2) BASO x10^3 (test 0.06 10*3/uL 0.01-0.09 code = 704-7) [facility] URINALYSIS, [id number] 17:34:00 Test Item Value Reference Range Interpretation [...] 3267) Lab Interpretation (test code Normal = 56933-9) [facility] URINALYSIS, [id number] 17:34:00 Test Item Value Reference Range Interpretation [...] 3267) Lab Interpretation (test code Normal = 25771-4) [facility] URINALYSIS, [id number] 17:09:00 Test Item Value Reference Range Interpretation [...] U APPEAR (test code = clear 3267) [facility] URINALYSIS, [id number] 17:09:00 Test Item Value Reference Range Interpretation Comments POCT U SP GRAV (test code = 1.025 mg/dl 1.005-1.025 5) POCT PH U (test code = 3254) [...] (test code = negative Negative - Negative 326) POCT U BLD (test code = 3257) negative Negative - Negative POCT U COLOR (test code = yellow 3266) POCT U APPEAR (test code = clear 3267) [facility]"
[2022-03-01 15:59] LABS: Absolute Lymphocytes (CBC) 4.4 K/uL (0.7-4.9); Hematocrit 43.4 % (39.6-49.0); Lymphocytes % 44.9 % (15.3-44.8); MCV 90.9 fL (80-100); MPV 9.3 fL (7.6-11.3); RBC Red Blood Cell Count 4.77 M/uL (4.33-5.43)
[2022-03-01 16:29] LABS: Albumin 3.6 g/dL (3.4-5.0); Bilirubin Total 0.9 mg/dL (0.2-1.0); Potassium 3.7 mmol/L (3.5-5.1); Protein, Total 7.3 g/dL (6.4-8.2)
--- NOTE | 2022-03-01 17:23 | RAD REPORT ---
EXAM DESCRIPTION: CTAbdomen Pelvis W Contrast - 03/01/2022 5:09 pm CLINICAL HISTORY: hematochezia COMPARISON: Abdomen Pelvis W Contrast dated 02/20/2018; Abdomen Pelvis W Contrast dated 05/06/2016 ; CT ABD PELVIS W CONTRAST dated 03/23/2012 TECHNIQUE: CT of the abdomen and pelvis was performed with IV contrast. All CT scans are performed using dose optimization technique as appropriate and may include automated exposure control or mA/KV adjustment according to patient size. FINDINGS: Lower chest: Bilateral calcified pleural plaques. Aortic valve prosthesis. Sternotomy. Mil d circumferential thickened distal esophagus. Liver: No acute abnormality or suspicious lesions. Biliary: No biliary ductal dilatation. Stomach: No significant focal abnormality. Duodenum: No significant focal abnormality. Pancreas: No significant abnormality. Spleen: No significant abnormality. Adrenal: No suspicious lesions. Kidney/ureter: No hydronephrosis. No renal calculi. Too small to characterize and/or benign appearing renal lesions are noted. Retroperitoneum: No retroperitoneal adenopathy. Vascular: No aneurysm. Bowel: A few colonic diverticula. No evidence of acute diverticulitis.. Peritoneum: No ascites or free air. Small fat containing inguinal hernias. Bladder: Grossly unremarkable. Reproductive: No adnexal masses. TURP defect . Bones: No acute fracture. Remote L1 compression fracture. Other: n/a IMPRESSION: No acute intra-abdominal or pelvic finding. Incidental findings as noted above.
[2022-03-01 19:22] LABS: Protime INR 1.7
--- NOTE | 2022-03-01 20:00 | EDPHYS ---
Physician Documentation [facility] Name: Rusty Yarbrough Age: 87 yrs Sex: Male : 1935 Arrival Date: 03/01/2022 Time: 14:29 Bed 10 Private MD: ED Physician Sathish Mckeon HPI: 03/01 14:58 This 87 yrs old Male presents to ER via Ambulatory with complaints of Bloody jmm Stools. 14:58 Is an 87-year-old male with history of aortic stenosis, gastric ulcers that presents jmm emerged part with complaints of bright red bowel movements which he initially noticed yesterday. Patient denies any increased weakness or shortness of breath. Patient does currently take Coumadin due to an aortic valve replacement. Denies chest pain.. Historical: - Allergies: 15:05 Benadryl; ld1 15:05 Enalapril; ld1 - Home Meds: 15:12 oxybutynin chloride 5 mg Oral tab 1 tab [Active]; amlodipine 5 mg tab 1 tab once daily ld1 [Active]; tamsulosin 0.4 mg oral cap 1 cap once daily [Active]; atorvastatin 20 mg oral tab 1 tab once daily [Active]; warfarin 5 mg Oral tab 1 tab once daily [Active]; - PMHx: 15:05 "heart valve replacement"; Aortic Stenosis; Ataxia; acute, resolved now; bleeding ld1 ulcers; CAD; Cerebrovascular accident; COPD; dyspnea; fatigue; Hyperlipidemia; Hypertension; Hypertensive disorder; Hypokalemia; melena; Myocardial infarction; syncope; Tachycardia; TIA; Vertigo; - Immunization history:: Adult Immunizations up to date, Client reports receiving the 2nd dose of the Covid vaccine. - Social history:: Smoking status: Patient denies any tobacco usage or history of. Patient/guardian denies using alcohol. ROS: 14:58 Constitutional: Negative for fever, chills, and weight loss, Cardiovascular: Negative jmm for chest pain, palpitations, and edema, Respiratory: Negative for shortness of breath, cough, wheezing, and pleuritic chest pain. 14:58 Abdomen/GI: Positive for rectal bleeding. 14:58 All other systems are negative. Exam: 14:58 Constitutional: This is a well developed, well nourished patient who is awake, alert, jmm and in no acute distress. Head/Face: atraumatic. Eyes: EOMI, no conjunctival erythema appreciated ENT: Moist Mucus Membranes Neck: Trachea midline, Supple Chest/axilla: Normal chest wall appearance and motion. Cardiovascular: Regular rate and rhythm. No edema appreciated Respiratory: Normal respirations, no respiratory distress appreciated Abdomen/GI: Non distended Back: Normal ROM Skin: General appearance color normal MS/ Extremity: Moves all extremities, no obvious deformities appreciated, no edema noted to the lower extremities 14:58 Neuro: Awake and alert Psych: Behavior is normal, Mood is normal, Patient is cooperative and pleasant 14:58 Abdomen/GI: Rectal exam: Stool: normal, guaiac positive. Vital Signs: 15:03 BP 146 / 73; Pulse 63; Resp 18; Temp 98.2(O); Pulse Ox 98% on R/A; Weight 73.94 kg; ld1 Height 5 ft. 10 in. (177.80 cm); Pain 0/10; 18:58 BP 139 / 65; Pulse 71; Resp 18; Pulse Ox 98% on R/A; em6 20:00 BP 138 / 66; Pulse 76; Resp 18; Pulse Ox 98% ; em6 15:03 Body Mass Index 23.39 (73.94 kg, 177.80 cm) ld1 MDM: 14:59 Patient medically screened. [facility] 19:59 Data reviewed: vital signs, nurses notes. Counseling: I had a detailed discussion with [facility] the patient and/or guardian regarding: the historical points, exam findings, and any diagnostic results supporting the discharge/admit diagnosis, the need for outpatient follow up, to return to the emergency department if symptoms worsen or persist or if there are any questions or concerns that arise at home. 03/01 14:58 Order name: CBC with Diff; Complete Time: 16:03 [facility] 03/01 14:58 Order name: CMP; Complete Time: 16:30 [facility] 03/01 14:58 Order name: Lipase; Complete Time: 16:30 [facility] 03/01 14:58 Order name: Type And Screen; Complete Time: 18:33 [facility] 03/01 14:58 Order name: CT Abd/Pelvis - IV Contrast Only; Complete Time: 17:25 [facility] 03/01 18:40 Order name: PT-INR; Complete Time: 19:22 [facility] 03/01 14:58 Order name: IV Saline Lock; Complete Time: 15:09 [facility] 03/01 14:58 Order name: Labs collected and sent; Complete Time: 15:09 [facility] Administered Medications: No medications were administered Disposition Summary: 03/01/22 20:00 Discharge Ordered Location: Home [facility] Condition: Stable [facility] Diagnosis - GI Bleed/ Gastrointestinal hemorrhage, unspecified jmm Followup: [facility] - With: Yousif Narvaez MD - When: 2 - 3 days - Reason: Recheck today's complaints, Continuance of care, Re-evaluation by your physician Discharge Instructions: - Discharge Summary Sheet [facility] - Rectal Bleeding [facility] - Lower Gastrointestinal Bleeding [facility] Forms: - Medication Reconciliation Form [facility] - Thank You Letter [facility] - Antibiotic Education [facility] - Prescription Opioid Use [facility] Prescriptions: - Colace 100 mg Oral Tablet - take 1 tablet by ORAL route every 12 hours; 14 tablet; Refills: 0, Product [facility] Selection Permitted Signatures: Dispatcher [employer] Samy Walter PA PA Diann Lundberg, RN RN ld1
--- NOTE | 2022-03-01 20:00 | ER ---
Nurse's Notes [facility] Name: Rusty Yarbrough Age: 87 yrs Sex: Male : 1935 Arrival Date: 03/01/2022 Time: 14:29 Bed 10 Private MD: Diagnosis: GI Bleed/ Gastrointestinal hemorrhage, unspecified Presentation: 03/01 15:03 Chief complaint: Patient states: Blood in stool since yesterday evening. Bright red in ld1 color. Coronavirus screen: At this time, the client does not indicate any symptoms associated with coronavirus-19. Ebola Screen: No symptoms or risks identified at this time. Initial Sepsis Screen: Does the patient meet any 2 criteria? No. Patient's initial sepsis screen is negative. Does the patient have a suspected source of infection? No. Patient's initial sepsis screen is negative. Risk Assessment: Do you want to hurt yourself or someone else? Patient reports no desire to harm self or others. Onset of symptoms was March 01, 2022. 15:03 Method Of Arrival: Ambulatory ld1 15:03 Acuity: GAYLE 3 ld1 Triage Assessment: 15:05 General: Appears in no apparent distress. comfortable, Behavior is calm, cooperative, ld1 appropriate for age. Pain: Denies pain. EENT: No signs and/or symptoms were reported regarding the EENT system. Neuro: Level of Consciousness is awake, alert, obeys commands, Oriented to person, place, time, situation. Cardiovascular: Capillary refill < 3 seconds Patient's skin is warm and dry. Respiratory: Airway is patent Respiratory effort is even, unlabored. GI: Abdomen is flat, non-distended, Reports bloody stool. : No signs and/or symptoms were reported regarding the genitourinary system. Derm: No signs and/or symptoms reported regarding the dermatologic system. Musculoskeletal: No signs and/or symptoms reported regarding the musculoskeletal system. Historical: - Allergies: 15:05 Benadryl; ld1 15:05 Enalapril; ld1 - Home Meds: 15:12 oxybutynin chloride 5 mg Oral tab 1 tab [Active]; amlodipine 5 mg tab 1 tab once daily ld1 [Active]; tamsulosin 0.4 mg oral cap 1 cap once daily [Active]; atorvastatin 20 mg oral tab 1 tab once daily [Active]; warfarin 5 mg Oral tab 1 tab once daily [Active]; - PMHx: 15:05 "heart valve replacement"; Aortic Stenosis; Ataxia; acute, resolved now; bleeding ld1 ulcers; CAD; Cerebrovascular accident; COPD; dyspnea; fatigue; Hyperlipidemia; Hypertension; Hypertensive disorder; Hypokalemia; melena; Myocardial infarction; syncope; Tachycardia; TIA; Vertigo; - Immunization history:: Adult Immunizations up to date, Client reports receiving the 2nd dose of the Covid vaccine. - Social history:: Smoking status: Patient denies any tobacco usage or history of. Patient/guardian denies using alcohol. Screenin:55 [facility] ED Fall Risk Assessment (Adult) History of falling in the last 3 months, em6 including since admission No falls in past 3 months (0 pts) Confusion or Disorientation No (0 pts) Intoxicated or Sedated No (0 pts) Impaired Gait Yes (1 pt) Mobility Assist Device Used Yes (1 pt) Altered Elimination No (0 pt) Score/Fall Risk Level 0 - 2 = Low Risk Oriented to surroundings, Maintained a safe environment, Educated pt \\T\\ family on fall prevention, incl call for assistance when getting out of bed, Assessed \\T\\ reinforced patient's understanding of fall precautions, Provided non-skid footwear, Hourly rounding (assess needs \\T\\ fall precautionary measures) done, Used ambulatory aids as needed (educated on \\T\\ assisted with), Used gait belt as appropriate. Abuse screen: Denies threats or abuse. Nutritional screening: No deficits noted. Tuberculosis screening: No symptoms or risk factors identified. Assessment: 18:55 Reassessment: see triage assessment. em6 19:55 Reassessment: Patient appears in no apparent distress at this time. No changes from em6 previously documented assessment. Patient and/or family updated on plan of care and expected duration. Pain level reassessed. Patient is alert, oriented x 3, equal unlabored respirations, skin warm/dry/pink. Vital Signs: 15:03 BP 146 / 73; Pulse 63; Resp 18; Temp 98.2(O); Pulse Ox 98% on R/A; Weight 73.94 kg; ld1 Height 5 ft. 10 in. (177.80 cm); Pain 0/10; 18:58 BP 139 / 65; Pulse 71; Resp 18; Pulse Ox 98% on R/A; em6 20:00 BP 138 / 66; Pulse 76; Resp 18; Pulse Ox 98% ; em6 15:03 Body Mass Index 23.39 (73.94 kg, 177.80 cm) ld1 ED Course: 14:29 Patient arrived in ED. mr 14:32 Samy Bravo PA is PHCP. [facility] 14:32 Sathish Mckeon MD is Attending Physician. jmm 15:05 Triage completed. ld1 15:05 Arm band placed on right wrist. ld1 15:09 Inserted saline lock: 22 gauge in right antecubital area, using aseptic technique. ld1 Blood collected. 17:11 CT Abd/Pelvis - IV Contrast Only In Process Unspecified. EDMS 18:47 Marti Brasher, RN is Primary Nurse. em6 18:55 PT-INR Sent. em6 18:56 Bed in low position. Call light in reach. Side rails up X 1. satellite project site monitor on. Pulse em6 ox on. NIBP on. Warm blanket given. 19:59 Yousif Narvaez MD is Referral Physician. m 20:25 No provider procedures requiring assistance completed. IV discontinued, intact, em6 bleeding controlled, No redness/swelling at site. Pressure dressing applied. Administered Medications: No medications were administered Medication: 20:25 VIS not applicable for this client. em6 Outcome: 20:00 Discharge ordered by . [facility] 20:25 Discharged to home ambulatory, with family. em6 20:25 Condition: stable 20:25 Condition: stable 20:25 Discharge instructions given to patient, family, Instructed on discharge instructions, follow up and referral plans. medication usage, Demonstrated understanding of instructions, follow-up care, medications, Prescriptions given X 1. 20:25 Patient left the ED. em6 Signatures: Dispatcher [employer] EDMS Samy Bravo PA PA jmm RiveraYakelin Diann Alexander, RN RN ld1 Marti Brasher, HENRRY RN em6
[2022-03-01 20:29] VITALS: TEMP 98.2; O2SAT 98
[2022-03-01 20:32] VITALS: BP 138/66
== END 2022-03-01 20:25 | disposition home or self-care (01) ==
LOC: ER 14:25
DX: K92.2 Gastrointestinal hemorrhage, unspecified (principal); Z88.8 Allergy status to other drugs, medicaments and biological substances; I10 Essential (primary) hypertension; J44.9 Chronic obstructive pulmonary disease, unspecified; Z86.73 Personal history of transient ischemic attack (TIA), and cerebral infarction without residual deficits; Z79.01 Long term (current) use of anticoagulants; Z95.2 Presence of prosthetic heart valve
CPT/HCPCS: 85025; 36415; 86900; 86850; 85610; 86901; 83690; 80053; 74177; Q9967; 99284

== ENCOUNTER 2022-04-21 10:35 | Day surgery (SDC) | payer MEDICARE ==
[2022-04-21] MEDS: Ringers Lactate 1,000 ML IV ONE ×2 (11:08→12:17)
[2022-04-21] MEDS ORDERED: propofoL 200 MG/20 ML VIAL IV ONE (11:50)
[2022-04-21] MEDS ORDERED: LIDOCAINE 2% MPF 5 ML VIAL ONE (11:51)
[2022-04-21] MEDS ORDERED: TRIAMCINOLONE ACETON 40 MG/ML VIAL ONE (12:00)
[2022-04-21] MEDS ORDERED: LIDOCAINE 1% 20 ML MDV ONE (12:01)
[2022-04-21] MEDS ORDERED: LIDOCAINE 1% MPF 30 ML VIAL ONE (12:04)
--- NOTE | 2022-04-21 14:43 | RAD REPORT ---
EXAM DESCRIPTION: RAD - Fluoroscopy <1 Hour - 04/21/2022 1:48 pm CLINICAL HISTORY: L5-S1 steroid injection. COMPARISON: None available. FINDINGS: Three images were sent to PACS, documenting needle positions during an image guided steroi d injection pain procedure. No radiologist was available for the procedure, nor will any image interp retation he provided. Please refer to the procedural report for additional details. Fluoroscopy time: 0.2 minutes. IMPRESSION: Documentation of fluoroscopy utilization as above.
[2022-04-21 17:35] VITALS: TEMP 97.9; O2SAT 98
[2022-04-21 17:37] VITALS: BP 143/54
== END 2022-04-21 13:40 | disposition home or self-care (01) ==
LOC: OR 10:35
PROVIDERS: ATTEND Pain Medicine Interventional Pain Medicine
PROC: 3E0S33Z Introduction of Anti-inflammatory into Epidural Space, Percutaneous Approach (ICD-10-PCS; principal; 2022-04-21 12:15)
DX: M54.16 Radiculopathy, lumbar region (principal)
CPT/HCPCS: 62323; J2704; J3301; J2001 ×2; J7120; 76000; Q9967

== ENCOUNTER 2022-04-27 07:13 | Day surgery (SDC) | payer MEDICARE ==
[2022-04-13 12:32] LABS: Absolute Lymphocytes (CBC) 4.5 K/uL (0.7-4.9); Hematocrit 42.2 % (39.6-49.0); Lymphocytes % 45.8 % (15.3-44.8); MCV 91.4 fL (80-100); MPV 9.1 fL (7.6-11.3); RBC Red Blood Cell Count 4.62 M/uL (4.33-5.43)
[2022-04-13 12:38] LABS: Protime INR 1.15
--- NOTE | 2022-04-13 12:39 | RAD REPORT ---
EXAM DESCRIPTION: RAD - Chest Pa And Lat (2 Views) - 04/13/2022 12:31 pm CLINICAL HISTORY: pre op for surgery Chest pain. COMPARISON: Chest Single View dated 07/20/2020; Chest Single View dated 08/08/2018; Chest Single View d ated 03/12/2018; Chest Pa And Lat (2 Views) dated 03/11/2018 FINDINGS: The lungs are clear. The heart is moderately enlarged with sternotomy wires present. Calci fied pleural plaques bilaterally compatible with prior asbestos exposure.
[2022-04-13 12:43] LABS: Potassium 3.8 mmol/L (3.5-5.1)
[2022-04-27] MEDS ORDERED: Ringers Lactate 1,000 ML IV ONE (07:41)
[2022-04-27] MEDS ORDERED: CEFAZOLIN SODIUM 2 GM/VIAL ONE (07:41)
[2022-04-27 08:11] LABS: Protime INR 1.05
[2022-04-27] MEDS ORDERED: FENTANYL CITR 100 MCG/2 ML ONE (08:52)
[2022-04-27] MEDS ORDERED: LIDOCAINE 1% MPF 5 ML VIAL ONE (08:52)
[2022-04-27] MEDS ORDERED: propofoL 200 MG/20 ML VIAL IV ONE (08:52)
[2022-04-27] MEDS ORDERED: MIDAZOLAM HCL 2 MG/2 ML INJ ONE (08:52)
[2022-04-27] MEDS ORDERED: NS 0.9% VIAL 10 ML ONE (08:53)
[2022-04-27] MEDS ORDERED: TRIAMCINOLONE ACETON 40 MG/ML VIAL ONE (09:11)
[2022-04-27] MEDS ORDERED: CIPROFLOXACIN 400mg IV 400 MG/200 ML BAG IV ONE (09:25)
[2022-04-27] MEDS ORDERED: KETOROLAC 30 MG/ML INJ ONE (09:53)
[2022-04-27] MEDS ORDERED: ONDANSETRON 4 MG/2 ML VIAL ONE (09:55)
[2022-04-27] MEDS ORDERED: GLYCOPYRROLATE 0.2 MG/ML SYR ONE ×2 (09:57)
--- NOTE | 2022-04-27 10:49 | RAD REPORT ---
EXAM DESCRIPTION: RAD - Urography Retrograde - 04/27/2022 10:38 am CLINICAL HISTORY: RETROGRADE COMPARISON: No comparisons FINDINGS: Significant urethral stricture is noted involving the bulbar region of the urethra. Approx imately length is 25 mm. Total fluoro time: 8 seconds
[2022-04-27] MEDS ORDERED: PHENAZOPYRIDINE 100MG TAB PO ONE ×2 (11:08→12:25)
[2022-04-27] MEDS ORDERED: CODEINE 30MG/APAP 300MG TAB PO PRN (11:08)
[2022-04-27 11:36] VITALS: O2SAT 97
[2022-04-27 12:07] VITALS: BP 121/66; TEMP 96.6
--- NOTE | 2022-04-27 12:17 | OP ---
Surgeon: JONATHAN SINHA Preoperative Diagnoses: 1.Urethral stricture disease. 2.Florid incontinence. 3.Chronic bacterial colonization of urine. Postoperative Diagnoses: 1.Urethral stricture disease. 2.Florid incontinence. 3.Chronic bacterial colonization of urine. 4.Bulbar urethral stricture disease, approximately 1.5-2 cm in length. 5.Spongiofibrosis of the stricture disease. Principal Procedures: 1.Retrograde urethrogram under anesthesia. 2.Direct vision internal urethrotomy. 3.Cystoscopy. 4.Injection of 80 mg Kenalog intralesional/in the stricture incised. 5.Placement of a 20-Gibraltarian urethral Tee catheter. Indication For Procedure: Mr. Yarbrough presented to the [facility] with a perineal bulbar urethral stricture, potentially causing a degree of obstruction associated with a history of urinary retentio n requiring a chronic indwelling Tee catheter. He had associated gross hematuria and thus underwen t cystoscopic evaluation revealing the presence of what was an 8-Gibraltarian approximately urethral strict ure within the perineal bulbar urethra as estimated with a flexible cystoscope. As a result, he was given the option for clinic based dilation or operative management. He elected to proceed with opera tive management and was prepared for the procedure today. Procedure In Detail: The patient was consented in the preoperative holding area before being transfe rred to the operative suite where general anesthesia was induced. He was given ciprofloxacin 400 mg IV antimicrobial prophylaxis given the colonization seen within his urine. He initially was placed i n the left lateral decubitus position with a gel roll beneath his right flank and his left knee bent in order to expose the pelvis. His genitalia were prepped with Hibiclens and a 16-Gibraltarian urethral ca theter was placed just into the meatus and fossa navicularis. Approximately 2-3 cc of saline was inj ected into the balloon to inflate in the fossa navicularis and a retrograde pyelogram was performed. Retrograde pyelography: The patient was floridly incontinent and dripping urine constantly after he was placed under anesthes ia. Of note, he was wearing a Depends undergarment that was soaked. The urine backed up was so sign ificant that it was dripping out of the catheter after it had been placed just into the meatus. As a result, I connected a 60 cc catheter tip syringe with contrast within and using fluoroscopic guidanc e, I injected the contrast with the phallus on stretch and delineated a normal distal urethra with a proximal narrowing just distal to the bulb. This narrowing was estimated to be about 1.[address], but that distance would be measured once the images are uploaded. Proximally, the contrast inst illed into his bladder and thus the limits of the stricture were well delineated. As a result, I rem abdifatah the saline from the balloon and removed the 16-Gibraltarian catheter and then the patient was replaced into the supine position and then into the lithotomy position. His genitalia were then completely p repped with Hibiclens and draped in standard fashion, and the case was begun using urethral sounds to dilate the meatus and fossa navicularis to 30-Gibraltarian. I then inserted the urethrotome with an obtur ator into the meatus and fossa navicularis and then inserted the 12-degree lens with the urethrotome knife. I was able to then visualize the urethra and traversed it down to the level of the stricture, which was observed. At this point, the stricture did appear to be approximately only 3 to 5-Gibraltarian in diameter. As a result, I utilized the cold knife to incise the stricture at first at the 12 o'feliciano ck position until I was through the spongiofibrosis and into tissue that was healthy-appearing and bl eeding. I then turned my attention and the camera around to the 7 o'clock position and similarly inc ised the stricture until there was active bleeding noted in that location. A similar incision was ma de at the 5 o'clock position until bleeding tissue was encounter. I then attempted to navigate the u rethrotome beyond this point of obstruction, but of note, there was ventrally a very dense mass of ti ssue that still prohibited passage. As a result, I surveyed the area further and incised a bit more anteriorly as well as bilaterally until I was able to navigate beyond the obstruction and placed the entire 24-Gibraltarian urethrotome via his prostatic urethra into his bladder. Of note, evidence of prior TUR defect of the prostate was present, and the bladder was decompressed of fluid urine. I then surv eyed the bladder in its entirety, and it was free of mucosal lesion, foreign body or stone. There wa s a small cellular diverticular formation in the right posterior wall of the bladder. The ureteral o rifices were orthotopic in location. While the bladder was somewhat erythematous in appearance, it d id not appear to have significant signs of cystitis. As a result, I backed the scope into the urethr a and utilized an injector needle along with 80 mg of Kenalog mixed 1:1 with saline for a total of 4 cc of solution and injected the entirety of the solution into different components of and along the s tricture length incised and each of the 3 positions. Once injected, I then left his bladder full and placed a 20-Gibraltarian urethral Tee catheter with ease into the bladder and placed [address] in the balloon. The catheter was placed to gravity drainage using a leg bag, and the patient was taken out of the lithotomy position. He was then transferred to a stretcher and then to the recover y room in good condition. Complications: None. Discharge Disposition: He will be given a prescription for Cipro twice daily for the next 7 days to treat the colonization of his urine present, and he may be given a voiding trial in the [facility] somewhere between 7 and 10 days from now. As the patient was floridly incontinent at the start of the procedure and evidently incontinent even after the stricture disease was managed, he likely will be incontinent following the catheter removal. As a result, as long as he is able to void the majori ty of fluid retrograde instilled at the time of the active voiding trial, he may be discharged withou t the catheter. Subsequent followup may be established to investigate the cause of his incontinence, but also to followup redevelopment of the stricture disease, which is possible given the spongiofibr osis noted, with repeat cystoscopy in around 2-3 months. COLLEEN/MODL Voice ID: [id number] Report ID: [id number]
[2022-04-27] MEDS ORDERED: CODEINE 30MG/APAP 300MG TAB ONE (12:25)
== END 2022-04-27 13:17 | disposition home or self-care (01) ==
LOC: OR 07:13
PROVIDERS: ATTEND Urology
PROC: 3E0K83Z Introduction of Anti-inflammatory into Genitourinary Tract, Via Natural or Artificial Opening Endoscopic (ICD-10-PCS; 2022-04-27)
PROC: 0TBD8ZZ Excision of Urethra, Via Natural or Artificial Opening Endoscopic (ICD-10-PCS; principal; 2022-04-27 08:30)
DX: N35.919 Unspecified urethral stricture, male, unspecified site (principal); N39.498 Other specified urinary incontinence; Z22.39 Carrier of other specified bacterial diseases
CPT/HCPCS: 0499T; 52276; 36415; 71046; 74420; 80048; 85025; 85610; 87077; 87086; 87088; 87186; 93005; A4216; J0744; J2001; J2250; J2405; J2704; J3010; J3301; J7120

== ENCOUNTER 2022-07-12 18:34 | Observation (INO) | payer MEDICARE ==
--- OUTSIDE RECORDS SUMMARY | 2022-07-12 18:44 | XMS REPORT | Continuity of Care Document ---
:1935 Author Organization [facility] [place] t Address [address] [facility] [address] [place] [id number] Care Team Providers Name Role Phone Provider, Unknown Primary Care Physician Unavailable Shawn Perry Attending Clinician Unavailable ZOYA MIRANDA Attending Clinician Unavailable CECILIO MOLINA Attending Clinician Unavailable Carley GREEN Attending Clinician Unavailable Carley Correia Attending Clinician Doctor Unassigned, [place] Attending Clinician Unavailable DAVID HILL Attending Clinician Unavailable Ruddy GAGE, Queenie Clifton Attending Clinician [phone] Kwadwo GAGE, Yusra Attending Clinician Miguelina GAGE, Oscar Attending Clinician Melita GAGE, David Attending Clinician Juanita GAGE, Eduardo Sandhu Attending Clinician Kory PAC, Marquis S Attending Clinician Ajibade_O_AH Attending Clinician Unavailable Joyce GAGE, Robbie Attending Clinician ROBBIE CAR Attending Clinician Unavailable Nurse, [facility] Surgery Gu Attending Clinician Unavailable Chico Mccall DO Attending Clinician Gloria Bridges Attending Clinician , [facility] Surg Spec Procedure Attending Clinician Unavailable Ige-Odun[place]_J_AH Attending Clinician Unavailable JULIET MILLER Attending Clinician Unavailable LASHON VALLADARES Attending Clinician Unavailable ZOYA MIRANDA Admitting Clinician Unavailable CECILIO MOLINA Admitting Clinician Unavailable Carley GREEN Admitting Clinician Unavailable YUSRA SETHI Admitting Clinician Unavailable Daniel_O_AH Admitting Clinician Unavailable FIDELINA FAROOQ Admitting Clinician Unavailable Ige-[place]_J_AH Admitting Clinician Unavailable Payers Payer Name Policy Type Policy Number Effective Date Expiration Date S musa [employer] [place] [id number] 2018 CLASSIC/VALUE 00:00:00 AARP/MEDICARE [id number] 2015 COMPLETE 00:00:00 [employer] MEDICARE ADV [id number] 2019 00:00:00 [employer] HEALTH [id number] 2021 (MEDICARE 00:00:00 REPLACEMENT HMO) [employer] HEALTH [id number] 2021 MEDICARE ADVANTAGE 00:00:00 [facility] [id number] 2019 [place] (MEDICARE 00:00:00 REPLACEMENT/ADVANTA GE - HMO) [place] [id number] 2020 MEDICARE/HMO 00:00:00 AARP NADIA ADVANTAGE [id number] 2015 [facility] 00:00:00 MEDICARE PART A \\T\\ [id number] 2015 B - MEDICARE 00:00:00 Problems Condition [...] Hyperlipid Problem Active [facility] ill[facility] emia emia 03-10 Family 00:00: Practic 00 e Hypertensi Hypertensi Problem Active [facility] ill[facility] ve ve -04 Family disorder Disorder 00:00: Practi c 00 e 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 00:00: Practic block Block 00 e Cardiac Cardiac Problem Active [facility] arrhythmia Arrhythmia 1-04 [facility] 00:00: Practic 00 e Cerebrovas Cerebrovas Problem Active [facility] ill[facility] cular cular 1-04 Family accident Accident 00:00: Practi c 00 e Asthma Asthma Problem Active [facility] 1-04 Family 00:00: Practic 00 e 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 ICD10 Diagnosis Term Lining Stuffer Utility Other Other Disease Active Univers secondary secondary 04-09 ity of hypertensi hypertens[place], benign on, benign 00 Me dical Branch Obstructiv Obstructiv Disease Active Overview : Univers e sleep e sleep 04-09 Formattin ity o f apnea apnea 00:00: g of this [place] note Medical might be Branch different from the original. ICD10 Diagnosis Term Lining Stuffer Utility HLD HLD Disease Active Overview: Univer s (hyperlipi (hyperlipi 04-09 Formattin ity of demia) demia) 00:00: g of this [place] note Medical might be Branch different from the original. 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 in [facility], [facility] type Hematuria Hematuria Problem Com mon [facility] [id number] Urinary Problem Commo n incontinen Spirit [facility], [facility] [id number] Bladder Problem Commo n spasms [facility] [id number] Urinary Problem Commo n retention [facility] [id number] S/P Problem Common radiation [facility] therapy [facility] [id number] 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 Center [place] heart without angina pectoris Prostate Prostate Problem Commo n cancer cancer [facility] Allergies, Adverse Reactions, Alerts Allergy Allergy [...] ALLERGIE Class ity of S [facility] Family History Family Member Diagnosis Comments Start Date Stop Date Source Natural [facility] Natural father [facility] Natural father Stroke [facility] Natural mother [facility] Natural sister Diabetes [facility] Social History Social Habit Start Date Stop Date Quantity Comments Source History of Tobacco [facility] Sexual orientation Method [facility] Gender identity [facility] History SDOH [facility] Alcohol Frequency Medical Center History SDOH [facility] Alcohol Std Drinks Medica Center History SDOH [facility] Alcohol Binge Medical [facility] ter Exposure to 2021-08-22 2021-09-01 Not sure University of SARS-CoV-2 (event) 00:00:00 17:20:00 [facility] Alcohol intake 2019-04-24 2019-04-24 Current [facility] 00:00:00 00:00:00 non-drinker of Hospital alcohol (finding) History of Social 2019-04-24 2019-04-[address] 00:00:00 00:00:00 Hospital Alcohol Comment 2015-01-19 2015-01-[address] [facility] 00:[facility]:00 00:00:00 Medical [place] Tobacco use and 2015-01-19 2015-01-[address] [facility] exposure 00:00:00 00:00:00 [facility] Sex Assigned At [birth year] [facility] 00:00:00 00:00:00 Hospital Smoking Status Start Date Stop Date Source Never Smoker [facility] Ce nter Ex-smoker 2019-12-29 00:00:00 2019-12-29 00:00:00 [facility] Unknown if ever smoked Universit y [facility] Medications Ordered Filled Start Stop Current Ordering [...] infusion 2 ONCE, 1 g dose, On 09/01/21 at 1915, Routine cephALEXin 2021- No [id number] 500mg Take 1 Univers (KEFLEX) 09-0109 capsule by ity of 500 mg 00:00: 04:59 mouth 3 [place] capsule 00 :00 (three) Medical times Branch daily for 10 days. aspirin 81 Yes 81mg QD Take [address] [facility] EC 2-02 by mouth [facility] tablet 12:45: daily. [address] atorvastati Yes 40mg QD Take [address] [facility] (LIPITOR) 2-02 by mouth Luke s 40 MG 12:45: daily. Medical [place] [address] Center tamsulosin Yes .4mg QD Take 0.[address] (FLOMAX) 2-02 mg by [facility]ukes 0.4 mg Cp24 12:45: mouth Medic al 24 hr 42 daily. Center capsule HYDROcodone Yes 1{tbl} Take [address] -acetaminop 2-02 tablet by Gilberto es hen (NORCO 12:45: mouth Medica l 5-325) 42 every 8 Center 5-325 mg (eight) per tablet hours as needed for Pain. aspirin 81 Yes 81mg QD Take [address] MG EC 2-02 by mouth [facility] tablet 12:45: daily. Medical 42 Center atorvastati Yes 40mg QD Take [address] [facility] (LIPITOR) 2-02 by mouth Luke s 40 MG 12:45: daily. Medical tablet 42 Center tamsulosin Yes .4mg QD Take 0.[address] (FLOMAX) 2-02 mg by [facility]ukes 0.4 mg Cp24 12:45: mouth Medic al 24 hr 42 daily. Center capsule HYDROcodone Yes 1{tbl} Take [address] -acetaminop 2-02 tablet by Gilberto es hen (NORCO 12:45: mouth Medica l 5-325) 42 every 8 Center 5-325 mg (eight) per tablet hours as needed for Pain. warfarin 2021- No 6mg QD Take [address] (COUMADIN, 04-08 by mouth Luke s JANTOVEN) 6 11:00: 00:00 daily. Med ical MG tablet 48 :00 [place] warfarin 2021- No 5mg QD Take [address] (COUMADIN, 04-08 03-04 tablet (5 Gilberto es JANTOVEN) 5 00:00: 23:59 mg total) Medical MG tablet 00 :00 by mouth Center daily for 30 days. enoxaparin 2021- No 80mg Inject 0.[address] (LOVENOX) 04-07-02 mLs (80 mg Gilberto es 80 mg/0.8 00:00: 00:00 total) Medic al mL Syrg 00 :00 subcutaneo Center usly every 12 (twelve) hours for 5 days. diclofenac 2021- No 75mg Q.5D Take [address] (VOLTAREN) 04-04 by mouth 2 Jasen kes 75 MG EC 04:49: 00:00 (two) Medical tablet 47 :00 times Center daily. diclofenac 2020-03 Yes [id number] 75mg Take 1 Univers 75 mg EC 1-01 9109 tablet by ity of tablet 00:00: mouth 2 [place] (two) Medical times Branch daily with meals. diclofenac 2020-03 Yes [id number] 75mg Take 1 Univers 75 mg EC 1-01 9109 tablet by ity of tablet 00:00: mouth 2 [place] (two) Medical times Branch daily with meals. diclofenac 2020-03 Yes [id number] 75mg Take 1 Univers 75 mg EC 1- 9109 tablet by ity of tablet 00:00: mouth 2 [place] (two) Medical times Branch daily with meals. diclofenac 2020-03 Yes [id number] 75mg Take 1 Univers 75 mg EC 1- 9109 tablet by ity of tablet 00:00: mouth 2 [place] (two) Medical times Branch daily with meals. diclofenac 2020- No [id number] 75mg Take 1 Univers 75 mg EC 8-10 09-10 9109 tablet by ity o f tablet 00:00: 04:59 mouth 2 [place] 00 :00 (two) Medical times Branch daily with meals for 30 days. diclofenac Yes [id number] 75mg Take 1 Univers 75 mg EC 7-08 9109 tablet by ity of tablet 00:00: mouth 2 [place] (two) Medical times Branch daily with meals. diclofenac Yes [id number] 75mg Take 1 Univers 75 mg EC 7-08 9109 tablet by ity of tablet 00:00: mouth 2 [place] (two) Medical times Branch daily with meals. diclofenac Yes [id number] 75mg Take 1 Univers 75 mg EC 7-08 9109 tablet by ity of tablet 00:00: mouth 2 [place] (two) Medical times Branch daily with meals. diclofenac 2020- No [id number] 75mg Take 1 Univers 75 mg EC 7-08 - 9109 tablet by ity o f tablet 00:00: 00:00 mouth 2 [place] 00 :00 (two) Medical times Branch daily with meals. diclofenac Yes [id number] 75mg Take 1 Univers 75 mg EC 6-10 9109 tablet by ity of tablet 00:00: mouth (two) Medical times Branch daily with meals. diclofenac 2021-0 Yes [id number] 75mg Take 1 Univers 75 mg EC 6-10 9109 tablet by ity of tablet 00:00: mouth (two) Medical times Branch daily with meals. diclofenac 2021-0 Yes [id number] 75mg Take 1 Univers 75 mg EC 6-10 9109 tablet by ity of tablet 00:00: mouth (two) Medical times Branch daily with meals. diclofenac 2021-0 Yes [id number] 75mg Take 1 Univers 75 mg EC 6-10 9109 tablet by ity of tablet 00:00: mouth (two) Medical times Branch daily with meals. diclofenac 2021-0 Yes [id number] 75mg Take 1 Univers 75 mg EC 6-10 9109 tablet by ity of tablet 00:00: mouth (two) Medical times Branch daily with meals. diclofenac 2021-0 Yes [id number] 75mg Take 1 Univers 75 mg EC 6-10 9109 tablet by ity of tablet 00:00: mouth (two) Medical times Branch daily with meals. diclofenac 2021-0 Yes [id number] 75mg Take 1 Univers 75 mg EC 6-10 9109 tablet by ity of tablet 00:00: mouth (two) Medical times Branch daily with meals. diclofenac 2021-0 Yes [id number] 75mg Take 1 Univers 75 mg EC [...] daily with meals. diclofenac 2021-0 2021- No [id number] 75mg Take 1 Univers 75 mg EC 3-22 06-26 9109 tablet by ity o f tablet [...] tablet by ity of tablet 00:00: mouth [place] (two) Medical times Branch daily with meals. diclofenac 2021-0 Yes 75mg Take 1 Unive rs 75 mg EC 1-14 tablet by ity of tablet 00:00: mouth [place] (two) Medical times Branch daily with meals. diclofenac 2021-0 Yes 75mg Take 1 Unive rs 75 mg EC 1-14 tablet by ity of tablet 00:00: mouth 2 [place] (two) Medical times Branch daily with meals. diclofenac 2021-0 Yes 75mg Take 1 Unive rs 75 mg EC 1-14 tablet by ity of tablet 00:00: mouth 2 [place] (two) Medical times Branch daily with meals. diclofenac 2021-0 Yes 75mg Take 1 Unive rs 75 mg EC 1-14 tablet by ity of tablet 00:00: mouth [place] (two) Medical times Branch daily with meals. diclofenac 2021-0 Yes 75mg Take 1 Unive rs 75 mg EC 1-14 tablet by ity of tablet 00:00: mouth [place] (two) Medical times Branch daily with meals. diclofenac 2021-0 Yes 75mg Take 1 Unive rs 75 mg EC 1-14 tablet by ity of tablet 00:00: mouth [place] (two) Medical times Branch daily with meals. diclofenac 2020-1 2020- No [id number] 75mg Take 1 Univers 75 mg EC 1-23 12-24 9109 tablet by ity o f tablet 00:00: 05:[address] [place] [address] 00 :00 (two) Medical times Branch daily with meals for 30 days. diclofenac 2020-0 Yes [id number] 75mg Take 1 Univers 75 mg EC 7-14 9109 tablet by ity of tablet 00:00: mouth [address] [place] [address] (two) Medical times Branch daily with meals. diclofenac 2020-0 Yes [id number] 75mg Take 1 Univers 75 mg EC 7-14 9109 tablet by ity of tablet 00:00: mouth 2 [place] (two) Medical times Branch daily with meals. diclofenac 2020-0 Yes [id number] 75mg Take 1 Univers 75 mg EC 7-14 9109 tablet by ity of tablet 00:00: mouth 2 [place] (two) Medical times Branch daily with meals. diclofenac 2020-0 Yes [id number] 75mg Take 1 Univers 75 mg EC 7-14 9109 tablet by ity of tablet 00:00: mouth (two) Medical times Branch daily with meals. diclofenac 2020-0 Yes [id number] 75mg Take 1 Univers 75 mg EC 7-14 9109 tablet by ity of tablet 00:00: mouth (two) Medical times Branch daily with meals. diclofenac 2020-0 Yes [id number] 75mg Take 1 Univers 75 mg EC 7-14 9109 tablet by ity of tablet 00:00: mouth (two) Medical times Branch daily with meals. diclofenac 2020-0 Yes [id number] 75mg Take 1 Univers 75 mg EC 7-14 9109 tablet by ity of tablet 00:00: mouth (two) Medical times Branch daily with meals. diclofenac 2020-0 Yes [id number] 75mg Take 1 Univers 75 mg EC 7-14 9109 tablet by ity of tablet 00:00: mouth (two) Medical times Branch daily with meals. diclofenac 2020-0 Yes [id number] 75mg Take 1 Univers 75 mg EC 7-14 9109 tablet by ity of tablet 00:00: mouth (two) Medical times Branch daily with meals. diclofenac 2020-0 Yes [id number] 75mg Take 1 Univers 75 mg EC 7-14 9109 tablet by ity of tablet 00:00: mouth [place] (two) Medical times Branch daily with meals. diclofenac 2020-0 Yes [id number] 75mg Take 1 Univers 75 mg EC 7-14 9109 tablet by ity of tablet 00:00: mouth (two) Medical times Branch daily with meals. diclofenac 2020-0 Yes [id number] 75mg Take 1 Univers 75 mg EC 7-14 9109 tablet by ity of tablet 00:00: mouth (two) Medical times Branch daily with meals. diclofenac 2020-0 Yes [id number] 75mg Take 1 Univers 75 mg EC 7-14 9109 tablet by ity of tablet 00:00: mouth (two) Medical times Branch daily with meals. diclofenac 2020-0 Yes [id number] 75mg Take 1 Univers 75 mg EC 7-14 9109 tablet by ity of tablet 00:00: mouth (two) Medical times Branch daily with meals. diclofenac 2020-0 Yes [id number] 75mg Take 1 Univers 75 mg EC 7-14 9109 tablet by ity of tablet 00:00: mouth 2 (two) Medical times Branch daily with meals. diclofenac 2020-0 Yes [id number] 75mg Take 1 Univers 75 mg EC 7-14 9109 tablet by ity of tablet 00:00: mouth 2 (two) Medical times Branch daily with meals. diclofenac 2020-0 Yes [id number] 75mg Take 1 Univers 75 mg EC 7-14 9109 tablet by ity of tablet 00:00: mouth 2 (two) Medical times Branch daily with meals. diclofenac 2020-0 Yes [id number] 75mg Take 1 Univers 75 mg EC 7-14 9109 tablet by ity of tablet 00:00: mouth 2 (two) Medical times Branch daily with meals. diclofenac 2020-0 Yes [id number] 75mg Take 1 Univers 75 mg EC 7-14 9109 tablet by ity of tablet 00:00: mouth 2 (two) Medical times Branch daily with meals. diclofenac 2020-0 Yes [id number] 75mg Take 1 Univers 75 mg EC 7-14 9109 tablet by ity of tablet 00:00: mouth (two) Medical times Branch daily with meals. diclofenac 2020-0 Yes [id number] 75mg Take 1 Univers 75 mg EC 7-14 9109 tablet by ity of tablet 00:00: mouth (two) Medical times Branch daily with meals. diclofenac 2020-0 Yes [id number] 75mg Take 1 Univers 75 mg EC 7-14 9109 tablet by ity of tablet 00:00: mouth (two) Medical times Branch daily with meals. diclofenac 2020-0 Yes [id number] 75mg Take 1 Univers 75 mg EC 7-14 9109 tablet by ity of tablet 00:00: mouth (two) Medical times Branch daily with meals. amoxicillin 2020-0 Yes [id number] 500mg Take 1 Univers 500 mg 6-28 capsule by ity of capsule 00:00: mouth 3 (three) Medical times Branch daily. amoxicillin 2020-0 Yes [id number] 500mg Take 1 Univers 500 mg 6-28 capsule by ity of capsule 00:00: mouth 3 (three) Medical times Branch daily. amoxicillin 2020-0 Yes [id number] 500mg Take 1 Univers 500 mg 6-28 capsule by ity of capsule 00:00: mouth (three) Medical times Branch daily. amoxicillin 2020-0 Yes [id number] 500mg Take 1 Univers 500 mg 6-28 capsule by ity of capsule 00:00: mouth (three) Medical times Branch daily. amoxicillin 2020-0 Yes [id number] 500mg Take 1 Univers 500 mg 6-28 capsule by ity of capsule 00:00: mouth (three) Medical times Branch daily. amoxicillin 2020-0 Yes [id number] 500mg Take 1 Univers 500 mg 6-28 capsule by ity of capsule 00:00: mouth (three) Medical times Branch daily. amoxicillin 2020-0 Yes [id number] 500mg Take 1 Univers 500 mg 6-28 capsule by ity of capsule 00:00: mouth (three) Medical times Branch daily. amoxicillin 2020-0 Yes [id number] 500mg Take 1 Univers 500 mg 6-28 capsule by ity of capsule 00:00: mouth (three) Medical times Branch daily. amoxicillin 2020-0 Yes [id number] 500mg Take 1 Univers 500 mg 6-28 capsule by ity of capsule 00:00: mouth (three) Medical times Branch daily. amoxicillin 2020-0 Yes [id number] 500mg Take 1 Univers 500 mg 6-28 capsule by ity of capsule 00:00: mouth (three) Medical times Branch daily. amoxicillin 2020-0 Yes [id number] 500mg Take 1 Univers 500 mg 6-28 capsule by ity of capsule 00:00: mouth (three) Medical times Branch daily. amoxicillin 2020-0 Yes [id number] 500mg Take 1 Univers 500 mg 6-28 capsule by ity of capsule 00:00: mouth (three) Medical times Branch daily. amoxicillin 2020-0 Yes [id number] 500mg Take 1 Univers 500 mg 6-28 capsule by ity of capsule 00:00: mouth (three) Medical times Branch daily. amoxicillin 2020-0 Yes [id number] 500mg Take 1 Univers 500 mg 6-28 capsule by ity of capsule 00:00: mouth 3 (three) Medical times Branch daily. amoxicillin 2020-0 Yes [id number] 500mg Take 1 Univers 500 mg 6-28 capsule by ity of capsule 00:00: mouth (three) Medical times Branch daily. amoxicillin 2020-0 Yes [id number] 500mg Take 1 Univers 500 mg 6-28 capsule by ity of capsule 00:00: mouth (three) Medical times Branch daily. amoxicillin 2020-0 Yes [id number] 500mg Take 1 Univers 500 mg 6-28 capsule by ity of capsule 00:00: mouth 3 (three) Medical times Branch daily. amoxicillin 2020-0 Yes [id number] 500mg Take 1 Univers 500 mg 6-28 capsule by ity of capsule 00:00: mouth (three) Medical times Branch daily. amoxicillin 2020-0 Yes [id number] 500mg Take 1 Univers 500 mg 6-28 capsule by ity of capsule 00:00: mouth (three) Medical times Branch daily. amoxicillin 2020-0 Yes [id number] 500mg Take 1 Univers 500 mg 6-28 capsule by ity of capsule 00:00: mouth (three) Medical times Branch daily. amoxicillin 2020-0 Yes [id number] 500mg Take 1 Univers 500 mg 6-28 capsule by ity of capsule 00:00: mouth (three) Medical times Branch daily. amoxicillin 2020-0 Yes [id number] 500mg Take 1 Univers 500 mg 6-28 capsule by ity of capsule 00:00: mouth (three) Medical times Branch daily. amoxicillin 2020-0 Yes [id number] 500mg Take 1 Univers 500 mg 6-28 capsule by ity of capsule 00:00: mouth (three) Medical times Branch daily. amoxicillin 2020-0 Yes [id number] 500mg Take 1 Univers 500 mg 6-28 [...] daily with meals. mirabegron 2020-0 2020- No [id number] 25mg Take 1 Univers 25 mg 6-05 07-06 tablet by ity of tablet 00:00: 04:59 mouth [place] 00 :00 daily for Medical 30 days. Branch mirabegron 2020-0 2020- No [id number] 25mg Take 1 Univers 25 mg 6-05 07-06 tablet by ity of tablet 00:00: 04:59 mouth [place] 00 :00 daily for Medical 30 days. Branch mirabegron 2020-0 2020- No [id number] 25mg Take 1 Univers 25 mg 6-05 07-06 tablet by ity of tablet 00:00: 04:59 mouth [place] 00 :00 daily for Medical 30 days. Branch mirabegron 2020-0 2020- No [id number] 25mg Take 1 Univers 25 mg 6-05 07-06 tablet by ity of tablet 00:00: 04:59 mouth [place] 00 :00 daily for Medical 30 days. Branch mirabegron 2020-0 2020- No [id number] 25mg Take 1 Univers 25 mg 6-05 07-06 tablet by ity of tablet 00:00: 04:59 mouth [place] 00 :00 daily for Medical 30 days. Branch mirabegron 2020-0 2020- No [id number] 25mg Take 1 Univers 25 mg 6-05 [...] by ity of tablet 00:00: mouth 2 [place] 00 (two) Medical times Branch daily with meals. diclofenac 2020-0 2020- No 75mg Take 1 Univ ers 75 mg EC 3-17 07-14 tablet by ity o f tablet 00:00: 00:00 mouth 2 [place] 00 :00 (two) Medical times Branch daily with meals. gentamicin 2019-0 2020- No 80mg Univer s [...] for Anti-Infec tive: Surgical Prophylaxi s
Surgi ezekeil Prophylaxi s: Genitourin michelle
Dur ation of therapy: within 24 hours of surgery cephALEXin 2020-0 2020- No [id number] 500mg Take 2 Univers 250 mg 05-04 capsules ity of capsule 00:00: 05:59 by mouth [place] 00 :00 every 12 Medical (twelve) Branch hours for 3 days. cephALEXin 2020-0 2020- No [id number] 500mg Take 2 Univers 250 mg -01 06- capsules ity of capsule 00:00: 05:59 by mouth [place] 00 :00 every 12 Medical (twelve) Branch hours for 3 days. atorvastati 2020-0 Yes 20mg Take 20 mg Univers n 20 mg 2-20 by mouth ity of tablet 00:00: daily. [place] Medical Branch metoprolol 2020-0 Yes 25mg Take 25 mg U nivers tartrate 25 2-20 by mouth 2 it y of mg tablet 00:00: (two) [place] 00 times Medical daily. Branch atorvastati 2020-0 Yes 20mg Take 20 mg Univers n 20 mg 2-20 by mouth ity of tablet 00:00: daily. [place] Medical Branch metoprolol 2020-0 Yes 25mg Take 25 mg U nivers tartrate 25 2-20 by mouth 2 it y of mg tablet 00:00: (two) [place] 00 times Medical daily. Branch atorvastati 2020-0 Yes 20mg Take 20 mg Univers n 20 mg 2-20 by mouth ity of tablet 00:00: daily. [place] Medical Branch metoprolol 2020-0 Yes 25mg Take 25 mg U nivers tartrate 25 2-20 by mouth 2 it y of mg tablet 00:00: (two) [place] 00 times Medical daily. Branch atorvastati 2020-0 Yes 20mg Take 20 mg Univers n 20 mg 2-20 by mouth ity of tablet 00:00: daily. [place] Medical Branch metoprolol 2020-0 Yes 25mg Take 25 mg U nivers tartrate 25 2-20 by mouth 2 it y of mg tablet 00:00: (two) [place] 00 times Medical daily. Branch atorvastati 2020-0 Yes 20mg Take 20 mg Univers n 20 mg 2-20 by mouth ity of tablet 00:00: daily. [place] Medical Branch metoprolol 2020-0 Yes 25mg Take 25 mg U nivers tartrate 25 2-20 by mouth 2 it y of mg tablet 00:00: (two) [place] times Medical daily. Branch atorvastati 2020-0 Yes [...] it y of mg tablet 00:00: (two) [place] 00 times Medical daily. Branch atorvastati 2020-0 Yes 20mg Take 20 mg Univers n 20 mg 2-20 by mouth ity of tablet 00:00: daily. Medical Branch metoprolol 2020-0 Yes 25mg Take 25 mg U nivers tartrate 25 2-20 by mouth 2 it y of mg tablet 00:00: (two) [place] 00 times Medical daily. Branch atorvastati 2020-0 Yes 20mg Take 20 mg Univers n 20 mg 2-20 by mouth ity of tablet 00:00: daily. Medical Branch metoprolol 2020-0 Yes 25mg Take 25 mg U nivers tartrate 25 2-20 by mouth 2 it y of mg tablet 00:00: (two) [place] 00 times Medical daily. Branch atorvastati 2020-0 Yes 20mg Take 20 mg Univers n 20 mg 2-20 by mouth ity of tablet 00:00: daily. Medical Branch metoprolol 2020-0 Yes 25mg Take 25 mg U nivers tartrate 25 2-20 by mouth 2 it y of mg tablet 00:00: (two) [place] 00 times Medical daily. Branch atorvastati 2020-0 Yes 20mg Take 20 mg [facility] 20 mg 2-20 by mouth ity of tablet 00:00: daily. [facility] metoprolol 2020-0 Yes 25mg Take 25 mg U n[facility] tartrate 25 2-20 by mouth 2 it y of mg tablet 00:00: (two) [place] 00 times Medical daily. Branch atorvastati 2020-0 Yes 20mg Take 20 mg [facility] 20 mg 2-20 by mouth ity of tablet 00:00: daily. [facility] metoprolol 2020-0 Yes 25mg Take 25 mg [facility] n[facility] tartrate 25 2-20 by mouth 2 it y of mg tablet 00:00: (two) [place] 00 times Medical daily. Branch atorvastati 2020-0 Yes 20mg Take 20 mg [facility] 20 mg 2-20 by mouth ity of tablet 00:00: daily. [place] [facility] metoprolol 2020-0 Yes 25mg Take 25 mg [facility] n[facility] tartrate 25 2-20 by mouth 2 it y of mg tablet 00:00: (two) [place] 00 times Medical daily. Branch atorvastati 2020-0 Yes 20mg Take 20 mg [facility] 20 mg 2-20 by mouth ity of tablet 00:00: daily. [place] [facility] metoprolol 2020-0 Yes 25mg Take 25 mg [facility] n[facility] tartrate 25 2-20 by mouth 2 it y of mg tablet 00:00: (two) [place] 00 times Medical daily. Branch atorvastati 2020-0 Yes 20mg Take 20 mg [facility] 20 mg 2-20 by mouth ity of tablet 00:00: daily. [place] [facility] metoprolol 2020-0 Yes 25mg Take 25 mg [facility] n[facility] tartrate 25 2-20 by mouth 2 it y of mg tablet 00:00: (two) [place] 00 times Medical daily. Branch atorvastati 2020-0 Yes 20mg Take 20 mg [facility] 20 mg 2-20 by mouth ity of tablet 00:00: daily. [place] [facility] metoprolol 2020-0 Yes 25mg Take 25 mg U nivers tartrate 25 2-20 by mouth 2 it y of mg tablet 00:00: (two) [place] 00 times Medical daily. Branch atorvastati 2020-0 Yes 20mg Take 20 mg [facility] n 20 mg 2-20 by mouth ity of tablet 00:00: daily. [place] [facility] metoprolol 2020-0 Yes 25mg Take 25 mg [facility] nivers tartrate 25 2-20 by mouth 2 it y of mg tablet 00:00: (two) [place] 00 times Medical daily. Branch atorvastati 2020-0 Yes 20mg Take 20 mg [facility] n 20 mg 2-20 by mouth ity of tablet 00:00: daily. [place] [facility] metoprolol 2020-0 Yes 25mg Take 25 mg [facility] n[facility] tartrate 25 2-20 by mouth 2 it y of mg tablet 00:00: (two) [place] 00 times Medical daily. Branch atorvastati 2020-0 Yes 20mg Take 20 mg [facility] n 20 mg 2-20 by mouth ity of tablet 00:00: daily. [facility] metoprolol 2020-0 Yes 25mg Take 25 mg [facility] nivers tartrate 25 2-20 by mouth 2 it y of mg tablet 00:00: (two) [place] 00 times Medical daily. Branch atorvastati 2020-0 Yes 20mg Take 20 mg [facility] 20 mg 2-20 by mouth ity of tablet 00:00: daily. [facility] metoprolol 2020-0 Yes 25mg Take 25 mg [facility] n[facility] tartrate 25 2-20 by mouth 2 it y of mg tablet 00:00: (two) [place] times Medical daily. Branch atorvastati 2020-0 Yes 20mg Take 20 mg [facility] 20 mg 2-20 by mouth ity of tablet 00:00: daily. [place] [facility] metoprolol 2020-0 Yes 25mg Take 25 mg [facility] n[facility] tartrate 25 2-20 by mouth 2 it y of mg tablet 00:00: (two) [place] times Medical daily. Branch atorvastati 2020-0 Yes 20mg Take 20 mg [facility] 20 mg 2-20 by mouth ity of tablet 00:00: daily. [facility] metoprolol 2020-0 Yes 25mg Take 25 mg [facility] n[facility] tartrate 25 2-20 by mouth 2 it y of mg tablet 00:00: (two) [place] times Medical daily. Branch atorvastati 2020-0 Yes 20mg Take 20 mg [facility] 20 mg 2-20 by mouth ity of tablet 00:00: daily. [facility] metoprolol 2020-0 Yes 25mg Take 25 mg [facility] tartrate 25 2-20 by mouth 2 it y of mg tablet 00:00: (two) [place] 00 times Medical daily. Branch atorvastati 2020-0 Yes 20mg Take 20 mg [facility] n 20 mg 2-20 by mouth ity of tablet 00:00: daily. [facility] metoprolol 2020-0 Yes 25mg Take 25 mg [facility] tartrate 25 2-20 by mouth 2 it y of mg tablet 00:00: (two) [place] times Medical daily. Branch atorvastati 2020-0 Yes 20mg Take 20 mg [facility] n 20 mg 2-20 by mouth ity of tablet 00:00: daily. [facility] metoprolol 2020-0 Yes 25mg Take 25 mg [facility] n[facility] tartrate 25 2-20 by mouth 2 it y of mg tablet 00:00: (two) [place] 00 times Medical daily. Branch atorvastati 2020-0 Yes 20mg Take 20 mg [facility] n 20 mg 2-20 by mouth ity of tablet 00:00: daily. [facility] metoprolol 2020-0 Yes 25mg Take 25 mg [facility] nivers tartrate 25 2-20 by mouth 2 it y of mg tablet 00:00: (two) [place] 00 times Medical daily. Branch atorvastati 2020-0 Yes 20mg Take 20 mg [facility] n 20 mg 2-20 by mouth ity of tablet 00:00: daily. [facility] metoprolol 2020-0 Yes 25mg Take 25 mg [facility] nivers tartrate 25 2-20 by mouth 2 it y of mg tablet 00:00: (two) [place] times Medical daily. Branch atorvastati 2020-0 Yes 20mg Take 20 mg [facility] n 20 mg 2-20 by mouth ity of tablet 00:00: daily. [facility] metoprolol 2020-0 Yes 25mg Take 25 mg [facility] nivers tartrate 25 2-20 by mouth 2 it y of mg tablet 00:00: (two) [place] 00 times Medical daily. Branch atorvastati 2020-0 Yes 20mg Take 20 mg [facility] n 20 mg 2-20 by mouth ity of tablet 00:00: daily. [facility] metoprolol 2020-0 Yes 25mg Take 25 mg [facility] tartrate 25 2-20 by mouth 2 it y of mg tablet 00:00: (two) [place] 00 times Medical daily. Branch atorvastati 2020-0 Yes 20mg Take 20 mg [facility] n 20 mg 2-20 by mouth ity of tablet 00:00: daily. [facility] metoprolol 2020-0 Yes 25mg Take 25 mg [facility] tartrate 25 2-20 by mouth 2 it y of mg tablet 00:00: (two) [place] 00 times Medical daily. Branch atorvastati 2020-0 Yes 20mg Take 20 mg [facility] n 20 mg 2-20 by mouth ity of tablet 00:00: daily. [facility] metoprolol 2020-0 Yes 25mg Take 25 mg [facility] tartrate 25 2-20 by mouth 2 it y of mg tablet 00:00: (two) [place] 00 times Medical daily. Branch atorvastati 2020-0 Yes 20mg Take 20 mg [facility] n 20 mg 2-20 by mouth ity of tablet 00:00: daily. [facility] metoprolol 2020-0 Yes 25mg Take 25 mg [facility] tartrate 25 2-20 by mouth 2 it y of mg tablet 00:00: (two) [place] 00 times Medical daily. Branch atorvastati 2020-0 Yes 20mg Take 20 mg [facility] n 20 mg 2-20 by mouth ity of tablet 00:00: daily. [facility] metoprolol 2020-0 Yes 25mg Take 25 mg [facility] n[facility] tartrate 25 2-20 by mouth 2 it y of mg tablet 00:00: (two) [place] times Medical daily. Branch atorvastati 2020-0 Yes 20mg Take 20 mg [facility] n 20 mg 2-20 by mouth ity of tablet 00:00: daily. [place] [facility] metoprolol 2020-0 Yes 25mg Take 25 mg [facility] tartrate 25 2-20 by mouth 2 it y of mg tablet 00:00: (two) [place] times Medical daily. Branch atorvastati 2020-0 Yes 20mg Take 20 mg [facility] n 20 mg 2-20 by mouth ity of tablet 00:00: daily. [place] [facility] metoprolol 2020-0 Yes 25mg Take 25 mg [facility] nivers tartrate 25 2-20 by mouth 2 it y of mg tablet 00:00: (two) [place] 00 times Medical daily. Branch atorvastati 2020-0 Yes 20mg Take 20 mg [facility] n 20 mg 2-20 by mouth ity of tablet 00:00: daily. [place] [facility] metoprolol 2020-0 Yes 25mg Take 25 mg [facility] nivers tartrate 25 2-20 by mouth 2 it y of mg tablet 00:00: (two) [place] 00 times Medical daily. Branch atorvastati 2020-0 Yes 20mg Take 20 mg [facility] n 20 mg 2-20 by mouth ity of tablet 00:00: daily. [place] [facility] metoprolol 2020-0 Yes 25mg Take 25 mg [facility] nivers tartrate 25 2-20 by mouth 2 it y of mg tablet 00:00: (two) [place] times Medical daily. Branch atorvastati 2020-0 Yes 20mg Take 20 mg [facility] n 20 mg 2-20 by mouth ity of tablet 00:00: daily. [facility] metoprolol 2020-0 Yes 25mg Take 25 mg [facility] nivers tartrate 25 2-20 by mouth 2 it y of mg tablet 00:00: (two) [place] times Medical daily. Branch atorvastati 2020-0 Yes 20mg Take 20 mg [facility] n 20 mg 2-20 by mouth ity of tablet 00:00: daily. [facility] metoprolol 2020-0 Yes 25mg Take 25 mg [facility] nivers tartrate 25 2-20 by mouth 2 it y of mg tablet 00:00: (two) [place] times Medical daily. Branch atorvastati 2020-0 Yes 20mg Take 20 mg [facility] n 20 mg 2-20 by mouth ity of tablet 00:00: daily. [place] [facility] metoprolol 2020-0 Yes 25mg Take 25 mg [facility] nivers tartrate 25 2-20 by mouth 2 it y of mg tablet 00:00: (two) [place] times Medical daily. Branch atorvastati 2020-0 Yes 20mg Take 20 mg [facility] n 20 mg 2-20 by mouth ity of tablet 00:00: daily. [facility] metoprolol 2020-0 Yes 25mg Take 25 mg [facility] nivers tartrate 25 2-20 by mouth 2 it y of mg tablet 00:00: (two) [place] times Medical daily. Branch atorvastati 2020-0 Yes 20mg Take 20 mg [facility] n 20 mg 2-20 by mouth ity of tablet 00:00: daily. [facility] metoprolol 2020-0 Yes 25mg Take 25 mg [facility] tartrate 25 2-20 by mouth 2 it y of mg tablet 00:00: (two) [place] times Medical daily. Branch atorvastati 2020-0 Yes 20mg Take 20 mg [facility] n 20 mg 2-20 by mouth ity of tablet 00:00: daily. [facility] Branch metoprolol 2020-0 Yes 25mg Take 25 mg [facility] tartrate 25 2-20 by mouth 2 it y of mg tablet 00:00: (two) [place] times Medical daily. Branch tamsulosin 2020-0 Yes .4mg QD Take 0.4 [facility] (FLOMAX) 2-[address] 0.4 mg 15:14: [facility] daily. l tamsulosin 2020-0 Yes .4mg QD Take 0.4 [facility] (FLOMAX) 2-[address] 0.4 mg 15:14: [facility] capsule 49 daily. l tamsulosin 2020-0 Yes Take by [facility] ers 0.4 mg 24 2-14 mouth ity of hr capsule 17:20: daily. [place] [address] Medical Branch om 2020-0 Yes Take by Univers 3/E/linol/a 2-14 mouth. ity of la/oleic/gl 17:20: [place] a/lip 21 Medical (OMEGA Branch 3-6-9 ORAL) tamsulosin 2020-0 Yes Take by Univ ers 0.4 mg 24 2-14 mouth ity of hr capsule 17:20: daily. [place] [address] [facility] Branch om 2020-0 Yes Take by [facility] 3/E/linol/a 2-14 mouth. ity of la/oleic/gl 17:20: [place] a/lip 21 Medical (OMEGA Branch 3-6-9 ORAL) tamsulosin 2020-0 Yes Take by [facility] ers 0.4 mg 24 2-14 mouth ity of hr capsule 17:20: daily. [place] [address] [facility] Branch om 2020-0 Yes Take by [facility] 3/E/linol/a 2-14 mouth. ity of la/oleic/gl 17:20: [place] a/lip 21 Medical (OMEGA Branch 3-6-9 ORAL) tamsulosin 2020-0 Yes Take by [facility] ers 0.4 mg 24 2-14 mouth ity of hr capsule 17:20: daily. [place] [address] [facility] Branch om 2020-0 Yes Take by [facility] 3/E/linol/a 2-14 mouth. ity of la/oleic/gl 17:20: [place] a/lip 21 Medical (OMEGA Branch 3-6-9 ORAL) tamsulosin 2020-0 Yes Take by [facility] ers 0.4 mg 24 2-14 mouth ity of hr capsule 17:20: daily. [place] [address] [facility] Branch om 2020-0 Yes Take by [facility] 3/E/linol/a 2-14 mouth. ity of la/oleic/gl 17:20: [place] a/lip 21 Medical (OMEGA Branch 3-6-9 ORAL) tamsulosin 2020-0 Yes Take by [facility] ers 0.4 mg 24 2-14 mouth ity of hr capsule 17:20: daily. [place] [address] [facility] Branch om 2020-0 Yes Take by [facility] 3/E/linol/a 2-14 mouth. ity of la/oleic/gl 17:20: [place] a/lip 21 Medical (OMEGA Branch 3-6-9 ORAL) tamsulosin 2020-0 Yes Take by [facility] ers 0.4 mg 24 2-14 mouth ity of hr capsule 17:20: daily. [place] [address] [facility] Branch om 2020-0 Yes Take by [facility] 3/E/linol/a 2-14 mouth. ity of la/oleic/gl 17:20: [place] a/lip 21 Medical (OMEGA Branch 3-6-9 ORAL) tamsulosin 2019-0 Yes Take by [facility] ers 0.4 mg 24 2-14 mouth ity of hr capsule 17:20: daily. [place] [address] [facility] Branch om 2020-0 Yes Take by [facility] 3/E/linol/a 2-14 mouth. ity of la/oleic/gl 17:20: [place] a/lip 21 Medical (OMEGA Branch 3-6-9 ORAL) tamsulosin 2019-0 Yes Take by [facility] ers 0.4 mg 24 2-14 mouth ity of hr capsule 17:20: daily. [place] [address] [facility] Branch om 2020-0 Yes Take by [facility] 3/E/linol/a 2-14 mouth. ity of la/oleic/gl 17:20: [place] a/lip 21 Medical (OMEGA Branch 3-6-9 ORAL) tamsulosin 2020-0 Yes Take by [facility] ers 0.4 mg 24 2-14 mouth ity of hr capsule 17:20: daily. [place] [address] [facility] Branch om 2020-0 Yes Take by [facility] 3/E/linol/a 2-14 mouth. ity of la/oleic/gl 17:20: [place] a/lip 21 Medical (OMEGA Branch 3-6-9 ORAL) tamsulosin 2020-0 Yes Take by [facility] ers 0.4 mg 24 2-14 mouth ity of hr capsule 17:20: daily. [place] [address] [facility] Branch om 2020-0 Yes Take by [facility] 3/E/linol/a 2-14 mouth. ity of la/oleic/gl 17:20: [place] a/lip 21 Medical (OMEGA Branch 3-6-9 ORAL) tamsulosin 2020-0 Yes Take by [facility] ers 0.4 mg 24 2-14 mouth ity of hr capsule 17:20: daily. [place] [address] [facility] Branch om 2020-0 Yes Take by [facility] 3/E/linol/a 2-14 mouth. ity of la/oleic/gl 17:20: [place] a/lip 21 Medical (OMEGA Branch 3-6-9 ORAL) tamsulosin 2020-0 Yes Take by [facility] ers 0.4 mg 24 2-14 mouth ity of hr capsule 17:20: daily. [place] [address] [facility] Branch om 2020-0 Yes Take by [facility] 3/E/linol/a 2-14 mouth. ity of la/oleic/gl 17:20: [place] a/lip 21 Medical (OMEGA Branch 3-6-9 ORAL) tamsulosin 2020-0 Yes Take by Uni vers 0.4 mg 24 2-14 mouth ity of hr capsule 17:20: daily. [place] [address] [facility] Branch om 2020-0 Yes Take by [facility] 3/E/linol/a 2-14 mouth. ity of la/oleic/gl 17:20: [place] a/lip 21 Medical (OMEGA Branch 3-6-9 ORAL) tamsulosin 2020-0 Yes Take by [facility] ers 0.4 mg 24 2-14 mouth ity of hr capsule 17:20: daily. [place] [address] [facility] Branch om 2020-0 Yes Take by [facility] 3/E/linol/a 2-14 mouth. ity of la/oleic/gl 17:20: [place] a/lip 21 Medical (OMEGA Branch 3-6-9 ORAL) tamsulosin 2020-0 Yes Take by [facility] ers 0.4 mg 24 2-14 mouth ity of hr capsule 17:20: daily. [place] [address] [facility] Branch om 2020-0 Yes Take by [facility] 3/E/linol/a 2-14 mouth. ity of la/oleic/gl 17:20: [place] a/lip 21 Medical (OMEGA Branch 3-6-9 ORAL) tamsulosin 2020-0 Yes Take by [facility] ers 0.4 mg 24 2-14 mouth ity of hr capsule 17:20: daily. [place] [address] [facility] Branch om 2020-0 Yes Take by [facility] 3/E/linol/a 2-14 mouth. ity of la/oleic/gl 17:20: [place] a/lip 21 Medical (OMEGA Branch 3-6-9 ORAL) tamsulosin 2020-0 Yes Take by [facility] ers 0.4 mg 24 2-14 mouth ity of hr capsule 17:20: daily. [place] [address] [facility] Branch om 2020-0 Yes Take by [facility] 3/E/linol/a 2-14 mouth. ity of la/oleic/gl 17:20: [place] a/lip 21 Medical (OMEGA Branch 3-6-9 ORAL) tamsulosin 2020-0 Yes Take by [facility] ers 0.4 mg 24 2-14 mouth ity of hr capsule 17:20: daily. [place] [address] [facility] Branch om 2020-0 Yes Take by [facility] 3/E/linol/a 2-14 mouth. ity of la/oleic/gl 17:20: [place] a/lip 21 Medical (OMEGA Branch 3-6-9 ORAL) tamsulosin 2020-0 Yes Take by [facility] ers 0.4 mg 24 2-14 mouth ity of hr capsule 17:20: daily. [place] [address] [facility] Branch om 2020-0 Yes Take by [facility] 3/E/linol/a 2-14 mouth. ity of la/oleic/gl 17:20: [place] a/lip 21 Medical (OMEGA Branch 3-6-9 ORAL) tamsulosin 2020-0 Yes Take by [facility] ers 0.4 mg 24 2-14 mouth ity of hr capsule 17:20: daily. [place] [address] [facility] Branch om 2020-0 Yes Take by [facility] 3/E/linol/a 2-14 mouth. ity of la/oleic/gl 17:20: [place] a/lip 21 Medical (OMEGA Branch 3-6-9 ORAL) tamsulosin 2020-0 Yes Take by [facility] ers 0.4 mg 24 2-14 mouth ity of hr capsule 17:20: daily. [place] [address] [facility] Branch om 2020-0 Yes Take by [facility] 3/E/linol/a 2-14 mouth. ity of la/oleic/gl 17:20: [place] a/lip 21 Medical (OMEGA Branch 3-6-9 ORAL) tamsulosin 2020-0 Yes Take by [facility] ers 0.4 mg 24 2-14 mouth ity of hr capsule 17:20: daily. [place] [address] [facility] Branch om 2020-0 Yes Take by [facility] 3/E/linol/a 2-14 mouth. ity of la/oleic/gl 17:20: [place] a/lip 21 Medical (OMEGA Branch 3-6-9 ORAL) tamsulosin 2020-0 Yes Take by [facility] ers 0.4 mg 24 2-14 mouth ity of hr capsule 17:20: daily. [place] [address] [facility] Branch om 2020-0 Yes Take by [facility] 3/E/linol/a 2-14 mouth. ity of la/oleic/gl 17:20: [place] a/lip 21 Medical (OMEGA Branch 3-6-9 ORAL) tamsulosin 2020-0 Yes Take by [facility] ers 0.4 mg 24 2-14 mouth ity of hr capsule 17:20: daily. [place] [address] [facility] Branch om 2020-0 Yes Take by [facility] 3/E/linol/a 2-14 mouth. ity of la/oleic/gl 17:20: [place] a/lip 21 Medical (OMEGA Branch 3-6-9 ORAL) tamsulosin 2020-0 Yes Take by [facility] ers 0.4 mg 24 2-14 mouth ity of hr capsule 17:20: daily. [place] [address] [facility] Branch om 2020-0 Yes Take by [facility] 3/E/linol/a 2-14 mouth. ity of la/oleic/gl 17:20: [place] a/lip 21 Medical (OMEGA Branch 3-6-9 ORAL) tamsulosin 2020-0 Yes Take by [facility] ers 0.4 mg 24 2-14 mouth ity of hr capsule 17:20: daily. [place] [address] [facility] Branch om 2020-0 Yes Take by [facility] 3/E/linol/a 2-14 mouth. ity of la/oleic/gl 17:20: [place] a/lip 21 Medical (OMEGA Branch 3-6-9 ORAL) tamsulosin 2020-0 Yes Take by [facility] ers 0.4 mg 24 2-14 mouth ity of hr capsule 17:20: daily. [place] [address] [facility] Branch om 2020-0 Yes Take by [facility] 3/E/linol/a 2-14 mouth. ity of la/oleic/gl 17:20: [place] a/lip 21 Medical (OMEGA Branch 3-6-9 ORAL) tamsulosin 2020-0 Yes Take by [facility] ers 0.4 mg 24 2-14 mouth ity of hr capsule 17:20: daily. [place] [address] [facility] Branch om 2020-0 Yes Take by [facility] 3/E/linol/a 2-14 mouth. ity of la/oleic/gl 17:20: [place] a/lip 21 Medical (OMEGA Branch 3-6-9 ORAL) tamsulosin 2020-0 Yes Take by [facility] ers 0.4 mg 24 2-14 mouth ity of hr capsule 17:20: daily. [place] [address] [facility] Branch tamsulosin 2020-0 Yes Take by [facility] ers 0.4 mg 24 2-14 mouth ity of hr capsule 17:20: daily. [place] [address] [facility] Branch om 2020-0 Yes Take by [facility] 3/E/linol/a 2-14 mouth. ity of la/oleic/gl 17:20: [place] a/lip 21 Medical (OMEGA Branch 3-6-9 ORAL) om 2020-0 Yes Take by [facility] 3/E/linol/a 2-14 mouth. ity of la/oleic/gl 17:20: [place] a/lip 21 Medical (OMEGA Branch 3-6-9 ORAL) tamsulosin 2020-0 Yes Take by [facility] ers 0.4 mg 24 2-14 mouth ity of hr capsule 17:20: daily. [place] [address] [facility] Branch om 2020-0 Yes Take by [facility] 3/E/linol/a 2-14 mouth. ity of la/oleic/gl 17:20: [place] a/lip 21 Medical (OMEGA Branch 3-6-9 ORAL) tamsulosin 2020-0 Yes Take by [facility] ers 0.4 mg 24 2-14 mouth ity of hr capsule 17:20: daily. [place] [address] [facility] Branch om 2020-0 Yes Take by [facility] 3/E/linol/a 2-14 mouth. ity of la/oleic/gl 17:20: [place] a/lip 21 Medical (OMEGA Branch 3-6-9 ORAL) tamsulosin 2020-0 Yes Take by [facility] ers 0.4 mg 24 2-14 mouth ity of hr capsule 17:20: daily. [place] [address] [facility] Branch om 2020-0 Yes Take by [facility] 3/E/linol/a 2-14 mouth. ity of la/oleic/gl 17:20: [place] a/lip 21 Medical (OMEGA Branch 3-6-9 ORAL) tamsulosin 2020-0 Yes Take by [facility] ers 0.4 mg 24 2-14 mouth ity of hr capsule 17:20: daily. [place] [address] [facility] Branch om 2020-0 Yes Take by [facility] 3/E/linol/a 2-14 mouth. ity of la/oleic/gl 17:20: [place] a/lip 21 Medical (OMEGA Branch 3-6-9 ORAL) tamsulosin 2020-0 Yes Take by [facility] ers 0.4 mg 24 2-14 mouth ity of hr capsule 17:20: daily. [place] [address] [facility] Branch om 2020-0 Yes Take by [facility] 3/E/linol/a 2-14 mouth. ity of la/oleic/gl 17:20: [place] a/lip 21 Medical (OMEGA Branch 3-6-9 ORAL) tamsulosin 2020-0 Yes Take by [facility] ers 0.4 mg 24 2-14 mouth ity of hr capsule 17:20: daily. [place] [address] [facility] Branch om 2020-0 Yes Take by [facility] 3/E/linol/a 2-14 mouth. ity of la/oleic/gl 17:20: [place] a/lip 21 Medical (OMEGA Branch 3-6-9 ORAL) tamsulosin 2020-0 Yes Take by [facility] ers 0.4 mg 24 2-14 mouth ity of hr capsule 17:20: daily. [place] [address] [facility] Branch om 2020-0 Yes Take by [facility] 3/E/linol/a 2-14 mouth. ity of la/oleic/gl 17:20: [place] a/lip 21 Medical (OMEGA Branch 3-6-9 ORAL) tamsulosin 2020-0 Yes Take by [facility] ers 0.4 mg 24 2-14 mouth ity of hr capsule 17:20: daily. [place] [address] [facility] Branch om 2020-0 Yes Take by [facility] 3/E/linol/a 2-14 mouth. ity of la/oleic/gl 17:20: [place] a/lip 21 Medical (OMEGA Branch 3-6-9 ORAL) tamsulosin 2020-0 Yes Take by [facility] ers 0.4 mg 24 2-14 mouth ity of hr capsule 17:20: daily. [place] [address] [facility] Branch om 2020-0 Yes Take by [facility] 3/E/linol/a 2-14 mouth. ity of la/oleic/gl 17:20: [place] a/lip 21 Medical (OMEGA Branch 3-6-9 ORAL) tamsulosin 2020-0 Yes Take by [facility] ers 0.4 mg 24 2-14 mouth ity of hr capsule 17:20: daily. [place] [address] [facility] Branch om 2020-0 Yes Take by [facility] 3/E/linol/a 2-14 mouth. ity of la/oleic/gl 17:20: [place] a/lip 21 Medical (OMEGA Branch 3-6-9 ORAL) tamsulosin 2020-0 Yes Take by [facility] ers 0.4 mg 24 2-14 mouth ity of hr capsule 17:20: daily. [place] [address] [facility] Branch om 2020-0 Yes Take by [facility] 3/E/linol/a 2-14 mouth. ity of la/oleic/gl 17:20: [place] a/lip 21 Medical (OMEGA Branch 3-6-9 ORAL) tamsulosin 2020-0 Yes Take by [facility] ers 0.4 mg 24 2-14 mouth ity of hr capsule 11:20: daily. [place] [address] [facility] Branch om 2020-0 Yes Take by [facility] 3/E/linol/a 2-14 mouth. ity of la/oleic/gl 11:20: [place] a/lip 21 Medical (OMEGA Branch 3-6-9 ORAL) tamsulosin 2020-0 Yes Take by [facility] ers 0.4 mg 24 2-14 mouth ity of hr capsule 11:20: daily. [place] [address] [facility] Branch om 2020-0 Yes Take by [facility] 3/E/linol/a 2-14 mouth. ity of la/oleic/gl 11:20: [place] a/lip 21 Medical (OMEGA Branch 3-6-9 ORAL) tamsulosin 2020-0 Yes Take by [facility] ers 0.4 mg 24 2-14 mouth ity of hr capsule 11:20: daily. [place] [address] [facility] Branch om 2020-0 Yes Take by [facility] 3/E/linol/a 2-14 mouth. ity of la/oleic/gl 11:20: [place] a/lip 21 Medical (OMEGA Branch 3-6-9 ORAL) tamsulosin 2020-0 Yes Take by [facility] ers 0.4 mg 24 2-14 mouth ity of hr capsule 11:20: daily. [place] [address] [facility] Branch om 2020-0 Yes Take by [facility] 3/E/linol/a 2-14 mouth. ity of la/oleic/gl 11:20: [place] a/lip 21 Medical (OMEGA Branch 3-6-9 ORAL) diclofenac 2018-03 2020- No [id number] 75mg Take 1 [facility] 75 mg EC 05-03 9109 tablet by ity o f tablet 00:00: 05:59 mouth 2 [place] 00 :00 (two) Medical times Branch daily with meals for 60 days. diclofenac 2018-03- No [id number] 75mg Take 1 [facility] 75 mg EC 2- 9109 tablet by ity o f tablet 00:00: 05:59 mouth 2 [place] 00 :00 (two) Medical times Branch daily with meals for 60 days. diclofenac 2018-03- No [id number] 75mg Take 1 [facility] 75 mg EC 2- 9109 tablet by ity o f tablet 00:00: 05:59 mouth 2 [place] 00 :00 (two) Medical times Branch daily with meals for 60 days. diclofenac 2018-03- No [id number] 75mg Take 1 [facility] 75 mg EC 205-02 9109 tablet by ity o f tablet 00:00: 05:59 mouth 2 [place] 00 :00 (two) Medical times Branch daily with meals for 60 days. diclofenac Yes [id number] 75mg Take 1 [facility] 75 mg EC 8-28 9109 tablet by ity of tablet 00:00: mouth 2 [place] 00 (two) Medical times Branch daily with meals. diclofenac Yes [id number] 75mg Take 1 [facility] 75 mg EC 8-02 9109 tablet by ity of tablet 00:00: mouth 2 [place] 00 (two) Medical times Branch daily with meals. diclofenac Yes [id number] 75mg Take 1 [facility] 75 mg EC 8-02 9109 tablet by ity of tablet 00:00: mouth 2 [place] 00 (two) Medical times Branch daily with meals. diclofenac 2019- No [id number] 75mg Take 1 [facility] 75 mg EC 8-02 - 9109 tablet by ity o f tablet 00:00: 00:00 mouth 2 [place] 00 :00 (two) Medical times Branch daily [...] ta 00 (six) l hours as needed. traMADol 2017-03 Yes 50mg Q6H Take 50 mg [facility] (ULTRAM) 50 0-[address] mg tablet 00:00: every 6 [facility] ta 00 (six) l hours as needed. atorvastati atorvastati No atorvastat [...] oral route. hydrocodone hydrocodone No 1 Q4H hydrocodon [place] 10 10 e 10 Family mg-acetamin mg-acetamin mg-acetami Pract[facility] ophen 325 ophen 325 nophen 325 e mg tablet mg tablet mg tablet Take 1 Take 1 Take 1 tablet tablet tablet every 4 every 4 every 4 hours by hours by hours by oral route. oral route. oral route. No known No [facility] medications [facility] [place] [facility] No known No [facility] medications [facility] of [facility] hydrocodone hydrocodone No hydrocodon [facility] 5 5 e 5 Family mg-acetamin mg-acetamin mg-acetami Practic ophen 325 ophen 325 nophen 325 e mg tablet mg tablet mg tablet TAKE 1 TAKE 1 TAKE 1 TABLET BY TABLET BY TABLET BY MOUTH THREE MOUTH THREE MOUTH TIMES DAILY TIMES DAILY THREE TIMES DAILY metoprolol metoprolol No metoprolol [facility] tartrate 25 tartrate 25 tartrate Family mg tablet mg tablet 25 mg Prac tic TAKE 1 TAKE 1 tablet e TABLET BY TABLET BY TAKE 1 MOUTH TWICE MOUTH TWICE TABLET BY DAILY DAILY MOUTH TWICE DAILY Myrbetriq Myrbetriq No Myrbetriq [facility] 25 mg 25 mg 25 mg [...] DISPENSING DISPENSING DISPENSING prednisone prednisone No prednisone [facility] 5 mg tablet 5 mg tablet [...] 5 t} Besylate 5 MG MG MG Tamsulosin Tamsulosin No 1{capsu QD Tamsulosin HCl 0.4 MG HCl 0.4 MG le} HCl 0.4 MG Lipitor 20 Lipitor 20 No 1{table QD Lipitor 20 MG MG t} MG Warfarin Warfarin No 1{table QD Warfarin Sodium 5 MG Sodium 5 MG t} Sodium 5 MG amLODIPine amLODIPine No 1{table QD amLODIPine Besylate 5 Besylate 5 t} Besylate 5 MG MG MG Ditropan XL Ditropan XL 2022- No Ditropan 5 MG 5 MG 06-15 XL 5 MG 00:00 :00 Ditropan XL Ditropan XL 2022- Ditropan 5 MG 5 MG 06-15 XL 5 MG 00:00 :00 Immunizations Ordered Immunization Filled Immunization Date Status Commen ts Source Name Name pneumococcal pneumococcal 2019-03-31 Completed [facility] Fa marie polysaccharide PPV23 polysaccharide PPV23 00:00:00 Practice Tdap Tdap 2019-03-07 Completed [facility] 00:[facility]:00 [facility] Td Td 2018-02-03 Completed [facility] 10:21:00 [facility] Td Td 2018-02-03 Completed [facility] 10:21:00 [facility] Vital Signs Vital Name Observation Time Observation Value Comments Source blood pressure 2022-03-24 10:15:00 132 mm[Hg] [facility] - systolic [facility] blood pressure 2022-03-24 10:15:00 68 mm[Hg] [facility] - diastolic [facility] height 2022-03-24 10:15:00 67.75 [in_i] [facility] weight 2022-03-24 10:15:00 174 [lb_av] [facility] temperature 2022-03-24 10:15:00 97.3 [degF] [facility] bmi 2022-03-24 10:15:00 26.65 kg/m2 [facility] oximetry 2022-03-24 10:15:00 98 % [facility] respiratory rate 2022-03-24 10:15:00 18 /min Comm on [facility] height 2021-12-17 09:00:00 67.75 [in_i] [facility] weight 2021-12-17 09:00:00 167 [lb_av] [facility] temperature 2021-12-17 09:00:00 97.6 [degF] [facility] bmi 2021-12-17 09:00:00 25.58 kg/m2 [facility] oximetry 2021-12-17 09:00:00 96 % [facility] respiratory rate 2021-12-17 09:00:00 16 /min [facility] blood pressure 2021-12-17 09:00:00 185 mm[Hg] [facility] - systolic [facility] blood pressure 2021-12-17 09:00:00 75 mm[Hg] [facility] - diastolic [facility] Systolic blood 2021-09-02 02:00:00 165 mm[Hg] [facility] Diastolic blood 2021-09-02 02:00:00 74 mm[Hg] Unive rsity [facility] Heart rate 2021-09-02 02:00:00 61 /min [facility] Respiratory rate 2021-09-02 02:00:00 20 /min [facility] Oxygen saturation in 2021-09-02 02:00:00 98 /min [facility] Arterial blood by [facility] Pulse oximetry Branch Body temperature 2021-09-01 22:19:00 36.28 Natalie [facility] Body weight 2021-09-01 22:19:00 81.647 kg [facility] BMI 2021-09-01 22:19:00 25.83 kg/m2 [facility] HEIGHT 2021-04-06 12:08:00 180.3 cm WEIGHT 2021-04-06 12:08:00 79.379 kg HEIGHT 2021-04-06 12:08:00 180.3 cm WEIGHT 2021-04-06 12:08:00 79.379 kg BP Diastolic 2020-03-10 00:00:00 68 mm[Hg] [facility] Height 2020-03-10 00:00:00 68 [in_i] [facility] BMI (Body Mass 2020-03-10 00:00:00 27.4 kg/m2 [facility] BP Systolic 2020-03-10 00:00:00 126 mm[Hg] [facility] Body Weight 2020-03-10 00:00:00 180 [lb_av] [facility] WEIGHT 2020-01-03 04:20:00 81.194 kg [...] mm[Hg] Univer sity of pressure [facility] Diastolic blood 2019-11-07 19:40:00 74 mm[Hg] Unive rsity of pressure [facility] Heart rate 2019-11-07 19:40:00 76 /min Universi ty [facility] Body temperature 2019-11-07 19:40:00 36.44 Natalie Univ ersity of [facility] Respiratory rate 2019-11-07 19:40:00 18 /min Univ ersity of [facility] Body weight 2019-11-07 19:40:00 81.647 kg Universi ty [facility] BMI 2019-11-07 19:40:00 25.83 kg/m2 Universi ty [facility] Systolic blood 2019-11-07 19:40:00 150 mm[Hg] Univer sity of pressure [facility] Diastolic blood 2019-11-07 19:40:00 74 mm[Hg] Unive rsity of pressure [facility] Heart rate 2019-11-07 19:40:00 76 /min Universi ty [facility] Body temperature 2019-11-07 19:40:00 36.44 Natalie [facility] ers[facility] of [facility] Respiratory rate 2019-11-07 19:40:00 18 /min [facility] Body weight 2019-11-07 19:40:00 81.647 kg [facility] BMI 2019-11-07 19:40:00 25.83 kg/m2 [facility] Systolic blood 2019-09-24 20:24:00 155 mm[Hg] [facility] Diastolic blood 2019-09-24 20:24:00 76 mm[Hg] Unive rsity of pressure [facility] Heart rate 2019-09-24 20:24:00 63 /min [facility] Body temperature 2019-09-24 20:24:00 36.11 Natalie [facility] Respiratory rate 2019-09-24 20:24:00 18 /min [facility] Body weight 2019-09-24 20:24:00 82.373 kg [facility] BMI 2019-09-24 20:24:00 26.06 kg/m2 [facility] Systolic blood 2019-09-24 20:24:00 155 mm[Hg] [facility]iver [facility]ity [facility] Diastolic blood 2019-09-24 20:24:00 76 mm[Hg] Unive rsity of pressure [facility] Heart rate 2019-09-24 20:24:00 63 /min [facility] Body temperature 2019-09-24 20:24:00 36.11 Natalie [facility] Respiratory rate 2019-09-24 20:24:00 18 /min [facility] Body weight 2019-09-24 20:24:00 82.373 kg [facility] BMI 2019-09-24 20:24:00 26.06 kg/m2 [facility] Systolic blood 2019-09-21 20:41:00 149 mm[Hg] [facility] Diastolic blood 2019-09-21 20:41:00 79 mm[Hg] Unive [facility]ity [facility] Heart rate 2019-09-21 20:41:00 64 /min [facility] Body temperature 2019-09-21 20:41:00 35.78 Natalie [facility] Respiratory rate 2019-09-21 20:41:00 18 /min [facility] Body weight 2019-09-21 20:41:00 81.829 kg [facility] BMI 2019-09-21 20:41:00 25.88 kg/m2 [facility] Systolic blood 2019-09-02 11:05:00 188 mm[Hg] [facility]iver [facility] Diastolic blood 2019-09-02 11:05:00 85 mm[Hg] Unive rsity [facility] Heart rate 2019-09-02 11:05:00 84 /min [facility] Body temperature 2019-09-02 11:05:00 36.89 Natalie [facility] [address] [facility] Respiratory rate 2019-09-02 11:05:00 16 /min Univ ersity of [facility] Body height 2019-09-02 11:05:00 177.8 cm [facility] Body weight 2019-09-02 11:05:00 79.379 kg [facility] BMI 2019-09-02 11:05:00 25.11 kg/m2 [facility] Oxygen saturation in 2019-09-02 11:05:00 99 /min University of Arterial blood by [facility] ezekiel Pulse oximetry Branch Body temperature 2019-08-10 20:51:00 36.61 Natalie [facility] [address] of [facility] Respiratory rate 2019-08-10 20:51:00 22 /min [facility] [place] Body weight 2019-08-10 20:51:00 80.797 kg [facility] BMI 2019-08-10 20:51:00 27.08 kg/m2 [facility] Oxygen saturation in 2019-08-10 20:51:00 96 /min [facility] P[facility] Systolic blood 2019-07-09 15:45:00 131 mm[Hg] Univer [facility]ity of [facility] Diastolic blood 2019-07-09 15:45:00 69 mm[Hg] Unive rsity of pressure [facility] Heart rate 2019-07-09 15:45:00 49 /min [facility] Body temperature 2019-07-09 15:45:00 37 Natalie [facility] [address] Respiratory rate 2019-07-09 15:45:00 20 /min [facility] Body height 2019-07-09 15:45:00 172.7 cm [facility] Body weight 2019-07-09 15:45:00 82.101 kg [facility] BMI 2019-07-09 15:45:00 27.52 kg/m2 [facility] Oxygen saturation in 2019-07-09 15:45:00 98 /min University of Arterial blood by [facility] Pulse oximetry Branch Systolic blood 2019-05-24 18:10:00 132 mm[Hg] Univer [facility]ity [facility] Diastolic blood 2019-05-24 18:10:00 61 mm[Hg] Unive rsity of [facility] Heart rate 2019-05-24 18:10:00 50 /min [facility] Body temperature 2019-05-24 18:10:00 36.56 Natalie [facility] Respiratory rate 2019-05-24 18:10:00 18 /min [facility] Body weight 2019-05-24 18:10:00 82.101 kg [facility] BMI 2019-05-24 18:10:00 27.52 kg/m2 [facility] Body temperature 2019-05-04 17:26:00 36.83 Natalie [facility] Respiratory rate 2019-05-04 17:26:00 20 /min [facility] Body height 2019-05-04 17:26:00 172.7 cm [facility] Body weight 2019-05-04 17:26:00 79.379 kg [facility] BMI 2019-05-04 17:26:00 26.61 kg/m2 [facility] Oxygen saturation in 2019-05-04 17:26:00 98 /min University of Arterial blood by [facility] Pulse oximetry Branch Systolic blood 2019-05-04 17:26:00 139 mm[Hg] Univer [facility]ity of [facility] Diastolic blood 2019-05-04 17:26:00 67 mm[Hg] Unive rsity of pressure [facility] Heart rate 2019-05-04 17:26:00 80 /min [facility] Systolic blood 2019-04-20 17:14:00 135 mm[Hg] Univer sity of pressure [facility] Diastolic blood 2019-04-20 17:14:00 80 mm[Hg] Unive rsity of pressure [facility] Heart rate 2019-04-20 17:14:00 80 /min [facility] [place] Body temperature 2019-04-20 17:14:00 36.67 Natalie Univ [facility] of [facility] Respiratory rate 2019-04-20 17:11:00 20 /min Univ ersity of [facility] Body height 2019-04-20 17:11:00 172.7 cm [facility] [place] Body weight 2019-04-20 17:11:00 77.565 kg Universi ty of [facility] BMI 2019-04-20 17:11:00 26.00 kg/m2 Universi ty of [facility] Oxygen saturation in 2019-04-20 17:11:00 98 /min University Arterial blood by [facility] Pulse oximetry Branch Systolic blood 2018-10-06 13:34:00 127 mm[Hg] Univer [facility]ity of [facility] Diastolic blood 2018-10-06 13:34:00 72 mm[Hg] Unive rsity of pressure [facility] Body height 2018-10-06 13:34:00 175.3 cm [facility] [place] Body weight 2018-10-06 13:34:00 81.647 kg [facility] [place] BMI 2018-10-06 13:34:00 26.58 kg/m2 Universi ty of [facility] Heart rate 2021-04-08 11:20:00 64 /min [facility] Respiratory rate 2021-04-08 11:20:00 18 /min [facility] Oxygen saturation in 2021-04-08 11:20:00 97 /min [facility] Arterial blood by Medical nt Pulse oximetry Systolic blood 2021-04-08 07:00:00 142 mm[Hg] [facility] Diastolic blood 2021-04-08 07:00:00 67 mm[Hg] [facility] Body temperature 2021-04-08 07:00:00 36.56 Natalie [facility] Body height 2021-04-06 12:08:00 180.3 cm [facility] Body weight 2021-04-06 12:08:00 79.379 kg [facility] BMI 2021-04-06 12:08:00 24.41 kg/m2 [facility] Procedures Procedure Date / Time Performing Clinician Source Performed EKG-12 LEAD 2021-09-02 02:42:27 Carley Green [facility] MAGNESIUM 2021-09-01 23:35:00 Carley Green [facility] TROPONIN I 2021-09-01 23:35:00 Carley Green [facility] COMP. METABOLIC PANEL 2021-09-01 23:35:00 Carley Green [facility] ([id number]) [facility] CBC WITH DIFF 2021-09-01 23:35:00 Carley Green [facility] PROTHROMBIN TIME / INR 2021-09-01 23:35:00 [facility] ACTIVATED PARTIAL 2021-09-01 23:35:00 [facility] 2021-09-01 23:35:00 Carley Green [facility] N-TERMINAL PRO-BNP 2021-09-01 23:35:00 Carley Green [facility] XR CHEST 1 VW 2021-09-01 23:27:00 Carley Green [facility] NOTICE OF PRIVACY 2021-09-01 22:21:51 [facility] CONSENT/REFUSAL FOR 2021-09-01 22:14:42 Doctor Unassigned, [facility] APTT 2021-04-08 09:10:00 Oscar Mcintyre [facility] CBC W/PLT COUNT & AUTO 2021-04-08 05:18:00 Yusra Sethi [facility] S [facility] DIFFERENTIAL Center COMPREHENSIVE METABOLIC 2021-04-08 05:18:00 Yusra Sethi [facility] PANEL Center PHOSPHORUS 2021-04-08 05:18:00 Kwadwo [facility] MAGNESIUM 2021-04-08 05:18:00 [facility] PROT[facility]/INR 2021-04-08 05:18:00 [facility] 2021-04-08 05:18:[facility] W/[facility]T [facility] & AUTO 2021-04-08 05:18:00 [facility] APTT 2021-04-08 01:09:00 [facility] POCT-GLUCOSE METER 2021-04-07 23:21:[facility] 2021-04-07 18:08:00 [facility] POCT-GLUCOSE METER 2021-04-07 11:30:[facility] 2021-04-07 10:09:00 [facility] POCT-[facility]UCOSE METER 2021-04-07 06:01:00 Miguelina [facility] CBC W/PLT COUNT & AUTO 2021-04-07 05:28:00 Kwadwo [facility] COMPREHENSIVE METABOLIC 2021-04-07 05:28:00 Kwadwo, [facility] PANEL Center PHOSPHORUS 2021-04-07 05:28:00 [facility] MAG[facility]UM 2021-04-07 05:28:00 [facility] PROTHROMBIN TIME/INR 2021-04-07 05:28:00 [facility] CBC W/PLT COUNT & AUTO 2021-04-07 05:28:00 [facility] POCT-GLUCOSE METER 2021-04-06 23:57:[facility] 2021-04-06 22:30:00 Miguelina [facility] 2D ECHO W/ DOPPLER 2021-04-06 12:01:00 Lashon Valladares [facility] (CW/PW/COLOR) [facility] APTT 2021-04-06 09:22:00 Miguelina [facility] CBC W/PLT COUNT & AUTO 2021-04-06 04:38:00 [facility]PRE[facility]ENSIVE METABOLIC 2021-04-06 04:38:00 [facility]OS[facility]US 2021-04-06 04:38:00 [facility] MAGNESIUM 2021-04-06 04:38:00 [facility] PROTHROMBIN TIME/INR 2021-04-06 04:38:00 [facility] W/[facility]T [facility] & AUTO 2021-04-06 04:38:00 [facility]TT 2021-04-06 00:56:[address] [facility] [address] CHEST WITH IV 2021-04-06 00:26:00 Lashon Valladares [facility] POCT-GLUCOSE METER 2021-04-05 22:28:00 Miguelina [facility] APTT 2021-04-05 17:54:00 Miguelina [facility] APTT 2021-04-05 12:01:00 Miguelina [facility] POCT-GLUCOSE METER 2021-04-05 06:43:00 Miguelina [facility] CBC W/PLT COUNT & AUTO 2021-04-05 04:17:00 [facility] COMPREHENSIVE METABOLIC 2021-04-05 04:17:00 [facility]OS[facility]US 2021-04-05 04:17:00 [facility] MAGNES[facility]UM 2021-04-05 04:17:00 Kwadwo [facility] PROTHROMBIN TIME/INR 2021-04-05 04:17:00 [facility] APTT 2021-04-05 04:17:00 Miguelina [facility] CBC W/PLT COUNT & AUTO 2021-04-05 04:17:00 Kwadwo [facility] POCT-GLUCOSE METER 2021-04-05 00:38:00 Miguelina [facility] ECG 12-LEAD 2021-04-04 23:12:36 Unknown, [address] ECG 12-LEAD 2021-04-04 23:12:36 Unknown, [address] ECG 12-LEAD 2021-04-04 23:12:17 Unknown, [address] ECG 12-LEAD 2021-04-04 23:12:17 Unknown, [address] ECG 12-LEAD 2021-04-04 23:12:00 Unknown, [address] ECG 12-LEAD 2021-04-04 23:12:00 Unknown, [address] CBC W/PLT COUNT & AUTO 2021-04-04 06:03:00 [facility] COMPREHENSIVE METABOLIC 2021-04-04 06:03:00 Kwadwo [facility] Center PHOSPHORUS 2021-04-04 06:03:00 Kwadwo [facility] MAGNESIUM 2021-04-04 06:03:00 [facility] APTT 2021-04-04 06:03:00 Miguelina [facility] PROTHROMBIN TIME/INR 2021-04-04 06:03:00 [facility] CBC W/PLT COUNT & AUTO 2021-04-04 06:03:00 Kwadwo [facility] HEMOGLOBIN AND 2021-04-03 22:59:00 Miguelina, [facility] HEMATOCRIT Center APTT 2021-04-03 22:59:00 Miguelina [facility] ECG 12-LEAD 2021-04-03 22:17:25 Joyner Favian [facility] ECG 12-LEAD 2021-04-03 22:17:25 Unknown, [facility] PLATELET COUNT 2021-04-03 11:50:00 Miguelina [facility] APTT 2021-04-03 11:50:00 Miguelina [facility] CBC W/PLT COUNT & AUTO 2021-04-03 04:26:00 Kwadwo [facility] Center COMPREHENSIVE METABOLIC 2021-04-03 04:26:00 Kwadwo [facility] PANEL Center PHOSPHORUS 2021-04-03 04:26:00 Kwadwo [facility] PROTHROMBIN TIME/INR 2021-04-03 04:26:00 Kwadwo [facility] MAGNESIUM 2021-04-03 04:26:00 Kwadwo [facility] CBC W/PLT COUNT & AUTO 2021-04-03 04:26:00 Kwadwo [facility] URINALYSIS WITH 2021-04-02 16:55:00 [facility] IF INDICATED Center URINALYSIS MICROSCOPIC 2021-04-02 16:55:00 Kwadwo [facility] BASIC METABOLIC PANEL 2021-04-02 08:46:00 [facility] HEPATIC FUNCTION PANEL 2021-04-02 08:46:00 [facility]OT[facility]/INR 2021-04-02 08:46:00 [facility] CBC W/PLT COUNT & AUTO 2021-04-02 08:46:00 Ruddy [facility] DIFFERENTIAL [facility] CBC W/PLT COUNT & AUTO 2021-04-02 08:46:[address] [facility] DIFFERENTIAL [facility] EKG-SCANNED 2021-04-02 00:00:00 Provider[facility]uridia [facility] AUTHORIZATION FOR 2020-02-18 06:01:00 Doctor Unassigned, No [facility] RELEASE OF [facility] COMP. METABOLIC PANEL 2019-09-02 11:21:00 [place] [facility] ([id number]) [facility] [place] CBC WITH DIFFERENTIAL 2019-09-02 11:21:00 M[facility], [facility] URINALYSIS 2019-09-02 11:21:00 [place] [facility] o f [facility] NOTICE OF PRIVACY 2019-09-02 10:54:46 Doctor Unassigned, No [facility] PRACTICES [facility] [place] CONSENT/REFUSAL FOR 2019-09-02 10:54:27 Doctor Unassigned, [facility] PHYSICIAN ORDERS 2019-05-24 05:01:00 Doctor Unassigned, No [facility] POCT URINALYSIS AUTO 2019-05-04 17:32:00 Robbie Car [facility] DISCLOSURE AND CONSENT, 2019-05-04 06:01:00 Doctor Unassigned, N o [facility] MEDICAL AND SURGICAL [facility] Medical [facility] nc PROCEDURES POCT URINALYSIS AUTO 2019-04-20 17:08:00 Robbie Car [facility] ASSIGNMENT OF BENEFITS 2019-04-20 16:53:27 Doctor Unassigned, No [facility] REFERRAL- 2018-10-04 05:01:00 Doctor Unassigned, No [facility] REQUEST/RESPONSE [facility] REFUSAL OF NON-MEDICAL 2018-04-20 06:01:00 Doctor Unassigned, No [facility] SERVICES [facility] Plan of Care Planned Activity Planned Date Details Comments Source Future Scheduled Test 2029-03-07 DTAP/TDAP/TD VACCINES [facility] 00:00:00 (2 - Td or Tdap) [facility] [address] [code = DTAP/TDAP/TD VACCINES (2 - Td or Tdap)] Future Scheduled Test 2029-03-07 DTAP/TDAP/TD VACCINES [facility] 00:00:00 (2 - Td or Tdap) [facility] [address] [code = DTAP/TDAP/TD VACCINES (2 - Td or Tdap)] Future Scheduled Test 2022-11-[address]ACC[address] [facility] 00:00:00 (Season Ended) [code Medical Center = INFLUENZA VACCINE (Season Ended)] Future Scheduled Test 2022-06-09 COVID-19 VACCINE (#1) [facility] 02:57:05 [code = COVID-19 VACCINE (#1)] Future Scheduled Test 2022-06-09 SHINGLES VACCINES (1 [facility] 02:57:05 of 2) [code = SHINGLES VACCINES (1 of 2)] Future Scheduled Test 2022-06-09 65+ PNEUMOCOCCAL [facility] 02:57:05 VACCINE (1 - PCV) [code = 65+ PNEUMOCOCCAL VACCINE (1 - PCV)] Future Scheduled Test 2022-06-09 INFLUENZA VACCINE [facility] 02:57:05 [code = INFLUENZA VACCINE] Future Scheduled Test 2022-03-[address] [facility] 00:00:00 (12+) [code = [facility] DEPRESSION SCREENING (12+)] Future Scheduled Test 2022-03-07 FALLS RISK SCREENING [facility] 00:00:00 [code = FALLS RISK Medical C enter SCREENING] Future Scheduled Test 2022-02-17 COVID-19 VACCINE (#1) [facility] 02:52:34 [code = COVID-19 VACCINE (#1)] Future Scheduled Test 2022-02-17 SHINGLES VACCINES (1 [facility] 02:52:34 of 2) [code = SHINGLES VACCINES (1 of 2)] Future Scheduled Test 2022-02-17 65+ PNEUMOCOCCAL [facility] 02:52:34 VACCINE (1 - PCV) [code = 65+ PNEUMOCOCCAL VACCINE (1 - PCV)] Future Scheduled Test 2022-02-17 INFLUENZA VACCINE [facility] 02:52:34 [code = INFLUENZA VACCINE] Future Scheduled [...] YRS (2 - PCV)] Future Scheduled Test 2020-03-31 PNEUMOCOCCAL 65+ YRS [facility] 00:00:00 (2 - PCV) [code = Medical Ce nter PNEUMOCOCCAL 65+ YRS (2 - PCV)] Future Scheduled Test 2016-11-[address] [facility] 00:00:00 WELLNESS (YEAR 2 or Medical Center FIRST YEAR if no IPPE) [code = MEDICARE ANNUAL WELLNESS (YEAR 2 or FIRST YEAR if no IPPE)] Future Scheduled Test 1999-02-[address] [facility] 00:00:00 WELLNESS (YEAR 2 or Medical Center FIRST YEAR if no IPPE) [code = MEDICARE ANNUAL WELLNESS (YEAR 2 or FIRST YEAR if no IPPE)] Future Scheduled Test 1983 SHINGLES VACCINES ([address] [facility] 00:00:00 of 2) [code = Medical Center SHINGLES VACCINES (1 of 2)] Future Scheduled Test 1983 SHINGLES VACCINES ([address] [facility] 00:00:00 of 2) [code = Medical Center SHINGLES VACCINES (1 of 2)] Future Scheduled Test [address] [facility] 00:00:00 Counseling and Medical Cente r Screening (12+) [code = Tobacco Cessation Counseling and Screening (12+)] Future Scheduled Test 1945 Tobacco [facility] r Screening (12+) [code = Tobacco Cessation Counseling and Screening (12+)] Future Scheduled Test 1933 COVID-19 VACCINE (#1) [facility]00 [code = COVID-[address] VACCINE (#1)] Future Scheduled Test 1933 COVID-19 VACCINE (#1) [facility] 00:[facility]:00 [code = COVID-[address] VACCINE (#1)] [facility]ructions [facility] Encounters Start End Encounter Admission Attending Care Care Encounter Source Date/Time Date/Time Type Type Clinicians Facility Department ID 2022-06-29 Outpatient Perry, STLMLC STLC [id number] Common 11:38:01 Shawn [id number] [facility] 2022-05-12 Outpatient [facility] [id number] [place] 21:23:[id number] [place] [address] 2021-12-17 Outpatient Perry, STLMLC STLMLC [id number] Common 08:32:02 Shawn [id number] [facility] 2021-01-02 Emergency [facility] [id number] Univers 14:31:41 ity [facility] 2021-01-02 Emergency [facility] [id number] Univers [facility]10 Inpatient ER RUBEN [facility] Surgery [id number] [facility] 12:16:46 ZOYA 2020-12-10 Inpatient ER [facility] [id number] [facility] 12:16:10 [facility] 2022-03-24 2022-03-24 OFFICE STLMLC STLMLC [id number] Co mmon 00:00:00 00:00:00 VISIT EST Spir it PT LEVEL 3 - [facility] 2021-12-17 2021-12-17 OFFICE STLMLC STLMLC [id number] Co mmon 00:00:00 00:00:00 VISIT Spirit ESTAB PT - [facility] LEVEL 2 [facility] 2021-09-18 2021-09-18 Outpatient DMG [facility] [id number] [facility] 03:02:00 03:02:00 [id number] [facility] 2021-09-18 2021-09-18 Outpatient DMG DM [id number] [facility] 00:00:00 00:00:00 [id number] [facility] 2021-09-01 2021-09-02 Emergency X Carley GREEN [facility] ERT [id number] Univers 17:21:00 01:51:00 ity [facility] 2021-09-01 2021-09-02 Emergency Carley Green [facility] 1.2.840.114 [id number] Univers 17:21:00 01:51:00 Analy JONES 350.1.13.10 i ty of [facility] 4.2.7.2.[place] [id number] [facility] [address] 2021-09-01 2021-09-01 Orders Doctor NIRAV 1.2.840.114 [id number] [facility] 00:00:00 00:00:00 Only Unassigned, KENNETH 350.1.13.10 ity of [place] 4.2.7.2.686 Bran as [phone] [facility] [address] 2021-06-03 2021-06-03 Outpatient DMG DM [id number]- [facility] 04:03:00 04:03:00 Medica l Group 2021-05-22 2021-05-22 Outpatient DMG DMG [id number] [facility] 12:01:00 12:01:00 Medica l Group 2021-05-13 2021-05-13 Outpatient DMG DMG [id number]- [facility] 12:00:00 12:00:00 Medica l Group 2021-04-02 2021-04-08 Inpatient ER [facility] Urology [id number] [facility] 05:31:00 12:45:00 [facility] 2021-04-02 2021-04-08 Hospital ER Queenie Fox Elodia [facility] [id number] 05:31:00 12:45:00 Encounter [facility] 2021-04-06 2021-04-06 Outpatient [facility] [id number] [facility] 00:00:00 23:59:00 [facility] 2021-04-03 2021-04-03 Orders [facility] [id number] 00:00:00 00:00:00 Only [facility] 2021-01-07 2021-01-07 Telephone SUJEY Grant 1.2.840.114 [id number] Univers 00:00:00 00:00:00 [facility] 350.1.13.10 it y of [facility] 4.2.7.2.686 Bran as ARISTEO?BLEA [phone] Me delia THOMAS 198 [facility] 2021-01-05 2021-01-05 [facility] 1.2.840.114 [id number] Univers 00:00:00 00:00:00 Eduardo L HEALTH 350.1.13.10 it y of [place] 4.2.7.2.686 Bran as ARISTEO?BLEA [phone] Sd delia THOMAS 198 [facility] 2020-10-14 2020-10-14 Telephone [facility] 1.2.840.114 [id number] Univers 00:00:00 00:00:00 Eduardo L Health 350.1.13.10 it y of Surgical 4.2.7.2.686 Bran as Specialti [phone] Sd pemaal es 198 [facility] 2020-10-09 2020-10-09 [facility] 1.2.840.114 [id number] Univers 00:00:00 00:00:00 Eduardo L Health 350.1.13.10 it y of Surgical 4.2.7.2.686 Bran as Specialti [phone] Sd dical es 198 [facility] 2020-09-11 2020-09-11 [facility] 1.2.840.114 [id number] Univers 00:00:00 00:00:00 Marquis S Health 350.1.13.10 it y of Surgical 4.2.7.2.686 Bran as Specialti [phone] Sd dical es 198 [facility] 2020-08-14 2020-08-14 [facility] 1.2.840.114 [id number] Univers 00:00:00 00:00:00 Marquis S Health 350.1.13.10 it y of Surgical 4.2.7.2.686 Bran as Specialti [id number] Sd dical es 198 [facility] 2020-07-07 2020-07-07 [facility] 1.2.840.114 [id number] 00:00:00 00:00:00 Eduardo L Health 350.1.13.10 Surgical 4.2.7.2.686 Specialti [phone] es 198 [place] 2020-07-07 2020-07-07 [facility] 1.2.840.114 [id number] Univers 00:00:00 00:00:00 [facility] 350.1.13.10 it y of Surgical 4.2.7.2.686 Bran as Specialti [phone] Sd dical es [address] [place] 2020-06-12 2020-06-12 Outpatient Ajibade_O_A VFP VFP [id number] [facility] 10:56:00 10:56:00 H 40878 Family Practic e 2020-05-26 2020-05-26 [facility]phone [facility] 1.2.840.114 [id number] 00:00:00 00:00:00 [facility] 350.1.13.10 Surgical 4.2.7.2.686 Specialti [phone] es 198 [place] 2020-05-26 2020-05-26 [facility]phone [facility] 1.2.840.114 [id number] [facility] 00:00:00 00:00:00 [facility] 350.1.13.10 it y of Surgical 4.2.7.2.686 Bran as Specialti [phone] Sd dical es [address] [place] 2020-03-20 2020-03-20 Outpatient Ajibade_O_A VFP VFP [id number] [facility] 05:22:00 05:22:00 H 75558 Family Practic e 2020-03-20 2020-03-20 Outpatient Ajibade_O_A VFP VFP [id number] [facility] 05:22:00 05:22:00 H 54669 Family Practic e 2020-03-20 2020-03-20 Outpatient Ajibade_O_A VFP VFP 796 [id number] [facility] 05:22:00 05:22:00 H 88831 Family Practic e 2020-03-20 2020-03-20 Telephone Horn [facility] 1.2.602.901 [id number] 00:00:00 00:00:00 [facility] 350.1.13.10 Surgical 4.2.7.2.686 Specialti [id number] es 198 [place] 2020-03-20 2020-03-20 [facility] 1.2.451.188 [id number] [facility] 00:00:00 00:00:00 Marquis S Health 350.1.13.10 it y of Surgical 4.2.7.2.686 Bran as Specialti [phone] Me dical es 198 [facility] 2020-03-10 2020-03-10 Outpatient Ajibade_O_A VFP VF 796 [id number] [facility] 11:19:00 11:19:00 H 80804 Family Practic e 2020-03-10 2020-03-10 Omiana [facility] [place] - [id number] V illage 00:00:00 00:00:00 Leo Sanchez 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 2020-02-18 2020-02-18 Orders Doctor NIRAV 1.2.840.114 [id number] 00:00:00 00:00:00 Only Unassigned, KENNETH 350.1.13.10 [place] [facility] 4.2.7.2.686 [id number] [facility] 2020-02-18 2020-02-18 Orders Doctor NIRAV 1.2.840.114 [id number] [facility] 00:00:00 00:00:00 Only Unassigned, KENNETH 350.1.13.10 ity of [place] [facility] 4.2.7.2.686 Bran as [phone] [address] 2020-01-28 2020-01-28 Telephone [facility] 1.2.517.003 [id number] 00:00:00 00:00:00 Marquis S Health 350.1.13.10 Surgical 4.2.7.2.686 Specialti [phone] es 198 [place] 2020-01-28 2020-01-28 Telephone [facility] 1.2.206.514 [id number] 4050 [facility] 00:00:00 00:00:00 Marquis [facility] 350.1.13.10 it y of Surgical 4.2.7.2.686 Bran as Specialti [id number] Sd dical 198 [facility] 2019-12-28 2019-12-28 Emergency ER [facility] Emergency [id number] [facility] 20:07:00 20:07:00 2019-12-21 2019-12-21 [facility] 1.2.840.114 [id number] 00:00:00 00:00:00 Robbie [place] 350.1.13.10 [place] 4.2.7.2.686 Professio [phone] [address] 2019-12-21 2019-12-21 [facility] 1.2.840.114 [id number] Univers 00:00:00 00:00:00 Robbie [place] 350.1.13.10 i ty of [place] [phone] Sd dical [address] 2019-12-20 2019-12-20 [facility] [id number] Univers 09:30:00 09:30:00 RBOBIE ity [facility] 2019-12-10 2019-12-10 [facility] [id number] Univers 15:15:00 15:15:00 [facility] 2019-12-07 2019-12-07 [facility] [id number] Univers 13:00:00 13:00:00 [facility] [place] 2019-12-07 2019-12-07 Nurse Nurse, [facility] 1.2.840.114 [id number] 10:38:50 11:10:03 Visit Surgery [facility] 350.1.13.10 [place] 4.2.7.2.686 Professio [id number] [address] 2019-12-07 2019-12-07 Nurse Nurse, [facility] Surgery [facility] 1.2. 840.114 [id number] [facility] 10:38:50 11:10:03 Visit Joyce [facility] 350.1.13.10 ity of [place] 4[place]2.[place].2.[place] [phone] Sd [address] 2019-11-20 2019-11-20 Nurse Nurse, [facility] 1.2.840.114 [id number] 13:06:00 13:52:14 Visit Surgery Gu [place] 350.1.13.10 [place] 4.2.7.2.686 Professio [phone] [address] 2019-11-20 2019-11-20 Nurse Nurse, [facility] Surgery [facility] 1.2. 840.114 [id number] Univers 13:06:00 13:52:14 Visit Robbie Car 350.1.13.10 ity of [place].2.[place] [phone] [address] 2019-11-20 2019-11-20 Outpatient R [facility] [id number] Univers 13:00:00 13:00:00 ROBBIE ity [facility] 2019-11-07 2019-11-07 Nurse Nurse, [facility] 1.2.840.114 [id number] 14:34:31 14:49:31 Visit Surgery Gu [place] 350.1.13.10 [place] 4.2.7.2.686 Professio [phone] [address] 2019-11-07 2019-11-07 Nurse Nurse, [facility] Surgery [facility] 1.2. 840.114 [id number] Univers 14:34:31 14:49:31 Visit Robbie Car 350.1.13.10 ity of [place] 4.2.7.2.[place] Profess[place] [phone] [address] 2019-11-07 2019-11-07 Outpatient R [facility] [id number] Univers 14:15:00 14:15:00 ity [facility] 2019-11-07 2019-11-07 Outpatient R [facility] [id number] Univers 11:00:00 11:00:00 ity [facility] 2019-11-01 2019-11-01 Outpatient Ajibade_O_A VFP VFP 796 [id number] [facility] 04:47:00 04:47:00 H 21551 Family Practic e 2019-09-24 2019-09-24 [facility] 1.2.840.114 [id number] 15:17:44 17:03:35 Visit Robbie [place] 350.1.13.10 [place] 4.2.7.2.686 Professio [phone] [address] 2019-09-24 2019-09-24 Office [facility] 1.2.840.114 [id number] Univers 15:17:44 17:03:35 Visit [facility] 350.1.13.10 i ty of [place]2.[place].2.[place] [phone] [address] 2019-09-24 2019-09-24 [facility] [id number] Univers 16:00:00 16:00:00 ROBBIE ity [facility] 2019-09-21 2019-09-21 [facility] 1.2.840.114 [id number] Univers 15:33:57 16:14:10 Visit [facility] 350.1.13.10 i ty of [place] 4.2.7.2.[place] [phone] [address] 2019-09-21 2019-09-21 [facility] [id number] Univers 16:00:00 16:00:00 ROBBIE ity [facility] 2019-09-19 2019-09-19 Nurse Nurse, [facility] Surgery [facility] 1.2. 840.114 [id number] Univers 10:50:18 11:21:35 Visit Robbie Car 350.1.13.10 ity of [place] 4.2.7.2.686 [place] [phone] [address] 2019-09-19 2019-09-19 Outpatient R [facility] [id number] Univers 10:45:00 10:45:00 ity [facility] 2019-09-17 2019-09-17 [facility] 1.2.062.047 [id number] 00:00:00 00:00:00 Eduardo [facility] 350.1.13.10 Surgical 4.2.7.2.686 Specialti [phone] es [address] [place] 2019-09-17 2019-09-17 Refill Juanita [facility] 1.2.062.704 [id number] Univers 00:00:00 00:00:00 Eduardo Sandhu [facility] 350.1.13.10 it y of Surgical 4.2.7.2.686 Bran as Specialti [phone] Sd dical es 198 [facility] 2019-09-02 2019-09-02 Emergency [facility] 1.2.189.710 [id number] Univers 05:59:14 07:38:00 Chico Jones 350.1.13.10 i ty of [place] 4.2.7.2.686 [place] [phone] [facility] [address] [place] 2019-09-02 2019-09-02 Orders Doctor NIRAV 1.2.840.114 [id number] Univers 00:00:00 00:00:00 Only Unassigned, KENNETH 350.1.13.10 [facility] 4.2.7.2.686 Bran as [phone] [facility] [address] [place] 2019-08-30 2019-08-30 Telephone Juanita [facility] 1.2.840.114 [id number] Univers 00:00:00 00:00:00 Eduardo [facility] 350.1.13.10 it y of Surgical 4.2.7.2.686 Bran as Specialti [phone] Sd dical es 198 [facility] 2019-08-24 2019-08-24 Outpatient R JOYCE [facility] [id number] Univers 14:00:00 14:00:00 ROBBIE ity [facility] 2019-08-10 2019-08-10 Office [facility] 1.2.840.114 [id number] Univers 15:15:27 16:21:06 Visit Robbie Jones 350.1.13.10 i ty of [place] 4.2.7.2.686 [place] [facility] [phone] Sd dical nal 204 [facility] 2019-08-10 2019-08-10 Outpatient R JOYCE [facility] [id number] Univers 16:00:00 16:00:00 ROBBIE ity [facility] 2019-07-23 2019-07-23 [facility] [id number] Univers 10:00:00 10:00:00 ROBBIE ity of [facility] 2019-07-09 2019-07-09 Office [facility] 1.2.840.114 [id number] Univers 10:27:37 11:55:27 Visit Robbie [place] 350.1.13.10 i ty of [place] 4.2.7.2.[place] [phone] Sd dical nal [address] [place] [address] 2019-07-09 2019-07-09 [facility] [id number] Univers 11:00:00 11:00:00 ROBBIE ity [facility] 2019-07-04 2019-07-04 Outpatient R [facility] [id number] Univers 09:00:00 09:00:00 ity of [facility] 2019-07-03 2019-07-03 Outpatient R [facility] [id number] Univers 10:00:00 10:00:00 ity of [facility] 2019-07-03 2019-07-03 Nurse Nurse, [facility] Surgery [facility] 1.2. 840.114 [id number] Univers 09:29:30 09:53:59 Visit Robbie Car 350.1.13.10 ity of [place] 4.2.7.2.[place] [phone] Sd dical nal 204 [facility] 2019-06-18 2019-06-18 Telephone [facility] 1.2.840.114 [id number] Univers 00:00:00 00:00:00 [facility] 350.1.13.10 it y of Surgical 4.2.7.2.686 Bran as Specialti [phone] Sd dical es 198 [facility] 2019-06-06 2019-06-06 Nurse Nurse, [facility] Surgery [facility] 1.2. 840.114 [id number] Univers 09:58:45 10:28:51 Visit Robbie Car [place] 350.1.13.10 ity of [place] 4.2.7.2.[place] Profess[place] [phone] Sd dical nal 204 [facility] 2019-06-06 2019-06-06 Outpatient R JOYCE [facility] [id number] Univers 09:45:00 09:45:00 ROBBIE ity [facility] 2019-06-06 2019-06-06 Telephone [facility] 1.2.769.780 [id number] Univers 00:00:00 00:00:00 Gloria Fernandez [place] 350.1.13.10 ity [facility] 4.2.7.2.[place] [phone] Sd dical nal 377 [facility] 2019-05-24 2019-05-24 [facility] [id number] Univers 16:15:00 16:15:00 ROBBIE ity [facility] 2019-05-24 2019-05-24 Office [facility] 1.2.840.114 [id number] Univers 12:43:32 14:03:24 Visit [facility] [place] 350.1.13.10 i ty [facility] 4.2.7.2.[place] [phone] Sd dical nal 204 [facility] 2019-05-24 2019-05-24 [facility] [id number] Univers 13:00:00 13:00:00 [facility] [place] 2019-05-24 2019-05-24 Orders Doctor NIRAV 1.2.840.114 [id number] Univers 00:00:00 00:00:00 Only Unassigned, KENNETH 350.1.13.10 ity of [place] [facility] 4.2.7.2.686 Bran as [id number] [address] 2019-05-21 2019-05-21 [facility]phone [facility] 1.2.840.114 [id number] Univers 00:00:00 00:00:00 Eduardo [facility] 350.1.13.10 it y of Surgical 4.2.7.2.686 Bran as Specialti [phone] Sd dical es 198 [facility] 2019-05-04 2019-05-04 Office Joyce [facility] 1.2.840.114 [id number] Univers 11:01:36 12:30:18 Visit Rm, Adc Surg Spec Procedure [place] 3 50.1.13.10 ity of [place] 4.2.7.2.[place] [phone] Sd dic[address] 2019-05-04 2019-05-04 Outpatient R [facility] [id number] Univers 11:00:00 11:00:00 ROBBIE ity [facility] 2019-05-04 2019-05-04 Orders Doctor NIRAV 1.2.840.114 [id number] Univers 00:00:00 00:00:00 Only Unassigned, KENNETH 350.1.13.10 ity of [place] [facility] 4.2.7.2.686 Bran as [phone] [address] 2019-04-25 2019-04-25 Outpatient [facility] [id number] [facility] 07:22:00 07:22:00 _J_ 40676 Family Practic e 2019-04-24 2019-04-24 Outpatient [facility] [id number] [address] [place] [address] 00:00:00 00:00:[address]ET [address] 2019-04-23 2019-04-23 Telephone [facility] 1..840.114 [id number] Univers 00:00:00 00:00:00 Robbie [place] 350.1.13.10 i ty of [place] 4[place]2.7.2.[place] [phone] [address] 2019-04-20 2019-04-20 Outpatient R [facility] [id number] Univers 11:00:00 12:03:25 [facility] [place] 2019-04-20 2019-04-20 Office [facility] 1.2.840.114 [id number] Univers 10:57:47 12:03:25 Visit [facility] 350.1.13.10 i ty of [place] 4.2.7.2.[place] [phone] [address] 2019-04-20 2019-04-20 Orders Doctor NIRAV 1.2.840.114 [id number] Univers 00:00:00 00:00:00 Only Unassigned, KENNETH 350.1.13.10 ity of [place] [facility] 4.2.7.2.686 Bran as [phone] [address] 2018-10-31 2018-10-31 Refill Juanita [facility] 1.2.633.738 [id number] Univers 00:00:00 00:00:00 Eduardo Elliott 350.1.13.10 it y of Surgical 4.2.7.2.686 Bran as Specialti [phone] Sd dical es 198 [facility] 2018-10-06 2018-10-06 Office Juanita [facility] 1.2.594.588 [id number] Univers 08:24:12 09:20:41 Visit Eduardo Elliott 350.1.13.10 it y of Surgical 4.2.7.2.686 Bran as Specialti [phone] Sd dical es 198 [facility] 2018-10-04 2018-10-04 Orders Doctor NIRAV 1.2.840.114 [id number] Univers 00:00:00 00:00:00 Only Unassigned, KENNETH 350.1.13.10 ity of [place] [facility] 4.2.7.2.686 Bran as [id number] [address] 2018-04-20 2018-04-20 Orders Doctor NIRAV 1.2.840.114 [id number] Univers 00:00:00 00:00:00 Only Unassigned, KENNETH 350.1.13.10 ity of [place] [facility] 4.2.7.2.686 Bran as [phone] [address] 2015-02-10 2015-02-10 Outpatient [facility] [id number] [id number] [facility] 16:05:13 17:30:32 LASHON Blevins Results Test Description Test Time Test Comments [...] See_Comment [Au tomated message] The system which [employer] nerated this result transmit dena reference range: [...] 32.2 g/dL 31.2-35.0 RDW-SD (test code = 96331-8) 43.8 fL 38.5-51.6 RDW-CV (test code = 788-0) 12.9 % 12.1-15.4 PLT (test code = 777-3) See_Comment [Au tomated message] The system which [employer] nerated this result transmit dena reference range: 150 - 32 8 10*3/?L. The reference range was not used to interpret th is result as normal/abnormal . MPV (test code = 76960-8) 11.2 fL 9.8-13.0 NRBC/100 WBC (test code = See_Comment [ Automated message] The [id number]) system which [employer] nerated this result transmit dena reference range: 0.0 - 10 .0 /100 WBCs. The reference r nela was not used to interpr et this result as normal/abnor mal. NRBC x10^3 (test code = <0.01 See_Comment [Au tomated message] The [id number]) system which [employer] nerated this result transmit dena reference range: 10*3/?L. The reference range was not u sed to interpret this result as normal/abnormal . SEG % (test code = 71980-3) 36 % 33-76 BAND % (test code = 67376-4) 2 % 0-1 H LYMPH % (test code = 50 % 14-54 40037-3) MONO % (test code = 11967-7) 7 % 0-4 H EOS % (test code = 54922-8) 5 % 0-3 H ANC (test code = 753-4) 3.25 10*3/uL 1.99-6.95 Lab Interpretation (test Abnormal code = 61431-0) [id number] 00:12:52 Test Item Value Reference Interpretation Comments Range TROPONIN I (test 0.004 ng/mL See_Comment [Automated code = 9393734919) message] The system which generated this result [...] biotin. Lab Interpretation Normal (test code = 40200-5) [facility] [id number] 00:09:50 Test Item Value Reference Range Interpretation Comments NT-proBNP (test code 774 pg/mL See_Comment H [Autom ated = 2194167718) message] The system which generated this result transmitted reference range : <=450. The reference range was not used to interpret this result as normal/abnormal . JETT (test code = JETT) Biotin has been reported to cause a negative bias, interpret results relative to patient's use of biotin. Lab Interpretation Abnormal (test code = 32243-6) [facility]IV[facility] PART[facility] THRMPLAS [id number] 00:03:30 Test Item Value Reference Range Interpretation Comments APTT Patient (test See_Comment [Automat ed code = 3173-2) message] The system which generated this result transmitted reference range : 23 - 38 Seconds . The reference range was not used to interpr et this result as normal/abnormal . JETT (test code = JETT) The [facility] patient population mean normal value for aPTT is 30 seconds. Lab Interpretation Normal (test code = 78324-7) [facility]22[facility] 00:02:09 Test Item Value Reference Range Interpretation Comments MAGNESIUM (test code = 4394020789) 2.1 mg/dL 1.7-2.4 Lab Interpretation (test code = Normal 93918-8) [facility]OL[facility] (06905)2021-09-02 00:01:48 Test Item Value Reference Range Interpretation Comments NA (test code = 142 mmol/L 135-145 [id number]) K (test code = 4.1 mmol/L 3.5-5.0 [id number]) CL (test code = 107 mmol/L 98-108 [id number]) CO2 TOTAL (test code = 27 mmol/L 23-31 [id number]) AGAP (test code = 2-16 [id number]) BUN (test code = 21 mg/dL 7-23 [id number]) GLUCOSE (test code = 135 mg/dL 70-110 H [id number]) CREATININE (test code = 1.08 mg/dL 0.60-1.25 9445978426) TOTAL BILI (test code = 0.5 mg/dL 0.1-1.0 5985411972) CALCIUM (test code = 8.7 mg/dL 8.6-10.6 2099380729) T PROTEIN (test code = 6.3 g/dL 6.3-8.2 3055039971) ALBUMIN (test code = 3.8 g/dL 3.5-5.0 3243757721) ALK PHOS (test code = 77 U/L 34-122 8261664545) ALTv (test code = 23 U/L 5-50 1742-6) AST(SGOT) (test code = 29 U/L 13-40 6841344645) eGFR (test code = mL/min/1.73m2 9218792448) JETT (test code = JETT) Association of [...] tests). Lab Interpretation Abnormal (test code = 24073-9) [facility] / [id number] 00:01:28 Test Item Value Reference Range Interpretation Comments PROTIME PATIENT (test See_Comment H [Auto mated message] code = 5964-2) The system [employer] generated this result transmitted ref erence range: 12.0 - 1 4.7 Seconds. The reference range was not used to int erpret this result as normal/abnormal . INR (test code = 6301-6) Nor mal INR <1.1; Warfarin Therap eutic range 2.0 to 3. 0 or 2.5 to 3.5, dep ending upon the indica tions. Lab Interpretation (test Abnormal code = 70385-1) [facility] 09:31:43 Test Item Value Reference Range Interpretation Comments PTT (test code = 87.5 See_Comment H [Automated message] 55094-5) The system whic h generated this result transmitted ref erence range: 22.5 - 3 6.0 seconds. The reference range was not used to int erpret this result as normal/abnormal . Lab Interpretation (test Abnormal code = 43286-4) [facility] Test Item Value Reference Range Interpretation Comments PARTIAL THROMBOPLASTIN TIME 87.5 seconds 22.5-36.0 H (BEAKER) (test code = 760) Pwyzcvtpi2046-53-87 07:07:31 Test Item Value Reference Range Interpretation Comments Magnesium (test code = 2.0 mg/dL 1.6-2.6 63494-8) JETT (test code = JETT) Toolmaker Helper ID - BRANDONENRIKE L Lab Interpretation (test Normal code = 26740-3) [facility] 07:07:31 Test Item Value Reference Range Interpretation Comments Phosphorus (test code = 3.9 mg/dL 2.3-4.7 2777-1) JETT (test code = JETT) Toolmaker Helper ID - BRANDONENRIKE L Lab Interpretation (test Normal code = 62682-8) [facility]MAGN[facility]UM20[facility]-02 07:07:31 Test Item Value Reference Range Interpretation Comments MAGNESIUM (BEAKER) (test code = 2.0 mg/dL 1.6-2.6 627) Toolmaker Helper ID - MERON ADNAGVLEPIE8834-35-38 07:07:31 Test Item Value Reference Range Interpretation Comments PHOSPHORUS (BEAKER) (test code = 3.9 mg/dL 2.3-4.7 604) Toolmaker Helper ID - MERON LComprehensive metabolic [id number] 07:07:30 Test Item Value Reference Range Interpretation Comments Protein, Total (test 6.0 See_Comment [Autom ated code = 2885-2) message] The system which generated this result transmit dena reference range : 6.0 - 8.3 gm/dL . The reference range was not u sed to interpret th is result as normal/abnormal . Albumin (test code = 3.4 g/dL 3.5-5.0 L 39792-5) Alkaline Phosphatase 53 U/L 40-150 (test code = 6768-6) Total Bilirubin (test 0.7 mg/dL 0.2-1.2 code = 1975-2) Sodium (test code = 141 meq/L 063-635 1098-2) Potassium (test code 3.9 meq/L 3.5-5.1 = 2823-3) Chloride (test code = 111 meq/L 98-107 H 2074-0) CO2 (test code = 25 meq/L -2027-9) BUN (test code = 15 mg/dL 7-21 3094-0) Creatinine (test code 0.83 mg/dL 0.57-1.25 = 2160-0) Glucose (test code = 97 mg/dL 70-105 2345-7) Calcium (test code = 8.8 mg/dL 8.4-10.2 50247-0) AST (test code = 18 U/L 5-34 1920-8) ALT (test code = 16 U/L 6-55 1742-6) EGFR (test code = 87 mL/min/1.73 [place] [address]-2) NOT ACCURATE CREATININE CLEARANCE IN PREDICTING GLOMERULAR FILTRATION RATE . ESTIMATED GFR I S NOT APPLICABLE FOR DIALYSIS PATIEN TS. JETT (test code = JETT) Toolmaker Helper ID - PIAYA L Lab Interpretation Abnormal (test code = 99621-7) [facility] HospitalCOMPREHENSIVE METABOLIC [id number] 07:07:30 Test Item Value Reference Range Interpretation [...] = 382) CO2 (BEAKER) (test 25 meq/L - code = 355) BLOOD UREA NITROGEN 15 [...] S NOT APPLICABLE FOR DIALYSIS PATIEN TS. Toolmaker Helper ID - MERON HENDRICKSZTBGI6429-75-77 06:38:29 Test Item Value Reference Range Interpretation Comments PARTIAL THROMBOPLASTIN TIME 115.6 seconds 22.5-36.0 H (BEAKER) (test code = 760) CBC with platelet count + automated vrpc1516-56-32 06:16:50 Test Item Value Reference Range Interpretation Comments WBC (test code = 6690-2) 8.1 See_Comment [A utomated message] The system [employer] generated this result transmitted ref erence range: 3.5 - 10 .5 K/L. The refe rence range was not u sed to interpret this result as normal/abnor mal. RBC (test code = 789-8) 4.07 See_Comment L [Au tomated message] The system [employer] generated this result transmitted ref erence range: 4.63 - 6 .08 M/L. The refe rence range was not u sed to interpret this result as normal/abnor mal. MCHC (test code = 786-4) 32.2 See_Comment L [A utomated message] The system [employer] generated this result transmitted ref erence range: [...] See_Comment [Aut omated message] 777-3) The system [employer] generated this result transmitted ref erence range: 150 - 45 0 K/CU MM. The referen ce range was not u sed to interpret this result as normal/abnor mal. MPV (test code = 11.2 fL 9.4-12.4 96994-7) nRBC (test code = 413) 0 See_Comment [Aut omated message] The system [employer] generated this result transmitted ref erence range: [...] See_Comment [Aut omated message] 670) The system [employer] generated this result transmitted ref erence range: 1.78 - 5 .38 K/L. The refe rence range was not u sed to interpret this result as normal/abnor mal. # Lymphs (test code = 2.81 See_Comment [Auto mated message] 414) The system [employer] generated this result transmitted ref erence range: 1.32 - 3 .57 K/L. The refe rence range was not u sed to interpret this result as normal/abnor mal. # Monos (test code = 0.65 See_Comment [Autom ated message] 415) The system [employer] generated this result transmitted ref erence range: 0.30 - 0 .82 K/L. The refe rence range was not u sed to interpret this result as normal/abnor mal. # Eos (test code = 416) 0.40 See_Comment [Au tomated message] The system [employer] generated this result transmitted ref erence range: 0.04 - 0 .54 K/L. The refe rence range was not u sed to interpret this result as normal/abnor mal. # Baso (test code = 417) 0.09 See_Comment H [A utomated message] The system [employer] generated this result transmitted ref erence range: 0.01 - 0 .08 K/L. The refe rence range was not u sed to interpret this result as normal/abnor mal. Immature 1 % 0-1 Granulocytes-Relative (test code = 2801) Lab Interpretation (test Abnormal code = 55684-8) [facility] W/PLT COUNT & AUTO [id number] 06:16:50 Test Item Value Reference Range Interpretation [...] = 2801) Daily Prothrombin time/INR while on bqnxaxfx0932-69-72 06:13:51 Test Item Value Reference Interpretation Comments Range Protime (test code = 20.5 See_Comment H [Autom ated 5902-2) message] The system which generated this result transmitted reference range : 11.9 - 14.2 seconds. The reference range was not used to interpret this result as normal/abnormal . INR (test code = 1.78 See_Comment [Automated 6301-6) message] The system which generated this result [...] valves. Lab Interpretation Abnormal (test code = 34372-1) [facility] HospitalPROTHROMBIN TIME/[id number] 06:13:51 Test Item Value Reference Range Interpretation Comments PROTIME (BEAKER) 20.5 seconds 11.9-14.2 H (test code = 759) INR (BEAKER) (test 1.78 See_Comment [Automat ed message] code = 370) The system whic h generated this result transmitted ref erence range: <=5.90. The reference range was not used to int erpret this result as normal/abnormal . RECOMMENDED COUMADIN/WARFARIN INR THERAPY RANGESSTANDARD DOSE: 2.0 - 3.0 Includes: PROPHYLAXIS for venous thrombosis, systemic embolization; TREATMENT for venous thrombosis and/or pulmonary embolus.HIGH RISK: Target INR is 2.5-3.5 for patients with mechanical heart valves.[id number] 01:58:38 Test Item Value Reference Range Interpretation Comments PARTIAL THROMBOPLASTIN TIME 88.8 seconds 22.5-36.0 H (BEAKER) (test code = 760) POC-Glucose [id number] 23:44:39 Test Item Value Reference Range Interpretation Comments POC-Glucose Meter (test 103 mg/dL 70-110 : TE STED AT [facility] code = 1538) [address] [facility], 770 30: Toolmaker Helper/Techni cory ID = [id number] for Ashley Waller Lab Interpretation (test Normal code = 78939-3) [facility] HospitalPOCT-GLUCOSE [id number] 23:44:39 Test Item Value Reference Range Interpretation Comments POC-GLUCOSE METER 103 mg/dL 70-110 : TESTED A T [facility] [address] (BEAKER) (test code = [facility], 1538) [address]: Toolmaker Helper/Techni cory ID = [id number] for Ashley Garcia [id number] 18:49:14 Test Item Value Reference Range Interpretation Comments PARTIAL THROMBOPLASTIN TIME 62.6 seconds 22.5-36.0 H (BEAKER) (test code = 760) POCT-GLUCOSE [id number] 11:52:36 Test Item Value Reference Range Interpretation Comments POC-GLUCOSE METER 88 mg/dL 70-110 : TESTED A T [facility] 6720 (BEAKER) (test code = [facility], 1538) [address]: Toolmaker Helper/Techni cory ID = [id number] for MARISELA KELLOGG [id number] 10:29:13 Test Item Value Reference Range Interpretation Comments PARTIAL THROMBOPLASTIN TIME 95.0 seconds 22.5-36.0 H (BEAKER) (test code = 760) [id number] 09:21:32 Test Item Value Reference Range Interpretation Comments PHOSPHORUS (BEAKER) (test code = 3.9 mg/dL 2.3-4.7 604) Toolmaker Helper ID - MERON LCOMPREHENSIVE METABOLIC [id number] 09:21:31 Test Item Value Reference Range Interpretation [...] S NOT APPLICABLE FOR DIALYSIS PATIEN TS. Toolmaker Helper ID - MERON [id number] 09:21:31 Test Item Value Reference Range Interpretation Comments MAGNESIUM (BEAKER) (test code = 2.0 mg/dL 1.6-2.6 627) Toolmaker Helper ID - MERON LPROTHROMBIN TIME/[id number] 06:28:22 Test Item Value Reference Range Interpretation Comments PROTIME (BEAKER) 16.4 seconds 11.9-14.2 H (test code = 759) INR (BEAKER) (test 1.35 See_Comment [Automat ed message] code = 370) The system whic h generated this result [...] mechanical heart valves.CBC W/PLT COUNT & AUTO [id number] 06:24:34 Test Item Value Reference Range Interpretation [...] PERCENT (BEAKER) (test code = 2801) POCT-GLUCOSE [id number] 06:13:53 Test Item Value Reference Range Interpretation Comments POC-GLUCOSE METER 100 mg/dL 70-110 : TESTED A T [facility] 6720 (BEAKER) (test code = [facility], 1538) [address]: Toolmaker Helper/Techni cory ID = [id number] for Ashley Garcia POCT-GLUCOSE [id number] 00:08:35 Test Item Value Reference Range Interpretation Comments POC-GLUCOSE METER 100 mg/dL 70-110 : TESTED A T [facility] 6720 (BEAKER) (test code = [facility], 1538) [address]: Toolmaker Helper/Techni cory ID = [id number] for Ashley Garcia [id number] 23:35:31 Test Item Value Reference Range Interpretation Comments PARTIAL THROMBOPLASTIN TIME 109.7 seconds 22.5-36.0 H (BEAKER) (test code = 760) 2D Echo W/Doppler(CW/PW/Color)2021-04-06 17:15:30Ejection FractionSLEH ECHO HEARTLAB MKCKESSON [facility] 09:46:56 Test Item Value Reference Range Interpretation Comments PARTIAL THROMBOPLASTIN TIME 33.2 seconds 22.5-36.0 (BEAKER) (test code = 760) CT, CHEST, WITH [id number] 08:40:00Unlisted Reason for Exam - Click Yes and Enter Reason Below->Yespost TAVRUnlisted Reason for Exam->evalauate for leaflet thrombosis [facility] : 1935 Sex: [...] PolancoMDReport Verified Date/Time: 04/06/2021 08:40:10 REHENSIVE METABOLIC [id number] 06:21:48 Test Item Value Reference Range Interpretation [...] S NOT APPLICABLE FOR DIALYSIS PATIEN TS. Toolmaker Helper ID - MERON LOperator ID - EOUGKUYTFIHT5969-29-52 05:55:52 Test Item Value Reference Range Interpretation Comments PHOSPHORUS (BEAKER) (test code = 4.2 mg/dL 2.3-4.7 604) Toolmaker Helper ID - MERON GXBOEAFFHT0057-07-88 05:55:51 Test Item Value Reference Range Interpretation Comments MAGNESIUM (BEAKER) (test code = 2.0 mg/dL 1.6-2.6 627) Toolmaker Helper ID - MERON LPROTHROMBIN TIME/[id number] 05:31:15 Test Item Value Reference Range Interpretation Comments PROTIME (BEAKER) 14.4 seconds 11.9-14.2 H (test code = 759) INR (BEAKER) (test 1.14 See_Comment [Automat ed message] code = 370) The system [employer] generated this result transmitted ref erence range: <=5.90. The reference range was not used to int erpret this result as normal/abnormal . RECOMMENDED COUMADIN/WARFARIN INR THERAPY RANGESSTANDARD DOSE: 2.0 - 3.0 Includes: PROPHYLAXIS for venous thrombosis, systemic embolization; TREATMENT for venous thrombosis and/or pulmonary embolus.HIGH RISK: Target INR is 2.5-3.5 for patients with mechanical heart valves.CBC W/PLT COUNT & AUTO [id number] 05:15:40 Test Item Value Reference Range Interpretation [...] 0-1 PERCENT (BEAKER) (test code = 2801) [id number] 02:49:42 Test Item Value Reference Range Interpretation Comments PARTIAL THROMBOPLASTIN TIME 43.7 seconds 22.5-36.0 H (BEAKER) (test code = 760) POCT-GLUCOSE [id number] 22:40:25 Test Item Value Reference Range Interpretation Comments POC-GLUCOSE METER 95 mg/dL 70-110 : TESTED A T [facility] 6720 (BEAKER) (test code = [facility], 1538) [address]: Toolmaker Helper/Techni cory ID = [id number] for Rojelio murphy (Kiel)Alba [id number] 18:10:18 Test Item Value Reference Range Interpretation Comments PARTIAL THROMBOPLASTIN TIME 109.1 seconds 22.5-36.0 H (BEAKER) (test code = 760) [id number] 12:21:05 Test Item Value Reference Range Interpretation Comments PARTIAL THROMBOPLASTIN TIME 70.1 seconds 22.5-36.0 H (BEAKER) (test code = 760) POCT-GLUCOSE [id number] 06:54:14 Test Item Value Reference Range Interpretation Comments POC-GLUCOSE METER 93 mg/dL 70-110 : TESTED A T [facility] [address] (BEAKER) (test code = [facility], 153) [address]: Toolmaker Helper/Techni cory ID = [id number] for Ela Hilario [id number] 05:14:19 Test Item Value Reference Range Interpretation Comments PARTIAL THROMBOPLASTIN TIME 85.7 seconds 22.5-36.0 H (BEAKER) (test code = 760) PROTHROMBIN TIME/[id number] 05:12:27 Test Item Value Reference Range Interpretation Comments PROTIME (BEAKER) 14.5 seconds 11.9-14.2 H (test code = 759) INR (BEAKER) (test 1.15 See_Comment [Automat ed message] code = 370) The system [employer] generated this result transmitted ref erence range: [...] S NOT APPLICABLE FOR DIALYSIS PATIEN TS. Toolmaker Helper ID - [id number] 05:05:36 Test Item Value Reference Range Interpretation Comments MAGNESIUM (BEAKER) (test code = 2.0 mg/dL 1.6-2.6 627) Toolmaker Helper ID - TVKJSCFHWZDD9146-54-70 05:05:36 Test Item Value Reference Range Interpretation Comments PHOSPHORUS (BEAKER) (test code = 3.8 mg/dL 2.3-4.7 604) Toolmaker Helper ID - DBCBC W/PLT COUNT & AUTO [id number] 04:29:42 Test Item Value Reference Range Interpretation [...] PERCENT (BEAKER) (test code = 2801) POCT-GLUCOSE [id number] 00:54:16 Test Item Value Reference Range Interpretation Comments POC-GLUCOSE METER 94 mg/dL 70-110 : TESTED A T [facility] 6720 (BEAKER) (test code = [facility], 1538) [address]: Toolmaker Helper/Techni cory ID = [id number] for Ela Hilario PROTHROMBIN TIME/[id number] 09:53:09 Test Item Value Reference Range Interpretation Comments PROTIME (BEAKER) 15.4 seconds 11.9-14.2 H (test code = 759) INR (BEAKER) (test 1.24 See_Comment [Automat ed message] code = 370) The system [employer] generated this result transmitted ref erence range: <=5.90. The reference range was not used to int erpret this result as normal/abnormal . RECOMMENDED COUMADIN/WARFARIN INR THERAPY RANGESSTANDARD DOSE: 2.0 - 3.0 Includes: PROPHYLAXIS for venous thrombosis, systemic embolization; TREATMENT for venous thrombosis and/or pulmonary embolus.HIGH RISK: Target INR is 2.5-3.5 for patients with mechanical heart valves.[id number] 07:06:20 Test Item Value Reference Range Interpretation Comments PHOSPHORUS (BEAKER) (test code = 3.0 mg/dL 2.3-4.7 604) Toolmaker Helper ID - TRISTIAN WCOMPREHENSIVE METABOLIC [id number] 07:06:19 Test Item Value Reference Range Interpretation [...] S NOT APPLICABLE FOR DIALYSIS PATIEN TS. Toolmaker Helper ID - TRISTIAN [id number] 07:06:19 Test Item Value Reference Range Interpretation Comments MAGNESIUM (BEAKER) (test code = 2.0 mg/dL 1.6-2.6 627) Toolmaker Helper ID - TRISTIAN [id number] 06:30:10 Test Item Value Reference Range Interpretation Comments PARTIAL THROMBOPLASTIN TIME 76.4 seconds 22.5-36.0 H (BEAKER) (test code = 760) CBC W/PLT COUNT & AUTO [id number] 06:21:06 Test Item Value Reference Range Interpretation [...] 0-1 PERCENT (BEAKER) (test code = 2801) [id number] 23:26:41 Test Item Value Reference Range Interpretation Comments PARTIAL THROMBOPLASTIN TIME 81.1 seconds 22.5-36.0 H (BEAKER) (test code = 760) Hemoglobin and qxnawgwvna7754-65-20 23:26:00 Test Item Value Reference Range Interpretation [...] = 4544-3) JETT (test code = JETT) Toolmaker Helper ID - [id number] ID - [id number] Lab Interpretation Abnormal (test code = 94104-0) [facility] HospitalHEMOGLOBIN AND [id number] 23:26:00 Test Item Value Reference Range Interpretation Comments HEMOGLOBIN (BEAKER) (test code = 11.6 GM/DL 13.7-17.5 L 410) HEMATOCRIT (BEAKER) (test code = 35.4 % 40.1-51.0 L 411) Toolmaker Helper ID - 6000Operator ID - [id number] 12:04:57 Test Item Value Reference Range Interpretation Comments PARTIAL THROMBOPLASTIN TIME 32.2 seconds 22.5-36.0 (BEAKER) (test code = 760) Platelet [id number] 12:03:08 Test Item Value Reference Range Interpretation Comments Platelets (test code 110 See_Comment L [Autom ated = 777-3) message] The system which generated this result transmit dena reference range : 150 - 450 K/CU MM. The reference range was not u sed to interpret th is result as normal/abnormal . JETT (test code = JETT) Toolmaker Helper ID - 6000Operator ID - [id number] Lab Interpretation Abnormal (test code = 97781-6) [facility] HospitalPLATELET [id number] 12:03:08 Test Item Value Reference Range Interpretation Comments PLATELET COUNT (BEAKER) (test 110 K/CU MM 150-450 L code = 756) Toolmaker Helper ID - 6000Operator ID - [id number] 05:25:05 Test Item Value Reference Range Interpretation Comments PHOSPHORUS (BEAKER) (test code = 2.2 mg/dL 2.3-4.7 L 604) Toolmaker Helper ID - MERON LCOMPREHENSIVE METABOLIC [id number] 05:25:04 Test Item Value Reference Range Interpretation [...] S NOT APPLICABLE FOR DIALYSIS PATIEN TS. Toolmaker Helper ID - BRANDONENRIKE RPFXGZWJUO8691-82-37 05:25:04 Test Item Value Reference Range Interpretation Comments MAGNESIUM (BEAKER) (test code = 2.0 mg/dL 1.6-2.6 627) Toolmaker Helper ID - MERON LCBC W/PLT COUNT & AUTO [id number] 05:07:55 Test Item Value Reference Range Interpretation [...] PERCENT (BEAKER) (test code = 2801) PROTHROMBIN TIME/[id number] 05:04:30 Test Item Value Reference Range Interpretation Comments PROTIME (BEAKER) 16.7 seconds 11.9-14.2 H (test code = 759) INR (BEAKER) (test 1.37 See_Comment [Automat ed message] code = 370) The system [facility] generated this result transmitted ref erence range: <=5.90. The reference range was not used to int erpret this result as normal/abnormal . RECOMMENDED COUMADIN/WARFARIN INR THERAPY RANGESSTANDARD DOSE: 2.0 - 3.0 Includes: PROPHYLAXIS for venous thrombosis, systemic embolization; TREATMENT for venous thrombosis and/or pulmonary embolus.HIGH RISK: Target INR is 2.5-3.5 for patients with mechanical heart valves.Urinalysis Microscopic [id number] 17:49:35 Test Item Value Reference Range Interpretation Comments RBC, UA (test 149 See_Comment [Automated me ssage] code = 22704-8) The system [facility] generated this result transmit dena reference range : /HPF. The refer ence range was not u sed to interpret th is result as normal/abnormal . WBC, UA (test 72 See_Comment [Automated me [employer]] code = 5821-4) The system [facility] generated this result transmit dena reference range : /HPF. The refer ence range was not u sed to interpret th is result as normal/abnormal . Bacteria, UA Occasional (test code = 54051-4) Mucus (test Few code = 8247-9) Crystals, Urine None Seen (test code = 91767-6) JETT (test code Toolmaker Helper ID - tech = JETT) [facility]URIN[facility]IS [id number] 17:49:35 Test Item Value Reference Range Interpretation Comments RBC UA (BEAKER) (test code = 519) 149 /HPF WBC UA (BEAKER) (test code = 520) 72 /HPF BACTERIA (BEAKER) (test code = Occasional 517) MUCUS (BEAKER) (test code = 1574) Few CRYSTALS, URINE (BEAKER) (test None Seen code = 1521) Toolmaker Helper ID - techUrinalysis with Microscopic If Btnsqqkkv1150-17-94 17:22:23 Test Item Value Reference Range Interpretation Comments Color, UA (test code = Yellow 5778-6) Clarity, UA (test code = Hazy 5767-9) Specific [place], UA (test 1.014 1.001-1.035 code = 5811-5) pH, UA (test code = 6.0 5.0-8.0 5803-2) Protein, UA (test code = 200 mg/dL Negative A 48323-8) Glucose, UA (test code = Negative Negative 365) Ketones, UA (test code = Negative Negative 2514-8) Bilirubin, UA (test code = Negative Negative 88044-1) Blood, UA (test code = Large Negative A 11270-5) Nitrite, UA (test code = Negative Negative 5802-4) Leukocytes, UA (test code Moderate Negative A = 5799-2) Urobilinogen, UA (test 0.2 mg/dL 0.2-1.0 code = 88004-3) Specimen Source (test code = 2795) JETT (test code = JTET) Toolmaker Helper ID - [auto] Lab Interpretation (test Abnormal code = 26386-9) [facility]UR[facility]IS WITH MICROSCOPIC IF [id number] 17:22:23 Test Item Value Reference Range Interpretation [...] = 463) SOURCE(BEAKER) (test code = 2795) Toolmaker Helper ID - [auto]Hepatic function [id number] 09:19:11 Test Item Value Reference Range Interpretation Comments Protein, Total (test 6.5 See_Comment [Autom ated code = 2885-2) message] The system which generated this result transmit dena reference range : 6.0 - 8.3 gm/dL . The reference range was not u sed to interpret th is result as normal/abnormal . Albumin (test code = 3.8 g/dL 3.5-5.0 98528-5) Total Bilirubin (test 1.5 mg/dL 0.2-1.2 H code = 1975-2) Bilirubin, Direct 0.5 mg/dL 0.1-0.5 (test code = 1968-7) Alkaline Phosphatase 60 U/L 40-150 (test code = 6768-6) AST (test code = 17 U/L 5-34 1920-8) ALT (test code = 12 U/L 6-55 1742-6) JETT (test code = JETT) Toolmaker Helper ID - MERON L Lab Interpretation Abnormal (test code = 15423-1) [facility] HospitalHEPATIC FUNCTION [id number] 09:19:11 Test Item Value Reference Range Interpretation [...] (test code = 12 U/L 6-55 347) Toolmaker Helper ID - MERON LBasic metabolic deaeq3212-15-89 09:19:10 Test Item Value Reference Range Interpretation Comments Sodium (test code = 140 meq/L 185-722 7702-2) Potassium (test code = 3.9 meq/L 3.5-5.1 2823-3) Chloride (test code = 105 meq/L 98-107 2075-0) CO2 (test code = 28 meq/L 22-29 2028-9) BUN (test code = 18 mg/dL 7-21 3094-0) Creatinine (test code 1.12 mg/dL 0.57-1.25 = 2160-0) Glucose (test code = 142 mg/dL 70-105 H 2345-7) Calcium (test code = 8.9 mg/dL 8.4-10.2 45503-6) EGFR (test code = 62 mL/min/1.73 [place] [address]-2) NOT ACCURATE CREATININE CLEARANCE IN PREDICTING GLOMERULAR FILTRATION RATE . ESTIMATED GFR I S NOT APPLICABLE FOR DIALYSIS PATIENTS. JETT (test code = JETT) Toolmaker Helper ID - MERON Sandhu Lab Interpretation Abnormal (test code = 50173-7) [facility] METABOLIC [id number] 09:19:10 Test Item Value Reference Range Interpretation [...] S NOT APPLICABLE FOR DIALYSIS PATIEN TS. Toolmaker Helper ID - MERON LPROTHROMBIN TIME/[id number] 09:10:27 Test Item Value Reference Range Interpretation Comments PROTIME (BEAKER) 22.4 seconds 11.9-14.2 H (test code = 759) INR (BEAKER) (test 1.99 See_Comment [Automat ed message] code = 370) The system Meetyl generated this result transmitted ref erence range: <=5.90. The reference range was not used to int erpret this result as normal/abnormal . RECOMMENDED COUMADIN/WARFARIN INR THERAPY RANGESSTANDARD DOSE: 2.0 - 3.0 Includes: PROPHYLAXIS for venous thrombosis, systemic embolization; TREATMENT for venous thrombosis and/or pulmonary embolus.HIGH RISK: Target INR is 2.5-3.5 for patients with mechanical heart valves.CBC W/PLT COUNT & AUTO [id number] 08:59:10 Test Item Value Reference Range Interpretation [...] PERCENT (BEAKER) (test code = 2801) BLOOD [id number] 10:00:00 Test Item Value Reference Range Interpretation Comments CULTURE (BEAKER) (test No growth in 5 days code = 1095) BLOOD [id number] 10:00:00 Test Item Value Reference Range Interpretation Comments CULTURE (BEAKER) (test No growth in 5 days code = 1095) CT, CTA, [id number] 09:40:00Unlisted Reason for Exam - Click Yes and Enter Reason Below->YesUnlisted 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 East. Additional nonvascular findings include: Diffuse bronchial wall thickening with trace mucus in the trachea, suggestive of bronchitis. Patchy groundglass opacities in both lungs, suggestive of pneumonia. Signed: Gualberto Levy MDReport Verified Date/Time: 01/03/2020 09:40:[address] [facility] EndsFINAL REPORT CT angiography the TAVR, 02-Jan-20 [...] dictated regarding the non-vascular findings by the Early Childhood Special Educator Radiologist. Major vascularfindings were discussed with Dr. Valladares at the time of dictation. Signed: Edwardo East FELICEeport Verified Date/Time: 01/02/2020 16:43:17 Reading Location: [place] [address] [address] Reading Room COMPREHENSIVE METABOLIC [id number] 07:24:00 Test Item Value Reference Range Interpretation [...] S NOT APPLICABLE FOR DIALYSIS PATIEN TS. Toolmaker Helper ID - QUINCY [id number] 07:24:00 Test Item Value Reference Range Interpretation Comments MAGNESIUM (BEAKER) (test code = 1.8 mg/dL 1.6-2.6 627) Toolmaker Helper ID - QUINCY [id number] 07:24:00 Test Item Value Reference Range Interpretation Comments PHOSPHORUS (BEAKER) (test code = 2.7 mg/dL 2.3-4.7 604) Toolmaker Helper ID - QUINCY FPROTHROMBIN TIME/[id number] 07:00:00 Test Item Value Reference Range Interpretation [...] valves.While on warfarin.CBC W/PLT COUNT & AUTO [id number] 06:56:00 Test Item Value Reference Range Interpretation [...] PERCENT (BEAKER) (test code = 2801) PROTHROMBIN TIME/[id number] 18:01:00 Test Item Value Reference Range Interpretation [...] is 2.5-3.5 for patients wiht mechanical heart valves.[id number] 06:38:00 Test Item Value Reference Range Interpretation Comments MAGNESIUM (BEAKER) (test code = 1.8 mg/dL 1.6-2.6 627) Toolmaker Helper ID - EDASICOMPREHENSIVE METABOLIC [id number] 06:38:00 Test Item Value Reference Range Interpretation [...] S NOT APPLICABLE FOR DIALYSIS PATIEN TS. Toolmaker Helper ID - [id number] 06:38:00 Test Item Value Reference Range Interpretation Comments PHOSPHORUS (BEAKER) (test code = 2.7 mg/dL 2.3-4.7 604) Toolmaker Helper ID - EDASICBC W/PLT COUNT & AUTO [id number] 06:03:00 Test Item Value Reference Range Interpretation [...] PERCENT (BEAKER) (test code = 2801) MRSA [id number] 15:50:00 Test Item Value Reference Range Interpretation Comments CULTURE (BEAKER) (test code No MRSA isolated = 1095) FL, ESOPH, SWALLOW FUNCTION, WITH CINE OR [id number] 15:38:00D/c NGT prior to the study and then attemptReason for exam:->dysphagea [facility]ENTER[facility]V [facility]ONE : 1935 [...] Wilkinson Verified Date/Time: 01/01/2020 15:38:45 Reading Location: [address] Consult Reading Room [id number] 06:21:00 Test Item Value Reference Range Interpretation Comments MAGNESIUM (BEAKER) (test code = 1.9 mg/dL 1.6-2.6 627) Toolmaker Helper ID - edasiCOMPREHENSIVE METABOLIC [id number] 06:21:00 Test Item Value Reference Range Interpretation [...] S NOT APPLICABLE FOR DIALYSIS PATIEN TS. Toolmaker Helper ID - [id number] 06:21:00 Test Item Value Reference Range Interpretation Comments PHOSPHORUS (BEAKER) (test code = 1.8 mg/dL 2.3-4.7 L 604) Toolmaker Helper ID - edasiCBC W/PLT COUNT & AUTO [id number] 05:52:00 Test Item Value Reference Range Interpretation [...] PERCENT (BEAKER) (test code = 2801) POCT-GLUCOSE [id number] 19:08:00 Test Item Value Reference Range Interpretation Comments POC-GLUCOSE METER 73 mg/dL 70-110 : TESTED A T [facility] 6720 (BEAKER) (test code = [facility], 1538) [address]: Toolmaker Helper/Techni cory ID = [id number] for WILL ENZO, ALEXANDRO POCT-GLUCOSE [id number] 14:49:00 Test Item Value Reference Range Interpretation Comments POC-GLUCOSE METER 74 mg/dL 70-110 : TESTED A T [facility] 6720 (BEAKER) (test code = [facility], 1538) [address]: Toolmaker Helper/Techni cory ID = [id number] for [facility] Chauhan MRSA [id number] 12:26:00 Test Item Value Reference Range Interpretation Comments CULTURE (BEAKER) (test code No MRSA isolated = 1095) SPUTUM CULTURE + GRAM [id number] 12:26:00 Test Item Value Reference Range Interpretation Comments CULTURE (BEAKER) 1+ Normal respiratory (test code = 1095) regina present GRAM STAIN RESULT 4+ WBCs (BEAKER) (test code = 1123) GRAM STAIN RESULT 0-5 epithelial cells (BEAKER) (test code = 11686) GRAM STAIN RESULT <1+ gram positive cocci (BEAKER) (test code = in pairs and clusters 41634) COMPREHENSIVE METABOLIC [id number] 06:48:00 Test Item Value Reference Range Interpretation [...] S NOT APPLICABLE FOR DIALYSIS PATIEN TS. Toolmaker Helper ID - MERON [id number] 06:48:00 Test Item Value Reference Range Interpretation Comments MAGNESIUM (BEAKER) (test code = 2.0 mg/dL 1.6-2.6 627) Toolmaker Helper ID - MERON [id number] 06:48:00 Test Item Value Reference Range Interpretation Comments PHOSPHORUS (BEAKER) (test code = 2.0 mg/dL 2.3-4.7 L 604) Toolmaker Helper ID - MERON JASEN/S, RENAL, [id number] 06:39:00Reason for exam:- >worsening kidney function/ metabolic acidosis [facility] 1935 Sex: [...] 12/31/2019 06:39:51 CBC W/PLT COUNT & AUTO [id number] 06:11:00 Test Item Value Reference Range Interpretation [...] = 2801) RAD, CHEST, 1 VIEW, NON [id number] 01:43:00Reason for exam:->respiratory failureShould this be performed at the bedside?->Yes [facility] : 1935 Sex: MFINAL REPORT [...] 12/31/2019 01:43:07 CBC W/PLT COUNT & AUTO [id number] 18:42:00 Test Item Value Reference Range Interpretation [...] (BEAKER) (test code = 2801) VANCOMYCIN LEVEL, [id number] 09:49:00 Test Item Value Reference Range Interpretation Comments VANCOMYCIN TROUGH (BEAKER) (test 9.6 ug/mL 10.0-20.0 L code = 522) Toolmaker Helper ID - SUHA CCOMPREHENSIVE METABOLIC [id number] 05:31:00 Test Item Value Reference Range Interpretation [...] S NOT APPLICABLE FOR DIALYSIS PATIEN TS. Toolmaker Helper ID - MERON [id number] 05:13:00 Test Item Value Reference Range Interpretation Comments MAGNESIUM (BEAKER) (test code = 1.6 mg/dL 1.6-2.6 627) Toolmaker Helper ID - BRANDONENRIKE [id number] 05:13:00 Test Item Value Reference Range Interpretation Comments PHOSPHORUS (BEAKER) (test code = 2.6 mg/dL 2.3-4.7 604) Toolmaker Helper ID - PIAYA LCBC W/PLT COUNT & AUTO [id number] 04:43:00 Test Item Value Reference Range Interpretation Comments WHITE BLOOD CELL COUNT 19.3 K/ L 3.5-10.5 H (BEAKER) (test code = 775) RED BLOOD CELL COUNT 3.87 M/ L 4.63-6.08 L (BEAKER) (test code = 761) HEMOGLOBIN (BEAKER) 11.7 GM/DL 13.7-17.5 L Discorda nt HGB (test code = 410) results co mpared to previous result s; clinical correl ation required.[id number] HEMATOCRIT (BEAKER) 36.4 % 40.1-51.0 L (test [...] (BEAKER) (test code = 2801) BLOOD GAS, [id number] 04:36:00 Test Item Value Reference Range Interpretation [...] (BEAKER) (test code = 1819) 50.0 CORTISOL,60 [id number] 03:53:00 Test Item Value Reference Range Interpretation [...] Pharmacy Policy and Procedure Section on The Source.Toolmaker Helper ID - PIAYA LCORTISOL,30 MIN 2019-12-30 03:52:00 [...] Pharmacy Policy and Procedure Section on The Source.Toolmaker Helper ID - PIAYA LRAD, CHEST, 1 VIEW, NON [id number] 03:30:00Reason for exam:->respiratory failureShould this be performed at the bedside?->Yes [facility] : 1935 Sex: MFINAL REPORT [...] Anastasiia Aponte MDReport Verified Date/Time: 12/30/2019 03:30:42 CORTISOL,[id number] 01:31:00 Test Item Value Reference Range Interpretation [...] Pharmacy Policy and Procedure Section on The Source.Toolmaker Helper ID - PIAYA LCREATININE, RANDOM [id number] 19:52:00 Test Item Value Reference Range Interpretation Comments CREATININE URINE (BEAKER) (test 310.8 mg/dL code = 375) Reference Range: No NormalsOperator ID - DBSODIUM, RANDOM [id number] 19:52:00 Test Item Value Reference Range Interpretation Comments SODIUM URINE (BEAKER) (test code = < meq/L 243) Reference Range: No NormalsOperator ID - DBPOCT-GLUCOSE [id number] 18:14:00 Test Item Value Reference Range Interpretation Comments POC-GLUCOSE METER 105 mg/dL 70-110 : TESTED A T [facility] 6720 (BEAKER) (test code = [place], 1538) [address]: Toolmaker Helper/Techni cory ID = [id number] for Laura Bauman BASIC METABOLIC [id number] 16:24:00 Test Item Value Reference Range Interpretation [...] S NOT APPLICABLE FOR DIALYSIS PATIEN TS. Toolmaker Helper ID - [id number] 16:23:00 Test Item Value Reference Range Interpretation Comments MAGNESIUM (BEAKER) (test code = 1.6 mg/dL 1.6-2.6 627) Toolmaker Helper ID - DBBLOOD GAS, [id number] 16:09:00 Test Item Value Reference Range Interpretation [...] = 1819) 50.0 RAD, ABDOMEN/KUB, 1 VIEW [id number] 12:40:00Reason for exam:->NGT placement [facility]ENTER[facility]: TREV STONE : 1935 [...] MDReport Verified Date/Time: 12/29/2019 12:40:58 Reading Location: [address] Body Reading Room B-TYPE NATRIURETIC FACTOR (BNP)2019-12-29 11:35:00 Test Item Value Reference Range Interpretation Comments B-TYPE NATRIURETIC PEPTIDE (BEAKER) 193 pg/mL 0-100 H (test code = 700) Toolmaker Helper ID - SUHA CLACTIC ACID, [id number] 11:25:00 Test Item Value Reference Range Interpretation Comments LACTATE BLOOD ARTERIAL (2) 3.3 mmol/L 0.5-2.2 H (BEAKER) (test code = 2874) Toolmaker Helper ID - SUHA CLACTIC ACID, [id number] 07:06:00 Test Item Value Reference Range Interpretation Comments LACTATE BLOOD VENOUS 3.49 mmol/L 0.50-2.20 H Specime n slightly (2) (BEAKER) (test hemolyzed code = 2872) Toolmaker Helper ID - EDASIURINALYSIS W/ REFLEX URINE [id number] 06:56:00 Test Item Value Reference Range Interpretation [...] Many 1585) SOURCE(BEAKER) (test code = 2795) Toolmaker Helper ID - [auto]Toolmaker Helper ID - techPROTHROMBIN TIME/[id number] 06:54:00 Test Item Value Reference Range Interpretation [...] is 2.5-3.5 for patients wiht mechanical heart valves.[id number] 06:54:00 Test Item Value Reference Range Interpretation Comments PARTIAL THROMBOPLASTIN TIME 30.3 seconds 22.5-36.0 (BEAKER) (test code = 760) RAD, CHEST, 1 VIEW, NON [id number] 06:51:00Reason for exam:->ETT placementShould this be performed at the bedside?->Yes [facility] CENTER[facility]: TREV STONE : 1935 Sex: MFINAL REPORT CLINICAL INDICATION: Endotracheal tube positioning Comparison: 12/29/2019 The tip of an endotracheal tube is above the kira at the level of the inferior clavicular heads. The cardiomediastinal contours are stable. Central pulmonary vascular congestion and bilateral parenchymal and pleural opacities are unchanged. There is no pneumothorax. Signed: Gerry Sinha [facility] Verified Date/Time: 12/29/2019 06:51:17 TSH/FREE T4 IF [id number] 06:47:00 Test Item Value Reference Range Interpretation Comments THYROID STIMULATING HORMONE 1.830 uIU/mL 0.350-4.940 (DAVE) (test code = 772) Toolmaker Helper ID - EDASITROPONIN [id number] 06:40:00 Test Item Value Reference Range Interpretation [...] failure, acidosis, acute neurological disease, and persistent tachyarrhythmia.Toolmaker Helper ID - WENDIERANI [id number] 06:36:00 Test Item Value Reference Range Interpretation [...] failure, acidosis, acute neurological disease, and persistent tachyarrhythmia.Toolmaker Helper ID - EDASICBC W/PLT COUNT & AUTO [id number] 04:56:00 Test Item Value Reference Range Interpretation [...] PERCENT (BEAKER) (test code = 2801) TROPONIN [id number] 04:43:00 Test Item Value Reference Range Interpretation [...] failure, acidosis, acute neurological disease, and persistent tachyarrhythmia.Toolmaker Helper ID - EDASICOMPREHENSIVE METABOLIC [id number] 04:37:00 Test Item Value Reference Range Interpretation [...] S NOT APPLICABLE FOR DIALYSIS PATIEN TS. Toolmaker Helper ID - [id number] 04:37:00 Test Item Value Reference Range Interpretation Comments MAGNESIUM (BEAKER) (test code = 1.7 mg/dL 1.6-2.6 627) Toolmaker Helper ID - [id number] 04:37:00 Test Item Value Reference Range Interpretation Comments PHOSPHORUS (BEAKER) (test code = 3.7 mg/dL 2.3-4.7 604) Toolmaker Helper ID - ETHANRAD, CHEST, 1 VIEW, NON [id number] 04:27:00Reason for exam:->ETT positionShould this be performed at the bedside?->Yes [facility] : 1935 Sex: MFINAL REPORT CLINICAL INDICATION: Support lines. Comparison: 12/28/2019 The tip of an endotracheal tube is in good position above the kira at the level of the midclavicular heads.The cardiomediastinal contours are stable. Bilateral parenchymal and pleural opacities are unchanged. There is no pneumothorax. Signed: Gerry Sinha MDReport Verified Date/Time: 12/29/2019 04:27:00 -COV2/RT-PCR ([facility])2019-12-29 04:15:00 Test Item Value Reference Range Interpretation Comments SARS-COV2/RT-PCR (test Negative Not Detected, Negative, code = 3979782) See external report for linked test SARS-COV-2 PERFORMING LAB [facility] (test code = 4165207) Negative result for this test determines that [...] of the Act.Fact Sheet for Healthcare Prov iders:https://www.E[employer]ala/sites/default/files/product/documents/Fact_Sheet_HC _Pgnatlvvj_Afib_DFHB-AuZ-5.pdfFact Sheet for Healthcare Patients:https://www.[employer]/sites/default/files/product/docume nts/Iphu_Pugwt_Vjarxubu_Wbhc_MKRN-UpY-9.pdfPerforming Laboratory:[address], [place] [address]ZUJI-VAQIG GASES, [id number] 04:14:00 Test Item Value Reference Range Interpretation [...] EXCESS, -1.0 meq/L -2.0-3.0 : TESTED AT [place] [address] ARTERIAL-POC [facility], (BEAKER) (test code 779[address]: = 1841) Toolmaker Helper/Techni cory ID = [id number] for DONNELL AVILES [id number] 04:14:00 Test Item Value Reference Range Interpretation Comments POC-SODIUM (BEAKER) 141 meq/L 135-148 : TESTED AT [place] [address] (test code = 1542) [facility] [place], [address]: Toolmaker Helper/Techni cory ID = [id number] for DONNELL GERMAIN [id number] 04:14:00 Test Item Value Reference Range Interpretation Comments POC-POTASSIUM 3.6 meq/L 3.6-5.5 : TESTED AT [place] [address] ([facility]) (test code [facility], = 1540) [address]: Toolmaker Helper/Techni cory ID = [id number] for DONNELL GERMAIN [id number] 04:14:00 Test Item Value Reference Range Interpretation Comments POC-HEMOGLOBIN 16.3 g/dL 13.0-16.8 : TESTED AT [place] [address] ([facility]) (test code [facility], = 1856) [address]: Toolmaker Helper/Techni cory ID = [id number] for DONNELL GERMAIN [id number] 04:14:00 Test Item Value Reference Range Interpretation Comments POC-HEMATOCRIT 48 % 40-50 : Toolmaker Helper/Te chnician ID = ([facility]) (test code = 192528 for DONNELL GERMAIN 1857) POCT-CALCIUM [id number] 04:14:00 Test Item Value Reference Range Interpretation Comments POC-CALCIUM IONIZED 1.18 mmol/L 1.12-1.27 : TESTED AT [facility] ([facility]) (test code = [address] [facility] 1536) [place], [address]: Toolmaker Helper/Techni cory ID = [id number] for DONNELL GERMAIN [id number] 04:14:00 Test Item Value Reference Range Interpretation Comments POC-GLUCOSE ([facility]) 145 mg/dL 70-110 H : TESTE D AT [place] [address] (test code = 1855) [place] [place], [address]: Toolmaker Helper/Techni cory ID = [id number] for DONNELL GERMAIN CBC W/PLT COUNT & AUTO [id number] 23:29:00 Test Item Value Reference Range Interpretation Comments WHITE BLOOD CELL COUNT ([facility]) 13.1 K/ L 3.5-10.5 H [...] (BEAKER) (test code = 2801) BASIC METABOLIC [id number] 23:07:00 Test Item Value Reference Range Interpretation [...] S NOT APPLICABLE FOR DIALYSIS PATIEN TS. Toolmaker Helper ID - DBRAD, CHEST, 1 VIEW, NON [id number] 22:49:00Reason for exam:->pre-anesthesiaShould this be performed at the bedside?->Yes [facility] : 1935 Sex: MFINAL REPORT [...] MDReport Verified Date/Time: 12/28/2019 22:49:33 Reading Location: [address] Reading Room COMP. METABOLIC PANEL (51913)2019-09-02 11:55:00 Test Item Value Reference Range Interpretation Comments NA (test code = 139 mmol/L 135-145 5441917836) K (test code = 4.1 mmol/L 3.5-5 1626092012) CL (test code = 104 mmol/L 98-108 7904657989) CO2 TOTAL (test code = 29 mmol/L 23-31 2561946773) AGAP (test code = 2-16 9899401822) BUN (test code = 21 mg/dL 7-23 8680816871) GLUCOSE (test code = 99 mg/dL 70-110 2555370124) CREATININE (test code 0.86 mg/dL 0.6-1.25 = 2969200790) TOTAL BILI (test code 0.7 mg/dL 0.1-1.1 = 2724268429) CALCIUM (test code = 9.3 mg/dL 8.6-10.6 9144862091) T PROTEIN (test code = 7.2 g/dL 6.3-8.2 7084405972) ALBUMIN (test code = 4.2 g/dL 3.5-5 8546659263) ALK PHOS (test code = 75 U/L 34-122 3432718554) ALTv (test code = 28 U/L 5-50 1742-6) AST(SGOT) (test code = 33 U/L 13-40 1975911136) eGFR Calculation mL/min/1.73m2 (Non-) (test code = 0816275425) eGFR Calculation mL/min/1.73m2 () (test code = 0430724365) JETT (test code = JETT) Association of [...] abnormalities in imaging tests). [facility] [id number] 11:53:00 Test Item Value Reference Range Interpretation Comments APPEARANCE (test code = Clear Clear 7568877028) COLOR (test code = Yellow Yellow 0107130879) PH (test code = 4.8-8.0 4322190377) SP GRAVITY (test code = 1.003-1.030 8593231969) GLU U QUAL (test code = Normal Normal 5461692862) BLOOD (test code = 1+ Negative A 8954590450) KETONES (test code = Negative Negative 9919588821) PROTEIN (test code = Negative Negative 2887-8) UROBILIN (test code = Normal Normal 3434046650) BILIRUBIN (test code = Negative Negative 2181240925) NITRITE (test code = Negative Negative 5750835504) LEUK ROLAN (test code = 75/uL Negative A 2216397969) RBC/HPF (test code = See_Comment H [Autom ated message] 2529864976) The system Meetyl generated this result transmitted ref erence range: 0 - 3 HP F. The reference range was not used to int erpret this result as normal/abnormal . WBC/HPF (test code = See_Comment H [Autom ated message] 1434326096) The system Meetyl generated this result transmitted ref erence range: 0 - 5 HP F. The reference range was not used to int erpret this result as normal/abnormal . BACTERIA (test code = Few Negative A 3349775348) MUCOUS (test code = Slight Negative LPF A 4148365602) SQ EPITH (test code = <1 HPF 3925510869) TRANS EPI (test code = <1 See_Comment [Aut omated message] 2687592278) The system Meetyl generated this result transmitted ref erence range: <=1 HPF. The reference range was not used to int erpret this result as normal/abnormal . NOE EPITH (test code = <1 See_Comment [Aut omated message] 9527135873) The system Meetyl generated this result transmitted ref erence range: <=1 HPF. The reference range was not used to int erpret this result as normal/abnormal . Lab Interpretation (test Abnormal code = 77991-6) [facility] WITH [id number] 11:52:00 Test Item Value Reference Range Interpretation Comments WBC (test code = See_Comment [Automated message] 6690-2) The system Meetyl generated this result transmitted ref erence range: 4.20 - 1 0.70 10*3/?L. The re ference range was not u sed to interpret this result as normal/abnor mal. RBC (test code = See_Comment [Automated message] 789-8) The system Meetyl generated this result transmitted ref erence range: [...] RDW-SD (test code 41.1 fL 38.5-51.6 = 16212-8) RDW-CV (test code 12.1 % 12.1-15.4 = 788-0) PLT (test code = See_Comment [Automated message] 777-3) The system whic h generated this result transmitted ref erence range: 150 - 32 8 10*3/?L. The re ference range was not u sed to interpret this result as normal/abnor mal. MPV (test code = 10.8 fL 9.8-13 11805-2) NRBC/100 WBC (test See_Comment [Automat ed message] code = 1009322189) The syste m which generated this result transmitted ref erence range: 0.0 - 10 .0 /100 WBCs. The refer ence range was not u sed to interpret this result as normal/abnor mal. NRBC x10^3 (test <0.01 See_Comment [Automated message] code = 5057686592) The syste m which generated this result transmitted ref erence range: 10*3/?L. The reference range was not used to interpr et this result as normal/abnormal . GRAN MAT (NEUT) % 44.8 % (test code = 770-8) IMM GRAN % (test 0.40 % code = 1962613188) LYMPH % (test code 42.0 % = 736-9) MONO % (test code 6.9 % = 5905-5) EOS % (test code = 5.0 % 713-8) BASO % (test code 0.9 % = 706-2) GRAN MAT 3.14 10*3/uL 1.99-6.95 x10^3(ANC) (test code = 7700396509) IMM GRAN x10^3 0.03 10*3/uL 0-0.06 (test code = 1052198154) LYMPH x10^3 (test 2.94 10*3/uL 1.09-3.23 code = 731-0) MONO x10^3 (test 0.48 10*3/uL 0.36-1.02 code = 742-7) EOS x10^3 (test 0.35 10*3/uL 0.06-0.53 code = 711-2) BASO x10^3 (test 0.06 10*3/uL 0.01-0.09 code = 704-7) [facility] URINALYSIS, [id number] 17:34:00 Test Item Value Reference Range Interpretation [...] 3267) Lab Interpretation (test code Normal = 67816-7) [facility] URINALYSIS, [id number] 17:34:00 Test Item Value Reference Range Interpretation [...] 3267) Lab Interpretation (test code Normal = 04500-2) [facility] URINALYSIS, [id number] 17:09:00 Test Item Value Reference Range Interpretation [...] U APPEAR (test code = clear 3267) [facility] URINALYSIS, [id number] 17:09:00 Test Item Value Reference Range Interpretation [...] 3261) POCT U BLD (test code = 2617) negative Negative - Negative POCT U COLOR (test code = yellow 5546) POCT U APPEAR (test code = clear 5770) [facility]"
[2022-07-12 19:06] LABS: Absolute Lymphocytes (CBC) 4.2 K/uL (0.7-4.9); Hematocrit 39.9 % (39.6-49.0); Lymphocytes % 44.8 % (15.3-44.8); MCV 90.2 fL (80-100); MPV 8.8 fL (7.6-11.3); RBC Red Blood Cell Count 4.42 M/uL (4.33-5.43)
[2022-07-12 19:14] LABS: Protime INR 3.65
[2022-07-12 19:27] LABS: Albumin 3.3 g/dL (3.4-5.0); Bilirubin Direct 0.2 mg/dL (0-0.2); Bilirubin Total 0.8 mg/dL (0.2-1.0); Magnesium 2.2 mg/dL (1.6-2.4); Potassium 3.4 mEq/L (3.5-5.1); Protein, Total 6.9 g/dL (6.4-8.2); Troponin High Sensitivity 6.4 pg/mL (<58.9)
[2022-07-12] MEDS ORDERED: FAMOTIDINE 20 MG/2 ML VIAL IV ONE (19:32)
[2022-07-12] MEDS ORDERED: NA CHLORIDE 0.9% 1,000 ML ONE (19:32)
[2022-07-12] MEDS ORDERED: ASPIRIN 81 MG CHEWABLE TABLET ONE (19:32)
--- NOTE | 2022-07-12 20:00 | ER ---
Nurse's Notes [facility] Name: Rusty Yarbrough Age: 87 yrs Sex: Male : 1935 Arrival Date: 07/12/2022 Time: 18:34 Bed 20 Private MD: Shawn Perry E Diagnosis: Chest pain, unspecified;prison (current) use of anticoagulants Presentation: 07/12 18:47 Chief complaint: Patient's son or daughter states: sharp, shooting chest pain that kc6 comes and goes x2 hours. Coronavirus screen: Vaccine status: Patient reports receiving the 2nd dose of the covid vaccine. At this time, the client does not indicate any symptoms associated with coronavirus-19. Ebola Screen: No symptoms or risks identified at this time. Initial Sepsis Screen: Does the patient meet any 2 criteria? No. Patient's initial sepsis screen is negative. Does the patient have a suspected source of infection? No. Patient's initial sepsis screen is negative. Risk Assessment: Do you want to hurt yourself or someone else? Patient reports no desire to harm self or others. Onset of symptoms was July 12, 2022. 18:47 Method Of Arrival: Wheelchair kc6 18:47 Acuity: GAYLE 3 kc6 Triage Assessment: 18:48 General: Appears in no apparent distress. comfortable, Behavior is calm, cooperative, kc6 appropriate for age. Pain: Complains of pain in chest. EENT: No signs and/or symptoms were reported regarding the EENT system. Neuro: Walsh Agitation-Sedation Scale (RASS): 0 - Alert and Calm Level of Consciousness is awake, alert, obeys commands, Oriented to person, place, time, situation, Appropriate for age. Cardiovascular: Heart tones S1 S2 present Capillary refill < 3 seconds. Respiratory: Airway is patent Trachea midline Respiratory effort is even, unlabored, Respiratory pattern is regular, symmetrical. GI: No signs and/or symptoms were reported involving the gastrointestinal system. : No signs and/or symptoms were reported regarding the genitourinary system. Derm: No signs and/or symptoms reported regarding the dermatologic system. Skin is intact, Skin is pink, warm \\T\\ dry. Musculoskeletal: No signs and/or symptoms reported regarding the musculoskeletal system. Circulation, motion, and sensation intact. Capillary refill < 3 seconds, Range of motion: intact in all extremities. Historical: - Allergies: 18:48 Benadryl; kc6 18:48 Enalapril; kc6 - PMHx: 18:48 "heart valve replacement"; Aortic Stenosis; Ataxia; acute, resolved now; bleeding kc6 ulcers; CAD; Cerebrovascular accident; COPD; dyspnea; fatigue; Hyperlipidemia; Hypertension; Hypertensive disorder; Hypokalemia; melena; Myocardial infarction; syncope; Tachycardia; TIA; Vertigo; - Immunization history:: Client reports receiving the 2nd dose of the Covid vaccine, Flu vaccine is not up to date. - Social history:: Smoking status: Patient denies any tobacco usage or history of. - Family history:: not pertinent. Screenin:59 [facility] ED Fall Risk Assessment (Adult) History of falling in the last 3 months, kc6 including since admission No falls in past 3 months (0 pts) Confusion or Disorientation No (0 pts) Intoxicated or Sedated No (0 pts) Impaired Gait No (0 pts) Mobility Assist Device Used No (0 pt) Altered Elimination No (0 pt) Score/Fall Risk Level 0 - 2 = Low Risk Oriented to surroundings, Maintained a safe environment, Educated pt \\T\\ family on fall prevention, incl call for assistance when getting out of bed, Assessed \\T\\ reinforced patient's understanding of fall precautions, Hourly rounding (assess needs \\T\\ fall precautionary measures) done. Abuse screen: Denies threats or abuse. Denies injuries from another. Nutritional screening: No deficits noted. Tuberculosis screening: No symptoms or risk factors identified. Assessment: 19:24 General: Appears in no apparent distress. comfortable, Behavior is calm, cooperative, jj7 appropriate for age. Pain: Complains of pain in chest Pain does not radiate. Pain currently is 0 out of 10 on a pain scale. Pain began 2 hours ago. Vital Signs: 18:47 Weight 90.72 kg (R); Height 5 ft. 10 in. (R); kc6 19:30 BP 146 / 68; Pulse 73; Resp 21; Pulse Ox 100% ; jj7 20:30 BP 139 / 79; Pulse 74; Resp 15; Pulse Ox 100% ; jj7 20:30 BP 139 / 95; Pulse 70; Resp 18; Pulse Ox 97% ; jj7 18:47 Body Mass Index 28.70 (90.72 kg, 177.8 cm) kc6 ED Course: 18:35 Patient arrived in ED. am2 18:35 Shawn Perry MD is Private Physician. am2 18:39 Sathish Mckeon MD is Attending Physician. mukesh 18:42 Marysol Cabello, HENRRY is Primary Nurse. kc6 18:48 Triage completed. kc6 18:48 Arm band placed on. kc6 18:59 Patient has correct armband on for positive identification. Placed in gown. Bed in low kc6 position. Call light in reach. Side rails up X 1. Adult w/ patient. Client placed on continuous cardiac and pulse oximetry monitoring. NIBP monitoring applied. administration internship on. 18:59 Inserted saline lock: 20 gauge in right antecubital area, using aseptic technique. kc6 Blood collected. Patient maintains SpO2 saturation greater than 95% on room air. 19:42 XRAY Chest (1 view) In Process Unspecified. EDMS 19:56 Terry Lewis MD is Hospitalizing Provider. mukesh 21:36 No provider procedures requiring assistance completed. Patient admitted, IV remains in jj7 place. Administered Medications: 19:55 Discontinued: NS 0.9% IV 1000 ml IV at 125 ml/hr continuous mukesh 18:40 CANCELLED (Duplicate Order): NS 0.9% IV 1000 ml IV at 125 ml/hr continuous mukesh 19:30 Drug: NS 0.9% IV 1000 ml Route: IV; Rate: 125 ml/hr; Site: right antecubital; jj7 19:30 Drug: Aspirin PO Chewable Tablet 81 mg Route: PO; jj7 19:30 Drug: Famotidine IVP 20 mg Route: IVP; Site: right antecubital; jj7 Medication: 19:24 VIS not applicable for this client. jj7 Outcome: 20:00 Decision to Hospitalize by Provider. mukesh 21:36 Admitted to Med/surg accompanied by tech, via wheelchair, Report called to JOSY beverly RN\\T\\[id number] 21:36 Condition: improved 22:15 Patient left the ED. as6 Signatures: Dispatcher [employer] EDMI Sathish Mckeon MD MD cha Moreno, Amanda am2 Julián Villegas RN RN as6 Marysol Cabello RN RN kc6 Ilya, Juwairiyah, RN RN jj7
--- NOTE | 2022-07-12 20:01 | EDPHYS ---
Physician Documentation [facility] Name: Rusty Yarbrough Age: 87 yrs Sex: Male : 1935 Arrival Date: 07/12/2022 Time: 18:34 Bed 20 Private MD: Shawn Perry E ED Physician Sathish Mckeon HPI: 07/12 18:54 This 87 yrs old Male presents to ER via Wheelchair with complaints of Chest mukesh Pain. 18:54 The patient or guardian reports chest pain that is located primarily in the substernal mukesh area. Onset: just prior to arrival. The pain does not radiate. Associated signs and symptoms: The patient has no apparent associated signs or symptoms. The chest pain is described as sharp. Duration: The patient or guardian reports a single episode, that is now resolved. Modifying factors: The symptoms are alleviated by nothing. the symptoms are aggravated by nothing. Severity of pain: At its worst the pain was mild in the emergency department the pain is unchanged. The patient has not experienced similar symptoms in the past. Historical: - Allergies: 18:48 Benadryl; kc6 18:48 Enalapril; kc6 - PMHx: 18:48 "heart valve replacement"; Aortic Stenosis; Ataxia; acute, resolved now; bleeding kc6 ulcers; CAD; Cerebrovascular accident; COPD; dyspnea; fatigue; Hyperlipidemia; Hypertension; Hypertensive disorder; Hypokalemia; melena; Myocardial infarction; syncope; Tachycardia; TIA; Vertigo; - Immunization history:: Client reports receiving the 2nd dose of the Covid vaccine, Flu vaccine is not up to date. - Social history:: Smoking status: Patient denies any tobacco usage or history of. - Family history:: not pertinent. ROS: 18:55 Constitutional: Negative for fever, chills, and weight loss, Eyes: Negative for injury, mukesh pain, redness, and discharge, ENT: Negative for injury, pain, and discharge, Neck: Negative for injury, pain, and swelling, Respiratory: Negative for shortness of breath, cough, wheezing, and pleuritic chest pain, Abdomen/GI: Negative for abdominal pain, nausea, vomiting, diarrhea, and constipation, Back: Negative for injury and pain, : Negative for injury, bleeding, discharge, and swelling, MS/Extremity: Negative for injury and deformity, Skin: Negative for injury, rash, and discoloration, Neuro: Negative for headache, weakness, numbness, tingling, and seizure, Psych: Negative for depression, anxiety, suicide ideation, homicidal ideation, and hallucinations, Allergy/Immunology: Negative for hives, rash, and allergies, Endocrine: Negative for neck swelling, polydipsia, polyuria, polyphagia, and marked weight changes, Hematologic/Lymphatic: Negative for swollen nodes, abnormal bleeding, and unusual bruising. 18:55 Cardiovascular: Positive for chest pain, of the chest. 18:55 MS/extremity: Negative for acute changes. Exam: 18:55 Constitutional: This is a well developed, well nourished patient who is awake, alert, mukesh and in no acute distress. Head/Face: Normocephalic, atraumatic. Eyes: Pupils equal round and reactive to light, extra-ocular motions intact. Lids and lashes normal. Conjunctiva and sclera are non-icteric and not injected. Cornea within normal limits. Periorbital areas with no swelling, redness, or edema. ENT: Nares patent. No nasal discharge, no septal abnormalities noted. Tympanic membranes are normal and external auditory canals are clear. Oropharynx with no redness, swelling, or masses, exudates, or evidence of obstruction, uvula midline. Mucous membranes moist. Neck: Trachea midline, no thyromegaly or masses palpated, and no cervical lymphadenopathy. Supple, full range of motion without nuchal rigidity, or vertebral point tenderness. No Meningismus. Chest/axilla: Normal chest wall appearance and motion. Nontender with no deformity. No lesions are appreciated. Cardiovascular: Regular rate and rhythm with a normal S1 and S2. No gallops, murmurs, or rubs. Normal PMI, no JVD. No pulse deficits. Respiratory: Lungs have equal breath sounds bilaterally, clear to auscultation and percussion. No rales, rhonchi or wheezes noted. No increased work of breathing, no retractions or nasal flaring. Abdomen/GI: Soft, non-tender, with normal bowel sounds. No distension or tympany. No guarding or rebound. No evidence of tenderness throughout. Back: No spinal tenderness. No costovertebral tenderness. Full range of motion. Male : Normal genitalia with no discharge or lesions. Skin: Warm, dry with normal turgor. Normal color with no rashes, no lesions, and no evidence of cellulitis. MS/ Extremity: Pulses equal, no cyanosis. Neurovascular intact. Full, normal range of motion. Neuro: Awake and alert, GCS 15, oriented to person, place, time, and situation. Cranial nerves II-XII grossly intact. Motor strength 5/5 in all extremities. Sensory grossly intact. Cerebellar exam normal. Normal gait. Psych: Awake, alert, with orientation to person, place and time. Behavior, mood, and affect are within normal limits. 18:55 ECG was reviewed by the Attending Physician. Vital Signs: 18:47 Weight 90.72 kg (R); Height 5 ft. 10 in. (R); kc6 19:30 BP 146 / 68; Pulse 73; Resp 21; Pulse Ox 100% ; jj7 20:30 BP 139 / 79; Pulse 74; Resp 15; Pulse Ox 100% ; jj7 20:30 BP 139 / 95; Pulse 70; Resp 18; Pulse Ox 97% ; jj7 18:47 Body Mass Index 28.70 (90.72 kg, 177.8 cm) kc6 MDM: 18:39 Patient medically screened. mukesh 18:57 Differential diagnosis: abnormal EKG, acute myocardial infarction, acute pericarditis, mukesh anxiety, congestive heart failure Cholelithiasis esophagitis, hiatal hernia, pancreatitis, pericarditis, pleurisy, pneumonia, pulmonary embolus, stable angina, unstable angina. HEART Score: ECG: Non specific repolarization disturbance / LBTB / PM (1), Age: > or = 65 years (2). The patient was given aspirin in the Emergency Department. GARIMA Risk Score: 1 - patient's age is greater or equal to 65 years, 1 - Three or more CAD risk factors, 1- Known CAD, TOTAL SCORE = 3. Data reviewed: vital signs, nurses notes, lab test result(s), EKG, radiologic studies, plain films. Consideration of Admission/Observation Patient was admitted/placed on observation. Escalation of care including admission/observation considered. I considered the following discharge prescriptions or medication management in the emergency department Medications were administered in the Emergency Department. See MAR. Test considered but Not performed: Ultrasound no gb usg. Care significantly affected by the following chronic conditions: Hypertension, as, valve replacement. Counseling: I had a detailed discussion with the patient and/or guardian regarding: the historical points, exam findings, and any diagnostic results supporting the discharge/admit diagnosis, lab results, radiology results, the need for further work-up and treatment in the hospital. 07/12 18:40 Order name: Basic Metabolic Panel; Complete Time: 19:54 [facility] 07/12 18:40 Order name: CBC with Diff; Complete Time: 19:54 mukesh 07/12 18:40 Order name: LFT's; Complete Time: 19:54 mukesh 07/12 18:40 Order name: Magnesium; Complete Time: 19:54 mukesh 07/12 18:40 Order name: NT PRO-BNP; Complete Time: 19:54 [facility] 07/12 18:40 Order name: PT-INR; Complete Time: 19:54 [facility] 07/12 18:40 Order name: Troponin HS; Complete Time: 19:54 [facility] 07/12 18:40 Order name: Urinalysis w/ reflexes mukesh 07/12 18:40 Order name: Lipase; Complete Time: 19:54 [facility] 07/12 18:40 Order name: XRAY Chest (1 view); Complete Time: 21:33 [facility] 07/12 18:40 Order name: EKG; Complete Time: 18:41 [facility] 07/12 18:40 Order name: Cardiac monitoring; Complete Time: 18:47 [facility] 07/12 18:40 Order name: EKG - Nurse/Tech; Complete Time: 18:47 [facility] 07/12 18:40 Order name: IV Saline Lock; Complete Time: 18:59 [facility] 07/12 18:40 Order name: Labs collected and sent; Complete Time: 18:59 [facility] 07/12 18:40 Order name: O2 Per Protocol; Complete Time: 18:42 [facility] 07/12 18:40 Order name: O2 Sat Monitoring; Complete Time: 18:42 mukesh EC:55 Rate is 70 beats/min. Rhythm is regular. QRS [place] is Normal. DE interval is normal. QRS mukesh interval is normal. QT interval is normal. T waves are Normal. No ST changes noted. Clinical impression: NSR w/ Non-specific ST/T Changes and No evidence of ischemia. Interpreted by me. Reviewed by me. Administered Medications: 19:55 Discontinued: NS 0.9% IV 1000 ml IV at 125 ml/hr continuous mukesh 18:40 CANCELLED (Duplicate Order): NS 0.9% IV 1000 ml IV at 125 ml/hr continuous mukesh 19:30 Drug: NS 0.9% IV 1000 ml Route: IV; Rate: 125 ml/hr; Site: right antecubital; jj7 19:30 Drug: Aspirin PO Chewable Tablet 81 mg Route: PO; jj7 19:30 Drug: Famotidine IVP 20 mg Route: IVP; Site: right antecubital; jj7 Disposition Summary: 07/12/22 20:00 Hospitalization Ordered Hospitalization Status: Observation mukesh Provider: Terry Lewis cha Location: Telemetry/MedSurg (observation) mukesh Condition: Stable mukesh Problem: new mukesh Symptoms: have improved mukesh Bed/Room Type: Standard mukesh Room Assignment: 219(07/12/22 20:19) mw Diagnosis - Chest pain, unspecified mukesh - [facility] (current) use of anticoagulants mukesh Forms: - Medication Reconciliation Form mukesh - SBAR form mukesh Signatures: Dispatcher [employer] EDKim Jin RN RN mw Anderson, Corey, MD MD cha Attema, Lee, CDL TEAM TRUCK DRIVER-C CDL TEAM TRUCK DRIVER-Cla1 Marysol Cabello RN RN kc6 Hi Caraballo RN RN jj7 Corrections: (The following items were deleted from the chart) 18:40 18:40 NS 0.9% IV 1000 ml IV at 125 ml/hr continuous ordered. mukesh mukesh 20:19 20:00 mukesh mw
--- NOTE | 2022-07-12 20:24 | P.HP ---
Certification for Inpatient Patient admitted to: Observation With expected LOS: <2 Midnights Patient will require the following post-hospital care: None Practitioner: I am a practitioner with admitting privileges, knowledge of patient current condition, hospital course, and medical plan of care. Services: Services provided to patient in accordance with Admission requirements found in Title 42 Section 412.3 of the Code of Federal Regulations Patient History Date of Service: 07/12/22 Reason for admission: Chest pain History of Present Illness: 87-year-old male with history of aortic valve replacement on chronic warfarin, hypertension, previous CVA, COPD, hypertension, hyperlipidemia presents the emergency department with chief complaint of chest pain. He reports the pain began today and is intermittent in nature located in the left anterior chest wall, lasted for a few seconds at a time described as sharp and nonradiating. Denies associated shortness of breath. He was evaluated in the emergency department his initial high-sensitivity opponent was negative EKG negative for STEMI criteria labs significant for elevated INR 3.65. ED provider wishes to admit under observation for ACS rule out. Allergies enalapril [Enalapril] Allergy (Mild, Verified 04/13/22 11:44) Itching/Hives/Rash diphenhydramine HCl [From Benadryl] Allergy (Verified 04/13/22 11:44) Unknown Home Medications: Atorvastatin Calcium [Lipitor*] 20 mg PO BEDTIME 12/01/21 Warfarin Sodium 5 mg PO DAILY 12/01/21 Amlodipine Besylate 5 mg PO DAILY 04/13/22 Tamsulosin HCl 0.4 mg PO DAILY 04/13/22 Ciprofloxacin HCl [Cipro] 500 mg PO BID #20 04/27/22 Ciprofloxacin HCl [Cipro] 500 mg PO BID #20 tab 04/27/22 Codeine/APAP [Tylenol #3*] 1 tab PO Q6H PRN #12 tab 04/27/22 - Past Medical/Surgical History Diabetic: No -: Hyperlipidemia -: CAD with prior CABG -: COPD -: PROSTATE CA -: History CVA, TIA -: Severe aortic stenosis with history of bioprosthetic valve -: Religious -: HTN -: [place] -: GI Ulcer with bleeding -: CABG -: C-Spine disc surgery -: Asthma -: Bioprosthetic valve replacement, aorta Psychosocial/ Personal History: Patient has children. - Family History Father -: Lung disease, Stroke Notes: passed in 89 from stroke - Social History Smoking Status: Never smoker Alcohol use: No CD- Drugs: No Caffeine use: Yes Place of Residence: Home Review of Systems 10-point ROS is otherwise unremarkable Cardiovascular: Chest Pain Physical Examination - Physical Exam General: Alert, In no apparent distress, Oriented x3 HEENT: Atraumatic, PERRLA, Mucous membr. moist/pink, EOMI, Sclerae nonicteric Neck: Supple, 2+ carotid pulse no bruit, No LAD, Without JVD or thyroid abnormality Respiratory: Clear to auscultation bilaterally, Normal air movement Cardiovascular: Regular rate/rhythm, Edema (Trace edema lower extremities), Systolic murmur Capillary refill: <2 Seconds Gastrointestinal: Normal bowel sounds, No tenderness Musculoskeletal: No tenderness Integumentary: No rashes Neurological: Normal speech, Normal strength at 5/5 x4 extr, Normal tone, Normal affect - Studies Laboratory Data (last 24 hrs) 07/12/22 18:56: PT 40.2 H, INR 3.65 07/12/22 18:56: WBC 9.30, Hgb 13.3 L, Hct 39.9, Plt Count 179 07/12/22 18:56: Sodium 137, Potassium 3.4 L, BUN 24 H, Creatinine 1.13, Glucose 158 H, Magnesium 2.2, Total Bilirubin 0.8, AST 13 L, ALT 19, Alkaline Phosphatase 89, Lipase 50 Assessment and Plan - Plan Assessment: Chest pain rule out ACShistory CAD with CABG and aortic valve replacement-on chronic anticoagulation Hypertension Hyperlipidemia Previous CVA Plan: Chest pain rule out ACShistory CAD with CABG and aortic valve replacement-on chronic anticoagulation Chest pain lasts for a few seconds, described as sharp nonradiating. Denies shortness of breath. Will trend cardiac enzymes, obtain cardiology consult and echocardiogram. INR mildly supratherapeutic 3.65, will repeat INR tomorrow, patient unsure of home dose of warfarin at this time will need to verify. Hypertension Continue amlodipine once dose is confirmed Hyperlipidemia Continue atorvastatin once dose is confirmed Previous CVA DVT PPX: Continue warfarin Code status: Full Discharge Plan: Home Plan to discharge in: 24 Hours - Advance Directives Does patient have a Living Will: No Does patient have a Durable POA for Healthcare: No - Code Status/Comfort Care Code Status Assessed: Yes (Full code) Critical Care: No Time Spent Managing Pts Care (In Minutes): 55
--- NOTE | 2022-07-12 21:11 | RAD REPORT ---
EXAM DESCRIPTION: RADChest Single View07/12/2022 7:40 pm CLINICAL HISTORY: CHEST PAIN COMPARISON: Chest Pa And Lat (2 Views) dated 04/13/2022; Chest Single View dated 07/20/2020; Chest Sing le View dated 08/08/2018; Chest Single View dated 03/12/2018; Abdomen Pelvis W Contrast dated 2 TECHNIQUE: Portable AP view of the chest. FINDINGS: The lungs are clear. Calcified pleural plaque most pronounced along the peripheral left izaiah ng, stable. No pneumothorax or effusion. The cardiomediastinal contours are stable, with sequelae of median sternotomy again seen. . IMPRESSION: No acute cardiopulmonary process.
[2022-07-12] MEDS ORDERED: ONDANSETRON 4 MG/2 ML VIAL IV PRN (22:06)
[2022-07-12 23:51] VITALS: BMI 27.5
[2022-07-13 04:26] LABS: Absolute Lymphocytes (CBC) 4.4 K/uL (0.7-4.9); Hematocrit 39.5 % (39.6-49.0); Lymphocytes % 48.6 % (15.3-44.8); MPV 8.7 fL (7.6-11.3); RBC Red Blood Cell Count 4.39 M/uL (4.33-5.43)
[2022-07-13 05:08] LABS: Potassium 3.6 mEq/L (3.5-5.1); Protime INR 3.99; Troponin High Sensitivity 8.7 pg/mL (<58.9)
[2022-07-13 05:43] VITALS: O2SAT 97
[2022-07-13 06:17] LABS: Blood Morphology Comment NOT SEEN (NOT SEEN); Platelet Estimate ADEQ
--- NOTE | 2022-07-13 07:13 | P.PN ---
Date of Service: 07/13/22 Subjective: Feeling better this morning chest pain has improved, no SOB Reports he'ss had some blurry/double vision recently ROS: 10 point ROS as noted above, otherwise negative Physical Exam: GEN: Alert, oriented, NAD HEENT: Normal conjunctiva, sclera anicteric CV: Regular rate and rhythm, no edema Pulm: Nonlabored respirations on room air ABD: Soft, nontender, nondistended MSK: No joint tenderness Integumentary: No rashes Neuro: Normal speech, normal affect vitals reviewed Problem List: Chest pain rule out ACShistory CAD with CABG and aortic valve replacement-on chronic anticoagulation Hypertension Hyperlipidemia Previous CVA Chest pain rule out ACShistory CAD with CABG and aortic valve replacement-on chronic anticoagulation Chest pain lasts for a few seconds, described as sharp nonradiating. Denies shortness of breath. trend troponins - negative cardiology consult echocardiogram pending Heat CT pending INR mildly supratherapeutic 3.65, will repeat INR tomorrow, patient unsure of home dose of warfarin at this time will need to verify. Hypertension Continue amlodipine once dose is confirmed Hyperlipidemia Continue atorvastatin once dose is confirmed VTE: Warfarin Code: Home Dispo: Full 24hrs
[2022-07-13] MEDS ORDERED: AMLODIPINE 5 MG TAB PO SCH (09:00)
--- NOTE | 2022-07-13 11:02 | RAD REPORT ---
EXAM DESCRIPTION: CT - Head Brain Wo Cont - 07/13/2022 10:18 am CLINICAL HISTORY: double vision, 3 weeks Headache, drowsiness COMPARISON: Head Brain Wo Cont dated 08/08/2018; Head Brain Wo Cont dated 07/30/2016 TECHNIQUE: All CT scans are performed using dose optimization technique as appropriate and may inclu de automated exposure control or mA/KV adjustment according to patient size. FINDINGS: No intracranial hemorrhage, hydrocephalus or extra-axial fluid collection.Moderate general ized brain atrophy is present with moderate periventricular and deep white matter chronic microvascul ar ischemic changes.No areas of brain edema or evidence of midline shift. The paranasal sinuses and mastoids are clear. The calvarium is intact. IMPRESSION: No acute intracranial abnormality.
--- NOTE | 2022-07-13 12:42 | P.DS ---
Admission Date: 07/12/22 Discharge Date: 07/13/22 Disposition: ROUTINE DISCHARGE Discharge Condition: GOOD Reason for Admission: Chest pain Consultations: Cardiology - Dr. Chaparro Brief History of Present Illness: 87-year-old male with history of aortic valve replacement on chronic warfarin, hypertension, previous CVA, COPD, hypertension, hyperlipidemia presents the emergency department with chief complaint of chest pain. He reports the pain began today and is intermittent in nature located in the left anterior chest wall, lasted for a few seconds at a time described as sharp and nonradiating. Denies associated shortness of breath. He was evaluated in the emergency department his initial high-sensitivity opponent was negative EKG negative for STEMI criteria labs significant for elevated INR 3.65. ED provider wishes to admit under observation for ACS rule out. Hospital Course: Problem List: Chest pain; MN ruled out history CAD with CABG and aortic valve replacement-on chronic anticoagulation Hypertension Hyperlipidemia chronic microvascular changes Patient presented with sharp nonradiating chest pain, intermittent in nature, that comes and goes and lasts for a few seconds at a time. In the emergency department, EKG was negative for STEMI criteria, and had an elevated INR of 3.65. Troponins were trended and negative x 3. Cardiology was consulted. During his hospitalization, patient reported that he has been having double vision over the past 3+ weeks. Consider follow up with Opthalmology CT head was negative for any acute/subacute findings. Noted chronic microvascular ischemic changes. Family also reported some increase in memory issues since he was last hospitalized. Given the chronic microvascular ischemic changes, he may have a mild component of vascular dementia. Recommend follow up with Neurology. He was monitored overnight, his symptoms now alleviated, and deemed stable for discharge. Follow up: PCP within 1 week Cardiology Neurology Physical Exam: GEN: Alert, oriented, NAD HEENT: Normal conjunctiva, sclera anicteric, EOMI, PERRL CV: Regular rate and rhythm, no edema, IV/ systolic murmur Pulm: Nonlabored respirations on room air ABD: Soft, nontender, nondistended Neuro: Normal speech, normal affect, CN II-XII grossly intact Vital Signs/Physical Exam: Temp Pulse Resp BP Pulse Ox 97.1 F 71 16 159/83 H 97 07/13/22 08:00 07/13/22 08:23 07/13/22 08:00 07/13/22 08:23 07/13/22 08:00 Laboratory Data at Discharge: WBC 9.00 thou/uL (4.3-10.9) 07/13/22 04:07 Hgb 13.2 g/dL (13.6-17.9) L 07/13/22 04:07 Hct 39.5 % (39.6-49.0) L 07/13/22 04:07 Plt Count 166 thou/uL (152-406) 07/13/22 04:07 PT 43.9 SECONDS (9.5-12.5) H 07/13/22 04:07 INR 3.99 07/13/22 04:07 Sodium 141 mEq/L (136-145) 07/13/22 04:07 Potassium 3.6 mEq/L (3.5-5.1) 07/13/22 04:07 BUN 18 mg/dL (7-18) 07/13/22 04:07 Creatinine 0.84 mg/dL (0.70-1.30) 07/13/22 04:07 Glucose 102 mg/dL (74-106) 07/13/22 04:07 Magnesium 2.2 mg/dL (1.6-2.4) 07/12/22 18:56 Total Bilirubin 0.8 mg/dL (0.2-1.0) 07/12/22 18:56 AST 13 U/L (15-37) L 07/12/22 18:56 ALT 19 U/L (16-61) 07/12/22 18:56 Alkaline Phosphatase 89 U/L (45-117) 07/12/22 18:56 Triglycerides 105 mg/dL (<150) 07/13/22 04:07 Cholesterol 143 mg/dL (<200) 07/13/22 04:07 HDL Cholesterol 41 mg/dL (40-60) 07/13/22 04:07 Cholesterol/HDL Ratio 3.49 07/13/22 04:07 Lipase 50 U/L (13-75) 07/12/22 18:56 Home Medications: Atorvastatin Calcium [Lipitor*] 20 mg PO BEDTIME 12/01/21 Warfarin Sodium 5 mg PO DAILY 12/01/21 Amlodipine Besylate 5 mg PO DAILY 04/13/22 Physician Discharge Instructions: Patient presented with sharp nonradiating chest pain, intermittent in nature, that comes and goes and lasts for a few seconds at a time. In the emergency department, EKG was negative for STEMI criteria, and had an elevated INR of 3.65. Troponins were trended and negative x 3. Cardiology was consulted. During his hospitalization, patient reported that he has been having double vision over the past 3+ weeks. Consider follow up with Opthalmology CT head was negative for any acute/subacute findings. Noted chronic microvascular ischemic changes. Family also reported some increase in memory issues since he was last hospitalized. Given the chronic microvascular ischemic changes, he may have a mild component of vascular dementia. Recommend follow up with Neurology. He was monitored overnight, his symptoms now alleviated, and deemed stable for discharge. Follow up: PCP within 1 week Cardiology Neurology Followup: Ramon Chaparro MD [ACTIVE - CAN ADMIT] - 1-2 Weeks (call to schedule an appointment) Shawn Perry MD [Primary Care Provider] - 1 Week (call to schedule an appointment ) Time spent managing pt's care (in minutes): 45
[2022-07-13 17:05] VITALS: BP 136/78; TEMP 96.5
[2022-07-13] MEDS ORDERED: ATORVASTATIN 20 MG TAB PO SCH (21:00)
--- NOTE | 2022-07-14 10:41 | ECHO ---
HEIGHT: 5 ft 6 in WEIGHT: 170 lb 6.4 oz DATE OF STUDY: 07/13/[address]: Fran Mosquera NP 2-DIMENSIONAL: YES M.MODE: YES DOPPLER: YES COLOR FLOW: YES TDS: YES PORTABLE: YES DEFINITY: NO BUBBLE STUDY: NO DIAGNOSIS: CHEST PAIN, HISTORY OF AORTIC VALVE REPLACEMENT CARDIAC HISTORY: CATHERIZATION: YES SURGERY: YES PROSTHETIC VALVE: YES PACEMAKER: NO MEASUREMENTS (cm) DIASTOLIC (NORMALS) SYSTOLIC (NORMALS) IVSd 1.2 (0.6-1.2) LA Diam 3.6 (1.9-4.0) LVEF 55% LVIDd 5.2 (3.5-5.7) LVIDs 3.7 (2.0-3.5) %FS 28% LVPWd 1.2 (0.6-1.2) Ao Diam 2.4 (2.0-3.7) 2 DIMENSIONAL ASSESSMENT: RIGHT ATRIUM: NORMAL LEFT ATRIUM: NORMAL RIGHT VENTRICLE: NORMAL LEFT VENTRICLE: NORMAL TRICUSPID VALVE: NORMAL MITRAL VALVE: NORMAL PULMONIC VALVE: NORMAL AORTIC VALVE: S/P MECHANICAL AVR PERICARDIAL EFFUSION: NONE AORTIC ROOT: NORMAL LEFT VENTRICULAR WALL MOTION: PARADOXICAL SEPTUM. DOPPLER/COLOR FLOW: MODERATE AORTIC STENOSIS. AORTIC VALVE AREA 1.3 CENTIMETERS SQUARED. COMMENTS: 1. TECHNICALLY DIFFICULT STUDY. 2. MODERATE AORTIC STENOSIS. MECHANICAL AORTIC VALVE AREA 1.3 CENTIMETERS SQUARED. 3. NORMAL LEFT VENTRICULAR EJECTION FRACTION. TECHNOLOGIST: Phillip MCCORMICK
--- NOTE | 2022-07-14 12:44 | CON ---
Date of Consultation: 07/13/2022 Reason For Consultation: Atypical chest pain. History Of Present Illness: Mr. Yarbrough is 87. Came in with diplopia, atypical chest pain, sharp, st abbing. No nausea, vomiting, diaphoresis, PND, orthopnea, pedal edema, palpitations, or syncope. He has had a CT of his head that was negative. He has had a history of aortic valve replacement, bonifacio burnham. He is on Coumadin. He has a history of CAD, peptic ulcer disease, CVA, asthma, hypertension, and dyslipidemia. Allergies: INCLUDE LISINOPRIL AND BENADRYL. Medications: At home include Coumadin, Norvasc, and Lipitor. Review of Systems: Negative. Social History: Negative. Family History: Negative. Physical Examination: Vital Signs: Stable, sinus rhythm. HEENT: Negative. Neck: Supple with no bruit. Chest: Clear. Cardiac: Revealed aortic valve replacement sound that is crisp. No murmurs, gallops, or rubs. Abdomen: Benign. Extremities: Revealed no clubbing, cyanosis. Has trace edema. Diagnostic Data: INR is 3.99. Otherwise, negative. Impression And Plan: 1.Atypical chest pain. 2.History of aortic valve replacement. 3.History of coronary artery disease. 4.History of cerebrovascular accident. 5.Diplopia. Negative CT of his head. His other problems include hypertension, dyslipidemia, and as thma. I certainly see no need for Mr. Yarbrough to have any intensive cardiac workup at this point. I think echocardiogram is pending. We will see what that shows and he can go home. NILS/MACARIO Voice ID: [id number] Report ID: [id number]
--- NOTE | 2022-07-14 16:02 | EKG ---
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
== END 2022-07-13 17:35 | disposition home or self-care (01) ==
LOC: ER 18:34 → ERHOLD 20:22 → 2ND 21:47
PROVIDERS: ADMIT Hospitalist; ATTEND Hospitalist
DX: R07.9 Chest pain, unspecified (principal); I10 Essential (primary) hypertension; E78.5 Hyperlipidemia, unspecified; H53.2 Diplopia; I99.9 Unspecified disorder of circulatory system; Z95.4 Presence of other heart-valve replacement; Z95.1 Presence of aortocoronary bypass graft; Z86.73 Personal history of transient ischemic attack (TIA), and cerebral infarction without residual deficits
CPT/HCPCS: 93306; 85025 ×2; 80048 ×2; 36415; 83735; 85610 ×2; 80061; 80076; 84484 ×3; 83690; 83880; 70450; 71045; 96374; 99285; J7030; 93005; G0378

== ENCOUNTER 2022-08-03 08:33 | Emergency (ER) | payer MEDICARE ==
--- OUTSIDE RECORDS SUMMARY | 2022-08-03 08:45 | XMS REPORT | Continuity of Care Document ---
:1935 Author Organization [facility] t Address [address] [facility] [address] [place] [id number] Care Team Providers Name Role Phone Provider, Unknown Primary Care Physician Unavailable Shawn Perry Attending Clinician Unavailable ZOYA MIRANDA Attending Clinician Unavailable CECILIO MOLINA Attending Clinician Unavailable Carley BOOKER Attending Clinician Unavailable Carley Correia Attending Clinician Doctor Unassigned, [place] Attending Clinician Unavailable DAVID HILL Attending Clinician Unavailable Ruddy GAGE, Queenie [facility] Attending Clinician [phone] Kwadwo GAGE, Yusra Attending Clinician Miguelina GAGE, Oscar Attending Clinician Melita GAGE, David Attending Clinician Juanita GAGE, Eduardo Sandhu Attending Clinician Kory PAC, Marquis Cee Attending Clinician Ajibade_O_AH Attending Clinician Unavailable Joyce GAGE, Robbie Attending Clinician ROBBIE COOK Attending Clinician Unavailable Nurse, Adc Surgery Gu Attending Clinician Unavailable Chico Mccall DO Attending Clinician 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 Attending Clinician , Adc Surg Spec Procedure Attending Clinician Unavailable Ige-Odunuga_J_AH Attending Clinician Unavailable JULIET MILLER Attending Clinician Unavailable LASHON VALLADARES Attending Clinician Unavailable ZOYA MIRANDA Admitting Clinician Unavailable CECILIO MOLINA Admitting Clinician Unavailable Carley BOOKER Admitting Clinician Unavailable YUSRA BURKETT Admitting Clinician Unavailable Daniel_O_AH Admitting Clinician Unavailable FIDELINA FAROOQ Admitting Clinician Unavailable Ige-Odunuga_J_AH Admitting Clinician Unavailable Payers Payer Name Policy Type Policy Number Effective Date Expiration Date S [facility] [id number] 2018 CLASSIC/VALUE 00:00:00 AARP/MEDICARE [id number] 2015 COMPLETE 00:00:00 [employer] MEDICARE ADV [id number] 2019 00:00:00 [facility] HE[facility] [id number] 2021 (MEDICARE 00:00:00 REPLACEMENT HMO) [employer] HEALTH [id number] 2021 MEDICARE ADVANTAGE 00:00:00 [facility] [id number] [place] (MEDICARE 00:00:00 REPLACEMENT/ADVANTA GE - HMO) [place] PLUS [id number] 2020 MEDICARE/HMO 00:00:00 TAWNY RENEE [id number] 2015 [facility] 00:00:00 MEDICARE PART A \\T\\ [id number] 2015 B - MEDICARE 00:00:00 Problems Condition [...] Overactive Problem Active [facility] bladder Bladder 12 Family 00:00: Practic 00 e Hyperlipid Hyperlipid Problem Active [facility] emia emia -04 Family 00:00: Practic 00 e Hypertensi Hypertensi Problem Active [facility] ve ve 1-04 Family disorder Disorder 00:00: Practi c 00 e 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 00:00: Practic block Block 00 e Cardiac Cardiac Problem Active [facility] arrhythmia Arrhythmia 1-04 [facility] 00:00: Practic 00 e Cerebrovas Cerebrovas Problem Active [facility] cular cular 1-04 Family accident Accident 00:00: Practi c 00 e Asthma Asthma Problem Active [place] 1-04 Family 00:00: Practic 00 e 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 S/p TAVR S/p TAVR Disease Active 2015-03 [...] HI [facility] Jehov[facility] 1-15 [facility] Witness Witness 00:00: Medical 00 Center Chest pain Chest pain Disease Active Overview : Univers 2 Formattin ity of 00:00: g of this note Medical might be Branch different from the original. ICD10 Diagnosis Term Manuscript Reader Utility Other Other Disease Active Univers secondary secondary 04-09 ity of hypertensi hypertens[place] 00:[place] on, benign on, benign 00 Me dical Branch Obstructiv Obstructiv Disease Active Overview : Univers e sleep e sleep 04-09 Formattin ity o f apnea apnea 00:00: g of this [place] note Medical might be Branch different from the original. ICD10 Diagnosis Term Manuscript Reader Utility HLD HLD Disease Active Overview: Univer s (hyperlipi (hyperlipi 04-09 Formattin ity of demia) demia) 00:00: g of this [place] note Medical might be Branch different from the original. 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 Center type Hematuria Hematuria Problem Com mon [facility] [phone] Urinary Problem Commo n incontinen Spirit ce, [facility] [id number] Bladder Problem Commo n spasms [facility] [id number] Urinary Problem Commo n retention [facility] [phone] S/P Problem Common radiation Spirit therapy [facility] [id number] Coronary Problem Comm on artery Spirit disease - [facility] involving St coronary [facility] bypass Medical graft of Center [place] heart without angina pectoris [id number] Essential Problem Comm on hypertensi Spirit on [facility] Prostate Prostate Problem Commo n cancer cancer [facility] Allergies, Adverse Reactions, Alerts Allergy Allergy Status Severity Reaction(s) Onset Inactive Treating Comm ents Source Name Type Date Date Clinician Diphenhy Propensi Active 2019-[address] [facility] St dramine ty to 0-23 [facility] Hcl adverse 00:00: Medical reaction 00 Center s DIPHENHY Allergy Active 2019-03 [facility] DRAMINE 0-23 HCL 00:00: 00 Enalapri Drug Active Hives, 2014-[address] [facility] [facility] Allergy Itching 03-18 [facility] 00:[facility]: Medical Center ENALAPRI Allergy Active Hives 2014-03 [facility] L 03-18 00:00: 00 NO KNOWN Drug Active Univers ALLERGIE Class ity of S [facility] Family History Family Member Diagnosis Comments Start Date Stop Date Source Natural father Asthma [facility] Natural father Stroke [facility] Natural father Heart [facility] Natural mother Seizures [facility] Natural sister [facility] Social History Social Habit Start Date Stop Date Quantity Comments Source History SDOH [facility] Alcohol Frequency [facility] History SDOH [facility] Alcohol Std Drinks [facility] History SDOH [facility] Alcohol Binge Medical [facility] [facility] History of Tobacco [facility] - Use [facility] Exposure to 2021-08-22 2021-09-01 Not sure University SARS-CoV-2 (event) 00:00:00 17:20:00 [facility] Alcohol intake 2020-01-01 2020-01-01 [facility]00:00 of alcohol [facility] (finding) Tobacco use and 2019-12-29 2019-12-[address] [facility] St Jasen kes exposure 00:00:00 00:00:00 tobacco non-user Medical Center History of Social 2019-04-24 2019-04-[address] function 00:00:00 00:00:00 Hospital Alcohol Comment 2015-01-19 2015-01-[address] [facility] 00:00:00 00:00:00 Medical Center Sex Assigned At [address] [facility] 00:00:00 00:00:00 Medical Center Smoking Status Start Date Stop Date Source Never Smoker [facility] nter Ex-smoker 2019-12-29 00:00:00 2019-12-29 00:00:[address] [facility] [place] [facility] Medications Ordered Filled Start Stop Current Ordering Indication Dosage Frequency Signature Comments Components Source Medication Medication Date Date Medication? Clinician (SIG) Name Name cephALEXin No 500mg 500 mg, Un henry (KEFLEX) 6-29 06-29 Oral, ity of capsule 500 03:30: 02:32 [...] kg), Subcutaneo us, ONCE, 1 dose, On [facility] 09/01/21 at 2045, WINDY NaCl 0.9% 2021- No 500mL at 999 Univ ers (NS) bolus 09-02 mL/hr, 500 it y of infusion 00:45: 01:47 mL, IV [place] 500 mL 00 :00 Infusion, Medical ONCE, 1 Branch dose, On [facility] 09/01/21 at 1945, STAT magnesium 2021- No 2g 2 g, IV Univ ers sulfate in 09-02 Piggyback, it y of water 2 00:15: 00:53 Administer Bran as gram/50 mL 00 :00 over 60 Medica l (4 %) Minutes, Branch infusion 2 ONCE, 1 g dose, On [facility] 09/01/21 at 1915, Routine cephALEXin 2021- No [id number] 500mg Take 1 Univers (KEFLEX) 09-01 07-09 capsule by ity of 500 mg 00:00: 04:59 mouth 3 [place] capsule 00 :00 (three) Medical times [place] daily for 10 days. aspirin 81 Yes 81mg QD Take [address] MG EC 2 by mouth [facility] tablet 12:45: daily. [address] atorvastati Yes 40mg QD Take [address] [facility] (LIPITOR) 2-02 by mouth Luke s 40 MG 12:45: daily. Medical [address] tamsulosin Yes .4mg QD Take 0.[address] (FLOMAX) 2-02 mg by [facility] 0.4 mg Cp24 12:45: mouth Medic al 24 hr 42 daily. Center capsule HYDROcodone 2021-0 Yes 1{tbl} Take [address] -acetaminop 2-02 tablet by Gilberto es hen (NORCO 12:45: mouth Medica l 5-325) 42 every 8 Center 5-325 mg (eight) per tablet hours as needed for Pain. aspirin 81 0 Yes 81mg QD Take [address] MG EC 2-02 by mouth [facility] tablet 12:45: daily. Medical 42 Center atorvastati 0 Yes 40mg QD Take [address] [facility] (LIPITOR) 2-02 by mouth Luke s 40 MG 12:45: daily. Medical tablet 42 Center tamsulosin 0 Yes .4mg QD Take 0.[address] (FLOMAX) 2-02 mg by [facility]ukes 0.4 mg Cp24 12:45: mouth Medic al 24 hr 42 daily. Center capsule HYDROcodone 2021-0 Yes 1{tbl} Take [address] -acetaminop 2-02 tablet by Gilberto es hen (NORCO 12:45: mouth Medica l 5-325) 42 every 8 Center 5-325 mg (eight) per tablet hours as needed for Pain. aspirin 81 2021-0 Yes 81mg QD Take [address] MG EC 2-02 by mouth [facility] tablet 12:45: daily. [address] atorvastati 0 Yes 40mg QD Take [address] [facility] (LIPITOR) 2-02 by mouth Luke s 40 MG 12:45: daily. Medical tablet 42 Center tamsulosin 2021-0 Yes .4mg QD Take 0.[address] (FLOMAX) 2-02 mg by [facility] 0.4 mg Cp24 12:45: mouth Medic al 24 hr 42 daily. Center capsule HYDROcodone 2021-0 Yes 1{tbl} Take [address] -acetaminop 2-02 tablet by Gilberto es hen (NORCO 12:45: mouth Medica l 5-325) 42 every 8 Center 5-325 mg (eight) per tablet hours as needed for Pain. warfarin 2021-0 2022- No 6mg QD Take [address] (COUMADIN, 2-02 02-02 by mouth Luke s JANTOVEN) 6 11:00: 00:00 daily. Med ical MG tablet 48 :00 Center warfarin 2021- No 5mg QD Take [address] (COUMADIN, 04-08 tablet (5 Gilberto es JANTOVEN) 5 00:00: [...] :00 times Center daily. diclofenac 2020-03 Yes [id number] 75mg Take 1 Univers 75 mg EC 1- 9109 tablet by ity of tablet 00:00: mouth 2 [place] (two) Medical times Branch daily with meals. diclofenac 2020-03 Yes [id number] 75mg Take 1 Univers 75 mg EC 1- 9109 tablet by ity of tablet 00:00: mouth 2 [place] 00 (two) Medical times Branch daily with meals. diclofenac 2020-03 Yes [id number] 75mg Take 1 Univers 75 mg EC 1- 9109 tablet by ity of tablet 00:00: mouth 2 [place] (two) Medical times Branch daily with meals. diclofenac 2020-03 Yes [id number] 75mg Take 1 Univers 75 mg EC 1- 9109 tablet by ity of tablet 00:00: mouth 2 [place] 00 (two) Medical times Branch daily with meals. diclofenac 2020- No [id number] 75mg Take 1 Univers 75 mg EC 8-10 09-10 9109 tablet by ity o f tablet 00:00: 04:59 mouth 2 [place] 00 :00 (two) Medical times Branch daily with meals for 30 days. diclofenac Yes [id number] 75mg Take 1 Univers 75 mg EC 7-08 9109 tablet by ity of tablet 00:00: mouth (two) Medical times Branch daily with meals. diclofenac 2021-0 Yes [id number] 75mg Take 1 Univers 75 mg EC 7-08 9109 tablet by ity of tablet 00:00: mouth (two) Medical times Branch daily with meals. diclofenac 2021-0 Yes [id number] 75mg Take 1 Univers 75 mg EC 7-08 9109 tablet by ity of tablet 00:00: mouth (two) Medical times Branch daily with meals. diclofenac 2021-0 2021- No [id number] 75mg Take 1 Univers 75 mg EC 7-08 11- 9109 tablet by ity o f tablet 00:00: 00:00 mouth 00 :00 (two) Medical times Branch daily with meals. diclofenac 1-0 Yes [id number] 75mg Take 1 Univers 75 mg EC 6-10 9109 tablet by ity of tablet 00:00: mouth (two) Medical times Branch daily with meals. diclofenac 1-0 Yes [id number] 75mg Take 1 Univers 75 mg EC 6-10 9109 tablet by ity of tablet 00:00: mouth (two) Medical times Branch daily with meals. diclofenac 2021-0 Yes [id number] 75mg Take 1 Univers 75 mg EC 6-10 9109 tablet by ity of tablet 00:00: mouth (two) Medical times Branch daily with meals. diclofenac 2021-0 Yes [id number] 75mg Take 1 Univers 75 mg EC 6-10 9109 tablet by ity of tablet 00:00: mouth (two) Medical times Branch daily with meals. diclofenac 2021-0 Yes [id number] 75mg Take 1 Univers 75 mg EC 6-10 9109 tablet by ity of tablet 00:00: mouth (two) Medical times Branch daily with meals. diclofenac 2021-0 Yes [id number] 75mg Take 1 Univers 75 mg EC 6-10 9109 tablet by ity of tablet 00:00: mouth (two) Medical times Branch daily with meals. diclofenac 2021-0 Yes [id number] 75mg Take 1 Univers 75 mg EC 6-10 9109 tablet by ity of tablet 00:00: mouth (two) Medical times Branch daily with meals. diclofenac 2021-0 Yes [id number] 75mg Take 1 Univers 75 mg EC [...] daily with meals. diclofenac 2021-0 2021- No [id number] 75mg Take 1 Univers 75 mg EC [...] times Branch daily with meals. diclofenac 2020- 2020- No [id number] 75mg Take 1 Univers 75 mg EC 1-23 12-24 9109 tablet by ity o f tablet 00:00: 05:59 mouth 2 00 :00 (two) Medical times Branch daily with meals for 30 days. diclofenac 2020-0 Yes [id number] 75mg Take 1 Univers 75 mg EC 7-14 9109 tablet by ity of tablet 00:00: mouth (two) Medical times Branch daily with meals. diclofenac 2020-0 Yes [id number] 75mg Take 1 Univers 75 mg EC 7-14 9109 tablet by ity of tablet 00:00: mouth (two) Medical times Branch daily with meals. diclofenac 2020-0 Yes [id number] 75mg Take 1 Univers 75 mg EC 7-14 9109 tablet by ity of tablet 00:00: mouth (two) Medical times Branch daily with meals. diclofenac 2020-0 Yes [id number] 75mg Take 1 Univers 75 mg EC 7-14 9109 tablet by ity of tablet 00:00: mouth (two) Medical times Branch daily with meals. diclofenac 2020-0 Yes [id number] 75mg Take 1 Univers 75 mg EC 7-14 9109 tablet by ity of tablet 00:00: mouth (two) Medical times Branch daily with meals. diclofenac 2020-0 Yes [id number] 75mg Take 1 Univers 75 mg EC 7-14 9109 tablet by ity of tablet 00:00: mouth [place] (two) Medical times Branch daily with meals. diclofenac 2020-0 Yes [id number] 75mg Take 1 Univers 75 mg EC 7-14 9109 tablet by ity of tablet 00:00: mouth [place] (two) Medical times Branch daily with meals. diclofenac 2020-0 Yes [id number] 75mg Take 1 Univers 75 mg EC 7-14 9109 tablet by ity of tablet 00:00: mouth [place] (two) Medical times Branch daily with meals. diclofenac 2020-0 Yes [id number] 75mg Take 1 Univers 75 mg EC 7-14 9109 tablet by ity of tablet 00:00: mouth 2 [place] (two) Medical times Branch daily with meals. diclofenac 2020-0 Yes [id number] 75mg Take 1 Univers 75 mg EC 7-14 9109 tablet by ity of tablet 00:00: mouth [place] (two) Medical times Branch daily with meals. diclofenac 2020-0 Yes [id number] 75mg Take 1 Univers 75 mg EC 7-14 9109 tablet by ity of tablet 00:00: mouth (two) Medical times Branch daily with meals. diclofenac 2020-0 Yes [id number] 75mg Take 1 Univers 75 mg EC 7-14 9109 tablet by ity of tablet 00:00: mouth (two) Medical times Branch daily with meals. diclofenac 2020-0 Yes [id number] 75mg Take 1 Univers 75 mg EC 7-14 9109 tablet by ity of tablet 00:00: mouth (two) Medical times Branch daily with meals. diclofenac 2020-0 Yes [id number] 75mg Take 1 Univers 75 mg EC 7-14 9109 tablet by ity of tablet 00:00: mouth (two) Medical times Branch daily with meals. diclofenac 2020-0 Yes [id number] 75mg Take 1 Univers 75 mg EC 7-14 9109 tablet by ity of tablet 00:00: mouth (two) Medical times Branch daily with meals. diclofenac 2020-0 Yes [id number] 75mg Take 1 Univers 75 mg EC 7-14 9109 tablet by ity of tablet 00:00: mouth (two) Medical times Branch daily with meals. diclofenac 2020-0 Yes [id number] 75mg Take 1 Univers 75 mg EC 7-14 9109 tablet by ity of tablet 00:00: mouth (two) Medical times Branch daily with meals. diclofenac 2020-0 Yes [id number] 75mg Take 1 Univers 75 mg EC 7-14 9109 tablet by ity of tablet 00:00: mouth (two) Medical times Branch daily with meals. diclofenac 2020-0 Yes [id number] 75mg Take 1 Univers 75 mg EC 7-14 9109 tablet by ity of tablet 00:00: mouth (two) Medical times Branch daily with meals. diclofenac 2020-0 Yes [id number] 75mg Take 1 Univers 75 mg EC 7-14 9109 tablet by ity of tablet 00:00: mouth (two) Medical times Branch daily with meals. diclofenac 2020-0 Yes [id number] 75mg Take 1 Univers 75 mg EC 7-14 9109 tablet by ity of tablet 00:00: mouth (two) Medical times Branch daily with meals. diclofenac 2020-0 Yes [id number] 75mg Take 1 Univers 75 mg EC 7-14 9109 tablet by ity of tablet 00:00: mouth 2 (two) Medical times Branch daily with meals. diclofenac 2020-0 Yes [id number] 75mg Take 1 Univers 75 mg EC 7-14 9109 tablet by ity of tablet 00:00: mouth 2 (two) Medical times Branch daily with meals. amoxicillin 2020-0 Yes [id number] 500mg Take 1 Univers 500 mg 6-28 capsule by ity of capsule 00:00: mouth 3 (three) Medical times Branch daily. amoxicillin 2020-0 Yes [id number] 500mg Take 1 Univers 500 mg 6-28 capsule by ity of capsule 00:00: mouth (three) Medical times Branch daily. amoxicillin 2020-0 Yes [id number] 500mg Take 1 Univers 500 mg 6-28 capsule by ity of capsule 00:00: mouth (three) Medical times Branch daily. amoxicillin 2020-0 Yes [id number] 500mg Take 1 Univers 500 mg 6-28 capsule by ity of capsule 00:00: mouth (three) Medical times Branch daily. amoxicillin 2020-0 Yes [id number] 500mg Take 1 Univers 500 mg 6-28 capsule by ity of capsule 00:00: mouth (three) Medical times Branch daily. amoxicillin 2020-0 Yes [id number] 500mg Take 1 Univers 500 mg 6-28 capsule by ity of capsule 00:00: mouth (three) Medical times Branch daily. amoxicillin 2020-0 Yes [id number] 500mg Take 1 Univers 500 mg 6-28 capsule by ity of capsule 00:00: mouth (three) Medical times Branch daily. amoxicillin 2020-0 Yes [id number] 500mg Take 1 Univers 500 mg 6-28 capsule by ity of capsule 00:00: mouth (three) Medical times Branch daily. amoxicillin 2020-0 Yes [id number] 500mg Take 1 Univers 500 mg 6-28 capsule by ity of capsule 00:00: mouth 3 (three) Medical times Branch daily. amoxicillin 2020-0 Yes [id number] 500mg Take 1 Univers 500 mg 6-28 capsule by ity of capsule 00:00: mouth (three) Medical times Branch daily. amoxicillin 2020-0 Yes [id number] 500mg Take 1 Univers 500 mg 6-28 capsule by ity of capsule 00:00: mouth [place] (three) Medical times Branch daily. amoxicillin 2020-0 Yes [id number] 500mg Take 1 Univers 500 mg 6-28 capsule by ity of capsule 00:00: mouth [place] (three) Medical times Branch daily. amoxicillin 2020-0 Yes [id number] 500mg Take 1 Univers 500 mg 6-28 capsule by ity of capsule 00:00: mouth [place] (three) Medical times Branch daily. amoxicillin 2020-0 Yes [id number] 500mg Take 1 Univers 500 mg 6-28 capsule by ity of capsule 00:00: mouth [address] [place] [address] ([facility]) Medical times Branch daily. amoxicillin 2020-0 Yes [id number] 500mg Take 1 Univers 500 mg 6-28 capsule by ity of capsule 00:00: mouth [address] [place] [address] ([facility]) Medical times Branch daily. amoxicillin 2020-0 Yes [id number] 500mg Take 1 Univers 500 mg 6-28 capsule by ity of capsule 00:00: mouth [address] [place] [address] ([facility]) Medical times Branch daily. amoxicillin 2020-0 Yes [id number] 500mg Take 1 Univers 500 mg 6-28 capsule by ity of capsule 00:00: mouth [address] [place] [address] ([facility]) Medical times Branch daily. amoxicillin 2020-0 Yes [id number] 500mg Take 1 Univers 500 mg 6-28 capsule by ity of capsule 00:00: mouth [address] [place] [address] ([facility]) Medical times Branch daily. amoxicillin 2020-0 Yes [id number] 500mg Take 1 Univers 500 mg 6-28 capsule by ity of capsule 00:00: mouth [address] [place] [address] ([facility]) Medical times Branch daily. amoxicillin 2020-0 Yes [id number] 500mg Take 1 Univers 500 mg 6-28 capsule by ity of capsule 00:00: mouth [address] [place] [address] ([facility]) Medical times Branch daily. amoxicillin 2020-0 Yes [id number] 500mg Take 1 Univers 500 mg 6-28 capsule by ity of capsule 00:00: mouth [address] [place] [address] ([facility]) Medical times Branch daily. amoxicillin 2020-0 Yes [id number] 500mg Take 1 Univers 500 mg 6-28 capsule by ity of capsule 00:00: mouth [address] [place] [address] ([facility]) Medical times Branch daily. amoxicillin 2020-0 Yes [id number] 500mg Take 1 Univers 500 mg 6-28 capsule by ity of capsule 00:00: mouth 3 (three) Medical times Branch daily. amoxicillin 2020-0 Yes [id number] 500mg Take 1 Univers 500 mg 6-28 capsule by ity of capsule 00:00: mouth 3 (three) Medical times Branch daily. diclofenac 2020-0 [...] tablet by ity of tablet 00:00: mouth [place] (two) Medical times Branch daily with meals. [...] daily with meals. mirabegron 2020-0 2020- No [id number] 25mg Take 1 Univers 25 mg 6-05 07-06 tablet by ity of tablet 00:00: 04:59 mouth [place] 00 :00 daily for Medical 30 days. Branch mirabegron 2020-0 2020- No [id number] 25mg Take 1 Univers 25 mg 6-05 07-06 tablet by ity of tablet 00:00: 04:59 mouth [place] 00 :00 daily for Medical 30 days. Branch mirabegron 2020-0 2020- No [id number] 25mg Take 1 Univers 25 mg 6-05 07-06 tablet by ity of tablet 00:00: 04:59 mouth [place] 00 :00 daily for Medical 30 days. Branch mirabegron 2020-0 2020- No [id number] 25mg Take 1 Univers 25 mg 6-05 07-06 tablet by ity of tablet 00:00: 04:59 mouth [place] 00 :00 daily for Medical 30 days. Branch mirabegron 2020-0 2020- No [id number] 25mg Take 1 Univers 25 mg 6-05 07-06 tablet by ity of tablet 00:00: 04:59 mouth [place] 00 :00 daily for Medical 30 days. Branch mirabegron 2020-0 2020- No [id number] 25mg Take 1 Univers 25 mg 6-05 [...] by ity of tablet 00:00: mouth 2 [place] (two) Medical times Branch daily with meals. [...] tablet by ity of tablet 00:00: mouth [place] (two) Medical times Branch daily with meals. [...] hours of surgery cephALEXin 2020-0 2020- No [id number] 500mg Take 2 Univers 250 mg 05-04- capsules ity of capsule 00:00: 05:59 by mouth [place] 00 :00 every 12 [facility] ([facility] Branch hours for 3 days. cephALEXin 2020-0 2020- No [id number] 500mg Take 2 Univers 250 mg 05-04- capsules ity of capsule 00:00: 05:59 by mouth [place] 00 :00 every 12 [facility] ([facility]) Branch hours for 3 days. atorvastati 2020-0 Yes 20mg Take 20 mg Univers n 20 mg 2-20 by mouth ity of tablet 00:00: daily. [address] Branch metoprolol 2020-0 Yes 25mg Take 25 mg U nivers tartrate 25 2-20 by mouth 2 it y of mg tablet 00:00: (two) [place] 00 times Medical daily. Branch atorvastati 2020-0 Yes 20mg Take 20 mg Univers n 20 mg 2-20 by mouth ity of tablet 00:00: daily. [address] Branch metoprolol 2020-0 Yes 25mg Take 25 mg U nivers tartrate 25 2-20 by mouth 2 it y of mg tablet 00:00: (two) [place] 00 times Medical daily. Branch atorvastati 2020-0 Yes 20mg Take 20 mg Univers n 20 mg 2-20 by mouth ity of tablet 00:00: daily. [address] Branch metoprolol 2020-0 Yes 25mg Take 25 mg [facility] n[facility] tartrate 25 2-20 by mouth 2 it y of mg tablet 00:00: (two) [place] 00 times Medical daily. Branch atorvastati 2020-0 Yes 20mg Take 20 mg [facility] 20 mg 2-20 by mouth ity of tablet 00:00: daily. [facility] metoprolol 2020-0 Yes 25mg Take 25 mg [facility] tartrate 25 2-20 by mouth 2 it y of mg tablet 00:00: (two) [place] 00 times Medical daily. Branch atorvastati 2020-0 Yes 20mg Take 20 mg [facility] n 20 mg 2-20 by mouth ity of tablet 00:00: daily. [facility] metoprolol 2020-0 Yes 25mg Take 25 mg [facility] tartrate 25 2-20 by mouth 2 it y of mg tablet 00:00: (two) [place] 00 times Medical daily. Branch atorvastati 2020-0 Yes 20mg Take 20 mg [facility] 20 mg 2-20 by mouth ity of tablet 00:00: daily. [facility] metoprolol 2020-0 Yes 25mg Take 25 mg [facility] tartrate 25 2-20 by mouth 2 it y of mg tablet 00:00: (two) [place] 00 times Medical daily. Branch atorvastati 2020-0 Yes 20mg Take 20 mg [facility] 20 mg 2-20 by mouth ity of tablet 00:00: daily. [facility] metoprolol 2020-0 Yes 25mg Take 25 mg [facility] tartrate 25 2-20 by mouth 2 it y of mg tablet 00:00: (two) [place] 00 times Medical daily. Branch atorvastati 2020-0 Yes 20mg Take 20 mg [facility] 20 mg 2-20 by mouth ity of tablet 00:00: daily. [facility] metoprolol 2020-0 Yes 25mg Take 25 mg [facility] tartrate 25 2-20 by mouth 2 it y of mg tablet 00:00: (two) [place] 00 times Medical daily. Branch atorvastati 2020-0 Yes 20mg Take 20 mg [facility] 20 mg 2-20 by mouth ity of tablet 00:00: daily. [facility] metoprolol 2020-0 Yes 25mg Take 25 mg [facility] tartrate 25 2-20 by mouth 2 it y of mg tablet 00:00: (two) [place] 00 times Medical daily. Branch atorvastati 2020-0 Yes 20mg Take 20 mg [facility] 20 mg 2-20 by mouth ity of tablet 00:00: daily. [facility] metoprolol 2020-0 Yes 25mg Take 25 mg [facility] tartrate 25 2-20 by mouth 2 it y of mg tablet 00:00: (two) [place] 00 times Medical daily. Branch atorvastati 2020-0 Yes 20mg Take 20 mg [facility] 20 mg 2-20 by mouth ity of tablet 00:00: daily. [facility] metoprolol 2020-0 Yes 25mg Take 25 mg [facility] tartrate 25 2-20 by mouth 2 it y of mg tablet 00:00: (two) [place] 00 times Medical daily. Branch atorvastati 2020-0 Yes 20mg Take 20 mg [facility] 20 mg 2-20 by mouth ity of tablet 00:00: daily. [place] [facility] metoprolol 2020-0 Yes 25mg Take 25 mg [facility] tartrate 25 2-20 by mouth 2 it y of mg tablet 00:00: (two) [place] 00 times Medical daily. Branch atorvastati 2020-0 Yes 20mg Take 20 mg [facility] 20 mg 2-20 by mouth ity of tablet 00:00: daily. [place] [facility] metoprolol 2020-0 Yes 25mg Take 25 mg [facility] tartrate 25 2-20 by mouth 2 it y of mg tablet 00:00: (two) [place] 00 times Medical daily. Branch atorvastati 2020-0 Yes 20mg Take 20 mg [facility] 20 mg 2-20 by mouth ity of tablet 00:00: daily. [facility] metoprolol 2020-0 Yes 25mg Take 25 mg [facility] tartrate 25 2-20 by mouth 2 it y of mg tablet 00:00: (two) [place] 00 times Medical daily. Branch atorvastati 2020-0 Yes 20mg Take 20 mg [facility] 20 mg 2-20 by mouth ity of tablet 00:00: daily. [place] [facility] metoprolol 2020-0 Yes 25mg Take 25 mg [facility] tartrate 25 2-20 by mouth 2 it y of mg tablet 00:00: (two) [place] 00 times Medical daily. Branch atorvastati 2020-0 Yes 20mg Take 20 mg [facility] 20 mg 2-20 by mouth ity of tablet 00:00: daily. [facility] metoprolol 2020-0 Yes 25mg Take 25 mg [facility] tartrate 25 2-20 by mouth 2 it y of mg tablet 00:00: (two) [place] 00 times Medical daily. Branch atorvastati 2020-0 Yes 20mg Take 20 mg [facility] 20 mg 2-20 by mouth ity of tablet 00:00: daily. [facility] metoprolol 2020-0 Yes 25mg Take 25 mg [facility] tartrate 25 2-20 by mouth 2 it y of mg tablet 00:00: (two) [place] 00 times Medical daily. Branch atorvastati 2020-0 Yes 20mg Take 20 mg [facility] 20 mg 2-20 by mouth ity of tablet 00:00: daily. [facility] metoprolol 2020-0 Yes 25mg Take 25 mg [facility] tartrate 25 2-20 by mouth 2 it y of mg tablet 00:00: (two) [place] Medical daily. Branch atorvastati 2020-0 Yes 20mg Take 20 mg [facility] n 20 mg 2-20 by mouth ity of tablet 00:00: daily. [facility] metoprolol 2020-0 Yes 25mg Take 25 mg [facility] tartrate 25 2-20 by mouth 2 it y of mg tablet 00:00: (two) [place] Medical daily. Branch atorvastati 2020-0 Yes 20mg Take 20 mg [facility] n 20 mg 2-20 by mouth ity of tablet 00:00: daily. [facility] metoprolol 2020-0 Yes 25mg Take 25 mg [facility] tartrate 25 2-20 by mouth 2 it y of mg tablet 00:00: (two) [place] times Medical daily. Branch atorvastati 2020-0 Yes 20mg Take 20 mg [facility] n 20 mg 2-20 by mouth ity of tablet 00:00: daily. [facility] metoprolol 2020-0 Yes 25mg Take 25 mg [facility] tartrate 25 2-20 by mouth 2 it y of mg tablet 00:00: (two) [place] 00 times Medical daily. Branch atorvastati 2020-0 Yes 20mg Take 20 mg [facility] 20 mg 2-20 by mouth ity of tablet 00:00: daily. [facility] metoprolol 2020-0 Yes 25mg Take 25 mg [facility] tartrate 25 2-20 by mouth 2 it y of mg tablet 00:00: (two) [place] 00 times Medical daily. Branch atorvastati 2020-0 [...] it y of mg tablet 00:00: (two) [place] times Medical daily. Branch atorvastati 2020-0 Yes 20mg Take 20 mg [facility] n 20 mg 2-20 by mouth ity of tablet 00:00: daily. [facility] metoprolol 2020-0 Yes 25mg Take 25 mg [facility] tartrate 25 2-20 by mouth 2 it y of mg tablet 00:00: (two) [place] 00 times Medical daily. Branch atorvastati 2020-0 Yes 20mg Take 20 mg [facility] 20 mg 2-20 by mouth ity of tablet 00:00: daily. [facility] metoprolol 2020-0 Yes 25mg Take 25 mg [facility] tartrate 25 2-20 by mouth 2 it y of mg tablet 00:00: (two) [place] 00 times Medical daily. Branch atorvastati 2020-0 Yes 20mg Take 20 mg [facility] n 20 mg 2-20 by mouth ity of tablet 00:00: daily. [facility] metoprolol 2020-0 Yes 25mg Take 25 mg [facility] tartrate 25 2-20 by mouth 2 it y of mg tablet 00:00: (two) [place] 00 times Medical daily. Branch atorvastati 2020-0 Yes 20mg Take 20 mg [facility] 20 mg 2-20 by mouth ity of tablet 00:00: daily. [facility] metoprolol 2020-0 Yes 25mg Take 25 mg [facility] tartrate 25 2-20 by mouth 2 it y of mg tablet 00:00: (two) [place] 00 times Medical daily. Branch atorvastati 2020-0 Yes 20mg Take 20 mg [facility] 20 mg 2-20 by mouth ity of tablet 00:00: daily. [facility] metoprolol 2020-0 Yes 25mg Take 25 mg [facility] tartrate 25 2-20 by mouth 2 it y of mg tablet 00:00: (two) [place] 00 times Medical daily. Branch atorvastati 2020-0 Yes 20mg Take 20 mg [facility] 20 mg 2-20 by mouth ity of tablet 00:00: daily. [facility] metoprolol 2020-0 Yes 25mg Take 25 mg [facility] tartrate 25 2-20 by mouth 2 it y of mg tablet 00:00: (two) [place] 00 times Medical daily. Branch atorvastati 2020-0 Yes 20mg Take 20 mg [facility] n 20 mg 2-20 by mouth ity of tablet 00:00: daily. [place] [facility] metoprolol 2020-0 Yes 25mg Take 25 mg [facility] tartrate 25 2-20 by mouth 2 it y of mg tablet 00:00: (two) [place] 00 times Medical daily. Branch atorvastati 2020-0 Yes 20mg Take 20 mg [facility] n 20 mg 2-20 by mouth ity of tablet 00:00: daily. [place] [facility] metoprolol 2020-0 Yes 25mg Take 25 mg [facility] tartrate 25 2-20 by mouth 2 it y of mg tablet 00:00: (two) [place] 00 times Medical daily. Branch atorvastati 2020-0 Yes 20mg Take 20 mg [facility] n 20 mg 2-20 by mouth ity of tablet 00:00: daily. [facility] metoprolol 2020-0 Yes 25mg Take 25 mg [facility] tartrate 25 2-20 by mouth 2 it y of mg tablet 00:00: (two) [place] 00 times Medical daily. Branch atorvastati 2020-0 Yes 20mg Take 20 mg [facility] n 20 mg 2-20 by mouth ity of tablet 00:00: daily. [place] [facility] metoprolol 2020-0 Yes 25mg Take 25 mg [facility] tartrate 25 2-20 by mouth 2 it y of mg tablet 00:00: (two) [place] 00 times Medical daily. Branch atorvastati 2020-0 Yes 20mg Take 20 mg [facility] 20 mg 2-20 by mouth ity of tablet 00:00: daily. [facility] Branch metoprolol 2020-0 Yes 25mg Take 25 mg [facility] tartrate 25 2-20 by mouth 2 it y of mg tablet 00:00: (two) [place] 00 times Medical daily. Branch atorvastati 2020-0 Yes 20mg Take 20 mg [facility] n 20 mg 2-20 by mouth ity of tablet 00:00: daily. [facility] Branch metoprolol 2020-0 Yes 25mg Take 25 mg [facility] tartrate 25 2-20 by mouth 2 it y of mg tablet 00:00: (two) [place] 00 times Medical daily. Branch atorvastati 2020-0 Yes 20mg Take 20 mg [facility] n 20 mg 2-20 by mouth ity of tablet 00:00: daily. [facility] Branch metoprolol 2020-0 Yes 25mg Take 25 mg [facility] tartrate 25 2-20 by mouth 2 it y of mg tablet 00:00: (two) [place] Medical daily. Branch atorvastati 2020-0 Yes 20mg Take 20 mg [facility] n 20 mg 2-20 by mouth ity of tablet 00:00: daily. [facility] Branch metoprolol 2020-0 Yes 25mg Take 25 mg [facility] tartrate 25 2-20 by mouth 2 it y of mg tablet 00:00: (two) [place] Medical daily. Branch atorvastati 2020-0 Yes 20mg [...] it y of mg tablet 00:00: (two) [place] 00 times Medical daily. Branch atorvastati 2020-0 Yes 20mg Take 20 mg [facility] n 20 mg 2-20 by mouth ity of tablet 00:00: daily. [facility] Branch metoprolol 2020-0 Yes 25mg Take 25 mg [facility] tartrate 25 2-20 by mouth 2 it y of mg tablet 00:00: (two) [place] times Medical daily. Branch atorvastati 2020-0 Yes 20mg Take 20 mg [facility] n 20 mg 2-20 by mouth ity of tablet 00:00: daily. [place] [facility] metoprolol 2020-0 Yes 25mg Take 25 mg [facility] tartrate 25 2-20 by mouth 2 it y of mg tablet 00:00: (two) [place] times Medical daily. Branch atorvastati 2020-0 Yes 20mg Take 20 mg [facility] n 20 mg 2-20 by mouth ity of tablet 00:00: daily. [place] [facility] metoprolol 2020-0 Yes 25mg Take 25 mg [facility] n[facility] tartrate 25 2-20 by mouth 2 it y of mg tablet 00:00: (two) [place] times Medical daily. Branch tamsulosin 2020-0 Yes [...] mouth ity of hr capsule 17:20: daily. [place] [address] Medical Branch om 2020-0 Yes Take by Univers 3/E/linol/a 2-14 mouth. ity of la/oleic/gl 17:20: [place] a/lip 21 Medical (OMEGA Branch 3-6-9 ORAL) tamsulosin 2020-0 Yes Take by [facility] ers 0.4 mg 24 2-14 mouth ity of hr capsule 17:20: daily. [place] [address] Medical Branch om 2020-0 Yes Take by [facility] 3/E/linol/a 2-14 mouth. ity of la/oleic/gl 17:20: [place] a/lip 21 Medical (OMEGA Branch 3-6-9 ORAL) tamsulosin 2020-0 Yes Take by [facility] ers 0.4 mg 24 2-14 mouth ity of hr capsule 17:20: daily. [place] [address] Medical Branch om 2020-0 Yes Take by Univers 3/E/linol/a 2-14 mouth. ity of la/oleic/gl 17:20: [place] a/lip 21 Medical (OMEGA Branch 3-6-9 ORAL) tamsulosin 2020-0 Yes Take by [facility] ers 0.4 mg 24 2-14 mouth ity of hr capsule 17:20: daily. [place] [address] Medical Branch om 2020-0 Yes Take by [facility] 3/E/linol/a 2-14 mouth. ity of la/oleic/gl 17:20: [place] a/lip 21 Medical (OMEGA Branch 3-6-9 ORAL) tamsulosin 2020-0 Yes Take by [facility] ers 0.4 mg 24 2-14 mouth ity of hr capsule 17:20: daily. [place] [address] Medical Branch om 2020-0 Yes Take by Univers 3/E/linol/a 2-14 mouth. ity of la/oleic/gl 17:20: [place] a/lip 21 Medical (OMEGA Branch 3-6-9 ORAL) tamsulosin 2020-0 Yes Take by [facility] ers 0.4 mg 24 2-14 mouth ity of hr capsule 17:20: daily. [place] [address] Medical Branch om 2020-0 Yes Take by [facility] 3/E/linol/a 2-14 mouth. ity of la/oleic/gl 17:20: [place] a/lip 21 Medical (OMEGA Branch 3-6-9 ORAL) tamsulosin 2020-0 Yes Take by [facility] ers 0.4 mg 24 2-14 mouth ity of hr capsule 17:20: daily. [place] [address] [facility] Branch om 2020-0 Yes Take by [facility] 3/E/linol/a 2-14 mouth. ity of la/oleic/gl 17:20: [place] a/lip 21 Medical (OMEGA Branch 3-6-9 ORAL) tamsulosin 2020-0 Yes Take by [facility] ers 0.4 mg 24 2-14 mouth ity of hr capsule 17:20: daily. [place] [address] Medical Branch om 2020-0 Yes Take by [facility] 3/E/linol/a 2-14 mouth. ity of la/oleic/gl 17:20: [place] a/lip 21 Medical (OMEGA Branch 3-6-9 ORAL) tamsulosin 2020-0 Yes Take by [facility] ers 0.4 mg 24 2-14 mouth ity of hr capsule 17:20: daily. [place] [address] [facility] Branch om 2020-0 Yes Take by [facility] 3/E/linol/a 2-14 mouth. ity of la/oleic/gl 17:20: [place] a/lip 21 Medical (OMEGA Branch 3-6-9 ORAL) tamsulosin 2020-0 Yes Take by [facility] ers 0.4 mg 24 2-14 mouth ity of hr capsule 17:20: daily. [place] [address] Medical Branch om 2020-0 Yes Take by [facility] 3/E/linol/a 2-14 mouth. ity of la/oleic/gl 17:20: [place] a/lip 21 Medical (OMEGA Branch 3-6-9 ORAL) tamsulosin 2020-0 Yes Take by [facility] ers 0.4 mg 24 2-14 mouth ity of hr capsule 17:20: daily. [place] [address] Medical Branch om 2020-0 Yes Take by [facility] 3/E/linol/a 2-14 mouth. ity of la/oleic/gl 17:20: [place] a/lip 21 Medical (OMEGA Branch 3-6-9 ORAL) tamsulosin 2020-0 Yes Take by [facility] ers 0.4 mg 24 2-14 mouth ity of hr capsule 17:20: daily. [place] [address] Medical Branch om 2020-0 Yes Take by [facility] 3/E/linol/a 2-14 mouth. ity of la/oleic/gl 17:20: [place] a/lip 21 Medical (OMEGA Branch 3-6-9 ORAL) tamsulosin 2020-0 Yes Take by [facility] ers 0.4 mg 24 2-14 mouth ity of hr capsule 17:20: daily. [place] [address] Medical Branch om 2020-0 Yes Take by [facility] 3/E/linol/a 2-14 mouth. ity of la/oleic/gl 17:20: [place] a/lip 21 Medical (OMEGA Branch 3-6-9 ORAL) tamsulosin 2020-0 Yes Take by [facility] ers 0.4 mg 24 2-14 mouth ity of hr capsule 17:20: daily. [place] [address] Medical Branch om 2020-0 Yes Take by [facility] 3/E/linol/a 2-14 mouth. ity of la/oleic/gl 17:20: [place] a/lip 21 Medical (OMEGA Branch 3-6-9 ORAL) tamsulosin 2020-0 Yes Take by [facility] ers 0.4 mg 24 2-14 mouth ity of hr capsule 17:20: daily. [place] [address] Medical Branch om 2020-0 Yes Take by [facility] 3/E/linol/a 2-14 mouth. ity of la/oleic/gl 17:20: [place] a/lip 21 Medical (OMEGA Branch 3-6-9 ORAL) tamsulosin 2020-0 Yes Take by Uni vers 0.4 mg 24 2-14 mouth ity of hr capsule 17:20: daily. [place] [address] Medical Branch om 2020-0 Yes Take by [facility] 3/E/linol/a 2-14 mouth. ity of la/oleic/gl 17:20: [place] a/lip 21 Medical (OMEGA Branch 3-6-9 ORAL) tamsulosin 2020-0 Yes Take by [facility] ers 0.4 mg 24 2-14 mouth ity of hr capsule 17:20: daily. [place] [address] Medical Branch om 2020-0 Yes Take by [facility] 3/E/linol/a 2-14 mouth. ity of la/oleic/gl 17:20: [place] a/lip 21 Medical (OMEGA Branch 3-6-9 ORAL) tamsulosin 2020-0 Yes Take by [facility] ers 0.4 mg 24 2-14 mouth ity of hr capsule 17:20: daily. [place] [address] Medical Branch om 2020-0 Yes Take by [facility] 3/E/linol/a 2-14 mouth. ity of la/oleic/gl 17:20: [place] a/lip 21 Medical (OMEGA Branch 3-6-9 ORAL) tamsulosin 2020-0 Yes Take by [facility] ers 0.4 mg 24 2-14 mouth ity of hr capsule 17:20: daily. [place] [address] Medical Branch om 2020-0 Yes Take by [facility] 3/E/linol/a 2-14 mouth. ity of la/oleic/gl 17:20: [place] a/lip 21 Medical (OMEGA Branch 3-6-9 ORAL) tamsulosin 2020-0 Yes Take by [facility] ers 0.4 mg 24 2-14 mouth ity of hr capsule 17:20: daily. [place] [address] Medical Branch om 2020-0 Yes Take by [facility] 3/E/linol/a 2-14 mouth. ity of la/oleic/gl 17:20: [place] a/lip 21 Medical (OMEGA Branch 3-6-9 ORAL) tamsulosin 2020-0 Yes Take by [facility] ers 0.4 mg 24 2-14 mouth ity of hr capsule 17:20: daily. [place] [address] [facility] Branch om 2020-0 Yes Take by [facility] 3/E/linol/a 2-14 mouth. ity of la/oleic/gl 17:20: [place] a/lip 21 Medical (OMEGA Branch 3-6-9 ORAL) tamsulosin 2020-0 Yes Take by [facility] ers 0.4 mg 24 2-14 mouth ity of hr capsule 17:20: daily. [place] [address] [facility] Branch om 2020-0 Yes Take by [facility] 3/E/linol/a 2-14 mouth. ity of la/oleic/gl 17:20: [place] a/lip 21 Medical (OMEGA Branch 3-6-9 ORAL) tamsulosin 2020-0 Yes Take by [facility] ers 0.4 mg 24 2-14 mouth ity of hr capsule 17:20: daily. [place] [address] [facility] Branch om 2020-0 Yes Take by [facility] 3/E/linol/a 2-14 mouth. ity of la/oleic/gl 17:20: [place] a/lip 21 Medical (OMEGA Branch 3-6-9 ORAL) tamsulosin 2020-0 Yes Take by [facility] ers 0.4 mg 24 2-14 mouth ity of hr capsule 17:20: daily. [place] [address] [facility] Branch om 2020-0 Yes Take by [facility] 3/E/linol/a 2-14 mouth. ity of la/oleic/gl 17:20: [place] a/lip 21 Medical (OMEGA Branch 3-6-9 ORAL) tamsulosin 2020-0 Yes Take by [facility] ers 0.4 mg 24 2-14 mouth ity of hr capsule 17:20: daily. [place] [address] [facility] Branch om 2020-0 Yes Take by [facility] 3/E/linol/a 2-14 mouth. ity of la/oleic/gl 17:20: [place] a/lip 21 Medical (OMEGA Branch 3-6-9 ORAL) tamsulosin 2020-0 Yes Take by [facility] ers 0.4 mg 24 2-14 mouth ity of hr capsule 17:20: daily. [place] [address] [facility] Branch om 2020-0 Yes Take by [facility] 3/E/linol/a 2-14 mouth. ity of la/oleic/gl 17:20: [place] a/lip 21 Medical (OMEGA Branch 3-6-9 ORAL) tamsulosin 2020-0 Yes Take by [facility] ers 0.4 mg 24 2-14 mouth ity of hr capsule 17:20: daily. [place] [address] [facility] Branch om 2020-0 Yes Take by [facility] 3/E/linol/a 2-14 mouth. ity of la/oleic/gl 17:20: [place] a/lip 21 Medical (OMEGA Branch 3-6-9 ORAL) tamsulosin 2020-0 Yes Take by [facility] ers 0.4 mg 24 2-14 mouth ity of hr capsule 17:20: daily. [place] [address] [facility] Branch om 2020-0 Yes Take by [facility] 3/E/linol/a 2-14 mouth. ity of la/oleic/gl 17:20: [place] a/lip 21 Medical (OMEGA Branch 3-6-9 ORAL) tamsulosin 2020-0 Yes Take by [facility] ers 0.4 mg 24 2-14 mouth ity of hr capsule 17:20: daily. [place] [address] [facility] Branch om 2020-0 Yes Take by [facility] 3/E/linol/a 2-14 mouth. ity of la/oleic/gl 17:20: [place] a/lip 21 Medical (OMEGA Branch 3-6-9 ORAL) tamsulosin 2020-0 Yes Take by [facility] ers 0.4 mg 24 2-14 mouth ity of hr capsule 17:20: daily. [place] [address] [facility] Branch tamsulosin 2020-0 Yes Take by [facility] ers 0.4 mg 24 2-14 mouth ity of hr capsule 17:20: daily. [place] [address] [facility] Branch om 2020-0 Yes Take by [facility] 3/E/linol/a 2-14 mouth. ity of la/oleic/gl 17:20: [place] a/lip 21 Medical (OMEGA Branch 3-6-9 ORAL) om 2020-0 Yes Take by [facility] 3/E/linol/a 2-14 mouth. ity of la/oleic/gl 17:20: [place] a/lip 21 Medical (OMEGA Branch 3-6-9 ORAL) tamsulosin 2020-0 Yes Take by [facility] ers 0.4 mg 24 2-14 mouth ity of hr capsule 17:20: daily. [place] [address] [facility] Branch om 2020-0 Yes Take by [facility] 3/E/linol/a 2-14 mouth. ity of la/oleic/gl 17:20: [place] a/lip 21 Medical (OMEGA Branch 3-6-9 ORAL) tamsulosin 2020-0 Yes Take by [facility] ers 0.4 mg 24 2-14 mouth ity of hr capsule 17:20: daily. [place] [address] [facility] Branch om 2020-0 Yes Take by [facility] 3/E/linol/a 2-14 mouth. ity of la/oleic/gl 17:20: [place] a/lip 21 Medical (OMEGA Branch 3-6-9 ORAL) tamsulosin 2020-0 Yes Take by [facility] ers 0.4 mg 24 2-14 mouth ity of hr capsule 17:20: daily. [place] [address] [facility] Branch om 2020-0 Yes Take by [facility] 3/E/linol/a 2-14 mouth. ity of la/oleic/gl 17:20: [place] a/lip 21 Medical (OMEGA Branch 3-6-9 ORAL) tamsulosin 2020-0 Yes Take by [facility] ers 0.4 mg 24 2-14 mouth ity of hr capsule 17:20: daily. [place] [address] [facility] Branch om 2020-0 Yes Take by [facility] 3/E/linol/a 2-14 mouth. ity of la/oleic/gl 17:20: [place] a/lip 21 Medical (OMEGA Branch 3-6-9 ORAL) tamsulosin 2020-0 Yes Take by [facility] ers 0.4 mg 24 2-14 mouth ity of hr capsule 17:20: daily. [place] [address] [facility] Branch om 2020-0 Yes Take by [facility] 3/E/linol/a 2-14 mouth. ity of la/oleic/gl 17:20: [place] a/lip 21 Medical (OMEGA Branch 3-6-9 ORAL) tamsulosin 2020-0 Yes Take by [facility] ers 0.4 mg 24 2-14 mouth ity of hr capsule 17:20: daily. [address] Branch om 2020-0 Yes Take by [facility] 3/E/linol/a 2-14 mouth. ity of la/oleic/gl 17:20: [place] a/lip 21 Medical (OMEGA Branch 3-6-9 ORAL) tamsulosin 2020-0 Yes Take by [facility] ers 0.4 mg 24 2-14 mouth ity of hr capsule 17:20: daily. [place] [address] [facility] Branch om 2020-0 Yes Take by [facility] 3/E/linol/a 2-14 mouth. ity of la/oleic/gl 17:20: [place] a/lip 21 Medical (OMEGA Branch 3-6-9 ORAL) tamsulosin 2020-0 Yes Take by [facility] ers 0.4 mg 24 2-14 mouth ity of hr capsule 17:20: daily. [place] [address] [facility] Branch om 2020-0 Yes Take by [facility] 3/E/linol/a 2-14 mouth. ity of la/oleic/gl 17:20: [place] a/lip 21 Medical (OMEGA Branch 3-6-9 ORAL) tamsulosin 2020-0 Yes Take by [facility] ers 0.4 mg 24 2-14 mouth ity of hr capsule 17:20: daily. [place] [address] [facility] Branch om 2020-0 Yes Take by [facility] 3/E/linol/a 2-14 mouth. ity of la/oleic/gl 17:20: [place] a/lip 21 Medical (OMEGA Branch 3-6-9 ORAL) tamsulosin 2020-0 Yes Take by [facility] ers 0.4 mg 24 2-14 mouth ity of hr capsule 17:20: daily. [place] [address] [facility] Branch om 2020-0 Yes Take by [facility] 3/E/linol/a 2-14 mouth. ity of la/oleic/gl 17:20: [place] a/lip 21 Medical (OMEGA Branch 3-6-9 ORAL) tamsulosin 2020-0 Yes Take by [facility] ers 0.4 mg 24 2-14 mouth ity of hr capsule 17:20: daily. [place] [address] [facility] Branch om 2020-0 Yes Take by [facility] 3/E/linol/a 2-14 mouth. ity of la/oleic/gl 17:20: [place] a/lip 21 Medical (OMEGA Branch 3-6-9 ORAL) tamsulosin 2020-0 Yes Take by [facility] ers 0.4 mg 24 2-14 mouth ity of hr capsule 11:20: daily. [place] [address] Medical Branch om 2020-0 Yes Take by [facility] 3/E/linol/a 2-14 mouth. ity of la/oleic/gl 11:20: [place] a/lip 21 Medical (OMEGA Branch 3-6-9 ORAL) tamsulosin 2020-0 Yes Take by [facility] ers 0.4 mg 24 2-14 mouth ity of hr capsule 11:20: daily. [place] [address] [facility] Branch om 2020-0 Yes Take by [facility] 3/E/linol/a 2-14 mouth. ity of la/oleic/gl 11:20: [place] a/lip 21 Medical (OMEGA Branch 3-6-9 ORAL) tamsulosin 2020-0 Yes Take by [facility] ers 0.4 mg 24 2-14 mouth ity of hr capsule 11:20: daily. [place] [address] Medical Branch om 2019-0 Yes Take by [facility] 3/E/linol/a 2-14 mouth. ity of la/oleic/gl 11:20: [place] a/lip 21 Medical (OMEGA Branch 3-6-9 ORAL) tamsulosin Yes Take by Univ ers 0.4 mg 24 2-14 mouth ity of hr capsule 11:20: daily. [place] [address] [facility] Branch om 2019-0 Yes Take by [facility] 3/E/linol/a 2-14 mouth. ity of la/oleic/gl 11:20: [place] a/lip 21 Medical (OMEGA Branch 3-6-9 ORAL) diclofenac 2018-03 2020- No [id number] 75mg Take 1 [facility] 75 mg EC 2- 9109 tablet by ity o f tablet 00:00: 05:59 mouth 2 [place] 00 :00 (two) Medical times Branch daily with meals for 60 days. diclofenac 2018-03- No [id number] 75mg Take 1 [facility] 75 mg EC 2- 9109 tablet by ity o f tablet 00:00: 05:59 mouth 2 [place] 00 :00 ([facility]) Medical times Branch daily with meals for 60 days. diclofenac 2018-03 2020- No [id number] 75mg Take 1 [facility] 75 mg EC 2- 9109 tablet by ity o f tablet 00:00: 05:59 mouth 2 [place] 00 :00 (two) Medical times Branch daily with meals for 60 days. diclofenac 2018-03- No [id number] 75mg Take 1 [facility] 75 mg EC 2- 9109 tablet by ity o f tablet 00:00: 05:59 mouth 2 [place] 00 :00 (two) Medical times Branch daily with meals for 60 days. diclofenac Yes [id number] 75mg Take 1 [facility] 75 mg EC 8- 9109 tablet by ity of tablet 00:00: mouth 2 [place] 00 ([facility]) Medical times Branch daily with meals. diclofenac Yes [id number] 75mg Take 1 [facility] 75 mg EC 8-02 9109 tablet by ity of tablet 00:00: mouth 2 [place] 00 (two) Medical times Branch daily with meals. diclofenac Yes [id number] 75mg Take 1 [facility] 75 mg EC 8-02 9109 tablet by ity of tablet 00:00: mouth 2 [place] 00 (two) Medical times Branch daily with meals. diclofenac 2018- 2019- No [id number] 75mg Take 1 [facility] 75 mg EC 10-06 9109 tablet by ity o f tablet [...] Medical DAILY FOR Branch 28 DAYS HYDROcodone 2019-0 Yes TAKE 1 Univ ers -acetaminop 7-08 [...] hours as needed. atorvastati atorvastati No atorvastat [facility] n 20 mg n 20 mg in 20 mg Famil y tablet TAKE tablet TAKE tablet Practic 1 TABLET BY 1 TABLET BY TAKE 1 e MOUTH ONCE MOUTH ONCE TABLET BY DAILY DAILY MOUTH ONCE DAILY diclofenac diclofenac No diclofenac [facility] sodium 75 sodium 75 sodium 75 Family [...] route. hydrocodone hydrocodone No 1 Q4H hydrocodon [facility] 10 10 e 10 Family mg-acetamin mg-acetamin mg-acetami Practic ophen 325 ophen 325 nophen 325 e mg tablet mg tablet mg tablet Take 1 Take 1 Take 1 tablet tablet tablet every 4 every 4 every 4 hours by hours by hours by oral route. oral route. oral route. [facility]codone [facility] 5 Family mg-acetamin mg-acetamin mg-acetami Practic ophen 325 ophen 325 nophen 325 e mg tablet mg tablet mg tablet TAKE 1 TAKE 1 TAKE 1 TABLET BY TABLET BY TABLET BY MOUTH THREE MOUTH THREE MOUTH TIMES DAILY TIMES DAILY THREE TIMES DAILY metoprolol metoprolol No metoprolol [facility] tartrate 25 tartrate 25 tartrate Family mg tablet mg tablet 25 mg Prac tic TAKE 1 TAKE 1 tablet e TABLET BY TABLET BY TAKE 1 MOUTH TWICE MOUTH TWICE TABLET BY DAILY DAILY MOUTH TWICE DAILY Myrbetriq Myrbetriq No Myrbetriq [facility] 25 mg 25 mg 25 mg Family [...] DISPENSING DISPENSING DISPENSING prednisone prednisone No prednisone [facility] 5 mg tablet 5 mg tablet 5 [...] DISPENSING DISPENSING DISPENSING tamsulosin tamsulosin No tamsulosin [facility] 0.4 mg 0.4 mg 0.4 mg Family [...] 5 t} Besylate 5 MG MG MG No known No Univers medications [facility] No known No Univers medications [facility] Ditropan XL Ditropan XL 2022- No Ditropan 5 MG 5 MG 06-15 XL 5 MG 00:00 :00 Ditropan XL Ditropan XL 2022- No Ditropan 5 MG 5 MG 06-15 XL 5 MG 00:00 :00 Immunizations Ordered Immunization Filled Immunization Date Status Commen ts Source Name Name pneumococcal pneumococcal 2019-03-31 Completed [facility] polysaccharide PPV23 polysaccharide PPV23 00:00:00 Practice Tdap Tdap 2019-03-07 Completed [facility] 00:[facility]:00 [facility] Td Td 2018-02-03 Completed [facility] 10:21:00 [facility] Td Td 2018-02-03 Completed [facility] 10:21:00 [facility] Vital Signs Vital Name Observation Time Observation Value Comments Source height 2022-03-24 10:15:00 67.75 [in_i] [facility] weight 2022-03-24 10:15:00 174 [lb_av] [facility] temperature 2022-03-24 10:15:00 97.3 [degF] [facility] bmi 2022-03-24 10:15:00 26.65 kg/m2 [facility] oximetry 2022-03-24 10:15:00 98 % Common [facility] respiratory rate 2022-03-24 10:15:00 18 /min Comm on [facility] blood pressure 2022-03-24 10:15:00 132 mm[Hg] Common [facility] systolic [facility] blood pressure 2022-03-24 10:15:00 68 mm[Hg] Common [facility] - diastolic [facility] height 2021-12-17 09:00:00 67.75 [in_i] [facility] weight 2021-12-17 09:00:00 167 [lb_av] [facility] temperature 2021-12-17 09:00:00 97.6 [degF] [facility] bmi 2021-12-17 09:00:00 25.58 kg/m2 [facility] oximetry 2021-12-17 09:00:00 96 % [facility] respiratory rate 2021-12-17 09:00:00 16 /min Comm on [facility] blood pressure 2021-12-17 09:00:00 185 mm[Hg] Common [facility] systolic [facility] blood pressure 2021-12-17 09:00:00 75 mm[Hg] Common [facility] diastolic [facility] Systolic blood 2021-09-02 02:00:00 165 mm[Hg] Univer sity of [facility] Diastolic blood 2021-09-02 02:00:00 74 mm[Hg] Unive rsity of pressure [facility] Heart rate 2021-09-02 02:00:00 61 /min Universi ty [facility] Respiratory rate 2021-09-02 02:00:00 20 /min [facility] saturation in 2021-09-02 02:00:00 98 /min [facility] Arterial blood by [facility] Pulse oximetry Branch Body temperature 2021-09-01 22:19:00 36.28 Natalie Univ ersity [facility] Body weight 2021-09-01 22:19:00 81.647 kg [facility] BMI 2021-09-01 22:19:00 25.83 kg/m2 [facility] HEIGHT 2021-04-06 12:08:00 180.3 cm WEIGHT 2021-04-06 12:08:00 79.379 kg HEIGHT 2021-04-06 12:08:00 180.3 cm WEIGHT 2021-04-06 12:08:00 79.379 kg BP Diastolic 2020-03-10 00:00:00 68 mm[Hg] [facility] Height 2020-03-10 00:00:00 68 [in_i] [facility] BMI (Body Mass 2020-03-10 00:00:00 27.4 kg/m2 [facility]) Practice BP Systolic 2020-03-10 00:00:00 126 mm[Hg] [facility] Body Weight 2020-03-10 00:00:00 180 [lb_av] [facility] WEIGHT 2020-01-03 04:20:00 81.194 [...] 19:40:00 150 mm[Hg] Univer sity of pressure [facility] Diastolic blood 2019-11-07 19:40:00 74 mm[Hg] Unive rsity of pressure [facility] Heart rate 2019-11-07 19:40:00 76 /min [facility] Body temperature 2019-11-07 19:40:00 36.44 Natalie Univ [facility]ity [facility] Respiratory rate 2019-11-07 19:40:00 18 /min Univ [facility] Body weight 2019-11-07 19:40:00 81.647 kg [facility] BMI 2019-11-07 19:40:00 25.83 kg/m2 [facility] Systolic blood 2019-11-07 19:40:00 150 mm[Hg] Univer sity of pressure [facility] Diastolic blood 2019-11-07 19:40:00 74 mm[Hg] Unive rsity of pressure [facility] Heart rate 2019-11-07 19:40:00 76 /min [facility] Body temperature 2019-11-07 19:40:00 36.44 Natalie [facility] Respiratory rate 2019-11-07 19:40:00 18 /min Univ [facility] Body weight 2019-11-07 19:40:00 81.647 kg [facility] BMI 2019-11-07 19:40:00 25.83 kg/m2 [facility] Systolic blood 2019-09-24 20:24:00 155 mm[Hg] Univer sity of pressure [facility] Diastolic blood 2019-09-24 20:24:00 76 mm[Hg] Unive rsity of pressure [facility] Heart rate 2019-09-24 20:24:00 63 /min [facility] Body temperature 2019-09-24 20:24:00 36.11 Natalie [facility] Respiratory rate 2019-09-24 20:24:00 18 /min Univ [facility] Body weight 2019-09-24 20:24:00 82.373 kg [facility] BMI 2019-09-24 20:24:00 26.06 kg/m2 [facility] Systolic blood 2019-09-24 20:24:00 155 mm[Hg] Univer sity of pressure [facility] Diastolic blood 2019-09-24 20:24:00 76 mm[Hg] Unive rsity of pressure [facility] Heart rate 2019-09-24 20:24:00 63 /min [facility] Body temperature 2019-09-24 20:24:00 36.11 Natalie Univ ersity of [facility] Respiratory rate 2019-09-24 20:24:00 18 /min Univ [facility] Body weight 2019-09-24 20:24:00 82.373 kg [facility] BMI 2019-09-24 20:24:00 26.06 kg/m2 Universi ty of [facility] Body temperature 2019-09-21 20:41:00 35.78 Natalie Univ ersity of [facility] Respiratory rate 2019-09-21 20:41:00 18 /min Univ ersity of [facility] Body weight 2019-09-21 20:41:00 81.829 kg Universi ty of [facility] BMI 2019-09-21 20:41:00 25.88 kg/m2 Universi ty of [facility] Systolic blood 2019-09-21 20:41:00 149 mm[Hg] Univer sity of pressure [facility] Diastolic blood 2019-09-21 20:41:00 79 mm[Hg] Unive rsity of pressure [facility] Heart rate 2019-09-21 20:41:00 64 /min Universi ty of [facility] Systolic blood 2019-09-02 11:05:00 188 mm[Hg] Univer sity of pressure [facility] Diastolic blood 2019-09-02 11:05:00 85 mm[Hg] Unive rsity of pressure [facility] Heart rate 2019-09-02 11:05:00 84 /min Universi ty of [facility] Body temperature 2019-09-02 11:05:00 36.89 Natalie Univ ersity of [facility] Respiratory rate 2019-09-02 11:05:00 16 /min Univ ersity of [facility] Body height 2019-09-02 11:05:00 177.8 cm Universi ty of [facility] Body weight 2019-09-02 11:05:00 79.379 kg Universi ty of [facility] BMI 2019-09-02 11:05:00 25.11 kg/m2 Universi ty of [facility] Oxygen saturation in 2019-09-02 11:05:00 99 /min University of Arterial blood by [facility] Pulse oximetry Branch Body temperature 2019-08-10 20:51:00 36.61 Natalie [facility] Respiratory rate 2019-08-10 20:51:00 22 /min Univ [facility] Body weight 2019-08-10 20:51:00 80.797 kg [facility] BMI 2019-08-10 20:51:00 27.08 kg/m2 [facility] Oxygen saturation in 2019-08-10 20:51:00 96 /min University of Arterial blood by [facility] Pulse oximetry Branch Systolic blood 2019-07-09 15:45:00 131 mm[Hg] Univer sity of pressure [facility] Diastolic blood 2019-07-09 15:45:00 69 mm[Hg] Unive rsity of pressure [facility] Heart rate 2019-07-09 15:45:00 49 /min [facility] Body temperature 2019-07-09 15:45:00 37 Natalie [facility] Respiratory rate 2019-07-09 15:45:00 20 /min [facility] Body height 2019-07-09 15:45:00 172.7 cm [facility] Body weight 2019-07-09 15:45:00 82.101 kg [facility] BMI 2019-07-09 15:45:00 27.52 kg/m2 [facility] Oxygen saturation in 2019-07-09 15:45:00 98 /min University of Arterial blood by [facility] Pulse oximetry Branch Systolic blood 2019-05-24 18:10:00 132 mm[Hg] Univer sity of pressure [facility] Diastolic blood 2019-05-24 18:10:00 61 mm[Hg] Unive rsity of pressure [facility] Heart rate 2019-05-24 18:10:00 50 /min [facility] Body temperature 2019-05-24 18:10:00 36.56 Natalie [facility] Respiratory rate 2019-05-24 18:10:00 18 /min [facility] Body weight 2019-05-24 18:10:00 82.101 kg [facility] BMI 2019-05-24 18:10:00 27.52 kg/m2 [facility] Body temperature 2019-05-04 17:26:00 36.83 Natalie [facility] Respiratory rate 2019-05-04 17:26:00 20 /min [facility] Body height 2019-05-04 17:26:00 172.7 cm [facility] Body weight 2019-05-04 17:26:00 79.379 kg [facility] BMI 2019-05-04 17:26:00 26.61 kg/m2 [facility] Oxygen saturation in 2019-05-04 17:26:00 98 /min University of Arterial blood by [facility] Pulse oximetry Branch Systolic blood 2019-05-04 17:26:00 139 mm[Hg] Univer sity of pressure [facility] Diastolic blood 2019-05-04 17:26:00 67 mm[Hg] Unive rsity of pressure [facility] Heart rate 2019-05-04 17:26:00 80 /min [facility] Systolic blood 2019-04-20 17:14:00 135 mm[Hg] Univer sity of pressure [facility] Diastolic blood 2019-04-20 17:14:00 80 mm[Hg] Unive rsity of pressure [facility] Heart rate 2019-04-20 17:14:00 80 /min [facility] Body temperature 2019-04-20 17:14:00 36.67 Natalie [facility] Respiratory rate 2019-04-20 17:11:00 20 /min Univ [facility] Body height 2019-04-20 17:11:00 172.7 cm [facility] Body weight 2019-04-20 17:11:00 77.565 kg [facility] BMI 2019-04-20 17:11:00 26.00 kg/m2 [facility] Oxygen saturation in 2019-04-20 17:11:00 98 /min University of Arterial blood by [place] [facility] Pulse oximetry Branch Systolic blood 2018-10-06 13:34:00 127 mm[Hg] Univer sity of pressure [facility] Diastolic blood 2018-10-06 13:34:00 72 mm[Hg] Unive rsity of pressure [facility] Body height 2018-10-06 13:34:00 175.3 cm [facility] Body weight 2018-10-06 13:34:00 81.647 kg [facility] BMI 2018-10-06 13:34:00 26.58 kg/m2 [facility] Heart rate 2021-04-08 11:20:00 64 /min [facility] Respiratory rate 2021-04-08 11:20:00 18 /min [facility] Oxygen saturation in 2021-04-08 11:20:00 97 /min [facility] Arterial blood by Medical Ce nter Pulse oximetry Systolic blood 2021-04-08 07:00:00 142 mm[Hg] [facility] Diastolic blood 2021-04-08 07:00:00 67 mm[Hg] [facility] S [facility] Body temperature 2021-04-08 07:00:[address] [facility] Body height 2021-04-06 12:08:00 180.3 cm [facility] Body weight 2021-04-06 12:08:00 79.379 kg [facility] BMI 2021-04-06 12:08:00 24.41 kg/m2 [facility] Procedures Procedure Date / Time Performing Clinician Source Performed EKG-12 LEAD 2021-09-02 02:42:27 [facility] MAGNESIUM 2021-09-01 23:35:00 [facility] TROPONIN I 2021-09-01 23:35:00 [facility] COMP. METABOLIC PANEL 2021-09-01 23:35:00 [facility] ([id number]) [facility] CBC WITH DIFF 2021-09-01 23:35:00 [facility] PROTHROMBIN TIME / INR 2021-09-01 23:35:00 Carley Booker [facility] ACTIVATED PARTIAL 2021-09-01 23:35:00 Carley Booker [facility] URINALYSIS 2021-09-01 23:35:00 [facility] N-TERMINAL PRO-BNP 2021-09-01 23:35:00 Carley Booker [facility] XR CHEST 1 VW 2021-09-01 23:27:00 Carley Booker [place] [facility] NOTICE OF PRIVACY 2021-09-01 22:21:51 Doctor Unassigned, No [facility] Name [facility] CONSENT/REFUSAL FOR 2021-09-01 22:14:42 Doctor Unassigned, No [facility] DIAGNOSIS AND TREATMENT Name [facility] APTT 2021-04-08 09:10:00 Miguelina [facility] CBC W/PLT COUNT & AUTO 2021-04-08 05:18:00 [facility] COMPREHENSIVE METABOLIC 2021-04-08 05:18:[facility] 2021-04-08 05:18[facility] 2021-04-08 05:18:00 [facility] PROTHROMBIN TIME/INR 2021-04-08 05:18:[address] [facility] APTT 2021-04-08 05:18:00 Miguelina [facility] CBC W/PLT COUNT & AUTO 2021-04-08 05:18:00 [facility] 2021-04-08 01:09:00 Miguelina [facility] POCT-GLUCOSE METER 2021-04-07 23:21:00 Miguelina [facility] APTT 2021-04-07 18:08:00 Miguelina [facility] POCT-GLUCOSE METER 2021-04-07 11:30:00 Miguelina [facility] APTT 2021-04-07 10:09:00 [facility]SE [facility]ER 2021-04-07 06:01:00 [facility] W/PLT COUNT & AUTO 2021-04-07 05:28:00 [facility] Center COMPREHENSIVE METABOLIC 2021-04-07 05:28:00 [facility] 2021-04-07 05:28:[facility] 2021-04-07 05:28:00 [facility] PROTHROMBIN TIME/INR 2021-04-07 05:28:00 [facility] CBC W/PLT COUNT & AUTO 2021-04-07 05:28:00 [facility] POCT-GLUCOSE METER 2021-04-06 23:57:00 [facility] APTT 2021-04-06 22:30:00 Miguelina [facility] 2D ECHO W/ DOPPLER 2021-04-06 12:01:00 Lashon Valladares [facility] (CW/PW/COLOR) [facility] AP[facility] 2021-04-06 09:22:00 Miguelina [facility] CBC W/PLT COUNT & AUTO 2021-04-06 04:38:00 [facility]PRE[facility]ENSIVE METABOLIC 2021-04-06 04:38:00 [facility] PH[facility]US 2021-04-06 04:38:00 [facility] 2021-04-06 04:38:00 [facility] PROTHROMBIN TIME/INR 2021-04-06 04:38:00 [facility] CBC W/PLT COUNT & AUTO 2021-04-06 04:38:00 [facility] APTT 2021-04-06 00:56:[address] Miguel[address] [facility] CT CHEST WITH IV 2021-04-06 00:26:00 Strickman[facility] POCT-GLUCOSE METER 2021-04-05 22:28:00 Miguelina [facility] APTT 2021-04-05 17:54:00 Miguelina [facility] APTT 2021-04-05 12:01:00 Miguelina [facility] POCT-GLUCOSE METER 2021-04-05 06:43:00 Miguelina [facility] CBC W/PLT COUNT & AUTO 2021-04-05 04:17:00 Kwadwo [facility] COMPREHENSIVE METABOLIC 2021-04-05 04:17:00 Kwadwo [facility] PHOSPHORUS 2021-04-05 04:17:00 Kwadwo [facility] MAGNESIUM 2021-04-05 04:17:00 Kwadwo [facility] PROTHROMBIN TIME/INR 2021-04-05 04:17:00 [facility] APTT 2021-04-05 04:17:00 Miguelina [facility] CBC W/PLT COUNT & AUTO 2021-04-05 04:17:00 Kwadwo [facility] POCT-GLUCOSE METER 2021-04-05 00:38:00 Miguelina [facility] ECG 12-LEAD 2021-04-04 23:12:36 Unknown, 7 [facility] ECG 12-LEAD 2021-04-04 23:12:36 Unknown, 7 [facility] ECG 12-LEAD 2021-04-04 23:12:17 Unknown, 7 [facility] ECG 12-LEAD 2021-04-04 23:12:17 Unknown, [address] ECG 12-LEAD 2021-04-04 23:12:00 Unknown, 7 [facility] ECG 12-LEAD 2021-04-04 23:12:00 Unknown, 7 [facility] CBC W/PLT COUNT & AUTO 2021-04-04 06:03:00 [facility] COMPREHENSIVE METABOLIC 2021-04-04 06:03:00 Kwadwo, [facility] PHOSPHORUS 2021-04-04 06:03:00 Kwadwo [facility] MAGNESIUM 2021-04-04 06:03:00 [facility] 2021-04-04 06:03:00 Miguelina [facility] PROTHROMBIN TIME/INR 2021-04-04 06:03:00 [facility] CBC W/PLT COUNT & AUTO 2021-04-04 06:03:00 [facility] HEMOGLOBIN AND 2021-04-03 22:59:00 Miguelina [facility] APTT 2021-04-03 22:59:00 Miguelina [facility] ECG 12-LEAD 2021-04-03 22:17:25 [facility] 12[facility] 2021-04-03 22:17:25 Unknown, Hl7 [facility] PLATELET COUNT 2021-04-03 11:50:00 Miguelina [facility] APTT 2021-04-03 11:50:00 Miguelina [facility] CBC W/PLT COUNT & AUTO 2021-04-03 04:26:00 [facility] COMPREHENSIVE METABOLIC 2021-04-03 04:26:00 [facility] 2021-04-03 04:26:00 [facility]/INR 2021-04-03 04:26:00 [facility] 2021-04-03 04:26:00 [facility] CBC W/PLT COUNT & AUTO 2021-04-03 04:26:00 Kwadwo, [facility] DIFFERENTIAL Center URINALYSIS WITH 2021-04-02 16:55:00 Kwadwo [facility] MICROSCOPIC IF INDICATED Center URINALYSIS MICROSCOPIC 2021-04-02 16:55:00 Kw[facility]wo [facility] BASIC METABOLIC PANEL 2021-04-02 08:46:00 [facility] HEPATIC FUNCTION PANEL 2021-04-02 08:46:00 [facility] [place] PROT[facility]OMBIN TIME/INR 2021-04-02 08:46:00 [facility] [place] CBC W/PLT COUNT & AUTO 2021-04-02 08:46:00 Fox, [facility] DIFFERENTIAL [place] CBC W/PLT COUNT & AUTO 2021-04-02 08:46:00 [facility], [facility] [place] EKG-SCANNED 2021-04-02 00:00:00 [facility] Medical Scanning [place] AUTHORIZATION FOR 2020-02-18 06:01:00 Doctor Unassigned, No Univ [facility] RELEASE OF [facility] COMP. METABOLIC PANEL 2019-09-02 11:21:[address] [facility] ([id number]) [facility] [place] CBC WITH DIFFERENTIAL 2019-09-02 11:21:00 [place] [facility] URINALYSIS 2019-09-02 11:21:00 [place] Mccall [place] f [facility] NOTICE OF PRIVACY 2019-09-02 10:54:46 Doctor Unassigned, No [facility] PRACT[facility] CONSENT/REFUSAL FOR 2019-09-02 10:54:27 Doctor Unassigned, No [facility] DIAGNOSIS AND TREATMENT [facility] [place] PHYSICIAN ORDERS 2019-05-24 05:01:00 Doctor Unassigned, No [facility]IS AUTO 2019-05-04 17:32:00 [facility] DISCLOSURE AND CONSENT, 2019-05-04 06:01:00 Doctor Unassigned, N o [facility] MEDICAL AND SURGICAL Name Medical [facility] nc PROCEDURES POCT URINALYSIS AUTO 2019-04-20 17:08:00 Robbie Cook [facility] ASSIGNMENT OF BENEFITS 2019-04-20 16:53:27 Doctor Unassigned, No [facility] REFERRAL- 2018-10-04 05:01:00 Doctor Unassigned, No [facility] REQUEST/RESPONSE [facility] REFUSAL OF NON-MEDICAL 2018-04-20 06:01:00 Doctor Unassigned, No [facility] SERVICES Name [facility] Plan of Care Planned Activity Planned [...] INFLUENZA VACCINE (Season Ended)] Future Scheduled Test 2022-11-05 INFLUENZA VACCINE [facility] 00:[facility]00 (Season Ended) [code Medical Center = INFLUENZA VACCINE (Season Ended)] Future Scheduled Test 2022-06-09 COVID-19 VACCINE (#1) [facility] 02:57:05 [code = COVID-19 VACCINE (#1)] Future Scheduled Test 2022-06-09 SHINGLES VACCINES (1 [facility] 02:57:05 of 2) [code = SHINGLES VACCINES (1 of 2)] Future Scheduled Test 2022-06-09 65+ PNEUMOCOCCAL Me [facility] 02:57:05 VACCINE (1 - PCV) [code = 65+ PNEUMOCOCCAL VACCINE (1 - PCV)] Future Scheduled Test 2022-06-09 INFLUENZA VACCINE [facility] 02:57:05 [code = INFLUENZA VACCINE] Future Scheduled Test 2022-03-[address] [facility] 00:00:00 (12+) [code = Medical Center DEPRESSION SCREENING (12+)] Future Scheduled Test 2022-03-07 FALLS RISK SCREENING [facility] 00:00:00 [code = FALLS RISK Medical C enter SCREENING] Future Scheduled Test 2022-03-[address] [facility] 00:00:00 (12+) [code = Medical Center DEPRESSION SCREENING (12+)] Future Scheduled Test 2022-03-07 FALLS RISK SCREENING [facility] 00:00:00 [code = FALLS RISK Medical C enter SCREENING] Future Scheduled Test 2022-02-17 COVID-19 VACCINE (#1) [facility] 02:52:34 [code = COVID-19 VACCINE (#1)] Future Scheduled Test 2022-02-17 SHINGLES VACCINES (1 [facility] 02:52:34 of 2) [code = SHINGLES VACCINES (1 of 2)] Future Scheduled Test 2022-02-17 [address] [facility] 02:52:34 VACCINE (1 - PCV) [code = 65+ PNEUMOCOCCAL VACCINE (1 - PCV)] Future Scheduled Test 2022-02-17 INFLUENZA VACCINE [facility] 02:52:34 [code = INFLUENZA VACCINE] Future [...] YEAR if no IPPE)] Future Scheduled Test 2016-11-06 MEDICARE ANNUAL [facility] of 2) [code = [facility] Center SHINGLES VACCINES (1 of 2)] Future Scheduled Test 1983 SHINGLES VACCINES ([address] [facility] 00:00:00 of 2) [code = [facility] Center SHINGLES VACCINES (1 of 2)] Future [...] Department ID 2022-06-29 Outpatient Perry, STLMLC STLC [id number] Common 11:38:01 Shawn [id number] [facility] 2022-05-12 Outpatient [facility] [id number] [place] 21:23:[address] [place] [address] 2021-12-17 Outpatient Perry, STLMLC STLC [id number] Common 08:32:02 Shawn [id number] [facility] [facility] 2021-01-02 Emergency [facility] [id number] Univers 14:31:41 ity [facility] 2021-01-02 Emergency [facility] [id number] Univers 03:17:11 ity [facility] 2020-12-10 Inpatient ER KWJOSE, SLE Surgery [id number] SLE 12:16:46 ZOYA 2020-12-10 Inpatient ER TRACY, STC Gastro [id number] [facility] 12:16[facility]10 [facility] 2022-03-24 2022-03-24 OFFICE STLMLC STLMLC [id number] Co mmon 00:00:00 00:00:00 VISIT EST Spir it PT LEVEL 3 - [facility] 2021-12-17 2021-12-17 OFFICE STLMLC STLMLC [id number] Co mmon 00:00:00 00:00:00 VISIT Spirit ESTAB PT - CHI LEVEL 2 [facility] 2021-09-18 2021-09-18 [facility] [id number]- [facility] 03:02:00 03:02:00 [id number] Medica l Group 2021-09-18 2021-09-18 [facility]patient [facility] [id number] [facility] 00:00:00 00:00:00 [id number] Medica l Group 2021-09-01 2021-09-02 Emergency X Carley BOOKER [facility] ERT [id number] Univers 17:21:00 01:51:00 ity of [facility] 2021-09-01 2021-09-02 Emergency Carley Booker [facility] 1.2.840.114 [id number] Univers 17:21:00 01:51:00 Analy JONES 350.1.13.10 i ty of [place] 4.2.7.2.686 [facility] [phone] [facility] [address] Branch 2021-09-01 2021-09-01 Orders Doctor NIRAV 1.2.840.114 [id number] [facility] 00:00:00 00:00:00 Only Unassigned, KENNETH 350.1.13.10 ity of [facility] 4.2.7.2.686 Bran [id number] [facility] [address] Branch 2021-06-03 2021-06-03 Outpatient DMG DMG [id number]- [facility] 04:03:00 04:03:00 [id number] Medica l Group 2021-05-22 2021-05-22 Outpatient DMG DMG [id number]- [facility] 12:01:00 12:01:00 [id number] Medica l Group 2021-05-13 2021-05-13 Outpatient DMG DMG [id number]- [facility] 12:00:00 12:00:00 Medica l Group 2021-04-02 2021-04-08 Inpatient ER [facility] Urology [id number] [facility] 05:31:00 12:45:00 DAVID 2021-04-02 2021-04-08 Hospital ER Queenie Fox [facility] [id number] [facility] 05:31:00 12:45:00 [facility] 2021-04-06 2021-04-06 [facility] [id number] [facility] 00:00:00 23:59:00 Colleg e of Medicin e 2021-04-03 2021-04-03 Orders [facility] [id number] 00:00:00 00:00:00 [facility] 2021-01-07 2021-01-07 [facility]phone [facility] 1.2.840.114 [id number] Univers 00:00:00 00:00:00 Eduardo L HEALTH 350.1.13.10 it y of [place] 4.2.7.2.686 Bran as ARISTEO?BLEA [phone] Ne delia THOMAS [address] [place] [address] OFFICE [facility] 2021-01-05 2021-01-05 [facility]phone [facility] 1.2.840.114 [id number] Univers 00:00:00 00:00:00 Eduardo Sandhu HEALTH 350.1.13.10 it y of [place] 4.2.7.2.686 Bran as ARISTEO?BLEA [phone] Ne delia THOMAS [address] [place] [address] 2020-10-14 2020-10-14 Telephone [facility] 1.2.840.114 [id number] Univers 00:00:00 00:00:00 Eduardo Sandhu Health 350.1.13.10 it y of Surgical 4.2.7.2.686 Bran as Specialti [phone] Ne dical es 198 [facility] 2020-10-09 2020-10-09 Telephone [facility] 1.2.840.114 [id number] Univers 00:00:00 00:00:00 Eduardo Sandhu Health 350.1.13.10 it y of Surgical 4.2.7.2.686 Bran as Specialti [phone] Ne dical es 198 [facility] 2020-09-11 2020-09-11 [facility] 1.2.840.114 [id number] Univers 00:00:00 00:00:00 Marquis S Health 350.1.13.10 it y of Surgical 4.2.7.2.686 Bran as Specialti [phone] Ne dical es 198 [facility] 2020-08-14 2020-08-14 [facility] 1.2.840.114 [id number] Univers 00:00:00 00:00:00 Marquis S [facility] 350.1.13.10 it y of Surgical 4.2.7.2.686 Bran as Specialti [phone] Me dical es 198 [address] [place] 2020-07-07 2020-07-07 [facility] 1.2.840.114 [id number] 00:00:00 00:00:00 [facility] 350.1.13.10 Surgical 4.2.7.2.686 Specialti [phone] es [address] [place] 2020-07-07 2020-07-07 [facility] 1.2.840.114 [id number] [facility] 00:00:00 00:00:00 [facility] 350.1.13.10 it y of Surgical 4.2.7.2.686 Bran as Specialti [phone] Ne dical es 198 [address] [place] 2020-06-12 2020-06-12 Outpatient Ajibade_O_A VFP VFP [id number] [id number] [facility] 10:56:00 10:56:00 H 60268 [facility] 2020-05-26 2020-05-26 [facility]phone [facility] 1.2.840.114 [id number] 00:00:00 00:00:00 [facility] 350.1.13.10 Surgical 4.2.7.2.686 Specialti [phone] es [address] [place] 2020-05-26 2020-05-26 [place] [facility] 1.2.840.114 [id number] [facility] 00:00:00 00:00:00 [facility] 350.1.13.10 it y of Surgical 4.2.7.2.686 Bran as Specialti [phone] Ne dical es [address] [place] 2020-03-20 2020-03-20 Outpatient Ajibade_O_A VFP VFP [id number] Village 05:22:00 05:22:00 H 50783 Family Practic e 2020-03-20 2020-03-20 Outpatient Ajibade_O_A VFP VFP [id number] [facility] 05:22:00 05:22:00 H 05207 Family [facility] e 2020-03-20 2020-03-20 Outpatient Ajibade_O_A VFP VFP [id number] [id number] [facility] 05:22:00 05:22:00 H 38384 Family Practic e 2020-03-20 2020-03-20 [facility] 1.2.211.068 [id number] 00:00:00 00:00:00 [facility] 350.1.13.10 Surgical 4.2.7.2.686 Specialti [phone] es [address] [place] 2020-03-20 2020-03-20 [facility] 1.2.600.223 [id number] [facility] 00:00:00 00:00:00 [facility] 350.1.13.10 it y of Surgical 4.2.7.2.686 Bran as Specialti [phone] Ne dical es 198 [facility] 2020-03-10 2020-03-10 Outpatient Ajibade_O_A [place] 56575 [id number] [facility] 11:19:00 11:19:00 H 98574 Family Practic e 2020-03-10 2020-03-10 [facility] [place] - [id number] V illage 00:00:00 00:00:00 RoberteLo sandoval Famil y HOOP 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 2020-02-18 2020-02-18 Orders Doctor NIRAV 1.2.840.114 [id number] 00:00:00 00:00:00 Only UnassignedKENNETH 350.1.13.10 [place] [facility] 4.2.7.2.686 [id number] 009 2020-02-18 2020-02-18 Orders Doctor NIRAV 1.2.840.114 [id number] Univers 00:00:00 00:00:00 Only UnassignedKENNETH 350.1.13.10 ity of [place] [facility] 4.2.7.2.686 Bran as [phone] [facility] [address] 2020-01-28 2020-01-28 Telephone Kory [facility] 1.2.109.256 [id number] 00:00:00 00:00:00 [facility] 350.1.13.10 Surgical 4.2.7.2.686 Specialti [id number] es [address] [place] 2020-01-28 2020-01-28 Telephone Kory [facility] 1.2.237.317 [id number] Univers 00:00:00 00:00:00 [facility] 350.1.13.10 it y of Surgical 4.2.7.2.686 Bran as Specialti [phone] Me dical es [address] [place] [address] 2019-12-28 2019-12-28 Emergency ER SLEH Emergency [id number] [facility] 20:07:00 20:07:00 2019-12-21 2019-12-21 [facility]phone [facility] 1.2.840.114 [id number] 00:00:00 00:00:00 Formerly [facility] 350.1.13.10 [place] 4.2.7.2.686 Professio [phone] [address] 2019-12-21 2019-12-21 [facility] 1.2.840.114 [id number] Univers 00:00:00 00:00:00 Formerly [facility] 350.1.13.10 i ty of [place] [phone] Ne dical [address] 2019-12-20 2019-12-20 [facility] [id number] Univers 09:30:00 09:30:00 [facility] 2019-12-10 2019-12-10 [facility] [id number] Univers 15:15:00 15:15:00 [facility] 2019-12-07 2019-12-07 [facility] [id number] Univers 13:00:00 13:00:00 [facility] 2019-12-07 2019-12-07 Nurse Nurse, [facility] 1.2.840.114 [id number] 10:38:50 11:10:03 Visit Surgery [facility] 350.1.13.10 [place] 4.2.7.2.686 Professio [phone] [address] 2019-12-07 2019-12-07 Nurse Nurse, [facility] Surgery [facility] 1.2. 840.114 [id number] Univers 10:38:50 11:10:03 Visit Robbie Cook 350.1.13.10 ity of [place].2.[place] [phone] [address] 2019-11-20 2019-11-20 Nurse Nurse, [facility] 1.2.840.114 [id number] 13:06:00 13:52:14 Visit Surgery Gu [place] 350.1.13.10 [place] 4.2.7.2.686 Professio [phone] [address] 2019-11-20 2019-11-20 Nurse Nurse, [facility] Surgery [facility] 1.2. 840.114 [id number] [facility] 13:06:00 13:52:14 Visit Robbie Cook 350.1.13.10 ity of [place].2.7.2.[place] [phone] [address] 2019-11-20 2019-11-20 Outpatient R JOYCE [facility] [id number] Univers 13:00:00 13:00:00 ROBBIE ity [facility] 2019-11-07 2019-11-07 Nurse Nurse, [facility] 1.2.840.114 [id number] 14:34:31 14:49:31 Visit Surgery Gu [place] 350.1.13.10 [place] 4.2.7.2.686 Professio [phone] [address] 2019-11-07 2019-11-07 Nurse Nurse, [facility] Surgery [facility] 1.2. 840.114 [id number] [facility] 14:34:31 14:49:31 Visit Robbie Cook 350.1.13.10 ity of [place] 4.2.7.2.686 [place] [phone] [address] 2019-11-07 2019-11-07 Outpatient R [facility] [id number] Univers 14:15:00 14:15:00 ity [facility] 2019-11-07 2019-11-07 Outpatient R [facility] [id number] Univers 11:00:00 11:00:00 ity of [facility] 2019-11-01 2019-11-01 Outpatient Ajibade_O_A VFP VFP [address] [place] [address] 04:47:00 04:47:00 H 58792 Family Practic e 2019-09-24 2019-09-24 Office [facility] 1.2.840.114 [id number] 15:17:44 17:03:35 Visit Robbie [place] 350.1.13.10 [place] 4.2.7.2.686 Professio [phone] [address] 2019-09-24 2019-09-24 Office [facility] 1.2.840.114 [id number] Univers 15:17:44 17:03:35 Visit Robbie [place] 350.1.13.10 i ty of [place].2.7.2.[place] [phone] Ne dic[address] 2019-09-24 2019-09-24 Outpatient R [facility] [id number] Univers 16:00:00 16:00:00 ROBBIE ity [facility] 2019-09-21 2019-09-21 Office [facility] 1.2.840.114 [id number] Univers 15:33:57 16:14:10 Visit Robbie [place] 350.1.13.10 i ty of [place] 4.2.7.2.[place] [phone] [address] 2019-09-21 2019-09-21 Outpatient R [facility] [id number] Univers 16:00:00 16:00:00 ROBBIE ity [facility] 2019-09-19 2019-09-19 Nurse Nurse, Adc Surgery [facility] 1.2. 840.114 [id number] Univers 10:50:18 11:21:35 Visit Robbie [place] 350.1.13.10 ity of [place] 4.2.7.2.[place] [phone] Ne dic[address] 2019-09-19 2019-09-19 Outpatient R [facility] [id number] Univers 10:45:00 10:45:00 ity of [facility] 2019-09-17 2019-09-17 [facility] 1.2.009.848 [id number] 00:00:00 00:00:00 Eduardo Sandhu [facility] 350.1.13.10 Surgical 4.2.7.2.686 Specialti [phone] es [address] [place] 2019-09-17 2019-09-17 [facility] 1.2.860.274 [id number] Univers 00:00:00 00:00:00 Eduardo Sandhu Health 350.1.13.10 it y of Surgical 4.2.7.2.686 Bran as Specialti [phone] [facility] 198 [facility] 2019-09-02 2019-09-02 Emergency [facility] 1.2.497.744 [id number] Univers 05:59:14 07:38:00 Chicoparul Jones 350.1.13.10 i ty of [place] 4.2.7.2.686 [place] [facility] [phone] [facility] [address] 2019-09-02 2019-09-02 Orders Doctor NIRAV 1.2.840.114 [id number] Univers 00:00:00 00:00:00 Only Unassigned, KENNETH 350.1.13.10 ity of [place] [facility] 4.2.7.2.686 Bran as [phone] [facility] [address] 2019-08-30 2019-08-30 Telephone [facility] 1.2.840.114 [id number] Univers 00:00:00 00:00:00 Eduardo Sandhu [facility] 350.1.13.10 it y of Surgical 4.2.7.2.686 Bran as Specialti [phone] [facility] 198 [facility] 2019-08-24 2019-08-24 [facility] [id number] Univers 14:00:00 14:00:00 ROBBIE ity [facility] 2019-08-10 2019-08-10 Office [facility] 1.2.840.114 [id number] Univers 15:15:27 16:21:06 Visit Robbie Jones 350.1.13.10 i ty of [place] 4.2.7.2.[place] [phone] [address] 2019-08-10 2019-08-10 Outpatient R JOYCE [facility] [id number] Univers 16:00:00 16:00:00 ROBBIE ity of [facility] 2019-07-23 2019-07-23 [facility] [id number] Univers 10:00:00 10:00:00 ROBBIE ity of [facility] 2019-07-09 2019-07-09 Office [facility] 1.2.840.114 [id number] Univers 10:27:37 11:55:27 Visit Robbie Jones 350.1.13.10 i ty of [place] 4.2.7.2.[place] [phone] [address] 2019-07-09 2019-07-09 [facility] [id number] Univers 11:00:00 11:00:00 ORBBIE ity of [facility] 2019-07-04 2019-07-04 Outpatient R [facility] [id number] Univers 09:00:00 09:00:00 ity of [facility] 2019-07-03 2019-07-03 Outpatient R [facility] [id number] Univers 10:00:00 10:00:00 ity of [facility] 2019-07-03 2019-07-03 Nurse Nurse, [facility] Surgery [facility] 1.2. 840.114 [id number] Univers 09:29:30 09:53:59 Visit Robbie Cook 350.1.13.10 ity of [place] 4.2.7.2.[place] [phone] [address] 2019-06-18 2019-06-18 Telephone [facility] 1.2.840.114 [id number] Univers 00:00:00 00:00:00 [facility] 350.1.13.10 it y of Surgical 4.2.7.2.686 Bran as Specialti [phone] Ne dical es 198 [facility] 2019-06-06 2019-06-06 Nurse Nurse, [facility] Surgery [facility] 1.2. 840.114 [id number] Univers 09:58:45 10:28:51 Visit Robbie Cook 350.1.13.10 ity of [place] 4.2.7.2.686 [place] [phone] Ne dical nal 204 [facility] 2019-06-06 2019-06-06 Outpatient R [facility] [id number] Univers 09:45:00 09:45:00 ROBBIE ity of [facility] 2019-06-06 2019-06-06 Telephone [facility] 1.2.638.836 [id number] Univers 00:00:00 00:00:00 Gloria Fernandez Mireille 350.1.13.10 ity of [place] 4.2.7.2.686 [place] [phone] Ne dical nal 377 [facility] 2019-05-24 2019-05-24 Outpatient R [facility] [id number] Univers 16:15:00 16:15:00 ROBBIE ity of [facility] 2019-05-24 2019-05-24 Office [facility] 1.2.840.114 [id number] Univers 12:43:32 14:03:24 Visit Former[facility] 350.1.13.10 i ty of [place] 4.2.7.2.686 [place] [phone] Ne dical [facility] 204 [facility] 2019-05-24 2019-05-24 Outpatient R [facility] [id number] Univers 13:00:00 13:00:00 ROBBIE ity of [facility] 2019-05-24 2019-05-24 Orders Doctor GASTELUM 1.2.840.114 [id number] Univers 00:00:00 00:00:00 Only Unassigned, KENNETH 350.1.13.10 ity of [place] [facility] 4.2.7.2.686 Bran as [phone] [address] 2019-05-21 2019-05-21 [facility]phone [facility] 1.2.840.114 [id number] Univers 00:00:00 00:00:00 [facility] 350.1.13.10 it y of Surgical 4.2.7.2.686 Bran as Specialti [phone] Ne dical es 198 [facility] 2019-05-04 2019-05-04 Office [facility] 1.2.840.114 [id number] Univers 11:01:36 12:30:18 Visit Rm, Adc Surg Spec Procedure [place] 3 50.1.13.10 ity of [place] 4.2.7.2.[place] [phone] Ne dical nal 204 [facility] 2019-05-04 2019-05-04 Outpatient R [facility] [id number] Univers 11:00:00 11:00:00 ROBBIE ity [facility] 2019-05-04 2019-05-04 Orders Doctor NIRAV 1.2.840.114 [id number] Univers 00:00:00 00:00:00 Only Unassigned, KENNETH 350.1.13.10 ity of [place] [facility] 4.2.7.2.686 Bran as [phone] [address] 2019-04-25 2019-04-25 Outpatient [facility] VF 796 [id number] [facility] 07:22:00 07:22:00 _J_AH 63159 Family Practic e 2019-04-24 2019-04-24 Outpatient [facility] [id number] [address] [place] [address] 00:00:00 00:00:00 JULIET Martinez Method i st 2019-04-23 2019-04-23 Telephone [facility] 1.2.840.114 [id number] Univers 00:00:00 00:00:00 Formerly [facility] 350.1.13.10 i ty of [place] 4.2.7.2.[place] [phone] [facility] 204 [facility] 2019-04-20 2019-04-20 Outpatient R [facility] [id number] Univers 11:00:00 12:03:25 ROBBIE ity [facility] 2019-04-20 2019-04-20 Office [facility] 1.2.840.114 [id number] Univers 10:57:47 12:03:25 Visit Robbie Jones 350.1.13.10 i ty of [place] 4.2.7.2.686 [place] [phone] Ne dical nal 204 [facility] 2019-04-20 2019-04-20 Orders Doctor NIRAV 1.2.840.114 [id number] Univers 00:00:00 00:00:00 Only Unassigned, KENNETH 350.1.13.10 ity of [place] [facility] 4.2.7.2.686 Bran as [phone] [address] 2018-10-31 2018-10-31 [facility]ill [facility] 1.2.933.984 [id number] Univers 00:00:00 00:00:00 Eduardo [employer] 350.1.13.10 it y of Surgical 4.2.7.2.686 Bran as Specialti [phone] Ne dical es 198 [facility] 2018-10-06 2018-10-06 Office [facility] 1.2.144.620 [id number] Univers 08:24:12 09:20:41 Visit [facility] [employer] 350.1.13.10 it y of Surgical 4.2.7.2.686 Bran as Specialti [phone] [facility] 198 [facility] 2018-10-04 2018-10-04 Orders Doctor NIRAV 1.2.840.114 [id number] Univers 00:00:00 00:00:00 Only Unassigned, KENNETH 350.1.13.10 ity of [place] [facility] 4.2.7.2.686 Bran as [phone] [address] 2018-04-20 2018-04-20 Orders Doctor NIRAV 1.2.840.114 [id number] Univers 00:00:00 00:00:00 Only Unassigned, KENNETH 350.1.13.10 ity of [place] [facility] 4.2.7.2.686 Bran as [phone] [address] 2015-02-10 2015-02-10 Outpatient WOLFGANG VALLADARES [facility] [id number] [facility] 16:05:13 17:30:32 LASHON holm of Medicin e [...] 32.2 g/dL 31.2-35.0 RDW-SD (test code = 64670-8) 43.8 fL 38.5-51.6 RDW-CV (test code = 788-0) 12.9 % 12.1-15.4 PLT (test code = 777-3) See_Comment [Au tomated message] The system which ge nerated this result transmit dena reference range: 150 - 32 8 10*3/?L. The reference range was not used to interpret th is result as normal/abnormal . MPV (test code = 62949-9) 11.2 fL 9.8-13.0 NRBC/100 WBC (test code = See_Comment [ Automated message] The 8853697116) system which ge nerated this result transmit dena reference range: 0.0 - 10 .0 /100 WBCs. The reference r nela was not used to interpr et this result as normal/abnor mal. NRBC x10^3 (test code = <0.01 See_Comment [Au tomated message] The 7827031375) system which ge nerated this result transmit dena reference range: 10*3/?L. The reference range was not u sed to interpret this result as normal/abnormal . SEG % (test code = 86279-1) 36 % 33-76 BAND % (test code = 98128-4) 2 % 0-1 H LYMPH % (test code = 50 % 14-54 68310-6) MONO % (test code = 22152-0) 7 % 0-4 H EOS % (test code = 33015-2) 5 % 0-3 H ANC (test code = 753-4) 3.25 10*3/uL 1.99-6.95 Lab Interpretation (test Abnormal code = 03289-6) [facility] [id number] 00:12:52 Test Item Value Reference Interpretation Comments Range TROPONIN I (test 0.004 ng/mL See_Comment [Automated code = 5458805793) message] The system which generated this result [...] biotin. Lab Interpretation Normal (test code = 39447-6) [facility] [id number] 00:09:50 Test Item Value Reference Range Interpretation Comments NT-proBNP (test code 774 pg/mL See_Comment H [Autom ated = 8614127589) message] The system which generated this result transmitted reference range : <=450. The reference range was not used to interpret this result as normal/abnormal . JETT (test code = JETT) Biotin has been reported to cause a negative bias, interpret results relative to patient's use of biotin. Lab Interpretation Abnormal (test code = 27168-9) [facility]ACTIV[facility] PARTIAL THRMPLAS [id number] 00:03:30 Test Item Value Reference Range Interpretation Comments APTT Patient (test See_Comment [Automat ed code = 3173-2) message] The system which generated this result transmitted reference range : 23 - 38 Seconds . The reference range was not used to interpr et this result as normal/abnormal . JETT (test code = JETT) The [facility] patient population mean normal value for aPTT is 30 seconds. Lab Interpretation Normal (test code = 10759-1) [facility]2022-06-29 00:02:09 Test Item Value Reference Range Interpretation Comments MAGNESIUM (test code = 2564518369) 2.1 mg/dL 1.7-2.4 Lab Interpretation (test code = Normal 39845-5) [facility] RegionalCOMP. METABOLIC PANEL (42759)2021-09-02 00:01:48 Test Item Value Reference Range Interpretation Comments NA (test code = 142 mmol/L 135-145 1432763595) K (test code = 4.1 mmol/L 3.5-5.0 4947138987) CL (test code = 107 mmol/L 98-108 1758014192) CO2 TOTAL (test code = 27 mmol/L 23-31 6675872194) AGAP (test code = 2-16 1043939468) BUN (test code = 21 mg/dL 7-23 6748798560) GLUCOSE (test code = 135 mg/dL 70-110 H 5306073261) CREATININE (test code = 1.08 mg/dL 0.60-1.25 5442208173) TOTAL BILI (test code = 0.5 mg/dL 0.1-1.0 4994513451) CALCIUM (test code = 8.7 mg/dL 8.6-10.6 4516042304) T PROTEIN (test code = 6.3 g/dL 6.3-8.2 5024222251) ALBUMIN (test code = 3.8 g/dL 3.5-5.0 9464768974) ALK PHOS (test code = 77 U/L 34-122 4114325576) ALTv (test code = 23 U/L 50 1742-6) AST(SGOT) (test code = 29 U/L 13-40 3238338634) eGFR (test code = mL/min/1.73m2 8737181732) JETT (test code = JETT) Association of [...] tests). Lab Interpretation Abnormal (test code = 01138-8) [facility] / [id number] 00:01:28 Test Item Value Reference Range Interpretation Comments PROTIME PATIENT (test See_Comment H [Auto mated message] code = 5964-2) The system [employer] generated this result transmitted ref erence range: 12.0 - 1 4.7 Seconds. The reference range was not used to int erpret this result as normal/abnormal . INR (test code = 6301-6) Nor mal INR <1.1; Warfarin Therap eutic range 2.0 to 3. 0 or 2.5 to 3.5, dep ending upon the indica tions. Lab Interpretation (test Abnormal code = 27017-4) Corpus [facility]:31[facility]43 Test Item Value Reference Range Interpretation Comments PTT (test code = 87.5 See_Comment H [Automated message] 44497-4) The system Du[employer] generated this result transmitted ref erence range: 22.5 - 3 6.0 seconds. The reference range was not used to int erpret this result as normal/abnormal . Lab Interpretation (test Abnormal code = 11029-0) [facility] Test Item Value Reference Range Interpretation Comments PARTIAL THROMBOPLASTIN TIME 87.5 seconds 22.5-36.0 H (BEAKER) (test code = 760) [id number] 07:07:31 Test Item Value Reference Range Interpretation Comments Magnesium (test code = 2.0 mg/dL 1.6-2.6 45505-8) JETT (test code = JETT) Acid Strength Inspector ID - MERON L Lab Interpretation (test Normal code = 19679-3) [facility] 07:07:31 Test Item Value Reference Range Interpretation Comments Phosphorus (test code = 3.9 mg/dL 2.3-4.7 2777-1) JETT (test code = JETT) Acid Strength Inspector ID - PIAYA L Lab Interpretation (test Normal code = 26185-3) [facility] 07:07:31 Test Item Value Reference Range Interpretation Comments MAGNESIUM (BEAKER) (test code = 2.0 mg/dL 1.6-2.6 627) Acid Strength Inspector ID - PIENRIKE [id number] 07:07:31 Test Item Value Reference Range Interpretation Comments PHOSPHORUS (BEAKER) (test code = 3.9 mg/dL 2.3-4.7 604) Acid Strength Inspector ID - MERON LComprehensive metabolic [id number] 07:07:30 Test Item Value Reference Range Interpretation Comments Protein, Total (test 6.0 See_Comment [Autom ated code = 2885-2) message] The system which generated this result transmit dena reference range : 6.0 - 8.3 gm/dL . The reference range was not u sed to interpret th is result as normal/abnormal . Albumin (test code = 3.4 g/dL 3.5-5.0 L 35998-6) Alkaline Phosphatase 53 U/L 40-150 (test code = 6768-6) Total Bilirubin (test 0.7 mg/dL 0.2-1.2 code = 1974-2) Sodium (test code = 141 meq/L 861-826 4565-2) Potassium (test code 3.9 meq/L 3.5-5.1 = 2823-3) Chloride (test code = 111 meq/L 98-107 H 2075-0) CO2 (test code = 25 meq/L 22-29 2028-9) BUN (test code = 15 mg/dL 7-21 3094-0) Creatinine (test code 0.83 mg/dL 0.57-1.25 = 2160-0) Glucose (test code = 97 mg/dL 70-105 2345-7) Calcium (test code = 8.8 mg/dL 8.4-10.2 61231-6) AST (test code = 18 U/L 5-34 1920-8) ALT (test code = 16 U/L 6-55 1742-6) EGFR (test code = 87 mL/min/1.73 [place] [address]-6) NOT ACCURATE CREATININE CLEARANCE IN PREDICTING GLOMERULAR FILTRATION RATE . ESTIMATED GFR I S NOT APPLICABLE FOR DIALYSIS PATIEN TSJt JETT (test code = JETT) Acid Strength Inspector ID - PIAYA L Lab Interpretation Abnormal (test code = 27675-4) [facility] [id number] 07:07:30 Test Item Value Reference Range Interpretation [...] S NOT APPLICABLE FOR DIALYSIS PATIEN TS. Acid Strength Inspector ID - MERON [id number] 06:38:29 Test Item Value Reference Range Interpretation Comments PARTIAL THROMBOPLASTIN TIME 115.6 seconds 22.5-36.0 H (BEAKER) (test code = 760) CBC with platelet count + automated [id number] 06:16:50 Test Item Value Reference Range Interpretation Comments WBC (test code = 6690-2) 8.1 See_Comment [A utomated message] The system [employer] generated this result transmitted ref erence range: 3.5 - 10 .5 K/L. The refe rence range was not u sed to interpret this result as normal/abnor mal. RBC (test code = 789-8) 4.07 See_Comment L [Au tomated message] The system [employer] generated this result transmitted ref erence range: 4.63 - 6 .08 M/L. The refe rence range was not u sed to interpret this result as normal/abnor mal. MCHC (test code = 786-4) 32.2 See_Comment L [A utomated message] The system [employer] generated this result transmitted ref erence range: [...] See_Comment [Aut omated message] 777-3) The system [employer] generated this result transmitted ref erence range: 150 - 45 0 K/CU MM. The referen ce range was not u sed to interpret this result as normal/abnor mal. MPV (test code = 11.2 fL 9.4-12.4 04349-1) nRBC (test code = 413) 0 See_Comment [Aut omated message] The system [employer] generated this result transmitted ref erence range: [...] See_Comment [Aut omated message] 670) The system [employer] generated this result transmitted ref erence range: 1.78 - 5 .38 K/L. The refe rence range was not u sed to interpret this result as normal/abnor mal. # Lymphs (test code = 2.81 See_Comment [Auto mated message] 414) The system [employer] generated this result transmitted ref erence range: 1.32 - 3 .57 K/L. The refe rence range was not u sed to interpret this result as normal/abnor mal. # Monos (test code = 0.65 See_Comment [Autom ated message] 415) The system [employer] generated this result transmitted ref erence range: 0.30 - 0 .82 K/L. The refe rence range was not u sed to interpret this result as normal/abnor mal. # Eos (test code = 416) 0.40 See_Comment [Au tomated message] The system [employer] generated this result transmitted ref erence range: 0.04 - 0 .54 K/L. The refe rence range was not u sed to interpret this result as normal/abnor mal. # Baso (test code = 417) 0.09 See_Comment H [A utomated message] The system [employer] generated this result transmitted ref erence range: 0.01 - 0 .08 K/L. The refe rence range was not u sed to interpret this result as normal/abnor mal. Immature 1 % 0-1 Granulocytes-Relative (test code = 2801) Lab Interpretation (test Abnormal code = 76751-8) [facility] W/PLT COUNT & AUTO [id number] 06:16:50 Test Item Value Reference Range Interpretation [...] = 2801) Daily Prothrombin time/INR while on [id number] 06:13:51 Test Item Value Reference Interpretation Comments Range Protime (test code = 20.5 See_Comment H [Autom ated 9482-2) message] The system which generated this result [...] valves. Lab Interpretation Abnormal (test code = 09247-8) [facility] HospitalPROTHROMBIN TIME/[id number] 06:13:51 Test Item Value Reference Range Interpretation Comments PROTIME (BEAKER) 20.5 seconds 11.9-14.2 H (test code = 759) INR (BEAKER) (test 1.78 See_Comment [Automat ed message] code = 370) The system [employer] generated this result transmitted ref erence range: <=5.90. The reference range was not used to int erpret this result as normal/abnormal . RECOMMENDED COUMADIN/WARFARIN INR THERAPY RANGESSTANDARD DOSE: 2.0 - 3.0 Includes: PROPHYLAXIS for venous thrombosis, systemic embolization; TREATMENT for venous thrombosis and/or pulmonary embolus.HIGH RISK: Target INR is 2.5-3.5 for patients with mechanical heart valves.[id number] 01:58:38 Test Item Value Reference Range Interpretation Comments PARTIAL THROMBOPLASTIN TIME 88.8 seconds 22.5-36.0 H (BEAKER) (test code = 760) POC-Glucose [id number] 23:44:39 Test Item Value Reference Range Interpretation Comments POC-Glucose Meter (test 103 mg/dL 70-110 : TE STED AT [facility] code = 1538) [address] [facility], 770 30: Acid Strength Inspector/Techni cory ID = [id number] for Ashley Waller Lab Interpretation (test Normal code = 12253-0) [facility] HospitalPOCT-GLUCOSE [id number] 23:44:39 Test Item Value Reference Range Interpretation Comments POC-GLUCOSE METER 103 mg/dL 70-110 : TESTED A T [facility] 6720 (BEAKER) (test code = [facility], 1538) [address]: Acid Strength Inspector/Techni cory ID = [id number] for Ashley Garcia [id number] 18:49:14 Test Item Value Reference Range Interpretation Comments PARTIAL THROMBOPLASTIN TIME 62.6 seconds 22.5-36.0 H (BEAKER) (test code = 760) POCT-GLUCOSE [id number] 11:52:36 Test Item Value Reference Range Interpretation Comments POC-GLUCOSE METER 88 mg/dL 70-110 : [facility] (BE[facility]ER[facility] (test code = [facility], 1538) [address]: Acid Strength Inspector/Techni cory ID = [id number] for MARISELA KELLOGG [id number] 10:29:13 Test Item Value Reference Range Interpretation Comments PARTIAL THROMBOPLASTIN TIME 95.0 seconds 22.5-36.0 H (BEAKER) (test code = 760) [id number] 09:21:32 Test Item Value Reference Range Interpretation Comments PHOSPHORUS (BEAKER) (test code = 3.9 mg/dL 2.3-4.7 604) Acid Strength Inspector ID Justine CHANCE LCOMPREHENSIVE METABOLIC [id number] 09:21:31 Test Item Value Reference Range Interpretation [...] S NOT APPLICABLE FOR DIALYSIS PATIEN TS. Acid Strength Inspector ID - MERON [id number] 09:21:31 Test Item Value Reference Range Interpretation Comments MAGNESIUM (BEAKER) (test code = 2.0 mg/dL 1.6-2.6 627) Acid Strength Inspector ID - MERON LPROTHROMBIN TIME/[id number] 06:28:22 Test Item Value Reference Range Interpretation Comments PROTIME (BEAKER) 16.4 seconds 11.9-14.2 H (test code = 759) INR (BEAKER) (test 1.35 See_Comment [Automat ed message] code = 370) The system [employer] generated this result transmitted ref erence range: <=5.90. The reference range was not used to int erpret this result as normal/abnormal . RECOMMENDED COUMADIN/WARFARIN INR THERAPY RANGESSTANDARD DOSE: 2.0 - 3.0 Includes: PROPHYLAXIS for venous thrombosis, systemic embolization; TREATMENT for venous thrombosis and/or pulmonary embolus.HIGH RISK: Target INR is 2.5-3.5 for patients with mechanical heart valves.CBC W/PLT COUNT & AUTO [id number] 06:24:34 Test Item Value Reference Range Interpretation [...] PERCENT (BEAKER) (test code = 2801) POCT-GLUCOSE [id number] 06:13:53 Test Item Value Reference Range Interpretation Comments POC-GLUCOSE METER 100 mg/dL 70-110 : TESTED A T [facility] 6720 (BEAKER) (test code = [facility], 1538) [address]: Acid Strength Inspector/Techni cory ID = [id number] for Ashley Garcia POCT-GLUCOSE [id number] 00:08:35 Test Item Value Reference Range Interpretation Comments POC-GLUCOSE METER 100 mg/dL 70-110 : TESTED A T [facility] 6720 (BEAKER) (test code = [facility], 1538) [address]: Acid Strength Inspector/Techni cory ID = [id number] for Ashley Garcai [id number] 23:35:31 Test Item Value Reference Range Interpretation Comments PARTIAL THROMBOPLASTIN TIME 109.7 seconds 22.5-36.0 H (BEAKER) (test code = 760) 2D Echo W/Doppler(CW/PW/Color)2021-04-06 17:15:30Ejection FractionSLEH ECHO HEARTLAB MKCKESSON [facility] 09:46:56 Test Item Value Reference Range Interpretation Comments PARTIAL THROMBOPLASTIN TIME 33.2 seconds 22.5-36.0 (BEAKER) (test code = 760) CT, CHEST, WITH [id number] 08:40:00Unlisted Reason for Exam - Click Yes and Enter Reason Below->Yespost TAVRUnlisted 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 Signed: Hudson Polanco MDRepsaint joseph hospital west Verified Date/Time: 04/06/2021 08:40:10 REHENSIVE METABOLIC [id number] 06:21:48 Test Item Value Reference Range Interpretation [...] S NOT APPLICABLE FOR DIALYSIS PATIEN TS. Acid Strength Inspector ID - PIENRIKE LOperator ID - [id number] 05:55:52 Test Item Value Reference Range Interpretation Comments PHOSPHORUS (BEAKER) (test code = 4.2 mg/dL 2.3-4.7 604) Acid Strength Inspector ID - PIENRIKE [id number] 05:55:51 Test Item Value Reference Range Interpretation Comments MAGNESIUM (BEAKER) (test code = 2.0 mg/dL 1.6-2.6 627) Acid Strength Inspector ID - PIAYA LPROTHROMBIN TIME/[id number] 05:31:15 Test Item Value Reference Range Interpretation Comments PROTIME (BEAKER) 14.4 seconds 11.9-14.2 H (test code = 759) INR (BEAKER) (test 1.14 See_Comment [Automat ed message] code = 370) The system [employer] generated this result transmitted ref erence range: <=5.90. The reference range was not used to int erpret this result as normal/abnormal . RECOMMENDED COUMADIN/WARFARIN INR THERAPY RANGESSTANDARD DOSE: 2.0 - 3.0 Includes: PROPHYLAXIS for venous thrombosis, systemic embolization; TREATMENT for venous thrombosis and/or pulmonary embolus.HIGH RISK: Target INR is 2.5-3.5 for patients with mechanical heart valves.CBC W/PLT COUNT & AUTO [id number] 05:15:40 Test Item Value Reference Range Interpretation [...] 0-1 PERCENT (BEAKER) (test code = 2801) [id number] 02:49:42 Test Item Value Reference Range Interpretation Comments PARTIAL THROMBOPLASTIN TIME 43.7 seconds 22.5-36.0 H (BEAKER) (test code = 760) POCT-GLUCOSE [id number] 22:40:25 Test Item Value Reference Range Interpretation Comments POC-GLUCOSE METER 95 mg/dL 70-110 : TESTED A T [facility] 6720 (BEAKER) (test code = [place], 1538) [address]: Acid Strength Inspector/Techni cory ID = [id number] for Rojelio murphy (Alba Servin [id number] 18:10:18 Test Item Value Reference Range Interpretation Comments PARTIAL THROMBOPLASTIN TIME 109.1 seconds 22.5-36.0 H (BEAKER) (test code = 760) [id number] 12:21:05 Test Item Value Reference Range Interpretation Comments PARTIAL THROMBOPLASTIN TIME 70.1 seconds 22.5-36.0 H (BEAKER) (test code = 760) POCT-GLUCOSE [id number] 06:54:14 Test Item Value Reference Range Interpretation Comments POC-GLUCOSE METER 93 mg/dL 70-110 : TESTED A T [facility] 6720 (BEAKER) (test code = [facility] [facility], 1538) [address]: Acid Strength Inspector/Techni cory ID = [id number] for Ela Hilario [id number] 05:14:19 Test Item Value Reference Range Interpretation Comments PARTIAL THROMBOPLASTIN TIME 85.7 seconds 22.5-36.0 H (BEAKER) (test code = 760) PROTHROMBIN TIME/[id number] 05:12:27 Test Item Value Reference Range Interpretation Comments PROTIME (BEAKER) 14.5 seconds 11.9-14.2 H (test code = 759) INR (BEAKER) (test 1.15 See_Comment [Automat ed message] code = 370) The system [employer] generated this result transmitted ref erence range: [...] S NOT APPLICABLE FOR DIALYSIS PATIEN TS. Acid Strength Inspector ID - [id number] 05:05:36 Test Item Value Reference Range Interpretation Comments MAGNESIUM (BEAKER) (test code = 2.0 mg/dL 1.6-2.6 627) Acid Strength Inspector ID - [id number] 05:05:36 Test Item Value Reference Range Interpretation Comments PHOSPHORUS (BEAKER) (test code = 3.8 mg/dL 2.3-4.7 604) Acid Strength Inspector ID - DBCBC W/PLT COUNT & AUTO [id number] 04:29:42 Test Item Value Reference Range Interpretation [...] PERCENT (BEAKER) (test code = 2801) POCT-GLUCOSE [id number] 00:54:16 Test Item Value Reference Range Interpretation Comments POC-GLUCOSE METER 94 mg/dL 70-110 : TESTED A T [facility] 6720 (BEAKER) (test code = [facility] [place] [place] [facility], 1538) [address]: Acid Strength Inspector/Techni cory ID = [id number] for Ela Hilario PROTHROMBIN TIME/[id number] 09:53:09 Test Item Value Reference Range Interpretation Comments PROTIME (BEAKER) 15.4 seconds 11.9-14.2 H (test code = 759) INR (BEAKER) (test 1.24 See_Comment [Automat ed message] code = 370) The system [employer] generated this result transmitted ref erence range: <=5.90. The reference range was not used to int erpret this result as normal/abnormal . RECOMMENDED COUMADIN/WARFARIN INR THERAPY RANGESSTANDARD DOSE: 2.0 - 3.0 Includes: PROPHYLAXIS for venous thrombosis, systemic embolization; TREATMENT for venous thrombosis and/or pulmonary embolus.HIGH RISK: Target INR is 2.5-3.5 for patients with mechanical heart valves.[id number] 07:06:20 Test Item Value Reference Range Interpretation Comments PHOSPHORUS (BEAKER) (test code = 3.0 mg/dL 2.3-4.7 604) Acid Strength Inspector ID Justine LUBIN WCOMPREHENSIVE METABOLIC [id number] 07:06:19 Test Item Value Reference Range Interpretation [...] S NOT APPLICABLE FOR DIALYSIS PATIEN TS. Acid Strength Inspector INO LUBIN [id number] 07:06:19 Test Item Value Reference Range Interpretation Comments MAGNESIUM (BEAKER) (test code = 2.0 mg/dL 1.6-2.6 627) Acid Strength Inspector ID - TRISTIAN [id number] 06:30:10 Test Item Value Reference Range Interpretation Comments PARTIAL THROMBOPLASTIN TIME 76.4 seconds 22.5-36.0 H (BEAKER) (test code = 760) CBC W/PLT COUNT & AUTO [id number] 06:21:06 Test Item Value Reference Range Interpretation [...] 0-1 PERCENT (BEAKER) (test code = 2801) [id number] 23:26:41 Test Item Value Reference Range Interpretation Comments PARTIAL THROMBOPLASTIN TIME 81.1 seconds 22.5-36.0 H (BEAKER) (test code = 760) Hemoglobin and [id number] 23:26:00 Test Item Value Reference Range Interpretation [...] = 4544-3) JETT (test code = JETT) Acid Strength Inspector ID - [id number] ID - [id number] Lab Interpretation Abnormal (test code = 27936-2) [facility] HospitalHEMOGLOBIN AND [id number] 23:26:00 Test Item Value Reference Range Interpretation Comments HEMOGLOBIN (BEAKER) (test code = 11.6 GM/DL 13.7-17.5 L 410) HEMATOCRIT (BEAKER) (test code = 35.4 % 40.1-51.0 L 411) Acid Strength Inspector ID - [id number] ID - [id number] 12:04:57 Test Item Value Reference Range Interpretation Comments PARTIAL THROMBOPLASTIN TIME 32.2 seconds 22.5-36.0 (BEAKER) (test code = 760) Platelet [id number] 12:03:08 Test Item Value Reference Range Interpretation Comments Platelets (test code 110 See_Comment L [Autom ated = 777-3) message] The system which generated this result transmit dena reference range : 150 - 450 K/CU MM. The reference range was not u sed to interpret th is result as normal/abnormal . JETT (test code = JETT) Acid Strength Inspector ID - [id number] ID - [id number] Lab Interpretation Abnormal (test code = 18945-2) [facility] HospitalPLATELET [id number] 12:03:08 Test Item Value Reference Range Interpretation Comments PLATELET COUNT (BEAKER) (test 110 K/CU MM 150-450 L code = 756) Acid Strength Inspector ID - 6000Operator ID - [id number] 05:25:05 Test Item Value Reference Range Interpretation Comments PHOSPHORUS (BEAKER) (test code = 2.2 mg/dL 2.3-4.7 L 604) Acid Strength Inspector ID - PIAYA LCOMPREHENSIVE METABOLIC [id number] 05:25:04 Test Item Value Reference Range Interpretation [...] S NOT APPLICABLE FOR DIALYSIS PATIEN TS. Acid Strength Inspector ID - MERON [id number] 05:25:04 Test Item Value Reference Range Interpretation Comments MAGNESIUM (BEAKER) (test code = 2.0 mg/dL 1.6-2.6 627) Acid Strength Inspector ID - MERON LCBC W/PLT COUNT & AUTO [id number] 05:07:55 Test Item Value Reference Range Interpretation [...] PERCENT (BEAKER) (test code = 2801) PROTHROMBIN TIME/[id number] 05:04:30 Test Item Value Reference Range Interpretation Comments PROTIME (BEAKER) 16.7 seconds 11.9-14.2 H (test code = 759) INR (BEAKER) (test 1.37 See_Comment [Automat ed message] code = 370) The system [facility] generated this result transmitted ref erence range: <=5.90. The reference range was not used to int erpret this result as normal/abnormal . RECOMMENDED COUMADIN/WARFARIN INR THERAPY RANGESSTANDARD DOSE: 2.0 - 3.0 Includes: PROPHYLAXIS for venous thrombosis, systemic embolization; TREATMENT for venous thrombosis and/or pulmonary embolus.HIGH RISK: Target INR is 2.5-3.5 for patients with mechanical heart valves.Urinalysis Microscopic [id number] 17:49:35 Test Item Value Reference Range Interpretation Comments RBC, UA (test 149 See_Comment [Automated me ssage] code = 87657-7) The system [facility] generated this result transmit dena reference range : /HPF. The refer ence range was not u sed to interpret th is result as normal/abnormal . WBC, UA (test 72 See_Comment [Automated me ssage] code = 5821-4) The system [facility] generated this result transmit dena reference range : /HPF. The refer ence range was not u sed to interpret th is result as normal/abnormal . Bacteria, UA Occasional (test code = 08697-2) Mucus (test Few code = 8247-9) Crystals, Urine None Seen (test code = 18958-6) JETT (test code Acid Strength Inspector ID - tech = JETT) [facility]INAL[facility]IS [id number] 17:49:35 Test Item Value Reference Range Interpretation Comments RBC UA (BEAKER) (test code = 519) 149 /HPF WBC UA (BEAKER) (test code = 520) 72 /HPF BACTERIA (BEAKER) (test code = Occasional 517) MUCUS (BEAKER) (test code = 1574) Few CRYSTALS, URINE (BEAKER) (test None Seen code = 1521) Acid Strength Inspector ID - techUrinalysis with Microscopic If [id number] 17:22:23 Test Item Value Reference Range Interpretation Comments Color, UA (test code = Yellow 5778-6) Clarity, UA (test code = Hazy 5767-9) Specific [place], UA (test 1.014 1.001-1.035 code = 5811-5) pH, UA (test code = 6.0 5.0-8.0 5803-2) Protein, UA (test code = 200 mg/dL Negative A 90050-2) Glucose, UA (test code = Negative Negative 365) Ketones, UA (test code = Negative Negative 2514-8) Bilirubin, UA (test code = Negative Negative 12251-6) Blood, UA (test code = Large Negative A 01819-0) Nitrite, UA (test code = Negative Negative 5802-4) Leukocytes, UA (test code Moderate Negative A = 5799-2) Urobilinogen, UA (test 0.2 mg/dL 0.2-1.0 code = 21812-0) Specimen Source (test code = 2795) JETT (test code = JETT) Acid Strength Inspector ID - [auto] Lab Interpretation (test Abnormal code = 04936-7) [facility] WITH MICROSCOPIC IF [id number] 17:22:23 Test Item Value Reference Range Interpretation [...] = 463) SOURCE(BEAKER) (test code = 2795) Acid Strength Inspector ID - [auto]Hepatic function [id number] 09:19:11 Test Item Value Reference Range Interpretation Comments Protein, Total (test 6.5 See_Comment [Autom ated code = 2885-2) message] The system which generated this result transmit dena reference range : 6.0 - 8.3 gm/dL . The reference range was not u sed to interpret th is result as normal/abnormal . Albumin (test code = 3.8 g/dL 3.5-5.0 88991-0) Total Bilirubin (test 1.5 mg/dL 0.2-1.2 H code = 1975-2) Bilirubin, Direct 0.5 mg/dL 0.1-0.5 (test code = 1968-7) Alkaline Phosphatase 60 U/L 40-150 (test code = 6768-6) AST (test code = 17 U/L 5-34 1920-8) ALT (test code = 12 U/L 655 1742-6) JETT (test code = JETT) Acid Strength Inspector ID - PIAYA L Lab Interpretation Abnormal (test code = 24752-9) [facility] HospitalHEPATIC FUNCTION [id number] 09:19:11 Test Item Value Reference Range Interpretation [...] (test code = 12 U/L 6-55 347) Acid Strength Inspector ID - PIAYA LBasic metabolic [id number] 09:19:10 Test Item Value Reference Range Interpretation Comments Sodium (test code = 140 meq/L 573-147 0135-2) Potassium (test code = 3.9 meq/L 3.5-5.1 2823-3) Chloride (test code = 105 meq/L 98-107 2075-0) CO2 (test code = 28 meq/L 22-29 2028-9) BUN (test code = 18 mg/dL 7-21 3094-0) Creatinine (test code 1.12 mg/dL 0.57-1.25 = 2160-0) Glucose (test code = 142 mg/dL 70-105 H 2345-7) Calcium (test code = 8.9 mg/dL 8.4-10.2 60162-5) EGFR (test code = 62 mL/min/1.73 [place] [address]-3) NOT ACCURATE CREATININE CLEARANCE IN PREDICTING GLOMERULAR FILTRATION RATE . ESTIMATED GFR I S NOT APPLICABLE FOR DIALYSIS PATIENTS. JETT (test code = JETT) Acid Strength Inspector ID - PIAYA L Lab Interpretation Abnormal (test code = 44450-2) [facility] HospitalBAS[facility]IC [id number] 09:19:10 Test Item Value Reference Range Interpretation [...] S NOT APPLICABLE FOR DIALYSIS PATIEN TS. Acid Strength Inspector ID - PIAYA LPROTHROMBIN TIME/[id number] 09:10:27 Test Item Value Reference Range Interpretation Comments PROTIME (BEAKER) 22.4 seconds 11.9-14.2 H (test code = 759) INR (BEAKER) (test 1.99 See_Comment [Automat ed message] code = 370) The system [employer] generated this result transmitted ref erence range: <=5.90. The reference range was not used to int erpret this result as normal/abnormal . RECOMMENDED COUMADIN/WARFARIN INR THERAPY RANGESSTANDARD DOSE: 2.0 - 3.0 Includes: PROPHYLAXIS for venous thrombosis, systemic embolization; TREATMENT for venous thrombosis and/or pulmonary embolus.HIGH RISK: Target INR is 2.5-3.5 for patients with mechanical heart valves.CBC W/PLT COUNT & AUTO [id number] 08:59:10 Test Item Value Reference Range Interpretation [...] PERCENT (BEAKER) (test code = 2801) BLOOD [id number] 10:00:00 Test Item Value Reference Range Interpretation Comments CULTURE (BEAKER) (test No growth in 5 days code = 1095) BLOOD [id number] 10:00:00 Test Item Value Reference Range Interpretation Comments CULTURE (BEAKER) (test No growth in 5 days code = 1095) CT, CTA, [id number] 09:40:00Unlisted Reason for Exam - Click Yes and Enter Reason Below->YesUnlisted 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 Major vascularfindings were discussed with Dr. Valladares at the time of dictation. Signed: Edwardo East Verified Date/Time: 01/02/2020 16:43:17 Reading Location: [facility] P027 CT Reading Room COMPREHENSIVE METABOLIC [id number] 07:24:00 Test Item Value Reference Range Interpretation [...] S NOT APPLICABLE FOR DIALYSIS PATIEN TS. Acid Strength Inspector ID - QUINCY [id number] 07:24:00 Test Item Value Reference Range Interpretation Comments MAGNESIUM (BEAKER) (test code = 1.8 mg/dL 1.6-2.6 627) Acid Strength Inspector ID - QUINCY [id number] 07:24:00 Test Item Value Reference Range Interpretation Comments PHOSPHORUS (BEAKER) (test code = 2.7 mg/dL 2.3-4.7 604) Acid Strength Inspector ID - QUINCY FPROTHROMBIN TIME/[id number] 07:00:00 Test Item Value Reference Range Interpretation [...] valves.While on warfarin.CBC W/PLT COUNT & AUTO [id number] 06:56:00 Test Item Value Reference Range Interpretation [...] PERCENT (BEAKER) (test code = 2801) PROTHROMBIN TIME/[id number] 18:01:00 Test Item Value Reference Range Interpretation [...] is 2.5-3.5 for patients wiht mechanical heart valves.[id number] 06:38:00 Test Item Value Reference Range Interpretation Comments MAGNESIUM (BEAKER) (test code = 1.8 mg/dL 1.6-2.6 627) Acid Strength Inspector ID - EDASICOMPREHENSIVE METABOLIC [id number] 06:38:00 Test Item Value Reference Range Interpretation [...] S NOT APPLICABLE FOR DIALYSIS PATIEN TS. Acid Strength Inspector ID - [id number] 06:38:00 Test Item Value Reference Range Interpretation Comments PHOSPHORUS (BEAKER) (test code = 2.7 mg/dL 2.3-4.7 604) Acid Strength Inspector ID - EDASICBC W/PLT COUNT & AUTO [id number] 06:03:00 Test Item Value Reference Range Interpretation [...] PERCENT (BEAKER) (test code = 2801) MRSA [id number] 15:50:00 Test Item Value Reference Range Interpretation Comments CULTURE (BEAKER) (test code No MRSA isolated = 1095) FL, ESOPH, SWALLOW FUNCTION, WITH CINE OR [id number] 15:38:00D/c NGT prior to the study and then attemptReason for exam:->dysphagea [facility] CENTERName: TREV YARBROUGH : 1935 Sex: MFINAL REPORT Modified barium swallow exam with speech pathology service CLINICALHISTORY: dysphagia IMPRESSION: Please see the speech pathology service report for details. Barium contrast of multiple consistencies is given to the patient to swallow. Fluoroscopic observation is performed during swallowing. Fluoro time: 120 minutes Number of images: 1 Signed: Scott Wilkinson Verified Date/Time: 01/01/2020 15:38:45 Reading Location: [address] Consult Reading Room [id number] 06:21:00 Test Item Value Reference Range Interpretation Comments MAGNESIUM (BEAKER) (test code = 1.9 mg/dL 1.6-2.6 627) Acid Strength Inspector ID - edasiCOMPREHENSIVE METABOLIC [id number] 06:21:00 Test Item Value Reference Range Interpretation [...] S NOT APPLICABLE FOR DIALYSIS PATIEN TS. Acid Strength Inspector ID - [id number] 06:21:00 Test Item Value Reference Range Interpretation Comments PHOSPHORUS (BEAKER) (test code = 1.8 mg/dL 2.3-4.7 L 604) Acid Strength Inspector ID - edasiCBC W/PLT COUNT & AUTO [id number] 05:52:00 Test Item Value Reference Range Interpretation [...] PERCENT (BEAKER) (test code = 2801) POCT-GLUCOSE [id number] 19:08:00 Test Item Value Reference Range Interpretation Comments POC-GLUCOSE METER 73 mg/dL 70-110 : TESTED Rebecca Jason [facility] 6720 (BEAKER) (test code = [place], 1538) [address]: Acid Strength Inspector/Techni cory ID = [id number] for ALEXANDRO EPSTEIN POCT-GLUCOSE [id number] 14:49:00 Test Item Value Reference Range Interpretation Comments POC-GLUCOSE METER 74 mg/dL 70-110 : TESTED A T [facility] 6720 (BEAKER) (test code = CHAKA Cheung [facility], 1538) [address]: Acid Strength Inspector/Techni cory ID = [id number] for BRETT-STAFFOR TRELL Chauhan MRSA [id number] 12:26:00 Test Item Value Reference Range Interpretation Comments CULTURE (BEAKER) (test code No MRSA isolated = 1095) SPUTUM CULTURE + GRAM [id number] 12:26:00 Test Item Value Reference Range Interpretation Comments CULTURE (BEAKER) 1+ Normal respiratory (test code = 1095) regina present GRAM STAIN RESULT 4+ WBCs (BEAKER) (test code = 1123) GRAM STAIN RESULT 0-5 epithelial cells (BEAKER) (test code = 70607) GRAM STAIN RESULT <1+ gram positive cocci (BEAKER) (test code = in pairs and clusters 16874) COMPREHENSIVE METABOLIC [id number] 06:48:00 Test Item Value Reference Range Interpretation [...] S NOT APPLICABLE FOR DIALYSIS PATIEN TS. Acid Strength Inspector ID - MERON [id number] 06:48:00 Test Item Value Reference Range Interpretation Comments MAGNESIUM (BEAKER) (test code = 2.0 mg/dL 1.6-2.6 627) Acid Strength Inspector ID - MERON [id number] 06:48:00 Test Item Value Reference Range Interpretation Comments PHOSPHORUS (BEAKER) (test code = 2.0 mg/dL 2.3-4.7 L 604) Acid Strength Inspector ID - MERON JASEN/S, RENAL, [id number] 06:39:00Reason for exam:- >worsening kidney function/ metabolic acidosis [facility] CENTERName: TREV YARBROUGH : 1935 Sex: MFINAL [...] 12/31/2019 06:39:51 CBC W/PLT COUNT & AUTO [id number] 06:11:00 Test Item Value Reference Range Interpretation [...] = 2801) RAD, CHEST, 1 VIEW, NON [id number] 01:43:00Reason for exam:->respiratory failureShould this be performed at the bedside?->Yes [facility] 1935 Sex: MFINAL [...] 12/31/2019 01:43:07 CBC W/PLT COUNT & AUTO [id number] 18:42:00 Test Item Value Reference Range Interpretation [...] (BEAKER) (test code = 2801) VANCOMYCIN LEVEL, [id number] 09:49:00 Test Item Value Reference Range Interpretation Comments VANCOMYCIN TROUGH (BEAKER) (test 9.6 ug/mL 10.0-20.0 L code = 522) Acid Strength Inspector ID - SUHA CCOMPREHENSIVE METABOLIC [id number] 05:31:00 Test Item Value Reference Range Interpretation [...] S NOT APPLICABLE FOR DIALYSIS PATIEN TS. Acid Strength Inspector ID - MERON [id number] 05:13:00 Test Item Value Reference Range Interpretation Comments MAGNESIUM (BEAKER) (test code = 1.6 mg/dL 1.6-2.6 627) Acid Strength Inspector ID - MERON [id number] 05:13:00 Test Item Value Reference Range Interpretation Comments PHOSPHORUS (BEAKER) (test code = 2.6 mg/dL 2.3-4.7 604) Acid Strength Inspector ID - MERON LCBC W/PLT COUNT & AUTO [id number] 04:43:00 Test Item Value Reference Range Interpretation Comments WHITE BLOOD CELL COUNT 19.3 K/ L 3.5-10.5 H (BEAKER) (test code = 775) RED BLOOD CELL COUNT 3.87 M/ L 4.63-6.08 L (BEAKER) (test code = 761) HEMOGLOBIN (BEAKER) 11.7 GM/DL 13.7-17.5 L Discorda nt HGB (test code = 410) results co mpared to previous result s; clinical correl ation required.132468 HEMATOCRIT (BEAKER) 36.4 % 40.1-51.0 L (test [...] (BEAKER) (test code = 2801) BLOOD GAS, [id number] 04:36:00 Test Item Value Reference Range Interpretation [...] (BEAKER) (test code = 1819) 50.0 CORTISOL,60 [id number] 03:53:00 Test Item Value Reference Range Interpretation [...] Pharmacy Policy and Procedure Section on The Source.Acid Strength Inspector ID - PIAYA LCORTISOL,30 MIN 2019-12-30 03:52:00 [...] Pharmacy Policy and Procedure Section on The Source.Acid Strength Inspector ID - PIAYA LRAD, CHEST, 1 VIEW, NON [id number] 03:30:00Reason for exam:->respiratory failureShould this be performed at the bedside?->Yes [facility] : 1935 Sex: MFINAL REPORT [...] Anastasiia Aponte MDReport Verified Date/Time: 12/30/2019 03:30:42 CORTISOL,[id number] 01:31:00 Test Item Value Reference Range Interpretation [...] Pharmacy Policy and Procedure Section on The Source.Acid Strength Inspector ID - PIAYA LCREATININE, RANDOM [id number] 19:52:00 Test Item Value Reference Range Interpretation Comments CREATININE URINE (BEAKER) (test 310.8 mg/dL code = 375) Reference Range: No NormalsOperator ID - DBSODIUM, RANDOM [id number] 19:52:00 Test Item Value Reference Range Interpretation Comments SODIUM URINE (BEAKER) (test code = < meq/L 243) Reference Range: No NormalsOperator ID - DBPOCT-GLUCOSE [id number] 18:14:00 Test Item Value Reference Range Interpretation Comments POC-GLUCOSE METER 105 mg/dL 70-110 : TESTED A T [facility] 6720 (BEAKER) (test code = [place]AK[place] M[place], 1538) [address]: Acid Strength Inspector/Techni cory ID = [id number] for Laura Bauman BASIC METABOLIC [id number] 16:24:00 Test Item Value Reference Range Interpretation [...] S NOT APPLICABLE FOR DIALYSIS PATIEN TS. Acid Strength Inspector ID - [id number] 16:23:00 Test Item Value Reference Range Interpretation Comments MAGNESIUM (BEAKER) (test code = 1.6 mg/dL 1.6-2.6 627) Acid Strength Inspector ID - DBBLOOD GAS, [id number] 16:09:00 Test Item Value Reference Range Interpretation [...] = 1819) 50.0 RAD, ABDOMEN/KUB, 1 VIEW [id number] 12:40:00Reason for exam:->NGT placement [facility] : 1935 Sex: [...] MDReport Verified Date/Time: 12/29/2019 12:40:58 Reading Location: [facility] C013Y CT Body Reading Room B-TYPE NATRIURETIC FACTOR (BNP)2019-12-29 11:35:00 Test Item Value Reference Range Interpretation Comments B-TYPE NATRIURETIC PEPTIDE (BEAKER) 193 pg/mL 0-100 H (test code = 700) Acid Strength Inspector ID - SUHA CLACTIC ACID, [id number] 11:25:00 Test Item Value Reference Range Interpretation Comments LACTATE BLOOD ARTERIAL (2) 3.3 mmol/L 0.5-2.2 H (BEAKER) (test code = 2874) Acid Strength Inspector ID - SUHA CLACTIC ACID, [id number] 07:06:00 Test Item Value Reference Range Interpretation Comments LACTATE BLOOD VENOUS 3.49 mmol/L 0.50-2.20 H Specime n slightly (2) (BEAKER) (test hemolyzed code = 2872) Acid Strength Inspector ID - EDASIURINALYSIS W/ REFLEX URINE [id number] 06:56:00 Test Item Value Reference Range Interpretation [...] = Many 1585) SOURCE(BEAKER) (test code = 7532) Acid Strength Inspector ID - [auto]Acid Strength Inspector ID - techPROTHROMBIN TIME/[id number] 06:54:00 Test Item Value Reference Range Interpretation [...] is 2.5-3.5 for patients wiht mechanical heart valves.[id number] 06:54:00 Test Item Value Reference Range Interpretation Comments PARTIAL THROMBOPLASTIN TIME 30.3 seconds 22.5-36.0 (BEAKER) (test code = 760) RAD, CHEST, 1 VIEW, NON [id number] 06:51:00Reason for exam:->ETT placementShould this be performed at the bedside?->Yes [facility] : 1935 Sex: MFINAL [...] Verified Date/Time: 12/29/2019 06:51:17 TSH/FREE T4 IF [id number] 06:47:00 Test Item Value Reference Range Interpretation Comments THYROID STIMULATING HORMONE 1.830 uIU/mL 0.350-4.940 (DAVE) (test code = 772) Acid Strength Inspector ID - SENGN [id number] 06:40:00 Test Item Value Reference Range Interpretation [...] failure, acidosis, acute neurological disease, and persistent tachyarrhythmia.Acid Strength Inspector ID - EDASITROPOJORGE LN [id number] 06:36:00 Test Item Value Reference Range Interpretation [...] failure, acidosis, acute neurological disease, and persistent tachyarrhythmia.Acid Strength Inspector ID - EDASICBC W/PLT COUNT & AUTO [id number] 04:56:00 Test Item Value Reference Range Interpretation [...] PERCENT (BEAKER) (test code = 2801) TROPONIN [id number] 04:43:00 Test Item Value Reference Range Interpretation [...] failure, acidosis, acute neurological disease, and persistent tachyarrhythmia.Acid Strength Inspector ID - EDASICOMPREHENSIVE METABOLIC [id number] 04:37:00 Test Item Value Reference Range Interpretation [...] S NOT APPLICABLE FOR DIALYSIS PATIEN TS. Acid Strength Inspector ID - [id number] 04:37:00 Test Item Value Reference Range Interpretation Comments MAGNESIUM (BEAKER) (test code = 1.7 mg/dL 1.6-2.6 627) Acid Strength Inspector ID - [id number] 04:37:00 Test Item Value Reference Range Interpretation Comments PHOSPHORUS (BEAKER) (test code = 3.7 mg/dL 2.3-4.7 604) Acid Strength Inspector ID - EDASIRAD, CHEST, 1 VIEW, NON [id number] 04:27:00Reason for exam:->ETT positionShould this be performed at the bedside?->Yes [facility] CENTERName: TREV YARBROUGH : 1935 Sex: MFINAL REPORT CLINICAL INDICATION: Support lines. Comparison: 12/28/2019 The tip of an endotracheal tube is in good position above the kira at the level of the midclavicular heads.The cardiomediastinal contours are stable. Bilateral parenchymal and pleural opacities are unchanged. There is no pneumothorax. Signed: Gerry Sinha MDReport Verified Date/Time: 12/29/2019 04:27:00 -COV2/RT-PCR ([facility])2019-12-29 04:15:00 Test Item Value Reference Range Interpretation Comments SARS-COV2/RT-PCR (test Negative Not Detected, Negative, code = 8697294) See external report for linked test SARS-COV-2 PERFORMING LAB [facility] (test code = 0698326) Negative result for this test determines that [...] of the Act.Fact Sheet for Healthcare Prov iders:https://www.[employer]/sites/default/files/product/documents/Fact_Sheet_HC _Aipquwkti_Yads_FBNT-LkP-8.pdfFact Sheet for Healthcare Patients:https://www.[employer]/sites/default/files/product/docume nts/Uavt_Azelc_Liaxwuzs_Ppti_ZSKL-MdZ-9.pdfPerforming Laboratory:[address] [address]MDHS-UOQQB GASES, [id number] 04:14:00 Test Item Value Reference Range Interpretation [...] EXCESS, -1.0 meq/L -2.0-3.0 : TESTED AT [facility] 67[address] ARTERIAL-POC [facility], (BEAKER) (test code 95966: = 1841) Acid Strength Inspector/Techni cory ID = [id number] for CR DONNELL HERRERA [id number] 04:14:00 Test Item Value Reference Range Interpretation Comments POC-SODIUM ([facility]) 141 meq/L 135-148 : TESTED AT [place] [address] (test code = 1542) [place] [place], [address]: Acid Strength Inspector/Techni cory ID = [id number] for DONNELL GERMAIN MESC-[id number] 04:14:00 Test Item Value Reference Range Interpretation Comments POC-POTASSIUM 3.6 meq/L 3.6-5.5 : TESTED AT [place] [address] [facility] (test code [facility], = 1540) [address]: Acid Strength Inspector/Techni cory ID = [id number] for DONNELL GERMAIN [id number]-[id number] 04:14:00 Test Item Value Reference Range Interpretation Comments POC-HEMOGLOBIN 16.3 g/dL 13.0-16.8 : TESTED AT [facility] (test code [facility], = 1856) [address]: Acid Strength Inspector/Techni cory ID = [id number] for DONNELL GERMAIN [id number]-[id number] 04:14:00 Test Item Value Reference Range Interpretation Comments POC-HEMATOCRIT 48 % 40-50 : Acid Strength Inspector/Te chnician ID = ([facility]) (test code = 989954 for DONNELL GERMAIN 1857) POCT-CALCIUM [id number] 04:14:00 Test Item Value Reference Range Interpretation Comments POC-CALCIUM IONIZED 1.18 mmol/L 1.12-1.27 : TESTED AT [facility] ([facility]) (test code = [address] [facility] 1536) [place], [address]: Acid Strength Inspector/Techni cory ID = [id number] for DONNELL GERMAIN [id number] 04:14:00 Test Item Value Reference Range Interpretation Comments POC-GLUCOSE ([facility]) 145 mg/dL 70-110 H : TESTE D AT [place] [address] (test code = 1855) [place], [address]: Acid Strength Inspector/Techni cory ID = [id number] for DONNELL GERMAIN CBC W/PLT COUNT & AUTO [id number] 23:29:00 Test Item Value Reference Range Interpretation [...] (BEAKER) (test code = 2801) BASIC METABOLIC [id number] 23:07:00 Test Item Value Reference Range Interpretation [...] S NOT APPLICABLE FOR DIALYSIS PATIEN TS. Acid Strength Inspector ID - DBRAD, CHEST, 1 VIEW, NON [id number] 22:49:00Reason for exam:->pre-anesthesiaShould this be performed at the bedside?->Yes [facility] : 1935 Sex: MFINAL REPORT TECHNIQUE: Frontal [...] MDReport Verified Date/Time: 12/28/2019 22:49:33 Reading Location: [address] Transitional Reading Room COMP. METABOLIC PANEL (56213)2019-09-02 11:55:00 Test Item Value Reference Range Interpretation Comments NA (test code = 139 mmol/L 135-145 2232219488) K (test code = 4.1 mmol/L 3.5-5 4909630583) CL (test code = 104 mmol/L 98-108 5980929970) CO2 TOTAL (test code = 29 mmol/L 23-31 2150592242) AGAP (test code = 2-16 0068962175) BUN (test code = 21 mg/dL 7-23 0659659469) GLUCOSE (test code = 99 mg/dL 70-110 5695858171) CREATININE (test code 0.86 mg/dL 0.6-1.25 = 2279556583) TOTAL BILI (test code 0.7 mg/dL 0.1-1.1 = 5804915487) CALCIUM (test code = 9.3 mg/dL 8.6-10.6 5960552403) T PROTEIN (test code = 7.2 g/dL 6.3-8.2 0739029078) ALBUMIN (test code = 4.2 g/dL 3.5-5 4116753941) ALK PHOS (test code = 75 U/L 34-122 1061470917) ALTv (test code = 28 U/L 5-50 1742-6) AST(SGOT) (test code = 33 U/L 13-40 8717138619) eGFR Calculation mL/min/1.73m2 (Non-) (test code = 0479308445) eGFR Calculation mL/min/1.73m2 () (test code = 6806174484) JETT (test code = JETT) Association of [...] or urine or abnormalities in imaging tests). [facility] [id number] 11:53:00 Test Item Value Reference Range Interpretation Comments APPEARANCE (test code = Clear Clear 3201004148) COLOR (test code = Yellow Yellow 7364789981) PH (test code = 4.8-8.0 2831078566) SP GRAVITY (test code = 1.003-1.030 1351359316) GLU U QUAL (test code = Normal Normal 5840750633) BLOOD (test code = 1+ Negative A 2766048603) KETONES (test code = Negative Negative 4393239061) PROTEIN (test code = Negative Negative 2887-8) UROBILIN (test code = Normal Normal 3707069858) BILIRUBIN (test code = Negative Negative 3385145590) NITRITE (test code = Negative Negative 1368722619) LEUK ROLAN (test code = 75/uL Negative A 9255786045) RBC/HPF (test code = See_Comment H [Autom ated message] 9348971521) The system [employer] generated this result transmitted ref erence range: 0 - 3 HP F. The reference range was not used to int erpret this result as normal/abnormal . WBC/HPF (test code = See_Comment H [Autom ated message] 6115785261) The system [employer] generated this result transmitted ref erence range: 0 - 5 HP F. The reference range was not used to int erpret this result as normal/abnormal . BACTERIA (test code = Few Negative A 1625844610) MUCOUS (test code = Slight Negative LPF A 4703426485) SQ EPITH (test code = <1 HPF 3411172379) TRANS EPI (test code = <1 See_Comment [Aut omated message] 2600586105) The system [employer] generated this result transmitted ref erence range: <=1 HPF. The reference range was not used to int erpret this result as normal/abnormal . NOE EPITH (test code = <1 See_Comment [Aut omated message] 5987294714) The system [employer] generated this result transmitted ref erence range: <=1 HPF. The reference range was not used to int erpret this result as normal/abnormal . Lab Interpretation (test Abnormal code = 10293-2) [facility] WITH [id number] 11:52:00 Test Item Value Reference Range Interpretation Comments WBC (test code = See_Comment [Automated message] 6690-2) The system [employer] generated this result transmitted ref erence range: 4.20 - 1 0.70 10*3/?L. The re ference range was not u sed to interpret this result as normal/abnor mal. RBC (test code = See_Comment [Automated message] 789-8) The system [employer] generated this result transmitted ref erence range: [...] RDW-SD (test code 41.1 fL 38.5-51.6 = 22522-5) RDW-CV (test code 12.1 % 12.1-15.4 = 788-0) PLT (test code = See_Comment [Automated message] 777-3) The system [employer] h generated this result transmitted ref erence range: 150 - 32 8 10*3/?L. The re ference range was not u sed to interpret this result as normal/abnor mal. MPV (test code = 10.8 fL 9.8-13 82511-8) NRBC/100 WBC (test See_Comment [Automat ed message] code = 4015383094) The syste m which generated this result transmitted ref erence range: 0.0 - 10 .0 /100 WBCs. The refer ence range was not u sed to interpret this result as normal/abnor mal. NRBC x10^3 (test <0.01 See_Comment [Automated message] code = 9494027355) The syste m which generated this result transmitted ref erence range: 10*3/?L. The reference range was not used to interpr et this result as normal/abnormal . GRAN MAT (NEUT) % 44.8 % (test code = 770-8) IMM GRAN % (test 0.40 % code = 4327396374) LYMPH % (test code 42.0 % = 736-9) MONO % (test code 6.9 % = 5905-5) EOS % (test code = 5.0 % 713-8) BASO % (test code 0.9 % = 706-2) GRAN MAT 3.14 10*3/uL 1.99-6.95 x10^3(ANC) (test code = 4418030022) IMM GRAN x10^3 0.03 10*3/uL 0-0.06 (test code = 7454359819) LYMPH x10^3 (test 2.94 10*3/uL 1.09-3.23 code = 731-0) MONO x10^3 (test 0.48 10*3/uL 0.36-1.02 code = 742-7) EOS x10^3 (test 0.35 10*3/uL 0.06-0.53 code = 711-2) BASO x10^3 (test 0.06 10*3/uL 0.01-0.09 code = 704-7) [facility] URINALYSIS, [id number] 17:34:00 Test Item Value Reference Range Interpretation [...] 3267) Lab Interpretation (test code Normal = 76006-8) [facility] URINALYSIS, [id number] 17:34:00 Test Item Value Reference Range Interpretation [...] 3267) Lab Interpretation (test code Normal = 76783-0) [facility] URINALYSIS, [id number] 17:09:00 Test Item Value Reference Range Interpretation [...] U APPEAR (test code = clear 3267) [facility] URINALYSIS, [id number] 17:09:00 Test Item Value Reference Range Interpretation [...] negative Negative - Negative 325) POCT U UROBILI (test code = 0.2 mg/dl 0.2-1 3260) POCT U BILI (test code = negative Negative - Negative 326) POCT U BLD (test code = 3257) negative Negative - Negative POCT U COLOR (test code = yellow 3265) POCT U APPEAR (test code = clear 3266) [facility]"
--- NOTE | 2022-08-03 09:43 | RAD REPORT ---
EXAM DESCRIPTION: CT - Stone Protocol - 08/03/2022 9:11 am CLINICAL HISTORY: pelvic pain, urinary catheter COMPARISON: Abdomen Pelvis W Contrast dated 03/01/2022; Abdomen Pelvis W/Wo Contrast dated 2018; Abdomen Pelvis W Contrast dated 02/20/2018; Abdomen Pelvis W Contrast dated 05/06/2016 TECHNIQUE: Thin cut axial CT imaging of the abdomen and pelvis was performed without IV contrast. Mu ltiplanar reformats were generated and reviewed. All CT scans are performed using dose optimization technique as appropriate and may include automated exposure control or mA/KV adjustment according to patient size. FINDINGS: No suspicious findings in the lung bases. Calcified pleural plaque at the lung bases. The liver, spleen, and pancreas show no suspicious findings. Gallbladder is collapsed limiting evalua tion. Exophytic mid to lower left renal 3.4 centimeter hypoattenuating lesion, grossly stable, most suggest [place] of a cyst. No other suspicious parenchymal findings within limits of noncontrast technique. No ev idence of radiopaque calculi or hydroureteronephrosis. No dilated bowel loops or bowel wall thickening. No free air, free fluid or inflammatory stranding. N o suspicious mass or bulky lymphadenopathy. Fat containing right inguinal hernia. Urinary bladder is suboptimally distended limiting evaluation with Tee catheter in place. Mild jose cystic fat stranding, nonspecific. No suspicious bony findings. Stable degenerative changes and stable superior endplate compression def ormity at L1 with mild vertebral body height loss. IMPRESSION: Mild fat stranding around the urinary bladder, with Tee catheter in place, nonspecific . Please correlate clinically and with lab results for evidence of cystitis. Other stable findings as above.
[2022-08-03 09:52] LABS: Absolute Lymphocytes (CBC) 3.8 K/uL (0.7-4.9); Hematocrit 39.1 % (39.6-49.0); Lymphocytes % 39.2 % (15.3-44.8); MCV 90.8 fL (80-100); MPV 8.6 fL (7.6-11.3); RBC Red Blood Cell Count 4.31 M/uL (4.33-5.43)
[2022-08-03 10:03] LABS: Specific Gravity 1.012 (1.005-1.030); Urine Bacteria >50 /HPF (<20); Urine Bilirubin NEGATIVE (Negative); Urine Blood 3+ (OVER) (Negative); Urine Clarity Turbid (Clear); Urine Color Light-Yellow (Yellow); Urine Glucose NEGATIVE (Negative); Urine Protein 1+ (Negative); Urine RBC 21-50 /HPF (None Seen); Urine Triple Phosphate Crystal Moderate /HPF (None Seen); Urine Urobilinogen Normal (Normal)
[2022-08-03 10:07] LABS: Albumin 3.4 g/dL (3.4-5.0); Bilirubin Total 1.1 mg/dL (0.2-1.0); Potassium 3.4 mEq/L (3.5-5.1); Protein, Total 6.9 g/dL (6.4-8.2)
[2022-08-03] MEDS ORDERED: TRAMADOL HCL 50 MG TAB ONE (10:40)
[2022-08-03] MEDS ORDERED: IBUPROFEN 200 MG TAB PO ONE (10:40)
[2022-08-03] MEDS ORDERED: CEFTRIAXONE 1000 MG/VIAL ONE (10:40)
--- NOTE | 2022-08-03 10:58 | ER ---
Nurse's Notes [facility] Name: Rusty Yarbrough Age: 87 yrs Sex: Male : 1935 Arrival Date: 08/03/2022 Time: 08:33 Bed 15 Private MD: Shawn Perry E Diagnosis: UTI/ Urinary tract infection, site not specified Presentation: 08/03 08:51 Chief complaint: Chronic ulrich catheter recently replaced by Dr. Alexander, reports hb penile and back pain x 2 days. Coronavirus screen: At this time, the client does not indicate any symptoms associated with coronavirus-19. Ebola Screen: No symptoms or risks identified at this time. Initial Sepsis Screen: Does the patient meet any 2 criteria? No. Patient's initial sepsis screen is negative. Does the patient have a suspected source of infection? No. Patient's initial sepsis screen is negative. Risk Assessment: Do you want to hurt yourself or someone else? Patient reports no desire to harm self or others. Onset of symptoms was August 02, 2022. 08:51 Method Of Arrival: Ambulatory hb 08:51 Acuity: GAYLE 3 hb Triage Assessment: 11:22 General: Appears in no apparent distress. comfortable, Behavior is calm, cooperative, ld1 appropriate for age. Pain: Denies pain. Historical: - Allergies: 08:56 Benadryl; hb 08:56 Enalapril; hb - PMHx: 08:56 "heart valve replacement"; Aortic Stenosis; Ataxia; acute, resolved now; bleeding hb ulcers; CAD; Cerebrovascular accident; COPD; dyspnea; fatigue; Hyperlipidemia; Hypertension; Hypertensive disorder; Hypokalemia; melena; Myocardial infarction; syncope; Tachycardia; TIA; Vertigo; - Immunization history:: Adult Immunizations up to date. - Social history:: Smoking status: Patient denies any tobacco usage or history of. - Family history:: not pertinent. - Hospitalizations: : No recent hospitalization is reported. Screenin:[facility] ED Fall Risk Assessment (Adult) History of falling in the last 3 months, ld1 including since admission No falls in past 3 months (0 pts). Abuse screen: Denies threats or abuse. Denies injuries from another. Nutritional screening: No deficits noted. Tuberculosis screening: No symptoms or risk factors identified. Assessment: 09:52 Reassessment: See triage assessment. ld1 09:52 Reassessment: Irrigated pt ulrich at bedside - patient began to complain of severe pain ld1 to penis. Stopped immediately - notified Dr. Guerrier. Dr. Guerrier came to bedside - stopped irrigation per MD request. Pt pain subsided. Vital Signs: 08:51 BP 146 / 74; Pulse 83; Resp 16; Temp 98.1; Pulse Ox 97% on R/A; Weight 83.91 kg; Height hb 5 ft. 11 in. ; Pain 6/10; 09:52 BP 131 / 52; Pulse 81; Resp 18; Pulse Ox 97% on R/A; ld1 10:57 BP 132 / 71; Pulse 85; Resp 18; Pulse Ox 96% on R/A; ld1 08:51 Body Mass Index 25.80 (83.91 kg, 180.34 cm) hb 08:51 Pain Scale: Adult hb ED Course: 08:35 Patient arrived in ED. mr 08:35 Shawn Perry MD is Private Physician. mr 08:48 Joe Guerrier MD is Attending Physician. rn 08:56 Triage completed. hb 08:57 Arm band placed on. hb 09:08 Diann Ennis, HENRRY is Primary Nurse. ld1 09:12 CT Stone Protocol In Process Unspecified. EDMS 09:55 Patient has correct armband on for positive identification. Placed in gown. Bed in low ld1 position. Call light in reach. Side rails up X2. operations leader on. Pulse ox on. NIBP on. Door closed. Noise minimized. Warm blanket given. 09:55 No provider procedures requiring assistance completed. Inserted saline lock: 20 gauge ld1 in right antecubital area, using aseptic technique. Blood collected. 11:23 IV discontinued, intact, bleeding controlled, No redness/swelling at site. ld1 Administered Medications: 10:40 Drug: Rocephin IV 1 grams Route: IV; Rate: calculated rate; Site: right antecubital; ld1 10:40 Drug: traMADol PO 50 mg Route: PO; ld1 10:40 Drug: Ibuprofen PO 600 mg Route: PO; ld1 Medication: 09:55 VIS not applicable for this client. ld1 Outcome: 10:58 Discharge ordered by . rn 11:23 Discharged to home ambulatory. ld1 11:23 Condition: stable 11:23 Discharge instructions given to patient, family, Instructed on discharge instructions, follow up and referral plans. medication usage, Demonstrated understanding of instructions, follow-up care, medications, Prescriptions given X 1. 11:23 Patient left the ED. ld1 Signatures: Dispatcher [employer] XIMENAYakelin ElderJoe MD MD rn Baxter, Heather, RN RN hb Sims, Lauren, RN RN ld1 Corrections: (The following items were deleted from the chart) 08:57 08:51 BP 146 / 74; Pulse 83bpm; Resp 16bpm; Pulse Ox 97% RA; Temp 98.1F; hb hb
--- NOTE | 2022-08-03 10:58 | EDPHYS ---
Physician Documentation [facility] Name: Rusty Yarbrough Age: 87 yrs Sex: Male : 1935 Arrival Date: 08/03/2022 Time: 08:33 Bed 15 Private MD: Shawn Perry E ED Physician Joe Guerrier HPI: 08/03 10:54 This 87 yrs old Male presents to ER via Ambulatory with complaints of Problem rn With Urinary Catheter, Pain. 10:54 The patient presents with urinary symptoms, dysuria. Onset: The symptoms/episode rn began/occurred yesterday. Modifying factors: The symptoms are alleviated by nothing, the symptoms are aggravated by urinating. Severity of symptoms: At their worst the symptoms were moderate, in the emergency department the symptoms have improved. The patient has not experienced similar symptoms in the past. Pt reports urinary catheter in place for a year, 2/2 prostate problems, just had catheter changed to larger diameter because of obstruction. Presents for pain at bladder and tip of penis. Catheter is draining, no hematuria. No trauma. No fever or chills. . Historical: - Allergies: 08:56 Benadryl; hb 08:56 Enalapril; hb - PMHx: 08:56 "heart valve replacement"; Aortic Stenosis; Ataxia; acute, resolved now; bleeding hb ulcers; CAD; Cerebrovascular accident; COPD; dyspnea; fatigue; Hyperlipidemia; Hypertension; Hypertensive disorder; Hypokalemia; melena; Myocardial infarction; syncope; Tachycardia; TIA; Vertigo; - Immunization history:: Adult Immunizations up to date. - Social history:: Smoking status: Patient denies any tobacco usage or history of. - Family history:: not pertinent. - Hospitalizations: : No recent hospitalization is reported. ROS: 10:54 Constitutional: Negative for fever, chills, and weight loss, Cardiovascular: Negative rn for chest pain, palpitations, and edema, Respiratory: Negative for shortness of breath, cough, wheezing, and pleuritic chest pain, Abdomen/GI: Negative for nausea, vomiting, diarrhea, and constipation, Back: Negative for injury and pain, : Negative for injury, bleeding, discharge, and swelling, MS/Extremity: Negative for injury and deformity, Skin: Negative for injury, rash, and discoloration, Neuro: Negative for headache, weakness, numbness, tingling, and seizure. Exam: 10:54 Constitutional: This is a well developed, well nourished patient who is awake, alert, rn and in no acute distress. Cardiovascular: Regular rate and rhythm. No pulse deficits. Abdomen/GI: soft, no focal tenderness, no masses Back: No spinal tenderness. No costovertebral tenderness. Full range of motion. Skin: Warm, dry Vital Signs: 08:51 BP 146 / 74; Pulse 83; Resp 16; Temp 98.1; Pulse Ox 97% on R/A; Weight 83.91 kg; Height hb 5 ft. 11 in. ; Pain 6/10; 09:52 BP 131 / 52; Pulse 81; Resp 18; Pulse Ox 97% on R/A; ld1 10:57 BP 132 / 71; Pulse 85; Resp 18; Pulse Ox 96% on R/A; ld1 08:51 Body Mass Index 25.80 (83.91 kg, 180.34 cm) hb 08:51 Pain Scale: Adult hb MDM: 08:49 Patient medically screened. rn 10:54 Differential diagnosis: UTI, urinary retention, Ulrich catheter problem, urethritis. rn Data reviewed: vital signs, nurses notes, lab test result(s), radiologic studies, CT scan, and as a result, I will discharge patient. Counseling: I had a detailed discussion with the patient and/or guardian regarding: the historical points, exam findings, and any diagnostic results supporting the discharge/admit diagnosis, lab results, radiology results, the need for outpatient follow up, to return to the emergency department if symptoms worsen or persist or if there are any questions or concerns that arise at home. Response to treatment: the patient's symptoms have mildly improved after treatment, and as a result, I will discharge patient. Special discussion: I discussed with the patient/guardian in detail that at this point there is no indication for admission to the hospital. It is understood, however, that if the symptoms persist or worsen the patient needs to return immediately for re-evaluation. Based on the history and exam findings, there is no indication for further emergent testing or inpatient evaluation. I discussed with the patient/guardian the need to see the urologist for further evaluation of the symptoms. ED course: CT abdomen/pelvis shows cystitis, no other acute finding, ulrich in proper position. UA shows UTI. Ulrich catheter not obstructed, no hematuria. Will dc home with return precautions and f/u with his urologist. . 08/03 08:58 Order name: CBC with Diff; Complete Time: 09:57 rn 08/03 08:58 Order name: CMP; Complete Time: 10:22 rn 08/03 08:58 Order name: Urinalysis w/ reflexes; Complete Time: 10:22 rn 08/03 10:06 Order name: Urine Culture [facility] 08/03 08:58 Order name: CT Stone Protocol; Complete Time: 09:57 rn 08/03 08:58 Order name: IV Saline Lock; Complete Time: 09:52 rn 08/03 08:58 Order name: Labs collected and sent; Complete Time: 09:52 rn 08/03 08:58 Order name: Misc. Order: irrigate ulrich; Complete Time: 09:52 rn Administered Medications: 10:40 Drug: Rocephin IV 1 grams Route: IV; Rate: calculated rate; Site: right antecubital; ld1 10:40 Drug: traMADol PO 50 mg Route: PO; ld1 10:40 Drug: Ibuprofen PO 600 mg Route: PO; ld1 Disposition Summary: 08/03/22 10:58 Discharge Ordered Location: Home rn Problem: new rn Symptoms: have improved rn Condition: Stable rn Diagnosis - UTI/ Urinary tract infection, site not specified rn Followup: rn - With: Private Physician - When: As needed - Reason: Recheck today's complaints, Re-evaluation by your physician Discharge Instructions: - Discharge Summary Sheet rn - Dysuria rn - Urinary Tract Infection, Adult rn Forms: - Medication Reconciliation Form rn - Thank You Letter rn - Antibiotic heater furnace - Prescription Opioid Use rn Prescriptions: - Tramadol 50 mg Oral Tablet - take 1 tablet by ORAL route every 8 hours as needed; 12 tablet; Refills: 0, rn Product Selection Permitted - cefpodoxime 100 mg Oral Tablet - take 2 tablets by ORAL route every 12 hours for 10 days take with food; 40 rn tablet; Refills: 0, Product Selection Permitted Signatures: Dispatcher [employer] Joe Garrido MD MD rn Baxter, Heather, RN RN Diann Ennis RN RN ld1
[2022-08-03 11:39] VITALS: TEMP 98.1
[2022-08-03 11:42] VITALS: BP 132/71; O2SAT 96
== END 2022-08-03 11:23 | disposition home or self-care (01) ==
LOC: ER 08:33
DX: N39.0 Urinary tract infection, site not specified (principal); I10 Essential (primary) hypertension; Z95.2 Presence of prosthetic heart valve; Z88.8 Allergy status to other drugs, medicaments and biological substances
CPT/HCPCS: 87088; 85025; 81001; 87086; 36415; 87077 ×2; 87186 ×2; 80053; 76377; 74176; 96374; 99285; J0696

== ENCOUNTER 2022-08-08 08:53 | Emergency (ER) | payer MEDICARE ==
--- OUTSIDE RECORDS SUMMARY | 2022-08-08 09:05 | XMS REPORT | Continuity of Care Document ---
:1935 Author Organization [facility] t Address [address] [facility] [address] [place] [id number] Care Team Providers Name Role Phone Provider, Unknown Primary Care Physician Unavailable Shawn Perry Attending Clinician Unavailable ZOYA MIRANDA Attending Clinician Unavailable CECILIO MOLINA Attending Clinician Unavailable Carley GREEN Attending Clinician Unavailable Carley Correia Attending Clinician Doctor Unassigned, [place] Attending Clinician Unavailable Ruddy GAGE, Queenie Clifton Attending Clinician [phone] Kwadwo GAGE, Yusra Attending Clinician Miguelina GAGE, Oscar Attending Clinician Melita GAGE, David Attending Clinician DAVID HILL Attending Clinician Unavailable Juanita GAGE, Eduardo Sandhu Attending Clinician Kory PAC, Marquis Cee Attending Clinician Ajibade_O_AH Attending Clinician Unavailable Robbie Car MD Attending Clinician ROBBIE CAR Attending Clinician Unavailable Nurse, Adc Surgery Gu Attending Clinician Unavailable Chico Mccall DO Attending Clinician Gramm ALUMNI RELATIONS MANAGERGloria Attending Clinician , Adc Surg Spec Procedure Attending Clinician Unavailable Ige-Odunuga_J_AH Attending Clinician Unavailable JULIET MILLER Attending Clinician Unavailable LASHON VALLADARES Attending Clinician Unavailable ZOYA MIRANDA Admitting Clinician Unavailable CECILIO MOLINA Admitting Clinician Unavailable Carley GREEN Admitting Clinician Unavailable YUSRA SETHI Admitting Clinician Unavailable Ajibade_O_AH Admitting Clinician Unavailable FIDELINA FAROOQ Admitting Clinician Unavailable Ige-Odunuga_J_AH Admitting Clinician Unavailable Payers Payer Name Policy Type Policy Number Effective Date Expiration Date S [facility] [id number] 2018 CLASSIC/VALUE 00:00:00 AARP/MEDICARE [id number] 2015 COMPLETE 00:00:00 [employer] MEDICARE ADV [id number] 2019 00:00:00 [employer] [id number] 2021 (MEDICARE 00:00:00 REPLACEMENT HMO) [employer] [id number] 2021 MEDICARE ADVANTAGE 00:00:00 [facility] [id number] 2019 [place] (MEDICARE 00:00:00 REPLACEMENT/ADVANTA GE - HMO) [place] PLUS [id number] 2020 MEDICARE/HMO 00:00:00 TAWNY RENEE [id number] 2015 PPO-[facility] 00:00:00 MEDICARE PART A \\T\\ [id number] 2015 B - MEDICARE 00:00:00 Problems Condition [...] c 00 e 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 00:00: Practic block Block 00 e Cardiac Cardiac Problem Active [facility] arrhythmia Arrhythmia 1-04 [facility] 00:00: Practic 00 e Cerebrovas Cerebrovas Problem Active [facility] cular cular 1-04 Family accident Accident 00:00: Practi c 00 e Asthma Asthma Problem Active [place] 1-04 Family 00:00: Practic 00 e 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 1-04 [facility] e lung e Lung 00:00: Practic disease Disease 00 e Benign Benign Problem Active [facility] prostatic Prostatic 1-04 Fami ly hyperplasi Hyperplasi 00:00: Pr actic a a 00 e History of History of Problem Active [facility] cerebrovas Cerebrovas 1-04 [facility] cular cular 00:00: Practic accident Accident [...] S t (transcath (transcath 1-02 Lisandra kes eter eter 00:00: Medical aortic aortic 00 Center valve valve replacemen replacemen t), t), bioprosthe bioprosthe tic tic Aortic Aortic Disease Active 2014-[address] [facility] stenosis stenosis 1-15 [facility] HTN HTN Disease Active 2014-[address] [facility] (hypertens (hypertens 1-15 Lisandra kes ion) ion) 00:00: Medical 00 Center Cancer of Cancer of Disease Active 2014-[address] [facility] prostate prostate 1-15 [facility] 00:[facility]: Medical 00 Center Asthma Asthma Disease Active 2014-[address] [facility] 1-15 [facility] 00:[facility]: Medical 00 Center TIA TIA Disease Active 2014-[address] [facility] (transient (transient 1-15 Lisandra kes ischemic ischemic 00:00: Medica l attack) attack) 00 Center HLD HLD Disease Active 2014-[address] [facility] (hyperlipi (hyperlipi 1-15 Lisandra kes demia) demia) 00:00: Medical 00 Center Patient is Patient is Disease Active 2014-[address] Jehovah's Jehovah's 1-15 [facility] Witness Witness 00:00: Medical 00 Center Chest pain Chest pain Disease Active Overview : Univers 2-03 Formattin ity of 00:00: g of this [place] note Medical might be Branch different from the original. ICD10 Diagnosis Term Runner Out Utility Other Other Disease Active Univers secondary secondary 03 ity of hypertensi hypertensi 00:[place] on, benign on, benign 00 Me dical Branch Obstructiv Obstructiv Disease Active Overview : Univers e sleep e sleep 04-09 Formattin ity o f apnea apnea 00:00: g of this [place] note Medical might be Branch different from the original. ICD10 Diagnosis Term Runner Out Utility HLD HLD Disease Active Overview: Univer s (hyperlipi (hyperlipi 04-09 Formattin ity of neel olguin) 00:00: g of this [place] note Medical might be Branch different from the original. 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 of bulbous Spiri t urethra in - [facility] Center type Hematuria Hematuria Problem Com mon [facility] [id number] Urinary Problem Commo n incontinen Spirit ce, - [facility] unspecifie d [facility] [id number] Bladder Problem Commo n spasms [facility] [id number] Urinary Problem Commo n retention Spirit [facility] [id number] S/P Problem Common radiation [facility] therapy [facility] [id number] 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[facility] bypass Medical graft of Center anvik heart without angina pectoris Prostate Prostate Problem Commo n cancer cancer [facility] Allergies, Adverse Reactions, Alerts Allergy Allergy Status Severity Reaction(s) Onset Inactive Treating Comm ents Source Name Type Date Date Clinician DIPHENHY Allergy Active 2019-03 [facility] DRAMINE 0-23 HCL 00:00: 00 Diphenhy Propensi Active 2019-[address] dramine ty to 0-23 [facility] Hcl adverse 00:00: Medical reaction 00 Center s ENALAPRI Allergy Active Hives 2014-03 [facility] L 03-18 00:00: 00 Enalapri Drug Active Hives, 2014-[address] [facility] [facility] Allergy Itching 03-18 [facility] 00:00: Medical 00 Center NO KNOWN Drug Active Univers ALLERGIE Class ity of S [facility] Family History Family Member Diagnosis Comments Start Date Stop Date Source Natural [facility] Natural father Asthma [facility] Natural father Stroke [facility] Natural mother Seizures [facility] Natural sister Diabetes [facility] Social History Social Habit Start Date Stop Date Quantity Comments Source [facility] Gender identity [facility] History SDOH [facility] Alcohol Frequency [facility] Center History SDOH [facility] Alcohol Std Drinks Medica Center History SDOH [facility] Alcohol Binge Medical [address] [facility] History of Tobacco [facility] - Use [facility] Exposure to 2021-08-22 2021-09-01 Not sure University of SARS-CoV-2 (event) 00:00:00 17:20:00 [facility] Alcohol intake 2020-01-01 2020-01-01 [facility]er [facility]:00:00 of alcohol Medical [place] (finding) Tobacco use and 2019-12-29 2019-12-[address] Lisandra kes exposure 00:00:00 00:00:00 tobacco non-user Medical Center History of Social 2019-04-24 2019-04-[address] function 00:00:00 00:00:00 Hospital Alcohol Comment 2015-01-19 2015-01-[address] Lisandra kes 00:00:00 00:00:00 Medical Center Sex Assigned At [address] Lisandra kes 00:00:00 00:00:00 Medical Center Smoking Status Start Date Stop Date Source Never Smoker [facility] nter Ex-smoker 2019-12-29 00:00:00 2019-12-29 00:00:[address] [facility] Medications Ordered Filled Start Stop Current Ordering Indication Dosage Frequency Signature Comments Components Source Medication Medication Date Date Medication? Clinician (SIG) Name Name cephALEXin 2022-0 2022- No 500mg 500 mg, Un henry (KEFLEX) [...] kg), Subcutaneo us, ONCE, 1 dose, On [facility] 09/01/21 at 2045, WINDY NaCl 0.9% 2021- No 500mL at 999 Univ ers (NS) bolus 09-02 mL/hr, 500 it y of infusion 00:45: 01:47 mL, IV [place] 500 mL 00 :00 Infusion, Medical ONCE, 1 Branch dose, On [facility] 09/01/21 at 1945, STAT magnesium No 2g 2 g, IV Univ ers sulfate in 09-02 Piggyback, it y of water 2 00:15: 00:53 Administer Bran as gram/50 mL 00 :00 over 60 Medica l (4 %) Minutes, Branch infusion 2 ONCE, 1 g dose, On [facility] 09/01/21 at 1915, Routine cephALEXin 2021- No [id number] 500mg Take 1 Univers (KEFLEX) 09-01 07-09 capsule by ity of 500 mg 00:00: 04:59 mouth 3 [place] capsule 00 :00 (three) Medical times [place] daily for 10 days. aspirin 81 Yes 81mg QD Take [address] MG EC 2-02 by mouth [facility] tablet 12:45: daily. [address] atorvastati Yes 40mg QD Take [address] n (LIPITOR) 2-02 by mouth Luke s 40 MG 12:45: daily. Medical [facility] 42 [place] tamsulosin 0 Yes .4mg QD Take 0.4 [...] 2-02 by mouth [facility] tablet 12:45: daily. [address] atorvastati 0 Yes 40mg QD Take [...] [address] MG EC 02 by mouth [facility] tablet 12:45: daily. Medical 42 Center atorvastati Yes 40mg QD Take [address] n (LIPITOR) 2-02 by mouth Luke s 40 MG 12:45: daily. Medical tablet 42 Center tamsulosin Yes .4mg QD Take 0.[address] (FLOMAX) 2-02 mg by [facility] 0.4 mg Cp24 12:45: mouth Medic al 24 hr 42 daily. [place] capsule HYDROcodone Yes 1{tbl} Take [address] -acetaminop 2-02 tablet by Gilberto es hen (NORCO 12:45: mouth Medica l 5-325) 42 every 8 Center 5-325 mg (eight) per tablet hours as needed for Pain. warfarin 2021- No 6mg QD Take [address] (COUMADIN, 04-08- by mouth Luke s JANTOVEN) 6 11:00: 00:00 daily. Med ical MG tablet 48 :00 [place] warfarin 2021- No 5mg QD Take 1 [...] [facility] (VOLTAREN) 04-04 by mouth 2 Lisandra kes 75 MG EC 04:49: 00:00 (two) Medical tablet 47 :00 times Center daily. diclofenac 2020-03 Yes [id number] 75mg Take 1 Univers 75 mg EC 03-07 tablet by ity of tablet 00:00: mouth 2 [place] 00 (two) Medical times Branch daily with meals. diclofenac 2020-03 Yes [id number] 75mg Take 1 Univers 75 mg EC 1-01 9109 tablet by ity of tablet 00:00: mouth (two) Medical times Branch daily with meals. diclofenac 2020- Yes [id number] 75mg Take 1 Univers 75 mg EC 1- 9109 tablet by ity of tablet 00:00: mouth (two) Medical times Branch daily with meals. diclofenac 2020-1 Yes [id number] 75mg Take 1 Univers 75 mg EC 1- 9109 tablet by ity of tablet 00:00: mouth (two) Medical times Branch daily with meals. diclofenac 2020-0 202- No [id number] 75mg Take 1 Univers 75 mg EC 8-10 09-10 9109 tablet by ity o f tablet 00:00: 04:59 mouth 2 00 :00 (two) Medical times Branch daily with meals for 30 days. diclofenac 2020-0 Yes [id number] 75mg Take 1 Univers 75 mg EC 7-08 9109 tablet by ity of tablet 00:00: mouth (two) Medical times Branch daily with meals. diclofenac 2020-0 Yes [id number] 75mg Take 1 Univers 75 mg EC 7-08 9109 tablet by ity of tablet 00:00: mouth [place] (two) Medical times Branch daily with meals. diclofenac 2020-0 Yes [id number] 75mg Take 1 Univers 75 mg EC 7-08 9109 tablet by ity of tablet 00:00: mouth [place] (two) Medical times Branch daily with meals. diclofenac 2020-0 2020- No [id number] 75mg Take 1 Univers 75 mg EC 7-08 - 9109 tablet by ity o f tablet 00:00: 00:00 mouth 2 [place] 00 :00 (two) Medical times Branch daily with meals. diclofenac 2020-0 Yes [id number] 75mg Take 1 Univers 75 mg EC 6-10 9109 tablet by ity of tablet 00:00: mouth [place] (two) Medical times Branch daily with meals. diclofenac 2020-0 Yes [id number] 75mg Take 1 Univers 75 mg EC 6-10 9109 tablet by ity of tablet 00:00: mouth 2 [place] (two) Medical times Branch daily with meals. diclofenac 2020-0 Yes [id number] 75mg Take 1 Univers 75 mg EC 6-10 9109 tablet by ity of tablet 00:00: mouth (two) Medical times Branch daily with meals. diclofenac 2021-0 Yes [id number] 75mg Take 1 Univers 75 mg EC 6-10 9109 tablet by ity of tablet 00:00: mouth (two) Medical times Branch daily with meals. diclofenac 2021-0 Yes [id number] 75mg Take 1 Univers 75 mg EC 6-10 9109 tablet by ity of tablet 00:00: mouth (two) Medical times Branch daily with meals. diclofenac 2021-0 Yes [id number] 75mg Take 1 Univers 75 mg EC 6-10 9109 tablet by ity of tablet 00:00: mouth (two) Medical times Branch daily with meals. diclofenac 2021-0 Yes [id number] 75mg Take 1 Univers 75 mg EC 6-10 9109 tablet by ity of tablet 00:00: mouth (two) Medical times Branch daily with meals. diclofenac 2021-0 Yes [id number] 75mg Take 1 Univers 75 mg EC [...] daily with meals. diclofenac 2021-0 2021- No [id number] 75mg Take 1 Univers 75 mg EC -06-26 9109 tablet by ity o f tablet [...] tablet by ity of tablet 00:00: mouth [place] (two) Medical times Branch daily with meals. diclofenac 2021-0 Yes 75mg Take 1 Unive rs 75 mg EC 1-14 tablet by ity of tablet 00:00: mouth 2 [place] (two) Medical times Branch daily with meals. diclofenac 2021-0 Yes 75mg Take 1 Unive rs 75 mg EC 1-14 tablet by ity of tablet 00:00: mouth [place] (two) Medical times Branch daily with meals. diclofenac 2021-0 Yes 75mg Take 1 Unive rs 75 mg EC 1-14 tablet by ity of tablet 00:00: mouth [place] (two) Medical times Branch daily with meals. diclofenac 2020-1 2020- No [id number] 75mg Take 1 Univers 75 mg EC 1-23 12-24 9109 tablet by ity o f tablet 00:00: 05:59 mouth 2 [place] 00 :00 (two) Medical times Branch daily with meals for 30 days. diclofenac 2020-0 Yes [id number] 75mg Take 1 Univers 75 mg EC 7-14 9109 tablet by ity of tablet 00:00: mouth [place] (two) Medical times Branch daily with meals. diclofenac 2020-0 Yes [id number] 75mg Take 1 Univers 75 mg EC 7-14 9109 tablet by ity of tablet 00:00: mouth [place] (two) Medical times Branch daily with meals. diclofenac 2020-0 Yes [id number] 75mg Take 1 Univers 75 mg EC 7-14 9109 tablet by ity of tablet 00:00: mouth [place] (two) Medical times Branch daily with meals. diclofenac 2020-0 Yes [id number] 75mg Take 1 Univers 75 mg EC 7-14 9109 tablet by ity of tablet 00:00: mouth 2 [place] (two) Medical times Branch daily with meals. diclofenac 2020-0 Yes [id number] 75mg Take 1 Univers 75 mg EC 7-14 9109 tablet by ity of tablet 00:00: mouth 2 [place] 00 (two) Medical times Branch daily with meals. diclofenac 2020-0 Yes [id number] 75mg Take 1 Univers 75 mg EC 7-14 9109 tablet by ity of tablet 00:00: mouth 2 [place] (two) Medical times Branch daily with meals. diclofenac 2020-0 Yes [id number] 75mg Take 1 Univers 75 mg EC 7-14 9109 tablet by ity of tablet 00:00: [facility] [place] (two) Medical times Branch daily with meals. diclofenac 2020-0 Yes [id number] 75mg Take 1 Univers 75 mg EC 7-14 9109 tablet by ity of tablet 00:00: [facility] [place] (two) Medical times Branch daily with meals. diclofenac 2020-0 Yes [id number] 75mg Take 1 Univers 75 mg EC 7-14 9109 tablet by ity of tablet 00:00: mouth [place] (two) Medical times Branch daily with meals. diclofenac 2020-0 Yes [id number] 75mg Take 1 Univers 75 mg EC 7-14 9109 tablet by ity of tablet 00:00: [facility] [place] (two) Medical times Branch daily with meals. diclofenac 2020-0 Yes [id number] 75mg Take 1 Univers 75 mg EC 7-14 9109 tablet by ity of tablet 00:00: [address] (two) Medical times Branch daily with meals. diclofenac 2020-0 Yes [id number] 75mg Take 1 Univers 75 mg EC 7-14 9109 tablet by ity of tablet 00:00: [address] (two) Medical times Branch daily with meals. diclofenac 2020-0 Yes [id number] 75mg Take 1 Univers 75 mg EC 7-14 9109 tablet by ity of tablet 00:00: [facility] [place] (two) Medical times Branch daily with meals. diclofenac 2020-0 Yes [id number] 75mg Take 1 Univers 75 mg EC 7-14 9109 tablet by ity of tablet 00:00: [address] (two) Medical times Branch daily with meals. diclofenac 2020-0 Yes [id number] 75mg Take 1 Univers 75 mg EC 7-14 9109 tablet by ity of tablet 00:00: [address] (two) Medical times Branch daily with meals. diclofenac 2020-0 Yes [id number] 75mg Take 1 Univers 75 mg EC 7-14 9109 tablet by ity of tablet 00:00: mouth [address] [place] [address] (two) Medical times Branch daily with meals. diclofenac 2020-0 Yes [id number] 75mg Take 1 Univers 75 mg EC 7-14 9109 tablet by ity of tablet 00:00: mouth 2 (two) Medical times Branch daily with meals. diclofenac 2020-0 Yes [id number] 75mg Take 1 Univers 75 mg EC 7-14 9109 tablet by ity of tablet 00:00: mouth 2 (two) Medical times Branch daily with meals. diclofenac 2020-0 Yes [id number] 75mg Take 1 Univers 75 mg EC 7-14 9109 tablet by ity of tablet 00:00: mouth 2 (two) Medical times Branch daily with meals. diclofenac 2020-0 Yes [id number] 75mg Take 1 Univers 75 mg EC 7-14 9109 tablet by ity of tablet 00:00: mouth 2 (two) Medical times Branch daily with meals. diclofenac 2020-0 Yes [id number] 75mg Take 1 Univers 75 mg EC 7-14 9109 tablet by ity of tablet 00:00: mouth 2 (two) Medical times Branch daily with meals. diclofenac 2020-0 Yes [id number] 75mg Take 1 Univers 75 mg EC 7-14 9109 tablet by ity of tablet 00:00: mouth (two) Medical times Branch daily with meals. diclofenac 2020-0 Yes [id number] 75mg Take 1 Univers 75 mg EC 7-14 9109 tablet by ity of tablet 00:00: mouth (two) Medical times Branch daily with meals. amoxicillin 2020-0 Yes [id number] 500mg Take 1 Univers 500 mg 6-28 capsule by ity of capsule 00:00: mouth (three) Medical times Branch daily. amoxicillin 2020-0 Yes [id number] 500mg Take 1 Univers 500 mg 6-28 capsule by ity of capsule 00:00: mouth (three) Medical times Branch daily. amoxicillin 2020-0 Yes [id number] 500mg Take 1 Univers 500 mg 6-28 capsule by ity of capsule 00:00: mouth 3 (three) Medical times Branch daily. amoxicillin 2020-0 Yes [id number] 500mg Take 1 Univers 500 mg 6-28 capsule by ity of capsule 00:00: mouth 3 (three) Medical times Branch daily. amoxicillin 2020-0 Yes [id number] 500mg Take 1 Univers 500 mg 6-28 capsule by ity of capsule 00:00: mouth 3 (three) Medical times Branch daily. amoxicillin 2020-0 Yes [id number] 500mg Take 1 Univers 500 mg 6-28 capsule by ity of capsule 00:00: mouth [place] (three) Medical times Branch daily. amoxicillin 2020-0 Yes [id number] 500mg Take 1 Univers 500 mg 6-28 capsule by ity of capsule 00:00: mouth 3 [place] (three) Medical times Branch daily. amoxicillin 2020-0 Yes [id number] 500mg Take 1 Univers 500 mg 6-28 capsule by ity of capsule 00:00: mouth [place] (three) Medical times Branch daily. amoxicillin 2020-0 Yes [id number] 500mg Take 1 Univers 500 mg 6-28 capsule by ity of capsule 00:00: mouth [place] (three) Medical times Branch daily. amoxicillin 2020-0 Yes [id number] 500mg Take 1 Univers 500 mg 6-28 capsule by ity of capsule 00:00: mouth [place] (three) Medical times Branch daily. amoxicillin 2020-0 Yes [id number] 500mg Take 1 Univers 500 mg 6-28 capsule by ity of capsule 00:00: mouth [place] (three) Medical times Branch daily. amoxicillin 2020-0 Yes [id number] 500mg Take 1 Univers 500 mg 6-28 capsule by ity of capsule 00:00: mouth [place] (three) Medical times Branch daily. amoxicillin 2020-0 Yes [id number] 500mg Take 1 Univers 500 mg 6-28 capsule by ity of capsule 00:00: mouth [place] (three) Medical times Branch daily. amoxicillin 2020-0 Yes [id number] 500mg Take 1 Univers 500 mg 6-28 capsule by ity of capsule 00:00: mouth [address] [place] [address] (three) Medical times Branch daily. amoxicillin 2020-0 Yes [id number] 500mg Take 1 Univers 500 mg 6-28 capsule by ity of capsule 00:00: mouth [place] (three) Medical times Branch daily. amoxicillin 2020-0 Yes [id number] 500mg Take 1 Univers 500 mg 6-28 capsule by ity of capsule 00:00: mouth 3 [place] (three) Medical times Branch daily. amoxicillin 2020-0 Yes [id number] 500mg Take 1 Univers 500 mg 6-28 capsule by ity of capsule 00:00: mouth [address] [place] [address] (three) Medical times Branch daily. amoxicillin 2020-0 Yes [id number] 500mg Take 1 Univers 500 mg 6-28 capsule by ity of capsule 00:00: mouth (three) Medical times Branch daily. amoxicillin 2020-0 Yes [id number] 500mg Take 1 Univers 500 mg 6-28 capsule by ity of capsule 00:00: mouth (three) Medical times Branch daily. amoxicillin 2020-0 Yes [id number] 500mg Take 1 Univers 500 mg 6-28 capsule by ity of capsule 00:00: mouth (three) Medical times Branch daily. amoxicillin 2020-0 Yes [id number] 500mg Take 1 Univers 500 mg 6-28 capsule by ity of capsule 00:00: mouth (three) Medical times Branch daily. amoxicillin 2020-0 Yes [id number] 500mg Take 1 Univers 500 mg 6-28 capsule by ity of capsule 00:00: mouth (three) Medical times Branch daily. amoxicillin 2020-0 Yes [id number] 500mg Take 1 Univers 500 mg 6-28 capsule by ity of capsule 00:00: mouth (three) Medical times Branch daily. amoxicillin 2020-0 Yes [id number] 500mg Take 1 Univers 500 mg 6-28 [...] daily with meals. mirabegron 2020-0 2020- No [id number] 25mg Take 1 Univers 25 mg 6-05 07-06 tablet by ity of tablet 00:00: 04:59 mouth [place] 00 :00 daily for Medical 30 days. Branch mirabegron 2020-0 2020- No [id number] 25mg Take 1 Univers 25 mg 6-05 07-06 tablet by ity of tablet 00:00: 04:59 mouth [place] 00 :00 daily for Medical 30 days. Branch mirabegron 2020-0 2020- No [id number] 25mg Take 1 Univers 25 mg 6-05 07-06 tablet by ity of tablet 00:00: 04:59 mouth [place] 00 :00 daily for Medical 30 days. Branch mirabegron 2020-0 2020- No [id number] 25mg Take 1 Univers 25 mg 6-05 07-06 tablet by ity of tablet 00:00: 04:59 mouth [place] 00 :00 daily for Medical 30 days. Branch mirabegron 2020-0 2020- No [id number] 25mg Take 1 Univers 25 mg 6-05 07-06 tablet by ity of tablet 00:00: 04:59 mouth [place] 00 :00 daily for Medical 30 days. Branch mirabegron 2020-0 2020- No [id number] 25mg Take 1 Univers 25 mg 6-05 [...] of 80 mg 19:00: 17:48 ONCE, 1 [place] 00 :00 dose, Fri Medical 05/04/19 at [...] hours of surgery cephALEXin 2020-0 2020- No [id number] 500mg Take 2 Univers 250 mg 05-04-03 capsules ity of capsule 00:00: 05:59 by mouth [place] 00 :00 every 12 Medical (twelve) Branch hours for 3 days. cephALEXin 2020-0 2020- No [id number] 500mg Take 2 Univers 250 mg 05-04-03 capsules ity of capsule 00:00: 05:59 by mouth [place] 00 :00 every 12 Medical (twelve) Branch hours for 3 days. atorvastati 2020-0 Yes 20mg Take 20 mg Univers n 20 mg 2-20 by mouth ity of tablet 00:00: daily. Medical Branch metoprolol 2020-0 Yes 25mg Take 25 mg U nivers tartrate 25 2-20 by mouth 2 it y of mg tablet 00:00: (two) [place] 00 times Medical daily. Branch atorvastati 2020-0 Yes 20mg Take 20 mg Univers n 20 mg 2-20 by mouth ity of tablet 00:00: daily. Medical Branch metoprolol 2020-0 Yes 25mg Take 25 mg U nivers tartrate 25 2-20 by mouth 2 it y of mg tablet 00:00: (two) [place] 00 times Medical daily. Branch atorvastati 2020-0 Yes 20mg Take 20 mg Univers n 20 mg 2-20 by mouth ity of tablet 00:00: daily. Medical Branch metoprolol 2020-0 Yes 25mg Take 25 mg U nivers tartrate 25 2-20 by mouth 2 it y of mg tablet 00:00: (two) [place] times Medical daily. Branch atorvastati 2020-0 Yes 20mg Take 20 mg Univers n 20 mg 2-20 by mouth ity of tablet 00:00: daily. Medical Branch metoprolol 2020-0 Yes 25mg Take 25 mg U nivers tartrate 25 2-20 by mouth 2 it y of mg tablet 00:00: (two) [place] 00 times Medical daily. Branch atorvastati 2020-0 Yes 20mg Take 20 mg Univers n 20 mg 2-20 by mouth ity of tablet 00:00: daily. Medical Branch metoprolol 2020-0 Yes 25mg Take 25 mg U nivers tartrate 25 2-20 by mouth 2 it y of mg tablet 00:00: (two) [place] 00 times Medical daily. Branch atorvastati 2020-0 Yes 20mg Take 20 mg [facility] 20 mg 2-20 by mouth ity of tablet 00:00: daily. [facility] metoprolol 2020-0 Yes 25mg Take 25 mg [facility] tartrate 25 2-20 by mouth 2 it y of mg tablet 00:00: (two) [place] 00 times Medical daily. Branch atorvastati 2020-0 Yes 20mg Take 20 mg [facility] 20 mg 2-20 by mouth ity of tablet 00:00: daily. [facility] metoprolol 2020-0 Yes 25mg Take 25 mg [facility] tartrate 25 2-20 by mouth 2 it y of mg tablet 00:00: (two) [place] 00 times Medical daily. Branch atorvastati 2020-0 Yes 20mg Take 20 mg [facility] 20 mg 2-20 by mouth ity of tablet 00:00: daily. [facility] metoprolol 2020-0 Yes 25mg Take 25 mg [facility] tartrate 25 2-20 by mouth 2 it y of mg tablet 00:00: (two) [place] 00 times Medical daily. Branch atorvastati 2020-0 Yes 20mg Take 20 mg [facility] 20 mg 2-20 by mouth ity of tablet 00:00: daily. [place] [facility] metoprolol 2020-0 Yes 25mg Take 25 mg [facility] tartrate 25 2-20 by mouth 2 it y of mg tablet 00:00: (two) [place] times Medical daily. Branch atorvastati 2020-0 Yes 20mg Take 20 mg [facility] 20 mg 2-20 by mouth ity of tablet 00:00: daily. [place] [facility] metoprolol 2020-0 Yes 25mg Take 25 mg [facility] tartrate 25 2-20 by mouth 2 it y of mg tablet 00:00: (two) [place] times Medical daily. Branch atorvastati 2020-0 Yes 20mg Take 20 mg [facility] 20 mg 2-20 by mouth ity of tablet 00:00: daily. [place] [facility] metoprolol 2020-0 Yes 25mg Take 25 mg [facility] tartrate 25 2-20 by mouth 2 it y of mg tablet 00:00: (two) [place] times Medical daily. Branch atorvastati 2020-0 Yes 20mg Take 20 mg [facility] 20 mg 2-20 by mouth ity of tablet 00:00: daily. [place] [facility] metoprolol 2020-0 Yes 25mg Take 25 mg [facility] tartrate 25 2-20 by mouth 2 it y of mg tablet 00:00: (two) [place] 00 times Medical daily. Branch atorvastati 2020-0 Yes 20mg Take 20 mg [facility] 20 mg 2-20 by mouth ity of tablet 00:00: daily. [place] [facility] metoprolol 2020-0 Yes 25mg Take 25 mg [facility] tartrate 25 2-20 by mouth 2 it y of mg tablet 00:00: (two) [place] 00 times Medical daily. Branch atorvastati 2020-0 Yes 20mg Take 20 mg [facility] 20 mg 2-20 by mouth ity of tablet 00:00: daily. [facility] metoprolol 2020-0 Yes 25mg Take 25 mg [facility] tartrate 25 2-20 by mouth 2 it y of mg tablet 00:00: (two) [place] 00 times Medical daily. Branch atorvastati 2020-0 Yes 20mg Take 20 mg [facility] 20 mg 2-20 by mouth ity of tablet 00:00: daily. [facility] metoprolol 2020-0 Yes 25mg Take 25 mg [facility] tartrate 25 2-20 by mouth 2 it y of mg tablet 00:00: (two) [place] times Medical daily. Branch atorvastati 2020-0 Yes 20mg Take 20 mg [facility] 20 mg 2-20 by mouth ity of tablet 00:00: daily. [facility] metoprolol 2020-0 Yes 25mg Take 25 mg [facility] tartrate 25 2-20 by mouth 2 it y of mg tablet 00:00: (two) [place] times Medical daily. Branch atorvastati 2020-0 Yes 20mg Take 20 mg [facility] 20 mg 2-20 by mouth ity of tablet 00:00: daily. [facility] metoprolol 2020-0 Yes 25mg Take 25 mg [facility] tartrate 25 2-20 by mouth 2 it y of mg tablet 00:00: (two) [place] 00 times Medical daily. Branch atorvastati 2020-0 Yes 20mg Take 20 mg [facility] 20 mg 2-20 by mouth ity of tablet 00:00: daily. [facility] metoprolol 2020-0 Yes 25mg Take 25 mg [facility] tartrate 25 2-20 by mouth 2 it y of mg tablet 00:00: (two) [place] 00 times Medical daily. Branch atorvastati 2020-0 Yes 20mg Take 20 mg [facility] 20 mg 2-20 by mouth ity of tablet 00:00: daily. [facility] metoprolol 2020-0 Yes 25mg Take 25 mg [facility] tartrate 25 2-20 by mouth 2 it y of mg tablet 00:00: (two) [place] times Medical daily. Branch atorvastati 2020-0 Yes 20mg Take 20 mg [facility] 20 mg 2-20 by mouth ity of tablet 00:00: daily. [facility] metoprolol 2020-0 Yes 25mg Take 25 mg [facility] tartrate 25 2-20 by mouth 2 it y of mg tablet 00:00: (two) [place] 00 times Medical daily. Branch atorvastati 2020-0 Yes 20mg Take 20 mg [facility] 20 mg 2-20 by mouth ity of tablet 00:00: daily. [facility] metoprolol 2020-0 Yes 25mg Take 25 mg [facility] tartrate 25 2-20 by mouth 2 it y of mg tablet 00:00: (two) [place] 00 times Medical daily. Branch atorvastati 2020-0 Yes 20mg Take 20 mg [facility] 20 mg 2-20 by mouth ity of tablet 00:00: daily. [facility] metoprolol 2020-0 Yes 25mg Take 25 mg [facility] n[facility] tartrate 25 2-20 by mouth 2 it y of mg tablet 00:00: (two) [place] times Medical daily. Branch atorvastati 2020-0 Yes 20mg Take 20 mg [facility] 20 mg 2-20 by mouth ity of tablet 00:00: daily. [facility] metoprolol 2020-0 Yes 25mg Take 25 mg [facility] n[facility] tartrate 25 2-20 by mouth 2 it y of mg tablet 00:00: (two) [place] 00 times Medical daily. Branch atorvastati 2020-0 Yes 20mg Take 20 mg [facility] 20 mg 2-20 by mouth ity of tablet 00:00: daily. [facility] metoprolol 2020-0 Yes 25mg Take 25 mg [facility] n[facility] tartrate 25 2-20 by mouth 2 it y of mg tablet 00:00: (two) [place] 00 times Medical daily. Branch atorvastati 2020-0 Yes 20mg Take 20 mg [facility] 20 mg 2-20 by mouth ity of tablet 00:00: daily. [facility] metoprolol 2020-0 Yes 25mg Take 25 mg [facility] tartrate 25 2-20 by mouth 2 it y of mg tablet 00:00: (two) [place] 00 times Medical daily. Branch atorvastati 2020-0 Yes 20mg Take 20 mg [facility] 20 mg 2-20 by mouth ity of tablet 00:00: daily. [facility] metoprolol 2020-0 Yes 25mg Take 25 mg [facility] tartrate 25 2-20 by mouth 2 it y of mg tablet 00:00: (two) [place] 00 times Medical daily. Branch atorvastati 2020-0 Yes 20mg Take 20 mg [facility] 20 mg 2-20 by mouth ity of tablet 00:00: daily. [place] [facility] metoprolol 2020-0 Yes 25mg Take 25 mg [facility] tartrate 25 2-20 by mouth 2 it y of mg tablet 00:00: (two) [place] 00 times Medical daily. Branch atorvastati 2020-0 Yes 20mg Take 20 mg [facility] 20 mg 2-20 by mouth ity of tablet 00:00: daily. [place] [facility] metoprolol 2020-0 Yes 25mg Take 25 mg [facility] tartrate 25 2-20 by mouth 2 it y of mg tablet 00:00: (two) [place] times Medical daily. Branch atorvastati 2020-0 Yes 20mg Take 20 mg [facility] 20 mg 2-20 by mouth ity of tablet 00:00: daily. [place] [facility] metoprolol 2020-0 Yes 25mg Take 25 mg [facility] tartrate 25 2-20 by mouth 2 it y of mg tablet 00:00: (two) [place] [facility] daily. Branch atorvastati 2020-0 Yes 20mg Take 20 mg [facility] 20 mg 2-20 by mouth ity of tablet 00:00: daily. [place] [facility] metoprolol 2020-0 Yes 25mg Take 25 mg [facility] tartrate 25 2-20 by mouth 2 it y of mg tablet 00:00: (two) [place] times Medical daily. Branch atorvastati 2020-0 Yes 20mg Take 20 mg [facility] 20 mg 2-20 by mouth ity of tablet 00:00: daily. [place] [facility] metoprolol 2020-0 Yes 25mg Take 25 mg [facility] tartrate 25 2-20 by mouth 2 it y of mg tablet 00:00: (two) [place] 00 times Medical daily. Branch atorvastati 2020-0 Yes 20mg Take 20 mg [facility] n 20 mg 2-20 by mouth ity of tablet 00:00: daily. [place] [facility] metoprolol 2020-0 Yes 25mg Take 25 mg [facility] tartrate 25 2-20 by mouth 2 it y of mg tablet 00:00: (two) [place] 00 times Medical daily. Branch atorvastati 2020-0 Yes 20mg Take 20 mg [facility] 20 mg 2-20 by mouth ity of tablet 00:00: daily. [facility] metoprolol 2020-0 Yes 25mg Take 25 mg [facility] tartrate 25 2-20 by mouth 2 it y of mg tablet 00:00: (two) [place] 00 times Medical daily. Branch atorvastati 2020-0 Yes 20mg Take 20 mg [facility] 20 mg 2-20 by mouth ity of tablet 00:00: daily. [facility] metoprolol 2020-0 Yes 25mg Take 25 mg [facility] tartrate 25 2-20 by mouth 2 it y of mg tablet 00:00: (two) [place] times Medical daily. Branch atorvastati 2020-0 Yes 20mg Take 20 mg [facility] 20 mg 2-20 by mouth ity of tablet 00:00: daily. [place] [facility] metoprolol 2020-0 Yes 25mg Take 25 mg [facility] tartrate 25 2-20 by mouth 2 it y of mg tablet 00:00: (two) [place] times Medical daily. Branch atorvastati 2020-0 Yes 20mg Take 20 mg [facility] 20 mg 2-20 by mouth ity of tablet 00:00: daily. [facility] metoprolol 2020-0 Yes 25mg Take 25 mg [facility] tartrate 25 2-20 by mouth 2 it y of mg tablet 00:00: (two) [place] 00 times Medical daily. Branch atorvastati 2020-0 Yes 20mg Take 20 mg [facility] 20 mg 2-20 by mouth ity of tablet 00:00: daily. [facility] metoprolol 2020-0 Yes 25mg Take 25 mg [facility] tartrate 25 2-20 by mouth 2 it y of mg tablet 00:00: (two) [place] 00 times Medical daily. Branch atorvastati 2020-0 Yes 20mg Take 20 mg [facility] 20 mg 2-20 by mouth ity of tablet 00:00: daily. [place] [facility] metoprolol 2020-0 Yes 25mg Take 25 mg [facility] tartrate 25 2-20 by mouth 2 it y of mg tablet 00:00: (two) [place] times Medical daily. Branch atorvastati 2020-0 Yes 20mg Take 20 mg [facility] 20 mg 2-20 by mouth ity of tablet 00:00: daily. [place] [facility] metoprolol 2020-0 Yes 25mg Take 25 mg [facility] tartrate 25 2-20 by mouth 2 it y of mg tablet 00:00: (two) [place] 00 times Medical daily. Branch atorvastati 2020-0 Yes 20mg Take 20 mg [facility] 20 mg 2-20 by mouth ity of tablet 00:00: daily. [place] [facility] metoprolol 2020-0 Yes 25mg Take 25 mg [facility] tartrate 25 2-20 by mouth 2 it y of mg tablet 00:00: (two) [place] 00 times Medical daily. Branch atorvastati 2020-0 Yes 20mg Take 20 mg [facility] n 20 mg 2-20 by mouth ity of tablet 00:00: daily. [place] [facility] metoprolol 2020-0 Yes 25mg Take 25 mg [facility] tartrate 25 2-20 by mouth 2 it y of mg tablet 00:00: (two) [place] times Medical daily. Branch atorvastati 2020-0 Yes 20mg Take 20 mg [facility] n 20 mg 2-20 by mouth ity of tablet 00:00: daily. [place] [facility] metoprolol 2020-0 Yes 25mg Take 25 mg [facility] tartrate 25 2-20 by mouth 2 it y of mg tablet 00:00: (two) [place] 00 times Medical daily. Branch atorvastati 2020-0 Yes 20mg Take 20 mg [facility] n 20 mg 2-20 by mouth ity of tablet 00:00: daily. [place] [facility] metoprolol 2020-0 Yes 25mg Take 25 mg [facility] tartrate 25 2-20 by mouth 2 it y of mg tablet 00:00: (two) [place] 00 times Medical daily. Branch tamsulosin 2020-0 Yes [...] mouth ity of hr capsule 17:20: daily. [place] [address] [facility] Branch om 2020-0 Yes Take by [facility] 3/E/linol/a 2-14 mouth. ity of la/oleic/gl 17:20: [place] a/lip 21 Medical (OMEGA Branch 3-6-9 ORAL) tamsulosin 2020-0 Yes Take by Univ ers 0.4 mg 24 2-14 mouth ity of hr capsule 17:20: daily. [place] [address] [facility] Branch om 2020-0 Yes Take by [facility] 3/E/linol/a 2-14 mouth. ity of la/oleic/gl 17:20: [place] a/lip 21 Medical (OMEGA Branch 3-6-9 ORAL) tamsulosin 2020-0 Yes Take by [facility] ers 0.4 mg 24 2-14 mouth ity of hr capsule 17:20: daily. [place] [address] [facility] Branch om 2020-0 Yes Take by [facility] 3/E/linol/a 2-14 mouth. ity of la/oleic/gl 17:20: [place] a/lip 21 Medical (OMEGA Branch 3-6-9 ORAL) tamsulosin 2019-0 Yes Take by [facility] ers 0.4 mg 24 2-14 mouth ity of hr capsule 17:20: daily. [place] [address] [facility] Branch om 2020-0 Yes Take by [facility] 3/E/linol/a 2-14 mouth. ity of la/oleic/gl 17:20: [place] a/lip 21 Medical (OMEGA Branch 3-6-9 ORAL) tamsulosin 2020-0 Yes Take by [facility] ers 0.4 mg 24 2-14 mouth ity of hr capsule 17:20: daily. [place] [address] [facility] om 2020-0 Yes Take by [facility] 3/E/linol/a 2-14 mouth. ity of la/oleic/gl 17:20: [place] a/lip 21 Medical (OMEGA Branch 3-6-9 ORAL) tamsulosin 2020-0 Yes Take by [facility] ers 0.4 mg 24 2-14 mouth ity of hr capsule 17:20: daily. [place] [address] [facility] om 2020-0 Yes Take by [facility] 3/E/linol/a 2-14 mouth. ity of la/oleic/gl 17:20: [place] a/lip 21 Medical (OMEGA Branch 3-6-9 ORAL) tamsulosin 2020-0 Yes Take by [facility] ers 0.4 mg 24 2-14 mouth ity of hr capsule 17:20: daily. [place] [address] [facility] om 2020-0 Yes Take by [facility] 3/E/linol/a 2-14 mouth. ity of la/oleic/gl 17:20: [place] a/lip 21 Medical (OMEGA Branch 3-6-9 ORAL) tamsulosin 2020-0 Yes Take by [facility] ers 0.4 mg 24 2-14 mouth ity of hr capsule 17:20: daily. [place] [address] [facility] om 2020-0 Yes Take by [facility] 3/E/linol/a 2-14 mouth. ity of la/oleic/gl 17:20: [place] a/lip 21 Medical (OMEGA Branch 3-6-9 ORAL) tamsulosin 2020-0 Yes Take by [facility] ers 0.4 mg 24 2-14 mouth ity of hr capsule 17:20: daily. [place] [address] [facility] om 2020-0 Yes Take by [facility] 3/E/linol/a 2-14 mouth. ity of la/oleic/gl 17:20: [place] a/lip 21 Medical (OMEGA Branch 3-6-9 ORAL) tamsulosin 2020-0 Yes Take by [facility] ers 0.4 mg 24 2-14 mouth ity of hr capsule 17:20: daily. [place] [address] [facility] om 2020-0 Yes Take by [facility] 3/E/linol/a 2-14 mouth. ity of la/oleic/gl 17:20: [place] a/lip 21 Medical (OMEGA Branch 3-6-9 ORAL) tamsulosin 2020-0 Yes Take by [facility] ers 0.4 mg 24 2-14 mouth ity of hr capsule 17:20: daily. [place] [address] [facility] om 2020-0 Yes Take by [facility] 3/E/linol/a 2-14 mouth. ity of la/oleic/gl 17:20: [place] a/lip 21 Medical (OMEGA Branch 3-6-9 ORAL) tamsulosin 2020-0 Yes Take by [facility] ers 0.4 mg 24 2-14 mouth ity of hr capsule 17:20: daily. [place] [address] [facility] om 2020-0 Yes Take by [facility] 3/E/linol/a 2-14 mouth. ity of la/oleic/gl 17:20: [place] a/lip 21 Medical (OMEGA Branch 3-6-9 ORAL) tamsulosin 2020-0 Yes Take by [facility] ers 0.4 mg 24 2-14 mouth ity of hr capsule 17:20: daily. [place] [address] [facility] om 2020-0 Yes Take by [facility] 3/E/linol/a 2-14 mouth. ity of la/oleic/gl 17:20: [place] a/lip 21 Medical (OMEGA Branch 3-6-9 ORAL) tamsulosin 2020-0 Yes Take by [facility] ers 0.4 mg 24 2-14 mouth ity of hr capsule 17:20: daily. [place] [address] [facility] om 2020-0 Yes Take by [facility] 3/E/linol/a 2-14 mouth. ity of la/oleic/gl 17:20: [place] a/lip 21 Medical (OMEGA Branch 3-6-9 ORAL) tamsulosin 2020-0 Yes Take by [facility] ers 0.4 mg 24 2-14 mouth ity of hr capsule 17:20: daily. [place] [address] [facility] Branch om 2020-0 Yes Take by [facility] 3/E/linol/a 2-14 mouth. ity of la/oleic/gl 17:20: [place] a/lip 21 Medical (OMEGA Branch 3-6-9 ORAL) tamsulosin 2020-0 Yes Take by [facility] ers 0.4 mg 24 2-14 mouth ity of hr capsule 17:20: daily. [place] [address] [facility] Branch om 2020-0 Yes Take by [facility] 3/E/linol/a 2-14 mouth. ity of la/oleic/gl 17:20: [place] a/lip 21 Medical (OMEGA Branch 3-6-9 ORAL) tamsulosin 2020-0 Yes Take by [facility] ers 0.4 mg 24 2-14 mouth ity of hr capsule 17:20: daily. [place] [address] [facility] Branch om 2020-0 Yes Take by [facility] 3/E/linol/a 2-14 mouth. ity of la/oleic/gl 17:20: [place] a/lip 21 Medical (OMEGA Branch 3-6-9 ORAL) tamsulosin 2020-0 Yes Take by [facility] ers 0.4 mg 24 2-14 mouth ity of hr capsule 17:20: daily. [place] [address] [facility] om 2020-0 Yes Take by [facility] 3/E/linol/a 2-14 mouth. ity of la/oleic/gl 17:20: [place] a/lip 21 Medical (OMEGA Branch 3-6-9 ORAL) tamsulosin 2020-0 Yes Take by [facility] ers 0.4 mg 24 2-14 mouth ity of hr capsule 17:20: daily. [place] [address] [facility] om 2020-0 Yes Take by [facility] 3/E/linol/a 2-14 mouth. ity of la/oleic/gl 17:20: [place] a/lip 21 Medical (OMEGA Branch 3-6-9 ORAL) tamsulosin 2020-0 Yes Take by [facility] ers 0.4 mg 24 2-14 mouth ity of hr capsule 17:20: daily. [place] [address] [facility] om 2020-0 Yes Take by [facility] 3/E/linol/a 2-14 mouth. ity of la/oleic/gl 17:20: [place] a/lip 21 Medical (OMEGA Branch 3-6-9 ORAL) tamsulosin 2020-0 Yes Take by [facility] ers 0.4 mg 24 2-14 mouth ity of hr capsule 17:20: daily. [place] [address] [facility] om 2020-0 Yes Take by [facility] 3/E/linol/a 2-14 mouth. ity of la/oleic/gl 17:20: [place] a/lip 21 Medical (OMEGA Branch 3-6-9 ORAL) tamsulosin 2020-0 Yes Take by [facility] ers 0.4 mg 24 2-14 mouth ity of hr capsule 17:20: daily. [place] [address] [facility] om 2020-0 Yes Take by [facility] 3/E/linol/a 2-14 mouth. ity of la/oleic/gl 17:20: [place] a/lip 21 Medical (OMEGA Branch 3-6-9 ORAL) tamsulosin 2020-0 Yes Take by [facility] ers 0.4 mg 24 2-14 mouth ity of hr capsule 17:20: daily. [place] [address] [facility] om 2020-0 Yes Take by [facility] 3/E/linol/a 2-14 mouth. ity of la/oleic/gl 17:20: [place] a/lip 21 Medical (OMEGA Branch 3-6-9 ORAL) tamsulosin 2020-0 Yes Take by [facility] ers 0.4 mg 24 2-14 mouth ity of hr capsule 17:20: daily. [place] [address] [facility] om 2020-0 Yes Take by [facility] 3/E/linol/a 2-14 mouth. ity of la/oleic/gl 17:20: [place] a/lip 21 Medical (OMEGA Branch 3-6-9 ORAL) tamsulosin 2020-0 Yes Take by [facility] ers 0.4 mg 24 2-14 mouth ity of hr capsule 17:20: daily. [place] [address] [facility] om 2020-0 Yes Take by [facility] 3/E/linol/a 2-14 mouth. ity of la/oleic/gl 17:20: [place] a/lip 21 Medical (OMEGA Branch 3-6-9 ORAL) tamsulosin 2020-0 Yes Take by [facility] ers 0.4 mg 24 2-14 mouth ity of hr capsule 17:20: daily. [place] [address] [facility] om 2020-0 Yes Take by [facility] 3/E/linol/a 2-14 mouth. ity of la/oleic/gl 17:20: [place] a/lip 21 Medical (OMEGA Branch 3-6-9 ORAL) tamsulosin 2020-0 Yes Take by [facility] ers 0.4 mg 24 2-14 mouth ity of hr capsule 17:20: daily. [place] [address] [facility] om 2020-0 Yes Take by [facility] 3/E/linol/a 2-14 mouth. ity of la/oleic/gl 17:20: [place] a/lip 21 Medical (OMEGA Branch 3-6-9 ORAL) tamsulosin 2020-0 Yes Take by [facility] ers 0.4 mg 24 2-14 mouth ity of hr capsule 17:20: daily. [place] [address] [facility] om 2020-0 Yes Take by [facility] 3/E/linol/a 2-14 mouth. ity of la/oleic/gl 17:20: [place] a/lip 21 Medical (OMEGA Branch 3-6-9 ORAL) tamsulosin 2020-0 Yes Take by [facility] ers 0.4 mg 24 2-14 mouth ity of hr capsule 17:20: daily. [place] [address] [facility] om 2020-0 Yes Take by [facility] 3/E/linol/a 2-14 mouth. ity of la/oleic/gl 17:20: [place] a/lip 21 Medical (OMEGA Branch 3-6-9 ORAL) tamsulosin 2020-0 Yes Take by [facility] ers 0.4 mg 24 2-14 mouth ity of hr capsule 17:20: daily. [place] [address] [facility] Branch tamsulosin 2020-0 Yes Take by [facility] ers 0.4 mg 24 2-14 mouth ity of hr capsule 17:20: daily. [place] [address] [facility] Branch om 2020-0 Yes Take by [facility] 3/E/linol/a 2-14 mouth. ity of la/oleic/gl 17:20: [place] a/lip 21 Medical (OMEGA Branch 3-6-9 ORAL) om 2020-0 Yes Take by [facility] 3/E/linol/a 2-14 mouth. ity of la/oleic/gl 17:20: [place] a/lip 21 Medical (OMEGA Branch 3-6-9 ORAL) tamsulosin 2020-0 Yes Take by [facility] ers 0.4 mg 24 2-14 mouth ity of hr capsule 17:20: daily. [place] [address] [facility] om 2020-0 Yes Take by [facility] 3/E/linol/a 2-14 mouth. ity of la/oleic/gl 17:20: [place] a/lip 21 Medical (OMEGA Branch 3-6-9 ORAL) tamsulosin 2020-0 Yes Take by [facility] ers 0.4 mg 24 2-14 mouth ity of hr capsule 17:20: daily. [place] [address] [facility] om 2020-0 Yes Take by [facility] 3/E/linol/a 2-14 mouth. ity of la/oleic/gl 17:20: [place] a/lip 21 Medical (OMEGA Branch 3-6-9 ORAL) tamsulosin 2020-0 Yes Take by [facility] ers 0.4 mg 24 2-14 mouth ity of hr capsule 17:20: daily. [place] [address] [facility] om 2020-0 Yes Take by [facility] 3/E/linol/a 2-14 mouth. ity of la/oleic/gl 17:20: [place] a/lip 21 Medical (OMEGA Branch 3-6-9 ORAL) tamsulosin 2020-0 Yes Take by [facility] ers 0.4 mg 24 2-14 mouth ity of hr capsule 17:20: daily. [place] [address] [facility] om 2020-0 Yes Take by [facility] 3/E/linol/a 2-14 mouth. ity of la/oleic/gl 17:20: [place] a/lip 21 Medical (OMEGA Branch 3-6-9 ORAL) tamsulosin 2020-0 Yes Take by [facility] ers 0.4 mg 24 2-14 mouth ity of hr capsule 17:20: daily. [place] [address] [facility] om 2020-0 Yes Take by [facility] 3/E/linol/a 2-14 mouth. ity of la/oleic/gl 17:20: [place] a/lip 21 Medical (OMEGA Branch 3-6-9 ORAL) tamsulosin 2020-0 Yes Take by [facility] ers 0.4 mg 24 2-14 mouth ity of hr capsule 17:20: daily. [place] [address] [facility] om 2020-0 Yes Take by [facility] 3/E/linol/a 2-14 mouth. ity of la/oleic/gl 17:20: [place] a/lip 21 Medical (OMEGA Branch 3-6-9 ORAL) tamsulosin 2020-0 Yes Take by [facility] ers 0.4 mg 24 2-14 mouth ity of hr capsule 17:20: daily. [place] [address] [facility] om 2020-0 Yes Take by [facility] 3/E/linol/a 2-14 mouth. ity of la/oleic/gl 17:20: [place] a/lip 21 Medical (OMEGA Branch 3-6-9 ORAL) tamsulosin 2020-0 Yes Take by [facility] ers 0.4 mg 24 2-14 mouth ity of hr capsule 17:20: daily. [place] [address] [facility] om 2020-0 Yes Take by [facility] 3/E/linol/a 2-14 mouth. ity of la/oleic/gl 17:20: [place] a/lip 21 Medical (OMEGA Branch 3-6-9 ORAL) tamsulosin 2019-0 Yes Take by [facility] ers 0.4 mg 24 2-14 mouth ity of hr capsule 17:20: daily. [place] [address] [facility] Branch om 2020-0 Yes Take by [facility] 3/E/linol/a 2-14 mouth. ity of la/oleic/gl 17:20: [place] a/lip 21 Medical (OMEGA Branch 3-6-9 ORAL) tamsulosin 2020-0 Yes Take by [facility] ers 0.4 mg 24 2-14 mouth ity of hr capsule 17:20: daily. [place] [address] [facility] om 2020-0 Yes Take by [facility] 3/E/linol/a 2-14 mouth. ity of la/oleic/gl 17:20: [place] a/lip 21 Medical (OMEGA Branch 3-6-9 ORAL) tamsulosin 2020-0 Yes Take by [facility] ers 0.4 mg 24 2-14 mouth ity of hr capsule 17:20: daily. [place] [address] [facility] om 2020-0 Yes Take by [facility] 3/E/linol/a 2-14 mouth. ity of la/oleic/gl 17:20: [place] a/lip 21 Medical (OMEGA Branch 3-6-9 ORAL) tamsulosin 2020-0 Yes Take by [facility] ers 0.4 mg 24 2-14 mouth ity of hr capsule 11:20: daily. [place] [address] [facility] om 2020-0 Yes Take by [facility] 3/E/linol/a 2-14 mouth. ity of la/oleic/gl 11:20: [place] a/lip 21 Medical (OMEGA Branch 3-6-9 ORAL) tamsulosin 2020-0 Yes Take by [facility] ers 0.4 mg 24 2-14 mouth ity of hr capsule 11:20: daily. [place] [address] [facility] om 2020-0 Yes Take by [facility] 3/E/linol/a 2-14 mouth. ity of la/oleic/gl 11:20: [place] a/lip 21 Medical (OMEGA Branch 3-6-9 ORAL) tamsulosin 2020-0 Yes Take by [facility] ers 0.4 mg 24 2-14 mouth ity of hr capsule 11:20: daily. [place] [address] [facility] Branch om 2020-0 Yes Take by [facility] 3/E/linol/a 2-14 mouth. ity of la/oleic/gl 11:20: [place] a/lip 21 Medical (OMEGA Branch 3-6-9 ORAL) tamsulosin 2020-0 Yes Take by [facility] ers 0.4 mg 24 2-14 mouth ity of hr capsule 11:20: daily. [place] [address] [facility] Branch om 2020-0 Yes Take by [facility] 3/E/linol/a 2-14 mouth. ity of la/oleic/gl 11:20: [place] a/lip 21 Medical (OMEGA Branch 3-6-9 ORAL) diclofenac 2018-03 2020- No [id number] 75mg Take 1 [facility] 75 mg EC 05-03 9109 tablet by ity o f tablet 00:00: 05:59 mouth 2 [place] 00 :00 (two) Medical times Branch daily with meals for 60 days. diclofenac 2018-03 2020- No [id number] 75mg Take 1 [facility] 75 mg EC 05-03 9109 tablet by ity o f tablet 00:00: 05:59 mouth 2 [place] 00 :00 (two) Medical times Branch daily with meals for 60 days. diclofenac 2018-03 2020- No [id number] 75mg Take 1 [facility] 75 mg EC 205-02 9109 tablet by ity o f tablet 00:00: 05:59 mouth 2 [place] 00 :00 (two) Medical times Branch daily with meals for 60 days. diclofenac 2018-03- No [id number] 75mg Take 1 [facility] 75 mg EC 205-02 9109 tablet by ity o f tablet 00:00: 05:59 mouth 2 [place] 00 :00 (two) Medical times Branch daily with meals for 60 days. diclofenac Yes [id number] 75mg Take 1 [facility] 75 mg EC 8- 9109 tablet by ity of tablet 00:00: mouth 2 [place] 00 (two) Medical times Branch daily with meals. diclofenac Yes [id number] 75mg Take 1 [facility] 75 mg EC 8- 9109 tablet by ity of tablet 00:00: mouth 2 [place] 00 (two) Medical times Branch daily with meals. diclofenac Yes [id number] 75mg Take 1 [facility] 75 mg EC 8- 9109 tablet by ity of tablet 00:00: mouth 2 [place] 00 (two) Medical times Branch daily with meals. diclofenac 2018- No [id number] 75mg Take 1 [facility] 75 mg EC [...] Medical DAILY FOR Branch 5 DAYS amoxicillin 2018-0 2020- No TAKE 1 [facility] vers -clavulanat 7-19 02-28 TABLET BY it y of e 875-125 00:00: 00:00 MOUTH [place] mg per 00 :00 EVERY 12 Medical tablet HOURS FOR Branch 7 DAYS amoxicillin 2018-0 2020- No TAKE 1 [facility] vers -clavulanat [...] as needed. No known No [facility] medications [facility] No known No [facility] medications [facility] atorvastati atorvastati No atorvastat [place] 20 [...] oral route. oral route. hydrocodone hydrocodone No hydrocodon [facility] 5 5 e 5 Family mg-acetamin mg-acetamin mg-acetami Practic ophen 325 ophen 325 nophen 325 e mg tablet mg tablet mg tablet TAKE 1 TAKE 1 TAKE 1 TABLET BY TABLET BY TABLET BY MOUTH THREE MOUTH THREE MOUTH TIMES DAILY TIMES DAILY THREE TIMES DAILY metoprolol metoprolol No metoprolol [facility] tartrate 25 tartrate 25 tartrate Family mg tablet mg tablet 25 mg Prac tic TAKE 1 TAKE 1 tablet e TABLET BY TABLET BY TAKE 1 MOUTH TWICE MOUTH TWICE TABLET BY DAILY DAILY MOUTH TWICE DAILY Myrbetriq Myrbetriq No Myrbetriq [facility] 25 mg 25 mg 25 mg [...] by oral route. Pneumovax-2 Pneumovax-2 No Pneumovax- [facility] 3 25 3 25 23 25 Family mcg/0.5 mL mcg/0.5 mL mcg/0.5 mL Practic injection injection injection e syringe syringe syringe PHARMACIST PHARMACIST PHARMACIST ADMINISTERE ADMINISTERE ADMINISTER D D ED IMMUNIZATIO IMMUNIZATIO IMMUNIZATI N N ON ADMINISTERE ADMINISTERE ADMINISTER D AT TIME D AT TIME ED AT TIME OF OF OF DISPENSING DISPENSING DISPENSING prednisone prednisone No prednisone [facility] 5 mg tablet 5 mg tablet [...] Source Name Name pneumococcal pneumococcal 2019-03-31 Completed [facility] Fa marie polysaccharide PPV23 polysaccharide PPV23 00:00:00 Practice Tdap Tdap 2019-03-07 Completed [facility] 00[facility]:00 [facility] Td Td 2018-02-03 Completed [facility] 10:21:00 [facility] Td Td 2018-02-03 Completed [facility] 10:21:00 [facility] Vital Signs Vital Name Observation Time Observation Value Comments Source height 2022-03-24 10:15:00 67.75 [in_i] [facility] weight 2022-03-24 10:15:00 174 [lb_av] [facility] temperature 2022-03-24 10:15:00 97.3 [degF] [facility] bmi 2022-03-24 10:15:00 26.65 kg/m2 [facility] oximetry 2022-03-24 10:15:00 98 % [facility] respiratory rate 2022-03-24 10:15:00 18 /min Comm on [facility] blood pressure 2022-03-24 10:15:00 132 mm[Hg] [facility] - systolic [facility] blood pressure 2022-03-24 10:15:00 68 mm[Hg] [facility] - diastolic [facility] height 2021-12-17 09:00:00 67.75 [in_i] [facility] weight 2021-12-17 09:00:00 167 [lb_av] [facility] temperature 2021-12-17 09:00:00 97.6 [degF] [facility] bmi 2021-12-17 09:00:00 25.58 kg/m2 [facility] oximetry 2021-12-17 09:00:00 96 % [facility] - [facility] respiratory rate 2021-12-17 09:00:00 16 /min [facility] blood pressure 2021-12-17 09:00:00 185 mm[Hg] [facility] - systolic [facility] blood pressure 2021-12-17 09:00:00 75 mm[Hg] [facility] - diastolic [facility] Systolic blood 2021-09-02 02:00:00 165 mm[Hg] Univer sity of [facility] Diastolic blood 2021-09-02 02:00:00 74 mm[Hg] Unive rsity [facility] Heart rate 2021-09-02 02:00:00 61 /min [facility] Respiratory rate 2021-09-02 02:00:00 20 /min [facility] Oxygen saturation in 2021-09-02 02:00:00 98 /min [facility] Arterial blood by [facility] Pulse oximetry Branch Body temperature 2021-09-01 22:19:00 36.28 Natalie [facility] Body weight 2021-09-01 22:19:00 81.647 kg [facility] BMI 2021-09-01 22:19:00 25.83 kg/m2 [facility] HEIGHT 2021-04-06 12:08:00 180.3 cm WEIGHT 2021-04-06 12:08:00 79.379 kg HEIGHT 2021-04-06 12:08:00 180.3 cm WEIGHT 2021-04-06 12:08:00 79.379 kg BP Diastolic 2020-03-10 00:00:00 68 mm[Hg] [facility] Height 2020-03-10 00:00:00 68 [in_i] [facility] BMI (Body Mass 2020-03-10 00:00:00 27.4 kg/m2 [facility] BP Systolic 2020-03-10 00:00:00 126 mm[Hg] [facility] Body Weight 2020-03-10 00:00:00 180 [lb_av] [facility] WEIGHT 2020-01-03 04:20:00 81.194 kg [...] [facility] Diastolic blood 2019-11-07 19:40:00 74 mm[Hg] Unive rsity of pressure [facility] Heart rate 2019-11-07 19:40:00 76 /min Universi ty [facility] Body temperature 2019-11-07 19:40:00 36.44 [facility] 2019-11-07 19:40:00 18 /min Univ ersity of [facility] Body weight 2019-11-07 19:40:00 81.647 kg Universi ty [facility] BMI 2019-11-07 19:40:00 25.83 kg/m2 Universi ty [facility] Systolic blood 2019-11-07 19:40:00 150 mm[Hg] Univer sity of pressure [facility] Diastolic blood 2019-11-07 19:40:00 74 mm[Hg] Unive rsity of pressure [facility] Heart rate 2019-11-07 19:40:00 76 /min Universi ty [facility] Body temperature 2019-11-07 19:40:00 36.44 Natalie Univ ersity of [facility] Respiratory rate 2019-11-07 19:40:00 18 /min Univ [facility] Body weight 2019-11-07 19:40:00 81.647 kg [facility] BMI 2019-11-07 19:40:00 25.83 kg/m2 [facility] Systolic blood 2019-09-24 20:24:00 155 mm[Hg] Univer sity of pressure [facility] Diastolic blood 2019-09-24 20:24:00 76 mm[Hg] Unive rsity of pressure [facility] Heart rate 2019-09-24 20:24:00 63 /min [facility] Body temperature 2019-09-24 20:24:00 36.11 Natalie [facility] Respiratory rate 2019-09-24 20:24:00 18 /min [facility] Body weight 2019-09-24 20:24:00 82.373 kg [facility] BMI 2019-09-24 20:24:00 26.06 kg/m2 [facility] Systolic blood 2019-09-24 20:24:00 155 mm[Hg] Univer sity of pressure [facility] Diastolic blood 2019-09-24 20:24:00 76 mm[Hg] Unive rsity of pressure [facility] Heart rate 2019-09-24 20:24:00 63 /min [facility] Body temperature 2019-09-24 20:24:00 36.11 Natalie [facility] Respiratory rate 2019-09-24 20:24:00 18 /min [facility] Body weight 2019-09-24 20:24:00 82.373 kg [facility] BMI 2019-09-24 20:24:00 26.06 kg/m2 [facility] Systolic blood 2019-09-21 20:41:00 149 mm[Hg] Univer [facility]ity of [facility] Diastolic blood 2019-09-21 20:41:00 79 mm[Hg] Unive rsity of pressure [facility] Heart rate 2019-09-21 20:41:00 64 /min [facility] Body temperature 2019-09-21 20:41:00 35.78 Natalie [facility] Respiratory rate 2019-09-21 20:41:00 18 /min [facility] Body weight 2019-09-21 20:41:00 81.829 kg [facility] BMI 2019-09-21 20:41:00 25.88 kg/m2 [facility] Systolic blood 2019-09-02 11:05:00 188 mm[Hg] Univer sity of [facility] Diastolic blood 2019-09-02 11:05:00 85 mm[Hg] Unive rsity of pressure [facility] Heart rate 2019-09-02 11:05:00 84 /min [facility] Body temperature 2019-09-02 11:05:00 36.89 Natalie Univ ersity of [facility] Respiratory rate 2019-09-02 11:05:00 16 /min Univ ersity of [facility] Body height 2019-09-02 11:05:00 177.8 cm [facility] Body weight 2019-09-02 11:05:00 79.379 kg [facility] BMI 2019-09-02 11:05:00 25.11 kg/m2 [facility] Oxygen saturation in 2019-09-02 11:05:00 99 /min University of Arterial blood by [facility] Pulse oximetry Branch Body temperature 2019-08-10 20:51:00 36.61 Natalie Univ ersity of [facility] Respiratory rate 2019-08-10 20:51:00 22 /min [facility] [place] [facility] [place] Body weight 2019-08-10 20:51:00 80.797 kg [facility] BMI 2019-08-10 20:51:00 27.08 kg/m2 Universi ty of [facility] Oxygen saturation in 2019-08-10 20:51:00 96 /min University of Arterial blood by [facility] ezekiel Pulse oximetry Branch Systolic blood 2019-07-09 15:45:00 131 mm[Hg] Univer sity of pressure [facility] Diastolic blood 2019-07-09 15:45:00 69 mm[Hg] Unive rsity of pressure [facility] Heart rate 2019-07-09 15:45:00 49 /min [facility] [place] Body temperature 2019-07-09 15:45:00 37 Natalie [address] [facility] Respiratory rate 2019-07-09 15:45:00 20 /min Univ [facility] Body height 2019-07-09 15:45:00 172.7 cm [facility] Body weight 2019-07-09 15:45:00 82.101 kg [facility] BMI 2019-07-09 15:45:00 27.52 kg/m2 [facility] Oxygen saturation in 2019-07-09 15:45:00 98 /min University of Arterial blood by [place] [employer] ezekiel Pulse oximetry Branch Systolic blood 2019-05-24 18:10:00 132 mm[Hg] Univer sity of [facility] Diastolic blood 2019-05-24 18:10:00 61 mm[Hg] Unive rsity of pressure [facility] Heart rate 2019-05-24 18:10:00 50 /min [facility] Body temperature 2019-05-24 18:10:00 36.56 Natalie [facility] Respiratory rate 2019-05-24 18:10:00 18 /min [facility] Body weight 2019-05-24 18:10:00 82.101 kg [facility] BMI 2019-05-24 18:10:00 27.52 kg/m2 [facility] Body temperature 2019-05-04 17:26:00 36.83 Natalie [facility] Respiratory rate 2019-05-04 17:26:00 20 /min [facility] Body height 2019-05-04 17:26:00 172.7 cm [facility] Body weight 2019-05-04 17:26:00 79.379 kg [facility] BMI 2019-05-04 17:26:00 26.61 kg/m2 [facility] Oxygen saturation in 2019-05-04 17:26:00 98 /min University of Arterial blood by [place] [employer] ezekiel Pulse oximetry Branch Systolic blood 2019-05-04 17:26:00 139 mm[Hg] Univer sity of pressure [facility] Diastolic blood 2019-05-04 17:26:00 67 mm[Hg] Unive rsity of pressure [facility] Heart rate 2019-05-04 17:26:00 80 /min [facility] Systolic blood 2019-04-20 17:14:00 135 mm[Hg] Univer sity of pressure [facility] Diastolic blood 2019-04-20 17:14:00 80 mm[Hg] Unive rsity of pressure [facility] Heart rate 2019-04-20 17:14:00 80 /min Universi ty of [facility] Body temperature 2019-04-20 17:14:00 36.67 Natalie Univ ersity of [facility] Respiratory rate 2019-04-20 17:11:00 20 /min Univ ersity of [facility] Body height 2019-04-20 17:11:00 172.7 cm Universi ty of [facility] Body weight 2019-04-20 17:11:00 77.565 kg Universi ty of [facility] BMI 2019-04-20 17:11:00 26.00 kg/m2 Universi ty of [facility] Oxygen saturation in 2019-04-20 17:11:00 98 /min University Arterial blood by [facility] Pulse oximetry Branch Systolic blood 2018-10-06 13:34:00 127 mm[Hg] Univer sity of [facility] Diastolic blood 2018-10-06 13:34:00 72 mm[Hg] Unive rsity of pressure [facility] Body height 2018-10-06 13:34:00 175.3 cm Universi ty of [facility] Body weight 2018-10-06 13:34:00 81.647 kg Universi ty of [facility] BMI 2018-10-06 13:34:00 26.58 kg/m2 Universi ty [facility] Heart rate 2021-04-08 11:20:00 64 /min [facility] Respiratory rate 2021-04-08 11:20:00 18 /min [facility] Oxygen saturation in 2021-04-08 11:20:00 97 /min [facility] Arterial blood by Medical nter Pulse oximetry Systolic blood 2021-04-08 07:00:00 142 mm[Hg] [facility] Diastolic blood 2021-04-08 07:00:00 67 mm[Hg] [facility] S t [facility] Body temperature 2021-04-08 07:00:00 36.56 Natalie [facility] Body height 2021-04-06 12:08:00 180.3 cm [facility] Body weight 2021-04-06 12:08:00 79.379 kg [facility] BMI 2021-04-06 12:08:00 24.41 kg/m2 [facility] Procedures Procedure Date / Time Performing Clinician Source Performed EKG-12 LEAD 2021-09-02 02:42:27 Carley Green [facility] MAGNESIUM 2021-09-01 23:35:00 Carley Green [facility] TROPONIN I 2021-09-01 23:35:00 Carley Green [facility] COMP. METABOLIC PANEL 2021-09-01 23:35:00 Carley Green [facility] ([id number]) [facility] CBC WITH DIFF 2021-09-01 23:35:00 Carley Green [facility] PROTHROMBIN TIME / INR 2021-09-01 23:35:00 Carley Green [facility] ACTIVATED PARTIAL 2021-09-01 23:35:00 Carley Green [facility] THRMPLAS [facility] URINALYSIS 2021-09-01 23:35:00 Carley Green [facility] N-TERMINAL PRO-BNP 2021-09-01 23:35:00 Carley Green [facility] XR CHEST 1 VW 2021-09-01 23:27:00 Carley Green [facility] NOTICE OF PRIVACY 2021-09-01 22:21:51 Doctor Unassigned, No [facility] PRACTICES Name Medical Branch CONSENT/REFUSAL FOR 2021-09-01 22:14:42 Doctor Unassigned, No [facility] Name [facility] APTT 2021-04-08 09:10:00 Oscar Mcintyre [facility] CBC W/PLT COUNT & AUTO 2021-04-08 05:18:00 Yusra Sethi [facility] DIFFERENTIAL Center COMPREHENSIVE METABOLIC 2021-04-08 05:18:00 Yusra Sethi [facility] PANEL Center PHOSPHORUS 2021-04-08 05:18:00 Kwadwo [facility] MAGNESIUM 2021-04-08 05:18:00 [facility] PROT[facility]BIN TIME/INR 2021-04-08 05:18:00 [facility] 2021-04-08 [facility]:18[facility] W/[facility]T COUNT & AUTO 2021-04-08 05:18:00 [facility] APTT 2021-04-08 01:09:00 [facility] POCT-GLUCOSE METER 2021-04-07 23:21:00 [facility] 2021-04-07 18:08:00 [facility] POCT-GLUCOSE METER 2021-04-07 11:30:00 [facility] 2021-04-07 10:09[facility]SE METER 2021-04-07 06:01:[address] [facility] CBC W/PLT COUNT & AUTO 2021-04-07 05:28:00 [facility] COMPREHENSIVE METABOLIC 2021-04-07 05:28:[facility] 2021-04-07 05:28:00 [facility] 2021-04-07 05:28:00 [facility] PROTHROMBIN TIME/INR 2021-04-07 05:28:00 [facility] CBC W/PLT COUNT & AUTO 2021-04-07 05:28:00 [facility] POCT-GLUCOSE METER 2021-04-06 23:57:00 [facility] AP[facility] 2021-04-06 22:30:00 Miguelina [facility] 2D ECHO W/ DOPPLER 2021-04-06 12:01:00 Jacquelyn [facility] (CW/PW/COLOR) [facility] APTT 2021-04-06 09:22:00 Miguelina [facility] CBC W/PLT COUNT & AUTO 2021-04-06 04:38:00 [facility] COMPREHENSIVE METABOLIC 2021-04-06 04:38:00 [facility] PHOSPHORUS 2021-04-06 04:38:00 [facility] MAGNESIUM 2021-04-06 04:38:00 [facility] PROTHROMBIN TIME/INR 2021-04-06 04:38:00 [facility] CBC W/PLT COUNT & AUTO 2021-04-06 04:38:00 [facility] APTT 2021-04-06 00:56:00 Miguelina [facility] CT CHEST WITH IV 2021-04-06 00:26:00 Jacquelyn Lash[facility] CONTRAST [facility] POCT-GLUCOSE METER 2021-04-05 22:28:00 [facility] 2021-04-05 17:54:00 Miguelina [facility] APTT 2021-04-05 12:01:00 Miguelina [facility] POCT-GLUCOSE METER 2021-04-05 06:43:00 [facility] CBC W/PLT COUNT & AUTO 2021-04-05 04:17:00 [facility] COMPREHENSIVE METABOLIC 2021-04-05 04:17:00 [facility]US 2021-04-05 04:17:00 [facility] MAGNESIUM 2021-04-05 04:17:00 Kwadwo [facility] PROTHROMBIN TIME/INR 2021-04-05 04:17:00 [facility] APTT 2021-04-05 04:17:00 Miguelina [facility] CBC W/PLT COUNT & AUTO 2021-04-05 04:17:00 [facility] POCT-GLUCOSE METER 2021-04-05 00:38:[address] [facility] ECG 12-LEAD 2021-04-04 23:12:36 Unknown, 7 [facility] ECG 12-LEAD 2021-04-04 23:12:36 Unknown, 7 [facility] ECG 12-LEAD 2021-04-04 23:12:17 Unknown, 7 [facility] ECG 12-LEAD 2021-04-04 23:12:17 Unknown, 7 [facility] ECG 12-LEAD 2021-04-04 23:12:00 Unknown, 7 [facility] ECG 12-LEAD 2021-04-04 23:12:00 Unknown, 7 [facility] CBC W/PLT COUNT & AUTO 2021-04-04 06:03:00 [facility] COMPREHENSIVE METABOLIC 2021-04-04 06:03:00 Kwadwo [facility] PHOSPHORUS 2021-04-04 06:03:00 Kwadwo [facility] MAGNESIUM 2021-04-04 06:03:00 [facility] APTT 2021-04-04 06:03:00 Miguelina [facility] PROTHROMBIN TIME/INR 2021-04-04 06:03:00 [facility] CBC W/PLT COUNT & AUTO 2021-04-04 06:03:00 [facility] HEMOGLOBIN AND 2021-04-03 22:59:00 Miguelina, [facility] HEMATOCRIT Center APTT 2021-04-03 22:59:00 [facility] 12-[facility]AD 2021-04-03 22:17:25 Anya Favian [facility] ECG 12-LEAD 2021-04-03 22:17:25 Unknown, Hl7 Doctor [facility] PLATELET COUNT 2021-04-03 11:50:00 Miguelina [facility] APTT 2021-04-03 11:50:00 Miguelina [facility] CBC W/PLT COUNT & AUTO 2021-04-03 04:26:[address] [facility] COMPREHENSIVE METABOLIC 2021-04-03 04:26:00 Kwadwo [facility] PANEL Center PHOSPHORUS 2021-04-03 04:26:00 Kwadwo [facility] PROTHROMBIN TIME/INR 2021-04-03 04:26:00 Kwadwo [facility] MAGNESIUM 2021-04-03 04:26:00 Kwadwo [facility] CBC W/PLT COUNT & AUTO 2021-04-03 04:26:[address] [facility] URINALYSIS WITH 2021-04-02 16:55:00 Kwadwo [facility] MICROSCOPIC IF INDICATED Center URINALYSIS MICROSCOPIC 2021-04-02 16:55:00 Kwadwo [facility] BASIC METABOLIC PANEL 2021-04-02 08:46:00 Ruddy [facility] HEPATIC FUNCTION PANEL 2021-04-02 08:46:00 [facility]OT[facility]/INR 2021-04-02 08:46:00 [facility] CBC W/PLT COUNT & AUTO 2021-04-02 08:46:00 Ruddy [facility] DIFFERENTIAL [facility] CBC W/PLT COUNT & AUTO 2021-04-02 08:46:00 [facility] DI[facility]ENTIAL [facility] EKG-SCANNED 2021-04-02 00:00:00 Provider, Yuridia Alvarado [facility] AUTHORIZATION FOR 2020-02-18 06:01:00 Doctor Unassigned, No [facility] RELEASE OF [facility] COMP. METABOLIC PANEL 2019-09-02 11:21:00 Breeding [facility] ([id number]) [facility] CBC WITH DIFFERENTIAL 2019-09-02 11:21:00 Singer [facility] URINALYSIS 2019-09-02 11:21:00 Breeding [facility] o f [facility] NOTICE OF PRIVACY 2019-09-02 10:54:46 Doctor Unassigned, No [facility] PRACTICES [facility] Medical [place] CONSENT/REFUSAL FOR 2019-09-02 10:54:27 Doctor Unassigned, [facility] TREATMENT [facility] PHYSICIAN ORDERS 2019-05-24 05:01:00 Doctor Unassigned, No [facility] POCT URINALYSIS AUTO 2019-05-04 17:32:00 Robbie Car [facility] DISCLOSURE AND CONSENT, 2019-05-04 06:01:00 Doctor Unassigned, N o [facility] MEDICAL AND SURGICAL [facility] Medical [facility] PROCEDURES POCT URINALYSIS AUTO 2019-04-20 17:08:00 Robbie Car [facility] ASSIGNMENT OF BENEFITS 2019-04-20 16:53:27 Doctor Unassigned, No [facility] REFERRAL- 2018-10-04 05:01:00 Doctor Unassigned, No [facility] REQUEST/RESPONSE [facility] REFUSAL OF NON-MEDICAL 2018-04-20 06:01:00 Doctor Unassigned, No [facility] Plan of Care Planned Activity Planned Date Details Comments Source Future Scheduled Test 2029-03-07 DTAP/TDAP/TD VACCINES [facility] 00:00:00 (2 - Td or Tdap) Medical [...] VACCINE (Season Ended)] Future Scheduled Test 2022-06-09 SHINGLES VACCINES (1 [facility] 02:57:05 of 2) [code = SHINGLES VACCINES (1 of 2)] Future Scheduled Test 2022-06-09 65+ PNEUMOCOCCAL [facility] 02:57:05 VACCINE (1 - PCV) [code = 65+ PNEUMOCOCCAL VACCINE (1 - PCV)] Future Scheduled Test 2022-06-09 INFLUENZA VACCINE [facility] 02:57:05 [code = INFLUENZA VACCINE] Future Scheduled Test 2022-06-09 COVID-19 VACCINE (#1) [facility] 02:57:05 [code = COVID-19 VACCINE (#1)] Future Scheduled Test 2022-06-09 SHINGLES VACCINES (1 [facility] 02:57:05 of 2) [code = SHINGLES VACCINES (1 of 2)] Future Scheduled Test 2022-06-09 65+ PNEUMOCOCCAL [facility] 02:57:05 VACCINE (1 - PCV) [code = 65+ PNEUMOCOCCAL VACCINE (1 - PCV)] Future Scheduled Test 2022-06-09 INFLUENZA VACCINE [facility] 02:57:05 [code = INFLUENZA VACCINE] Future Scheduled Test 2022-06-09 COVID-19 VACCINE (#1) [facility] 02:57:05 [code = COVID-19 VACCINE (#1)] Future Scheduled Test 2022-03-07 DEPRESSION SCREENING CHI [...] Future Scheduled Test 2022-02-17 COVID-19 VACCINE (#1) [facility] 02:52:34 [code = COVID-19 VACCINE (#1)] Future Scheduled Test 2022-02-17 SHINGLES VACCINES (1 [facility] 02:52:34 of 2) [code = SHINGLES VACCINES (1 of 2)] Future Scheduled Test 2022-02-17 65+ PNEUMOCOCCAL [facility] 02:52:34 VACCINE (1 - PCV) [code = 65+ PNEUMOCOCCAL VACCINE (1 - PCV)] Future Scheduled Test 2022-02-17 INFLUENZA VACCINE [facility] 02:52:34 [code = INFLUENZA VACCINE] Future Scheduled [...] COVID-[address] VACCINE (#1)] Instructions [facility] Family Practice Encounters Start End Encounter Admission Attending Care Care Encounter Source Date/Time Date/Time Type Type Clinicians Facility Department ID 2022-06-29 Outpatient [place], [facility] [id number] Common 11:38:01 Shawn [id number] Spirit - [facility] 2022-05-12 Outpatient [facility] [id number] [place] 21:23:[address] [place] [address] 2021-12-17 Outpatient Perry, [facility] [id number] Common 08:32:02 Shawn [id number] Spirit - [facility] 2021-01-02 Emergency [facility] [id number] Univers 14:31:41 ity of [facility] 2021-01-02 Emergency [facility] [id number] Univers 03:17:11 ity of [facility] 2020-12-10 Inpatient ER KWJOSE, SLE Surgery [id number] SLEH 12:16:46 ZOYA 2020-12-10 Inpatient ER TRACY, STC Gastro [id number] [facility] 12:16:10 [facility] 2022-03-24 2022-03-24 OFFICE STLMLC STLC [id number] Co mmon 00:00:00 00:00:00 VISIT EST Spir it PT LEVEL 3 - [facility] 2021-12-17 2021-12-17 OFFICE STLMLC STLC [id number] Co mmon 00:00:00 00:00:00 VISIT Spirit ESTAB PT - CHI LEVEL 2 [facility] 2021-09-18 2021-09-18 Outpatient DMG DM [id number]- [id number] [facility] 03:02:00 03:02:00 73752 Medica l Group 2021-09-18 2021-09-18 Outpatient DMG DM [id number]- 202 [facility] 00:00:00 00:00:00 [id number] Medica l Group 2021-09-01 2021-09-02 Emergency X ADE, K [facility] ERT [id number] Univers 17:21:00 01:51:00 ity of [facility] 2021-09-01 2021-09-02 Emergency Ade K [facility] 1.2.840.114 [id number] Univers 17:21:00 01:51:00 Analy JONES 350.1.13.10 i ty of [facility] 4.2.7.2.686 [facility] [phone] [place] [address] [address] 2021-09-01 2021-09-01 Orders Doctor NIRAV 1.2.840.114 [id number] Univers 00:00:00 00:00:00 Only Unassigned, KENNETH 350.13.10 ity of [place] [facility] 4.2.7.2.686 Bran as [phone] [address] 2021-06-03 2021-06-03 Outpatient DMG DMG [id number]- [facility] 04:03:00 04:03:00 Medica l Group 2021-05-22 2021-05-22 Outpatient DMG DMG [id number]- [facility] 12:01:00 12:01:00 Medica l Group 2021-05-13 2021-05-13 Outpatient DMG DMG [id number]- [facility] 12:00:00 12:00:00 Medica l Group 2021-04-02 2021-04-08 Hospital ER Fox Queenie Lyleoma [facility] [id number] 05:31:00 12:45:00 Encounter [facility] 2021-04-02 2021-04-08 Inpatient ER [facility] Urology [id number] [facility] 05:31:00 12:45:00 [facility] 2021-04-06 2021-04-06 Outpatient [facility] [id number] [facility] 00:00:00 23:59:00 Shawna holm of Medicin e 2021-04-03 2021-04-03 Orders [facility] [id number] 00:00:00 00:00:00 Only [facility] 2021-01-07 2021-01-07 Telephone [facility] 1..840.114 [id number] Univers 00:00:00 00:00:00 ContentDJ 350.1.13.10 it y of [facility] 4.2.7.2.686 Bran as ARISTEO?BLEA [phone] [address] MEDICAL OFFICE BUILDING 2021-01-05 2021-01-05 Telephone [facility] 1.2.840.114 [id number] Univers 00:00:00 00:00:00 ContentDJ 350.1.13.10 it y of [place] 4.2.7.2.686 Bran as ARISTEO?BLEA [phone] Sd dical MARTHA [address] MEDICAL OFFICE [facility] 2020-10-14 2020-10-14 [facility]phone [facility] 1.2.840.114 [id number] Univers 00:00:00 00:00:00 [facility] 350.1.13.10 it y of Surgical 4.2.7.2.686 Bran as Specialti [phone] Sd dical es 198 [facility] 2020-10-09 2020-10-09 Telephone [facility] 1.2.840.114 [id number] Univers 00:00:00 00:00:00 [facility] 350.1.13.10 it y of Surgical 4.2.7.2.686 Bran as Specialti [phone] Sd dical es 198 [facility] 2020-09-11 2020-09-11 [facility] 1.2.840.114 [id number] Univers 00:00:00 00:00:00 Marquis C[facility] 350.1.13.10 it y of Surgical 4.2.7.2.686 Bran as Specialti [phone] Sd dical es 198 [facility] 2020-08-14 2020-08-14 [facility] 1.2.840.114 [id number] Univers 00:00:00 00:00:00 [facility] 350.1.13.10 it y of Surgical 4.2.7.2.686 Bran as Specialti [phone] Sd dical es 198 [facility] 2020-07-07 2020-07-07 Telephone [facility] 1.2.840.114 [id number] 00:00:00 00:00:00 [facility] 350.1.13.10 Surgical 4.2.7.2.686 Specialti [phone] es Zena Burgess 2020-07-07 2020-07-07 Telephone [facility] 1.2.840.114 [id number] Univers 00:00:00 00:00:00 [facility] 350.1.13.10 it y of Surgical 4.2.7.2.686 Bran as Specialti [id number] Sd dical es 198 [facility] 2020-06-12 2020-06-12 Outpatient Ajibade_O_A VFP VFP 796 [id number] [facility] 10:56:00 10:56:00 H 65817 Family Practic e 2020-05-26 2020-05-26 Telephone Juanita GAPAMELLA 1.2.840.114 [id number] 00:00:00 00:00:00 [facility] 350.1.13.10 Surgical 4.2.7.2.686 Specialti [id number] es 198 [place] 2020-05-26 2020-05-26 Telephone [facility] 1.2.840.114 [id number] [facility] 00:00:00 00:00:00 [facility] 350.1.13.10 it y of Surgical 4.2.7.2.686 Bran as Specialti [id number] Sd dical es 198 Artemio Burgess 2020-03-20 2020-03-20 Outpatient Ajibade_O_A VFP VFP 796 [id number] [facility] 05:22:00 05:22:00 H 09431 Family Practic e 2020-03-20 2020-03-20 Outpatient Ajibade_O_A VFP VFP 796 294-202 [facility] 05:22:00 05:22:00 H 57624 Family Practic e 2020-03-20 2020-03-20 Outpatient Ajibade_O_A VFP VFP 796 294-202 [facility] 05:22:00 05:22:00 H 40143 Family Practic e 2020-03-20 2020-03-20 Telephone Kory GAPAMELLA 1.2.470.767 [id number] 00:00:00 00:00:00 Marquis S [facility] 350.1.13.10 Surgical 4.2.7.2.686 Specialti [phone] es 198 [place] 2020-03-20 2020-03-20 Telephone [facility] 1.2.023.556 [id number] Univers 00:00:00 00:00:00 Marquis S Health 350.1.13.10 it y of Surgical 4.2.7.2.686 Bran as Specialti [id number] Sd dical es 198 [facility] 2020-03-10 2020-03-10 Outpatient Ajibade_O_A VFP VF 796 [id number] Village 11:19:00 11:19:00 H 66976 Family Practic e 2020-03-10 2020-03-10 [facility] [place] - [id number] V illage 00:00:00 00:00:00 Leo Sanchez 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 2020-02-18 2020-02-18 Orders Doctor NIRAV 1.2.840.114 [id number] 00:00:00 00:00:00 Only Unassigned, KENNETH 350.1.13.10 [place] [facility] 4.2.7.2.686 [id number] 009 2020-02-18 2020-02-18 Orders Doctor NIRAV 1.2.840.114 [id number] [facility] 00:00:00 00:00:00 Only Unassigned, KENNETH 350.1.13.10 ity of [place] [facility] 4.2.7.2.686 Bran as [id number] [facility] [address] [place] 2020-01-28 2020-01-28 Telephone Kory [facility] 1.2.420.409 [id number] 4050 00:00:00 00:00:00 [facility] 350.1.13.10 Surgical 4.2.7.2.686 Specialti [id number] es 198 [place] 2020-01-28 2020-01-28 Telephone Kory [facility] 1.2.477.538 [id number] 4050 [facility] 00:00:00 00:00:00 [facility] 350.1.13.10 it y of Surgical 4.2.7.2.686 Bran as Specialti [id number] Sd dical es 198 [facility] 2019-12-28 2019-12-28 Emergency ER SLEH Emergency [id number] [facility] 20:07:00 20:07:00 2019-12-21 2019-12-21 Telephone SUJEY Car 1.2.840.114 [id number] 00:00:00 00:00:00 Robbie Burg[place] 350.1.13.10 [place] 4.2.7.2.686 Professio [phone] [address] 2019-12-21 2019-12-21 Telephone Joyce [facility] 1.2.840.114 [id number] Univers 00:00:00 00:00:00 Robbie Burg[place] 350.1.13.10 i ty of [place].2.[place] [phone] Sd dic[address] 2019-12-20 2019-12-20 [facility] [id number] Univers 09:30:00 09:30:00 ROBBIE ity [facility] 2019-12-10 2019-12-10 [facility] [id number] Univers 15:15:00 15:15:00 [facility] 2019-12-07 2019-12-07 [facility] [id number] Univers 13:00:00 13:00:00 [facility] 2019-12-07 2019-12-07 Nurse Nurse, [facility] 1.2.840.114 [id number] 10:38:50 11:10:03 Visit Surgery Gu [place] 350.1.13.10 [place] 4.2.7.2.686 Professio [phone] [address] 2019-12-07 2019-12-07 Nurse Nurse, [facility] 1.2. 840.114 [id number] [facility] 10:38:50 11:10:03 Visit Robbie Car 350.1.13.10 ity of [place] [id number] Sd dical nal [address] [place] [address] 2019-11-20 2019-11-20 Nurse Nurse, [facility] 1.2.840.114 [id number] 13:06:00 13:52:14 Visit Surgery Gu Burgess 350.1.13.10 [place] 4.2.7.2.686 Professio [phone] [address] 2019-11-20 2019-11-20 Nurse Nurse, [facility] 1.2. 840.114 [id number] Univers 13:06:00 13:52:14 Visit Robbie Carton 350.1.13.10 ity of [place].7.2.[place] [phone] [address] 2019-11-20 2019-11-20 Outpatient R THEODOREHermilo [facility] [id number] Univers 13:00:00 13:00:00 [facility] 2019-11-07 2019-11-07 Nurse Nurse, [facility] 1.2.840.114 [id number] 14:34:31 14:49:31 Visit Surgery Burg[place] 350.1.13.10 [place] 4.2.7.2.686 Professio [phone] [address] 2019-11-07 2019-11-07 Nurse Nurse, [facility] 1.2. 840.114 [id number] Univers 14:34:31 14:49:31 Visit Pojohn Robbie Jones 350.1.13.10 ity [facility] 4.2.7.2.[place] [phone] [address] 2019-11-07 2019-11-07 Outpatient R [facility] [id number] Univers 14:15:00 14:15:00 [facility] 2019-11-07 2019-11-07 Outpatient R [facility] [id number] Univers 11:00:00 11:00:00 [facility] 2019-11-01 2019-11-01 Outpatient Ajibade_O_A VFP VFP [address] [place] [address] 04:47:00 04:47:00 H 22874 Family Practic e 2019-09-24 2019-09-24 [facility] 1.2.840.114 [id number] 15:17:44 17:03:35 Visit Robbie [place] 350.1.13.10 [place] 4.2.7.2.686 Professio [phone] [address] 2019-09-24 2019-09-24 [facility] 1.2.840.114 [id number] Univers 15:17:44 17:03:35 Visit Robbie Jones 350.1.13.10 i ty of [place]2.[place].2.[place] [phone] [address] 2019-09-24 2019-09-24 Out[facility] [id number] Univers 16:00:00 16:00:00 ROBBIE ity [facility] 2019-09-21 2019-09-21 Office [facility] 1.2.840.114 [id number] Univers 15:33:57 16:14:10 Visit Robbie Jones 350.1.13.10 i ty of [place] 4.2.7.2.[place] [phone] [address] 2019-09-21 2019-09-21 [facility] [id number] Univers 16:00:00 16:00:00 ROBBIE ity [facility] 2019-09-19 2019-09-19 Nurse Nurse, [facility] 1.2. 840.114 [id number] Univers 10:50:18 11:21:35 Visit Robbie Car Burg[place] 350.1.13.10 ity of [place] 4[place]2.7.2.[place] [phone] [address] 2019-09-19 2019-09-19 Outpatient R [facility] [id number] Univers 10:45:00 10:45:00 ity [facility] 2019-09-17 2019-09-17 [facility] 1.2.977.900 [id number] 00:00:00 00:00:00 Eduardo L Health 350.1.13.10 Surgical 4.2.7.2.686 Specialti [phone] Zena Jones 2019-09-17 2019-09-17 Refradha [facility] 1.2.887.324 [id number] Univers 00:00:00 00:00:00 Eduardo L Health 350.1.13.10 it y of Surgical 4.2.7.2.686 Bran as Specialti [phone] Me dical es 198 [facility] 2019-09-02 2019-09-02 Emergency Singer [facility] 1.2.691.536 [id number] Univers 05:59:14 07:38:00 Chico Jones 350.1.13.10 i ty of [place]2.7.2.[place] [phone] [facility] [address] [place] 2019-09-02 2019-09-02 Orders Doctor NIRAV 1.2.840.114 [id number] Univers 00:00:00 00:00:00 Only Unassigned, KENNETH 350.1.13.10 ity of [place] [facility] 4.2.7.2.686 Bran as [id number] [facility] [address] [place] 2019-08-30 2019-08-30 Telephone [facility] 1.2.840.114 [id number] Univers 00:00:00 00:00:00 [facility] 350.1.13.10 it y of Surgical 4.2.7.2.686 Bran as Specialti [phone] Sd dical es 198 [facility] 2019-08-24 2019-08-24 Outpatient R JOYCE [facility] [id number] Univers 14:00:00 14:00:00 [facility] 2019-08-10 2019-08-10 Office [facility] 1.2.840.114 [id number] Univers 15:15:27 16:21:06 Visit Robbie Jones 350.1.13.10 i ty of [place].2.7.2.686 [place] [facility] [phone] Sd dical nal 204 [facility] 2019-08-10 2019-08-10 Outpatient R JOYCE [facility] [id number] Univers 16:00:00 16:00:00 ROBBIE ity [facility] 2019-07-23 2019-07-23 Outpatient [facility] [id number] Univers 10:00:00 10:00:00 ROBBIE ity [facility] 2019-07-09 2019-07-09 Office [facility] 1.2.840.114 [id number] Univers 10:27:37 11:55:27 Visit Robbie Jones 350.1.13.10 i ty of [place] 4.2.7.2.[place] [phone] Sd dical nal 204 [facility] 2019-07-09 2019-07-09 Outpatient R JOYCE [facility] [id number] Univers 11:00:00 11:00:00 ROBBIE ity of [facility] 2019-07-04 2019-07-04 Outpatient R [facility] [id number] Univers 09:00:00 09:00:00 ity of [facility] 2019-07-03 2019-07-03 Outpatient R [facility] [id number] Univers 10:00:00 10:00:00 ity [facility] 2019-07-03 2019-07-03 Nurse Nurse, [facility] 1.2. 840.114 [id number] Univers 09:29:30 09:53:59 Visit Robbie Car Burg[place] 350.1.13.10 ity of [place] 4[place]2.7.2.[place] [phone] Sd dical nal 204 [facility] 2019-06-18 2019-06-18 Telephone [facility] 1.2.840.114 [id number] Univers 00:00:00 00:00:00 [facility] 350.1.13.10 it y of Surgical 4.2.7.2.686 Bran as Specialti [id number] Sd dical es 198 [facility] 2019-06-06 2019-06-06 Nurse Nurse, [facility] 1.2. 840.114 [id number] Univers 09:58:45 10:28:51 Visit Robbie Car Burg[place] 350.1.13.10 ity of [place] 4.2.7.2.[place] [phone] Sd dical nal 204 [facility] 2019-06-06 2019-06-06 Outpatient [facility] [id number] Univers 09:45:00 09:45:00 ROBBIE ity [facility] 2019-06-06 2019-06-06 Telephone [facility] 1.2.036.665 [id number] Univers 00:00:00 00:00:00 Gloria Jones 350.1.13.10 ity of [place].7.2.[place] [phone] Sd dical nal 377 [facility] 2019-05-24 2019-05-24 Outpatient R [facility] [id number] Univers 16:15:00 16:15:00 ROBBIE ity [facility] 2019-05-24 2019-05-24 Office [facility] 1.2.840.114 [id number] Univers 12:43:32 14:03:24 Visit [facility] 350.1.13.10 i ty of [place] 4.2.7.2.[place] [phone] Sd dical nal 204 [facility] 2019-05-24 2019-05-24 Outpatient R [facility] [id number] Univers 13:00:00 13:00:00 ROBBIE ity [facility] 2019-05-24 2019-05-24 Orders Doctor NIRAV 1.2.840.114 [id number] Univers 00:00:00 00:00:00 Only Unassigned, KENNETH 350.1.13.10 ity of [place] [facility] 4.2.7.2.686 Bran as [phone] [address] 2019-05-21 2019-05-21 Telephone [facility] 1.2.840.114 [id number] Univers 00:00:00 00:00:00 [facility] 350.1.13.10 it y of Surgical 4.2.7.2.686 [place] as Specialti [id number] Sd dical es 198 [facility] 2019-05-04 2019-05-04 Office [facility] 1.2.840.114 [id number] Univers 11:01:36 12:30:18 Visit Rm, Adc Surg Spec Procedure Burg[place] 3 50.1.13.10 ity of [place] 4.2.7.2.[place] [phone] Sd dical nal 204 [facility] 2019-05-04 2019-05-04 Outpatient R [facility] [id number] Univers 11:00:00 11:00:00 ROBBIE ity [facility] 2019-05-04 2019-05-04 Orders Doctor NIRAV 1.2.840.114 [id number] Univers 00:00:00 00:00:00 Only Unassigned, KENNETH 350.1.13.10 ity of [place] [facility] 4.2.7.2.686 Bran as [phone] [address] 2019-04-25 2019-04-25 Outpatient Ige-Odun[place] VFP VFP 796 [id number] [facility] 07:22:00 07:22:00 _J_AH 19300 Family Practic e 2019-04-24 2019-04-24 Outpatient [facility] [id number] [address] [place] [address] 00:00:00 00:00:00 JULIET Martinez Method [facility] 2019-04-23 2019-04-23 Tele[facility] 1.2.840.114 [id number] Univers 00:00:00 00:00:00 Robbie Burgess 350.1.13.10 i ty of [place] 4[place]2.7.2.[place] [phone] Sd dical nal [address] [place] [address] 2019-04-20 2019-04-20 Outpatient R JOYCE [facility] [id number] Univers 11:00:00 12:03:25 [facility] 2019-04-20 2019-04-20 [facility] 1.2.840.114 [id number] Univers 10:57:47 12:03:25 Visit [facility] Mireille 350.1.13.10 i ty of [place] 4.2.7.2.[place] [phone] Sd dical nal [address] [place] [address] 2019-04-20 2019-04-20 Orders Doctor NIRAV 1.2.840.114 [id number] Univers 00:00:00 00:00:00 Only Unassigned, KENNETH 350.1.13.10 ity of [place] [facility] 4.2.7.2.686 Bran as [phone] [address] 2018-10-31 2018-10-31 Refradha [facility] 1.2.443.965 [id number] Univers 00:00:00 00:00:00 [facility] 350.1.13.10 it y of Surgical 4.2.7.2.686 Bran as Specialti [phone] Sd dical es 198 [facility] 2018-10-06 2018-10-06 Office SUJEY Grant 1.2.658.317 [id number] Univers 08:24:12 09:20:41 Visit [facility] 350.1.13.10 it y of Surgical 4.2.7.2.686 Bran as Specialti [phone] Sd dical es 198 [facility] 2018-10-04 2018-10-04 Orders Doctor NIRAV 1.2.840.114 [id number] Univers 00:00:00 00:00:00 Only Unassigned, KENNETH 350.1.13.10 ity of [place] [facility] 4.2.7.2.686 Bran as [phone] [address] 2018-04-20 2018-04-20 Orders Doctor NIRAV 1.2.840.114 [id number] Univers 00:00:00 00:00:00 Only Unassigned, KENNETH 350.1.13.10 ity of [place] [facility] 4.2.7.2.686 Bran as [phone] [address] 2015-02-10 2015-02-10 Outpatient WOLFGANG V[facility]ADARES [facility] [id number] [id number] [facility] 16:05:13 17:30:32 LASHON holm of Medicin e [...] 32.2 g/dL 31.2-35.0 RDW-SD (test code = 77502-4) 43.8 fL 38.5-51.6 RDW-CV (test code = 788-0) 12.9 % 12.1-15.4 PLT (test code = 777-3) See_Comment [Au tomated message] The system which ge nerated this result transmit dena reference range: 150 - 32 8 10*3/?L. The reference range was not used to interpret th is result as normal/abnormal . MPV (test code = 64625-3) 11.2 fL 9.8-13.0 NRBC/100 WBC (test code = See_Comment [ Automated message] The 6744800715) system which ge nerated this result transmit dena reference range: 0.0 - 10 .0 /100 WBCs. The reference r nela was not used to interpr et this result as normal/abnor mal. NRBC x10^3 (test code = <0.01 See_Comment [Au tomated message] The 1058930689) system which ge nerated this result transmit dena reference range: 10*3/?L. The reference range was not u sed to interpret this result as normal/abnormal . SEG % (test code = 55816-5) 36 % 33-76 BAND % (test code = 89650-5) 2 % 0-1 H LYMPH % (test code = 50 % 14-54 92549-4) MONO % (test code = 32726-2) 7 % 0-4 H EOS % (test code = 64128-6) 5 % 0-3 H ANC (test code = 753-4) 3.25 10*3/uL 1.99-6.95 Lab Interpretation (test Abnormal code = 38910-7) [facility] [id number] 00:12:52 Test Item Value Reference Interpretation Comments Range TROPONIN I (test 0.004 ng/mL See_Comment [Automated code = 1054399845) message] The system which generated this result [...] biotin. Lab Interpretation Normal (test code = 98766-7) [id number] 00:09:50 Test Item Value Reference Range Interpretation Comments NT-proBNP (test code 774 pg/mL See_Comment H [Autom ated = 3393422531) message] The system which generated this result transmitted reference range : <=450. The reference range was not used to interpret this result as normal/abnormal . JETT (test code = JETT) Biotin has been reported to cause a negative bias, interpret results relative to patient's use of biotin. Lab Interpretation Abnormal (test code = 08656-8) [facility] THRMPLAS [id number] 00:03:30 Test Item Value Reference Range Interpretation Comments APTT Patient (test See_Comment [Automat ed code = 3173-2) message] The system which generated this result transmitted reference range : 23 - 38 Seconds . The reference range was not used to interpr et this result as normal/abnormal . JETT (test code = JETT) The [facility] patient population mean normal value for aPTT is 30 seconds. Lab Interpretation Normal (test code = 31203-8) [facility]2022-06-29 00:02:09 Test Item Value Reference Range Interpretation Comments MAGNESIUM (test code = 8297189396) 2.1 mg/dL 1.7-2.4 Lab Interpretation (test code = Normal 04268-2) [facility]. METABOLIC PANEL (33453)2021-09-02 00:01:48 Test Item Value Reference Range Interpretation Comments NA (test code = 142 mmol/L 135-145 2193070273) K (test code = 4.1 mmol/L 3.5-5.0 6821603434) CL (test code = 107 mmol/L 98-108 3291878636) CO2 TOTAL (test code = 27 mmol/L 23-31 9389609820) AGAP (test code = 2-16 2417041805) BUN (test code = 21 mg/dL 7-23 8445254814) GLUCOSE (test code = 135 mg/dL 70-110 H 4153901346) CREATININE (test code = 1.08 mg/dL 0.60-1.25 1494162302) TOTAL BILI (test code = 0.5 mg/dL 0.1-1.5 1906302789) CALCIUM (test code = 8.7 mg/dL 8.6-10.6 1441419913) T PROTEIN (test code = 6.3 g/dL 6.3-8.2 6367039314) ALBUMIN (test code = 3.8 g/dL 3.5-5.0 1448328798) ALK PHOS (test code = 77 U/L 34-122 3304510467) ALTv (test code = 23 U/L 5-50 1742-6) AST(SGOT) (test code = 29 U/L 13-40 3427437427) eGFR (test code = mL/min/1.73m2 3085929672) JETT (test code = JETT) Association of [...] tests). Lab Interpretation Abnormal (test code = 51277-0) [facility]Prothrom[facility] / [id number] 00:01:28 Test Item Value Reference Range Interpretation Comments PROTIME PATIENT (test See_Comment H [Auto mated message] code = 5964-2) The system [employer] generated this result transmitted ref erence range: 12.0 - 1 4.7 Seconds. The reference range was not used to int erpret this result as normal/abnormal . INR (test code = 6301-6) Nor mal INR <1.1; Warfarin Therap eutic range 2.0 to 3. 0 or 2.5 to 3.5, dep ending upon the indica tions. Lab Interpretation (test Abnormal code = 84797-5) [facility] Test Item Value Reference Range Interpretation Comments PTT (test code = 87.5 See_Comment H [Automated message] 63931-5) The system [employer] generated this result transmitted ref erence range: 22.5 - 3 6.0 seconds. The reference range was not used to int erpret this result as normal/abnormal . Lab Interpretation (test Abnormal code = 07205-8) [facility] Test Item Value Reference Range Interpretation Comments PARTIAL THROMBOPLASTIN TIME 87.5 seconds 22.5-36.0 H (BEAKER) (test code = 760) [id number] 07:07:31 Test Item Value Reference Range Interpretation Comments Magnesium (test code = 2.0 mg/dL 1.6-2.6 24530-9) JETT (test code = JETT) Technical Trainer ID - MERON L Lab Interpretation (test Normal code = 70885-0) [facility] 07:07:31 Test Item Value Reference Range Interpretation Comments Phosphorus (test code = 3.9 mg/dL 2.3-4.7 2777-1) JETT (test code = JETT) Technical Trainer ID - MERON L Lab Interpretation (test Normal code = 56824-9) [facility] 07:07:31 Test Item Value Reference Range Interpretation Comments MAGNESIUM (BEAKER) (test code = 2.0 mg/dL 1.6-2.6 627) Technical Trainer ID - MERON [id number] 07:07:31 Test Item Value Reference Range Interpretation Comments PHOSPHORUS (BEAKER) (test code = 3.9 mg/dL 2.3-4.7 604) Technical Trainer ID - MERON LComprehensive metabolic [id number] 07:07:30 Test Item Value Reference Range Interpretation Comments Protein, Total (test 6.0 See_Comment [Autom ated code = 2885-2) message] The system which generated this result transmit dena reference range : 6.0 - 8.3 gm/dL . The reference range was not u sed to interpret th is result as normal/abnormal . Albumin (test code = 3.4 g/dL 3.5-5.0 L 74365-7) Alkaline Phosphatase 53 U/L 40-150 (test code = 6768-6) Total Bilirubin (test 0.7 mg/dL 0.2-1.2 code = 1975-2) Sodium (test code = 141 meq/L 436-950 3113-2) Potassium (test code 3.9 meq/L 3.5-5.1 = 2823-3) Chloride (test code = 111 meq/L 98-107 H 5-0) CO2 (test code = 25 meq/L 22-29 2027-9) BUN (test code = 15 mg/dL 7-21 3094-0) Creatinine (test code 0.83 mg/dL 0.57-1.25 = 2160-0) Glucose (test code = 97 mg/dL 70-105 2345-7) Calcium (test code = 8.8 mg/dL 8.4-10.2 81233-9) AST (test code = 18 U/L 5-34 1920-8) ALT (test code = 16 U/L 6-55 1742-6) EGFR (test code = 87 mL/min/1.73 [place] [address]-1) NOT ACCURATE CREATININE CLEARANCE IN PREDICTING GLOMERULAR FILTRATION RATE . ESTIMATED GFR I S NOT APPLICABLE FOR DIALYSIS PATIEN TS. JETT (test code = JETT) Technical Trainer ID - PIAYA L Lab Interpretation Abnormal (test code = 22956-1) [facility] CenterCOMPREHENSIVE METABOLIC [id number] 07:07:30 Test Item Value Reference Range Interpretation [...] U/L 6-55 (test code = 347) EGFR (DAVE) (test 87 mL/min/1.73 ESTIMA DENA GFR IS code = 1092) sq m NOT ACCURATE CREATININE CLEARANCE IN PREDICTING GLOMERULAR FILTRATION RATE . ESTIMATED GFR I S NOT APPLICABLE FOR DIALYSIS PATIKASSY PENN. Technical Trainer ID - PIENRIKE HENDRICKSBDCUG5779-99-65 06:38:29 Test Item Value Reference Range Interpretation Comments PARTIAL THROMBOPLASTIN TIME 115.6 seconds 22.5-36.0 H (DAVE) (test code = 760) CBC with platelet count + automated jgts9618-02-34 06:16:50 Test Item Value Reference Range Interpretation Comments WBC (test code = 6690-2) 8.1 See_Comment [A utomated message] The system [employer] generated this result transmitted ref erence range: 3.5 - 10 .5 K/L. The refe rence range was not u sed to interpret this result as normal/abnor mal. RBC (test code = 789-8) 4.07 See_Comment L [Au tomated message] The system [employer] generated this result transmitted ref erence range: 4.63 - 6 .08 M/L. The refe rence range was not u sed to interpret this result as normal/abnor mal. MCHC (test code = 786-4) 32.2 See_Comment L [A utomated message] The system [employer] generated this result transmitted ref erence range: [...] code = 180 See_Comment [Aut omated message] 547-3) The system [employer] generated this result transmitted ref erence range: 150 - 45 0 K/CU MM. The referen ce range was not u sed to interpret this result as normal/abnor mal. MPV (test code = 11.2 fL 9.4-12.4 68344-3) nRBC (test code = 413) 0 See_Comment [Aut omated message] The system [employer] generated this result transmitted ref erence range: [...] See_Comment [Aut omated message] 670) The system [employer] generated this result transmitted ref erence range: 1.78 - 5 .38 K/L. The refe rence range was not u sed to interpret this result as normal/abnor mal. # Lymphs (test code = 2.81 See_Comment [Auto mated message] 414) The system [employer] generated this result transmitted ref erence range: 1.32 - 3 .57 K/L. The refe rence range was not u sed to interpret this result as normal/abnor mal. # Monos (test code = 0.65 See_Comment [Autom ated message] 415) The system [employer] generated this result transmitted ref erence range: 0.30 - 0 .82 K/L. The refe rence range was not u sed to interpret this result as normal/abnor mal. # Eos (test code = 416) 0.40 See_Comment [Au tomated message] The system [employer] generated this result transmitted ref erence range: 0.04 - 0 .54 K/L. The refe rence range was not u sed to interpret this result as normal/abnor mal. # Baso (test code = 417) 0.09 See_Comment H [A utomated message] The system [employer] generated this result transmitted ref erence range: 0.01 - 0 .08 K/L. The refe rence range was not u sed to interpret this result as normal/abnor mal. Immature 1 % 0-1 Granulocytes-Relative (test code = 2801) Lab Interpretation (test Abnormal code = 29595-0) [facility] W/PLT COUNT & AUTO [id number] 06:16:50 Test Item Value Reference Range Interpretation [...] = 2801) Daily Prothrombin time/INR while on zxmyijkh5984-50-96 06:13:51 Test Item Value Reference Interpretation Comments [...] valves. Lab Interpretation Abnormal (test code = 30962-4) [facility] CenterPROTHROMBIN TIME/[id number] 06:13:51 Test Item Value Reference Range Interpretation Comments PROTIME (BEAKER) 20.5 seconds 11.9-14.2 H (test code = 759) INR (BEAKER) (test 1.78 See_Comment [Automat ed message] code = 370) The system [employer] generated this result transmitted ref erence range: <=5.90. The reference range was not used to int erpret this result as normal/abnormal . RECOMMENDED COUMADIN/WARFARIN INR THERAPY RANGESSTANDARD DOSE: 2.0 - 3.0 Includes: PROPHYLAXIS for venous thrombosis, systemic embolization; TREATMENT for venous thrombosis and/or pulmonary embolus.HIGH RISK: Target INR is 2.5-3.5 for patients with mechanical heart valves.[id number] 01:58:38 Test Item Value Reference Range Interpretation Comments PARTIAL THROMBOPLASTIN TIME 88.8 seconds 22.5-36.0 H (BEAKER) (test code = 760) POC-Glucose riqlo3872-28-83 23:44:39 Test Item Value Reference Range Interpretation Comments POC-Glucose Meter (test 103 mg/dL 70-110 : TE STED AT [facility] code = 1538) [address] [facility] [place], [address]: Technical Trainer/Techni cory ID = [id number] for Ashley Waller Lab Interpretation (test Normal code = 18284-5) [facility] CenterPOCT-GLUCOSE [id number] 23:44:39 Test Item Value Reference Range Interpretation Comments POC-GLUCOSE METER 103 mg/dL 70-110 : [facility] (BEAKER[facility] (test code = [facility], 1538) [address]: Technical Trainer/Techni cory ID = [id number] for Ashley Garcia [id number] 18:49:14 Test Item Value Reference Range Interpretation Comments PARTIAL THROMBOPLASTIN TIME 62.6 seconds 22.5-36.0 H (BEAKER) (test code = 760) POCT-GLUCOSE [id number] 11:52:36 Test Item Value Reference Range Interpretation Comments POC-GLUCOSE METER 88 mg/dL 70-110 : TESTED A T [facility] 6720 (BEAKER) (test code = [facility], 1538) [address]: Technical Trainer/Techni cory ID = [id number] for EMPERATRIZ JEFFREYMario MARISELA [id number] 10:29:13 Test Item Value Reference Range Interpretation Comments PARTIAL THROMBOPLASTIN TIME 95.0 seconds 22.5-36.0 H (BEAKER) (test code = 760) [id number] 09:21:32 Test Item Value Reference Range Interpretation Comments PHOSPHORUS (BEAKER) (test code = 3.9 mg/dL 2.3-4.7 604) Technical Trainer ID - PIAYA LCOMPREHENSIVE METABOLIC [id number] 09:21:31 Test Item Value Reference Range Interpretation [...] S NOT APPLICABLE FOR DIALYSIS PATIEN TS. Technical Trainer ID - PIENRIKE [id number] 09:21:31 Test Item Value Reference Range Interpretation Comments MAGNESIUM (BEAKER) (test code = 2.0 mg/dL 1.6-2.6 627) Technical Trainer ID - PIENRIKE LPROTHROMBIN TIME/[id number] 06:28:22 Test Item Value Reference Range Interpretation Comments PROTIME (BEAKER) 16.4 seconds 11.9-14.2 H (test code = 759) INR (BEAKER) (test 1.35 See_Comment [Automat ed message] code = 370) The system [employer] generated this result transmitted ref erence range: <=5.90. The reference range was not used to int erpret this result as normal/abnormal . RECOMMENDED COUMADIN/WARFARIN INR THERAPY RANGESSTANDARD DOSE: 2.0 - 3.0 Includes: PROPHYLAXIS for venous thrombosis, systemic embolization; TREATMENT for venous thrombosis and/or pulmonary embolus.HIGH RISK: Target INR is 2.5-3.5 for patients with mechanical heart valves.CBC W/PLT COUNT & AUTO [id number] 06:24:34 Test Item Value Reference Range Interpretation [...] PERCENT (BEAKER) (test code = 2801) POCT-GLUCOSE [id number] 06:13:53 Test Item Value Reference Range Interpretation Comments POC-GLUCOSE METER 100 mg/dL 70-110 : TESTED A T [facility] 6720 (DAVE) (test code = [facility], 1538) [address]: Technical Trainer/Techni cory ID = [id number] for Ashley Garcia POCT-GLUCOSE [id number] 00:08:35 Test Item Value Reference Range Interpretation Comments POC-GLUCOSE METER 100 mg/dL 70-110 : TESTED A T [facility] [address] (DAVE) (test code = [facility], 1538) [address]: Technical Trainer/Techni cory ID = [id number] for Ashley Garcia [id number] 23:35:31 Test Item Value Reference Range Interpretation Comments PARTIAL THROMBOPLASTIN TIME 109.7 seconds 22.5-36.0 H (DAVE) (test code = 760) 2D Echo W/Doppler(CW/PW/Color)2021-04-06 17:15:30Ejection FractionSLEH ECHO HEARTLAB MKCKESSON CPACSCHI [facility] 09:46:56 Test Item Value Reference Range Interpretation Comments PARTIAL THROMBOPLASTIN TIME 33.2 seconds 22.5-36.0 (DAVE) (test code = 760) CT, CHEST, WITH [id number] 08:40:00Unlisted Reason for Exam - Click Yes and Enter Reason Below->Yespost TAVRUnlisted 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 Technical Trainer ID - MERON LOperator ID - JAFVNPYBMAWF1844-57-33 05:55:52 Test Item Value Reference Range Interpretation Comments PHOSPHORUS (BEAKER) (test code = 4.2 mg/dL 2.3-4.7 604) Technical Trainer ID - MERON [id number] 05:55:51 Test Item Value Reference Range Interpretation Comments MAGNESIUM (BEAKER) (test code = 2.0 mg/dL 1.6-2.6 627) Technical Trainer ID - MERON LPROTHROMBIN TIME/[id number] 05:31:15 Test Item Value Reference Range Interpretation Comments PROTIME (BEAKER) 14.4 seconds 11.9-14.2 H (test code = 759) INR (BEAKER) (test 1.14 See_Comment [Automat ed message] code = 370) The system [employer] generated this result transmitted ref erence range: <=5.90. The reference range was not used to int erpret this result as normal/abnormal . RECOMMENDED COUMADIN/WARFARIN INR THERAPY RANGESSTANDARD DOSE: 2.0 - 3.0 Includes: PROPHYLAXIS for venous thrombosis, systemic embolization; TREATMENT for venous thrombosis and/or pulmonary embolus.HIGH RISK: Target INR is 2.5-3.5 for patients with mechanical heart valves.CBC W/PLT COUNT & AUTO [id number] 05:15:40 Test Item Value Reference Range Interpretation [...] 0-1 PERCENT (BEAKER) (test code = 2801) [id number] 02:49:42 Test Item Value Reference Range Interpretation Comments PARTIAL THROMBOPLASTIN TIME 43.7 seconds 22.5-36.0 H (BEAKER) (test code = 760) POCT-GLUCOSE [id number] 22:40:25 Test Item Value Reference Range Interpretation Comments POC-GLUCOSE METER 95 mg/dL 70-110 : TESTED A T [facility] 6720 (BEAKER) (test code = [facility], 1538) [address]: Technical Trainer/Techni cory ID = [id number] for Alba Matias [id number] 18:10:18 Test Item Value Reference Range Interpretation Comments PARTIAL THROMBOPLASTIN TIME 109.1 seconds 22.5-36.0 H (BEAKER) (test code = 760) [id number] 12:21:05 Test Item Value Reference Range Interpretation Comments PARTIAL THROMBOPLASTIN TIME 70.1 seconds 22.5-36.0 H (BEAKER) (test code = 760) POCT-GLUCOSE [id number] 06:54:14 Test Item Value Reference Range Interpretation Comments POC-GLUCOSE METER 93 mg/dL 70-110 : TESTED A T [facility] 67[address] (BEAKER) (test code = [facility], 1538) [address]: Technical Trainer/Techni cory ID = [id number] for Ela Hilairo [id number] 05:14:19 Test Item Value Reference Range Interpretation Comments PARTIAL THROMBOPLASTIN TIME 85.7 seconds 22.5-36.0 H (BEAKER) (test code = 760) PROTHROMBIN TIME/[id number] 05:12:27 Test Item Value Reference Range Interpretation Comments PROTIME (BEAKER) 14.5 seconds 11.9-14.2 H (test code = 759) INR (BEAKER) (test 1.15 See_Comment [Automat ed message] code = 370) The system [employer] generated this result transmitted ref erence range: [...] S NOT APPLICABLE FOR DIALYSIS PATIEN TS. Technical Trainer ID - YHOIGMMJDXT4234-99-30 05:05:36 Test Item Value Reference Range Interpretation Comments MAGNESIUM (BEAKER) (test code = 2.0 mg/dL 1.6-2.6 627) Technical Trainer ID - BRWDLSSVSJPF1872-52-79 05:05:36 Test Item Value Reference Range Interpretation Comments PHOSPHORUS (BEAKER) (test code = 3.8 mg/dL 2.3-4.7 604) Technical Trainer ID - DBCBC W/PLT COUNT & AUTO [id number] 04:29:42 Test Item Value Reference Range Interpretation [...] PERCENT (BEAKER) (test code = 2801) POCT-GLUCOSE [id number] 00:54:16 Test Item Value Reference Range Interpretation Comments POC-GLUCOSE METER 94 mg/dL 70-110 : TESTED A T [facility] [address] (BEAKER) (test code = [place], 1538) [address]: Technical Trainer/Techni cory ID = [id number] for Ela Hilario PROTHROMBIN TIME/[id number] 09:53:09 Test Item Value Reference Range Interpretation Comments PROTIME (BEAKER) 15.4 seconds 11.9-14.2 H (test code = 759) INR (BEAKER) (test 1.24 See_Comment [Automat ed message] code = 370) The system [employer] generated this result transmitted ref erence range: <=5.90. The reference range was not used to int erpret this result as normal/abnormal . RECOMMENDED COUMADIN/WARFARIN INR THERAPY RANGESSTANDARD DOSE: 2.0 - 3.0 Includes: PROPHYLAXIS for venous thrombosis, systemic embolization; TREATMENT for venous thrombosis and/or pulmonary embolus.HIGH RISK: Target INR is 2.5-3.5 for patients with mechanical heart valves.[id number] 07:06:20 Test Item Value Reference Range Interpretation Comments PHOSPHORUS (BEAKER) (test code = 3.0 mg/dL 2.3-4.7 604) Technical Trainer ID - TRISTIAN WCOMPREHENSIVE METABOLIC [id number] 07:06:19 Test Item Value Reference Range Interpretation [...] S NOT APPLICABLE FOR DIALYSIS PATIEN TS. Technical Trainer ID - TRISTIAN [id number] 07:06:19 Test Item Value Reference Range Interpretation Comments MAGNESIUM (BEAKER) (test code = 2.0 mg/dL 1.6-2.6 627) Technical Trainer ID - TRISTIAN ASASO0101-85-07 06:30:10 Test Item Value Reference Range Interpretation Comments PARTIAL THROMBOPLASTIN TIME 76.4 seconds 22.5-36.0 H (BEAKER) (test code = 760) CBC W/PLT COUNT & AUTO [id number] 06:21:06 Test Item Value Reference Range Interpretation [...] 0-1 PERCENT (BEAKER) (test code = 2801) [id number] 23:26:41 Test Item Value Reference Range Interpretation Comments PARTIAL THROMBOPLASTIN TIME 81.1 seconds 22.5-36.0 H (BEAKER) (test code = 760) Hemoglobin and rvpmgwpjxp4029-46-28 23:26:00 Test Item Value Reference Range Interpretation [...] = 4544-3) JETT (test code = JETT) Technical Trainer ID - [id number] ID - [id number] Lab Interpretation Abnormal (test code = 69720-2) [facility] CenterHEMOGLOBIN AND [id number] 23:26:00 Test Item Value Reference Range Interpretation Comments HEMOGLOBIN (BEAKER) (test code = 11.6 GM/DL 13.7-17.5 L 410) HEMATOCRIT (BEAKER) (test code = 35.4 % 40.1-51.0 L 411) Technical Trainer ID - 6000Operator ID - [id number] 12:04:57 Test Item Value Reference Range Interpretation Comments PARTIAL THROMBOPLASTIN TIME 32.2 seconds 22.5-36.0 (BEAKER) (test code = 760) Platelet [id number] 12:03:08 Test Item Value Reference Range Interpretation Comments Platelets (test code 110 See_Comment L [Autom ated = 777-3) message] The system which generated this result transmit dena reference range : 150 - 450 K/CU MM. The reference range was not u sed to interpret th is result as normal/abnormal . JETT (test code = JETT) Technical Trainer ID - [id number] ID - [id number] Lab Interpretation Abnormal (test code = 01699-6) [facility] CenterPLATELET [id number] 12:03:08 Test Item Value Reference Range Interpretation Comments PLATELET COUNT (BEAKER) (test 110 K/CU MM 150-450 L code = 756) Technical Trainer ID - 6000Operator ID - [id number] 05:25:05 Test Item Value Reference Range Interpretation Comments PHOSPHORUS (BEAKER) (test code = 2.2 mg/dL 2.3-4.7 L 604) Technical Trainer ID - PIAYA LCOMPREHENSIVE METABOLIC [id number] 05:25:04 Test Item Value Reference Range Interpretation [...] S NOT APPLICABLE FOR DIALYSIS PATIEN TS. Technical Trainer ID - PIAYA BXWOHXWLSV8476-49-24 05:25:04 Test Item Value Reference Range Interpretation Comments MAGNESIUM (BEAKER) (test code = 2.0 mg/dL 1.6-2.6 627) Technical Trainer ID - PIAYA LCBC W/PLT COUNT & AUTO [id number] 05:07:55 Test Item Value Reference Range Interpretation [...] PERCENT (BEAKER) (test code = 2801) PROTHROMBIN TIME/[id number] 05:04:30 Test Item Value Reference Range Interpretation [...] for patients with mechanical heart valves.Urinalysis Microscopic [id number] 17:49:35 Test Item Value Reference Range Interpretation Comments RBC, UA (test 149 See_Comment [Automated me ssage] code = 09454-8) The system [facility] generated this result transmit dena reference range : /HPF. The refer ence range was not u sed to interpret th is result as normal/abnormal . WBC, UA (test 72 See_Comment [Automated me ssage] code = 5821-4) [facility] result transmit dena reference range : /HPF. The refer ence range was not u sed to interpret th is result as normal/abnormal . Bacteria, UA Occasional (test code = 68094-4) Mucus (test Few code = 8247-9) Crystals, Urine None Seen (test code = 87400-1) JETT (test code Technical Trainer ID - tech = JETT) [facility] CenterURINAL[facility]IS [id number] 17:49:35 Test Item Value Reference Range Interpretation Comments RBC UA (BEAKER) (test code = 519) 149 /HPF WBC UA (BEAKER) (test code = 520) 72 /HPF BACTERIA (BEAKER) (test code = Occasional 517) MUCUS (BEAKER) (test code = 1574) Few CRYSTALS, URINE (BEAKER) (test None Seen code = 1521) Technical Trainer ID - techUrinalysis with Microscopic If Ztrnvajle8313-11-42 17:22:23 Test Item Value Reference Range Interpretation Comments Color, UA (test code = Yellow 5778-6) Clarity, UA (test code = Hazy 5767-9) Specific [place], UA (test 1.014 1.001-1.035 code = 5811-5) pH, UA (test code = 6.0 5.0-8.0 5803-2) Protein, UA (test code = 200 mg/dL Negative A 36707-1) Glucose, UA (test code = Negative Negative 365) Ketones, UA (test code = Negative Negative 2514-8) Bilirubin, UA (test code = Negative Negative 58935-0) Blood, UA (test code = Large Negative A 12828-8) Nitrite, UA (test code = Negative Negative 5802-4) Leukocytes, UA (test code Moderate Negative A = 5799-2) Urobilinogen, UA (test 0.2 mg/dL 0.2-1.0 code = 77439-8) Specimen Source (test code = 2795) JETT (test code = JETT) Technical Trainer ID - [auto] Lab Interpretation (test Abnormal code = 32917-8) [facility] WITH MICROSCOPIC IF [id number] 17:22:23 Test Item Value Reference Range Interpretation [...] = 463) SOURCE(BEAKER) (test code = 2795) Technical Trainer ID - [auto]Hepatic function [id number] 09:19:11 Test Item Value Reference Range Interpretation Comments Protein, Total (test 6.5 See_Comment [Autom ated code = 2885-2) message] The system which generated this result transmit dena reference range : 6.0 - 8.3 gm/dL . The reference range was not u sed to interpret th is result as normal/abnormal . Albumin (test code = 3.8 g/dL 3.5-5.0 70610-0) Total Bilirubin (test 1.5 mg/dL 0.2-1.2 H code = 1975-2) Bilirubin, Direct 0.5 mg/dL 0.1-0.5 (test code = 1967-7) Alkaline Phosphatase 60 U/L 40-150 (test code = 6768-6) AST (test code = 17 U/L 5-34 1920-8) ALT (test code = 12 U/L 55 1742-6) JETT (test code = JETT) Technical Trainer ID - PIAYA L Lab Interpretation Abnormal (test code = 13731-0) [facility] CenterHEPATIC FUNCTION [id number] 09:19:11 Test Item Value Reference Range Interpretation [...] (SGOT) (BEAKER) (test code = 17 U/L 34 353) ALT (SGPT) (BEAKER) (test code = 12 U/L 55 347) Technical Trainer ID - PIAYA LBasic metabolic [id number] 09:19:10 Test Item Value Reference Range Interpretation Comments Sodium (test code = 140 meq/L 274-995 7267-2) Potassium (test code = 3.9 meq/L 3.5-5.1 2823-3) Chloride (test code = 105 meq/L 98-107 5-0) CO2 (test code = 28 meq/L 22-29 2027-9) BUN (test code = 18 mg/dL 7- 3094-0) Creatinine (test code 1.12 mg/dL 0.57-1.25 = 2160-0) Glucose (test code = 142 mg/dL 70-105 H 2345-7) Calcium (test code = 8.9 mg/dL 8.4-10.2 06691-2) EGFR (test code = 62 mL/min/1.[place] [address]-8) NOT ACCURATE CREATININE CLEARANCE IN PREDICTING GLOMERULAR FILTRATION RATE . ESTIMATED GFR I S NOT APPLICABLE FOR DIALYSIS PATIENTS. JETT (test code = JETT) Technical Trainer ID - MERON Sandhu Lab Interpretation Abnormal (test code = 45699-0) [facility] METABOLIC [id number] 09:19:10 Test Item Value Reference Range Interpretation [...] S NOT APPLICABLE FOR DIALYSIS PATIEN TS. Technical Trainer ID - PIENRIKE LPROTHROMBIN TIME/[id number] 09:10:27 Test Item Value Reference Range Interpretation Comments PROTIME (BEAKER) 22.4 seconds 11.9-14.2 H (test code = 759) INR (BEAKER) (test 1.99 See_Comment [Automat ed message] code = 370) The system [employer] generated this result transmitted ref erence range: <=5.90. The reference range was not used to int erpret this result as normal/abnormal . RECOMMENDED COUMADIN/WARFARIN INR THERAPY RANGESSTANDARD DOSE: 2.0 - 3.0 Includes: PROPHYLAXIS for venous thrombosis, systemic embolization; TREATMENT for venous thrombosis and/or pulmonary embolus.HIGH RISK: Target INR is 2.5-3.5 for patients with mechanical heart valves.CBC W/PLT COUNT & AUTO [id number] 08:59:10 Test Item Value Reference Range Interpretation [...] PERCENT (BEAKER) (test code = 2801) BLOOD [id number] 10:00:00 Test Item Value Reference Range Interpretation Comments CULTURE (BEAKER) (test No growth in 5 days code = 1095) BLOOD [id number] 10:00:00 Test Item Value Reference Range Interpretation Comments CULTURE (BEAKER) (test No growth in 5 days code = 1095) CT, CTA, SIFRB0911-04-03 09:40:00Unlisted Reason for Exam - Click Yes and Enter Reason Below->YesUnlisted Reason for Exam->s/p TAVR and SAVR with gradient [facility] CENTERName: TREV STONE : 1935 Sex: MAddendum [...] dictated regarding the non-vascular findings by the Sat Math Tutor Radiologist. Major vascularfindings were discussed with Dr. Valladares at the time of dictation. Signed: Edwardo East Verified Date/Time: 01/02/2020 16:43:17 Reading Location: [place] [address] [address] Reading Room COMPREHENSIVE METABOLIC [id number] 07:24:00 Test Item Value Reference Range Interpretation [...] S NOT APPLICABLE FOR DIALYSIS PATIEN TS. Technical Trainer ID Justine MATHEW [id number] 07:24:00 Test Item Value Reference Range Interpretation Comments MAGNESIUM (BEAKER) (test code = 1.8 mg/dL 1.6-2.6 627) Technical Trainer ID Justine MATHEW [id number] 07:24:00 Test Item Value Reference Range Interpretation Comments PHOSPHORUS (BEAKER) (test code = 2.7 mg/dL 2.3-4.7 604) Technical Trainer ID Justine MATHEW FPROTHROMBIN TIME/[id number] 07:00:00 Test Item Value Reference Range Interpretation [...] valves.While on warfarin.CBC W/PLT COUNT & AUTO [id number] 06:56:00 Test Item Value Reference Range Interpretation [...] PERCENT (BEAKER) (test code = 2801) PROTHROMBIN TIME/[id number] 18:01:00 Test Item Value Reference Range Interpretation [...] is 2.5-3.5 for patients wiht mechanical heart valves.[id number] 06:38:00 Test Item Value Reference Range Interpretation Comments MAGNESIUM (BEAKER) (test code = 1.8 mg/dL 1.6-2.6 627) Technical Trainer ID - EDASICOMPREHENSIVE METABOLIC [id number] 06:38:00 Test Item Value Reference Range Interpretation [...] S NOT APPLICABLE FOR DIALYSIS PATIEN TS. Technical Trainer ID - [id number] 06:38:00 Test Item Value Reference Range Interpretation Comments PHOSPHORUS (BEAKER) (test code = 2.7 mg/dL 2.3-4.7 604) Technical Trainer ID - EDASICBC W/PLT COUNT & AUTO [id number] 06:03:00 Test Item Value Reference Range Interpretation [...] PERCENT (BEAKER) (test code = 2801) MRSA [id number] 15:50:00 Test Item Value Reference Range Interpretation Comments CULTURE (BEAKER) (test code No MRSA isolated = 1095) FL, ESOPH, SWALLOW FUNCTION, WITH CINE OR [id number] 15:38:00D/c NGT prior to the study and then attemptReason for exam:->dysphagea [facility] : 1935 Sex: [...] Wilkinson Verified Date/Time: 01/01/2020 15:38:45 Reading Location: [place] [address]X Ortho Consult Reading Room [id number] 06:21:00 Test Item Value Reference Range Interpretation Comments MAGNESIUM (BEAKER) (test code = 1.9 mg/dL 1.6-2.6 627) Technical Trainer ID - edasiCOMPREHENSIVE METABOLIC [id number] 06:21:00 Test Item Value Reference Range Interpretation [...] S NOT APPLICABLE FOR DIALYSIS PATIEN TS. Technical Trainer ID - [id number] 06:21:00 Test Item Value Reference Range Interpretation Comments PHOSPHORUS (BEAKER) (test code = 1.8 mg/dL 2.3-4.7 L 604) Technical Trainer ID - edasiCBC W/PLT COUNT & AUTO [id number] 05:52:00 Test Item Value Reference Range Interpretation [...] PERCENT (BEAKER) (test code = 2801) POCT-GLUCOSE [id number] 19:08:00 Test Item Value Reference Range Interpretation Comments POC-GLUCOSE METER 73 mg/dL 70-110 : TESTED A T [facility] 6720 (BEAKER) (test code = [facility], 153) [address]: Technical Trainer/Techni cory ID = [id number] for ALEXANDRO EPSTEIN POCT-GLUCOSE [id number] 14:49:00 Test Item Value Reference Range Interpretation Comments POC-GLUCOSE METER 74 mg/dL 70-110 : TESTED A T [facility] 6720 (BEAKER) (test code = [facility], 153) [address]: Technical Trainer/Techni cory ID = [id number] for BRETT-STAFFOR TRELL Chauhan MRSA [id number] 12:26:00 Test Item Value Reference Range Interpretation Comments CULTURE (BEAKER) (test code No MRSA isolated = 1095) SPUTUM CULTURE + GRAM [id number] 12:26:00 Test Item Value Reference Range Interpretation Comments CULTURE (BEAKER) 1+ Normal respiratory (test code = 1095) regina present GRAM STAIN RESULT 4+ WBCs (BEAKER) (test code = 1123) GRAM STAIN RESULT 0-5 epithelial cells (BEAKER) (test code = 42372) GRAM STAIN RESULT <1+ gram positive cocci (BEAKER) (test code = in pairs and clusters 59984) COMPREHENSIVE METABOLIC [id number] 06:48:00 Test Item Value Reference Range Interpretation [...] S NOT APPLICABLE FOR DIALYSIS PATIEN TS. Technical Trainer ID - MERON [id number] 06:48:00 Test Item Value Reference Range Interpretation Comments MAGNESIUM (BEAKER) (test code = 2.0 mg/dL 1.6-2.6 627) Technical Trainer ID - MERON [id number] 06:48:00 Test Item Value Reference Range Interpretation Comments PHOSPHORUS (BEAKER) (test code = 2.0 mg/dL 2.3-4.7 L 604) Technical Trainer ID - MERON AGGARWAL/Jaye, RENAL, [id number] 06:39:00Reason for exam:- >worsening kidney function/ metabolic acidosis [facility] : 1935 Sex: [...] appearance of the kidneys. Signed: Gerry Sinha Verified Date/Time: 12/31/2019 06:39:51 CBC W/PLT COUNT & AUTO [id number] 06:11:00 Test Item Value Reference Range Interpretation [...] = 2801) RAD, CHEST, 1 VIEW, NON [id number] 01:43:00Reason for exam:->respiratory failureShould this be performed at the bedside?->Yes [facility] 1935 Sex: MFINAL [...] 12/31/2019 01:43:07 CBC W/PLT COUNT & AUTO [id number] 18:42:00 Test Item Value Reference Range Interpretation [...] (BEAKER) (test code = 2801) VANCOMYCIN LEVEL, [id number] 09:49:00 Test Item Value Reference Range Interpretation Comments VANCOMYCIN TROUGH (BEAKER) (test 9.6 ug/mL 10.0-20.0 L code = 522) Technical Trainer ID - SUHA CCOMPREHENSIVE METABOLIC [id number] 05:31:00 Test Item Value Reference Range Interpretation [...] S NOT APPLICABLE FOR DIALYSIS PATIEN TS. Technical Trainer ID - MERON [id number] 05:13:00 Test Item Value Reference Range Interpretation Comments MAGNESIUM (BEAKER) (test code = 1.6 mg/dL 1.6-2.6 627) Technical Trainer ID - MERON [id number] 05:13:00 Test Item Value Reference Range Interpretation Comments PHOSPHORUS (BEAKER) (test code = 2.6 mg/dL 2.3-4.7 604) Technical Trainer ID - MERON LCBC W/PLT COUNT & AUTO [id number] 04:43:00 Test Item Value Reference Range Interpretation Comments WHITE BLOOD CELL COUNT 19.3 K/ L 3.5-10.5 H (BEAKER) (test code = 775) RED BLOOD CELL COUNT 3.87 M/ L 4.63-6.08 L (BEAKER) (test code = 761) HEMOGLOBIN (BEAKER) 11.7 GM/DL 13.7-17.5 L Discorda nt HGB (test code = 410) results co mpared to previous result s; clinical correl ation required.[id number] HEMATOCRIT (BEAKER) 36.4 % 40.1-51.0 L (test [...] (BEAKER) (test code = 2801) BLOOD GAS, [id number] 04:36:00 Test Item Value Reference Range Interpretation [...] (BEAKER) (test code = 1819) 50.0 CORTISOL,60 [id number] 03:53:00 Test Item Value Reference Range Interpretation [...] a study by Julia et al (ATUL 2000,283(8):2380-01), the ACTH Stimulation Test provides important prognostic [...] Pharmacy Policy and Procedure Section on The Source.Technical Trainer ID - PIAYA LCORTISOL,30 MIN 2019-12-30 03:52:00 [...] Pharmacy Policy and Procedure Section on The Source.Technical Trainer ID - PIAYA LRAD, CHEST, 1 VIEW, NON [id number] 03:30:00Reason for exam:->respiratory failureShould this be performed at the bedside?->Yes [facility] 1935 Sex: [...] Anastasiia Aponte MDReport Verified Date/Time: 12/30/2019 03:30:42 CORTISOL,[id number] 01:31:00 Test Item Value Reference Range Interpretation [...] Pharmacy Policy and Procedure Section on The Source.Technical Trainer ID - PIAYA LCREATININE, RANDOM [id number] 19:52:00 Test Item Value Reference Range Interpretation Comments CREATININE URINE (BEAKER) (test 310.8 mg/dL code = 375) Reference Range: No NormalsOperator ID - DBSODIUM, RANDOM [id number] 19:52:00 Test Item Value Reference Range Interpretation Comments SODIUM URINE (BEAKER) (test code = < meq/L 243) Reference Range: No NormalsOperator ID - DBPOCT-GLUCOSE [id number] 18:14:00 Test Item Value Reference Range Interpretation Comments POC-GLUCOSE METER 105 mg/dL 70-110 : TESTED A T [facility] 6720 (BEAKER) (test code = [place], 1538) [address]: Technical Trainer/Techni cory ID = [id number] for Laura Bauman BASIC METABOLIC [id number] 16:24:00 Test Item Value Reference Range Interpretation [...] S NOT APPLICABLE FOR DIALYSIS PATIEN TS. Technical Trainer ID - [id number] 16:23:00 Test Item Value Reference Range Interpretation Comments MAGNESIUM (BEAKER) (test code = 1.6 mg/dL 1.6-2.6 627) Technical Trainer ID - DBBLOOD GAS, [id number] 16:09:00 Test Item Value Reference Range Interpretation [...] = 1819) 50.0 RAD, ABDOMEN/KUB, 1 VIEW [id number] 12:40:00Reason for exam:->NGT placement [facility] CENTERName: TREV STONE PRITI : 1935 Sex: MFINAL REPORT TECHNIQUE: Frontal [...] spine. Calcifications along the diaphragm. Signed: Gualberto Levyepmary kay Verified Date/Time: 12/29/2019 12:40:58 Reading Location: [facility] C013Y CT Body Reading Room B-TYPE NATRIURETIC FACTOR (BNP)2019-12-29 11:35:00 Test Item Value Reference Range Interpretation Comments B-TYPE NATRIURETIC PEPTIDE (BEAKER) 193 pg/mL 0-100 H (test code = 700) Technical Trainer ID - SUHA CLACTIC ACID, [id number] 11:25:00 Test Item Value Reference Range Interpretation Comments LACTATE BLOOD ARTERIAL (2) 3.3 mmol/L 0.5-2.2 H (BEAKER) (test code = 2874) Technical Trainer ID - SUHA CLACTIC ACID, [id number] 07:06:00 Test Item Value Reference Range Interpretation Comments LACTATE BLOOD VENOUS 3.49 mmol/L 0.50-2.20 H Specime n slightly (2) (BEAKER) (test hemolyzed code = 2872) Technical Trainer ID - EDASIURINALYSIS W/ REFLEX URINE [id number] 06:56:00 Test Item Value Reference Range Interpretation [...] Many 1585) SOURCE(BEAKER) (test code = 2795) Technical Trainer ID - [auto]Technical Trainer ID - techPROTHROMBIN TIME/[id number] 06:54:00 Test Item Value Reference Range Interpretation [...] is 2.5-3.5 for patients wiht mechanical heart valves.[id number] 06:54:00 Test Item Value Reference Range Interpretation Comments PARTIAL THROMBOPLASTIN TIME 30.3 seconds 22.5-36.0 (BEAKER) (test code = 760) RAD, CHEST, 1 VIEW, NON [id number] 06:51:00Reason for exam:->ETT placementShould this be performed at the bedside?->Yes [facility] CENTERName: TREV [...] Verified Date/Time: 12/29/2019 06:51:17 TSH/FREE T4 IF [id number] 06:47:00 Test Item Value Reference Range Interpretation Comments THYROID STIMULATING HORMONE 1.830 uIU/mL 0.350-4.940 (BEAKER) (test code = 772) Technical Trainer ID - EDASIZHANG [id number] 06:40:00 Test Item Value Reference Range Interpretation [...] failure, acidosis, acute neurological disease, and persistent tachyarrhythmia.Technical Trainer ID - EDASITRRANI [id number] 06:36:00 Test Item Value Reference Range Interpretation [...] failure, acidosis, acute neurological disease, and persistent tachyarrhythmia.Technical Trainer ID - EDASICBC W/PLT COUNT & AUTO [id number] 04:56:00 Test Item Value Reference Range Interpretation [...] PERCENT (BEAKER) (test code = 2801) TROPONIN [id number] 04:43:00 Test Item Value Reference Range Interpretation [...] failure, acidosis, acute neurological disease, and persistent tachyarrhythmia.Technical Trainer ID - EDASICOMPREHENSIVE METABOLIC [id number] 04:37:00 Test Item Value Reference Range Interpretation [...] S NOT APPLICABLE FOR DIALYSIS PATIEN TS. Technical Trainer ID - [id number] 04:37:00 Test Item Value Reference Range Interpretation Comments MAGNESIUM (BEAKER) (test code = 1.7 mg/dL 1.6-2.6 627) Technical Trainer ID - [id number] 04:37:00 Test Item Value Reference Range Interpretation Comments PHOSPHORUS (BEAKER) (test code = 3.7 mg/dL 2.3-4.7 604) Technical Trainer ID - EDASIRAD, CHEST, 1 VIEW, NON [id number] 04:27:00Reason for exam:->ETT positionShould this be performed at the bedside?->Yes [facility] CENTERName: TREV STONE : 1935 Sex: MFINAL REPORT CLINICAL INDICATION: Support lines. Comparison: 12/28/2019 The tip of an endotracheal tube is in good position above the kira at the level of the midclavicular heads.The cardiomediastinal contours are stable. Bilateral parenchymal and pleural opacities are unchanged. There is no pneumothorax. Signed: Gerry Sinha MDReport Verified Date/Time: 12/29/2019 04:27:00 -COV2/RT-PCR ([facility])2019-12-29 04:15:00 Test Item Value Reference Range Interpretation Comments SARS-COV2/RT-PCR (test Negative Not Detected, Negative, code = 3510446) See external report for linked test SARS-COV-2 PERFORMING LAB [facility] (test code = 4286599) Negative result for this test determines that [...] of the Act.Fact Sheet for Healthcare Prov iders:https://www.[employer]/sites/default/files/product/documents/Fact_Sheet_HC _Ldvsgwznm_Ffik_AYGF-ShK-8.pdfFact Sheet for Healthcare Patients:https://www.[employer]/sites/default/files/product/docume nts/Hwcf_Ugxni_Iqzgeziv_Krgx_FXYP-DxO-1.pdfPerforming Laboratory:[address], [place] [address]JBII-VUXRG GASES, [id number] 04:14:00 Test Item Value Reference Range Interpretation [...] TESTED AT [facility] 6720 ARTERIAL-POC [facility], (BEAKER) (test code 1959[address]: = 1841) Technical Trainer/Techni cory ID = [id number] for CR DONNELL HERRERA [id number] 04:14:00 Test Item Value Reference Range Interpretation Comments POC-SODIUM (BEAKER) 141 meq/L 135-148 : TESTED AT [place] [address]20 (test code = 1542) [facility], [address]: Technical Trainer/Techni cory ID = [id number] for MARCELLUS DONNELL [id number] 04:14:00 Test Item Value Reference Range Interpretation Comments POC-POTASSIUM 3.6 meq/L 3.6-5.5 : TESTED AT [facility] 6720 (BEAKER) (test code [facility], = 1540) [address]: Technical Trainer/Techni cory ID = [id number] for DONNELL GERMAIN [id number] 04:14:00 Test Item Value Reference Range Interpretation Comments POC-HEMOGLOBIN 16.3 g/dL 13.0-16.8 : TESTED AT [facility] 6720 (BEAKER) (test code [facility], = 1856) [address]: Technical Trainer/Techni cory ID = [id number] for DONNELL GERMAIN [id number] 04:14:00 Test Item Value Reference Range Interpretation Comments POC-HEMATOCRIT 48 % 40-50 : Technical Trainer/Te chnician ID = ([facility]) (test code = 864809 for DONNELL GERMAIN 1857) POCT-CALCIUM [id number] 04:14:00 Test Item Value Reference Range Interpretation Comments POC-CALCIUM IONIZED 1.18 mmol/L 1.12-1.27 : TESTED AT [facility] ([facility]) (test code = [facility] 1536) [place], [address]: Technical Trainer/Techni cory ID = [id number] for DONNELL GERMAIN [id number] 04:14:00 Test Item Value Reference Range Interpretation Comments POC-GLUCOSE ([facility]) 145 mg/dL 70-110 H : TESTE D AT [facility] 67 (test code = 1855) [place], [address]: Technical Trainer/Techni cory ID = [id number] for DONNELL GERMAIN CBC W/PLT COUNT & AUTO [id number] 23:29:00 Test Item Value Reference Range Interpretation Comments WHITE BLOOD CELL COUNT ([facility]) 13.1 K/ L 3.5-10.5 H (test code = 775) RED BLOOD CELL COUNT ([facility]) 4.75 M/ L 4.63-6.08 (test code = 761) HEMOGLOBIN ([facility]) (test code = 14.2 GM/DL 13.7-17.5 410) HEMATOCRIT ([facility]) (test code = 44.2 % 40.1-51.0 411) MEAN CORPUSCULAR VOLUME ([facility]) 93.1 fL 79.0-92.2 H (test code = [...] (BEAKER) (test code = 2801) BASIC METABOLIC [id number] 23:07:00 Test Item Value Reference Range Interpretation [...] S NOT APPLICABLE FOR DIALYSIS PATIEN TS. Technical Trainer ID - DBRAD, CHEST, 1 VIEW, NON [id number] 22:49:00Reason for exam:->pre-anesthesiaShould this be performed at the bedside?->Yes [facility] 1935 Sex: [...] due to prior asbestos exposure. Signed: Theresa Cottereport Verified Date/Time: 12/28/2019 22:49:33 Reading Location: [facility] C013T Transitional Reading Room COMP. METABOLIC PANEL (87301)2019-09-02 11:55:00 Test Item Value Reference Range Interpretation Comments NA (test code = 139 mmol/L 135-145 4092085045) K (test code = 4.1 mmol/L 3.5-5 9317459798) CL (test code = 104 mmol/L 98-108 1580618474) CO2 TOTAL (test code = 29 mmol/L 23-31 8482048462) AGAP (test code = 2-16 7484396066) BUN (test code = 21 mg/dL 7-23 4619215179) GLUCOSE (test code = 99 mg/dL 70-110 4426313052) CREATININE (test code 0.86 mg/dL 0.6-1.25 = 3434867311) TOTAL BILI (test code 0.7 mg/dL 0.1-1.1 = 8962656738) CALCIUM (test code = 9.3 mg/dL 8.6-10.6 8958593357) T PROTEIN (test code = 7.2 g/dL 6.3-8.2 6203174239) ALBUMIN (test code = 4.2 g/dL 3.5-5 7749046872) ALK PHOS (test code = 75 U/L 34-122 2885774581) ALTv (test code = 28 U/L 5-50 1742-6) AST(SGOT) (test code = 33 U/L 13-40 9990146464) eGFR Calculation mL/min/1.73m2 (Non-) (test code = 4092803732) eGFR Calculation mL/min/1.73m2 () (test code = 7150499014) JETT (test code = JETT) Association of [...] or urine or abnormalities in imaging tests). [facility] 11:53:00 Test Item Value Reference Range Interpretation Comments APPEARANCE (test code = Clear Clear 1844119959) COLOR (test code = Yellow Yellow 8337268339) PH (test code = 4.8-8.0 6203296883) SP GRAVITY (test code = 1.003-1.030 3822782720) GLU U QUAL (test code = Normal Normal 4331562003) BLOOD (test code = 1+ Negative A 0805759004) KETONES (test code = Negative Negative 2341384980) PROTEIN (test code = Negative Negative 2887-8) UROBILIN (test code = Normal Normal 0036952499) BILIRUBIN (test code = Negative Negative 5443802268) NITRITE (test code = Negative Negative 3865131852) LEUK ROLAN (test code = 75/uL Negative A 0962650308) RBC/HPF (test code = See_Comment H [Autom ated message] 6547290249) The system [employer] generated this result transmitted ref erence range: 0 - 3 HP F. The reference range was not used to int erpret this result as normal/abnormal . WBC/HPF (test code = See_Comment H [Autom ated message] 9489599271) The system [employer] generated this result transmitted ref erence range: 0 - 5 HP F. The reference range was not used to int erpret this result as normal/abnormal . BACTERIA (test code = Few Negative A 9046437950) MUCOUS (test code = Slight Negative LPF A 9225879974) SQ EPITH (test code = <1 HPF 3671556495) TRANS EPI (test code = <1 See_Comment [Aut omated message] 2556995398) The system [employer] generated this result transmitted ref erence range: <=1 HPF. The reference range was not used to int erpret this result as normal/abnormal . NOE EPITH (test code = <1 See_Comment [Aut omated message] 5367269534) The system [employer] generated this result transmitted ref erence range: <=1 HPF. The reference range was not used to int erpret this result as normal/abnormal . Lab Interpretation (test Abnormal code = 98447-4) [facility] WITH [id number] 11:52:00 Test Item Value Reference Range Interpretation Comments WBC (test code = See_Comment [Automated message] 6690-2) The system [employer] generated this result transmitted ref erence range: 4.20 - 1 0.70 10*3/?L. The re ference range was not u sed to interpret this result as normal/abnor mal. RBC (test code = See_Comment [Automated message] 789-8) The system [employer] generated this result transmitted ref erence range: [...] RDW-SD (test code 41.1 fL 38.5-51.6 = 26638-7) RDW-CV (test code 12.1 % 12.1-15.4 = 788-0) PLT (test code = See_Comment [Automated message] 777-3) The system whic h generated this result transmitted ref erence range: 150 - 32 8 10*3/?L. The re ference range was not u sed to interpret this result as normal/abnor mal. MPV (test code = 10.8 fL 9.8-13 27093-4) NRBC/100 WBC (test See_Comment [Automat ed message] code = 2544412010) The syste m which generated this result transmitted ref erence range: 0.0 - 10 .0 /100 WBCs. The refer ence range was not u sed to interpret this result as normal/abnor mal. NRBC x10^3 (test <0.01 See_Comment [Automated message] code = 5170701845) The syste m which generated this result transmitted ref erence range: 10*3/?L. The reference range was not used to interpr et this result as normal/abnormal . GRAN MAT (NEUT) % 44.8 % (test code = 770-8) IMM GRAN % (test 0.40 % code = 9989301911) LYMPH % (test code 42.0 % = 736-9) MONO % (test code 6.9 % = 5905-5) EOS % (test code = 5.0 % 713-8) BASO % (test code 0.9 % = 706-2) GRAN MAT 3.14 10*3/uL 1.99-6.95 x10^3(ANC) (test code = 3930127205) IMM GRAN x10^3 0.03 10*3/uL 0-0.06 (test code = 9859155682) LYMPH x10^3 (test 2.94 10*3/uL 1.09-3.23 code = 731-0) MONO x10^3 (test 0.48 10*3/uL 0.36-1.02 code = 742-7) EOS x10^3 (test 0.35 10*3/uL 0.06-0.53 code = 711-2) BASO x10^3 (test 0.06 10*3/uL 0.01-0.09 code = 704-7) [facility] URINALYSIS, [id number] 17:34:00 Test Item Value Reference Range Interpretation [...] 3267) Lab Interpretation (test code Normal = 99011-4) [facility] URINALYSIS, [id number] 17:34:00 Test Item Value Reference Range Interpretation [...] 3267) Lab Interpretation (test code Normal = 78192-1) [facility] URINALYSIS, [id number] 17:09:00 Test Item Value Reference Range Interpretation [...] U APPEAR (test code = clear 3267) [facility], [id number] 17:09:00 Test Item Value Reference Range Interpretation [...] U APPEAR (test code = clear 3267) [facility]"
[2022-08-08 10:00] LABS: Absolute Lymphocytes (CBC) 3.3 K/uL (0.7-4.9); Hematocrit 38.6 % (39.6-49.0); Lymphocytes % 41.9 % (15.3-44.8); MCV 90.5 fL (80-100); MPV 8.5 fL (7.6-11.3); RBC Red Blood Cell Count 4.27 M/uL (4.33-5.43)
[2022-08-08 10:17] LABS: Potassium 3.4 mEq/L (3.5-5.1)
[2022-08-08 10:29] LABS: Specific Gravity 1.009 (1.005-1.030); Urine Bacteria <20 /HPF (<20); Urine Bilirubin NEGATIVE (Negative); Urine Blood 3+ (OVER) (Negative); Urine Clarity Clear (Clear); Urine Color Light-Yellow (Yellow); Urine Glucose NEGATIVE (Negative); Urine Mucus Slight /HPF (None Seen); Urine Protein TRACE (Negative); Urine RBC 21-50 /HPF (None Seen); Urine Urobilinogen Normal (Normal); Urine pH 5.5 (5.0-7.0)
--- NOTE | 2022-08-08 10:36 | ER ---
Nurse's Notes [facility] Name: Rusty Yarbrough Age: 87 yrs Sex: Male : 1935 Arrival Date: 08/08/2022 Time: 08:53 Bed 16 Private MD: Toya Ortega Diagnosis: Encounter for fitting and adjustment of urinary device;Mechanical complication of urinary (indwelling) catheter Presentation: 08/08 09:03 Chief complaint: Patient states: minimal drainage in urinary bag, states penile pain, vg1 since last night. Coronavirus screen: Vaccine status: Patient reports receiving the 2nd dose of the covid vaccine. Client denies travel out of the [place] in the last 14 days. Ebola Screen: Patient negative for fever greater than or equal to 101.5 degrees Fahrenheit, and additional compatible Ebola Virus Disease symptoms Patient denies exposure to infectious person. Patient denies travel to an Ebola-affected area in the 21 days before illness onset. Initial Sepsis Screen: Does the patient meet any 2 criteria? No. Patient's initial sepsis screen is negative. Does the patient have a suspected source of infection? No. Patient's initial sepsis screen is negative. Risk Assessment: Do you want to hurt yourself or someone else? Patient reports no desire to harm self or others. Onset of symptoms was August 07, 2022. 09:03 Method Of Arrival: Wheelchair vg1 09:03 Acuity: GAYLE 3 vg1 Triage Assessment: 09:05 General: Appears uncomfortable, Behavior is cooperative. Pain: Complains of pain in vg1 groin. : Reports inability to void. Historical: - Allergies: 09:05 Benadryl; vg1 09:05 Enalapril; vg1 - PMHx: 09:05 "heart valve replacement"; Aortic Stenosis; Ataxia; acute, resolved now; bleeding vg1 ulcers; CAD; Cerebrovascular accident; COPD; dyspnea; fatigue; Hyperlipidemia; Hypertension; Hypertensive disorder; Hypokalemia; melena; Myocardial infarction; syncope; Tachycardia; TIA; Vertigo; - Immunization history:: Client reports receiving the 2nd dose of the Covid vaccine. - Social history:: Smoking status: Patient/guardian denies using tobacco, but has a distant history of tobacco abuse. Screenin:06 Abuse screen: Denies threats or abuse. Denies injuries from another. Nutritional vg1 screening: No deficits noted. Tuberculosis screening: No symptoms or risk factors identified. 11:31 [facility] ED Fall Risk Assessment (Adult) History of falling in the last 3 months, kr3 including since admission No falls in past 3 months (0 pts). Assessment: 09:19 General: Appears in no apparent distress. uncomfortable, Behavior is calm, cooperative, kr3 appropriate for age. Pain: Complains of pain in pelvis. Neuro: No deficits noted. Cardiovascular: Patient's skin is warm and dry. Respiratory: Airway is patent Respiratory effort is even, unlabored, Respiratory pattern is regular, symmetrical. GI: No signs and/or symptoms were reported involving the gastrointestinal system. : Reports pain in suprapubic area. EENT: No signs and/or symptoms were reported regarding the EENT system. Derm: No signs and/or symptoms reported regarding the dermatologic system. Musculoskeletal: No signs and/or symptoms reported regarding the musculoskeletal system. 10:30 Reassessment: Patient appears in no apparent distress at this time. Patient is alert, kr3 oriented x 3, equal unlabored respirations, skin warm/dry/pink. Patient states feeling better. 11:30 Reassessment: Patient appears in no apparent distress at this time. Patient is alert, kr3 oriented x 3, equal unlabored respirations, skin warm/dry/pink. Patient states symptoms have improved. Vital Signs: 09:03 BP 136 / 72; Pulse 65; Resp 16; Temp 98.1(O); Pulse Ox 100% ; Weight 75.75 kg; vg1 09:57 BP 153 / 90; Pulse 75; Resp 18; Pulse Ox 96% on R/A; kr3 11:30 BP 140 / 82; Pulse 72; Resp 18; Pulse Ox 98% on R/A; kr3 ED Course: 08:55 Patient arrived in ED. mr 08:56 Toya Ortega is Private Physician. mr 08:56 Layla Hernandez FNP is [facility]. jh7 08:56 Luke Kessler MD is Attending Physician. jh7 09:05 Triage completed. vg1 09:05 Arm band placed on. vg1 09:08 Yulissa Fischer, HENRRY is Primary Nurse. kr3 09:35 Call light in reach. Side rails up X2. kr3 10:05 Inserted saline lock: 22 gauge in right antecubital area, using aseptic technique. kr3 Blood collected. 10:33 Bon Alexander MD is Referral Physician. 7 11:06 Ulrich cath inserted, using sterile technique, 20 Fr., by ne, balloon inflated, urine kr3 specimen collected. other replaced previous ulrich due to leaking, previous balloon inflated with 25 mL of fluid. 11:31 No provider procedures requiring assistance completed. IV discontinued, intact, kr3 bleeding controlled, No redness/swelling at site. Pressure dressing applied. Administered Medications: 11:02 Drug: Rocephin IV 1 grams Route: IV; Rate: 1 calculated rate; Site: right antecubital; kr3 11:32 Follow up: Response: No adverse reaction; IV Status: Completed infusion; IV Intake: [id number] Medication: 11:31 VIS not applicable for this client. kr3 Intake: 11:32 IV: 10ml; Total: 10ml. kr3 Outcome: 10:35 Discharge ordered by . [facility] 11:31 Discharged to home ambulatory. kr3 11:31 Condition: stable 11:31 Discharge instructions given to patient, family, Instructed on discharge instructions, follow up and referral plans. Demonstrated understanding of instructions, follow-up care. 11:31 Patient left the ED. kr3 Signatures: Yakelin Bobby Victoria, RN RN 1 Layla Hernandez FNP [employer]PUTY [employer] 7 Yulissa Fischer, RN RN kr3
--- NOTE | 2022-08-08 10:36 | EDPHYS ---
Physician Documentation [facility] Name: Rusty Yarbrough Age: 87 yrs Sex: Male : 1935 Arrival Date: 08/08/2022 Time: 08:53 Bed 16 Private MD: Toya Ortega ED Physician Luke Kessler HPI: 08/08 09:05 This 87 yrs old Male presents to ER via Wheelchair with complaints of Problem jh7 With Urinary Catheter, Urinary Problem. 09:05 Onset: The symptoms/episode began/occurred last night. Associated signs and symptoms: jh7 Pertinent positives: Urinary retention, penile pain, Pertinent negatives: fever. 87-year-old male presents with urinary catheter problem. He reports that for the last 2 to 3 days his catheter has not been draining as well and that it stopped draining last night. Also reports pain at the tip of the penis. Denies any fever.. Historical: - Allergies: 09:05 Benadryl; vg1 09:05 Enalapril; vg1 - PMHx: 09:05 "heart valve replacement"; Aortic Stenosis; Ataxia; acute, resolved now; bleeding vg1 ulcers; CAD; Cerebrovascular accident; COPD; dyspnea; fatigue; Hyperlipidemia; Hypertension; Hypertensive disorder; Hypokalemia; melena; Myocardial infarction; syncope; Tachycardia; TIA; Vertigo; - Immunization history:: Client reports receiving the 2nd dose of the Covid vaccine. - Social history:: Smoking status: Patient/guardian denies using tobacco, but has a distant history of tobacco abuse. ROS: 09:05 Constitutional: Negative for fever, chills, and weight loss, Eyes: Negative for injury, jh7 pain, redness, and discharge, Neck: Negative for injury, pain, and swelling, Cardiovascular: Negative for chest pain, palpitations, and edema, Respiratory: Negative for shortness of breath, cough, wheezing, and pleuritic chest pain, Abdomen/GI: Negative for abdominal pain, nausea, vomiting, diarrhea, and constipation, Back: Negative for injury and pain, MS/Extremity: Negative for injury and deformity, Skin: Negative for injury, rash, and discoloration, Neuro: Negative for headache, weakness, numbness, tingling, and seizure. 09:05 : Positive for small amounts, Retention, Negative for burning with urination. 09:05 All other systems are negative. Exam: 09:05 Constitutional: This is a well developed, well nourished patient who is awake, alert, jh7 and in no acute distress. Head/Face: Normocephalic, atraumatic. Eyes: Pupils equal round and reactive to light, extra-ocular motions intact. Lids and lashes normal. Conjunctiva and sclera are non-icteric and not injected. Cornea within normal limits. Periorbital areas with no swelling, redness, or edema. Neck: Trachea midline, no thyromegaly or masses palpated, and no cervical lymphadenopathy. Supple, full range of motion without nuchal rigidity, or vertebral point tenderness. No Meningismus. Cardiovascular: Regular rate and rhythm with a normal S1 and S2. No gallops, murmurs, or rubs. Normal PMI, no JVD. No pulse deficits. Respiratory: Lungs have equal breath sounds bilaterally, clear to auscultation and percussion. No rales, rhonchi or wheezes noted. No increased work of breathing, no retractions or nasal flaring. Abdomen/GI: Soft, non-tender, with normal bowel sounds. No distension or tympany. No guarding or rebound. No evidence of tenderness throughout. Back: No spinal tenderness. No costovertebral tenderness. Full range of motion. Skin: Warm, dry with normal turgor. Normal color with no rashes, no lesions, and no evidence of cellulitis. MS/ Extremity: Pulses equal, no cyanosis. Neurovascular intact. Full, normal range of motion. Neuro: Awake and alert, GCS 15, oriented to person, place, time, and situation. Motor strength 5/5 in all extremities. Sensory grossly intact. Vital Signs: 09:03 BP 136 / 72; Pulse 65; Resp 16; Temp 98.1(O); Pulse Ox 100% ; Weight 75.75 kg; vg1 09:57 BP 153 / 90; Pulse 75; Resp 18; Pulse Ox 96% on R/A; kr3 11:30 BP 140 / 82; Pulse 72; Resp 18; Pulse Ox 98% on R/A; kr3 Procedures: 09:15 Bladder irrigated via Tee with 50 ml normal saline returned yellow urine Patient jh7 tolerated well. MDM: 08:56 Patient medically screened. 7 09:15 ED course: Verified placement of Tee catheter via bedside ultrasound. Dr. Kessler at [facility] emergency room bedside. Able to irrigate Tee catheter ultrasound-guided with yellow urine return. Patient appeared to be in pain during the procedure but overall tolerated the procedure well. Discover that the Tee catheter balloon had 25 mL of normal saline in place, where it needed to be 10 mL. Suspected that this was the cause of obstruction/bladder spasms. We will check kidney function to ensure there is no EVETTE due to obstruction. We will likely discharge the patient to follow-up with urology as planned.. 10:40 Differential diagnosis: UTI, Bladder obstruction, urinary catheter malfunction, EVETTE. [facility] emergency [facility] Data reviewed: vital signs, nurses notes, lab test result(s). I considered the following discharge prescriptions or medication management in the emergency department Medications were administered in the Emergency Department. See MAR. Historians other than the Patient: Daughter/Son: son. Care significantly affected by the following chronic conditions: Hypertension, Congestive Heart Failure. Counseling: I had a detailed discussion with the patient and/or guardian regarding: the historical points, exam findings, and any diagnostic results supporting the discharge/admit diagnosis, the need for outpatient follow up, a urologist, to return to the emergency department if symptoms worsen or persist or if there are any questions or concerns that arise at home. Response to treatment: the patient's symptoms have resolved after treatment, the patient's pain is gone. 08/08 09:06 Order name: Urinalysis W/Microscopic; Complete Time: 10:[address] [facility] emergency room 08/08 09:35 Order name: CBC with Diff; Complete Time: 10:[address] [facility] emergency room 08/08 09:35 Order name: BMP; Complete Time: 10:[address] [facility] emergency room 08/08 10:32 Order name: Urine Culture [facility] 08/08 09:06 Order name: Bladder Scanner; Complete Time: 09:[address] [facility] emergency room 08/08 10:24 Order name: Tee Leg Bag; Complete Time: 11:[address] [facility] emergency [facility] Administered Medications: 11:02 Drug: Rocephin IV 1 grams Route: IV; Rate: 1 calculated rate; Site: right antecubital; kr3 11:32 Follow up: Response: No adverse reaction; IV Status: Completed infusion; IV Intake: [id number] Disposition Summary: 08/08/22 10:35 Discharge Ordered Location: Home [facility] emergency [facility] Problem: new [facility] Symptoms: have improved jh7 Condition: Stable jh7 Diagnosis - Encounter for fitting and adjustment of urinary device 7 - Mechanical complication of urinary (indwelling) catheter [facility] Followup: [facility] emergency [facility] - With: Bon Alexander MD - When: 2 - 3 days - Reason: Recheck today's complaints Discharge Instructions: - Discharge Summary Sheet jh7 - Indwelling Urinary Catheter Care, Adult jh7 - Indwelling Urinary Catheter Insertion jh7 - Indwelling Urinary Catheter Insertion, Care After [facility] Forms: - Medication Reconciliation Form [facility] - Thank You Letter [facility] Signatures: Dispatcher [employer] Rahel Llamas, RN RN vg1 Layla Hernandez, ENVIRONMENTAL SERVICES WORKER ENVIRONMENTAL SERVICES WORKER jh7 Yulissa Fischer RN RN kr3
[2022-08-08] MEDS ORDERED: CEFTRIAXONE 1000 MG/VIAL ONE (10:45)
[2022-08-08 11:58] VITALS: TEMP 98.1
[2022-08-08 12:01] VITALS: BP 140/82; O2SAT 98
== END 2022-08-08 11:31 | disposition home or self-care (01) ==
LOC: ER 08:53
DX: T83.098A Other mechanical complication of other urinary catheter, initial encounter (principal); Z46.6 Encounter for fitting and adjustment of urinary device
CPT/HCPCS: 96365; 87088; 85025; 81001; 87086; 80048; 36415; 87077; 87186; 51700; 51702; 99284; J0696

== ENCOUNTER 2022-08-24 16:29 | Emergency (ER) | payer MEDICARE ==
--- OUTSIDE RECORDS SUMMARY | 2022-08-24 16:40 | XMS REPORT | Continuity of Care Document ---
:1935 Author Organization [facility] t Address [address] [facility] [address] [place] [id number] Care Team Providers Name Role Phone Provider, Unknown Primary Care Physician Unavailable Shawn Perry Attending Clinician Unavailable ZOYA MIRANDA Attending Clinician Unavailable CECILIO MOLINA Attending Clinician Unavailable Carley GREEN Attending Clinician Unavailable Ade PACCarley Attending Clinician Doctor Unassigned, Orion Attending Clinician Unavailable Ruddy GAGE, Queenie Clifton Attending Clinician [phone] Kwadwo GAGE, Yusra Attending Clinician Miguelina GAGE, Oscar Attending Clinician Melita GAGE, David Attending Clinician DAVID HILL Attending Clinician Unavailable Juanita GAGE, Eduardo Sandhu Attending Clinician Kory PAC, Marquis Cee Attending Clinician Ajibade_O_AH Attending Clinician Unavailable Robbie Car MD Attending Clinician ROBBIE CAR Attending Clinician Unavailable Nurse, Adc Surgery Gu Attending Clinician Unavailable Chico Mccall DO Attending Clinician Gramm AIRCRA[employer] AVION[employer] TECHNICIANGloria Attending Clinician , Adc Surg Spec Procedure [...] Number Effective Date Expiration Date S musa [facility] PLUS [id number] CLASSIC/VALUE 00:00:00 AARP/MEDICARE [id number] 2015 COMPLETE 00:00:00 HUMANA MEDICARE ADV [id number] 2019 00:00:00 [employer] HEALTH [id number] 2021 (MEDICARE 00:00:00 REPLACEMENT HMO) [employer] HEALTH [id number] 2021 MEDICARE ADVANTAGE 00:00:00 [facility] [id number] OLAYINKA (MEDICARE 00:00:00 REPLACEMENT/ADVANTA GE - HMO) GOLD PLUS [id number] 2020 MEDICARE/HMO 00:00:00 AARP NADIA ADVANTAGE [id number] 2015 PPO-[facility] 00:00:00 MEDICARE PART A \\T\\ [id number] 2015 B - MEDICARE 00:00:00 Problems Condition [...] c 00 e 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 00:00: Practic block Block 00 e Cardiac Cardiac Problem Active [facility] arrhythmia Arrhythmia 1-04 [facility] 00:00: Practic 00 e Cerebrovas Cerebrovas Problem Active V ill[facility] cular cular 1-04 Family accident Accident 00:00: Practi c 00 e Asthma Asthma Problem Active [place] 1-04 Family 00:00: Practic 00 e 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 1-04 [facility] e lung e Lung 00:00: Practic disease Disease 00 e Benign Benign Problem Active [facility] prostatic Prostatic 1-04 Fami ly hyperplasi Hyperplasi 00:00: Pr actic a a 00 e History of History of Problem Active [facility] illage cerebrovas Cerebrovas 1-04 [facility] robin cular 00:00: Practic accident Accident 00 e Long-term Long-term Problem Active Hannah zoe current Current 1-04 Family use of Use of 00:00: Practic anticoagul Anticoagul 00 e ant ant Long-term Long-term Problem Active Hannah enriquez current Current 04 Family use of Use [...] Formattin ity of 00:00: g of this [place] note Medical might be Branch different from the original. 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 Prostate Prostate Problem Commo n cancer cancer [facility] Allergies, Adverse Reactions, Alerts Allergy Allergy Status Severity Reaction(s) Onset Inactive Treating Comm ents Source Name Type Date Date Clinician DIPHENHY Allergy Active 2019-[address] [facility]INE 0[facility]23 [facility] Medical 00 Center Diphenhy Propensi Active 2019-[address] dramine ty to 0-23 [facility] adverse 00:00: Medical reaction 00 Center s ENALAPRI Allergy Active Hives 2014- SLEH L 03-18 00:00: 00 Enalapri Drug Active Hives, 2014-[address] [facility] [facility] Allergy Itching 03-18 [facility] 00:[facility]: Medical 00 Center NO KNOWN Drug Active Univers ALLERGIE Class ity of [facility] Family History Family Member Diagnosis Comments Start Date Stop Date Source Natural father [facility] Natural father Asthma [facility] Natural father Stroke [facility] Natural mother Seizures [facility] Natural sister Diabetes [facility] Social History Social Habit Start Date Stop Date Quantity Comments Source History of Tobacco [facility] - Use [facility] History SDOH [facility] Alcohol Frequency [facility] Center History SDOH [facility] Alcohol Std Drinks [facility] History SDOH [facility] Alcohol Binge Medical [address] Sexual [facility] Exposure to 2021-08-22 2021-09-01 Not sure University SARS-CoV-2 (event) 00:00:00 17:20:00 [facility] Alcohol intake 2020-01-01 2020-01-01 [facility]er [facility]00 of alcohol [facility] (finding) Tobacco use and 2019-12-29 2019-12-[address] [facility] exposure 00:00:00 00:00:00 tobacco non-user Medical Center History of Social 2019-04-24 2019-04-[address] function 00:00:00 00:00:00 Hospital Alcohol Comment 2015-01-19 2015-01-[address] [facility] 00:00:00 00:00:00 [facility] Center Sex Assigned At [address] [facility] 00:00[facility]00 00:00:00 [facility] Center Smoking Status Start Date Stop Date Source Never Smoker [facility] Medical nter Ex-smoker 2019-12-29 00:00:00 2019-12-29 00:00:[address] [facility] Medical Alex Unknown if ever smoked Universit y [facility] Medications Ordered Filled Start Stop Current [...] Subcutaneo us, ONCE, 1 dose, On [facility] 09/01/21 at 2045, WINDY NaCl 0.9% 2021- No 500mL at 999 Univ ers (NS) bolus 09-02 mL/hr, 500 it y of infusion 00:45: 01:47 mL, IV [place] 500 mL 00 :00 Infusion, Medical ONCE, 1 Branch dose, On [facility] 09/01/21 at 1945, STAT magnesium No 2g 2 g, IV Univ ers sulfate in 09-02 Piggyback, it y of water 2 00:15: 00:53 Administer Bran as gram/50 mL 00 :00 over 60 Medica l (4 %) Minutes, Branch infusion 2 ONCE, 1 g dose, On [facility] 09/01/21 at 1915, Routine cephALEXin 2021- No [id number] 500mg Take 1 Univers (KEFLEX) 09-01 0709 capsule by ity of 500 mg 00:00: 04:59 mouth 3 [place] capsule 00 :00 (three) Medical times [place] daily for 10 days. aspirin 81 Yes 81mg QD Take [address] MG EC 04-08 by mouth [facility] tablet 12:45: daily. [address] atorvastati Yes 40mg QD Take [address] n (LIPITOR) 2 by mouth Luke s 40 MG 12:45: daily. Medical tablet [address] [place] [address] tamsulosin 0 Yes .4mg QD Take 0.4 [...] 2-02 by mouth [facility]ukes tablet 12:45: daily. [address] atorvastati 0 Yes 40mg QD Take [...] 2-02 by mouth [facility] tablet 12:45: daily. [address] atorvastati 0 Yes 40mg QD Take [address] n (LIPITOR) 2-02 by mouth Luke s 40 MG 12:45: daily. Medical tablet 42 Center tamsulosin 0 Yes .4mg QD Take 0.[address] (FLOMAX) 2-02 mg by [facility]ukes 0.4 mg Cp24 12:45: mouth Medic al 24 hr 42 daily. Center capsule HYDROcodone 0 Yes 1{tbl} Take [address] -acetaminop 2-02 tablet by Gilberto es hen (NORCO 12:45: mouth Medica l 5-325) 42 every 8 Center 5-325 mg (eight) per tablet hours as needed for Pain. aspirin 81 0 Yes 81mg QD Take [address] MG EC 2-02 by mouth [facility]ukes tablet 12:45: daily. [address] atorvastati Yes 40mg QD Take [address] n (LIPITOR) 2-02 by mouth Luke s 40 MG 12:45: daily. Medical tablet 42 Center tamsulosin 0 Yes .4mg QD Take 0.[address] (FLOMAX) 2-02 mg by Lukes 0.4 mg Cp24 12:45: mouth Medic al 24 hr 42 daily. Alex capsule HYDROcodone 0 Yes 1{tbl} Take [address] -acetaminop 2-02 tablet by Gilberto es hen (NORCO 12:45: mouth Medica l 5-325) 42 every 8 Center 5-325 mg (eight) per tablet hours as needed for Pain. warfarin 2021- No 6mg QD Take [address] (COUMADIN, 2- 02-02 by mouth Luke s JANTOVEN) 6 11:00: 00:00 daily. Med ical MG tablet 48 :00 Alex warfarin 2021-0 2021- No 5mg QD Take [address] (COUMADIN, 2 03-04 tablet (5 Gilberto es JANTOVEN) 5 00:00: 23:59 mg total) Medical MG tablet 00 :00 by mouth Center daily for 30 days. enoxaparin 2021- No 80mg Inject 0.[address] (LOVENOX) 04-07 mLs (80 mg Gilberto es 80 mg/0.8 00:00: 00:00 total) Medic al mL Syrg 00 :[facility] us[facility] every 12 (twelve) hours for 5 days. diclofenac 2021- No 75mg Q.5D Take [address] (VOLTAREN) 04-04 by mouth 2 Jasen kes 75 MG EC 04:49: 00:00 (two) Medical tablet 47 :00 times Center daily. diclofenac 2020-03 Yes [id number] 75mg Take 1 Univers 75 mg EC 1- 9109 tablet by ity of tablet 00:00: mouth 2 [place] (two) Medical times Branch daily with meals. diclofenac 2020-03 Yes [id number] 75mg Take 1 Univers 75 mg EC 1- 9109 tablet by ity of tablet 00:00: mouth 2 [place] (two) Medical times Branch daily with meals. diclofenac 2020-03 Yes [id number] 75mg Take 1 Univers 75 mg EC 1- 9109 tablet by ity of tablet 00:00: mouth 2 [place] (two) Medical times Branch daily with meals. diclofenac 2020-03 Yes [id number] 75mg Take 1 Univers 75 mg EC 1- 9109 tablet by ity of tablet 00:00: mouth 2 [place] (two) Medical times Branch daily with meals. diclofenac 2020- No [id number] 75mg Take 1 Univers 75 mg EC 8-10 09-10 9109 tablet by ity o f tablet 00:00: 04:59 mouth 2 [place] 00 :00 (two) Medical times Branch daily with meals for 30 days. diclofenac Yes [id number] 75mg Take 1 Univers 75 mg EC 7- 9109 tablet by ity of tablet 00:00: mouth 2 [place] (two) Medical times Branch daily with meals. diclofenac Yes [id number] 75mg Take 1 Univers 75 mg EC 7-08 9109 tablet by ity of tablet 00:00: mouth 2 [place] 00 (two) Medical times Branch daily with meals. diclofenac Yes [id number] 75mg Take 1 Univers 75 mg EC 7-08 9109 tablet by ity of tablet 00:00: mouth 2 [place] 00 (two) Medical times Branch daily with meals. diclofenac 2020-0 2021- No [id number] 75mg Take 1 Univers 75 mg EC -01-05 9109 tablet by ity o f tablet 00:00: 00:00 [facility] 00 : (two) Medical times Branch daily with meals. diclofenac 2020-0 Yes [id number] 75mg Take 1 Univers 75 mg EC 6-10 9109 tablet by ity of tablet 00:00: [facility] [place] (two) Medical times Branch daily with meals. diclofenac 2020-0 Yes [id number] 75mg Take 1 Univers 75 mg EC 6-10 9109 tablet by ity of tablet 00:00: [facility] [place] (two) Medical times Branch daily with meals. diclofenac 2020-0 Yes [id number] 75mg Take 1 Univers 75 mg EC 6-10 9109 tablet by ity of tablet 00:00: [facility] [place] (two) Medical times Branch daily with meals. diclofenac 2020-0 Yes [id number] 75mg Take 1 Univers 75 mg EC 6-10 9109 tablet by ity of tablet 00:00: [facility] [place] (two) Medical times Branch daily with meals. diclofenac 2020-0 Yes [id number] 75mg Take 1 Univers 75 mg EC 6-10 9109 tablet by ity of tablet 00:00: [facility] [place] (two) Medical times Branch daily with meals. diclofenac 2020-0 Yes [id number] 75mg Take 1 Univers 75 mg EC 6-10 9109 tablet by ity of tablet 00:00: [facility] [place] (two) Medical times Branch daily with meals. diclofenac 2020-0 Yes [id number] 75mg Take 1 Univers 75 mg EC 6-10 9109 tablet by ity of tablet 00:00: [facility] [place] (two) Medical times Branch daily with meals. diclofenac 1-0 Yes [id number] 75mg Take 1 Univers 75 mg EC 6-10 9109 tablet by ity of tablet 00:00: [facility] [place] (two) Medical times Branch daily with meals. diclofenac 2021-0 Yes 75mg Take 1 Unive rs 75 mg EC 5-05 tablet by ity of tablet 00:00: [facility] [place] (two) Medical times Branch daily with meals. [...] daily with meals. diclofenac 2021-0 2021- No [id number] 75mg Take 1 Univers 75 mg EC 3-22 06-26 9109 tablet by ity o f tablet 00:00: 04:59 mouth 2 [place] 00 :00 (two) Medical times Branch daily [...] daily with meals. diclofenac 2020- 2020- No [id number] 75mg Take 1 Univers 75 mg EC 1-23 12-24 9109 tablet by ity o f tablet 00:00: 05:59 mouth 2 [place] 00 :00 (two) Medical times Branch daily with meals for 30 days. diclofenac 2020-0 Yes [id number] 75mg Take 1 Univers 75 mg EC 7-14 9109 tablet by ity of tablet 00:00: mouth 2 (two) Medical times Branch daily with meals. diclofenac 2020-0 Yes [id number] 75mg Take 1 Univers 75 mg EC 7-14 9109 tablet by ity of tablet 00:00: mouth (two) Medical times Branch daily with meals. diclofenac 2020-0 Yes [id number] 75mg Take 1 Univers 75 mg EC 7-14 9109 tablet by ity of tablet 00:00: mouth (two) Medical times Branch daily with meals. diclofenac 2020-0 Yes [id number] 75mg Take 1 Univers 75 mg EC 7-14 9109 tablet by ity of tablet 00:00: mouth (two) Medical times Branch daily with meals. diclofenac 2020-0 Yes [id number] 75mg Take 1 Univers 75 mg EC 7-14 9109 tablet by ity of tablet 00:00: mouth (two) Medical times Branch daily with meals. diclofenac 2020-0 Yes [id number] 75mg Take 1 Univers 75 mg EC 7-14 9109 tablet by ity of tablet 00:00: mouth (two) Medical times Branch daily with meals. diclofenac 2020-0 Yes [id number] 75mg Take 1 Univers 75 mg EC 7-14 9109 tablet by ity of tablet 00:00: mouth [place] (two) Medical times Branch daily with meals. diclofenac 2020-0 Yes [id number] 75mg Take 1 Univers 75 mg EC 7-14 9109 tablet by ity of tablet 00:00: mouth [place] (two) Medical times Branch daily with meals. diclofenac 2020-0 Yes [id number] 75mg Take 1 Univers 75 mg EC 7-14 9109 tablet by ity of tablet 00:00: mouth [place] (two) Medical times Branch daily with meals. diclofenac 2020-0 Yes [id number] 75mg Take 1 Univers 75 mg EC 7-14 9109 tablet by ity of tablet 00:00: mouth (two) Medical times Branch daily with meals. diclofenac 2020-0 Yes [id number] 75mg Take 1 Univers 75 mg EC 7-14 9109 tablet by ity of tablet 00:00: mouth (two) Medical times Branch daily with meals. diclofenac 2020-0 Yes [id number] 75mg Take 1 Univers 75 mg EC 7-14 9109 tablet by ity of tablet 00:00: mouth [place] (two) Medical times Branch daily with meals. diclofenac 2020-0 Yes [id number] 75mg Take 1 Univers 75 mg EC 7-14 9109 tablet by ity of tablet 00:00: mouth (two) Medical times Branch daily with meals. diclofenac 2020-0 Yes [id number] 75mg Take 1 Univers 75 mg EC 7-14 9109 tablet by ity of tablet 00:00: mouth [place] (two) Medical times Branch daily with meals. diclofenac 2020-0 Yes [id number] 75mg Take 1 Univers 75 mg EC 7-14 9109 tablet by ity of tablet 00:00: mouth (two) Medical times Branch daily with meals. diclofenac 2020-0 Yes [id number] 75mg Take 1 Univers 75 mg EC 7-14 9109 tablet by ity of tablet 00:00: mouth [place] (two) Medical times Branch daily with meals. diclofenac 2020-0 Yes [id number] 75mg Take 1 Univers 75 mg EC 7-14 9109 tablet by ity of tablet 00:00: mouth [place] (two) Medical times Branch daily with meals. diclofenac 2020-0 Yes [id number] 75mg Take 1 Univers 75 mg EC 7-14 9109 tablet by ity of tablet 00:00: mouth [place] (two) Medical times Branch daily with meals. diclofenac 2020-0 Yes [id number] 75mg Take 1 Univers 75 mg EC 7-14 9109 tablet by ity of tablet 00:00: mouth [place] (two) Medical times Branch daily with meals. diclofenac 2020-0 Yes [id number] 75mg Take 1 Univers 75 mg EC 7-14 9109 tablet by ity of tablet 00:00: mouth [place] (two) Medical times Branch daily with meals. diclofenac 2020-0 Yes [id number] 75mg Take 1 Univers 75 mg EC 7-14 9109 tablet by ity of tablet 00:00: mouth [place] (two) Medical times Branch daily with meals. diclofenac 2020-0 Yes [id number] 75mg Take 1 Univers 75 mg EC 7-14 9109 tablet by ity of tablet 00:00: mouth [place] (two) Medical times Branch daily with meals. diclofenac 2020-0 Yes [id number] 75mg Take 1 Univers 75 mg EC 7-14 9109 tablet by ity of tablet 00:00: mouth [place] (two) Medical times Branch daily with meals. amoxicillin 2020-0 Yes [id number] 500mg Take 1 Univers 500 mg 6-28 capsule by ity of capsule 00:00: mouth (three) Medical times Branch daily. amoxicillin 2020-0 Yes [id number] 500mg Take 1 Univers 500 mg 6-28 capsule by ity of capsule 00:00: mouth (three) Medical times Branch daily. amoxicillin 2020-0 Yes [id number] 500mg Take 1 Univers 500 mg 6-28 capsule by ity of capsule 00:00: mouth (three) Medical times Branch daily. amoxicillin 2020-0 Yes [id number] 500mg Take 1 Univers 500 mg 6-28 capsule by ity of capsule 00:00: mouth (three) Medical times Branch daily. amoxicillin 2020-0 Yes [id number] 500mg Take 1 Univers 500 mg 6-28 capsule by ity of capsule 00:00: mouth (three) Medical times Branch daily. amoxicillin 2020-0 Yes [id number] 500mg Take 1 Univers 500 mg 6-28 capsule by ity of capsule 00:00: mouth (three) Medical times Branch daily. amoxicillin 2020-0 Yes [id number] 500mg Take 1 Univers 500 mg 6-28 capsule by ity of capsule 00:00: mouth (three) Medical times Branch daily. amoxicillin 2020-0 Yes [id number] 500mg Take 1 Univers 500 mg 6-28 capsule by ity of capsule 00:00: mouth (three) Medical times Branch daily. amoxicillin 2020-0 Yes [id number] 500mg Take 1 Univers 500 mg 6-28 capsule by ity of capsule 00:00: mouth (three) Medical times Branch daily. amoxicillin 2020-0 Yes [id number] 500mg Take 1 Univers 500 mg 6-28 capsule by ity of capsule 00:00: mouth (three) Medical times Branch daily. amoxicillin 2020-0 Yes [id number] 500mg Take 1 Univers 500 mg 6-28 capsule by ity of capsule 00:00: mouth (three) Medical times Branch daily. amoxicillin 2020-0 Yes [id number] 500mg Take 1 Univers 500 mg 6-28 capsule by ity of capsule 00:00: mouth (three) Medical times Branch daily. amoxicillin 2020-0 Yes [id number] 500mg Take 1 Univers 500 mg 6-28 capsule by ity of capsule 00:00: mouth 3 () Medical times Branch daily. amoxicillin 2020-0 Yes [id number] 500mg Take 1 Univers 500 mg 6-28 capsule by ity of capsule 00:00: mouth 3 (three) Medical times Branch daily. amoxicillin 2020-0 Yes [id number] 500mg Take 1 Univers 500 mg 6-28 capsule by ity of capsule 00:00: mouth 3 () Medical times Branch daily. amoxicillin 2020-0 Yes [id number] 500mg Take 1 Univers 500 mg 6-28 capsule by ity of capsule 00:00: mouth () Medical times Branch daily. amoxicillin 2020-0 Yes [id number] 500mg Take 1 Univers 500 mg 6-28 capsule by ity of capsule 00:00: mouth () Medical times Branch daily. amoxicillin 2020-0 Yes [id number] 500mg Take 1 Univers 500 mg 6-28 capsule by ity of capsule 00:00: mouth [place] () Medical times Branch daily. amoxicillin 2020-0 Yes [id number] 500mg Take 1 Univers 500 mg 6-28 capsule by ity of capsule 00:00: mouth [place] () Medical times Branch daily. amoxicillin 2020-0 Yes [id number] 500mg Take 1 Univers 500 mg 6-28 capsule by ity of capsule 00:00: mouth [place] () Medical times Branch daily. amoxicillin 2020-0 Yes [id number] 500mg Take 1 Univers 500 mg 6-28 capsule by ity of capsule 00:00: mouth [place] () Medical times Branch daily. amoxicillin 2020-0 Yes [id number] 500mg Take 1 Univers 500 mg 6-28 capsule by ity of capsule 00:00: mouth () Medical times Branch daily. amoxicillin 2020-0 Yes [id number] 500mg Take 1 Univers 500 mg 6-28 capsule by ity of capsule 00:00: mouth 3 ([facility]) Medical times Branch daily. amoxicillin 2020-0 Yes [id number] 500mg Take 1 Univers 500 mg 6-28 capsule by ity of capsule 00:00: mouth 3 [place] (three) Medical times Branch daily. diclofenac 2020-0 [...] tablet by ity of tablet 00:00: mouth [place] (two) Medical times Branch daily with meals. diclofenac 2020-0 Yes 75mg Take 1 Unive rs 75 mg EC 6-26 tablet by ity of tablet 00:00: mouth [place] (two) Medical times Branch daily with meals. diclofenac 2020-0 Yes 75mg Take 1 Unive rs 75 mg EC 6-26 tablet by ity of tablet 00:00: mouth [place] (two) Medical times Branch daily with meals. diclofenac 2020-0 Yes 75mg Take 1 Unive rs 75 mg EC 6-26 tablet by ity of tablet 00:00: mouth [place] (two) Medical times Branch daily with meals. diclofenac 2020-0 Yes 75mg Take 1 Unive rs 75 mg EC 6-26 tablet by ity of tablet 00:00: mouth [place] (two) Medical times Branch daily with meals. diclofenac 2020-0 Yes 75mg Take 1 Unive rs 75 mg EC 6-26 tablet by ity of tablet 00:00: mouth [place] (two) Medical times Branch daily with meals. diclofenac 2020-0 Yes 75mg Take 1 Unive rs 75 mg EC 6-26 tablet by ity of tablet 00:00: mouth [place] (two) Medical times Branch daily with meals. diclofenac 2020-0 Yes 75mg Take 1 Unive rs 75 mg EC 6-26 tablet by ity of tablet 00:00: mouth [place] (two) Medical times Branch daily with meals. diclofenac 2020-0 Yes 75mg Take 1 Unive rs 75 mg EC 6-26 tablet by ity of tablet 00:00: mouth [place] (two) Medical times Branch daily with meals. diclofenac 2020-0 Yes 75mg Take 1 Unive rs 75 mg EC 6-26 tablet by ity of tablet 00:00: mouth [place] (two) Medical times Branch daily with meals. diclofenac 2020-0 Yes 75mg Take 1 Unive rs 75 mg EC 6-26 tablet by ity of tablet 00:00: mouth [place] (two) Medical times Branch daily with meals. diclofenac 2020-0 Yes 75mg Take 1 Unive rs 75 mg EC 6-26 tablet by ity of tablet 00:00: mouth [place] (two) Medical times Branch daily with meals. [...] daily with meals. mirabegron 2020-0 2020- No [id number] 25mg Take 1 Univers 25 mg 6-05 07-06 tablet by ity of tablet 00:00: 04:59 mouth [place] 00 :00 daily for Medical 30 days. Branch mirabegron 2020-0 2020- No [id number] 25mg Take 1 Univers 25 mg 6-05 07-06 tablet by ity of tablet 00:00: 04:59 mouth [place] 00 :00 daily for Medical 30 days. Branch mirabegron 2020-0 2020- No [id number] 25mg Take 1 Univers 25 mg 6-05 07-06 tablet by ity of tablet 00:00: 04:59 mouth [place] 00 :00 daily for Medical 30 days. Branch mirabegron 2020-0 2020- No [id number] 25mg Take 1 Univers 25 mg 6-05 07-06 tablet by ity of tablet 00:00: 04:59 mouth [place] 00 :00 daily for Medical 30 days. Branch mirabegron 2020-0 2020- No [id number] 25mg Take 1 Univers 25 mg 6-05 07-06 tablet by ity of tablet 00:00: 04:59 mouth [place] 00 :00 daily for Medical 30 days. Branch mirabegron 2020-0 2020- No [id number] 25mg Take 1 Univers 25 mg 6-05 [...] tablet by ity of tablet 00:00: mouth [place] (two) Medical times Branch daily with meals. diclofenac 2020-0 Yes 75mg Take 1 Unive rs 75 mg EC 4-13 tablet by ity of tablet 00:00: mouth [place] (two) Medical times Branch daily with meals. diclofenac 2020-0 Yes 75mg Take 1 Un[facility] rs 75 mg EC 4-13 tablet by ity of tablet 00:00: mouth [place] (two) Medical times Branch daily with meals. diclofenac 2020-0 Yes 75mg Take 1 [facility] rs 75 mg EC 4-13 tablet by ity of tablet 00:00: mouth [place] (two) Medical times Branch daily with meals. diclofenac 2020-0 Yes 75mg Take 1 [facility] rs 75 mg EC 4-13 tablet by ity of tablet 00:00: mouth [place] (two) Medical times Branch daily with meals. diclofenac 2020-0 Yes 75mg Take 1 [facility] rs 75 mg EC 4-13 tablet by ity of tablet 00:00: mouth [place] (two) Medical times Branch daily with meals. diclofenac 2020-0 Yes 75mg Take 1 [facility] rs 75 mg EC 4-13 tablet by ity of tablet 00:00: mouth [place] (two) Medical times Branch daily with meals. diclofenac 2020-0 Yes 75mg Take 1 [facility] rs 75 mg EC 4-13 tablet by ity of tablet 00:00: mouth [place] (two) Medical times Branch daily with meals. diclofenac 2020-0 Yes 75mg Take 1 [facility] rs 75 mg EC 4-13 tablet by ity of tablet 00:00: mouth [place] (two) Medical times Branch daily with meals. diclofenac 2020-0 Yes 75mg Take 1 [facility] rs 75 mg EC 4-13 tablet by ity of tablet 00:00: mouth [address] [place] [address] (two) Medical times Branch daily with meals. diclofenac 2020-0 Yes 75mg Take 1 [facility] rs 75 mg EC 4-13 tablet by ity of tablet 00:00: mouth [place] (two) Medical times Branch daily with meals. diclofenac 2020-0 2021- No 75mg Take 1 [facility] ers 75 mg EC 4-13 07-08 tablet by ity o f tablet 00:00: 00:[address] [place] [address] 00 :00 (two) Medical times Branch daily [...] tablet by ity of tablet 00:00: mouth [place] (two) Medical times Branch daily with meals. diclofenac 2020-0 Yes 75mg Take 1 [facility] rs 75 mg EC 3-17 tablet by ity of tablet 00:00: mouth [place] (two) Medical times Branch daily with meals. [...] tablet by ity of tablet 00:00: mouth [place] (two) Medical times Branch daily with meals. [...] by ity of tablet 00:00: mouth 2 [place] (two) Medical times Branch daily with meals. diclofenac 2020-0 Yes 75mg Take 1 [facility] rs 75 mg EC 3-17 tablet by ity of tablet 00:00: mouth 2 [place] 00 (two) Medical times Branch daily with meals. diclofenac 2020-0 Yes 75mg Take 1 [facility] rs 75 mg EC 3-17 tablet by ity of tablet 00:00: mouth 2 [place] 00 (two) Medical times Branch daily with meals. diclofenac 2020-0 Yes 75mg Take 1 [facility] rs 75 mg EC 3-17 tablet by ity of tablet 00:00: mouth 2 [place] 00 (two) Medical times Branch daily with meals. diclofenac 2020-0 Yes 75mg Take 1 [facility] rs 75 mg EC 3-17 tablet by ity of tablet 00:00: mouth 2 [place] (two) Medical times Branch daily with meals. diclofenac 2020-0 Yes 75mg Take 1 [facility] rs 75 mg EC 3-17 tablet by ity of tablet 00:00: mouth 2 [place] (two) Medical times Branch daily with meals. diclofenac 2020-0 2020- No 75mg Take 1 Univ ers 75 mg EC 3-17 07-14 tablet by ity o f tablet 00:00: 00:00 mouth 2 [place] 00 :00 (two) Medical times Branch daily with meals. gentamicin 2020-0 2020- No 80mg Univer s injection 05-04 ity of 80 mg 19:00: 17:48 [place] 00 :00 Medical Branch gentamicin 2019-0 2020- No 80mg 80 mg, IV U nivers injection 05-04 Piggyback, ity of 80 mg 19:00: 17:48 ONCE, 1 [place] 00 :00 dose, Fri Medical 05/04/19 at [...] of 80 mg 19:00: 17:48 ONCE, 1 [place] 00 :00 dose, Fri Medical 05/04/19 at Branch 1300, WINDY
Re ason for Anti-Infec tive: Surgical Prophylaxi s
Surgi ezekiel Prophylaxi s: Genitourin michelle
Dur ation of therapy: within 24 hours of surgery cephALEXin 2020-0 2020- No [id number] 500mg Take 2 [facility] 250 mg -01 06- capsules ity of capsule 00:00: 05:59 by mouth [place] 00 :00 every 12 Medical (twelve) Branch hours for 3 days. cephALEXin 2020-0 2020- No [id number] 500mg Take 2 [facility] 250 mg 2-28 - capsules ity of capsule 00:00: 05:59 by mouth [place] 00 :00 every 12 Medical (twelve) Branch hours for 3 days. atorvastati 2020-0 Yes 20mg Take 20 mg Univers n 20 mg 2-20 by mouth ity of tablet 00:00: daily. [place] [facility] Branch metoprolol 2020-0 Yes 25mg Take 25 mg U nivers tartrate 25 2-20 by mouth 2 it y of mg tablet 00:00: (two) [place] 00 times Medical daily. Branch atorvastati 2020-0 Yes 20mg Take 20 mg Univers n 20 mg 2-20 by mouth ity of tablet 00:00: daily. [place] [facility] Branch metoprolol 2020-0 Yes 25mg Take 25 mg U nivers tartrate 25 2-20 by mouth 2 it y of mg tablet 00:00: (two) [place] 00 times Medical daily. Branch atorvastati 2020-0 Yes 20mg Take 20 mg [facility] n 20 mg 2-20 by mouth ity of tablet 00:00: daily. [place] [facility] Branch metoprolol 2020-0 Yes 25mg Take 25 mg U nivers tartrate 25 2-20 by mouth 2 it y of mg tablet 00:00: (two) [place] 00 times Medical daily. Branch atorvastati 2020-0 Yes 20mg Take 20 mg [facility] n 20 mg 2-20 by mouth ity of tablet 00:00: daily. [place] [address] Medical Branch metoprolol 2020-0 Yes 25mg Take 25 mg U nivers tartrate 25 2-20 by mouth 2 it y of mg tablet 00:00: (two) [place] 00 times Medical daily. Branch atorvastati 2020-0 Yes 20mg Take 20 mg [facility] n 20 mg 2-20 by mouth ity of tablet 00:00: daily. Medical Branch metoprolol 2020-0 Yes 25mg Take 25 mg U nivers tartrate 25 2-20 by mouth 2 it y of mg tablet 00:00: (two) [place] 00 times Medical daily. Branch atorvastati 2020-0 Yes 20mg Take 20 mg [facility] n 20 mg 2-20 by mouth ity of tablet 00:00: daily. Medical Branch metoprolol 2020-0 Yes 25mg Take 25 mg U nivers tartrate 25 2-20 by mouth 2 it y of mg tablet 00:00: (two) [place] 00 times Medical daily. Branch atorvastati 2020-0 Yes 20mg Take 20 mg [facility] n 20 mg 2-20 by mouth ity of tablet 00:00: daily. [place] [facility] Branch metoprolol 2020-0 Yes 25mg Take 25 mg U nivers tartrate 25 2-20 by mouth 2 it y of mg tablet 00:00: (two) [place] 00 times Medical daily. Branch atorvastati 2020-0 Yes 20mg Take 20 mg [facility] n 20 mg 2-20 by mouth ity of tablet 00:00: daily. [place] [facility] Branch metoprolol 2020-0 Yes 25mg Take 25 mg U nivers tartrate 25 2-20 by mouth 2 it y of mg tablet 00:00: (two) [place] 00 times Medical daily. Branch atorvastati 2020-0 Yes 20mg Take 20 mg [facility] n 20 mg 2-20 by mouth ity of tablet 00:00: daily. Medical Branch metoprolol 2020-0 Yes 25mg Take 25 mg U nivers tartrate 25 2-20 by mouth 2 it y of mg tablet 00:00: (two) [place] 00 times Medical daily. Branch atorvastati 2020-0 Yes 20mg Take 20 mg [facility] n 20 mg 2-20 by mouth ity of tablet 00:00: daily. [place] [facility] Branch metoprolol 2020-0 Yes 25mg Take 25 mg U nivers tartrate 25 2-20 by mouth 2 it y of mg tablet 00:00: (two) [place] 00 times Medical daily. Branch atorvastati 2020-0 Yes 20mg Take 20 mg [facility] n 20 mg 2-20 by mouth ity of tablet 00:00: daily. Medical Branch metoprolol 2020-0 Yes 25mg Take 25 mg U nivers tartrate 25 2-20 by mouth 2 it y of mg tablet 00:00: (two) [place] 00 times Medical daily. Branch atorvastati 2020-0 Yes 20mg Take 20 mg [facility] n 20 mg 2-20 by mouth ity of tablet 00:00: daily. Medical Branch metoprolol 2020-0 Yes 25mg Take 25 mg U nivers tartrate 25 2-20 by mouth 2 it y of mg tablet 00:00: (two) [place] 00 times Medical daily. Branch atorvastati 2020-0 Yes 20mg Take 20 mg [facility] n 20 mg 2-20 by mouth ity of tablet 00:00: daily. Medical Branch metoprolol 2020-0 Yes 25mg Take 25 mg U nivers tartrate 25 2-20 by mouth 2 it y of mg tablet 00:00: (two) [place] Medical daily. Branch atorvastati 2020-0 Yes 20mg Take 20 mg Univers n 20 mg 2-20 by mouth ity of tablet 00:00: daily. Medical Branch metoprolol 2020-0 Yes 25mg Take 25 mg U nivers tartrate 25 2-20 by mouth 2 it y of mg tablet 00:00: (two) [place] Medical daily. Branch atorvastati 2020-0 Yes 20mg [...] it y of mg tablet 00:00: (two) [place] 00 times Medical daily. Branch atorvastati 2020-0 Yes 20mg Take 20 mg [facility] n 20 mg 2-20 by mouth ity of tablet 00:00: daily. Medical Branch metoprolol 2020-0 Yes 25mg Take 25 mg U nivers tartrate 25 2-20 by mouth 2 it y of mg tablet 00:00: (two) [place] 00 times Medical daily. Branch atorvastati 2020-0 [...] it y of mg tablet 00:00: (two) [place] times Medical daily. Branch atorvastati 2020-0 Yes 20mg Take 20 mg [facility] n 20 mg 2-20 by mouth ity of tablet 00:00: daily. [place] [facility] Branch metoprolol 2020-0 Yes 25mg Take 25 mg U nivers tartrate 25 2-20 by mouth 2 it y of mg tablet 00:00: (two) [place] 00 times Medical daily. Branch atorvastati 2020-0 Yes 20mg Take 20 mg Univers n 20 mg 2-20 by mouth ity of tablet 00:00: daily. Medical Branch metoprolol 2020-0 Yes 25mg Take 25 mg U nivers tartrate 25 2-20 by mouth 2 it y of mg tablet 00:00: (two) [place] 00 times Medical daily. Branch atorvastati 2020-0 Yes 20mg Take 20 mg [facility] n 20 mg 2-20 by mouth ity of tablet 00:00: daily. Medical Branch metoprolol 2020-0 Yes 25mg Take 25 mg U nivers tartrate 25 2-20 by mouth 2 it y of mg tablet 00:00: (two) [place] 00 times Medical daily. Branch atorvastati 2020-0 Yes 20mg Take 20 mg [facility] n 20 mg 2-20 by mouth ity of tablet 00:00: daily. [place] [facility] Branch metoprolol 2020-0 Yes 25mg Take 25 mg U nivers tartrate 25 2-20 by mouth 2 it y of mg tablet 00:00: (two) [place] 00 times Medical daily. Branch atorvastati 2020-0 Yes 20mg Take 20 mg [facility] n 20 mg 2-20 by mouth ity of tablet 00:00: daily. Medical Branch metoprolol 2020-0 Yes 25mg Take 25 mg U nivers tartrate 25 2-20 by mouth 2 it y of mg tablet 00:00: (two) [place] 00 times Medical daily. Branch atorvastati 2020-0 Yes 20mg Take 20 mg Univers n 20 mg 2-20 by mouth ity of tablet 00:00: daily. Medical Branch metoprolol 2020-0 Yes 25mg Take 25 mg U nivers tartrate 25 2-20 by mouth 2 it y of mg tablet 00:00: (two) [place] 00 times Medical daily. Branch atorvastati 2020-0 Yes 20mg Take 20 mg Univers n 20 mg 2-20 by mouth ity of tablet 00:00: daily. Medical Branch metoprolol 2020-0 Yes 25mg Take 25 mg U nivers tartrate 25 2-20 by mouth 2 it y of mg tablet 00:00: (two) [place] 00 times Medical daily. Branch atorvastati 2020-0 Yes 20mg Take 20 mg Univers n 20 mg 2-20 by mouth ity of tablet 00:00: daily. Medical Branch metoprolol 2020-0 Yes 25mg Take 25 mg U nivers tartrate 25 2-20 by mouth 2 it y of mg tablet 00:00: (two) [place] 00 times Medical daily. Branch atorvastati 2020-0 Yes 20mg Take 20 mg Univers n 20 mg 2-20 by mouth ity of tablet 00:00: daily. Medical Branch metoprolol 2020-0 Yes 25mg Take 25 mg U nivers tartrate 25 2-20 by mouth 2 it y of mg tablet 00:00: (two) [place] 00 times Medical daily. Branch atorvastati 2020-0 Yes 20mg Take 20 mg Univers n 20 mg 2-20 by mouth ity of tablet 00:00: daily. Medical Branch metoprolol 2020-0 Yes 25mg Take 25 mg U nivers tartrate 25 2-20 by mouth 2 it y of mg tablet 00:00: (two) [place] 00 times Medical daily. Branch atorvastati 2020-0 Yes 20mg Take 20 mg Univers n 20 mg 2-20 by mouth ity of tablet 00:00: daily. Medical Branch metoprolol 2020-0 Yes 25mg Take 25 mg U nivers tartrate 25 2-20 by mouth 2 it y of mg tablet 00:00: (two) [place] 00 times Medical daily. Branch atorvastati 2020-0 Yes 20mg Take 20 mg Univers n 20 mg 2-20 by mouth ity of tablet 00:00: daily. Medical Branch metoprolol 2020-0 Yes 25mg Take 25 mg U nivers tartrate 25 2-20 by mouth 2 it y of mg tablet 00:00: (two) [place] 00 times Medical daily. Branch atorvastati 2020-0 Yes 20mg Take 20 mg Univers n 20 mg 2-20 by mouth ity of tablet 00:00: daily. Medical Branch metoprolol 2020-0 Yes 25mg Take 25 mg U nivers tartrate 25 2-20 by mouth 2 it y of mg tablet 00:00: (two) [place] Medical daily. Branch atorvastati 2020-0 Yes 20mg Take 20 mg Univers n 20 mg 2-20 by mouth ity of tablet 00:00: daily. Medical Branch metoprolol 2020-0 Yes 25mg Take 25 mg U nivers tartrate 25 2-20 by mouth 2 it y of mg tablet 00:00: (two) [place] Medical daily. Branch atorvastati 2020-0 Yes 20mg [...] it y of mg tablet 00:00: (two) [place] 00 times Medical daily. Branch atorvastati 2020-0 Yes 20mg Take 20 mg Univers n 20 mg 2-20 by mouth ity of tablet 00:00: daily. Medical Branch metoprolol 2020-0 Yes 25mg Take 25 mg U nivers tartrate 25 2-20 by mouth 2 it y of mg tablet 00:00: (two) [place] 00 times Medical daily. Branch atorvastati 2020-0 Yes 20mg Take 20 mg Univers n 20 mg 2-20 by mouth ity of tablet 00:00: daily. Medical Branch metoprolol 2020-0 Yes 25mg Take 25 mg U nivers tartrate 25 2-20 by mouth 2 it y of mg tablet 00:00: (two) [place] times Medical daily. Branch atorvastati 2020-0 Yes 20mg Take 20 mg Univers n 20 mg 2-20 by mouth ity of tablet 00:00: daily. Medical Branch metoprolol 2020-0 Yes 25mg Take 25 mg U nivers tartrate 25 2-20 by mouth 2 it y of mg tablet 00:00: (two) [place] times Medical daily. Branch atorvastati 2020-0 Yes 20mg Take 20 mg Univers n 20 mg 2-20 by mouth ity of tablet 00:00: daily. Medical Branch metoprolol 2020-0 Yes 25mg Take 25 mg U nivers tartrate 25 2-20 by mouth 2 it y of mg tablet 00:00: (two) [place] 00 times Medical daily. Branch atorvastati 2020-0 Yes 20mg Take 20 mg Univers n 20 mg 2-20 by mouth ity of tablet 00:00: daily. Medical Branch metoprolol 2020-0 Yes 25mg Take 25 mg U nivers tartrate 25 2-20 by mouth 2 it y of mg tablet 00:00: (two) [place] times Medical daily. Branch atorvastati 2020-0 Yes 20mg Take 20 mg Univers n 20 mg 2-20 by mouth ity of tablet 00:00: daily. Medical Branch metoprolol 2020-0 Yes 25mg Take 25 mg U nivers tartrate 25 2-20 by mouth 2 it y of mg tablet 00:00: (two) [place] times Medical daily. Branch atorvastati 2020-0 Yes 20mg Take 20 mg Univers n 20 mg 2-20 by mouth ity of tablet 00:00: daily. Medical Branch metoprolol 2020-0 Yes 25mg Take 25 mg U nivers tartrate 25 2-20 by mouth 2 it y of mg tablet 00:00: (two) [place] 00 times Medical daily. Branch atorvastati 2020-0 Yes 20mg Take 20 mg Univers n 20 mg 2-20 by mouth ity of tablet 00:00: daily. [place] [address] Medical Branch metoprolol 2020-0 Yes 25mg Take 25 mg U nivers tartrate 25 2-20 by mouth 2 it y of mg tablet 00:00: (two) [place] [address] times Medical daily. Branch tamsulosin 2020-0 Yes [...] mouth ity of hr capsule 17:20: daily. [place] [address] Medical Branch om 2020-0 Yes Take by Univers 3/E/linol/a 2-14 mouth. ity of la/oleic/gl 17:20: [place] a/lip 21 Medical (OMEGA Branch 3-6-9 ORAL) tamsulosin 2020-0 Yes Take by Univ ers 0.4 mg 24 2-14 mouth ity of hr capsule 17:20: daily. [place] [address] Medical Branch om 2020-0 Yes Take by Univers 3/E/linol/a 2-14 mouth. ity of la/oleic/gl 17:20: [place] a/lip 21 Medical (OMEGA Branch 3-6-9 ORAL) tamsulosin 2020-0 Yes Take by Univ ers 0.4 mg 24 2-14 mouth ity of hr capsule 17:20: daily. [place] [address] Medical Branch om 2020-0 Yes Take by Univers 3/E/linol/a 2-14 mouth. ity of la/oleic/gl 17:20: [place] a/lip 21 Medical (OMEGA Branch 3-6-9 ORAL) tamsulosin 2020-0 Yes Take by Univ ers 0.4 mg 24 2-14 mouth ity of hr capsule 17:20: daily. [place] [address] Medical Branch om 2020-0 Yes Take by Univers 3/E/linol/a 2-14 mouth. ity of la/oleic/gl 17:20: [place] a/lip 21 Medical (OMEGA Branch 3-6-9 ORAL) tamsulosin 2020-0 Yes Take by Univ ers 0.4 mg 24 2-14 mouth ity of hr capsule 17:20: daily. [place] [address] Medical Branch om 2020-0 Yes Take by Univers 3/E/linol/a 2-14 mouth. ity of la/oleic/gl 17:20: [place] a/lip 21 Medical (OMEGA Branch 3-6-9 ORAL) tamsulosin 2020-0 Yes Take by Univ ers 0.4 mg 24 2-14 mouth ity of hr capsule 17:20: daily. [place] [address] Medical Branch om 2020-0 Yes Take by Univers 3/E/linol/a 2-14 mouth. ity of la/oleic/gl 17:20: [place] a/lip 21 Medical (OMEGA Branch 3-6-9 ORAL) tamsulosin 2020-0 Yes Take by Univ ers 0.4 mg 24 2-14 mouth ity of hr capsule 17:20: daily. [place] [address] Medical Branch om 2020-0 Yes Take by Univers 3/E/linol/a 2-14 mouth. ity of la/oleic/gl 17:20: [place] a/lip 21 Medical (OMEGA Branch 3-6-9 ORAL) tamsulosin 2020-0 Yes Take by Univ ers 0.4 mg 24 2-14 mouth ity of hr capsule 17:20: daily. [place] [address] Medical Branch om 2020-0 Yes Take by Univers 3/E/linol/a 2-14 mouth. ity of la/oleic/gl 17:20: [place] a/lip 21 Medical (OMEGA Branch 3-6-9 ORAL) tamsulosin 2020-0 Yes Take by Univ ers 0.4 mg 24 2-14 mouth ity of hr capsule 17:20: daily. [place] [address] Medical Branch om 2020-0 Yes Take by Univers 3/E/linol/a 2-14 mouth. ity of la/oleic/gl 17:20: [place] a/lip 21 Medical (OMEGA Branch 3-6-9 ORAL) tamsulosin 2020-0 Yes Take by Univ ers 0.4 mg 24 2-14 mouth ity of hr capsule 17:20: daily. [place] [address] Medical Branch om 2020-0 Yes Take by Univers 3/E/linol/a 2-14 mouth. ity of la/oleic/gl 17:20: [place] a/lip 21 Medical (OMEGA Branch 3-6-9 ORAL) tamsulosin 2020-0 Yes Take by Univ ers 0.4 mg 24 2-14 mouth ity of hr capsule 17:20: daily. [place] [address] Medical Branch om 2020-0 Yes Take by Univers 3/E/linol/a 2-14 mouth. ity of la/oleic/gl 17:20: [place] a/lip 21 Medical (OMEGA Branch 3-6-9 ORAL) tamsulosin 2020-0 Yes Take by Univ ers 0.4 mg 24 2-14 mouth ity of hr capsule 17:20: daily. [place] [address] Medical Branch om 2020-0 Yes Take by Univers 3/E/linol/a 2-14 mouth. ity of la/oleic/gl 17:20: [place] a/lip 21 Medical (OMEGA Branch 3-6-9 ORAL) tamsulosin 2020-0 Yes Take by Univ ers 0.4 mg 24 2-14 mouth ity of hr capsule 17:20: daily. [place] [address] Medical Branch om 2020-0 Yes Take by Univers 3/E/linol/a 2-14 mouth. ity of la/oleic/gl 17:20: [place] a/lip 21 Medical (OMEGA Branch 3-6-9 ORAL) tamsulosin 2020-0 Yes Take by Univ ers 0.4 mg 24 2-14 mouth ity of hr capsule 17:20: daily. [place] [address] Medical Branch om 2020-0 Yes Take by Univers 3/E/linol/a 2-14 mouth. ity of la/oleic/gl 17:20: [place] a/lip 21 Medical (OMEGA Branch 3-6-9 ORAL) tamsulosin 2020-0 Yes Take by Univ ers 0.4 mg 24 2-14 mouth ity of hr capsule 17:20: daily. [place] [address] Medical Branch om 2020-0 Yes Take by Univers 3/E/linol/a 2-14 mouth. ity of la/oleic/gl 17:20: [place] a/lip 21 Medical (OMEGA Branch 3-6-9 ORAL) tamsulosin 2020-0 Yes Take by Univ ers 0.4 mg 24 2-14 mouth ity of hr capsule 17:20: daily. [place] [address] Medical Branch om 2020-0 Yes Take by Univers 3/E/linol/a 2-14 mouth. ity of la/oleic/gl 17:20: [place] a/lip 21 Medical (OMEGA Branch 3-6-9 ORAL) tamsulosin 2020-0 Yes Take by Univ ers 0.4 mg 24 2-14 mouth ity of hr capsule 17:20: daily. [place] [address] Medical Branch om 2020-0 Yes Take by Univers 3/E/linol/a 2-14 mouth. ity of la/oleic/gl 17:20: [place] a/lip 21 Medical (OMEGA Branch 3-6-9 ORAL) tamsulosin 2020-0 Yes Take by Univ ers 0.4 mg 24 2-14 mouth ity of hr capsule 17:20: daily. [place] [address] Medical Branch om 2020-0 Yes Take by Univers 3/E/linol/a 2-14 mouth. ity of la/oleic/gl 17:20: [place] a/lip 21 Medical (OMEGA Branch 3-6-9 ORAL) tamsulosin 2019-0 Yes Take by Univ ers 0.4 mg 24 2-14 mouth ity of hr capsule 17:20: daily. [place] [address] Medical Branch om 2020-0 Yes Take by Univers 3/E/linol/a 2-14 mouth. ity of la/oleic/gl 17:20: [place] a/lip 21 Medical (OMEGA Branch 3-6-9 ORAL) tamsulosin 2020-0 Yes Take by Univ ers 0.4 mg 24 2-14 mouth ity of hr capsule 17:20: daily. [place] [address] Medical Branch om 2020-0 Yes Take by Univers 3/E/linol/a 2-14 mouth. ity of la/oleic/gl 17:20: [place] a/lip 21 Medical (OMEGA Branch 3-6-9 ORAL) tamsulosin 2020-0 Yes Take by Univ ers 0.4 mg 24 2-14 mouth ity of hr capsule 17:20: daily. [place] [address] Medical Branch om 2020-0 Yes Take by Univers 3/E/linol/a 2-14 mouth. ity of la/oleic/gl 17:20: [place] a/lip 21 Medical (OMEGA Branch 3-6-9 ORAL) tamsulosin 2020-0 Yes Take by Univ ers 0.4 mg 24 2-14 mouth ity of hr capsule 17:20: daily. [place] [address] Medical Branch om 2020-0 Yes Take by Univers 3/E/linol/a 2-14 mouth. ity of la/oleic/gl 17:20: [place] a/lip 21 Medical (OMEGA Branch 3-6-9 ORAL) tamsulosin 2020-0 Yes Take by Univ ers 0.4 mg 24 2-14 mouth ity of hr capsule 17:20: daily. [place] [address] Medical Branch om 2020-0 Yes Take by Univers 3/E/linol/a 2-14 mouth. ity of la/oleic/gl 17:20: [place] a/lip 21 Medical (OMEGA Branch 3-6-9 ORAL) tamsulosin 2020-0 Yes Take by Univ ers 0.4 mg 24 2-14 mouth ity of hr capsule 17:20: daily. [place] [address] Medical Branch om 2020-0 Yes Take by Univers 3/E/linol/a 2-14 mouth. ity of la/oleic/gl 17:20: [place] a/lip 21 Medical (OMEGA Branch 3-6-9 ORAL) tamsulosin 2020-0 Yes Take by Univ ers 0.4 mg 24 2-14 mouth ity of hr capsule 17:20: daily. [place] [address] Medical Branch om 2020-0 Yes Take by Univers 3/E/linol/a 2-14 mouth. ity of la/oleic/gl 17:20: [place] a/lip 21 Medical (OMEGA Branch 3-6-9 ORAL) tamsulosin 2020-0 Yes Take by Univ ers 0.4 mg 24 2-14 mouth ity of hr capsule 17:20: daily. [place] [address] Medical Branch om 2020-0 Yes Take by Univers 3/E/linol/a 2-14 mouth. ity of la/oleic/gl 17:20: [place] a/lip 21 Medical (OMEGA Branch 3-6-9 ORAL) tamsulosin 2020-0 Yes Take by Univ ers 0.4 mg 24 2-14 mouth ity of hr capsule 17:20: daily. [place] [address] Medical Branch om 2020-0 Yes Take by Univers 3/E/linol/a 2-14 mouth. ity of la/oleic/gl 17:20: [place] a/lip 21 Medical (OMEGA Branch 3-6-9 ORAL) tamsulosin 2020-0 Yes Take by Univ ers 0.4 mg 24 2-14 mouth ity of hr capsule 17:20: daily. [place] [address] Medical Branch om 2020-0 Yes Take by Univers 3/E/linol/a 2-14 mouth. ity of la/oleic/gl 17:20: [place] a/lip 21 Medical (OMEGA Branch 3-6-9 ORAL) tamsulosin 2020-0 Yes Take by Univ ers 0.4 mg 24 2-14 mouth ity of hr capsule 17:20: daily. [place] [address] Medical Branch om 2020-0 Yes Take by Univers 3/E/linol/a 2-14 mouth. ity of la/oleic/gl 17:20: [place] a/lip 21 Medical (OMEGA Branch 3-6-9 ORAL) tamsulosin 2020-0 Yes Take by Univ ers 0.4 mg 24 2-14 mouth ity of hr capsule 17:20: daily. [place] [address] Medical Branch tamsulosin 2020-0 Yes Take by Univ ers 0.4 mg 24 2-14 mouth ity of hr capsule 17:20: daily. [place] [address] Medical Branch om 2020-0 Yes Take by Univers 3/E/linol/a 2-14 mouth. ity of la/oleic/gl 17:20: [place] a/lip 21 Medical (OMEGA Branch 3-6-9 ORAL) om 2020-0 Yes Take by Univers 3/E/linol/a 2-14 mouth. ity of la/oleic/gl 17:20: [place] a/lip 21 Medical (OMEGA Branch 3-6-9 ORAL) tamsulosin 2020-0 Yes Take by Univ ers 0.4 mg 24 2-14 mouth ity of hr capsule 17:20: daily. [place] [address] Medical Branch om 2020-0 Yes Take by Univers 3/E/linol/a 2-14 mouth. ity of la/oleic/gl 17:20: [place] a/lip 21 Medical (OMEGA Branch 3-6-9 ORAL) tamsulosin 2020-0 Yes Take by Univ ers 0.4 mg 24 2-14 mouth ity of hr capsule 17:20: daily. [place] [address] Medical Branch om 2020-0 Yes Take by Univers 3/E/linol/a 2-14 mouth. ity of la/oleic/gl 17:20: [place] a/lip 21 Medical (OMEGA Branch 3-6-9 ORAL) tamsulosin 2020-0 Yes Take by Univ ers 0.4 mg 24 2-14 mouth ity of hr capsule 17:20: daily. [place] [address] Medical Branch om 2020-0 Yes Take by Univers 3/E/linol/a 2-14 mouth. ity of la/oleic/gl 17:20: [place] a/lip 21 Medical (OMEGA Branch 3-6-9 ORAL) tamsulosin 2020-0 Yes Take by Univ ers 0.4 mg 24 2-14 mouth ity of hr capsule 17:20: daily. [place] [address] Medical Branch om 2020-0 Yes Take by Univers 3/E/linol/a 2-14 mouth. ity of la/oleic/gl 17:20: [place] a/lip 21 Medical (OMEGA Branch 3-6-9 ORAL) tamsulosin 2020-0 Yes Take by Univ ers 0.4 mg 24 2-14 mouth ity of hr capsule 17:20: daily. [place] [address] Medical Branch om 2020-0 Yes Take by Univers 3/E/linol/a 2-14 mouth. ity of la/oleic/gl 17:20: [place] a/lip 21 Medical (OMEGA Branch 3-6-9 ORAL) tamsulosin 2020-0 Yes Take by Univ ers 0.4 mg 24 2-14 mouth ity of hr capsule 17:20: daily. [place] [address] Medical Branch om 2020-0 Yes Take by Univers 3/E/linol/a 2-14 mouth. ity of la/oleic/gl 17:20: [place] a/lip 21 Medical (OMEGA Branch 3-6-9 ORAL) tamsulosin 2020-0 Yes Take by Univ ers 0.4 mg 24 2-14 mouth ity of hr capsule 17:20: daily. [place] [address] Medical Branch om 2020-0 Yes Take by Univers 3/E/linol/a 2-14 mouth. ity of la/oleic/gl 17:20: [place] a/lip 21 Medical (OMEGA Branch 3-6-9 ORAL) tamsulosin 2020-0 Yes Take by Univ ers 0.4 mg 24 2-14 mouth ity of hr capsule 17:20: daily. [place] [address] Medical Branch om 2020-0 Yes Take by Univers 3/E/linol/a 2-14 mouth. ity of la/oleic/gl 17:20: [place] a/lip 21 Medical (OMEGA Branch 3-6-9 ORAL) tamsulosin 2020-0 Yes Take by Univ ers 0.4 mg 24 2-14 mouth ity of hr capsule 17:20: daily. [place] [address] Medical Branch om 2020-0 Yes Take by Univers 3/E/linol/a 2-14 mouth. ity of la/oleic/gl 17:20: [place] a/lip 21 Medical (OMEGA Branch 3-6-9 ORAL) tamsulosin 2020-0 Yes Take by Univ ers 0.4 mg 24 2-14 mouth ity of hr capsule 17:20: daily. [place] [address] [facility] om 2020-0 Yes Take by Univers 3/E/linol/a 2-14 mouth. ity of la/oleic/gl 17:20: [place] a/lip 21 Medical (OME[facility] Branch 3-6-9 ORAL) tamsulosin 2020-0 Yes Take by Univ ers 0.4 mg 24 2-14 mouth ity of hr capsule 17:20: daily. [place] [address] [facility] om 2020-0 Yes Take by Univers 3/E/linol/a 2-14 mouth. ity of la/oleic/gl 17:20: [place] a/lip [facility] (OMEGA Branch 3-6-9 ORAL) tamsulosin 2020-0 Yes Take by Univ ers 0.4 mg 24 2-14 mouth ity of hr capsule 11:20: daily. [place] [address] [facility] om 2020-0 Yes Take by Univers 3/E/linol/a 2-14 mouth. ity of la/oleic/gl 11:20: [place] a/lip 21 Medical (OMEGA Branch 3-6-9 ORAL) tamsulosin 2020-0 Yes Take by Univ ers 0.4 mg 24 2-14 mouth ity of hr capsule 11:20: daily. [place] [address] [facility] om 2020-0 Yes Take by Univers 3/E/linol/a 2-14 mouth. ity of la/oleic/gl 11:20: [place] a/lip 21 Medical (OMEGA Branch 3-6-9 ORAL) tamsulosin 2020-0 Yes Take by Univ ers 0.4 mg 24 2-14 mouth ity of hr capsule 11:20: daily. [place] [address] [facility] om 2020-0 Yes Take by Univers 3/E/linol/a 2-14 mouth. ity of la/oleic/gl 11:20: [place] a/lip [facility] Medical (OMEGA Branch 3-6-9 ORAL) tamsulosin Yes Take by Univ ers 0.4 mg 24 2-14 mouth ity of hr capsule 11:20: daily. [place] [facility] om 2019-0 Yes Take by Univers 3/E/linol/a 2-14 mouth. ity of la/oleic/gl 11:20: [place] a/[place] [facility] Medical (OME[facility] Branch 3-6-9 ORAL) diclofenac 2018-03- No [id number] 75mg Take 1 Univers 75 mg EC 2-03 05- 9109 tablet by ity o f tablet 00:00: 05:59 mouth 2 [place] 00 :00 (two) Medical times Branch daily with meals for 60 days. diclofenac 2018-03- No [id number] 75mg Take 1 Univers 75 mg EC 2- 9109 tablet by ity o f tablet 00:00: 05:59 mouth 2 [place] 00 :00 ([facility]) Medical times Branch daily with meals for 60 days. diclofenac 2018-03- No [id number] 75mg Take 1 Univers 75 mg EC 2- 9109 tablet by ity o f tablet 00:00: 05:59 mouth 2 [place] 00 :00 ([facility]) Medical times Branch daily with meals for 60 days. diclofenac 2018-03- No [id number] 75mg Take 1 Univers 75 mg EC 2- 9109 tablet by ity o f tablet 00:00: 05:59 mouth 2 [place] 00 :00 (two) Medical times Branch daily with meals for 60 days. diclofenac Yes [id number] 75mg Take 1 Univers 75 mg EC 8-28 9109 tablet by ity of tablet 00:00: mouth 2 [place] 00 ([facility]) Medical times Branch daily with meals. diclofenac Yes [id number] 75mg Take 1 Univers 75 mg EC 8-02 9109 tablet by ity of tablet 00:00: mouth 2 [place] 00 ([facility]) Medical times Branch daily with meals. diclofenac Yes [id number] 75mg Take 1 Univers 75 mg EC 8-02 9109 tablet by ity of tablet 00:00: mouth 2 [place] 00 ([facility]) Medical times Branch daily with meals. diclofenac 2018- 2019- No [id number] 75mg Take 1 Univers 75 mg EC [...] hours as needed. atorvastati atorvastati No atorvastat [facility] n 20 mg n 20 mg in 20 mg Famil y tablet TAKE tablet TAKE tablet Practic 1 TABLET BY 1 TABLET BY TAKE 1 e MOUTH ONCE MOUTH ONCE TABLET BY DAILY DAILY MOUTH ONCE DAILY diclofenac diclofenac No diclofenac [facility] sodium 75 sodium 75 sodium 75 Family [...] route. hydrocodone hydrocodone No 1 Q4H hydrocodon [facility] 10 10 e 10 Family mg-acetamin mg-acetamin mg-acetami Practic ophen 325 ophen 325 nophen 325 e mg tablet mg tablet mg tablet Take 1 Take 1 Take 1 tablet tablet tablet every 4 every 4 every 4 hours by hours by hours by oral route. oral route. oral route. [facility]one [facility] e 5 Family mg-acetamin mg-acetamin mg-acetami Practic ophen 325 ophen 325 nophen 325 e mg tablet mg tablet mg tablet TAKE 1 TAKE 1 TAKE 1 TABLET BY TABLET BY TABLET BY MOUTH THREE MOUTH THREE MOUTH TIMES DAILY TIMES DAILY THREE TIMES DAILY metoprolol metoprolol No metoprolol [facility] tartrate 25 tartrate 25 tartrate Family mg tablet mg tablet 25 mg Prac tic TAKE 1 TAKE 1 tablet e TABLET BY TABLET BY TAKE 1 MOUTH TWICE MOUTH TWICE TABLET BY DAILY DAILY MOUTH TWICE DAILY Myrbetriq Myrbetriq No Myrbetriq [facility] 25 mg 25 mg 25 mg Family [...] ONE LY INTO NOSTRIL. NOSTRIL. ONE CALL . CALL 911. NOSTRIL. JULY REPEAT JULY REPEAT CALL 91. X 1. X 1. JULY REPEAT X [...] DISPENSING DISPENSING DISPENSING prednisone prednisone No prednisone [facility] 5 mg tablet 5 mg tablet 5 [...] DISPENSING DISPENSING DISPENSING tamsulosin tamsulosin No tamsulosin [facility] 0.4 mg 0.4 mg 0.4 mg Family [...] MG MG No known No Univers medications [facility] No known No Univers medications [facility] Ditropan XL Ditropan XL 2022- No Ditropan [...] Td 2018-02-03 Completed [facility] 10:21:00 [facility] Td Td 2018-02-03 Completed [facility] 10:21:00 [facility] Vital Signs Vital Name Observation Time Observation Value Comments Source height 2022-03-24 10:15:00 67.75 [in_i] [facility] weight 2022-03-24 10:15:00 174 [lb_av] [facility] temperature 2022-03-24 10:15:00 97.3 [degF] [facility] bmi 2022-03-24 10:15:00 26.65 kg/m2 [facility] oximetry 2022-03-24 10:15:00 98 % [facility] respiratory rate 2022-03-24 10:15:00 18 /min Comm on [facility] blood pressure 2022-03-24 10:15:00 132 mm[Hg] Common [facility] systolic [facility] blood pressure 2022-03-24 10:15:00 68 mm[Hg] [facility] diastolic [facility] oximetry 2021-12-17 09:00:00 96 % [facility] respiratory rate 2021-12-17 09:00:00 16 /min Comm on [facility] blood pressure 2021-12-17 09:00:00 185 mm[Hg] [facility] systolic [facility] blood pressure 2021-12-17 09:00:00 75 mm[Hg] [facility] diastolic [facility] height 2021-12-17 09:00:00 67.75 [in_i] [facility] weight 2021-12-17 09:00:00 167 [lb_av] [facility] temperature 2021-12-17 09:00:00 97.6 [degF] [facility] bmi 2021-12-17 09:00:00 25.58 kg/m2 [facility] Systolic blood 2021-09-02 02:00:00 165 mm[Hg] Univer sity of [facility] Diastolic blood 2021-09-02 02:00:00 74 mm[Hg] Unive rsity of [facility] Heart rate 2021-09-02 02:00:00 61 /[facility] 2021-09-02 02:00:00 20 /min [facility] Oxygen saturation in 2021-09-02 02:00:00 98 /min [facility] Arterial blood by [facility] Pulse oximetry Branch Body temperature 2021-09-01 22:19:00 36.28 Natalie [facility] Body weight 2021-09-01 22:19:00 81.647 kg [facility] BMI 2021-09-01 22:19:00 25.83 kg/m2 [facility] HEIGHT 2021-04-06 12:08:00 180.3 cm WEIGHT 2021-04-06 12:08:00 79.379 kg HEIGHT 2021-04-06 12:08:00 180.3 cm WEIGHT 2021-04-06 12:08:00 79.379 kg BP Diastolic 2020-03-10 00:00:00 68 mm[Hg] [facility] Height 2020-03-10 00:00:00 68 [in_i] [facility] BMI (Body Mass 2020-03-10 00:00:00 27.4 kg/m2 [facility] e Family Index) Practice BP Systolic 2020-03-10 00:00:00 126 mm[Hg] [facility] Body Weight 2020-03-10 00:00:00 180 [lb_av] [facility] Practice WEIGHT 2020-01-03 04:20:00 81.194 kg [...] 19:40:00 150 mm[Hg] Univer sity of pressure [place] [facility] Diastolic blood 2019-11-07 19:40:00 74 mm[Hg] Unive rsity of pressure [place] [facility] Heart rate 2019-11-07 19:40:00 76 /min Universi ty of [place] [facility] Body temperature 2019-11-07 19:40:00 36.44 Natalie Univ ersity of [place] [facility] Respiratory rate 2019-11-07 19:40:00 18 /min Univ ersity of [place] [facility] Body weight 2019-11-07 19:40:00 81.647 kg Universi ty [facility] [place] [facility] BMI 2019-11-07 19:40:00 25.83 kg/m2 [facility]i [facility] [place] [facility] Systolic blood 2019-11-07 19:40:00 150 mm[Hg] Univer sity of pressure [place] [facility] Diastolic blood 2019-11-07 19:40:00 74 mm[Hg] Unive rsity of pressure [place] [facility] Heart rate 2019-11-07 19:40:00 76 /min Universi ty of [place] [facility] Body temperature 2019-11-07 19:40:00 36.44 Natalie Univ ersity of [place] [facility] Respiratory rate 2019-11-07 19:40:00 18 /min Univ ersity of [place] [facility] Body weight 2019-11-07 19:40:00 81.647 kg [facility]i ty [facility] [place] [facility] BMI 2019-11-07 19:40:00 25.83 kg/m2 [facility] [place] [facility] Respiratory rate 2019-09-24 20:24:00 18 /min Univ ersity of [place] [facility] Body weight 2019-09-24 20:24:00 82.373 kg [facility] [place] [facility] BMI 2019-09-24 20:24:00 26.06 kg/m2 [facility] [place] [facility] Systolic blood 2019-09-24 20:24:00 155 mm[Hg] Univer sity of pressure [place] [facility] Diastolic blood 2019-09-24 20:24:00 76 mm[Hg] Unive rsity of pressure [place] [facility] Heart rate 2019-09-24 20:24:00 63 /min Universi ty [facility] [place] [facility] Body temperature 2019-09-24 20:24:00 36.11 Natalie Univ ersity [facility] [place] [facility] Respiratory rate 2019-09-24 20:24:00 18 /min Univ ersity of [place] [facility] Body weight 2019-09-24 20:24:00 82.373 kg Universi ty of [facility] [place] [facility] BMI 2019-09-24 20:24:00 26.06 kg/m2 Universi ty of [facility] [place] [facility] Systolic blood 2019-09-24 20:24:00 155 mm[Hg] Univer sity of pressure [place] [facility] Diastolic blood 2019-09-24 20:24:00 76 mm[Hg] Unive rsity of pressure [place] [facility] Heart rate 2019-09-24 20:24:00 63 /min Universi ty of [facility] [place] [facility] Body temperature 2019-09-24 20:24:00 36.11 Natalie Univ ersity of [facility] [place] [facility] Systolic blood 2019-09-21 20:41:00 149 mm[Hg] Univer sity of pressure [place] [facility] Diastolic blood 2019-09-21 20:41:00 79 mm[Hg] Unive rsity of pressure [place] [facility] Heart rate 2019-09-21 20:41:00 64 /min Universi ty [facility] [place] [facility] Body temperature 2019-09-21 20:41:00 35.78 Natalie Univ ersity [facility] [place] [facility] Respiratory rate 2019-09-21 20:41:00 18 /min Univ ersity of [place] [facility] Body weight 2019-09-21 20:41:00 81.829 kg Universi ty of [facility] [place] [facility] BMI 2019-09-21 20:41:00 25.88 kg/m2 Universi ty of [facility] [place] [facility] Systolic blood 2019-09-02 11:05:00 188 mm[Hg] Univer sity of pressure [place] [facility] Diastolic blood 2019-09-02 11:05:00 85 mm[Hg] Unive rsity of pressure [place] [facility] Heart rate 2019-09-02 11:05:00 84 /min Universi ty [facility] [place] [facility] Body temperature 2019-09-02 11:05:00 36.89 Natalie Univ ersity [facility] [place] [facility] Respiratory rate 2019-09-02 11:05:00 16 /min Univ ersity of [facility] [place] [facility] Body height 2019-09-02 11:05:00 177.8 cm Universi ty of [facility] [place] [facility] Body weight 2019-09-02 11:05:00 79.379 kg Universi ty of [place] [facility] BMI 2019-09-02 11:05:00 25.11 kg/m2 Universi ty of [place] [facility] Oxygen saturation in 2019-09-02 11:05:00 99 /min University of Arterial blood by [facility] Pulse oximetry Branch Body temperature 2019-08-10 20:51:00 36.61 Natalie Univ ersity of [place] [facility] Respiratory rate 2019-08-10 20:51:00 22 /min Univ ersity of [place] [facility] Body weight 2019-08-10 20:51:00 80.797 kg [facility]i ty [facility] [place] [facility] BMI 2019-08-10 20:51:00 27.08 kg/m2 [facility]i ty [facility] [place] [facility] Oxygen saturation in 2019-08-10 20:51:00 96 /min University of Arterial blood by [facility] Pulse oximetry Branch Systolic blood 2019-07-09 15:45:00 131 mm[Hg] Univer sity of pressure [place] [facility] Diastolic blood 2019-07-09 15:45:00 69 mm[Hg] Unive rsity of pressure [place] [facility] Heart rate 2019-07-09 15:45:00 49 /min Universi ty [facility] [place] [facility] Body temperature 2019-07-09 15:45:00 37 Natalie [facility] ers[facility] [place] [facility] Respiratory rate 2019-07-09 15:45:00 20 /min Univ ersity [facility] [place] [facility] Body height 2019-07-09 15:45:00 172.7 cm [facility] [place] [facility] Body weight 2019-07-09 15:45:00 82.101 kg [facility] [place] [facility] BMI 2019-07-09 15:45:00 27.52 kg/m2 [facility] [place] [facility] Oxygen saturation in 2019-07-09 15:45:00 98 /min University of Arterial blood by [facility] Pulse oximetry Branch Systolic blood 2019-05-24 18:10:00 132 mm[Hg] Univer sity of pressure [place] [facility] Diastolic blood 2019-05-24 18:10:00 61 mm[Hg] Unive rsity of pressure [place] [facility] Heart rate 2019-05-24 18:10:00 50 /min Universi ty [facility] [place] [facility] Body temperature 2019-05-24 18:10:00 36.56 Natalie [facility] ersity [facility] [place] [facility] Respiratory rate 2019-05-24 18:10:00 18 /min Univ ersity [facility] [place] [facility] Body weight 2019-05-24 18:10:00 82.101 kg [facility]i ty [facility] [place] [facility] BMI 2019-05-24 18:10:00 27.52 kg/m2 [facility]i [facility] [place] [facility] Body temperature 2019-05-04 17:26:00 36.83 Natalie Univ ersity [facility] [place] [facility] Respiratory rate 2019-05-04 17:26:00 20 /min Univ ersity of [place] [facility] Body height 2019-05-04 17:26:00 172.7 cm Universi ty [facility] [place] [facility] Body weight 2019-05-04 17:26:00 79.379 kg [facility]i [facility] [place] [facility] BMI 2019-05-04 17:26:00 26.61 kg/m2 [facility] [place] [facility] Oxygen saturation in 2019-05-04 17:26:00 98 /min University of Arterial blood by [place] [employer] [facility] Pulse oximetry Branch Systolic blood 2019-05-04 17:26:00 139 mm[Hg] Univer sity of pressure [place] [facility] Diastolic blood 2019-05-04 17:26:00 67 mm[Hg] Unive rsity of pressure [place] [facility] Heart rate 2019-05-04 17:26:00 80 /min Universi ty [facility] [place] [facility] Systolic blood 2019-04-20 17:14:00 135 mm[Hg] Univer sity of pressure [place] [facility] Diastolic blood 2019-04-20 17:14:00 80 mm[Hg] Unive rsity of pressure [place] [facility] Heart rate 2019-04-20 17:14:00 80 /min [facility]i ty [facility] [place] [facility] Body temperature 2019-04-20 17:14:00 36.67 Natalie [facility] [place] [facility] Respiratory rate 2019-04-20 17:11:00 20 /min Univ ers[facility] [place] [facility] Body height 2019-04-20 17:11:00 172.7 cm [facility] [place] [facility] Body weight 2019-04-20 17:11:00 77.565 kg [facility] [place] [facility] BMI 2019-04-20 17:11:00 26.00 kg/m2 [facility] [place] [facility] Oxygen saturation in 2019-04-20 17:11:00 98 /min University of Arterial blood by [place] [employer] [facility] Pulse oximetry Branch Systolic blood 2018-10-06 13:34:00 127 mm[Hg] Univer sity [facility] Diastolic blood 2018-10-06 13:34:00 72 [facility]Hg[facility] 2018-10-06 13:34:00 175.3 cm [facility] Body weight 2018-10-06 13:34:00 81.647 kg [facility] BMI 2018-10-06 13:34:00 26.58 kg/m2 [facility] Heart rate 2021-04-08 11:20:00 64 /min [facility] Respiratory rate 2021-04-08 11:20:00 18 /min [facility] Oxygen saturation in 2021-04-08 11:20:00 97 /min [facility] Arterial blood by Medical Ce nter Pulse oximetry Systolic blood 2021-04-08 07:00:00 142 mm[Hg] [facility] Diastolic blood 2021-04-08 07:00:00 67 mm[Hg] [facility] Body temperature 2021-04-08 07:00:00 36.56 Natalie [facility] Body height 2021-04-06 12:08:00 180.3 cm [facility] Body weight 2021-04-06 12:08:00 79.379 kg [facility] BMI 2021-04-06 12:08:00 24.41 kg/m2 [facility] Procedures Procedure Date / Time Performing Clinician Source Performed EKG-12 LEAD 2021-09-02 02:42:[address] [facility] MAGNESIUM 2021-09-01 23:35:[address] [facility] TROPONIN I 2021-09-01 23:35:[address] [facility] COMP. METABOLIC PANEL 2021-09-01 23:35:00 Carley Green [facility] ([id number]) [facility] CBC WITH DIFF 2021-09-01 23:35:[address] [facility] PROTHROMBIN TIME / INR 2021-09-01 23:35:00 Carley Green [facility] ACTIVATED PARTIAL 2021-09-01 23:35:00 Carley Green [facility] THRMPLAS VIOLETTA [facility] URINALYSIS 2021-09-01 23:35:00 Carley Green [place] [facility] N-TERMINAL PRO-BNP 2021-09-01 23:35:00 Carley Green [facility] XR CHEST 1 VW 2021-09-01 23:27:00 Carley Green [place] [facility] NOTICE OF PRIVACY 2021-09-01 22:21:51 Doctor Unassigned, No [facility] CONSENT/REFUSAL FOR 2021-09-01 22:14:42 Doctor Unassigned, No [facility] APTT 2021-04-08 09:10:00 Miguelina [facility] CBC W/PLT COUNT & AUTO 2021-04-08 05:18:00 Kwadwo [facility] COMPREHENSIVE METABOLIC 2021-04-08 05:18:00 Kwadwo [facility] Center PHOSPHORUS 2021-04-08 05:18:00 Kwadwo [facility] MAGNESIUM 2021-04-08 05:18:00 [facility] PROTHROMBIN TIME/INR 2021-04-08 05:18:00 Alie Hernandez [facility] APTT 2021-04-08 05:18:00 Miguelina [facility] CBC W/PLT COUNT & AUTO 2021-04-08 05:18:00 [facility] 2021-04-08 01:09:00 Miguelina [facility] POCT-GLUCOSE METER 2021-04-07 23:21:00 Miguelina [facility] APTT 2021-04-07 18:08:00 Miguelina [facility] POCT-GLUCOSE METER 2021-04-07 11:30:00 [facility] 2021-04-07 10:09:00 Miguelina [facility] POCT-GLUCOSE METER 2021-04-07 06:01:[facility] & AUTO 2021-04-07 05:28:00 [facility]OLIC 2021-04-07 05:28:00 [facility] PHOSPHORUS 2021-04-07 05:28:00 [facility] 2021-04-07 05:28:00 [facility] PROTHROMBIN TIME/INR 2021-04-07 05:28:00 [facility] W/[facility] & AUTO 2021-04-07 05:28:00 [facility] POCT-GLUCOSE METER 2021-04-06 23:57:00 [facility] 2021-04-06 22:30:00 [facility] 2D ECHO W/ DOPPLER 2021-04-06 12:01:00 [facility] (CW/PW/COLOR) [facility] APTT 2021-04-06 09:22:00 [facility] W/[facility]T COUNT & AUTO 2021-04-06 04:38:00 [facility]IVE METABOLIC 2021-04-06 04:38:00 [facility] 2021-04-06 04:38:00 [facility] 2021-04-06 04:38:00 [facility] PROTHROMBIN TIME/INR 2021-04-06 04:38:00 [facility] W/PLT COUNT & AUTO 2021-04-06 04:38:00 Kwadwo [facility] APTT 2021-04-06 00:56:[address] Miguel[address] [facility] CHEST WITH IV 2021-04-06 00:26:00 Jacquelyn Lashon [facility]SE METER 2021-04-05 22:28:00 Miguelina [facility] APTT 2021-04-05 17:54:00 Miguelina [facility] APTT 2021-04-05 12:01:00 [facility] POCT-GLUCOSE METER 2021-04-05 06:43:00 Miguleina [facility] CBC W/PLT COUNT & AUTO 2021-04-05 04:17:00 Kwadwo [facility] COMPREHENSIVE METABOLIC 2021-04-05 04:17:00 Kwadwo [facility] Center PHOSPHORUS 2021-04-05 04:17:00 Kwadwo [facility] MAGNESIUM 2021-04-05 04:17:00 Kwadwo, [facility] PROTHROMBIN TIME/INR 2021-04-05 04:17:00 [facility] APTT 2021-04-05 04:17:00 Miguelina [facility] CBC W/PLT COUNT & AUTO 2021-04-05 04:17:00 Kwadwo [facility] POCT-GLUCOSE METER 2021-04-05 00:38:00 [facility] 12-LEAD 2021-04-04 23:12:36 Unknown, [facility] ECG 12-LEAD 2021-04-04 23:12:36 Unknown, [facility] ECG 12-LEAD 2021-04-04 23:12:17 Unknown, [facility] ECG 12-LEAD 2021-04-04 23:12:17 Unknown, [facility] ECG 12-LEAD 2021-04-04 23:12:00 Unknown, [facility] ECG 12-LEAD 2021-04-04 23:12:00 Unknown, [facility] CBC W/PLT COUNT & AUTO 2021-04-04 06:03:00 [facility] MET[facility]OLIC 2021-04-04 06:03:00 [facility] PHOS[facility]US 2021-04-04 06:03:00 Kwadwo [facility] MAGNESIUM 2021-04-04 06:03:00 [facility] 2021-04-04 06:03:00 [facility]/INR 2021-04-04 06:03:00 [facility] W/PLT COUNT & AUTO 2021-04-04 06:03:00 Kwadwo [facility] HEMOGLOBIN AND 2021-04-03 22:59:00 Miguelina [facility] APTT 2021-04-03 22:59:00 Miguelina [facility] ECG 12-LEAD 2021-04-03 22:17:25 Favian Joyner [facility] ECG 12-LEAD 2021-04-03 22:17:25 Unknown, [facility] PLATELET COUNT 2021-04-03 11:50:00 Miguelina [facility] APTT 2021-04-03 11:50:00 Miguelina [facility] CBC W/PLT COUNT & AUTO 2021-04-03 04:26:00 Kwadwo [facility] COMPREHENSIVE METABOLIC 2021-04-03 04:26:00 Kwadwo [facility] PHOSPHORUS 2021-04-03 04:26:00 [facility] PROTHROMBIN TIME/INR 2021-04-03 04:26:00 [facility] MAGNESIUM 2021-04-03 04:26:00 [facility] CBC W/PLT COUNT & AUTO 2021-04-03 04:26:00 [facility] DIFFERENTIAL Center URINALYSIS WITH 2021-04-02 16:55:00 [facility] MICROSCOPIC IF INDICATED Center URINALYSIS MICROSCOPIC 2021-04-02 16:55:00 [facility] BASIC METABOLIC PANEL 2021-04-02 08:46:00 [facility] 2021-04-02 08:46:00 Ruddy [facility] PROTHROMBIN TIME/INR 2021-04-02 08:46:00 Ruddy [facility] CBC W/PLT COUNT & AUTO 2021-04-02 08:46:00 Fox, [facility] DIFFERENTIAL [facility] CBC W/PLT COUNT & AUTO 2021-04-02 08:46:00 [facility] DIFFERENTIAL [place] [facility] EKG-SCANNED 2021-04-02 00:00:00 [facility] Medical Scanning Alex AUTHORIZATION FOR 2020-02-18 06:01:00 Doctor Unassigned, No [facility] RELEASE OF [facility] Medical [place] COMP. METABOLIC PANEL 2019-09-02 11:21:00 Chico Mccall [facility] (50000) Medical [place] CBC WITH DIFFERENTIAL 2019-09-02 11:21:00 [facility] Medical [place] URINALYSIS 2019-09-02 11:21:00 [place] Mccall [facility] NOTICE OF PRIVACY 2019-09-02 10:54:46 Doctor Unassigned, No [facility] CONSENT/REFUSAL FOR 2019-09-02 10:54:27 Doctor Unassigned, No [facility]REATMENT Name Medical [place] PHYSICIAN ORDERS 2019-05-24 05:01:00 Doctor Unassigned, No [facility] Hospital Name Medical [place] POCT URINALYSIS AUTO 2019-05-04 17:32:00 Robbie Car [facility] DISCLOSURE AND CONSENT, 2019-05-04 06:01:00 Doctor Unassigned, N o [facility] MEDICAL AND SURGICAL Name Medical [facility] PROCEDURES POCT URINALYSIS AUTO 2019-04-20 17:08:00 Robbie Car [facility] ASSIGNMENT OF BENEFITS 2019-04-20 16:53:27 Doctor Unassigned, No [facility] Name [facility] REFERRAL- 2018-10-04 05:01:00 Doctor Unassigned, No [facility] REQUEST/RESPONSE Name [facility] REFUSAL OF NON-MEDICAL 2018-04-20 06:01:00 Doctor Unassigned, No [facility] SERVICES Name [facility] Plan of Care Planned Activity Planned Date [...] VACCINE (Season Ended)] Future Scheduled Test 2022-11-05 Influenza Vaccine [facility] 00:00:00 (Season Ended) [code Medical Center = Influenza Vaccine (Season Ended)] Future Scheduled Test 2022-06-09 COVID-19 VACCINE (#1) [facility] 02:57:05 [code = COVID-19 VACCINE (#1)] Future Scheduled Test 2022-06-09 COVID-19 VACCINE (#1) [facility] 02:57:05 [code = COVID-19 VACCINE (#1)] Future Scheduled Test 2022-06-09 SHINGLES VACCINES (1 [facility] 02:57:05 of 2) [code = SHINGLES VACCINES (1 of 2)] Future Scheduled Test 2022-06-09 65+ PNEUMOCOCCAL [facility] 02:57:05 VACCINE (1 - PCV) [code = 65+ PNEUMOCOCCAL VACCINE (1 - PCV)] Future Scheduled Test 2022-06-09 INFLUENZA VACCINE [facility] 02:57:05 [code = INFLUENZA VACCINE] Future Scheduled Test 2022-06-09 SHINGLES VACCINES (1 [facility] 02:57:05 of 2) [code = SHINGLES VACCINES (1 of 2)] Future Scheduled Test 2022-06-09 65+ PNEUMOCOCCAL [facility] 02:57:05 VACCINE (1 - PCV) [code = 65+ PNEUMOCOCCAL VACCINE (1 - PCV)] Future Scheduled Test 2022-06-09 INFLUENZA VACCINE [facility] 02:57:05 [code = INFLUENZA VACCINE] Future Scheduled Test 2022-06-09 COVID-19 VACCINE (#1) [facility] 02:57:05 [code = COVID-19 VACCINE (#1)] Future Scheduled Test 2022-06-09 SHINGLES VACCINES (1 [facility] 02:57:05 of 2) [code = SHINGLES VACCINES (1 of 2)] Future Scheduled Test 2022-06-09 65+ PNEUMOCOCCAL [facility] 02:57:05 VACCINE (1 - PCV) [code = 65+ PNEUMOCOCCAL VACCINE (1 - PCV)] Future Scheduled Test 2022-06-09 INFLUENZA VACCINE [facility] 02:57:05 [code = INFLUENZA VACCINE] Future Scheduled [...] Future Scheduled Test 2022-02-17 COVID-19 VACCINE (#1) [facility] 02:52:34 [code = COVID-19 VACCINE (#1)] Future Scheduled Test 2022-02-17 SHINGLES VACCINES (1 [facility] 02:52:34 of 2) [code = SHINGLES VACCINES (1 of 2)] Future Scheduled Test 2022-02-17 65+ PNEUMOCOCCAL [facility] 02:52:34 VACCINE (1 - PCV) [code = 65+ PNEUMOCOCCAL VACCINE (1 - PCV)] Future Scheduled Test 2022-02-17 INFLUENZA VACCINE [facility] 02:52:34 [code = INFLUENZA VACCINE] Future Scheduled [...] COVID-[address] VACCINE (#1)] Instructions [facility] Family Practice Encounters Start End Encounter Admission Attending Care Care Encounter Source Date/Time Date/Time Type Type Clinicians Facility Department ID 2022-06-29 Outpatient Perry, STLMLC [facility] [id number] Common 11:38:01 Shawn [id number] [facility] 2022-05-12 Outpatient [facility] [id number] [place] 21:23:[address] [place] [address] 2021-12-17 Outpatient Perry, STLMLC [facility] [id number] Common 08:32:02 Shawn [id number] [facility] 2021-01-02 Emergency [facility] [id number] Univers 14:31:41 ity [facility] 2021-01-02 Emergency [facility] [id number] Univers 03:17:11 ity [facility] 2020-12-10 Inpatient ER RUBEN, [facility] Surgery [id number] SLE 12:16:46 ZOYA 2020-12-10 Inpatient ER TRACY, [facility] [id number] [facility] 12:16:10 [facility] 2022-03-24 2022-03-[address] [facility] [id number] Co mmon 00:00:00 00:00:00 VISIT EST Spir it PT LEVEL 3 - [facility] 2021-12-17 2021-12-17 OFFICE [facility] [id number] Co mmon 00:00:00 00:00:00 VISIT Spirit ESTAB PT - [facility]I LEVEL [facility] 2021-09-18 2021-09-18 Outpatient DMG DM [id number] [facility] 03:02:00 03:02:00 [id number] [facility] l Group 2021-09-18 2021-09-18 Outpatient DMG DM [id number] [facility] 00:00:00 00:00:00 [id number] Medica l Group 2021-09-01 2021-09-02 Emergency X Carley [facility] ERT [id number] Univers 17:21:00 01:51:00 [facility] 2021-09-01 2021-09-02 Emergency Carley Green [facility] 1.2.840.114 [id number] Univers 17:21:00 01:51:00 Analy JONES 350.1.13.10 i ty of [place] 4.2.7.2.686 [facility] [phone] [facility] 084 Branch 2021-09-01 2021-09-01 Orders Doctor NIRAV 1.2.840.114 [id number] Univers 00:00:00 00:00:00 Only Unassigned, KENNETH 350.1.13.10 ity of [place] [facility] 4.2.7.2.686 [facility] [phone] [facility] 009 Branch 2021-06-03 2021-06-03 Outpatient DMG DM [id number] [facility] 04:03:00 04:03:00 Medica l Group 2021-05-22 2021-05-22 Outpatient DMG DMG [id number] [facility] 12:01:00 12:01:00 Medica l Group 2021-05-13 2021-05-13 Outpatient DMG DMG [id number] [facility] 12:00:00 12:00:00 Medica l Group 2021-04-02 2021-04-08 [facility] Queenie Rainey [facility] [id number] 05:31:00 12:45:00 Encounter Yusra Sethi [facility] 2021-04-02 2021-04-08 Inpatient ER LAURA HILL [facility] [id number] [facility] 05:31:00 12:45:00 DAVID 2021-04-06 2021-04-06 Outpatient [facility] [id number] [facility] 00:00:00 23:59:00 Shawna holm of Medicin e 2021-04-03 2021-04-03 Orders [facility] [id number] 00:00:00 00:00:00 [facility] 2021-01-07 2021-01-07 Telephone [facility] 1.2.840.114 [id number] [facility] 00:00:00 00:00:00 Eduardo Data Maid 350.1.13.10 it y of [place] 4.2.7.2.686 Bran as ARISTEO?BLEA [phone] Vt dicangela THOMAS [address] [place] [address] OFFICE [facility] 2021-01-05 2021-01-05 Telephone [facility] 1.2.840.114 [id number] Univers 00:00:00 00:00:00 Eduardo L Carsabi 350.1.13.10 it y of [place] 4.2.7.2.686 Bran as ARISTEO?BLEA [phone] Vt dicangela KNEY 198 [facility] 2020-10-14 2020-10-14 Telephone [facility] 1.2.840.114 [id number] Univers 00:00:00 00:00:00 Eduardo Synthego 350.1.13.10 it y of Surgical 4.2.7.2.686 Bran as Specialti [id number] Vt dical es 198 [facility] 2020-10-09 2020-10-09 Telephone [facility] 1.2.840.114 [id number] Univers 00:00:00 00:00:00 Eduardo Sandhu [facility] 350.1.13.10 it y of Surgical 4.2.7.2.686 Bran as Specialti [phone] Vt dical es 198 [facility] 2020-09-11 2020-09-11 [facility] 1.2.840.114 [id number] Univers 00:00:00 00:00:00 [facility] 350.1.13.10 it y of Surgical 4.2.7.2.686 Bran as Specialti [phone] Vt dical es 198 Artemio Jones 2020-08-14 2020-08-14 [facility] 1.2.840.114 [id number] Univers 00:00:00 00:00:00 [facility] 350.1.13.10 it y of Surgical 4.2.7.2.686 Bran as Specialti [phone] Vt dical es 198 Artemio [place] 2020-07-07 2020-07-07 Telephone [facility] 1.2.840.114 [id number] 00:00:00 00:00:00 Eduardo [facility]hu [facility] 350.1.13.10 Surgical 4.2.7.2.686 Specialti [phone] es Zena [place] 2020-07-07 2020-07-07 [facility] 1.2.840.114 [id number] [facility] 00:00:00 00:00:00 Eduardo Sandhu [facility] 350.1.13.10 it y of Surgical 4.2.7.2.686 Bran as Specialti [phone] Vt dical es 198 Artemio [place] 2020-06-12 2020-06-12 Outpatient Ajibade_O_A VFP VFP [id number] Village 10:56:00 10:56:00 H 87161 Family Practic e 2020-05-26 2020-05-26 Telephone [facility] 1.2.840.114 [id number] 00:00:00 00:00:00 Eduardo [facility]hu [facility] 350.1.13.10 Surgical 4.2.7.2.686 Specialti [phone] es 198 [place] 2020-05-26 2020-05-26 Telephone [facility] 1.2.840.114 [id number] [facility] 00:00:00 00:00:00 Eduardo [facility]hu [facility] 350.1.13.10 it y of Surgical 4.2.7.2.686 Bran as Specialti [phone] Me dical es 198 Branch [place] 2020-03-20 2020-03-20 Outpatient Ajibade_O_A VFP VFP [id number] [id number] [facility] 05:22:00 05:22:00 H 72890 Family Practic e 2020-03-20 2020-03-20 Outpatient Ajibade_O_A VFP VFP [id number] [id number] [facility] 05:22:00 05:22:00 H 15159 Family Practic e 2020-03-20 2020-03-20 Outpatient Ajibade_O_A VFP VFP [id number] [id number] [facility] 05:22:00 05:22:00 H 16512 Family Practic e 2020-03-20 2020-03-20 [facility]phone [facility] 1.2.045.988 [id number] 00:00:00 00:00:00 [facility] 350.1.13.10 Surgical 4.2.7.2.686 Specialti [phone] es 198 [place] 2020-03-20 2020-03-20 [facility]phone [facility] 1.2.619.725 [id number] [facility] 00:00:00 00:00:00 [facility] 350.1.13.10 it y of Surgical 4.2.7.2.686 Bran as Specialti [phone] Vt dical es 198 Artemio [place] 2020-03-10 2020-03-10 Outpatient Ajibade_O_A VFP VFP [id number] [facility] 11:19:00 11:19:00 H 22190 Family Practic e 2020-03-10 2020-03-10 [facility] [place] [facility] [id number] V illage 00:00:00 00:00:00 Leo Sanchez Famil y DECK STEWARD: 9235 Medical - Pract norm Arteaga, [email or web address] [place] [address], [facility], [facility] [id number] , Ph. 2020-02-18 2020-02-18 Orders Doctor GASTELUM 1.2.840.114 [id number] 00:00:00 00:00:00 Only Unassigned, KENNETH 350.1.13.10 [facility] 4.2.7.2.686 [id number] 009 2020-02-18 2020-02-18 Orders Doctor NIRAV 1.2.840.114 [id number] Univers 00:00:00 00:00:00 Only Unassigned, KENNETH 350.1.13.10 ity of [place] 4.2.7.2.686 Bran as [phone] [address] 2020-01-28 2020-01-28 Telephone [facility] 1.2.347.209 [id number] 00:00:00 00:00:00 [facility] 350.1.13.10 Surgical 4.2.7.2.686 Specialti [phone] [address] 2020-01-28 2020-01-28 [facility]phone [facility] 1.2.842.078 [id number] [facility] 00:00:00 00:00:00 [facility] 350.1.13.10 it y of Surgical 4.2.7.2.686 Bran as Specialti [phone] Vt dical [address] 2019-12-28 2019-12-28 Emergency ER [facility] Emergency [id number] [facility] 20:07:00 20:07:00 2019-12-21 2019-12-21 [facility]phone [facility] 1.2.840.114 [id number] 00:00:00 00:00:00 Robbie [place] 350.1.13.10 [place] 4.2.7.2.686 Professio [phone] [address] 2019-12-21 2019-12-21 [facility] 1.2.840.114 [id number] [facility] 00:00:00 00:00:00 Robbie [place] 350.1.13.10 i ty of [place]2.7.2.686 [place] [phone] Vt dical [address] 2019-12-20 2019-12-20 Outpatient R JOYCE [facility] [id number] Univers 09:30:00 09:30:00 ROBBIE [facility]y [facility] 2019-12-10 2019-12-10 [facility] [id number] Univers 15:15:00 15:15:00 ROBBIE ity [facility] 2019-12-07 2019-12-07 Outpatient R JOYCE [facility] [id number] Univers 13:00:00 13:00:00 ROBBIE ity [facility] 2019-12-07 2019-12-07 Nurse Nurse, [facility] 1.2.840.114 [id number] 10:38:50 11:10:03 Visit Surgery Gu [place] 350.1.13.10 [place] 4.2.7.2.686 Professio [phone] [address] 2019-12-07 2019-12-07 Nurse Nurse, [facility] Surgery [facility] 1.2. 840.114 [id number] [facility] 10:38:50 11:10:03 Visit Robbie Car 350.1.13.10 ity of [place] 4.2.7.2.686 [place] [phone] Vt dic[address] 2019-11-20 2019-11-20 Nurse Nurse, [facility] 1.2.840.114 [id number] 13:06:00 13:52:14 Visit Surgery Gu [place] 350.1.13.10 [place] 4.2.7.2.686 Professio [id number] [address] 2019-11-20 2019-11-20 Nurse Nurse, [facility] Surgery [facility] 1.2. 840.114 [id number] [facility] 13:06:00 13:52:14 Visit Robbie Car 350.1.13.10 ity of [place] 4.2.7.2.686 [place] [phone] [address] 2019-11-20 2019-11-20 Outpatient R JOYCE [facility] [id number] Univers 13:00:00 13:00:00 ROBBIE ity [facility] 2019-11-07 2019-11-07 Nurse Nurse, [facility] 1.2.840.114 [id number] 14:34:31 14:49:31 Visit Surgery Gu [place] 350.1.13.10 [place] 4.2.7.2.686 Professio [phone] [address] 2019-11-07 2019-11-07 Nurse Nurse, Adc Surgery [facility] 1.2. 840.114 [id number] Univers 14:34:31 14:49:31 Visit Robbie Car 350.1.13.10 ity of [place] 4.2.7.2.686 [place] [phone] [address] 2019-11-07 2019-11-07 Outpatient R [facility] [id number] Univers 14:15:00 14:15:00 ity [facility] 2019-11-07 2019-11-07 Outpatient R [facility] [id number] Univers 11:00:00 11:00:[address] [facility] 2019-11-01 2019-11-01 Outpatient Ajibade_O_A VFP VFP [id number] [facility] 04:47:00 04:47:00 H 22069 Family Practic e 2019-09-24 2019-09-24 Office [facility] 1.2.840.114 [id number] 15:17:44 17:03:35 Visit Robbie Jones 350.1.13.10 [place] 4.2.7.2.686 Professio [phone] [address] 2019-09-24 2019-09-24 Office [facility] 1.2.840.114 [id number] Univers 15:17:44 17:03:35 Visit Robbie [place] 350.1.13.10 i ty of [place] 4.2.7.2.686 [place] [phone] [address] 2019-09-24 2019-09-24 Outpatient R HTEODOREFORMERLY [facility] [id number] Univers 16:00:00 16:00:[address] [facility] 2019-09-21 2019-09-21 Office [facility] 1.2.840.114 [id number] Univers 15:33:57 16:14:10 Visit Robbie [place] 350.1.13.10 i ty of [place] 4.2.7.2.686 [place] [phone] [address] 2019-09-21 2019-09-21 Outpatient R JOYCE [facility] [id number] Univers 16:00:00 16:00:00 ROBBIE ity [facility] 2019-09-19 2019-09-19 Nurse Nurse, [facility] Surgery [facility] 1.2. 840.114 [id number] Univers 10:50:18 11:21:35 Visit Robbie Car Mireille 350.1.13.10 ity of [place] 4.2.7.2.686 [place] [facility] [phone] Vt dical nal 204 [facility] 2019-09-19 2019-09-19 Outpatient R [facility] [id number] Univers 10:45:00 10:45:00 [facility] 2019-09-17 2019-09-17 [facility] 1.2.058.184 [id number] 00:00:00 00:00:00 [facility] 350.1.13.10 Surgical 4.2.7.2.686 Specialti [phone] [address] 2019-09-17 2019-09-17 [facility] 1.2.936.485 [id number] Univers 00:00:00 00:00:00 [facility] 350.1.13.10 it y of Surgical 4.2.7.2.686 Bran as Specialti [phone] [facility] 198 [facility] 2019-09-02 2019-09-02 Emergency [facility] 1.2.787.568 [id number] Univers 05:59:14 07:38:00 Chico Jones 350.1.13.10 i ty of [place] 4.2.7.2.686 [place] [phone] [facility] 084 [place] 2019-09-02 2019-09-02 Orders Doctor NIRAV 1.2.840.114 [id number] Univers 00:00:00 00:00:00 Only Unassigned, KENNETH 350.1.13.10 ity of [facility] 4.2.7.2.686 Bran as [id number] [facility] 009 [place] 2019-08-30 2019-08-30 Telephone [facility] 1.2.840.114 [id number] Univers 00:00:00 00:00:00 [facility] 350.1.13.10 it y of Surgical 4.2.7.2.686 Bran as Specialti [phone] Vt dical es 198 [facility] 2019-08-24 2019-08-24 Outpatient R [facility] [id number] Univers 14:00:00 14:00:00 ROBBIE ity [facility] 2019-08-10 2019-08-10 Office [facility] 1.2.840.114 [id number] Univers 15:15:27 16:21:06 Visit [facility] 350.1.13.10 i ty of [place] 4.2.7.2.[place] [phone] Vt dical [facility] 204 [facility] 2019-08-10 2019-08-10 Outpatient R [facility] [id number] Univers 16:00:00 16:00:00 ROBBIE ity [facility] 2019-07-23 2019-07-23 Outpatient R [facility] [id number] Univers 10:00:00 10:00:[address] [facility] 2019-07-09 2019-07-09 Office [facility] 1.2.840.114 [id number] Univers 10:27:37 11:55:27 Visit [facility] 350.1.13.10 i ty of [place] 4.2.7.2.[place] [phone] [address] 2019-07-09 2019-07-09 Outpatient R [facility] [id number] Univers 11:00:00 11:00:00 ROBBIE ity [facility] 2019-07-04 2019-07-04 Outpatient R [facility] [id number] Univers 09:00:00 09:00:00 [facility] 2019-07-03 2019-07-03 Outpatient R [facility] [id number] Univers 10:00:00 10:00:00 [facility] 2019-07-03 2019-07-03 Nurse Nurse, Adc Surgery [facility] 1.2. 840.114 [id number] Univers 09:29:30 09:53:59 Visit Pojohn Robbie Mireille 350.1.13.10 ity of [place] 4.2.7.2.686 [place] [phone] Vt dical nal 204 [facility] 2019-06-18 2019-06-18 [facility]phone [facility] 1.2.840.114 [id number] Univers 00:00:00 00:00:00 [facility] 350.1.13.10 it y of Surgical 4.2.7.2.686 Bran as Specialti [phone] Vt dical es 198 [facility] 2019-06-06 2019-06-06 Nurse Nurse, [facility] Surgery [facility] 1.2. 840.114 [id number] Univers 09:58:45 10:28:51 Visit Robbie Car 350.1.13.10 ity of [place] 4.2.7.2.686 [place] [phone] Vt dical nal 204 [facility] 2019-06-06 2019-06-06 Outpatient R JOYCE [facility] [id number] Univers 09:45:00 09:45:00 ROBBIE ity [facility] 2019-06-06 2019-06-06 Telephone [facility] 1.2.168.210 [id number] Univers 00:00:00 00:00:00 Gloria Fernandez Mireille 350.1.13.10 ity of [place] 4.2.7.2.686 [place] [phone] Vt dical nal 377 [facility] 2019-05-24 2019-05-24 Outpatient R JOYCE [facility] [id number] Univers 16:15:00 16:15:00 ROBBIE ity [facility] 2019-05-24 2019-05-24 Office [facility] 1.2.840.114 [id number] Univers 12:43:32 14:03:24 Visit Robbie Mireille 350.1.13.10 i ty of [place] 4.2.7.2.686 [place] [phone] Vt dical nal 204 [facility] 2019-05-24 2019-05-24 [facility] [id number] Univers 13:00:00 13:00:00 [facility] 2019-05-24 2019-05-24 Orders Doctor GASTELUM 1.2.840.114 [id number] Univers 00:00:00 00:00:00 Only Unassigned, KENNETH 350.1.13.10 ity of [facility] 4.2.7.2.686 Bran as [phone] [address] 2019-05-21 2019-05-21 Telephone [facility] 1.2.840.114 [id number] Univers 00:00:00 00:00:00 [facility] 350.1.13.10 it y of Surgical 4.2.7.2.686 Bran as Specialti [phone] Vt dical es 198 [facility] 2019-05-04 2019-05-04 Office Joyce [facility] 1.2.840.114 [id number] Univers 11:01:36 12:30:18 Visit Rm, Adc Surg Spec Procedure [place] 3 50.1.13.10 ity of [place] 4.2.7.2.[place] [phone] Vt dical nal 204 [facility] 2019-05-04 2019-05-04 [facility] [id number] Univers 11:00:00 11:00:00 [facility] 2019-05-04 2019-05-04 Orders Doctor GASTELUM 1.2.840.114 [id number] Univers 00:00:00 00:00:00 Only Unassigned, KENNETH 350.1.13.10 ity [facility] 4.2.7.2.686 Bran as [phone] [address] 2019-04-25 2019-04-25 Outpatient [place] VFP VFP [id number] [facility] 07:22:00 07:22:00 _J_AH 78353 Family Practic e 2019-04-24 2019-04-24 Outpatient PAUL, [facility] [id number] [address] [place] [address] 00:00:00 00:00:00 JULIET [address] 2019-04-23 2019-04-23 Telephone [facility] 1.2.840.114 [id number] Univers 00:00:00 00:00:00 Robbie [place] 350.1.13.10 i ty of [place] 4.2.7.2.[place] [phone] [address] 2019-04-20 2019-04-20 Out[facility] [id number] Univers 11:00:00 12:03:25 ROBBIE ity [facility] 2019-04-20 2019-04-20 Office [facility] 1.2.840.114 [id number] Univers 10:57:47 12:03:25 Visit Robbie [place] 350.1.13.10 i ty of [place] 4.2.7.2.686 [place] [phone] [address] 2019-04-20 2019-04-20 Orders Doctor NIRAV 1.2.840.114 [id number] Univers 00:00:00 00:00:00 Only Unassigned, KENNETH 350.1.13.10 ity of [place] [facility] 4.2.7.2.686 Bran as [phone] [address] 2018-10-31 2018-10-31 Refill [facility] [id number] [employer] 00:00:00 00:00:00 [facility] 350.1.13.10 it y of Surgical 4.2.7.2.686 [place] as Specialti [phone] Vt dictn es 198 [facility] 2018-10-06 2018-10-06 Office [facility] [id number] Univers 08:24:12 09:20:41 Visit [facility] 350.1.13.10 it y of Surgical 4.2.7.2.686 [place] as Specialti [phone] Vt dical es 198 [facility] 2018-10-04 2018-10-04 Orders Doctor GASTELUM 1.2.840.114 [id number] Univers 00:00:00 00:00:00 Only Unassigned, KENNETH 350.1.13.10 ity [facility] 4.2.7.2.686 Bran as [phone] [place] [address] [address] 2018-04-20 2018-04-20 Orders Doctor NIRAV 1.2.840.114 [id number] [facility] 00:00:00 00:00:00 Only Unassigned, KENNETH 350.1.13.10 ity of [facility] [id number] Bran as [phone] [place] [address] [place] 2015-02-10 2015-02-10 Outpatient JACQUELYN [facility] 4742 6833 [facility] 16:05:13 17:30:32 LASHON Shawna holm of Medicin e Results Test Description [...] 32.2 g/dL 31.2-35.0 RDW-SD (test code = 00247-9) 43.8 fL 38.5-51.6 RDW-CV (test code = 788-0) 12.9 % 12.1-15.4 PLT (test code = 777-3) See_Comment [Au tomated message] The system which ge nerated this result transmit dena reference range: 150 - 32 8 10*3/?L. The reference range was not used to interpret th is result as normal/abnormal . MPV (test code = 92097-4) 11.2 fL 9.8-13.0 NRBC/100 WBC (test code = See_Comment [ Automated message] The 7708539395) system which ge nerated this result transmit dena reference range: 0.0 - 10 .0 /100 WBCs. The reference r nela was not used to interpr et this result as normal/abnor mal. NRBC x10^3 (test code = <0.01 See_Comment [Au tomated message] The 1253841319) system which ge nerated this result transmit dena reference range: 10*3/?L. The reference range was not u sed to interpret this result as normal/abnormal . SEG % (test code = 48544-0) 36 % 33-76 BAND % (test code = 49677-1) 2 % 0-1 H LYMPH % (test code = 50 % 14-54 93084-4) MONO % (test code = 38251-1) 7 % 0-4 H EOS % (test code = 15498-3) 5 % 0-3 H ANC (test code = 753-4) 3.25 10*3/uL 1.99-6.95 Lab Interpretation (test Abnormal code = 83494-7) [facility] [id number] 00:12:52 Test Item Value Reference Interpretation Comments Range TROPONIN I (test 0.004 ng/mL See_Comment [Automated code = 1273251410) message] The system which generated this result [...] biotin. Lab Interpretation Normal (test code = 79704-0) [facility] [id number] 00:09:50 Test Item Value Reference Range Interpretation Comments NT-proBNP (test code 774 pg/mL See_Comment H [Autom ated = 5939615567) message] The system which generated this result transmitted reference range : <=450. The reference range was not used to interpret this result as normal/abnormal . JETT (test code = JETT) Biotin has been reported to cause a negative bias, interpret results relative to patient's use of biotin. Lab Interpretation Abnormal (test code = 94887-0) [facility] THRMPLAS [id number] 00:03:30 Test Item Value Reference Range Interpretation [...] seconds. Lab Interpretation Normal (test code = 97727-8) [facility] 00:02:09 Test Item Value Reference Range Interpretation Comments MAGNESIUM (test code = 7643800925) 2.1 mg/dL 1.7-2.4 Lab Interpretation (test code = Normal 78938-7) [facility]OLIC PAN[facility] (18828)2021-09-02 00:01:48 Test Item Value Reference Range Interpretation Comments NA (test code = 142 mmol/L 135-145 0672906407) K (test code = 4.1 mmol/L 3.5-5.0 4648703347) CL (test code = 107 mmol/L 98-108 0920724400) CO2 TOTAL (test code = 27 mmol/L 23-31 9300306461) AGAP (test code = 2-16 2278778318) BUN (test code = 21 mg/dL 7-23 3552280294) GLUCOSE (test code = 135 mg/dL 70-110 H 4168178353) CREATININE (test code = 1.08 mg/dL 0.60-1.25 5468128020) TOTAL BILI (test code = 0.5 mg/dL 0.1-1.4 0253322431) CALCIUM (test code = 8.7 mg/dL 8.6-10.6 9400569010) T PROTEIN (test code = 6.3 g/dL 6.3-8.2 0036414143) ALBUMIN (test code = 3.8 g/dL 3.5-5.0 9573055483) ALK PHOS (test code = 77 U/L 34-122 9558595259) ALTv (test code = 23 U/L 5-50 1742-6) AST(SGOT) (test code = 29 U/L 13-40 6269847139) eGFR (test code = mL/min/1.73m2 6306949180) JETT (test code = JETT) Association of [...] tests). Lab Interpretation Abnormal (test code = 57042-1) [facility]th[facility] / [id number] 00:01:28 Test Item Value Reference Range Interpretation Comments PROTIME PATIENT (test See_Comment H [Auto mated message] code = 5964-2) The system ich generated this result transmitted ref erence range: 12.0 - 1 4.7 Seconds. The reference range was not used to int erpret this result as normal/abnormal . INR (test code = 6301-6) Nor mal INR <1.1; Warfarin Therap eutic range 2.0 to 3. 0 or 2.5 to 3.5, dep ending upon the indica tions. Lab Interpretation (test Abnormal code = 09506-2) [facility] 09:31:43 Test Item Value Reference Range Interpretation Comments PTT (test code = 87.5 See_Comment H [Automated message] 35707-0) The system [employer] generated this result transmitted ref erence range: 22.5 - 3 6.0 seconds. The reference range was not used to int erpret this result as normal/abnormal . Lab Interpretation (test Abnormal code = 57853-3) [facility]43 Test Item Value Reference Range Interpretation Comments PARTIAL THROMBOPLASTIN TIME 87.5 seconds 22.5-36.0 H (BEAKER) (test code = 760) Tgqfexvji7490-50-21 07:07:31 Test Item Value Reference Range Interpretation Comments Magnesium (test code = 2.0 mg/dL 1.6-2.6 84744-2) JETT (test code = JETT) [employer] Setter ID - PIAYA L Lab Interpretation (test Normal code = 25757-7) [facility] 07:07:31 Test Item Value Reference Range Interpretation Comments Phosphorus (test code = 3.9 mg/dL 2.3-4.7 2777-1) JETT (test code = JETT) [employer] Setter ID - PIAYA L Lab Interpretation (test Normal code = 61651-5) [facility] 07:07:31 Test Item Value Reference Range Interpretation Comments MAGNESIUM (BEAKER) (test code = 2.0 mg/dL 1.6-2.6 627) [employer] Marble Setter ID - MERON DYSAAOLWLEJ7346-98-75 07:07:31 Test Item Value Reference Range Interpretation Comments PHOSPHORUS (BEAKER) (test code = 3.9 mg/dL 2.3-4.7 604) [employer] Setter ID - MERON LComprehensive metabolic llwpl6750-76-17 07:07:30 Test Item Value Reference Range Interpretation Comments Protein, Total (test 6.0 See_Comment [Autom ated code = 2885-2) message] The system which generated this result transmit dena reference range : 6.0 - 8.3 gm/dL . The reference range was not u sed to interpret th is result as normal/abnormal . Albumin (test code = 3.4 g/dL 3.5-5.0 L 14485-5) Alkaline Phosphatase 53 U/L 40-150 (test code = 6768-6) Total Bilirubin (test 0.7 mg/dL 0.2-1.2 code = 1975-2) Sodium (test code = 141 meq/L 794-932 5761-2) Potassium (test code 3.9 meq/L 3.5-5.1 = 2823-3) Chloride (test code = 111 meq/L 98-107 H 2075-0) CO2 (test code = 25 meq/L 22-29 8-9) BUN (test code = 15 mg/dL 7-21 3094-0) Creatinine (test code 0.83 mg/dL 0.57-1.25 = 2160-0) Glucose (test code = 97 mg/dL 70-105 2345-7) Calcium (test code = 8.8 mg/dL 8.4-10.2 67696-9) AST (test code = 18 U/L 5-34 1920-8) ALT (test code = 16 U/L 6-55 1742-6) EGFR (test code = 87 mL/min/1.73 [place] [address]-5) NOT ACCURATE CREATININE CLEARANCE IN PREDICTING GLOMERULAR FILTRATION RATE . ESTIMATED GFR I S NOT APPLICABLE FOR DIALYSIS PATIEN TS. JETT (test code = JETT) [employer] Marble Setter ID - MERON L Lab Interpretation Abnormal (test code = 38402-2) [facility] [id number] 07:07:30 Test Item Value Reference Range Interpretation [...] S NOT APPLICABLE FOR DIALYSIS PATIEN TS. [employer] Marble Setter ID - PIAYA [id number] 06:38:29 Test Item Value Reference Range Interpretation Comments PARTIAL THROMBOPLASTIN TIME 115.6 seconds 22.5-36.0 H (BEAKER) (test code = 760) CBC with platelet count + automated jokw3075-30-60 06:16:50 Test Item Value Reference Range Interpretation Comments WBC (test code = 6690-2) 8.1 See_Comment [A utomated message] The system [employer] generated this result transmitted ref erence range: 3.5 - 10 .5 K/L. The refe rence range was not u sed to interpret this result as normal/abnor mal. RBC (test code = 789-8) 4.07 See_Comment L [Au tomated message] The system [employer] generated this result transmitted ref erence range: 4.63 - 6 .08 M/L. The refe rence range was not u sed to interpret this result as normal/abnor mal. MCHC (test code = 786-4) 32.2 See_Comment L [A utomated message] The system [employer] generated this result transmitted ref erence [...] See_Comment [Aut omated message] 777-3) The system [employer] generated this result transmitted ref erence range: 150 - 45 0 K/CU MM. The referen ce range was not u sed to interpret this result as normal/abnor mal. MPV (test code = 11.2 fL 9.4-12.4 85283-6) nRBC (test code = 413) 0 See_Comment [Aut omated message] The system [employer] generated this result transmitted ref erence [...] See_Comment [Aut omated message] 670) The system [employer] generated this result transmitted ref erence range: 1.78 - 5 .38 K/L. The refe rence range was not u sed to interpret this result as normal/abnor mal. # Lymphs (test code = 2.81 See_Comment [Auto mated message] 414) The system [employer] generated this result transmitted ref erence range: 1.32 - 3 .57 K/L. The refe rence range was not u sed to interpret this result as normal/abnor mal. # Monos (test code = 0.65 See_Comment [Autom ated message] 415) The system [employer] generated this result transmitted ref erence range: 0.30 - 0 .82 K/L. The refe rence range was not u sed to interpret this result as normal/abnor mal. # Eos (test code = 416) 0.40 See_Comment [Au tomated message] The system [employer] generated this result transmitted ref erence range: 0.04 - 0 .54 K/L. The refe rence range was not u sed to interpret this result as normal/abnor mal. # Baso (test code = 417) 0.09 See_Comment H [A utomated message] The system [employer] generated this result transmitted ref erence range: 0.01 - 0 .08 K/L. The refe rence range was not u sed to interpret this result as normal/abnor mal. Immature 1 % 0-1 Granulocytes-Relative (test code = 2801) Lab Interpretation (test Abnormal code = 51714-7) [facility] W/PLT COUNT & AUTO [id number] 06:16:50 Test Item Value Reference Range Interpretation [...] = 2801) Daily Prothrombin time/INR while on pehzxqzg0858-08-05 06:13:51 Test Item Value Reference Interpretation Comments [...] valves. Lab Interpretation Abnormal (test code = 99102-4) [facility] HospitalPROTHROMBIN [facility]/[id number] 06:13:51 Test Item Value Reference Range Interpretation Comments PROTIME (CHANDNI) 20.5 seconds 11.9-14.2 H (test code = 759) INR ([facility]) (test 1.78 See_Comment [Automat ed message] code = 370) The system [employer] generated this result transmitted ref erence range: <=5.90. The reference range was not used to int erpret this result as normal/abnormal . RECOMMENDED COUMADIN/WARFARIN INR THERAPY RANGESSTANDARD DOSE: 2.0 - 3.0 Includes: PROPHYLAXIS for venous thrombosis, systemic embolization; TREATMENT for venous thrombosis and/or pulmonary embolus.HIGH RISK: Target INR is 2.5-3.5 for patients with mechanical heart valves.[id number] 01:58:38 Test Item Value Reference Range Interpretation Comments PARTIAL THROMBOPLASTIN TIME 88.8 seconds 22.5-36.0 H (AKER) (test code = 760) POC-Glucose wcpel5810-50-41 23:44:39 Test Item Value Reference Range Interpretation Comments POC-Glucose Meter (test 103 mg/dL 70-110 : TE STED AT [facility] code = 1538) [address] [facility], 770 30: T[employer] And Marble Setter/Techni cory ID = [id number] for Ashley Waller Lab Interpretation (test Normal code = 16392-9) [facility]PO[facility]UCOSE [id number] 23:44:39 Test Item Value Reference Range Interpretation Comments POC-GLUCOSE METER 103 mg/dL 70-110 : TESTED A T [facility] 6720 (BEAKER) (test code = [facility], 1538) [address]: [employer] Marble Setter/Techni cory ID = [id number] for Ashley Garcia [id number] 18:49:14 Test Item Value Reference Range Interpretation Comments PARTIAL THROMBOPLASTIN TIME 62.6 seconds 22.5-36.0 H (BEAKER) (test code = 760) POCT-GLUCOSE [id number] 11:52:36 Test Item Value Reference Range Interpretation Comments POC-GLUCOSE METER 88 mg/dL 70-110 : [facility] ([facility] (test code = [place], 1538) [address]: [employer] Marble Setter/Techni cory ID = [id number] for MARISELA KELLOGG [id number] 10:29:13 Test Item Value Reference Range Interpretation Comments PARTIAL THROMBOPLASTIN TIME 95.0 seconds 22.5-36.0 H (BEAKER) (test code = 760) [id number] 09:21:32 Test Item Value Reference Range Interpretation Comments PHOSPHORUS (BEAKER) (test code = 3.9 mg/dL 2.3-4.7 604) [employer] Setter ID - PIAYA LCOMPREHENSIVE METABOLIC LKQBK3231-23-02 09:21:31 Test Item Value Reference Range Interpretation [...] S NOT APPLICABLE FOR DIALYSIS PATIEN TS. [employer] Marble Setter ID - MERON IRDCKOQJNZ9509-28-61 09:21:31 Test Item Value Reference Range Interpretation Comments MAGNESIUM (BEAKER) (test code = 2.0 mg/dL 1.6-2.6 627) [employer] Setter ID - MERON LPROTHROMBIN TIME/[id number] 06:28:22 Test Item Value Reference Range Interpretation Comments PROTIME (BEAKER) 16.4 seconds 11.9-14.2 H (test code = 759) INR (BEAKER) (test 1.35 See_Comment [Automat ed message] code = 370) The system [employer] generated this result transmitted ref erence range: <=5.90. The reference range was not used to int erpret this result as normal/abnormal . RECOMMENDED COUMADIN/WARFARIN INR THERAPY RANGESSTANDARD DOSE: 2.0 - 3.0 Includes: PROPHYLAXIS for venous thrombosis, systemic embolization; TREATMENT for venous thrombosis and/or pulmonary embolus.HIGH RISK: Target INR is 2.5-3.5 for patients with mechanical heart valves.CBC W/PLT COUNT & AUTO [id number] 06:24:34 Test Item Value Reference Range Interpretation [...] PERCENT (BEAKER) (test code = 2801) POCT-GLUCOSE [id number] 06:13:53 Test Item Value Reference Range Interpretation Comments POC-GLUCOSE METER 100 mg/dL 70-110 : TESTED A T [facility] 6720 (BEAKER) (test code = [facility], 1538) [address]: T[employer] And Marble Setter/Techni cory ID = [id number] for Ashley Garcia POCT-GLUCOSE [id number] 00:08:35 Test Item Value Reference Range Interpretation Comments POC-GLUCOSE METER 100 mg/dL 70-110 : TESTED A T [facility] 6720 (BEAKER) (test code = [facility], 1538) [address]: [employer]ble Setter/Techni cory ID = [id number] for Ashley Garcia [id number] 23:35:31 Test Item Value Reference Range Interpretation Comments PARTIAL THROMBOPLASTIN TIME 109.7 seconds 22.5-36.0 H (DAVE) (test code = 760) 2D Echo W/Doppler(CW/PW/Color)2021-04-06 17:15:30Ejection FractionSLEH ECHO HEARTLAB MKCKESSON CPACSCHI [facility] 09:46:56 Test Item Value Reference Range Interpretation Comments PARTIAL THROMBOPLASTIN TIME 33.2 seconds 22.5-36.0 (DAVE) (test code = 760) CT, CHEST, WITH ADRRBEQH8119-08-20 08:40:00Unlisted Reason for Exam - Click Yes and Enter Reason Below->Yespost TAVRUnlisted Reason for Exam->evalauate for leaflet thrombosis [facility] 1935 Sex: MFINAL [...] MDReport Verified Date/Time: 04/06/2021 08:40:10 REHENSIVE METABOLIC [id number] 06:21:48 Test Item Value Reference Range Interpretation [...] S NOT APPLICABLE FOR DIALYSIS PATIEN TS. T[employer] And Marble Setter ID - MERON Quiroz ID - JRDPVKQJFGCW4310-24-01 05:55:52 Test Item Value Reference Range Interpretation Comments PHOSPHORUS (BEAKER) (test code = 4.2 mg/dL 2.3-4.7 604) [employer]ble Setter ID - MERON [id number] 05:55:51 Test Item Value Reference Range Interpretation Comments MAGNESIUM (BEAKER) (test code = 2.0 mg/dL 1.6-2.6 627) [employer] Setter ID - MERON LPROTHROMBIN TIME/[id number] 05:31:15 Test Item Value Reference Range Interpretation Comments PROTIME (BEAKER) 14.4 seconds 11.9-14.2 H (test code = 759) INR (BEAKER) (test 1.14 See_Comment [Automat ed message] code = 370) The system [employer] generated this result transmitted ref erence range: <=5.90. The reference range was not used to int erpret this result as normal/abnormal . RECOMMENDED COUMADIN/WARFARIN INR THERAPY RANGESSTANDARD DOSE: 2.0 - 3.0 Includes: PROPHYLAXIS for venous thrombosis, systemic embolization; TREATMENT for venous thrombosis and/or pulmonary embolus.HIGH RISK: Target INR is 2.5-3.5 for patients with mechanical heart valves.CBC W/PLT COUNT & AUTO [id number] 05:15:40 Test Item Value Reference Range Interpretation [...] 0-1 PERCENT (BEAKER) (test code = 2801) [id number] 02:49:42 Test Item Value Reference Range Interpretation Comments PARTIAL THROMBOPLASTIN TIME 43.7 seconds 22.5-36.0 H (BEAKER) (test code = 760) POCT-GLUCOSE [id number] 22:40:25 Test Item Value Reference Range Interpretation Comments POC-GLUCOSE METER 95 mg/dL 70-110 : TESTED A T [facility] 6720 (BEAKER) (test code = [place], 1538) [address]: [employer] Marble Setter/Techni cory ID = [id number] for Rojelio celso (KielAlba Ford [id number] 18:10:18 Test Item Value Reference Range Interpretation Comments PARTIAL THROMBOPLASTIN TIME 109.1 seconds 22.5-36.0 H (BEAKER) (test code = 760) [id number] 12:21:05 Test Item Value Reference Range Interpretation Comments PARTIAL THROMBOPLASTIN TIME 70.1 seconds 22.5-36.0 H (BEAKER) (test code = 760) POCT-GLUCOSE [id number] 06:54:14 Test Item Value Reference Range Interpretation Comments POC-GLUCOSE METER 93 mg/dL 70-110 : TESTED A T [facility] 6720 (BEAKER) (test code = [place], 1538) [address]: [employer] Marble Setter/Techni cory ID = [id number] for Ela Hilario [id number] 05:14:19 Test Item Value Reference Range Interpretation Comments PARTIAL THROMBOPLASTIN TIME 85.7 seconds 22.5-36.0 H (BEAKER) (test code = 760) PROTHROMBIN TIME/[id number] 05:12:27 Test Item Value Reference Range Interpretation Comments PROTIME (BEAKER) 14.5 seconds 11.9-14.2 H (test code = 759) INR (BEAKER) (test 1.15 See_Comment [Automat ed message] code = 370) The system [employer] generated this result transmitted ref erence [...] S NOT APPLICABLE FOR DIALYSIS PATIEN TS. [employer] Marble Setter ID - SACXDTOQHZR2279-77-63 05:05:36 Test Item Value Reference Range Interpretation Comments MAGNESIUM (BEAKER) (test code = 2.0 mg/dL 1.6-2.6 627) [employer] Setter ID - [id number] 05:05:36 Test Item Value Reference Range Interpretation Comments PHOSPHORUS (BEAKER) (test code = 3.8 mg/dL 2.3-4.7 604) [employer] Setter ID - DBCBC W/PLT COUNT & AUTO [id number] 04:29:42 Test Item Value Reference Range Interpretation [...] PERCENT (BEAKER) (test code = 2801) POCT-GLUCOSE [id number] 00:54:16 Test Item Value Reference Range Interpretation Comments POC-GLUCOSE METER 94 mg/dL 70-110 : TESTED A T [facility] 6720 (BEAKER) (test code = [place], 1538) [address]: [employer]ble Setter/Techni cory ID = [id number] for Ela Hilario PROTHROMBIN TIME/[id number] 09:53:09 Test Item Value Reference Range Interpretation Comments PROTIME (BEAKER) 15.4 seconds 11.9-14.2 H (test code = 759) INR (BEAKER) (test 1.24 See_Comment [Automat ed message] code = 370) The system [employer] generated this result transmitted ref erence range: <=5.90. The reference range was not used to int erpret this result as normal/abnormal . RECOMMENDED COUMADIN/WARFARIN INR THERAPY RANGESSTANDARD DOSE: 2.0 - 3.0 Includes: PROPHYLAXIS for venous thrombosis, systemic embolization; TREATMENT for venous thrombosis and/or pulmonary embolus.HIGH RISK: Target INR is 2.5-3.5 for patients with mechanical heart valves.[id number] 07:06:20 Test Item Value Reference Range Interpretation Comments PHOSPHORUS (BEAKER) (test code = 3.0 mg/dL 2.3-4.7 604) [employer] Setter ID - TRISTIAN WCOMPREHENSIVE METABOLIC [id number] 07:06:19 Test Item Value Reference Range Interpretation [...] S NOT APPLICABLE FOR DIALYSIS PATIEN TS. [employer] And Marble Setter ID - TRISTIAN [id number] 07:06:19 Test Item Value Reference Range Interpretation Comments MAGNESIUM (BEAKER) (test code = 2.0 mg/dL 1.6-2.6 627) [employer] Marble Setter ID - TRISTIAN [id number] 06:30:10 Test Item Value Reference Range Interpretation Comments PARTIAL THROMBOPLASTIN TIME 76.4 seconds 22.5-36.0 H (BEAKER) (test code = 760) CBC W/PLT COUNT & AUTO [id number] 06:21:06 Test Item Value Reference Range Interpretation [...] 0-1 PERCENT (BEAKER) (test code = 2801) [id number] 23:26:41 Test Item Value Reference Range Interpretation Comments PARTIAL THROMBOPLASTIN TIME 81.1 seconds 22.5-36.0 H (BEAKER) (test code = 760) Hemoglobin and zkuufcnvtd9197-28-95 23:26:00 Test Item Value Reference Range Interpretation [...] = 4544-3) JETT (test code = JETT) [employer]ble Setter ID - [id number] ID - [id number] Lab Interpretation Abnormal (test code = 45217-1) [facility] HospitalHEMOGLOBIN AND [id number] 23:26:00 Test Item Value Reference Range Interpretation Comments HEMOGLOBIN (BEAKER) (test code = 11.6 GM/DL 13.7-17.5 L 410) HEMATOCRIT (BEAKER) (test code = 35.4 % 40.1-51.0 L 411) [employer] Setter ID - 6000Operator ID - [id number] 12:04:57 Test Item Value Reference Range Interpretation Comments PARTIAL THROMBOPLASTIN TIME 32.2 seconds 22.5-36.0 (BEAKER) (test code = 760) Platelet [id number] 12:03:08 Test Item Value Reference Range Interpretation Comments Platelets (test code 110 See_Comment L [Autom ated = 777-3) message] The system which generated this result transmit dena reference range : 150 - 450 K/CU MM. The reference range was not u sed to interpret th is result as normal/abnormal . JETT (test code = JETT) [employer]ble Setter ID - [id number] ID - [id number] Lab Interpretation Abnormal (test code = 75239-8) [facility] HospitalPLATELET [id number] 12:03:08 Test Item Value Reference Range Interpretation Comments PLATELET COUNT (BEAKER) (test 110 K/CU MM 150-450 L code = 756) [employer]ble Setter ID - 6000Operator ID - [id number] 05:25:05 Test Item Value Reference Range Interpretation Comments PHOSPHORUS (BEAKER) (test code = 2.2 mg/dL 2.3-4.7 L 604) [employer] Setter ID - PIAYA LCOMPREHENSIVE METABOLIC [id number] 05:25:04 Test Item Value Reference Range Interpretation [...] S NOT APPLICABLE FOR DIALYSIS PATIEN TS. T[employer] And Marble Setter ID - BRANDONENRIKE [id number] 05:25:04 Test Item Value Reference Range Interpretation Comments MAGNESIUM (BEAKER) (test code = 2.0 mg/dL 1.6-2.6 627) [employer] Setter ID - BRANDONENRIKE LCBC W/PLT COUNT & AUTO [id number] 05:07:55 Test Item Value Reference Range Interpretation [...] PERCENT (BEAKER) (test code = 2801) PROTHROMBIN TIME/[id number] 05:04:30 Test Item Value Reference Range Interpretation Comments PROTIME (BEAKER) 16.7 seconds 11.9-14.2 H (test code = 759) INR (BEAKER) (test 1.37 See_Comment [Automat ed message] code = 370) The system [employer] generated this result transmitted ref erence range: <=5.90. The reference range was not used to int erpret this result as normal/abnormal . RECOMMENDED COUMADIN/WARFARIN INR THERAPY RANGESSTANDARD DOSE: 2.0 - 3.0 Includes: PROPHYLAXIS for venous thrombosis, systemic embolization; TREATMENT for venous thrombosis and/or pulmonary embolus.HIGH RISK: Target INR is 2.5-3.5 for patients with mechanical heart valves.Urinalysis Microscopic [id number] 17:49:35 Test Item Value Reference Range Interpretation Comments RBC, UA (test 149 See_Comment [Automated [employer] ssage] code = 60988-6) The system w [facility] generated this result transmit dena reference range : /HPF. The refer ence range was not u sed to interpret th is result as normal/abnormal . WBC, UA (test 72 See_Comment [Automated me ssage] code = 5821-4) The system [facility] generated this result transmit dena reference range : /HPF. The refer ence range was not u sed to interpret th is result as normal/abnormal . Bacteria, UA Occasional (test code = 37923-6) Mucus (test Few code = 8247-9) Crystals, Urine None Seen (test code = 58103-4) JETT (test code [employer] Setter ID - tech = JETT) [facility]URINALYSIS [id number] 17:49:35 Test Item Value Reference Range Interpretation Comments RBC UA (BEAKER) (test code = 519) 149 /HPF WBC UA (BEAKER) (test code = 520) 72 /HPF BACTERIA (BEAKER) (test code = Occasional 517) MUCUS (BEAKER) (test code = 1574) Few CRYSTALS, URINE (BEAKER) (test None Seen code = 1521) Tile And Marble Setter ID - techUrinalysis with Microscopic If [id number] 17:22:23 Test Item Value Reference Range Interpretation Comments Color, UA (test code = Yellow 5778-6) Clarity, UA (test code = Hazy 5767-9) Specific [place], UA (test 1.014 1.001-1.035 code = 5811-5) pH, UA (test code = 6.0 5.0-8.0 5803-2) Protein, UA (test code = 200 mg/dL Negative A 12098-1) Glucose, UA (test code = Negative Negative 365) Ketones, UA (test code = Negative Negative 2514-8) Bilirubin, UA (test code = Negative Negative 31683-5) Blood, UA (test code = Large Negative A 58414-6) Nitrite, UA (test code = Negative Negative 5802-4) Leukocytes, UA (test code Moderate Negative A = 5799-2) Urobilinogen, UA (test 0.2 mg/dL 0.2-1.0 code = 48344-9) Specimen Source (test code = 2795) JETT (test code = JETT) Tile And Marble Setter ID - [auto] Lab Interpretation (test Abnormal code = 93944-1) [facility] [id number] 17:22:23 Test Item Value Reference Range Interpretation [...] = 463) SOURCE(BEAKER) (test code = 2795) Tile And Marble Setter ID - [auto]Hepatic function [id number] 09:19:11 Test Item Value Reference Range Interpretation Comments Protein, Total (test 6.5 See_Comment [Autom ated code = 2885-2) message] The system which generated this result transmit dena reference range : 6.0 - 8.3 gm/dL . The reference range was not u sed to interpret th is result as normal/abnormal . Albumin (test code = 3.8 g/dL 3.5-5.0 57439-6) Total Bilirubin (test 1.5 mg/dL 0.2-1.2 H code = 1974-2) Bilirubin, Direct 0.5 mg/dL 0.1-0.5 (test code = 1968-7) Alkaline Phosphatase 60 U/L 40-150 (test code = 6768-6) AST (test code = 17 U/L 5-34 1920-8) ALT (test code = 12 U/L 6-55 1742-6) JETT (test code = JETT) Tile And Marble Setter ID - PIAYA L Lab Interpretation Abnormal (test code = 00348-8) [facility] [id number] 09:19:11 Test Item Value Reference Range Interpretation [...] (test code = 12 U/L 6-55 347) Tile And Marble Setter ID - PIAYA LBasic metabolic [id number] 09:19:10 Test Item Value Reference Range Interpretation Comments Sodium (test code = 140 meq/L 131-890 4008-2) Potassium (test code = 3.9 meq/L 3.5-5.1 2823-3) Chloride (test code = 105 meq/L 98-107 2075-0) CO2 (test code = 28 meq/L 22-29 2028-9) BUN (test code = 18 mg/dL 7-21 3094-0) Creatinine (test code 1.12 mg/dL 0.57-1.25 = 2160-0) Glucose (test code = 142 mg/dL 70-105 H 2345-7) Calcium (test code = 8.9 mg/dL 8.4-10.2 85078-5) EGFR (test code = 62 mL/min/1.73 [place] [address]-3) NOT ACCURATE CREATININE CLEARANCE IN PREDICTING GLOMERULAR FILTRATION RATE . ESTIMATED GFR I S NOT APPLICABLE FOR DIALYSIS PATIENTS. JETT (test code = JETT) Tile And Marble Setter ID - PIAYA L Lab Interpretation Abnormal (test code = 67899-8) [facility] METABOLIC [id number] 09:19:10 Test Item Value Reference Range Interpretation [...] S NOT APPLICABLE FOR DIALYSIS PATIEN TS. Tile And Marble Setter ID - PIAYA LPROTHROMBIN TIME/[id number] 09:10:27 Test Item Value Reference Range Interpretation Comments PROTIME (BEAKER) 22.4 seconds 11.9-14.2 H (test code = 759) INR (BEAKER) (test 1.99 See_Comment [Automat ed message] code = 370) The system [employer] generated this result transmitted ref erence range: <=5.90. The reference range was not used to int erpret this result as normal/abnormal . RECOMMENDED COUMADIN/WARFARIN INR THERAPY RANGESSTANDARD DOSE: 2.0 - 3.0 Includes: PROPHYLAXIS for venous thrombosis, systemic embolization; TREATMENT for venous thrombosis and/or pulmonary embolus.HIGH RISK: Target INR is 2.5-3.5 for patients with mechanical heart valves.CBC W/PLT COUNT & AUTO [id number] 08:59:10 Test Item Value Reference Range Interpretation [...] PERCENT (BEAKER) (test code = 2801) BLOOD [id number] 10:00:00 Test Item Value Reference Range Interpretation Comments CULTURE (BEAKER) (test No growth in 5 days code = 1095) BLOOD [id number] 10:00:00 Test Item Value Reference Range Interpretation Comments CULTURE (BEAKER) (test No growth in 5 days code = 1095) CT, CTA, [id number] 09:40:00Unlisted Reason for Exam - Click Yes and Enter Reason Below->YesUnlisted Reason for Exam->s/p TAVR and SAVR with gradient [facility] CENTERName: TREV STONE : 1935 [...] dictated regarding the non-vascular findings by the Outsole Rounder Radiologist. Major vascular findings were discussed with Dr. Valladares at the time of dictation. Signed: Edwardo [place] MDReport Verified Date/Time: 01/02/2020 16:43:17 Reading Location: [place] [address] [address] Reading Room COMPREHENSIVE METABOLIC [id number] 07:24:00 Test Item Value Reference Range Interpretation [...] S NOT APPLICABLE FOR DIALYSIS PATIEN TS. Tile And Marble Setter ID Justine QUINCY [id number] 07:24:00 Test Item Value Reference Range Interpretation Comments MAGNESIUM (BEAKER) (test code = 1.8 mg/dL 1.6-2.6 627) Tile And Marble Setter ID Justine QUINCY [id number] 07:24:00 Test Item Value Reference Range Interpretation Comments PHOSPHORUS (BEAKER) (test code = 2.7 mg/dL 2.3-4.7 604) Tile And Marble Setter ID Justine QUINCY FPROTHROMBIN TIME/[id number] 07:00:00 Test Item Value Reference Range Interpretation [...] valves.While on warfarin.CBC W/PLT COUNT & AUTO [id number] 06:56:00 Test Item Value Reference Range Interpretation [...] PERCENT (BEAKER) (test code = 2801) PROTHROMBIN [id number] 18:01:00 Test Item Value Reference Range Interpretation [...] is 2.5-3.5 for patients wiht mechanical heart valves.[id number] 06:38:00 Test Item Value Reference Range Interpretation Comments MAGNESIUM (BEAKER) (test code = 1.8 mg/dL 1.6-2.6 627) Tile And Marble Setter ID - EDASICOMPREHENSIVE METABOLIC [id number] 06:38:00 Test Item Value Reference Range Interpretation [...] S NOT APPLICABLE FOR DIALYSIS PATIEN TS. Tile And Marble Setter ID - [id number] 06:38:00 Test Item Value Reference Range Interpretation Comments PHOSPHORUS (BEAKER) (test code = 2.7 mg/dL 2.3-4.7 604) Tile And Marble Setter ID - EDASICBC W/PLT COUNT & AUTO [id number] 06:03:00 Test Item Value Reference Range Interpretation [...] PERCENT (BEAKER) (test code = 2801) MRSA [id number] 15:50:00 Test Item Value Reference Range Interpretation Comments CULTURE (BEAKER) (test code No MRSA isolated = 1095) FL, ESOPH, SWALLOW FUNCTION, WITH CINE OR [id number] 15:38:00D/c NGT prior to the study and then attemptReason for exam:->dysphagea [facility] 1935 Sex: MFINAL REPORT Modified barium swallow exam with speech pathology service CLINICALHISTORY: dysphagia IMPRESSION: Please see the speech pathology service report for details. Barium contrast of multiple consistencies is given to the patient to swallow. Fluoroscopic observation is performed during swallowing. Fluoro time: 120 minutes Number of images: 1 Signed: Scott Wilkinson Verified Date/Time: 01/01/2020 15:38:45 Reading Location: [facility] B1 C013X Ortho Consult Reading Room [id number] 06:21:00 Test Item Value Reference Range Interpretation Comments MAGNESIUM (BEAKER) (test code = 1.9 mg/dL 1.6-2.6 627) Tile And Marble Setter ID - edasiCOMPREHENSIVE METABOLIC [id number] 06:21:00 Test Item Value Reference Range Interpretation [...] S NOT APPLICABLE FOR DIALYSIS PATIEN TS. Tile And Marble Setter ID - [id number] 06:21:00 Test Item Value Reference Range Interpretation Comments PHOSPHORUS (BEAKER) (test code = 1.8 mg/dL 2.3-4.7 L 604) Tile And Marble Setter ID - edasiCBC W/PLT COUNT & AUTO [id number] 05:52:00 Test Item Value Reference Range Interpretation [...] PERCENT (BEAKER) (test code = 2801) POCT-GLUCOSE [id number] 19:08:00 Test Item Value Reference Range Interpretation Comments POC-GLUCOSE METER 73 mg/dL 70-110 : TESTED A T [facility] 6720 (BEAKER) (test code = [facility], 1538) [address]: Tile And Marble Setter/Techni cory ID = [id number] for ALEXANDRO EPSTEIN POCT-GLUCOSE [id number] 14:49:00 Test Item Value Reference Range Interpretation Comments POC-GLUCOSE METER 74 mg/dL 70-110 : TESTED A T [facility] 6720 (BEAKER) (test code = [facility], 1538) [address]: Tile And Marble Setter/Techni cory ID = [id number] for BRETT-STAFFOR TRELL Chauhan MRSA [id number] 12:26:00 Test Item Value Reference Range Interpretation Comments CULTURE (BEAKER) (test code No MRSA isolated = 1095) SPUTUM CULTURE + GRAM [id number] 12:26:00 Test Item Value Reference Range Interpretation Comments CULTURE (BEAKER) 1+ Normal respiratory (test code = 1095) regina present GRAM STAIN RESULT 4+ WBCs (BEAKER) (test code = 1123) GRAM STAIN RESULT 0-5 epithelial cells (BEAKER) (test code = 45468) GRAM STAIN RESULT <1+ gram positive cocci (BEAKER) (test code = in pairs and clusters 78363) COMPREHENSIVE METABOLIC [id number] 06:48:00 Test Item Value Reference Range Interpretation [...] S NOT APPLICABLE FOR DIALYSIS PATIEN TS. Tile And Marble Setter ID - MERON [id number] 06:48:00 Test Item Value Reference Range Interpretation Comments MAGNESIUM (BEAKER) (test code = 2.0 mg/dL 1.6-2.6 627) Tile And Marble Setter ID - MERON [id number] 06:48:00 Test Item Value Reference Range Interpretation Comments PHOSPHORUS (BEAKER) (test code = 2.0 mg/dL 2.3-4.7 L 604) Tile And Marble Setter ID - MERON JASEN/S, RENAL, [id number] 06:39:00Reason for exam:- >worsening kidney function/ metabolic acidosis [facility] CENTERName: TREV STONE : 1935 [...] ultrasound appearance of the kidneys. Signed: Gerry Sinhaort Verified Date/Time: 12/31/2019 06:39:51 CBC W/PLT COUNT & AUTO [id number] 06:11:00 Test Item Value Reference Range Interpretation [...] = 2801) RAD, CHEST, 1 VIEW, NON [id number] 01:43:00Reason for exam:->respiratory failureShould this be performed at the bedside?->Yes [facility] 1935 Sex: MFINAL [...] 12/31/2019 01:43:07 CBC W/PLT COUNT & AUTO [id number] 18:42:00 Test Item Value Reference Range Interpretation [...] (BEAKER) (test code = 2801) VANCOMYCIN LEVEL, [id number] 09:49:00 Test Item Value Reference Range Interpretation Comments VANCOMYCIN TROUGH (BEAKER) (test 9.6 ug/mL 10.0-20.0 L code = 522) Tile And Marble Setter ID - SUHA CCOMPREHENSIVE METABOLIC [id number] 05:31:00 Test Item Value Reference Range Interpretation [...] S NOT APPLICABLE FOR DIALYSIS PATIEN TS. Tile And Marble Setter ID - MERON [id number] 05:13:00 Test Item Value Reference Range Interpretation Comments MAGNESIUM (BEAKER) (test code = 1.6 mg/dL 1.6-2.6 627) Tile And Marble Setter ID - MERON [id number] 05:13:00 Test Item Value Reference Range Interpretation Comments PHOSPHORUS (BEAKER) (test code = 2.6 mg/dL 2.3-4.7 604) Tile And Marble Setter ID - MERON LCBC W/PLT COUNT & AUTO [id number] 04:43:00 Test Item Value Reference Range Interpretation Comments WHITE BLOOD CELL COUNT 19.3 K/ L 3.5-10.5 H (BEAKER) (test code = 775) RED BLOOD CELL COUNT 3.87 M/ L 4.63-6.08 L (BEAKER) (test code = 761) HEMOGLOBIN (BEAKER) 11.7 GM/DL 13.7-17.5 L Discorda nt HGB (test code = 410) results co mpared to previous result s; clinical correl ation required.[id number] HEMATOCRIT (BEAKER) 36.4 % 40.1-51.0 L (test [...] (BEAKER) (test code = 2801) BLOOD GAS, [id number] 04:36:00 Test Item Value Reference Range Interpretation [...] (BEAKER) (test code = 1819) 50.0 CORTISOL,60 [id number] 03:53:00 Test Item Value Reference Range Interpretation [...] Pharmacy Policy and Procedure Section on The Source.Tile And Marble Setter ID - PIAYA LCORTISOL,30 MIN 2019-12-30 03:52:00 [...] Pharmacy Policy and Procedure Section on The Source.Tile And Marble Setter ID - PIAYA LRAD, CHEST, 1 VIEW, NON [id number] 03:30:00Reason for exam:->respiratory failureShould this be performed at the bedside?->Yes [facility] 1935 Sex: MFINAL [...] Anastasiia Aponte MDReport Verified Date/Time: 12/30/2019 03:30:42 CORTISOL,[id number] 01:31:00 Test Item Value Reference Range Interpretation Comments CORTISOL, BASELINE (DAVE) (test 14.1 ug/dL code = 1803) ACTH [...] a study by Julia et al (ATUL 2000,283(8):5674-45), the ACTH Stimulation Test provides important prognostic [...] Pharmacy Policy and Procedure Section on The Source.Tile And Marble Setter ID - PIAYA LCREATININE, RANDOM [id number] 19:52:00 Test Item Value Reference Range Interpretation Comments CREATININE URINE (BEAKER) (test 310.8 mg/dL code = 375) Reference Range: No NormalsOperator ID - DBSODIUM, RANDOM [id number] 19:52:00 Test Item Value Reference Range Interpretation Comments SODIUM URINE (BEAKER) (test code = < meq/L 243) Reference Range: No NormalsOperator ID - DBPOCT-GLUCOSE [id number] 18:14:00 Test Item Value Reference Range Interpretation Comments POC-GLUCOSE METER 105 mg/dL 70-110 : TESTED A T [facility] 6720 (BEAKER) (test code = [address] [place], 1538) [address]: Tile And Marble Setter/Techni cory ID = [id number] for Laura Bauman BASIC METABOLIC [id number] 16:24:00 Test Item Value Reference Range Interpretation [...] S NOT APPLICABLE FOR DIALYSIS PATIEN TS. Tile And Marble Setter ID - [id number] 16:23:00 Test Item Value Reference Range Interpretation Comments MAGNESIUM (BEAKER) (test code = 1.6 mg/dL 1.6-2.6 627) Tile And Marble Setter ID - DBBLOOD GAS, [id number] 16:09:00 Test Item Value Reference Range Interpretation [...] = 1819) 50.0 RAD, ABDOMEN/KUB, 1 VIEW [id number] 12:40:00Reason for exam:->NGT placement [facility] 1935 Sex: MFINAL [...] spine. Calcifications along the diaphragm. Signed: Gualberto Levymidstate medical center Verified Date/Time: 12/29/2019 12:40:58 Reading Location: [facility] B1 C013Y CT Body Reading Room B-TYPE NATRIURETIC FACTOR (BNP)2019-12-29 11:35:00 Test Item Value Reference Range Interpretation Comments B-TYPE NATRIURETIC PEPTIDE (BEAKER) 193 pg/mL 0-100 H (test code = 700) Tile And Marble Setter ID - SUHA CLACTIC ACID, [id number] 11:25:00 Test Item Value Reference Range Interpretation Comments LACTATE BLOOD ARTERIAL (2) 3.3 mmol/L 0.5-2.2 H (BEAKER) (test code = 2874) Tile And Marble Setter ID - SUHA CLACTIC ACID, [id number] 07:06:00 Test Item Value Reference Range Interpretation Comments LACTATE BLOOD VENOUS 3.49 mmol/L 0.50-2.20 H Specime n slightly (2) (BEAKER) (test hemolyzed code = 2872) Tile And Marble Setter ID - EDASIURINALYSIS W/ REFLEX URINE [id number] 06:56:00 Test Item Value Reference Range Interpretation [...] YEAST (BEAKER) (test code = Many 1585) SOURCE(DAVE) (test code = 2795) Tile And Marble Setter ID - [auto]Tile And Marble Setter ID - techPROTHROMBIN TIME/[id number] 06:54:00 Test Item Value Reference Range Interpretation Comments PROTIME (DAVE) (test code = 13.8 seconds 11.9-14.2 759) INR (DAVE) (test code = 370) 1.09 <=5.90 Effective 08/02/2018: PT Reference Range ChangeNew: 11.9-14.2 Previous: 11.7- 14.7RECOMMENDED COUMADIN/WARFARIN INR THERAPY RANGESSTANDARD DOSE: 2.0-3.0 Includes: PROPHYLAXIS for venous thrombosis, systemic embolization; TREATMENT for venous thrombosis and/or pulmonary embolus.HIGH RISK: Target INR is 2.5-3.5 for patients wiht mechanical heart valves.[id number] 06:54:00 Test Item Value Reference Range Interpretation Comments PARTIAL THROMBOPLASTIN TIME 30.3 seconds 22.5-36.0 (DAVE) (test code = 760) RAD, CHEST, 1 VIEW, NON [id number] 06:51:00Reason for exam:->ETT placementShould this be performed at the bedside?->Yes [facility] CENTERName: TREV STONE : 1935 [...] Verified Date/Time: 12/29/2019 06:51:17 TSH/FREE T4 IF [id number] 06:47:00 Test Item Value Reference Range Interpretation Comments THYROID STIMULATING HORMONE 1.830 uIU/mL 0.350-4.940 (BEAKER) (test code = 772) Tile And Marble Setter ID - RADHAASITROPONIN [id number] 06:40:00 Test Item Value Reference Range Interpretation [...] failure, acidosis, acute neurological disease, and persistent tachyarrhythmia.Tile And Marble Setter ID - EDASITROPONIN [id number] 06:36:00 Test Item Value Reference Range Interpretation [...] failure, acidosis, acute neurological disease, and persistent tachyarrhythmia.Tile And Marble Setter ID - EDASICBC W/PLT COUNT & AUTO [id number] 04:56:00 Test Item Value Reference Range Interpretation [...] PERCENT (BEAKER) (test code = 2801) TROPONIN [id number] 04:43:00 Test Item Value Reference Range Interpretation [...] failure, acidosis, acute neurological disease, and persistent tachyarrhythmia.Tile And Marble Setter ID - EDASICOMPREHENSIVE METABOLIC [id number] 04:37:00 Test Item Value Reference Range Interpretation [...] S NOT APPLICABLE FOR DIALYSIS PATIEN TS. Tile And Marble Setter ID - [id number] 04:37:00 Test Item Value Reference Range Interpretation Comments MAGNESIUM (BEAKER) (test code = 1.7 mg/dL 1.6-2.6 627) Tile And Marble Setter ID - [id number] 04:37:00 Test Item Value Reference Range Interpretation Comments PHOSPHORUS (BEAKER) (test code = 3.7 mg/dL 2.3-4.7 604) Tile And Marble Setter ID - RADHAASIRAD, CHEST, 1 VIEW, NON [id number] 04:27:00Reason for exam:->ETT positionShould this be performed at the bedside?->Yes [facility] 1935 Sex: MFINAL REPORT CLINICAL INDICATION: Support lines. Comparison: 12/28/2019 The tip of an endotracheal tube is in good position above the kira at the level of the midclavicular heads.The cardiomediastinal contours are stable. Bilateral parenchymal and pleural opacities are unchanged. There is no pneumothorax. Signed: Gerry Sinha MDReport Verified Date/Time: 12/29/2019 04:27:00 -COV2/RT-PCR ([facility])2019-12-29 04:15:00 Test Item Value Reference Range Interpretation Comments SARS-COV2/RT-PCR (test Negative Not Detected, Negative, code = 7343018) See external report for linked test SARS-COV-2 PERFORMING LAB [facility] ERROL (test code = 9622050) Negative result for this test determines that [...] of the Act.Fact Sheet for Healthcare Prov iders:https://www.[employer]/sites/default/files/product/documents/Fact_Sheet_HC _Lvqtteddi_Cvmc_TEJR-ZfV-2.pdfFact Sheet for Healthcare Patients:https://www.[employer]/sites/default/files/product/docume nts/Dbvs_Kbgjm_Bdhvkeyy_Nteh_NTVF-CkC-3.pdfPerforming Laboratory:[facility], [place] [address]QKIR-LHVRS GASES, [id number] 04:14:00 Test Item Value Reference Range Interpretation Comments TEMP, CELSIUS-POC 98.5 (BEAKER) (test code = 1834) FIO2-POC (BEAKER) 60 (test code = 1835) PH, ARTERIAL-POC 7.285 7.350-7.450 L (BEAKER) (test code = 1836) PCO2, ARTERIAL-POC 53.5 mm Hg 35.0-45.0 H (AKER) (test code = 1837) PO2, ARTERIAL-POC 66.0 mm Hg 80.0-90.0 L (AKER) (test code = 1838) SO2, ARTERIAL-POC 90.0 % 96.0-97.0 L (AKER) (test code = 1839) HCO3, ARTERIAL-POC 25.5 meq/L 21.0-29.0 ([facility]) (test code = 1840) BASE EXCESS, -1.0 meq/L -2.0-3.0 : TESTED AT [place] [address] ARTERIAL-POC [facility], [facility] (test code [address]: = 1841) Tile And Marble Setter/Techni ocry ID = [id number] for DONNELL AVILES [id number] 04:14:00 Test Item Value Reference Range Interpretation Comments POC-SODIUM ([facility]) 141 meq/L 135-148 : TESTED AT [place] [address] (test code = 1542) [facility], [address]: Tile And Marble Setter/Techni cory ID = [id number] for DONNELL GERMAIN [id number] 04:14:00 Test Item Value Reference Range Interpretation Comments POC-POTASSIUM 3.6 meq/L 3.6-5.5 : TESTED AT [place] [address] [facility] (test code [facility], = 1540) [address]: Tile And Marble Setter/Techni cory ID = [id number] for DONNELL GERMAIN [id number] 04:14:00 Test Item Value Reference Range Interpretation Comments POC-HEMOGLOBIN 16.3 g/dL 13.0-16.8 : TESTED AT [place] [address] ([facility]) (test code [facility], = 1856) [address]: Tile And Marble Setter/Techni cory ID = [id number] for DONNELL GERMAIN [id number] 04:14:00 Test Item Value Reference Range Interpretation Comments POC-HEMATOCRIT 48 % 40-50 : Tile And Marble Setter/Te chnician ID = ([facility]) (test code = 517275 for DONNELL GERMAIN 1857) POCT-CALCIUM [id number] 04:14:00 Test Item Value Reference Range Interpretation Comments POC-CALCIUM IONIZED 1.18 mmol/L 1.12-1.27 : TESTED AT [facility] (BEAKER) (test code = [address]) [place], [address]: Tile And Marble Setter/Techni cory ID = [id number] for DONNELL GERMAIN [id number] 04:14:00 Test Item Value Reference Range Interpretation Comments POC-GLUCOSE (BEAKER) 145 mg/dL 70-110 H : TESTE D AT [facility] 6720 (test code = 1855) [place], [address]: Tile And Marble Setter/Techni cory ID = [id number] for DONNELL GERMAIN CBC W/PLT COUNT & AUTO [id number] 23:29:00 Test Item Value Reference Range Interpretation [...] (BEAKER) (test code = 2801) BASIC METABOLIC [id number] 23:07:00 Test Item Value Reference Range Interpretation [...] S NOT APPLICABLE FOR DIALYSIS PATIEN TS. Tile And Marble Setter ID - DBRAD, CHEST, 1 VIEW, NON [id number] 22:49:00Reason for exam:->pre-anesthesiaShould this be performed at the bedside?->Yes [facility] CENTERName: TREV STONE : 1935 [...] to prior asbestos exposure. Signed: Theresa Cotter MDRmidstate medical center Verified Date/Time: 12/28/2019 22:49:33 Reading Location: [address] Reading Room . [facility] ([address]2019-09-02 11:55:00 Test Item Value Reference Range Interpretation Comments NA (test code = 139 mmol/L 135-145 5673167633) K (test code = 4.1 mmol/L 3.5-5 6503350499) CL (test code = 104 mmol/L 98-108 0451613375) CO2 TOTAL (test code = 29 mmol/L 23-31 3656394857) AGAP (test code = 2-16 9503590958) BUN (test code = 21 mg/dL 7-23 0149911161) GLUCOSE (test code = 99 mg/dL 70-110 2689518017) CREATININE (test code 0.86 mg/dL 0.6-1.25 = 4265442039) TOTAL BILI (test code 0.7 mg/dL 0.1-1.1 = 2292887589) CALCIUM (test code = 9.3 mg/dL 8.6-10.6 1018899186) T PROTEIN (test code = 7.2 g/dL 6.3-8.2 7413091893) ALBUMIN (test code = 4.2 g/dL 3.5-5 5838701304) ALK PHOS (test code = 75 U/L 34-122 7165064082) ALTv (test code = 28 U/L 5-50 1742-6) AST(SGOT) (test code = 33 U/L 13-40 6598954969) eGFR Calculation mL/min/1.73m2 (Non-) (test code = 9308508473) eGFR Calculation mL/min/1.73m2 () (test code = 9257851923) JETT (test code = JETT) Association of [...] or urine or abnormalities in imaging tests). [facility] 11:53:00 Test Item Value Reference Range Interpretation Comments APPEARANCE (test code = Clear Clear 6293080460) COLOR (test code = Yellow Yellow 8530228456) PH (test code = 4.8-8.0 1546347546) SP GRAVITY (test code = 1.003-1.030 8285935526) GLU U QUAL (test code = Normal Normal 4704518935) BLOOD (test code = 1+ Negative A 2014525368) KETONES (test code = Negative Negative 2734102004) PROTEIN (test code = Negative Negative 2887-8) UROBILIN (test code = Normal Normal 1914524651) BILIRUBIN (test code = Negative Negative 0237393067) NITRITE (test code = Negative Negative 6006686394) LEUK ROLAN (test code = 75/uL Negative A 4199749654) RBC/HPF (test code = See_Comment H [Autom ated message] 5626159666) The system [employer] generated this result transmitted ref erence range: 0 - 3 HP F. The reference range was not used to int erpret this result as normal/abnormal . WBC/HPF (test code = See_Comment H [Autom ated message] [id number]) The system [employer] generated this result transmitted ref erence range: 0 - 5 HP F. The reference range was not used to int erpret this result as normal/abnormal . BACTERIA (test code = Few Negative A 3033715892) MUCOUS (test code = Slight Negative LPF A 4892167411) SQ EPITH (test code = <1 HPF 4173499057) TRANS EPI (test code = <1 See_Comment [Aut omated message] 8688237358) The system [employer] generated this result transmitted ref erence range: <=1 HPF. The reference range was not used to int erpret this result as normal/abnormal . NOE EPITH (test code = <1 See_Comment [Aut omated message] 8524075168) The system [employer] generated this result transmitted ref erence range: <=1 HPF. The reference range was not used to int erpret this result as normal/abnormal . Lab Interpretation (test Abnormal code = 22265-8) [facility] WITH [id number] 11:52:00 Test Item Value Reference Range Interpretation Comments WBC (test code = See_Comment [Automated message] 6690-2) The system [employer] generated this result transmitted ref erence range: 4.20 - 1 0.70 10*3/?L. The re ference range was not u sed to interpret this result as normal/abnor mal. RBC (test code = See_Comment [Automated message] 789-8) The system [employer] generated this result transmitted ref erence [...] RDW-SD (test code 41.1 fL 38.5-51.6 = 92106-5) RDW-CV (test code 12.1 % 12.1-15.4 = 788-0) PLT (test code = See_Comment [Automated message] 777-3) The system [employer] generated this result transmitted ref erence range: 150 - 32 8 10*3/?L. The re ference range was not u sed to interpret this result as normal/abnor mal. MPV (test code = 10.8 fL 9.8-13 61339-9) NRBC/100 WBC (test See_Comment [Automat ed message] code = 9780354679) The [employer] which generated this result transmitted ref erence range: 0.0 - 10 .0 /100 WBCs. The refer ence range was not u sed to interpret this result as normal/abnor mal. NRBC x10^3 (test <0.01 See_Comment [Automated message] code = 6861827904) The syste m which generated this result transmitted ref erence range: 10*3/?L. The reference range was not used to interpr et this result as normal/abnormal . GRAN MAT (NEUT) % 44.8 % (test code = 770-8) IMM GRAN % (test 0.40 % code = 0062102147) LYMPH % (test code 42.0 % = 736-9) MONO % (test code 6.9 % = 5905-5) EOS % (test code = 5.0 % 713-8) BASO % (test code 0.9 % = 706-2) GRAN MAT 3.14 10*3/uL 1.99-6.95 x10^3(ANC) (test code = 8563091636) IMM GRAN x10^3 0.03 10*3/uL 0-0.06 (test code = 0553477064) LYMPH x10^3 (test 2.94 10*3/uL 1.09-3.23 code = 731-0) MONO x10^3 (test 0.48 10*3/uL 0.36-1.02 code = 742-7) EOS x10^3 (test 0.35 10*3/uL 0.06-0.53 code = 711-2) BASO x10^3 (test 0.06 10*3/uL 0.01-0.09 code = 704-7) [facility] URINALYSIS, [id number] 17:34:00 Test Item Value Reference Range Interpretation [...] 3267) Lab Interpretation (test code Normal = 90955-9) [facility] URINALYSIS, [id number] 17:34:00 Test Item Value Reference Range Interpretation [...] 3267) Lab Interpretation (test code Normal = 95690-6) [facility] URINALYSIS, [id number] 17:09:00 Test Item Value Reference Range Interpretation [...] U APPEAR (test code = clear 3267) [facility] [id number] 17:09:00 Test Item Value Reference Range Interpretation [...] U APPEAR (test code = clear 3267) [facility]"
--- NOTE | 2022-08-24 17:53 | EDPHYS ---
Physician Documentation [facility] Name: Rusty Yarbrough Age: 87 yrs Sex: Male : 1935 Arrival Date: 08/24/2022 Time: 16:29 Bed 4 Private MD: ED Physician Sathish Mckeon HPI: 08/24 17:21 This 87 yrs old Male presents to ER via EMS with complaints of Sore Throat, kb Decreased Appetite. 17:21 The patient presents with sore throat. The patient describes throat pain as constant. kb Onset: The symptoms/episode began/occurred yesterday. Severity of symptoms: At their worst the symptoms were mild, moderate, in the emergency department the symptoms are unchanged. Modifying factors: The symptoms are alleviated by nothing, the symptoms are aggravated by swallowing, Patient's oral intake status: limited fluid intake, limited food intake. Associated signs and symptoms: Pertinent positives: Sore throat Pertinent negatives cough, fever, flu-like symptoms. The patient has not experienced similar symptoms in the past. The patient has not recently seen a physician. Pt reports sore throat since yesterday. was seen last night for similar symptoms and diagnosed with covid. Historical: - Allergies: 16:34 Benadryl; ll1 16:34 Enalapril; ll1 - PMHx: 16:34 "heart valve replacement"; Aortic Stenosis; Ataxia; acute, resolved now; bleeding ll1 ulcers; CAD; Cerebrovascular accident; COPD; dyspnea; fatigue; Hyperlipidemia; Hypertension; Hypertensive disorder; Hypokalemia; melena; Myocardial infarction; syncope; Tachycardia; TIA; Vertigo; - Immunization history:: Adult Immunizations up to date. - Social history:: Smoking status: Patient denies any tobacco usage or history of. ROS: 17:21 Constitutional: Negative for fever, chills, and weight loss, Respiratory: Negative for kb shortness of breath, cough, wheezing, and pleuritic chest pain, Abdomen/GI: Negative for abdominal pain, nausea, vomiting, diarrhea, and constipation. 17:21 ENT: Positive for sore throat. 17:21 All other systems are negative. Exam: 17:21 Constitutional: This is a well developed, well nourished patient who is awake, alert, kb and in no acute distress. Head/Face: Normocephalic, atraumatic. ENT: Moist Mucous membranes Cardiovascular: Regular rate and rhythm with a normal S1 and S2. No gallops, murmurs, or rubs. No pulse deficits. Respiratory: Respirations even and unlabored. No increased work of breathing. Talking in full sentences Abdomen/GI: Soft, non-tender. No distention Skin: Warm, dry with normal turgor. Normal color. MS/ Extremity: Pulses equal, no cyanosis. Neurovascular intact. Full, normal range of motion. Neuro: Awake and alert, GCS 15, oriented to person, place, time, and situation. Moves all extremities. Normal gait. Vital Signs: 16:31 BP 114 / 66; Pulse 90; Resp 17; Temp 98.9(O); Pulse Ox 95% on R/A; Pain 3/10; ll1 17:41 BP 126 / 72; Pulse 84; Resp 16; Pulse Ox 97% ; bp 18:22 BP 134 / 69; Pulse 81; Resp 16; Pulse Ox 94% on R/A; cm10 16:31 Pain Scale: Adult ll1 MDM: 16:31 Patient medically screened. 17:22 Differential diagnosis: flu, covid, strep, tonsillitis. Data reviewed: vital signs, nurses notes. 17:53 Counseling: I had a detailed discussion with the patient and/or guardian regarding: the kb historical points, exam findings, and any diagnostic results supporting the discharge/admit diagnosis, lab results, the need for outpatient follow up, a family practitioner, to return to the emergency department if symptoms worsen or persist or if there are any questions or concerns that arise at home. 08/24 16:37 Order name: Flu; Complete Time: 17:53 08/24 16:37 Order name: Strep 08/24 16:38 Order name: SARS-COV-2 RT PCR; Complete Time: 17:53 08/24 17:10 Order name: Throat Culture EDMS Administered Medications: No medications were administered Disposition Summary: 08/24/22 17:53 Discharge Ordered Location: Home Condition: Stable Diagnosis - SARS-associated coronavirus as the cause of diseases classified elsewhere kb Followup: kb - With: Emergency Department - When: As needed - Reason: Worsening of condition Followup: kb - With: Private Physician - When: 2 - 3 days - Reason: Recheck today's complaints, Continuance of care, Re-evaluation by your physician Discharge Instructions: - Discharge Summary Sheet kb - COVID-19 kb - Viral Illness, Adult kb Forms: - Medication Reconciliation Form kb - Thank You Letter kb - Antibiotic Education kb - Prescription Opioid Use kb Signatures: Dispatcher [employer] Clementine Chilel, REGULATORY COMPLIANCE DIRECTOR-C LEANDRA-Lloyd Sharma, RN RN ll1
--- NOTE | 2022-08-24 17:53 | ER ---
Nurse's Notes [facility] Name: Rusty Yarbrough Age: 87 yrs Sex: Male : 1935 Arrival Date: 08/24/2022 Time: 16:29 Bed 4 Private MD: Diagnosis: SARS-associated coronavirus as the cause of diseases classified elsewhere Presentation: 08/24 16:31 Chief complaint: Patient states: Sore throat started today. diagnosed with covid ll1 yesterday. EMS states: [facility]. Daughter called EMS for sore throat and not eating well. Coronavirus screen: Client denies travel out of the [place] in the last 14 days. fatigue, sore throat. Ebola Screen: Patient denies travel to an Ebola-affected area in the 21 days before illness onset. Initial Sepsis Screen: Does the patient meet any 2 criteria? No. Patient's initial sepsis screen is negative. Does the patient have a suspected source of infection? Yes: Other: sore throat. Risk Assessment: Do you want to hurt yourself or someone else? Patient reports no desire to harm self or others. Onset of symptoms was August 24, 2022. 16:31 Method Of Arrival: EMS ll1 16:31 Acuity: GAYLE 3 ll1 Triage Assessment: 16:34 General: Appears in no apparent distress. Behavior is calm, cooperative, appropriate ll1 for age. Pain: Complains of pain in throat Quality of pain is described as aching. EENT: Reports pain when swallowing. Neuro: No deficits noted. GI: Reports no appetite. Historical: - Allergies: 16:34 Benadryl; ll1 16:34 Enalapril; ll1 - PMHx: 16:34 "heart valve replacement"; Aortic Stenosis; Ataxia; acute, resolved now; bleeding ll1 ulcers; CAD; Cerebrovascular accident; COPD; dyspnea; fatigue; Hyperlipidemia; Hypertension; Hypertensive disorder; Hypokalemia; melena; Myocardial infarction; syncope; Tachycardia; TIA; Vertigo; - Immunization history:: Adult Immunizations up to date. - Social history:: Smoking status: Patient denies any tobacco usage or history of. Screenin:07 [facility] ED Fall Risk Assessment (Adult) History of falling in the last 3 months, cm10 including since admission No falls in past 3 months (0 pts) Confusion or Disorientation No (0 pts) Intoxicated or Sedated No (0 pts) Impaired Gait No (0 pts) Mobility Assist Device Used No (0 pt) Altered Elimination No (0 pt) Score/Fall Risk Level 0 - 2 = Low Risk Oriented to surroundings, Maintained a safe environment, Educated pt \\T\\ family on fall prevention, incl call for assistance when getting out of bed. Abuse screen: Denies threats or abuse. Denies injuries from another. 17:07 Nutritional screening: No deficits noted. Tuberculosis screening: No symptoms or risk cm10 factors identified. Assessment: 17:06 General: Appears in no apparent distress. comfortable, Behavior is calm, cooperative. cm10 Neuro: No deficits noted. Level of Consciousness is awake, alert, Oriented to person, place, time, situation. Respiratory: No deficits noted. Airway is patent Respiratory effort is even, unlabored, Respiratory pattern is regular, symmetrical, Breath sounds are clear bilaterally. EENT: Throat is clear is reddened. 17:41 Reassessment: No changes from previously documented assessment. Patient is alert, bp oriented x 3, equal unlabored respirations, skin warm/dry/pink. Vital Signs: 16:31 BP 114 / 66; Pulse 90; Resp 17; Temp 98.9(O); Pulse Ox 95% on R/A; Pain 3/10; ll1 17:41 BP 126 / 72; Pulse 84; Resp 16; Pulse Ox 97% ; bp 18:22 BP 134 / 69; Pulse 81; Resp 16; Pulse Ox 94% on R/A; cm10 16:31 Pain Scale: Adult ll1 ED Course: 16:30 Patient arrived in ED. ll1 16:31 Clementine Ruggiero [facility]-C [facility]. kb 16:31 Sathish Mckeon MD is Attending Physician. kb 16:34 Triage completed. ll1 16:34 pt daughter..........[phone]. bd 16:36 Ofe Brasher, RN is Primary Nurse. cm10 16:48 SARS-COV-2 RT PCR Sent. cm10 16:48 Strep Sent. cm10 16:48 Flu Sent. cm10 17:07 Arm band placed on. cm10 17:08 Patient has correct armband on for positive identification. Bed in low position. Call cm10 light in reach. Side rails up X2. Pulse ox on. NIBP on. 18:21 No provider procedures requiring assistance completed. Patient did not have IV access cm10 during this emergency room visit. Administered Medications: No medications were administered Medication: 17:08 VIS not applicable for this client. cm10 Outcome: 17:53 Discharge ordered by MD. sellers 18:22 Discharged to home ambulatory. cm10 18:22 Condition: stable 18:22 Discharge instructions given to patient, family, Instructed on discharge instructions, follow up and referral plans. 18:52 Patient left the ED. cm10 Signatures: Clementine Ruggiero, LEANDRA-C SHOT COAT TENDER-Regi Echols Brian RN RN bp Lloyd Perez, RN RN ll1 Ofe Brasher RN RN cm10 Corrections: (The following items were deleted from the chart) 16:36 16:31 Pulse 90bpm; Resp 17bpm; Pulse Ox 95% RA; Temp 98.9F Oral; Pain 3/10, Adult; ll1 ll1
[2022-08-24 19:02] VITALS: TEMP 98.9
[2022-08-24 19:05] VITALS: BP 134/69; O2SAT 94
== END 2022-08-24 18:52 | disposition home or self-care (01) ==
LOC: ER 16:29
DX: U07.1 COVID-19 (principal); I10 Essential (primary) hypertension; Z95.2 Presence of prosthetic heart valve; Z88.8 Allergy status to other drugs, medicaments and biological substances
CPT/HCPCS: 87070; 87081; 87635; 87804